=== PATIENT | female | born 1995 | race Caucasian/White ===

== ENCOUNTER 2022-12-20 09:00 | Outpatient (OUT) | payer MEDICAID, SELFPAY ==
--- NOTE | 2022-12-20 09:02 | US_ITS ---
[place] [id number] Patient Name: JADEN VELÁSQUEZ MRN: [id number] date: 1995 Sex: F Assigned Patient Location: Current Patient Location: LAB Accession/Order Number: [id number] Exam Date: 12/20/2022 09:03 Report Date: 12/20/2022 20:14 At the request of: ODILON ARNETT Procedure: US OB transvaginal EXAMINATION: US OB transvaginal HISTORY: MISSED MENSES COMPARISON: No relevant comparison available. FINDINGS: GESTATIONAL SAC: Present and normal appearing x2. YOLK SAC: Present and normal appearing x2. POLE: Present and normal appearing x2. CARDIAC: Present x2. UTERUS: Normal size and appearance. OVARIES: Right: Normal. Left: Normal. CERVIX: 4.1 cm in length and closed. CUL-DE-SAC: Normal. OTHER: None. AGE BY LMP: 9 weeks 1 day ANNAMARIA BY LMP: 07/24/2023 AGE BY US CRL: Baby 1: 9 weeks 0 days Baby 2: 9 weeks 0 days ANNAMARIA BY US CRL: Baby 1: 07/25/2023 Baby 2: 07/25/2023 US/US OB transvaginal IMPRESSION: 1. Live twin intrauterine . Electronically authenticated by: COURTNEY LUGO Date: 12/20/2022 20:14
== END 2022-12-20 09:01 | disposition home or self-care (01) ==
LOC: US 09:00
PROVIDERS: Visit Provider Obstetrics & Gynecology
DX: O30.001 Twin pregnancy, unspecified number of placenta and unspecified number of amniotic sacs, first trimester (principal); Z3A.09 9 weeks gestation of pregnancy
CPT/HCPCS: 76817

== ENCOUNTER 2022-12-20 10:34 | Outpatient (OUT) | payer MEDICAID, SELFPAY ==
[2022-12-20 11:33] LABS: Estimated Average Glucose 88 mg/dL; Glycohemoglobin A1C 4.7 % (4.5-6.2)
[2022-12-20 11:47] LABS: Thyroid Stimulating Hormone 1.226 uIU/mL (0.358-3.740)
[2022-12-20 12:17] LABS: Basophils Percent Auto 0.4 % (0.2-2.0); Eosinophils Absolute Auto 0.1 10^3/uL (0.0-0.7); Eosinophils Percent Auto 0.8 % (0.9-7.0); Hematocrit 39.3 % (36.0-48.0); Hemoglobin 12.6 g/dL (12.0-16.0); Immature Granulocytes Abs Auto 0.03 10^3/uL (0.00-0.03); Immature Granulocytes Pct Auto 0.3 % (0.0-0.5); Lymphocytes Absolute Auto 1.8 10^3/uL (1.2-3.8); Lymphocytes Percent Auto 19.7 % (20.5-60.0); Mean Corpuscular HGB Conc 32.1 g/dL (29.9-35.2); Mean Corpuscular Hemoglobin 28.4 pg (26.7-34.0); Mean Corpuscular Volume 88.5 fL (81.0-99.0); Mean Platelet Volume 10.2 fL (9.5-13.5); Monocytes Absolute Auto 0.6 10^3/uL (0.3-0.8); Monocytes Percent Auto 6.4 % (1.7-12.0); Neutrophils Absolute Auto 6.5 10^3/uL (1.4-6.5); Neutrophils Percent Auto 72.4 % (43.0-75.0); Platelet Count 280 10^3/uL (150-450); Red Blood Count 4.44 10^6/uL (4.20-5.40); Red Cell Distribution Width 13.2 % (11.0-15.0); White Blood Count 8.9 10^3/uL (4.0-11.0)
[2022-12-21 06:10] LABS: Rubella Antibodies, IgG 1.96 index (Immune >0.99)
[2022-12-21 07:08] LABS: HBsAg Screen Negative (Negative); HCV Ab Non Reactive (Non Reactive); HIV Ab/p24 Ag Screen Non Reactive (Non Reactive)
[2022-12-21 10:11] LABS: Rapid Plasma Reagin, Quant Non Reactive titer (NonRea<1:1)
== END 2022-12-20 10:35 | disposition home or self-care (01) ==
LOC: LAB 10:36
PROVIDERS: Visit Provider Obstetrics & Gynecology
DX: O30.001 Twin pregnancy, unspecified number of placenta and unspecified number of amniotic sacs, first trimester (principal); Z3A.09 9 weeks gestation of pregnancy; N92.6 Irregular menstruation, unspecified
CPT/HCPCS: 36415; 76817; 83036; 84443; 85025; 86592; 86762; 86803; 86850; 86900; 86901; 87086; 87340; 87389

== ENCOUNTER 2022-12-26 09:44 | Outpatient (OUT) | payer MEDICAID, SELFPAY | END 2022-12-26 09:45 | disposition home or self-care (01) | LOC: LAB 09:46 | PROVIDERS: Visit Provider Obstetrics & Gynecology | DX: Z36.0 Encounter for antenatal screening for chromosomal anomalies (principal) | CPT/HCPCS: 36415 ==

== ENCOUNTER 2022-12-31 16:17 | Emergency (ER) | payer MEDICAID, SELFPAY ==
[2022-12-31 16:26] VITALS: BP 139/81; PULSE 81; RESP 20; TEMP 36.8; O2SAT 99; BMI 33.2
--- NOTE | 2022-12-31 17:12 | US_ITS ---
The [address] [address] Patient Name: JADEN VELÁSQUEZ MRN: [id number] date: 1995 Sex: F Assigned Patient Location: ER Current Patient Location: ER Accession/Order Number: [id number] Exam Date: 12/31/2022 17:40 Report Date: 12/31/2022 18:51 At the request of: HO BELTRAN Procedure: US OB transvaginal EXAM: US OB transvaginal HISTORY: . , lower abdominal pain . COMPARISON: 12/20/2022 FINDINGS: Transvaginal scanning was performed. There is evidence of a 20 . There are 2 gestational sacs noted. Within one gestational sac there is a yolk sac and pole noted with a heart rate of 167. There appears to be a normal amount of amniotic fluid. Estimated gestational age by today's ultrasound is 10 weeks 5 days. Within the second gestational sac there is a pole and yolk sac noted with a heart rate of 165. As a normal amount of fluid present. Estimated gestational age is 10 weeks 3 days. Right ovary measures 2.3 x 1.7 x 1.4 cm. No masses are noted. Left ovary was not identified. The cervix is closed and measures 4 cm. US/US OB transvaginal IMPRESSION: 1. Twin with twin 8 demonstrating a heart rate of 167 and a estimated gestational age of 10 weeks 5 days. Twin B demonstrates a heart rate of 165 with an estimated gestational age of 10 weeks 3 days. 2. Normal-appearing right ovary. 3. Left ovary was not identified. Electronically authenticated by: JAMEEL ANGELES Date: 12/31/2022 18:51
--- NOTE | 2022-12-31 17:15 | ED.PREGNANC1 ---
HPI - General Chief complaint: Abdominal Pain Stated complaint: issues under 20-weeks Time Seen by Provider: 12/31/22 17:08 Source: patient Mode of arrival: walk-in Limitations: no limitations History of Present Illness HPI Narrative: Patient is A2 female who is about 10 weeks . LMP 10/20/2022. She saw Dr Adames in the office and had an US that showed twin IUP. She now presents with lower abdominal pain - cramping near the pelvis anteriorly - that began about 2 hours ago. No fall or injury. No urinary symptoms. No fever or chills. She took Zofran 8mg orally for nausea and some Tums - she had gastric sleeve surgery previously and gets acid reflux. Of note, she had Cholecystectomy about 3 months ago. Related Data Previous Rx's Medication Instructions Recorded promethazine 25 mg tablet 25 mg PO Q6H PRN nausea and 12/31/22 vomiting #30 tabs Allergies Allergy/AdvReac Type Severity Reaction Status Date / Time No Known Drug Allergies Allergy Verified 12/31/22 16:32 PFSH PFSH Social History Smoking status: Former smoker Exam Narrative Exam Narrative: Nurses notes and vital signs reviewed and patient is not hypoxic. afebrile General: Well-appearing and in no apparent distress. Skin: Warm, dry, no pallor noted. Eye: Pupils are equal, round and EOMI. No scleral icterus. Cardiovascular: Regular Rate and Rhythm without murmur, gallop or rub. Respiratory: No accessory muscle use or respiratory distress. Lungs are clear to auscultation, no wheezing, rales or rhonchi Back: No CVA tenderness Musculoskeletal: normal ROM, no calf or popliteal tenderness, no lower extremity edema/swelling GI: Abdomen is soft, non-distended. Normal bowel sounds. No abdominal masses appreciated. Diffuse suprapubic and lower abdominal tenderness. No adnexal tenderness or masses noted. No tenderness to palpation. No rebound, guarding, or rigidity noted. Neurological: A&O x4. No cranial nerve dysfunction observed. No truncal ataxia. Moves all extremities. Sensation intact. Psychiatric: Cooperative and interactive. Normal mood and affect. Constitutional Vital Signs, click to edit/add: Last Vital Signs Temp 98.2 F 12/31/22 16:26 Pulse 81 12/31/22 16:26 Resp 20 12/31/22 16:26 BP 139/81 12/31/22 16:26 Pulse Ox 99 12/31/22 16:26 O2 Del Method Room Air 12/31/22 16:26 Course Vital Signs Vital signs: Vital Signs Temperature 98.2 F 12/31/22 16:26 Pulse Rate 81 12/31/22 16:26 Respiratory Rate 20 12/31/22 16:26 Blood Pressure 139/81 12/31/22 16:26 Pulse Oximetry 99 12/31/22 16:26 Oxygen Delivery Method Room Air 12/31/22 16:26 Temperature 98.2 F 12/31/22 16:26 Pulse Rate 81 12/31/22 16:26 Respiratory Rate 20 12/31/22 16:26 Blood Pressure 139/81 12/31/22 16:26 Pulse Oximetry 99 12/31/22 16:26 Oxygen Delivery Method Room Air 12/31/22 16:26 MDM - OB/Uterine Contractions MDM Narrative Medical decision making narrative: Approx 10 week female with twin gestation prestns for lower abdominal pain/pelvic pain that began about 2 hours [employer]. Urine obtained and sent for testing. US pelvis obtained. Patient given Tylenol for pain. The US tech and I discussed and she saw twin IUP, normal HR, no bleeding or any other abnormalities. UA negative. Patient informed of results and given reassurance. She was instructed to take Tylenol for pain and call Dr Adames for follow up. She still had some nausea and was given Phenergan in the ED and prescribed the same to take at home. She already has Zofran and was told she could take that at home as well. Tylenol only recommended for the pain. Lab Data Attestation: I reviewed the patient's lab results. Labs: Lab Results 12/31/22 Range/Units 17:14 Urine Color Yellow (YELLOW) Urine Clarity Clear (CLEAR) Urine pH 6.0 (5.0-9.0) Ur Specific [place] >=1.030 A (1.005-1.025) Urine Protein Negative (NEG/TRACE) mg/dL Urine Glucose (UA) Negative (NEGATIVE) mg/dL Urine Ketones Negative (NEGATIVE) mg/dL Urine Occult Blood Negative (NEGATIVE) Urine Nitrite Negative (NEGATIVE) Urine Bilirubin Negative (NEGATIVE) Urine Urobilinogen 0.2 (0.2-1.0) EU/dL Ur Leukocyte Esterase Negative (NEGATIVE) Imaging Data US OB transvag: My impression: discussed with US tech - twin gestation with expected cardiac activity and no abnormalities. Radiologist's impression: Patient Name: JADEN VELÁSQUEZ MRN: [id number] date: 1995 Sex: F Assigned Patient Location: ER Current Patient Location: ER Accession/Order Number: [id number] Exam Date: 12/31/2022 17:40 Report Date: 12/31/2022 18:51 At the request of: HO BELTRAN Procedure: US OB transvaginal EXAM: US OB transvaginal HISTORY: . , lower abdominal pain . COMPARISON: 12/20/2022 FINDINGS: Transvaginal scanning was performed. There is evidence of a 20 . There are 2 gestational sacs noted. Within one gestational sac there is a yolk sac and pole noted with a heart rate of 167. There appears to be a normal amount of amniotic fluid. Estimated gestational age by today's ultrasound is 10 weeks 5 days. Within the second gestational sac there is a pole and yolk sac noted with a heart rate of 165. As a normal amount of fluid present. Estimated gestational age is 10 weeks 3 days. Right ovary measures 2.3 x 1.7 x 1.4 cm. No masses are noted. Left ovary was not identified. The cervix is closed and measures 4 cm. IMPRESSION: 1. Twin with twin 8 demonstrating a heart rate of 167 and a estimated gestational age of 10 weeks 5 days. Twin B demonstrates a heart rate of 165 with an estimated gestational age of 10 weeks 3 days. 2. Normal-appearing right ovary. 3. Left ovary was not identified. Electronically authenticated by: JAMEEL ANGELES Date: 12/31/2022 18:51 Discharge Plan Discharge Chief Complaint: Abdominal Pain Clinical Impression: Twin gestation in first trimester, Abdominal pain affecting Patient Disposition: Home, Self-Care Time of Disposition Decision: 18:52 Prescriptions / Home Meds: New promethazine 25 mg tablet 25 mg PO Q6H PRN (Reason: nausea and vomiting) Qty: 30 0RF Instructions: Abdominal Pain in (ED) Stand Alone Forms: Portal Instructions Referrals: Physician,Non-Staff, MD [Primary Care Provider] - 1 week
[2022-12-31] MEDS: ACETAMINOPHEN 500 MG TABLET 1000 MG PO (17:18)
[2022-12-31 17:53] LABS: Bilirubin Urine NEGATIVE (NEGATIVE); Blood Urine NEGATIVE (NEGATIVE); Clarity Urine CLEAR (CLEAR); Color Urine YELLOW (YELLOW); Glucose Urine UA NEGATIVE (NEGATIVE); Ketones Urine NEGATIVE (NEGATIVE); Leukocyte Esterase Urine NEGATIVE (NEGATIVE); Nitrite Urine NEGATIVE (NEGATIVE); Protein Urine NEGATIVE (NEG/TRACE); Specific Gravity Urine >=1.030 (1.005-1.025); Urobilinogen Urine 0.2 EU/dL (0.2-1.0)
[2022-12-31 17:54] LABS: Urine Microscopic Indicated NO
[2022-12-31] MEDS: PROMETHAZINE HCL 25 MG TABLET PO (19:09)
== END 2022-12-31 19:23 | disposition home or self-care (01) ==
PROVIDERS: Emergency Provider Emergency Medicine
DX: O26.891 Other specified pregnancy related conditions, first trimester (principal); R10.9 Unspecified abdominal pain; O30.001 Twin pregnancy, unspecified number of placenta and unspecified number of amniotic sacs, first trimester; Z3A.10 10 weeks gestation of pregnancy; Z87.891 Personal history of nicotine dependence; Z90.49 Acquired absence of other specified parts of digestive tract
CPT/HCPCS: 76817; 81003; 99284

== ENCOUNTER 2023-02-05 20:21 | Outpatient (REF) | payer MEDICAID, SELFPAY ==
--- OUTSIDE RECORDS SUMMARY | 2023-02-05 20:34 | XMS_ITS | CCD ---
Author Name Unknown Address [address] [place] [address] Organization [facility] Care Team Providers Care Ammunition Specialist Name Role Phone Neo Anderson Unavailable Unavailable Neo Anderson Unavailable Unavailable Jose Maria Santoyo MD, [facility] Primary Care Provider DENA OKEEFEIS E Referring Unavailable JOSE MARIA SANTOYO, STEPHANE Primary Care Unavailabl e SARY CYN Referring Unavailable JOSE MARIA SANTOYO, [facility] Primary Care Unavailabl e IKE ORTIZ Referring Unavailable [facility] Primary Care Unavailabl e Gintalfredo, Ale Unavailable Provider, None Primary Care Unavailable Nuno Werner Attending Unavailable Nuno Werner Admitting Unavailable REQUEST, NONE LISTED Primary Care Unavaila ble WEST, DR JAMEEL Stern Consulting Unavailable WEST, DR JAMEEL Stern Admitting Unavailable WEST, DR JAMEEL Stern Attending Unavailable WEST, DR JAMEEL Stern Consulting Unavailable REQUEST, NONE LISTED Primary Care Unavaila ble WEST, DR JAMEEL Stern Admitting Unavailable WEST, DR JAMEEL Stern Attending Unavailable WEST, DR JAMEEL Stern Attending Unavailable REQUEST, NONE LISTED Primary Care Unavaila ble WEST, DR JAMEEL Stern Consulting Unavailable WEST, DR JAMEEL Stern Admitting Unavailable ZIEBROGERIO, DR COURTNEY Rucker Consulting Unavailable REQUEST, NONE LISTED Primary Care Unavaila ble AUBREY, DR JAMEEL Stern Consulting Unavailable WEST, DR JAMEEL Stern Admitting Unavailable WEST, DR JAMEEL Stern Attending Unavailable WEST, DR JAMEEL Stern Attending Unavailable REQUEST, NONE LISTED Primary Care Unavaila ble WEST, DR JAMEEL Stern Consulting Unavailable WEST, DR JAMEEL Stern Admitting Unavailable ZIEBER, DR COURTNEY Rucker Consulting Unavailable WEST, DR JAMEEL Stern Attending Unavailable REQUEST, NONE LISTED Primary Care Unavaila ble WEST, DR JAMEEL Stern Consulting Unavailable WEST, DR JAMEEL Stern Admitting Unavailable Shields, Ale L Admitting Unavailable Ale Shields Attending Unavailable NO FAMILY, PHYSICIAN Primary Care Unavailable LAURA Shields Attending Provider [phone] Ale Shields Unavailable PATRICIA CURRY Attending Unavailable PATRICIA CURRY Admitting Unavailable MARGOT TOURE Primary Care Unavailable WillowLilia Unavailable MARGOT TOURE Attending Unavailable NIGEL ADAMES Attending Unavailable Margot Toure DO Primary Care Provider [phone] Allergies Allergy Classification Reported Allergen(s) Allergy Type Date of Onset Reaction(s) Facility (1 source) Ibuprofen Drug Allergy 09-19-2021 [facility] Medications Current Medications Medication Drug Class(es) Dates Sig (Normalized) Sig (Original) acetaminophen 325 mg / oxyCODONE hydrochloride 5 mg oral tablet (2 sources) Opioid Agonist Start: 05-16-2021 End: 05-23-2021 take 1 tablet by mouth every six hours as needed for pain oxyCODONE-acetami nophen (PERCOCET) 5-325 MG per tablet Indications: Post-op pain Take 1 tablet by mouth every 6 hours as needed for Pain for up to 7 days. 28 tablet 0 05/16/2021 05/23/2021 Active Start: 05-16-2021 oxyCODONE-acet aminophen (PERCOCET) 5-325 MG per tablet 1 tablet albuterol 0.833 mg/ml / ipratropium bromide 0.167 mg/ml inhalation solution (1 source) Anticholinergic, beta2-Adrenergic Agonist Start: 05-16-2021 ipratropium-albuterol (DUONEB) nebulizer solution 1 ampule amoxicillin 875 mg / clavulanate 125 mg oral tablet (1 source) Penicillin-class Antibacterial Start: 10-12-2022 take 1 tablet by mouth every twelve hours Amoxicillin-Pot Clavulanate 875-125 MG 1 tablet Orally every 12 hrs for 10 day(s) Oct, Active B-12 1000 MCG (1 source) take 1 tablet under the tongue once daily B-12 1000 MCG 1 tablet under the tongue and allow to dissolve Sublingual Once a day Active busPIRone hydrochloride 10 mg oral tablet (8 sources) Start: 06-06-2020 take 1 tablet by mouth three times daily busPIRone (BUSPAR) 10 MG tablet Take 10 mg by mouth 3 times daily 0 06/06/2020 Active take 1 tablet by mouth once sandeep y busPIRone (BUSPAR) 30 mg tablet 1 tablet Orally daily 0 Active BuSpar Active Calcium Carbonate / vitamin D3 (1 source) calcium carbonate/vitamin D3 (CALCIUM WITH VITAMIN D ORAL) Take by mouth. 0 Active calcium chloride 0.0014 meq/ml / potassium chloride 0.004 meq/ml / sodium chloride 0.103 meq/ml / sodium lactate 0.028 meq/ml injectable solution (3 sources) Start: 2021 lactated ringers infusion copper 313 mg drug implant (2 sources) Copper-containing Intrauterine Device Paragard Intrauterin e Copper IUD 1 each by IntraUTERine route once 0 Active cyclobenzaprine hydrochloride 10 mg oral tablet (2 sources) Muscle Relaxant Start: 2021 End: 2021 take 1 tablet by mouth three times daily as needed for muscle spasms cyclobenzaprine (FLEXERIL) 10 MG tablet Take 1 tablet by mouth 3 times daily as needed for Muscle spasms 21 tablet 0 05/16/2021 05/26/2021 Active 12 hr dextromethorphan hydrobromide 30 mg / guaiFENesin 600 mg extended release oral tablet (1 source) Uncompetitive B-nitrrr-Z-aspartate Receptor Antagonist, Sigma-1 Agonist Start: 2021 take 1 tablet by mouth every twelve hours as needed dextromethorphan-guaiFE Nesin (MUCINEX DM) 30-600 mg tablet extended release 12 hr Take 1 tablet by mouth every 12 (twelve) hours as needed (cough and congestion). 28 each 0 01/14/2022 Active dextromethorphan hydrobromide 30 mg / pyrilamine maleate 30 mg oral tablet (1 source) Uncompetitive S-yvdjwl-S-aspartate Receptor Antagonist, Sigma-1 Agonist Start: 2020 take 1 tablet by mouth every eight hours [place] DMT 30-30 MG 1 tablet Orally every 8 hours for 7 days Nov, Active diphenhydrAMINE hydrochloride 25 mg oral capsule (1 source) Histamine-1 Receptor Antagonist take 1 capsule by mouth once daily as needed for sleep diphenhydrAMINE (BENADRYL) 25 mg capsule Take 1 capsule (25 mg total) by mouth nightly as needed for sleep. 0 Active doxylamine succinate 25 mg oral tablet (1 source) Start: 2022 take 1 tablet by mouth once daily as needed for sleep doxylamine (UNISOM) 25 mg tablet Take 1 tablet (25 mg total) by mouth nightly as needed for sleep. 30 tablet 0 01/03/2023 Active 0.4 ml enoxaparin sodium 100 mg/ml prefilled syringe (1 source) Low Molecular Weight Heparin Start: 2021 End: 2021 enoxaparin (LOVENOX) 40 MG/0.4ML injection Inject 0.4 mLs into the skin 2 times daily for 14 days 11.2 mL 0 05/16/2021 05/30/2021 Active famotidine 20 mg oral tablet (3 sources) Histamine-2 Receptor Antagonist Start: 2021 take 1 tablet by mouth in the morning, then take 1 tablet by mouth at bedtime famotidine (PEPCID) 20 mg tablet Take 1 tablet (20 mg total) by mouth in the morning and 1 tablet (20 mg total) before bedtime. 20 tablet 0 01/26/2022 Active Start: 05-16-2021 take 1 tablet by tatiana th twice daily famotidine (PEPCID) 20 MG tablet Take 1 tablet by mouth 2 times daily 60 tablet 0 05/16/2021 Active Start: 05-16-2021 famotidine (PE PCID) tablet 20 mg ferrous sulfate 325 mg oral tablet (3 sources) Start: 07-28-2020 take 1 tablet by mouth once daily at breakfast ferrous sulfate (IRON 325) 325 (65 Fe) MG tablet Indications: Low iron Take 1 tablet by mouth daily (with breakfast) 90 tablet 1 07/28/2020 Active fluticasone propionate 0.05 mg/actuat metered dose nasal spray (3 sources) Corticosteroid Start: 01-14-2022 take 1 spray(s) nasal route in the morning fluticasone propionate (FLONASE) 50 mcg/actuation nasal spray Administer 1 spray into each nostril in the morning. 16 g 0 01/14/2022 Active Start: 09-13-2019 take 1 spray(s) nasa l route once daily Flonase Allergy Relief 50 MCG/ACT 1 spray in each nostril Nasally Once a day for 14 day(s) Nov, Active gabapentin 100 mg oral capsule (1 source) Anti-epileptic Agent Start: 05-16-2021 gabapenti n (NEURONTIN) capsule 100 mg 1 ml heparin sodium, porcine 5000 unt/ml prefilled syringe (2 sources) Unfractionated Heparin, Anti-coagulant Start: 05-16-2021 End: 05-16-2021 heparin (porcine) injection 5,000 Units 1 ml HYDROmorphone hydrochloride 1 mg/ml cartridge (3 sources) Opioid Agonist Start: 05-16-2021 HYDROmorphone (DILAUDID) injection 1 mg Start: 05-16-2021 End: 05-16-2021 HYDROmorphone (DILAUDID) 1 M G/ML injection Start: 05-16-2021 End: 05-16-2021 HYDROmorphone (DILAUDID) inj ection 0.5 mg hydrOXYzine hydrochloride 25 mg oral tablet (7 sources) Antihistamine Start: 04-24-2021 take 1 tablet by mouth three times daily as needed hydrOXYzine (ATARAX) 25 mg tablet Take 1 tablet (25 mg total) by mouth 3 (three) times a day as needed. 0 04/24/2021 Active Start: 03-27-2020 take 1 tablet by tatiana th every eight hours as needed hydrOXYzine (ATARAX) 25 MG tablet Take 25 mg by mouth every 8 hours as needed 0 03/27/2020 Active hydrOXYzine HCl Active Iron (2 sources) Iron Active lactobacillus acidophilus [id number] unt / pectin 100 mg oral tablet (1 source) acidophilus-pect in, citrus 25 million cell -100 mg tablet Take by mouth 3 (three) times a day with meals. 0 Active metFORMIN hydrochloride 500 mg oral tablet (1 source) Biguanide Start: 022 take 1 tablet by mouth twice daily metFORMIN (GLUCOPHAGE) 500 MG tablet Take 500 mg by mouth 2 times daily 0 03/12/2021 Active MULTIVITAMIN ORAL (1 source) MULTIVITAMIN ORA L Take 1 tablet by mouth. 0 Active Multivitamin preparation (3 sources) Multi Vitamin Ac tive nitrofurantoin, macrocrystals 25 mg / nitrofurantoin, monohydrate 75 mg oral capsule (1 source) Nitrofuran Antibacterial Start: take 1 capsule by mouth every twelve hours Macrobid 100 MG 1 capsule with food Orally every 12 hrs for 7 day(s) Jan, Active ondansetron 4 mg disintegrating oral tablet (2 sources) Serotonin-3 Receptor Antagonist Start: 022 take 1 tablet by mouth every eight hours as needed for nausea ondansetron ODT (ZOFRAN ODT) 4 mg disintegrating tablet Dissolve 1 tablet (4 mg total) on tongue every 8 (eight) hours as needed for nausea for up to 10 doses. 10 tablet 0 01/26/2022 Active Start: 05-16-2021 ondansetron (Z OFRAN) injection 4 mg pantoprazole 40 mg delayed release oral tablet (1 source) Proton Pump Inhibitor take 1 tablet by mouth in the morning pantoprazole (PROTONIX) 40 mg EC tablet Take 1 tablet (40 mg total) by mouth in the morning. 0 Active predniSONE 20 mg oral tablet (1 source) Start: 10-13-19 23 take 1 tablet by mouth every twelve hours predniSONE 20 MG 1 tablet Orally bid for 5 day(s) Oct, Active promethazine hydrochloride 25 mg oral tablet (3 sources) Phenothiazine Start: 05-17-19 22 End: 05-25-19 22 take 1 tablet by mouth four times daily as needed for nausea promethazine (PHENERGAN) 25 MG tablet Take 1 tablet by mouth 4 times daily as needed for Nausea 30 tablet 0 05/16/2021 05/24/2021 Active Start: 05-16-2021 promethazine ( PHENERGAN) tablet 25 mg take 1 tablet by tatiana th every six hours as needed for nausea and vomiting promethazine (PHENERGAN) 25 mg tablet Take 1 tablet (25 mg total) by mouth every 6 (six) hours as needed for nausea or vomiting. 0 Active pyridoxine hydrochloride 25 mg oral tablet (1 source) Start: 01-03-2023 take 1 tablet by mouth three times daily as needed pyridoxine, vitamin B6, (B-6) 25 mg tablet Take 1 tablet (25 mg total) by mouth 3 (three) times a day as needed (T.i.d. p.r.n. for nausea and vomiting). 60 tablet 0 01/03/2023 Active 72 hr scopolamine 0.0139 mg/hr transdermal system (1 source) Anticholinergic Start: 05-19-2021 scopolamine (TRANSDERM-SCOP) transdermal patch 1 patch Start: 05-19-2021 scopolamine (T RANSDERM-SCOP) transdermal patch 1 patch 5 ml sodium chloride 9 mg/ml injection (3 sources) Start: 05-16-2021 sodium chlorid e flush 0.9 % injection 5-40 mL Start: 05-16-2021 0.9 % sodium c hloride infusion vitamin b12 0.5 mg oral tablet (1 source) Vitamin B12 take 1 tablet by mouth in the morning cyanocobalamin 500 MCG tablet Take 1 tablet (500 mcg total) by mouth in the morning. 0 Active Zinc (1 source) take 1 tablet by mouth in the morning zinc 50 mg tablet tablet Take 1 tablet (50 mg total) by mouth in the morning. 0 Active zinc gluconate 50 mg oral tablet (1 source) take 1 tablet by mouth every twenty-four hours Zinc 50 MG 1 tablet Orally Once a day Active Completed/Discontinued Medications Medication Drug Class(es) Dates Sig (Normalized) Sig (Original) amoxicillin 875 mg oral tablet (1 source) Penicillin-class Antibacterial Start: 09-13-2019 take 1 tablet by mouth every twelve hours Amoxicillin 875 MG 1 tablet Orally every 12 hrs for 7 days Sep, Not-Taking ceFAZolin (ANCEF) 3000 mg in sterile water 30 mL IV syringe (1 source) Start: 05-16-2021 End: 05-17-2021 ceFAZolin (ANCEF) 3000 mg in sterile water 30 mL IV syringe 1 ml ketorolac tromethamine 30 mg/ml cartridge (1 source) Nonsteroidal Anti-inflammatory Drug, Cyclooxygenase Inhibitor Start: 05-17-2021 End: 05-17-2021 ketorolac (TORADOL) injection 30 mg 2 ml metoclopramide 5 mg/ml prefilled syringe (1 source) Dopamine-2 Receptor Antagonist Start: 05-16-2021 End: 05-16-2021 metoclopramide (REGLAN) injection 10 mg Vit-Fe Fumarate-FA (M-VIT PO) (1 source) End: 05-02-2021 Vit-Fe Fumarate-FA (M-VIT PO) Take 1 tablet by mouth 0 05/02/2021 Discontinued (LIST CLEANUP) valACYclovir 1000 mg oral tablet (1 source) Herpesvirus Nucleoside Analog DNA Polymerase Inhibitor, Herpes Simplex Virus Nucleoside Analog DNA Polymerase Inhibitor, Herpes Zoster Virus Nucleoside Analog DNA Polymerase Inhibitor Start: 02-15-2021 End: 05-02-2021 valACYclovir (VALTREX) 1 g tablet Problems Active Problems Problem Classification Problem Date Documented Da te Episodic/Chronic Anxiety disorders (5 sources) Anxiety; Translations: [Anxiety disorder, unspecified] Onset: 1 06-28-2020 Chronic Biliary tract disease (1 source) Calculus of gallbladder without cholecystitis without obstruction; Translations: [Calculus of gallbladder without cholecystitis without obstruction] Onset: 3 Episodic Chronic obstructive pulmonary disease and bronchiectasis (1 source) Bronchitis, not specified as acute or chronic Episodic Esophageal disorders (4 sources) Gastroesophageal reflux disease without esophagitis; Translations: [Gastro-esophageal reflux disease without esophagitis] Onset: 1 06-28-2020 Chronic Genitourinary symptoms and ill-defined conditions (4 sources) Dysuria; Translations: [Dysuria] Onset: 2 Episodic Immunizations and screening for infectious disease (4 sources) Contact with and (suspected) exposure to other viral communicable diseases; Translations: [Contact with and (suspected) exposure to unspecified communicable disease] Onset: 1 Resolved: 1 Episodic Other endocrine disorders (3 sources) Polycystic ovaries; Translations: [Polycystic ovarian syndrome] Chronic Other endocrine disorders (3 sources) Increased androgen level; 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] Chronic Other nervous system disorders (1 source) Postoperative pain ; Translations: [Other acute postprocedural pain] Episodic Other nutritional; endocrine; and metabolic disorders (1 source) Morbid obesity; Translations: [Morbid (severe) obesity due to excess calories] Onset: 1 09-28-2020 Chronic Other nutritional; endocrine; and metabolic disorders (2 sources) Body mass index 40+ - severely obese; Translations: [Morbid (severe) obesity due to excess calories] Onset: 1 09-28-2020 Chronic Other nutritional; endocrine; and metabolic disorders (3 sources) Obese class II; Translations: [Body mass index (BMI) 39.0-39.9, adult] Chronic Other nutritional; endocrine; and metabolic disorders (3 sources) Obesity; Translations: [Obesity, unspecified] Chronic Other screening for suspected conditions (not mental disorders or infectious disease) (3 sources) Serum testosterone level abnormal; Translations: [Other specified abnormal findings of blood chemistry] Episodic Other upper respiratory infections (2 sources) Acute upper respiratory infection, unspecified; Translations: [Acute sinusitis, unspecified] Onset: 1 Resolved: 1 Episodic Phlebitis; thrombophlebitis and thromboembolism (8 sources) Phlebitis and thrombophlebitis of superficial vessels of right lower extremity; Translations: [Phlebitis and thrombophlebitis of superficial vessels of left lower extremity] Onset: 2 Episodic Residual codes; unclassified (5 sources) Obstructive sleep apnea syndrome; Translations: [Obstructive sleep apnea (adult) (pediatric)] Onset: 1 Chronic Residual codes; unclassified (1 source) Acquired absence of other specified parts of digestive tract; Translations: [Acquired absence of other specified parts of digestive tract] Onset: 3 Episodic Substance-related disorders (4 sources) Smoker; Translations: [Nicotine dependence, unspecified, uncomplicated] Onset: 1 06-28-2020 Chronic Varicose veins of lower extremity (4 sources) Varicose veins of bilateral lower extremities with pain; Translations: [VARICOSE VNS JOVANA LOW EXTREM W/PAIN] Onset: 2 Episodic Past or Other Problems Problem Classification Problem Date Documented Da te Episodic/Chronic Blindness and vision defects (1 source) Astigmatism; Translations: [Unspecified astigmatism, unspecified eye] Onset: 04-26-2020 04-26-2020 Episodic Diabetes mellitus without complication (4 sources) Prediabetes; Translations: [Prediabetes] Onset: 06-28-2020 06-28-2020 Episodic Mood disorders (1 source) Mood disorders Onset: 08-17-2018 08-17-2018 Nutritional deficiencies (5 sources) Serum iron low; Translations: [Iron deficiency] Onset: 09-01-2020 09-01-2020 Episodic Other gastrointestinal disorders (3 sources) History of sleeve gastrectomy; Translations: [Bariatric surgery status] Onset: 05-16-2021 Episodic Other infections; including parasitic (2 sources) Personal history of other infectious and parasitic diseases; Translations: [History of COVID-19] Onset: 11-03-2020 11-03-2020 Episodic Residual codes; unclassified (5 sources) H/O: hypertension; Translations: [Personal history of other complications of , childbirth and the puerperium] Onset: 06-28-2020 06-28-2020 Episodic Screening and history of mental health and substance abuse codes (2 sources) History of clinical finding in subject; Translations: [Personal history of nicotine dependence] Onset: 01-02-2021 01-02-2021 Episodic Unclassified (1 source) Cough R05.9 Unclassified (1 source) Onset: 09-19-2021 09-19-2021 Results Test Name Value Interpretation Reference Range Facility Ultrasound - Officeon 2022 Radiology Study observation (narrative) [facility] HIV 1&2 AB/AG Screen (P24 AG )on 12-20-2022 HIV 1&2 AB/AG Non-Reactive [facility] Hepatitis B surface antigeno n 12-20-2022 Hepatitis B Surface Antigen Negative [facility] No Panel Informationon 12-20 [facility] Rubella IGG immune statuson 12-20-2022 Rubella immune IgG 1.96 [facility] Syphilis Total(Unknown Syphi lis Status)on 12-20-2022 Syphilis Non-Reactive [facility] Ultrasound - Officeon 2022 SEE SCANNED REPORt MANUAL LY TRANSCRIBED RESULTS [facility] COVID + FLU Quick Testingon 10-12-2022 SARS-CoV-2 (COVID-19) RNA BECCA+probe Ql (Unsp spec) negtaive [facility] Other COVID + FLU Quick Testing Negative [facility] Other Basic Metabolic Profon 09-11 Anion gap [Moles/Vol] 9 mmol/L Normal 9-17 [facility] Comment on above: Performed By: #### B MP, CBC, PT #### [facility] [address] [place] [address] Spring Maker: Anthony Aguilar MD Calcium [Mass/Vol] 8.8 mg/dL Normal 8.6-10.4 [facility] Comment on above: Performed By: #### B MP, CBC, PT #### [facility] [address] [place] [phone] Spring Maker: Anthony Aguilar MD Chloride [Moles/Vol] 106 mmol/L Normal 98-107 [facility] Comment on above: Performed By: #### B MP, CBC, PT #### [facility] [address] [place] [phone] Spring Maker: Anthony Aguilar MD CO2 [Moles/Vol] 23 mmol/L Normal 20-31 [facility] Comment on above: Performed By: #### B FIFI, CBC, PT #### [facility] [address] [place] [phone] Spring Maker: Anthony Aguilar MD Creatinine [Mass/Vol] 0.7 mg/dL Normal 0.5-0.9 [facility] Comment on above: Performed By: #### B FIFI, CBC, PT #### [facility] [address] [place] [phone] Spring Maker: Anthony Aguilar MD GFR/1.73 sq M.predicted among non-blacks MDRD (S/P/Bld) [Vol rate/Area] mL/min/{1.73_m2} Normal >60 [facility] Comment on above: Result Comment: These results are not intended for use in patients <18 years of age. eGFR results are calculated without a race factor using the 2020 CKD-EPI equation. Careful clinical correlation is recommended, particularly when comparing to results calculated using previous equations. The CKD-EPI equation is less accurate in patients with extremes of muscle mass, extra-renal metabolism of creatine, excessive creatine ingestion, or following therapy that affects renal tubular secretion. Performed By: #### B MP, CBC, PT #### [facility] [address] [place] [address] [place] [address] Spring Maker: Anthony Aguilar MD Glucose [Mass/Vol] 79 mg/dL Normal 70-99 [facility] Comment on above: Performed By: #### B MP, CBC, PT #### [facility] [address] [place] [phone] Spring Maker: Anthony Aguilar MD Potassium [Moles/Vol] 4.1 mmol/L Normal 3.7-5.3 [facility] Comment on above: Performed By: #### B MP, CBC, PT #### [facility] [address] [place] [phone] Spring Maker: Anthony Aguilar MD Sodium [Moles/Vol] 138 mmol/L Normal 135-144 [facility] Comment on above: Performed By: #### B FIFI, CBC, PT #### [facility] [address] [place] [phone] Spring Maker: Anthony Aguilar MD Urea nitrogen [Mass/Vol] 11 mg/dL Normal 6-20 [facility] Comment on above: Performed By: #### B MP, CBC, PT #### [facility] [address] [place] [phone] Spring Maker: Anthony Aguilar MD CBCon 09-11-2022 Erythrocyte distribution width (RBC) [Ratio] 13.2 % Normal 11.8-14.4 [facility] Comment on above: Performed By: #### B MP, CBC, PT #### [facility] [address] [place] [phone] Spring Maker: Anthony Aguilar MD Hematocrit (Bld) [Volume fraction] 41.6 % Normal 36.3-47.1 [facility] Comment on above: Performed By: #### B MP, CBC, PT #### [facility] [address] [place] [phone] Spring Maker: Anthony Aguilar MD Hemoglobin (Bld) [Mass/Vol] 13.3 g/dL Normal 11.9-15.1 [facility] Comment on above: Performed By: #### B MP, CBC, PT #### [address] [address] Spring Maker: Anthony Aguilar MD MCH (RBC) [Entitic mass] 28.3 pg Normal 25.2-33.5 [facility] Comment on above: Performed By: #### B MP, CBC, PT #### [address] [address] Spring Maker: Anthony Aguilar MD MCHC (RBC) [Mass/Vol] 32.0 g/dL Normal 28.4-34.8 [facility] Comment on above: Performed By: #### B FIFI, CBC, PT #### [address] [address] Spring Maker: Anthony Aguilar MD MCV (RBC) [Entitic vol] 88.5 fL Normal 82.6-102.9 [facility] Comment on above: Performed By: #### B FIFI, CBC, PT #### [address] [address] Spring Maker: Anthony Aguilar MD NRBC Automated 0.0 per 100 WBC Normal 0.0 [facility] Comment on above: Performed By: #### B MP, CBC, PT #### [address] [address] Spring Maker: Anthony Aguilar MD Platelet mean volume (Bld) [Entitic vol] 9.7 fL Normal 8.1-13.5 [facility] Comment on above: Performed By: #### B MP, CBC, PT #### [facility] [address] [place] [phone] Spring Maker: Anthony Aguilar MD Platelets (Bld) [#/Vol] 276 10*3/uL Normal 138-453 [facility] Comment on above: Performed By: #### B MP, CBC, PT #### [address] [address] Spring Maker: Anthony Aguilar MD RBC (Bld) [#/Vol] 4.70 10*6/uL Normal 3.95-5.11 [facility] Comment on above: Performed By: #### B MP, CBC, PT #### [address] [address] Spring Maker: Anthony Aguilar MD WBC (Bld) [#/Vol] 7.4 10*3/uL Normal 3.5-11.3 [facility] Comment on above: Performed By: #### B MP, CBC, PT #### [address] [address] Spring Maker: Anthony Aguilar MD PTon 09-11-2022 INR Coag (PPP) [Relative time] 1.0 {INR} Normal [facility] Comment on above: Result Comment: Therapeutic Range: Moderate Anticoagulant Intensity: INR = 2.0-3.0 High Anticoagulant Intensity: INR = 2.5-3.5 Performed By: #### B MP, CBC, PT #### [address] [address] Spring Maker: Anthony Aguilar MD PT Coag (PPP) [Time] 12.9 s Normal 11.7-14.9 [facility] Comment on above: Performed By: #### B MP, CBC, PT #### [address] [address] Spring Maker: Anthony Aguilar MD Surgical Pathologyon 023 Surgical Pathology (NOTE) Path Number: [id number] -- Diagnosis -- GALLBLADDER, CHOLECYSTECTOMY: -CHRONIC CHOLECYSTITIS WITH CHOLESTEROLOSIS AND CHOLELITHIASIS. Jameel Lawler M.D. Electronically Signed Out luis09/12/2022 Clinical Information Pre-op Diagnosis: GALLSTONES Operative Findings: GALLBLADDER Operation Performed: LAPAROSCOPIC CHOLECYSTECTOMY tm Source of Specimen A: GALLBLADDER Gross Description CESILIA WEEMS Received in formalin is a 7.5 x 4.0 x 3.9 cm intact and distended gallbladder. The serosa is green-tinged and smooth, while the adventitia is finely roughened. There is a brown, speckled yellow and finely trabeculated mucosa with an average wall thickness of 0.2 cm. Within the lumen is brown-green, tenacious bile and multiple yellow, slightly bosselated to rough-surfaced choleliths (0.3 to 0.7 cm). No lesions or periductal lymph nodes are identified. Tool Salvage Worker sections 1c. tm Microscopic Description Microscopic examination performed. Processing Lab: [place] [address] Interpretation Performed at [place] [id number] SURGICAL PATHOLOGY CONSULTATION Patient Name: FINA VELÁSQUEZ [facility] Rec: [id number] [facility] ANATOMIC PATHOLOGY [address] [place], [place] [phone] [facility] Urine Cultureon 02-08-2022 Bacteria identified Cx Nom (U) Reason for Exam Dysuria Urine ORGANISM: Escherichia coli (O:ESCCOL) [place] Count >100,000 Aerobic LISA Charge (NMIC56) ---- SUSCEPTIBILITY --- ORGANISM: O:ESCCOL ANTIBIOTIC INTERPRETATION LISA Amikacin S <16 Amoxacillin/K Clavulanate S <8 Ampicillin S <8 Ampicillin/Sulbactam S <4 Aztreonam S <4 Cefazolin S <2 Cefepime S <2 Ceftazidime S <1 Ceftazidime/Avibactam S <4 Ceftolozane/Tazobacta m S <2 Ceftriaxone S <1 Cefuroxime S <4 Ciprofloxacin S <0.25 Ertapenem S <0.5 Gentamicin S <2 Levofloxacin S <0.5 Meropenem S <1 Meropenem/Vaborbactam S <2 Nitrofurantoin S <32 Piperacillin/Tazobact am S <8 Tetracycline S <4 Tobramycin S <2 Trimethoprim/Sulfamet hoxazole S <0.5 S = SUSCEPTIBLE I = INTERMEDIATE R = RESISTANT BLANK = DATA NOT AVAILABLE, OR DRUG NOT ADVISABLE OR TESTED R* = RESISTANCE DUE TO EXTENDED SPECTRUM BETA-LACTAMASES ESBL = EXTENDED SPECTRUM BETA-LACTAMASE TFG = THYMIDINE-DEPENDENT STRAIN ALIN = BETA-LACTAMASE POSITIVE IB = INDUCIBLE BETA-LACTAMASE. APPEARS IN PLACE OF 'S' WITH SPECIES KNOWN TO POSSESS INDUCIBLE BETA-LACTAMASES. POTENTIALLY THEY MAY BECOME RESISTANT TO ALL B-LACTAM DRUGS. PERFORMED BY: [place] [address] PATHOLOGIST SUPERVISOR [employer] SAMIRA WEN M.D. [facility] Comment on above: Performed By: #### C UU #### [address] VC CONSULT FOLLOWUPon 2021 VC CONSULT FOLLOWUP Patient: FINA VELÁSQUEZ Exam Date: 01/08/2022 : 1995 Gender:F Ordering : DR JAMEEL BURGOS M.D. Admission #: [id number] Family : Order #: [id number] CLICK HERE TO VIEW EXAM RADIOLOGY REPORT PROCEDURE: VEIN CENTER CONSULTATION FOLLOWUP VEIN CENTER - OFFICE VISIT FOLLOW UP COMPARISON: VC CONSULT FOLLOWUP, 11/28/2021. PROGRESS NOTES: The patient reports that mild tenderness within left popliteal fossa. Overall improvement in bilateral leg symptoms. There has been interval reduction in varicosities. The patient has followed our recommendations to walk 20-30 minutes once or twice per day since the procedure. Physical exam demonstrates decrease in varicosities of the bilateral legs. Persistent varicosities are identified along the legs bilaterally. Review of the ultrasound performed the same day demonstrates occlusive thrombus extending throughout the treated vein, see separate report, consistent with a successful ablation. No thrombus extending into or beyond the saphenofemoral junction. Patient's insurance did not approve any additional treatments with endovenous laser ablation or microfoam chemical ablation therefore patient will hold off on treatment of remaining dilated, incompetent small saphenous veins bilaterally and branch saphenous varicosities. No additional treatments will be performed at this time. The patient was advised to follow-up with us if left popliteal fossa tenderness persists. IMPRESSION: 1. Successful ablation of the right great saphenous vein 2. Persistent incompetent veins and lower extremity symptoms PLAN: Patient will continue to wear compression stockings, and will return for additional treatment as symptoms progress and with approval of treatment by insurance company. Nurse notes, history and physical were reviewed and confirmed, see attached forms. The nurse was present throughout the physical exam and consultation Dictated by: Courtney Hinton M.D. on 01/08/2022 at 10:05 Approved by: Courtney Hinton M.D. on 01/08/2022 at 10:10 Normal [facility] VC EXT VENOUS RT LIMITEDon 1 03-10-2021 VC EXT VENOUS RT LIMITED Patient: FINA VELÁSQUEZ Exam Date: 01/08/2022 : 1995 Gender:F Ordering : DR JAMEEL BURGOS M.D. Admission #: [id number] Family : Order #: [id number] CLICK HERE TO VIEW EXAM RADIOLOGY REPORT PROCEDURE: VEIN CENTER EXTREMITY VENOUS RIGHT LIMITED COMPARISON: None. INDICATIONS: Phlebitis of superficial veins of lower extremity I80.01 TECHNIQUE: Lower extremity kenyon scale and Duplex Doppler evaluation of the deep venous system from the inguinal ligament through the calf veins. FINDINGS: REGION: Right lower extremity. THROMBI: Negative for DVT. Heat induced thrombus visualized 2.5cm from the SFJ. The heat induced thrombus extends from groin to proximal calf and is patent at mid calf, below the area of insert. COMPRESSIBILITY: Non-compressible segments. FLOW: Areas of no flow. OTHER: CONCLUSION: 1. Successful post ablation occlusion of right great saphenous vein. Dictated by: Courtney Hinton M.D. on 01/08/2022 at 10:04 Approved by: Courtney Hinton M.D. on 01/08/2022 at 10:05 Normal [facility] VC ENDOVENOUS ABL 1ST V RTon 12-31-2021 VC ENDOVENOUS ABL 1ST V RT Patient: FINA VELÁSQUEZ Exam Date: 12/31/2021 : 1995 Gender:F Ordering : DR JAMEEL BURGOS M.D. Admission #: [id number] Family : Order #: [id number] CLICK HERE TO VIEW EXAM RADIOLOGY REPORT PROCEDURE: VEIN CENTER ENDOVENOUS ABLATION FIRST VEIN RIGHT GREAT SAPHENOUS VEIN COMPARISON: None. INDICATIONS: Pain co-occurrent and due to varicose veins of bilateral legs I83.813 OPERATIVE REPORT: The risks and benefits of the procedure had been previously discussed, and were rediscussed at length. Informed written consent was obtained by me and Christopher Zavala assisted. Time out procedure was performed. The right lower extremity was prepared and draped in the usual sterile fashion to allow knee flexion in the sterile field. Duplex ultrasound probe was draped in a sterile cover, sterile transmission gel was used. Venous mapping was performed with the areas of dilation and large tributaries marked. The total length was 46 cm from the entry mid calf to 3 cm below the saphenofemoral junction. The diameter of the greater saphenous vein ranged from 5-9 mm. A 30 gauge needle and 1% buffered lidocaine was used to anesthetize the entry site. A 4 mm incision was made with a scalpel and the saphenous vein was entered percutaneously under direct ultrasound guidance with a micropuncture set, a single stick was successful in gaining access. A micro-guide wire was inserted and the needle removed. A micro-set including a dilator was inserted over the microwire and the needle and dilator were removed. A 0.018 guide wire was inserted through the micro-set and threaded through the saphenous vein to the saphenofemoral junction. The dilator was removed and an introducer sheath was inserted over the wire until the end of the sheath entered the saphenofemoral junction. The dilator and wire were removed and the 600 micron fiber was introduced and placed and positioned so that it extended beyond the sheath and was 3 cm peripheral to the saphenofemoral femoral junction. Final position of the fiber was determined by ultrasound guidance and duplex imaging. Tumescent anesthetic was delivered by ultrasound guidance. 225 cc of fluid was delivered along the entire course of the saphenous vein. The solution consisted of 500 cc of normal saline with 20mL of 1% lidocaine and 10 mL of sodium bicarbonate. A final positioning check was made. The energy source was turned on by means of the foot pedal and the fiber and sheath were withdrawn. The total number of Joules delivered was 2091. The laser was active for 261 seconds under continuous pulse, average laser use of 8 J. Laser start time 10:56 a.m. December 31, 2021. Laser stop time 11:02 a.m. December 31, 2021 A duplex ultrasound revealed compressibility and flow at the saphenofemoral junction immediately after the procedure. Hemostasis at the access site was achieved. The skin incision of the saphenous vein was closed with a 4 x 4. A compression stocking was applied. Postop instructions were given. A follow up appointment was recommended and scheduled. The patient tolerated the procedure well and was discharged in good condition. CONCLUSION: 1. Technically successful endovenous laser ablation of the right great saphenous vein. Dictated by: Jameel Burgos MD on 12/31/2021 at 11:05 Approved by: Jameel Burgos MD on 12/31/2021 at 11:06 Normal [facility] ED Clinical Summaryon 2021 ED Clinical Summary [facility] ? Urgent Care [address] [place] [address] [id number] Clinical Summary PERSON INFORMATION Name: VERNON VELÁSQUEZ Age: 26 Years Sex: FEMALE : 1995 MRN: Acct#: Visit Reason: OTTERBEIN PHYSICAL Arrival: 11/28/2021 10:39:56 Discharge: 11/28/2021 10:59:00 LOS: 000 00:20 Check In: 11/28/2021 10:39:56 Checkout: 11/28/2021 10:59:00 Address: [address] [place] [address] PCP: Provider, None PROVIDER INFORMATION VITALS INFORMATION Vital Sign Triage Latest Temperature Tympanic Temperature Temporal Artery Pulse Rate O2 Sat Respiratory Rate Blood Pressure / / MEDICAL INFORMATION Medications Given: Allergy Information: No known allergies PHYSICIAN DOCUMENTATION DISCHARGE INFORMATION: Discharge Disposition: Eloped Discharge Location: PATIENT EDUCATION INFORMATION Instructions: Follow-Up: DIAGNOSIS: Patient Understands: Comment: Normal [facility] ED Patient Summaryon 022 ED Patient Summary [facility] ? Urgent Care [address] [place] [address] [phone] PATIENT DISCHARGE INSTRUCTIONS Patient Information Name: VERNON VELÁSQUEZ Age: 26 Years Date of : 1995 Reason For Visit: OTTERBEIN PHYSICAL Arrival Time: 11/28/2021 10:39:56 Primary Care Physician: Provider, None Attending Physician: Nuno Bradshaw Comment: Patient Education Medication Information: The exam and treatment you received today in the [facility] Emergency Department were for an urgent problem and are not intended as complete care. It is important for you to follow up with a doctor, nurse practitioner, or physician?s inside sales assistant for ongoing care. If your symptoms become worse or you do not improve as expected and you are unable to reach your usual health care provider, you should return to the Emergency Department, we are available 24 hours a day. For those patients who have received Radiology results, the interpretation of your X-ray as given to you by our Emergency Department physician is only a preliminary report. The Radiologist will review your films and if there is a change in the diagnosis you will be notified by phone. Please make sure you have provided a working phone number so we can reach you if necessary. In the event that you had a lab culture while you were a patient in the Emergency Department, you will be notified by phone if there is a need to change your antibiotic. Please make sure you have provided a working phone number so we can reach you if necessary. [facility] Emergency Department has provided you with a complete list of medications post discharge. Please inform your manufacturing process technician/provider of your visit and for further instruction on these medications. Any specific questions regarding your chronic medications and dosages should be discussed with your primary care physician(s) and/or pharmacist. Visit Information Visit Diagnosis: Diagnoses This Visit No Visit Diagnoses Documented If you received any narcotics, sedation, or any other medication that causes drowsiness for the next 24 hours, unless otherwise directed: ? Do not drive a car. ? Do not operate machinery such as power tools, lawn mowers, drills, sewing machines, or stoves ? Avoid alcoholic beverages and drugs for allergies, nerves, or sleep ? Do not make important personal or business decisions or sign any legal documents Reason for Visit: Allergies: Substance Reaction Symptoms Type Comments No known allergies Drug Vital Signs: Vitals and Measurements this Visit (last charted value for your 11/28/2021 visit) No vitals and measurements documented Problems List: Problem Onset Comments Anxiety Major Tests and Procedures: The following procedures and tests were performed during your ED visit. Laboratory Radiology Cardiology Viruses or Bacteria What?s got you sick? Antibiotics only treat bacterial infections. Viral illnesses cannot be treated with antibiotics. When an antibiotic is not prescribed, ask your healthcare professional for tips on how to relieve symptoms and feel better. Usual Cause Illness Viruses Bacteria Antibiotic Needed Cold/Runny Nose NO Bronchitis/Chest Cold (in otherwise healthy children and adults) NO Whooping Cough Yes Flu NO Strep Throat Yes Sore Throat (except strep) NO Fluid in the middle ear (otitis media with effusion) NO Urinary Tract Infection Yes Antibiotics Aren?t Always the Answer www.cdc.gov/getsmart GET SMART Know When Antibiotics Work [place] Department of Health and Human Services Centers for Disease Control and Prevention October 2013 [facility] VC CONSULT FOLLOWUPon 2021 VC CONSULT FOLLOWUP Patient: FINA VELÁSQUEZ Exam Date: 11/28/2021 : 1995 Gender:F Ordering : DR JAMEEL BURGOS M.D. Admission #: [id number] Family : Order #: [id number] CLICK HERE TO VIEW EXAM RADIOLOGY REPORT PROCEDURE: VEIN CENTER CONSULTATION FOLLOWUP VEIN CENTER - OFFICE VISIT FOLLOW UP COMPARISON: None. PROGRESS NOTES: The patient reports mild tenderness within the left leg and mild bruising which has been improving. There has been interval reduction in varicosities. The patient has followed our recommendations to walk 20-30 minutes once or twice per day since the procedure. Physical exam demonstrates scattered areas of mild bruising. No erythema or infection. Persistent varicosities are identified along the legs bilaterally. Review of the ultrasound performed the same day demonstrates occlusive thrombus extending throughout the treated vein, see separate report, consistent with a successful ablation. No thrombus extending into or beyond the saphenofemoral junction. The patient expressed a desire to proceed with treatment of remaining incompetent saphenous veins and branch saphenous varicosities. The patient was informed that treatment was a process and would require several procedures/sessions. IMPRESSION: 1. Successful ablation of the left great saphenous vein 2. Persistent incompetent veins and bilateral lower extremity symptoms PLAN: Endovenous laser ablation of right great saphenous vein will be performed next. Nurse notes, history and physical were reviewed and confirmed, see attached forms. The nurse was present throughout the physical exam and consultation Dictated by: Courtney Hinton M.D. on 11/28/2021 at 09:45 Approved by: Courtney Hinton M.D. on 11/28/2021 at 10:04 Normal [facility] VC EXT VENOUS LT LIMITEDon 1 VC EXT VENOUS LT LIMITED Patient: FINA VELÁSQUEZ Exam Date: 11/28/2021 : 1995 Gender:F Ordering : DR JAMEEL BURGOS M.D. Admission #: [id number] Family : Order #: [id number] CLICK HERE TO VIEW EXAM RADIOLOGY REPORT PROCEDURE: VEIN CENTER EXTREMITY VENOUS LEFT LIMITED COMPARISON: None. INDICATIONS: Phlebitis and thrombophlebitis of superficial veins of left lower extremity I80.02 TECHNIQUE: Lower extremity kenyon scale and Duplex Doppler evaluation of the deep venous system from the inguinal ligament through the calf veins. FINDINGS: REGION: Left lower extremity. THROMBI: Negative for DVT. Heat-induced thrombus in left GSV 7.0 mm from SFJ and extends to the mid lower leg. COMPRESSIBILITY: Non-compressible segments. FLOW: Areas of no flow. OTHER: Multiple large varicosities remain patent. CONCLUSION: 1. Successful post ablation occlusion of the left great saphenous vein. Dictated by: Courtney Hinton M.D. on 11/28/2021 at 09:36 Approved by: Courtney Hinton M.D. on 11/28/2021 at 09:45 Normal [facility] VC ENDOVENOUS ABL 1ST V LTon 11-22-2021 VC ENDOVENOUS ABL 1ST V LT Patient: FINA VELÁSQUEZ Exam Date: 11/22/2021 : 1995 Gender:F Ordering : DR JAMEEL BURGOS M.D. Admission #: [id number] Family : Order #: [id number] CLICK HERE TO VIEW EXAM RADIOLOGY REPORT PROCEDURE: VEIN CENTER ENDOVENOUS ABLATION FIRST VEIN LEFT GREAT SAPHENOUS VEIN COMPARISON: VC VENOUS REFLUX JOVANA LMT, 10/17/2021. INDICATIONS: Pain co-occurrent and due to varicose veins of bilateral legs I83.813 OPERATIVE REPORT: The risks and benefits of the procedure had been previously discussed, and were rediscussed at length. Informed written consent was obtained by and Christopher villar. Time out procedure was performed. The left lower extremity was prepared and draped in the usual sterile fashion to allow knee flexion in the sterile field. Duplex ultrasound probe was draped in a sterile cover, sterile transmission gel was used. Venous mapping was performed with the areas of dilation and large tributaries marked. The total length was 56 cm from the entry 12 cm above the medial malleolus to 3 cm below the saphenofemoral junction. The diameter of the greater saphenous vein ranged from 4-11 mm. A 30 gauge needle and 1% buffered lidocaine was used to anesthetize the entry site. A 4 mm incision was made with a scalpel and the saphenous vein was entered percutaneously under direct ultrasound guidance with a micropuncture set, a single stick was successful in gaining access. A micro-guide wire was inserted and the needle removed. A micro-set including a dilator was inserted over the microwire and the needle and dilator were removed. A 0.018 guide wire was inserted through the micro-set and threaded through the saphenous vein to the saphenofemoral junction. The dilator was removed and an introducer sheath was inserted over the wire until the end of the sheath entered the saphenofemoral junction. The dilator and wire were removed and the 600 micron fiber was introduced and placed and positioned so that it extended beyond the sheath and was 3 cm peripheral to the saphenofemoral femoral junction. Final position of the fiber was determined by ultrasound guidance and duplex imaging. Tumescent anesthetic was delivered by ultrasound guidance. 350 cc of fluid was delivered along the entire course of the saphenous vein. The solution consisted of 500 cc of normal saline with 20mL of 1% lidocaine and 10 mL of sodium bicarbonate. A final positioning check was made. The energy source was turned on by means of the foot pedal and the fiber and sheath were withdrawn. The total number of Joules delivered was 2646 The laser was active for 350 seconds under continuous pulse, average laser use of 8 J. Laser start time November 22, 2021. Laser stop time November 22, 2021 A duplex ultrasound revealed compressibility and flow at the saphenofemoral junction immediately after the procedure. Hemostasis at the access site was achieved. The skin incision of the saphenous vein was closed with a 4 x 4. A compression stocking was applied. Postop instructions were given. A follow up appointment was recommended and scheduled. The patient tolerated the procedure well and was discharged in good condition. CONCLUSION: 1. Technically successful endovenous laser ablation of the left great saphenous vein. Dictated by: Jameel Burgos MD on 11/22/2021 at 09:00 Approved by: Jameel Burgos MD on 11/22/2021 at 09:04 Normal [facility] VC COMP CONSULTATIONon 10-17 VC COMP CONSULTATION Patient: FINA VELÁSQUEZ Exam Date: 10/17/2021 : 1995 Gender:F Ordering : DR JAMEEL BURGOS M.D. Admission #: [id number] Family : Order #: [id number] CLICK HERE TO VIEW EXAM RADIOLOGY REPORT PROCEDURE: VEIN CENTER CONSULTATION VEIN CENTER - OFFICE VISIT INITIAL COMPARISON: None. PROGRESS NOTES: [age] year old female who presents with a 10 year history of bulging, dilated veins, leg pain and muscle cramping, stinging. The patient's left leg symptoms are worse than the right. There has been a progression of symptoms. This increases with prolonged standing which the patient does for her job. The patient describes an improvement with rest and elevation. The patient denies any signs and symptoms to suggest arterial ischemia. The patient describes a family history varicose veins in mother and grandmother. The patient has drinking and smoking history of occasional alcohol consumption. Patient has a past medical history significant for gastroesophageal reflux disease, obesity, gastric sleeve procedure. The patient denies a history of deep venous thrombus or pulmonary embolus. See separate history and physical for medication list. No prior treatment for varicose or spider veins. Current use of compression stockings. After review of nurse notes, history and physical exam I discussed at length the pathophysiology of venous hypertension and possible treatments, therapies and strategies available. We discussed at length the importance of elevating the lower extremities above the level of the heart, increased physical activity and compression stocking use. Ultrasound venous reflux study performed today was discussed at length with the patient. The report demonstrates abnormally dilated and incompetent bilateral great saphenous vein, bilateral small saphenous vein, and numerous branch saphenous varicosities bilaterally.. PHYSICAL EXAM: The right leg demonstrates superficial varicosities, no significant spider veins, no ulceration, no edema, no skin discoloration. The left leg demonstrates superficial varicosities, no significant spider veins, no ulceration, no edema, no skin discoloration. Both thighs, legs and feet were symmetrically warm to the touch. Good posterior tibial and dorsalis pedis pulses were present bilaterally. IMPRESSION: 1. Bilateral lower extremity venous insufficiency 2. Bilateral lower extremity varicose veins 3. No significant lower extremity subcutaneous edema 4. No flow significant arterial disease 5. CEAP: C2, EC, AP, MA PLAN: 1. Continued use of compression stockings 2. Elevated legs and increased physical activity symptomatic relief 3. Endovenous laser therapy left GSV, right GSV, left SSV, right SSV, bilateral microfoam chemical ablation of branch saphenous varicosities. Nurse notes, history and physical were reviewed and confirmed, see attached forms. The nurse was present throughout the physical exam and consultation Dictated by: Courtney Hinton M.D. on 10/17/2021 at 12:34 Approved by: Courtney Hinton M.D. on 10/17/2021 at 12:46 Normal [facility] Basic Metabolic Panelon 04-0 Anion gap [Moles/Vol] 8 mmol/L Low 9 - 17 mmol/L [facility] Calcium [Mass/Vol] 8.6 mg/dL 8.6 - 10. 4 mg/dL [facility] Chloride [Moles/Vol] 106 mmol/L 98 - 107 mmol/L [facility] CO2 [Moles/Vol] 23 mmol/L 20 - 31 mmol/L [facility] Creatinine [Mass/Vol] 0.67 mg/dL 0.50 - 0.90 mg/dL [facility] GFR >60 >60 mL/min [facility] GFR Non- >60 >60 mL/min [facility] GFR/1.73 sq M.predicted MDRD (S/P/Bld) [Vol rate/Area] [facility] Comment on above: Average GFR for 20-2 9 years old: 116 mL/min/1.73sq m Chronic Kidney Disease: <60 mL/min/1.73sq m Kidney failure: <15 mL/min/1.73sq m eGFR calculated using average adult body mass. Additional eGFR calculator available at: http://www.Helpa.Imagistx/multiple_crcl_2012.htm Glucose [Mass/Vol] 83 mg/dL 70 - 99 mg/dL [facility] Interpretation and review of laboratory results Abnormal [facility] Potassium [Moles/Vol] 3.9 mmol/L 3.7 - 5.3 mmol/L [facility] Sodium [Moles/Vol] 137 mmol/L 135 - 144 mmol/L [facility] Urea nitrogen (BldV) [Mass/Vol] 7 mg/dL 6 - 20 mg/dL [facility] CBCon 05-17-2021 Hematocrit (Bld) [Volume fraction] 34.4 % Low 36.3 - 47.1 % [facility] Hemoglobin.gastroin testinal spec 1 Ql (Stl) 11.0 g/dL Low 11.9 - 15.1 g/dL [facility] Interpretation and review of laboratory results Abnormal [facility] MCH (RBC) [Entitic mass] 27.2 pg 25.2 - 33.5 pg [facility] MCHC (RBC) [Mass/Vol] 32.0 g/dL 28.4 - 34.8 g/dL [facility] MCV (RBC) [Entitic vol] 85.1 fL 82.6 - 102.9 fL [facility] NRBC Automated 0.0 0.0 per 100 WBC [facility] Platelet distribution width (Bld) [Ratio] 14.1 % 11.8 - 14.4 % [facility] Platelet mean volume (Bld) [Entitic vol] 10.1 fL 8.1 - 13.5 fL [facility] Platelets (Bld) [#/Vol] 302 10*3/uL [facility] RBC (Bld) [#/Vol] 4.04 10*6/uL 3.95 - 5.1 1 m/uL [facility] WBC (Bld) [#/Vol] 13.7 10*3/uL High [facility] SURGICAL PATHOLOGY REPORTon 05-17-2021 Surgical Pathology Report -- Diagnosis -- Stomach, gastric remnant , robotic laparoscopic sleeve gastrectomy: Viable segment of stomach with lamina propria acute hemorrhage and minimal chronic inflammation. Lloyd Tyson. Electronically Signed Out sf/05/17/2021 Clinical Information Pre-op Diagnosis: MORBID OBESITY, OBSTRUCTIVE SLEEP APNEA Operative Findings: GASTRIC REMNANT Operation Performed: XI ROBOTIC LAPAROSCOPIC SLEEVE, EGD Source of Specimen A: GASTRIC REMNANT Gross Description FINA VELÁSQUEZ, GASTRIC REMNANT 17.0 x 4.5 x 2.5 cm partial stomach. The serosa has a localized area of dusky purple discoloration and is smooth. There is little attached adipose tissue. The mucosa is arranged in the usual pink-rios rugal folds with no lesions identified. No lymph nodes are identified in either the attached adipose tissue or the separate 4.0 x 2.0 x 0.5 cm piece of adipose tissue. [employer] Worker sections 1cs. tm Microscopic Description 1 H&E reviewed. Microscopic examination performed. SURGICAL PATHOLOGY CONSULTATION Patient Name: FINA VELÁSQUEZ [facility] Rec: [id number] Path Number: [id number] [facility] ANATOMIC PATHOLOGY [address] [place] [id number] [employer] Basic Metabolic Panelon 04-0 Anion gap [Moles/Vol] 10 mmol/L 9 - 17 mmol/L [facility] Calcium [Mass/Vol] 8.7 mg/dL 8.6 - 10. 4 mg/dL [facility] Chloride [Moles/Vol] 105 mmol/L 98 - 107 mmol/L [facility] CO2 [Moles/Vol] 23 mmol/L 20 - 31 mmol/L [facility] Creatinine [Mass/Vol] 0.75 mg/dL 0.50 - 0.90 mg/dL [facility] GFR >60 >60 mL/min [facility] GFR Non- >60 >60 mL/min [facility] GFR/1.73 sq M.predicted MDRD (S/P/Bld) [Vol rate/Area] [facility] Comment on above: Average GFR for 20-2 9 years old: 116 mL/min/1.73sq m Chronic Kidney Disease: <60 mL/min/1.73sq m Kidney failure: <15 mL/min/1.73sq m eGFR calculated using average adult body mass. Additional eGFR calculator available at: http://www.Helpa.Imagistx/multiple_crcl_2011.htm Glucose [Mass/Vol] 132 mg/dL High 70 - 99 mg/dL [facility] Interpretation and review of laboratory results Abnormal [facility] Potassium [Moles/Vol] 3.5 mmol/L Low 3.7 - 5.3 mmol/L [facility] Sodium [Moles/Vol] 138 mmol/L 135 - 144 mmol/L [facility] Urea nitrogen (BldV) [Mass/Vol] 10 mg/dL 6 - 20 mg/dL [facility] CBC without Diffon Hematocrit (Bld) [Volume fraction] 38.8 % 36.3 - 47.1 % [facility] Hemoglobin.gastroin testinal spec 1 Ql (Stl) 12.6 g/dL 11.9 - 15.1 g/dL [facility] Interpretation and review of laboratory results Abnormal [facility] MCH (RBC) [Entitic mass] 27.2 pg 25.2 - 33.5 pg [facility] MCHC (RBC) [Mass/Vol] 32.5 g/dL 28.4 - 34.8 g/dL [facility] MCV (RBC) [Entitic vol] 83.8 fL 82.6 - 102.9 fL [facility] NRBC Automated 0.0 0.0 per 100 WBC [facility] Platelet distribution width (Bld) [Ratio] 13.9 % 11.8 - 14.4 % [facility] Platelet mean volume (Bld) [Entitic vol] 9.8 fL 8.1 - 13.5 fL [facility] Platelets (Bld) [#/Vol] 340 10*3/uL [facility] RBC (Bld) [#/Vol] 4.63 10*6/uL 3.95 - 5.1 1 m/uL [facility] WBC (Bld) [#/Vol] 15.0 10*3/uL High [facility] POC Glucose Fingerstickon Glucose [Mass/Vol] 77 mg/dL 65 - 105 mg/dL [facility] POCT urine pregnancyon 05-16 Beta HCG ( test) Ql (U) Negative NEGATIVE [facility] Comment on above: Specimens with hCG l evels near the threshold of the test (25 mIU/mL) may give a negative or indeterminate result. In such cases, another test should be performed with a new specimen in 48-72 hours. If early is suspected clinically in this setting, correlation with quantitative serum b-hCG level is suggested. [facility] [id number] 05-15-2021 SARS-CoV-2 (COVID-19) RNA BECCA+probe Ql (Unsp spec) Normal [facility] Comment on above: Performed By: #### C OVID #### [facility] [address] [place], [place] [id number] Spring Maker: Anthony Aguilar MD [facility] [address] [place] [address] [place] [address] Spring Maker: Jameel Lawler MD SARS-CoV-2 (COVID-19) RNA BECCA+probe Ql (Unsp spec) Not detected Normal NOTDET [facility] Comment on above: Result Comment: The specimen is NEGATIVE for SARS-CoV-2, the novel coronavirus associated with COVID-19. A negative result does not rule out COVID-19. Lucrecia SARS-CoV-2 for use on the Lucrecia Disconnect0/8800 Systems is a real-time RT-PCR test intended for the qualitative detection of nucleic acids from SARS-CoV-2 in clinician-collected nasal, nasopharyngeal, and oropharyngeal swab specimens from individuals who meet COVID-19 clinical and/or epidemiological criteria. Lucrecia SARS-CoV-2 is for use only under Emergency Use Authorization (EUA) in laboratories certified under Clinical Laboratory Improvement Amendments of 1988 (CLIA), 42 U.S.C. ?263a, that meet requirements to perform high or moderate complexity tests. An individual without symptoms of COVID-19 and who is not shedding SARS-CoV-2 virus would expect to have a negative (not detected) result in this assay. Fact sheet for Healthcare Providers: https://www.fda.gov/media/960265/download Fact sheet for Patients: https://www.fda.gov/media/227138/download METHODOLOGY: RT-PCR Performed By: #### C OVID #### [facility] [address] [place], [place] [id number] Spring Maker: Anthony Aguilar MD [facility] [address] [place] [address] Spring Maker: Jameel Lawler MD [id number] 05-14-2021 SARS-CoV-2 (COVID-19) RNA BECCA+probe Ql (Unsp spec) .NASOPHARYNGEAL SWAB Normal [facility] Comment on above: Performed By: #### C OVID #### [facility] [address] [place], [place] [id number] Spring Maker: Anthony Aguilar MD [facility] [address] [place] [address] Spring Maker: Jameel Lawler MD Nicotine, Bloodon 05-05-2021 [id number] <2 ng/mL [facility] Cotinine <2 ng/mL [facility] Nicotine <2 ng/mL [facility] Comment on above: (NOTE) Consistent with abstinence from nicotine-containing products for at least 1 week. INTERPRETIVE INFORMATION: Nicotine and Metabolites, Serum or Plasma, Quantitative Methodology: Quantitative Liquid Chromatography-Tandem Mass Spectrometry Positive cutoff: 2 ng/mL For medical purposes only; not valid for forensic use. This test is designed to evaluate recent use of nicotine-containing products. Passive and active exposure cannot be discriminated definitively, although a cutoff of 10 ng/mL cotinine is frequently used for surgery qualification purposes. For smoking cessation programs or compliance testing, the absence of expected drug(s) and/or drug metabolite(s) may indicate non-compliance, inappropriate timing of specimen collection relative to drug administration, poor drug absorption, or limitations of testing. This test cannot distinguish between use of tobacco and purified nicotine products. The concentration value must be greater than or equal to the cutoff to be reported as positive. This test was developed and its performance characteristics determined by [facility]. It has not been cleared or approved by the US Food and Drug Administration. This test was performed in a CLIA certified laboratory and is intended for clinical purposes. Performed By: [facility] [address] [place] [id number] [employer]cher Enameling: Yara Rodriguez MD [facility] EKG 12 LeadOrdered By: Diaz Conway on 05-03-2021 Atrial Rate 72 BPM [facility] Work Phone: P [place] 45 degrees [facility] Work Phone: P-R Interval 142 ms [facility] Work Phone: Q-T Interval 376 ms [facility] Work Phone: QRS Duration 100 ms [facility] Work Phone: QTc Calculation (Bazett) 411 ms [facility] Work Phone: R [place] 22 degrees [facility] Work Phone: T [place] 32 degrees [facility] Work Phone: Ventricular Rate 72 BPM [employer] Work Phone: [facility] Work Phone: EKG 12 Leadon 05-03-2021 Normal sinus rhythm Normal ECG No previous ECGs available [facility] Diaz Elias MD - 05/03/2021 Normal sinus rhythm Normal ECG No previous ECGs available [facility] Work Phone: APTTon 05-02-2021 aPTT Coag (Bld) [Time] 25.0 s [facility] Comment on above: IV Heparin Therapy Range: 48.6-77.8 Basic Metabolic Panelon 04-11 Anion gap [Moles/Vol] 15 mmol/L 9 - 17 mmol/L [facility] Calcium [Mass/Vol] 9.8 mg/dL 8.6 - 10. 4 mg/dL [facility] Chloride [Moles/Vol] 102 mmol/L 98 - 107 mmol/L [facility] CO2 [Moles/Vol] 21 mmol/L 20 - 31 mmol/L [facility] Creatinine [Mass/Vol] 0.55 mg/dL 0.50 - 0.90 mg/dL [facility] GFR >60 >60 mL/min [facility] GFR Non- >60 >60 mL/min [facility] GFR/1.73 sq M.predicted MDRD (S/P/Bld) [Vol rate/Area] [facility] Comment on above: Average GFR for 20-2 9 years old: 116 mL/min/1.73sq m Chronic Kidney Disease: <60 mL/min/1.73sq m Kidney failure: <15 mL/min/1.73sq m eGFR calculated using average adult body mass. Additional eGFR calculator available at: http://www.Scintella Solutions/multiple_crcl_2012.htm Glucose [Mass/Vol] 85 mg/dL 70 - 99 mg/dL [facility] Potassium [Moles/Vol] 4.5 mmol/L 3.7 - 5.3 mmol/L [facility] Sodium [Moles/Vol] 138 mmol/L 135 - 144 mmol/L [facility] Urea nitrogen (BldV) [Mass/Vol] 11 mg/dL 6 - 20 mg/dL [facility] CBCon 05-02-2021 Hematocrit (Bld) [Volume fraction] 41.0 % 36.3 - 47.1 % [facility] Hemoglobin.gastroin testinal spec 1 Ql (Stl) 12.9 g/dL 11.9 - 15.1 g/dL [facility] MCH (RBC) [Entitic mass] 26.9 pg 25.2 - 33.5 pg [facility] MCHC (RBC) [Mass/Vol] 31.5 g/dL 28.4 - 34.8 g/dL [facility] MCV (RBC) [Entitic vol] 85.6 fL 82.6 - 102.9 fL [facility] NRBC Automated 0.0 0.0 per 100 WBC [facility] Platelet distribution width (Bld) [Ratio] 13.7 % 11.8 - 14.4 % [facility] Platelet mean volume (Bld) [Entitic vol] 9.8 fL 8.1 - 13.5 fL [facility] Platelets (Bld) [#/Vol] 380 10*3/uL [facility] RBC (Bld) [#/Vol] 4.79 10*6/uL 3.95 - 5.1 1 m/uL [facility] WBC (Bld) [#/Vol] 11.2 10*3/uL [facility] No Panel Informationon 05-02 [facility] Protime-INRon 05-02-2021 INR Coag (Bld) [Relative time] 1.0 {INR} [facility] Comment on above: Therapeutic Range: Moderate Anticoagulant Intensity: INR = 2.0-3.0 High Anticoagulant Intensity: INR = 2.5-3.5 PT Coag (PPP) [Time] 10.6 s [facility] XR CHEST (2 VW)on 05-02-2021 No acute process. [facility] EXAMINATION: TWO XRAY VIEWS OF THE CHEST 05/02/2021 11:20 am COMPARISON: None. HISTORY: ORDERING SYSTEM PROVIDED HISTORY: preop, obesity TECHNOLOGIST PROVIDED HISTORY: preop, obesity FINDINGS: Heart is normal in size. Lungs are clear. No free air. [facility] Jose Juan Florez Jr. , DO - 05/02/2021 EXAMINATION: TWO XRAY VIEWS OF THE CHEST 05/02/2021 11:20 am COMPARISON: None. HISTORY: ORDERING SYSTEM PROVIDED HISTORY: preop, obesity TECHNOLOGIST PROVIDED HISTORY: preop, obesity FINDINGS: Heart is normal in size. Lungs are clear. No free air. IMPRESSION: No acute process. [employer] Phone: Radiology Study observation (narrative) [employer] Phone: XR CHEST (2 VW)Ordered By: Santos Florez on 05-02-2021 [employer] Phone: [id number] 12-05-2020 SARS-CoV-2 (COVID-19) RNA BECCA+probe Ql (Unsp spec) Normal [facility] Comment on above: Performed By: #### C OVID #### [facility] [address] [place] [address] Spring Maker: Anhtony Aguilar MD [facility] [address] [place] [address] Spring Maker: Jameel Lawler MD SARS-CoV-2 (COVID-19) RNA BECCA+probe Ql (Unsp spec) Not detected Normal [facility] Comment on above: Result Comment: The specimen is NEGATIVE for SARS-CoV-2, the novel coronavirus associated with COVID-19. A negative result does not rule out COVID-19. Lucrecia SARS-CoV-2 for use on the LucreciaLukkin0/8800 Systems is a real-time RT-PCR test intended for the qualitative detection of nucleic acids from SARS-CoV-2 in clinician-collected nasal, nasopharyngeal, and oropharyngeal swab specimens from individuals who meet COVID-19 clinical and/or epidemiological criteria. Lucrecia SARS-CoV-2 is for use only under Emergency Use Authorization (EUA) in laboratories certified under Clinical Laboratory Improvement Amendments of 1988 (CLIA), 42 U.S.C. ?263a, that meet requirements to perform high or moderate complexity tests. An individual without symptoms of COVID-19 and who is not shedding SARS-CoV-2 virus would expect to have a negative (not detected) result in this assay. Fact sheet for Healthcare Providers: https://www.fda.gov/media/458676/download Fact sheet for Patients: https://www.fda.gov/media/740704/download METHODOLOGY: RT-PCR Performed By: #### C OVID #### [address] [id number] Spring Maker: Anthony Aguilar MD [address] [place] [address] Spring Maker: Jameel Lawler MD [id number] 12-04-2020 SARS-CoV-2 (COVID-19) RNA BECCA+probe Ql (Unsp spec) .NASOPHARYNGEAL SWAB Normal [facility] Comment on above: Performed By: #### C OVID #### [address] [id number] Spring Maker: Anthony Aguilar MD [address] [place] [address] Spring Maker: Jameel Lawler MD Vital Signs Date Time Vital Sign Value Performing Clinician Facility 10-12-2022 10:10-0400 Body height 170.18 cm Lilia Daugherty Other [facility] Other 10-12-2022 10:10-0400 Body mass index (BMI) [Ratio] 32.86 kg/m2 Lilia Daugherty Other [facility] Other 10-12-2022 10:10-0400 Body temperature 99 [degF] Lilia Daugherty Other [facility] Other 10-12-2022 10:10-0400 Body weight 95.17 kg Lilia Daugherty Other [facility] Other 10-12-2022 10:10-0400 Diastolic blood pressure 74 mm[Hg] Lilia Daugherty Other [facility] Other 10-12-2022 10:10-0400 SaO2% (BldA) [Mass fraction] 98 % Lilia Daugherty Other [facility] Other 10-12-2022 10:10-0400 Systolic blood pressure 118 mm[Hg] Lilia Daugherty Other [facility] Other 05-17-2021 15:52-0400 Body temperature 98.49 [degF] Patricia Huertaton DO Work Phone: [facility] 05-17-2021 15:52-0400 Diastolic blood pressure 97 mm[Hg] Patricia Curry DO Work Phone: [facility] 05-17-2021 15:52-0400 Heart rate 70 /min Patricia Huertaton DO Work Phone: [facility] 05-17-2021 15:52-0400 Respiratory rate 18 /min Patricia Curry DO Work Phone: [facility] 05-17-2021 15:52-0400 SaO2% (BldA) [Mass fraction] 99 % Patricia Curry DO Work Phone: [facility] 05-17-2021 15:52-0400 Systolic blood pressure 138 mm[Hg] aPtricia Huertaton DO Work Phone: [facility] 05-16-2021 06:06-0400 Body mass index (BMI) [Ratio] 43.16 kg/m2 Patricia Curry ForeSee Work Phone: [facility] 05-16-2021 06:06-0400 Body weight 125 kg Patricia Curry [employer]See Work Phone: [facility] 05-16-2021 05:57-0400 Body height 170.2 cm Patricia Curry ForeSee Work Phone: [facility] 05-02-2021 10:35-0400 Body height 170.2 cm Stvz 1 [facility] 05-02-2021 10:35-0400 Body mass index (BMI) [Ratio] 44.95 kg/m2 Stvz 1 [facility] 05-02-2021 10:35-0400 Body temperature 97.2 [degF] Stvz 1 [facility] 05-02-2021 10:35-0400 Body weight 130.18 kg Stvz 1 [facility] 05-02-2021 10:35-0400 Diastolic blood pressure 85 mm[Hg] Stvz 1 [facility] 05-02-2021 10:35-0400 Heart rate 66 /min Stvz 1 [facility] 05-02-2021 10:35-0400 Respiratory rate 18 /min Stvz 1 [facility] 05-02-2021 10:35-0400 SaO2% (BldA) [Mass fraction] 99 % Stvz 1 [facility] 05-02-2021 10:35-0400 Systolic blood pressure 122 mm[Hg] Stvz 1 [facility] 12-04-2020 17:00-0400 Body height 170.18 cm Ale Kimberly Other [facility] Other 12-04-2020 17:00-0400 Body mass index (BMI) [Ratio] 43.85 kg/m2 Ale Ginty Other [facility] Other 12-04-2020 17:00-0400 Body temperature 97.4 [degF] Ale Ginty Other [facility] Other 12-04-2020 17:00-0400 Body weight 127.01 kg Ale Guidogabalfredo Other [facility] Other 12-04-2020 17:00-0400 SaO2% (BldA) [Mass fraction] 99 % Ale Guidogabalfredo Other [facility] Other Encounters Encounter Date Encounter Type Care Provider Facility Start: 02-05-2023 Chart abstracting Darlene Yap MD Work Phone: [facility] Start: 01-15-2023 End: 01-15-2023 ambulatory NIGEL ZACARIAS Not Available Start: 01-07-2023 End: 01-07-2023 ambulatory MARGOT G YAW Not Available Start: 12-20-2022 End: 12-21-2022 ambulatory MARGOT YAW Not Available Start: 10-12-2022 End: 10-12-2022 ambulatory Lilia Daugherty Other [facility] Other Start: 10-12-2022 Office outpatient vi sit 15 minutes Lilia Daugherty [facility] Start: 09-11-2022 End: 09-11-2022 ambulatory PATRICIA [facility] Start: 02-10-2022 End: 02-10-2022 ambulatory Ale Shields Other [facility] Other Start: 02-10-2022 Telephone encounter Ale Shields [facility] Start: 02-08-2022 End: 02-08-2022 ambulatory Ale Shields Facility:[facility] Start: 02-08-2022 End: 02-08-2022 ambulatory LAURA Shields Work Phone: [facility] Work Phone: Start: 02-08-2022 End: 02-08-2022 Departed Referred VASCULAR NEUROLOGISTLiliana Shields Work Phone: [facility] [place] Work Phone: Start: 01-08-2022 End: 01-09-[address] JAMEEL BURGOS Facility:[facility] Start: 12-31-2021 End: 01-01-[address] JAMEEL BURGOS Facility:[facility] Start: 11-28-2021 End: 11-28-2021 ambulatory None Provider Facility:[facility] Start: 11-28-2021 End: 11-29-[address] JAMEEL BURGOS Facility:[facility] Start: 11-22-2021 End: 11-23-2021 ambulatory NONE LISTED REQUEST Facility:[facility] Start: 10-17-2021 End: 10-18-[address] XIAO LISTED REQUEST Facility:[facility] Start: 08-03-2021 End: 08-04-[address] JAMEEL BURGOS Facility:[facility] Start: 05-16-2021 End: 05-17-2021 Evaluation and management of inpatient Patricia Curry DO Work Phone: [facility] Comment on above: Post-op pain (Primar y Dx) Start: 05-14-2021 End: 05-19-2021 ambulatory [facility]N [facility]FE [facility] Start: 05-02-2021 End: 05-06-2021 Subsequent hospital visit by physician Dwight Pat Rm 1 [facility] Pre-Admit Testing Start: 12-04-2020 End: 12-09-2020 ambulatory CYN OKEEFE [facility] Start: 12-04-2020 Office outpatient vi sit 15 minutes Ale Kimberly [facility] Start: 10-20-2020 End: 10-20-2020 Subsequent hospital visit by physician Patricia Curry DO Work Phone: [facility] [place] Start: 09-06-2020 End: 09-07-2020 ambulatory IKE ANGEL [facility] Start: 09-06-2020 End: 09-06-2020 Subsequent hospital visit by physician Henrietta Sleep Rm [address] [facility] Comment on above: LYNN (obstructive sle ep apnea) Start: 05-28-2017 End: 05-29-2017 Ambulatory Neo Anderson Facility:[id number] Procedures Date Procedure Procedure Detail Performing Clinician Start: 12-20-2022 Antibody screen Darlene allison MD Work Phone: Start: 12-20-2022 HIV 1&2 AB/AG SCREEN (P24 AG) Nigel Higginso DO Work Phone: Start: 12-20-2022 Iaad ia hepatitis b surface antigen Nigel Higginso DO Work Phone: Start: 12-20-2022 Syphilis test non-treponemal antibody qual Nigel Higginso DO Work Phone: Start: 12-20-2022 TYPE AND SCREEN Nigel Adames DO Work Phone: Start: 12-20-2022 ULTRASOUND OFFICE Nigel Adames DO Work Phone: Start: 05-17-2021 Basic metabolic pane l calcium total Patricia Rucker Antoinette DO Work Phone: Start: 05-16-2021 SURGICAL PATHOLOGY REPORT Patricia Rucker Antoinette DO Work Phone: Start: 05-16-2021 Basic metabolic pane l calcium total Patricia Rucker Antoinette DO Work Phone: Start: 05-16-2021 End: 05-16-2021 Laps gstrc rstrictiv px longitudinal gastrectomy Patricia Rucker Antoinette DO Work Phone: Start: 05-16-2021 Glucose blood reagen t strip Patricia Rucker Antoinette DO Work Phone: Start: 05-16-2021 Urine test visual color cmprsn meths Patricia Rucker Antoinette DO Work Phone: Start: 05-02-2021 Assay of nicotine Sim Rucker Antoinette DO Work Phone: Start: 05-02-2021 Basic metabolic pane l calcium total Patricia Rucker Antoinette DO Work Phone: Start: 05-02-2021 Radiologic exam ches t 2 views Patriciaviviana Curry DO Work Phone: Start: 05-02-2021 Ecg routine ecg w/le ast 12 lds i&r only Patricia Curry DO Work Phone: Start: 06-14-2020 Microscopic observat ion [Identifier] in Cervix by Cyto stain Darlene Yap MD Work Phone: Plan of Treatment Date Care Activity Detail Author Start: 01-04-2024 Adult BMI Screening Adult BMI Screen ing [facility] Start: 01-04-2024 Tobacco Screening Tobacco Screening [facility] Start: 08-11-2023 DTaP,Tdap and Td Vaccines (7 - Td or Tdap) DTaP,Tdap and Td Vaccines (7 - Td or Tdap) [facility] Start: 08-11-2023 DTaP/Tdap/Td vaccine (7 - Td or Tdap) DTaP/Tdap/Td vaccine (7 - Td or Tdap) [facility] Start: 06-15-2023 Screening for malign ant neoplasm of cervix Pap Smear [facility] Start: 02-07-2023 End: 02-07-2023 Patient encounter procedure [facility] Start: 10-11-2022 Influenza vaccination Influenza Vacc ine [facility] Start: 09-19-2022 Adult BMI Follow Up Plan Adult BMI Follow Up Plan [facility] Start: 02-08-2022 Bacteria identified in Urine by Culture Urine Culture [facility] Start: 01-08-2022 Hemoglobin A1c measurement A1C test (Diabetic or Prediabetic) [facility] Start: 10-11-2021 Influenza vaccination Flu vacc ine (Season Ended) [facility] Start: 07-14-2021 Hemoglobin A1c measurement A1C test (Diabetic or Prediabetic) [facility] Work Phone: Start: 06-18-2021 End: 06-18-2021 Patient encounter procedure 06/18/2021 Office Visit Bariatrics Deann Navarro, VASCULAR NEUROLOGIST - DETAIL MAKER AND FITTER [address] [place] [address] [facility] Start: 05-24-2021 End: 05-24-2021 Patient encounter procedure 05/24/2021 Office Visit Bariatrics Patricia Curry DO [address] [place] [address] [facility] Surg Start: 05-16-2021 End: 05-16-2021 Admission to same day surgery center 05/16/2021 Surgery IP Unit Patricia Curry DO [address] [place] [address] XI ROBOTIC LAPAROSCOPIC GASTRECTOMY SLEEVE , LIVER BIOPSY, EGD- GI SCHEDULED [facility] Comment on above: XI ROBOTIC LAPAROSCO PIC GASTRECTOMY SLEEVE , LIVER BIOPSY, EGD- GI SCHEDULED Start: 05-16-2021 End: 05-16-2021 Laps gstrc rstrictiv px longitudinal gastrectomy GASTRECTOMY SLEEVE LAPAROSCOPIC ROBOTIC MORBID OBESITY, OBSTRUCTIVE SLEEP APNEA, GERD 05/16/2021 7:10 AM EDT [facility] Start: 05-16-2021 Subsequent hospital visit by physician 05/16/2021 Hospital Encounter IP Unit Patricia Curry DO [address] [place] [address] [facility] Start: 05-13-2021 End: 05-13-2021 Patient encounter procedure 05/13/2021 Appointment Pre-Admission Testing [facility] PRE ADMIT Start: 05-10-2021 End: 05-10-2021 Patient encounter procedure 05/10/2021 Office Visit Bariatrics Patricia Curry DO [address] [place] [address] [facility] Invasive Bariatric Surg Start: 11-22-2020 End: 11-22-2020 Nursing evaluation of patient and report 11/22/2020 Nurse Only Bariatrics [facility] Invasive Bariatric Surg Start: 11-06-2020 End: 11-06-2020 Patient encounter procedure [facility] Start: 11-03-2020 End: 11-03-2020 Patient encounter procedure 11/03/2020 Office Visit Bariatrics Deann Navarro, VASCULAR NEUROLOGIST - DETAIL MAKER AND FITTER [address] [place] [address] [facility] [place] Start: 10-11-2020 Influenza vaccination Flu vaccine (# 1) [facility] Start: 09-28-2020 End: 09-28-2020 Patient encounter procedure 09/28/2020 Office Visit Bariatrics Deann Navarro, VASCULAR NEUROLOGIST - DETAIL MAKER AND FITTER [address] [place] [address] [facility] [place] Start: 09-01-2015 Screening for malign ant neoplasm of cervix [facility] Start: 2009 HIV screening HIV screen [facility] Start: 2006 COVID-19 Vaccine (1) COVID-19 Vaccin e (1) [facility] Work Phone: Start: 2006 Depression Screen Depression Screen [facility] Start: 2006 Depression Screening Depression Scre [facility] Start: 2005 HPV vaccine (1 - 2-d ose series) HPV vaccine (1 - 2-dose series) [facility] Start: 2000 Pneumococcal 0-64 ye ars Vaccine (1 of 2 - PPSV23) Pneumococcal 0-64 years Vaccine (1 of 2 - PPSV23) [facility] Work Phone: Start: 09-01-1999 COVID-19 Vaccine (1) COVID-19 Vaccin e (1) [facility] Start: 09-01-1995 Varicella vaccine (1 of 2 - 2-dose childhood series) Varicella vaccine (1 of 2 - 2-dose childhood series) [facility] Start: 1994 Hepatitis C screening Hepatitis C sc [facility] End: 09-06-2020 Baseline Diagnostic Sleep Study Baseline Diagnostic Sleep Study Sleep Center Routine LYNN (obstructive sleep apnea) 1 Occurrences starting 09/06/2020 until 09/06/2020 [facility] Work Phone: Comment on above: 1 Occurrences starti ng 09/06/2020 until 09/06/2020 Continuous pulse oximetry Pulse oximetry, continuous Respiratory Care Routine Every 4hr until discontinued starting 05/16/2021 [employer] Phone: Comment on above: Every 4hr until disc ontinued starting 05/16/2021 Oxygen therapy [[facility] Data Set] Initiate Oxygen Therapy Protocol Respiratory Care Routine As Needed until discontinued starting 05/16/2021 [employer] Phone: Comment on above: As Needed until disc ontinued starting 05/16/2021 Spirometry panel Incentive isiah metry Respiratory Care Routine Every 2hr while awake until discontinued starting 05/16/2021 [employer] Phone: Comment on above: Every 2hr while awak e until discontinued starting 05/16/2021 Surgical Pathology Surgical Path ology Lab Routine Release Upon Ordering for 1 Occurrences starting 05/16/2021 [employer] Phone: Comment on above: Release Upon Orderin g for 1 Occurrences starting 05/16/2021 Immunizations Immunization Date Immunization Notes [facility] Provider [facility]-2016 tuberculin skin test ; purified protein derivative solution, intradermal Darlene Yap MD Work Phone: [employer] 08-10-2013 tetanus toxoid, redu yemi diphtheria toxoid, and acellular pertussis vaccine, adsorbed [facility]1999 diphtheria, tetanus toxoids and acellular pertussis vaccine [facility] Yap MD [facility] 10-03-1999 hepatitis B vaccine, pediatric or pediatric/adolescent dosage Darlene Yap MD [facility] 10-03-1999 measles, mumps and rubella virus vaccine Darlene Yap MD [facility] 10-03-1999 poliovirus vaccine, inactivated [facility]arlene Yap MD [facility] 01-14-1996 diphtheria, tetanus toxoids and acellular pertussis vaccine Darlene Yap MD Work Phone: [facility] 01-14-1996 haemophilus influenz ae type b vaccine, conjugate unspecified formulation Darlene Yap MD Work Phone: [facility] 01-14-1996 measles, mumps and rubella virus vaccine Darlene Yap MD Work Phone: [facility] 05-21-1995 diphtheria, tetanus toxoids and acellular pertussis vaccine Darlene Yap MD Work Phone: [facility] 05-21-1995 haemophilus influenz ae type b vaccine, conjugate unspecified formulation Darlene Yap MD Work Phone: [facility] 05-21-1995 poliovirus vaccine, inactivated Darlene Yap MD Work Phone: [facility] 02-21-1995 diphtheria, tetanus toxoids and acellular pertussis vaccine Darlene Yap MD Work Phone: [facility] 02-21-1995 haemophilus influenz ae type b vaccine, conjugate unspecified formulation Darlnee Yap MD Work Phone: [facility] 02-21-1995 hepatitis B vaccine, pediatric or pediatric/adolescent dosage Darlene Yap MD Work Phone: [facility] 02-21-1995 poliovirus vaccine, inactivated Darlene Yap MD Work Phone: [facility] 1994 diphtheria, tetanus toxoids and acellular pertussis vaccine Darlene Yap MD Work Phone: [facility] 1994 haemophilus influenz ae type b vaccine, conjugate unspecified formulation Darlene Yap MD Work Phone: [facility] 1994 hepatitis B vaccine, pediatric or pediatric/adolescent dosage Darlene Yap MD Work Phone: [facility] 1994 poliovirus vaccine, inactivated Darlene Yap MD Work Phone: [facility] 1994 hepatitis B vaccine, pediatric or pediatric/adolescent dosage Darlene Yap MD Work Phone: [facility] Payers Date Payer Category Payer Medicaid [id number] 2022 Medicaid ANTH MEDICAID FORMERLY [facility] MEDICAID [id number] 2022-Present [address] [place] [address] [id number] 2022 Self-pay 2019 Unknown [id number] 1994 Unknown [id number] [id number]. 173 1994 Unknown [id number] [id number]. 173 1994 Unknown [id number] 2.16.840.1.848799.3.579.2. 173 1994 Unknown [id number] 2.16.840.1.309289.3.579.2. 593 1994 Unknown [id number] 2.16.840.1.903415.3.579.2. 593 1994 Unknown [id number] 2.16.840.1.249715.3.579.2. 593 1994 Unknown [id number] 2.16.840.1.751525.3.579.2. 593 1994 Unknown [id number] 2.16.840.1.783982.3.579.2. 593 1994 Unknown [id number] 2.16.840.1.571296.3.579.2. 593 1994 Unknown [id number] 2.16.840.1.160849.3.579.2. 175 1994 Unknown [id number] 2.16.840.1.835183.3.579.2. 1259 1994 Unknown [id number] 2.16.840.1.319916.3.579.2. 1259 1994 Unknown [id number] 2.16.840.1.588943.3.579.2. 1259 1959 Private Health Insurance [id number]. [id number] Private Health Insurance [facility] [id number] Unknown [id number]. 531 Social History Date Type Detail Facility Start: 09-01-2020 End: 09-28-2020 Tobacco smoking status [facility] Current every day smoker [employer] Phone: Start: 03-20-2020 End: 09-01-2020 Cigarettes smoked current (pack per day) - Reported [facility] Start: 09-01-2020 End: 01-19-2021 Tobacco use and exposure Never used [employer] Phone: Start: 09-01-2020 End: 09-28-2020 Alcohol intake Current drinker of alcohol (finding) [employer] Phone: Start: 12-23-2019 Alcohol Comment weekly [facility] Phone: Start: 1994 Sex Assigned At Not on file M [employer] Phone: Start: 04-22-2021 End: 05-16-2021 Exposure to SARS-CoV-2 (event) Not sure [facility] Exposure to SARS-CoV -2 (event) Yes [facility] Start: 01-19-2021 End: 02-05-2023 Tobacco smoking status SCIS Ex-smoker [facility] End: 11-19-2020 History of tobacco use Current smoker [employer] Phone: Start: 05-02-2021 End: 02-05-2023 Alcohol intake Ex-drinker (finding) [employer] Phone: Start: 08-17-2018 End: 03-20-2020 Sex Assigned At [facility] Start: 1995 Sex Assigned At Female F [facility] End: 02-11-2020 History of tobacco use Cigarette Smoker [facility] History of tobacco use Tobacco U se Types Packs/Day Years Used Date Smoking Tobacco: Former Cigarettes Quit: 2020 Vaping/E-cigarettes Smokeless Tobacco: Former Quit: 11/06/2020 [facility] Start: 02-05-2023 Tobacco use and exposure Forme r smokeless tobacco user [facility] End: 11-06-2020 History of tobacco use User of smokeless tobacco [facility] Frequency of Communication with Friends and Family More than three times a week [facility] Start: 08-17-2018 Education 12 [facility] Start: 05-18-2022 Alcohol Comment social, every other weekend [facility] Start: 10-31-2022 [facility] Clinical Notes 12-04-2020 to 10-12-2022 Note Date & Type Note Facility 10-12-2022 Evaluation note Encounter Date Diagnosis Assessment Notes Oct, Communicable disease contact (ICD-10 - Z20.9) Oct, Acute sinusitis, recurrence not specified, unspecified location (ICD-10 - J01.90) Sinusitis home care material was printed Drink plenty fluids, get plenty of rest. Take the amoxicillin with clavulanate and prednisone as prescribed until gone. Continue to use your Flonase nasal spray until your symptoms improved. You may take Sudafed and/or Mucinex for congestion. Take fklr-wla-wlrfi er Robitussin or Delsym for cough. Follow-up with your family physician if no improvement in 2 to 3 days. Off work tomorrow. Oct, Cough (ICD-10 - R05.9) Oct, Bronchitis (ICD-10 - J40) Acute bronchitis material was printed [employer] Other 10-19-2022 NotePatient Education Materials [id number] History of Present illness Narrative* Payal Richardson - 05/17/2021 4:25 PM EDT CLINICAL PHARMACY NOTE: MEDS TO BEDS Total # of Prescriptions Filled: 5 The following medications were delivered to the patient: Percocet 5-325mg Promethazine 25mg Cyclobenzaprine 10mg Famotidine 20mg Enoxaparin 40mg/0.4ml Additional Documentation: delivered to patient in room 234 05/17 at 4:03pm. No co-pay. * Avelino Gross RN - 05/17/2021 9:39 AM EDT Discussed bariatric discharge instructions with patient, allowed time for questions, had patient demonstrate IS, lovenox teaching done and patient voices understanding documented [facility] this [facility] Phone: [phone] Hospital Discharge instructions* Instructions* Hannah Zavaleta RN - 05/17/2021 Discharge Instructions for Bariatric Surgery You had a Laparoscopic Sleeve Gastrectomy (32822) surgery to treat obesity. Recovery from this surgery can take several weeks and requires permanent lifestyle changes. What You Will Need Protein Supplements Bariatric Vitamins Abdominal Binder Incentive spirometer (a breathing device) Home Care It is important to keep the incisions clean and dry to promote healing. Shower with soap and rinse and dry thoroughly. If incisions are oozing, you may cover with clean gauze. Use the incentive spirometer every couple of hours. This is to make sure you are breathing deeply and keeping the air sacs within your lungs as open as possible to prevent respiratory problems. Diet It is important to follow the diet progression very closely in order to prevent complications. When arriving home, follow the Phase 1A Liquid Diet for two weeks. Dehydration and changes in bowelhabits can occur after surgery. Refer to your educational binder provided pre-op for additional information. Once you move to solids, food must be chewed well. When making food choices, you'll need to ensure adequate protein intake, while avoiding sweets and fatty foods. Eating too much or too quickly can cause vomiting or intense pain under your breastbone. Most people quickly learn how much food they can tolerate. Physical Activity When home, we recommend that you take frequent walks, as tolerated, to prevent complications and increase your endurance. Ask your doctor when you will be able to return to work. You may need to wait 2- [address] you are no longer using pain medications Do not lift anything over ten pounds for 4 weeks. Medications Remember to avoid aspirin, aspirin-containing products, and nonsteroidal anti- inflammatory drugs (NSAIDs, such as ibuprofen, naproxen, etc.). If you were taking these medications before the procedure, and had to stop, ask your doctor when you can resume taking them. Be sure to review your medications with your primary care provider at yourfollow up office visit. Lifestyle Changes Changing your diet and level of activity are the biggest lifestyle changes associated with your success. Be aware that you may have emotional ups and downs after this surgery. Follow-up Follow up with your primary care physician in one week. Follow up with Dr. Curry in 1 week. If you don't already have a scheduled appointment, please call the office at [phone]. Call Your Doctor If Any of the Following Occurs Monitor your recovery once you leave the hospital. If any of the following occur, call your doctor: Signs of infection, including fever above 100F Redness, swelling, increasing pain, excessive bleeding, or any discharge from the incision site Persistent nausea and/or vomiting Pain that you can't control with the medications you've been given Shortness of breath and/or chest pain Tachycardia (racing heart sensation) unrelieved by rest Pain, redness and/or swelling in your feet or legs Sudden onset of severe left shoulder pain or severe abdominal pain Any symptoms that are causing you concern In case of an emergency, call 911 immediately. * Attachments The following attachments cannot be sent through Care Everywhere. * Enoxaparin (Lovenox) (Yakut) * Video: How to Give Yourself an Anticoagulant (Blood Thinner) Shot (Yakut) documented in this [facility] Phone: [phone] 292-646103-23-2022 Hospital Discharge instructions* Instructions* Kendal Wilhelm APRN - ELOISE - 05/02/2021 Pre-operative Instructions NOTHING to eat or drink after midnight the night prior to surgery EXCEPT GATORADE PER SURGEON, no later than 5:10AM (This includes gum, candy, mints, chewing tobacco, etc). Please arrive at the surgery center by 5:30 AM on 05/16/2021 (or as directed by your surgeon's office). See Directons to Surgery Center below. Please take only the following medication(s) the day of surgery with a small sip of water: Please stop any blood thinning medications DIRECTED BY PRESCRIBING PROVIDER! : Failure to stop these medications as instructed (too soon or too late) may result in injury to you,or your surgery may need to be rescheduled. Below is a list of some examples for your reference. Antiplatelets : (stop blood cells (called platelets) from sticking together and forming a blood clot): Aspirin (Bufferin, Ecotrin), Clopidogrel (Plavix), Ticagrelor (Brilinta), Prasugrel (Effient), Dipyridamole/aspirin (Aggrenox), Ticlopidine (Ticlid), Eptifibatide (Integrilin) Anticoagulants: (slow down your body's process of making clots): Warfarin (Coumadin), Rivaroxaban (Xarelto), Dabigatran (Pradaxa), Apixaban (Eliquis), Edoxaban (Savaysa), Heparin/Enoxaparin (Lovenox), Fondaparinux (Arixtra) NSAIDS: Aspirin (Bufferin, Ecotrin), Ibuprofen (Motrin, Nuprin,Advil), Naproxen (Aleve),Meloxicam (Mobic), Celecoxib (Celebrex), Diclofenac (Voltaren), Etodolac (Lodine), Indomethacin, Ketorolac, Nabumetone, Oxaprozin (Daypro), Piroxicam (Feldene), Excedrin (has aspirin in it) Herbal supplements: Bromelain, Cinnamon, Cayenne Pepper, Dong quai (female ginseng), Fish oil, Garlic, Cynthia,Ginkgo biloba, Grape seed extract, Turmeric, Vitamin E, etc....) You may continue the rest of your medications through the night before surgery unless instructed otherwise. If applicable: Do not take diabetic medications on the day of surgery. Please use/bring daily inhalers with you 05/02/21 10:55 AM Signature (Provider) Signature (Patient) Day of Surgery/Procedure As a patient at [facility] you can expect quality medical and nursing care that is centered on your individual needs. Our goal is to make your surgical experience as comfortableas possible Directions to the Surgery Center The surgery Center at [facility] is located in the Emergency Room parking lot on [facility] [address] [facility] or there is additional parking across the street. The address is [address] [place] [address]. Please check in at the Surgery Center upon arrival. Patient Instructions In case of any illness please contact your surgeons office for instructions prior to coming to the hospital. Due to current restrictions you are only allowed 2 adults to be with you. Masks are to be worn and screening will take place on arrival. Bring your current list of medications, vitamins, herbals and anything you might take on an as needed basis. It is important we have a correct list with dosages and frequencies. Please verify yourlist with your medications at home or bring all of your bottles with you. If you have been given a blood band be sure to bring it with you on the day of surgery. Do not put it on or close the clasp. Use and bring any inhalers if you are currently using one. It is ok to brush your teeth but do not swallow any water. You may be required to provide a urine sample upon your arrival to the pre-op area, so please take this into consideration prior to using the restroom. No jewelry or piercing's to be worn into surgery because you might be injured because of them. No contact lenses to be worn. It is ok to wear your glasses in pre op but they will be removed prior to going into the operating room. Dentures/partials will likely need to be removed in pre op depending on your type of anesthesia, please do not use adhesives on the day of surgery. Bathe as instructed with the special soap given to you. No lotions, powders or creams after bathing. Wear loose comfortable clothing / shoes that are easy to get on and off over wounds or casts. If you are going to be admitted after surgery please bring your Cpap or BiPap if you have it at home. Keep patient belongings to a minimum and leave valuables at home. If you are staying overnight withus, please bring a SMALL bag of personal items. We cannot accommodate large items, like suitcases. If you are going home after anesthesia or sedation then you must have a responsible adult with you to take you home and to be with you for the first 24 hours after surgery. If you do not have someoneto stay with you your surgery might get cancelled. Please contact your surgeon's office to see if other arrangements can be made if you can not find someone to stay with you. If you have any other questions on the day of surgery please contact [phone] or [phone] If you have any other questions regarding your procedure/surgery please call your surgeon's office. documented in this [facility] Phone: [phone]) [phone] History of Present illness Narrative* Eloise Chi RN - 05/02/2021 11:00 AM EDT Obtained medical clearance for OR on 05/16/2021. * LAURA Garcia CNP - 05/02/2021 11:00 AM EDT Anesthesia Focused Assessment Hx of anesthesia complications: no Family hx of anesthesia complications: no Prior + Covid-19 test? yes Date: 01/2021 Symptoms: congestion x 1 week Complications: no Hospitalization required? no STOP-BANG Sleep Apnea Questionnaire SNORE loudly (heard through closed doors)? No TIRED, fatigued, sleepy during daytime? No OBSERVED stopping breathing during sleep? No High blood PRESSURE or being treated? No BMI over 35? Yes AGE over 50? No NECK circumference over 16 ? No GENDER (male)? No Total 1 High risk 5-8 Intermediate risk 3-4 Low risk 0-2 LYNN No If yes, machine? DM1 No DM2 Yes, on metformin Coronary Artery Disease No HTN Yes Defib/AICD/Pacemaker No Renal Failure No If yes, on dialysis Active smoker? No, former Drinks alcohol? Yes, occasionally Illicit drugs? No Dentition? benign Past Medical History: Diagnosis Date Anemia Anxiety Bronchitis COVID-19 01/2021 congestion x 1 week, no complications DM (diabetes mellitus) (HCC) Environmental allergies GERD (gastroesophageal reflux disease) History of blood transfusion no reactions Metabolic syndrome Obesity PCOS (polycystic ovarian syndrome) Under care of team 05/02/2021 pcp-Dr MelgozaBvmwmg-xievein-kffq visit april 2021 Patient was evaluated in PAT & anesthesia guidelines were applied. NPO guidelines, medication instructions and scheduled arrival time were reviewed with patient. Anesthesia contacted: no Medical or cardiac clearance ordered: no, medical clearance obtained. LAURA Garcia CNP 05/02/21 11:53 AM documented in [facility] Phone: [phone] Evaluation note* Encounter Date Diagnosis Assessment Notes Treatment Notes Treatment Clinical Notes Nov, Contact with and (suspected) exposure to other viral communicable diseases (ICD-10 - Z20.828) Nov, Viral URI with cough (ICD-10 - J06.9) No COVID test completed at this time. Advised patient that will tx as viral URI. Supportive care as directed, increase fluids and rest, Tylenol/Motrin as directed, rx of [place] and Flonase as directed, cool mist humidifier, throat lozenges. Discussed infection control practices such as good hand washing and mask wearing. Patient to follow-up with UC or PCP for persistent or worsening sx despite tx. Immediate eval by ER for warning s/sx as discussed, including but not limited to, SOB, difficulty breathing, chest pain, palpitations, fever >103 or fevers that are not reduced with antipyretic, significant dehydration, abdominal pain, lethargy, severe headache. Patient was provided with education hand sheet. Patient verbalizes understanding and is agreeable to treatment plan Nov, Other Additional time spent conducting pre-visit phone call, screening for symptoms, instructions on social distancing, application and removal of PPE, and cleaning of examination room, equipment and supplies was preformed. Patient education given for testing methodology and results. Patient care instructions given in writting by [facility] Care At Home document Verisim Other Evaluation note* Diagnosis LYNN (obstructive sleep apnea) Obstructive sleep apnea (adult) (pediatric) documented in this encounter [employer] Phone: [email or web address] note* Diagnosis S/P laparoscopic sleeve gastrectomy- Primary Post-op pain Other acute postoperative pain documented in this encounter [employer] Phone: [email or web address] noteNo assessment information available [facility] Work Phone: Evaluation noteNo InformationNort [employer] Other Hisctan general Narrative - Reported* Type Description Date Medical History METABOLIC SYNDROME Medical History SYNCOPE Medical History anxiety Surgical History WISDOM TEETH Surgical History TONSILECTOMY Surgical History ENDOSCOPY AND COLONSCOPY Surgical History C section Hospitalization History see above Veris[employer] Other Hisqmql general Narrative - Reported* Type Description Date Medical History METABOLIC SYNDROME Medical History SYNCOPE Medical History anxiety Surgical History WISDOM TEETH Surgical History TONSILECTOMY Surgical History ENDOSCOPY AND COLONSCOPY Surgical History C section Surgical History gastric sleeve Hospitalization History see above Verisim Other Hisqqpm general Narrative - Reported* Type Description Date Medical History METABOLIC SYNDROME Medical History SYNCOPE Medical History anxiety Surgical History WISDOM TEETH Surgical History TONSILECTOMY Surgical History ENDOSCOPY AND COLONSCOPY Surgical History C section Surgical History gastric sleeve Surgical History cholcystectomy 09/10/2022 Hospitalization History see above Verisim Other InstructionsNot on filedocumented in this encounter [facility] Narrative* Auth/Cert Specialty Diagnoses / Procedures Referred By Contac t Referred To Contact Diagnoses Morbid obesity (HCC) Obstructive sleep apnea GERD (gastroesophageal reflux disease) MORBID OBESITY, OBSTRUCTIVE SLEEP APNEA, GERD Procedures MA LAP, JAY RESTRICT PROC, LONGITUDINAL GASTRECTOMY XI ROBOTIC LAPAROSCOPIC GASTRECTOMY SLEEVE , LIVER BIOPSY, EGD- GI SCHEDULED Patricia Curry, [address] [facility] [address] [place] [address] Namshi [address] [place] [address] Referral ID Status Reason Start Date Expiration Date Visits Re quested Visits Authorized [id number] 1 1 [employer] Phone: Summary Purpose Family History No Family History Records FoundNo Family History Records FoundNo Family History Records FoundNo Family History Records FoundNo Family History Records FoundNo Family History Records FoundNo Family History Records Found Advance Directives Latest Code Status on File Code Status Date Activated Date Inactivated Comments Full Code 05/16/2021 10:14 AM Advance Directive Response Recorded Date/ Time Advance Directives No April 27, 2 019 7:20am Latest Code Status on File Code Status Date Activated Date Inactivated Comments Full Code 09/19/2020 11:44 PM 09/24/2020 5:00 PM Reason for Referral Status Reason Specialty Diagnoses / Procedures Referred By Contact Referred To Contact [facility] Diagnoses LYNN (obstructive sleep apnea) Procedures Baseline Diagnostic Sleep Study Ike Ortiz MD [address] [facility] [address] [place] [address] Chief Complaint and Reason for Visit Chief Complaint Dysuria Additional Source Comments INFORMATION SOURCE (unrecogn ized section and content) DATE CREATED AUTHOR 07/31/2017 [facility] DATE CREATED AUTHOR AUTHOR'S ORGANIZ ATION [facility] DATE CREATED AUTHOR AUTHOR'S ORGANIZ ATION 12/03/2021 [facility] DATE CREATED AUTHOR AUTHOR'S ORGANIZ ATION 01/12/2022 [facility] DATE CREATED AUTHOR AUTHOR'S ORGANIZ ATION 02/11/2022 [facility] DATE CREATED AUTHOR AUTHOR'S ORGANIZ ATION 09/13/2022 [facility] DATE CREATED AUTHOR AUTHOR'S ORGANIZ ATION 01/17/2023 [facility] dical Specialists EPIC Reason for Visit (unrecogniz ed section and content) Status Reason Specialty Diagnoses / Procedures Referred By Contact Referred To Contact [facility] Diagnoses LYNN (obstructive sleep apnea) Procedures Baseline Diagnostic Sleep Study Ike Ortiz MD [address] [facility] [address] [place] [address] Status Reason Specialty Diagnoses / Procedures Referre d By Contact Referred To Contact Diagnoses K21.9 GERD E66.9 OBESITY Procedures MA EGD TRANSORAL BIOPSY SINGLE/MULTIPLE EGD BIOPSY Patricia Curry DO [address] [facility] [address] [place] [address] [facility] Care Teams (unrecognized sec tion and content) Ammunition Specialist Relationship Specialty Start Date End Date Stephane Martin MD [address] [place], [place] [id number] PCP - General 05/17/20 Ammunition Specialist Relationship Specialty Start Date End Date Stephane Martin MD [address] [place], [place] [id number] PCP - General 05/17/20 Team Status: Inactive Member Role Status Dates Ale Shields APRN Attending Provider Active Ammunition Specialist Relationship Specialty Start Date End Date Margot Toure DO [address] [place] [address] PCP - General Family Medicine 01/03/23 Ordered Prescriptions (unrec ognized section and content) Prescription Sig Dispensed Refills Start Date End Da te famotidine (PEPCID) 20 MG tablet Take 1 tablet by mouth 2 times daily 60 tablet 0 05/16/2021 enoxaparin (LOVENOX) 40 MG/0.4ML injection Inject 0.4 mLs into the skin 2 times daily for 14 days 11.2 mL 0 05/16/2021 05/30/2021 cyclobenzaprine (FLEXERIL) 10 MG tablet Take 1 tablet by mouth 3 times daily as needed for Muscle spasms 21 tablet 0 05/16/2021 05/26/2021 promethazine (PHENERGAN) 25 MG tablet Take 1 tablet by mouth 4 times daily as needed for Nausea 30 tablet 0 05/16/2021 05/24/2021 oxyCODONE-acetaminophen (PERCOCET) 5-325 MG per tabletIndications:Post-op pain Take 1 tablet by mouth every 6 hours as needed for Pain for up to 7 days. 28 tablet 0 05/16/2021 05/23/2021 Scheduled Active and Recently Administ ered Medications (unrecognized section and content) Medication Order 05/15/2021 05/16/2021 05/17/2021 ceFAZolin (ANCEF) 3000 mg in dextrose 5 % 100 mL IVPB (COMPLETED) 3,000 mg, IntraVENous, ONCE, 1 dose, On Fri05/16/21 at 0630, Antimicrobial Indications: Surgical Prophylaxis, Pre-op (day of surgery) 0731 (Given - Provider: Sharmin Sam APRN - [employer] CARRIAGE OPERATOR) ceFAZolin (ANCEF) 3000 mg in sterile water 30 mL IV syringe (COMPLETED) 3,000 mg, IntraVENous, EVERY 8 HOURS, 2 doses, First dose (after last reorder) on Fri05/16/21 at 1600, Last dose on Fri05/17/21 at 0000, Antimicrobial Indications: Surgical Prophylaxis, Administer over 5 mins. 1537 (Given - Provider: Hannha Zavaleta RN) 0017 (Given - Provider: Nohemy Underwood, RN) famotidine (PEPCID) 20 mg in sodium chloride (PF) 10 mL injection(Linked Group 1) 20 mg, IntraVENous, 2 TIMES DAILY, First dose on Fri05/16/21 at 1030, Until Discontinued, Administer if oral route cannot be used, Post-op 1231 (Given - Provider: Hannah Zavaleta RN)2007 (See Alternative - Provider: Nohemy Underwood RN) 09 (See Alternative - Provider: Hannah Zavaleta RN)2100 (Due) famotidine (PEPCID) tablet 20 mg(Linked Group 1) 20 mg, Oral, 2 TIMES DAILY, First dose on Fri05/16/21 at 1030, Until Discontinued, Post-op 1231 (See Alternative - Provider: Hannah Zavaleta RN)2007 (Given - Provider: Nohemy Underwood RN) 09 (Given - Provider: Hannah Zavaleta RN)2100 (Due) gabapentin (NEURONTIN) capsule 100 mg 100 mg, Oral, 3 TIMES DAILY, First dose on Fri05/16/21 at 0915, Until Discontinued 914 (Due)1530 (Given - Provider: Hannah Zavaleta RN)2007 (Given - Provider: Nohemy Underwood RN) 0758 (Given - Provider: Hannah Zavaleta RN)133 (Given - Provider: Hannah Zavaleta RN)2100 (Due) heparin (porcine) injection 5,000 Units (COMPLETED) 5,000 Units, SubCUTAneous, ONCE, 1 dose, On Fri05/16/21 at 0630, Pre-op (day of surgery) 0629 (Given - Provider: Whitney Ray RN) heparin (porcine) injection 5,000 Units 5,000 Units, SubCUTAneous, EVERY 8 HOURS SCHEDULED (3 times per day), First dose on Fri05/16/21 at 1430, Until Discontinued 1530 (Given - Provider: Hannah Zavaleta RN)2204 (Given - Provider: Nohemy Underwood RN) 06 (Given - Provider: Nohemy Underwood RN)133 (Given - Provider: Hannah Zavaleta RN)2200 (Due) ipratropium-albuterol (DUONEB) nebulizer solution 1 ampule 1 ampule, Inhalation, EVERY 6 HOURS WHILE AWAKE, First dose on Fri05/16/21 at 0915, Until Discontinued, Initiate RT Bronchodilator Protocol: Yes, q6 hours and PRN 1016 (Not Given - Provider: Sanjay Boyer RCP - Reason: Patient/family refused)1320 (Given - Provider: Sanjay Boyer RCP)2059 (Given - Provider: Giana Carter RCP) 0732 (Given - Provider: [place] Lopes RCP)1317 (Given - Provider: [place] Lopes RCP)2000 (Due) ketorolac (TORADOL) injection 30 mg (COMPLETED) 30 mg, IntraVENous, ONCE, 1 dose, On Liz 05/17/21 at 1045, Do not administer for more than 5 days 1046 (Given - Provid er: Hannah Zavaleta RN) scopolamine (TRANSDERM-SCOP) transdermal patch 1 patch 1 patch, TransDERmal, Administer over 72 Hours, EVERY 72 HOURS, First dose on Fri05/19/21 at 0900, 1.5 mg patch delivers 1 mg over 3 days. Apply patch to hairless area behind the ear., Post-op sodium chloride flush 0.9 % injection 5-40 mL 5-40 mL, IntraVENous, EVERY 12 HOURS SCHEDULED (2 times per day), First dose on Fri05/16/21 at 1030, Until Discontinued, For Line Patency: Peripheral IV = 5 mL; Midline or Central Line = 10 mL/lumen. If following IV push medication, administer flush at same rate as the IV push. Flush volume is determined by type of infusion therapy being given. For non-viscous solutions use: Peripheral IV = 5 mL Midline or Central Line = 10 mL/lumen For viscous solutions (i.e. blood components, parenteral nutrition, contrast media, or after obtaining blood sample) use: Peripheral IV = 10 mL Midline or Central Line = 20 mL/lumen, Post-op 1024 (Not Given - Provider: Hannah Zavaleta RN - Reason: IV Fluid Infusing)2009 (Not Given - Provider: Nohemy Underwood RN - Reason: IV Fluid Infusing) 0759 (Not Given - Provider: Hannah Zavaleta RN - Reason: IV Fluid Infusing)2100 (Due) Continuous Medication Order 05/15/2021 05/16/2021 05/17/2021 lactated ringers infusion 1,000 mL 1,000 mL, IntraVENous, at 50 mL/hr, CONTINUOUS, Starting on Fri05/16/21 at 0630, Pre-op (day of surgery) 0630 (Due) 1631 (Stopped - Provider: Hannah Zavaleta RN) lactated ringers infusion IntraVENous, at 100 mL/hr, CONTINUOUS, Starting on Fri05/16/21 at 0630, Pre-op (day of surgery) 0650 (New Bag - Provider: Whitney Ray RN)0709 (NoRateChange - Provider: LAURA Mantilla CRNA)0856 (Anesthesia Volume Adjustment - Provider: LAURA Mantilla CRNA) 1631 (Stopped - Provider: Hannah Zavaleta RN) lactated ringers infusion IntraVENous, at 125 mL/hr, CONTINUOUS, Starting on Fri05/16/21 at 1030, Post-op 1026 (New Bag - Provider: Hannah Zavaleta RN)1643 (New Bag - Provider: Hannah Zavaleta RN) 0018 (New Bag - Provider: Nohemy Underwood RN)0951 (New Bag - Provider: Hannah Zavaleta RN)1631 (Stopped - Provider: Hannah Zavaleta RN) PRN Medication Order 05/15/2021 05/16/2021 05/17/2021 0.9 % sodium chloride infusion 25 mL, IntraVENous, at 100 mL/hr, PRN, If patient receiving piggyback infusions without ordered maintenance IV fluids or with frequent/long duration piggyback infusions, Starting on Fri05/16/21 at 1014, Administer at the same rate as the piggyback being infused., Post-op bupivacaine (MARCAINE) 0.5 % injection (CANCELED) PRN, Starting on Fri05/16/21 at 0748, Until Fri05/16/21 at 0958, Intra-op 0748 (Given - Provider: Patricia Curry, DO - Comment: Given at incision sites)0843 (Given - Provider: Patricia Curry, DO - Comment: injected at operative site) cyclobenzaprine (FLEXERIL) tablet 10 mg 10 mg, Oral, 3 TIMES DAILY PRN, Starting on Fri05/16/21 at 0851, Until Discontinued, Muscle spasms 0758 (Given - Provid er: Hannah Zavaleta RN)1644 (Given - Provider: Hannah Zavaleta RN) HYDROmorphone (DILAUDID) injection 0.5 mg (COMPLETED) HYDROmorphone (DILAUDID) 1.5mg IV is equivalent to morphine 10mg IV, 0.5 mg, IntraVENous, EVERY 10 MIN PRN, 4 doses, Starting on Fri05/16/21 at 0907, Until Discontinued, Pain Severe (7-10), For Phase I. If Phase II oral narcotics have been administered in the last 60 minutes, do not administer IV narcotics unless specifically approved by provider., PACU only 0912 (Given - Provider: Sivan Lara RN)09 (Given - Provider: Sivan Lara RN)0932 (Given - Provider: Sivan Lara RN)0942 (Given - Provider: Sivan Lara RN) HYDROmorphone (DILAUDID) injection 1 mg HYDROmorphone (DILAUDID) 1.5mg IV is equivalent to morphine 10mg IV, 1 mg, IntraVENous, EVERY 3 HOURS PRN, Starting on Fri05/16/21 at 1014, Until Discontinued, Pain Moderate (4-6), Pain Severe (7-10), If oral and IV narcotics ordered, use oral first and only use IV if oral is ineffective or cannot take oral. Do Not give oral and IV within 1 hour of each other unless specifically ordered., Post-op 1018 (Given - Provider: Hannah Zavaleta RN) 0108 (Given - Provider: Nohemy Underwood RN) metoclopramide (REGLAN) injection 10 mg (COMPLETED) 10 mg, IntraVENous, ONCE PRN, 1 dose, Starting on Fri05/16/21 at 0907, Until Fri05/16/21 at 0916, Nausea, Initial antiemetic therapy., PACU only 0916 (Given - Provider: Sivan Lara RN) ondansetron (ZOFRAN) injection 4 mg 4 mg, IntraVENous, EVERY 6 HOURS PRN, Starting on Fri05/16/21 at 1014, Until Discontinued, Nausea, Post-op 1331 (Given - Provider: Hannah Zavaleta RN)2007 (Given - Provider: Nohemy Underwood RN) 044 (Given - Provider: Nohemy Underwood RN) oxyCODONE-acetaminophen (PERCOCET) 5-325 MG per tablet 1 tablet(Linked Group 2) Mg/kg dosing is based on the oxycodone component., 1 tablet, Oral, EVERY 6 HOURS PRN, Starting on Fri05/16/21 at 0851, Until Discontinued, Pain Moderate (4-6), Maximum dose of acetaminophen is 4000 mg from all sources in 24 hours. 1357 (See Alternative - Provider: Hannah Zavaleta RN)2007 (See Alternative - Provider: Nohemy Underwood RN) 0440 (See Alternative - Provider: Nohemy Underwood RN)1046 (See Alternative - Provider: Hannah Zavaleta RN)1644 (See Alternative - Provider: Hannah Zavaleta RN) oxyCODONE-acetaminophen (PERCOCET) 5-325 MG per tablet 2 tablet(Linked Group 2) Mg/kg dosing is based on the oxycodone component., 2 tablet, Oral, EVERY 6 HOURS PRN, Starting on Fri05/16/21 at 0851, Until Discontinued, Pain Severe (7-10), Maximum dose of acetaminophen is 4000 mg from all sources in 24 hours. 1357 (Given - Provider: Hannah Zavaleta RN)2008 (Given - Provider: Nohemy Underwood RN) 0440 (Given - Provider: Nohemy Underwood RN)1046 (Given - Provider: Hannah Zavaleta RN)1644 (Given - Provider: Hannah Zavaleta, ANCELMO) promethazine (PHENERGAN) tablet 25 mg 25 mg, Oral, EVERY 6 HOURS PRN, Starting on Fri05/16/21 at 0850, Until Discontinued, Nausea 0023 (Given - Provid er: Nohemy Underwood RN)0950 (Given - Provider: Hannah Zavaleta RN) sodium chloride 0.9 % irrigation (COMPLETED) CONTINUOUS PRN, Starting on Fri05/16/21 at 0800, Intra-op 0800 (New Bag - Provider: Patricia Curry, DO - Comment: 1000 ml. poured to back table, 1000 ml. for suction director behavioral health) sodium chloride flush 0.9 % injection 5-40 mL 5-40 mL, IntraVENous, PRN, Starting on Fri05/16/21 at 1014, Until Discontinued, Line Care, After every IV line use, Post-op Linked Groups Order Group 1: famotidine (PEPCID) tablet 20 mgJump to med 20 mg, Oral, 2 TIMES DAILY, First dose on Fri05/16/21 at 1030, Until Discontinued, Post-op Or famotidine (PEPCID) 20 mg in sodium chloride (PF) 10 mL injectionJump to med 20 mg, IntraVENous, 2 TIMES DAILY, First dose on Fri05/16/21 at 1030, Until Discontinued
Administer if oral route cannot be used
Post-op Group 2: oxyCODONE-acetaminophen (PERCOCET) 5-325 MG per tablet 1 tabletJump to med Mg/kg dosing is based on the oxycodone component.
1 tablet, Oral, EVERY 6 HOURS PRN, Starting on Fri05/16/21 at 0851, Until Discontinued, Pain Moderate (4-6)
Maximum dose of acetaminophen is 4000 mg from all sources in 24 hours.
Or oxyCODONE-acetaminophen (PERCOCET) 5-325 MG per tablet 2 tabletJump to med Mg/kg dosing is based on the oxycodone component.
2 tablet, Oral, EVERY 6 HOURS PRN, Starting on Fri05/16/21 at 0851, Until Discontinued, Pain Severe (7-10)
Maximum dose of acetaminophen is 4000 mg from all sources in 24 hours.
Goals (unrecognized section and content) Goals may be documented in a n alternate section FOR RECORDS PERTAINING TO PATIENTS WHO ARE OR HAVE BEEN ENROLLED IN A CHEMICAL DEPENDENCY/SUBSTANCEABUSE PROGRAM, SOME INFORMATION MAY BE OMITTED. This clinical summary was aggregated from multiple sources. Caution should be exercised in using it in the provision of clinical care. This summary normalizes information from multiple sources, and as a consequence, information in this document may materially change the coding, format and clinical context of patient data. In addition, data may be omitted in some cases. CLINICAL DECISIONS SHOULD BE BASED ON THE PRIMARY CLINICAL RECORDS. [facility]. provides no warranty or guarantee of the accuracy or completeness of information in this document.
[2023-02-11 11:07] LABS: Age Gdln ACOG Testing Note (.); IGP, rfx Aptima HPV ASCU Note (.)
== END 2023-02-05 20:22 | disposition home or self-care (01) ==
LOC: LAB 20:21
PROVIDERS: Visit Provider Obstetrics & Gynecology
DX: Z01.419 Encounter for gynecological examination (general) (routine) without abnormal findings (principal)
CPT/HCPCS: G0145

== ENCOUNTER 2023-02-12 11:27 | Outpatient (OUT) | payer MEDICAID, SELFPAY ==
--- OUTSIDE RECORDS SUMMARY | 2023-02-12 11:31 | XMS_ITS | CCD ---
Author Name Unknown Address [address] [place] [address] Organization [facility] Care Team Providers Care Pacu Rn Name Role Phone Neo Anderson Unavailable Unavailable Neo Anderson Unavailable Unavailable Jose Maria Santoyo MD, [facility] Primary Care Provider DOC OKEEFE Referring Unavailable JOSE MARIA SANTOYO STEPHANE Primary Care Unavailabl e DOC OKEEFE E Referring Unavailable [facility] Primary Care Unavailabl e IKE ORTIZ Referring Unavailable [facility], [facility] Primary Care Unavailabl e Kimberly, Ale Unavailable Provider, None Primary Care Unavailable [...] Unavailable WEST, DR JAMEEL Stern Admitting Unavailable ZIBONILLA, DR COURTNEY [employer]ucker [employer] Unavailable REQUEST, NONE [...] Unavailable WEST, DR JAMEEL Stern Admitting Unavailable Ale Shields Admitting Unavailable Ale Shields Attending Unavailable NO FAMILY, PHYSICIAN Primary Care Unavailable LAURA Shields Attending Provider [phone] Ale Shields Unavailable PATRICIA CURRY Attending Unavailable PATRICIA CURRY Admitting Unavailable YAW, MARGOT Primary Care Unavailable WillowLilia Unavailable Margot Toure DO Primary Care Provider NIGEL ADAMES Attending Unavailable YAW MARGOT G Attending Unavailable NIGEL ADAMES Attending Unavailable YAW MARGOT Sudheer Attending Unavailable YAW MARGOT G Referring Unavailable YAW MARGOT G Primary Care Unavailable TATIANA YAP Attending Unavailable MARGOT TOURE Referring Unavailable YAW MARGOT G Primary Care Unavailable Allergies Allergy Classification Reported Allergen(s) Allergy Type Date of Onset Reaction(s) Facility (3 sources) Ibuprofen; Translations: [IBUPROFEN] Drug Allergy 09-19-2021 [facility] Medications Current Medications Medication Drug Class(es) Dates [...] 12 hrs for 10 day(s) Oct, Active aspirin 81 mg chewable tablet (1 source) Platelet Aggregation Inhibitor, Nonsteroidal Anti-inflammatory Drug aspirin 81 mg chewab le tablet Chew 1 tablet (81 mg total) and swallow in the morning. 0 Active B-12 1000 MCG (1 source) take 1 tablet under the tongue once daily B-12 1000 MCG 1 tablet under the tongue and allow to dissolve Sublingual Once a day Active busPIRone hydrochloride 10 mg oral tablet (9 sources) Start: 06-06-2020 take 1 tablet by mouth three times daily busPIRone (BUSPAR) 10 MG tablet Take 10 mg by mouth 3 times daily 0 06/06/2020 Active End: 02-07-2023 take 1 tablet by mouth once daily busPIRone (BUSPAR) 30 mg tablet 1 tablet Orally daily 0 02/07/2023 Discontinued (Patient Stopped On Own) BuSpar Active Calcium Carbonate / vitamin D3 (2 sources) calcium carbonate/vitamin D3 (CALCIUM WITH VITAMIN D [...] spasms 21 tablet 0 05/16/2021 05/26/2021 Active dextromethorphan hydrobromide 30 mg / pyrilamine maleate 30 mg oral tablet (1 source) Uncompetitive R-nvsanz-R-aspartate Receptor Antagonist, Sigma-1 Agonist Start: 2020 take 1 tablet by mouth every eight hours [place] DMT 30-30 MG 1 tablet Orally every 8 hours for 7 days Nov, Active 0.4 ml enoxaparin sodium 100 mg/ml prefilled syringe (1 source) Low Molecular Weight Heparin Start: 2021 End: 2021 enoxaparin (LOVENOX) 40 MG/0.4ML injection Inject 0.4 mLs into the skin 2 times daily for 14 days 11.2 mL 0 05/16/2021 05/30/2021 Active ferrous sulfate 325 mg oral tablet (4 sources) Start: 2020 End: 2022 take 1 tablet by mouth once daily at breakfast ferrous sulfate (IRON 325) 325 (65 Fe) MG tablet Indications: Low iron Take 1 tablet by mouth daily (with breakfast) 90 tablet 1 07/28/2020 Active gabapentin 100 mg oral capsule (1 source) Anti-epileptic Agent Start: 2021 gabapentin (NEURONTIN) capsule 100 mg 1 ml heparin sodium, porcine 5000 unt/ml prefilled syringe (2 sources) Unfractionated Heparin, Anti-coagulant Start: 2021 End: 2021 heparin (porcine) injection 5,000 Units 1 ml HYDROmorphone hydrochloride 1 mg/ml cartridge (3 sources) Opioid Agonist Start: 2021 HYDROmorphone (DILAUDID) injection 1 mg Start: 05-16-2021 End: 05-16-2021 HYDROmorphone (DILAUDID) 1 M G/ML injection Start: 05-16-2021 End: 05-16-2021 HYDROmorphone (DILAUDID) inj ection 0.5 mg hydrOXYzine hydrochloride 25 mg oral tablet (8 sources) Antihistamine Start: 04-24-2021 take 1 tablet [...] Iron (2 sources) Iron Active lactobacillus acidophilus [id number] unt / pectin 100 mg oral tablet (2 sources) acidophilus-pect in, citrus 25 million cell -100 mg tablet Take by mouth 3 (three) times a day with meals. 0 Active metFORMIN hydrochloride 500 mg oral tablet (1 source) Biguanide Start: take 1 tablet by mouth twice daily metFORMIN (GLUCOPHAGE) 500 MG tablet Take 500 mg by mouth 2 times daily 0 03/12/2021 Active MULTIVITAMIN ORAL (2 sources) MULTIVITAMIN ORA L Take 1 tablet by [...] Active ondansetron 4 mg disintegrating oral tablet (3 sources) Serotonin-3 Receptor Antagonist Start: take 1 tablet by mouth every eight hours as needed for nausea ondansetron ODT (ZOFRAN ODT) 4 mg disintegrating tablet Dissolve 1 tablet (4 mg total) on tongue every 8 (eight) hours as needed for nausea for up to 10 doses. 10 tablet 0 01/26/2022 Active Start: 05-16-2021 ondansetron (Z OFRAN) injection 4 mg pantoprazole 40 mg delayed release oral tablet (2 sources) Proton Pump Inhibitor take 1 tablet by [...] Active promethazine hydrochloride 25 mg oral tablet (4 sources) Phenothiazine Start: 05-17-19 End: 05-25-19 take 1 tablet by mouth four times daily as needed for nausea promethazine (PHENERGAN) 25 MG tablet Take 1 tablet by mouth 4 times daily as needed for Nausea 30 tablet 0 05/16/2021 05/24/2021 Active Start: 05-16-2021 promethazine ( PHENERGAN) tablet 25 mg End: 02-07-2023 take 1 tablet by mouth every six hours as needed for nausea and vomiting promethazine (PHENERGAN) 25 mg tablet Take 1 tablet (25 mg total) by mouth every 6 (six) hours as needed for nausea or vomiting. 0 02/07/2023 Discontinued (Therapy completed) pyridoxine hydrochloride 25 mg oral tablet (2 sources) Start: 01-03-2023 take 1 tablet by mouth [...] infusion vitamin b12 0.5 mg oral tablet (2 sources) Vitamin B12 take 1 tablet by mouth in the morning cyanocobalamin 500 MCG tablet Take 1 tablet (500 mcg total) by mouth in the morning. 0 Active Zinc (2 sources) take 1 tablet by mouth in the [...] in sterile water 30 mL IV syringe 12 hr dextromethorphan hydrobromide 30 mg / guaiFENesin 600 mg extended release oral tablet (2 sources) Uncompetitive Y-agqknj-I-asparta te Receptor Antagonist, Sigma-1 Agonist Start: 01-14-2022 End: 02-07-2023 take 1 tablet by mouth every twelve hours as needed dextromethorphan-gu aiFENesin (MUCINEX DM) 30-600 mg tablet extended release 12 hr Take 1 tablet by mouth every 12 (twelve) hours as needed (cough and congestion). 28 each 0 01/14/2022 02/07/2023 Discontinued (Patient Stopped On Own) diphenhydrAMINE hydrochloride 25 mg oral capsule (2 sources) Histamine-1 Receptor Antagonist End: 02-07-2023 take 1 capsule by mouth once daily as needed for sleep diphenhydrAMINE (BENADRYL) 25 mg capsule Take 1 capsule (25 mg total) by mouth nightly as needed for sleep. 0 02/07/2023 Discontinued (Therapy completed) doxylamine succinate 25 mg oral tablet (2 sources) Start: 01-03-2023 End: 02-07-2023 take 1 tablet by mouth once daily as needed for sleep doxylamine (UNISOM) 25 mg tablet Take 1 tablet (25 mg total) by mouth nightly as needed for sleep. 30 tablet 0 01/03/2023 02/07/2023 Discontinued (Therapy completed) famotidine 20 mg oral tablet (4 sources) Histamine-2 Receptor Antagonist Start: 01-26-2022 End: 02-07-2023 take 1 tablet by mouth in the morning, then take 1 tablet by mouth at bedtime famotidine (PEPCID) 20 mg tablet Take 1 tablet (20 mg total) by mouth in the morning and 1 tablet (20 mg total) before bedtime. 20 tablet 0 01/26/2022 02/07/2023 Discontinued (Therapy completed) Start: 05-16-2021 take 1 tablet by tatiana th twice daily famotidine (PEPCID) 20 MG tablet Take 1 tablet by mouth 2 times daily 60 tablet 0 05/16/2021 Active Start: 05-16-2021 famotidine (PE PCID) tablet 20 mg fluticasone propionate 0.05 mg/actuat metered dose nasal spray (4 sources) Corticosteroid Start: 01-14-2022 End: 02-07-2023 take 1 spray(s) nasal route in the morning fluticasone propionate (FLONASE) 50 mcg/actuation nasal spray Administer 1 spray into each nostril in the morning. 16 g 0 01/14/2022 02/07/2023 Discontinued (Therapy completed) Start: 09-13-2019 take 1 spray(s) nasa l route once daily Flonase Allergy Relief 50 MCG/ACT 1 spray in each nostril Nasally Once a day for 14 day(s) Nov, Active 1 ml ketorolac tromethamine 30 mg/ml cartridge [...] Date Documented Da te Episodic/Chronic Anxiety disorders (6 sources) Anxiety; Translations: [Anxiety disorder, unspecified] Onset: [...] sources) Dysuria; Translations: [Dysuria] Onset: 2 Episodic Hypertension complicating ; childbirth and the puerperium (2 sources) Hypertension complicating ; Translations: [Unspecified maternal hypertension, second trimester] Onset: 3 02-07-2023 Chronic Immunizations and screening for infectious disease (4 sources) Contact with and (suspected) exposure to other viral communicable diseases; Translations: [Contact with and (suspected) exposure to unspecified communicable disease] Onset: 1 Resolved: 1 Episodic Other endocrine disorders (3 sources) Polycystic ovaries; Translations: [Polycystic ovarian syndrome] Chronic Other endocrine disorders (3 sources) Increased androgen level; 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] Chronic Other gastrointestinal disorders (5 sources) History of sleeve gastrectomy; Translations: [Bariatric surgery status] Onset: 2 Episodic Other nervous system disorders (1 source) Postoperative [...] sources) Obesity; Translations: [Obesity, unspecified] Chronic Other and delivery including normal (3 sources) Dichorionic diamniotic twin ; Translations: [Twin , dichorionic/diamniotic , second trimester] Onset: 3 02-07-2023 Episodic Other screening for suspected conditions (not mental disorders or infectious disease) (4 sources) Serum testosterone level abnormal; Translations: [Other specified abnormal findings of blood chemistry] Onset: 3 Episodic Other upper respiratory infections (2 sources) [...] parts of digestive tract] Onset: 3 Episodic Residual codes; unclassified (1 source) Gestation period, 16 weeks; Translations: [16 weeks gestation of ] 02-07-2023 Episodic Residual codes; unclassified (1 source) 16 weeks gestation of ; Translations: [16 weeks gestation of ] Onset: 3 Episodic Residual codes; unclassified (1 source) Acquired absence of stomach [part of]; Translations: [Acquired absence of stomach (part of)] Onset: 3 Episodic Substance-related disorders (4 sources) Smoker; Translations: [Nicotine dependence, unspecified, uncomplicated] Onset: 1 06-28-2020 Chronic Varicose veins of lower extremity (4 sources) Varicose veins of bilateral lower extremities with pain; Translations: [VARICOSE VNS JOVANA LOW EXTREM W/PAIN] Onset: 2 Episodic Past or Other Problems Problem Classification Problem Date Documented Date Episodic/Chronic Blindness and vision defects (2 sources) Astigmatism; Translations: [Unspecified astigmatism, unspecified eye] Onset: 04-26-2020 04-26-2020 Episodic Diabetes mellitus without complication (4 sources) Prediabetes; Translations: [Prediabetes] Onset: 06-28-2020 06-28-2020 Episodic Mood disorders (2 sources) Mood disorders Onset: 08-17-2018 08-17-2018 Nutritional deficiencies (6 sources) Serum iron low; Translations: [Iron deficiency] Onset: 09-01-2020 09-01-2020 Episodic Other infections; including parasitic (2 sources) Personal history of other infectious and parasitic diseases; Translations: [History of COVID-19] Onset: 11-03-2020 11-03-2020 Episodic Residual codes; unclassified (6 sources) H/O: hypertension; Translations: [Personal history of other complications of , childbirth and the puerperium] Onset: 06-28-2020 06-28-2020 Episodic Screening and history of mental health and substance abuse codes (2 sources) History of clinical finding in subject; Translations: [Personal history of nicotine dependence] Onset: 01-02-2021 01-02-2021 Episodic Unclassified (1 source) Cough R05.9 Unclassified (2 sources) Onset: 09-19-2021 09-19-2021 Results Test Name Value Interpretation Reference Range Facility Ultrasound - Officeon 2022 Radiology Study observation (narrative) [facility] HIV 1&2 AB/AG Screen (P24 AG )on 12-20-2022 HIV 1&2 AB/AG Non-Reactive [facility] Hepatitis B surface antigeno n 12-20-2022 Hepatitis B Surface Antigen Negative [facility] No Panel Informationon 12-20 [facility] Rubella IGG immune statuson 12-20-2022 Rubella immune IgG 1.96 [facility] Syphilis Total(Unknown Syphi lis Status)on 12-20-2022 Syphilis Non-Reactive [facility] Ultrasound - Officeon 2022 SEE SCANNED REPORt MANUAL LY TRANSCRIBED RESULTS [facility] COVID + FLU Quick Testingon 10-12-2022 SARS-CoV-2 (COVID-19) RNA BECCA+probe Ql (Unsp spec) negtaive [employer] [facility] [employer] Other COVID + FLU Quick Testing Negative [employer] Other Basic Metabolic Profon 09-11 Anion gap [Moles/Vol] 9 mmol/L Normal 9-17 [facility] Comment on above: Performed By: #### B MP, CBC, PT #### [employer] [address] [place] [address] Video Producer: Anthony Aguilar MD Calcium [Mass/Vol] 8.8 mg/dL Normal 8.6-10.4 [facility] Comment on above: Performed By: #### B MP, CBC, PT #### [facility] [address] [place] [address] Video Producer: Anthony Aguilar MD Chloride [Moles/Vol] 106 mmol/L Normal 98-107 [facility] Comment on above: Performed By: #### B MP, CBC, PT #### [facility] [address] [place] [address] Video Producer: Anthony Aguilar MD CO2 [Moles/Vol] 23 mmol/L Normal 20-31 [facility] Comment on above: Performed By: #### B MP, CBC, PT #### [facility] [address] [place] [address] Video Producer: Anthony Aguilar MD Creatinine [Mass/Vol] 0.7 mg/dL Normal 0.5-0.9 [facility] Comment on above: Performed By: #### B MP, CBC, PT #### [address] [address] Video Producer: Anthony Aguilar MD GFR/1.73 sq M.predicted among non-blacks MDRD (S/P/Bld) [Vol rate/Area] mL/min/{1.73_m2} Normal >60 [facility] Comment on above: Result Comment: These results [...] By: #### B MP, CBC, PT #### [facility] [employer] [address] [place] [address] Video Producer: Anthony Aguilar MD Glucose [Mass/Vol] 79 mg/dL Normal 70-99 [facility] Comment on above: Performed By: #### B MP, CBC, PT #### [facility] [employer] [address] [place] [address] Video Producer: Anthony Aguilar MD Potassium [Moles/Vol] 4.1 mmol/L Normal 3.7-5.3 [facility] Comment on above: Performed By: #### B MP, CBC, PT #### [facility] [employer] [address] [place] [address] Video Producer: Anthony Aguilar MD Sodium [Moles/Vol] 138 mmol/L Normal 135-144 [facility] Comment on above: Performed By: #### B MP, CBC, PT #### [facility] [employer] [address] [place] [address] Video Producer: Anthony Aguilar MD Urea nitrogen [Mass/Vol] 11 mg/dL Normal 6-20 [facility] Comment on above: Performed By: #### B FIFI, CBC, PT #### [facility] [employer] [address] [place] [address] Video Producer: Anthony Aguilar MD CBCon 09-11-2022 Erythrocyte distribution width (RBC) [Ratio] 13.2 % Normal 11.8-14.4 [facility] Comment on above: Performed By: #### B FIFI, CBC, PT #### [facility] [employer] [address] [place] [address] Video Producer: Anthony Aguilar MD Hematocrit (Bld) [Volume fraction] 41.6 % Normal 36.3-47.1 [facility] Comment on above: Performed By: #### B MP, CBC, PT #### [facility] [employer] [address] [place] [address] Video Producer: Anthony Aguilar MD Hemoglobin (Bld) [Mass/Vol] 13.3 g/dL Normal 11.9-15.1 [facility] Comment on above: Performed By: #### B MP, CBC, PT #### [address] [address] Video Producer: Anthony Aguilar MD MCH (RBC) [Entitic mass] 28.3 pg Normal 25.2-33.5 [facility] Comment on above: Performed By: #### B MP, CBC, PT #### [address] [address] Video Producer: Anthony Aguilar MD MCHC (RBC) [Mass/Vol] 32.0 g/dL Normal 28.4-34.8 [facility] Comment on above: Performed By: #### B MP, CBC, PT #### [address] [address] Video Producer: Anthony Aguilar MD MCV (RBC) [Entitic vol] 88.5 fL Normal 82.6-102.9 [facility] Comment on above: Performed By: #### B MP, CBC, PT #### [address] [address] Video Producer: Anthony Aguilar MD NRBC Automated 0.0 per 100 WBC Normal 0.0 [facility] Comment on above: Performed By: #### B MP, CBC, PT #### [address] [address] Video Producer: Anthony Aguilar MD Platelet mean volume (Bld) [Entitic vol] 9.7 fL Normal 8.1-13.5 [facility] Comment on above: Performed By: #### B MP, CBC, PT #### [facility] [employer] [address] [place] [address] Video Producer: Anthony Aguilar MD Platelets (Bld) [#/Vol] 276 10*3/uL Normal 138-453 [facility] Comment on above: Performed By: #### B MP, CBC, PT #### [address] [address] Video Producer: Anthony Aguilar MD RBC (Bld) [#/Vol] 4.70 10*6/uL Normal 3.95-5.11 [facility] Comment on above: Performed By: #### B MP, CBC, PT #### [address] [address] Video Producer: Anthony Aguilar MD WBC (Bld) [#/Vol] 7.4 10*3/uL Normal 3.5-11.3 [facility] Comment on above: Performed By: #### B MP, CBC, PT #### [facility] [employer] [address] [place] [address] Video Producer: Anthony Aguilar MD PTon 09-11-2022 INR Coag (PPP) [Relative time] 1.0 {INR} Normal [facility] Comment on above: Result Comment: Therapeutic Range: Moderate Anticoagulant Intensity: INR = 2.0-3.0 High Anticoagulant Intensity: INR = 2.5-3.5 Performed By: #### B MP, CBC, PT #### [facility] [employer] [address] [place] [address] Video Producer: Anthony Aguilar MD PT Coag (PPP) [Time] 12.9 s Normal 11.7-14.9 [facility] Comment on above: Performed By: #### B MP, CBC, PT #### [address] [address] Video Producer: Anthony Aguilar MD Surgical Pathologyon 023 Surgical Pathology (NOTE) Path Number: [id number] -- Diagnosis -- GALLBLADDER, CHOLECYSTECTOMY: -CHRONIC CHOLECYSTITIS WITH CHOLESTEROLOSIS AND CHOLELITHIASIS. Jameel Lawler M.D. Electronically Signed Out 09/12/2022 Clinical Information Pre-op Diagnosis: GALLSTONES Operative Findings: [...] lesions or periductal lymph nodes are identified. Cell Coverer sections 1c. tm Microscopic Description Microscopic examination performed. Processing Lab: [address] [address] Interpretation Performed at [address] [phone] SURGICAL PATHOLOGY CONSULTATION Patient Name: FINA VELÁSQUEZ [facility] Rec: [id number] [facility] [employer] [facility] ANATOMIC PATHOLOGY [address] [place] [phone] [facility] Urine Cultureon 02-08-2022 Bacteria identified Cx Nom (U) Reason for Exam Dysuria Urine ORGANISM: Escherichia coli (O:ESCCOL) [place] Count >100,000 Aerobic LISA Charge (NMIC56) ---- [...] RESISTANT TO ALL B-LACTAM DRUGS. PERFORMED BY: [place] [address] PATHOLOGIST COMMUNITY ADVOCATE SAMIRA WEN M.D. [facility] Comment on above: Performed By: #### C UU #### [address] VC CONSULT FOLLOWUPon 2021 VC CONSULT FOLLOWUP Patient: FINA VELÁSQUEZ Exam Date: 01/08/2022 : 1995 Gender:F Ordering : DR JAMEEL BURGOS M.D. Admission #: [id number] Family : Order #: [id number] CLICK HERE TO VIEW EXAM RADIOLOGY REPORT [...] Hinton M.D. on 01/08/2022 at 10:10 Normal [facility] VC EXT VENOUS RT LIMITEDon 1 03-10-2021 VC EXT VENOUS RT LIMITED Patient: FINA VELÁSQUEZ Exam Date: 01/08/2022 : 1995 Gender:F Ordering : DR JAMEEL BURGOS M.D. Admission #: [id number] Family : Order #: [id number] CLICK HERE TO VIEW EXAM RADIOLOGY REPORT [...] Hinton M.D. on 01/08/2022 at 10:05 Normal [facility] VC ENDOVENOUS ABL 1ST V RTon 12-31-2021 VC ENDOVENOUS ABL 1ST V RT Patient: FINA VELÁSQUEZ Exam Date: 12/31/2021 : 1995 Gender:F Ordering : DR JAMEEL BURGOS M.D. Admission #: [id number] Family : Order #: [id number] CLICK HERE TO VIEW EXAM RADIOLOGY REPORT [...] villar. Time out procedure was performed. The right [...] Jameel Burgos MD on 12/31/2021 at 11:06 [facility] ED Clinical Summaryon 2021 ED Clinical Summary [facility] ? Urgent Care [address] [place] [address] Clinical Summary PERSON INFORMATION Name: VERNON VELÁSQUEZ Age: 26 Years Sex: FEMALE : 1995 MRN: Acct#: Visit Reason: OTTERBEIN PHYSICAL Arrival: 11/28/2021 10:39:56 Discharge: 11/28/2021 10:59:00 LOS: 000 00:20 Check In: 11/28/2021 10:39:56 Checkout: 11/28/2021 10:59:00 Address: [address] [place] [address] PCP: Provider, None PROVIDER INFORMATION VITALS INFORMATION Vital Sign Triage Latest Temperature Tympanic Temperature Temporal Artery Pulse Rate O2 Sat Respiratory Rate Blood Pressure / / MEDICAL INFORMATION Medications Given: Allergy Information: No known allergies PHYSICIAN DOCUMENTATION DISCHARGE INFORMATION: Discharge Disposition: Eloped Discharge Location: PATIENT EDUCATION INFORMATION Instructions: Follow-Up: DIAGNOSIS: Patient Understands: Comment: [facility] ED Patient Summaryon ED Patient Summary [facility] ? Urgent Care [address] [place] [address] [id number] PATIENT DISCHARGE INSTRUCTIONS Patient Information Name: VERNON VELÁSQUEZ Age: 26 Years Date of : 1995 Reason For Visit: MICHELLE PHYSICAL Arrival Time: 11/28/2021 10:39:56 Primary Care Physician: Provider, None Attending Physician: Nuno Bradshaw Comment: Patient Education Medication Information: The exam and treatment you received today in the [facility] Emergency Department were for an urgent problem and are not intended as complete care. It is important for you to follow up with a doctor, nurse practitioner, or physician?s fast food assistant restaurant manager for ongoing care. If your symptoms become [...] so we can reach you if necessary. [facility] Emergency Department has provided you with a complete list of medications post discharge. Please inform your backup engineer/provider of your visit and for further instruction [...] for Disease Control and Prevention October 2013 [facility] VC CONSULT FOLLOWUPon 2021 VC CONSULT FOLLOWUP Patient: FINA VELÁSQUEZ Exam Date: 11/28/2021 : 1995 Gender:F Ordering : DR JAMEEL BURGOS M.D. Admission #: [id number] Family : Order #: [id number] CLICK HERE TO VIEW EXAM RADIOLOGY REPORT [...] Hinton M.D. on 11/28/2021 at 10:04 Normal [facility] VC EXT VENOUS LT LIMITEDon 1 VC EXT VENOUS LT LIMITED Patient: FINA VELÁSQUEZ Exam Date: 11/28/2021 : 1995 Gender:F Ordering : DR JAMEEL BURGOS M.D. Admission #: [id number] Family : Order #: [id number] CLICK HERE TO VIEW EXAM RADIOLOGY REPORT [...] Hinton M.D. on 11/28/2021 at 09:45 Normal [facility] VC ENDOVENOUS ABL 1ST V LTon 11-22-2021 VC ENDOVENOUS ABL 1ST V LT Patient: FINA VELÁSQUEZ Exam Date: 11/22/2021 : 1995 Gender:F Ordering : DR JAMEEL BURGOS M.D. Admission #: [id number] Family : Order #: [id number] CLICK HERE TO VIEW EXAM RADIOLOGY REPORT PROCEDURE: VEIN CENTER ENDOVENOUS ABLATION FIRST VEIN LEFT GREAT SAPHENOUS VEIN COMPARISON: VC VENOUS REFLUX JOVANA LMT, 10/17/2021. INDICATIONS: Pain co-occurrent and due to varicose veins of bilateral legs I83.813 OPERATIVE REPORT: The risks and benefits of the procedure had been previously discussed, and were rediscussed at length. Informed written consent was obtained by and Christopher Lucas assisted. Time out procedure was performed. The left [...] Burgos MD on 11/22/2021 at 09:04 Normal [facility] VC COMP CONSULTATIONon 10-17 VC COMP CONSULTATION Patient: FINA VELÁSQUEZ Exam Date: 10/17/2021 : 1995 Gender:F Ordering : DR JAMEEL BURGOS M.D. Admission #: [id number] Family : Order #: [id number] CLICK HERE TO VIEW EXAM RADIOLOGY REPORT PROCEDURE: VC VEIN CENTER CONSULTATION VEIN CENTER - OFFICE [...] arterial disease 5. CEAP: C2, EC, AP, NH PLAN: 1. Continued use of compression stockings [...] M.D. on 10/17/2021 at 12:46 Normal [facility] Basic Metabolic Panelon 04-0 Anion gap [Moles/Vol] 8 mmol/L Low 9 - 17 mmol/L [facility] Calcium [Mass/Vol] 8.6 mg/dL 8.6 - 10. 4 mg/dL [facility] Chloride [Moles/Vol] 106 mmol/L 98 - 107 mmol/L [facility] CO2 [Moles/Vol] 23 mmol/L 20 - 31 mmol/L [facility] Creatinine [Mass/Vol] 0.67 mg/dL 0.50 - 0.90 mg/dL [facility] GFR >60 >60 mL/min [facility] GFR Non- >60 >60 mL/min [facility] GFR/1.73 sq M.predicted MDRD (S/P/Bld) [Vol rate/Area] [facility] Comment on above: Average GFR for 20-2 9 years old: 116 mL/min/1.73sq m Chronic Kidney Disease: <60 mL/min/1.73sq m Kidney failure: <15 mL/min/1.73sq m eGFR calculated using average adult body mass. Additional eGFR calculator available at: http://www.[employer].Soweso/multiple_crcl_2011.htm Glucose [Mass/Vol] 83 mg/dL 70 - 99 mg/dL [facility] Interpretation and review of laboratory results Abnormal [facility] Potassium [Moles/Vol] 3.9 mmol/L 3.7 - 5.3 mmol/L [facility] Sodium [Moles/Vol] 137 mmol/L 135 - 144 mmol/L [facility] Urea nitrogen (BldV) [Mass/Vol] 7 mg/dL 6 - 20 mg/dL [facility] CBCon 05-17-2021 Hematocrit (Bld) [Volume fraction] 34.4 % Low 36.3 - 47.1 % [facility] Hemoglobin.gastroin testinal spec 1 Ql (Stl) 11.0 g/dL Low 11.9 - 15.1 g/dL [facility] Interpretation and review of laboratory results Abnormal [facility] MCH (RBC) [Entitic mass] 27.2 pg 25.2 - 33.5 pg [facility] MCHC (RBC) [Mass/Vol] 32.0 g/dL 28.4 - 34.8 g/dL [facility] MCV (RBC) [Entitic vol] 85.1 fL 82.6 - 102.9 fL [facility] NRBC Automated 0.0 0.0 per 100 WBC [facility] Platelet distribution width (Bld) [Ratio] 14.1 % 11.8 - 14.4 % [facility] Platelet mean volume (Bld) [Entitic vol] 10.1 fL 8.1 - 13.5 fL [facility] Platelets (Bld) [#/Vol] 302 10*3/uL [facility] RBC (Bld) [#/Vol] 4.04 10*6/uL 3.95 - 5.1 1 m/uL [facility] WBC (Bld) [#/Vol] 13.7 10*3/uL [facility] SURGICAL PATHOLOGY REPORTon 05-17-2021 Surgical Pathology Report -- Diagnosis -- Stomach, gastric remnant , robotic laparoscopic sleeve gastrectomy: Viable segment of stomach with lamina propria acute hemorrhage and minimal chronic inflammation. Lloyd Tyson. Electronically Signed Out 05/17/2021 Clinical Information Pre-op Diagnosis: MORBID OBESITY, OBSTRUCTIVE SLEEP APNEA Operative Findings: GASTRIC REMNANT Operation Performed: XI ROBOTIC LAPAROSCOPIC SLEEVE, EGD Source of Specimen A: GASTRIC REMNANT Gross Description FINA DRENNING, GASTRIC REMNANT 17.0 x 4.5 x 2.5 [...] x 0.5 cm piece of adipose tissue. Cell Coverer sections 1cs. tm Microscopic Description 1 H&E reviewed. Microscopic examination performed. SURGICAL PATHOLOGY CONSULTATION Patient Name: FINA VELÁSQUEZ [facility] Rec: [id number] Path Number: [id number] [facility] ANATOMIC PATHOLOGY [address] [place] [address]. [place], [place] [address] [facility] Basic Metabolic Panelon 04-0 Anion gap [Moles/Vol] 10 mmol/L 9 - 17 mmol/L [facility] Calcium [Mass/Vol] 8.7 mg/dL 8.6 - 10. 4 mg/dL [facility] Chloride [Moles/Vol] 105 mmol/L 98 - 107 mmol/L [facility] CO2 [Moles/Vol] 23 mmol/L 20 - 31 mmol/L [facility] Creatinine [Mass/Vol] 0.75 mg/dL 0.50 - 0.90 mg/dL [facility] GFR >60 >60 mL/min [facility] [employer] GFR Non- >60 >60 mL/min [facility] GFR/1.73 sq M.predicted MDRD (S/P/Bld) [Vol rate/Area] [facility] [employer] Comment on above: Average GFR for 20-2 9 years old: 116 mL/min/1.73sq m Chronic Kidney Disease: <60 mL/min/1.73sq m Kidney failure: <15 mL/min/1.73sq m eGFR calculated using average adult body mass. Additional eGFR calculator available at: http://www.[employer].Soweso/multiple_crcl_2012.htm Glucose [Mass/Vol] 132 mg/dL High 70 - 99 mg/dL [facility] Interpretation and review of laboratory results Abnormal [facility] [employer] Potassium [Moles/Vol] 3.5 mmol/L Low 3.7 - 5.3 mmol/L [facility] Sodium [Moles/Vol] 138 mmol/L 135 - 144 mmol/L [facility] Urea nitrogen (BldV) [Mass/Vol] 10 mg/dL 6 - 20 mg/dL [facility] CBC without Diffon Hematocrit (Bld) [Volume fraction] 38.8 % 36.3 - 47.1 % [facility] Hemoglobin.gastroin testinal spec 1 Ql (Stl) 12.6 g/dL 11.9 - 15.1 g/dL [facility] Interpretation and review of laboratory results Abnormal [facility] MCH (RBC) [Entitic mass] 27.2 pg 25.2 - 33.5 pg [facility] MCHC (RBC) [Mass/Vol] 32.5 g/dL 28.4 - 34.8 g/dL [facility] MCV (RBC) [Entitic vol] 83.8 fL 82.6 - 102.9 fL [facility] NRBC Automated 0.0 0.0 per 100 WBC [facility] Platelet distribution width (Bld) [Ratio] 13.9 % 11.8 - 14.4 % [facility] Platelet mean volume (Bld) [Entitic vol] 9.8 fL 8.1 - 13.5 fL [facility] Platelets (Bld) [#/Vol] 340 10*3/uL [facility] RBC (Bld) [#/Vol] 4.63 10*6/uL 3.95 - 5.1 1 m/uL [facility] WBC (Bld) [#/Vol] 15.0 10*3/uL [facility] POC Glucose Fingerstickon Glucose [Mass/Vol] 77 mg/dL 65 - 105 mg/dL [facility] POCT urine pregnancyon 05-16 Beta HCG ( test) Ql (U) Negative NEGATIVE [facility] Comment on above: Specimens with hCG l evels near the threshold of the test (25 mIU/mL) may give a negative or indeterminate result. In such cases, another test should be performed with a new specimen in 48-72 hours. If early is suspected clinically in this setting, correlation with quantitative serum b-hCG level is suggested. [facility] [id number] 05-15-2021 SARS-CoV-2 (COVID-19) RNA BECCA+probe Ql (Unsp spec) Normal [facility] Comment on above: Performed By: #### C OVID #### [facility] [address] [place], [place] [id number] Video Producer: Anthony Aguilar MD [facility] [address] [place] [address] [place] [address] Video Producer: Jameel Lawler MD SARS-CoV-2 (COVID-19) RNA BECCA+probe Ql (Unsp spec) Not detected Normal NOTDET [facility] Comment on above: Result Comment: The specimen is NEGATIVE for SARS-CoV-2, the novel coronavirus associated with COVID-19. A negative result does not rule out COVID-19. [employer] SARS-CoV-2 for use on the [employer]8800 Systems is a real-time RT-PCR test intended [...] this assay. Fact sheet for Healthcare Providers: https://www.fda.gov/media/910723/download Fact sheet for Patients: https://www.fda.gov/media/530663/download METHODOLOGY: RT-PCR Performed By: #### C OVID #### [facility] [employer] [address] [place], [place] [id number] Video Producer: Anthony Aguilar MD [facility] [address] [place] [address] Video Producer: Jameel Lawler MD [id number] 05-14-2021 SARS-CoV-2 (COVID-19) RNA BECCA+probe Ql (Unsp spec) .NASOPHARYNGEAL SWAB Normal [facility] Comment on above: Performed By: #### C OVID #### [facility] [address], [place] [id number] Video Producer: Anthony Aguilar MD [facility] [address] [place] [address] Video Producer: Jameel Lawler MD Nicotine, Bloodon 05-05-2021 [id number] <2 ng/mL [facility] h Cotinine <2 ng/mL [facility] Nicotine <2 ng/mL [facility] Comment on above: (NOTE) Consistent with abstinence [...] developed and its performance characteristics determined by [facility]. It has not been cleared or approved by the US Food and Drug Administration. This test was performed in a CLIA certified laboratory and is intended for clinical purposes. Performed By: [facility] [address] [place] [address] Non Destructive Testing Scientist: Yara Rodriguez MD [facility] [employer] EKG 12 LeadOrdered By: Diaz Conway on 05-03-2021 Atrial Rate 72 BPM [facility] Work Phone: P Maupin 45 degrees [facility] Work Phone: P-R Interval 142 ms [facility] Work Phone: Q-T Interval 376 ms [facility] Work Phone: QRS Duration 100 ms [facility] Work Phone: QTc Calculation (Bazett) 411 ms [facility] Work Phone: R Maupin 22 degrees [facility] Work Phone: T Maupin 32 degrees [facility] Work Phone: Ventricular Rate 72 BPM [employer] [facility] Work Phone: [facility] Work Phone: EKG 12 Leadon 05-03-2021 Normal sinus rhythm Normal ECG No previous ECGs available [facility] Diaz Elias MD - 05/03/2021 Normal sinus rhythm Normal ECG No previous ECGs available [facility] Work Phone: APTTon 05-02-2021 aPTT Coag (Bld) [Time] 25.0 s [facility] Comment on above: IV Heparin Therapy Range: 48.6-77.8 Basic Metabolic Panelon 04-11 Anion gap [Moles/Vol] 15 mmol/L 9 - 17 mmol/L [facility] Calcium [Mass/Vol] 9.8 mg/dL 8.6 - 10. 4 mg/dL [facility] Chloride [Moles/Vol] 102 mmol/L 98 - 107 mmol/L [facility] CO2 [Moles/Vol] 21 mmol/L 20 - 31 mmol/L [facility] Creatinine [Mass/Vol] 0.55 mg/dL 0.50 - 0.90 mg/dL [facility] GFR >60 >60 mL/min [facility] GFR Non- >60 >60 mL/min [facility] GFR/1.73 sq M.predicted MDRD (S/P/Bld) [Vol rate/Area] [facility] Comment on above: Average GFR for 20-2 9 years old: 116 mL/min/1.73sq m Chronic Kidney Disease: <60 mL/min/1.73sq m Kidney failure: <15 mL/min/1.73sq m eGFR calculated using average adult body mass. Additional eGFR calculator available at: http://www.[employer].Soweso/multiple_crcl_2012.htm Glucose [Mass/Vol] 85 mg/dL 70 - 99 mg/dL [facility] Potassium [Moles/Vol] 4.5 mmol/L 3.7 - 5.3 mmol/L [facility] Sodium [Moles/Vol] 138 mmol/L 135 - 144 mmol/L [facility] Urea nitrogen (BldV) [Mass/Vol] 11 mg/dL 6 - 20 mg/dL [facility] CBCon 05-02-2021 Hematocrit (Bld) [Volume fraction] 41.0 % 36.3 - 47.1 % [facility] Hemoglobin.gastroin testinal spec 1 Ql (Stl) 12.9 g/dL 11.9 - 15.1 g/dL [facility] MCH (RBC) [Entitic mass] 26.9 pg 25.2 - 33.5 pg [facility] MCHC (RBC) [Mass/Vol] 31.5 g/dL 28.4 - 34.8 g/dL [facility] MCV (RBC) [Entitic vol] 85.6 fL 82.6 - 102.9 fL [facility] NRBC Automated 0.0 0.0 per 100 WBC [facility] Platelet distribution width (Bld) [Ratio] 13.7 % 11.8 - 14.4 % [facility] Platelet mean volume (Bld) [Entitic vol] 9.8 fL 8.1 - 13.5 fL [facility] Platelets (Bld) [#/Vol] 380 10*3/uL [facility] RBC (Bld) [#/Vol] 4.79 10*6/uL 3.95 - 5.1 1 m/uL [facility] WBC (Bld) [#/Vol] 11.2 10*3/uL [facility] No Panel Informationon 05-02 [facility] Protime-INRon 05-02-2021 INR Coag (Bld) [Relative time] 1.0 {INR} [facility] Comment on above: Therapeutic Range: Moderate Anticoagulant Intensity: INR = 2.0-3.0 High Anticoagulant Intensity: INR = 2.5-3.5 PT Coag (PPP) [Time] 10.6 s [facility] XR CHEST (2 VW)on 05-02-2021 No acute process. [facility] RIS CONSOLIDATED EXAMINATION: TWO XRAY VIEWS OF THE CHEST 05/02/2021 11:20 am COMPARISON: None. HISTORY: ORDERING SYSTEM PROVIDED HISTORY: preop, obesity TECHNOLOGIST PROVIDED HISTORY: preop, obesity FINDINGS: Heart is normal in size. Lungs are clear. No free air. [facility] RIS CONSOLIDATED Vikki Jose Juan , DO - 05/02/2021 EXAMINATION: TWO XRAY VIEWS OF THE CHEST 05/02/2021 11:20 am COMPARISON: None. HISTORY: ORDERING SYSTEM PROVIDED HISTORY: preop, obesity TECHNOLOGIST PROVIDED HISTORY: preop, obesity FINDINGS: Heart is normal in size. Lungs are clear. No free air. IMPRESSION: No acute process. [facility] Phone: Radiology Study observation (narrative) [facility] Phone: XR CHEST (2 VW)Ordered By: Santos Florez on 05-02-2021 [facility] Phone: [id number] 12-05-2020 SARS-CoV-2 (COVID-19) RNA BECCA+probe Ql (Unsp spec) Normal [facility] Comment on above: Performed By: #### C OVID #### [employer] [address] [place] [address] Video Producer: Anthony Aguilar MD [facility] [address] [place] [address] Video Producer: Jameel Lawler MD SARS-CoV-2 (COVID-19) RNA BECCA+probe Ql (Unsp spec) Not detected Normal [facility] Comment on above: Result Comment: The specimen is NEGATIVE for SARS-CoV-2, the novel coronavirus associated with COVID-19. A negative result does not rule out COVID-19. Lucrecia SARS-CoV-2 for use on the [employer] is a real-time RT-PCR test intended [...] this assay. Fact sheet for Healthcare Providers: https://www.fda.gov/media/503376/download Fact sheet for Patients: https://www.fda.gov/media/276719/download METHODOLOGY: RT-PCR Performed By: #### C OVID #### [facility] [address] [place], [place] [id number] Video Producer: Anthony Aguilar MD [facility] [address] [place] [address] [place] [address] Video Producer: Jameel Lawler MD [id number] 12-04-2020 SARS-CoV-2 (COVID-19) RNA BECCA+probe Ql (Unsp spec) .NASOPHARYNGEAL SWAB Normal [facility] Comment on above: Performed By: #### C OVID #### [facility] [address] [place] [address] Video Producer: Anthony Aguilar MD [facility] [address] [place] [address] [place] [address] Video Producer: Jameel Lawler MD Vital Signs Date Time Vital Sign Value Performing Clinician Facility 02-07-2023 13:34-0500 Body height 170.2 cm Tatiana Yap MD Work Phone: [facility] 02-07-2023 13:34-0500 Body mass index (BMI) [Ratio] 34.14 kg/m2 Tatiana Yap MD Work Phone: [facility] 02-07-2023 13:34-0500 Body weight 98.88 kg Tatiana Yap MD Work Phone: [facility] 02-07-2023 13:34-0500 Diastolic blood pressure 83 mm[Hg] Tatiana Yap MD Work Phone: [facility] 02-07-2023 13:34-0500 Heart rate 76 /min Tatiana Yap MD Work Phone: [facility] 02-07-2023 13:34-0500 Systolic blood pressure 126 mm[Hg] Tatiana Yap MD Work Phone: [facility] 10-12-2022 10:10-0400 Body height 170.18 cm Lilia Willow Other [facility] Other 10-12-2022 10:10-0400 Body mass index (BMI) [Ratio] 32.86 kg/m2 Lilia Willow Other [facility] Other 10-12-2022 10:10-0400 Body temperature 99 [degF] Lilia Willow Other [facility] Other 10-12-2022 10:10-0400 Body weight 95.17 kg Lilia Willow Other [facility] Other 10-12-2022 10:10-0400 Diastolic blood pressure 74 mm[Hg] Lilia Willow Other [facility] Other 10-12-2022 10:10-0400 SaO2% (BldA) [Mass fraction] 98 % Lilia Willow Other [facility] Other 10-12-2022 10:10-0400 Systolic blood pressure 118 mm[Hg] Lilia Willow Other [facility] Other 05-17-2021 15:52-0400 Body temperature 98.49 [degF] Patricia Antoinette SOLITARIO Work Phone: [facility] 04-07-2022 15:52-0400 Diastolic blood pressure 97 mm[Hg] Patricia Curry DO Work Phone: [facility] 05-17-2021 15:52-0400 Heart rate 70 /min Patricia Curry DO Work Phone: [facility] 05-17-2021 15:52-0400 Respiratory rate 18 /min Patricia Curry [employer] Work Phone: [facility] 05-17-2021 15:52-0400 SaO2% (BldA) [Mass fraction] 99 % Patricia Curry [employer] Work Phone: [facility] 05-17-2021 15:52-0400 Systolic blood pressure 138 mm[Hg] Patricia Curry DO Work Phone: [facility] 05-16-2021 06:06-0400 Body mass index (BMI) [Ratio] 43.16 kg/m2 Patricia Curry [employer] Work Phone: [facility] 05-16-2021 06:06-0400 Body weight 125 kg Patricia Curry [employer] Work Phone: [facility] 05-16-2021 05:57-0400 Body height 170.2 cm Patricia Curry [employer] Work Phone: [facility] 05-02-2021 10:35-0400 Body height 170.2 cm Stvz 1 [facility] 05-02-2021 10:35-0400 Body mass index (BMI) [Ratio] 44.95 kg/m2 Stvz 1 [facility] 05-02-2021 10:35-0400 Body temperature 97.2 [degF] Stvz 1 [facility] 05-02-2021 10:35-0400 Body weight 130.18 kg Stvz 1 [facility] 05-02-2021 10:35-0400 Diastolic blood pressure 85 mm[Hg] Stvz 1 [facility] 05-02-2021 10:35-0400 Heart rate 66 /min Stvz 1 [facility] 05-02-2021 10:35-0400 Respiratory rate 18 /min Stvz 1 [facility] 05-02-2021 10:35-0400 SaO2% (BldA) [Mass fraction] 99 % Stvz 1 [facility] 05-02-2021 10:35-0400 Systolic blood pressure 122 mm[Hg] Stvz 1 [facility] 12-04-2020 17:00-0400 Body height 170.18 cm Ale Ginty Other [facility] Other 12-04-2020 17:00-0400 Body mass index (BMI) [Ratio] 43.85 kg/m2 Ale Ginty Other [facility] Other 12-04-2020 17:00-0400 Body temperature 97.4 [degF] Ale Ginty Other [facility] Other 12-04-2020 17:00-0400 Body weight 127.01 kg Ale Ginty Other [facility] Other 12-04-2020 17:00-0400 SaO2% (BldA) [Mass fraction] 99 % Ale Ginty Other [facility] Other Encounters Encounter Date Encounter Type Care Provider Facility Start: 02-07-2023 End: 02-07-2023 ambulatory [facility] Start: 02-07-2023 End: 02-07-2023 Office consultation new/estab patient 60 min Tatiana Yap MD Work Phone: [facility] Comment on above: Hypertension affecti ng in second trimester (Primary Dx); 16 weeks gestation of ; Dichorionic diamniotic twin in second trimester; H/O gastric sleeve Start: 02-05-2023 End: 02-05-2023 ambulatory NIGEL HOPE Not Available Start: 02-05-2023 Chart abstracting Tatiana Yap MD Work Phone: [facility] Start: 02-04-2023 End: 02-04-2023 ambulatory MARGOT Sudheer YAW Not Available Start: 01-15-2023 End: 01-15-2023 ambulatory NIGEL HOPE Not Available Start: 01-07-2023 End: 01-07-2023 ambulatory MARGOT Sudheer GUPTAE Not Available Start: 12-20-2022 End: 12-21-2022 ambulatory NIGEL HOPE Not Available Start: 10-12-2022 End: 10-12-2022 ambulatory Lilia Daugherty Other [facility] Other Start: 10-12-2022 Office outpatient vi sit 15 minutes Lilia Daugherty [facility] Start: 09-11-2022 End: 09-11-2022 ambulatory PATRICIA Alka [facility] Start: 02-10-2022 End: 02-10-2022 ambulatory Ale Shields Other [facility] Other Start: 02-10-2022 Telephone encounter Ale Shields [facility] [address] Start: 02-08-2022 End: 02-08-2022 ambulatory Ale Shields Facility:[facility] Start: 02-08-2022 End: 02-08-2022 ambulatory LAURA Shields Work Phone: [facility] Work Phone: Start: 02-08-2022 End: 02-08-2022 Departed Referred LAURA Shields Work Phone: [facility] [address] [place] Work Phone: Start: 01-08-2022 End: 01-09-[address] JAMEEL BURGOS Facility:[facility] Start: 12-31-2021 End: 01-01-[address] JAMEEL BURGOS Facility:[facility] Start: 11-28-2021 End: 11-28-2021 ambulatory Giuliana Provider Facility:[facility] Start: 11-28-2021 End: 11-29-[address] JAMEEL BURGOS Facility:[facility] Start: 11-22-2021 End: 11-23-[address] NONE LISTED REQUEST Facility:[facility] Start: 10-17-2021 End: 10-18-2021 ambulatory NONE LISTED REQUEST Facility:[facility] Start: 08-03-2021 End: 08-04-[address] JAMEEL BURGOS Facility:[facility] Start: 05-16-2021 End: 05-17-2021 Evaluation and management of inpatient Patricia Curry DO Work Phone: [facility] Comment on above: Post-op pain (Primar y Dx) Start: 05-14-2021 End: 05-19-2021 ambulatory CYN OKEEFE [facility] Start: 05-02-2021 End: 05-06-2021 Subsequent hospital visit by physician Dwight Pat Rm 1 [facility] Pre-Admit Testing Start: 12-04-2020 End: 12-09-2020 ambulatory CYN OKEEFE [facility] Start: 12-04-2020 Office outpatient vi sit 15 minutes Ale Kimberyl [facility] Start: 10-20-2020 End: 10-20-2020 Subsequent hospital visit by physician Patricia Curry DO Work Phone: [facility] [place] Start: 09-06-2020 End: 09-07-2020 ambulatory IKE ANGEL [facility] Start: 09-06-2020 End: 09-06-2020 Subsequent hospital visit by physician Henrietta Sleep Rm 1 [facility] Comment on above: LYNN (obstructive sle ep apnea) Start: 05-28-2017 End: 05-29-2017 Ambulatory Neo Anderson Facility:[id number] Procedures Date Procedure Procedure Detail Performing Clinician Start: 12-20-2022 Antibody screen Tatiana allison MD Work Phone: Start: 12-20-2022 HIV 1&2 AB/AG SCREEN (P24 AG) Nigel Adames DO Work Phone: Start: 12-20-2022 Iaad ia hepatitis b surface antigen Nigel Adames DO Work Phone: Start: 12-20-2022 Syphilis test non-treponemal antibody qual Nigel Adames DO Work Phone: Start: 12-20-2022 TYPE AND SCREEN Nigel Adames DO Work Phone: Start: 12-20-2022 ULTRASOUND OFFICE Nigel Adames DO Work Phone: Start: 05-17-2021 Basic metabolic pane l calcium total Patricia Curry DO Work Phone: Start: 05-16-2021 SURGICAL PATHOLOGY REPORT Patricia Curry DO Work Phone: Start: 05-16-2021 Basic metabolic pane l calcium total Patricia Curry [employer] Work Phone: Start: 05-16-2021 End: 05-16-2021 Laps gstrc rstrictiv px longitudinal gastrectomy Patricia Curry DO Work Phone: Start: 05-16-2021 Glucose blood reagen t strip Patricia Curry DO Work Phone: Start: 05-16-2021 Urine test visual color cmprsn meths Patricia Curry [employer] Work Phone: Start: 05-02-2021 Assay of nicotine Sim Curry [employer] Work Phone: Start: 05-02-2021 Basic metabolic pane l calcium total Patricia Curry DO Work Phone: Start: 05-02-2021 Radiologic exam ches t 2 views Patricia Curry DO Work Phone: Start: 05-02-2021 Ecg routine ecg w/le ast 12 lds i&r only Patricia Curry [employer] Work Phone: Start: 06-14-2020 Microscopic observat ion [Identifier] in Cervix by Cyto stain Tatiana Yap MD Work Phone: Plan of Treatment Date Care Activity Detail Author Start: 02-08-2024 Adult BMI Screening Adult BMI Screen ing [facility] [employer] [place] [facility] Start: 02-08-2024 Tobacco Screening Tobacco Screening [facility] [employer] [facility] Start: 01-04-2024 Adult BMI Screening Adult BMI Screen ing [facility] Start: 01-04-2024 Tobacco Screening Tobacco Screening [facility] Start: 08-11-2023 DTaP,Tdap and Td Vaccines (7 - Td or Tdap) DTaP,Tdap and Td Vaccines (7 - Td or Tdap) [facility] Start: 08-11-2023 DTaP/Tdap/Td vaccine (7 - Td or Tdap) DTaP/Tdap/Td vaccine (7 - Td or Tdap) [facility] Start: 06-15-2023 Screening for malign ant neoplasm of cervix Pap Smear [facility] Start: 03-05-2023 End: 03-05-2023 Patient encounter procedure 03/05/2023 11:30 AM EST Office Visit Maternal- Medicine at [facility] [address] [place] [phone] Bentley Sanchez MD [address], [address] [place] [address] Maternal- Medicine at [facility] Start: 03-05-2023 End: 03-05-2023 Patient encounter procedure 03/05/2023 9:30 AM EST Appointment [facility] - [facility] [address] [place] [phone] [facility] Start: 02-07-2023 End: 02-07-2023 Patient encounter procedure [facility] [place] Start: 10-11-2022 Influenza vaccination Influenza Vacc ine [facility] Start: 09-19-2022 Adult BMI Follow Up Plan Adult BMI Follow Up Plan [facility] Start: 02-08-2022 Bacteria identified in Urine by Culture Urine Culture [facility] Start: 01-08-2022 Hemoglobin A1c measurement A1C test (Diabetic or Prediabetic) [facility] Start: 10-11-2021 Influenza vaccination Flu vacc ine (Season Ended) [facility] Start: 07-14-2021 Hemoglobin A1c measurement A1C test (Diabetic or Prediabetic) [facility] Work Phone: Start: 06-18-2021 End: 06-18-2021 Patient encounter procedure 06/18/2021 Office Visit BariatricDeann Roca, ANALYSIS DIRECTOR - PIPELINE OPERATOR [address] [place] [address] [facility] [place] Start: 05-24-2021 End: 05-24-2021 Patient encounter procedure 05/24/2021 Office Visit Patricia Islas DO [address] [place] [address] [facility] Invasive [facility]ariatric [facility] Start: 05-16-2021 End: 05-16-2021 Admission to same day surgery center 05/16/2021 Surgery IP Unit Patricia Curry DO [address] [place] [address] XI ROBOTIC LAPAROSCOPIC GASTRECTOMY SLEEVE , LIVER BIOPSY, EGD- GI SCHEDULED [facility] Comment on above: XI ROBOTIC LAPAROSCO PIC GASTRECTOMY SLEEVE , LIVER BIOPSY, EGD- GI SCHEDULED Start: 05-16-2021 End: 05-16-2021 Laps gstrc rstrictiv px longitudinal gastrectomy GASTRECTOMY SLEEVE LAPAROSCOPIC ROBOTIC MORBID OBESITY, OBSTRUCTIVE SLEEP APNEA, GERD 05/16/2021 7:10 AM EDT [facility] Start: 05-16-2021 Subsequent hospital visit by physician 05/16/2021 Hospital Encounter IP Unit Patricia Curry DO [address] [place] [address] [facility] Start: 05-13-2021 End: 05-13-2021 Patient encounter procedure 05/13/2021 Appointment Pre-Admission Testing [facility] PRE ADMIT Start: 05-10-2021 End: 05-10-2021 Patient encounter procedure 05/10/2021 Office Visit Patricia Islas DO [address] [place] [id number] [facility] Start: 11-22-2020 End: 11-22-2020 Nursing evaluation of patient and report 11/22/2020 Nurse Only Bariatrics [facility] Start: 11-06-2020 End: 11-06-2020 Patient encounter procedure [facility] Start: 11-03-2020 End: 11-03-2020 Patient encounter procedure 11/03/2020 Office Visit Bariatrics Deann Navarro, ANALYSIS DIRECTOR - PIPELINE OPERATOR [address] [facility] [address] [place] [phone] [facility] [place] Start: 10-11-2020 Influenza vaccination Flu vaccine (# 1) [facility] Start: 09-28-2020 End: 09-28-2020 Patient encounter procedure 09/28/2020 Office Visit Bariatrics Deann Navarro, ANALYSIS DIRECTOR - PIPELINE OPERATOR [address] [facility] [address] [place] [phone] [facility] Start: 09-01-2015 Screening for malign ant neoplasm of cervix [facility] Start: 2009 HIV screening HIV screen [facility] Start: 2006 COVID-19 Vaccine (1) COVID-19 Vaccin e (1) [facility] Work Phone: Start: 2006 Depression Screen Depression Screen [facility] Start: 2006 Depression Screening Depression Scre [facility] Start: 2005 HPV vaccine (1 - 2-d ose series) HPV vaccine (1 - 2-dose series) [facility] Start: 2000 Pneumococcal 0-64 ye ars Vaccine (1 of 2 - PPSV23) Pneumococcal 0-64 years Vaccine (1 of 2 - PPSV23) [facility] Work Phone: Start: 09-01-1999 COVID-19 Vaccine (1) COVID-19 Vaccin e (1) [facility] Start: 09-01-1995 Varicella vaccine (1 of 2 - 2-dose childhood series) Varicella vaccine (1 of 2 - 2-dose childhood series) [employer] Start: 1994 Hepatitis C screening Hepatitis C [facility] [employer] End: 09-06-2020 Baseline Diagnostic Sleep Study Baseline Diagnostic Sleep Study Sleep Center Routine LYNN (obstructive sleep apnea) 1 Occurrences starting 09/06/2020 until 09/06/2020 [employer] Phone: Comment on above: 1 Occurrences starti ng 09/06/2020 until 09/06/2020 End: 02-08-2024 Calcium [Mass/volume] in Serum or Plasma Calcium Lab Routine 16 weeks gestation of H/O gastric sleeve 1 Occurrences starting 02/07/2023 until 02/08/2024 [facility] Comment on above: 1 Occurrences starti ng 02/07/2023 until 02/08/2024 End: 02-08-2024 CBC panel - Blood by Automated count CBC without diff Lab Routine Hypertension affecting in second trimester 16 weeks gestation of Dichorionic diamniotic twin in second trimester 1 Occurrences starting 02/07/2023 until 02/08/2024 [employer] Work Phone: Comment on above: 1 Occurrences starti ng 02/07/2023 until 02/08/2024 End: 02-08-2024 Comprehensive metabolic 2000 panel - Serum or Plasma Comprehensive metabolic panel Lab Routine Hypertension affecting in second trimester 16 weeks gestation of Dichorionic diamniotic twin in second trimester 1 Occurrences starting 02/07/2023 until 02/08/2024 [facility] Comment on above: 1 Occurrences starti ng 02/07/2023 until 02/08/2024 Continuous pulse oximetry Pulse oximetry, continuous Respiratory Care Routine Every 4hr until discontinued starting 05/16/2021 [employer] Phone: Comment on above: Every 4hr until disc ontinued starting 05/16/2021 End: 02-08-2024 Cyanocobalamin vitamin b-12 Vitamin B12 Lab Routine 16 weeks gestation of H/O gastric sleeve 1 Occurrences starting 02/07/2023 until 02/08/2024 [facility] Comment on above: 1 Occurrences starti ng 02/07/2023 until 02/08/2024 End: 02-08-2024 ECG 12 lead ECG 12 lead ECG Routine Hypertension affecting in second trimester 16 weeks gestation of Dichorionic diamniotic twin in second trimester 1 Occurrences starting 02/07/2023 until 02/08/2024 [facility] Comment on above: 1 Occurrences starti ng 02/07/2023 until 02/08/2024 End: 02-08-2024 Folate Folate Lab Routine 16 weeks gestation of H/O gastric sleeve 1 Occurrences starting 02/07/2023 until 02/08/2024 [facility] Comment on above: 1 Occurrences starti ng 02/07/2023 until 02/08/2024 End: 02-08-2024 Iron and TIBC Iron and TIBC Lab Routine 16 weeks gestation of H/O gastric sleeve 1 Occurrences starting 02/07/2023 until 02/08/2024 [facility] Comment on above: 1 Occurrences starti ng 02/07/2023 until 02/08/2024 End: 02-08-2024 LDH LDH Lab Routine Hypertension affecting in second trimester 16 weeks gestation of Dichorionic diamniotic twin in second trimester 1 Occurrences starting 02/07/2023 until 02/08/2024 [facility] Comment on above: 1 Occurrences starti ng 02/07/2023 until 02/08/2024 End: 02-08-2024 Natriuretic peptide B [Mass/volume] in Blood B-type natriuretic peptide Lab Routine Hypertension affecting in second trimester 16 weeks gestation of Dichorionic diamniotic twin in second trimester 1 Occurrences starting 02/07/2023 until 02/08/2024 [facility] Comment on above: 1 Occurrences starti ng 02/07/2023 until 02/08/2024 Oxygen therapy [[facility] Data Set] Initiate Oxygen Therapy Protocol Respiratory Care Routine As Needed until discontinued starting 05/16/2021 [employer] Phone: Comment on above: As Needed until disc ontinued starting 05/16/2021 End: 02-08-2024 Protein creat ratio Protein creat ratio Lab Routine Hypertension affecting in second trimester 16 weeks gestation of Dichorionic diamniotic twin in second trimester 1 Occurrences starting 02/07/2023 until 02/08/2024 [facility] Comment on above: 1 Occurrences starti ng 02/07/2023 until 02/08/2024 End: 02-08-2024 Protein, urine, 24 hour Protein, urine, 24 hour Lab Routine Hypertension affecting in second trimester 16 weeks gestation of Dichorionic diamniotic twin in second trimester 1 Occurrences starting 02/07/2023 until 02/08/2024 [facility] Comment on above: 1 Occurrences starti ng 02/07/2023 until 02/08/2024 Spirometry panel Incentive isiah metry Respiratory Care Routine Every 2hr while awake until discontinued starting 05/16/2021 [employer] Phone: Comment on above: Every 2hr while awak e until discontinued starting 05/16/2021 Surgical Pathology Surgical Path ology Lab Routine Release Upon Ordering for 1 Occurrences starting 05/16/2021 [employer] Phone: Comment on above: Release Upon Orderin g for 1 Occurrences starting 05/16/2021 End: 02-08-2024 Thiamin Vitamin B1, whole blood Thiamin Vitamin B1, whole blood Lab Routine 16 weeks gestation of H/O gastric sleeve 1 Occurrences starting 02/07/2023 until 02/08/2024 [facility] Comment on above: 1 Occurrences starti ng 02/07/2023 until 02/08/2024 End: 02-08-2024 Urate [Mass/volume] in Serum or Plasma Uric acid Lab Routine Hypertension affecting in second trimester 16 weeks gestation of Dichorionic diamniotic twin in second trimester 1 Occurrences starting 02/07/2023 until 02/08/2024 [facility] Comment on above: 1 Occurrences starti ng 02/07/2023 until 02/08/2024 End: 02-08-2024 Vitamin D 25 hydroxy Vitamin D 25 hydroxy Lab Routine 16 weeks gestation of H/O gastric sleeve 1 Occurrences starting 02/07/2023 until 02/08/2024 [facility] Comment on above: 1 Occurrences starti ng 02/07/2023 until 02/08/2024 Immunizations Immunization Date Immunization Notes Care Provider Jerry luther 11-12-2016 tuberculin skin test ; purified protein derivative solution, intradermal Tatiana Yap MD Work Phone: [facility] 08-10-2013 tetanus toxoid, redu yemi diphtheria toxoid, and acellular pertussis vaccine, adsorbed Tatiana Yap MD Work Phone: [facility] 10-03-1999 diphtheria, tetanus toxoids and acellular pertussis vaccine Tatiana Yap MD Work Phone: [facility] 10-03-1999 hepatitis B vaccine, pediatric or pediatric/adolescent dosage Tatiana Yap MD Work Phone: [facility] 10-03-1999 measles, mumps and rubella virus vaccine Tatiana Yap MD Work Phone: [facility] 10-03-1999 poliovirus vaccine, inactivated Tatiana Yap MD Work Phone: [facility] 01-14-1996 diphtheria, tetanus toxoids and acellular pertussis vaccine Tatiana Yap MD Work Phone: [facility] 01-14-1996 haemophilus influenz ae type b vaccine, conjugate unspecified formulation Tatiana Yap MD Work Phone: [facility] 01-14-1996 measles, mumps and rubella virus vaccine Tatiana Yap MD Work Phone: [facility] 05-21-1995 diphtheria, tetanus toxoids and acellular pertussis vaccine Tatiana Yap MD Work Phone: [facility] 05-21-1995 haemophilus influenz ae type b vaccine, conjugate unspecified formulation Tatiana Yap MD Work Phone: [facility] 05-21-1995 poliovirus vaccine, inactivated Tatiana Yap MD Work Phone: [facility] 02-21-1995 diphtheria, tetanus toxoids and acellular pertussis vaccine Tatiana Yap MD Work Phone: [facility] 02-21-1995 haemophilus influenz ae type b vaccine, conjugate unspecified formulation Tatiana Yap MD Work Phone: [facility] 02-21-1995 hepatitis B vaccine, pediatric or pediatric/adolescent dosage Tatiana Yap MD Work Phone: [facility] 02-21-1995 poliovirus vaccine, inactivated Tatiana Yap MD Work Phone: [facility] 1994 diphtheria, tetanus toxoids and acellular pertussis vaccine Tatiana Yap MD Work Phone: [facility] 1994 haemophilus influenz ae type b vaccine, conjugate unspecified formulation Tatiana Yap MD Work Phone: [facility] 1994 hepatitis B vaccine, pediatric or pediatric/adolescent dosage Tatiana Yap MD Work Phone: [facility] 1994 poliovirus vaccine, inactivated Tatiana Yap MD Work Phone: [facility] 1994 hepatitis B vaccine, pediatric or pediatric/adolescent dosage Tatiana Yap MD Work Phone: [facility] Payers Date Payer Category Payer Medicaid [id number] 2022 Medicaid [employer] [id number] 2022-Present [address] [place] [address] [id number] 2022 Self-pay 2019 Unknown [id number]. [id number] 1994 Unknown [id number] 2.16.840.1.641131.3.579.2. 173 1994 Unknown [id number] 2.16.840.1.103879.3.579.2. 173 1994 Unknown [id number] 2.16.840.1.030382.3.579.2. 173 1994 Unknown [id number] 2.16.840.1.372006.3.579.2. 593 1994 Unknown [id number] 2.16.840.1.201976.3.579.2. 593 1994 Unknown [id number] 2.16.840.1.409016.3.579.2. 593 1994 Unknown [id number] 2.16.840.1.197487.3.579.2. 593 1994 Unknown [id number] 2.16.840.1.643439.3.579.2. 593 1994 Unknown [id number] 2.16.840.1.551910.3.579.2. 593 1994 Unknown [id number] 2.16.840.1.881277.3.579.2. 175 1994 Unknown [id number] 2.16.840.1.218002.3.579.2. 1259 1994 Unknown [id number] 2.16.840.1.391798.3.579.2. 1259 1994 Unknown [id number] 2.16.840.1.721792.3.579.2. 1259 1994 Unknown [id number] 2.16.840.1.754172.3.579.2. 1259 1994 Unknown [id number] 2.16.840.1.415339.3.579.2. 1259 1994 Unknown [id number] 2.16.840.1.366808.3.579.2. 1286 1994 Unknown [id number] 2.16.840.1.854142.3.579.2. 1286 1959 Private Health Insurance [id number] [id number]. [id number] Private Health Insurance [facility] [id number] Unknown [id number] [id number]. 531 Social History Date Type Detail Facility Start: 09-01-2020 End: 09-28-2020 Tobacco smoking status [facility] Current every day smoker [employer] Phone: Start: 03-20-2020 End: 09-01-2020 Cigarettes smoked current (pack per day) - Reported [facility] Start: 09-01-2020 End: 01-19-2021 Tobacco use and exposure Never used [employer] Phone: Start: 09-01-2020 End: 09-28-2020 Alcohol intake Current drinker of alcohol (finding) [employer] Phone: Start: 12-23-2019 Alcohol Comment weekly [employer] Phone: Start: 1994 Sex Assigned At Not on file M [employer] Phone: Start: 04-22-2021 End: 05-16-2021 Exposure to SARS-CoV-2 (event) Not sure [employer] Exposure to SARS-CoV -2 (event) Yes [employer] Start: 01-19-2021 End: 02-05-2023 Tobacco smoking status [facility] Ex-smoker [employer] End: 11-19-2020 History of tobacco use Current smoker [employer] Phone: Start: 05-02-2021 End: 02-07-2023 Alcohol intake Ex-drinker (finding) [employer] Phone: Start: 08-17-2018 End: 03-20-2020 [facility] Start: 1995 Sex Assigned At Female F [facility] End: 02-11-2020 [facility] of tobacco use [facility] History of tobacco use Tobacco U se Types Packs/Day Years Used Date Smoking Tobacco: Former Cigarettes Quit: 2020 Vaping/E-cigarettes Smokeless Tobacco: Former Quit: 11/06/2020 [facility] Start: 02-05-2023 Tobacco use and exposure Forme r smokeless tobacco user [facility] End: 11-06-2020 History of tobacco use User of smokeless tobacco [facility] Frequency of Communication with Friends and Family More than three times a week [facility] Start: 08-17-2018 Education 12 [facility] Start: 05-18-2022 Alcohol Comment social, every other weekend [facility] Start: 10-31-2022 [facility] Clinical Notes 12-04-2020 to 02-07-2023 Sangita Thomas RN - 02/07/2023 2:15 PM Madie Yap MD - 02/07/2023 2:15 PM EST Note Date & Type Note Facility 02-07-2023 History of Present illness Narrative Headache/epigastric pain/blurry vision/swelling? Occasional headaches Cramping/contractions? No Abnormal vaginal discharge? No Spotting/vaginal bleeding? No Loss of fluid like your water may have broken? No Cats in the home? No Do you change the litter box? No Flu vaccine? No Genetic testing done this here or other office? Yes Have you been seen here at [facility] in a previous ? No Recent ER visits or hospitalizations? No Bring blood sugar log or meter with you today? (Please bring them with you for every visit at [facility]) N/A Traveled outside the country in the past 6 month No Any concerns that you would like me to mention to the provider today? No REASON FOR CONSULTATION: Twins HISTORY OF PRESENT ILLNESS: Fina Velásquez is a pleasant 27 y.o. at 16w1d due on Estimated Date of Delivery: 07/24/23 . complicated by: Dichorionic Diamniotic twin CHTN History of RPL History of gastric sleeve 07/2021 With regards to chronic hypertension, patient was delivered at 36 weeks in her prior due to concern for chronic hypertension exacerbation versus preeclampsia. She was managed on labetalol during that . Review of chart shows multiple elevated blood pressures outside of as far back as 2017. Today, the patient is doing well. She denies headaches, vision changes, nausea, vomiting, right upper quadrant or epigastric pain, SOB or chest pain. She denies contractions, vaginal bleeding, leaking of fluid. She reports good movement. Aneuploidy screening: Low risk cell free DNA, XY x2 PAST OBSTETRICAL HISTORY: OB History Para Term AB Living 5 1 0 1 3 1 SAB IAB Ectopic Multiple Live Births 3 0 0 0 1 # Outcome Date GA Lbr Andrew/2nd Weight Sex Delivery Anes PTL Lv 5 Current 4 SAB 04/2020 3 SAB 12/2019 2 11/28/17 [id number] F [id number] Y GLORIA 1 SAB MEDICAL HISTORY: Past Medical History: Diagnosis Date Anemia Anxiety Astigmatism Cholelithiasis COVID-19 Depression GERD (gastroesophageal reflux disease) Gestational hypertension H/O gastric sleeve HSV (herpes simplex virus) infection Obesity LYNN (obstructive sleep apnea) SURGICAL HISTORY: Past Surgical History: Procedure Laterality Date CARDIAC CATHETERIZATION SECTION DILATION AND CURETTAGE OF UTERUS LAPAROSCOPIC GASTRIC BANDING 05/2021 laparoscopic gastric sleeve TONSILLECTOMY WISDOM TOOTH EXTRACTION ALLERGIES: Allergies Allergen Reactions Ibuprofen Has gastric sleeve procedure CURRENT MEDICATIONS: Current Outpatient Medications: hydrOXYzine (ATARAX) 25 mg tablet, Take 1 tablet (25 mg total) by mouth 3 (three) times a day as needed., Disp: , Rfl: pantoprazole (PROTONIX) 40 mg EC tablet, Take 1 tablet (40 mg total) by mouth in the morning., Disp: , Rfl: pyridoxine, vitamin B6, (B-6) 25 mg tablet, Take 1 tablet (25 mg total) by mouth 3 (three) times a day as needed (T.i.d. p.r.n. for nausea and vomiting)., Disp: 60 tablet, Rfl: 0 acidophilus-pectin, citrus 25 million cell -100 mg tablet, Take by mouth 3 (three) times a day with meals., Disp: , Rfl: aspirin 81 mg chewable tablet, Chew 1 tablet (81 mg total) and swallow in the morning., Disp: , Rfl: busPIRone (BUSPAR) 30 mg tablet, 1 tablet Orally daily (Patient not taking: Reported on 02/07/2023), Disp: , Rfl: calcium carbonate/vitamin D3 (CALCIUM WITH VITAMIN D ORAL), Take by mouth. (Patient not taking: Reported on 02/07/2023), Disp: , Rfl: cyanocobalamin 500 MCG tablet, Take 1 tablet (500 mcg total) by mouth in the morning. (Patient not taking: Reported on 02/07/2023), Disp: , Rfl: dextromethorphan-guaiFENesin (MUCINEX DM) 30-600 mg tablet extended release 12 hr, Take 1 tablet by mouth every 12 (twelve) hours as needed (cough and congestion). (Patient not taking: Reported on 02/07/2023), Disp: 28 each, Rfl: 0 diphenhydrAMINE (BENADRYL) 25 mg capsule, Take 1 capsule (25 mg total) by mouth nightly as needed for sleep. (Patient not taking: Reported on 02/07/2023), Disp: , Rfl: doxylamine (UNISOM) 25 mg tablet, Take 1 tablet (25 mg total) by mouth nightly as needed for sleep. (Patient not taking: Reported on 02/07/2023), Disp: 30 tablet, Rfl: 0 famotidine (PEPCID) 20 mg tablet, Take 1 tablet (20 mg total) by mouth in the morning and 1 tablet (20 mg total) before bedtime. (Patient not taking: Reported on 02/07/2023), Disp: 20 tablet, Rfl: 0 ferrous sulfate 325 (65 FE) mg tablet, Take 1 tablet (325 mg total) by mouth daily with breakfast., Disp: , Rfl: fluticasone propionate (FLONASE) 50 mcg/actuation nasal spray, Administer 1 spray into each nostril in the morning. (Patient not taking: Reported on 02/07/2023), Disp: 16 g, Rfl: 0 MULTIVITAMIN ORAL, Take 1 tablet by mouth. (Patient not taking: Reported on 02/07/2023), Disp: , Rfl: ondansetron ODT (ZOFRAN ODT) 4 mg disintegrating tablet, Dissolve 1 tablet (4 mg total) on tongue every 8 (eight) hours as needed for nausea for up to 10 doses. (Patient not taking: Reported on 02/07/2023), Disp: 10 tablet, Rfl: 0 promethazine (PHENERGAN) 25 mg tablet, Take 1 tablet (25 mg total) by mouth every 6 (six) hours as needed for nausea or vomiting. (Patient not taking: Reported on 02/07/2023), Disp: , Rfl: zinc 50 mg tablet tablet, Take 1 tablet (50 mg total) by mouth in the morning. (Patient not taking: Reported on 02/07/2023), Disp: , Rfl: REVIEW OF SYSTEMS: Head and Neck: Negative for any dizziness and headaches. Cardiovascular and Respiratory System: Denies any chest pain, shortness of breath, and coughing. Abdominal and System: Denies any abdominal pain, nausea, vomiting, vaginal bleeding, and vaginal discharge FAMILY/GENETIC HISTORY: No family history of VTE, cardiac defects and mental retardation . SOCIAL HISTORY:Patient denies tobacco use, alcohol use, or drug use. RECENT HOSPITALIZATION: REVIEW OF TESTS AND ULTRASOUND REPORTS: Referral records and [facility] chart were reviewed Pertinent Ultrasound findings are see formal ultrasound report. Abstract on 02/05/2023 Component Date Value Ref Range Status Syphilis 12/20/2022 NON-REACTIVE Final Rubella immune IgG 12/20/2022 1.96 Final Antibody Screen 12/20/2022 NEGATIVE Final HIV 1&2 AB/AG 12/20/2022 NON-REACTIVE Final Hepatitis B Surface Antigen 12/20/2022 NEGATIVE Final Admission on 01/03/2023, Discharged on 01/03/2023 Component Date Value Ref Range Status White Blood Cells 01/03/2023 7.2 4.0 - 11.0 X10E9/L Final RBC count 01/03/2023 4.01 3.80 - 5.20 X10E12/L Final Hemoglobin 01/03/2023 11.8 11.7 - 15.5 g/dL Final Hematocrit 01/03/2023 33.7 (L) 35 - 47 % Final MCV 01/03/2023 84 80 - 100 fL Final MCH 01/03/2023 29.5 27 - 34 pg Final MCHC 01/03/2023 35.1 32 - 36 g/dL Final RDW 01/03/2023 14.2 11.5 - 15.0 % Final Platelets 01/03/2023 233 150 - 450 X10E9/L Final MPV 01/03/2023 7.9 7 - 12 fL Final % neutrophils 01/03/2023 60.6 % Final % lymphocytes 01/03/2023 27.7 % Final % monocytes 01/03/2023 9.8 % Final % eosinophils 01/03/2023 1.1 % Final % Basophils 01/03/2023 0.8 % Final Neutrophils Absolute (A) 01/03/2023 4.3 1.5 - 6.6 X10E9/L Final Lymphocytes Absolute 01/03/2023 2.0 1.0 - 3.5 X10E9/L Final Monocytes Absolute 01/03/2023 0.7 0 - 0.9 X10E9/L Final Eosinophils Absolute 01/03/2023 0.1 0.0 - 0.4 X10E9/L Final Basophils Absolute 01/03/2023 0.1 0.0 - 0.2 X10E9/L Final Hcg-beta, serum 01/03/2023 137,316 mIU/mL Final Comment: NEW REFERENCE RANGE WEEKS (SINCE LMP) MIU/mL 3 WEEKS 5 - 50 4 WEEKS 5 - 426 5 WEEKS 18 - 7,340 6 WEEKS 1,080 - 56,500 7-8 WEEKS 7,650 - 229,000 9-12 WEEKS 25,700 - 288,000 13-16 WEEKS 13,300 - 254,000 17-24 WEEKS 4,060 - 165,400 25-40 WEEKS 3,640 - 117,000 MALES AND NON- FEMALES - <5 MIU/mL This test has been FDA approved for use in only. Elevated levels are not necessarily diagnostic for trophoblastic or nontrophoblastic neoplasms. Sodium 01/03/2023 135 134 - 146 mmol/L Final Potassium, Bld 01/03/2023 3.0 (L) 3.5 - 5.0 mmol/L Final Chloride 01/03/2023 106 98 - 109 mmol/L Final CO2 01/03/2023 25 22 - 32 mmol/L Final Anion gap 01/03/2023 4 (L) 5 - 15 mmol/L Final BUN 01/03/2023 7 5 - 23 mg/dL Final Creatinine 01/03/2023 0.48 0.40 - 1.00 mg/dL Final METHOD TRACEABLE TO IDMS STANDARD Glucose 01/03/2023 71 65 - 99 mg/dL Final Calcium 01/03/2023 8.3 (L) 8.5 - 10.5 mg/dL Final Total Protein 01/03/2023 6.2 6.0 - 8.0 g/dL Final Albumin 01/03/2023 3.1 (L) 3.2 - 5.3 g/dL Final Alkaline Phosphatase 01/03/2023 53 39 - 130 U/L Final AST 01/03/2023 28 0 - 41 U/L Final ALT 01/03/2023 42 (H) 0 - 31 U/L Final Total bilirubin 01/03/2023 0.3 0.3 - 1.2 mg/dL Final eGFR (CKD-EPI)non-race dependent 01/03/2023 >90 >59 ml/min/1.73sq.m Final Comment: Reported eGFR is based on the CKD-EPI 2020 equation that does not use a race coefficient. Lactate w/ Reflex 01/03/2023 1.0 0.4 - 2.0 mmol/L Final Comment: Result did not trigger repeat Lactate, re-order if needed. Lipase 01/03/2023 33 17 - 40 U/L Final Troponin I 01/03/2023 0.01 0.00 - 0.04 ng/mL Final Magnesium 01/03/2023 1.8 1.8 - 2.6 mg/dL Final Specific gravity JESSICA 01/03/2023 1.020 1.003 - 1.035 Final Leukocyte esterase JESSICA 01/03/2023 Negative Negative^Negative Final Nitrite JESSICA 01/03/2023 Negative Negative^Negative Final Ph 01/03/2023 7.0 5.0 - 8.5 Final Protein JESSICA 01/03/2023 Negative Negative^Negative mg/dL Final Urine glucose JESSICA 01/03/2023 Negative Negative^Negative mg/dL Final Ketones JESSICA 01/03/2023 Negative Negative^Negative mg/dL Final Urobilinogen JESSICA 01/03/2023 0.2 <1.1 eu/dL Final Bilirubin JESSICA 01/03/2023 Negative Negative^Negative Final Hemoglobin JESSICA 01/03/2023 Negative Negative^Negative Final Nursing urine 01/03/2023 Positive (A) Negative^Negative Final FLU A PCR 01/03/2023 Negative Negative^Negative Final FLU B PCR 01/03/2023 Negative Negative^Negative Final RSV by PCR 01/03/2023 Negative Negative^Negative Final SARS CoV 2 BY PCR 01/03/2023 Not Detected Not Detected^Not Detected Final Comment: NOTE The Xpert Xpress SARS-CoV-2/Flu/RSV Plus test is a rapid, multiplexed real-time RT-PCR test intended for the simultaneous qualitative detection and differentiation of SARS-CoV-2, influenza A, influenza B and respiratory syncytial virus (RSV) viral RNA from individuals suspected of respiratory viral infection consistent with COVID-19 by their healthcare provider. This test has not been validated in asymptomatic patients. The Xpert Xpress SARS-CoV-2 test is intended for use by qualified and trained operators who are performing tests using either Pumant or Intelligent Fingerprinting systems and is limited to laboratories that meet the CLIA requirements to perform high and moderate complexity tests. The Xpert Xpress SARS-CoV-2/Flu/RSV Plus is only for use under the Food and Drug Administration's Emergency Use Authorization. Results are for the simultaneous detection and differentiation of SARS-CoV-2, influenza A, influenza B and RSV nucleic acids in clinical specimens. SARS-CoV-2, influenza A, influenza B and RSV RNA identified by this test are generally detectable in upper respiratory samples during the acute phase of infection. Positive results are indicative of the presence of the identified virus, but do not rule out bacterial infection or co-infection with other pathogens not detected by this test. Clinical correlation with patient history and other diagnostic information is necessary to determine patient infection status. The agent detected may not be the definite cause of disease. Negative results do not preclude SARS-CoV-2, influenza A, influenza B and RSV infection and should not be used as the sole basis for treatment or other patient management decisions. Negative results must be combined with clinical observations, patient history and epidemiological information. An Invalid result may occur with specimen-associated inhibition unable to be resolved with specimen repeat. Fact Sheet for Healthcare Providers: https://www.f da.gov/media/689542/download Fact Sheet for Patients: https://www.fda.gov/media/718698/d ownload HABITS: Patient activity no restrictions, diet no restrictions PHYSICAL EXAMINATION: BP 126/83 Pulse 76 Ht 170.2 cm (5' 7 ) Wt 98.9 kg (218 lb) LMP 10/17/2022 BMI 34.14 kg/m Well-appearing in no distress. Respirations not labored, speaking comfortably in full sentences Gravid abdomen OVERALL ASSESSMENT -Fina Cosmo Velásquez is a pleasant 27 y.o. at 16w1d - Dichorionic Diamniotic twin -CHTN -History of gastric sleeve 07/2021 COUNSELING Twin Gestation We first discussed twin gestations in general. Multiple gestations are associated with an increased risk of either due to a spontaneous process ( labor or PPROM) or an indicated maternal or complication (ie pre-eclampsia or growth disturbances). On average, women with twins will deliver at 35-36 weeks, a gestational age that is c/w a but with an anticipation of excellent penitentiary outcomes. In regards to the spontaneous processes, no intervention has proven successful at preventing labor or PPROM, including bedrest, tocolytics, pessary, progesterone or cerclage placement. Patient will have cervical length at the time of her scheduled anatomy ultrasound at 20 weeks' gestation. Serial CL measurements are not indicated, but the patient was counseled about the importance of notifying her physician if she experiences symptoms of labor. In regards to the indicated births, routine care will identify preeclampsia, hence the reason for more frequent visits in the third trimester, and I reviewed the symptoms of this disease that should prompt more urgent evaluation. Twin gestations were also complicated by increased risk of growth abnormalities, thus serial growth ultrasounds are recommended every 4-6 weeks starting at 24weeks' gestation. In addition to these risks of delivery, the patient is at an increased risk for GDM, and I informed her that she will likely be screened for this in the near future. The patient was also informed that delivery is recommended at 38 weeks of gestation, and she was counseled that she is at an increased risk for requiring section. Chronic Hypertension We discussed the risks of chronic hypertension including growth restriction, increased risk of preeclampsia, delivery, and/ or placental abruption. With mild hypertension, no underlying cardiac disease, and normal renal function, most women do well in . We recommend baseline preeclampsia labs, 24 hour urine protein, EKG and BNP (EKG not yet scheduled). I explained that acceptable blood pressures in pregnancies with chronic hypertension < 140 systolic and <90 diastolic. Antihypertensive medication treatment with aim to maintain BPs <140/90 have demonstrated improvements in outcomes including development of severe preeclampsia, indicated delivery < 35 weeks, abruption, or , without increased risk of growth restriction or other serious maternal or adverse outcomes. Based on this data, ACOG recommends utilizing 140/90 as the threshold for initiation or titration of medical therapy for chronic hypertension in , rather than the previously recommended threshold of 160/110. Reference: PMID: [id number], 2021. Blood pressures do increase as progresses and it is possible that she may require an increase in her medication dosing. However, any significant exacerbation in baseline BPs in after 20 weeks in a patient with CHTN should be worked up closely for possible superimposed preeclampsia. I recommended serial growth ultrasounds every 4 weeks after 20 weeks to ensure appropriate growth. In addition, testing recommended should be initiated at 32 weeks with once weekly NST and weekly AZAEL assesent, increase to twice weekly NSTs with weekly AZAEL at 36 weeks gestational age. With uncomplicated hypertension, reassuring testing, and no evidence of preeclampsia it is reasonable to deliver at 39 weeks. If complications arise, it may be necessary to deliver earlier. I also recommend baby aspirin once daily to reduce the risk of preeclampsia. There have been several dosing strategies for low dose aspirin for preeclampsia prevention, 81 mg (endorsed by ACOG) and 150 mg daily. Our practice continues to endorse the 81 mg dosing regimen for preeclampsia prevention as is recommended by the [place] [employer] Committee Opinion No. 743. Higher doses (150mg) have been studied, but utilized a screening strategy that is not widely performed in the [place] (serum analytes and uterine artery Doppler), limiting the generalizability of the findings. We discussed the safety profile of nifedipine when used to treat chronic hypertension in , and patient information handout provided to her today: https://mothertobaby.org/fact-shee ts/nifedipine/pdf/ We discussed the safety profile of beta blockers when used to treat chronic hypertension in : https://mothertobaby.org/fact-shee ts/labetalol/pdf/ Bariatric Surgery S/p Bariatric surgery It is advisable to delay for 12 to 24 month after bariatric surgery to accommodate the rapid weight loss and allow attainment of goal weight. Sleeve gastrectomy resect the greater curvature of the stomach including the fundus. It promote rapid gastric emptying, accelerated transient of nutrients into duodenum and proximal tested and fairly changes the microbiome. Complications associated with following bariatric surgery include but not limited to bowel obstruction, Band slippage, gastric ulcers and staple line strictures. Micronutrient supplementation may include Vitamins B1, B6, B12, D, and K, zinc, biotin, iron and calcium citrate. We discussed that given the theoretical risk of dumping syndrome with a 50 g glucose challenge test alternative testing for gestational diabetes should be considered in those pregnancies who cannot tolerate sugared soft drinks. Dumping syndrome typically does not occur in women who have undergone restrictive-type bariatric procedures such as gastric banding. These women can undergo standard testing for GDM. Additional recommendations for woman status post bariatric surgery include a nutrition consult (if not already placed), surveillance for adequate maternal weight gain during , serial growth ultrasounds. Due to micronutrient deficiencies, initial evaluation for micronutrient deficiencies includes laboratory workup of CBC, thiamine, vitamin B12, ferritin, iron, folate, vitamin-D and calcium. In each trimester follow-up with routine routine laboratory workup CBC, ferritin, B12, calcium and vitamin-D is recommended. Vitamin B1 deficiency is associated with neurological deficits, that are prominent if left untreated. The most common manifestation vitamin B1 deficiency in post bariatric bypass surgical patients is Wernicke encephalopathy (encephalopathy, ocular motor dysfunction, and gait ataxia). Patients are recommended 50 mg of thiamine once to twice daily following bariatric surgery. Vitamin B12 deficiency results in pernicious anemia. Chronic vitamin B12 deficiency can also result in peripheral neuropathy, which may not be reversible. Typically the body has 12-18 months storage of vitamin B12, thus vitamin B12 deficiencies commonly identified 2 years following bariatric surgery. Baby aspirin for the attempted prevention of preeclampsia is recommended. NSAIDs are known to increase the risk of developing marginal as ulcer following laparoscopic Joe-en-Y gastric bypass surgery. However a retrospective cohort study evaluating the risk of low-dose daily aspirin at 81 mg did not show an increased risk of marginal ulceration (8.3% aspirin vs 10.3% no aspirin, p=0.45) (PMBID: [id number]). Given well-established benefits baby aspirin for the prevention of preeclampsia, I recommend initiating baby aspirin even in the setting of history of Joe-en-Y surgery. Micronutrient Dosing Recommendations: Calcium: recommend 1000-1200mg daily; if deficient, recommend 1800-06257 mg PO daily in divided doses Vitamin D: recommend 800IU during and ; if deficient, recommend 3000-6000IU of D3 daily Vitamin B1: recommend 50mg daily; if deficient, recommend 100-250mg monthly IM injects or 100mg TID PO until symptoms resolve Vitamin B12: recommend 35-100mcg daily PO; if deficient, recommend 1000mcg daily PO until level normalize Folate: recommend 800mcg-1000mcg daily PO (do not exceed 1mg daily); if deficient, recommend 1000mcg daily PO until levels normalize Iron: recommend 45-60mg of elemental iron daily from all sources; if deficient, recommend 150-300mg PO BID to TID OR IV iron SUMMARY/RECOMMENDATION: recommend obtaining baseline EKG and BNP in the setting of chronic hypertension recommend baseline 24 hour urine protein in addition to CBC CMP uric acid and lactate dehydrogenase continue daily aspirin for attempted prevention of preeclampsia Evaluation for micronutrient deficiencies at first visit: CBC, thiamine (vitamin B1), vitamin B12, folate, ferritin ironvitamin D and calcium Ordered today Continue evaluation for micronutrient deficiencies every trimester: CBC, ferritin, B12, calcium and Vitamin D See above for specific recommendations regarding maintenance and repletion dosing of micronutrients Alternative testing for gestational diabetes is not required as patient can tolerate regular soda drink without complications serial growth ultrasounds every 4 weeks starting at 24 weeks testing recommendation; weekly NSTs with AZAEL starting at 32 weeks, increasing to twice weekly NSTs with AZAEL starting at 36 weeks reviewed monitoring for movements reviewed preeclampsia precautions continue healthy diet and exercise uptitrated antihypertensives, either with labetalol or nifedipine, to maintain blood pressure goal of less than 140/90 If she develops severe range BPs in this , I recommend she be admitted to the hospital for evaluation of suspected superimposed preeclampsia. delivery planning at 38 weeks or sooner if clinically indicated Follow up in [facility] in 4 weeks for anatomy and clinic follow-up DISPOSITION: At this point the patient is in complete care of her directory assistance operator. Patient does have ultrasound and office visit scheduled with us. Thank you for allowing me to participate in the care of Fian Bosch Junaidwhitney. If there any questions please do not hesitate to contact us. Total time spent was 43 minutes: Preparing to see the patient (e.g., review of tests) Obtaining and/or reviewing separately obtained history Performing a medically appropriate examination and/or evaluation Counseling and educating the patient/family/caregiver Ordering medications, tests, or procedures Referring and communicating with other health neonatal critical care nurse (not separately reported) Documenting clinical information in the electronic or other health record Tatiana Yap MD Maternal- Medicine [facility] [address] [facility] [address] [place] [address] [facility], the CDC, and other organizations representing maternal and public health professionals recommend that , , and lactating people and those considering receive the COVID-19 vaccination. Vaccination is the best method to reduce maternal and complications of SARS-CoV-2 infection. This document was created with [employer]bay technology. Though I make every effort to review the dictation as it is transcribed, on occasion the spoken word can be misinterpreted by the technology leading to inappropriate words, phrases, or sentences. This note is addressed to the requesting provider as a consultation for clinical guidance. Specific medical abbreviations are occasionally used and those are generally approved by the [place]?Board of?Obstetrics and?Gynecology?as well as?Maddison hodgson abbreviations. The above plan of care was based solely on the diagnoses for which a consultation was requested. ?More frequent testing may be indicated based on her other medical/obstetrical conditions. The management of other or medical conditions is beyond the scope of requested consultation and will continue to be followed by the primary directory assistance operator or primary care provider. Note to patient: The 21st Century Cures Act makes medical notes like these available to patients in the interest of transparency. However, be advised this is a medical document. It is intended as peer to peer communication. It is written in medical language and may contain abbreviations or verbiage that are unfamiliar. It may appear blunt or direct. Medical documents are intended to carry relevant information, facts as evident, and the clinical opinion of the practitioner. documented in this encounter [facility] 10-12-2022 Evaluation note Encounter Date Diagnosis Assessment [...] take Sudafed and/or Mucinex for congestion. Take pcyl-iky-qymas er Robitussin or Delsym for cough. Follow-up with your family physician if no improvement in 2 to 3 days. Off work tomorrow. Oct, Cough (ICD-10 - R05.9) Oct, Bronchitis (ICD-10 - J40) Acute bronchitis material was printed [employer] Other 10-19-2022 NotePatient Education Materials [facility]s: [id number] History of Present illness Narrative* Payal Richardson [...] and patient voices understanding documented in this [facility] Phone: [phone]) 870-316904-07-2022 Hospital Discharge instructions* Instructions* Hannah Zavaleta RN - 05/17/2021 Discharge Instructions for Bariatric Surgery You had a Laparoscopic Sleeve Gastrectomy (05228) surgery to treat obesity. Recovery from this [...] scheduled appointment, please call the office at [phone]. Call Your Doctor If Any of the [...] sent through Care Everywhere. * Enoxaparin (Lovenox) (Cameroonian) * Video: How to Give Yourself an Anticoagulant (Blood Thinner) Shot (Cameroonian) documented in this [facility] Phone: [phone] 695-196603-23-2022 Hospital Discharge instructions* Instructions* Kendal Wilhelm APRN - CNP - 05/02/2021 Pre-operative Instructions NOTHING to eat [...] Day of Surgery/Procedure As a patient at [facility] you can expect quality medical and nursing care that is centered on your individual needs. Our goal is to make your surgical experience as comfortableas possible Directions to the Surgery Center The surgery Center at [facility] is located in the Emergency Room parking lot on [facility] or there is additional parking across the street. The address is [address] [place] [address]. Please check in at the Surgery Center [...] on the day of surgery please contact [phone] or [phone] If you have any other questions regarding your procedure/surgery please call your surgeon's office. documented in this [facility] Phone: [phone] 136-276303-23-2022 History of Present illness Narrative* Eloise Chi [...] syndrome) Under care of team 05/02/2021 pcp-Dr MelgozaQnzomx-voduaww-usij visit april 2021 Patient was evaluated in PAT & anesthesia guidelines were applied. NPO guidelines, medication instructions and scheduled arrival time were reviewed with patient. Anesthesia contacted: no Medical or cardiac clearance ordered: no, medical clearance obtained. LAURA Garcia CNP 05/02/21 11:53 AM documented in this [facility]: [phone]) 413-774110-25-2021 Evaluation note* Encounter Date Diagnosis Assessment Notes Treatment Notes Treatment Clinical Notes Nov, Contact with and (suspected) exposure to other viral communicable diseases (ICD-10 - Z20.828) Nov, Viral URI with cough (ICD-10 - J06.9) No COVID test completed at this time. Advised patient that will tx as viral URI. Supportive care as directed, increase fluids and rest, Tylenol/Motrin as directed, rx of [place] and Flonase as directed, cool mist humidifier, [...] Patient care instructions given in writting by [facility] Care At Home document [employer] Other Evaluation note* Diagnosis LYNN (obstructive sleep apnea) Obstructive sleep apnea (adult) (pediatric) documented in this encounter [employer] Phone: evaluation note* Diagnosis S/P laparoscopic sleeve gastrectomy- Primary Post-op pain Other acute postoperative pain documented in this encounter [employer] Phone: evaluation noteNo assessment information available [facility] Work Phone: Evaluation noteNo InformationNort [email or web address] Other Evaluation note* Diagnosis Hypertension affecting in second trimester- Primary 16 weeks gestation of Dichorionic diamniotic twin in second trimester H/O gastric sleeve documented in this encounter [facility] N[facility]ative - Reported* Type Description Date Medical History METABOLIC SYNDROME Medical History SYNCOPE Medical History anxiety Surgical History WISDOM TEETH Surgical History TONSILECTOMY Surgical History ENDOSCOPY AND COLONSCOPY Surgical History C section Hospitalization History see above [employer] Other [facility] general Narrative - Reported* Type Description Date Medical History METABOLIC SYNDROME Medical History SYNCOPE Medical History anxiety Surgical History WISDOM TEETH Surgical History TONSILECTOMY Surgical History ENDOSCOPY AND COLONSCOPY Surgical History C section Surgical History gastric sleeve Hospitalization History see above [facility] Other [facility] general Narrative - Reported* Type Description Date Medical History METABOLIC SYNDROME Medical History SYNCOPE Medical History anxiety Surgical History WISDOM TEETH Surgical History TONSILECTOMY Surgical History ENDOSCOPY AND COLONSCOPY Surgical History C section Surgical History gastric sleeve Surgical History cholcystectomy 09/10/2022 Hospitalization History see above [employer] Other InstructionsNot on filedocumented in this encounter [facility] SystemInstructionsNot on filedocumented in this encounter [facility] SystemReason for visit Narrative* Auth/Cert Specialty Diagnoses / Procedures Referred By Contac t Referred To Contact Diagnoses Morbid obesity (HCC) Obstructive sleep apnea GERD (gastroesophageal reflux disease) MORBID OBESITY, OBSTRUCTIVE SLEEP APNEA, GERD Procedures NH LAP, JAY RESTRICT PROC, LONGITUDINAL GASTRECTOMY XI ROBOTIC LAPAROSCOPIC GASTRECTOMY SLEEVE , LIVER BIOPSY, EGD- GI SCHEDULED Patricia Curry, DO [address] [address] [phone] [place] [address] Referral ID Status Reason Start Date Expiration Date Visits Re quested Visits Authorized [id number] 1 1 [employer] Phone: Summary Purpose Family History No Family History Records FoundNo Family History Records FoundNo Family History Records FoundNo Family History Records FoundNo Family History Records FoundNo Family History Records FoundNo Family History Records FoundNo Family History Records Found Advance Directives No Advanced Directives Records FoundLatest Code Status on File Code Status Date Activated Date Inactivated Comments Full Code 05/16/2021 10:14 AM Advance Directive Response Recorded Date/ Time Advance Directives No April 27, 2 019 7:20am Latest Code Status on File Code Status Date Activated Date Inactivated Comments Full Code 09/19/2020 11:44 PM 09/24/2020 5:00 PM Latest Code Status on File Code Status Date Activated Date Inactivated Comments Full Code 09/19/2020 11:44 PM 09/24/2020 5:00 PM Reason for Referral Status Reason Specialty Diagnoses / Procedures Referred By Contact Referred To Contact [facility] Diagnoses LYNN (obstructive sleep apnea) Procedures Baseline Diagnostic Sleep Study Ike Ortiz MD [address] [address] Specialty Diagnoses / Procedures Referred By Contac t Referred To Contact Diagnoses Hypertension affecting in second trimester 16 weeks gestation of Dichorionic diamniotic twin in second trimester Procedures ECG 12 lead Tatiana Yap MD [address] [place] [address] Referral ID Status Reason Start Date Expiration Date V isits Requested Visits Authorized [id number] Pending Review 02/07/2023 02/07/2024 1 1 Chief Complaint and Reason for Visit Chief Complaint Dysuria Additional Source Comments INFORMATION SOURCE (unrecogn ized section and content) DATE CREATED AUTHOR 07/31/2017 [facility] DATE CREATED AUTHOR AUTHOR'S ORGANIZ ATION 05/21/[address] [facility] DATE CREATED AUTHOR AUTHOR'S ORGANIZ ATION 12/03/2021 [facility] DATE CREATED AUTHOR AUTHOR'S ORGANIZ ATION 01/12/2022 [facility] DATE CREATED AUTHOR AUTHOR'S ORGANIZ ATION 02/11/2022 [facility] DATE CREATED AUTHOR AUTHOR'S ORGANIZ ATION 09/13/2022 [facility] DATE CREATED AUTHOR AUTHOR'S ORGANIZ ATION 02/06/2023 [facility] DATE CREATED AUTHOR AUTHOR'S ORGANIZ ATION 02/09/2023 [facility] Reason for Visit (unrecogniz ed section and content) Status Reason Specialty Diagnoses / Procedures Referred By Contact Referred To Contact Closed [facility] Diagnoses LYNN (obstructive sleep apnea) Procedures Baseline Diagnostic Sleep Study Ike Ortiz MD [address] [address] Status Reason Specialty Diagnoses / Procedures Referre d By Contact Referred To Contact Diagnoses K21.9 GERD E66.9 OBESITY Procedures [place] EGD TRANSORAL BIOPSY SINGLE/MULTIPLE EGD BIOPSY Patricia Curry, DO [address] [facility] [address] [place] [address] [facility] Reason Comments twin HX C/S HX gastric sleeve HX PTD Care Teams (unrecognized sec tion and content) Pacu Rn Relationship Specialty Start Date End Date Stephane Martin MD [address] [place] [address] PCP - General 05/17/20 Pacu Rn Relationship Specialty Start Date End Date Stephane Martin MD [address] [place] [address] PCP - General 05/17/20 Team Status: Inactive Member Role Status Dates Ale Shields APRN Attending Provider Active Pacu Rn Relationship Specialty Start Date End Date Margot Toure DO [address] [place] [address] PCP - General [facility] 01/03/23 Pacu Rn Relationship Specialty Start Date End Date Margot Toure DO [address] [place] [address] PCP - General Family Medicine 01/03/23 Ordered [...] (Given - Provider: Sharmin Sam APRN - TECHNOLOGY ADMINISTRATOR) ceFAZolin (ANCEF) 3000 mg in sterile water 30 mL IV syringe (COMPLETED) 3,000 mg, IntraVENous, EVERY 8 HOURS, 2 doses, First dose (after last reorder) on Fri05/16/21 at 1600, Last dose on Liz 05/17/21 at 0000, Antimicrobial Indications: Surgical Prophylaxis, Administer over 5 mins. 1537 (Given - Provider: Hannah Zavaleta RN) 0017 (Given - Provider: Nohemy Underwood, RN) famotidine (PEPCID) 20 mg in sodium chloride (PF) 10 mL injection(Linked Group 1) 20 mg, IntraVENous, 2 TIMES DAILY, First dose on Fri05/16/21 at 1030, Until Discontinued, Administer if oral route cannot be used, Post-op 1231 (Given - Provider: Hannah Zavaleta RN)2007 (See Alternative - Provider: Nohemy Underwood, RN) 921 (See Alternative - Provider: Hannah Zavaleta RN)2100 (Due) famotidine (PEPCID) tablet 20 mg(Linked Group 1) 20 mg, Oral, 2 TIMES DAILY, First dose on Fri05/16/21 at 1030, Until Discontinued, Post-op 1231 (See Alternative - Provider: Hannah Zavaleta RN)2007 (Given - Provider: Nohemy Underwood RN) 921 (Given - Provider: Hannah Zavaleta RN)2099 (Due) gabapentin (NEURONTIN) capsule 100 mg 100 mg, Oral, 3 TIMES DAILY, First dose on Fri05/16/21 at 0915, Until Discontinued 914 (Due)1530 (Given - Provider: Hannah Zavaleta RN)2007 (Given - Provider: Nohemy Underwood RN) 0758 (Given - Provider: Hannah Zavaleta RN)133 (Given - Provider: Hannah Zavaleta RN)2099 (Due) heparin (porcine) injection 5,000 Units (COMPLETED) 5,000 Units, SubCUTAneous, ONCE, 1 dose, On Fri05/16/21 at 0630, Pre-op (day of surgery) 0629 (Given - Provider: Whitney Ray RN) heparin (porcine) injection 5,000 Units 5,000 Units, SubCUTAneous, EVERY 8 HOURS SCHEDULED (3 times per day), First dose on Fri05/16/21 at 1430, Until Discontinued 1529 (Given - Provider: Hannah Zavaleta RN)2203 (Given - Provider: Nohemy Underwood RN) 06 (Given - Provider: Nohemy Underwood RN)133 (Given - Provider: Hannah Zavaleta RN)2199 (Due) ipratropium-albuterol (DUONEB) nebulizer solution 1 ampule 1 ampule, Inhalation, EVERY 6 HOURS WHILE AWAKE, First dose on Fri05/16/21 at 0915, Until Discontinued, Initiate RT Bronchodilator Protocol: Yes, q6 hours and PRN 1016 (Not Given - Provider: Sanjay Boyer RCP - Reason: Patient/family refused)1320 (Given - Provider: Sanjay Boyer RCP)2059 (Given - Provider: Giana Crater RCP) 0732 (Given - Provider: Brady Lopes RCP)1317 (Given - Provider: Brady Lopes RCP)2000 (Due) ketorolac (TORADOL) injection 30 mg (COMPLETED) 30 mg, IntraVENous, ONCE, 1 dose, On Fri05/17/21 at 1045, Do not administer for more than 5 days 1046 (Given - Provid er: Hannah Zavaleta RN) scopolamine (TRANSDERM-SCOP) transdermal patch 1 patch 1 patch, TransDERmal, Administer over 72 Hours, EVERY 72 HOURS, First dose on 05/19/21 at 0900, 1.5 mg patch delivers 1 [...] Hannah Zavaleta RN - Reason: IV Fluid Infusing)2008 (Not Given - Provider: Nohemy Underwood RN [...] only 0912 (Given - Provider: Sivan Lara RN)0922 (Given - Provider: Sivan Lara RN)0932 (Given [...] Zavaleta RN) 0108 (Given - Provider: Nohemy Underwood, RN) metoclopramide (REGLAN) injection 10 mg (COMPLETED) [...] RN)2007 (Given - Provider: Nohemy Underwood RN) 0440 (Given - Provider: Nohemy Underwood, RN) oxyCODONE-acetaminophen (PERCOCET) 5-325 MG per tablet 1 tablet(Linked Group 2) Mg/kg dosing is based on the oxycodone component., 1 tablet, Oral, EVERY 6 HOURS PRN, Starting on Fri05/16/21 at 0851, Until Discontinued, Pain Moderate (4-6), Maximum dose of acetaminophen is 4000 mg from all sources in 24 hours. 1357 (See Alternative - Provider: Hannah Zavaleta RN)2007 (See Alternative - Provider: Nohemy Underwood, RN) 0440 (See Alternative - Provider: Nohemy Underwood, RN)1046 (See Alternative - Provider: Hannah Zavaleta, ANCELMO)1644 (See Alternative - Provider: Hannah Zavaleta, RN) oxyCODONE-acetaminophen (PERCOCET) 5-325 MG per tablet [...] Nohemy Underwood RN)1046 (Given - Provider: Hannah Zavaleta, ANCELMO)1644 (Given - Provider: Hannah Zavaleta RN) promethazine (PHENERGAN) tablet 25 mg 25 mg, [...] to back table, 1000 ml. 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 [employer] provides no warranty or guarantee of the accuracy or completeness of information in this document.
[2023-02-14 06:09] LABS: AFP Value 61.6 ng/mL (.); Gest. Age on Collection Date 16.9 weeks (.); Gestat. Age Based On As provided (.); Insulin Dep Diabetes No (.); Maternal Age At EDD 28.8 yr (.); OSBR Risk 1 IN 1615 (.); Results Report (.)
== END 2023-02-12 11:28 | disposition home or self-care (01) ==
LOC: LAB 11:28
PROVIDERS: Visit Provider Obstetrics & Gynecology
DX: Z34.92 Encounter for supervision of normal pregnancy, unspecified, second trimester (principal); Z36.1 Encounter for antenatal screening for raised alphafetoprotein level
CPT/HCPCS: 36415; 82105

== ENCOUNTER 2023-02-12 11:31 | Outpatient (OUT) | payer MEDICAID, SELFPAY ==
--- NOTE | 2023-02-12 | ECG_ITS ---
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
--- OUTSIDE RECORDS SUMMARY | 2023-02-12 11:41 | XMS_ITS | CCD ---
Author Name Unknown Address [address] [place] [address] Organization [facility] Care Team Providers Care Hand Tapper Name Role Phone Neo Anderson Unavailable Unavailable Neo Anderson Unavailable Unavailable Jose Maria Santoyo MD, [facility] Primary Care Provider DOC OKEEFE Referring Unavailable JOSE MARIA SANTOYO STEPH[facility] Primary Care Unavailabl e DOC OKEEFE E Referring Unavailable [facility] Primary Care Unavailabl e IKE ORTIZ Referring Unavailable [facility], [facility] Primary Care [...] Primary Care Unavailable LAURA Shields Attending Provider [phone] Ale Shields Unavailable PATRICIA CURRY Attending Unavailable [...] sources) Ibuprofen; Translations: [IBUPROFEN] Drug Allergy 09-19-2021 [facility] Medications Current Medications Medication Drug Class(es) Dates [...] 30 mg oral tablet (1 source) Uncompetitive H-wrudce-U-aspartate Receptor Antagonist, Sigma-1 Agonist Start: 2020 take 1 tablet by mouth every eight hours [place] DMT 30-30 MG 1 tablet Orally every [...] Iron (2 sources) Iron Active lactobacillus acidophilus [id number] unt / pectin 100 mg oral tablet [...] extended release oral tablet (2 sources) Uncompetitive S-bwxdwb-G-asparta te Receptor Antagonist, Sigma-1 Agonist Start: 01-14-2022 [...] - Officeon 2022 Radiology Study observation (narrative) [facility] HIV 1&2 AB/AG Screen (P24 AG )on 12-20-2022 HIV 1&2 AB/AG Non-Reactive [facility] Hepatitis B surface antigeno n 12-20-2022 Hepatitis B Surface Antigen Negative [facility] No Panel Informationon 12-20 [facility] Rubella IGG immune statuson 12-20-2022 Rubella immune IgG 1.96 [facility] Syphilis Total(Unknown Syphi lis Status)on 12-20-2022 Syphilis Non-Reactive [facility] Ultrasound - Officeon 2022 SEE SCANNED REPORt MANUAL LY TRANSCRIBED RESULTS [facility] COVID + FLU Quick Testingon 10-12-2022 SARS-CoV-2 (COVID-19) RNA BECCA+probe Ql (Unsp spec) negtaive [facility] [employer] Other COVID + FLU Quick Testing Negative [facility] [employer] Other Basic Metabolic Profon 09-11 Anion gap [Moles/Vol] 9 mmol/L Normal 9-17 [facility] Comment on above: Performed By: #### B MP, CBC, PT #### [employer] [address] [place] [address] [employer] Machine Operator: Anthony Aguilar MD Calcium [Mass/Vol] 8.8 mg/dL Normal 8.6-10.4 [facility] Comment on above: Performed By: #### B MP, CBC, PT #### [facility] [address] [place] [address] [employer] Operator: Anthony Aguilar MD Chloride [Moles/Vol] 106 mmol/L Normal 98-107 [facility] Comment on above: Performed By: #### B MP, CBC, PT #### [facility] [address] [place] [address] [employer] Operator: Anthony Aguilar MD CO2 [Moles/Vol] 23 mmol/L Normal 20-31 [facility] Comment on above: Performed By: #### B MP, CBC, PT #### [facility] [address] [place] [address] [employer] Operator: Anthony Aguilar MD Creatinine [Mass/Vol] 0.7 mg/dL Normal 0.5-0.9 [facility] Comment on above: Performed By: #### B MP, CBC, PT #### [address] [address] [employer] Operator: Anthony Aguilar MD GFR/1.73 sq M.predicted among non-blacks MDRD (S/P/Bld) [Vol rate/Area] mL/min/{1.73_m2} Normal >60 [facility] Comment on above: Result Comment: [...] By: #### B MP, CBC, PT #### [facility] [address] [place] [address] [employer] Machine Operator: Anthony Aguilar MD Glucose [Mass/Vol] 79 mg/dL Normal 70-99 [facility] Comment on above: Performed By: #### B MP, CBC, PT #### [facility] [address] [place] [address] [employer] Operator: Anthony Aguilar MD Potassium [Moles/Vol] 4.1 mmol/L Normal 3.7-5.3 [facility] Comment on above: Performed By: #### B MP, CBC, PT #### [facility] [address] [place] [address] [employer] Operator: Anthony Aguilar MD Sodium [Moles/Vol] 138 mmol/L Normal 135-144 [facility] Comment on above: Performed By: #### B MP, CBC, PT #### [facility] [address] [place] [address] [employer] Operator: Anthony Aguilar MD Urea nitrogen [Mass/Vol] 11 mg/dL Normal 6-20 [facility] Comment on above: Performed By: #### B FIFI, CBC, PT #### [facility] [address] [place] [address] [employer] Operator: Anthony Aguilar MD CBCon 09-11-2022 Erythrocyte distribution width (RBC) [Ratio] 13.2 % Normal 11.8-14.4 [facility] Comment on above: Performed By: #### B FIFI, CBC, PT #### [facility] [address] [place] [address] [employer] Operator: Anthony Aguilar MD Hematocrit (Bld) [Volume fraction] 41.6 % Normal 36.3-47.1 [facility] Comment on above: Performed By: #### B MP, CBC, PT #### [facility] [address] [place] [address] [employer] Operator: Anthony Aguilar MD Hemoglobin (Bld) [Mass/Vol] 13.3 g/dL Normal 11.9-15.1 [facility] Comment on above: Performed By: #### B MP, CBC, PT #### [address] [address] [employer] Operator: Anthony Aguilar MD MCH (RBC) [Entitic mass] 28.3 pg Normal 25.2-33.5 [facility] Comment on above: Performed By: #### B MP, CBC, PT #### [address] [address] [employer] Operator: Anthony Aguilar MD MCHC (RBC) [Mass/Vol] 32.0 g/dL Normal 28.4-34.8 [facility] Comment on above: Performed By: #### B MP, CBC, PT #### [address] [address] [employer] Operator: Anthony Aguilar MD MCV (RBC) [Entitic vol] 88.5 fL Normal 82.6-102.9 [facility] Comment on above: Performed By: #### B MP, CBC, PT #### [address] [address] [employer] Operator: Anthony Aguilar MD NRBC Automated 0.0 per 100 WBC Normal 0.0 [facility] Comment on above: Performed By: #### B MP, CBC, PT #### [address] [address] [employer] Operator: Anthony Aguilar MD Platelet mean volume (Bld) [Entitic vol] 9.7 fL Normal 8.1-13.5 [facility] Comment on above: Performed By: #### B MP, CBC, PT #### [facility] [address] [place] [address] [employer] Operator: Anthony Aguilar MD Platelets (Bld) [#/Vol] 276 10*3/uL Normal 138-453 [facility] Comment on above: Performed By: #### B MP, CBC, PT #### [address] [address] [employer] Operator: Anthony Aguilar MD RBC (Bld) [#/Vol] 4.70 10*6/uL Normal 3.95-5.11 [facility] Comment on above: Performed By: #### B MP, CBC, PT #### [address] [address] [employer] Operator: Anthony Aguilar MD WBC (Bld) [#/Vol] 7.4 10*3/uL Normal 3.5-11.3 [facility] Comment on above: Performed By: #### B MP, CBC, PT #### [facility] [address] [place] [address] [employer] Operator: Anthony Aguilar MD PTon 09-11-2022 INR Coag (PPP) [Relative time] 1.0 {INR} Normal [facility] Comment on above: Result Comment: Therapeutic Range: Moderate Anticoagulant Intensity: INR = 2.0-3.0 High Anticoagulant Intensity: INR = 2.5-3.5 Performed By: #### B MP, CBC, PT #### [facility] [address] [place] [address] [employer] Operator: Anthony Aguilar MD PT Coag (PPP) [Time] 12.9 s Normal 11.7-14.9 [facility] Comment on above: Performed By: #### B MP, CBC, PT #### [address] [address] [employer] Operator: Anthony Aguilar MD Surgical Pathologyon 023 Surgical Pathology (NOTE) Path Number: [id number] -- Diagnosis -- GALLBLADDER, CHOLECYSTECTOMY: -CHRONIC CHOLECYSTITIS [...] lesions or periductal lymph nodes are identified. Packing Machine Tender sections 1c. tm Microscopic Description Microscopic examination performed. Processing Lab: [address] [address] Interpretation Performed at [address] [address] SURGICAL PATHOLOGY CONSULTATION Patient Name: FINA VELÁSQUEZ [facility] Rec: [id number] [facility] [employer] [facility] ANATOMIC PATHOLOGY [address] [place] [phone] [facility] Urine Cultureon 02-08-2022 Bacteria identified Cx Nom (U) Reason for Exam Dysuria Urine ORGANISM: Escherichia coli (O:ESCCOL) [place] Count >100,000 Aerobic LISA Charge (NMIC56) ---- [...] RESISTANT TO ALL B-LACTAM DRUGS. PERFORMED BY: [place] [address] PATHOLOGIST RETAIL SALES LEAD SAMIRA WEN M.D. [facility] Comment on above: Performed By: #### C UU #### [address] VC CONSULT FOLLOWUPon 2021 VC CONSULT FOLLOWUP Patient: FINA VELÁSQUEZ Exam Date: 01/08/2022 : 1995 Gender:F Ordering : DR JAMEEL BURGOS M.D. Admission #: [id number] Family : Order #: [id number] CLICK HERE TO VIEW EXAM RADIOLOGY REPORT [...] Hinton M.D. on 01/08/2022 at 10:10 Normal [facility] VC EXT VENOUS RT LIMITEDon 1 03-10-2021 VC EXT VENOUS RT LIMITED Patient: FINA VELÁSQUEZ Exam Date: 01/08/2022 : 1995 Gender:F Ordering : DR JAMEEL BURGOS M.D. Admission #: [id number] Family : Order #: [id number] CLICK HERE TO VIEW EXAM RADIOLOGY REPORT [...] Hinton M.D. on 01/08/2022 at 10:05 Normal [facility] VC ENDOVENOUS ABL 1ST V RTon 12-31-2021 VC ENDOVENOUS ABL 1ST V RT Patient: FINA VELÁSQUEZ Exam Date: 12/31/2021 : 1995 Gender:F Ordering : DR JAMEEL BURGOS M.D. Admission #: [id number] Family : Order #: [id number] CLICK HERE TO VIEW EXAM RADIOLOGY REPORT [...] Jameel Burgos MD on 12/31/2021 at 11:06 [facility] ED Clinical Summaryon 2021 ED Clinical Summary [facility] Urgent Care [address] [place] [address] Clinical Summary PERSON INFORMATION Name: VERNON VELÁSQUEZ Age: 26 Years Sex: FEMALE : 1995 MRN: Acct#: Visit Reason: OTTERBEIN PHYSICAL Arrival: 11/28/2021 10:39:56 Discharge: 11/28/2021 10:59:00 LOS: 000 00:20 Check In: 11/28/2021 10:39:56 Checkout: 11/28/2021 10:59:00 Address: [address] [place] [address] PCP: Provider, None PROVIDER INFORMATION VITALS INFORMATION Vital Sign Triage Latest Temperature Tympanic Temperature Temporal Artery Pulse Rate O2 Sat Respiratory Rate Blood Pressure / / MEDICAL INFORMATION Medications Given: Allergy Information: No known allergies PHYSICIAN DOCUMENTATION DISCHARGE INFORMATION: Discharge Disposition: Eloped Discharge Location: PATIENT EDUCATION INFORMATION Instructions: Follow-Up: DIAGNOSIS: Patient Understands: Comment: [facility] ED Patient Summaryon ED Patient Summary [facility] ? Urgent Care [address] [place] [address] [id number] PATIENT DISCHARGE INSTRUCTIONS Patient Information Name: VERNON VELÁSQUEZ Age: 26 Years Date of : 1995 Reason For Visit: MICHELLE PHYSICAL Arrival Time: 11/28/2021 10:39:56 Primary Care Physician: Provider, None Attending Physician: Nuno Bradshaw Comment: Patient Education Medication Information: The exam and treatment you received today in the [facility] Department were for an urgent problem and are not intended as complete care. It is important for you to follow up with a doctor, nurse practitioner, or physician?s trust operations assistant for ongoing care. If your symptoms [...] so we can reach you if necessary. [facility] Emergency Department has provided you with a complete list of medications post discharge. Please inform your software specialist/provider of your visit and for further instruction [...] for Disease Control and Prevention October 2013 [facility] VC CONSULT FOLLOWUPon 2021 VC CONSULT FOLLOWUP Patient: FINA VELÁSQUEZ Exam Date: 11/28/2021 : 1995 Gender:F Ordering : DR JAMEEL BURGOS M.D. Admission #: [id number] Family : Order #: [id number] CLICK HERE TO VIEW EXAM RADIOLOGY REPORT [...] Hinton M.D. on 11/28/2021 at 10:04 Normal [facility] VC EXT VENOUS LT LIMITEDon 1 VC EXT VENOUS LT LIMITED Patient: FINA VELÁSQUEZ Exam Date: 11/28/2021 : 1995 Gender:F Ordering : DR JAMEEL BURGOS M.D. Admission #: [id number] Family : Order #: [id number] CLICK HERE TO VIEW EXAM RADIOLOGY REPORT [...] Hinton M.D. on 11/28/2021 at 09:45 Normal [facility] VC ENDOVENOUS ABL 1ST V LTon 11-22-2021 VC ENDOVENOUS ABL 1ST V LT Patient: FINA VELÁSQUEZ Exam Date: 11/22/2021 : 1995 Gender:F Ordering : DR JAMEEL BURGOS M.D. Admission #: [id number] Family : Order #: [id number] CLICK HERE TO VIEW EXAM RADIOLOGY REPORT [...] Burgos MD on 11/22/2021 at 09:04 Normal [facility] VC COMP CONSULTATIONon 10-17 VC COMP CONSULTATION Patient: FINA VELÁSQUEZ Exam Date: 10/17/2021 : 1995 Gender:F Ordering : DR JAMEEL BURGOS M.D. Admission #: [id number] Family : Order #: [id number] CLICK HERE TO VIEW EXAM RADIOLOGY REPORT [...] arterial disease 5. CEAP: C2, EC, AP, NM PLAN: 1. Continued use of compression stockings [...] M.D. on 10/17/2021 at 12:46 Normal [facility] Basic Metabolic Panelon 04-0 Anion gap [Moles/Vol] 8 mmol/L Low 9 - 17 mmol/L [facility] Calcium [Mass/Vol] 8.6 mg/dL 8.6 - 10. 4 mg/dL [facility] Chloride [Moles/Vol] 106 mmol/L 98 - 107 mmol/L [facility] CO2 [Moles/Vol] 23 mmol/L 20 - 31 mmol/L [facility] Creatinine [Mass/Vol] 0.67 mg/dL 0.50 - 0.90 mg/dL [facility] GFR >60 >60 mL/min [facility] GFR Non- >60 >60 mL/min [facility] GFR/1.73 sq M.predicted MDRD (S/P/Bld) [Vol rate/Area] [facility] Comment on above: Average GFR for 20-2 9 years old: 116 mL/min/1.73sq m Chronic Kidney Disease: <60 mL/min/1.73sq m Kidney failure: <15 mL/min/1.73sq m eGFR calculated using average adult body mass. Additional eGFR calculator available at: http://www.[employer]bird [employer]/multiple_crcl_2011.htm Glucose [Mass/Vol] 83 mg/dL 70 - 99 mg/dL [facility] Interpretation and review of laboratory results Abnormal [facility] Potassium [Moles/Vol] 3.9 mmol/L 3.7 - 5.3 mmol/L [facility] Sodium [Moles/Vol] 137 mmol/L 135 - 144 mmol/L [facility] Urea nitrogen (BldV) [Mass/Vol] 7 mg/dL 6 - 20 mg/dL [facility] CBCon 05-17-2021 Hematocrit (Bld) [Volume fraction] 34.4 % Low 36.3 - 47.1 % [facility] Hemoglobin.gastroin testinal spec 1 Ql (Stl) 11.0 g/dL Low 11.9 - 15.1 g/dL [facility] Interpretation and review of laboratory results Abnormal [facility] MCH (RBC) [Entitic mass] 27.2 pg 25.2 - 33.5 pg [facility] MCHC (RBC) [Mass/Vol] 32.0 g/dL 28.4 - 34.8 g/dL [facility] MCV (RBC) [Entitic vol] 85.1 fL 82.6 - 102.9 fL [facility] NRBC Automated 0.0 0.0 per 100 WBC [facility] Platelet distribution width (Bld) [Ratio] 14.1 % 11.8 - 14.4 % [facility] Platelet mean volume (Bld) [Entitic vol] 10.1 fL 8.1 - 13.5 fL [facility] Platelets (Bld) [#/Vol] 302 10*3/uL [facility] RBC (Bld) [#/Vol] 4.04 10*6/uL 3.95 - 5.1 1 m/uL [facility] WBC (Bld) [#/Vol] 13.7 10*3/uL High [facility] SURGICAL PATHOLOGY REPORTon 05-17-2021 Surgical Pathology Report [...] x 0.5 cm piece of adipose tissue. Packing Machine Tender sections 1cs. tm Microscopic Description 1 H&E reviewed. Microscopic examination performed. SURGICAL PATHOLOGY CONSULTATION Patient Name: FINA VELÁSQUEZ [facility] Rec: [id number] Path Number: [id number] [facility] [employer] [facility] ANATOMIC PATHOLOGY [address] [place] [address]. [place], [place] [address] [facility] Basic Metabolic Panelon 04-0 Anion gap [Moles/Vol] 10 mmol/L 9 - 17 mmol/L [facility] Calcium [Mass/Vol] 8.7 mg/dL 8.6 - 10. 4 mg/dL [facility] Chloride [Moles/Vol] 105 mmol/L 98 - 107 mmol/L [facility] CO2 [Moles/Vol] 23 mmol/L 20 - 31 mmol/L [facility] Creatinine [Mass/Vol] 0.75 mg/dL 0.50 - 0.90 mg/dL [facility] GFR >60 >60 mL/min [facility] GFR Non- >60 >60 mL/min [facility] GFR/1.73 sq M.predicted MDRD (S/P/Bld) [Vol rate/Area] [facility] Comment on above: Average GFR for 20-2 9 years old: 116 mL/min/1.73sq m Chronic Kidney Disease: <60 mL/min/1.73sq m Kidney failure: <15 mL/min/1.73sq m eGFR calculated using average adult body mass. Additional eGFR calculator available at: http://www.[employer]as[employer]/multiple_crcl_2012.htm Glucose [Mass/Vol] 132 mg/dL High 70 - 99 mg/dL [facility] Interpretation and review of laboratory results Abnormal [facility] Potassium [Moles/Vol] 3.5 mmol/L Low 3.7 - 5.3 mmol/L [facility] Sodium [Moles/Vol] 138 mmol/L 135 - 144 mmol/L [facility] Urea nitrogen (BldV) [Mass/Vol] 10 mg/dL 6 - 20 mg/dL [facility] CBC without Diffon Hematocrit (Bld) [Volume fraction] 38.8 % 36.3 - 47.1 % [facility] Hemoglobin.gastroin testinal spec 1 Ql (Stl) 12.6 g/dL 11.9 - 15.1 g/dL [facility] Interpretation and review of laboratory results Abnormal [facility] MCH (RBC) [Entitic mass] 27.2 pg 25.2 - 33.5 pg [facility] MCHC (RBC) [Mass/Vol] 32.5 g/dL 28.4 - 34.8 g/dL [facility] MCV (RBC) [Entitic vol] 83.8 fL 82.6 - 102.9 fL [facility] NRBC Automated 0.0 0.0 per 100 WBC [facility] Platelet distribution width (Bld) [Ratio] 13.9 % 11.8 - 14.4 % [facility] Platelet mean volume (Bld) [Entitic vol] 9.8 fL 8.1 - 13.5 fL [facility] Platelets (Bld) [#/Vol] 340 10*3/uL [facility] RBC (Bld) [#/Vol] 4.63 10*6/uL 3.95 - 5.1 1 m/uL [facility] WBC (Bld) [#/Vol] 15.0 10*3/uL High [facility] POC Glucose Fingerstickon Glucose [Mass/Vol] 77 mg/dL 65 - 105 mg/dL [facility] POCT urine pregnancyon 05-16 Beta HCG ( test) Ql (U) Negative NEGATIVE [facility] Comment on above: Specimens with hCG l evels near the threshold of the test (25 mIU/mL) may give a negative or indeterminate result. In such cases, another test should be performed with a new specimen in 48-72 hours. If early is suspected clinically in this setting, correlation with quantitative serum b-hCG level is suggested. [facility] [id number] 05-15-2021 SARS-CoV-2 (COVID-19) RNA BECCA+probe Ql (Unsp spec) Normal [facility] Comment on above: Performed By: #### C OVID #### [facility] [address] [place], [place] [id number] [employer] Machine Operator: Anthony Aguilar MD [facility] [address] [place] [address] [place] [address] [employer]el Machine Operator: Jameel Lawler MD SARS-CoV-2 (COVID-19) RNA BECCA+probe Ql (Unsp spec) Not detected Normal NOTDET [facility] Comment on above: Result Comment: The specimen is NEGATIVE for SARS-CoV-2, the novel coronavirus associated with COVID-19. A negative result does not rule out COVID-19. [employer] SARS-CoV-2 for use on the [employer] XOJET0/8800 [employer] is a real-time RT-PCR test intended [...] this assay. Fact sheet for Healthcare Providers: https://www.fda.gov/media/519345/download Fact sheet for Patients: https://www.fda.gov/media/837289/download METHODOLOGY: RT-PCR Performed By: #### C OVID #### [facility] [address] [place], [place] [id number] [employer]el Machine Operator: Anthony Aguilar MD [facility] [address] [place] [address] [employer] Machine Operator: Jameel Lawler MD [id number] 05-14-2021 SARS-CoV-2 (COVID-19) RNA BECCA+probe Ql (Unsp spec) .NASOPHARYNGEAL SWAB Normal [facility] Comment on above: Performed By: #### C OVID #### [facility] [address], [place] [id number] [employer]el Machine Operator: Anthony Aguilar MD [facility] [address] [place] [address] [employer]el Machine Operator: Jameel Lawler MD Nicotine, Bloodon 05-05-2021 1-WC-Alcyileo <2 ng/mL [facility] h Cotinine <2 ng/mL [facility] Nicotine <2 ng/mL [facility] Comment on above: (NOTE) Consistent with abstinence [...] developed and its performance characteristics determined by [facility]. It has not been cleared or approved by the [place] Food and Drug Administration. This test was performed in a CLIA certified laboratory and is intended for clinical purposes. Performed By: [facility] [address] [place] [address] [employer]: Yara Rodriguez MD [facility] EKG 12 LeadOrdered By: Diaz Conway on 05-03-2021 Atrial Rate 72 BPM [facility] Work Phone: P [place] 45 degrees [facility] Work Phone: P-R Interval 142 ms [facility] Work Phone: Q-T Interval 376 ms [facility] Work Phone: QRS Duration 100 ms [facility] Work Phone: QTc Calculation (Bazett) 411 ms [facility] Work Phone: R [place] 22 degrees [facility] Work Phone: T [place] 32 degrees [facility] Work Phone: Ventricular Rate 72 BPM [facility] Work Phone: [facility] Work Phone: EKG 12 Leadon 05-03-2021 Normal sinus rhythm Normal ECG No previous ECGs available [facility] Diaz Elias MD - 05/03/2021 Normal sinus rhythm Normal ECG No previous ECGs available [facility] Work Phone: APTTon 05-02-2021 aPTT Coag (Bld) [Time] 25.0 s [facility] Comment on above: IV Heparin Therapy Range: 48.6-77.8 Basic Metabolic Panelon 04-11 Anion gap [Moles/Vol] 15 mmol/L 9 - 17 mmol/L [facility] Calcium [Mass/Vol] 9.8 mg/dL 8.6 - 10. 4 mg/dL [facility] Chloride [Moles/Vol] 102 mmol/L 98 - 107 mmol/L [facility] CO2 [Moles/Vol] 21 mmol/L 20 - 31 mmol/L [facility] Creatinine [Mass/Vol] 0.55 mg/dL 0.50 - 0.90 mg/dL [facility] GFR >60 >60 mL/min [facility] GFR Non- >60 >60 mL/min [facility] GFR/1.73 sq M.predicted MDRD (S/P/Bld) [Vol rate/Area] [facility] Comment on above: Average GFR for 20-2 9 years old: 116 mL/min/1.73sq m Chronic Kidney Disease: <60 mL/min/1.73sq m Kidney failure: <15 mL/min/1.73sq m eGFR calculated using average adult body mass. Additional eGFR calculator available at: http://www.[employer]as[employer]/multiple_crcl_2012.htm Glucose [Mass/Vol] 85 mg/dL 70 - 99 mg/dL [facility] Potassium [Moles/Vol] 4.5 mmol/L 3.7 - 5.3 mmol/L [facility] Sodium [Moles/Vol] 138 mmol/L 135 - 144 mmol/L [facility] Urea nitrogen (BldV) [Mass/Vol] 11 mg/dL 6 - 20 mg/dL [facility] CBCon 05-02-2021 Hematocrit (Bld) [Volume fraction] 41.0 % 36.3 - 47.1 % [facility] Hemoglobin.gastroin testinal spec 1 Ql (Stl) 12.9 g/dL 11.9 - 15.1 g/dL [facility] MCH (RBC) [Entitic mass] 26.9 pg 25.2 - 33.5 pg [facility] MCHC (RBC) [Mass/Vol] 31.5 g/dL 28.4 - 34.8 g/dL [facility] MCV (RBC) [Entitic vol] 85.6 fL 82.6 - 102.9 fL [facility] NRBC Automated 0.0 0.0 per 100 WBC [facility] Platelet distribution width (Bld) [Ratio] 13.7 % 11.8 - 14.4 % [facility] Platelet mean volume (Bld) [Entitic vol] 9.8 fL 8.1 - 13.5 fL [facility] Platelets (Bld) [#/Vol] 380 10*3/uL [facility] RBC (Bld) [#/Vol] 4.79 10*6/uL 3.95 - 5.1 1 m/uL [facility] WBC (Bld) [#/Vol] 11.2 10*3/uL [facility] No Panel Informationon 05-02 [facility] Protime-INRon 05-02-2021 INR Coag (Bld) [Relative time] 1.0 {INR} [facility] Comment on above: Therapeutic Range: Moderate Anticoagulant Intensity: INR = 2.0-3.0 High Anticoagulant Intensity: INR = 2.5-3.5 PT Coag (PPP) [Time] 10.6 s [facility] XR CHEST (2 VW)on 05-02-2021 No acute [...] No free air. IMPRESSION: No acute process. [facility] Phone: Radiology Study observation (narrative) [facility] Phone: XR CHEST (2 VW)Ordered By: Santos Florez on 05-02-2021 [facility] Phone: [id number] 12-05-2020 SARS-CoV-2 (COVID-19) RNA BECCA+probe Ql (Unsp spec) [facility] Comment on above: Performed By: #### C OVID #### [employer] [address] [place] [address] [employer] Machine Operator: Anthony Aguilar MD [facility] [address] [place] [address] [employer] Operator: Jameel Lawler MD SARS-CoV-2 (COVID-19) RNA BECCA+probe Ql (Unsp spec) Not detected Normal [facility] Comment on above: Result Comment: The specimen is NEGATIVE for SARS-CoV-2, the novel coronavirus associated with COVID-19. A negative result does not rule out COVID-19. Lucrecia SARS-CoV-2 for use on the [employer]0/8800 [employer] is a real-time RT-PCR test intended [...] this assay. Fact sheet for Healthcare Providers: https://www.fda.gov/media/345542/download Fact sheet for Patients: https://www.fda.gov/media/283908/download METHODOLOGY: RT-PCR Performed By: #### C OVID #### [facility] [address] [place], [place] [id number] [employer] Operator: Anthony Aguilar MD [facility] [address] [place] [address] [place] [address] [employer] Operator: Jameel Lawler MD [id number] 12-04-2020 SARS-CoV-2 (COVID-19) RNA BECCA+probe Ql (Unsp spec) .NASOPHARYNGEAL SWAB Normal [facility] Comment on above: Performed By: #### C OVID #### [facility] [address] [place] [address] [employer] Operator: Anthony Aguilar MD [facility] [address] [place] [address] [place] [address] [employer] Operator: Jameel Lawler MD Vital Signs Date Time Vital Sign Value Performing Clinician Facility 02-07-2023 13:34-0500 Body height 170.2 cm Tatiana Yap MD Work Phone: [facility] 02-07-2023 13:34-0500 Body mass index (BMI) [Ratio] 34.14 kg/m2 Tatiana Yap MD Work Phone: [facility] 02-07-2023 13:34-0500 Body weight 98.88 kg Tatiana Ypa MD Work Phone: [facility] 02-07-2023 13:34-0500 Diastolic blood pressure 83 mm[Hg] Tatiana Yap MD Work Phone: [facility] 02-07-2023 13:34-0500 Heart rate 76 /min Tatiana Yap MD Work Phone: [facility] 02-07-2023 13:34-0500 Systolic blood pressure 126 mm[Hg] Tatiana Yap MD Work Phone: [facility] 10-12-2022 10:10-0400 Body height 170.18 cm Lilia Willow Other [facility] 10-12-2022 10:10-0400 Body mass index (BMI) [Ratio] 32.86 kg/m2 Lilia Willow Other [facility] 10-12-2022 10:10-0400 Body temperature 99 [degF] Lilia Willow Other [facility] Other 10-12-2022 10:10-0400 Body weight 95.17 kg Lilia Willow Other [facility] Other 10-12-2022 10:10-0400 Diastolic blood pressure 74 mm[Hg] Lilia Willow Other [facility] Other 10-12-2022 10:10-0400 SaO2% (BldA) [Mass fraction] 98 % Lilia Willow Other [facility] Other 10-12-2022 10:10-0400 Systolic blood pressure 118 mm[Hg] Lilia Willow Other [facility] Other 05-17-2021 15:52-0400 Body temperature 98.49 [degF] Patricia Antoinette SOLITARIO Work Phone: [facility] 04-07-2022 15:52-0400 Diastolic blood pressure 97 mm[Hg] Patricia Curry DO Work Phone: [facility] 05-17-2021 15:52-0400 Heart rate 70 /min Patricia Curry DO Work Phone: [facility] 05-17-2021 15:52-0400 Respiratory rate 18 /min Patricia Curry [email or web address] Work Phone: [facility] 05-17-2021 15:52-0400 SaO2% (BldA) [Mass fraction] 99 % Patricia Curry [email or web address] Work Phone: [facility] 05-17-2021 15:52-0400 Systolic blood pressure 138 mm[Hg] Patricia Curry DO Work Phone: [facility] 05-16-2021 06:06-0400 Body mass index (BMI) [Ratio] 43.16 kg/m2 Patricia Curry [email or web address] Work Phone: [facility] 05-16-2021 06:06-0400 Body weight 125 kg Patricia Curry [email or web address] Work Phone: [facility] 05-16-2021 05:57-0400 Body height 170.2 cm Patricia Curry [email or web address] Work Phone: [facility] 05-02-2021 10:35-0400 Body height 170.2 cm Stvz 1 [facility] 05-02-2021 10:35-0400 Body mass index (BMI) [Ratio] 44.95 kg/m2 [facility] 1 [facility] 05-02-2021 10:35-0400 Body temperature 97.2 [degF] [facility] 1 [facility] 05-02-2021 10:35-0400 Body weight 130.18 kg Stv[facility] 1 [facility] 05-02-2021 10:35-0400 Diastolic blood pressure 85 mm[Hg] [facility] 1 [facility] 05-02-2021 10:35-0400 Heart rate 66 /min [facility] 1 [facility] 05-02-2021 10:35-0400 Respiratory rate 18 /min St[facility] 1 [facility] 05-02-2021 10:35-0400 SaO2% (BldA) [Mass fraction] 99 % [facility] 1 [facility] 05-02-2021 10:35-0400 Systolic blood pressure 122 mm[Hg] [facility] 1 [facility] 12-04-2020 17:00-0400 Body height 170.18 cm Ale Ginty Other [facility] Other 12-04-2020 17:00-0400 Body mass index (BMI) [Ratio] 43.85 kg/m2 Ale Ginty Other [facility] Other 12-04-2020 17:00-0400 Body temperature 97.4 [degF] Ale Ginty Other [facility] Other 12-04-2020 17:00-0400 Body weight 127.01 kg Ale Ginty Other [facility] Other 12-04-2020 17:00-0400 SaO2% (BldA) [Mass fraction] 99 % Ale Ginty Other [facility] Other Encounters Encounter Date Encounter Type Care Provider Facility Start: 02-07-2023 End: 02-07-2023 ambulatory [facility] Start: 02-07-2023 End: 02-07-2023 Office consultation new/estab patient 60 min Tatiana Yap MD Work Phone: [facility] [place] Comment on above: Hypertension affecti ng in second trimester (Primary Dx); 16 weeks gestation of ; Dichorionic diamniotic twin in second trimester; H/O gastric sleeve Start: 02-05-2023 End: 02-05-2023 ambulatory NIGEL HOPE Not Available Start: 02-05-2023 Chart abstracting Tatiana Yap MD Work Phone: [facility] Start: 02-04-2023 End: 02-04-2023 ambulatory MARGOT Sudheer YAW Not Available Start: 01-15-2023 End: 01-15-2023 ambulatory NIGEL HOPE Not Available Start: 01-07-2023 End: 01-07-2023 ambulatory MARGOT Sudheer GUPTAE Not Available Start: 12-20-2022 End: 12-21-2022 ambulatory NIGEL HOPE Not Available Start: 10-12-2022 End: 10-12-2022 ambulatory Lilia Daugherty Other [facility] Other Start: 10-12-2022 Office outpatient vi sit 15 minutes Lilia Daugherty [facility] Start: 09-11-2022 End: 09-11-2022 ambulatory PATRICIA Alka [facility] Start: 02-10-2022 End: 02-10-2022 ambulatory Ale Shields Other [facility] Other Start: 02-10-2022 Telephone encounter Ale Shields [facility] [address] Start: 02-08-2022 End: 02-08-2022 ambulatory Ale Shields Facility:[facility] Start: 02-08-2022 End: 02-08-2022 ambulatory LAURA Shields Work Phone: [facility] Work Phone: Start: 02-08-2022 End: 02-08-2022 Departed Referred LAURA Shields Work Phone: [facility] [place] Work Phone: Start: 01-08-2022 End: 01-09-[address] JAMEEL BURGOS Facility:[facility] Start: 12-31-2021 End: 01-01-[address] JAMEEL BURGOS Facility:[facility] Start: 11-28-2021 End: 11-28-2021 ambulatory Giuliana Provider Facility:[facility] Start: 11-28-2021 End: 11-29-[address] JAMEEL [...] 05-14-2021 End: 05-19-2021 ambulatory CYN OKEEFE [facility] Start: 05-02-2021 End: 05-06-2021 Subsequent hospital visit by physician Dwight Pat Rm 1 [facility] Pre-Admit Testing Start: 12-04-2020 End: 12-09-2020 ambulatory CYN OKEEFE [facility] Start: 12-04-2020 Office outpatient vi sit 15 minutes Ale Kimberly [facility] Start: 10-20-2020 End: 10-20-2020 Subsequent hospital visit by physician Patricia Curry DO Work Phone: [facility] [place] Start: 09-06-2020 End: 09-07-2020 ambulatory IKE ANGEL [facility] Start: 09-06-2020 End: 09-06-2020 Subsequent hospital visit by physician Henrietta Sleep Rm 1 [facility] Comment on above: LYNN (obstructive sle ep apnea) Start: 05-28-2017 End: 05-29-2017 Ambulatory Neo Anderson Facility:[id number] Procedures Date Procedure Procedure Detail Performing [...] metabolic pane l calcium total Patricia Curry [email or web address] Work Phone: Start: 05-16-2021 End: 05-16-2021 Laps gstrc rstrictiv px longitudinal gastrectomy Patricia Curry DO Work Phone: Start: 05-16-2021 Glucose blood reagen t strip Patricia Curry DO Work Phone: Start: 05-16-2021 Urine test visual color cmprsn meths Patricia Curry [employer] Work Phone: Start: 05-02-2021 Assay of nicotine Sim Curry [employer] Work Phone: Start: 05-02-2021 Basic metabolic pane l calcium total Patricia Curry DO Work Phone: Start: 05-02-2021 Radiologic exam ches t 2 views Patricia Curry DO Work Phone: Start: 05-02-2021 Ecg routine ecg w/le ast 12 lds i&r only Patricia Curry [email or web address] Work Phone: Start: 06-14-2020 Microscopic observat ion [Identifier] in Cervix by Cyto stain Tatiana Yap MD Work Phone: Plan of Treatment Date Care Activity Detail Author Start: 02-08-2024 Adult BMI Screening Adult BMI Screen ing [facility] Start: 02-08-2024 Tobacco Screening Tobacco Screening [facility] Start: 01-04-2024 Adult BMI Screening Adult BMI Screen ing [facility] Start: 01-04-2024 Tobacco Screening Tobacco Screening [facility] Start: 08-11-2023 DTaP,Tdap and Td Vaccines (7 - Td or Tdap) DTaP,Tdap and Td Vaccines (7 - Td or Tdap) [facility] Start: 08-11-2023 DTaP/Tdap/Td vaccine (7 - Td or Tdap) DTaP/Tdap/Td vaccine (7 - Td or Tdap) [facility] Start: 06-15-2023 Screening for malign ant neoplasm of cervix Pap Smear [facility] Start: 03-05-2023 End: 03-05-2023 Patient encounter procedure 03/05/2023 11:30 AM EST Office Visit Maternal- Medicine at [facility] [address] [place] [phone] Bentley Sanchez MD [address], [address] [place] [address] [facility] at [facility] Start: 03-05-2023 End: 03-05-2023 Patient encounter procedure 03/05/2023 9:30 AM EST Appointment [facility] [address] [place] [phone] [facility] Start: 02-07-2023 End: 02-07-2023 Patient encounter procedure [facility] Start: 10-11-2022 Influenza vaccination Influenza Vacc ine [facility] Start: 09-19-2022 Adult BMI Follow Up Plan Adult BMI Follow Up Plan [facility] Start: 02-08-2022 Bacteria identified in Urine by Culture Urine Culture [facility] Start: 01-08-2022 Hemoglobin A1c measurement A1C test (Diabetic or Prediabetic) [facility] Start: 10-11-2021 Influenza vaccination Flu vacc ine (Season Ended) [facility] Start: 07-14-2021 Hemoglobin A1c measurement A1C test (Diabetic or Prediabetic) [facility] Work Phone: Start: 06-18-2021 End: 06-18-2021 Patient encounter procedure 06/18/2021 Office Visit BariatricDeann Roca, ENROBING MACHINE OPERATOR - [employer] [address] [place] [address] [facility] [place] Start: 05-24-2021 End: 05-24-2021 Patient encounter procedure 05/24/2021 Office Visit Patricia Islas DO [address] [place] [address] [facility] Invasive Bariatric Surg Start: 05-16-2021 End: 05-16-2021 Admission to same day surgery center 05/16/2021 Surgery IP Unit Patricia Curry DO [address] [place] [address] XI ROBOTIC LAPAROSCOPIC GASTRECTOMY SLEEVE , LIVER BIOPSY, EGD- GI SCHEDULED [facility] Comment on above: XI ROBOTIC LAPAROSCO PIC GASTRECTOMY SLEEVE , LIVER BIOPSY, EGD- GI SCHEDULED Start: 05-16-2021 End: 05-16-2021 Laps gstrc rstrictiv px longitudinal gastrectomy GASTRECTOMY SLEEVE LAPAROSCOPIC ROBOTIC MORBID OBESITY, OBSTRUCTIVE SLEEP APNEA, GERD 05/16/2021 7:10 AM EDT [facility] [place] Start: 05-16-2021 Subsequent hospital visit by physician 05/16/2021 Hospital Encounter IP Unit Patricia Curry DO [address] [place] [address] [facility] Start: 05-13-2021 End: 05-13-2021 Patient encounter procedure 05/13/2021 Appointment Pre-Admission Testing [facility] PRE ADMIT Start: 05-10-2021 End: 05-10-2021 Patient encounter procedure 05/10/2021 Office Visit Patricia Islas DO [address] [place] [id number] [facility] Start: 11-22-2020 End: 11-22-2020 Nursing evaluation of patient and report 11/22/2020 Nurse Only Bariatrics [facility] Start: 11-06-2020 End: 11-06-[address] [facility] Start: 11-03-2020 End: 11-03-2020 Patient encounter procedure 11/03/2020 Office Visit Bariatrics Deann Navarro, ENROBING MACHINE OPERATOR - [employer] [address] [facility] [address] [place] [phone] [facility] [place] Start: 10-11-2020 Influenza vaccination Flu vaccine (# 1) [facility] Start: 09-28-2020 End: 09-28-2020 Patient encounter procedure 09/28/2020 Office Visit Bariatrics Deann Navarro, ENROBING MACHINE OPERATOR - [employer] [address] [facility] [address] [place] [phone] [facility] Start: 09-01-2015 Screening for malign ant neoplasm of cervix [facility] Start: 2009 HIV screening HIV screen [facility] Start: 2006 COVID-19 Vaccine (1) COVID-19 Vaccin e (1) [facility] Work Phone: Start: 2006 Depression Screen Depression Screen [facility] Start: 2006 Depression Screening Depression Scre [facility] Start: 2005 HPV vaccine (1 - 2-d ose series) HPV vaccine (1 - 2-dose series) [facility] Start: 2000 Pneumococcal 0-64 ye ars Vaccine (1 of 2 - PPSV23) Pneumococcal 0-64 years Vaccine (1 of 2 - PPSV23) [facility] Work Phone: Start: 09-01-1999 COVID-19 Vaccine (1) COVID-19 Vaccin e (1) [facility] Start: 09-01-1995 Varicella vaccine (1 of 2 - 2-dose childhood series) Varicella vaccine (1 of 2 - 2-dose childhood series) [facility] Start: 1994 Hepatitis C screening Hepatitis C [facility] End: 09-06-2020 Baseline Diagnostic Sleep Study Baseline Diagnostic Sleep Study Sleep Center Routine LYNN (obstructive sleep apnea) 1 Occurrences starting 09/06/2020 until 09/06/2020 [employer] Phone: Comment on above: 1 Occurrences starti ng 09/06/2020 until 09/06/2020 End: 02-08-2024 Calcium [Mass/volume] in Serum or Plasma Calcium Lab Routine 16 weeks gestation of H/O gastric sleeve 1 Occurrences starting 02/07/2023 until 02/08/2024 [facility] Comment on above: 1 Occurrences starti ng 02/07/2023 until 02/08/2024 End: 02-08-2024 CBC panel - Blood by Automated count CBC without diff Lab Routine Hypertension affecting in second trimester 16 weeks gestation of Dichorionic diamniotic twin in second trimester 1 Occurrences starting 02/07/2023 until 02/08/2024 [employer] Work Phone: Comment on above: 1 Occurrences starti ng 02/07/2023 until 02/08/2024 End: 02-08-2024 Comprehensive metabolic 2000 panel - Serum or Plasma Comprehensive metabolic panel Lab Routine Hypertension affecting in second trimester 16 weeks gestation of Dichorionic diamniotic twin in second trimester 1 Occurrences starting 02/07/2023 until 02/08/2024 [facility] Comment on above: 1 Occurrences starti ng 02/07/2023 until 02/08/2024 Continuous pulse oximetry Pulse oximetry, continuous Respiratory Care Routine Every 4hr until discontinued starting 05/16/2021 [facility] Phone: Comment on above: Every 4hr until disc ontinued starting 05/16/2021 End: 02-08-2024 Cyanocobalamin vitamin b-12 Vitamin B12 Lab Routine 16 weeks gestation of H/O gastric sleeve 1 Occurrences starting 02/07/2023 until 02/08/2024 [facility] Comment on above: 1 Occurrences starti ng 02/07/2023 until 02/08/2024 End: 02-08-2024 ECG 12 lead ECG 12 lead ECG Routine Hypertension affecting in second trimester 16 weeks gestation of Dichorionic diamniotic twin in second trimester 1 Occurrences starting 02/07/2023 until 02/08/2024 [facility] Comment on above: 1 Occurrences starti ng 02/07/2023 until 02/08/2024 End: 02-08-2024 Folate Folate Lab Routine 16 weeks gestation of H/O gastric sleeve 1 Occurrences starting 02/07/2023 until 02/08/2024 [facility] Comment on above: 1 Occurrences starti ng 02/07/2023 until 02/08/2024 End: 02-08-2024 Iron and TIBC Iron and TIBC Lab Routine 16 weeks gestation of H/O gastric sleeve 1 Occurrences starting 02/07/2023 until 02/08/2024 [facility] Comment on above: 1 Occurrences starti ng 02/07/2023 until 02/08/2024 End: 02-08-2024 LDH LDH Lab Routine Hypertension affecting in second trimester 16 weeks gestation of Dichorionic diamniotic twin in second trimester 1 Occurrences starting 02/07/2023 until 02/08/2024 [facility] Comment on above: 1 Occurrences starti ng 02/07/2023 until 02/08/2024 End: 02-08-2024 Natriuretic peptide B [Mass/volume] in Blood B-type natriuretic peptide Lab Routine Hypertension affecting in second trimester 16 weeks gestation of Dichorionic diamniotic twin in second trimester 1 Occurrences starting 02/07/2023 until 02/08/2024 [facility] Comment on above: 1 Occurrences starti ng 02/07/2023 until 02/08/2024 Oxygen therapy [[facility] Data Set] Initiate Oxygen Therapy Protocol Respiratory Care Routine As Needed until discontinued starting 05/16/2021 [facility] Phone: Comment on above: As Needed until disc ontinued starting 05/16/2021 End: 02-08-2024 Protein creat ratio Protein creat ratio Lab Routine Hypertension affecting in second trimester 16 weeks gestation of Dichorionic diamniotic twin in second trimester 1 Occurrences starting 02/07/2023 until 02/08/2024 [facility] Comment on above: 1 Occurrences starti ng 02/07/2023 until 02/08/2024 End: 02-08-2024 Protein, urine, 24 hour Protein, urine, 24 hour Lab Routine Hypertension affecting in second trimester 16 weeks gestation of Dichorionic diamniotic twin in second trimester 1 Occurrences starting 02/07/2023 until 02/08/2024 [facility] Comment on above: 1 Occurrences starti ng 02/07/2023 until 02/08/2024 Spirometry panel Incentive isiah metry Respiratory Care Routine Every 2hr while awake until discontinued starting 05/16/2021 [facility] Phone: Comment on above: Every 2hr while awak e until discontinued starting 05/16/2021 Surgical Pathology Surgical Path ology Lab Routine Release Upon Ordering for 1 Occurrences starting 05/16/2021 [facility] Phone: Comment on above: Release Upon Orderin g for 1 Occurrences starting 05/16/2021 End: 02-08-2024 Thiamin Vitamin B1, whole blood Thiamin Vitamin B1, whole blood Lab Routine 16 weeks gestation of H/O gastric sleeve 1 Occurrences starting 02/07/2023 until 02/08/2024 [facility] Comment on above: 1 Occurrences starti ng 02/07/2023 until 02/08/2024 End: 02-08-2024 Urate [Mass/volume] in Serum or Plasma Uric acid Lab Routine Hypertension affecting in second trimester 16 weeks gestation of Dichorionic diamniotic twin in second trimester 1 Occurrences starting 02/07/2023 until 02/08/2024 [facility] Comment on above: 1 Occurrences starti ng 02/07/2023 until 02/08/2024 End: 02-08-2024 Vitamin D 25 hydroxy Vitamin D 25 hydroxy Lab Routine 16 weeks gestation of H/O gastric sleeve 1 Occurrences starting 02/07/2023 until 02/08/2024 [facility] Comment on above: 1 Occurrences starti ng 02/07/2023 until 02/08/2024 Immunizations Immunization Date Immunization Notes Care Provider Jerry luther 11-12-2016 tuberculin skin test ; purified protein derivative solution, intradermal Tatiana Yap MD Work Phone: [facility] 08-10-2013 tetanus toxoid, redu yemi diphtheria toxoid, and acellular pertussis vaccine, adsorbed Tatiana Yap MD Work Phone: [facility] 10-03-1999 diphtheria, tetanus toxoids and acellular pertussis vaccine Tatiana Yap MD Work Phone: [facility] 10-03-1999 hepatitis B vaccine, pediatric or pediatric/adolescent dosage Tatiana Yap MD Work Phone: [facility] 10-03-1999 measles, mumps and rubella virus vaccine Tatiana Yap MD Work Phone: [facility] 10-03-1999 poliovirus vaccine, inactivated Tatiana Yap MD Work Phone: [facility] 01-14-1996 diphtheria, tetanus toxoids and acellular pertussis vaccine Tatiana Yap MD Work Phone: [facility] 01-14-1996 haemophilus influenz ae type b vaccine, conjugate unspecified formulation Tatiana Yap MD Work Phone: [facility] 01-14-1996 measles, mumps and rubella virus vaccine Tatiana Yap MD Work Phone: [facility] 05-21-1995 diphtheria, tetanus toxoids and acellular pertussis vaccine Tatiana Yap MD Work Phone: [facility] 05-21-1995 haemophilus influenz ae type b vaccine, conjugate unspecified formulation Tatiana Yap MD Work Phone: [facility] 05-21-1995 poliovirus vaccine, inactivated Tatiana Yap MD Work Phone: [facility] 02-21-1995 diphtheria, tetanus toxoids and acellular pertussis vaccine Tatiana Yap MD Work Phone: [facility] 02-21-1995 haemophilus influenz ae type b vaccine, conjugate unspecified formulation Tatiana Yap MD Work Phone: [facility] 02-21-1995 hepatitis B vaccine, pediatric or pediatric/adolescent dosage Tatiana Yap MD Work Phone: [facility] 02-21-1995 poliovirus vaccine, inactivated Tatiana Yap MD Work Phone: [facility] 1994 diphtheria, tetanus toxoids and acellular pertussis vaccine Tatiana Yap MD Work Phone: [facility] 1994 haemophilus influenz ae type b vaccine, conjugate unspecified formulation Tatiana Yap MD Work Phone: [facility] 1994 hepatitis B vaccine, pediatric or pediatric/adolescent dosage Tatiana Yap MD Work Phone: [facility] 1994 poliovirus vaccine, inactivated Tatiana Yap MD Work Phone: [facility] 1994 hepatitis B vaccine, pediatric or pediatric/adolescent dosage Tatiana Yap MD Work Phone: [facility] Payers Date Payer Category Payer Medicaid [id number] 2022 Medicaid [place] [id number] 2022-Present [address] [place] [address] [id number] 2022 Self-pay 2019 Unknown [id number] 1.2.840.211627.1.13.239.2. 7.3.521093.315 1994 Unknown [id number] 2.16.840.1.545001.3.579.2. 173 1994 Unknown [id number] 2.16.840.1.642883.3.579.2. 173 1994 Unknown [id number] 2.16.840.1.245687.3.579.2. 173 1994 Unknown [id number] 2.16.840.1.748958.3.579.2. 593 1994 Unknown [id number] 2.16.840.1.336269.3.579.2. 593 1994 Unknown [id number] 2.16.840.1.599469.3.579.2. 593 1994 Unknown [id number] 2.16.840.1.510631.3.579.2. 593 1994 Unknown [id number] 2.16.840.1.602751.3.579.2. 593 1994 Unknown [id number] 2.16.840.1.842313.3.579.2. 593 1994 Unknown [id number] 2.16.840.1.275243.3.579.2. 175 1994 Unknown [id number] 2.16.840.1.080477.3.579.2. 1259 1994 Unknown [id number] 2.16.840.1.159564.3.579.2. 1259 1994 Unknown [id number] 2.16.840.1.021701.3.579.2. 1259 1994 Unknown [id number] 2.16.840.1.781160.3.579.2. 1259 1994 Unknown [id number] 2.16.840.1.190339.3.579.2. 1259 1994 Unknown [id number] 2.16.840.1.675608.3.579.2. 1286 1994 Unknown [id number] 2.16.840.1.675148.3.579.2. 1286 1959 Private Health Insurance [id number] 1.2.840.984381.1.13.239.2. 7.3.878920.315 Private Health Insurance [facility] [place] [id number] Unknown [id number] 2.16.840.1.587314.3.579.2. 531 Social History Date Type Detail Facility Start: 09-01-2020 End: 09-28-2020 Tobacco smoking status [facility] Current every day smoker [facility] Phone: Start: 03-20-2020 End: 09-01-2020 Cigarettes smoked current (pack per day) - Reported [facility] Start: 09-01-2020 End: 01-19-2021 Tobacco use and exposure Never used [facility] Phone: Start: 09-01-2020 End: 09-28-2020 Alcohol intake Current drinker of alcohol (finding) [facility] Phone: Start: 12-23-2019 Alcohol Comment weekly [facility] Phone: Start: 1995 Sex Assigned At Not on file M [facility] Phone: Start: 04-22-2021 End: 05-16-2021 Exposure to SARS-CoV-2 (event) Not sure [facility] Exposure to SARS-CoV -2 (event) Yes [facility] Start: 01-19-2021 End: 02-05-2023 Tobacco smoking status [facility] Ex-smoker [facility] End: 11-19-2020 History of tobacco use Current smoker [facility] Phone: Start: 05-02-2021 End: 02-07-2023 Alcohol intake Ex-drinker (finding) [facility] Phone: Start: 08-17-2018 End: 03-20-2020 [facility] Start: 1995 Sex Assigned At Female F [facility] End: 02-11-2020 [facility] of tobacco [facility] History of tobacco use Tobacco U se Types Packs/Day Years Used Date Smoking Tobacco: Former Cigarettes Quit: 2020 Vaping/E-cigarettes Smokeless Tobacco: Former Quit: 11/06/2020 [facility] Start: 02-05-2023 Tobacco use and exposure Forme r smokeless tobacco [facility] End: 11-06-2020 History of tobacco use User of smokeless tobacco [facility] Frequency of Communication with Friends and Family More than three times a week [facility] Start: 08-17-2018 Education 12 [facility] Start: 05-18-2022 Alcohol Comment social, every other weekend [facility] Start: 10-31-2022 [facility] Clinical Notes 12-04-2020 to 02-07-2023 Sangita Thomas [...] Yes Have you been seen here at [facility] in a previous ? No Recent ER visits or hospitalizations? No Bring blood sugar log or meter with you today? (Please bring them with you for every visit at [facility]) N/A Traveled outside the country in the [...] TESTS AND ULTRASOUND REPORTS: Referral records and [facility] chart were reviewed Pertinent Ultrasound findings [...] operators who are performing tests using either [employer] or [employer]d2[employer] systems and is limited to laboratories that [...] repeat. Fact Sheet for Healthcare Providers: https://www.f da.gov/media/116839/download Fact Sheet for Patients: https://www.fda.gov/media/434739/d ownload HABITS: Patient activity no restrictions, diet [...] a but with an anticipation of excellent chcf outcomes. In regards to the spontaneous processes, [...] previously recommended threshold of 160/110. Reference: PMID: 59482338, 2021. Blood pressures do increase as progresses [...] preeclampsia prevention as is recommended by the [place] College of Gynecology Committee Opinion No. 743. [...] aspirin vs 10.3% no aspirin, p=0.45) (PMBID: [id number]). Given well-established benefits baby aspirin for the prevention of preeclampsia, I recommend initiating baby aspirin even in the setting of history of Joe-en-Y surgery. Micronutrient Dosing Recommendations: Calcium: recommend 1000-1200mg daily; if deficient, recommend 1800-99788 mg PO daily in divided doses Vitamin [...] sooner if clinically indicated Follow up in [facility] in 4 weeks for anatomy and clinic follow-up DISPOSITION: At this point the patient is in complete care of her veneer patcher. Patient does have ultrasound and office visit scheduled with us. Thank you for allowing me to participate in the care of Fina Bosch Junaidwhitney. If there any questions please do not hesitate to contact us. Total time spent was 43 minutes: Preparing to see the patient (e.g., review of tests) Obtaining and/or reviewing separately obtained history Performing a medically appropriate examination and/or evaluation Counseling and educating the patient/family/caregiver Ordering medications, tests, or procedures Referring and communicating with other health manager managed care (not separately reported) Documenting clinical information in the electronic or other health record Tatiana Yap MD Maternal- Medicine [facility] [address] [facility] [address] [place] [address] [facility], the CDC, and other organizations representing maternal and public health professionals recommend that , , and lactating people and those considering receive the COVID-19 vaccination. Vaccination is the best method to reduce maternal and complications of SARS-CoV-2 infection. This document was created with [employer] technology. Though I make every effort to review the dictation as it is transcribed, on occasion the spoken word can be misinterpreted by the technology leading to inappropriate words, phrases, or sentences. This note is addressed to the requesting provider as a consultation for clinical guidance. Specific medical abbreviations are occasionally used and those are generally approved by the [place]?Board of?Obstetrics and?Gynecology?as well as?Maddison hodgson abbreviations. The above plan of care was based solely on the diagnoses for which a consultation was requested. ?More frequent testing may be indicated based on her other medical/obstetrical conditions. The management of other or medical conditions is beyond the scope of requested consultation and will continue to be followed by the primary veneer patcher or primary care provider. Note to patient: [...] of the practitioner. documented in this encounter [facility] 10-12-2022 Evaluation note Encounter Date Diagnosis Assessment [...] take Sudafed and/or Mucinex for congestion. Take tbns-pzi-upjcm er Robitussin or Delsym for cough. Follow-up with your family physician if no improvement in 2 to 3 days. Off work tomorrow. Oct, Cough (ICD-10 - R05.9) Oct, Bronchitis (ICD-10 - J40) Acute bronchitis material was printed [facility] Other 10-19-2022 NotePatient Education Materials [id number] History of Present illness Narrative* Payal Richardson [...] and patient voices understanding [facility] Phone: [phone]) 438-646904-07-2022 Hospital Discharge instructions* Instructions* Hannah Zavaleta RN - 05/17/2021 Discharge Instructions for Bariatric Surgery You had a Laparoscopic Sleeve Gastrectomy (79377) surgery to treat obesity. Recovery from this [...] scheduled appointment, please call the office at [phone]. Call Your Doctor If Any of the [...] sent through Care Everywhere. * Enoxaparin (Lovenox) (Kittitian) * Video: How to Give Yourself an Anticoagulant (Blood Thinner) Shot (Kittitian) documented in this [facility] Phone: [phone] 297-791503-23-2022 Hospital Discharge instructions* Instructions* Kendal Wilhelm APRN [...] Day of Surgery/Procedure As a patient at [facility] you can expect quality medical and nursing care that is centered on your individual needs. Our goal is to make your surgical experience as comfortableas possible Directions to the Surgery Center The surgery Center at [facility] is located in the Emergency Room parking lot on [facility] or there is additional parking across the street. The address is [address] [place] [address]. Please check in at the Surgery Center [...] on the day of surgery please contact [phone] or [phone] If you have any other questions regarding your procedure/surgery please call your surgeon's office. documented in this [facility] Phone: [phone]) 219-491103-23-2022 History of Present illness Narrative* Eloise Chi [...] syndrome) Under care of team 05/02/2021 pcp-Dr MelgozaPdqaqz-ilhlagf-ckns visit april 2021 Patient was evaluated in PAT & anesthesia guidelines were applied. NPO guidelines, medication instructions and scheduled arrival time were reviewed with patient. Anesthesia contacted: no Medical or cardiac clearance ordered: no, medical clearance obtained. LAURA Garcia CNP 05/02/21 11:53 AM documented [facility] this [facility]: [phone]) 628-997110-25-2021 Evaluation note* Encounter Date Diagnosis Assessment Notes Treatment Notes Treatment Clinical Notes Nov, Contact with and (suspected) exposure to other viral communicable diseases (ICD-10 - Z20.828) Nov, Viral URI with cough (ICD-10 - J06.9) No COVID test completed at this time. Advised patient that will tx as viral URI. Supportive care as directed, increase fluids and rest, Tylenol/Motrin as directed, rx of [place] and Flonase as directed, cool mist humidifier, [...] Patient care instructions given in writting by [facility] Care At Home document [facility] Other Evaluation note* Diagnosis LYNN (obstructive sleep apnea) Obstructive sleep apnea (adult) (pediatric) documented in this encounter [facility] Phone: evaluation note* Diagnosis S/P laparoscopic sleeve gastrectomy- Primary Post-op pain Other acute postoperative pain documented in this encounter [facility] Phone: evaluation noteNo assessment information available [facility] Work Phone: Evaluation noteNo InformationNort Horizon [employer] Other Evaluation note* Diagnosis Hypertension affecting in second trimester- Primary 16 weeks gestation of Dichorionic diamniotic twin in second trimester H/O gastric sleeve documented in this encounter [facility] general Narrative - Reported* Type Description Date Medical History METABOLIC SYNDROME Medical History SYNCOPE Medical History anxiety Surgical History WISDOM TEETH Surgical History TONSILECTOMY Surgical History ENDOSCOPY AND COLONSCOPY Surgical History C section Hospitalization History see above [facility] Other Hisozhv general Narrative - Reported* Type Description Date Medical History METABOLIC SYNDROME Medical History SYNCOPE Medical History anxiety Surgical History WISDOM TEETH Surgical History TONSILECTOMY Surgical History ENDOSCOPY AND COLONSCOPY Surgical History C section Surgical History gastric sleeve Hospitalization History see above [facility] Other Hishbia general Narrative - Reported* Type Description Date Medical History METABOLIC SYNDROME Medical History SYNCOPE Medical History anxiety Surgical History WISDOM TEETH Surgical History TONSILECTOMY Surgical History ENDOSCOPY AND COLONSCOPY Surgical History C section Surgical History gastric sleeve Surgical History cholcystectomy 09/10/2022 Hospitalization History see above [facility] Other InstructionsNot on filedocumented in this encounter [facility] SystemInstructionsNot on filedocumented in this encounter [facility] SystemReason for visit Narrative* Auth/Cert Specialty Diagnoses / Procedures Referred By Contac t Referred To Contact Diagnoses Morbid obesity (HCC) Obstructive sleep apnea GERD (gastroesophageal reflux disease) MORBID OBESITY, OBSTRUCTIVE SLEEP APNEA, GERD Procedures NM LAP, JAY RESTRICT PROC, LONGITUDINAL GASTRECTOMY XI ROBOTIC LAPAROSCOPIC GASTRECTOMY SLEEVE , LIVER BIOPSY, EGD- GI SCHEDULED Patricia Curry, DO [address] [address] [facility] [address] [place] [address] Referral ID Status Reason Start Date Expiration Date Visits Re quested Visits Authorized [id number] 1 1 [facility] Phone: Summary Purpose Family History No Family [...] Diagnostic Sleep Study Ike Ortiz MD [address] [address] Specialty Diagnoses / Procedures Referred By Contac t Referred To Contact Diagnoses Hypertension affecting in second trimester 16 weeks gestation of Dichorionic diamniotic twin in second trimester Procedures ECG 12 lead Tatiana Yap MD [address] [place] [address] Referral ID Status Reason Start Date Expiration Date V isits Requested Visits Authorized [id number] Pending Review 02/07/2023 02/07/2024 1 1 Chief Complaint and Reason for Visit Chief Complaint Dysuria Additional Source Comments INFORMATION SOURCE (unrecogn ized section and content) DATE CREATED AUTHOR 07/31/2017 [facility] DATE CREATED AUTHOR AUTHOR'S ORGANIZ ATION 05/21/2021 [facility] DATE CREATED AUTHOR AUTHOR'S ORGANIZ ATION 12/03/2021 [facility] DATE CREATED AUTHOR AUTHOR'S ORGANIZ ATION 01/12/2022 [facility] DATE CREATED AUTHOR AUTHOR'S ORGANIZ ATION 02/11/2022 [facility] DATE CREATED AUTHOR AUTHOR'S ORGANIZ ATION 09/13/2022 [facility] DATE CREATED AUTHOR AUTHOR'S ORGANIZ ATION 02/06/2023 [facility] EP[facility] DATE CREATED AUTHOR AUTHOR'S ORGANIZ ATION 02/09/2023 [facility] Reason for Visit (unrecogniz ed section and content) Status Reason Specialty Diagnoses / Procedures Referred By Contact Referred To Contact Closed Sleep Center Diagnoses LYNN (obstructive sleep apnea) Procedures Baseline Diagnostic Sleep Study Ike Ortiz MD [address] [address] Status Reason Specialty Diagnoses / Procedures Referre d By Contact Referred To Contact Diagnoses K21.9 GERD E66.9 OBESITY Procedures NM EGD TRANSORAL BIOPSY SINGLE/MULTIPLE EGD BIOPSY Patricia Curry, DO [address] [facility] [address] [place] [address] [facility] Reason Comments twin HX C/S HX gastric sleeve HX PTD Care Teams (unrecognized sec tion and content) Hand Tapper Relationship Specialty Start Date End Date Stephane Martin MD [address] [place] [address] PCP - General 05/17/20 Hand Tapper Relationship Specialty Start Date End Date Stephane Martin MD [address] [place] [address] PCP - General 05/17/20 Team Status: Inactive Member Role Status Dates Ale Shields APRN Attending Provider Active Hand Tapper Relationship Specialty Start Date End Date Margot Toure DO [address] [place] [address] PCP - General [facility] Medicine 01/03/23 Hand Tapper Relationship Specialty Start Date End Date Margot Toure DO [address] [place] [address] PCP - General Family Medicine 01/03/23 Ordered [...] (Given - Provider: Sharmin Sam APRN - SOCIAL DIRECTOR) ceFAZolin (ANCEF) 3000 mg in sterile water [...] to back table, 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 [employer] provides no warranty or guarantee of the accuracy or completeness of information in this document.
[2023-02-12 12:13] LABS: Basophils Percent Auto 0.3 % (0.2-2.0); Eosinophils Absolute Auto 0.1 10^3/uL (0.0-0.7); Eosinophils Percent Auto 0.7 % (0.9-7.0); Hematocrit 33.7 % (36.0-48.0); Hemoglobin 10.9 g/dL (12.0-16.0); Immature Granulocytes Abs Auto 0.06 10^3/uL (0.00-0.03); Immature Granulocytes Pct Auto 0.6 % (0.0-0.5); Lymphocytes Absolute Auto 1.8 10^3/uL (1.2-3.8); Lymphocytes Percent Auto 19.1 % (20.5-60.0); Mean Corpuscular HGB Conc 32.3 g/dL (29.9-35.2); Mean Corpuscular Volume 89.6 fL (81.0-99.0); Mean Platelet Volume 9.7 fL (9.5-13.5); Monocytes Absolute Auto 0.7 10^3/uL (0.3-0.8); Monocytes Percent Auto 7.7 % (1.7-12.0); Neutrophils Absolute Auto 6.8 10^3/uL (1.4-6.5); Neutrophils Percent Auto 71.6 % (43.0-75.0); Platelet Count 268 10^3/uL (150-450); Red Blood Count 3.76 10^6/uL (4.20-5.40); Red Cell Distribution Width 13.4 % (11.0-15.0); White Blood Count 9.5 10^3/uL (4.0-11.0)
[2023-02-12 12:53] LABS: Creatinine Urine Random 101.59 mg/dL (20.00-300.00); Percent Iron Saturation 20.9 %; Total Protein Urine Random 9.7 mg/dL (<=11.9)
[2023-02-12 13:03] LABS: Alanine Aminotransferase 24 U/L (14-59); Albumin Globulin Ratio 0.6; Albumin Level 2.5 g/dL (3.4-5.0); Alkaline Phosphatase 51 U/L (46-116); Anion Gap 9.4; Aspartate Amino Transferase 16 U/L (15-37); BUN Creatinine Ratio 14.5; Bilirubin Total 0.2 mg/dL (0.2-1.0); Calcium 8.8 mg/dL (8.5-10.1); Carbon Dioxide 27.2 mmol/L (21.0-32.0); Chloride 104 mmol/L (98-107); Estimated GFR (African America >60 (>=60); Estimated GFR (Non-African Ame >60 (>=60); Globulin 3.9 g/dL; Glucose 68 mg/dL (74-106); Lactate Dehydrogenase 158 U/L (81-234); Potassium 3.6 mmol/L (3.5-5.1); Sodium 137 mmol/L (136-145); Total Protein 6.4 g/dL (6.4-8.2); Uric Acid 3.1 mg/dL (2.6-6.0)
[2023-02-16 18:09] LABS: Vitamin B1 (Thiamine), Blood 112.1 nmol/L (66.5-200.0)
== END 2023-02-12 11:32 | disposition home or self-care (01) ==
LOC: CARD 11:33
DX: Z36.1 Encounter for antenatal screening for raised alphafetoprotein level (principal); O16.2 Unspecified maternal hypertension, second trimester; Z3A.16 16 weeks gestation of pregnancy; O30.042 Twin pregnancy, dichorionic/diamniotic, second trimester; Z90.3 Acquired absence of stomach [part of]
CPT/HCPCS: 36415; 80053; 82105; 82306; 82570; 82607; 82746; 83540; 83550; 83615; 83880; 84156; 84425; 84550; 85025; 93005

== ENCOUNTER 2023-02-18 | Outpatient (REF) | payer MEDICAID, SELFPAY ==
--- OUTSIDE RECORDS SUMMARY | 2023-02-19 09:16 | XMS_ITS | CCD ---
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 Name Role Phone Neo Anderson Unavailable Unavailable Neo Anderson Unavailable Unavailable Jose Maria Santoyo MD, [facility] Primary Care Provider DOC OKEEFE Referring Unavailable JOSE MARIA SANTOYO STEPHANE Primary Care Unavailabl e DOC OKEEFE E Referring Unavailable [facility] Primary Care Unavailabl e IKE ORTIZ Referring Unavailable [facility], [facility] Primary Care Unavailabl e Kimberly, Ale [...] Primary Care Unavailable LAURA Shields Attending Provider Ale Shields Unavailable PATRICIA CURRY Attending Unavailable PATRICIA CURRY Admitting Unavailable YAW, MARGOT Primary Care Unavailable WillowLilia Unavailable Margot Toure DO Primary Care Provider [phone] NIGEL ADAMES Attending Unavailable YAW MARGOT G [...] Translations: [IBUPROFEN] Drug Allergy 09-19-2021 [facility] Medications Current Medications Medication Drug [...] 30 mg oral tablet (1 source) Uncompetitive A-drautp-S-aspartate Receptor Antagonist, Sigma-1 Agonist Start: 2020 take 1 tablet by mouth every eight hours Bunn DMT 30-30 MG 1 tablet Orally every [...] Iron (2 sources) Iron Active lactobacillus acidophilus [id number] unt / pectin 100 mg oral tablet [...] extended release oral tablet (2 sources) Uncompetitive W-mnyldz-B-asparta te Receptor Antagonist, Sigma-1 Agonist Start: 01-14-2022 [...] 2022 Radiology Study observation (narrative) [facility] HIV 1&2 AB/AG Screen (P24 AG )on 12-20-2022 HIV 1&2 AB/AG Non-Reactive [facility] Hepatitis B surface antigeno n 12-20-2022 Hepatitis B Surface Antigen Negative [facility] No Panel Informationon 12-20 [facility] Rubella IGG immune statuson 12-20-2022 Rubella immune IgG 1.96 [facility] Syphilis Total(Unknown Syphi lis Status)on 12-20-2022 Syphilis Non-Reactive [facility] Ultrasound - Officeon 2022 SEE SCANNED REPORt MANUAL LY TRANSCRIBED RESULTS [facility] COVID + FLU Quick Testingon 10-12-2022 SARS-CoV-2 (COVID-19) RNA BECCA+probe Ql (Unsp spec) negtaive OKKAM [facility] [email or web address] Other COVID + FLU Quick Testing Negative [employer] Other Basic Metabolic Profon 09-11 Anion gap [Moles/Vol] 9 mmol/L Normal 9-17 [facility] Comment on above: Performed By: #### B MP, CBC, PT #### [facility] [address] [place] [address] Acid Conditioning Worker: Anthony Aguilar MD Calcium [Mass/Vol] 8.8 mg/dL Normal 8.6-10.4 [facility] Comment on above: Performed By: #### B MP, CBC, PT #### [facility] [address] [place] [address] Acid Conditioning Worker: Anthony Aguilar MD Chloride [Moles/Vol] 106 mmol/L Normal 98-107 [facility] Comment on above: Performed By: #### B MP, CBC, PT #### [facility] [address] [place] [address] Acid Conditioning Worker: Anthony Aguilar MD CO2 [Moles/Vol] 23 mmol/L Normal 20-31 [facility] Comment on above: Performed By: #### B MP, CBC, PT #### [facility] [address] [place] [address] Acid Conditioning Worker: Anthony Aguilar MD Creatinine [Mass/Vol] 0.7 mg/dL Normal 0.5-0.9 [facility] Comment on above: Performed By: #### B MP, CBC, PT #### [address] [address] Acid Conditioning Worker: Anthony Aguilar MD GFR/1.73 sq M.predicted among non-blacks MDRD (S/P/Bld) [Vol rate/Area] mL/min/{1.73_m2} Normal >60 [facility] Comment on above: Result Comment: These [...] #### B MP, CBC, PT #### [facility] [address] [place] [address] Acid Conditioning Worker: Anthony Aguilar MD Glucose [Mass/Vol] 79 mg/dL Normal 70-99 [facility] Comment on above: Performed By: #### B MP, CBC, PT #### [facility] [address] [place] [address] Acid Conditioning Worker: Anthony Aguilar MD Potassium [Moles/Vol] 4.1 mmol/L Normal 3.7-5.3 [facility] Comment on above: Performed By: #### B MP, CBC, PT #### [facility] [address] [place] [address] Acid Conditioning Worker: Anthony Aguilar MD Sodium [Moles/Vol] 138 mmol/L Normal 135-144 [facility] Comment on above: Performed By: #### B MP, CBC, PT #### [facility] [address] [place] [address] Acid Conditioning Worker: Anthony Aguilar MD Urea nitrogen [Mass/Vol] 11 mg/dL Normal 6-20 [facility] Comment on above: Performed By: #### B FIFI, CBC, PT #### [facility] [address] [place] [address] Acid Conditioning Worker: Anthony Aguilar MD CBCon 09-11-2022 Erythrocyte distribution width (RBC) [Ratio] 13.2 % Normal 11.8-14.4 [facility] Comment on above: Performed By: #### B FIFI, CBC, PT #### [facility] [address] [place] [address] Acid Conditioning Worker: Anthony Aguilar MD Hematocrit (Bld) [Volume fraction] 41.6 % Normal 36.3-47.1 [facility] Comment on above: Performed By: #### B MP, CBC, PT #### [facility] [address] [place] [address] Acid Conditioning Worker: Anthony Aguilar MD Hemoglobin (Bld) [Mass/Vol] 13.3 g/dL Normal 11.9-15.1 [facility] Comment on above: Performed By: #### B MP, CBC, PT #### [address] [address] Acid Conditioning Worker: Anthony Aguilar MD MCH (RBC) [Entitic mass] 28.3 pg Normal 25.2-33.5 [facility] Comment on above: Performed By: #### B MP, CBC, PT #### [address] [address] Acid Conditioning Worker: Anthony Aguilar MD MCHC (RBC) [Mass/Vol] 32.0 g/dL Normal 28.4-34.8 [facility] Comment on above: Performed By: #### B MP, CBC, PT #### [address] [address] Acid Conditioning Worker: Anthony Aguilar MD MCV (RBC) [Entitic vol] 88.5 fL Normal 82.6-102.9 [facility] Comment on above: Performed By: #### B MP, CBC, PT #### [address] [address] Acid Conditioning Worker: Anthony Aguilar MD NRBC Automated 0.0 per 100 WBC Normal 0.0 [facility] Comment on above: Performed By: #### B MP, CBC, PT #### [address] [address] Acid Conditioning Worker: Anthony Aguilar MD Platelet mean volume (Bld) [Entitic vol] 9.7 fL Normal 8.1-13.5 [facility] Comment on above: Performed By: #### B MP, CBC, PT #### [facility] [address] [place] [address] Acid Conditioning Worker: Anthony Aguilar MD Platelets (Bld) [#/Vol] 276 10*3/uL Normal 138-453 [facility] Comment on above: Performed By: #### B MP, CBC, PT #### [address] [address] Acid Conditioning Worker: Anthony Aguilar MD RBC (Bld) [#/Vol] 4.70 10*6/uL Normal 3.95-5.11 [facility] Comment on above: Performed By: #### B MP, CBC, PT #### [address] [address] Acid Conditioning Worker: Anthony Aguilar MD WBC (Bld) [#/Vol] 7.4 10*3/uL Normal 3.5-11.3 [facility] Comment on above: Performed By: #### B MP, CBC, PT #### [facility] [address] [place] [address] Acid Conditioning Worker: Anthony Aguilar MD PTon 09-11-2022 INR Coag (PPP) [Relative time] 1.0 {INR} Normal [facility] Comment on above: Result Comment: Therapeutic Range: Moderate Anticoagulant Intensity: INR = 2.0-3.0 High Anticoagulant Intensity: INR = 2.5-3.5 Performed By: #### B MP, CBC, PT #### [facility] [address] [place] [address] Acid Conditioning Worker: Anthnoy Aguilar MD PT Coag (PPP) [Time] 12.9 s Normal 11.7-14.9 [facility] Comment on above: Performed By: #### B MP, CBC, PT #### [address] [address] Acid Conditioning Worker: Anthony Aguilar MD Surgical Pathologyon 023 Surgical Pathology (NOTE) Path Number: [id number] -- Diagnosis -- GALLBLADDER, CHOLECYSTECTOMY: -CHRONIC CHOLECYSTITIS [...] lesions or periductal lymph nodes are identified. Matrix Bath Operator sections 1c. tm Microscopic Description Microscopic examination performed. Processing Lab: [address] [address] Interpretation Performed at [address] [address] SURGICAL PATHOLOGY CONSULTATION Patient Name: FINA VELÁSQUEZ [facility] Rec: [id number] [facility] [employer] [facility] ANATOMIC PATHOLOGY [address] [place] [phone] [facility] Urine Cultureon 02-08-2022 Bacteria identified Cx Nom (U) Reason for Exam Dysuria Urine ORGANISM: Escherichia coli (O:ESCCOL) [facility] Count >100,000 Aerobic LISA Charge (NMIC56) ---- [...] RESISTANT TO ALL B-LACTAM DRUGS. PERFORMED BY: [place] [address] PATHOLOGIST OVEN LABORER SAMIRA WEN M.D. [facility] Comment on above: Performed By: #### C UU #### [address] VC CONSULT FOLLOWUPon 2021 VC CONSULT FOLLOWUP Patient: FINA VELÁSQUEZ Exam Date: 01/08/2022 : 1995 Gender:F Ordering : DR JAMEEL BURGOS M.D. Admission #: [id number] Family : Order #: [id number] CLICK HERE TO VIEW EXAM RADIOLOGY REPORT [...] Hinton M.D. on 01/08/2022 at 10:10 Normal [facility] VC EXT VENOUS RT LIMITEDon 1 03-10-2021 VC EXT VENOUS RT LIMITED Patient: FINA VELÁSQUEZ Exam Date: 01/08/2022 : 1995 Gender:F Ordering : DR JAMEEL BURGOS M.D. Admission #: [id number] Family : Order #: [id number] CLICK HERE TO VIEW EXAM RADIOLOGY REPORT [...] Hinton M.D. on 01/08/2022 at 10:05 Normal [facility] VC ENDOVENOUS ABL 1ST V RTon 12-31-2021 VC ENDOVENOUS ABL 1ST V RT Patient: FINA VELÁSQUEZ Exam Date: 12/31/2021 : 1995 Gender:F Ordering : DR JAMEEL BURGOS M.D. Admission #: [id number] Family : Order #: [id number] CLICK HERE TO VIEW EXAM RADIOLOGY REPORT [...] Jameel Burgos MD on 12/31/2021 at 11:06 [facility] ED Clinical Summaryon [address] [facility] ? Urgent Care [address] [place] [address] Clinical Summary PERSON INFORMATION Name: VERNON VELÁSQUEZ Age: 26 Years Sex: FEMALE : 1995 MRN: Acct#: Visit Reason: OTTERBEIN PHYSICAL Arrival: 11/28/2021 10:39:56 Discharge: 11/28/2021 10:59:00 LOS: 000 00:20 Check In: 11/28/2021 10:39:56 Checkout: 11/28/2021 10:59:00 Address: [address] [place] [address] PCP: Provider, None PROVIDER INFORMATION VITALS INFORMATION Vital Sign Triage Latest Temperature Tympanic Temperature Temporal Artery Pulse Rate O2 Sat Respiratory Rate Blood Pressure / / MEDICAL INFORMATION Medications Given: Allergy Information: No known allergies PHYSICIAN DOCUMENTATION DISCHARGE INFORMATION: Discharge Disposition: Eloped Discharge Location: PATIENT EDUCATION INFORMATION Instructions: Follow-Up: DIAGNOSIS: Patient Understands: Comment: [facility] ED Patient Summaryon ED Patient Summary [facility] ? Urgent Care [address] [place] [address] [id number] PATIENT DISCHARGE INSTRUCTIONS Patient Information Name: VERNON VELÁSQUEZ Age: 26 Years Date of : 1995 Reason For Visit: MICHELLE PHYSICAL Arrival Time: 11/28/2021 10:39:56 Primary Care Physician: Provider, None Attending Physician: Nuno Bradshaw Comment: Patient Education Medication Information: The exam and treatment you received today in the [facility] Emergency Department were for an urgent problem and are not intended as complete care. It is important for you to follow up with a doctor, nurse practitioner, or physician?s underwriting assistant for ongoing care. If your symptoms [...] so we can reach you if necessary. [facility] Emergency Department has provided you with a complete list of medications post discharge. Please inform your commissary superintendent/provider of your visit and for further instruction [...] for Disease Control and Prevention October 2013 [facility] VC CONSULT FOLLOWUPon 2021 VC CONSULT FOLLOWUP Patient: FINA VELÁSQUEZ Exam Date: 11/28/2021 : 1995 Gender:F Ordering : DR JAMEEL BURGOS M.D. Admission #: [id number] Family : Order #: [id number] CLICK HERE TO VIEW EXAM RADIOLOGY REPORT [...] Hinton M.D. on 11/28/2021 at 10:04 Normal [facility] VC EXT VENOUS LT LIMITEDon 1 VC EXT VENOUS LT LIMITED Patient: FINA VELÁSQUEZ Exam Date: 11/28/2021 : 1995 Gender:F Ordering : DR JAMEEL BURGOS M.D. Admission #: [id number] Family : Order #: [id number] CLICK HERE TO VIEW EXAM RADIOLOGY REPORT [...] Hinton M.D. on 11/28/2021 at 09:45 Normal [facility] VC ENDOVENOUS ABL 1ST V LTon 11-22-2021 VC ENDOVENOUS ABL 1ST V LT Patient: FINA VELÁSQUEZ Exam Date: 11/22/2021 : 1995 Gender:F Ordering : DR JAMEEL BURGOS M.D. Admission #: [id number] Family : Order #: [id number] CLICK HERE TO VIEW EXAM RADIOLOGY REPORT [...] Burgos MD on 11/22/2021 at 09:04 Normal [facility] VC COMP CONSULTATIONon 10-17 VC COMP CONSULTATION Patient: FINA VELÁSQUEZ Exam Date: 10/17/2021 : 1995 Gender:F Ordering : DR JAMEEL BURGOS M.D. Admission #: [id number] Family : Order #: [id number] CLICK HERE TO VIEW EXAM RADIOLOGY REPORT [...] arterial disease 5. CEAP: C2, EC, AP, FL PLAN: 1. Continued use of compression stockings [...] M.D. on 10/17/2021 at 12:46 Normal [facility] Basic Metabolic Panelon 04-0 Anion gap [Moles/Vol] 8 mmol/L Low 9 - 17 mmol/L Mama Calcium [Mass/Vol] 8.6 mg/dL 8.6 - 10. 4 mg/dL Mama Chloride [Moles/Vol] 106 mmol/L 98 - 107 mmol/L Mama CO2 [Moles/Vol] 23 mmol/L 20 - 31 mmol/L Mama Creatinine [Mass/Vol] 0.67 mg/dL 0.50 - 0.90 mg/dL Mama GFR >60 >60 mL/min Mama GFR Non- >60 >60 mL/min Mama GFR/1.73 sq M.predicted MDRD (S/P/Bld) [Vol rate/Area] Mama Comment on above: Average GFR for 20-2 9 years old: 116 mL/min/1.73sq m Chronic Kidney Disease: <60 mL/min/1.73sq m Kidney failure: <15 mL/min/1.73sq m eGFR calculated using average adult body mass. Additional eGFR calculator available at: http://www.[employer]gar Online/multiple_crcl_2011.htm Glucose [Mass/Vol] 83 mg/dL 70 - 99 mg/dL [facility] Interpretation and review of laboratory results Abnormal [facility] Potassium [Moles/Vol] 3.9 mmol/L 3.7 - 5.3 mmol/L [facility] Sodium [Moles/Vol] 137 mmol/L 135 - 144 mmol/L [facility] Urea nitrogen (BldV) [Mass/Vol] 7 mg/dL 6 - 20 mg/dL [facility] CBCon 05-17-2021 Hematocrit (Bld) [Volume fraction] 34.4 % Low 36.3 - 47.1 % [facility] Hemoglobin.gastroin testinal spec 1 Ql (Stl) 11.0 g/dL Low 11.9 - 15.1 g/dL [facility] Interpretation and review of laboratory results Abnormal [facility] MCH (RBC) [Entitic mass] 27.2 pg 25.2 - 33.5 pg [facility] MCHC (RBC) [Mass/Vol] 32.0 g/dL 28.4 - 34.8 g/dL [facility] MCV (RBC) [Entitic vol] 85.1 fL 82.6 - 102.9 fL [facility] NRBC Automated 0.0 0.0 per 100 WBC [facility] Platelet distribution width (Bld) [Ratio] 14.1 % 11.8 - 14.4 % [facility] Platelet mean volume (Bld) [Entitic vol] 10.1 fL 8.1 - 13.5 fL [facility] Platelets (Bld) [#/Vol] 302 10*3/uL [facility] RBC (Bld) [#/Vol] 4.04 10*6/uL 3.95 - 5.1 1 m/uL [facility] WBC (Bld) [#/Vol] 13.7 10*3/uL High [facility] SURGICAL PATHOLOGY REPORTon 05-17-2021 Surgical Pathology Report [...] x 0.5 cm piece of adipose tissue. Matrix Bath Operator sections 1cs. tm Microscopic Description 1 H&E reviewed. Microscopic examination performed. SURGICAL PATHOLOGY CONSULTATION Patient Name: FINA VELÁSQUEZ [facility] Rec: [id number] Path Number: [id number] [facility] [employer] [facility] ANATOMIC PATHOLOGY [address] [place] [address]. [place], [place] [address] [facility] Basic Metabolic Panelon 04-0 Anion gap [Moles/Vol] 10 mmol/L 9 - 17 mmol/L Mama Calcium [Mass/Vol] 8.7 mg/dL 8.6 - 10. 4 mg/dL [facility] Chloride [Moles/Vol] 105 mmol/L 98 - 107 mmol/L Mama CO2 [Moles/Vol] 23 mmol/L 20 - 31 mmol/L Mama Creatinine [Mass/Vol] 0.75 mg/dL 0.50 - 0.90 mg/dL [facility] GFR >60 >60 mL/min [facility] [employer] GFR Non- >60 >60 mL/min Mama GFR/1.73 sq M.predicted MDRD (S/P/Bld) [Vol rate/Area] [facility] [employer] Comment on above: Average GFR for 20-2 9 years old: 116 mL/min/1.73sq m Chronic Kidney Disease: <60 mL/min/1.73sq m Kidney failure: <15 mL/min/1.73sq m eGFR calculated using average adult body mass. Additional eGFR calculator available at: http://www.[employer]/multiple_crcl_2012.htm Glucose [Mass/Vol] 132 mg/dL High 70 - 99 mg/dL [facility] Interpretation and review of laboratory results Abnormal [facility] [employer] Potassium [Moles/Vol] 3.5 mmol/L Low 3.7 - 5.3 mmol/L [facility] Sodium [Moles/Vol] 138 mmol/L 135 - 144 mmol/L [facility] Urea nitrogen (BldV) [Mass/Vol] 10 mg/dL 6 - 20 mg/dL [facility] CBC without Diffon Hematocrit (Bld) [Volume fraction] 38.8 % 36.3 - 47.1 % [facility] Hemoglobin.gastroin testinal spec 1 Ql (Stl) 12.6 g/dL 11.9 - 15.1 g/dL [facility] Interpretation and review of laboratory results Abnormal [facility] MCH (RBC) [Entitic mass] 27.2 pg 25.2 - 33.5 pg [facility] MCHC (RBC) [Mass/Vol] 32.5 g/dL 28.4 - 34.8 g/dL [facility] MCV (RBC) [Entitic vol] 83.8 fL 82.6 - 102.9 fL [facility] NRBC Automated 0.0 0.0 per 100 WBC [facility] Platelet distribution width (Bld) [Ratio] 13.9 % 11.8 - 14.4 % [facility] Platelet mean volume (Bld) [Entitic vol] 9.8 fL 8.1 - 13.5 fL [facility] Platelets (Bld) [#/Vol] 340 10*3/uL [facility] RBC (Bld) [#/Vol] 4.63 10*6/uL 3.95 - 5.1 1 m/uL [facility] WBC (Bld) [#/Vol] 15.0 10*3/uL High [facility] POC Glucose Fingerstickon Glucose [Mass/Vol] 77 mg/dL 65 - 105 mg/dL [facility] POCT urine pregnancyon 05-16 Beta HCG ( test) Ql (U) Negative NEGATIVE [facility] Comment on above: Specimens with hCG l evels near the threshold of the test (25 mIU/mL) may give a negative or indeterminate result. In such cases, another test should be performed with a new specimen in 48-72 hours. If early is suspected clinically in this setting, correlation with quantitative serum b-hCG level is suggested. [facility] [id number] 05-15-2021 SARS-CoV-2 (COVID-19) RNA BECCA+probe Ql (Unsp spec) Normal [facility] Comment on above: Performed By: #### C OVID #### [facility] [address] [place], [place] [id number] Acid Conditioning Worker: Anthony Aguilar MD [facility] [address] [place] [address] [place] [address] Acid Conditioning Worker: Jameel Lawler MD SARS-CoV-2 (COVID-19) RNA BECCA+probe Ql (Unsp spec) Not detected Normal NOTDET [facility] Comment on above: Result Comment: The specimen is NEGATIVE for SARS-CoV-2, the novel coronavirus associated with COVID-19. A negative result does not rule out COVID-19. [employer] SARS-CoV-2 for use on the [employer] is a real-time RT-PCR test intended [...] this assay. Fact sheet for Healthcare Providers: https://www.fda.gov/media/373262/download Fact sheet for Patients: https://www.fda.gov/media/908480/download METHODOLOGY: RT-PCR Performed By: #### C OVID #### [facility] [address] [place], [place] [id number] Acid Conditioning Worker: Anthony Aguilar MD [facility] [address] [place] [address] Acid Conditioning Worker: Jameel Lawler MD [id number] 05-14-2021 SARS-CoV-2 (COVID-19) RNA BECCA+probe Ql (Unsp spec) .NASOPHARYNGEAL SWAB Normal [facility] Comment on above: Performed By: #### C OVID #### [facility] [address], [place] [id number] Acid Conditioning Worker: Anthony Aguilar MD [facility] [address] [place] [address] Acid Conditioning Worker: Jameel Lawler MD Nicotine, Bloodon 05-05-2021 5-JD-Sselfodi <2 ng/mL [facility] h Cotinine <2 ng/mL [facility] Nicotine <2 ng/mL [facility] Comment on above: (NOTE) Consistent with abstinence [...] developed and its performance characteristics determined by [employer]. It has not been cleared or approved by the [place] Food and Drug Administration. This test was performed in a CLIA certified laboratory and is intended for clinical purposes. Performed By: [facility] [address] [place] [address] Box Spring Maker: Yara Rodriguez MD [facility] [employer] EKG 12 LeadOrdered By: Diaz Conway on 05-03-2021 Atrial Rate 72 BPM Mama Work Phone: P Dalbo 45 degrees Mama Work Phone: P-R Interval 142 ms Mama Work Phone: Q-T Interval 376 ms Mama Work Phone: QRS Duration 100 ms Mama Work Phone: QTc Calculation (Bazett) 411 ms Mama Work Phone: R Dalbo 22 degrees Mama Work Phone: T Dalbo 32 degrees Mama Work Phone: Ventricular Rate 72 BPM [employer] [facility] Work Phone: Mama Work Phone: EKG 12 Leadon 05-03-2021 Normal sinus rhythm Normal ECG No previous ECGs available [facility] Diaz Elias MD - 05/03/2021 Normal sinus rhythm Normal ECG No previous ECGs available Mama Work Phone: APTTon 05-02-2021 aPTT Coag (Bld) [Time] 25.0 s Mama Comment on above: IV Heparin Therapy Range: 48.6-77.8 Basic Metabolic Panelon 04-11 Anion gap [Moles/Vol] 15 mmol/L 9 - 17 mmol/L Mama Calcium [Mass/Vol] 9.8 mg/dL 8.6 - 10. 4 mg/dL Mama Chloride [Moles/Vol] 102 mmol/L 98 - 107 mmol/L Mama CO2 [Moles/Vol] 21 mmol/L 20 - 31 mmol/L Mama Creatinine [Mass/Vol] 0.55 mg/dL 0.50 - 0.90 mg/dL Mama GFR >60 >60 mL/min Mama GFR Non- >60 >60 mL/min Mama GFR/1.73 sq M.predicted MDRD (S/P/Bld) [Vol rate/Area] Mama Comment on above: Average GFR for 20-2 9 years old: 116 mL/min/1.73sq m Chronic Kidney Disease: <60 mL/min/1.73sq m Kidney failure: <15 mL/min/1.73sq m eGFR calculated using average adult body mass. Additional eGFR calculator available at: http://www.[employer]/multiple_crcl_2012.htm Glucose [Mass/Vol] 85 mg/dL 70 - 99 mg/dL [facility] Potassium [Moles/Vol] 4.5 mmol/L 3.7 - 5.3 mmol/L [facility] Sodium [Moles/Vol] 138 mmol/L 135 - 144 mmol/L [facility] Urea nitrogen (BldV) [Mass/Vol] 11 mg/dL 6 - 20 mg/dL [facility] CBCon 05-02-2021 Hematocrit (Bld) [Volume fraction] 41.0 % 36.3 - 47.1 % [facility] Hemoglobin.gastroin testinal spec 1 Ql (Stl) 12.9 g/dL 11.9 - 15.1 g/dL [facility] MCH (RBC) [Entitic mass] 26.9 pg 25.2 - 33.5 pg [facility] MCHC (RBC) [Mass/Vol] 31.5 g/dL 28.4 - 34.8 g/dL [facility] MCV (RBC) [Entitic vol] 85.6 fL 82.6 - 102.9 fL [facility] NRBC Automated 0.0 0.0 per 100 WBC [facility] Platelet distribution width (Bld) [Ratio] 13.7 % 11.8 - 14.4 % [facility] Platelet mean volume (Bld) [Entitic vol] 9.8 fL 8.1 - 13.5 fL [facility] [facility] (Bld[facility] [#/Vol] 380 10*3/uL [facility] RBC (Bld) [#/Vol] 4.79 10*6/uL 3.95 - 5.1 1 m/uL [facility] WBC (Bld) [#/Vol] 11.2 10*3/uL [facility] No Panel Informationon 05-02 [facility] Protime-INRon 05-02-2021 INR Coag (Bld) [Relative time] 1.0 {INR} [facility] Comment on above: Therapeutic Range: Moderate Anticoagulant Intensity: INR = 2.0-3.0 High Anticoagulant Intensity: INR = 2.5-3.5 PT Coag (PPP) [Time] 10.6 s [facility] XR CHEST (2 VW)on 05-02-2021 No acute [...] No free air. IMPRESSION: No acute process. [facility] Phone: Radiology Study observation (narrative) [facility] Phone: XR CHEST (2 VW)Ordered By: Santos Florez on 05-02-2021 [facility] [employer] Phone: [id number] 12-05-2020 SARS-CoV-2 (COVID-19) RNA BECCA+probe Ql (Unsp spec) Normal [facility] Comment on above: Performed By: #### C OVID #### [facility] [address] [place] [address] Acid Conditioning Worker: Anthony Aguilar MD [facility] [address] [place] [address] Acid Conditioning Worker: Jameel Lawler MD SARS-CoV-2 (COVID-19) RNA BECCA+probe Ql (Unsp spec) Not detected Normal [facility] Comment on above: Result Comment: The specimen is NEGATIVE for SARS-CoV-2, the novel coronavirus associated with COVID-19. A negative result does not rule out COVID-19. Lucrecia SARS-CoV-2 for use on the [employer]88[employer] is a real-time RT-PCR test intended [...] this assay. Fact sheet for Healthcare Providers: https://www.fda.gov/media/682826/download Fact sheet for Patients: https://www.fda.gov/media/822428/download METHODOLOGY: RT-PCR Performed By: #### C OVID #### [facility] [address], [place] [id number] Acid Conditioning Worker: Anthony Aguilar MD [facility] [address] [place] [address] [place] [address] Acid Conditioning Worker: Jameel Lawler MD [id number] 12-04-2020 SARS-CoV-2 (COVID-19) RNA BECCA+probe Ql (Unsp spec) .NASOPHARYNGEAL SWAB Normal [facility] Comment on above: Performed By: #### C OVID #### [facility] [address] [place] [address] Acid Conditioning Worker: Anthony Aguilar MD [facility] [address] [place] [address] [place] [address] Acid Conditioning Worker: Jameel Lawler MD Vital Signs Date Time Vital Sign Value Performing Clinician Facility 02-07-2023 13:34-0500 Body height 170.2 cm Tatiana Yap MD Work Phone: [facility] 02-07-2023 13:34-0500 Body mass index (BMI) [Ratio] 34.14 kg/m2 Tatiana Yap MD Work Phone: [facility] 02-07-2023 13:34-0500 Body weight 98.88 kg Tatiana Yap MD Work Phone: [facility] 02-07-2023 13:34-0500 Diastolic blood pressure 83 mm[Hg] Tatiana Yap MD Work Phone: [facility] 02-07-2023 13:34-0500 Heart rate 76 /min Tatiana Yap MD Work Phone: [facility] 02-07-2023 13:34-0500 Systolic blood pressure 126 mm[Hg] Tatiana Yap MD Work Phone: [facility] 10-12-2022 10:10-0400 Body height 170.18 cm Lilia Willow Other [facility] Other 10-12-2022 10:10-0400 Body mass index (BMI) [Ratio] 32.86 kg/m2 Lilia Willow Other [facility] Other 10-12-2022 10:10-0400 Body temperature 99 [degF] Lilia Willow Other [facility] Other 10-12-2022 10:10-0400 Body weight 95.17 kg Lilia Willow Other [facility] Other 10-12-2022 10:10-0400 Diastolic blood pressure 74 mm[Hg] Lilia Willow Other [facility] Other 10-12-2022 10:10-0400 SaO2% (BldA) [Mass fraction] 98 % Lilia Willow Other [facility] Other 10-12-2022 10:10-0400 Systolic blood pressure 118 mm[Hg] Lilia Willow Other [facility] Other 05-17-2021 15:52-0400 Body temperature 98.49 [degF] Patricia Antoinette SOLITARIO Work Phone: [facility] 04-07-2022 15:52-0400 Diastolic blood pressure 97 mm[Hg] Patricia Curry DO Work Phone: [facility] 05-17-2021 15:52-0400 Heart rate 70 /min Patricia Curry DO Work Phone: [facility] 05-17-2021 15:52-0400 Respiratory rate 18 /min Patricia Curry [employer] Work Phone: [facility] 05-17-2021 15:52-0400 SaO2% (BldA) [Mass fraction] 99 % Patricia Curry [employer] Work Phone: [facility] 05-17-2021 15:52-0400 Systolic blood pressure 138 mm[Hg] Patricia Curry DO Work Phone: [facility] 05-16-2021 06:06-0400 Body mass index (BMI) [Ratio] 43.16 kg/m2 Patricia Curry [employer] Work Phone: [facility] 05-16-2021 06:06-0400 Body weight 125 kg Patricia Curry [employer] Work Phone: [facility] 05-16-2021 05:57-0400 Body height 170.2 cm Patricia Curry [employer] Work Phone: [facility] 05-02-2021 10:35-0400 Body height 170.2 cm Stvz 1 [facility] 05-02-2021 10:35-0400 Body mass index (BMI) [Ratio] 44.95 kg/m2 St[facility] 1 [facility] 05-02-2021 10:35-0400 Body temperature 97.2 [degF] Stvz 1 [facility] 05-02-2021 10:35-0400 Body weight 130.18 kg Stvz 1 [facility] 05-02-2021 10:35-0400 Diastolic blood pressure 85 mm[Hg] Stvz 1 [facility] 05-02-2021 10:35-0400 Heart rate 66 /min Stvz 1 [facility] 05-02-2021 10:35-0400 Respiratory rate 18 /min Stvz 1 [facility] 05-02-2021 10:35-0400 SaO2% (BldA) [Mass fraction] 99 % Stvz 1 [facility] 05-02-2021 10:35-0400 Systolic blood pressure 122 mm[Hg] Stvz 1 [facility] 12-04-2020 17:00-0400 Body height 170.18 cm Ale Ginty Other [employer] [facility] Other 12-04-2020 17:00-0400 Body mass index (BMI) [Ratio] 43.85 kg/m2 Ale Ginty Other [employer] [facility] Other 12-04-2020 17:00-0400 Body temperature 97.4 [degF] Ale Ginty Other [employer] [facility] Other 12-04-2020 17:00-0400 Body weight 127.01 kg Ale Ginty Other [employer] [facility] Other 12-04-2020 17:00-0400 SaO2% (BldA) [Mass fraction] 99 % Ale Ginty Other [employer] Other Encounters Encounter Date Encounter Type Care Provider Facility Start: 02-07-2023 End: 02-07-2023 ambulatory [facility] Start: 02-07-2023 End: 02-07-2023 Office consultation new/estab patient 60 min Tatiana Yap MD Work Phone: [facility] [place] Comment on above: Hypertension affecti ng in second trimester (Primary Dx); 16 weeks gestation of ; Dichorionic diamniotic twin in second trimester; H/O gastric sleeve Start: 02-05-2023 End: 02-05-2023 ambulatory NIGEL HOPE Not Available Start: 02-05-2023 Chart abstracting Tatiana Yap MD Work Phone: [facility] [place] Start: 02-04-2023 End: 02-04-2023 ambulatory MARGOT Sudheer YAW Not Available Start: 01-15-2023 End: 01-15-2023 ambulatory NIGEL HOPE Not Available Start: 01-07-2023 End: 01-07-2023 ambulatory MARGOT Sudheer GUPTAE Not Available Start: 12-20-2022 End: 12-21-2022 ambulatory NIGEL HOPE Not Available Start: 10-12-2022 End: 10-12-2022 ambulatory Lilia Daugherty Other [employer] Other Start: 10-12-2022 Office outpatient vi sit 15 minutes Lilia Daugherty [facility] Start: 09-11-2022 End: 09-11-2022 ambulatory PATRICIA Alka [facility] Start: 02-10-2022 End: 02-10-2022 ambulatory Ale Shields Other [employer] Other Start: 02-10-2022 Telephone encounter Ale Shields [facility] [address] Start: 02-08-2022 End: 02-08-2022 ambulatory Ale Shields Facility:[facility] Start: 02-08-2022 End: 02-08-2022 ambulatory LAURA Shields Work Phone: [facility] Work Phone: Start: 02-08-2022 End: 02-08-2022 Departed Referred LAURA Shields Work Phone: [facility] [place] Work Phone: Start: 01-08-2022 End: 01-09-[address] JAMEEL BURGOS Facility:[facility] Start: 12-31-2021 End: 01-01-[address] JAMEEL BURGOS Facility:[facility] Start: 11-28-2021 End: 11-28-2021 ambulatory Giuliana Provider Facility:[facility] Start: 11-28-2021 End: 11-29-[address] [...] 05-14-2021 End: 05-19-2021 ambulatory CYN OKEEFE [facility] Start: 05-02-2021 End: 05-06-2021 Subsequent hospital visit by physician Dwight Pat Rm 1 [facility] Pre-Admit Testing Start: 12-04-2020 End: 12-09-2020 ambulatory CYN OKEEFE [facility] Start: 12-04-2020 Office outpatient vi sit 15 minutes Ale Kimberly [facility] Start: 10-20-2020 End: 10-20-2020 Subsequent hospital visit by physician Patricia Curry DO Work Phone: [facility] [place] Start: 09-06-2020 End: 09-07-2020 ambulatory IKE ANGEL [facility] Start: 09-06-2020 End: 09-06-2020 Subsequent hospital visit by physician Henrietta Sleep Rm 1 [facility] Comment on above: LYNN (obstructive sle ep apnea) Start: 05-28-2017 End: 05-29-2017 Ambulatory Neo Anderson Facility:[id number] Procedures Date Procedure Procedure Detail Performing [...] metabolic pane l calcium total Patricia Curry [employer] Work Phone: Start: 05-16-2021 End: 05-16-2021 Laps gstrc rstrictiv px longitudinal gastrectomy Patricia Curry DO Work Phone: Start: 05-16-2021 Glucose blood reagen t strip Patricia Curry DO Work Phone: Start: 05-16-2021 Urine test visual color cmprsn meths Patricia Curry [employer] Work Phone: Start: 05-02-2021 Assay of nicotine Sim Curry [employer] Work Phone: Start: 05-02-2021 Basic metabolic pane l calcium total Patricia Curry DO Work Phone: Start: 05-02-2021 Radiologic exam ches t 2 views Patricia Curry DO Work Phone: Start: 05-02-2021 Ecg routine ecg w/le ast 12 lds i&r only Patricia Curry [employer] Work Phone: Start: 06-14-2020 Microscopic observat ion [Identifier] in Cervix by Cyto stain Tatiana Yap MD Work Phone: Plan of Treatment Date Care Activity Detail Author Start: 02-08-2024 Adult BMI Screening Adult BMI Screen ing [facility] Start: 02-08-2024 Tobacco Screening Tobacco Screening [facility] Start: 01-04-2024 Adult BMI Screening Adult BMI Screen ing [facility] Start: 01-04-2024 Tobacco Screening Tobacco Screening [facility] Start: 08-11-2023 DTaP,Tdap and Td Vaccines (7 - Td or Tdap) DTaP,Tdap and Td Vaccines (7 - Td or Tdap) [facility] Start: 08-11-2023 DTaP/Tdap/Td vaccine (7 - Td or Tdap) DTaP/Tdap/Td vaccine (7 - Td or Tdap) [facility] Start: 06-15-2023 Screening for malign ant neoplasm of cervix Pap Smear [facility] Start: 03-05-2023 End: 03-05-2023 Patient encounter procedure 03/05/2023 11:30 AM EST Office Visit [facility]- Medicine at [facility] [address] [place] [phone] Bentley Sanchez MD [address] [place] [address] [facility] Start: 03-05-2023 End: 03-05-2023 Patient encounter procedure 03/05/2023 9:30 AM EST Appointment [facility] [address] [place] [phone] [facility] Start: 02-07-2023 End: 02-07-2023 Patient encounter procedure [facility] [place] Start: 10-11-2022 Influenza vaccination Influenza Vacc ine [facility] Start: 09-19-2022 Adult BMI Follow Up Plan Adult BMI Follow Up Plan [facility] Start: 02-08-2022 Bacteria identified in Urine by Culture Urine Culture [facility] Start: 01-08-2022 Hemoglobin A1c measurement A1C test (Diabetic or Prediabetic) [facility] Start: 10-11-2021 Influenza vaccination Flu vacc ine (Season Ended) [facility] Start: 07-14-2021 Hemoglobin A1c measurement A1C test (Diabetic or Prediabetic) [facility] Work Phone: Start: 06-18-2021 End: 06-18-2021 Patient encounter procedure 06/18/2021 Office Visit BariatricDeann Roca, ELECTRONIC VIDEO GAMES SERVICER - PROPAGATION MANAGER [address] [place] [address] [facility] [employer] Start: 05-24-2021 End: 05-24-2021 Patient encounter procedure 05/24/2021 Office Visit Patricia Islas DO [address] [place] [address] [facility] Invasive Bariatric Surg Start: 05-16-2021 End: 05-16-2021 Admission to same day surgery center 05/16/2021 Surgery IP Unit Patricia Curry DO [address] [place] [address] XI ROBOTIC LAPAROSCOPIC GASTRECTOMY SLEEVE , LIVER BIOPSY, EGD- GI SCHEDULED [facility] Comment on above: XI ROBOTIC LAPAROSCO PIC GASTRECTOMY SLEEVE , LIVER BIOPSY, EGD- GI SCHEDULED Start: 05-16-2021 End: 05-16-2021 Laps gstrc rstrictiv px longitudinal gastrectomy GASTRECTOMY SLEEVE LAPAROSCOPIC ROBOTIC MORBID OBESITY, OBSTRUCTIVE SLEEP APNEA, GERD 05/16/2021 7:10 AM EDT [facility] Start: 05-16-2021 Subsequent hospital visit by physician 05/16/2021 Hospital Encounter IP Unit Patricia Curry DO [address] [place] [address] [facility] Start: 05-13-2021 End: 05-13-2021 Patient encounter procedure 05/13/2021 Appointment Pre-Admission Testing [facility] PRE ADMIT Start: 05-10-2021 End: 05-10-2021 Patient encounter procedure 05/10/2021 Office Visit Patricia Islas DO [address] [place] [phone] Khushbu Morse Invasive Bariatric Surg Start: 11-22-2020 End: 11-22-2020 Nursing evaluation of patient and report 11/22/2020 Nurse Only Bariatrics Khushbu Morse Invasive Bariatric Surg Start: 11-06-2020 End: 11-06-2020 Patient encounter procedure [facility] Start: 11-03-2020 End: 11-03-2020 Patient encounter procedure 11/03/2020 Office Visit Bariatrics Deann Navarro, ELECTRONIC VIDEO GAMES SERVICER - PROPAGATION MANAGER [address] [facility] [address] [place] [phone] [facility] [employer] Start: 10-11-2020 Influenza vaccination Flu vaccine (# 1) [facility] Start: 09-28-2020 End: 09-28-2020 Patient encounter procedure 09/28/2020 Office Visit Bariatrics Deann Navarro, ELECTRONIC VIDEO GAMES SERVICER - PROPAGATION MANAGER [address] [facility] [address] [place] [phone] [facility] Start: 09-01-2015 Screening for malign ant neoplasm of cervix [facility] Start: 2009 HIV screening HIV screen [facility] Start: 2006 COVID-19 Vaccine (1) COVID-19 Vaccin e (1) [facility] Work Phone: Start: 2006 Depression Screen Depression Screen [facility] Start: 2006 Depression Screening Depression Scre [facility] Start: 2005 HPV vaccine (1 - 2-d ose series) HPV vaccine (1 - 2-dose series) [facility] Start: 2000 Pneumococcal 0-64 ye ars Vaccine (1 of 2 - PPSV23) Pneumococcal 0-64 years Vaccine (1 of 2 - PPSV23) [facility] Work Phone: Start: 09-01-1999 COVID-19 Vaccine (1) COVID-19 Vaccin e (1) [facility] Start: 09-01-1995 Varicella vaccine (1 of 2 - 2-dose childhood series) Varicella vaccine (1 of 2 - 2-dose childhood series) [facility] Start: 1994 Hepatitis C screening Hepatitis C [facility] End: 09-06-2020 Baseline Diagnostic Sleep Study Baseline Diagnostic Sleep Study Sleep Center Routine LYNN (obstructive sleep apnea) 1 Occurrences starting 09/06/2020 until 09/06/2020 [employer] Phone: Comment on above: 1 Occurrences starti ng 09/06/2020 until 09/06/2020 End: 02-08-2024 Calcium [Mass/volume] in Serum or Plasma Calcium Lab Routine 16 weeks gestation of H/O gastric sleeve 1 Occurrences starting 02/07/2023 until 02/08/2024 [facility] Comment on above: 1 Occurrences starti ng 02/07/2023 until 02/08/2024 End: 02-08-2024 CBC panel - Blood by Automated count CBC without diff Lab Routine Hypertension affecting in second trimester 16 weeks gestation of Dichorionic diamniotic twin in second trimester 1 Occurrences starting 02/07/2023 until 02/08/2024 [employer] Work Phone: Comment on above: 1 Occurrences starti ng 02/07/2023 until 02/08/2024 End: 02-08-2024 Comprehensive metabolic 2000 panel - Serum or Plasma Comprehensive metabolic panel Lab Routine Hypertension affecting in second trimester 16 weeks gestation of Dichorionic diamniotic twin in second trimester 1 Occurrences starting 02/07/2023 until 02/08/2024 [facility] Comment on above: 1 Occurrences starti ng 02/07/2023 until 02/08/2024 Continuous pulse oximetry Pulse oximetry, continuous Respiratory Care Routine Every 4hr until discontinued starting 05/16/2021 [employer] Phone: Comment on above: Every 4hr until disc ontinued starting 05/16/2021 End: 02-08-2024 Cyanocobalamin vitamin b-12 Vitamin B12 Lab Routine 16 weeks gestation of H/O gastric sleeve 1 Occurrences starting 02/07/2023 until 02/08/2024 [facility] Comment on above: 1 Occurrences starti ng 02/07/2023 until 02/08/2024 End: 02-08-2024 ECG 12 lead ECG 12 lead ECG Routine Hypertension affecting in second trimester 16 weeks gestation of Dichorionic diamniotic twin in second trimester 1 Occurrences starting 02/07/2023 until 02/08/2024 [facility] Comment on above: 1 Occurrences starti ng 02/07/2023 until 02/08/2024 End: 02-08-2024 Folate Folate Lab Routine 16 weeks gestation of H/O gastric sleeve 1 Occurrences starting 02/07/2023 until 02/08/2024 [facility] Comment on above: 1 Occurrences starti ng 02/07/2023 until 02/08/2024 End: 02-08-2024 Iron and TIBC Iron and TIBC Lab Routine 16 weeks gestation of H/O gastric sleeve 1 Occurrences starting 02/07/2023 until 02/08/2024 [facility] Comment on above: 1 Occurrences starti ng 02/07/2023 until 02/08/2024 End: 02-08-2024 LDH LDH Lab Routine Hypertension affecting in second trimester 16 weeks gestation of Dichorionic diamniotic twin in second trimester 1 Occurrences starting 02/07/2023 until 02/08/2024 [facility] Comment on above: 1 Occurrences starti ng 02/07/2023 until 02/08/2024 End: 02-08-2024 Natriuretic peptide B [Mass/volume] in Blood B-type natriuretic peptide Lab Routine Hypertension affecting in second trimester 16 weeks gestation of Dichorionic diamniotic twin in second trimester 1 Occurrences starting 02/07/2023 until 02/08/2024 [facility] Comment on above: 1 Occurrences starti ng 02/07/2023 until 02/08/2024 Oxygen therapy [[facility] Data Set] Initiate Oxygen Therapy Protocol Respiratory Care Routine As Needed until discontinued starting 05/16/2021 [employer] Phone: Comment on above: As Needed until disc ontinued starting 05/16/2021 End: 02-08-2024 Protein creat ratio Protein creat ratio Lab Routine Hypertension affecting in second trimester 16 weeks gestation of Dichorionic diamniotic twin in second trimester 1 Occurrences starting 02/07/2023 until 02/08/2024 [facility] Comment on above: 1 Occurrences starti ng 02/07/2023 until 02/08/2024 End: 02-08-2024 Protein, urine, 24 hour Protein, urine, 24 hour Lab Routine Hypertension affecting in second trimester 16 weeks gestation of Dichorionic diamniotic twin in second trimester 1 Occurrences starting 02/07/2023 until 02/08/2024 [facility] Comment on above: 1 Occurrences starti ng 02/07/2023 until 02/08/2024 Spirometry panel Incentive isiah metry Respiratory Care Routine Every 2hr while awake until discontinued starting 05/16/2021 [employer] Phone: Comment on above: Every 2hr while awak e until discontinued starting 05/16/2021 Surgical Pathology Surgical Path ology Lab Routine Release Upon Ordering for 1 Occurrences starting 05/16/2021 [employer] Phone: Comment on above: Release Upon Orderin g for 1 Occurrences starting 05/16/2021 End: 02-08-2024 Thiamin Vitamin B1, whole blood Thiamin Vitamin B1, whole blood Lab Routine 16 weeks gestation of H/O gastric sleeve 1 Occurrences starting 02/07/2023 until 02/08/2024 [facility] Comment on above: 1 Occurrences starti ng 02/07/2023 until 02/08/2024 End: 02-08-2024 Urate [Mass/volume] in Serum or Plasma Uric acid Lab Routine Hypertension affecting in second trimester 16 weeks gestation of Dichorionic diamniotic twin in second trimester 1 Occurrences starting 02/07/2023 until 02/08/2024 [facility] Comment on above: 1 Occurrences starti ng 02/07/2023 until 02/08/2024 End: 02-08-2024 Vitamin D 25 hydroxy Vitamin D 25 hydroxy Lab Routine 16 weeks gestation of H/O gastric sleeve 1 Occurrences starting 02/07/2023 until 02/08/2024 [facility] Comment on above: 1 Occurrences starti ng 02/07/2023 until 02/08/2024 Immunizations Immunization Date Immunization Notes Care Provider Jerry luther 11-12-2016 tuberculin skin test ; purified protein derivative solution, intradermal Tatiana Yap MD Work Phone: [facility] 08-10-2013 tetanus toxoid, redu yemi diphtheria toxoid, and acellular pertussis vaccine, adsorbed Tatiana Yap MD Work Phone: [facility] 10-03-1999 diphtheria, tetanus toxoids and acellular pertussis vaccine Tatiana Yap MD Work Phone: [facility] 10-03-1999 hepatitis B vaccine, pediatric or pediatric/adolescent dosage Tatiana Yap MD Work Phone: [facility] 10-03-1999 measles, mumps and rubella virus vaccine Tatiana Yap MD Work Phone: [facility] 10-03-1999 poliovirus vaccine, inactivated Tatiana Yap MD Work Phone: [facility] 01-14-1996 diphtheria, tetanus toxoids and acellular pertussis vaccine Tatiana Yap MD Work Phone: [facility] 01-14-1996 haemophilus influenz ae type b vaccine, conjugate unspecified formulation Tatiana Yap MD Work Phone: [facility] 01-14-1996 measles, mumps and rubella virus vaccine Tatiana Yap MD Work Phone: [facility] 05-21-1995 diphtheria, tetanus toxoids and acellular pertussis vaccine Tatiana Yap MD Work Phone: [facility] 05-21-1995 haemophilus influenz ae type b vaccine, conjugate unspecified formulation Tatiana Yap MD Work Phone: [facility] 05-21-1995 poliovirus vaccine, inactivated Tatiana Yap MD Work Phone: [facility] 02-21-1995 diphtheria, tetanus toxoids and acellular pertussis vaccine Tatiana Yap MD Work Phone: [facility] 02-21-1995 haemophilus influenz ae type b vaccine, conjugate unspecified formulation Tatiana Yap MD Work Phone: [facility] 02-21-1995 hepatitis B vaccine, pediatric or pediatric/adolescent dosage Tatiana Yap MD Work Phone: [facility] 02-21-1995 poliovirus vaccine, inactivated Tatiana Yap MD Work Phone: [facility] 1994 diphtheria, tetanus toxoids and acellular pertussis vaccine Tatiana Yap MD Work Phone: [facility] 1994 haemophilus influenz ae type b vaccine, conjugate unspecified formulation Tatiana Yap MD Work Phone: [facility] 1994 hepatitis B vaccine, pediatric or pediatric/adolescent dosage Tatiana Yap MD Work Phone: [facility] 1994 poliovirus vaccine, inactivated Tatiana Yap MD Work Phone: [facility] 1994 hepatitis B vaccine, pediatric or pediatric/adolescent dosage Tatiana Yap MD Work Phone: [facility] Payers Date Payer Category Payer Medicaid [id number] 2022 Medicaid [employer] [id number] 2022-Present [address] [place] [address] [id number] 2022 Self-pay 2019 Unknown [id number] 1994 Unknown [id number] 1994 Unknown [id number] 2.16.840.1.097699.3.579.2. 173 1994 Unknown [id number] 2.16.840.1.752393.3.579.2. 173 1994 Unknown [id number] 2.16.840.1.104017.3.579.2. 593 1994 Unknown [id number] 2.16.840.1.501073.3.579.2. 593 1994 Unknown [id number] 2.16.840.1.261800.3.579.2. 593 1994 Unknown [id number] 2.16.840.1.534413.3.579.2. 593 1994 Unknown [id number] 2.16.840.1.855870.3.579.2. 593 1994 Unknown [id number] 2.16.840.1.020607.3.579.2. 593 1994 Unknown [id number] 2.16.840.1.239336.3.579.2. 175 1994 Unknown [id number] 2.16.840.1.794690.3.579.2. 1259 1994 Unknown [id number] 2.16.840.1.066208.3.579.2. 1259 1994 Unknown [id number] 2.16.840.1.693871.3.579.2. 1259 1994 Unknown [id number] 2.16.840.1.332902.3.579.2. 1259 1994 Unknown [id number] 2.16.840.1.346282.3.579.2. 1259 1994 Unknown [id number] 2.16.840.1.758137.3.579.2. 1286 1994 Unknown [id number] 2.16.840.1.994711.3.579.2. 1286 1959 Private Health Insurance [id number] 1.2.840.947676.1.13.239.2. 7.3.326625.315 Private Health Insurance [facility] [id number] Unknown [id number] 2.16.840.1.628088.3.579.2. 531 Social History Date Type Detail Facility Start: 09-01-2020 End: 09-28-2020 Tobacco smoking status [facility] Current every day smoker [employer] Phone: Start: 03-20-2020 End: 09-01-2020 Cigarettes smoked current (pack per day) - Reported [employer] Start: 09-01-2020 End: 01-19-2021 Tobacco use and exposure Never used [facility] Phone: Start: 09-01-2020 End: 09-28-2020 Alcohol intake Current drinker of alcohol (finding) [facility] Phone: Start: 12-23-2019 Alcohol Comment weekly [employer] Phone: Start: 1995 Sex Assigned At Not on file M [employer] Phone: Start: 04-22-2021 End: 05-16-2021 Exposure to SARS-CoV-2 (event) Not sure Mama Exposure to SARS-CoV -2 (event) Yes Mama Start: 01-19-2021 End: 02-05-2023 Tobacco smoking status [facility] Ex-smoker Mama End: 11-19-2020 History of tobacco use Current smoker [facility] Phone: Start: 05-02-2021 End: 02-07-2023 Alcohol intake Ex-drinker (finding) [facility] Phone: Start: 08-17-2018 End: 03-20-2020 [facility] 1995 Sex Assigned At Female F [facility] End: 02-11-2020 [facility] of tobacco use [facility] tobacco use Tobacco U se Types Packs/Day Years Used Date Smoking Tobacco: Former Cigarettes Quit: 2020 Vaping/E-cigarettes Smokeless Tobacco: Former Quit: 11/06/[facility] Start: 02-05-2023 Tobacco use and exposure Forme r smokeless tobacco [facility] End: 11-06-2020 History of tobacco use User of smokeless tobacco [facility] Frequency of Communication with Friends and Family More than three times a week [facility] Start: 08-17-2018 Education 12 [facility] Start: 05-18-2022 Alcohol Comment social, every other weekend [facility] Start: 10-31-2022 [facility] Clinical Notes 12-04-2020 to 02-07-2023 [...] Yes Have you been seen here at [facility] in a previous ? No Recent ER visits or hospitalizations? No Bring blood sugar log or meter with you today? (Please bring them with you for every visit at [facility]) N/A Traveled outside the country in [...] TESTS AND ULTRASOUND REPORTS: Referral records and [facility] chart were reviewed Pertinent Ultrasound findings [...] operators who are performing tests using either [employer] or Gear[employer] systems and is limited to laboratories that [...] repeat. Fact Sheet for Healthcare Providers: https://www.f da.gov/media/708688/download Fact Sheet for Patients: https://www.fda.gov/media/965430/d ownload HABITS: Patient activity no restrictions, diet [...] a but with an anticipation of excellent nursing home outcomes. In regards to the spontaneous processes, [...] previously recommended threshold of 160/110. Reference: PMID: 27883315, 2021. Blood pressures do increase as progresses [...] preeclampsia prevention as is recommended by the [employer] Committee Opinion No. 743. [...] aspirin vs 10.3% no aspirin, p=0.45) (PMBID: 70764074). Given well-established benefits baby aspirin for the prevention of preeclampsia, I recommend initiating baby aspirin even in the setting of history of Joe-en-Y surgery. Micronutrient Dosing Recommendations: Calcium: recommend 1000-1200mg daily; if deficient, recommend 1800-35613 mg PO daily in divided doses Vitamin [...] sooner if clinically indicated Follow up in [facility] in 4 weeks for anatomy and clinic follow-up DISPOSITION: At this point the patient is in complete care of her thermite welder. Patient does have ultrasound and office visit [...] procedures Referring and communicating with other health transitional care liaison (not separately reported) Documenting clinical information in the electronic or other health record Tatiana Yap MD Maternal- Medicine [facility] [address] [facility] 1[address] [place] [address] [facility], the CDC, and other organizations representing maternal and public health professionals recommend that , , and lactating people and those considering receive the COVID-19 vaccination. Vaccination is the best method to reduce maternal and complications of SARS-CoV-2 infection. This document was created with [employer] technology. Though I make every effort to review the dictation as it is transcribed, on occasion the spoken word can be misinterpreted by the technology leading to inappropriate words, phrases, or sentences. This note is addressed to the requesting provider as a consultation for clinical guidance. Specific medical abbreviations are occasionally used and those are generally approved by the [place]?Board of?Obstetrics and?Gynecology?as well as?Maddison hodgson abbreviations. The above plan of care was based solely on the diagnoses for which a consultation was requested. ?More frequent testing may be indicated based on her other medical/obstetrical conditions. The management of other or medical conditions is beyond the scope of requested consultation and will continue to be followed by the primary thermite welder or primary care provider. Note to patient: [...] practitioner. documented in this encounter [facility] 10-12-2022 Evaluation note Encounter Date [...] take Sudafed and/or Mucinex for congestion. Take xlce-ocr-lzclg er Robitussin or Delsym for cough. Follow-up with your family physician if no improvement in 2 to 3 days. Off work tomorrow. Oct, Cough (ICD-10 - R05.9) Oct, Bronchitis (ICD-10 - J40) Acute bronchitis material was printed [employer] Other 10-19-2022 NotePatient Education Materials [id number] History of Present illness Narrative* Payal Richardson [...] and patient voices understanding [facility]: 1(155) 772-632804-07-2022 Hospital Discharge instructions* Instructions* Hannah Zavaleta RN - 05/17/2021 Discharge Instructions for Bariatric Surgery You had a Laparoscopic Sleeve Gastrectomy (59014) surgery to treat obesity. Recovery from this [...] scheduled appointment, please call the office at [phone]. Call Your Doctor If Any of the [...] sent through Care Everywhere. * Enoxaparin (Lovenox) (Greek) * Video: How to Give Yourself an Anticoagulant (Blood Thinner) Shot (Greek) documented [facility] this [facility] Phone: [phone]) 482-284003-23-2022 Hospital Discharge instructions* Instructions* Kendal Wilhelm APRN [...] Day of Surgery/Procedure As a patient at [facility] you can expect quality medical and nursing care that is centered on your individual needs. Our goal is to make your surgical experience as comfortableas possible Directions to the Surgery Center The surgery Center at [facility] is located in the Emergency Room parking lot on [address] [address] or there is additional parking across the street. The address is [address] [place] [address]. Please check in at the Surgery Center [...] on the day of surgery please contact [phone] or [phone] If you have any other questions regarding your procedure/surgery please call your surgeon's office. documented in this [facility] Phone: [phone]) 253-720403-23-2022 History of Present illness Narrative* Eloise Chi [...] syndrome) Under care of team 05/02/2021 pcp-Dr MelgozaIgvelv-gacpdug-yfmx visit april 2021 Patient was evaluated in PAT & anesthesia guidelines were applied. NPO guidelines, medication instructions and scheduled arrival time were reviewed with patient. Anesthesia contacted: no Medical or cardiac clearance ordered: no, medical clearance obtained. LAURA Garcia CNP 05/02/21 11:53 AM documented [facility]: [phone] 742-486610-25-2021 Evaluation note* Encounter Date Diagnosis Assessment Notes Treatment Notes Treatment Clinical Notes Nov, Contact with and (suspected) exposure to other viral communicable diseases (ICD-10 - Z20.828) Nov, Viral URI with cough (ICD-10 - J06.9) No COVID test completed at this time. Advised patient that will tx as viral URI. Supportive care as directed, increase fluids and rest, Tylenol/Motrin as directed, rx of Bunn and Flonase as directed, cool mist humidifier, [...] Patient care instructions given in writting by [facility] Care At Home document [employer] Other Evaluation note* Diagnosis LYNN (obstructive sleep apnea) Obstructive sleep apnea (adult) (pediatric) documented in this encounter [facility] [employer] Phone: evaluation note* Diagnosis S/P laparoscopic sleeve gastrectomy- Primary Post-op pain Other acute postoperative pain documented in this encounter [facility] [employer] Phone: evaluation noteNo assessment information available [facility] Work Phone: Evaluation noteNo InformationNort Bevy Other Evaluation note* Diagnosis Hypertension affecting in second trimester- Primary 16 weeks gestation of Dichorionic diamniotic twin in second trimester H/O gastric sleeve documented [facility] this [facility] N[facility]ative - Reported* Type Description Date Medical History METABOLIC SYNDROME Medical History SYNCOPE Medical History anxiety Surgical History WISDOM TEETH Surgical History TONSILECTOMY Surgical History ENDOSCOPY AND COLONSCOPY Surgical History C section Hospitalization History see above [employer] Other Hisjaol general Narrative - Reported* Type Description Date Medical History METABOLIC SYNDROME Medical History SYNCOPE Medical History anxiety Surgical History WISDOM TEETH Surgical History TONSILECTOMY Surgical History ENDOSCOPY AND COLONSCOPY Surgical History C section Surgical History gastric sleeve Hospitalization History see above [employer] Other Hiskcxy general Narrative - Reported* Type Description Date Medical History METABOLIC SYNDROME Medical History SYNCOPE Medical History anxiety Surgical History WISDOM TEETH Surgical History TONSILECTOMY Surgical History ENDOSCOPY AND COLONSCOPY Surgical History C section Surgical History gastric sleeve Surgical History cholcystectomy 09/10/2022 Hospitalization History see above [employer] Other InstructionsNot on filedocumented in this encounter [facility] SystemInstructionsNot on filedocumented in this encounter [facility] SystemReason for visit Narrative* Auth/Cert Specialty Diagnoses / Procedures Referred By Contac t Referred To Contact Diagnoses Morbid obesity (HCC) Obstructive sleep apnea GERD (gastroesophageal reflux disease) MORBID OBESITY, OBSTRUCTIVE SLEEP APNEA, GERD Procedures FL LAP, JAY RESTRICT PROC, LONGITUDINAL GASTRECTOMY XI ROBOTIC LAPAROSCOPIC GASTRECTOMY SLEEVE , LIVER BIOPSY, EGD- GI SCHEDULED Patricia Curry, DO [address] [address] [address] [place] [address] Referral ID Status Reason Start Date Expiration Date Visits Re quested Visits Authorized [id number] 1 1 [employer] Phone: Summary Purpose Family History No Family [...] Diagnostic Sleep Study Ike Ortiz MD [address] [address] Specialty Diagnoses / Procedures Referred By Contac t Referred To Contact Diagnoses Hypertension affecting in second trimester 16 weeks gestation of Dichorionic diamniotic twin in second trimester Procedures ECG 12 lead Tatiana Yap MD [address] [place] [address] Referral ID Status Reason Start Date Expiration Date V isits Requested Visits Authorized [id number] Pending Review 02/07/2023 02/07/2024 1 1 Chief Complaint and Reason for Visit Chief Complaint Dysuria Additional Source Comments INFORMATION SOURCE (unrecogn ized section and content) DATE CREATED AUTHOR 07/31/2017 [facility] DATE CREATED AUTHOR AUTHOR'S ORGANIZ ATION 05/21/[address] [facility] DATE CREATED AUTHOR AUTHOR'S ORGANIZ ATION 12/03/2021 [facility] DATE CREATED AUTHOR AUTHOR'S ORGANIZ ATION 01/12/2022 [facility] DATE CREATED AUTHOR AUTHOR'S ORGANIZ ATION 02/11/2022 [facility] DATE CREATED AUTHOR AUTHOR'S ORGANIZ ATION 09/13/2022 [facility] DATE CREATED AUTHOR AUTHOR'S ORGANIZ ATION 02/06/2023 [facility] EPIC DATE CREATED AUTHOR AUTHOR'S ORGANIZ ATION 02/09/2023 [facility] Reason for Visit (unrecogniz ed section and content) Status Reason Specialty Diagnoses / Procedures Referred By Contact Referred To Contact Closed [facility] Center Diagnoses LYNN (obstructive sleep apnea) Procedures Baseline Diagnostic Sleep Study Ike Ortiz MD [address] [address] Status Reason Specialty Diagnoses / Procedures Referre d By Contact Referred To Contact Diagnoses K21.9 GERD E66.9 OBESITY Procedures FL EGD TRANSORAL BIOPSY SINGLE/MULTIPLE EGD BIOPSY Patricia Curry, DO [address] [facility] [address] [place] [address] [facility] Reason Comments twin HX C/S HX gastric sleeve HX PTD Care Teams (unrecognized sec tion and content) [employer] Operator Relationship Specialty Start Date End Date Stephane Martin MD [address] [place] [address] PCP - General 05/17/20 [employer] Operator Relationship Specialty Start Date End Date Stephane Martin MD [address] [place] [address] PCP - General 05/17/20 Team Status: Inactive Member Role Status Dates Ale Shields APRN Attending Provider Active [employer] Relationship Specialty Start Date End Date Margot Toure DO [address] [place] [address] PCP - General [facility] Medicine 01/03/23 [employer] Operator Relationship Specialty Start Date End Date Margot Toure DO [address] [place] [address] PCP - General Family Medicine 01/03/23 Ordered [...] (Given - Provider: Sharmin Sam APRN - DIETARY ASSISTANT) ceFAZolin (ANCEF) 3000 mg in sterile water [...] to back table, 1000 ml. 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 [employer] provides no warranty or guarantee of the accuracy or completeness of information in this document.
--- OUTSIDE RECORDS SUMMARY | 2023-02-19 10:18 | XMS_ITS | CCD ---
Author Name Unknown Address [address] [place] [address] Organization [facility] Care Team Providers Care Crop Specialist Name Role Phone Neo Anderson Unavailable Unavailable Neo Anderson Unavailable Unavailable Jose Maria Santoyo MD, [facility] Primary Care Provider DOC OKEEFE Referring Unavailable JOSE MARIA SANTOYO STEPHANE Primary Care Unavailabl e DOC OKEEFE E Referring Unavailable [facility] Primary Care Unavailabl e IKE ORTIZ Referring Unavailable [facility], [facility] Primary Care Unavailabl e Kimberly, Ale Unavailable [...] Attending Unavailable YAW MARGOT G Referring Unavailable YWA MARGOT G Primary Care Unavailable TATIANA YAP Attending Unavailable MARGOT TOURE Referring Unavailable YAW MARGOT G Primary Care Unavailable Allergies Allergy Classification Reported Allergen(s) Allergy Type Date of Onset Reaction(s) Facility (3 sources) Ibuprofen; Translations: [IBUPROFEN] Drug Allergy 09-19-2021 [facility] Medications Current Medications Medication Drug Class(es) [...] 30 mg oral tablet (1 source) Uncompetitive T-jikssr-D-aspartate Receptor Antagonist, Sigma-1 Agonist Start: 2020 take 1 tablet by mouth every eight hours Dauphin DMT 30-30 MG 1 tablet Orally every [...] Iron (2 sources) Iron Active lactobacillus acidophilus [id number] unt / pectin 100 mg oral tablet [...] extended release oral tablet (2 sources) Uncompetitive V-kwlmob-W-asparta te Receptor Antagonist, Sigma-1 Agonist Start: 01-14-2022 [...] - Officeon 2022 Radiology Study observation (narrative) [facility] HIV 1&2 AB/AG Screen (P24 AG )on 12-20-2022 HIV 1&2 AB/AG Non-Reactive [facility] Hepatitis B surface antigeno n 12-20-2022 Hepatitis B Surface Antigen Negative [facility] No Panel Informationon 12-20 [facility] Rubella IGG immune statuson 12-20-2022 Rubella immune IgG 1.96 [facility] Syphilis Total(Unknown Syphi lis Status)on 12-20-2022 Syphilis Non-Reactive [facility] Ultrasound - Officeon 2022 SEE SCANNED REPORt MANUAL LY TRANSCRIBED RESULTS [facility] COVID + FLU Quick Testingon 10-12-2022 SARS-CoV-2 (COVID-19) RNA BECCA+probe Ql (Unsp spec) negtaive [employer] [facility] [employer] Other COVID + FLU Quick Testing Negative tado Other Basic Metabolic Profon 09-11 Anion gap [Moles/Vol] 9 mmol/L Normal 9-17 [facility] Comment on above: Performed By: #### B MP, CBC, PT #### [employer] [address] [place] [address] Dowel Inspector: Anthony Aguilar MD Calcium [Mass/Vol] 8.8 mg/dL Normal 8.6-10.4 [facility] Comment on above: Performed By: #### B MP, CBC, PT #### [facility] [address] [place] [address] Dowel Inspector: Anthony Aguilar MD Chloride [Moles/Vol] 106 mmol/L Normal 98-107 [facility] Comment on above: Performed By: #### B MP, CBC, PT #### [facility] [address] [place] [address] Dowel Inspector: Anthony Aguilar MD CO2 [Moles/Vol] 23 mmol/L Normal 20-31 [facility] Comment on above: Performed By: #### B MP, CBC, PT #### [facility] [address] [place] [address] Dowel Inspector: Anthony Aguilar MD Creatinine [Mass/Vol] 0.7 mg/dL Normal 0.5-0.9 [facility] Comment on above: Performed By: #### B MP, CBC, PT #### [address] [address] Dowel Inspector: Anthony Aguilar MD GFR/1.73 sq M.predicted among non-blacks MDRD (S/P/Bld) [Vol rate/Area] mL/min/{1.73_m2} Normal >60 [facility] Comment on above: Result Comment: These results [...] By: #### B MP, CBC, PT #### [facility] [address] [place] [address] Dowel Inspector: Anthony Aguilar MD Glucose [Mass/Vol] 79 mg/dL Normal 70-99 [facility] Comment on above: Performed By: #### B MP, CBC, PT #### [facility] [address] [place] [address] Dowel Inspector: Anthony Aguilar MD Potassium [Moles/Vol] 4.1 mmol/L Normal 3.7-5.3 [facility] Comment on above: Performed By: #### B MP, CBC, PT #### [facility] [address] [place] [address] Dowel Inspector: Anthony Aguilar MD Sodium [Moles/Vol] 138 mmol/L Normal 135-144 [facility] Comment on above: Performed By: #### B MP, CBC, PT #### [facility] [address] [place] [address] Dowel Inspector: Anthony Aguilar MD Urea nitrogen [Mass/Vol] 11 mg/dL Normal 6-20 [facility] Comment on above: Performed By: #### B FIFI, CBC, PT #### [facility] [address] [place] [address] Dowel Inspector: Anthony Aguilar MD CBCon 09-11-2022 Erythrocyte distribution width (RBC) [Ratio] 13.2 % Normal 11.8-14.4 [facility] Comment on above: Performed By: #### B FIFI, CBC, PT #### [facility] [address] [place] [address] Dowel Inspector: Anthony Aguilar MD Hematocrit (Bld) [Volume fraction] 41.6 % Normal 36.3-47.1 [facility] Comment on above: Performed By: #### B MP, CBC, PT #### [facility] [address] [place] [address] Dowel Inspector: Anthony Aguilar MD Hemoglobin (Bld) [Mass/Vol] 13.3 g/dL Normal 11.9-15.1 [facility] Comment on above: Performed By: #### B MP, CBC, PT #### [address] [address] Dowel Inspector: Anthony Aguilar MD MCH (RBC) [Entitic mass] 28.3 pg Normal 25.2-33.5 [facility] Comment on above: Performed By: #### B MP, CBC, PT #### [address] [address] Dowel Inspector: Anthony Aguilar MD MCHC (RBC) [Mass/Vol] 32.0 g/dL Normal 28.4-34.8 [facility] Comment on above: Performed By: #### B MP, CBC, PT #### [address] [address] Dowel Inspector: Anthony Aguilar MD MCV (RBC) [Entitic vol] 88.5 fL Normal 82.6-102.9 [facility] Comment on above: Performed By: #### B MP, CBC, PT #### [address] [address] Dowel Inspector: Anthony Aguilar MD NRBC Automated 0.0 per 100 WBC Normal 0.0 [facility] Comment on above: Performed By: #### B MP, CBC, PT #### [address] [address] Dowel Inspector: Anthony Aguilar MD Platelet mean volume (Bld) [Entitic vol] 9.7 fL Normal 8.1-13.5 [facility] Comment on above: Performed By: #### B MP, CBC, PT #### [facility] [address] [place] [address] Dowel Inspector: Anthony Aguilar MD Platelets (Bld) [#/Vol] 276 10*3/uL Normal 138-453 [facility] Comment on above: Performed By: #### B MP, CBC, PT #### [address] [address] Dowel Inspector: Anthony Aguilar MD RBC (Bld) [#/Vol] 4.70 10*6/uL Normal 3.95-5.11 [facility] Comment on above: Performed By: #### B MP, CBC, PT #### [address] [address] Dowel Inspector: Anthony Aguilar MD WBC (Bld) [#/Vol] 7.4 10*3/uL Normal 3.5-11.3 [facility] Comment on above: Performed By: #### B MP, CBC, PT #### [facility] [address] [place] [address] Dowel Inspector: Anthony Aguilar MD PTon 09-11-2022 INR Coag (PPP) [Relative time] 1.0 {INR} Normal [facility] Comment on above: Result Comment: Therapeutic Range: Moderate Anticoagulant Intensity: INR = 2.0-3.0 High Anticoagulant Intensity: INR = 2.5-3.5 Performed By: #### B MP, CBC, PT #### [facility] [address] [place] [address] Dowel Inspector: Anthony Aguilar MD PT Coag (PPP) [Time] 12.9 s Normal 11.7-14.9 [facility] Comment on above: Performed By: #### B MP, CBC, PT #### [address] [address] Dowel Inspector: Anthony Aguilar MD Surgical Pathologyon 023 Surgical Pathology (NOTE) Path Number: [id number] -- Diagnosis -- GALLBLADDER, CHOLECYSTECTOMY: -CHRONIC CHOLECYSTITIS [...] lesions or periductal lymph nodes are identified. [employer] Machine Feeder sections 1c. tm Microscopic Description Microscopic examination performed. Processing Lab: [address] [phone] Interpretation Performed at [address] [phone] SURGICAL PATHOLOGY CONSULTATION Patient Name: FINA VELÁSQUEZ [facility] Rec: [id number] [facility] [employer] [facility] ANATOMIC PATHOLOGY [address] [place] [phone] [facility] Urine Cultureon 02-08-2022 Bacteria identified Cx Nom (U) Reason for Exam Dysuria Urine ORGANISM: Escherichia coli (O:ESCCOL) Colman Count >100,000 Aerobic LISA Charge (NMIC56) ---- [...] RESISTANT TO ALL B-LACTAM DRUGS. PERFORMED BY: [place] [address] PATHOLOGIST LICENSED FUNERAL DIRECTOR AND EMBALMER SAMIRA WEN M.D. [facility] Comment on above: Performed By: #### C UU #### [address] VC CONSULT FOLLOWUPon 2021 VC CONSULT FOLLOWUP Patient: FINA VELÁSQUEZ Exam Date: 01/08/2022 : 1995 Gender:F Ordering : DR JAMEEL BURGOS M.D. Admission #: [id number] Family : Order #: [id number] CLICK HERE TO VIEW EXAM RADIOLOGY REPORT [...] Hinton M.D. on 01/08/2022 at 10:10 Normal [facility] VC EXT VENOUS RT LIMITEDon 1 03-10-2021 VC EXT VENOUS RT LIMITED Patient: FINA VELÁSQUEZ Exam Date: 01/08/2022 : 1995 Gender:F Ordering : DR JAMEEL BURGOS M.D. Admission #: [id number] Family : Order #: [id number] CLICK HERE TO VIEW EXAM RADIOLOGY REPORT [...] Hinton M.D. on 01/08/2022 at 10:05 Normal [facility] VC ENDOVENOUS ABL 1ST V RTon 12-31-2021 VC ENDOVENOUS ABL 1ST V RT Patient: FINA VELÁSQUEZ Exam Date: 12/31/2021 : 1995 Gender:F Ordering : DR JAMEEL BURGOS M.D. Admission #: [id number] Family : Order #: [id number] CLICK HERE TO VIEW EXAM RADIOLOGY REPORT [...] MD on 12/31/2021 at 11:06 [facility] ED Clinical Summaryon 2021 ED Clinical Summary [facility] ? Urgent Care [address] [place] [address] Clinical Summary PERSON INFORMATION Name: VERNON VELÁSQUEZ Age: 26 Years Sex: FEMALE : 1995 MRN: Acct#: Visit Reason: OTTERBEIN PHYSICAL Arrival: 11/28/2021 10:39:56 Discharge: 11/28/2021 10:59:00 LOS: 000 00:20 Check In: 11/28/2021 10:39:56 Checkout: 11/28/2021 10:59:00 Address: [address] [place] [address] PCP: Provider, None PROVIDER INFORMATION VITALS INFORMATION Vital Sign Triage Latest Temperature Tympanic Temperature Temporal Artery Pulse Rate O2 Sat Respiratory Rate Blood Pressure / / MEDICAL INFORMATION Medications Given: Allergy Information: No known allergies PHYSICIAN DOCUMENTATION DISCHARGE INFORMATION: Discharge Disposition: Eloped Discharge Location: PATIENT EDUCATION INFORMATION Instructions: Follow-Up: DIAGNOSIS: Patient Understands: Comment: [facility] ED Patient Summaryon ED Patient Summary [facility] ? Urgent Care [address] [place] [address] [id number] PATIENT DISCHARGE INSTRUCTIONS Patient Information Name: VERNON [...] with a doctor, nurse practitioner, or physician?s occupational therapist's assistant for ongoing care. If your symptoms [...] so we can reach you if necessary. [facility] Emergency Department has provided you with a complete list of medications post discharge. Please inform your conduit reamer operator/provider of your visit and for further instruction [...] for Disease Control and Prevention October 2013 [facility] VC CONSULT FOLLOWUPon 2021 VC CONSULT FOLLOWUP Patient: FINA VELÁSQUEZ Exam Date: 11/28/2021 : 1995 Gender:F Ordering : DR JAMEEL BURGOS M.D. Admission #: [id number] Family : Order #: [id number] CLICK HERE TO VIEW EXAM RADIOLOGY REPORT [...] Hinton M.D. on 11/28/2021 at 10:04 Normal [facility] VC EXT VENOUS LT LIMITEDon 1 VC EXT VENOUS LT LIMITED Patient: FINA VELÁSQUEZ Exam Date: 11/28/2021 : 1995 Gender:F Ordering : DR JAMEEL BURGOS M.D. Admission #: [id number] Family : Order #: [id number] CLICK HERE TO VIEW EXAM RADIOLOGY REPORT [...] Hinton M.D. on 11/28/2021 at 09:45 Normal [facility] VC ENDOVENOUS ABL 1ST V LTon 11-22-2021 VC ENDOVENOUS ABL 1ST V LT Patient: FINA VELÁSQUEZ Exam Date: 11/22/2021 : 1995 Gender:F Ordering : DR JAMEEL BURGOS M.D. Admission #: [id number] Family : Order #: [id number] CLICK HERE TO VIEW EXAM RADIOLOGY REPORT [...] Burgos MD on 11/22/2021 at 09:04 Normal [facility] VC COMP CONSULTATIONon 10-17 VC COMP CONSULTATION Patient: FINA VELÁSQUEZ Exam Date: 10/17/2021 : 1995 Gender:F Ordering : DR JAMEEL BURGOS M.D. Admission #: [id number] Family : Order #: [id number] CLICK HERE TO VIEW EXAM RADIOLOGY REPORT [...] arterial disease 5. CEAP: C2, EC, AP, [place] PLAN: 1. Continued use of compression stockings [...] M.D. on 10/17/2021 at 12:46 Normal [facility] Basic Metabolic Panelon 04-0 Anion gap [Moles/Vol] 8 mmol/L Low 9 - 17 mmol/L [employer] Calcium [Mass/Vol] 8.6 mg/dL 8.6 - 10. 4 mg/dL [employer] Chloride [Moles/Vol] 106 mmol/L 98 - 107 mmol/L [employer] CO2 [Moles/Vol] 23 mmol/L 20 - 31 mmol/L [employer] Creatinine [Mass/Vol] 0.67 mg/dL 0.50 - 0.90 mg/dL [employer] GFR >60 >60 mL/min [employer] GFR Non- >60 >60 mL/min [employer] GFR/1.73 sq M.predicted MDRD (S/P/Bld) [Vol rate/Area] [employer] Comment on above: Average GFR for 20-2 9 years old: 116 mL/min/1.73sq m Chronic Kidney Disease: <60 mL/min/1.73sq m Kidney failure: <15 mL/min/1.73sq m eGFR calculated using average adult body mass. Additional eGFR calculator available at: http://www.Mobilewalla.BioMCN/multiple_crcl_2011.htm Glucose [Mass/Vol] 83 mg/dL 70 - 99 mg/dL [facility] Interpretation and review of laboratory results Abnormal [facility] Potassium [Moles/Vol] 3.9 mmol/L 3.7 - 5.3 mmol/L [facility] Sodium [Moles/Vol] 137 mmol/L 135 - 144 mmol/L [facility] Urea nitrogen (BldV) [Mass/Vol] 7 mg/dL 6 - 20 mg/dL [facility] CBCon 05-17-2021 Hematocrit (Bld) [Volume fraction] 34.4 % Low 36.3 - 47.1 % [facility] Hemoglobin.gastroin testinal spec 1 Ql (Stl) 11.0 g/dL Low 11.9 - 15.1 g/dL [facility] Interpretation and review of laboratory results Abnormal [facility] MCH (RBC) [Entitic mass] 27.2 pg 25.2 - 33.5 pg [facility] MCHC (RBC) [Mass/Vol] 32.0 g/dL 28.4 - 34.8 g/dL [facility] MCV (RBC) [Entitic vol] 85.1 fL 82.6 - 102.9 fL [facility] NRBC Automated 0.0 0.0 per 100 WBC [facility] Platelet distribution width (Bld) [Ratio] 14.1 % 11.8 - 14.4 % [facility] Platelet mean volume (Bld) [Entitic vol] 10.1 fL 8.1 - 13.5 fL [facility] Platelets (Bld) [#/Vol] 302 10*3/uL [facility] RBC (Bld) [#/Vol] 4.04 10*6/uL 3.95 - 5.1 1 m/uL [facility] WBC (Bld) [#/Vol] 13.7 10*3/uL High [facility] SURGICAL PATHOLOGY REPORTon 05-17-2021 Surgical Pathology Report [...] x 0.5 cm piece of adipose tissue. [employer] Machine Feeder sections 1cs. tm Microscopic Description 1 H&E reviewed. Microscopic examination performed. SURGICAL PATHOLOGY CONSULTATION Patient Name: FINA VELÁSQUEZ [facility] Rec: [id number] Path Number: [id number] [facility] [employer] [facility] ANATOMIC PATHOLOGY [address] [place] [address]. [place], [place] [address] [facility] Basic Metabolic Panelon 04-0 Anion gap [Moles/Vol] 10 mmol/L 9 - 17 mmol/L [employer] Calcium [Mass/Vol] 8.7 mg/dL 8.6 - 10. 4 mg/dL [facility] Chloride [Moles/Vol] 105 mmol/L 98 - 107 mmol/L [employer] CO2 [Moles/Vol] 23 mmol/L 20 - 31 mmol/L [employer] Creatinine [Mass/Vol] 0.75 mg/dL 0.50 - 0.90 mg/dL [facility] GFR >60 >60 mL/min [facility] [employer] GFR Non- >60 >60 mL/min [employer] GFR/1.73 sq M.predicted MDRD (S/P/Bld) [Vol rate/Area] [facility] [employer] Comment on above: Average GFR for 20-2 9 years old: 116 mL/min/1.73sq m Chronic Kidney Disease: <60 mL/min/1.73sq m Kidney failure: <15 mL/min/1.73sq m eGFR calculated using average adult body mass. Additional eGFR calculator available at: http://www.Mobilewalla.BioMCN/multiple_crcl_2012.htm Glucose [Mass/Vol] 132 mg/dL High 70 - 99 mg/dL [facility] Interpretation and review of laboratory results Abnormal [facility] [employer] Potassium [Moles/Vol] 3.5 mmol/L Low 3.7 - 5.3 mmol/L [facility] Sodium [Moles/Vol] 138 mmol/L 135 - 144 mmol/L [facility] Urea nitrogen (BldV) [Mass/Vol] 10 mg/dL 6 - 20 mg/dL [facility] CBC without Diffon Hematocrit (Bld) [Volume fraction] 38.8 % 36.3 - 47.1 % [facility] Hemoglobin.gastroin testinal spec 1 Ql (Stl) 12.6 g/dL 11.9 - 15.1 g/dL [facility] Interpretation and review of laboratory results Abnormal [facility] MCH (RBC) [Entitic mass] 27.2 pg 25.2 - 33.5 pg [facility] MCHC (RBC) [Mass/Vol] 32.5 g/dL 28.4 - 34.8 g/dL [facility] MCV (RBC) [Entitic vol] 83.8 fL 82.6 - 102.9 fL [facility] NRBC Automated 0.0 0.0 per 100 WBC [facility] Platelet distribution width (Bld) [Ratio] 13.9 % 11.8 - 14.4 % [facility] Platelet mean volume (Bld) [Entitic vol] 9.8 fL 8.1 - 13.5 fL [facility] Platelets (Bld) [#/Vol] 340 10*3/uL [facility] RBC (Bld) [#/Vol] 4.63 10*6/uL 3.95 - 5.1 1 m/uL [facility] WBC (Bld) [#/Vol] 15.0 10*3/uL High [facility] POC Glucose Fingerstickon Glucose [Mass/Vol] 77 mg/dL 65 - 105 mg/dL [facility][note 3] POCT urine pregnancyon 05-16 Beta HCG ( test) Ql (U) Negative NEGATIVE [facility] Comment on above: Specimens with hCG l evels near the threshold of the test (25 mIU/mL) may give a negative or indeterminate result. In such cases, another test should be performed with a new specimen in 48-72 hours. If early is suspected clinically in this setting, correlation with quantitative serum b-hCG level is suggested. [facility] [id number] 05-15-2021 SARS-CoV-2 (COVID-19) RNA BECCA+probe Ql (Unsp spec) Normal [facility] Comment on above: Performed By: #### C OVID #### [facility] [address] [place], [place] [id number] Dowel Inspector: Anthony Aguilar MD [facility] [address] [place] [address] [place] [address] Dowel Inspector: Jameel Lawler MD SARS-CoV-2 (COVID-19) RNA BECCA+probe Ql (Unsp spec) Not detected Normal NOTDET [facility] Comment on above: Result Comment: The specimen is NEGATIVE for SARS-CoV-2, the novel coronavirus associated with COVID-19. A negative result does not rule out COVID-19. Lucrecia SARS-CoV-2 for use on the [employer] is a real-time RT-PCR test intended [...] this assay. Fact sheet for Healthcare Providers: https://www.fda.gov/media/273992/download Fact sheet for Patients: https://www.fda.gov/media/572408/download METHODOLOGY: RT-PCR Performed By: #### C OVID #### [facility] [address] [place], [place] [id number] Dowel Inspector: Anthony Aguilar MD [facility] [address] [place] [address] Dowel Inspector: Jameel Lawler MD [id number] 05-14-2021 SARS-CoV-2 (COVID-19) RNA BECCA+probe Ql (Unsp spec) .NASOPHARYNGEAL SWAB Normal [facility] Comment on above: Performed By: #### C OVID #### [facility] [address] [place], [place] [id number] Dowel Inspector: Anthony Aguilar MD [facility] [address] [place] [address] Dowel Inspector: Jameel Lawler MD Nicotine, Bloodon 05-05-2021 6-AS-Slxpftwi <2 ng/mL [facility] h Cotinine <2 ng/mL [facility] Nicotine <2 ng/mL [facility] Comment on above: (NOTE) Consistent with [...] developed and its performance characteristics determined by [employer]. It has not been cleared or approved by the [place] Food and Drug Administration. This test was performed in a CLIA certified laboratory and is intended for clinical purposes. Performed By: [facility] [address] [place] [address] Picker/Puller: Yara Rodriguez MD [facility] [employer] EKG 12 LeadOrdered By: Diaz Conway on 05-03-2021 Atrial Rate 72 BPM [employer] Work Phone: P Chadwicks 45 degrees [employer] Work Phone: P-R Interval 142 ms [employer] Work Phone: Q-T Interval 376 ms [employer] Work Phone: QRS Duration 100 ms [employer] Work Phone: QTc Calculation (Bazett) 411 ms [employer] Work Phone: R [place]wicks 22 degrees [employer] Work Phone: T [place] 32 degrees [employer] Work Phone: Ventricular Rate 72 BPM [facility] Work Phone: [employer] Work Phone: EKG 12 Leadon 05-03-2021 Normal sinus rhythm Normal ECG No previous ECGs available [facility] Diaz Elias MD - 05/03/2021 Normal sinus rhythm Normal ECG No previous ECGs available [employer] Work Phone: APTTon 05-02-2021 aPTT Coag (Bld) [Time] 25.0 s [employer] Comment on above: IV Heparin Therapy Range: 48.6-77.8 Basic Metabolic Panelon 04-11 Anion gap [Moles/Vol] 15 mmol/L 9 - 17 mmol/L [employer] Calcium [Mass/Vol] 9.8 mg/dL 8.6 - 10. 4 mg/dL [employer] Chloride [Moles/Vol] 102 mmol/L 98 - 107 mmol/L [employer] CO2 [Moles/Vol] 21 mmol/L 20 - 31 mmol/L [employer] Creatinine [Mass/Vol] 0.55 mg/dL 0.50 - 0.90 mg/dL [employer] GFR >60 >60 mL/min [employer] GFR Non- >60 >60 mL/min [employer] GFR/1.73 sq M.predicted MDRD (S/P/Bld) [Vol rate/Area] [employer] Comment on above: Average GFR for 20-2 9 years old: 116 mL/min/1.73sq m Chronic Kidney Disease: <60 mL/min/1.73sq m Kidney failure: <15 mL/min/1.73sq m eGFR calculated using average adult body mass. Additional eGFR calculator available at: http://www.Mobilewalla.BioMCN/multiple_crcl_2012.htm Glucose [Mass/Vol] 85 mg/dL 70 - 99 mg/dL [facility] Potassium [Moles/Vol] 4.5 mmol/L 3.7 - 5.3 mmol/L [facility] Sodium [Moles/Vol] 138 mmol/L 135 - 144 mmol/L [facility] Urea nitrogen (BldV) [Mass/Vol] 11 mg/dL 6 - 20 mg/dL [facility] CBCon 05-02-2021 Hematocrit (Bld) [Volume fraction] 41.0 % 36.3 - 47.1 % [facility] Hemoglobin.gastroin testinal spec 1 Ql (Stl) 12.9 g/dL 11.9 - 15.1 g/dL [facility] MCH (RBC) [Entitic mass] 26.9 pg 25.2 - 33.5 pg [facility] MCHC (RBC) [Mass/Vol] 31.5 g/dL 28.4 - 34.8 g/dL [facility] MCV (RBC) [Entitic vol] 85.6 fL 82.6 - 102.9 fL [facility] NRBC Automated 0.0 0.0 per 100 WBC [facility] Platelet distribution width (Bld) [Ratio] 13.7 % 11.8 - 14.4 % [facility] Platelet mean volume (Bld) [Entitic vol] 9.8 fL 8.1 - 13.5 fL [facility] Platelets (Bld) [#/Vol] 380 10*3/uL [facility] RBC (Bld) [#/Vol] 4.79 10*6/uL 3.95 - 5.1 1 m/uL [facility] WBC (Bld) [#/Vol] 11.2 10*3/uL [facility] No Panel Informationon 05-02 [facility] Protime-INRon 05-02-2021 INR Coag (Bld) [Relative time] 1.0 {INR} [facility] Comment on above: Therapeutic Range: Moderate Anticoagulant Intensity: INR = 2.0-3.0 High Anticoagulant Intensity: INR = 2.5-3.5 PT Coag (PPP) [Time] 10.6 s [facility] XR CHEST (2 VW)on 05-02-2021 No [...] No free air. IMPRESSION: No acute process. [employer] Phone: Radiology Study observation (narrative) [employer] Phone: XR CHEST (2 VW)Ordered By: Santos Florez on 05-02-2021 [employer] Phone: [id number] 12-05-2020 SARS-CoV-2 (COVID-19) RNA BECCA+probe Ql (Unsp spec) Normal [facility] Comment on above: Performed By: #### C OVID #### [employer] [address] [place] [address] Dowel Inspector: Anthony Aguilar MD [facility] [address] [place] [address] Dowel Inspector: Jameel Lawler MD SARS-CoV-2 (COVID-19) RNA BECCA+probe Ql (Unsp spec) Not detected Normal [facility] Comment on above: Result Comment: The specimen is NEGATIVE for SARS-CoV-2, the novel coronavirus associated with COVID-19. A negative result does not rule out COVID-19. Lucrecia SARS-CoV-2 for use on the [employer]/8800 [employer] is a real-time RT-PCR test intended [...] this assay. Fact sheet for Healthcare Providers: https://www.fda.gov/media/197171/download Fact sheet for Patients: https://www.fda.gov/media/940414/download METHODOLOGY: RT-PCR Performed By: #### C OVID #### [facility] [address] [place], [place] [id number] Dowel Inspector: Anthony Aguilar MD [facility] [address] [place] [address] [place] [address] Dowel Inspector: Jameel Lawler MD [id number] 12-04-2020 SARS-CoV-2 (COVID-19) RNA BECCA+probe Ql (Unsp spec) .NASOPHARYNGEAL SWAB Normal [facility] Comment on above: Performed By: #### C OVID #### [facility] [address] [place] [address] Dowel Inspector: Anthony Aguilar MD [facility] [address] [place] [address] [place] [address] Dowel Inspector: Jameel Lawler MD Vital Signs Date Time Vital Sign Value Performing Clinician Facility 02-07-2023 13:34-0500 Body height 170.2 cm Tatiana Yap MD Work Phone: [facility] 02-07-2023 13:34-0500 Body mass index (BMI) [Ratio] 34.14 kg/m2 Tatiana Yap MD Work Phone: [facility] 02-07-2023 13:34-0500 Body weight 98.88 kg Tatiana Yap MD Work Phone: [facility] 02-07-2023 13:34-0500 Diastolic blood pressure 83 mm[Hg] Tatiana Yap MD Work Phone: [employer] 02-07-2023 13:34-0500 Heart rate 76 /min Tatiana Yap MD Work Phone: [employer] 02-07-2023 13:34-0500 Systolic blood pressure 126 mm[Hg] Tatiana Yap MD Work Phone: [employer] 10-12-2022 10:10-0400 Body height 170.18 cm Lilia Willow Other [facility] Other 10-12-2022 10:10-0400 Body mass index (BMI) [Ratio] 32.86 kg/m2 Lilia Willow Other [facility] Other 10-12-2022 10:10-0400 Body temperature 99 [degF] Lilia Willow Other [facility] Other 10-12-2022 10:10-0400 Body weight 95.17 kg Lilia Willow Other [facility] Other 10-12-2022 10:10-0400 Diastolic blood pressure 74 mm[Hg] Lilia Willow Other [facility] Other 10-12-2022 10:10-0400 SaO2% (BldA) [Mass fraction] 98 % Lilia Willow Other [facility] Other 10-12-2022 10:10-0400 Systolic blood pressure 118 mm[Hg] Lilia Willow Other [facility] Other 05-17-2021 15:52-0400 Body temperature 98.49 [degF] Patricia Antoinette SOLITARIO Work Phone: [employer] 04-07-2022 15:52-0400 Diastolic blood pressure 97 mm[Hg] Patricia Curry DO Work Phone: [employer] 05-17-2021 15:52-0400 Heart rate 70 /min Patricia Curry DO Work Phone: [employer] 05-17-2021 15:52-0400 Respiratory rate 18 /min Patricia Curry [employer] Work Phone: [employer] 05-17-2021 15:52-0400 SaO2% (BldA) [Mass fraction] 99 % Patricia Curry [employer] Work Phone: [employer] 05-17-2021 15:52-0400 Systolic blood pressure 138 mm[Hg] Patricia Curry DO Work Phone: [employer] 05-16-2021 06:06-0400 Body mass index (BMI) [Ratio] 43.16 kg/m2 Patricia Curry [employer] Work Phone: [employer] 05-16-2021 06:06-0400 Body weight 125 kg Patricia Curry [employer] Work Phone: [employer] 05-16-2021 05:57-0400 Body height 170.2 cm Patricia Curry [employer] Work Phone: [employer] 05-02-2021 10:35-0400 Body height 170.2 cm Stvz 1 [employer] 05-02-2021 10:35-0400 Body mass index (BMI) [Ratio] 44.95 kg/m2 Stvz 1 [employer] 05-02-2021 10:35-0400 Body temperature 97.2 [degF] Stvz 1 [employer] 05-02-2021 10:35-0400 Body weight 130.18 kg Stvz 1 [employer] 05-02-2021 10:35-0400 Diastolic blood pressure 85 mm[Hg] Stvz 1 [employer] 05-02-2021 10:35-0400 Heart rate 66 /min Stvz 1 [employer] 05-02-2021 10:35-0400 Respiratory rate 18 /min Stvz 1 [employer] 05-02-2021 10:35-0400 SaO2% (BldA) [Mass fraction] 99 % Stvz 1 [employer] 05-02-2021 10:35-0400 Systolic blood pressure 122 mm[Hg] Stvz 1 [employer] 12-04-2020 17:00-0400 Body height 170.18 cm Ale Ginty Other [facility] Other 12-04-2020 17:00-0400 Body mass index (BMI) [Ratio] 43.85 kg/m2 Ale Ginty Other [facility] Other 12-04-2020 17:00-0400 Body temperature 97.4 [degF] Ale Ginty Other [facility] Other 12-04-2020 17:00-0400 Body weight 127.01 kg Ale Ginty Other [facility] Other 12-04-2020 17:00-0400 SaO2% (BldA) [Mass fraction] 99 % Ale Ginty Other [facility] Other Encounters Encounter Date Encounter Type Care Provider Facility Start: 02-07-2023 End: 02-07-2023 ambulatory [facility] Start: 02-07-2023 End: 02-07-2023 Office consultation new/estab patient 60 min Tatiana Yap MD Work Phone: [facility] Comment on above: Hypertension affecti ng in second trimester (Primary Dx); 16 weeks gestation of ; Dichorionic diamniotic twin in second trimester; H/O gastric sleeve Start: 02-05-2023 End: 02-05-2023 ambulatory NIGEL HOPE Not Available Start: 02-05-2023 Chart abstracting Tatiana Yap MD Work Phone: [facility] Start: 02-04-2023 End: 02-04-2023 ambulatory MARGOT Sudheer YAW Not Available Start: 01-15-2023 End: 01-15-2023 ambulatory NIGEL HOPE Not Available Start: 01-07-2023 End: 01-07-2023 ambulatory MARGOT Sudheer GUPTAE Not Available Start: 12-20-2022 End: 12-21-2022 ambulatory NIGEL HOPE Not Available Start: 10-12-2022 End: 10-12-2022 ambulatory Lilia Daugherty Other [facility] Other Start: 10-12-2022 Office outpatient vi sit 15 minutes Lliia Daugherty [facility] Start: 09-11-2022 End: 09-11-2022 ambulatory PATRICIA Alka [facility] Start: 02-10-2022 End: 02-10-2022 ambulatory lAe Shields Other [facility] Other Start: 02-10-2022 Telephone encounter Ale Shields [facility] [address] Start: 02-08-2022 End: 02-08-2022 ambulatory Ale Shields Facility:[facility] Start: 02-08-2022 End: 02-08-2022 ambulatory LAURA Shields Work Phone: [facility] Work Phone: Start: 02-08-2022 End: 02-08-2022 Departed Referred LAURA Shields Work Phone: [facility] [place] Work Phone: Start: 01-08-2022 End: 01-09-[address] JAMEEL BURGOS Facility:[facility] Start: 12-31-2021 End: 01-01-[address] JAMEEL BURGOS Facility:[facility] Start: 11-28-2021 End: 11-28-2021 ambulatory Giuliana Provider Facility:[facility] Start: 11-28-2021 End: 11-29-[address] [...] 05-14-2021 End: 05-19-2021 ambulatory CYN OKEEFE [facility] Start: 05-02-2021 End: 05-06-2021 Subsequent hospital visit by physician Dwight Pat Rm 1 [facility] Pre-Admit Testing Start: 12-04-2020 End: 12-09-2020 ambulatory CYN OKEEFE [facility] Start: 12-04-2020 Office outpatient vi sit 15 minutes Ale Kimbelry [facility] Start: 10-20-2020 End: 10-20-2020 Subsequent hospital visit by physician Patricia Curry DO Work Phone: [facility] [place] Start: 09-06-2020 End: 09-07-2020 ambulatory IKE ANGEL [facility] Start: 09-06-2020 End: 09-06-2020 Subsequent hospital visit by physician Henrietta Sleep Rm 1 [facility] Comment on above: LYNN (obstructive sle ep apnea) Start: 05-28-2017 End: 05-29-2017 Ambulatory Neo Anderson Facility:[id number] Procedures Date Procedure Procedure Detail Performing [...] metabolic pane l calcium total Patricia Curry [employer] Work Phone: Start: 05-16-2021 End: 05-16-2021 Laps gstrc rstrictiv px longitudinal gastrectomy Patricia Curry DO Work Phone: Start: 05-16-2021 Glucose blood reagen t strip Patricia Curry DO Work Phone: Start: 05-16-2021 Urine test visual color cmprsn meths Patricia Curry [employer] Work Phone: Start: 05-02-2021 Assay of nicotine Sim Curry [employer] Work Phone: Start: 05-02-2021 Basic metabolic pane l calcium total Patricia Curry DO Work Phone: Start: 05-02-2021 Radiologic exam ches t 2 views Patricia Curry DO Work Phone: Start: 05-02-2021 Ecg routine ecg w/le ast 12 lds i&r only Patricia Curry [employer] Work Phone: Start: 06-14-2020 Microscopic observat ion [Identifier] in Cervix by Cyto stain Tatiana Yap MD Work Phone: Plan of Treatment Date Care Activity Detail Author Start: 02-08-2024 Adult BMI Screening Adult BMI Screen ing [facility] Start: 02-08-2024 Tobacco Screening Tobacco Screening [facility] [employer] [facility] Start: 01-04-2024 Adult BMI Screening Adult BMI Screen ing [facility] Start: 01-04-2024 Tobacco Screening Tobacco Screening [facility] Start: 08-11-2023 DTaP,Tdap and Td Vaccines (7 - Td or Tdap) DTaP,Tdap and Td Vaccines (7 - Td or Tdap) [facility] Start: 08-11-2023 DTaP/Tdap/Td vaccine (7 - Td or Tdap) DTaP/Tdap/Td vaccine (7 - Td or Tdap) [facility] Start: 06-15-2023 Screening for malign ant neoplasm of cervix Pap Smear [facility] Start: 03-05-2023 End: 03-05-2023 Patient encounter procedure 03/05/2023 11:30 AM EST Office Visit [facility]- Medicine at [facility] [address] [place] [phone] Bentley Sanchez MD [address] [place] [address] [facility] at [facility] Start: 03-05-2023 End: 03-05-2023 Patient encounter procedure 03/05/2023 9:30 AM EST Appointment [facility] [address] [place] [phone] [facility] Start: 02-07-2023 End: 02-07-2023 Patient encounter procedure [facility] Start: 10-11-2022 Influenza vaccination Influenza Vacc ine [facility] Start: 09-19-2022 Adult BMI Follow Up Plan Adult BMI Follow Up Plan [facility] Start: 02-08-2022 Bacteria identified in Urine by Culture Urine Culture [facility] Start: 01-08-2022 Hemoglobin A1c measurement A1C test (Diabetic or Prediabetic) [facility] Start: 10-11-2021 Influenza vaccination Flu vacc ine (Season Ended) [facility] Start: 07-14-2021 Hemoglobin A1c measurement A1C test (Diabetic or Prediabetic) [facility] Work Phone: Start: 06-18-2021 End: 06-18-2021 Patient encounter procedure 06/18/2021 Office Visit BariatricDeann Roca, [employer] - [employer] [address] [place] [address] [facility] [place] Start: 05-24-2021 End: 05-24-2021 Patient encounter procedure 05/24/2021 Office Visit Patricia Islas DO [address] [place] [address] [facility] Invasive Bariatric Surg Start: 05-16-2021 End: 05-16-2021 Admission to same day surgery center 05/16/2021 Surgery IP Unit Patricia Curry DO [address] [place] [address] XI ROBOTIC LAPAROSCOPIC GASTRECTOMY SLEEVE , LIVER BIOPSY, EGD- GI SCHEDULED [facility] Comment on above: XI ROBOTIC LAPAROSCO PIC GASTRECTOMY SLEEVE , LIVER BIOPSY, EGD- GI SCHEDULED Start: 05-16-2021 End: 05-16-2021 Laps gstrc rstrictiv px longitudinal gastrectomy GASTRECTOMY SLEEVE LAPAROSCOPIC ROBOTIC MORBID OBESITY, OBSTRUCTIVE SLEEP APNEA, GERD 05/16/2021 7:10 AM EDT [facility] Start: 05-16-2021 Subsequent hospital visit by physician 05/16/2021 Hospital Encounter IP Unit Patricia Curry DO [address] [place] [address] [facility] Start: 05-13-2021 End: 05-13-2021 Patient encounter procedure 05/13/2021 Appointment Pre-Admission Testing [facility] PRE ADMIT Start: 05-10-2021 End: 05-10-2021 Patient encounter procedure 05/10/2021 Office Visit Patricia Islas DO [address] [place] [phone] [facility] Start: 11-22-2020 End: 11-22-2020 Nursing evaluation of patient and report 11/22/2020 Nurse Only Bariatrics [facility] Start: 11-06-2020 End: 11-06-[address] [facility] Start: 11-03-2020 End: 11-03-2020 Patient encounter procedure 11/03/2020 Office Visit Bariatrics Deann Navarro, [employer] SUPERVISOR - [employer] [address] [facility] [address] [place] [phone] [facility] [place] Start: 10-11-2020 Influenza vaccination Flu vaccine (# 1) [facility] Start: 09-28-2020 End: 09-28-2020 Patient encounter procedure 09/28/2020 Office Visit Bariatrics Deann Navarro, [employer] SUPER[employer] - [employer] [address] [facility] [address] [place] [phone] [facility] Start: 09-01-2015 Screening for malign ant neoplasm of cervix [facility] Start: 2009 HIV screening HIV screen [facility] Start: 2006 COVID-19 Vaccine (1) COVID-19 Vaccin e (1) [facility] Work Phone: Start: 2006 Depression Screen Depression Screen [facility] Start: 2006 Depression Screening Depression Scre [facility] Start: 2005 HPV vaccine (1 - 2-d ose series) HPV vaccine (1 - 2-dose series) [facility] Start: 2000 Pneumococcal 0-64 ye ars Vaccine (1 of 2 - PPSV23) Pneumococcal 0-64 years Vaccine (1 of 2 - PPSV23) [facility] Work Phone: Start: 09-01-1999 COVID-19 Vaccine (1) COVID-19 Vaccin e (1) [facility] Start: 09-01-1995 Varicella vaccine (1 of 2 - 2-dose childhood series) Varicella vaccine (1 of 2 - 2-dose childhood series) [employer] Start: 1994 Hepatitis C screening Hepatitis C [facility] [employer] End: 09-06-2020 Baseline Diagnostic Sleep Study Baseline Diagnostic Sleep Study Sleep Center Routine LYNN (obstructive sleep apnea) 1 Occurrences starting 09/06/2020 until 09/06/2020 [employer] Phone: Comment on above: 1 Occurrences starti ng 09/06/2020 until 09/06/2020 End: 02-08-2024 Calcium [Mass/volume] in Serum or Plasma Calcium Lab Routine 16 weeks gestation of H/O gastric sleeve 1 Occurrences starting 02/07/2023 until 02/08/2024 [employer] Comment on above: 1 Occurrences starti ng 02/07/2023 until 02/08/2024 End: 02-08-2024 CBC panel - Blood by Automated count CBC without diff Lab Routine Hypertension affecting in second trimester 16 weeks gestation of Dichorionic diamniotic twin in second trimester 1 Occurrences starting 02/07/2023 until 02/08/2024 [employer] Work Phone: Comment on above: 1 Occurrences starti ng 02/07/2023 until 02/08/2024 End: 02-08-2024 Comprehensive metabolic 2000 panel - Serum or Plasma Comprehensive metabolic panel Lab Routine Hypertension affecting in second trimester 16 weeks gestation of Dichorionic diamniotic twin in second trimester 1 Occurrences starting 02/07/2023 until 02/08/2024 [employer] Comment on above: 1 Occurrences starti ng 02/07/2023 until 02/08/2024 Continuous pulse oximetry Pulse oximetry, continuous Respiratory Care Routine Every 4hr until discontinued starting 05/16/2021 [employer] Phone: Comment on above: Every 4hr until disc ontinued starting 05/16/2021 End: 02-08-2024 Cyanocobalamin vitamin b-12 Vitamin B12 Lab Routine 16 weeks gestation of H/O gastric sleeve 1 Occurrences starting 02/07/2023 until 02/08/2024 [employer] Comment on above: 1 Occurrences starti ng 02/07/2023 until 02/08/2024 End: 02-08-2024 ECG 12 lead ECG 12 lead ECG Routine Hypertension affecting in second trimester 16 weeks gestation of Dichorionic diamniotic twin in second trimester 1 Occurrences starting 02/07/2023 until 02/08/2024 [facility] Comment on above: 1 Occurrences starti ng 02/07/2023 until 02/08/2024 End: 02-08-2024 Folate Folate Lab Routine 16 weeks gestation of H/O gastric sleeve 1 Occurrences starting 02/07/2023 until 02/08/2024 [facility] Comment on above: 1 Occurrences starti ng 02/07/2023 until 02/08/2024 End: 02-08-2024 Iron and TIBC Iron and TIBC Lab Routine 16 weeks gestation of H/O gastric sleeve 1 Occurrences starting 02/07/2023 until 02/08/2024 [facility] Comment on above: 1 Occurrences starti ng 02/07/2023 until 02/08/2024 End: 02-08-2024 LDH LDH Lab Routine Hypertension affecting in second trimester 16 weeks gestation of Dichorionic diamniotic twin in second trimester 1 Occurrences starting 02/07/2023 until 02/08/2024 [facility] Comment on above: 1 Occurrences starti ng 02/07/2023 until 02/08/2024 End: 02-08-2024 Natriuretic peptide B [Mass/volume] in Blood B-type natriuretic peptide Lab Routine Hypertension affecting in second trimester 16 weeks gestation of Dichorionic diamniotic twin in second trimester 1 Occurrences starting 02/07/2023 until 02/08/2024 [facility] Comment on above: 1 Occurrences starti ng 02/07/2023 until 02/08/2024 Oxygen therapy [[facility] Data Set] Initiate Oxygen Therapy Protocol Respiratory Care Routine As Needed until discontinued starting 05/16/2021 [employer] Phone: Comment on above: As Needed until disc ontinued starting 05/16/2021 End: 02-08-2024 Protein creat ratio Protein creat ratio Lab Routine Hypertension affecting in second trimester 16 weeks gestation of Dichorionic diamniotic twin in second trimester 1 Occurrences starting 02/07/2023 until 02/08/2024 [facility] Comment on above: 1 Occurrences starti ng 02/07/2023 until 02/08/2024 End: 02-08-2024 Protein, urine, 24 hour Protein, urine, 24 hour Lab Routine Hypertension affecting in second trimester 16 weeks gestation of Dichorionic diamniotic twin in second trimester 1 Occurrences starting 02/07/2023 until 02/08/2024 [facility] Comment on above: 1 Occurrences starti ng 02/07/2023 until 02/08/2024 Spirometry panel Incentive isiah metry Respiratory Care Routine Every 2hr while awake until discontinued starting 05/16/2021 [employer] Phone: Comment on above: Every 2hr while awak e until discontinued starting 05/16/2021 Surgical Pathology Surgical Path ology Lab Routine Release Upon Ordering for 1 Occurrences starting 05/16/2021 [employer] Phone: Comment on above: Release Upon Orderin g for 1 Occurrences starting 05/16/2021 End: 02-08-2024 Thiamin Vitamin B1, whole blood Thiamin Vitamin B1, whole blood Lab Routine 16 weeks gestation of H/O gastric sleeve 1 Occurrences starting 02/07/2023 until 02/08/2024 [employer] Comment on above: 1 Occurrences starti ng 02/07/2023 until 02/08/2024 End: 02-08-2024 Urate [Mass/volume] in Serum or Plasma Uric acid Lab Routine Hypertension affecting in second trimester 16 weeks gestation of Dichorionic diamniotic twin in second trimester 1 Occurrences starting 02/07/2023 until 02/08/2024 [facility] Comment on above: 1 Occurrences starti ng 02/07/2023 until 02/08/2024 End: 02-08-2024 Vitamin D 25 hydroxy Vitamin D 25 hydroxy Lab Routine 16 weeks gestation of H/O gastric sleeve 1 Occurrences starting 02/07/2023 until 02/08/2024 [facility] Comment on above: 1 Occurrences starti ng 02/07/2023 until 02/08/2024 Immunizations Immunization Date Immunization Notes Care Provider Jerry luther 11-12-2016 tuberculin skin test ; purified protein derivative solution, intradermal Tatiana Yap MD Work Phone: [facility] 08-10-2013 tetanus toxoid, redu yemi diphtheria toxoid, and acellular pertussis vaccine, adsorbed Tatiana Yap MD Work Phone: [facility] 10-03-1999 diphtheria, tetanus toxoids and acellular pertussis vaccine Tatiana Yap MD Work Phone: [facility] 10-03-1999 hepatitis B vaccine, pediatric or pediatric/adolescent dosage Tatiana Yap MD Work Phone: [facility] 10-03-1999 measles, mumps and rubella virus vaccine Tatiana Yap MD Work Phone: [facility] 10-03-1999 poliovirus vaccine, inactivated Tatiana Yap MD Work Phone: [facility] 01-14-1996 diphtheria, tetanus toxoids and acellular pertussis vaccine Tatiana Yap MD Work Phone: [facility] 01-14-1996 haemophilus influenz ae type b vaccine, conjugate unspecified formulation Tatiana Yap MD Work Phone: [facility] 01-14-1996 measles, mumps and rubella virus vaccine Tatiana Yap MD Work Phone: [facility] 05-21-1995 diphtheria, tetanus toxoids and acellular pertussis vaccine Tatiana Yap MD Work Phone: [facility] 05-21-1995 haemophilus influenz ae type b vaccine, conjugate unspecified formulation Tatiana Yap MD Work Phone: [facility] 05-21-1995 poliovirus vaccine, inactivated Tatiana Yap MD Work Phone: [facility] 02-21-1995 diphtheria, tetanus toxoids and acellular pertussis vaccine Tatiana Yap MD Work Phone: [facility] 02-21-1995 haemophilus influenz ae type b vaccine, conjugate unspecified formulation Tatiana Yap MD Work Phone: [facility] 02-21-1995 hepatitis B vaccine, pediatric or pediatric/adolescent dosage Tatiana Yap MD Work Phone: [facility] 02-21-1995 poliovirus vaccine, inactivated Tatiana Yap MD Work Phone: [facility] 1994 diphtheria, tetanus toxoids and acellular pertussis vaccine Tatiana Yap MD Work Phone: [facility] 1994 haemophilus influenz ae type b vaccine, conjugate unspecified formulation Tatiana aYp MD Work Phone: [facility] 1994 hepatitis B vaccine, pediatric or pediatric/adolescent dosage Tatiana Yap MD Work Phone: [facility] 1994 poliovirus vaccine, inactivated Tatiana Yap MD Work Phone: [facility] 1994 hepatitis B vaccine, pediatric or pediatric/adolescent dosage Tatiana Ypa MD Work Phone: [facility] Payers Date Payer Category Payer Medicaid [id number] 2022 Medicaid [place] [id number] 2022-Present [address] [place] [address] [id number] 2022 Self-pay 2019 Unknown [id number]. [id number] 1994 Unknown [id number] 2.16.840.1.479114.3.579.2. 173 1994 Unknown [id number] 2.16.840.1.125405.3.579.2. 173 1994 Unknown [id number] 2.16.840.1.542117.3.579.2. 173 1994 Unknown [id number] 2.16.840.1.376796.3.579.2. 593 1994 Unknown [id number] 2.16.840.1.202052.3.579.2. 593 1994 Unknown [id number] 2.16.840.1.141866.3.579.2. 593 1994 Unknown [id number] 2.16.840.1.212183.3.579.2. 593 1994 Unknown [id number] 2.16.840.1.765117.3.579.2. 593 1994 Unknown [id number] 2.16.840.1.757047.3.579.2. 593 1994 Unknown [id number] 2.16.840.1.541824.3.579.2. 175 1994 Unknown [id number] 2.16.840.1.131306.3.579.2. 1259 1994 Unknown [id number] 2.16.840.1.200077.3.579.2. 1259 1994 Unknown [id number] 2.16.840.1.089565.3.579.2. 1259 1994 Unknown [id number] 2.16.840.1.752332.3.579.2. 1259 1994 Unknown [id number] 2.16.840.1.220085.3.579.2. 1259 1994 Unknown [id number] 2.16.840.1.567252.3.579.2. 1286 1994 Unknown [id number] 2.16.840.1.295256.3.579.2. 1286 1959 Private Health Insurance [id number] 1.2.840.645909.1.13.239.2. [id number] Private Health Insurance [facility] [place] [id number] Unknown [id number] 2.16.840.1.344552.3.579.2. 531 Social History Date Type Detail Facility Start: 09-01-2020 End: 09-28-2020 Tobacco smoking status [facility] Current every day smoker [employer] Phone: Start: 03-20-2020 End: 09-01-2020 Cigarettes smoked current (pack per day) - Reported [employer] Start: 09-01-2020 End: 01-19-2021 Tobacco use and exposure Never used [employer] Phone: Start: 09-01-2020 End: 09-28-2020 Alcohol intake Current drinker of alcohol (finding) [employer] Phone: Start: 12-23-2019 Alcohol Comment weekly [employer] Phone: Start: 1995 Sex Assigned At Not on file [employer] Phone: Start: 04-22-2021 End: 05-16-2021 Exposure to SARS-CoV-2 (event) Not sure [employer] Exposure to SARS-CoV -2 (event) Yes [employer] Start: 01-19-2021 End: 02-05-2023 Tobacco smoking status [facility] Ex-smoker [employer] End: 11-19-2020 History of tobacco use Current smoker [employer] Phone: Start: 05-02-2021 End: 02-07-2023 Alcohol intake Ex-drinker (finding) [employer] Phone: Start: 08-17-2018 End: 03-20-2020 [facility] Start: 1995 Sex Assigned At Female F [facility] End: 02-11-2020 [facility] of tobacco use [facility] History of tobacco use Tobacco U se Types Packs/Day Years Used Date Smoking Tobacco: Former Cigarettes Quit: 2020 Vaping/E-cigarettes Smokeless Tobacco: Former Quit: 11/06/2020 [facility] Start: 02-05-2023 Tobacco use and exposure Forme r smokeless tobacco user [facility] End: 11-06-2020 History of tobacco use User of smokeless tobacco [facility] Frequency of Communication with Friends and Family More than three times a week [facility] Start: 08-17-2018 Education 12 [facility] Start: 05-18-2022 Alcohol Comment social, every other weekend [facility] Start: 10-31-2022 [facility] Clinical Notes 12-04-2020 to 02-07-2023 Sangita [...] Yes Have you been seen here at [facility] in a previous ? No Recent ER visits or hospitalizations? No Bring blood sugar log or meter with you today? (Please bring them with you for every visit at [facility]) N/A Traveled outside the country in [...] TESTS AND ULTRASOUND REPORTS: Referral records and [facility] chart were reviewed Pertinent Ultrasound findings are [...] operators who are performing tests using either [employer] or [employer] systems and is limited to laboratories that [...] repeat. Fact Sheet for Healthcare Providers: https://www.f da.gov/media/978942/download Fact Sheet for Patients: https://www.fda.gov/media/701756/d ownload HABITS: Patient activity no restrictions, diet [...] a but with an anticipation of excellent correction outcomes. In regards to the spontaneous processes, [...] previously recommended threshold of 160/110. Reference: PMID: 46217036, 2021. Blood pressures do increase as progresses [...] preeclampsia prevention as is recommended by the [employer]ne[employer] Committee Opinion No. 743. [...] aspirin vs 10.3% no aspirin, p=0.45) (PMBID: 10474312). Given well-established benefits baby aspirin for the prevention of preeclampsia, I recommend initiating baby aspirin even in the setting of history of Joe-en-Y surgery. Micronutrient Dosing Recommendations: Calcium: recommend 1000-1200mg daily; if deficient, recommend 1800-76156 mg PO daily in divided doses Vitamin [...] sooner if clinically indicated Follow up in [facility] in 4 weeks for anatomy and clinic follow-up DISPOSITION: At this point the patient is in complete care of her spring upholsterer. Patient does have ultrasound and office visit [...] procedures Referring and communicating with other health youth career specialist (not separately reported) Documenting clinical information in the electronic or other health record Tatiana Yap MD Maternal- Medicine [facility] [address] [facility] 1st [place] [address] [facility], the CDC, and other organizations representing maternal and public health professionals recommend that , , and lactating people and those considering receive the COVID-19 vaccination. Vaccination is the best method to reduce maternal and complications of SARS-CoV-2 infection. This document was created with [employer] technology. Though I make every effort to review the dictation as it is transcribed, on occasion the spoken word can be misinterpreted by the technology leading to inappropriate words, phrases, or sentences. This note is addressed to the requesting provider as a consultation for clinical guidance. Specific medical abbreviations are occasionally used and those are generally approved by the [place]?Board of?Obstetrics and?Gynecology?as well as?Maddison hodgson abbreviations. The above plan of care was based solely on the diagnoses for which a consultation was requested. ?More frequent testing may be indicated based on her other medical/obstetrical conditions. The management of other or medical conditions is beyond the scope of requested consultation and will continue to be followed by the primary spring upholsterer or primary care provider. Note to patient: [...] of the practitioner. documented in this encounter [facility] 10-12-2022 Evaluation note Encounter Date Diagnosis [...] take Sudafed and/or Mucinex for congestion. Take hyyn-xxb-ggsxj er Robitussin or Delsym for cough. Follow-up with your family physician if no improvement in 2 to 3 days. Off work tomorrow. Oct, Cough (ICD-10 - R05.9) Oct, Bronchitis (ICD-10 - J40) Acute bronchitis material was printed [employer] Other 10-19-2022 NotePatient Education Materials [id number] History of Present illness Narrative* Payal Richardson [...] and patient voices understanding [facility]: [phone]) 496-358604-07-2022 Hospital Discharge instructions* Instructions* Hannah Zavaleta RN - 05/17/2021 Discharge Instructions for Bariatric Surgery You had a Laparoscopic Sleeve Gastrectomy (27845) surgery to treat obesity. Recovery from this [...] scheduled appointment, please call the office at [phone]. Call Your Doctor If Any of the [...] sent through Care Everywhere. * Enoxaparin (Lovenox) (Tristanian) * Video: How to Give Yourself an Anticoagulant (Blood Thinner) Shot (Tristanian) documented in this [facility] Phone: [phone]) 721-422903-23-2022 Hospital Discharge instructions* Instructions* Kendal Wilhelm APRN [...] Day of Surgery/Procedure As a patient at [facility] you can expect quality medical and nursing care that is centered on your individual needs. Our goal is to make your surgical experience as comfortableas possible Directions to the Surgery Center The surgery Center at [facility] is located in the Emergency Room parking lot on [facility] or there is additional parking across the street. The address is [address] [place] [address]. Please check in at the Surgery Center [...] on the day of surgery please contact [phone] or [phone] If you have any other questions regarding your procedure/surgery please call your surgeon's office. documented in this [facility] Phone: [phone]) 510-563603-23-2022 History of Present illness Narrative* Eloise Chi [...] syndrome) Under care of team 05/02/2021 pcp-Dr MelgozaHdstfs-nkopczs-etzd visit april 2021 Patient was evaluated in PAT & anesthesia guidelines were applied. NPO guidelines, medication instructions and scheduled arrival time were reviewed with patient. Anesthesia contacted: no Medical or cardiac clearance ordered: no, medical clearance obtained. LAURA Garcia CNP 05/02/21 11:53 AM [facility]: 1(600) 592-588310-25-2021 Evaluation note* Encounter Date Diagnosis Assessment Notes Treatment Notes Treatment Clinical Notes Nov, Contact with and (suspected) exposure to other viral communicable diseases (ICD-10 - Z20.828) Nov, Viral URI with cough (ICD-10 - J06.9) No COVID test completed at this time. Advised patient that will tx as viral URI. Supportive care as directed, increase fluids and rest, Tylenol/Motrin as directed, rx of Da[place]hin and Flonase as directed, cool mist humidifier, [...] Patient care instructions given in writting by [facility] Care At Home document tado Other Evaluation note* Diagnosis LYNN (obstructive sleep apnea) Obstructive sleep apnea (adult) (pediatric) documented in this encounter [employer] Phone: evaluation note* Diagnosis S/P laparoscopic sleeve gastrectomy- Primary Post-op pain Other acute postoperative pain documented in this encounter [employer] Phone: evaluation noteNo assessment information available [facility] Work Phone: Evaluation noteNo [employer] Other Evaluation note* Diagnosis Hypertension affecting in second trimester- Primary 16 weeks gestation of Dichorionic diamniotic twin in second trimester H/O gastric sleeve documented in this encounter [facility] N[facility]ative - Reported* Type Description Date Medical History METABOLIC SYNDROME Medical History SYNCOPE Medical History anxiety Surgical History WISDOM TEETH Surgical History TONSILECTOMY Surgical History ENDOSCOPY AND COLONSCOPY Surgical History C section Hospitalization History see above tado Other Hishskl general Narrative - Reported* Type Description Date Medical History METABOLIC SYNDROME Medical History SYNCOPE Medical History anxiety Surgical History WISDOM TEETH Surgical History TONSILECTOMY Surgical History ENDOSCOPY AND COLONSCOPY Surgical History C section Surgical History gastric sleeve Hospitalization History see above tado Other Hisgyrc general Narrative - Reported* Type Description Date Medical History METABOLIC SYNDROME Medical History SYNCOPE Medical History anxiety Surgical History WISDOM TEETH Surgical History TONSILECTOMY Surgical History ENDOSCOPY AND COLONSCOPY Surgical History C section Surgical History gastric sleeve Surgical History cholcystectomy 09/10/2022 Hospitalization History see above tado Other InstructionsNot on filedocumented in this encounter [email or web address] SystemInstructionsNot on filedocumented in this encounter [email or web address] SystemReason for visit Narrative* Auth/Cert Specialty Diagnoses / Procedures Referred By Contac t Referred To Contact Diagnoses Morbid obesity (HCC) Obstructive sleep apnea GERD (gastroesophageal reflux disease) MORBID OBESITY, OBSTRUCTIVE SLEEP APNEA, GERD Procedures WI LAP, JAY RESTRICT PROC, LONGITUDINAL GASTRECTOMY XI ROBOTIC LAPAROSCOPIC GASTRECTOMY SLEEVE , LIVER BIOPSY, EGD- GI SCHEDULED Patricia Curry, DO [address] [address] [employer] [address] [place] [address] Referral ID Status Reason Start Date Expiration Date Visits Re quested Visits Authorized [id number] 1 1 [employer] Phone: Summary Purpose Family History No Family [...] Diagnostic Sleep Study Ike Ortiz MD [address] [address] Specialty Diagnoses / Procedures Referred By Contac t Referred To Contact Diagnoses Hypertension affecting in second trimester 16 weeks gestation of Dichorionic diamniotic twin in second trimester Procedures ECG 12 lead Tatiana Yap MD [address] [place] [address] Referral ID Status Reason Start Date Expiration Date V isits Requested Visits Authorized [id number] Pending Review 02/07/2023 02/07/2024 1 1 Chief Complaint and Reason for Visit Chief Complaint Dysuria Additional Source Comments INFORMATION SOURCE (unrecogn ized section and content) DATE CREATED AUTHOR 07/31/2017 [facility] DATE CREATED AUTHOR AUTHOR'S ORGANIZ ATION 05/21/2021 [facility] DATE CREATED AUTHOR AUTHOR'S ORGANIZ ATION 12/03/2021 [facility] DATE CREATED AUTHOR AUTHOR'S ORGANIZ ATION 01/12/2022 [facility] DATE CREATED AUTHOR AUTHOR'S ORGANIZ ATION 02/11/2022 [facility] DATE CREATED AUTHOR AUTHOR'S ORGANIZ ATION 09/13/2022 [facility] DATE CREATED AUTHOR AUTHOR'S ORGANIZ ATION 02/06/2023 [facility] EPIC DATE CREATED AUTHOR AUTHOR'S ORGANIZ ATION 02/09/2023 [facility] Reason for Visit (unrecogniz ed section and content) Status Reason Specialty Diagnoses / Procedures Referred By Contact Referred To Contact Closed Sleep Center Diagnoses LYNN (obstructive sleep apnea) Procedures Baseline Diagnostic Sleep Study Ike Ortiz MD [address] [address] Status Reason Specialty Diagnoses / Procedures Referre d By Contact Referred To Contact Diagnoses K21.9 GERD E66.9 OBESITY Procedures WI EGD TRANSORAL BIOPSY SINGLE/MULTIPLE EGD BIOPSY Patricia Curry, DO [address] [facility] [address] [place] [address] [facility] Reason Comments twin HX C/S HX gastric sleeve HX PTD Care Teams (unrecognized sec tion and content) Crop Specialist Relationship Specialty Start Date End Date Stephane Martin MD [address] [place] [address] PCP - General 05/17/20 Crop Specialist Relationship Specialty Start Date End Date Stephane Martin MD [address] [place] [address] PCP - General 05/17/20 Team Status: Inactive Member Role Status Dates Ale Shields APRN Attending Provider Active Crop Specialist Relationship Specialty Start Date End Date Margot Toure DO [address] [place] [address] PCP - General [facility] Medicine 01/03/23 Crop Specialist Relationship Specialty Start Date End Date Margot Toure DO [address] [place] [address] PCP - General Family Medicine 01/03/23 Ordered [...] (Given - Provider: Sharmin Sam APRN - INNERSOLE MAKER) ceFAZolin (ANCEF) 3000 mg in sterile water [...] to back table, 1000 ml. 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 [employer] provides no warranty or guarantee of the accuracy or completeness of information in this document.
[2023-02-19 10:29] LABS: Total Protein Urine Random 12.8 mg/dL (<=11.9)
[2023-02-19 11:10] LABS: Total Protein 24 Hour Urine 217.6 mg/24hr (<=149.1); Total Volume 24 Hour Urine 1700 mL/24hr
== END 2023-02-18 00:01 | disposition home or self-care (01) ==
LOC: LAB
DX: O16.2 Unspecified maternal hypertension, second trimester (principal); Z3A.16 16 weeks gestation of pregnancy; O30.042 Twin pregnancy, dichorionic/diamniotic, second trimester
CPT/HCPCS: 84156

== ENCOUNTER 2023-02-24 13:35 | Emergency (ER) | payer MEDICAID, SELFPAY ==
[2023-02-24 13:51] VITALS: BP 110/82; PULSE 83; RESP 14; TEMP 36.9; O2SAT 98; BMI 34.5
--- OUTSIDE RECORDS SUMMARY | 2023-02-24 14:12 | XMS_ITS | CCD ---
Author Name Unknown Address [address] [place] [address] Organization [facility] Care Team Providers Care Connie Cleaner Name Role Phone Neo Anderson Unavailable Unavailable Neo Anderson Unavailable Unavailable Jose Maria Santoyo MD, [facility] Primary Care Provider DOC OKEEFE Referring Unavailable JOSE MARIA SANTOYO STEPHANE Primary Care Unavailabl e DOC OKEEFE E Referring Unavailable [facility] Primary Care Unavailabl e IKE ORTIZ Referring Unavailable [facility] Primary Care Unavailabl e Kimberly, Ale [...] Unavailable Margot Toure DO Primary Care Provider [phone] NIGEL ADAMES Attending Unavailable YAW MARGOT G Attending Unavailable NIGEL ADAMES Attending Unavailable YAW MARGOT Sudheer Attending Unavailable YAW MARGOT G Referring Unavailable YAW MARGOT G Primary Care Unavailable TATIANA YAP Attending Unavailable MARGOT TOURE Referring Unavailable YAW MARGOT G Primary Care Unavailable Allergies Allergy Classification Reported Allergen(s) Allergy Type Date of Onset Reaction(s) Facility (3 sources) Ibuprofen; Translations: [IBUPROFEN] Drug Allergy 09-19-2021 [facility] Medications Current Medications Medication Drug Class(es) [...] 30 mg oral tablet (1 source) Uncompetitive E-ycxxqr-C-aspartate Receptor Antagonist, Sigma-1 Agonist Start: 2020 take 1 tablet by mouth every eight hours [place] DMT 30-30 MG 1 tablet Orally every [...] Iron (2 sources) Iron Active lactobacillus acidophilus [id number] unt / pectin 100 mg oral tablet [...] extended release oral tablet (2 sources) Uncompetitive B-sjlqlw-X-asparta te Receptor Antagonist, Sigma-1 Agonist Start: 01-14-2022 [...] - Officeon 2022 Radiology Study observation (narrative) [facility] HIV 1&2 AB/AG Screen (P24 AG )on 12-20-2022 HIV 1&2 AB/AG Non-Reactive [facility] Hepatitis B surface antigeno n 12-20-2022 Hepatitis B Surface Antigen Negative [facility] No Panel Informationon 12-20 [facility] Rubella IGG immune statuson 12-20-2022 Rubella immune IgG 1.96 [facility] Syphilis Total(Unknown Syphi lis Status)on 12-20-2022 Syphilis Non-Reactive [facility] Ultrasound - Officeon 2022 SEE SCANNED REPORt MANUAL LY TRANSCRIBED RESULTS [facility] COVID + FLU Quick Testingon 10-12-2022 SARS-CoV-2 (COVID-19) RNA BECCA+probe Ql (Unsp spec) negtaive [email or web address] [facility] [employer] Other COVID + FLU Quick Testing Negative [employer] Other Basic Metabolic Profon 09-11 Anion gap [Moles/Vol] 9 mmol/L Normal 9-17 [facility] Comment on above: Performed By: #### B MP, CBC, PT #### [facility] [address] [place] [address] Surgery Aide: Anthony Aguilar MD Calcium [Mass/Vol] 8.8 mg/dL Normal 8.6-10.4 [facility] Comment on above: Performed By: #### B MP, CBC, PT #### [facility] [address] [place] [address] Surgery Aide: Anthony Aguilar MD Chloride [Moles/Vol] 106 mmol/L Normal 98-107 [facility] Comment on above: Performed By: #### B MP, CBC, PT #### [facility] [address] [place] [address] Surgery Aide: Anthony Aguilar MD CO2 [Moles/Vol] 23 mmol/L Normal 20-31 [facility] Comment on above: Performed By: #### B MP, CBC, PT #### [facility] [address] [place] [address] Surgery Aide: Anthony Aguilar MD Creatinine [Mass/Vol] 0.7 mg/dL Normal 0.5-0.9 [facility] Comment on above: Performed By: #### B MP, CBC, PT #### [address] [address] Surgery Aide: Anthony Aguilar MD GFR/1.73 sq M.predicted among non-blacks MDRD (S/P/Bld) [Vol rate/Area] mL/min/{1.73_m2} Normal >60 [facility] Comment on above: Result Comment: These results [...] PT #### [facility] [employer] [address] [place] [address] Surgery Aide: Anthony Aguilar MD Glucose [Mass/Vol] 79 mg/dL Normal 70-99 [facility] Comment on above: Performed By: #### B MP, CBC, PT #### [facility] [employer] [address] [place] [address] Surgery Aide: Anthnoy Aguilar MD Potassium [Moles/Vol] 4.1 mmol/L Normal 3.7-5.3 [facility] Comment on above: Performed By: #### B MP, CBC, PT #### [facility] [employer] [address] [place] [address] Surgery Aide: Anthony Aguilar MD Sodium [Moles/Vol] 138 mmol/L Normal 135-144 [facility] Comment on above: Performed By: #### B MP, CBC, PT #### [facility] [employer] [address] [place] [address] Surgery Aide: Anthony Aguilar MD Urea nitrogen [Mass/Vol] 11 mg/dL Normal 6-20 [facility] Comment on above: Performed By: #### B FIFI, CBC, PT #### [facility] [employer] [address] [place] [address] Surgery Aide: Anthony Aguilar MD CBCon 09-11-2022 Erythrocyte distribution width (RBC) [Ratio] 13.2 % Normal 11.8-14.4 [facility] Comment on above: Performed By: #### B FIFI, CBC, PT #### [facility] [employer] [address] [place] [address] Surgery Aide: Anthony Aguilar MD Hematocrit (Bld) [Volume fraction] 41.6 % Normal 36.3-47.1 [facility] Comment on above: Performed By: #### B MP, CBC, PT #### [facility] [employer] [address] [place] [address] Surgery Aide: Anthony Aguilar MD Hemoglobin (Bld) [Mass/Vol] 13.3 g/dL Normal 11.9-15.1 [facility] Comment on above: Performed By: #### B MP, CBC, PT #### [address] [address] Surgery Aide: Anthony Aguilar MD MCH (RBC) [Entitic mass] 28.3 pg Normal 25.2-33.5 [facility] Comment on above: Performed By: #### B MP, CBC, PT #### [address] [address] Surgery Aide: Anthony Aguilar MD MCHC (RBC) [Mass/Vol] 32.0 g/dL Normal 28.4-34.8 [facility] Comment on above: Performed By: #### B MP, CBC, PT #### [address] [address] Surgery Aide: Anthony Aguilar MD MCV (RBC) [Entitic vol] 88.5 fL Normal 82.6-102.9 [facility] Comment on above: Performed By: #### B MP, CBC, PT #### [address] [address] Surgery Aide: Anthony Aguilar MD NRBC Automated 0.0 per 100 WBC Normal 0.0 [facility] Comment on above: Performed By: #### B MP, CBC, PT #### [address] [address] Surgery Aide: Anthony Aguilar MD Platelet mean volume (Bld) [Entitic vol] 9.7 fL Normal 8.1-13.5 [facility] Comment on above: Performed By: #### B MP, CBC, PT #### [facility] [employer] [address] [place] [address] Surgery Aide: Anthony Aguilar MD Platelets (Bld) [#/Vol] 276 10*3/uL Normal 138-453 [facility] Comment on above: Performed By: #### B MP, CBC, PT #### [address] [address] Surgery Aide: Anthony Aguilar MD RBC (Bld) [#/Vol] 4.70 10*6/uL Normal 3.95-5.11 [facility] Comment on above: Performed By: #### B MP, CBC, PT #### [address] [address] Surgery Aide: Anthony Aguilar MD WBC (Bld) [#/Vol] 7.4 10*3/uL Normal 3.5-11.3 [facility] Comment on above: Performed By: #### B MP, CBC, PT #### [facility] [employer] [address] [place] [address] Surgery Aide: Anthony Aguilar MD PTon 09-11-2022 INR Coag (PPP) [Relative time] 1.0 {INR} Normal [facility] Comment on above: Result Comment: Therapeutic Range: Moderate Anticoagulant Intensity: INR = 2.0-3.0 High Anticoagulant Intensity: INR = 2.5-3.5 Performed By: #### B MP, CBC, PT #### [facility] [employer] [address] [place] [address] Surgery Aide: Anthony Aguilar MD PT Coag (PPP) [Time] 12.9 s Normal 11.7-14.9 [facility] Comment on above: Performed By: #### B MP, CBC, PT #### [address] [address] Surgery Aide: Anthony Aguilar MD Surgical Pathologyon 023 Surgical Pathology (NOTE) Path Number: [id number] -- Diagnosis -- GALLBLADDER, CHOLECYSTECTOMY: -CHRONIC CHOLECYSTITIS [...] lesions or periductal lymph nodes are identified. Psychotherapist sections 1c. tm Microscopic Description Microscopic examination performed. Processing Lab: [address] [id number] Interpretation Performed at [address] [phone] SURGICAL PATHOLOGY CONSULTATION Patient Name: FINA VELÁSQUEZ [facility] Rec: [id number] [facility] [employer] [facility] ANATOMIC PATHOLOGY [address] [place] [id number] [facility] Urine Cultureon 02-08-2022 Bacteria identified Cx Nom (U) Reason for Exam Dysuria Urine ORGANISM: Escherichia coli (O:ESCCOL) [place] Count >100,000 Aerobic LISA Charge (NMIC56) ---- [...] RESISTANT TO ALL B-LACTAM DRUGS. PERFORMED BY: [place] [address] PATHOLOGIST SALES ACTIVITY MANAGER SAMIRA WEN M.D. [facility] Comment on above: Performed By: #### C UU #### [address] VC CONSULT FOLLOWUPon 2021 VC CONSULT FOLLOWUP Patient: FINA VELÁSQUEZ Exam Date: 01/08/2022 : 1995 Gender:F Ordering : DR JAMEEL BURGOS M.D. Admission #: [id number] Family : Order #: [id number] CLICK HERE TO VIEW EXAM RADIOLOGY REPORT [...] Hinton M.D. on 01/08/2022 at 10:10 Normal [facility] VC EXT VENOUS RT LIMITEDon 1 03-10-2021 VC EXT VENOUS RT LIMITED Patient: FINA VELÁSQUEZ Exam Date: 01/08/2022 : 1995 Gender:F Ordering : DR JAMEEL BURGOS M.D. Admission #: [id number] Family : Order #: [id number] CLICK HERE TO VIEW EXAM RADIOLOGY REPORT [...] Hinton M.D. on 01/08/2022 at 10:05 Normal [facility] VC ENDOVENOUS ABL 1ST V RTon 12-31-2021 VC ENDOVENOUS ABL 1ST V RT Patient: FINA VELÁSQUEZ Exam Date: 12/31/2021 : 1995 Gender:F Ordering : DR JAMEEL BURGOS M.D. Admission #: [id number] Family : Order #: [id number] CLICK HERE TO VIEW EXAM RADIOLOGY REPORT [...] the right great saphenous vein. Dictated by: Jamele Burgos MD on 12/31/2021 at 11:05 Approved by: Jameel Burgos MD on 12/31/2021 at 11:06 [facility] ED Clinical Summaryon 2021 ED Clinical Summary [facility] ? Urgent Care [address] [place] [address] Clinical Summary PERSON INFORMATION Name: VERNON VELÁSQUEZ Age: 26 Years Sex: FEMALE : 1995 MRN: Acct#: Visit Reason: OTTERBEIN PHYSICAL Arrival: 11/28/2021 10:39:56 Discharge: 11/28/2021 10:59:00 LOS: 000 00:20 Check In: 11/28/2021 10:39:56 Checkout: 11/28/2021 10:59:00 Address: [address] [place] [address] PCP: Provider, None PROVIDER INFORMATION VITALS INFORMATION Vital Sign Triage Latest Temperature Tympanic Temperature Temporal Artery Pulse Rate O2 Sat Respiratory Rate Blood Pressure / / MEDICAL INFORMATION Medications Given: Allergy Information: No known allergies PHYSICIAN DOCUMENTATION DISCHARGE INFORMATION: Discharge Disposition: Eloped Discharge Location: PATIENT EDUCATION INFORMATION Instructions: Follow-Up: DIAGNOSIS: Patient Understands: Comment: [facility] ED Patient Summaryon ED Patient Summary [facility] ? Urgent Care [address] [place] [address] [id number] PATIENT DISCHARGE INSTRUCTIONS Patient Information Name: VERNON VELÁSQUEZ Age: 26 Years Date of : 1995 Reason For Visit: MICHELLE PHYSICAL Arrival Time: 11/28/2021 10:39:56 Primary Care Physician: Provider, None Attending Physician: Nuno Bradshaw Comment: Patient Education Medication Information: The exam and treatment you received today in the [facility] Emergency Department were for an urgent problem and are not intended as complete care. It is important for you to follow up with a doctor, nurse practitioner, or physician?s assistant education director for ongoing care. If your symptoms become [...] so we can reach you if necessary. [facility] Emergency Department has provided you with a complete list of medications post discharge. Please inform your tso/provider of your visit and for further instruction [...] Control and Prevention October 2013 [facility] VC CONSULT FOLLOWUPon 2021 VC CONSULT FOLLOWUP Patient: FINA VELÁSQUEZ Exam Date: 11/28/2021 : 1995 Gender:F Ordering : DR JAMEEL BURGOS M.D. Admission #: [id number] Family : Order #: [id number] CLICK HERE TO VIEW EXAM RADIOLOGY REPORT [...] Hinton M.D. on 11/28/2021 at 10:04 Normal [facility] VC EXT VENOUS LT LIMITEDon 1 VC EXT VENOUS LT LIMITED Patient: FINA VELÁSQUEZ Exam Date: 11/28/2021 : 1995 Gender:F Ordering : DR JAMEEL BURGOS M.D. Admission #: [id number] Family : Order #: [id number] CLICK HERE TO VIEW EXAM RADIOLOGY REPORT [...] Hinton M.D. on 11/28/2021 at 09:45 Normal [facility] VC ENDOVENOUS ABL 1ST V LTon 11-22-2021 VC ENDOVENOUS ABL 1ST V LT Patient: FINA VELÁSQUEZ Exam Date: 11/22/2021 : 1995 Gender:F Ordering : DR JAMEEL BURGOS M.D. Admission #: [id number] Family : Order #: [id number] CLICK HERE TO VIEW EXAM RADIOLOGY REPORT [...] Burgos MD on 11/22/2021 at 09:04 Normal [facility] VC COMP CONSULTATIONon 10-17 VC COMP CONSULTATION Patient: FINA VELÁSQUEZ Exam Date: 10/17/2021 : 1995 Gender:F Ordering : DR JAMEEL BURGOS M.D. Admission #: [id number] Family : Order #: [id number] CLICK HERE TO VIEW EXAM RADIOLOGY REPORT [...] arterial disease 5. CEAP: C2, EC, AP, W[place] PLAN: 1. Continued use of compression stockings [...] M.D. on 10/17/2021 at 12:46 Normal [facility] Basic Metabolic Panelon 04-0 Anion gap [Moles/Vol] 8 mmol/L Low 9 - 17 mmol/L [employer] Calcium [Mass/Vol] 8.6 mg/dL 8.6 - 10. 4 mg/dL [employer] Chloride [Moles/Vol] 106 mmol/L 98 - 107 mmol/L [employer] CO2 [Moles/Vol] 23 mmol/L 20 - 31 mmol/L [employer] Creatinine [Mass/Vol] 0.67 mg/dL 0.50 - 0.90 mg/dL [employer] GFR >60 >60 mL/min [employer] GFR Non- >60 >60 mL/min [employer] GFR/1.73 sq M.predicted MDRD (S/P/Bld) [Vol rate/Area] [employer] Comment on above: Average GFR for 20-2 9 years old: 116 mL/min/1.73sq m Chronic Kidney Disease: <60 mL/min/1.73sq m Kidney failure: <15 mL/min/1.73sq m eGFR calculated using average adult body mass. Additional eGFR calculator available at: http://www.monEchelle.[employer]/multiple_crcl_2011.htm Glucose [Mass/Vol] 83 mg/dL 70 - 99 mg/dL [facility] Interpretation and review of laboratory results Abnormal [facility] Potassium [Moles/Vol] 3.9 mmol/L 3.7 - 5.3 mmol/L [facility] Sodium [Moles/Vol] 137 mmol/L 135 - 144 mmol/L [facility] Urea nitrogen (BldV) [Mass/Vol] 7 mg/dL 6 - 20 mg/dL [facility] CBCon 05-17-2021 Hematocrit (Bld) [Volume fraction] 34.4 % Low 36.3 - 47.1 % [facility] Hemoglobin.gastroin testinal spec 1 Ql (Stl) 11.0 g/dL Low 11.9 - 15.1 g/dL [facility] Interpretation and review of laboratory results Abnormal [facility] MCH (RBC) [Entitic mass] 27.2 pg 25.2 - 33.5 pg [facility] MCHC (RBC) [Mass/Vol] 32.0 g/dL 28.4 - 34.8 g/dL [facility] MCV (RBC) [Entitic vol] 85.1 fL 82.6 - 102.9 fL [facility] NRBC Automated 0.0 0.0 per 100 WBC [facility] Platelet distribution width (Bld) [Ratio] 14.1 % 11.8 - 14.4 % [facility] Platelet mean volume (Bld) [Entitic vol] 10.1 fL 8.1 - 13.5 fL [facility] Platelets (Bld) [#/Vol] 302 10*3/uL [facility] RBC (Bld) [#/Vol] 4.04 10*6/uL 3.95 - 5.1 1 m/uL [facility] WBC (Bld) [#/Vol] 13.7 10*3/uL High [facility] SURGICAL PATHOLOGY REPORTon 05-17-2021 Surgical Pathology Report [...] x 0.5 cm piece of adipose tissue. Psychotherapist sections 1cs. tm Microscopic Description 1 H&E reviewed. Microscopic examination performed. SURGICAL PATHOLOGY CONSULTATION Patient Name: FINA VELÁSQUEZ [facility] Rec: [id number] Path Number: [id number] [facility] [employer] ANATOMIC PATHOLOGY [address] [place] [address]. [place], [place] [address] [facility] Basic Metabolic Panelon 04-0 Anion gap [Moles/Vol] 10 mmol/L 9 - 17 mmol/L [employer] Calcium [Mass/Vol] 8.7 mg/dL 8.6 - 10. 4 mg/dL [facility] Chloride [Moles/Vol] 105 mmol/L 98 - 107 mmol/L [employer] CO2 [Moles/Vol] 23 mmol/L 20 - 31 mmol/L [employer] Creatinine [Mass/Vol] 0.75 mg/dL 0.50 - 0.90 mg/dL [facility] GFR >60 >60 mL/min [facility] [employer] GFR Non- >60 >60 mL/min [employer] GFR/1.73 sq M.predicted MDRD (S/P/Bld) [Vol rate/Area] [facility] [employer] Comment on above: Average GFR for 20-2 9 years old: 116 mL/min/1.73sq m Chronic Kidney Disease: <60 mL/min/1.73sq m Kidney failure: <15 mL/min/1.73sq m eGFR calculated using average adult body mass. Additional eGFR calculator available at: http://www.[employer]chelle.[employer]/multiple_crcl_2012.htm Glucose [Mass/Vol] 132 mg/dL High 70 - 99 mg/dL [facility] Interpretation and review of laboratory results Abnormal [facility] [employer] Potassium [Moles/Vol] 3.5 mmol/L Low 3.7 - 5.3 mmol/L [facility] Sodium [Moles/Vol] 138 mmol/L 135 - 144 mmol/L [facility] Urea nitrogen (BldV) [Mass/Vol] 10 mg/dL 6 - 20 mg/dL [facility] CBC without Diffon Hematocrit (Bld) [Volume fraction] 38.8 % 36.3 - 47.1 % [facility] Hemoglobin.gastroin testinal spec 1 Ql (Stl) 12.6 g/dL 11.9 - 15.1 g/dL [facility] Interpretation and review of laboratory results Abnormal [facility] MCH (RBC) [Entitic mass] 27.2 pg 25.2 - 33.5 pg [facility] MCHC (RBC) [Mass/Vol] 32.5 g/dL 28.4 - 34.8 g/dL [facility] MCV (RBC) [Entitic vol] 83.8 fL 82.6 - 102.9 fL [facility] NRBC Automated 0.0 0.0 per 100 WBC [facility] Platelet distribution width (Bld) [Ratio] 13.9 % 11.8 - 14.4 % [facility] Platelet mean volume (Bld) [Entitic vol] 9.8 fL 8.1 - 13.5 fL [facility] Platelets (Bld) [#/Vol] 340 10*3/uL [facility] RBC (Bld) [#/Vol] 4.63 10*6/uL 3.95 - 5.1 1 m/uL [facility] WBC (Bld) [#/Vol] 15.0 10*3/uL High [facility] POC Glucose Fingerstickon Glucose [Mass/Vol] 77 mg/dL 65 - 105 mg/dL [facility] POCT urine pregnancyon 05-16 Beta HCG ( test) Ql (U) Negative NEGATIVE [facility] Comment on above: Specimens with hCG l evels near the threshold of the test (25 mIU/mL) may give a negative or indeterminate result. In such cases, another test should be performed with a new specimen in 48-72 hours. If early is suspected clinically in this setting, correlation with quantitative serum b-hCG level is suggested. [facility] [id number] 05-15-2021 SARS-CoV-2 (COVID-19) RNA BECCA+probe Ql (Unsp spec) Normal [facility] Comment on above: Performed By: #### C OVID #### [facility] [address] [place], [place] [id number] Surgery Aide: Anthony Aguilar MD [facility] [address] [place] [address] [place] [address] Surgery Aide: Jameel Lawler MD SARS-CoV-2 (COVID-19) RNA BECCA+probe Ql (Unsp spec) Not detected Normal NOTDET [facility] Comment on above: Result Comment: The specimen is NEGATIVE for SARS-CoV-2, the novel coronavirus associated with COVID-19. A negative result does not rule out COVID-19. Lucre[employer] SARS-CoV-2 for use on the [employer]88[employer] is a real-time RT-PCR test intended [...] this assay. Fact sheet for Healthcare Providers: https://www.fda.gov/media/211637/download Fact sheet for Patients: https://www.fda.gov/media/766990/download METHODOLOGY: RT-PCR Performed By: #### C OVID #### [facility] [employer] [address] [place], [place] [id number] Surgery Aide: Anthony Aguilar MD [facility] [address] [place] [address] Surgery Aide: Jameel Lawler MD [id number] 05-14-2021 SARS-CoV-2 (COVID-19) RNA BECCA+probe Ql (Unsp spec) .NASOPHARYNGEAL SWAB Normal [facility] Comment on above: Performed By: #### C OVID #### [facility] [address], [place] [id number] Surgery Aide: Anthony Aguilar MD [facility] [address] [place] [address] Surgery Aide: Jameel Lawler MD Nicotine, Bloodon 05-05-2021 6-QV-Fdhbmdmd <2 ng/mL [facility] h Cotinine <2 ng/mL [facility] Nicotine <2 ng/mL [facility] Comment on above: (NOTE) Consistent with [...] developed and its performance characteristics determined by [employer]. It has not been cleared or approved by the US Food and Drug Administration. This test was performed in a CLIA certified laboratory and is intended for clinical purposes. Performed By: [facility] [address] [place] [address] Swedger: Yara Rodriguez MD [facility] [employer] EKG 12 LeadOrdered By: Diaz Conway on 05-03-2021 Atrial Rate 72 BPM [employer] Work Phone: P [place] 45 degrees [employer] Work Phone: P-R Interval 142 ms [employer] Work Phone: Q-T Interval 376 ms [employer] Work Phone: QRS Duration 100 ms [employer] Work Phone: QTc Calculation (Bazett) 411 ms [employer] Work Phone: R [place] 22 degrees [employer] Work Phone: T [place] 32 degrees [employer] Work Phone: Ventricular Rate [address] [facility] Work Phone: [employer] Work Phone: EKG 12 Leadon 05-03-2021 Normal sinus rhythm Normal ECG No previous ECGs available [facility] Diaz Elias MD - 05/03/2021 Normal sinus rhythm Normal ECG No previous ECGs available [employer] Work Phone: APTTon 05-02-2021 aPTT Coag (Bld) [Time] 25.0 s [employer] Comment on above: IV Heparin Therapy Range: 48.6-77.8 Basic Metabolic Panelon 04-11 Anion gap [Moles/Vol] 15 mmol/L 9 - 17 mmol/L [employer] Calcium [Mass/Vol] 9.8 mg/dL 8.6 - 10. 4 mg/dL [employer] Chloride [Moles/Vol] 102 mmol/L 98 - 107 mmol/L [employer] CO2 [Moles/Vol] 21 mmol/L 20 - 31 mmol/L [employer] Creatinine [Mass/Vol] 0.55 mg/dL 0.50 - 0.90 mg/dL [employer] GFR >60 >60 mL/min [employer] GFR Non- >60 >60 mL/min [employer] GFR/1.73 sq M.predicted MDRD (S/P/Bld) [Vol rate/Area] [employer] Comment on above: Average GFR for 20-2 9 years old: 116 mL/min/1.73sq m Chronic Kidney Disease: <60 mL/min/1.73sq m Kidney failure: <15 mL/min/1.73sq m eGFR calculated using average adult body mass. Additional eGFR calculator available at: http://www.[employer]chelle.[employer]/multiple_crcl_2012.htm Glucose [Mass/Vol] 85 mg/dL 70 - 99 mg/dL [facility] Potassium [Moles/Vol] 4.5 mmol/L 3.7 - 5.3 mmol/L [facility] Sodium [Moles/Vol] 138 mmol/L 135 - 144 mmol/L [facility] Urea nitrogen (BldV) [Mass/Vol] 11 mg/dL 6 - 20 mg/dL [facility] CBCon 05-02-2021 Hematocrit (Bld) [Volume fraction] 41.0 % 36.3 - 47.1 % [facility] Hemoglobin.gastroin testinal spec 1 Ql (Stl) 12.9 g/dL 11.9 - 15.1 g/dL [facility] MCH (RBC) [Entitic mass] 26.9 pg 25.2 - 33.5 pg [facility] MCHC (RBC) [Mass/Vol] 31.5 g/dL 28.4 - 34.8 g/dL [facility] MCV (RBC) [Entitic vol] 85.6 fL 82.6 - 102.9 fL [facility] NRBC Automated 0.0 0.0 per 100 WBC [facility] Platelet distribution width (Bld) [Ratio] 13.7 % 11.8 - 14.4 % [facility] Platelet mean volume (Bld) [Entitic vol] 9.8 fL 8.1 - 13.5 fL [facility] Platelets (Bld) [#/Vol] 380 10*3/uL [facility] RBC (Bld) [#/Vol] 4.79 10*6/uL 3.95 - 5.1 1 m/uL [facility] WBC (Bld) [#/Vol] 11.2 10*3/uL [facility] [place] No Panel Informationon 05-02 [facility] Protime-INRon 05-02-2021 INR Coag (Bld) [Relative time] 1.0 {INR} [facility] Comment on above: Therapeutic Range: Moderate Anticoagulant Intensity: INR = 2.0-3.0 High Anticoagulant Intensity: INR = 2.5-3.5 PT Coag (PPP) [Time] 10.6 s [facility] XR CHEST (2 VW)on 05-02-2021 No [...] No free air. IMPRESSION: No acute process. [facility] Phone: Radiology Study observation (narrative) [facility] Phone: XR CHEST (2 VW)Ordered By: Santos Florez on 05-02-2021 [facility] Phone: [id number] 12-05-2020 SARS-CoV-2 (COVID-19) RNA BECCA+probe Ql (Unsp spec) Normal [facility] Comment on above: Performed By: #### C OVID #### [facility] [address] [place] [address] Surgery Aide: Anthony Aguilar MD [facility] [address] [place] [address] Surgery Aide: Jameel Lawler MD SARS-CoV-2 (COVID-19) RNA BECCA+probe Ql (Unsp spec) Not detected Normal [facility] Comment on above: Result Comment: The specimen is NEGATIVE for SARS-CoV-2, the novel coronavirus associated with COVID-19. A negative result does not rule out COVID-19. Lucrecia SARS-CoV-2 for use on the [employer]ysuper0/8800 [employer] is a real-time RT-PCR test intended [...] this assay. Fact sheet for Healthcare Providers: https://www.fda.gov/media/844944/download Fact sheet for Patients: https://www.fda.gov/media/448126/download METHODOLOGY: RT-PCR Performed By: #### C OVID #### [facility] [address] [place], [place] [id number] Surgery Aide: Anthony Aguilar MD [facility] [address] [place] [address] [place] [address] Surgery Aide: Jameel Lawler MD [id number] 12-04-2020 SARS-CoV-2 (COVID-19) RNA BECCA+probe Ql (Unsp spec) .NASOPHARYNGEAL SWAB Normal [facility] Comment on above: Performed By: #### C OVID #### [facility] [address] [place] [address] Surgery Aide: Anthony Aguilar MD [facility] [address] [place] [address] [place] [address] Surgery Aide: Jameel Lawler MD Vital Signs Date Time Vital Sign Value Performing Clinician Facility 02-07-2023 13:34-0500 Body height 170.2 cm Tatiana Yap MD Work Phone: [facility] 02-07-2023 13:34-0500 Body mass index (BMI) [Ratio] 34.14 kg/m2 Tatiana Yap MD Work Phone: [facility] 02-07-2023 13:34-0500 Body weight 98.88 kg Tatiana Yap MD Work Phone: [facility] 02-07-2023 13:34-0500 Diastolic blood pressure 83 mm[Hg] Tatiana Yap MD Work Phone: [facility] 02-07-2023 13:34-0500 Heart rate 76 /min Tatiana Ypa MD Work Phone: [facility] 02-07-2023 13:34-0500 Systolic blood pressure 126 mm[Hg] Tatiana Yap MD Work Phone: [facility] 10-12-2022 10:10-0400 Body height 170.18 cm Lilia Willow Other [facility] Other 10-12-2022 10:10-0400 Body mass index (BMI) [Ratio] 32.86 kg/m2 Lilia Willow Other [facility] Other 10-12-2022 10:10-0400 Body temperature 99 [degF] Lilia Willow Other [facility] Other 10-12-2022 10:10-0400 Body weight 95.17 kg Lilia Willow Other [facility] Other 10-12-2022 10:10-0400 Diastolic blood pressure 74 mm[Hg] Lilia Willow Other [facility] Other 10-12-2022 10:10-0400 SaO2% (BldA) [Mass fraction] 98 % Lilia Willow Other [facility] Other 10-12-2022 10:10-0400 Systolic blood pressure 118 mm[Hg] Lilia Willow Other [facility] Other 05-17-2021 15:52-0400 Body temperature 98.49 [degF] Patricia Antoinette SOLITARIO Work Phone: [facility] 04-07-2022 15:52-0400 Diastolic blood pressure 97 mm[Hg] Patricia Curry DO Work Phone: [facility] 05-17-2021 15:52-0400 Heart rate 70 /min Patricia Curry DO Work Phone: [facility] 05-17-2021 15:52-0400 Respiratory rate 18 /min Patricia Curry Hello Agent Work Phone: [facility] 05-17-2021 15:52-0400 SaO2% (BldA) [Mass fraction] 99 % Patricia Curry Hello Agent Work Phone: [facility] 05-17-2021 15:52-0400 Systolic blood pressure 138 mm[Hg] Patricia Curry DO Work Phone: [facility] 05-16-2021 06:06-0400 Body mass index (BMI) [Ratio] 43.16 kg/m2 Patricia Curry Hello Agent Work Phone: [facility] 05-16-2021 06:06-0400 Body weight 125 kg Patricia Curry Hello Agent Work Phone: [facility] 05-16-2021 05:57-0400 Body height 170.2 cm Patricia Curry Hello Agent Work Phone: [facility] 05-02-2021 10:35-0400 Body height 170.2 cm Stvz 1 [facility] 05-02-2021 10:35-0400 Body mass index (BMI) [Ratio] 44.95 kg/m2 St[facility] 1 [facility] 05-02-2021 10:35-0400 Body temperature 97.2 [degF] Stvz 1 [facility] 05-02-2021 10:35-0400 Body weight 130.18 kg Stvz 1 [facility] 05-02-2021 10:35-0400 Diastolic blood pressure 85 mm[Hg] Stvz 1 [facility] 05-02-2021 10:35-0400 Heart rate 66 /min Stvz 1 [facility] 05-02-2021 10:35-0400 Respiratory rate 18 /min Stvz 1 [facility] 05-02-2021 10:35-0400 SaO2% (BldA) [Mass fraction] 99 % Stvz 1 [facility] 05-02-2021 10:35-0400 Systolic blood pressure 122 mm[Hg] Stvz 1 [facility] 12-04-2020 17:00-0400 Body height 170.18 cm Ale Ginty Other [facility] Other 12-04-2020 17:00-0400 Body mass index (BMI) [Ratio] 43.85 kg/m2 Ale Ginty Other [facility] Other 12-04-2020 17:00-0400 Body temperature 97.4 [degF] Ale Ginty Other [facility] Other 12-04-2020 17:00-0400 Body weight 127.01 kg Ale Ginty Other [facility] Other 12-04-2020 17:00-0400 SaO2% (BldA) [Mass fraction] 99 % Ale Ginty Other [facility] Other Encounters Encounter Date Encounter Type Care Provider Facility Start: 02-07-2023 End: 02-07-2023 ambulatory [facility] Start: 02-07-2023 End: 02-07-2023 Office consultation new/estab patient 60 min Tatiana Yap MD Work Phone: [facility] Comment on above: Hypertension affecti ng in second trimester (Primary Dx); 16 weeks gestation of ; Dichorionic diamniotic twin in second trimester; H/O gastric sleeve Start: 02-05-2023 End: 02-05-2023 ambulatory NIGEL HOPE Not Available Start: 02-05-2023 Chart abstracting Tatiana Yap MD Work Phone: [facility] Start: 02-04-2023 End: 02-04-2023 ambulatory MARGOT Sudheer YAW Not Available Start: 01-15-2023 End: 01-15-2023 ambulatory NIGEL HOPE Not Available Start: 01-07-2023 End: 01-07-2023 ambulatory MARGOT Sudheer GUPTAE Not Available Start: 12-20-2022 End: 12-21-2022 ambulatory NIGEL HOPE Not Available Start: 10-12-2022 End: 10-12-2022 ambulatory Lilia Daugherty Other [facility] Other Start: 10-12-2022 Office outpatient vi sit 15 minutes Lilia Daugherty [facility] Start: 09-11-2022 End: 09-11-2022 ambulatory PATRICIA Alka [facility] Start: 02-10-2022 End: 02-10-2022 ambulatory Ale Shields Other [facility] Other Start: 02-10-2022 Telephone encounter Ale Shields [facility] [address] Start: 02-08-2022 End: 02-08-2022 ambulatory Ale Shields Facility:[facility] Start: 02-08-2022 End: 02-08-2022 ambulatory LAURA Shields Work Phone: [facility] Work Phone: Start: 02-08-2022 End: 02-08-2022 Departed Referred LAURA Shields Work Phone: [facility] [place] Work Phone: Start: 01-08-2022 End: 01-09-[address] JAMEEL BURGOS Facility:[facility] Start: 12-31-2021 End: 01-01-[address] JAMEEL BURGOS Facility:[facility] Start: 11-28-2021 End: 11-28-2021 ambulatory Giuliana Provider Facility:[facility] Start: 11-28-2021 End: 11-29-2021 ambulatory [...] 05-14-2021 End: 05-19-2021 ambulatory CYN OKEEFE [facility] Start: 05-02-2021 End: 05-06-2021 Subsequent hospital visit by physician Dwight Pat Rm 1 [facility] Pre-Admit Testing Start: 12-04-2020 End: 12-09-2020 ambulatory CYN OKEEFE [facility] Start: 12-04-2020 Office outpatient vi sit 15 minutes Ale Kimberly [facility] Start: 10-20-2020 End: 10-20-2020 Subsequent hospital visit by physician Patricia Curry DO Work Phone: [facility] [place] Start: 09-06-2020 End: 09-07-2020 ambulatory IKE ANGEL [facility] Start: 09-06-2020 End: 09-06-2020 Subsequent hospital visit by physician [facility] Comment on above: LYNN (obstructive sle ep apnea) Start: 05-28-2017 End: 05-29-2017 Ambulatory Neo Anderson Facility:[id number] Procedures Date Procedure Procedure Detail Performing [...] metabolic pane l calcium total Patricia Curry [employer] Work Phone: Start: 05-16-2021 End: 05-16-2021 Laps gstrc rstrictiv px longitudinal gastrectomy Patricia Curry DO Work Phone: Start: 05-16-2021 Glucose blood reagen t strip Patricia Curry DO Work Phone: Start: 05-16-2021 Urine test visual color cmprsn meths Patricia Curry [employer] Work Phone: Start: 05-02-2021 Assay of nicotine Sim Curry [employer] Work Phone: Start: 05-02-2021 Basic metabolic pane l calcium total Patricia Curry DO Work Phone: Start: 05-02-2021 Radiologic exam ches t 2 views Patricia Curry DO Work Phone: Start: 05-02-2021 Ecg routine ecg w/le ast 12 lds i&r only Patricia Curry [employer] Work Phone: Start: 06-14-2020 Microscopic observat ion [Identifier] in Cervix by Cyto stain Tatiana Yap MD Work Phone: Plan of Treatment Date Care Activity Detail Author Start: 02-08-2024 Adult BMI Screening Adult BMI Screen ing [facility] Start: 02-08-2024 Tobacco Screening Tobacco Screening [facility] Start: 01-04-2024 Adult BMI Screening Adult BMI Screen ing [facility] Start: 01-04-2024 Tobacco Screening Tobacco Screening [facility] Start: 08-11-2023 DTaP,Tdap and Td Vaccines (7 - Td or Tdap) DTaP,Tdap and Td Vaccines (7 - Td or Tdap) [facility] Start: 08-11-2023 DTaP/Tdap/Td vaccine (7 - Td or Tdap) DTaP/Tdap/Td vaccine (7 - Td or Tdap) [facility] Start: 06-15-2023 Screening for malign ant neoplasm of cervix Pap Smear [facility] Start: 03-05-2023 End: 03-05-2023 Patient encounter procedure 03/05/2023 11:30 AM EST Office Visit Maternal- Medicine at [facility] [address] [place] [phone] Bentley Sanchez MD [address] [place] [address] [facility] at [facility] Start: 03-05-2023 End: 03-05-2023 Patient encounter procedure 03/05/2023 9:30 AM EST Appointment [facility] [address] [place] [phone] [facility] Start: 02-07-2023 End: 02-07-2023 Patient encounter procedure [facility] Start: 10-11-2022 Influenza vaccination Influenza Vacc ine [facility] Start: 09-19-2022 Adult BMI Follow Up Plan Adult BMI Follow Up Plan [facility] Start: 02-08-2022 Bacteria identified in Urine by Culture Urine Culture [facility] Start: 01-08-2022 Hemoglobin A1c measurement A1C test (Diabetic or Prediabetic) [facility] Start: 10-11-2021 Influenza vaccination Flu vacc ine (Season Ended) [facility] Start: 07-14-2021 Hemoglobin A1c measurement A1C test (Diabetic or Prediabetic) [facility] Work Phone: Start: 06-18-2021 End: 06-18-2021 Patient encounter procedure 06/18/2021 Office Visit BariatricDeann Roca, BANKRUPTCY PROCESSOR - REVIEWER SALES [address] [place] [address] [facility] Start: 05-24-2021 End: 05-24-2021 Patient encounter procedure 05/24/2021 Office Visit Patricia Islas DO [address] [place] [address] [facility] Invasive [facility]ariatric [facility] Start: 05-16-2021 End: 05-16-2021 Admission to same day surgery center 05/16/2021 Surgery IP Unit Patricia Curry DO [address] [place] [address] XI ROBOTIC LAPAROSCOPIC GASTRECTOMY SLEEVE , LIVER BIOPSY, EGD- GI SCHEDULED [facility] Comment on above: XI ROBOTIC LAPAROSCO PIC GASTRECTOMY SLEEVE , LIVER BIOPSY, EGD- GI SCHEDULED Start: 05-16-2021 End: 05-16-2021 Laps gstrc rstrictiv px longitudinal gastrectomy GASTRECTOMY SLEEVE LAPAROSCOPIC ROBOTIC MORBID OBESITY, OBSTRUCTIVE SLEEP APNEA, GERD 05/16/2021 7:10 AM EDT [facility] Start: 05-16-2021 Subsequent hospital visit by physician 05/16/2021 Hospital Encounter IP Unit Patricia Curry DO [address] [place] [address] [facility] Start: 05-13-2021 End: 05-13-2021 Patient encounter procedure 05/13/2021 Appointment Pre-Admission Testing [facility] PRE ADMIT Start: 05-10-2021 End: 05-10-2021 Patient encounter procedure 05/10/2021 Office Visit Patricia Islas DO [address] [place] [phone] [facility] Start: 11-22-2020 End: 11-22-2020 Nursing evaluation of patient and report 11/22/2020 Nurse Only Bariatrics [facility] Start: 11-06-2020 End: 11-06-[address] [facility] Start: 11-03-2020 End: 11-03-2020 Patient encounter procedure 11/03/2020 Office Visit Bariatrics Deann Navarro, BANKRUPTCY PROCESSOR - REVIEWER SALES [address] [facility] [address] [place] [phone] [facility] Start: 10-11-2020 Influenza vaccination Flu vaccine (# 1) [facility] Start: 09-28-2020 End: 09-28-2020 Patient encounter procedure 09/28/2020 Office Visit Bariatrics Deann Navarro, BANKRUPTCY PROCESSOR - REVIEWER SALES [address] [facility] [address] [place] [phone] [facility] Start: 09-01-2015 Screening for malign ant neoplasm of cervix [facility] Start: 2009 HIV screening HIV screen [facility] Start: 2006 COVID-19 Vaccine (1) COVID-19 Vaccin e (1) [facility] Work Phone: Start: 2006 Depression Screen Depression Screen [facility] Start: 2006 Depression Screening Depression Scre [facility] Start: 2005 HPV vaccine (1 - 2-d ose series) HPV vaccine (1 - 2-dose series) [facility] Start: 2000 Pneumococcal 0-64 ye ars Vaccine (1 of 2 - PPSV23) Pneumococcal 0-64 years Vaccine (1 of 2 - PPSV23) [facility] Work Phone: Start: 09-01-1999 COVID-19 Vaccine (1) COVID-19 Vaccin e (1) [facility] Start: 09-01-1995 Varicella vaccine (1 of 2 - 2-dose childhood series) Varicella vaccine (1 of 2 - 2-dose childhood series) [facility] Start: 1994 Hepatitis C screening Hepatitis C [facility] End: 09-06-2020 Baseline Diagnostic Sleep Study Baseline Diagnostic Sleep Study Sleep Center Routine LYNN (obstructive sleep apnea) 1 Occurrences starting 09/06/2020 until 09/06/2020 [facility] Phone: Comment on above: 1 Occurrences starti ng 09/06/2020 until 09/06/2020 End: 02-08-2024 Calcium [Mass/volume] in Serum or Plasma Calcium Lab Routine 16 weeks gestation of H/O gastric sleeve 1 Occurrences starting 02/07/2023 until 02/08/2024 [facility] Comment on above: 1 Occurrences starti ng 02/07/2023 until 02/08/2024 End: 02-08-2024 CBC panel - Blood by Automated count CBC without diff Lab Routine Hypertension affecting in second trimester 16 weeks gestation of Dichorionic diamniotic twin in second trimester 1 Occurrences starting 02/07/2023 until 02/08/2024 [facility] Work Phone: Comment on above: 1 Occurrences starti ng 02/07/2023 until 02/08/2024 End: 02-08-2024 Comprehensive metabolic 2000 panel - Serum or Plasma Comprehensive metabolic panel Lab Routine Hypertension affecting in second trimester 16 weeks gestation of Dichorionic diamniotic twin in second trimester 1 Occurrences starting 02/07/2023 until 02/08/2024 [facility] Comment on above: 1 Occurrences starti ng 02/07/2023 until 02/08/2024 Continuous pulse oximetry Pulse oximetry, continuous Respiratory Care Routine Every 4hr until discontinued starting 05/16/2021 [facility] Phone: Comment on above: Every 4hr until disc ontinued starting 05/16/2021 End: 02-08-2024 Cyanocobalamin vitamin b-12 Vitamin B12 Lab Routine 16 weeks gestation of H/O gastric sleeve 1 Occurrences starting 02/07/2023 until 02/08/2024 [facility] Comment on above: 1 Occurrences starti ng 02/07/2023 until 02/08/2024 End: 02-08-2024 ECG 12 lead ECG 12 lead ECG Routine Hypertension affecting in second trimester 16 weeks gestation of Dichorionic diamniotic twin in second trimester 1 Occurrences starting 02/07/2023 until 02/08/2024 [facility] Comment on above: 1 Occurrences starti ng 02/07/2023 until 02/08/2024 End: 02-08-2024 Folate Folate Lab Routine 16 weeks gestation of H/O gastric sleeve 1 Occurrences starting 02/07/2023 until 02/08/2024 [facility] Comment on above: 1 Occurrences starti ng 02/07/2023 until 02/08/2024 End: 02-08-2024 Iron and TIBC Iron and TIBC Lab Routine 16 weeks gestation of H/O gastric sleeve 1 Occurrences starting 02/07/2023 until 02/08/2024 [facility] Comment on above: 1 Occurrences starti ng 02/07/2023 until 02/08/2024 End: 02-08-2024 LDH LDH Lab Routine Hypertension affecting in second trimester 16 weeks gestation of Dichorionic diamniotic twin in second trimester 1 Occurrences starting 02/07/2023 until 02/08/2024 [facility] Comment on above: 1 Occurrences starti ng 02/07/2023 until 02/08/2024 End: 02-08-2024 Natriuretic peptide B [Mass/volume] in Blood B-type natriuretic peptide Lab Routine Hypertension affecting in second trimester 16 weeks gestation of Dichorionic diamniotic twin in second trimester 1 Occurrences starting 02/07/2023 until 02/08/2024 [facility] Comment on above: 1 Occurrences starti ng 02/07/2023 until 02/08/2024 Oxygen therapy [[facility] Data Set] Initiate Oxygen Therapy Protocol Respiratory Care Routine As Needed until discontinued starting 05/16/2021 [facility] Phone: Comment on above: As Needed until disc ontinued starting 05/16/2021 End: 02-08-2024 Protein creat ratio Protein creat ratio Lab Routine Hypertension affecting in second trimester 16 weeks gestation of Dichorionic diamniotic twin in second trimester 1 Occurrences starting 02/07/2023 until 02/08/2024 [facility]: 1 Occurrences starti ng 02/07/2023 until 02/08/2024 End: 02-08-2024 Protein, urine, 24 hour Protein, urine, 24 hour Lab Routine Hypertension affecting in second trimester 16 weeks gestation of Dichorionic diamniotic twin in second trimester 1 Occurrences starting 02/07/2023 until 02/08/2024 [facility] Comment on above: 1 Occurrences starti ng 02/07/2023 until 02/08/2024 Spirometry panel Incentive isiah metry Respiratory Care Routine Every 2hr while awake until discontinued starting 05/16/2021 [facility] Phone: Comment on above: Every 2hr while awak e until discontinued starting 05/16/2021 Surgical Pathology Surgical Path ology Lab Routine Release Upon Ordering for 1 Occurrences starting 05/16/2021 [facility] Phone: Comment on above: Release Upon Orderin g for 1 Occurrences starting 05/16/2021 End: 02-08-2024 Thiamin Vitamin B1, whole blood Thiamin Vitamin B1, whole blood Lab Routine 16 weeks gestation of H/O gastric sleeve 1 Occurrences starting 02/07/2023 until 02/08/2024 [facility] Comment on above: 1 Occurrences starti ng 02/07/2023 until 02/08/2024 End: 02-08-2024 Urate [Mass/volume] in Serum or Plasma Uric acid Lab Routine Hypertension affecting in second trimester 16 weeks gestation of Dichorionic diamniotic twin in second trimester 1 Occurrences starting 02/07/2023 until 02/08/2024 [facility] Comment on above: 1 Occurrences starti ng 02/07/2023 until 02/08/2024 End: 02-08-2024 Vitamin D 25 hydroxy Vitamin D 25 hydroxy Lab Routine 16 weeks gestation of H/O gastric sleeve 1 Occurrences starting 02/07/2023 until 02/08/2024 [facility] Comment on above: 1 Occurrences starti ng 02/07/2023 until 02/08/2024 Immunizations Immunization Date Immunization Notes Care Provider Jerry luther 11-12-2016 tuberculin skin test ; purified protein derivative solution, intradermal Tatiana Yap MD Work Phone: [facility] 08-10-2013 tetanus toxoid, redu yemi diphtheria toxoid, and acellular pertussis vaccine, adsorbed Tatiana Yap MD Work Phone: [facility] 10-03-1999 diphtheria, tetanus toxoids and acellular pertussis vaccine Tatiana Yap MD Work Phone: [facility] 10-03-1999 hepatitis B vaccine, pediatric or pediatric/adolescent dosage Tatiana Yap MD Work Phone: [facility] 10-03-1999 measles, mumps and rubella virus vaccine Tatiana Yap MD Work Phone: [facility] 10-03-1999 poliovirus vaccine, inactivated Tatiana Yap MD Work Phone: [facility] 01-14-1996 diphtheria, tetanus toxoids and acellular pertussis vaccine Tatiana Yap MD Work Phone: [facility] 01-14-1996 haemophilus influenz ae type b vaccine, conjugate unspecified formulation Tatiana Yap MD Work Phone: [facility] 01-14-1996 measles, mumps and rubella virus vaccine Tatiana Yap MD Work Phone: [facility] 05-21-1995 diphtheria, tetanus toxoids and acellular pertussis vaccine Tatiana Yap MD Work Phone: [facility] 05-21-1995 haemophilus influenz ae type b vaccine, conjugate unspecified formulation Tatiana Yap MD Work Phone: [facility] 05-21-1995 poliovirus vaccine, inactivated Tatiana Yap MD Work Phone: [facility] 02-21-1995 diphtheria, tetanus toxoids and acellular pertussis vaccine Tatiana Yap MD Work Phone: [facility] 02-21-1995 haemophilus influenz ae type b vaccine, conjugate unspecified formulation Tatiana Yap MD Work Phone: [facility] 02-21-1995 hepatitis B vaccine, pediatric or pediatric/adolescent dosage Tatiana Yap MD Work Phone: [facility] 02-21-1995 poliovirus vaccine, inactivated Tatiana Yap MD Work Phone: [facility] 1994 diphtheria, tetanus toxoids and acellular pertussis vaccine Tatiana Yap MD Work Phone: [facility] 1994 haemophilus influenz ae type b vaccine, conjugate unspecified formulation Tatiana Yap MD Work Phone: [facility] 1994 hepatitis B vaccine, pediatric or pediatric/adolescent dosage Tatiana Yap MD Work Phone: [facility] 1994 poliovirus vaccine, inactivated Tatiana Yap MD Work Phone: [facility] 1994 hepatitis B vaccine, pediatric or pediatric/adolescent dosage Tatiana Yap MD Work Phone: [facility] Payers Date Payer Category Payer Medicaid [id number] 2022 Medicaid [place] [id number] 2022-Present [address] [place] [address] [id number] 2022 Self-pay 2019 Unknown [id number] 1994 Unknown [id number]. 173 1994 Unknown [id number] [id number]. 173 1994 Unknown [id number] [id number]. 173 1994 Unknown [id number] [id number]. 593 1994 Unknown [id number] [id number]. 593 1994 Unknown [id number] [id number]. 593 1994 Unknown [id number] [id number]. 593 1994 Unknown [id number] [id number]. 593 1994 Unknown [id number] [id number]. 593 1994 Unknown [id number] [id number]. 175 1994 Unknown [id number] 1259 1994 Unknown [id number] [id number]. 1259 1994 Unknown [id number] 2.16.840.1.797491.3.579.2. 1259 1994 Unknown [id number] 2.16.840.1.920671.3.579.2. 1259 1994 Unknown [id number] 2.16.840.1.467970.3.579.2. 1259 1994 Unknown [id number] 2.16.840.1.177113.3.579.2. 1286 1994 Unknown [id number] 2.16.840.1.345289.3.579.2. 1286 1959 Private Health Insurance [id number] Private Health Insurance [facility] [id number] Unknown [id number] 531 Social History Date Type Detail Facility Start: 09-01-2020 End: 09-28-2020 Tobacco smoking status [facility] Current every day smoker [facility] Phone: Start: 03-20-2020 End: 09-01-2020 Cigarettes smoked current (pack per day) - Reported [facility] Start: 09-01-2020 End: 01-19-2021 Tobacco use and exposure Never used [employer] Phone: Start: 09-01-2020 End: 09-28-2020 Alcohol intake Current drinker of alcohol (finding) [facility] Phone: Start: 12-23-2019 Alcohol Comment weekly [place] Phone: Start: 1995 Sex Assigned At Not on file [facility] Phone: Start: 04-22-2021 End: 05-16-2021 Exposure to SARS-CoV-2 (event) Not sure [facility] Exposure to SARS-CoV -2 (event) Yes [facility] Start: 01-19-2021 End: 02-05-2023 Tobacco smoking status [facility] Ex-smoker [facility] End: 11-19-2020 History of tobacco use Current smoker [facility] Phone: Start: 05-02-2021 End: 02-07-2023 Alcohol intake Ex-drinker (finding) [facility] Phone: Start: 08-17-2018 End: 03-20-2020 [facility] 1995 Sex Assigned At Female F [facility] End: 02-11-2020 [facility] of tobacco use Tobacco U se Types Packs/Day Years Used Date Smoking Tobacco: Former Cigarettes Quit: 2020 Vaping/E-cigarettes Smokeless Tobacco: Former Quit: 11/06/2020 [facility] Start: 02-05-2023 Tobacco use and exposure Forme r smokeless tobacco user [facility] End: 11-06-2020 History of tobacco use User of smokeless tobacco [facility] Frequency of Communication with Friends and Family More than three times a week [facility] Start: 08-17-2018 Education 12 [facility] Start: 05-18-2022 Alcohol Comment social, every other weekend [facility] Start: 10-31-2022 [facility] Clinical Notes 12-04-2020 to 02-07-2023 Sangita [...] Yes Have you been seen here at [facility] in a previous ? No Recent ER visits or hospitalizations? No Bring blood sugar log or meter with you today? (Please bring them with you for every visit at [facility]) N/A Traveled outside the country in the [...] TESTS AND ULTRASOUND REPORTS: Referral records and [facility] chart were reviewed Pertinent Ultrasound findings [...] operators who are performing tests using either [employer] or [employer] systems and is limited to laboratories that [...] repeat. Fact Sheet for Healthcare Providers: https://www.f da.gov/media/313571/download Fact Sheet for Patients: https://www.fda.gov/media/095379/d ownload HABITS: Patient activity no restrictions, diet [...] a but with an anticipation of excellent long-term outcomes. In regards to the spontaneous processes, [...] previously recommended threshold of 160/110. Reference: PMID: 76721612, 2021. Blood pressures do increase as progresses [...] preeclampsia prevention as is recommended by the [employer] Committee Opinion No. 743. [...] aspirin vs 10.3% no aspirin, p=0.45) (PMBID: 48335917). Given well-established benefits baby aspirin for the prevention of preeclampsia, I recommend initiating baby aspirin even in the setting of history of Joe-en-Y surgery. 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 Patient does have ultrasound and office [...] procedures Referring and communicating with other health caregiver assisted living (not separately reported) Documenting clinical information in the electronic or other health record Tatiana Yap MD Maternal- Medicine [facility] [address] [facility] 1st [place] [address] [facility], the CDC, and other organizations representing maternal and public health professionals recommend that , , and lactating people and those considering receive the COVID-19 vaccination. Vaccination is the best method to reduce maternal and complications of SARS-CoV-2 infection. This document was created with [employer] technology. Though I make every effort to review the dictation as it is transcribed, on occasion the spoken word can be misinterpreted by the technology leading to inappropriate words, phrases, or sentences. This note is addressed to the requesting provider as a consultation for clinical guidance. Specific medical abbreviations are occasionally used and those are generally approved by the [employer]?Board of?Obstetrics and?Gynecology?as well as?Maddison hodgson abbreviations. The above plan of care was based solely on the diagnoses for which a consultation was requested. ?More frequent testing may be indicated based on her other medical/obstetrical conditions. The management of other or medical conditions is beyond the scope of requested consultation and will continue to be followed by the primary chemical operator or primary care provider. Note to [...] of the practitioner. documented in this encounter [facility] 10-12-2022 Evaluation note Encounter Date Diagnosis [...] take Sudafed and/or Mucinex for congestion. Take pzrs-ihk-vknbf er Robitussin or Delsym for cough. Follow-up with your family physician if no improvement in 2 to 3 days. Off work tomorrow. Oct, Cough (ICD-10 - R05.9) Oct, Bronchitis (ICD-10 - J40) Acute bronchitis material was printed [facility] Other 10-19-2022 NotePatient Education Materials [id number] History of Present illness Narrative* Payal Richardson [...] this [facility] Phone: 1(859) 801-901104-07-2022 Hospital Discharge instructions* Instructions* Hannah Zavaleta RN - 05/17/2021 Discharge Instructions for Bariatric Surgery You had a Laparoscopic Sleeve Gastrectomy (36745) surgery to treat obesity. Recovery from this [...] scheduled appointment, please call the office at [phone]. Call Your Doctor If Any of the [...] sent through Care Everywhere. * Enoxaparin (Lovenox) (Peruvian) * Video: How to Give Yourself an Anticoagulant (Blood Thinner) Shot (Peruvian) documented in this [facility] Phone: [phone]) 311-317103-23-2022 Hospital Discharge instructions* Instructions* Kendal Wilhelm APRN [...] Day of Surgery/Procedure As a patient at [facility] you can expect quality medical and nursing care that is centered on your individual needs. Our goal is to make your surgical experience as comfortableas possible Directions to the Surgery Center The surgery Center at [facility] is located in the Emergency Room parking lot on [facility] or there is additional parking across the street. The address is [address] [place] [address]. Please check in at the Surgery Center [...] on the day of surgery please contact [phone] or [phone] If you have any other questions regarding your procedure/surgery please call your surgeon's office. documented in this [facility] Phone: [phone]) 700-163003-23-2022 History of Present illness Narrative* Eloise Chi RN - 05/02/2021 11:00 AM EDT Obtained medical clearance for OR on 05/16/2021. * LAURA Garcai CNP - 05/02/2021 11:00 AM EDT Anesthesia [...] syndrome) Under care of team 05/02/2021 pcp-Dr MelgozaPsmbfn-hutsilq-atpm visit april 2021 Patient was evaluated in PAT & anesthesia guidelines were applied. NPO guidelines, medication instructions and scheduled arrival time were reviewed with patient. Anesthesia contacted: no Medical or cardiac clearance ordered: no, medical clearance obtained. LAURA Garcia CNP 05/02/21 11:53 AM [facility]: 1(730) 491-800110-25-2021 Evaluation note* Encounter Date Diagnosis Assessment Notes Treatment Notes Treatment Clinical Notes Nov, Contact with and (suspected) exposure to other viral communicable diseases (ICD-10 - Z20.828) Nov, Viral URI with cough (ICD-10 - J06.9) No COVID test completed at this time. Advised patient that will tx as viral URI. Supportive care as directed, increase fluids and rest, Tylenol/Motrin as directed, rx of [place] and Flonase as directed, cool mist humidifier, [...] care instructions given in writting by [facility] Care At Home document [employer] Other Evaluation note* Diagnosis LYNN (obstructive sleep apnea) Obstructive sleep apnea (adult) (pediatric) documented in this encounter [facility] Phone: evaluation note* Diagnosis S/P laparoscopic sleeve gastrectomy- Primary Post-op pain Other acute postoperative pain documented in this encounter [employer] Phone: evaluation noteNo assessment information available [facility] Work Phone: Evaluation noteNo InformationNort [employer] Other Evaluation note* Diagnosis Hypertension affecting in second trimester- Primary 16 weeks gestation of Dichorionic diamniotic twin in second trimester H/O gastric sleeve documented in this encounter [facility] System[facility] general Narrative - Reported* Type Description Date Medical History METABOLIC SYNDROME Medical History SYNCOPE Medical History anxiety Surgical History WISDOM TEETH Surgical History TONSILECTOMY Surgical History ENDOSCOPY AND COLONSCOPY Surgical History C section Hospitalization History see above [facility] Other Hisolno general Narrative - Reported* Type Description Date Medical History METABOLIC SYNDROME Medical History SYNCOPE Medical History anxiety Surgical History WISDOM TEETH Surgical History TONSILECTOMY Surgical History ENDOSCOPY AND COLONSCOPY Surgical History C section Surgical History gastric sleeve Hospitalization History see above [facility] Other Hisqxbs general Narrative - Reported* Type Description Date Medical History METABOLIC SYNDROME Medical History SYNCOPE Medical History anxiety Surgical History WISDOM TEETH Surgical History TONSILECTOMY Surgical History ENDOSCOPY AND COLONSCOPY Surgical History C section Surgical History gastric sleeve Surgical History cholcystectomy 09/10/2022 Hospitalization History see above [facility] Other InstructionsNot on filedocumented in this encounter [facility] SystemInstructionsNot on filedocumented in this encounter [facility] SystemReason for visit Narrative* Auth/Cert Specialty Diagnoses / Procedures Referred By Contac t Referred To Contact Diagnoses Morbid obesity (HCC) Obstructive sleep apnea GERD (gastroesophageal reflux disease) MORBID OBESITY, OBSTRUCTIVE SLEEP APNEA, GERD Procedures WV LAP, JAY RESTRICT PROC, LONGITUDINAL GASTRECTOMY XI ROBOTIC LAPAROSCOPIC GASTRECTOMY SLEEVE , LIVER BIOPSY, EGD- GI SCHEDULED Patricia Curry, DO [address] [address] [employer] [address] [place] [address] Referral ID Status Reason Start Date Expiration Date Visits Re quested Visits Authorized [id number] 1 1 [employer] Phone: Summary Purpose Family History No Family [...] Diagnostic Sleep Study Ike Ortiz MD [address] [address] Specialty Diagnoses / Procedures Referred By Contac t Referred To Contact Diagnoses Hypertension affecting in second trimester 16 weeks gestation of Dichorionic diamniotic twin in second trimester Procedures ECG 12 lead Tatiana Yap MD [address] [place] [address] Referral ID Status Reason Start Date Expiration Date V isits Requested Visits Authorized [id number] Pending Review 02/07/2023 02/07/2024 1 1 Chief Complaint and Reason for Visit Chief Complaint Dysuria Additional Source Comments INFORMATION SOURCE (unrecogn ized section and content) DATE CREATED AUTHOR 07/31/2017 [facility] DATE CREATED AUTHOR AUTHOR'S ORGANIZ ATION 05/21/2021 [facility] DATE CREATED AUTHOR AUTHOR'S ORGANIZ ATION 12/03/2021 [facility] DATE CREATED AUTHOR AUTHOR'S ORGANIZ ATION 01/12/2022 [facility] DATE CREATED AUTHOR AUTHOR'S ORGANIZ ATION 02/11/2022 [facility] DATE CREATED AUTHOR AUTHOR'S ORGANIZ ATION 09/13/2022 [facility] DATE CREATED AUTHOR AUTHOR'S ORGANIZ ATION 02/06/2023 [facility] EPIC DATE CREATED AUTHOR AUTHOR'S ORGANIZ ATION 02/09/2023 [facility] Reason for Visit (unrecogniz ed section and content) Status Reason Specialty Diagnoses / Procedures Referred By Contact Referred To Contact Closed Sleep Center Diagnoses LYNN (obstructive sleep apnea) Procedures Baseline Diagnostic Sleep Study Ike Ortiz MD [address] [address] Status Reason Specialty Diagnoses / Procedures Referre d By Contact Referred To Contact Diagnoses K21.9 GERD E66.9 OBESITY Procedures W[place] EGD TRANSORAL BIOPSY SINGLE/MULTIPLE EGD BIOPSY Patricia Curry, DO [address] [facility] [address] [place] [address] [facility] Reason Comments twin HX C/S HX gastric sleeve HX PTD Care Teams (unrecognized sec tion and content) Connie Cleaner Relationship Specialty Start Date End Date Stephane Martin MD [address] [place] [address] PCP - General 05/17/20 Connie Cleaner Relationship Specialty Start Date End Date Stephane Martin MD [address] [place] [address] PCP - General 05/17/20 Team Status: Inactive Member Role Status Dates Ale Shields APRN Attending Provider Active Connie Cleaner Relationship Specialty Start Date End Date Margot Toure DO [address] [place] [address] PCP - General [facility] Medicine 01/03/23 Connie Cleaner Relationship Specialty Start Date End Date Margot Toure DO [address] [place] [address] PCP - General Family Medicine 01/03/23 Ordered [...] (Given - Provider: Sharmin Sam APRN - AGRICULTURAL COMMODITIES INSPECTOR) ceFAZolin (ANCEF) 3000 mg in sterile water [...] to back table, 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 [employer] provides no warranty or guarantee of the accuracy or completeness of information in this document.
== END 2023-02-24 14:05 | disposition left against medical advice (07) ==
LOC: ER 14:09
PROVIDERS: Emergency Provider Emergency Medicine
DX: Z53.21 Procedure and treatment not carried out due to patient leaving prior to being seen by health care provider (principal)

== ENCOUNTER 2023-02-24 14:15 | Observation (INO) | payer MEDICAID, SELFPAY ==
--- OUTSIDE RECORDS SUMMARY | 2023-02-24 14:22 | XMS_ITS | CCD ---
Author Name Unknown Address [address] [place] [address] Organization [facility] Care Team Providers Care Ged Instructor Name Role Phone Neo Anderson Unavailable Unavailable Neo Anderson Unavailable Unavailable Jose Maria Santoyo MD, [facility] Primary Care Provider DOC OKEEFE Referring Unavailable JOSE MARIA SANTOYO STEPHANE Primary Care Unavailabl e DOC OKEEFE E Referring Unavailable [facility] Primary Care Unavailabl e IKE ORTIZ Referring Unavailable [facility], [facility] Primary Care Unavailabl e Kimberly, Ale [...] Unavailable Margot Toure DO Primary Care Provider [phone] NIGEL ADAMES Attending Unavailable YAW MARGOT G Attending Unavailable NIGEL ADAMES Attending Unavailable YAW MARGOT Sudheer Attending Unavailable YAW MARGOT G Referring Unavailable YAW MARGOT G Primary Care Unavailable TATIANA YAP Attending Unavailable MARGOT TOURE Referring Unavailable YAW MARGOT G Primary Care Unavailable Allergies Allergy Classification Reported Allergen(s) Allergy Type Date of Onset Reaction(s) Facility (3 sources) Ibuprofen; Translations: [IBUPROFEN] Drug Allergy 09-19-2021 [facility] Medications Current Medications Medication Drug Class(es) [...] 30 mg oral tablet (1 source) Uncompetitive Z-hphqzi-V-aspartate Receptor Antagonist, Sigma-1 Agonist Start: 2020 take 1 tablet by mouth every eight hours [place] DMT 30-30 MG 1 tablet Orally every [...] Iron (2 sources) Iron Active lactobacillus acidophilus [id number] unt / pectin 100 mg oral tablet [...] extended release oral tablet (2 sources) Uncompetitive I-lujvoc-H-asparta te Receptor Antagonist, Sigma-1 Agonist Start: 01-14-2022 [...] - Officeon 2022 Radiology Study observation (narrative) [facility] HIV 1&2 AB/AG Screen (P24 AG )on 12-20-2022 HIV 1&2 AB/AG Non-Reactive [facility] Hepatitis B surface antigeno n 12-20-2022 Hepatitis B Surface Antigen Negative [facility] No Panel Informationon 12-20 [facility] Rubella IGG immune statuson 12-20-2022 Rubella immune IgG 1.96 [facility] Syphilis Total(Unknown Syphi lis Status)on 12-20-2022 Syphilis Non-Reactive [facility] System Ultrasound - Officeon 2022 SEE SCANNED REPORt MANUAL LY TRANSCRIBED RESULTS [facility] COVID + FLU Quick Testingon 10-12-2022 SARS-CoV-2 (COVID-19) RNA BECCA+probe Ql (Unsp spec) negtaive [facility] [employer] Other COVID + FLU Quick Testing Negative [employer] Other Basic Metabolic Profon 09-11 Anion gap [Moles/Vol] 9 mmol/L Normal 9-17 [facility] Comment on above: Performed By: #### B MP, CBC, PT #### [employer] [address] [place] [address] Assistant Librarian: Anhtony Aguilar MD Calcium [Mass/Vol] 8.8 mg/dL Normal 8.6-10.4 [facility] Comment on above: Performed By: #### B MP, CBC, PT #### [facility] [address] [place] [address] Assistant Librarian: Anthony Aguilar MD Chloride [Moles/Vol] 106 mmol/L Normal 98-107 [facility] Comment on above: Performed By: #### B MP, CBC, PT #### [facility] [address] [place] [address] Assistant Librarian: Anthony Aguilar MD CO2 [Moles/Vol] 23 mmol/L Normal 20-31 [facility] Comment on above: Performed By: #### B MP, CBC, PT #### [facility] [address] [place] [address] Assistant Librarian: Anthony Aguilar MD Creatinine [Mass/Vol] 0.7 mg/dL Normal 0.5-0.9 [facility] Comment on above: Performed By: #### B MP, CBC, PT #### [address] [address] Assistant Librarian: Anthony Aguilar MD GFR/1.73 sq M.predicted among non-blacks MDRD (S/P/Bld) [Vol rate/Area] mL/min/{1.73_m2} Normal >60 [facility] Comment on above: Result Comment: These results [...] By: #### B MP, CBC, PT #### [facility] [address] [place] [address] Assistant Librarian: Anthony Aguilar MD Glucose [Mass/Vol] 79 mg/dL Normal 70-99 [facility] Comment on above: Performed By: #### B MP, CBC, PT #### [facility] [address] [place] [address] Assistant Librarian: Anthony Aguilar MD Potassium [Moles/Vol] 4.1 mmol/L Normal 3.7-5.3 [facility] Comment on above: Performed By: #### B MP, CBC, PT #### [facility] [address] [place] [address] Assistant Librarian: Anthony Aguilar MD Sodium [Moles/Vol] 138 mmol/L Normal 135-144 [facility] Comment on above: Performed By: #### B MP, CBC, PT #### [facility] [address] [place] [address] Assistant Librarian: Anthony Aguilar MD Urea nitrogen [Mass/Vol] 11 mg/dL Normal 6-20 [facility] Comment on above: Performed By: #### B FIFI, CBC, PT #### [facility] [address] [place] [address] Assistant Librarian: Anthony Aguilar MD CBCon 09-11-2022 Erythrocyte distribution width (RBC) [Ratio] 13.2 % Normal 11.8-14.4 [facility] Comment on above: Performed By: #### B FIFI, CBC, PT #### [facility] [address] [place] [address] Assistant Librarian: Anthony Aguilar MD Hematocrit (Bld) [Volume fraction] 41.6 % Normal 36.3-47.1 [facility] Comment on above: Performed By: #### B MP, CBC, PT #### [facility] [address] [place] [address] Assistant Librarian: Anthony Aguilar MD Hemoglobin (Bld) [Mass/Vol] 13.3 g/dL Normal 11.9-15.1 [facility] Comment on above: Performed By: #### B MP, CBC, PT #### [address] [address] Assistant Librarian: Anthony Aguilar MD MCH (RBC) [Entitic mass] 28.3 pg Normal 25.2-33.5 [facility] Comment on above: Performed By: #### B MP, CBC, PT #### [address] [address] Assistant Librarian: Anthony Aguilar MD MCHC (RBC) [Mass/Vol] 32.0 g/dL Normal 28.4-34.8 [facility] Comment on above: Performed By: #### B MP, CBC, PT #### [address] [address] Assistant Librarian: Anthony Aguilar MD MCV (RBC) [Entitic vol] 88.5 fL Normal 82.6-102.9 [facility] Comment on above: Performed By: #### B MP, CBC, PT #### [address] [address] Assistant Librarian: Anthony Aguilar MD NRBC Automated 0.0 per 100 WBC Normal 0.0 [facility] Comment on above: Performed By: #### B MP, CBC, PT #### [address] [address] Assistant Librarian: Anthony Aguilar MD Platelet mean volume (Bld) [Entitic vol] 9.7 fL Normal 8.1-13.5 [facility] Comment on above: Performed By: #### B MP, CBC, PT #### [facility] [address] [place] [address] Assistant Librarian: Anthony Aguilar MD Platelets (Bld) [#/Vol] 276 10*3/uL Normal 138-453 [facility] Comment on above: Performed By: #### B MP, CBC, PT #### [address] [address] Assistant Librarian: Anthony Aguilar MD RBC (Bld) [#/Vol] 4.70 10*6/uL Normal 3.95-5.11 [facility] Comment on above: Performed By: #### B MP, CBC, PT #### [address] [address] Assistant Librarian: Anthony Aguilar MD WBC (Bld) [#/Vol] 7.4 10*3/uL Normal 3.5-11.3 [facility] Comment on above: Performed By: #### B MP, CBC, PT #### [facility] [address] [place] [address] Assistant Librarian: Anthony Aguilar MD PTon 09-11-2022 INR Coag (PPP) [Relative time] 1.0 {INR} Normal [facility] Comment on above: Result Comment: Therapeutic Range: Moderate Anticoagulant Intensity: INR = 2.0-3.0 High Anticoagulant Intensity: INR = 2.5-3.5 Performed By: #### B MP, CBC, PT #### [facility] [address] [place] [address] Assistant Librarian: Anthony Aguilar MD PT Coag (PPP) [Time] 12.9 s Normal 11.7-14.9 [facility] Comment on above: Performed By: #### B MP, CBC, PT #### [address] [address] Assistant Librarian: Anthony Aguilar MD Surgical Pathologyon 023 Surgical Pathology (NOTE) Path Number: [id number] -- Diagnosis -- GALLBLADDER, CHOLECYSTECTOMY: -CHRONIC CHOLECYSTITIS [...] lesions or periductal lymph nodes are identified. Impregnator sections 1c. tm Microscopic Description Microscopic examination performed. Processing Lab: [address] [address] Interpretation Performed at [address] [phone] SURGICAL PATHOLOGY CONSULTATION Patient Name: FINA VELÁSQUEZ [facility] Rec: [id number] [facility] ANATOMIC PATHOLOGY [address] [place] [phone] [facility] Urine Cultureon 02-08-2022 Bacteria identified Cx Nom (U) Reason for Exam Dysuria Urine ORGANISM: Escherichia coli (O:ESCCOL) Armstrong Count >100,000 Aerobic LISA Charge (NMIC56) ---- [...] RESISTANT TO ALL B-LACTAM DRUGS. PERFORMED BY: [place] [address] PATHOLOGIST IS MANAGER SAMIRA WEN M.D. [facility] Comment on above: Performed By: #### C UU #### [address] VC CONSULT FOLLOWUPon 2021 VC CONSULT FOLLOWUP Patient: FINA VELÁSQUEZ Exam Date: 01/08/2022 : 1995 Gender:F Ordering : DR JAMEEL BURGOS M.D. Admission #: [id number] Family : Order #: [id number] CLICK HERE TO VIEW EXAM RADIOLOGY REPORT [...] Hinton M.D. on 01/08/2022 at 10:10 Normal [facility] VC EXT VENOUS RT LIMITEDon 1 03-10-2021 VC EXT VENOUS RT LIMITED Patient: FINA VELÁSQUEZ Exam Date: 01/08/2022 : 1995 Gender:F Ordering : DR JAMEEL BURGOS M.D. Admission #: [id number] Family : Order #: [id number] CLICK HERE TO VIEW EXAM RADIOLOGY REPORT [...] Hinton M.D. on 01/08/2022 at 10:05 Normal [facility] VC ENDOVENOUS ABL 1ST V RTon 12-31-2021 VC ENDOVENOUS ABL 1ST V RT Patient: FINA VELÁSQUEZ Exam Date: 12/31/2021 : 1995 Gender:F Ordering : DR JAMEEL BURGOS M.D. Admission #: [id number] Family : Order #: [id number] CLICK HERE TO VIEW EXAM RADIOLOGY REPORT [...] Jameel Burgos MD on 12/31/2021 at 11:06 [facility] ED Clinical Summaryon 2021 ED Clinical Summary [facility] ? Urgent Care [address] [place] [address] Clinical Summary PERSON INFORMATION Name: VERNON VELÁSQUEZ Age: 26 Years Sex: FEMALE : 1995 MRN: Acct#: Visit Reason: OTTERBEIN PHYSICAL Arrival: 11/28/2021 10:39:56 Discharge: 11/28/2021 10:59:00 LOS: 000 00:20 Check In: 11/28/2021 10:39:56 Checkout: 11/28/2021 10:59:00 Address: [address] [place] [address] PCP: Provider, None PROVIDER INFORMATION VITALS INFORMATION Vital Sign Triage Latest Temperature Tympanic Temperature Temporal Artery Pulse Rate O2 Sat Respiratory Rate Blood Pressure / / MEDICAL INFORMATION Medications Given: Allergy Information: No known allergies PHYSICIAN DOCUMENTATION DISCHARGE INFORMATION: Discharge Disposition: Eloped Discharge Location: PATIENT EDUCATION INFORMATION Instructions: Follow-Up: DIAGNOSIS: Patient Understands: Comment: [facility] ED Patient Summaryon ED Patient Summary [facility] ? Urgent Care [address] [place] [address] [id number] PATIENT DISCHARGE INSTRUCTIONS Patient Information Name: VERNON VELÁSQUEZ Age: 26 Years Date of : 1995 Reason For Visit: MICHELLE PHYSICAL Arrival Time: 11/28/2021 10:39:56 Primary Care Physician: Provider, None Attending Physician: Nuno Bradshaw Comment: Patient Education Medication Information: The exam and treatment you received today in the [facility] Emergency Department were for an urgent problem and are not intended as complete care. It is important for you to follow up with a doctor, nurse practitioner, or physician?s early childhood assistant for ongoing care. If your symptoms [...] so we can reach you if necessary. [facility] Emergency Department has provided you with a complete list of medications post discharge. Please inform your mill crane operator/provider of your visit and for further [...] for Disease Control and Prevention October 2013 [facility] VC CONSULT FOLLOWUPon 2021 VC CONSULT FOLLOWUP Patient: FINA VELÁSQUEZ Exam Date: 11/28/2021 : 1995 Gender:F Ordering : DR JAMEEL BURGOS M.D. Admission #: [id number] Family : Order #: [id number] CLICK HERE TO VIEW EXAM RADIOLOGY REPORT [...] Hinton M.D. on 11/28/2021 at 10:04 Normal [facility] VC EXT VENOUS LT LIMITEDon 1 VC EXT VENOUS LT LIMITED Patient: FINA VELÁSQUEZ Exam Date: 11/28/2021 : 1995 Gender:F Ordering : DR JAMEEL BURGOS M.D. Admission #: [id number] Family : Order #: [id number] CLICK HERE TO VIEW EXAM RADIOLOGY REPORT [...] Hinton M.D. on 11/28/2021 at 09:45 Normal [facility] VC ENDOVENOUS ABL 1ST V LTon 11-22-2021 VC ENDOVENOUS ABL 1ST V LT Patient: FINA VELÁSQUEZ Exam Date: 11/22/2021 : 1995 Gender:F Ordering : DR JAMEEL BURGOS M.D. Admission #: [id number] Family : Order #: [id number] CLICK HERE TO VIEW EXAM RADIOLOGY REPORT [...] Burgos MD on 11/22/2021 at 09:04 Normal [facility] VC COMP CONSULTATIONon 10-17 VC COMP CONSULTATION Patient: FINA VELÁSQUEZ Exam Date: 10/17/2021 : 1995 Gender:F Ordering : DR JAMEEL BURGOS M.D. Admission #: [id number] Family : Order #: [id number] CLICK HERE TO VIEW EXAM RADIOLOGY REPORT [...] M.D. on 10/17/2021 at 12:46 Normal [facility] Basic Metabolic Panelon 04-0 Anion gap [Moles/Vol] 8 mmol/L Low 9 - 17 mmol/L [email or web address] Calcium [Mass/Vol] 8.6 mg/dL 8.6 - 10. 4 mg/dL [email or web address] Chloride [Moles/Vol] 106 mmol/L 98 - 107 mmol/L [email or web address] CO2 [Moles/Vol] 23 mmol/L 20 - 31 mmol/L [email or web address] Creatinine [Mass/Vol] 0.67 mg/dL 0.50 - 0.90 mg/dL [email or web address] GFR >60 >60 mL/min [email or web address] GFR Non- >60 >60 mL/min [email or web address] GFR/1.73 sq M.predicted MDRD (S/P/Bld) [Vol rate/Area] [email or web address] Comment on above: Average GFR for 20-2 9 years old: 116 mL/min/1.73sq m Chronic Kidney Disease: <60 mL/min/1.73sq m Kidney failure: <15 mL/min/1.73sq m eGFR calculated using average adult body mass. Additional eGFR calculator available at: http://www.[employer].TopPatch/multiple_crcl_2011.htm Glucose [Mass/Vol] 83 mg/dL 70 - 99 mg/dL [facility] Interpretation and review of laboratory results Abnormal [facility] Potassium [Moles/Vol] 3.9 mmol/L 3.7 - 5.3 mmol/L [facility] Sodium [Moles/Vol] 137 mmol/L 135 - 144 mmol/L [facility] Urea nitrogen (BldV) [Mass/Vol] 7 mg/dL 6 - 20 mg/dL [facility] CBCon 05-17-2021 Hematocrit (Bld) [Volume fraction] 34.4 % Low 36.3 - 47.1 % [facility] Hemoglobin.gastroin testinal spec 1 Ql (Stl) 11.0 g/dL Low 11.9 - 15.1 g/dL [facility] Interpretation and review of laboratory results Abnormal [facility] MCH (RBC) [Entitic mass] 27.2 pg 25.2 - 33.5 pg [facility] MCHC (RBC) [Mass/Vol] 32.0 g/dL 28.4 - 34.8 g/dL [facility] MCV (RBC) [Entitic vol] 85.1 fL 82.6 - 102.9 fL [facility] NRBC Automated 0.0 0.0 per 100 WBC [facility] Platelet distribution width (Bld) [Ratio] 14.1 % 11.8 - 14.4 % [facility] Platelet mean volume (Bld) [Entitic vol] 10.1 fL 8.1 - 13.5 fL [facility] Platelets (Bld) [#/Vol] 302 10*3/uL [facility] RBC (Bld) [#/Vol] 4.04 10*6/uL 3.95 - 5.1 1 m/uL [facility] WBC (Bld) [#/Vol] 13.7 10*3/uL High [facility] SURGICAL PATHOLOGY REPORTon 05-17-2021 Surgical [...] x 0.5 cm piece of adipose tissue. Impregnator sections 1cs. tm Microscopic Description 1 H&E reviewed. Microscopic examination performed. SURGICAL PATHOLOGY CONSULTATION Patient Name: FINA VELÁSQUEZ [facility] Rec: [id number] Path Number: [id number] [facility] ANATOMIC PATHOLOGY [address] [place] [address]. [place], [place] [address] [facility] Basic Metabolic Panelon 04-0 Anion gap [Moles/Vol] 10 mmol/L 9 - 17 mmol/L [email or web address] Calcium [Mass/Vol] 8.7 mg/dL 8.6 - 10. 4 mg/dL [facility] Chloride [Moles/Vol] 105 mmol/L 98 - 107 mmol/L [email or web address] CO2 [Moles/Vol] 23 mmol/L 20 - 31 mmol/L [email or web address] Creatinine [Mass/Vol] 0.75 mg/dL 0.50 - 0.90 mg/dL [facility] GFR >60 >60 mL/min [facility] GFR Non- >60 >60 mL/min [email or web address] GFR/1.73 sq M.predicted MDRD (S/P/Bld) [Vol rate/Area] [facility] Comment on above: Average GFR for 20-2 9 years old: 116 mL/min/1.73sq m Chronic Kidney Disease: <60 mL/min/1.73sq m Kidney failure: <15 mL/min/1.73sq m eGFR calculated using average adult body mass. Additional eGFR calculator available at: http://www.[employer].TopPatch/multiple_crcl_2012.htm Glucose [Mass/Vol] 132 mg/dL High 70 - 99 mg/dL [facility] Interpretation and review of laboratory results Abnormal [facility] Potassium [Moles/Vol] 3.5 mmol/L Low 3.7 - 5.3 mmol/L [facility] Sodium [Moles/Vol] 138 mmol/L 135 - 144 mmol/L [facility] Urea nitrogen (BldV) [Mass/Vol] 10 mg/dL 6 - 20 mg/dL [facility] CBC without Diffon Hematocrit (Bld) [Volume fraction] 38.8 % 36.3 - 47.1 % [facility] Hemoglobin.gastroin testinal spec 1 Ql (Stl) 12.6 g/dL 11.9 - 15.1 g/dL [facility] Interpretation and review of laboratory results Abnormal [facility] MCH (RBC) [Entitic mass] 27.2 pg 25.2 - 33.5 pg [facility] MCHC (RBC) [Mass/Vol] 32.5 g/dL 28.4 - 34.8 g/dL [facility] MCV (RBC) [Entitic vol] 83.8 fL 82.6 - 102.9 fL [facility] NRBC Automated 0.0 0.0 per 100 WBC [facility] Platelet distribution width (Bld) [Ratio] 13.9 % 11.8 - 14.4 % [facility] Platelet mean volume (Bld) [Entitic vol] 9.8 fL 8.1 - 13.5 fL [facility] Platelets (Bld) [#/Vol] 340 10*3/uL [facility] RBC (Bld) [#/Vol] 4.63 10*6/uL 3.95 - 5.1 1 m/uL [facility] WBC (Bld) [#/Vol] 15.0 10*3/uL High [facility] POC Glucose Fingerstickon Glucose [Mass/Vol] 77 mg/dL 65 - 105 mg/dL [facility] POCT urine pregnancyon 05-16 Beta HCG ( test) Ql (U) Negative NEGATIVE [facility] Comment on above: Specimens with hCG l evels near the threshold of the test (25 mIU/mL) may give a negative or indeterminate result. In such cases, another test should be performed with a new specimen in 48-72 hours. If early is suspected clinically in this setting, correlation with quantitative serum b-hCG level is suggested. [facility] [id number] 05-15-2021 SARS-CoV-2 (COVID-19) RNA BECCA+probe Ql (Unsp spec) Normal [facility] Comment on above: Performed By: #### C OVID #### [facility] [address] [place], [place] [id number] Assistant Librarian: Anthony Aguilar MD [facility] [address] [place] [address] [place] [address] Assistant Librarian: Jameel Lawler MD SARS-CoV-2 (COVID-19) RNA BECCA+probe Ql (Unsp spec) Not detected Normal NOTDET [facility] Comment on above: Result Comment: The specimen is NEGATIVE for SARS-CoV-2, the novel coronavirus associated with COVID-19. A negative result does not rule out COVID-19. Lucrecia SARS-CoV-2 for use on the [employer]rettapproved0/8800 [employer] is a real-time RT-PCR test intended [...] this assay. Fact sheet for Healthcare Providers: https://www.fda.gov/media/851417/download Fact sheet for Patients: https://www.fda.gov/media/420333/download METHODOLOGY: RT-PCR Performed By: #### C OVID #### [facility] [address], [place] [id number] Assistant Librarian: Anthony Aguilar MD [facility] [address] [place] [address] Assistant Librarian: Jameel Lawler MD [id number] 05-14-2021 SARS-CoV-2 (COVID-19) RNA BECCA+probe Ql (Unsp spec) .NASOPHARYNGEAL SWAB Normal [facility] Comment on above: Performed By: #### C OVID #### [facility] [address], [place] [address] Assistant Librarian: Anthony Aguilar MD [facility] [address] [place] [address] Assistant Librarian: Jameel Lawler MD Nicotine, Bloodon 05-05-2021 0-KC-Baxsnvmm <2 ng/mL [facility] h Cotinine <2 ng/mL [facility] Nicotine <2 ng/mL [facility] Comment on above: (NOTE) Consistent with [...] developed and its performance characteristics determined by [employer]. It has not been cleared or approved by the [place] Food and Drug Administration. This test was performed in a CLIA certified laboratory and is intended for clinical purposes. Performed By: [employer] [address] [place] [address] Lockstitch Cup Setter: Yara Rodriguez MD [facility] EKG 12 LeadOrdered By: Diaz Conway on 05-03-2021 Atrial Rate 72 BPM [email or web address] Work Phone: P [place] 45 degrees [email or web address] Work Phone: P-R Interval 142 ms [email or web address] Work Phone: Q-T Interval 376 ms [email or web address] Work Phone: QRS Duration 100 ms [email or web address] Work Phone: QTc Calculation (Bazett) 411 ms [email or web address] Work Phone: R [place] 22 degrees [email or web address] Work Phone: T [place] 32 degrees [email or web address] Work Phone: Ventricular Rate 72 BPM [facility] Work Phone: [email or web address] Work Phone: EKG 12 Leadon 05-03-2021 Normal sinus rhythm Normal ECG No previous ECGs available [facility] Diaz Elias MD - 05/03/2021 Normal sinus rhythm Normal ECG No previous ECGs available [email or web address] Work Phone: APTTon 05-02-2021 aPTT Coag (Bld) [Time] 25.0 s [email or web address] Comment on above: IV Heparin Therapy Range: 48.6-77.8 Basic Metabolic Panelon 04-11 Anion gap [Moles/Vol] 15 mmol/L 9 - 17 mmol/L [email or web address] Calcium [Mass/Vol] 9.8 mg/dL 8.6 - 10. 4 mg/dL [email or web address] Chloride [Moles/Vol] 102 mmol/L 98 - 107 mmol/L [email or web address] CO2 [Moles/Vol] 21 mmol/L 20 - 31 mmol/L [email or web address] Creatinine [Mass/Vol] 0.55 mg/dL 0.50 - 0.90 mg/dL [email or web address] GFR >60 >60 mL/min [email or web address] GFR Non- >60 >60 mL/min [email or web address] GFR/1.73 sq M.predicted MDRD (S/P/Bld) [Vol rate/Area] [email or web address] Comment on above: Average GFR for 20-2 9 years old: 116 mL/min/1.73sq m Chronic Kidney Disease: <60 mL/min/1.73sq m Kidney failure: <15 mL/min/1.73sq m eGFR calculated using average adult body mass. Additional eGFR calculator available at: http://www.[employer].TopPatch/multiple_crcl_2012.htm Glucose [Mass/Vol] 85 mg/dL 70 - 99 mg/dL [facility] Potassium [Moles/Vol] 4.5 mmol/L 3.7 - 5.3 mmol/L [facility] Sodium [Moles/Vol] 138 mmol/L 135 - 144 mmol/L [facility] Urea nitrogen (BldV) [Mass/Vol] 11 mg/dL 6 - 20 mg/dL [facility] CBCon 05-02-2021 Hematocrit (Bld) [Volume fraction] 41.0 % 36.3 - 47.1 % [facility] Hemoglobin.gastroin testinal spec 1 Ql (Stl) 12.9 g/dL 11.9 - 15.1 g/dL [facility] MCH (RBC) [Entitic mass] 26.9 pg 25.2 - 33.5 pg [facility] MCHC (RBC) [Mass/Vol] 31.5 g/dL 28.4 - 34.8 g/dL [facility] MCV (RBC) [Entitic vol] 85.6 fL 82.6 - 102.9 fL [facility] NRBC Automated 0.0 0.0 per 100 WBC [facility] Platelet distribution width (Bld) [Ratio] 13.7 % 11.8 - 14.4 % [facility] Platelet mean volume (Bld) [Entitic vol] 9.8 fL 8.1 - 13.5 fL [facility] Platelets (Bld) [#/Vol] 380 10*3/uL [facility] RBC (Bld) [#/Vol] 4.79 10*6/uL 3.95 - 5.1 1 m/uL [facility] WBC (Bld) [#/Vol] 11.2 10*3/uL [facility] No Panel Informationon 05-02 [facility] Protime-INRon 05-02-2021 INR Coag (Bld) [Relative time] 1.0 {INR} [facility] Comment on above: Therapeutic Range: Moderate Anticoagulant Intensity: INR = 2.0-3.0 High Anticoagulant Intensity: INR = 2.5-3.5 PT Coag (PPP) [Time] 10.6 s [facility] XR CHEST (2 VW)on 05-02-2021 No [...] No free air. IMPRESSION: No acute process. [employer] Phone: Radiology Study observation (narrative) [employer] Phone: XR CHEST (2 VW)Ordered By: Santos Florez on 05-02-2021 [employer] Phone: [id number] 12-05-2020 SARS-CoV-2 (COVID-19) RNA BECCA+probe Ql (Unsp spec) Normal [facility] Comment on above: Performed By: #### C OVID #### [employer] [address] [place] [address] Assistant Librarian: Anthony Aguilar MD [facility] [address] [place] [address] Assistant Librarian: Jameel Lawler MD SARS-CoV-2 (COVID-19) RNA BECCA+probe Ql (Unsp spec) Not detected Normal [facility] Comment on above: Result Comment: The specimen is NEGATIVE for SARS-CoV-2, the novel coronavirus associated with COVID-19. A negative result does not rule out COVID-19. Lucrecia SARS-CoV-2 for use on the [employer] is a real-time RT-PCR test intended [...] this assay. Fact sheet for Healthcare Providers: https://www.fda.gov/media/798531/download Fact sheet for Patients: https://www.fda.gov/media/727290/download METHODOLOGY: RT-PCR Performed By: #### C OVID #### [facility] [address], [place] [id number] Assistant Librarian: Anthony Aguilar MD [facility] [address] [place] [address] [place] [address] Assistant Librarian: Jameel Lawler MD [id number] 12-04-2020 SARS-CoV-2 (COVID-19) RNA BECCA+probe Ql (Unsp spec) .NASOPHARYNGEAL SWAB Normal [facility] Comment on above: Performed By: #### C OVID #### [facility] [address] [place] [address] Assistant Librarian: Anthony Aguilar MD [facility] [address] [place] [address] [place] [address] Assistant Librarian: Jameel Lawler MD Vital Signs Date Time Vital Sign Value Performing Clinician Facility 02-07-2023 13:34-0500 Body height 170.2 cm Tatiana Yap MD Work Phone: [facility] 02-07-2023 13:34-0500 Body mass index (BMI) [Ratio] 34.14 kg/m2 Tatiana Yap MD Work Phone: [facility] 02-07-2023 13:34-0500 Body weight 98.88 kg Tatiana Yap MD Work Phone: [facility] 02-07-2023 13:34-0500 Diastolic blood pressure 83 mm[Hg] Tatiana Yap MD Work Phone: [facility] 02-07-2023 13:34-0500 Heart rate 76 /min Tatiana Yap MD Work Phone: [facility] 02-07-2023 13:34-0500 Systolic blood pressure 126 mm[Hg] Tatiana Yap MD Work Phone: [facility] 10-12-2022 10:10-0400 Body height 170.18 cm Lilia Willow Other [facility] Other 10-12-2022 10:10-0400 Body mass index (BMI) [Ratio] 32.86 kg/m2 Lilia Willow Other [facility] Other 10-12-2022 10:10-0400 Body temperature 99 [degF] Lilia Willow Other [facility] Other 10-12-2022 10:10-0400 Body weight 95.17 kg Lilia Willow Other [facility] Other 10-12-2022 10:10-0400 Diastolic blood pressure 74 mm[Hg] Lilia Willow Other [facility] Other 10-12-2022 10:10-0400 SaO2% (BldA) [Mass fraction] 98 % Lilia Willow Other [employer] Other 10-12-2022 10:10-0400 Systolic blood pressure 118 mm[Hg] Lilia Willow Other [facility] Other 05-17-2021 15:52-0400 Body temperature 98.49 [degF] Patricia Antoinette SOLITARIO Work Phone: [email or web address] 04-07-2022 15:52-0400 Diastolic blood pressure 97 mm[Hg] Patricia Curry DO Work Phone: [email or web address] 05-17-2021 15:52-0400 Heart rate 70 /min Patricia Curry DO Work Phone: [email or web address] 05-17-2021 15:52-0400 Respiratory rate 18 /min Patricia Curry [employer] Work Phone: [email or web address] 05-17-2021 15:52-0400 SaO2% (BldA) [Mass fraction] 99 % Patricia Curry [employer] Work Phone: [email or web address] 05-17-2021 15:52-0400 Systolic blood pressure 138 mm[Hg] Patricia Curry DO Work Phone: [email or web address] 05-16-2021 06:06-0400 Body mass index (BMI) [Ratio] 43.16 kg/m2 Patricia Curry [employer] Work Phone: [email or web address] 05-16-2021 06:06-0400 Body weight 125 kg Patricia Curry [employer] Work Phone: [email or web address] 05-16-2021 05:57-0400 Body height 170.2 cm Patricia Curry [employer] Work Phone: [email or web address] 05-02-2021 10:35-0400 Body height 170.2 cm Stvz 1 [email or web address] 05-02-2021 10:35-0400 Body mass index (BMI) [Ratio] 44.95 kg/m2 St[facility] 1 [email or web address] 05-02-2021 10:35-0400 Body temperature 97.2 [degF] Stvz 1 [email or web address] 05-02-2021 10:35-0400 Body weight 130.18 kg Stvz 1 [email or web address] 05-02-2021 10:35-0400 Diastolic blood pressure 85 mm[Hg] Stvz 1 [email or web address] 05-02-2021 10:35-0400 Heart rate 66 /min Stvz 1 [email or web address] 05-02-2021 10:35-0400 Respiratory rate 18 /min Stvz 1 [email or web address] 05-02-2021 10:35-0400 SaO2% (BldA) [Mass fraction] 99 % Stvz 1 [email or web address] 05-02-2021 10:35-0400 Systolic blood pressure 122 mm[Hg] Stvz 1 [email or web address] 12-04-2020 17:00-0400 Body height 170.18 cm Ale Ginty Other [employer] Other 12-04-2020 17:00-0400 Body mass index (BMI) [Ratio] 43.85 kg/m2 Ale Ginty Other [facility] [employer] Other 12-04-2020 17:00-0400 Body temperature 97.4 [degF] Ale Ginty Other [facility] Other 12-04-2020 17:00-0400 Body weight 127.01 kg Ale Ginty Other [employer] Other 12-04-2020 17:00-0400 SaO2% (BldA) [Mass fraction] 99 % Ale Ginty Other [employer] Other Encounters Encounter Date Encounter Type Care Provider Facility Start: 02-07-2023 End: 02-07-2023 ambulatory [facility] Start: 02-07-2023 End: 02-07-2023 Office consultation new/estab patient 60 min Tatiana Yap MD Work Phone: [facility] Comment on above: Hypertension affecti ng in second trimester (Primary Dx); 16 weeks gestation of ; Dichorionic diamniotic twin in second trimester; H/O gastric sleeve Start: 02-05-2023 End: 02-05-2023 ambulatory NIGEL HOPE Not Available Start: 02-05-2023 Chart abstracting Tatiana Yap MD Work Phone: [facility] Start: 02-04-2023 End: 02-04-2023 ambulatory MARGOT Sudheer YAW Not Available Start: 01-15-2023 End: 01-15-2023 ambulatory NIGEL HOPE Not Available Start: 01-07-2023 End: 01-07-2023 ambulatory MARGOT Sudheer GUPTAE Not Available Start: 12-20-2022 End: 12-21-2022 ambulatory NIGEL HOPE Not Available Start: 10-12-2022 End: 10-12-2022 ambulatory Lilia Daugherty Other [facility] Other Start: 10-12-2022 Office outpatient vi sit 15 minutes Lilia Daugherty [facility] Start: 09-11-2022 End: 09-11-2022 ambulatory PATRICIA Alka [facility] Start: 02-10-2022 End: 02-10-2022 ambulatory Ale Shields Other [facility] [employer] Other Start: 02-10-2022 Telephone encounter Ale Shields [facility] [address] Start: 02-08-2022 End: 02-08-2022 ambulatory Ale Shields Facility:[facility] Start: 02-08-2022 End: 02-08-2022 ambulatory LAURA Shields Work Phone: [facility] Work Phone: Start: 02-08-2022 End: 02-08-2022 Departed Referred LAURA Shields Work Phone: [facility] [place] Work Phone: Start: 01-08-2022 End: 01-09-[address] JAMEEL BURGOS Facility:[facility] Start: 12-31-2021 End: 01-01-[address] JAMEEL BURGOS Facility:[facility] Start: 11-28-2021 End: 11-28-2021 ambulatory Giuliana Provider Facility:[facility] Start: 11-28-2021 End: 11-29-[address] [...] 05-14-2021 End: 05-19-2021 ambulatory CYN OKEEFE [facility] Start: 05-02-2021 End: 05-06-2021 Subsequent hospital visit by physician Dwight Pat Rm 1 [facility] Pre-Admit Testing Start: 12-04-2020 End: 12-09-2020 ambulatory CYN OKEEFE [facility] Start: 12-04-2020 Office outpatient vi sit 15 minutes Ale Kimberly [facility] Start: 10-20-2020 End: 10-20-2020 Subsequent hospital visit by physician Patricia Curry DO Work Phone: [facility] [place] Start: 09-06-2020 End: 09-07-2020 ambulatory IKE ANGLE [facility] Start: 09-06-2020 End: 09-06-2020 Subsequent hospital visit by physician Henrietta Sleep Rm 1 [facility] Comment on above: LYNN (obstructive sle ep apnea) Start: 05-28-2017 End: 05-29-2017 Ambulatory Neo [facility] Facility:[id number] Procedures Date Procedure Procedure Detail Performing [...] metabolic pane l calcium total Patricia Curry [employer] Work Phone: Start: 05-16-2021 End: 05-16-2021 Laps gstrc rstrictiv px longitudinal gastrectomy Patricia Curry DO Work Phone: Start: 05-16-2021 Glucose blood reagen t strip Patricia Curry DO Work Phone: Start: 05-16-2021 Urine test visual color cmprsn meths Patricia Curry [employer] Work Phone: Start: 05-02-2021 Assay of nicotine Sim Curry [employer] Work Phone: Start: 05-02-2021 Basic metabolic pane l calcium total Patricia Curry DO Work Phone: Start: 05-02-2021 Radiologic exam ches t 2 views Patricia Curry DO Work Phone: Start: 05-02-2021 Ecg routine ecg w/le ast 12 lds i&r only Patricia Curry [employer] Work Phone: Start: 06-14-2020 Microscopic observat ion [Identifier] in Cervix by Cyto stain Tatiana Yap MD Work Phone: Plan of Treatment Date Care Activity Detail Author Start: 02-08-2024 Adult BMI Screening Adult BMI Screen ing [facility] Start: 02-08-2024 Tobacco Screening Tobacco Screening [facility] Start: 01-04-2024 Adult BMI Screening Adult BMI Screen ing [facility] Start: 01-04-2024 Tobacco Screening Tobacco Screening [facility] Start: 08-11-2023 DTaP,Tdap and Td Vaccines (7 - Td or Tdap) DTaP,Tdap and Td Vaccines (7 - Td or Tdap) [facility] Start: 08-11-2023 DTaP/Tdap/Td vaccine (7 - Td or Tdap) DTaP/Tdap/Td vaccine (7 - Td or Tdap) [facility] Start: 06-15-2023 Screening for malign ant neoplasm of cervix Pap Smear [facility] Start: 03-05-2023 End: 03-05-2023 Patient encounter procedure 03/05/2023 11:30 AM EST Office Visit [facility] at [facility] [address] [place] [phone] Bentley Sanchez MD [address] [place] [address] [facility] Start: 03-05-2023 End: 03-05-2023 Patient encounter procedure 03/05/2023 9:30 AM EST Appointment [facility] [address] [place] [phone] [facility] Start: 02-07-2023 End: 02-07-2023 Patient encounter procedure [facility] Start: 10-11-2022 Influenza vaccination Influenza Vacc ine [facility] Start: 09-19-2022 Adult BMI Follow Up Plan Adult BMI Follow Up Plan [facility] Start: 02-08-2022 Bacteria identified in Urine by Culture Urine Culture [facility] Start: 01-08-2022 Hemoglobin A1c measurement A1C test (Diabetic or Prediabetic) [facility] Start: 10-11-2021 Influenza vaccination Flu vacc ine (Season Ended) [facility] Start: 07-14-2021 Hemoglobin A1c measurement A1C test (Diabetic or Prediabetic) [facility] Work Phone: Start: 06-18-2021 End: 06-18-2021 Patient encounter procedure 06/18/2021 Office Visit BariatricDeann Roca, FLATWORK FEEDER - MEDICAL SOCIAL CONSULTANT [address] [place] [address] [facility] Start: 05-24-2021 End: 05-24-2021 Patient encounter procedure 05/24/2021 Office Visit Patricia Islas DO [address] [place] [address] [facility] Invasive Bariatric Surg Start: 05-16-2021 End: 05-16-2021 Admission to same day surgery center 05/16/2021 Surgery IP Unit Patricia Curry DO [address] [place] [address] XI ROBOTIC LAPAROSCOPIC GASTRECTOMY SLEEVE , LIVER BIOPSY, EGD- GI SCHEDULED [facility] Comment on above: XI ROBOTIC LAPAROSCO PIC GASTRECTOMY SLEEVE , LIVER BIOPSY, EGD- GI SCHEDULED Start: 05-16-2021 End: 05-16-2021 Laps gstrc rstrictiv px longitudinal gastrectomy GASTRECTOMY SLEEVE LAPAROSCOPIC ROBOTIC MORBID OBESITY, OBSTRUCTIVE SLEEP APNEA, GERD 05/16/2021 7:10 AM EDT [facility] Start: 05-16-2021 Subsequent hospital visit by physician 05/16/2021 Hospital Encounter IP Unit Patricia Curry DO [address] [place] [address] [facility] Start: 05-13-2021 End: 05-13-2021 Patient encounter procedure 05/13/2021 Appointment Pre-Admission Testing [facility] PRE ADMIT Start: 05-10-2021 End: 05-10-2021 Patient encounter procedure 05/10/2021 Office Visit Patricia Islas DO [address] [place] [id number] [facility] Start: 11-22-2020 End: 11-22-2020 Nursing evaluation of patient and report 11/22/2020 Nurse Only Bariatrics [facility] Start: 11-06-2020 End: 11-06-2020 Patient encounter procedure [facility] Start: 11-03-2020 End: 11-03-2020 Patient encounter procedure 11/03/2020 Office Visit Bariatrics Deann Navarro, FLATWORK FEEDER - MEDICAL SOCIAL CONSULTANT [address] [facility] [address] [place] [phone] [facility] Start: 10-11-2020 Influenza vaccination Flu vaccine (# 1) [facility] Start: 09-28-2020 End: 09-28-2020 Patient encounter procedure 09/28/2020 Office Visit Bariatrics Deann Navarro, FLATWORK FEEDER - MEDICAL SOCIAL CONSULTANT [address] [facility] [address] [place] [phone] [facility] Start: 09-01-2015 Screening for malign ant neoplasm of cervix [facility] Start: 2009 HIV screening HIV screen [facility] Start: 2006 COVID-19 Vaccine (1) COVID-19 Vaccin e (1) [facility] Work Phone: Start: 2006 Depression Screen Depression Screen [facility] Start: 2006 Depression Screening Depression Scre [facility] Start: 2005 HPV vaccine (1 - 2-d ose series) HPV vaccine (1 - 2-dose series) [facility] Start: 2000 Pneumococcal 0-64 ye ars Vaccine (1 of 2 - PPSV23) Pneumococcal 0-64 years Vaccine (1 of 2 - PPSV23) [facility] Work Phone: Start: 09-01-1999 COVID-19 Vaccine (1) COVID-19 Vaccin e (1) [facility] Start: 09-01-1995 Varicella vaccine (1 of 2 - 2-dose childhood series) Varicella vaccine (1 of 2 - 2-dose childhood series) [email or web address] Start: 1994 Hepatitis C screening Hepatitis C [facility] End: 09-06-2020 Baseline Diagnostic Sleep Study Baseline Diagnostic Sleep Study Sleep Center Routine LYNN (obstructive sleep apnea) 1 Occurrences starting 09/06/2020 until 09/06/2020 [employer] Phone: Comment on above: 1 Occurrences starti ng 09/06/2020 until 09/06/2020 End: 02-08-2024 Calcium [Mass/volume] in Serum or Plasma Calcium Lab Routine 16 weeks gestation of H/O gastric sleeve 1 Occurrences starting 02/07/2023 until 02/08/2024 [facility] Comment on above: 1 Occurrences starti ng 02/07/2023 until 02/08/2024 End: 02-08-2024 CBC panel - Blood by Automated count CBC without diff Lab Routine Hypertension affecting in second trimester 16 weeks gestation of Dichorionic diamniotic twin in second trimester 1 Occurrences starting 02/07/2023 until 02/08/2024 [employer] Work Phone: Comment on above: 1 Occurrences starti ng 02/07/2023 until 02/08/2024 End: 02-08-2024 Comprehensive metabolic 2000 panel - Serum or Plasma Comprehensive metabolic panel Lab Routine Hypertension affecting in second trimester 16 weeks gestation of Dichorionic diamniotic twin in second trimester 1 Occurrences starting 02/07/2023 until 02/08/2024 [facility] Comment on above: 1 Occurrences starti ng 02/07/2023 until 02/08/2024 Continuous pulse oximetry Pulse oximetry, continuous Respiratory Care Routine Every 4hr until discontinued starting 05/16/2021 [employer] Phone: Comment on above: Every 4hr until disc ontinued starting 05/16/2021 End: 02-08-2024 Cyanocobalamin vitamin b-12 Vitamin B12 Lab Routine 16 weeks gestation of H/O gastric sleeve 1 Occurrences starting 02/07/2023 until 02/08/2024 [facility] Comment on above: 1 Occurrences starti ng 02/07/2023 until 02/08/2024 End: 02-08-2024 ECG 12 lead ECG 12 lead ECG Routine Hypertension affecting in second trimester 16 weeks gestation of Dichorionic diamniotic twin in second trimester 1 Occurrences starting 02/07/2023 until 02/08/2024 [facility] Comment on above: 1 Occurrences starti ng 02/07/2023 until 02/08/2024 End: 02-08-2024 Folate Folate Lab Routine 16 weeks gestation of H/O gastric sleeve 1 Occurrences starting 02/07/2023 until 02/08/2024 [facility] Comment on above: 1 Occurrences starti ng 02/07/2023 until 02/08/2024 End: 02-08-2024 Iron and TIBC Iron and TIBC Lab Routine 16 weeks gestation of H/O gastric sleeve 1 Occurrences starting 02/07/2023 until 02/08/2024 [facility] Comment on above: 1 Occurrences starti ng 02/07/2023 until 02/08/2024 End: 02-08-2024 LDH LDH Lab Routine Hypertension affecting in second trimester 16 weeks gestation of Dichorionic diamniotic twin in second trimester 1 Occurrences starting 02/07/2023 until 02/08/2024 [facility] Comment on above: 1 Occurrences starti ng 02/07/2023 until 02/08/2024 End: 02-08-2024 Natriuretic peptide B [Mass/volume] in Blood B-type natriuretic peptide Lab Routine Hypertension affecting in second trimester 16 weeks gestation of Dichorionic diamniotic twin in second trimester 1 Occurrences starting 02/07/2023 until 02/08/2024 [facility] Comment on above: 1 Occurrences starti ng 02/07/2023 until 02/08/2024 Oxygen therapy [[facility] Data Set] Initiate Oxygen Therapy Protocol Respiratory Care Routine As Needed until discontinued starting 05/16/2021 [employer] Phone: Comment on above: As Needed until disc ontinued starting 05/16/2021 End: 02-08-2024 Protein creat ratio Protein creat ratio Lab Routine Hypertension affecting in second trimester 16 weeks gestation of Dichorionic diamniotic twin in second trimester 1 Occurrences starting 02/07/2023 until 02/08/2024 [facility]: 1 Occurrences starti ng 02/07/2023 until 02/08/2024 End: 02-08-2024 Protein, urine, 24 hour Protein, urine, 24 hour Lab Routine Hypertension affecting in second trimester 16 weeks gestation of Dichorionic diamniotic twin in second trimester 1 Occurrences starting 02/07/2023 until 02/08/2024 [facility] Comment on above: 1 Occurrences starti ng 02/07/2023 until 02/08/2024 Spirometry panel Incentive isiah metry Respiratory Care Routine Every 2hr while awake until discontinued starting 05/16/2021 [employer] Phone: Comment on above: Every 2hr while awak e until discontinued starting 05/16/2021 Surgical Pathology Surgical Path ology Lab Routine Release Upon Ordering for 1 Occurrences starting 05/16/2021 [employer] Phone: Comment on above: Release Upon Orderin g for 1 Occurrences starting 05/16/2021 End: 02-08-2024 Thiamin Vitamin B1, whole blood Thiamin Vitamin B1, whole blood Lab Routine 16 weeks gestation of H/O gastric sleeve 1 Occurrences starting 02/07/2023 until 02/08/2024 [facility] Comment on above: 1 Occurrences starti ng 02/07/2023 until 02/08/2024 End: 02-08-2024 Urate [Mass/volume] in Serum or Plasma Uric acid Lab Routine Hypertension affecting in second trimester 16 weeks gestation of Dichorionic diamniotic twin in second trimester 1 Occurrences starting 02/07/2023 until 02/08/2024 [facility] Comment on above: 1 Occurrences starti ng 02/07/2023 until 02/08/2024 End: 02-08-2024 Vitamin D 25 hydroxy Vitamin D 25 hydroxy Lab Routine 16 weeks gestation of H/O gastric sleeve 1 Occurrences starting 02/07/2023 until 02/08/2024 [facility] Comment on above: 1 Occurrences starti ng 02/07/2023 until 02/08/2024 Immunizations Immunization Date Immunization Notes Care Provider Jerry luther 11-12-2016 tuberculin skin test ; purified protein derivative solution, intradermal Tatiana Yap MD Work Phone: [facility] 08-10-2013 tetanus toxoid, redu yemi diphtheria toxoid, and acellular pertussis vaccine, adsorbed Tatiana Yap MD Work Phone: [facility] 10-03-1999 diphtheria, tetanus toxoids and acellular pertussis vaccine Tatiana Yap MD Work Phone: [facility] 10-03-1999 hepatitis B vaccine, pediatric or pediatric/adolescent dosage Tatiana Yap MD Work Phone: [facility] 10-03-1999 measles, mumps and rubella virus vaccine Tatiana Yap MD Work Phone: [facility] 10-03-1999 poliovirus vaccine, inactivated Tatiana Yap MD Work Phone: [facility] 01-14-1996 diphtheria, tetanus toxoids and acellular pertussis vaccine Tatiana Yap MD Work Phone: [facility] 01-14-1996 haemophilus influenz ae type b vaccine, conjugate unspecified formulation Tatiana Yap MD Work Phone: [facility] 01-14-1996 measles, mumps and rubella virus vaccine Tatiana Yap MD Work Phone: [facility] 05-21-1995 diphtheria, tetanus toxoids and acellular pertussis vaccine Tatiana Yap MD Work Phone: [facility] 05-21-1995 haemophilus influenz ae type b vaccine, conjugate unspecified formulation Tatiana Yap MD Work Phone: [facility] 05-21-1995 poliovirus vaccine, inactivated Tatiana Yap MD Work Phone: [facility] 02-21-1995 diphtheria, tetanus toxoids and acellular pertussis vaccine Tatiana Yap MD Work Phone: [facility] 02-21-1995 haemophilus influenz ae type b vaccine, conjugate unspecified formulation Tatiana Yap MD Work Phone: [facility] 02-21-1995 hepatitis B vaccine, pediatric or pediatric/adolescent dosage Tatiana Yap MD Work Phone: [facility] 02-21-1995 poliovirus vaccine, inactivated Tatiana Yap MD Work Phone: [facility] 1994 diphtheria, tetanus toxoids and acellular pertussis vaccine Tatiana Yap MD Work Phone: [facility] 1994 haemophilus influenz ae type b vaccine, conjugate unspecified formulation Tatiana Yap MD Work Phone: [facility] 1994 hepatitis B vaccine, pediatric or pediatric/adolescent dosage Tatiana Yap MD Work Phone: [facility] 1994 poliovirus vaccine, inactivated Tatiana Yap MD Work Phone: [facility] 1994 hepatitis B vaccine, pediatric or pediatric/adolescent dosage Tatiana Yap MD Work Phone: [facility] Payers Date Payer Category Payer Medicaid [id number] 2022 Medicaid [place] [id number] 2022-Present [address] [place] [address] [id number] 2022 Self-pay 2019 Unknown [id number] [id number]. [id number] 1994 Unknown [id number] 2.16.840.1.370173.3.579.2. 173 1994 Unknown [id number] 2.16.840.1.462557.3.579.2. 173 1994 Unknown [id number] 2.16.840.1.523964.3.579.2. 173 1994 Unknown [id number] 2.16.840.1.414316.3.579.2. 593 1994 Unknown [id number] 2.16.840.1.749779.3.579.2. 593 1994 Unknown [id number] 2.16.840.1.346992.3.579.2. 593 1994 Unknown [id number] 2.16.840.1.114629.3.579.2. 593 1994 Unknown [id number] 2.16.840.1.960378.3.579.2. 593 1994 Unknown [id number] 2.16.840.1.239678.3.579.2. 593 1994 Unknown [id number] 2.16.840.1.911806.3.579.2. 175 1994 Unknown [id number] 2.16.840.1.419631.3.579.2. 1259 1994 Unknown [id number] 2.16.840.1.394841.3.579.2. 1259 1994 Unknown [id number] 2.16.840.1.561372.3.579.2. 1259 1994 Unknown [id number] 2.16.840.1.196364.3.579.2. 1259 1994 Unknown [id number] 2.16.840.1.293064.3.579.2. 1259 1994 Unknown [id number] 2.16.840.1.684968.3.579.2. 1286 1994 Unknown [id number] 2.16.840.1.472993.3.579.2. 1286 1959 Private Health Insurance [id number] 1.2.840.681518.1.13.239.2. [id number] Private Health Insurance [facility] [id number] Unknown [id number] 2.16.840.1.982239.3.579.2. 531 Social History Date Type Detail Facility Start: 09-01-2020 End: 09-28-2020 Tobacco smoking status [facility] Current every day smoker [employer] Phone: Start: 03-20-2020 End: 09-01-2020 Cigarettes smoked current (pack per day) - Reported [employer] Start: 09-01-2020 End: 01-19-2021 Tobacco use and exposure Never used [employer] Phone: Start: 09-01-2020 End: 09-28-2020 Alcohol intake Current drinker of alcohol (finding) [employer] Phone: Start: 12-23-2019 Alcohol Comment weekly [employer] Phone: Start: 1995 Sex Assigned At Not on file [facility] [employer] Phone: Start: 04-22-2021 End: 05-16-2021 Exposure to SARS-CoV-2 (event) Not sure [email or web address] Exposure to SARS-CoV -2 (event) Yes [email or web address] Start: 01-19-2021 End: 02-05-2023 Tobacco smoking status [facility] Ex-smoker [email or web address] End: 11-19-2020 History of tobacco use Current smoker [employer] Phone: Start: 05-02-2021 End: 02-07-2023 Alcohol intake Ex-drinker (finding) [employer] Phone: Start: 08-17-2018 End: 03-20-2020 [facility] 1995 Sex Assigned At Female F [facility] End: 02-11-2020 History of tobacco use [facility] History of tobacco use Tobacco U se Types Packs/Day Years Used Date Smoking Tobacco: Former Cigarettes Quit: 2020 Vaping/E-cigarettes Smokeless Tobacco: Former Quit: 11[facility]06[facility]2020 [facility] Start: 02-05-2023 Tobacco use and exposure Forme r smokeless tobacco user [facility] End: 11-06-2020 History of tobacco use User of smokeless tobacco [facility] Frequency of Communication with Friends and Family More than three times a week [facility] Start: 08-17-2018 Education 12 [facility] Start: 05-18-2022 Alcohol Comment social, every other weekend [facility] Start: 10-31-2022 [facility] Clinical Notes 12-04-2020 to 02-07-2023 Sangita [...] Yes Have you been seen here at [facility] in a previous ? No Recent ER visits or hospitalizations? No Bring blood sugar log or meter with you today? (Please bring them with you for every visit at [facility]) N/A Traveled outside the country in the [...] TESTS AND ULTRASOUND REPORTS: Referral records and [facility] chart were reviewed Pertinent Ultrasound [...] operators who are performing tests using either [employer] or [employer] systems and is limited to laboratories that [...] repeat. Fact Sheet for Healthcare Providers: https://www.f da.gov/media/857411/download Fact Sheet for Patients: https://www.fda.gov/media/528987/d ownload HABITS: Patient activity no restrictions, diet [...] a but with an anticipation of excellent fdc outcomes. In regards to the spontaneous processes, [...] previously recommended threshold of 160/110. Reference: PMID: 76294798, 2021. Blood pressures do increase as progresses [...] preeclampsia prevention as is recommended by the [place] [employer]ne[employer] Committee Opinion No. 743. [...] aspirin vs 10.3% no aspirin, p=0.45) (PMBID: 07066324). Given well-established benefits baby aspirin for the prevention of preeclampsia, I recommend initiating baby aspirin even in the setting of history of Joe-en-Y surgery. Micronutrient Dosing Recommendations: Calcium: recommend 1000-1200mg daily; if deficient, recommend 1800-64775 mg PO daily in divided doses Vitamin [...] sooner if clinically indicated Follow up in [facility] in 4 weeks for anatomy and clinic follow-up DISPOSITION: At this point the patient is in complete care of her place change roof bolter. Patient does have ultrasound and office visit [...] procedures Referring and communicating with other health respiratory care specialist (not separately reported) Documenting clinical information in the electronic or other health record Tatiana Yap MD Maternal- Medicine [facility] [address] [place] [address] [facility], the CDC, and other organizations representing maternal and public health professionals recommend that , , and lactating people and those considering receive the COVID-19 vaccination. Vaccination is the best method to reduce maternal and complications of SARS-CoV-2 infection. This document was created with [employer] technology. Though I make every effort to review the dictation as it is transcribed, on occasion the spoken word can be misinterpreted by the technology leading to inappropriate words, phrases, or sentences. This note is addressed to the requesting provider as a consultation for clinical guidance. Specific medical abbreviations are occasionally used and those are generally approved by the [place]?Board of?Obstetrics and?Gynecology?as well as?Maddison hodgson abbreviations. The above plan of care was based solely on the diagnoses for which a consultation was requested. ?More frequent testing may be indicated based on her other medical/obstetrical conditions. The management of other or medical conditions is beyond the scope of requested consultation and will continue to be followed by the primary place change roof bolter or primary care provider. Note to patient: [...] of the practitioner. documented in this encounter [facility] 10-12-2022 Evaluation note Encounter Date Diagnosis [...] take Sudafed and/or Mucinex for congestion. Take ybzz-tdn-ktkhl er Robitussin or Delsym for cough. Follow-up with your family physician if no improvement in 2 to 3 days. Off work tomorrow. Oct, Cough (ICD-10 - R05.9) Oct, Bronchitis (ICD-10 - J40) Acute bronchitis material was printed [employer] Other 10-19-2022 NotePatient Education Materials [id number] History of Present illness Narrative* Payal Richardson [...] and patient voices understanding documented in this [facility] Phone: [phone] 275-966704-07-2022 Hospital Discharge instructions* Instructions* Hannah Zavaleta RN - 05/17/2021 Discharge Instructions for Bariatric Surgery You had a Laparoscopic Sleeve Gastrectomy (93402) surgery to treat obesity. Recovery from this [...] scheduled appointment, please call the office at [phone]. Call Your Doctor If Any of the [...] sent through Care Everywhere. * Enoxaparin (Lovenox) ([place]) * Video: How to Give Yourself an Anticoagulant (Blood Thinner) Shot ([place]) documented in this [facility] Phone: [phone]) 407-978803-23-2022 Hospital Discharge instructions* Instructions* Kendal Wilhelm APRN [...] Day of Surgery/Procedure As a patient at [facility] you can expect quality medical and nursing care that is centered on your individual needs. Our goal is to make your surgical experience as comfortableas possible Directions to the Surgery Center The surgery Center at [facility] is located in the Emergency Room parking lot on [facility] or there is additional parking across the street. The address is [address] [place] [address]. Please check in at the Surgery Center [...] on the day of surgery please contact [phone] or [phone] If you have any other questions regarding your procedure/surgery please call your surgeon's office. documented in this [facility] Phone: 1(298) 672-327503-23-2022 History of Present illness Narrative* Eloise Chi [...] syndrome) Under care of team 05/02/2021 pcp-Dr MelgozaEttxkg-ravrqta-chxz visit april 2021 Patient was evaluated in PAT & anesthesia guidelines were applied. NPO guidelines, medication instructions and scheduled arrival time were reviewed with patient. Anesthesia contacted: no Medical or cardiac clearance ordered: no, medical clearance obtained. LAURA Garcia CNP 05/02/21 11:53 AM documented [facility]: [phone]) 757-466910-25-2021 Evaluation note* Encounter Date Diagnosis Assessment Notes Treatment Notes Treatment Clinical Notes Nov, Contact with and (suspected) exposure to other viral communicable diseases (ICD-10 - Z20.828) Nov, Viral URI with cough (ICD-10 - J06.9) No COVID test completed at this time. Advised patient that will tx as viral URI. Supportive care as directed, increase fluids and rest, Tylenol/Motrin as directed, rx of [place] and Flonase as directed, cool mist humidifier, [...] Patient care instructions given in writting by [facility] At Home document [employer] Other Evaluation note* Diagnosis LYNN (obstructive sleep apnea) Obstructive sleep apnea (adult) (pediatric) documented in this encounter [employer] Phone: evaluation note* Diagnosis S/P laparoscopic sleeve gastrectomy- Primary Post-op pain Other acute postoperative pain documented in this encounter [employer] Phone: evaluation noteNo assessment information available [facility] Work Phone: Evaluation noteNo InformationNort careersmore Other Evaluation note* Diagnosis Hypertension affecting in second trimester- Primary 16 weeks gestation of Dichorionic diamniotic twin in second trimester H/O gastric sleeve documented in this encounter [facility] System[facility] general Narrative - Reported* Type Description Date Medical History METABOLIC SYNDROME Medical History SYNCOPE Medical History anxiety Surgical History WISDOM TEETH Surgical History TONSILECTOMY Surgical History ENDOSCOPY AND COLONSCOPY Surgical History C section Hospitalization History see above [employer] Other [employer]qu[employer] general Narrative - Reported* Type Description Date Medical History METABOLIC SYNDROME Medical History SYNCOPE Medical History anxiety Surgical History WISDOM TEETH Surgical History TONSILECTOMY Surgical History ENDOSCOPY AND COLONSCOPY Surgical History C section Surgical History gastric sleeve Hospitalization History see above [employer] Other Hisdtji general Narrative - Reported* Type Description Date Medical History METABOLIC SYNDROME Medical History SYNCOPE Medical History anxiety Surgical History WISDOM TEETH Surgical History TONSILECTOMY Surgical History ENDOSCOPY AND COLONSCOPY Surgical History C section Surgical History gastric sleeve Surgical History cholcystectomy 09/10/2022 Hospitalization History see above [employer] Other InstructionsNot on filedocumented in this encounter [facility] SystemInstructionsNot on filedocumented in this encounter [facility] SystemReason for visit Narrative* Auth/Cert Specialty Diagnoses / Procedures Referred By Contac t Referred To Contact Diagnoses Morbid obesity (HCC) Obstructive sleep apnea GERD (gastroesophageal reflux disease) MORBID OBESITY, OBSTRUCTIVE SLEEP APNEA, GERD Procedures FL LAP, JAY RESTRICT PROC, LONGITUDINAL GASTRECTOMY XI ROBOTIC LAPAROSCOPIC GASTRECTOMY SLEEVE , LIVER BIOPSY, EGD- GI SCHEDULED Patricia Curry, DO [address] [address] [email or web address] [address] [place] [address] Referral ID Status Reason Start Date Expiration Date Visits Re quested Visits Authorized [id number] 1 1 [employer] Phone: Summary Purpose Family History No Family [...] Diagnostic Sleep Study Ike Ortiz MD [address] [address] Specialty Diagnoses / Procedures Referred By Contac t Referred To Contact Diagnoses Hypertension affecting in second trimester 16 weeks gestation of Dichorionic diamniotic twin in second trimester Procedures ECG 12 lead Tatiana Yap MD [address] [place] [address] Referral ID Status Reason Start Date Expiration Date V isits Requested Visits Authorized [id number] Pending Review 02/07/2023 02/07/2024 1 1 Chief Complaint and Reason for Visit Chief Complaint Dysuria Additional Source Comments INFORMATION SOURCE (unrecogn ized section and content) DATE CREATED AUTHOR 07/31/2017 [facility] DATE CREATED AUTHOR AUTHOR'S ORGANIZ ATION 05/21/2021 [facility] DATE CREATED AUTHOR AUTHOR'S ORGANIZ ATION 12/03/2021 [facility] DATE CREATED AUTHOR AUTHOR'S ORGANIZ ATION 01/12/2022 [facility] DATE CREATED AUTHOR AUTHOR'S ORGANIZ ATION 02/11/2022 [facility] DATE CREATED AUTHOR AUTHOR'S ORGANIZ ATION 09/13/2022 [facility] DATE CREATED AUTHOR AUTHOR'S ORGANIZ ATION 02/06/2023 [facility] DATE CREATED AUTHOR AUTHOR'S ORGANIZ ATION 02/09/2023 [facility] Reason for Visit (unrecogniz ed section and content) Status Reason Specialty Diagnoses / Procedures Referred By Contact Referred To Contact Closed Sleep Center Diagnoses LYNN (obstructive sleep apnea) Procedures Baseline Diagnostic Sleep Study Ike Ortiz MD [address] [address] Status Reason Specialty Diagnoses / Procedures Referre d By Contact Referred To Contact Diagnoses K21.9 GERD E66.9 OBESITY Procedures FL EGD TRANSORAL BIOPSY SINGLE/MULTIPLE EGD BIOPSY Patricia Curry, DO [address] [facility] [address] [place] [address] [facility] Reason Comments twin HX C/S HX gastric sleeve HX PTD Care Teams (unrecognized sec tion and content) Ged Instructor Relationship Specialty Start Date End Date Stephane Martin MD [address] [place] [address] PCP - General 05/17/20 Ged Instructor Relationship Specialty Start Date End Date Stephane Martin MD [address] [place] [address] PCP - General 05/17/20 Team Status: Inactive Member Role Status Dates Ale Shields APRN Attending Provider Active Ged Instructor Relationship Specialty Start Date End Date Margot Toure DO [address] [place] [address] PCP - General [facility] Medicine 01/03/23 Ged Instructor Relationship Specialty Start Date End Date Margot Toure DO [address] [place] [address] PCP - General Family Medicine 01/03/23 Ordered [...] (Given - Provider: Sharmin Sam APRN - DRIVER EXAMINER) ceFAZolin (ANCEF) 3000 mg in sterile water [...] to back table, 1000 ml. 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 [employer] provides no warranty or guarantee of the accuracy or completeness of information in this document.
[2023-02-24 14:48] VITALS: BP 120/82; PULSE 79
[2023-02-24 15:02] LABS: Amnisure NEGATIVE (NEGATIVE)
== END 2023-02-24 15:45 | disposition home or self-care (01) ==
LOC: FBC 14:17
PROVIDERS: Admitting Provider Obstetrics & Gynecology; Visit Provider Obstetrics & Gynecology
DX: O26.899 Other specified pregnancy related conditions, unspecified trimester (principal); N89.8 Other specified noninflammatory disorders of vagina; Z3A.00 Weeks of gestation of pregnancy not specified
CPT/HCPCS: 59025; 84112; G0378; G0379

== ENCOUNTER 2023-03-24 06:47 | Observation (INO) | payer MEDICAID, SELFPAY ==
--- OUTSIDE RECORDS SUMMARY | 2023-03-24 06:51 | XMS_ITS | CCD ---
Author Name Unknown Address [address] [place] [address] Organization [facility] Care Team Providers Care Small Products Ii Assembler Name Role Phone Neo Anderson Unavailable Unavailable Neo Anderson Unavailable Unavailable Jose Maria Ortega MD, [facility] Primary Care Provider DOC OKEEFE Referring Unavailable JOSE MARIA ORTEGA STEPHANE Primary Care Unavailabl e SARY CYN Referring Unavailable JOSE MARIA ORTEGA, [facility] Primary Care Unavailabl e IKE MORENO Referring Unavailable [facility] Primary Care Unavailabl e Ale Harris Unavailable Provider, None Primary Care Unavailable Nuno [...] WEST, DR JAMEEL Stern Attending Unavailable REQUEST, DR NONE LISTED Primary Care Unavaila ble WEST, DR JAMEEL Stern Consulting Unavailable DR JAMEEL ABEBE V Admitting Unavailable Ale Shields Admitting Unavailable Ale Shields Attending Unavailable NO FAMILY, PHYSICIAN Primary Care Unavailable LAURA Shields Attending Provider [phone] Ale Shields Unavailable PATRICIA MARS Attending Unavailable PATRICIA MARS Admitting Unavailable YAW, MARGOT Primary Care Unavailable Lilia Daugherty Unavailable Yaw DO, Margot G Primary Care Provider YAW, MARGOT G Referring Unavailable YAW, MARGOT G Primary Care Unavailable TATIANA YAP Attending Unavailable YAW, MARGOT G Referring Unavailable YAW, MARGOT G Primary Care Unavailable ZACARIASNIGEL MORRIS Referring Unavailable YAW, MARGOT G Primary Care Unavailable KAROLINE HOPSON Attending Unavailable ZACARIAS, NIGEL Alka Referring Unavailable YAW, MARGOT G Primary Care Unavailable CHRISTIAN ARNETTY Attending Unavailable ZACARIAS, NIGEL Attending Unavailable ELOISE DOMINGUEZ Attending Unavailable YAW, MARGOT G Attending Unavailable ZACARIAS, NIGEL Attending Unavailable YAW, MARGOT G Attending Unavailable Yaw DO, Margot G Primary Care Provider Allergies Allergy Classification Reported Allergen(s) Allergy Type Date of Onset Reaction(s) Facility (10 sources) Ibuprofen; Translations: [IBUPROFEN] Drug Allergy 09-19-2021 [facility] Medications Current Medications Medication Drug [...] Oct, Active aspirin 81 mg chewable tablet (7 sources) Platelet Aggregation Inhibitor, Nonsteroidal Anti-inflammatory Drug aspirin 81 MG chewab le tablet Chew 81 mg in the morning. 0 Active B-12 1000 MCG (1 source) take 1 tablet under the tongue once daily B-12 1000 MCG 1 tablet under the tongue and allow to dissolve Sublingual Once a day Active busPIRone hydrochloride 30 mg oral tablet (11 sources) Start: 01-23-2023 End: 02-07-2023 take 1 tablet by mouth once daily busPIRone (Buspar) 30 MG tablet Indications: Generalized anxiety disorder (CMS/HCC) TAKE ONE TABLET BY MOUTH DAILY 90 tablet 3 01/23/2023 Active Start: 06-06-2020 take 1 tablet by tatiana th three times daily busPIRone (BUSPAR) 10 MG tablet Take 10 mg by mouth 3 times daily 0 06/06/2020 Active BuSpar Active Calcium Carbonate / vitamin D3 (6 sources) calcium carbonate/vitamin D3 (CALCIUM WITH VITAMIN [...] 30 mg oral tablet (1 source) Uncompetitive T-buwdvd-L-aspartate Receptor Antagonist, Sigma-1 Agonist Start: 2020 take 1 tablet by mouth every eight hours [place] DMT 30-30 MG 1 tablet Orally every [...] propionate 0.05 mg/actuat metered dose nasal spray (6 sources) Corticosteroid Start: 2022 End: 2023 take 2 spray(s) nasal route in the morning fluticasone (Flonase) 50 MCG/ACT nasal spray Indications: Acute sinusitis, recurrence not specified, unspecified location Administer 2 sprays into each nostril in the morning. Shake gently. Before first use, prime pump. After use, clean tip and replace cap.. 16 g 2 02/04/2023 02/04/2024 Active Start: 01-14-2022 End: 02-07-2023 take 1 spray(s) [...] mg hydrOXYzine hydrochloride 25 mg oral tablet (14 sources) Antihistamine Start: 07-03-2022 take 1 tablet by mouth every six hours hydrOXYzine HCl (Atarax) 25 MG tablet Indications: Generalized anxiety disorder (CMS/HCC) Take 1 tablet (25 mg) by mouth every 6 (six) hours if needed for itching. 30 tablet 3 07/03/2022 Active Start: 04-24-2021 take 1 tablet by tatiana th three times daily as needed hydrOXYzine (ATARAX) [...] Iron (2 sources) Iron Active lactobacillus acidophilus [id number] unt / pectin 100 mg oral tablet (6 sources) acidophilus-pect in, citrus 25 million cell -100 mg tablet Take by mouth 3 (three) times a day with meals. 0 Active metFORMIN hydrochloride 500 mg oral tablet (1 source) Biguanide Start: 03-12-19 take 1 tablet by mouth twice daily metFORMIN (GLUCOPHAGE) 500 MG tablet Take 500 mg by mouth 2 times daily 0 03/12/2021 Active MULTIVITAMIN ORAL (6 sources) MULTIVITAMIN ORA L Take 1 tablet by mouth. 0 Active Multivitamin preparation (3 sources) Multi Vitamin Ac tive nitrofurantoin, macrocrystals 25 mg / nitrofurantoin, monohydrate 75 mg oral capsule (1 source) Nitrofuran Antibacterial Start: 02-09-20 take 1 capsule by mouth every twelve hours Macrobid 100 MG 1 capsule with food Orally every 12 hrs for 7 day(s) Jan, Active ondansetron 4 mg oral tablet (9 sources) Serotonin-3 Receptor Antagonist Start: 10-01-19 take 1 tablet by mouth every eight hours as needed ondansetron (Zofran) 4 MG tablet Take 1 tablet by mouth every 8 (eight) hours if needed. 0 09/30/2022 Active Start: 01-26-2022 take 1 tablet by tatiana th every eight hours as needed for nausea ondansetron ODT (ZOFRAN ODT) 4 mg disintegrating tablet Dissolve 1 tablet (4 mg total) on tongue every 8 (eight) hours as needed for nausea for up to 10 doses. 10 tablet 0 01/26/2022 Active Start: 05-16-2021 ondansetron (Z OFRAN) injection 4 mg pantoprazole 40 mg delayed release oral tablet (8 sources) Proton Pump Inhibitor Start: 07-03-2022 End: 07-03-2023 take 1 tablet by mouth before mealtime pantoprazole (ProtoNix) 40 MG EC tablet Indications: Gastroesophageal reflux disease, unspecified whether esophagitis present Take 1 tablet (40 mg) by mouth in the morning. Take before meals. 90 tablet 3 07/03/2022 07/03/2023 Active predniSONE 20 mg oral tablet (1 source) Start: 10-12-2022 take 1 tablet by mouth every twelve hours predniSONE 20 MG 1 tablet Orally bid for 5 day(s) Oct, Active promethazine hydrochloride 25 mg oral tablet (4 sources) Phenothiazine Start: 05-16-2021 End: 05-24-2021 take 1 tablet by mouth four times [...] completed) pyridoxine hydrochloride 25 mg oral tablet (8 sources) Start: 01-03-2023 take 1 tablet by mouth three times daily as needed pyridoxine (Vitamin B-6) 25 MG tablet Take 25 mg by mouth 3 (three) times a day as needed. 0 01/03/2023 Active 72 hr scopolamine 0.0139 [...] infusion vitamin b12 0.5 mg oral tablet (6 sources) Vitamin B12 take 1 tablet by mouth in the morning cyanocobalamin 500 MCG tablet Take 1 tablet (500 mcg total) by mouth in the morning. 0 Active Zinc (6 sources) take 1 tablet by mouth in [...] extended release oral tablet (2 sources) Uncompetitive Y-gtirip-B-asparta te Receptor Antagonist, Sigma-1 Agonist Start: 01-14-2022 [...] 05-16-2021 famotidine (PE PCID) tablet 20 mg 1 ml ketorolac tromethamine 30 mg/ml cartridge [...] Date Documented Da te Episodic/Chronic Anxiety disorders (14 sources) Anxiety; Translations: [Anxiety disorder, unspecified] Onset: 1 06-28-2020 Chronic Chronic obstructive pulmonary disease and bronchiectasis (1 source) Bronchitis, not specified as acute or chronic Episodic Esophageal disorders (6 sources) Gastroesophageal reflux disease without esophagitis; Translations: [Gastro-esophageal reflux disease without esophagitis] Onset: 1 06-28-2020 Chronic Essential hypertension (1 source) Hypertensive disorder Onset: 4 Chronic Genitourinary symptoms and ill-defined conditions (4 sources) Dysuria; Translations: [Dysuria] Onset: 2 Episodic Hypertension complicating ; childbirth and the puerperium (4 sources) Hypertension complicating ; Translations: [Unspecified maternal hypertension, second trimester] Onset: 3 02-07-2023 Chronic Immunizations and screening for infectious disease (4 sources) Contact with and (suspected) exposure to other viral communicable diseases; Translations: [Contact with and (suspected) exposure to unspecified communicable disease] Onset: 1 Resolved: 1 Episodic Other complications of (1 source) Obesity complicating , unspecified trimester; Translations: [Obesity complicating , unspecified trimester] Onset: 4 Chronic Other complications of (1 source) Bariatric surgery status complicating , unspecified trimester; Translations: [Bariatric surgery status complicating , unspecified trimester] Onset: 4 Episodic Other complications of (1 source) Supervision of other high risk pregnancies, unspecified trimester; Translations: [Supervision of other high risk pregnancies, unspecified trimester] Onset: 4 Episodic Other endocrine disorders (3 sources) Polycystic [...] Chronic Other nutritional; endocrine; and metabolic disorders (5 sources) Obesity; Translations: [Obesity, unspecified] Onset: 2 07-03-2022 Chronic Other and delivery including normal (8 sources) Dichorionic diamniotic twin ; Translations: [Twin , dichorionic/diamniotic , second trimester] Onset: 3 02-07-2023 Episodic Other screening for suspected conditions (not mental disorders or infectious disease) (8 sources) Serum testosterone level abnormal; Translations: [Other specified abnormal findings of blood chemistry] Onset: 3 03-19-2023 Episodic Other upper respiratory infections (2 sources) Acute upper respiratory infection, unspecified; Translations: [Acute sinusitis, unspecified] Onset: 1 Resolved: 1 Episodic Phlebitis; thrombophlebitis and thromboembolism (8 sources) Phlebitis and thrombophlebitis of superficial vessels of right lower extremity; Translations: [Phlebitis and thrombophlebitis of superficial vessels of left lower extremity] Onset: 2 Episodic Residual codes; unclassified (7 sources) Obstructive sleep apnea syndrome; Translations: [Obstructive sleep apnea (adult) (pediatric)] Onset: 1 Chronic Residual codes; unclassified (1 source) Acquired absence of other specified parts of digestive tract; Translations: [Acquired absence of other specified parts of digestive tract] Onset: 3 Episodic Residual codes; unclassified (2 sources) Gestation period, 16 weeks; Translations: [16 weeks gestation of ] 02-07-2023 Episodic Residual codes; unclassified (1 source) 16 weeks gestation of ; Translations: [16 weeks gestation of ] Onset: 3 Episodic Substance-related disorders (6 sources) Smoker; Translations: [Nicotine dependence, unspecified, uncomplicated] Onset: 1 06-28-2020 Chronic Unclassified (1 source) Dichorionic Diamniotic Twin Onset: 4 Varicose veins of lower extremity (4 sources) Varicose veins of bilateral lower extremities with pain; Translations: [VARICOSE VNS JOVANA LOW EXTREM W/PAIN] Onset: 2 Episodic Past or Other Problems Problem Classification Problem Date Documented Da te Episodic/Chronic Biliary tract disease (3 sources) Calculus of gallbladder without cholecystitis without obstruction; Translations: [Biliary calculus] Onset: 07-03-2022 07-03-2022 Episodic Blindness and vision defects (8 sources) Astigmatism; Translations: [Unspecified astigmatism, unspecified eye] Onset: 04-26-2020 04-26-2020 Episodic Diabetes mellitus without complication (6 sources) Prediabetes; Translations: [Prediabetes] Onset: 06-28-2020 06-28-2020 Episodic Mood disorders (6 sources) Mood disorders Onset: 08-17-2018 08-17-2018 Nutritional deficiencies (12 sources) Serum iron low; Translations: [Iron deficiency] Onset: 09-01-2020 09-01-2020 Episodic Other gastrointestinal disorders (12 sources) History of sleeve gastrectomy; Translations: [Bariatric surgery status] Onset: 05-16-2021 Episodic Other infections; including parasitic (4 sources) Personal history of other infectious and parasitic diseases; Translations: [History of COVID-19] Onset: 11-03-2020 11-03-2020 Episodic Other skin disorders (2 sources) Excess skin of abdominal wall; Translations: [Excessive and redundant skin and subcutaneous tissue] Onset: 06-05-2022 07-03-2022 Episodic Residual codes; unclassified (13 sources) H/O: hypertension; Translations: [Personal history of other complications of , childbirth and the puerperium] Onset: 06-28-2020 06-28-2020 Episodic Residual codes; unclassified (2 sources) Acquired absence of stomach [part of]; Translations: [Acquired absence of stomach (part of)] Onset: 07-25-2021 Episodic Residual codes; unclassified (1 source) Personal history of other complications of , childbirth and the puerperium; Translations: [Personal history of other complications of , childbirth and the puerperium] Onset: 07-25-2021 Episodic Screening and history of mental health and substance abuse codes (4 sources) History of clinical finding in subject; Translations: [Personal history of nicotine dependence] Onset: 01-02-2021 01-02-2021 Episodic Unclassified (1 source) Cough R05.9 Unclassified (6 sources) Onset: 09-19-2021 09-19-2021 Results Test Name Value Interpretation Reference Range Facility Urinalysis macro (dipstick) panel (U)on 03-19-2023 Bilirubin, UA Negative Negative - 4(70) +++ mg/dL [facility] Blood, UA Negative Negative - 50 Krzysztof/mcL [facility] Clarity, UA Clear [facility] re Color, UA Yellow [facility] Healthcar e Glucose, UA Negative Negative - 1999(110) ++++ mg/dL [facility] Interpretation and review of laboratory results Abnormal [facility] re Ketones, UA Negative Negative - 160(16) ++++ mg/dL [facility] Leukocytes, UA Negative Negative - 500+++ Mckayla/mcL [facility] Nitrite, UA Negative Negative - Positive [facility] pH, UA 6.0 5 - 9 [facility] e Protein, UA Positive Negative - 1999(20) ++++ mg/dL [facility] Spec Grav, UA 1.030 1 - 1.03 [facility] Urobilinogen, UA 0.2 0.2 - 12 mg/dL [facility] Health[facility] e CBC without diffon External Hematocrit Hct 33.7 [facility] Comment on above: See attached External Hemoglobin 10.9 [facility] Comment on above: See attached External MCH 29.0 [facility] Comment on above: See attached External Mchc 32.3 [facility] Comment on above: See attached External Mcv 89.6 [facility] Comment on above: See attached External Mpv 9.7 [facility] Comment on above: See attached External Platelet Count 268 [facility] Comment on above: See attached External Rbc Count 3.76 [facility] Comment on above: See attached External Rdw 13.4 [facility] Comment on above: See attached External Wbc Count 9.5 [facility] Comment on above: See attached [facility] Urine protein creatinine rat ioon 02-27-2023 Protein/Creatinine (U) [Mass ratio] 0.10 mg/g [facility] Comment on above: see attached [facility] Ultrasound - Officeon 2022 Radiology Study observation (narrative) [facility] HIV 1&2 AB/AG Screen (P24 AG )on 12-20-2022 HIV 1&2 AB/AG Non-Reactive [facility] Hepatitis B surface antigeno n 12-20-2022 Hepatitis B Surface Antigen Negative [facility] No Panel Informationon 12-20 [facility] Rubella IGG immune statuson 12-20-2022 Rubella immune IgG 1.96 [facility] Syphilis Total(Unknown Syphi lis Status)on 12-20-2022 Syphilis Non-Reactive [facility] Ultrasound - Officeon 2022 SEE SCANNED REPORt MANUAL LY TRANSCRIBED RESULTS [facility] COVID + FLU Quick Testingon 10-12-2022 SARS-CoV-2 (COVID-19) RNA BECCA+probe Ql (Unsp spec) negtaive [email or web address] Other COVID + FLU Quick Testing Negative [email or web address] Other Basic Metabolic Profon 09-11 Anion gap [Moles/Vol] 9 mmol/L Normal 9-17 [facility] Comment on above: Performed By: #### B MP, CBC, PT #### [facility] [address] [place] [address] Extension Associate: Anthony Aguilar MD Calcium [Mass/Vol] 8.8 mg/dL Normal 8.6-10.4 [facility] Comment on above: Performed By: #### B MP, CBC, PT #### [facility] [address] [place] [address] Extension Associate: Anthony Aguilar MD Chloride [Moles/Vol] 106 mmol/L Normal 98-107 [facility] Comment on above: Performed By: #### B FIFI, CBC, PT #### [facility] [employer] [address] [place] [address] Extension Associate: Anthony Aguilar MD CO2 [Moles/Vol] 23 mmol/L Normal 20-31 [facility] Comment on above: Performed By: #### B FIFI, CBC, PT #### [facility] [employer] [address] [place] [address] Extension Associate: Anthony Aguilar MD Creatinine [Mass/Vol] 0.7 mg/dL Normal 0.5-0.9 [facility] Comment on above: Performed By: #### B FIFI, CBC, PT #### [address] [address] Extension Associate: Anthony Aguilar MD GFR/1.73 sq M.predicted among non-blacks MDRD (S/P/Bld) [Vol rate/Area] mL/min/{1.73_m2} Normal >60 [facility] Comment on above: Result Comment: These results [...] By: #### B MP, CBC, PT #### [facility] [employer] [address] [place] [address] Extension Associate: Anthony Aguilar MD Glucose [Mass/Vol] 79 mg/dL Normal 70-99 [facility] Comment on above: Performed By: #### B MP, CBC, PT #### [facility] [address] [place] [address] Extension Associate: Anthony Aguilar MD Potassium [Moles/Vol] 4.1 mmol/L Normal 3.7-5.3 [facility] Comment on above: Performed By: #### B MP, CBC, PT #### [facility] [employer] [address] [place] [address] Extension Associate: Anthony Aguilar MD Sodium [Moles/Vol] 138 mmol/L Normal 135-144 [facility] Comment on above: Performed By: #### B MP, CBC, PT #### [facility] [address] [place] [address] Extension Associate: Anthony Aguilar MD Urea nitrogen [Mass/Vol] 11 mg/dL Normal 6-20 [facility] Comment on above: Performed By: #### B MP, CBC, PT #### [facility] [address] [place] [address] Extension Associate: Anthony Aguilar MD CBCon 09-11-2022 Erythrocyte distribution width (RBC) [Ratio] 13.2 % Normal 11.8-14.4 [facility] Comment on above: Performed By: #### B MP, CBC, PT #### [facility] [address] [place] [phone] Extension Associate: Anthony Aguilar MD Hematocrit (Bld) [Volume fraction] 41.6 % Normal 36.3-47.1 [facility] Comment on above: Performed By: #### B MP, CBC, PT #### [address] [address] Extension Associate: Anthony Aguilar MD Hemoglobin (Bld) [Mass/Vol] 13.3 g/dL Normal 11.9-15.1 [facility] Comment on above: Performed By: #### B MP, CBC, PT #### [address] [address] Extension Associate: Anthony Aguilar MD MCH (RBC) [Entitic mass] 28.3 pg Normal 25.2-33.5 [facility] Comment on above: Performed By: #### B MP, CBC, PT #### [address] [address] Extension Associate: Anthony Aguilar MD MCHC (RBC) [Mass/Vol] 32.0 g/dL Normal 28.4-34.8 [facility] Comment on above: Performed By: #### B MP, CBC, PT #### [address] [address] Extension Associate: Anthony Aguilar MD MCV (RBC) [Entitic vol] 88.5 fL Normal 82.6-102.9 [facility] Comment on above: Performed By: #### B MP, CBC, PT #### [address] [address] Extension Associate: Anthony Aguilar MD NRBC Automated 0.0 per 100 WBC Normal 0.0 [facility] Comment on above: Performed By: #### B MP, CBC, PT #### [facility] [employer] [address] [place] [address] Extension Associate: Anthony Aguilar MD Platelet mean volume (Bld) [Entitic vol] 9.7 fL Normal 8.1-13.5 [facility] Comment on above: Performed By: #### B MP, CBC, PT #### [facility] [address] [place] [address] Extension Associate: Anthony Aguilar MD Platelets (Bld) [#/Vol] 276 10*3/uL Normal 138-453 [facility] Comment on above: Performed By: #### B MP, CBC, PT #### [facility] [address] [place] [address] Extension Associate: Anthony Aguilar MD RBC (Bld) [#/Vol] 4.70 10*6/uL Normal 3.95-5.11 [facility] Comment on above: Performed By: #### B MP, CBC, PT #### [facility] [employer] [address] [place] [address] Extension Associate: Anthony Aguilar MD WBC (Bld) [#/Vol] 7.4 10*3/uL Normal 3.5-11.3 [facility] Comment on above: Performed By: #### B MP, CBC, PT #### [address] [address] Extension Associate: Anthony Aguilar MD PTon 09-11-2022 INR Coag (PPP) [Relative time] 1.0 {INR} Normal [facility] Comment on above: Result Comment: Therapeutic Range: Moderate Anticoagulant Intensity: INR = 2.0-3.0 High Anticoagulant Intensity: INR = 2.5-3.5 Performed By: #### B MP, CBC, PT #### [facility] [employer] [address] [place] [address] Extension Associate: Anthony Aguilar MD PT Coag (PPP) [Time] 12.9 s Normal 11.7-14.9 [facility] Comment on above: Performed By: #### B MP, CBC, PT #### [facility] [employer] [address] [place] [address] Extension Associate: Anthony Aguilar MD Surgical Pathologyon 023 Surgical Pathology (NOTE) Path Number: [id number] -- Diagnosis -- GALLBLADDER, CHOLECYSTECTOMY: -CHRONIC CHOLECYSTITIS [...] lesions or periductal lymph nodes are identified. Poultry Barn Manager sections 1c. tm Microscopic Description Microscopic examination performed. Processing Lab: [address] [address] Interpretation Performed at [address] [address] SURGICAL PATHOLOGY CONSULTATION Patient Name: [facility] Rec: [id number] [facility] [employer] [facility] ANATOMIC PATHOLOGY [address] [place] [address]. [place] [address] Normal [facility] Urine Cultureon 02-08-2022 Bacteria identified Cx Nom (U) Reason for Exam Dysuria Urine ORGANISM: Escherichia coli (O:ESCCOL) [place] Count >100,000 Aerobic LISA Charge (NMIC56) ---- [...] RESISTANT TO ALL B-LACTAM DRUGS. PERFORMED BY: [place] [address] [facility] DRUG ABUSE RESISTANCE EDUCATION OFFICER SAMIRA WEN M.D. [facility] Comment on above: Performed By: #### C UU #### [address] VC CONSULT FOLLOWUPon 2021 VC CONSULT FOLLOWUP Patient: FINA WALKER Exam Date: 01/08/2022 : 1995 Gender:F Ordering : DR JAMEEL ABEBE M.D. Admission #: [id number] Family : Order #: [id number] CLICK HERE TO VIEW EXAM RADIOLOGY REPORT [...] Courtney Hinton M.D. on 01/08/2022 at 10:10 [facility] VC EXT VENOUS RT LIMITEDon 1 03-10-2021 VC EXT VENOUS RT LIMITED Patient: FINA WALKER Exam Date: 01/08/2022 : 1995 Gender:F Ordering : DR JAMEEL ABEBE M.D. Admission #: [id number] Family : Order #: [id number] CLICK HERE TO VIEW EXAM RADIOLOGY REPORT [...] Hinton M.D. on 01/08/2022 at 10:05 Normal [facility] VC ENDOVENOUS ABL 1ST V RTon 12-31-2021 VC ENDOVENOUS ABL 1ST V RT Patient: FINA WALKER Exam Date: 12/31/2021 : 1995 Gender:F Ordering : DR JAMEEL ABEBE M.D. Admission #: [id number] Family : Order #: [id number] CLICK HERE TO VIEW EXAM RADIOLOGY REPORT PROCEDURE: VEIN CENTER ENDOVENOUS ABLATION FIRST VEIN RIGHT GREAT SAPHENOUS VEIN COMPARISON: None. INDICATIONS: Pain co-occurrent and due to varicose veins of bilateral legs I83.813 OPERATIVE REPORT: The risks and benefits of the procedure had been previously discussed, and were rediscussed at length. Informed written consent was obtained by me and Christopher villar. Time out procedure was [...] right great saphenous vein. Dictated by: Jameel Abebe MD on 12/31/2021 at 11:05 Approved by: Jameel Abebe MD on 12/31/2021 at 11:06 Normal [facility] ED Clinical Summaryon 2021 ED Clinical Summary [facility] ? Urgent Care [address] [place], [place] [id number] Clinical Summary PERSON INFORMATION Name: VERNON WALKER Age: 26 Years Sex: FEMALE : 1995 MRN: Acct#: Visit Reason: OTTERBEIN PHYSICAL Arrival: 11/28/2021 10:39:56 Discharge: 11/28/2021 10:59:00 LOS: 000 00:20 Check In: 11/28/2021 10:39:56 Checkout: 11/28/2021 10:59:00 Address: [address] [place] [id number] PCP: Provider, None PROVIDER INFORMATION VITALS INFORMATION Vital Sign Triage Latest Temperature Tympanic Temperature Temporal Artery Pulse Rate O2 Sat Respiratory Rate Blood Pressure / / MEDICAL INFORMATION Medications Given: Allergy Information: No known allergies PHYSICIAN DOCUMENTATION DISCHARGE INFORMATION: Discharge Disposition: Eloped Discharge Location: PATIENT EDUCATION INFORMATION Instructions: Follow-Up: DIAGNOSIS: Patient Understands: Comment: Normal [facility] ED Patient Summaryon 022 ED Patient Summary [facility] ? Urgent Care [address] [id number] PATIENT DISCHARGE INSTRUCTIONS Patient Information Name: VERNON WALKER Age: 26 Years Date of : 1995 Reason For Visit: OTTERBEIN PHYSICAL Arrival Time: 11/28/2021 10:39:56 Primary Care Physician: Provider, None Attending Physician: Nuno Bradshaw Comment: Patient Education Medication Information: The exam and treatment you received today in the [facility] Emergency Department were for an urgent problem and are not intended as complete care. It is important for you to follow up with a doctor, nurse practitioner, or physician?s ex assistant/program director for ongoing care. If your symptoms [...] can reach you if necessary. [facility] Emergency Department has provided you with a complete list of medications post discharge. Please inform your channel lip stiffener insoles/provider of your visit and for further instruction [...] Disease Control and Prevention October 2013 [facility] VC CONSULT FOLLOWUPon 2021 VC CONSULT FOLLOWUP Patient: FINA WALKER Exam Date: 11/28/2021 : 1995 Gender:F Ordering : DR JAMEEL ABEBE M.D. Admission #: [id number] Family : Order #: [id number] CLICK HERE TO VIEW EXAM RADIOLOGY REPORT [...] Hinton M.D. on 11/28/2021 at 10:04 Normal [facility] VC EXT VENOUS LT LIMITEDon 1 VC EXT VENOUS LT LIMITED Patient: FINA WALKER Exam Date: 11/28/2021 : 1995 Gender:F Ordering : DR JAMEEL ABEBE M.D. Admission #: [id number] Family : Order #: [id number] CLICK HERE TO VIEW EXAM RADIOLOGY REPORT [...] Hinton M.D. on 11/28/2021 at 09:45 Normal [facility] VC ENDOVENOUS ABL 1ST V LTon 11-22-2021 VC ENDOVENOUS ABL 1ST V LT Patient: FINA WALKER Exam Date: 11/22/2021 : 1995 Gender:F Ordering : DR JAMEEL ABEBE M.D. Admission #: [id number] Family : Order #: [id number] CLICK HERE TO VIEW EXAM RADIOLOGY REPORT [...] left great saphenous vein. Dictated by: Jameel Abebe MD on 11/22/2021 at 09:00 Approved by: Jameel Abebe MD on 11/22/2021 at 09:04 Normal [facility] VC COMP CONSULTATIONon 10-17 VC COMP CONSULTATION Patient: FINA WALKER Exam Date: 10/17/2021 : 1995 Gender:F Ordering : DR JAMEEL ABEBE M.D. Admission #: [id number] Family : Order #: [id number] CLICK HERE TO VIEW EXAM RADIOLOGY REPORT [...] arterial disease 5. CEAP: C2, EC, AP, DE PLAN: 1. Continued use of compression stockings [...] M.D. on 10/17/2021 at 12:46 Normal [facility] Basic Metabolic Panelon 04-0 Anion gap [Moles/Vol] 8 mmol/L Low 9 - 17 mmol/L [employer] Calcium [Mass/Vol] 8.6 mg/dL 8.6 - 10. 4 mg/dL [employer] Chloride [Moles/Vol] 106 mmol/L 98 - 107 mmol/L [employer] CO2 [Moles/Vol] 23 mmol/L 20 - 31 mmol/L [employer] Creatinine [Mass/Vol] 0.67 mg/dL 0.50 - 0.90 mg/dL [employer] GFR >60 >60 mL/min [employer] GFR Non- >60 >60 mL/min [employer] GFR/1.73 sq M.predicted MDRD (S/P/Bld) [Vol rate/Area] [facility] Comment on above: Average GFR for 20-2 9 years old: 116 mL/min/1.73sq m Chronic Kidney Disease: <60 mL/min/1.73sq m Kidney failure: <15 mL/min/1.73sq m eGFR calculated using average adult body mass. Additional eGFR calculator available at: http://www.Unowhy/multiple_crcl_2012.htm Glucose [Mass/Vol] 83 mg/dL 70 - 99 mg/dL [facility] Interpretation and review of laboratory results Abnormal [facility] Potassium [Moles/Vol] 3.9 mmol/L 3.7 - 5.3 mmol/L [facility] Sodium [Moles/Vol] 137 mmol/L 135 - 144 mmol/L [facility] Urea nitrogen (BldV) [Mass/Vol] 7 mg/dL 6 - 20 mg/dL [facility] CBCon 05-17-2021 Hematocrit (Bld) [Volume fraction] 34.4 % Low 36.3 - 47.1 % [facility] Hemoglobin.gastroin testinal spec 1 Ql (Stl) 11.0 g/dL Low 11.9 - 15.1 g/dL [facility] Interpretation and review of laboratory results Abnormal [facility] MCH (RBC) [Entitic mass] 27.2 pg 25.2 - 33.5 pg [facility] MCHC (RBC) [Mass/Vol] 32.0 g/dL 28.4 - 34.8 g/dL [facility] MCV (RBC) [Entitic vol] 85.1 fL 82.6 - 102.9 fL [facility] NRBC Automated 0.0 0.0 per 100 WBC [facility] Platelet distribution width (Bld) [Ratio] 14.1 % 11.8 - 14.4 % [facility] Platelet mean volume (Bld) [Entitic vol] 10.1 fL 8.1 - 13.5 fL [facility] Platelets (Bld) [#/Vol] 302 10*3/uL [facility] RBC (Bld) [#/Vol] 4.04 10*6/uL 3.95 - 5.1 1 m/uL [facility] WBC (Bld) [#/Vol] 13.7 10*3/uL High [facility] SURGICAL PATHOLOGY REPORTon 05-17-2021 Surgical Pathology Report [...] Specimen A: GASTRIC REMNANT Gross Description FINA WALKER GASTRIC REMNANT 17.0 x 4.5 x 2.5 [...] x 0.5 cm piece of adipose tissue. 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 tm Microscopic Description 1 H&E reviewed. Microscopic examination performed. SURGICAL PATHOLOGY CONSULTATION Patient Name: FINA WALKER [facility] Rec: [id number] Path Number: [id number] [facility] ANATOMIC PATHOLOGY [address] [place] [address]. [place], [place] [address] [employer] Basic Metabolic Panelon Anion gap [Moles/Vol] 10 mmol/L 9 - 17 mmol/L [employer] Calcium [Mass/Vol] 8.7 mg/dL 8.6 - 10. 4 mg/dL [employer] Chloride [Moles/Vol] 105 mmol/L 98 - 107 mmol/L [employer] CO2 [Moles/Vol] 23 mmol/L 20 - 31 mmol/L [employer] Creatinine [Mass/Vol] 0.75 mg/dL 0.50 - 0.90 mg/dL [employer] GFR >60 >60 mL/min [employer] GFR Non- >60 >60 mL/min [employer] GFR/1.73 sq M.predicted MDRD (S/P/Bld) [Vol rate/Area] [employer] Comment on above: Average GFR for 20-2 9 years old: 116 mL/min/1.73sq m Chronic Kidney Disease: <60 mL/min/1.73sq m Kidney failure: <15 mL/min/1.73sq m eGFR calculated using average adult body mass. Additional eGFR calculator available at: http://www.Unowhy/multiple_crcl_2011.htm Glucose [Mass/Vol] 132 mg/dL High 70 - 99 mg/dL [facility] Interpretation and review of laboratory results Abnormal [facility] Potassium [Moles/Vol] 3.5 mmol/L Low 3.7 - 5.3 mmol/L [facility] Sodium [Moles/Vol] 138 mmol/L 135 - 144 mmol/L [facility] Urea nitrogen (BldV) [Mass/Vol] 10 mg/dL 6 - 20 mg/dL [facility] CBC without Diffon Hematocrit (Bld) [Volume fraction] 38.8 % 36.3 - 47.1 % [facility] Hemoglobin.gastroin testinal spec 1 Ql (Stl) 12.6 g/dL 11.9 - 15.1 g/dL [facility] Interpretation and review of laboratory results Abnormal [facility] MCH (RBC) [Entitic mass] 27.2 pg 25.2 - 33.5 pg [facility] MCHC (RBC) [Mass/Vol] 32.5 g/dL 28.4 - 34.8 g/dL [facility] MCV (RBC) [Entitic vol] 83.8 fL 82.6 - 102.9 fL [facility] NRBC Automated 0.0 0.0 per 100 WBC [facility] Platelet distribution width (Bld) [Ratio] 13.9 % 11.8 - 14.4 % [facility] Platelet mean volume (Bld) [Entitic vol] 9.8 fL 8.1 - 13.5 fL [facility] Platelets (Bld) [#/Vol] 340 10*3/uL [facility] RBC (Bld) [#/Vol] 4.63 10*6/uL 3.95 - 5.1 1 m/uL [facility] WBC (Bld) [#/Vol] 15.0 10*3/uL High [facility] POC Glucose Fingerstickon Glucose [Mass/Vol] 77 mg/dL 65 - 105 mg/dL [facility] [place][note 2] POCT urine pregnancyon 05-16 Beta HCG ( test) Ql (U) Negative NEGATIVE [facility] Comment on above: Specimens with hCG l evels near the threshold of the test (25 mIU/mL) may give a negative or indeterminate result. In such cases, another test should be performed with a new specimen in 48-72 hours. If early is suspected clinically in this setting, correlation with quantitative serum b-hCG level is suggested. [facility] [id number] 05-15-2021 SARS-CoV-2 (COVID-19) RNA BECCA+probe Ql (Unsp spec) Normal [facility] Comment on above: Performed By: #### C OVID #### [facility] [employer] [address] [place] [address] Extension Associate: Anthony Aguilar MD [facility] [address] [place] [address] Extension Associate: Jameel Lawler MD SARS-CoV-2 (COVID-19) RNA BECCA+probe Ql (Unsp spec) Not detected Normal NOTDET [facility] Comment on above: Result Comment: The specimen is NEGATIVE for SARS-CoV-2, the novel coronavirus associated with COVID-19. A negative result does not rule out COVID-19. [employer] SARS-CoV-2 for use on the [employer] is a real-time RT-PCR test intended [...] this assay. Fact sheet for Healthcare Providers: https://www.fda.gov/media/831709/download Fact sheet for Patients: https://www.fda.gov/media/048728/download METHODOLOGY: RT-PCR Performed By: #### C OVID #### [facility] [address] [place] [address] Extension Associate: Anthony Aguilar MD [facility] [address] [place] [address] Extension Associate: Jameel Lawler MD [id number] 05-14-2021 SARS-CoV-2 (COVID-19) RNA BECCA+probe Ql (Unsp spec) .NASOPHARYNGEAL SWAB Normal [facility] Comment on above: Performed By: #### C OVID #### [facility] [address] [place], [place] [id number] Extension Associate: Anthony Aguilar MD [facility] [address] [place] [address] Extension Associate: Jameel Lawler MD Nicotine, Bloodon 05-05-2021 [id number] <2 ng/mL [facility] h Cotinine <2 ng/mL [facility] Nicotine <2 ng/mL [facility] Comment on above: (NOTE) Consistent with abstinence [...] developed and its performance characteristics determined by [employer]. It has not been cleared or approved by the US Food and Drug Administration. This test was performed in a CLIA certified laboratory and is intended for clinical purposes. Performed By: [employer] [address] [place] [id number] Experimental Psychologist: Yara Rodriguez MD [employer] EKG 12 LeadOrdered By: Diaz Conway on 05-03-2021 Atrial Rate 72 BPM [employer] Work Phone: P [place] 45 degrees [employer] Work Phone: P-R Interval 142 ms [employer] Work Phone: Q-T Interval 376 ms [employer] Work Phone: QRS Duration 100 ms [employer] Work Phone: QTc Calculation (Bazett) 411 ms [employer] Work Phone: R [place] 22 degrees [employer] Work Phone: T [place] 32 degrees [employer] Work Phone: Ventricular Rate 72 BPM [employer] Work Phone: [employer] Work Phone: EKG 12 Leadon 05-03-2021 Normal sinus rhythm Normal ECG No previous ECGs available [facility] Diaz Romero MD - 05/03/2021 Normal sinus rhythm Normal ECG No previous ECGs available [employer] Work Phone: APTTon 05-02-2021 aPTT Coag (Bld) [Time] 25.0 s [employer] Comment on above: IV Heparin Therapy Range: 48.6-77.8 Basic Metabolic Panelon - Anion gap [Moles/Vol] 15 mmol/L 9 - 17 mmol/L [employer] Calcium [Mass/Vol] 9.8 mg/dL 8.6 - 10. 4 mg/dL [employer] Chloride [Moles/Vol] 102 mmol/L 98 - 107 mmol/L [employer] CO2 [Moles/Vol] 21 mmol/L 20 - 31 mmol/L [employer] Creatinine [Mass/Vol] 0.55 mg/dL 0.50 - 0.90 mg/dL [employer] GFR >60 >60 mL/min [employer] GFR Non- >60 >60 mL/min [employer] GFR/1.73 sq M.predicted MDRD (S/P/Bld) [Vol rate/Area] [facility] Comment on above: Average GFR for 20-2 9 years old: 116 mL/min/1.73sq m Chronic Kidney Disease: <60 mL/min/1.73sq m Kidney failure: <15 mL/min/1.73sq m eGFR calculated using average adult body mass. Additional eGFR calculator available at: http://www.Unowhy/multiple_crcl_2012.htm Glucose [Mass/Vol] 85 mg/dL 70 - 99 mg/dL [facility] Potassium [Moles/Vol] 4.5 mmol/L 3.7 - 5.3 mmol/L [facility] Sodium [Moles/Vol] 138 mmol/L 135 - 144 mmol/L [facility] Urea nitrogen (BldV) [Mass/Vol] 11 mg/dL 6 - 20 mg/dL [facility] CBCon 05-02-2021 Hematocrit (Bld) [Volume fraction] 41.0 % 36.3 - 47.1 % [facility] Hemoglobin.gastroin testinal spec 1 Ql (Stl) 12.9 g/dL 11.9 - 15.1 g/dL [facility] MCH (RBC) [Entitic mass] 26.9 pg 25.2 - 33.5 pg [facility] MCHC (RBC) [Mass/Vol] 31.5 g/dL 28.4 - 34.8 g/dL [facility] MCV (RBC) [Entitic vol] 85.6 fL 82.6 - 102.9 fL [facility] NRBC Automated 0.0 0.0 per 100 WBC [facility] Platelet distribution width (Bld) [Ratio] 13.7 % 11.8 - 14.4 % [facility] Platelet mean volume (Bld) [Entitic vol] 9.8 fL 8.1 - 13.5 fL [facility] Platelets (Bld) [#/Vol] 380 10*3/uL [facility] RBC (Bld) [#/Vol] 4.79 10*6/uL 3.95 - 5.1 1 m/uL [facility] WBC (Bld) [#/Vol] 11.2 10*3/uL [facility] No Panel Informationon 05-02 [facility] Protime-INRon 05-02-2021 INR Coag (Bld) [Relative time] 1.0 {INR} [facility] [employer] Comment on above: Therapeutic Range: Moderate Anticoagulant Intensity: INR = 2.0-3.0 High Anticoagulant Intensity: INR = 2.5-3.5 PT Coag (PPP) [Time] 10.6 s [employer] XR CHEST (2 VW)on 05-02-2021 No acute process. [facility] EXAMINATION: TWO XRAY VIEWS OF THE CHEST 05/02/2021 11:20 am COMPARISON: None. HISTORY: ORDERING SYSTEM PROVIDED HISTORY: preop, obesity TECHNOLOGIST PROVIDED HISTORY: preop, obesity FINDINGS: Heart is normal in size. Lungs are clear. No free air. [facility] Jose Juan Florez Jr. , DO - 05/02/2021 EXAMINATION: TWO XRAY VIEWS OF THE CHEST 05/02/2021 11:20 am COMPARISON: None. HISTORY: ORDERING SYSTEM PROVIDED HISTORY: preop, obesity TECHNOLOGIST PROVIDED HISTORY: preop, obesity FINDINGS: Heart is normal in size. Lungs are clear. No free air. IMPRESSION: No acute process. [employer] Phone: Radiology Study observation (narrative) [employer] Phone: XR CHEST (2 VW)Ordered By: Santos Florez on 05-02-2021 [employer] Phone: [id number] 12-05-2020 SARS-CoV-2 (COVID-19) RNA BECCA+probe Ql (Unsp spec) Normal [facility] Comment on above: Performed By: #### C OVID #### [facility] [address] [place] [address] Extension Associate: Anthony Aguilar MD [facility] [address] [place] [address] Extension Associate: Jameel Lawler MD SARS-CoV-2 (COVID-19) RNA BECCA+probe Ql (Unsp spec) Not detected Normal NOTDET [facility] Comment on above: Result Comment: The specimen is NEGATIVE for SARS-CoV-2, the novel coronavirus associated with COVID-19. A negative result does not rule out COVID-19. [employer] SARS-CoV-2 for use on the [employer] is a real-time RT-PCR test intended [...] this assay. Fact sheet for Healthcare Providers: https://www.fda.gov/media/718371/download Fact sheet for Patients: https://www.fda.gov/media/014500/download METHODOLOGY: RT-PCR Performed By: #### C OVID #### [facility] [address] [place], [place] [id number] Extension Associate: Anthony Aguilar MD [facility] [address] [place] [address] [place] [address] Extension Associate: Jameel Lawler MD [id number] 12-04-2020 SARS-CoV-2 (COVID-19) RNA BECCA+probe Ql (Unsp spec) .NASOPHARYNGEAL SWAB Normal [facility] Comment on above: Performed By: #### C OVID #### [facility] [address] [place], [place] [id number] Extension Associate: Anthony Aguilar MD [facility] [address] [place] [address] Extension Associate: Jameel Lawler MD Vital Signs Date Time Vital Sign Value Performing Clinician Facility 03-19-2023 11:06-0500 Body mass index (BMI) [Ratio] 36.34 kg/m2 Eloise BURROUGHS Work Phone: [facility] 03-19-2023 11:06-0500 Body weight 105.23 kg Eloise BURROUGHS Work Phone: [facility] 03-19-2023 11:06-0500 Diastolic blood pressure 78 mm[Hg] Eloise BURROUGHS Work Phone: [facility] 03-19-2023 11:06-0500 Systolic blood pressure 124 mm[Hg] Eloise BURROUGHS Work Phone: [facility] 03-05-2023 10:48-0500 Body mass index (BMI) [Ratio] 35.08 kg/m2 Karoline Hopson MD Work Phone: [facility] 03-05-2023 10:48-0500 Body weight 101.61 kg Karoline Hopson MD Work Phone: [facility] 03-05-2023 10:48-0500 Diastolic blood pressure 75 mm[Hg] Karoline Hopson MD Work Phone: [facility] 03-05-2023 10:48-0500 Heart rate 89 /min Karoline Hopson MD Work Phone: [facility] 03-05-2023 10:48-0500 Systolic blood pressure 126 mm[Hg] Karoline Hopson MD Work Phone: [facility] 02-07-2023 13:34-0500 Body height 170.2 cm Tatiana Yap MD Work Phone: [facility] 02-07-2023 13:34-0500 Body mass index (BMI) [Ratio] 34.14 kg/m2 Tatiana Yap MD Work Phone: [facility] 02-07-2023 13:34-0500 Body weight 98.88 kg Tatiana Yap MD Work Phone: [facility] 02-07-2023 13:34-0500 Diastolic blood pressure 83 mm[Hg] Tatiana Yap MD Work Phone: [facility] 02-07-2023 13:34-0500 Heart rate 76 /min Tatiana Yap MD Work Phone: [employer] 02-07-2023 13:34-0500 Systolic blood pressure 126 mm[Hg] Tatiana Yap MD Work Phone: [employer] 10-12-2022 10:10-0400 Body height 170.18 cm Lilia Daugherty Other [email or web address] Other 10-12-2022 10:10-0400 Body mass index (BMI) [Ratio] 32.86 kg/m2 Lilia Daugherty Other [email or web address] Other 10-12-2022 10:10-0400 Body temperature 99 [degF] Lilia Daugherty Other [email or web address] Other 10-12-2022 10:10-0400 Body weight 95.17 kg Lilia Vacamond Other [email or web address] Other 10-12-2022 10:10-0400 Diastolic blood pressure 74 mm[Hg] Lilia Vacamond Other [email or web address] Other 10-12-2022 10:10-0400 SaO2% (BldA) [Mass fraction] 98 % iLlia Vacamond Other [email or web address] Other 10-12-2022 10:10-0400 Systolic blood pressure 118 mm[Hg] Lilia Vacamond Other [email or web address] Other 05-17-2021 15:52-0400 Body temperature 98.49 [degF] Patriciaviviana Mars DO Work Phone: [employer] 05-17-2021 15:52-0400 Diastolic blood pressure 97 mm[Hg] Patricia Mars DO Work Phone: [employer] 05-17-2021 15:52-0400 Heart rate 70 /min Patricia Mars DO Work Phone: [employer] 05-17-2021 15:52-0400 Respiratory rate 18 /min Patricia Mars DO Work Phone: [employer] 05-17-2021 15:52-0400 SaO2% (BldA) [Mass fraction] 99 % Patricia Mars DO Work Phone: [employer] 05-17-2021 15:52-0400 Systolic blood pressure 138 mm[Hg] Patricia Mars DO Work Phone: [employer] 05-16-2021 06:06-0400 Body mass index (BMI) [Ratio] 43.16 kg/m2 Patricia Mars DO Work Phone: [employer] 05-16-2021 06:06-0400 Body weight 125 kg Patricia Mars DO Work Phone: [employer] 05-16-2021 05:57-0400 Body height 170.2 cm Patricia Mars [employer] Work Phone: [employer] 05-02-2021 10:35-0400 Body height 170.2 cm Stvz 1 [employer] 05-02-2021 10:35-0400 Body mass index (BMI) [Ratio] 44.95 kg/m2 Stvz 1 [employer] 05-02-2021 10:35-0400 Body temperature 97.2 [degF] Stvz 1 [employer] 05-02-2021 10:35-0400 Body weight 130.18 kg Stvz 1 [employer] 05-02-2021 10:35-0400 Diastolic blood pressure 85 mm[Hg] Stvz 1 [employer] 05-02-2021 10:35-0400 Heart rate 66 /min Stvz 1 [employer] 05-02-2021 10:35-0400 Respiratory rate 18 /min Stvz 1 [employer] 05-02-2021 10:35-0400 SaO2% (BldA) [Mass fraction] 99 % Stvz 1 [employer] 05-02-2021 10:35-0400 Systolic blood pressure 122 mm[Hg] Stvz 1 [employer] 12-04-2020 17:00-0400 Body height 170.18 cm Ale Ginty Other [email or web address] Other 12-04-2020 17:00-0400 Body mass index (BMI) [Ratio] 43.85 kg/m2 Ale Ginty Other [email or web address] Other 12-04-2020 17:00-0400 Body temperature 97.4 [degF] Ale Ginty Other [email or web address] Other 12-04-2020 17:00-0400 Body weight 127.01 kg Ale Ginty Other [email or web address] Other 12-04-2020 17:00-0400 SaO2% (BldA) [Mass fraction] 99 % Ale Ginty Other [email or web address] Other Encounters Encounter Date Encounter Type Care Provider Facility Start: 03-19-2023 End: 03-19-2023 ambulatory ELOISE DOMINGUEZ Not Available Start: 03-19-2023 End: 03-19-2023 Office outpatient visit 15 minutes Eloise BURROUGHS Work Phone: [facility] Comment on above: Second trimester pre gnancy; Diabetes mellitus screening Start: 03-05-2023 End: 03-06-2023 Orders Only Laila Castillo RN Maternal- Medic [facility]e at [facility] Comment on above: Hypertension affecti ng in second trimester (Primary Dx); Dichorionic diamniotic twin in second trimester Start: 03-05-2023 End: 03-05-2023 Office outpatient visit 15 minutes Karoline Hopson MD Work Phone: Maternal- Medicine at [facility] Comment on above: History of sleeve ga strectomy (Primary Dx); History of induced hypertension Start: 02-27-2023 Orders Only Sivan Martinez RN Ma ternal- Medicine at [facility] Comment on above: Hypertension affecti ng in second trimester; 16 weeks gestation of ; Dichorionic diamniotic twin in second trimester Start: 02-26-2023 End: 02-26-2023 ambulatory NIGEL ZACARIAS Not Available Start: 02-24-2023 Telephone encounter Sangita Thomas RN Maternal Medicine [place] Start: 02-07-2023 End: 02-07-2023 ambulatory [facility] Start: 02-07-2023 End: 02-07-2023 Office consultation new/estab patient 60 min Tatiana Yap MD Work Phone: Maternal [facility] Comment on above: Hypertension affecti ng in second trimester (Primary Dx); 16 weeks gestation of ; Dichorionic diamniotic twin in second trimester; H/O gastric sleeve Start: 02-05-2023 End: 02-05-2023 ambulatory NIGEL ZACARIAS Not Available Start: 02-05-2023 Chart abstracting Tatiana Yap MD Work Phone: Maternal [facility] Start: 02-04-2023 End: 02-04-2023 ambulatory MARGOT G YAW Not Available Start: 01-15-2023 End: 01-15-2023 ambulatory NIGEL ZACARIAS Not Available Start: 01-07-2023 End: 01-07-2023 ambulatory MARGOT G YAW Not Available Start: 12-20-2022 End: 12-21-2022 ambulatory NIGEL ZACARIAS Not Available Start: 10-12-2022 End: 10-12-2022 ambulatory Lilia Daugherty Other [email or web address] Other Start: 10-12-2022 Office outpatient vi sit 15 minutes Lilia Daugherty [facility] [place] Start: 09-11-2022 End: 09-11-2022 ambulatory PATRICIA Rucker [facility] Start: 02-10-2022 End: 02-10-2022 ambulatory Ale Shields Other [facility] [employer] Other Start: 02-10-2022 Telephone encounter Ale Shields [facility] [address] Start: 02-08-2022 End: 02-08-2022 ambulatory Ale Kishor Shields Facility:[facility] Start: 02-08-2022 End: 02-08-2022 ambulatory LAURA Shields Work Phone: [facility] Work Phone: Start: 02-08-2022 End: 02-08-2022 Departed Referred LARUA Ale Shields Work Phone: [facility] [place] Work Phone: Start: 01-08-2022 End: 01-09-[address] JAMEEL ABEBE Facility: Start: 12-31-2021 End: 01-01-[address] JAMEEL ABEBE Facility: Start: 11-28-2021 End: 11-28-2021 ambulatory None Provider Facility:[facility] Start: 11-28-2021 End: 11-29-[address] JAMEEL ABEBE Facility: Start: 11-22-2021 End: 11-23-2021 ambulatory NONE LISTED REQUEST Facility: Start: 10-17-2021 End: 10-18-2021 ambulatory NONE LISTED REQUEST Facility: Start: 08-03-2021 End: 08-04-[address] JAMEEL ABEBE Facility: Start: 05-16-2021 End: 05-17-2021 Evaluation and management of inpatient Patricia R Mars Work Phone: [facility] Comment on above: Post-op pain (Primar y Dx) Start: 05-14-2021 End: 05-19-2021 ambulatory CYN OKEEFE [facility] Start: 05-02-2021 End: 05-06-2021 Subsequent hospital visit by physician [facility] Pat Rm 1 [facility] Pre-Admit Testing Start: 12-04-2020 End: 12-09-2020 ambulatory CYN OKEEFE [facility] Start: 12-04-2020 Office outpatient vi sit 15 minutes Ale Kimberly [facility] [place] Start: 10-20-2020 End: 10-20-2020 Subsequent hospital visit by physician Patricia Mars DO Work Phone: [facility] [place] Start: 09-06-2020 End: 09-07-2020 ambulatory IKE [facility] Start: 09-06-2020 End: 09-06-2020 Subsequent hospital visit by physician [facility] Comment on above: LYNN (obstructive sle ep apnea) Start: 05-28-2017 End: 05-29-2017 Ambulatory Neo Anderson Facility:[id number] Procedures Date Procedure Procedure Detail Performing Clinician Start: 03-19-2023 Urnls dip stick/tabl et rgnt non-auto w/o micrscp Eloise BURROUGHS Work Phone: Start: 02-12-2023 Blood count complete automated Tatiana Yap MD Work Phone: Start: 12-20-2022 Antibody screen Tatiana allison MD Work Phone: Start: 12-20-2022 HIV 1&2 AB/AG SCREEN (P24 AG) Nigel R Zacarias DO Work Phone: Start: 12-20-2022 Iaad ia hepatitis b surface antigen Nigel R Zacarias DO Work Phone: Start: 12-20-2022 Syphilis test non-treponemal antibody qual Nigel R Zacarias DO Work Phone: Start: 12-20-2022 TYPE AND SCREEN Nigel R Zacarias DO Work Phone: Start: 12-20-2022 ULTRASOUND OFFICE Nigel R Zacarias DO Work Phone: Start: 05-17-2021 Basic metabolic pane l calcium total Patricia Mars DO Work Phone: Start: 05-16-2021 SURGICAL PATHOLOGY REPORT Patricia Mars DO Work Phone: Start: 05-16-2021 Basic metabolic pane l calcium total Patricia Mars [employer] Work Phone: Start: 05-16-2021 End: 05-16-2021 Laps gstrc rstrictiv px longitudinal gastrectomy Patricia Mars [employer] Work Phone: Start: 05-16-2021 Glucose blood reagen t strip Patricia Mars [employer] Work Phone: Start: 05-16-2021 Urine test visual color cmprsn meths Patricia Mars [employer] Work Phone: Start: 05-02-2021 Assay of nicotine Sim [employer] Work Phone: Start: 05-02-2021 Basic metabolic pane l calcium total Patricia [employer] Work Phone: Start: 05-02-2021 Radiologic exam ches t 2 views Patricia Mars [employer] Work Phone: Start: 05-02-2021 Ecg routine ecg w/le ast 12 lds i&r only Patricia Mars [employer] Work Phone: Start: 06-14-2020 Microscopic observat ion [Identifier] in Cervix by Cyto stain Tatiana Yap MD Work Phone: Plan of Treatment Date Care Activity Detail Author Start: 03-05-2024 Adult BMI Screening Adult BMI Screen ing [facility] Start: 03-05-2024 Tobacco Screening Tobacco Screening [employer] Start: 03-05-2024 End: 03-05-2024 US MFM with or without consult US MFM with or without consult Imaging Routine Hypertension affecting in second trimester Dichorionic diamniotic twin in second trimester Expected: 03/05/2024 (Approximate), Expires: 03/05/2024 Marvin [facility] Work Phone: Comment on above: Expected: 03/05/2024 (Approximate), Expires: 03/05/2024 Start: 02-08-2024 Adult BMI Screening Adult BMI Screen ing [facility] [facility] Start: 02-08-2024 [facility] Start: 01-04-2024 Adult BMI Screening Adult BMI Screen ing [facility] Start: 01-04-2024 Tobacco Screening Tobacco Screening [facility] Start: 08-11-2023 DTaP,Tdap and Td Vaccines (7 - Td or Tdap) DTaP,Tdap and Td Vaccines (7 - Td or Tdap) [facility] Start: 08-11-2023 DTaP/Tdap/Td vaccine (7 - Td or Tdap) DTaP/Tdap/Td vaccine (7 - Td or Tdap) [facility] Start: 08-10-2023 Influenza vaccination Influenza Vacc ine (#1) [facility] Comment on above: Postponed from 10/11 (Patient Refused) Start: 06-15-2023 Screening for malign ant neoplasm of cervix Pap Smear [facility] Start: 04-10-2023 End: 04-10-2023 Patient encounter procedure [facility] [place] Start: 03-19-2023 End: 03-19-2024 CBC panel - Blood by Automated count CBC Lab Routine Diabetes mellitus screening Expected: 03/19/2023 (Approximate), Expires: 03/19/2024 [facility] Work Phone: Comment on above: Expected: 03/19/2023 (Approximate), Expires: 03/19/2024 Start: 03-19-2023 End: 03-19-2024 Measurement of glucose 1 hour after glucose challenge for glucose tolerance test Glucose tolerance, 1 hour Lab Routine Diabetes mellitus screening Expected: 03/19/2023 (Approximate), Expires: 03/19/2024 [facility] Comment on above: Expected: 03/19/2023 (Approximate), Expires: 03/19/2024 Start: 03-05-2023 End: 03-05-2023 Patient encounter procedure 03/05/2023 11:30 AM EST Office Visit [facility] at [facility] [address] [place] [phone] Karoline Hopson MD [address] [place], [place] [id number] [facility] Start: 03-05-2023 End: 03-05-2023 Patient encounter procedure 03/05/2023 9:30 AM EST Appointment [facility] [address] [place] [address] [facility] Start: 02-07-2023 End: 02-07-2023 Patient encounter procedure [facility] [place] Start: 10-11-2022 Influenza vaccination Influenza Vacc ine [facility] Start: 09-19-2022 Adult BMI Follow Up Plan Adult BMI Follow Up Plan [facility] Start: 02-08-2022 Bacteria identified in Urine by Culture Urine Culture [facility] Start: 01-08-2022 Hemoglobin A1c measurement A1C test (Diabetic or Prediabetic) [facility] Start: 10-11-2021 Influenza vaccination Flu vacc ine (Season Ended) [facility] Start: 07-14-2021 Hemoglobin A1c measurement A1C test (Diabetic or Prediabetic) [facility] Work Phone: Start: 06-18-2021 End: 06-18-2021 Patient encounter procedure 06/18/2021 Office Visit Bariatrics Deann Navarro, DIRECT SUPPORT STAFF - [employer]FLOAT CRYPTOLOGIC MANAGER [address] [place] [address] [facility] Start: 05-24-2021 End: 05-24-2021 Patient encounter procedure 05/24/2021 Office Visit BariatricPatricia Leary DO [address] [place] [phone] [facility] Invasive Bariatric Surg Start: 05-16-2021 End: 05-16-2021 Admission to same day surgery center 05/16/2021 Surgery IP Unit Patricia Mars DO [address] [place] [phone] XI ROBOTIC LAPAROSCOPIC GASTRECTOMY SLEEVE , LIVER BIOPSY, EGD- GI SCHEDULED [facility] Comment on above: XI ROBOTIC LAPAROSCO PIC GASTRECTOMY SLEEVE , LIVER BIOPSY, EGD- GI SCHEDULED Start: 05-16-2021 End: 05-16-2021 Laps gstrc rstrictiv px longitudinal gastrectomy GASTRECTOMY SLEEVE LAPAROSCOPIC ROBOTIC MORBID OBESITY, OBSTRUCTIVE SLEEP APNEA, GERD 05/16/2021 7:10 AM EDT [facility] Start: 05-16-2021 Subsequent hospital visit by physician 05/16/2021 Hospital Encounter IP Unit Patricia Mars DO [address] [place] [phone] [facility] Start: 05-13-2021 End: 05-13-2021 Patient encounter procedure 05/13/2021 Appointment Pre-Admission Testing [facility] PRE ADMIT Start: 05-10-2021 End: 05-10-2021 Patient encounter procedure 05/10/2021 Office Visit Patricia Islas DO [address] [place] [phone] [facility] Invasive Bariatric Surg Start: 11-22-2020 End: 11-22-2020 Nursing evaluation of patient and report 11/22/2020 Nurse Only [facility] Start: 11-06-2020 End: 11-06-2020 Patient encounter procedure [facility] Start: 11-03-2020 End: 11-03-2020 Patient encounter procedure 11/03/2020 Office Visit Deann Brothers, DIRECT SUPPORT STAFF - AFLOAT CRYPTOLOGIC MANAGER [address] [place] [address] [facility] [place] Start: 10-11-2020 Influenza vaccination Flu vaccine (# 1) [facility] Start: 09-28-2020 End: 09-28-2020 Patient encounter procedure 09/28/2020 Office Visit Deann Brothers, DIRECT SUPPORT STAFF - [employer]FLOAT CRYPTOLOGIC MANAGER [address] [place] [phone] [facility] Start: 09-01-2015 Screening for malign ant neoplasm of cervix [facility] [employer] Start: 2009 HIV screening HIV screen [facility] Start: 2006 COVID-19 Vaccine (1) COVID-19 Vaccin e (1) [facility] Start: 2006 Depression Screen Depression Screen [facility] Start: 2006 Depression [facility]ening [facility] [place] Start: 2005 HPV vaccine (1 - 2-d ose series) HPV vaccine (1 - 2-dose series) [facility] [employer] Start: 2000 Pneumococcal 0-64 ye ars Vaccine (1 of 2 - PPSV23) Pneumococcal 0-64 years Vaccine (1 of 2 - PPSV23) [facility] [employer] Phone: Start: 09-01-1999 COVID-19 Vaccine (1) COVID-19 Vaccin e (1) [facility] [employer] Start: 09-01-1995 Varicella vaccine (1 of 2 - 2-dose childhood series) Varicella vaccine (1 of 2 - 2-dose childhood series) [facility] [employer] Start: 1994 Hepatitis C screening Hepatitis C sc [facility] End: 09-06-2020 Baseline Diagnostic Sleep Study Baseline Diagnostic Sleep Study Sleep Center Routine LYNN (obstructive sleep apnea) 1 Occurrences starting 09/06/2020 until 09/06/2020 [facility] Phone: Comment on above: 1 Occurrences starti ng 09/06/2020 until 09/06/2020 End: 02-08-2024 Calcium [Mass/volume] in Serum or Plasma Calcium Lab Routine 16 weeks gestation of H/O gastric sleeve 1 Occurrences starting 02/07/2023 until 02/08/2024 [employer] Comment on above: 1 Occurrences starti ng 02/07/2023 until 02/08/2024 End: 02-08-2024 CBC panel - Blood by Automated count CBC without diff Lab Routine Hypertension affecting in second trimester 16 weeks gestation of Dichorionic diamniotic twin in second trimester 1 Occurrences starting 02/07/2023 until 02/08/2024 [employer] Work Phone: Comment on above: 1 Occurrences starti ng 02/07/2023 until 02/08/2024 End: 02-08-2024 Comprehensive metabolic 2000 panel - Serum or Plasma Comprehensive metabolic panel Lab Routine Hypertension affecting in second trimester 16 weeks gestation of Dichorionic diamniotic twin in second trimester 1 Occurrences starting 02/07/2023 until 02/08/2024 [facility] Comment on above: 1 Occurrences starti ng 02/07/2023 until 02/08/2024 Continuous pulse oximetry Pulse oximetry, continuous Respiratory Care Routine Every 4hr until discontinued starting 05/16/2021 [employer] Work Phone: Comment on above: Every 4hr until disc ontinued starting 05/16/2021 End: 02-08-2024 Cyanocobalamin vitamin b-12 Vitamin B12 Lab Routine 16 weeks gestation of H/O gastric sleeve 1 Occurrences starting 02/07/2023 until 02/08/2024 [facility] Comment on above: 1 Occurrences starti ng 02/07/2023 until 02/08/2024 End: 02-08-2024 ECG 12 lead ECG 12 lead ECG Routine Hypertension affecting in second trimester 16 weeks gestation of Dichorionic diamniotic twin in second trimester 1 Occurrences starting 02/07/2023 until 02/08/2024 [facility] Comment on above: 1 Occurrences starti ng 02/07/2023 until 02/08/2024 End: 02-08-2024 Folate Folate Lab Routine 16 weeks gestation of H/O gastric sleeve 1 Occurrences starting 02/07/2023 until 02/08/2024 [facility] Comment on above: 1 Occurrences starti ng 02/07/2023 until 02/08/2024 End: 02-08-2024 Iron and TIBC Iron and TIBC Lab Routine 16 weeks gestation of H/O gastric sleeve 1 Occurrences starting 02/07/2023 until 02/08/2024 [facility] Comment on above: 1 Occurrences starti ng 02/07/2023 until 02/08/2024 End: 02-08-2024 LDH LDH Lab Routine Hypertension affecting in second trimester 16 weeks gestation of Dichorionic diamniotic twin in second trimester 1 Occurrences starting 02/07/2023 until 02/08/2024 [facility] Comment on above: 1 Occurrences starti ng 02/07/2023 until 02/08/2024 End: 02-08-2024 Natriuretic peptide B [Mass/volume] in Blood B-type natriuretic peptide Lab Routine Hypertension affecting in second trimester 16 weeks gestation of Dichorionic diamniotic twin in second trimester 1 Occurrences starting 02/07/2023 until 02/08/2024 [facility] Comment on above: 1 Occurrences starti ng 02/07/2023 until 02/08/2024 Oxygen therapy [[facility] Data Set] Initiate Oxygen Therapy Protocol Respiratory Care Routine As Needed until discontinued starting 05/16/2021 [employer] Phone: Comment on above: As Needed until disc ontinued starting 05/16/2021 End: 02-08-2024 Protein creat ratio Protein creat ratio Lab Routine Hypertension affecting in second trimester 16 weeks gestation of Dichorionic diamniotic twin in second trimester 1 Occurrences starting 02/07/2023 until 02/08/2024 [facility] Comment on above: 1 Occurrences starti ng 02/07/2023 until 02/08/2024 End: 02-08-2024 Protein, urine, 24 hour Protein, urine, 24 hour Lab Routine Hypertension affecting in second trimester 16 weeks gestation of Dichorionic diamniotic twin in second trimester 1 Occurrences starting 02/07/2023 until 02/08/2024 [facility] Comment on above: 1 Occurrences starti ng 02/07/2023 until 02/08/2024 Spirometry panel Incentive isiah metry Respiratory Care Routine Every 2hr while awake until discontinued starting 05/16/2021 [employer] Phone: Comment on above: Every 2hr while awak e until discontinued starting 05/16/2021 Surgical Pathology Surgical Path ology Lab Routine Release Upon Ordering for 1 Occurrences starting 05/16/2021 [employer] Phone: Comment on above: Release Upon Orderin g for 1 Occurrences starting 05/16/2021 End: 02-08-2024 Thiamin Vitamin B1, whole blood Thiamin Vitamin B1, whole blood Lab Routine 16 weeks gestation of H/O gastric sleeve 1 Occurrences starting 02/07/2023 until 02/08/2024 [facility] Comment on above: 1 Occurrences starti ng 02/07/2023 until 02/08/2024 End: 02-08-2024 Urate [Mass/volume] in Serum or Plasma Uric acid Lab Routine Hypertension affecting in second trimester 16 weeks gestation of Dichorionic diamniotic twin in second trimester 1 Occurrences starting 02/07/2023 until 02/08/2024 [facility] Comment on above: 1 Occurrences starti ng 02/07/2023 until 02/08/2024 End: 02-08-2024 Vitamin D 25 hydroxy Vitamin D 25 hydroxy Lab Routine 16 weeks gestation of H/O gastric sleeve 1 Occurrences starting 02/07/2023 until 02/08/2024 [facility] Comment on above: 1 Occurrences starti ng 02/07/2023 until 02/08/2024 Immunizations Immunization Date Immunization Notes Care Provider [facility] 11-12-2016 tuberculin skin test ; purified protein derivative solution, intradermal Tatiana Yap MD Work Phone: [facility] 08-10-2013 tetanus toxoid, redu yemi diphtheria toxoid, and acellular pertussis vaccine, adsorbed Tatiana Yap MD Work Phone: [facility] 10-03-1999 diphtheria, tetanus toxoids and acellular pertussis vaccine Tatiana Yap MD Work Phone: [facility] 10-03-1999 diphtheria, tetanus toxoids and acellular pertussis vaccine, unspecified formulation Eloise BURROUGHS Work Phone: [facility] 10-03-1999 hepatitis B vaccine, pediatric or pediatric/adolescent dosage Tatiana Yap MD Work Phone: [facility] 10-03-1999 measles, mumps and rubella virus vaccine Tatiana Yap MD Work Phone: [facility] 10-03-1999 poliovirus vaccine, inactivated Tatiana Yap MD Work Phone: [facility] 01-14-1996 diphtheria, tetanus toxoids and acellular pertussis vaccine Tatiana Yap MD Work Phone: [facility] 01-14-1996 diphtheria, tetanus toxoids and pertussis vaccine Eloise BURROUGHS Work Phone: [facility] 01-14-1996 haemophilus influenz ae type b vaccine, conjugate unspecified formulation Tatiana Yap MD Work Phone: [facility] 01-14-1996 measles, mumps and rubella virus vaccine Tatiana Yap MD Work Phone: [facility] 05-21-1995 diphtheria, tetanus toxoids and acellular pertussis vaccine Tatiana Yap MD Work Phone: [facility] 05-21-1995 DTP-Haemophilus influenzae type b conjugate vaccine Eloise BURROUGHS Work Phone: [facility] 05-21-1995 haemophilus influenz ae type b vaccine, conjugate unspecified formulation Tatiana Yap MD Work Phone: [facility] 05-21-1995 poliovirus vaccine, inactivated Tatiana Yap MD Work Phone: [facility] 05-21-1995 trivalent poliovirus vaccine, live, oral Eloise BURROUGHS Work Phone: [facility] 02-21-1995 diphtheria, tetanus toxoids and acellular pertussis vaccine Tatiana Yap MD Work Phone: [facility] 02-21-1995 DTP-Haemophilus influenzae type b conjugate vaccine Eloise BURROUGHS Work Phone: [facility] 02-21-1995 haemophilus influenz ae type b vaccine, conjugate unspecified formulation Tatiana Yap MD Work Phone: [facility] 02-21-1995 hepatitis B vaccine, pediatric or pediatric/adolescent dosage Tatiana Yap MD Work Phone: [facility] 02-21-1995 poliovirus vaccine, inactivated Tatiana Yap MD Work Phone: [facility] 02-21-1995 trivalent poliovirus vaccine, live, oral Eloise BURROUGHS Work Phone: [facility] 1994 diphtheria, tetanus toxoids and acellular pertussis vaccine Tatiana Yap MD Work Phone: [facility] 1994 DTP-Haemophilus influenzae type b conjugate vaccine Eloise BURROUGHS Work Phone: [facility] 1994 haemophilus influenz ae type b vaccine, conjugate unspecified formulation Tatiana Yap MD Work Phone: [facility] 1994 hepatitis B vaccine, pediatric or pediatric/adolescent dosage Tatiana Yap MD Work Phone: [facility] 1994 poliovirus vaccine, inactivated Tatiana Yap MD Work Phone: [facility] 1994 trivalent poliovirus vaccine, live, oral Eloise BURROUGHS Work Phone: [facility] 1994 hepatitis B vaccine, pediatric or pediatric/adolescent dosage Tatiana Yap MD Work Phone: [facility] Payers Date Payer Category Payer Medicaid [id number] 2022 Medicaid [id number] 2022 Self-pay 2019 Unknown [id number]. [id number] 1994 Unknown [id number] 2.16.840.1.033415.3.579.2. 173 1994 Unknown [id number] 2.16.840.1.938962.3.579.2. 173 1994 Unknown [id number] 2.16.840.1.731703.3.579.2. 173 1994 Unknown [id number] 2.16.840.1.084675.3.579.2. 593 1994 Unknown [id number] 2.16.840.1.699862.3.579.2. 593 1994 Unknown [id number] 2.16.840.1.981212.3.579.2. 593 1994 Unknown [id number] 2.16.840.1.629122.3.579.2. 593 1994 Unknown [id number] 2.16.840.1.993861.3.579.2. 593 1994 Unknown [id number] 2.16.840.1.390817.3.579.2. 593 1994 Unknown [id number] 2.16.840.1.322710.3.579.2. 175 1994 Unknown [id number] 2.16.840.1.872026.3.579.2. 1286 1994 Unknown [id number] 2.16.840.1.776173.3.579.2. 1286 1994 Unknown [id number] 2.16.840.1.440553.3.579.2. 1286 1994 Unknown [id number] 2.16.840.1.140572.3.579.2. 1286 1994 Unknown [id number] 2.16.840.1.544077.3.579.2. 1259 1994 Unknown [id number] 2.16.840.1.529036.3.579.2. 1259 1994 Unknown [id number] 2.16.840.1.959476.3.579.2. 1259 1994 Unknown [id number] 2.16.840.1.925528.3.579.2. 1259 1994 Unknown [id number] 2.16.840.1.809372.3.579.2. 1259 1994 Unknown [id number] 2.16.840.1.012953.3.579.2. 1259 1994 Unknown [id number] 2.16.840.1.622036.3.579.2. 1259 1959 Private Health Insurance [id number] [id number]. [id number] Private Health Insurance [facility] [id number] Unknown [id number] 2.16.840.1.006300.3.579.2. 531 Social History Date Type Detail Facility Start: 09-01-2020 End: 09-28-2020 Tobacco smoking status [facility] Current every day smoker [employer] Phone: Start: 09-01-2020 End: 07-03-2022 Cigarettes smoked current (pack per day) - Reported [employer] [facility] Start: 09-01-2020 End: 07-03-2022 Tobacco use and exposure Never used [employer] Phone: Start: 09-01-2020 End: 09-28-2020 Alcohol intake Current drinker of alcohol (finding) [employer] Phone: Start: 12-23-2019 Alcohol Comment weekly [employer] Phone: Start: 1994 Sex Assigned At Not on file [employer] Phone: Start: 04-22-2021 End: 05-16-2021 Exposure to SARS-CoV-2 (event) Not sure [employer] Exposure to SARS-CoV -2 (event) Yes [employer] Start: 01-19-2021 End: 07-03-2022 Tobacco smoking status [facility] Ex-smoker [employer] Start: 02-11-2008 End: 11-19-2020 History of tobacco use Current smoker [employer] Phone: Start: 05-02-2021 End: 02-26-2023 Alcohol intake Ex-drinker (finding) [employer] Phone: Start: 08-17-2018 End: 07-03-2022 Sex Assigned At [employer] Start: 1995 Sex Assigned At Female [facility] Start: 02-11-2008 End: 02-11-2020 History of tobacco use Cigarette Smoker [facility] History of tobacco use Tobacco U se Types Packs/Day Years Used Date Smoking Tobacco: Former Cigarettes Quit: 2020 Vaping/E-cigarettes Smokeless Tobacco: Former Quit: 11/06/2020 [facility] Start: 02-05-2023 Tobacco use and exposure Former smokeless tobacco user [facility] End: 11-06-2020 History of tobacco use User of smokeless tobacco [facility] Frequency of Communication with Friends and Family More than three times a week [facility] Start: 08-17-2018 Education 12 [facility] Start: 05-18-2022 Alcohol Comment social, every other weekend [facility] Start: 10-31-2022 [facility] Within the last year , have you been afraid of your partner or ex-partner? No [facility] Are you now , , , , never or living with a partner? Never [facility] How often to you hav e a drink containing alcohol? Monthly or less [facility] How many standard dr inks containing alcohol do you have on a typical day? 1 or 2 [facility] How often do you hav e 6 or more drinks on 1 occasion? Never [facility] Do you feel stress - tense, restless, nervous, or anxious, or unable to sleep at night because your mind is troubled all the time - these days [OSQ] Not at all [facility] (I/We) worried wheth er (my/our) food would run out before (I/we) got money to buy more. Never true [facility] Start: 09-04-2022 Alcohol Comment caffeine: 1-2 cups per day coffee [facility] Clinical Notes 12-04-2020 to 03-19-2023 HEIKE Meeks - 03/19/2023 11:00 AM Alva Castillo RN - 03/05/2023 11:30 AM Augustin Hopson MD - 03/05/2023 11:30 AM ESTTelephone Encounter - Sangita Thomas RN - 02/24/2023 12:34 PM EST Note Date & Type Note Facility 03-19-2023 History of Presen t illness Narrative Reason for Appointment: Patient ID: Fina Walker is a 27 y.o. female who presents for Routine Visit Patient presents today for Return OB appointment. Patient presents today for a routine obstetrics appointment. Patient is currently 21w6d with a Estimated Date of Delivery: 07/24/23. Current Medications: has a current medication list which includes the following prescription(s): aspirin, buspirone, fluticasone, hydroxyzine hcl, ondansetron, pantoprazole, and pyridoxine. Medical History: Active Ambulatory Problems Diagnosis Date Noted Generalized anxiety disorder (CMS/HCC) 07/03/2022 S/P gastric sleeve procedure 07/03/2022 Symptomatic cholelithiasis 07/03/2022 Anxiety 06/28/2020 Astigmatism 04/26/2020 Current smoker 06/28/2020 GERD without esophagitis 06/28/2020 Excess skin of abdomen 06/05/2022 History of nicotine use 01/02/2021 History of induced hypertension 06/28/2020 History of COVID-19 11/03/2020 Low iron 09/01/2020 Obesity, unspecified 06/22/2021 LYNN (obstructive sleep apnea) 06/28/2020 Prediabetes 06/28/2020 Resolved Ambulatory Problems Diagnosis Date Noted No Resolved Ambulatory Problems Past Medical History: Diagnosis Date COV2021 Herpes simplex No family history on file. Social History Tobacco Use Smoking status: Former Packs/day: 0.50 Years: 15.00 Additional pack years: 0.00 Total pack years: 7.50 Types: Cigarettes Start date: 2008 Quit date: 2020 Years since quittin.1 Smokeless tobacco: Never Vaping Use Vaping Use: Every day Substance Use Topics Alcohol use: Not Currently Comment: caffeine: 1-2 cups per day coffee Drug use: Never Past Surgical History: Procedure Laterality Date SECTION, LOW TRANSVERSE 2018 CT ANGIOGRAM HEART CORONARY 09/19/2020 CT ANGIOGRAM TAVR 09/19/2020 SLEEVE GASTROPLASTY 2021 TONSILLECTOMY 2000 Allergies Allergen Reactions Ibuprofen Has gastric sleeve procedure Review of Systems: Review of Systems Constitutional: Negative. HENT: Negative. Eyes: Negative. Respiratory: Negative. Cardiovascular: Negative. Gastrointestinal: Negative. Genitourinary: Negative. Musculoskeletal: Negative. Skin: Negative. Neurological: Negative. All other systems reviewed and are negative. Hematological: Negative. Endocrine: Negative. Allergic/Immunologic: Negative. Objective Physical Exam Constitutional: Appearance: Normal appearance. She is normal weight. HENT: Head: Normocephalic. Cardiovascular: Rate and Rhythm: Normal rate. Pulses: Normal pulses. Pulmonary: Effort: Pulmonary effort is normal. Breath sounds: Normal breath sounds. Abdominal: Palpations: Abdomen is soft. Musculoskeletal: General: Normal range of motion. Neurological: General: No focal deficit present. Mental Status: She is alert and oriented to person, place, and time. Psychiatric: Mood and Affect: Mood normal. Behavior: Behavior normal. Thought Content: Thought content normal. Judgment: Judgment normal. Vitals and nursing note reviewed. Vitals: Estimated body mass index is 36.34 kg/m as calculated from the following: Height as of 02/04/23: 5' 7 . Weight as of this encounter: 232 lb. BP: 124/78 Patient's last menstrual period was 10/17/2022. Assessment/Plan Encounter Diagnoses Name Primary? Second trimester Diabetes mellitus screening Pt given one hour glucose and CBC order today to have obtained for next visit Patient presents today for a routine obstetrics appointment. Patient is currently 21w6d . Patient states she is doing well but has complaints of being tired due to current . Patient has verbalizes frequent movement. labor precautions was discussed/given Follow Up: Patient is to return to office in 2 week for routine OB appointment. Documented by HEIKE Meeks on behalf of: HEIKE Meeks documented in this encounter [facility] 03-05-2023 History of Presen t illness Narrative Headache/epigastric pain/blurry vision/swelling? No Cramping/contractions? No Abnormal vaginal discharge? No Spotting or vaginal bleeding? No Loss of fluid like your water may have broken? No Recent ER visits or hospitalizations? Patient reports visit to [place] approximately two weeks ago to r/o ROM Any concerns that you would like me to mention to the provider today? No REASON FOR OFFICE VISIT: Dichorionic diamniotic twin gestation. HISTORY OF PRESENT ILLNESS: Fina Walker is a pleasant 27 y.o. G 5p 3-0 131 at 19w6d due on Estimated Date of Delivery: 07/24/23 . has been complicated with Spontaneously conceiving dichorionic diamniotic twin gestation. 2. Maternal essential hypertension with good blood pressure control. Patient currently not on medication. 3. History of gastric sleeve procedure. Patient currently on low-dose aspirin therapy for preeclampsia prevention. 4. History of medically indicated delivery due to elevated blood pressure possible preeclampsia at 36 weeks gestation. 5. History of prior . Patient interested in repeat at her local hospital. Currently the patient has no complaints. The patient denies nausea, vomiting, abdominal pain, vaginal bleeding, SOB or chest pain. Patient Active Problem List Diagnosis Astigmatism Anxiety Low iron History of induced hypertension History of sleeve gastrectomy ALLERGIES: Allergies Allergen Reactions Ibuprofen Has gastric sleeve procedure CURRENT MEDICATIONS: Current Outpatient Medications: aspirin 81 mg chewable tablet, Chew 1 tablet (81 mg total) and swallow in the morning., Disp: , Rfl: hydrOXYzine (ATARAX) 25 mg tablet, Take 1 tablet (25 mg total) by mouth 3 (three) times a day as needed., Disp: , Rfl: pantoprazole (PROTONIX) 40 mg EC tablet, Take 1 tablet (40 mg total) by mouth in the morning., Disp: , Rfl: acidophilus-pectin, citrus 25 million cell -100 mg tablet, Take by mouth 3 (three) times a day with meals. (Patient not taking: Reported on 03/05/2023), Disp: , Rfl: calcium carbonate/vitamin D3 (CALCIUM WITH VITAMIN D ORAL), Take by mouth. (Patient not taking: Reported on 02/07/2023), Disp: , Rfl: cyanocobalamin 500 MCG tablet, Take 1 tablet (500 mcg total) by mouth in the morning. (Patient not taking: Reported on 02/07/2023), Disp: , Rfl: MULTIVITAMIN ORAL, Take 1 tablet by mouth. (Patient not taking: Reported on 02/07/2023), Disp: , Rfl: ondansetron ODT (ZOFRAN ODT) 4 mg disintegrating tablet, Dissolve 1 tablet (4 mg total) on tongue every 8 (eight) hours as needed for nausea for up to 10 doses. (Patient not taking: Reported on 02/07/2023), Disp: 10 tablet, Rfl: 0 pyridoxine, vitamin B6, (B-6) 25 mg tablet, Take 1 tablet (25 mg total) by mouth 3 (three) times a day as needed (T.i.d. p.r.n. for nausea and vomiting). (Patient not taking: Reported on 03/05/2023), Disp: 60 tablet, Rfl: 0 zinc 50 mg tablet tablet, Take 1 tablet (50 mg total) by mouth in the morning. (Patient not taking: Reported on 02/07/2023), Disp: , Rfl: Past Medical History: Diagnosis Date Anxiety Astigmatism Cholelithiasis COVID-19 GERD (gastroesophageal reflux disease) H/O gastric sleeve HSV (herpes simplex virus) infection Obesity LYNN (obstructive sleep apnea) REVIEW OF SYSTEMS: Head and Neck: Negative for any dizziness and headaches. Cardiovascular and Respiratory System: Denies any chest pain, shortness of breath, and coughing. Abdominal and System: Denies any abdominal pain, nausea, vomiting, vaginal bleeding, and vaginal discharge REVIEW OF ULTRASOUND. Pertinent Ultrasound findings are see report. PHYSICAL EXAMINATION: BP 126/75 Pulse 89 Wt 101.6 kg (224 lb) LMP 10/17/2022 BMI 35.08 kg/m . Gravid abdomen, Respirations not labored. Normal gait well oriented in time place and person. RECOMMENDATION: 1. Follow-up in 4 weeks for completion of targeted anatomy. 2. Continue serial growth ultrasounds every 4 weeks after 24 weeks gestation at her OB office. 3. Patient is a candidate for testing based on dichorionic diamniotic twin gestation. 4. Delivery at 38 weeks gestation at her local hospital via . 5. Patient does not have any future appointment scheduled with Maternal- Medicine physicians 6. Please see original consultation letter for complete recommendations. Thank you for allowing me [facility]. If there are any questions, please do not hesitate to call me. Sincerely, KAROLINE HOPSON MD documented in this encounter [facility] 02-24-2023 Miscellaneous Notes Incoming telephone call from patient with concerns of leakage of fluid. Patient called in and stated that she is Leaking clear fluid and has been. Cradle Slide Maker asked if she had spoken to her OB provider and she said that she had, but they told her that she is basically too early to be leaking any fluid. Cradle Slide Maker recommended patient present to the nearest emergency room to be evaluated. Patient verbalized understanding and had no further questions. documented in this encounter [facility] 02-24-2023 Telephone encounter Note Incoming telephone call from patient with concerns of leakage of fluid. Patient called in and stated that she is Leaking clear fluid and has been. Cradle Slide Maker asked if she had spoken to her OB provider and she said that she had, but they told her that she is basically too early to be leaking any fluid. Cradle Slide Maker recommended patient present to the nearest emergency room to be evaluated. Patient verbalized understanding and had no further questions. [facility] 02-07-2023 History of Presen t illness Narrative Headache/epigastric pain/blurry vision/swelling? Occasional headaches Cramping/contractions? No Abnormal vaginal discharge? No Spotting/vaginal bleeding? No Loss of fluid like your water may have broken? No Cats in the home? No Do you change the litter box? No Flu vaccine? No Genetic testing done this here or other office? Yes Have you been seen here at [facility] in a previous ? No Recent ER visits or hospitalizations? No Bring blood sugar log or meter with you today? (Please bring them with you for every visit at [facility]) N/A Traveled outside the country in the past 6 month No Any concerns that you would like me to mention to the provider today? No REASON FOR CONSULTATION: Twins HISTORY OF PRESENT ILLNESS: Fina Danitza Drenning is a pleasant 27 y.o. at 16w1d [...] TESTS AND ULTRASOUND REPORTS: Referral records and [facility] chart were reviewed Pertinent Ultrasound findings are [...] - 1.00 mg/dL Final METHOD TRACEABLE TO IDPR STANDARD Glucose 01/03/2023 71 65 - 99 [...] operators who are performing tests using either Delivery [employer] DX or readeo systems and is limited to laboratories that [...] repeat. Fact Sheet for Healthcare Providers: https://www.f da.gov/media/564847/download Fact Sheet for Patients: https://www.fda.gov/media/699960 /download HABITS: Patient activity no restrictions, diet no restrictions PHYSICAL EXAMINATION: BP 126/83 Pulse 76 Ht 170.2 cm (5' 7 ) Wt 98.9 kg (218 lb) LMP 10/17/2022 BMI 34.14 kg/m Well-appearing in no distress. Respirations not labored, speaking comfortably in full sentences Gravid abdomen OVERALL ASSESSMENT -Fina Walker is a pleasant 27 y.o. at 16w1d [...] previously recommended threshold of 160/110. Reference: PMID: [id number], 2021. Blood pressures do increase as progresses [...] preeclampsia prevention as is recommended by the [place] [employer]ne[employer] Committee Opinion No. 743. Higher doses (150mg) have been studied, but utilized a screening strategy that is not widely performed in the [place] (serum analytes and uterine artery Doppler), limiting the generalizability of the findings. We discussed the safety profile of nifedipine when used to treat chronic hypertension in , and patient information handout provided to her today: https://mothertobaby.org/fact-sh eets/nifedipine/pdf/ We discussed the safety profile of beta blockers when used to treat chronic hypertension in : https://motherResolutionTube.org/fact-sh eets/labetalol/pdf/ Bariatric Surgery S/p Bariatric surgery It is [...] aspirin vs 10.3% no aspirin, p=0.45) (PMBID: [id number]). Given well-established benefits baby aspirin for the prevention of preeclampsia, I recommend initiating baby aspirin even in the setting of history of Joe-en-Y surgery. Micronutrient Dosing Recommendations: Calcium: recommend 1000-1200mg daily; if deficient, recommend 1800-93239 mg PO daily in divided doses Vitamin [...] sooner if clinically indicated Follow up in [facility] in 4 weeks for anatomy and clinic follow-up DISPOSITION: At this point the patient is in complete care of her hard tile setter apprentice. Patient does have ultrasound and office visit scheduled with us. Thank you for allowing me to participate in the care of Fina Walker. If there any questions please do not hesitate to contact us. Total time spent was 43 minutes: Preparing to see the patient (e.g., review of tests) Obtaining and/or reviewing separately obtained history Performing a medically appropriate examination and/or evaluation Counseling and educating the patient/family/caregiver Ordering medications, tests, or procedures Referring and communicating with other health healthcare facility administrator (not separately reported) Documenting clinical information in the electronic or other health record Tatiana Yap MD Maternal- Medicine [facility] [address] [place] [address] [facility], the CDC, and other organizations representing maternal and public health professionals recommend that , , and lactating people and those considering receive the COVID-19 vaccination. Vaccination is the best method to reduce maternal and complications of SARS-CoV-2 infection. This document was created with Triprental[employer] technology. Though I make every effort to review the dictation as it is transcribed, on occasion the spoken word can be misinterpreted by the technology leading to inappropriate words, phrases, or sentences. This note is addressed to the requesting provider as a consultation for clinical guidance. Specific medical abbreviations are occasionally used and those are generally approved by the [place]?Board of?Obstetrics and?Gynecology?as well as?Maddison hodgson abbreviations. The above plan of care was based solely on the diagnoses for which a consultation was requested. ?More frequent testing may be indicated based on her other medical/obstetrical conditions. The management of other or medical conditions is beyond the scope of requested consultation and will continue to be followed by the primary hard tile setter apprentice or primary care provider. Note to patient: The Century Cures Act makes medical notes like [...] of the practitioner. documented in this encounter [facility] 10-12-2022 Evaluation note Encounter Date [...] take Sudafed and/or Mucinex for congestion. Take eptu-ptr-krsci er Robitussin or Delsym for cough. Follow-up with your family physician if no improvement in 2 to 3 days. Off work tomorrow. Oct, Cough (ICD-10 - R05.9) Oct, Bronchitis (ICD-10 - J40) Acute bronchitis material was printed [email or web address] Other 10-19-2022 NotePatient Education Materials [id number] History of Present illness Narrative* Payal Richardson [...] and patient voices understanding [facility] Phone: 1(325) 890-211304-07-2022 Hospital Discharge instructions* Instructions* Hannah Zavaleta, RN - 05/17/2021 Discharge Instructions for Bariatric Surgery You had a Laparoscopic Sleeve Gastrectomy (87309) surgery to treat obesity. Recovery from this [...] in one week. Follow up with Dr. Mars in 1 week. If you don't already have a scheduled appointment, please call the office at [phone]. Call Your Doctor If Any of the [...] sent through Care Everywhere. * Enoxaparin (Lovenox) ([place] Korean) * Video: How to Give Yourself an Anticoagulant (Blood Thinner) Shot ([place]) documented in this [place] [facility] Phone: [phone]) 816-550603-23-2022 Hospital Discharge instructions* Instructions* Kendal Wilhelm APRN - AFLOAT CRYPTOLOGIC MANAGER - 05/02/2021 Pre-operative Instructions NOTHING to eat [...] Day of Surgery/Procedure As a patient at [facility] you can expect quality medical and nursing care that is centered on your individual needs. Our goal is to make your surgical experience as comfortableas possible Directions to the Surgery Center The surgery Center at [facility] is located in the Emergency Room parking lot on [address] or there is additional parking across the street. The address is [address] [place] [address]. Please check in at the Surgery Center [...] on the day of surgery please contact [phone] or [phone] If you have any other questions regarding your procedure/surgery please call your surgeon's office. documented in this [place] [facility] Phone: [phone]) 593-979103-23-2022 History of Present illness Narrative* Eloise Chi RN - 05/02/2021 11:00 AM EDT Obtained medical clearance for OR on 05/16/2021. * Kendal Wilhelm APRN - ELOISE - 05/02/2021 11:00 AM EDT Anesthesia Focused [...] syndrome) Under care of team 05/02/2021 pcp-Dr MelgozaFljtol-htzmibf-oxth visit april 2021 Patient was evaluated in PAT & anesthesia guidelines were applied. NPO guidelines, medication instructions and scheduled arrival time were reviewed with patient. Anesthesia contacted: no Medical or cardiac clearance ordered: no, medical clearance obtained. LAURA Garcia CNP 05/02/21 11:53 AM documented in this encounter[facility]obe Consulting Group Phone: [phone] 249-675610-25-2021 Evaluation note* Encounter Date Diagnosis Assessment Notes Treatment Notes Treatment Clinical Notes Nov, Contact with and (suspected) exposure to other viral communicable diseases (ICD-10 - Z20.828) Nov, Viral URI with cough (ICD-10 - J06.9) No COVID test completed at this time. Advised patient that will tx as viral URI. Supportive care as directed, increase fluids and rest, Tylenol/Motrin as directed, rx of [place] and Flonase as directed, cool mist humidifier, [...] Patient care instructions given in writting by [facility] Care At Home document [email or web address] Other Evaluation note* Diagnosis LYNN (obstructive sleep apnea) Obstructive sleep apnea (adult) (pediatric) documented in this encounter [employer] Phone: evaluation note* Diagnosis S/P laparoscopic sleeve gastrectomy- Primary Post-op pain Other acute postoperative pain documented in this encounter [employer] Phone: evaluation noteNo assessment information available [facility] Work Phone: Evaluation noteNo InformationNort [employer] Other Evaluation note* Diagnosis Hypertension affecting in second trimester- Primary 16 weeks gestation of Dichorionic diamniotic twin in second trimester H/O gastric sleeve documented in this encounter [facility] note* Diagnosis Hypertension affecting in second trimester 16 weeks gestation of Dichorionic diamniotic twin in second trimester documented in this encounter [facility] [employer]Evaluation note* Diagnosis Hypertension affecting in second trimester- Primary Dichorionic diamniotic twin in second trimester [facility]* Diagnosis History of sleeve gastrectomy- Primary History of induced hypertension [facility] [place]* Diagnosis Second trimester state, incidental Diabetes mellitus screening Screening for diabetes mellitus [facility] - Reported* Type Description Date Medical History METABOLIC SYNDROME Medical History SYNCOPE Medical History anxiety Surgical History WISDOM TEETH Surgical History TONSILECTOMY Surgical History ENDOSCOPY AND COLONSCOPY Surgical History C section Hospitalization History see above [email or web address] Other Hisdjve general Narrative - Reported* Type Description Date Medical History METABOLIC SYNDROME Medical History SYNCOPE Medical History anxiety Surgical History WISDOM TEETH Surgical History TONSILECTOMY Surgical History ENDOSCOPY AND COLONSCOPY Surgical History C section Surgical History gastric sleeve Hospitalization History see above [email or web address] Other Hishhij general Narrative - Reported* Type Description Date Medical History METABOLIC SYNDROME Medical History SYNCOPE Medical History anxiety Surgical History WISDOM TEETH Surgical History TONSILECTOMY Surgical History ENDOSCOPY AND COLONSCOPY Surgical History C section Surgical History gastric sleeve Surgical History cholcystectomy 09/10/2022 Hospitalization History see above [email or web address] Other InstructionsNot on filedocumented in this encounter [facility] filedocumented in this encounter [facility] on filedocumented in this encounter [facility]Not on filedocumented in this encounter [facility] SystemInstructionsNot on filedocumented in this encounter [facility] Narrative* Auth/Cert Specialty Diagnoses / Procedures Referred By Cristal rosen Referred To Contact Diagnoses Morbid obesity (HCC) Obstructive sleep apnea GERD (gastroesophageal reflux disease) MORBID OBESITY, OBSTRUCTIVE SLEEP APNEA, GERD Procedures DE LAP, JAY RESTRICT PROC, LONGITUDINAL GASTRECTOMY XI ROBOTIC LAPAROSCOPIC GASTRECTOMY SLEEVE , LIVER BIOPSY, EGD- GI SCHEDULED Patricia Mars, [address] [facility] [address] [place] [address] [employer] [address] [place] [address] Referral ID Status Reason Start Date Expiration Date Visits Re quested Visits Authorized [id number] 1 1 [employer] Phone: Summary Purpose Family History No Family [...] Date/ Time Advance Directives No April 27, 019 7:20am Latest Code Status on File Code Status Date Activated Date Inactivated Comments Full Code 09/19/2020 11:44 PM 09/24/2020 5:00 PM Latest Code Status on File Code Status Date Activated Date Inactivated Comments Full Code 09/19/2020 11:44 PM 09/24/2020 5:00 PM Reason for Referral Status Reason Specialty Diagnoses / Procedures Referred By Contact Referred To Contact [facility] Diagnoses LYNN (obstructive sleep apnea) Procedures Baseline Diagnostic Sleep Study Ike Moreno MD [address] [facility] [address] [place] [address] Specialty Diagnoses / Procedures Referred By Cristal rosen Referred To Contact Diagnoses Hypertension affecting in second trimester 16 weeks gestation of Dichorionic diamniotic twin in second trimester Procedures ECG 12 lead Tatiana Yap MD [address] [place] [address] Referral ID Status Reason Start Date Expiration Date V isits Requested Visits Authorized [id number] Pending Review 02/07/2023 02/07/2024 1 1 Specialty Diagnoses / Procedures Referred By Contac t Referred To Contact Maternal and Medicine Diagnoses Hypertension affecting in second trimester Dichorionic diamniotic twin in second trimester Procedures US MFM with or without consult Karoline Hopson MD [address] [place] [address] [facility] [address] [place] [address] Referral ID Status Reason Start Date Expiration Date V isits Requested Visits Authorized [id number] Pending Review 03/05/2023 03/04/2024 1 1 Chief Complaint and Reason for Visit Chief Complaint Dysuria Additional Source Comments INFORMATION SOURCE (unrecogn ized section and content) DATE CREATED AUTHOR 07/31/2017 [facility] DATE CREATED AUTHOR AUTHOR'S ORGANIZ ATION 05/21/2021 [facility] DATE CREATED AUTHOR AUTHOR'S ORGANIZ ATION 12/03/2021 [facility] DATE CREATED AUTHOR AUTHOR'S ORGANIZ ATION 01/12/2022 [facility] DATE CREATED AUTHOR AUTHOR'S ORGANIZ ATION 02/11/2022 [facility] DATE CREATED AUTHOR AUTHOR'S ORGANIZ ATION 09/13/2022 [facility] DATE CREATED AUTHOR AUTHOR'S ORGANIZ ATION 02/09/2023 [facility] DATE CREATED AUTHOR AUTHOR'S ORGANIZ ATION 03/08/2023 [facility] DATE CREATED AUTHOR AUTHOR'S ORGANIZ ATION 03/20/2023 [facility] EPIC Reason for Visit (unrecogniz ed section and content) Status Reason Specialty Diagnoses / Procedures Referred By Contact Referred To Contact [facility] Diagnoses LYNN (obstructive sleep apnea) Procedures Baseline Diagnostic Sleep Study Ike Moreno MD [address] [address] Status Reason Specialty Diagnoses / Procedures Referre d By Contact Referred To Contact Diagnoses K21.9 GERD E66.9 OBESITY Procedures DE EGD TRANSORAL BIOPSY SINGLE/MULTIPLE EGD BIOPSY Patricia Mars, [address] [facility] [address] [place] [address] [facility] Reason Comments twin HX C/S HX gastric sleeve HX PTD Reason Comments Dichorionic Diamniotic Twin Hypertension Reason Comments Routine Visit Care Teams (unrecognized sec tion and content) [employer] Relationship Specialty Start Date End Date Stephane Martin MD [address] [place] [address] PCP - General 05/17/20 [employer] Relationship Specialty Start Date End Date Stephane Martin MD [address] [place] [address] PCP - General 05/17/20 Team Status: Inactive Member Role Status Dates Ale Shields APRN Attending Provider Active [employer] Relationship Specialty Start Date End Date Margot Toure DO [address] [place] [address] PCP - [facility] 01/03/23 [employer] Relationship Specialty Start Date End Date Margot Toure DO [address] [place] [address] PCP - [facility] 01/03/23 [employer] Relationship Specialty Start Date End Date Margot Toure DO [address] [place] [address] PCP - [facility] 01/03/23 [employer] Relationship Specialty Start Date End Date Margot Toure DO [address] [place] [address] PCP - General Family Medicine 01/03/23 [employer] Relationship Specialty Start Date End Date Margot Toure DO [address] [facility] [place] [address] PCP - General Family Medicine 01/03/23 [employer] Relationship Specialty Start Date End Date Margot Toure DO [address] [place] [address] PCP - General Family Medicine 01/03/23 [employer] Relationship Specialty Start Date End Date Margot Toure DO [address] [place] [address] PCP - General Family Medicine 07/01/22 Ordered Prescriptions (unrec ognized section and content) [...] (Given - Provider: Sharmin Sam APRN - MASTER PRINTER) ceFAZolin (ANCEF) 3000 mg in sterile water 30 mL IV syringe (COMPLETED) 3,000 mg, IntraVENous, EVERY 8 HOURS, 2 doses, First dose (after last reorder) on Fri05/16/21 at 1600, Last dose on Fri05/17/21 at 0000, Antimicrobial Indications: Surgical Prophylaxis, Administer over 5 mins. 1537 (Given - Provider: Hannah Zavaleta RN) 0017 (Given - Provider: Nohemy Underwood RN) famotidine (PEPCID) 20 mg in sodium [...] RN)2007 (Given - Provider: Nohemy Underwood RN) 0922 (Given - Provider: Hannah Zavaleta RN)2100 (Due) gabapentin (NEURONTIN) capsule 100 mg 100 mg, Oral, 3 TIMES DAILY, First dose on Fri05/16/21 at 0915, Until Discontinued 0915 (Due)1530 (Given - Provider: Hannah Zavaleta RN)2007 (Given - Provider: Nohemy Underwood RN) 0758 (Given - Provider: Hannah Zavaleta RN)1331 (Given - Provider: Hannah Zavaleta RN)2100 (Due) [...] RN)2204 (Given - Provider: Nohemy Underwood RN) 0609 (Given - Provider: Nohemy Underwood RN)1331 (Given - Provider: Hannah Zavaleta RN)2200 (Due) [...] Provider: Whitney Ray RN)0709 (NoRateChange - Provider: Sharmin Sam APRN - MASTER PRINTER)0856 (Anesthesia Volume Adjustment - Provider: LAURA Mantilla MASTER PRINTER) 1631 (Stopped - Provider: Hannah Zavaleta RN) lactated ringers infusion IntraVENous, at 125 mL/hr, CONTINUOUS, Starting on Fri05/16/21 at 1030, Post-op 1026 (New Bag - Provider: Hannah Zavaleta RN)1643 (New Bag - Provider: Hannah Zavaleta RN) 0018 (New Bag - Provider: Nohemy Underwood RN)0951 (New Bag - Provider: Hannah Zavaleta, ANCELMO)1631 (Stopped - Provider: Hannah Zavaleta RN) PRN [...] 0958, Intra-op 0748 (Given - Provider: Patricia Mars, DO - Comment: Given at incision sites)0843 (Given - Provider: Patricia Mars, DO - Comment: injected at operative site) [...] RN)2007 (Given - Provider: Nohemy Underwood RN) 439 (Given - Provider: Nohemy Underwood RN) oxyCODONE-acetaminophen [...] (See Alternative - Provider: Nohemy Underwood RN) 439 (See Alternative - Provider: Nohemy Underwood RN)104 (See Alternative - Provider: Hannah Zavaleta RN)1644 [...] hours. 1357 (Given - Provider: Hannah Zavaleta RN)2007 (Given - Provider: Nohemy Underwood RN) 044 (Given - Provider: Nohemy Underwood RN)104 (Given - Provider: Hannah Zavaleta RN)1644 (Given - Provider: Hannah Zavaleta RN) promethazine (PHENERGAN) tablet 25 mg 25 mg, Oral, EVERY 6 HOURS PRN, Starting on Fri05/16/21 at 0850, Until Discontinued, Nausea 0023 (Given - Provid er: Nohemy Underwood, RN)0950 (Given - Provider: Hannah Zavaleta RN) sodium chloride 0.9 % irrigation (COMPLETED) CONTINUOUS PRN, Starting on Fri05/16/21 at 0800, Intra-op 0800 (New Bag - Provider: Patricia Mars, DO - Comment: 1000 ml. 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 [facility] [employer] [facility]. provides no warranty or guarantee of the accuracy or completeness of information in this document.
[2023-03-24 06:59] VITALS: BP 115/71; PULSE 83
[2023-03-24 07:23] LABS: Bilirubin Urine NEGATIVE (NEGATIVE); Blood Urine NEGATIVE (NEGATIVE); Clarity Urine CLEAR (CLEAR); Color Urine YELLOW (YELLOW); Glucose Urine UA NEGATIVE (NEGATIVE); Ketones Urine TRACE mg/dL (NEGATIVE); Leukocyte Esterase Urine NEGATIVE (NEGATIVE); Nitrite Urine NEGATIVE (NEGATIVE); Protein Urine TRACE mg/dL (NEG/TRACE); Specific Gravity Urine >=1.030 (1.005-1.025); Urobilinogen Urine 0.2 EU/dL (0.2-1.0)
[2023-03-24 07:27] LABS: Urine Microscopic Indicated NO
--- NOTE | 2023-03-24 07:42 | W.PC.ACHO ---
Registration Status: ADM NAHEED Primary Language: Preferred Language: Report received from Ang Flannery RN at 0730.
[2023-03-24 07:46] VITALS: BP 102/59; PULSE 82
[2023-03-24] MEDS: 0.9 % SODIUM CHLORIDE 500 ML 1000 ML IV (08:30)
[2023-03-24] MEDS: ACETAMINOPHEN 500 MG TABLET 1000 MG PO (08:35)
[2023-03-24 09:38] VITALS: BP 104/58; PULSE 76
== END 2023-03-24 10:16 | disposition home or self-care (01) ==
LOC: FBC 06:48
PROVIDERS: Admitting Provider Obstetrics & Gynecology; Visit Provider Obstetrics & Gynecology
DX: O26.899 Other specified pregnancy related conditions, unspecified trimester (principal); R42 Dizziness and giddiness; I95.9 Hypotension, unspecified; R51.9 Headache, unspecified; R11.0 Nausea; O30.009 Twin pregnancy, unspecified number of placenta and unspecified number of amniotic sacs, unspecified trimester; Z3A.00 Weeks of gestation of pregnancy not specified
CPT/HCPCS: 81003; G0378; G0379

== ENCOUNTER 2023-04-10 06:42 | Outpatient (OUT) | payer MEDICAID, SELFPAY ==
--- OUTSIDE RECORDS SUMMARY | 2023-04-10 06:48 | XMS_ITS | CCD ---
Author Name Unknown Address [address] [facility] [address] [place] [address] Organization [facility] Care Team Providers Care Piece Goods Clerk Name Role Phone Neo Anderson Unavailable Unavailable Neo Anderson Unavailable Unavailable Jose Maria Ortega MD, [facility] Primary Care Provider DOC OKEEFE Referring Unavailable JOSE MARIA ORTEGA, STEPHANE Primary Care Unavailabl e SARY CYN Referring Unavailable [facility] Primary Care Unavailabl e IKE MORENO Referring Unavailable [facility] Primary Care Unavailabl e Gintalfredo, Ale [...] Primary Care Unavailable LAURA Shields Attending Provider [phone] Ale Shields Unavailable PATRICIA MARS Attending Unavailable PATRICIA MARS Admitting Unavailable YAW, MARGOT Primary Care Unavailable WillowPeggyLilia Unavailable Yaw DO, Margot G Primary Care Provider YAW, MARGOT G Referring Unavailable YAW, MARGOT G Primary Care Unavailable TATIANA YAP Attending Unavailable YAW, MARGOT G Referring Unavailable YAW, MARGOT G Primary Care Unavailable NIGEL ADAMES Referring Unavailable YAW, MARGOT G Primary Care Unavailable KAROLINE HOPSON Attending Unavailable ZACARIAS, NIGEL Alka Referring Unavailable YAW, MARGOT G Primary Care Unavailable NIGEL ADAMES Attending Unavailable ZACARIASNIGEL MORRIS Attending Unavailable ELOISE BURNS Attending Unavailable YAW, MARGOT G Attending Unavailable ZACARIASCHRISTIANY Attending Unavailable YAW, MARGOT G Attending Unavailable Yaw DO, Margot G Primary Care Provider Allergies Allergy Classification Reported Allergen(s) Allergy Type Date of Onset Reaction(s) Facility (11 sources) Ibuprofen; Translations: [IBUPROFEN] Drug Allergy 09-19-2021 [facility] Medications Current Medications Medication Drug Class(es) [...] Oct, Active aspirin 81 mg chewable tablet (8 sources) Platelet Aggregation Inhibitor, Nonsteroidal Anti-inflammatory Drug aspirin 81 MG chewab le tablet Chew 81 mg in the morning. 0 Active B-12 1000 MCG (1 source) take 1 tablet under the tongue once daily B-12 1000 MCG 1 tablet under the tongue and allow to dissolve Sublingual Once a day Active busPIRone hydrochloride 30 mg oral tablet (12 sources) Start: 01-23-2023 End: 02-07-2023 take 1 [...] 30 mg oral tablet (1 source) Uncompetitive U-bwawlx-N-aspartate Receptor Antagonist, Sigma-1 Agonist Start: 2020 take 1 tablet by mouth every eight hours [place] DMT 30-30 MG 1 tablet Orally every [...] propionate 0.05 mg/actuat metered dose nasal spray (7 sources) Corticosteroid Start: 2022 End: 2023 take [...] mg hydrOXYzine hydrochloride 25 mg oral tablet (15 sources) Antihistamine Start: 07-03-2022 take 1 tablet [...] Iron (2 sources) Iron Active lactobacillus acidophilus [id number] unt / pectin 100 mg oral tablet [...] Jan, Active ondansetron 4 mg oral tablet (10 sources) Serotonin-3 Receptor Antagonist Start: 10-01-19 take [...] pantoprazole 40 mg delayed release oral tablet (9 sources) Proton Pump Inhibitor Start: 07-03-2022 End: [...] completed) pyridoxine hydrochloride 25 mg oral tablet (9 sources) Start: 01-03-2023 take 1 tablet by [...] extended release oral tablet (2 sources) Uncompetitive N-qogtky-E-asparta te Receptor Antagonist, Sigma-1 Agonist Start: 01-14-2022 [...] Date Documented Da te Episodic/Chronic Anxiety disorders (16 sources) Anxiety; Translations: [Anxiety disorder, unspecified] Onset: 1 06-28-2020 Chronic Chronic obstructive pulmonary disease and bronchiectasis (1 source) Bronchitis, not specified as acute or chronic Episodic Esophageal disorders (7 sources) Gastroesophageal reflux disease without esophagitis; Translations: [...] Chronic Other nutritional; endocrine; and metabolic disorders (6 sources) Obesity; Translations: [Obesity, unspecified] Onset: 2 [...] extremity] Onset: 2 Episodic Residual codes; unclassified (8 sources) Obstructive sleep apnea syndrome; Translations: [Obstructive [...] of ] Onset: 3 Episodic Substance-related disorders (7 sources) Smoker; Translations: [Nicotine dependence, unspecified, uncomplicated] Onset: 1 06-28-2020 Chronic Unclassified (1 source) Dichorionic Diamniotic Twin Onset: 4 Varicose veins of lower extremity (4 sources) Varicose veins of bilateral lower extremities with pain; Translations: [VARICOSE VNS JOVANA LOW EXTREM W/PAIN] Onset: 2 Episodic Past or Other Problems Problem Classification Problem Date Documented Da te Episodic/Chronic Biliary tract disease (4 sources) Calculus of gallbladder without cholecystitis without obstruction; Translations: [Biliary calculus] Onset: 07-03-2022 07-03-2022 Episodic Blindness and vision defects (9 sources) Astigmatism; Translations: [Unspecified astigmatism, unspecified eye] Onset: 04-26-2020 04-26-2020 Episodic Diabetes mellitus without complication (7 sources) Prediabetes; Translations: [Prediabetes] Onset: 06-28-2020 06-28-2020 Episodic Mood disorders (6 sources) Mood disorders Onset: 08-17-2018 08-17-2018 Nutritional deficiencies (13 sources) Serum iron low; Translations: [Iron deficiency] Onset: 09-01-2020 09-01-2020 Episodic Other gastrointestinal disorders (13 sources) History of sleeve gastrectomy; Translations: [Bariatric surgery status] Onset: 05-16-2021 Episodic Other infections; including parasitic (5 sources) Personal history of other infectious and parasitic diseases; Translations: [History of COVID-19] Onset: 11-03-2020 11-03-2020 Episodic Other skin disorders (3 sources) Excess skin of abdominal wall; Translations: [Excessive and redundant skin and subcutaneous tissue] Onset: 06-05-2022 07-03-2022 Episodic Residual codes; unclassified (14 sources) H/O: hypertension; Translations: [Personal history of [...] of mental health and substance abuse codes (5 sources) History of clinical finding in subject; Translations: [Personal history of nicotine dependence] Onset: 01-02-2021 01-02-2021 Episodic Unclassified (1 source) Cough R05.9 Unclassified (6 sources) Onset: 09-19-2021 09-19-2021 Results Test Name Value Interpretation Reference Range Facility [facility] UA (CLEAN/CATCH) DIRECTOR OF OUTREACH/LISA RO IF IND.on 03-24-2023 BILIRUBIN URINE Negative NEGATIVE [facility] thcare BLOOD URINE Negative NEGATIVE [facility] Clarity (U) CLEAR CLEAR [facility] Color (U) YELLOW YELLOW [facility] GLUCOSE URINE UA Negative NEGATIVE mg/dL [facility] Interpretation and review of laboratory results Abnormal [facility] Ketones Ql (U) TRACE Abnormal NEGATIVE mg/dL [facility] ealthcare Leukocyte esterase Test strip Ql (U) Negative NEGATIVE [facility] NITRITE URINE Negative NEGATIVE [facility] care pH (U) 6.0 [pH] 5.0 - 9.0 [facility] PROTEIN URINE TRACE NEG/TRACE mg/dL [facility] SPECIFIC GRAVITY URINE >=1.030 Abnormal 1.005 - 1.025 [facility] URINE MICROSCOPIC INDICATED NO [facility] UROBILINOGEN URINE 0.2 EU/dL 0.2 - 1.0 EU/dL [facility] Urinalysis macro (dipstick) panel (U)on 03-19-2023 Bilirubin, UA Negative Negative - 4(70) +++ mg/dL [facility] Blood, UA Negative Negative - 50 Krzysztof/mcL [facility] Clarity, UA Clear [facility] Color, UA Yellow [facility] Glucose, UA Negative Negative - 1999(110) ++++ mg/dL [facility] Interpretation and review of laboratory results Abnormal [facility] Ketones, UA Negative Negative - 160(16) ++++ mg/dL [facility] Leukocytes, UA Negative Negative - 500+++ Mckayla/mcL [facility] Nitrite, UA Negative Negative - Positive [facility] pH, UA 6.0 5 - 9 [facility] e Protein, UA Positive Negative - 1999(20) ++++ mg/dL [facility] Spec Grav, UA 1.030 1 - 1.03 [facility] Urobilinogen, UA 0.2 0.2 - 12 mg/dL [facility] CBC without diffon External Hematocrit Hct 33.7 [facility] Comment on above: See attached External Hemoglobin 10.9 [facility] Comment on above: See attached External MCH 29.0 [facility] System Comment on above: See attached External Mchc 32.3 [facility] System Comment on above: See attached External Mcv 89.6 [facility] Comment on above: See attached External Mpv 9.7 [facility] Comment on above: See attached External Platelet Count 268 [facility] Comment on above: See attached External Rbc Count 3.76 [facility] Comment on above: See attached External Rdw 13.4 [facility] Comment on above: See attached External Wbc Count 9.5 [facility] Comment on above: See attached [facility] [employer] [facility] Urine protein creatinine rat ioon 02-27-2023 Protein/Creatinine (U) [Mass ratio] 0.10 mg/g [facility] Comment on above: see attached [facility] [employer] [facility] Ultrasound - Officeon 2022 Radiology Study observation (narrative) [facility] HIV 1&2 AB/AG Screen (P24 AG )on 12-20-2022 HIV 1&2 AB/AG Non-Reactive [facility] Hepatitis B surface antigeno n 12-20-2022 Hepatitis B Surface Antigen Negative [facility] No Panel Informationon 12-20 [facility] Rubella IGG immune statuson 12-20-2022 Rubella immune IgG 1.96 [facility] Syphilis Total(Unknown Syphi lis Status)on 12-20-2022 [facility]philis Non-Reactive [facility] - [facility] 2022 SEE SCANNED REPORt MANUAL LY TRANSCRIBED RESULTS [facility] COVID + FLU Quick Testingon 10-12-2022 SARS-CoV-2 (COVID-19) RNA BECCA+probe Ql (Unsp spec) negtaive [facility] Other COVID + FLU Quick Testing Negative [facility] Other Basic Metabolic Profon 09-11 Anion gap [Moles/Vol] 9 mmol/L Normal 9-17 [facility] Comment on above: Performed By: #### B FIFI, CBC, PT #### [employer] [address] [place] [phone] Performance Specialist: Anthony Aguilar MD Calcium [Mass/Vol] 8.8 mg/dL Normal 8.6-10.4 [facility] Comment on above: Performed By: #### B FIFI, CBC, PT #### [employer] [address] [place] [address] Performance Specialist: Anthony Aguilar MD Chloride [Moles/Vol] 106 mmol/L Normal 98-107 [facility] Comment on above: Performed By: #### B FIFI, CBC, PT #### [employer] [address] [place] [phone] Performance Specialist: Anthony Aguilar MD CO2 [Moles/Vol] 23 mmol/L Normal 20-31 [facility] Comment on above: Performed By: #### B MP, CBC, PT #### [employer] [address] [place] [phone] Performance Specialist: Anthony Aguilar MD Creatinine [Mass/Vol] 0.7 mg/dL Normal 0.5-0.9 [facility] Comment on above: Performed By: #### B FIFI CBC, PT #### [facility] [address] [place] [phone] Performance Specialist: Anthony Aguilar MD GFR/1.73 sq M.predicted among non-blacks MDRD (S/P/Bld) [Vol rate/Area] mL/min/{1.73_m2} Normal >60 [facility] Comment on above: Result Comment: [...] renal tubular secretion. Performed By: #### B FIFI CBC, PT #### [facility] [address] [place] [address] 216[address] Performance Specialist: Anthony Aguilar MD Glucose [Mass/Vol] 79 mg/dL Normal 70-99 [facility] Comment on above: Performed By: #### B FIFI CBC, PT #### [facility] [address] [place] [address]23 Performance Specialist: Anthony Aguilar MD Potassium [Moles/Vol] 4.1 mmol/L Normal 3.7-5.3 [facility] Comment on above: Performed By: #### B FIFI CBC, PT #### [facility] [address] [place] [address] 28855 Performance Specialist: Anthony Aguilar MD Sodium [Moles/Vol] 138 mmol/L Normal 135-144 [facility] Comment on above: Performed By: #### B FIFI, CBC, PT #### [facility] [address] [place] [address] 13425 Performance Specialist: Anthony Aguilar MD Urea nitrogen [Mass/Vol] 11 mg/dL Normal 6-20 [facility] Comment on above: Performed By: #### B MP, CBC, PT #### [facility] [address] [place] [address]953 Performance Specialist: Anthony Aguilar MD CBCon 09-11-2022 Erythrocyte distribution width (RBC) [Ratio] 13.2 % Normal 11.8-14.4 [facility] Comment on above: Performed By: #### B MP, CBC, PT #### [facility] [address] [place] [address] 11475 Performance Specialist: Anthony Aguilar MD Hematocrit (Bld) [Volume fraction] 41.6 % Normal 36.3-47.1 [facility] Comment on above: Performed By: #### B MP, CBC, PT #### [facility] [address] [place] [address]40[address] Performance Specialist: Anthony Aguilar MD Hemoglobin (Bld) [Mass/Vol] 13.3 g/dL Normal 11.9-15.1 [facility] Comment on above: Performed By: #### B MP, CBC, PT #### [facility] [address] [place] [address]156 Performance Specialist: Anthony Aguilar MD MCH (RBC) [Entitic mass] 28.3 pg Normal 25.2-33.5 [facility] Comment on above: Performed By: #### B MP, CBC, PT #### [facility] [address] [place] [address] Performance Specialist: Anthony Aguilar MD MCHC (RBC) [Mass/Vol] 32.0 g/dL Normal 28.4-34.8 [facility] Comment on above: Performed By: #### B MP, CBC, PT #### [facility] [address] [place] [address] 19834 Performance Specialist: Anthony Aguilar MD MCV (RBC) [Entitic vol] 88.5 fL Normal 82.6-102.9 [facility] Comment on above: Performed By: #### B MP, CBC, PT #### [address] [address] Performance Specialist: Anthony Aguilar MD NRBC Automated 0.0 per 100 WBC Normal 0.0 [facility] Comment on above: Performed By: #### B MP, CBC, PT #### [address] [address] Performance Specialist: Anthony Aguilar MD Platelet mean volume (Bld) [Entitic vol] 9.7 fL Normal 8.1-13.5 [facility] Comment on above: Performed By: #### B MP, CBC, PT #### [address] [address] Performance Specialist: Anthony Aguilar MD Platelets (Bld) [#/Vol] 276 10*3/uL Normal 138-453 [facility] Comment on above: Performed By: #### B MP, CBC, PT #### [address] [address] Performance Specialist: Anthony Aguilar MD RBC (Bld) [#/Vol] 4.70 10*6/uL Normal 3.95-5.11 [facility] Comment on above: Performed By: #### B MP, CBC, PT #### [address] [address] Performance Specialist: Anthony Aguilar MD WBC (Bld) [#/Vol] 7.4 10*3/uL Normal 3.5-11.3 [facility] Comment on above: Performed By: #### B MP, CBC, PT #### [address] [address] Performance Specialist: Anthony Aguilar MD PTon 4 INR Coag (PPP) [Relative time] 1.0 {INR} Normal [facility] Comment on above: Result Comment: Therapeutic Range: Moderate Anticoagulant Intensity: INR = 2.0-3.0 High Anticoagulant Intensity: INR = 2.5-3.5 Performed By: #### B MP, CBC, PT #### [facility] [place], [place] [phone] Performance Specialist: Anthony Aguilar MD PT Coag (PPP) [Time] 12.9 s Normal 11.7-14.9 [facility] Comment on above: Performed By: #### B MP, CBC, PT #### [employer] [address] [place], [place] [phone] Performance Specialist: Anthony Aguilar MD Surgical Pathologyon 023 Surgical Pathology (NOTE) Path Number: [id number] -- Diagnosis -- GALLBLADDER, CHOLECYSTECTOMY: -CHRONIC CHOLECYSTITIS WITH CHOLESTEROLOSIS AND CHOLELITHIASIS. Jameel Lawler M.D. Electronically Signed Out 09/12/2022 Clinical Information Pre-op Diagnosis: GALLSTONES Operative Findings: GALLBLADDER Operation Performed: LAPAROSCOPIC CHOLECYSTECTOMY tm Source of Specimen A: GALLBLADDER Gross Description [facility], GALLBLADDER Received in formalin is a 7.5 x [...] lesions or periductal lymph nodes are identified. Regular Senior Care Provider sections 1c. tm Microscopic Description Microscopic examination performed. Processing Lab: [address] [id number] Interpretation Performed at [address] [phone] SURGICAL PATHOLOGY CONSULTATION Patient Name: FINA WALKER [facility] Rec: [id number] [facility] con[facility]t [facility] ANATOMIC PATHOLOGY [address] [facility] [place], [place] [address] [facility] Urine Cultureon 02-08-2022 Bacteria identified Cx Nom (U) Reason for Exam Dysuria Urine ORGANISM: Escherichia coli (O:ESCCOL) [place] Count >100,000 Aerobic LISA Charge (NMIC56) ---- [...] RESISTANT TO ALL B-LACTAM DRUGS. PERFORMED BY: [facility] [place] [address] PATHOLOGIST AMMONIA PRINT OPERATOR SAMIRA WEN M.D. [facility] Comment on above: Performed By: #### C UU #### [facility] [address] [id number] [facility] VC CONSULT FOLLOWUPon 2021 VC CONSULT FOLLOWUP Patient: FINA WALKER Exam Date: 01/08/2022 : 1995 Gender:F Ordering : DR JAMEEL ABEBE M.D. Admission #: [id number] Family : Order #: [id number] CLICK HERE TO VIEW EXAM RADIOLOGY REPORT [...] Hinton M.D. on 01/08/2022 at 10:10 Normal [facility] VC EXT VENOUS RT LIMITEDon 1 03-10-2021 VC EXT VENOUS RT LIMITED Patient: FINA WALKER Exam Date: 01/08/2022 : 1995 Gender:F Ordering : DR JAMEEL ABEBE M.D. Admission #: [id number] Family : Order #: [id number] CLICK HERE TO VIEW EXAM RADIOLOGY REPORT [...] Hinton M.D. on 01/08/2022 at 10:05 Normal [facility] VC ENDOVENOUS ABL 1ST V RTon 12-31-2021 VC ENDOVENOUS ABL 1ST V RT Patient: FINA WALKER Exam Date: 12/31/2021 : 1995 Gender:F Ordering : DR JAMEEL ABEBE M.D. Admission #: [id number] Family : Order #: [id number] CLICK HERE TO VIEW EXAM RADIOLOGY REPORT [...] Abebe MD on 12/31/2021 at 11:06 Normal [facility] ED Clinical Summaryon 2021 ED Clinical Summary [facility] ? Urgent Care [address] [place] [address] Clinical Summary PERSON INFORMATION Name: VERNON WALKER Age: 26 Years Sex: FEMALE : 1995 MRN: Acct#: Visit Reason: OTTERBEIN PHYSICAL Arrival: 11/28/2021 10:39:56 Discharge: 11/28/2021 10:59:00 LOS: 000 00:20 Check In: 11/28/2021 10:39:56 Checkout: 11/28/2021 10:59:00 Address: [address] [place] [address] PCP: Provider, None PROVIDER INFORMATION VITALS INFORMATION Vital Sign Triage Latest Temperature Tympanic Temperature Temporal Artery Pulse Rate O2 Sat Respiratory Rate Blood Pressure / / MEDICAL INFORMATION Medications Given: Allergy Information: No known allergies PHYSICIAN DOCUMENTATION DISCHARGE INFORMATION: Discharge Disposition: Eloped Discharge Location: PATIENT EDUCATION INFORMATION Instructions: Follow-Up: DIAGNOSIS: Patient Understands: Comment: Normal [facility] ED Patient Summaryon 022 ED Patient Summary [facility] ? Urgent Care [address] [place] [address] PATIENT DISCHARGE INSTRUCTIONS Patient Information Name: VERNON WALKER Age: 26 Years Date of : 1995 Reason For Visit: OTTERBEIN PHYSICAL Arrival Time: 11/28/2021 10:39:56 Primary Care Physician: Provider, None Attending Physician: Nuno Bradshaw Comment: Patient Education Medication Information: The exam and treatment you received today in the [facility] Emergency Department were for an urgent problem and are not intended as complete care. It is important for you to follow up with a doctor, nurse practitioner, or physician?s assistant refinery operator for ongoing care. If your symptoms become [...] necessary. [facility] Emergency Department has provided you with a complete list of medications post discharge. Please inform your direct sales professional/provider of your visit and for further instruction [...] for Disease Control and Prevention October 2013 Normal [facility] VC CONSULT FOLLOWUPon 2021 VC CONSULT FOLLOWUP Patient: CHUCKMACKENZIEFINA Exam Date: 11/28/2021 : 1995 Gender:F Ordering : DR JAMEEL ABEBE M.D. Admission #: [id number] Family : Order #: [id number] CLICK HERE TO VIEW EXAM RADIOLOGY REPORT [...] Hinton M.D. on 11/28/2021 at 10:04 Normal [facility] VC EXT VENOUS LT LIMITEDon 1 VC EXT VENOUS LT LIMITED Patient: FINA WALKER Exam Date: 11/28/2021 : 1995 Gender:F Ordering : DR JAMEEL ABEBE M.D. Admission #: [id number] Family : Order #: [id number] CLICK HERE TO VIEW EXAM RADIOLOGY REPORT [...] Hinton M.D. on 11/28/2021 at 09:45 Normal [facility] VC ENDOVENOUS ABL 1ST V LTon 11-22-2021 VC ENDOVENOUS ABL 1ST V LT Patient: FINA WALKER Exam Date: 11/22/2021 : 1995 Gender:F Ordering : DR JAMEEL ABEBE M.D. Admission #: [id number] Family : Order #: [id number] CLICK HERE TO VIEW EXAM RADIOLOGY REPORT [...] Jameel Abebe MD on 11/22/2021 at 09:04 [facility] VC COMP CONSULTATIONon 10-17 VC COMP CONSULTATION Patient: FINA WALKER Exam Date: 10/17/2021 : 1995 Gender:F Ordering : DR JAMEEL ABEBE M.D. Admission #: [id number] Family : Order #: [id number] CLICK HERE TO VIEW EXAM RADIOLOGY REPORT [...] arterial disease 5. CEAP: C2, EC, AP, GA PLAN: 1. Continued use of compression stockings [...] M.D. on 10/17/2021 at 12:46 Normal [facility] Basic Metabolic Panelon Anion gap [Moles/Vol] 8 mmol/L Low 9 - 17 mmol/L [facility] Calcium [Mass/Vol] 8.6 mg/dL 8.6 - 10. 4 mg/dL [facility] Chloride [Moles/Vol] 106 mmol/L 98 - 107 mmol/L [facility] CO2 [Moles/Vol] 23 mmol/L 20 - 31 mmol/L [facility] Creatinine [Mass/Vol] 0.67 mg/dL 0.50 - 0.90 mg/dL [facility] GFR >60 >60 mL/min [facility] GFR Non- >60 >60 mL/min [facility] GFR/1.73 sq M.predicted MDRD (S/P/Bld) [Vol rate/Area] [facility] Comment on above: Average GFR for 20-2 9 years old: 116 mL/min/1.73sq m Chronic Kidney Disease: <60 mL/min/1.73sq m Kidney failure: <15 mL/min/1.73sq m eGFR calculated using average adult body mass. Additional eGFR calculator available at: http://www.[employer]/multiple_crcl_2011.htm Glucose [Mass/Vol] 83 mg/dL 70 - 99 mg/dL [facility] Interpretation and review of laboratory results Abnormal [facility] Potassium [Moles/Vol] 3.9 mmol/L 3.7 - 5.3 mmol/L [facility] Sodium [Moles/Vol] 137 mmol/L 135 - 144 mmol/L [facility] Urea nitrogen (BldV) [Mass/Vol] 7 mg/dL 6 - 20 mg/dL [facility] CBCon 05-17-2021 Hematocrit (Bld) [Volume fraction] 34.4 % Low 36.3 - 47.1 % [facility] Hemoglobin.gastroin testinal spec 1 Ql (Stl) 11.0 g/dL Low 11.9 - 15.1 g/dL [facility] Interpretation and review of laboratory results Abnormal [facility] MCH (RBC) [Entitic mass] 27.2 pg 25.2 - 33.5 pg [facility] MCHC (RBC) [Mass/Vol] 32.0 g/dL 28.4 - 34.8 g/dL [facility] MCV (RBC) [Entitic vol] 85.1 fL 82.6 - 102.9 fL [facility] NRBC Automated 0.0 0.0 per 100 WBC [facility] Platelet distribution width (Bld) [Ratio] 14.1 % 11.8 - 14.4 % [facility] Platelet mean volume (Bld) [Entitic vol] 10.1 fL 8.1 - 13.5 fL [facility] Platelets (Bld) [#/Vol] 302 10*3/uL [facility] RBC (Bld) [#/Vol] 4.04 10*6/uL 3.95 - 5.1 1 m/uL [facility] WBC (Bld) [#/Vol] 13.7 10*3/uL High [facility] SURGICAL PATHOLOGY REPORTon 05-17-2021 Surgical Pathology [...] Specimen A: GASTRIC REMNANT Gross Description FINA WALKER, GASTRIC REMNANT 17.0 x 4.5 x 2.5 [...] x 0.5 cm piece of adipose tissue. Regular Senior Care Provider sections 1cs. tm Microscopic Description 1 H&E reviewed. Microscopic examination performed. SURGICAL PATHOLOGY CONSULTATION Patient Name: FINA WALKER [facility] Rec: [id number] Path Number: [id number] [facility] ANATOMIC PATHOLOGY [address] [place] [address]. [place], [place] [address] [facility] Basic Metabolic Panelon 04-0 Anion gap [Moles/Vol] 10 mmol/L 9 - 17 mmol/L [facility] Calcium [Mass/Vol] 8.7 mg/dL 8.6 - 10. 4 mg/dL [facility] Chloride [Moles/Vol] 105 mmol/L 98 - 107 mmol/L [facility] CO2 [Moles/Vol] 23 mmol/L 20 - 31 mmol/L [facility] Creatinine [Mass/Vol] 0.75 mg/dL 0.50 - 0.90 mg/dL [facility] GFR >60 >60 mL/min [facility] GFR Non- >60 >60 mL/min [facility] GFR/1.73 sq M.predicted MDRD (S/P/Bld) [Vol rate/Area] [facility] Comment on above: Average GFR for 20-2 9 years old: 116 mL/min/1.73sq m Chronic Kidney Disease: <60 mL/min/1.73sq m Kidney failure: <15 mL/min/1.73sq m eGFR calculated using average adult body mass. Additional eGFR calculator available at: http://www.[employer]/multiple_crcl_2011.htm Glucose [Mass/Vol] 132 mg/dL High 70 - 99 mg/dL [facility] Interpretation and review of laboratory results Abnormal [facility] Potassium [Moles/Vol] 3.5 mmol/L Low 3.7 - 5.3 mmol/L [facility] Sodium [Moles/Vol] 138 mmol/L 135 - 144 mmol/L [facility] Urea nitrogen (BldV) [Mass/Vol] 10 mg/dL 6 - 20 mg/dL [facility] CBC without Diffon 2 Hematocrit (Bld) [Volume fraction] 38.8 % 36.3 - 47.1 % [facility] Hemoglobin.gastroin testinal spec 1 Ql (Stl) 12.6 g/dL 11.9 - 15.1 g/dL [facility] Interpretation and review of laboratory results Abnormal [facility] MCH (RBC) [Entitic mass] 27.2 pg 25.2 - 33.5 pg [facility] MCHC (RBC) [Mass/Vol] 32.5 g/dL 28.4 - 34.8 g/dL [facility] MCV (RBC) [Entitic vol] 83.8 fL 82.6 - 102.9 fL [facility] NRBC Automated 0.0 0.0 per 100 WBC [facility] Platelet distribution width (Bld) [Ratio] 13.9 % 11.8 - 14.4 % [facility] Platelet mean volume (Bld) [Entitic vol] 9.8 fL 8.1 - 13.5 fL [facility] Platelets (Bld) [#/Vol] 340 10*3/uL [facility] RBC (Bld) [#/Vol] 4.63 10*6/uL 3.95 - 5.1 1 m/uL [facility] WBC (Bld) [#/Vol] 15.0 10*3/uL High [facility] POC Glucose Fingerstickon Glucose [Mass/Vol] 77 mg/dL 65 - 105 mg/dL [facility] POCT urine pregnancyon 05-16 Beta HCG ( test) Ql (U) Negative NEGATIVE [facility] Comment on above: Specimens with hCG l evels near the threshold of the test (25 mIU/mL) may give a negative or indeterminate result. In such cases, another test should be performed with a new specimen in 48-72 hours. If early is suspected clinically in this setting, correlation with quantitative serum b-hCG level is suggested. [facility] [id number] 05-15-2021 SARS-CoV-2 (COVID-19) RNA BECCA+probe Ql (Unsp spec) Normal [facility] Comment on above: Performed By: #### C OVID #### [facility] [address] [place] [address] Performance Specialist: Anthony Aguilar MD [facility] [address] [place] [address] Performance Specialist: Jameel Lawler MD SARS-CoV-2 (COVID-19) RNA BECCA+probe Ql (Unsp spec) Not detected Normal [facility] [place] [facility] Comment on above: Result Comment: The specimen is NEGATIVE for SARS-CoV-2, the novel coronavirus associated with COVID-19. A negative result does not rule out COVID-19. Lucrecia SARS-CoV-2 for use on the [employer] is a real-time RT-PCR test intended [...] this assay. Fact sheet for Healthcare Providers: https://www.fda.gov/media/303088/download Fact sheet for Patients: https://www.fda.gov/media/750801/download METHODOLOGY: RT-PCR Performed By: #### C OVID #### [address] [id number] Performance Specialist: Anthony Aguilar MD [facility] [address] [place] [address] Performance Specialist: Jameel Lawler MD [id number] 05-14-2021 SARS-CoV-2 (COVID-19) RNA BECCA+probe Ql (Unsp spec) .NASOPHARYNGEAL SWAB Normal [facility] Comment on above: Performed By: #### C OVID #### [address] [id number] Performance Specialist: Anthony Aguilar MD [facility] [address] [place] [address] Performance Specialist: Jameel Lawler MD Nicotine, Blood 05-05-2021 7-QS-Scacngtu <2 ng/mL [facility] Cotinine <2 ng/mL [facility] Nicotine <2 ng/mL [facility] Comment on above: (NOTE) Consistent with [...] developed and its performance characteristics determined by [employer]. It has not been cleared or approved by the US Food and Drug Administration. This test was performed in a CLIA certified laboratory and is intended for clinical purposes. Performed By: [facility] [address] [place] [id number] Insurance Claim Representative: Yara Rodriguez MD [employer] EKG 12 LeadOrdered By: Diaz Conway on 05-03-2021 Atrial Rate 72 BPM [employer] Work Phone: P [place] 45 degrees [employer] Phone: P-R Interval 142 ms [employer] Phone: Q-T Interval 376 ms [employer] Phone: QRS Duration 100 ms [employer] Phone: QTc Calculation (Bazett) 411 ms [employer] Phone: R [place] 22 degrees [employer] Phone: T [place] 32 degrees [employer] Phone: Ventricular Rate 72 BPM [employer] Work Phone: [employer] Phone: EKG 12 Leadon 05-03-2021 Normal sinus rhythm Normal ECG No previous ECGs available [facility] Diaz Elias MD - 05/03/2021 Normal sinus rhythm Normal ECG No previous ECGs available [employer] Phone: APTTon 05-02-2021 aPTT Coag (Bld) [Time] 25.0 s [facility] Comment on above: IV Heparin Therapy Range: 48.6-77.8 Basic Metabolic Panelon 04-11 Anion gap [Moles/Vol] 15 mmol/L 9 - 17 mmol/L [facility] Calcium [Mass/Vol] 9.8 mg/dL 8.6 - 10. 4 mg/dL [facility] Chloride [Moles/Vol] 102 mmol/L 98 - 107 mmol/L [facility] CO2 [Moles/Vol] 21 mmol/L 20 - 31 mmol/L [facility] Creatinine [Mass/Vol] 0.55 mg/dL 0.50 - 0.90 mg/dL [facility] GFR >60 >60 mL/min [facility] GFR Non- >60 >60 mL/min [facility] GFR/1.73 sq M.predicted MDRD (S/P/Bld) [Vol rate/Area] [facility] Comment on above: Average GFR for 20-2 9 years old: 116 mL/min/1.73sq m Chronic Kidney Disease: <60 mL/min/1.73sq m Kidney failure: <15 mL/min/1.73sq m eGFR calculated using average adult body mass. Additional eGFR calculator available at: http://www.[employer]/multiple_crcl_2011.htm Glucose [Mass/Vol] 85 mg/dL 70 - 99 mg/dL [facility] Potassium [Moles/Vol] 4.5 mmol/L 3.7 - 5.3 mmol/L [facility] Sodium [Moles/Vol] 138 mmol/L 135 - 144 mmol/L [facility] Urea nitrogen (BldV) [Mass/Vol] 11 mg/dL 6 - 20 mg/dL [facility] CBCon 05-02-2021 Hematocrit (Bld) [Volume fraction] 41.0 % 36.3 - 47.1 % [facility] Hemoglobin.gastroin testinal spec 1 Ql (Stl) 12.9 g/dL 11.9 - 15.1 g/dL [facility] MCH (RBC) [Entitic mass] 26.9 pg 25.2 - 33.5 pg [facility] MCHC (RBC) [Mass/Vol] 31.5 g/dL 28.4 - 34.8 g/dL [facility] MCV (RBC) [Entitic vol] 85.6 fL 82.6 - 102.9 fL [facility] NRBC Automated 0.0 0.0 per 100 WBC [facility] Platelet distribution width (Bld) [Ratio] 13.7 % 11.8 - 14.4 % [facility] Platelet mean volume (Bld) [Entitic vol] 9.8 fL 8.1 - 13.5 fL [facility] Platelets (Bld) [#/Vol] 380 10*3/uL [facility] RBC (Bld) [#/Vol] 4.79 10*6/uL 3.95 - 5.1 1 m/uL [facility] WBC (Bld) [#/Vol] 11.2 10*3/uL [facility] No Panel Informationon 05-02 D[facility]de [facility] Protime-INRon 05-02-2021 INR Coag (Bld) [Relative time] 1.0 {INR} [facility] Comment on above: Therapeutic Range: Moderate Anticoagulant Intensity: INR = 2.0-3.0 High Anticoagulant Intensity: INR = 2.5-3.5 PT Coag (PPP) [Time] 10.6 s [employer] XR CHEST (2 VW)on 05-02-2021 No acute process. [facility] EXAMINATION: TWO XRAY VIEWS OF THE CHEST 05/02/2021 11:20 am COMPARISON: None. HISTORY: ORDERING SYSTEM PROVIDED HISTORY: preop, obesity TECHNOLOGIST PROVIDED HISTORY: preop, obesity FINDINGS: Heart is normal in size. Lungs are clear. No free air. [facility] Jose Juan Florez Jr. , DO - 05/02/2021 EXAMINATION: TWO XRAY VIEWS OF THE CHEST 05/02/2021 11:20 am COMPARISON: None. HISTORY: ORDERING SYSTEM PROVIDED HISTORY: preop, obesity TECHNOLOGIST PROVIDED HISTORY: preop, obesity FINDINGS: Heart is normal in size. Lungs are clear. No free air. IMPRESSION: No acute process. [employer] Work Phone: Radiology Study observation (narrative) [employer] Work Phone: XR CHEST (2 VW)Ordered By: Santos arndt Migchayito on 05-02-2021 [facility] Work Phone: [id number] 12-05-2020 SARS-CoV-2 (COVID-19) RNA BECCA+probe Ql (Unsp spec) Normal [facility] Comment on above: Performed By: #### C OVID #### [facility] [address] [place], [place] [id number] Performance Specialist: Anthony Aguilar MD [address] [place] [address] Performance Specialist: Jameel Lawler MD SARS-CoV-2 (COVID-19) RNA BECCA+probe Ql (Unsp spec) Not detected Normal NOTDET [facility] Comment on above: Result Comment: The specimen is NEGATIVE for SARS-CoV-2, the novel coronavirus associated with COVID-19. A negative result does not rule out COVID-19. Lucrecia SARS-CoV-2 for use on the [employer]/8800 [employer] is a real-time RT-PCR test intended [...] this assay. Fact sheet for Healthcare Providers: https://www.fda.gov/media/117871/download Fact sheet for Patients: https://www.fda.gov/media/586663/download METHODOLOGY: RT-PCR Performed By: #### C OVID #### [facility] [address] [place], [place] [id number] Performance Specialist: Anthony Aguilar MD [facility] [address] [place] [address] [place] [address] Performance Specialist: Jameel Lawler MD [id number] 12-04-2020 SARS-CoV-2 (COVID-19) RNA BECCA+probe Ql (Unsp spec) .NASOPHARYNGEAL SWAB Normal [facility] Comment on above: Performed By: #### C OVID #### [facility] [address] [place], [place] [id number] Performance Specialist: Anthony Aguilar MD [facility] [address] [place] [address] Performance Specialist: Jameel Lawler MD Vital Signs Date Time Vital Sign Value Performing Clinician Facility 03-19-2023 11:06-0500 Body mass index (BMI) [Ratio] 36.34 kg/m2 Eloise BURROUGHS Work Phone: [facility] 03-19-2023 11:06-0500 Body weight 105.23 kg Eloise BURROUGHS Work Phone: [facility] 03-19-2023 11:06-0500 Diastolic blood pressure 78 mm[Hg] Eloise BURROUGHS Work Phone: [facility] 03-19-2023 11:06-0500 Systolic blood pressure 124 mm[Hg] Eloise BURROUGHS Work Phone: [facility] 03-05-2023 10:48-0500 Body mass index (BMI) [Ratio] 35.08 kg/m2 Karoline Hopson MD Work Phone: [facility] 03-05-2023 10:48-0500 Body weight 101.61 kg Karoline Hopson MD Work Phone: [facility] 03-05-2023 10:48-0500 Diastolic blood pressure 75 mm[Hg] Karoline Hopson MD Work Phone: [facility] 03-05-2023 10:48-0500 Heart rate 89 /min Karoline Hopson MD Work Phone: [facility] 03-05-2023 10:48-0500 Systolic blood pressure 126 mm[Hg] Karoline Hopson MD Work Phone: [employer] 02-07-2023 13:34-0500 Body height 170.2 cm Tatiana Yap MD Work Phone: [employer] 02-07-2023 13:34-0500 Body mass index (BMI) [Ratio] 34.14 kg/m2 Tatiana Yap MD Work Phone: [employer] 02-07-2023 13:34-0500 Body weight 98.88 kg Tatiana Yap MD Work Phone: [employer] 02-07-2023 13:34-0500 Diastolic blood pressure 83 mm[Hg] Tatiana Yap MD Work Phone: [employer] 02-07-2023 13:34-0500 Heart rate 76 /min Tatiana Yap MD Work Phone: [employer] 02-07-2023 13:34-0500 Systolic blood pressure 126 mm[Hg] Tatiana Yap MD Work Phone: [employer] 10-12-2022 10:10-0400 Body height 170.18 cm Lilia Daugherty Other [employer] Other 10-12-2022 10:10-0400 Body mass index (BMI) [Ratio] 32.86 kg/m2 Lilia Daugherty Other [employer] Other 10-12-2022 10:10-0400 Body temperature 99 [degF] Lilia Daugherty Other [employer] Other 10-12-2022 10:10-0400 Body weight 95.17 kg Lilia Daugherty Other [employer] Other 10-12-2022 10:10-0400 Diastolic blood pressure 74 mm[Hg] Lilia Daugherty Other [employer] Other 10-12-2022 10:10-0400 SaO2% (BldA) [Mass fraction] 98 % Lilia Daugherty Other [employer] Other 10-12-2022 10:10-0400 Systolic blood pressure 118 mm[Hg] Lilia Daugherty Other [employer] Other 05-17-2021 15:52-0400 Body temperature 98.49 [degF] Patricia [employer] Work Phone: [employer] 05-17-2021 15:52-0400 Diastolic blood pressure 97 mm[Hg] [employer] Work Phone: [employer] 05-17-2021 15:52-0400 Heart rate 70 /min Patricia [employer] Work Phone: [employer] 05-17-2021 15:52-0400 Respiratory rate 18 /min Patricia [employer] Work Phone: [employer] 05-17-2021 15:52-0400 SaO2% (BldA) [Mass fraction] 99 % Patricia [employer] Work Phone: [employer] 05-17-2021 15:52-0400 Systolic blood pressure 138 mm[Hg] Patricia [employer] Work Phone: [employer] 05-16-2021 06:06-0400 Body mass index (BMI) [Ratio] 43.16 kg/m2 Patricia [employer] Work Phone: [employer] 05-16-2021 06:06-0400 Body weight 125 kg Patricia [employer] Work Phone: [employer] 05-16-2021 05:57-0400 Body height 170.2 cm Ptaricia [employer] Work Phone: [employer] 05-02-2021 10:35-0400 Body height 170.2 cm Stvz 1 [employer] 05-02-2021 10:35-0400 Body mass index (BMI) [Ratio] 44.95 kg/m2 Stvz 1 [employer] 05-02-2021 10:35-0400 Body temperature 97.2 [degF] [facility] 05-02-2021 10:35-0400 Body weight 130.18 kg Stvz 1 [employer] 05-02-2021 10:35-0400 Diastolic blood pressure 85 mm[Hg] [facility] 05-02-2021 10:35-0400 Heart rate 66 /min [facility] 05-02-2021 10:35-0400 Respiratory rate 18 /min [facility] 05-02-2021 10:35-0400 SaO2% (BldA) [Mass fraction] 99 % [facility] 05-02-2021 10:35-0400 Systolic blood pressure 122 mm[Hg] Stvz 1 [employer] 12-04-2020 17:00-0400 Body height 170.18 cm Ale Ginty Other [employer] Other 12-04-2020 17:00-0400 Body mass index (BMI) [Ratio] 43.85 kg/m2 Ale Ginty Other [employer] Other 12-04-2020 17:00-0400 Body temperature 97.4 [degF] Ale Ginty Other [employer] Other 12-04-2020 17:00-0400 Body weight 127.01 kg Ale Ginty Other [employer] Other 12-04-2020 17:00-0400 SaO2% (BldA) [Mass fraction] 99 % Ale Ginty Other [employer] Other Encounters Encounter Date Encounter Type Care Provider Facility Start: 03-24-2023 Clinisync Result Encounter Nigel Zacarias DO Work Phone: [facility] External Department Unsolicited Start: 03-24-2023 Clinisync Result Encounter Nigel Higginso DO Work Phone: [facility] External Department Unsolicited Start: 03-19-2023 End: 03-19-2023 ambulatory ELOISE BURNS Not Available Start: 03-19-2023 End: 03-19-2023 Office outpatient visit 15 minutes Eloise Burns PA Work Phone: [facility] Comment on above: Second trimester pre gnancy; Diabetes mellitus screening Start: 03-05-2023 End: 03-06-2023 Orders Only Laila Castillo RN Maternal- Medic ine at [facility] Comment on above: Hypertension affecti ng in second trimester (Primary Dx); Dichorionic diamniotic twin in second trimester Start: 03-05-2023 End: 03-05-2023 Office outpatient visit 15 minutes Karoline Hopson MD Work Phone: Maternal- Medicine at [facility] Comment on above: History of sleeve ga strectomy (Primary Dx); History of induced hypertension Start: 02-27-2023 Orders Only Sivan Martinez RN Ma ternal- Medicine at [facility] Comment on above: Hypertension affecti ng in second trimester; 16 weeks gestation of ; Dichorionic diamniotic twin in second trimester Start: 02-26-2023 End: 02-26-2023 ambulatory NIGEL HIGGINSO Not Available Start: 02-24-2023 Telephone encounter Sangita Thomas RN [facility] [place] Start: 02-07-2023 End: 02-07-2023 ambulatory [facility] Start: 02-07-2023 End: 02-07-2023 Office consultation new/estab patient 60 min Tatiana Yap MD Work Phone: [facility] [place] Comment on above: Hypertension affecti ng in second trimester (Primary Dx); 16 weeks gestation of ; Dichorionic diamniotic twin in second trimester; H/O gastric sleeve Start: 02-05-2023 End: 02-05-2023 ambulatory NIGEL ZACARIAS Not Available Start: 02-05-2023 Chart abstracting Tatiana Yap MD Work Phone: [facility] [place] Start: 02-04-2023 End: 02-04-2023 ambulatory MARGOT G YAW Not Available Start: 01-15-2023 End: 01-15-2023 ambulatory NIGEL ZACARIAS Not Available Start: 01-07-2023 End: 01-07-2023 ambulatory MARGOT G YAW Not Available Start: 12-20-2022 End: 12-21-2022 ambulatory NIGEL ZACARIAS Not Available Start: 10-12-2022 End: 10-12-2022 ambulatory Lilia Daugherty Other [employer] Other Start: 10-12-2022 Office outpatient vi sit 15 minutes Lilia Daugherty [facility] Start: 09-11-2022 End: 09-11-2022 ambulatory PATRICIA Rucker [facility] Start: 02-10-2022 End: 02-10-2022 ambulatory Ale Shields Other [employer] Other Start: 02-10-2022 Telephone encounter Ale Shields [facility] [address] Start: 02-08-2022 End: 02-08-2022 ambulatory Ale Shields Facility:[facility] Start: 02-08-2022 End: 02-08-2022 ambulatory LAURA Shields Work Phone: [facility] Work Phone: Start: 02-08-2022 End: 02-08-2022 Departed Referred LAURA Shields Work Phone: [facility] [place] Work Phone: Start: 01-08-2022 End: 01-09-[address] JAMEEL ABEBE Facility:[facility] Start: 12-31-2021 End: 01-01-[address] JAMEEL ABEBE Facility:[facility] Start: 11-28-2021 End: 11-28-2021 ambulatory None Provider Facility:[facility] Start: 11-28-2021 End: 11-29-[address] JAMEEL ABEBE Facility:[facility] Start: 11-22-2021 End: 11-23-2021 ambulatory NONE LISTED REQUEST Facility:[facility] Start: 10-17-2021 End: 10-18-2021 ambulatory NONE LISTED REQUEST Facility:[facility] Start: 08-03-2021 End: 08-04-[address] JAMEEL ABEBE Facility:[facility] Start: 05-16-2021 End: 05-17-2021 Evaluation and management of inpatient Patricia Mars DO Work Phone: [facility] Comment on above: Post-op pain (Primar y Dx) Start: 05-14-2021 End: 05-19-2021 ambulatory CYN OKEEFE [facility] Start: 05-02-2021 End: 05-06-2021 Subsequent hospital visit by physician Dwight Pat Rm 1 [facility] Pre-Admit Testing Start: 12-04-2020 End: 12-09-2020 ambulatory CYN OKEEFE [facility] Start: 12-04-2020 Office outpatient vi sit 15 minutes Ale Kimberly [facility] Start: 10-20-2020 End: 10-20-2020 Subsequent hospital visit by physician Patricia Mars DO Work Phone: [facility] [place] Start: 09-06-2020 End: 09-07-2020 ambulatory IKE ANGEL [facility] Start: 09-06-2020 End: 09-06-2020 Subsequent hospital visit by physician Henrietta [facility] 1 [facility] Comment on above: LYNN (obstructive sle ep apnea) Start: 05-28-2017 End: 05-29-2017 Ambulatory Neo Celestechu Facility:[id number] Procedures Date Procedure Procedure Detail Performing Clinician Start: 03-24-2023 [facility] UA (CLEAN/CATCH) DIRECTOR OF OUTREACH/MICRO IF IND. Nigel Zacarias DO Work Phone: Start: 03-19-2023 Urnls dip stick/tabl et rgnt non-auto w/o micrscp Eloise Burns PA Work Phone: Start: 02-12-2023 Blood count complete [...] metabolic pane l calcium total [employer] Work Phone: Start: 05-16-2021 SURGICAL PATHOLOGY REPORT Patricia Alka [employer] Work Phone: Start: 05-16-2021 Basic metabolic pane l calcium total Patricia [employer] Work Phone: Start: 05-16-2021 End: 05-16-2021 Laps gstrc rstrictiv px longitudinal gastrectomy Patricia Alka Antoinette DO Work Phone: Start: 05-16-2021 Glucose blood reagen t strip Patricia Rucker [employer] Work Phone: Start: 05-16-2021 Urine test visual color cmprsn meths Patricia Alka [employer] Work Phone: Start: 05-02-2021 Assay of nicotine Sim Rucker BeckonCall DO Work Phone: Start: 05-02-2021 Basic metabolic pane l calcium total Patricia Mars DO Work Phone: Start: 05-02-2021 Radiologic exam ches t 2 views Patricia Mars DO Work Phone: Start: 05-02-2021 Ecg routine ecg w/le ast 12 lds i&r only Patricia Mars DO Work Phone: Start: 06-14-2020 Microscopic observat ion [Identifier] in Cervix by Cyto stain Tatiana Yap MD Work Phone: Plan of Treatment Date Care Activity Detail Author Start: 03-05-2024 Adult BMI Screening Adult BMI Screen ing [facility] Start: 03-05-2024 Tobacco Screening Tobacco Screening [facility] Start: 03-05-2024 End: 03-05-2024 US MFM with or without consult US MFM with or without consult Imaging Routine Hypertension affecting in second trimester Dichorionic diamniotic twin in second trimester Expected: 03/05/2024 (Approximate), Expires: 03/05/2024 [facility] Work Phone: Comment on above: Expected: 03/05/2024 (Approximate), Expires: 03/05/2024 Start: 02-08-2024 Adult BMI Screening Adult BMI Screen ing [facility] Start: 02-08-2024 Tobacco Screening Tobacco Screening [facility] Start: 01-04-2024 Adult BMI Screening Adult BMI Screen ing [facility] Start: 01-04-2024 Tobacco Screening Tobacco Screening [facility] Start: 08-11-2023 DTaP,Tdap and Td Vaccines (7 - Td or Tdap) DTaP,Tdap and Td Vaccines (7 - Td or Tdap) [facility] Start: 08-11-2023 DTaP/Tdap/Td vaccine (7 - Td or Tdap) DTaP/Tdap/Td vaccine (7 - Td or Tdap) [facility] Start: 08-10-2023 Influenza vaccination Influenza Vacc ine (#1) [facility] Comment on above: Postponed from 10/11 (Patient Refused) Start: 06-15-2023 Screening for malign ant neoplasm of cervix Pap Smear [facility] Start: 04-10-2023 End: 04-10-2023 Patient encounter procedure Maternal Medicine Elizabeth Garcia Start: 03-19-2023 End: 03-19-2024 CBC panel - Blood by Automated count CBC Lab Routine Diabetes mellitus screening Expected: 03/19/2023 (Approximate), Expires: 03/19/2024 [facility] Work Phone: Comment on above: Expected: 03/19/2023 (Approximate), Expires: 03/19/2024 Start: 03-19-2023 End: 03-19-2024 Measurement of glucose 1 hour after glucose challenge for glucose tolerance test Glucose tolerance, 1 hour Lab Routine Diabetes mellitus screening Expected: 03/19/2023 (Approximate), Expires: 03/19/2024 [facility] Comment on above: Expected: 03/19/2023 (Approximate), Expires: 03/19/2024 Start: 03-05-2023 End: 03-05-2023 Patient encounter procedure 03/05/2023 11:30 AM EST Office Visit Maternal- Medicine at [facility] [address] [place] [phone] Karoline Hopson MD [address], [address] [place] [address] Maternal- Medicine at [facility] Start: 03-05-2023 End: 03-05-2023 Patient encounter procedure 03/05/2023 9:30 AM EST Appointment [facility] [address] [place] [phone] [facility] Start: 02-07-2023 End: 02-07-2023 Patient encounter procedure [facility] [place] Start: 10-11-2022 Influenza vaccination Influenza Vacc ine [facility] Start: 09-19-2022 Adult BMI Follow Up Plan Adult BMI Follow Up Plan [facility] Start: 02-08-2022 Bacteria identified in Urine by Culture Urine Culture [facility] Start: 01-08-2022 Hemoglobin A1c measurement A1C test (Diabetic or Prediabetic) [facility] Start: 10-11-2021 Influenza vaccination Flu vacc ine (Season Ended) [facility] Start: 07-14-2021 Hemoglobin A1c measurement A1C test (Diabetic or Prediabetic) [facility] Work Phone: Start: 06-18-2021 End: 06-18-2021 Patient encounter procedure 06/18/2021 Office Visit Bariatrics Deann Navarro, CAT OPERATOR - ADMINISTRATIVE PROFESSIONAL [address] [place] [phone] [facility] Start: 05-24-2021 End: 05-24-2021 Patient encounter procedure 05/24/2021 Office Visit Patricia Islas DO [address] [place] [phone] [facility] Invasive Bariatric Surg Start: 05-16-2021 End: 05-16-2021 Admission to same day surgery center 05/16/2021 Surgery IP Unit Patricia Mars DO [address] [place] [phone] XI ROBOTIC LAPAROSCOPIC GASTRECTOMY SLEEVE , LIVER BIOPSY, EGD- GI SCHEDULED [facility] Comment on above: XI ROBOTIC LAPAROSCO PIC GASTRECTOMY SLEEVE , LIVER BIOPSY, EGD- GI SCHEDULED Start: 05-16-2021 End: 05-16-2021 Laps gstrc rstrictiv px longitudinal gastrectomy GASTRECTOMY SLEEVE LAPAROSCOPIC ROBOTIC MORBID OBESITY, OBSTRUCTIVE SLEEP APNEA, GERD 05/16/2021 7:10 AM EDT [facility] Start: 05-16-2021 Subsequent hospital visit by physician 05/16/2021 Hospital Encounter IP Unit Patricia Mars DO [address] [place] [address] [facility] Start: 05-13-2021 End: 05-13-2021 Patient encounter procedure 05/13/2021 Appointment Pre-Admission Testing [facility] PRE ADMIT Start: 05-10-2021 End: 05-10-2021 Patient encounter procedure 05/10/2021 Office Visit BariatricPatricia Leary DO [address] [facility] [address] [place] [phone] [facility] Invasive Bariatric Surg Start: 11-22-2020 End: 11-22-2020 Nursing evaluation of patient and report 11/22/2020 [facility] Start: 11-06-2020 End: 11-06-2020 Patient encounter procedure [facility] Start: 11-03-2020 End: 11-03-2020 Patient encounter procedure 11/03/2020 Office Visit BariatricDeann Roca, CAT OPERATOR - ADMINISTRATIVE PROFESSIONAL [address] [facility] [facility] [place] [phone] [facility] [place] Start: 10-11-2020 Influenza vaccination Flu vaccine (# 1) [facility] Start: 09-28-2020 End: 09-28-2020 Patient encounter procedure 09/28/2020 Office Visit Deann Brothers, CAT OPERATOR - ADMINISTRATIVE PROFESSIONAL [address] [facility] [address] [place] [phone] [facility] Start: 09-01-2015 Screening for malign ant neoplasm of cervix [facility] Start: 2009 HIV screening HIV screen [facility] Start: 2006 COVID-19 Vaccine (1) COVID-19 Vaccin e (1) [facility] Work Phone: Start: 2006 Depression Screen Depression Screen [facility] Start: 2006 Depression Screening Depression Scre [facility] Start: 2005 HPV vaccine (1 - 2-d ose series) HPV vaccine (1 - 2-dose series) [facility] Start: 2000 Pneumococcal 0-64 ye ars Vaccine (1 of 2 - PPSV23) Pneumococcal 0-64 years Vaccine (1 of 2 - PPSV23) [employer] Phone: Start: 09-01-1999 COVID-19 Vaccine (1) COVID-19 Vaccin e (1) [facility] Start: 09-01-1995 Varicella vaccine (1 of 2 - 2-dose childhood series) Varicella vaccine (1 of 2 - 2-dose childhood series) [facility] Start: 1994 Hepatitis C screening Hepatitis C sc reen [facility] End: 09-06-2020 Baseline Diagnostic Sleep Study Baseline Diagnostic Sleep Study Sleep Center Routine LYNN (obstructive sleep apnea) 1 Occurrences starting 09/06/2020 until 09/06/2020 [employer] Phone: Comment on above: 1 Occurrences starti ng 09/06/2020 until 09/06/2020 End: 02-08-2024 Calcium [Mass/volume] in Serum or Plasma Calcium Lab Routine 16 weeks gestation of H/O gastric sleeve 1 Occurrences starting 02/07/2023 until 02/08/2024 [facility] Comment on above: 1 Occurrences starti ng 02/07/2023 until 02/08/2024 End: 02-08-2024 CBC panel - Blood by Automated count CBC without diff Lab Routine Hypertension affecting in second trimester 16 weeks gestation of Dichorionic diamniotic twin in second trimester 1 Occurrences starting 02/07/2023 until 02/08/2024 [employer] Work Phone: Comment on above: 1 Occurrences starti ng 02/07/2023 until 02/08/2024 End: 02-08-2024 Comprehensive metabolic 2000 panel - Serum or Plasma Comprehensive metabolic panel Lab Routine Hypertension affecting in second trimester 16 weeks gestation of Dichorionic diamniotic twin in second trimester 1 Occurrences starting 02/07/2023 until 02/08/2024 [facility] Comment on above: 1 Occurrences starti ng 02/07/2023 until 02/08/2024 Continuous pulse oximetry Pulse oximetry, continuous Respiratory Care Routine Every 4hr until discontinued starting 05/16/2021 [employer] Phone: Comment on above: Every 4hr until disc ontinued starting 05/16/2021 End: 02-08-2024 Cyanocobalamin vitamin b-12 Vitamin B12 Lab Routine 16 weeks gestation of H/O gastric sleeve 1 Occurrences starting 02/07/2023 until 02/08/2024 [facility] Comment on above: 1 Occurrences starti ng 02/07/2023 until 02/08/2024 End: 02-08-2024 ECG 12 lead ECG 12 lead ECG Routine Hypertension affecting in second trimester 16 weeks gestation of Dichorionic diamniotic twin in second trimester 1 Occurrences starting 02/07/2023 until 02/08/2024 [facility] Comment on above: 1 Occurrences starti ng 02/07/2023 until 02/08/2024 End: 02-08-2024 Folate Folate Lab Routine 16 weeks gestation of H/O gastric sleeve 1 Occurrences starting 02/07/2023 until 02/08/2024 [facility] Comment on above: 1 Occurrences starti ng 02/07/2023 until 02/08/2024 End: 02-08-2024 Iron and TIBC Iron and TIBC Lab Routine 16 weeks gestation of H/O gastric sleeve 1 Occurrences starting 02/07/2023 until 02/08/2024 [facility] Comment on above: 1 Occurrences starti ng 02/07/2023 until 02/08/2024 End: 02-08-2024 LDH LDH Lab Routine Hypertension affecting in second trimester 16 weeks gestation of Dichorionic diamniotic twin in second trimester 1 Occurrences starting 02/07/2023 until 02/08/2024 [facility] Comment on above: 1 Occurrences starti ng 02/07/2023 until 02/08/2024 End: 02-08-2024 Natriuretic peptide B [Mass/volume] in Blood B-type natriuretic peptide Lab Routine Hypertension affecting in second trimester 16 weeks gestation of Dichorionic diamniotic twin in second trimester 1 Occurrences starting 02/07/2023 until 02/08/2024 [facility] Comment on above: 1 Occurrences starti ng 02/07/2023 until 02/08/2024 Oxygen therapy [[facility] Data Set] Initiate Oxygen Therapy Protocol Respiratory Care Routine As Needed until discontinued starting 05/16/2021 [employer] Phone: Comment on above: As Needed until disc ontinued starting 05/16/2021 End: 02-08-2024 Protein creat ratio Protein creat ratio Lab Routine Hypertension affecting in second trimester 16 weeks gestation of Dichorionic diamniotic twin in second trimester 1 Occurrences starting 02/07/2023 until 02/08/2024 [facility] Comment on above: 1 Occurrences starti ng 02/07/2023 until 02/08/2024 End: 02-08-2024 Protein, urine, 24 hour Protein, urine, 24 hour Lab Routine Hypertension affecting in second trimester 16 weeks gestation of Dichorionic diamniotic twin in second trimester 1 Occurrences starting 02/07/2023 until 02/08/2024 [employer] Comment on above: 1 Occurrences starti ng 02/07/2023 until 02/08/2024 Spirometry panel Incentive isiah metry Respiratory Care Routine Every 2hr while awake until discontinued starting 05/16/2021 [employer] Phone: Comment on above: Every 2hr while awak e until discontinued starting 05/16/2021 Surgical Pathology Surgical Path ology Lab Routine Release Upon Ordering for 1 Occurrences starting 05/16/2021 [employer] Phone: Comment on above: Release Upon Orderin g for 1 Occurrences starting 05/16/2021 End: 02-08-2024 Thiamin Vitamin B1, whole blood Thiamin Vitamin B1, whole blood Lab Routine 16 weeks gestation of H/O gastric sleeve 1 Occurrences starting 02/07/2023 until 02/08/2024 [facility] Comment on above: 1 Occurrences starti ng 02/07/2023 until 02/08/2024 End: 02-08-2024 Urate [Mass/volume] in Serum or Plasma Uric acid Lab Routine Hypertension affecting in second trimester 16 weeks gestation of Dichorionic diamniotic twin in second trimester 1 Occurrences starting 02/07/2023 until 02/08/2024 [facility] Comment on above: 1 Occurrences starti ng 02/07/2023 until 02/08/2024 End: 02-08-2024 Vitamin D 25 hydroxy Vitamin D 25 hydroxy Lab Routine 16 weeks gestation of H/O gastric sleeve 1 Occurrences starting 02/07/2023 until 02/08/2024 [facility] Comment on above: 1 Occurrences starti ng 02/07/2023 until 02/08/2024 Immunizations Immunization Date Immunization Notes Care Provider Jerry luther 11-12-2016 tuberculin skin test ; purified protein derivative solution, intradermal Tatiana Yap MD Work Phone: [facility] 08-10-2013 tetanus toxoid, redu yemi diphtheria toxoid, and acellular pertussis vaccine, adsorbed Tatiana Yap MD Work Phone: [facility] 10-03-1999 diphtheria, tetanus toxoids and acellular pertussis vaccine Tatiana Yap MD Work Phone: [facility] 10-03-1999 diphtheria, tetanus toxoids and acellular pertussis vaccine, unspecified formulation Eloise BURROUGHS Work Phone: [facility] 10-03-1999 hepatitis B vaccine, pediatric or pediatric/adolescent dosage Tatiana Yap MD Work Phone: [facility] 10-03-1999 measles, mumps and rubella virus vaccine Tatiana Yap MD Work Phone: [facility] 10-03-1999 poliovirus vaccine, inactivated Tatiana Yap MD Work Phone: [facility] 01-14-1996 diphtheria, tetanus toxoids and acellular pertussis vaccine Tatiana Yap MD Work Phone: [facility] 01-14-1996 diphtheria, tetanus toxoids and pertussis vaccine Eloise BURROUGHS Work Phone: [facility] 01-14-1996 haemophilus influenz ae type b vaccine, conjugate unspecified formulation Tatiana Yap MD Work Phone: [facility] 01-14-1996 measles, mumps and rubella virus vaccine Tatiana Yap MD Work Phone: [facility] 05-21-1995 diphtheria, tetanus toxoids and acellular pertussis vaccine Tatiana Yap MD Work Phone: [facility] 05-21-1995 DTP-Haemophilus influenzae type b conjugate vaccine Eloise BURROUGHS Work Phone: [facility] 05-21-1995 haemophilus influenz ae type b vaccine, conjugate unspecified formulation Tatiana Yap MD Work Phone: [facility] 05-21-1995 poliovirus vaccine, inactivated Tatiana Yap MD Work Phone: [facility] 05-21-1995 trivalent poliovirus vaccine, live, oral Eloise BURROUGHS Work Phone: [facility] 02-21-1995 diphtheria, tetanus toxoids and acellular pertussis vaccine Tatiana Yap MD Work Phone: [facility] 02-21-1995 DTP-Haemophilus influenzae type b conjugate vaccine Eloise BURROUGHS Work Phone: [facility] 02-21-1995 haemophilus influenz ae type b vaccine, conjugate unspecified formulation Tatiana Yap MD Work Phone: [facility] 02-21-1995 hepatitis B vaccine, pediatric or pediatric/adolescent dosage Tatiana Yap MD Work Phone: [facility] 02-21-1995 poliovirus vaccine, inactivated Tatiana Yap MD Work Phone: [facility] 02-21-1995 trivalent poliovirus vaccine, live, oral Eloise BURROUGHS Work Phone: [facility] 1994 diphtheria, tetanus toxoids and acellular pertussis vaccine Tatiana Yap MD Work Phone: [facility] 1994 DTP-Haemophilus influenzae type b conjugate vaccine Eloise BURROUGHS Work Phone: [facility] 1994 haemophilus influenz ae type b vaccine, conjugate unspecified formulation Tatiana Yap MD Work Phone: [facility] 1994 hepatitis B vaccine, pediatric or pediatric/adolescent dosage Tatiana Yap MD Work Phone: [facility] 1994 poliovirus vaccine, inactivated Tatiana Yap MD Work Phone: [facility] 1994 trivalent poliovirus vaccine, live, oral Eloise BURROUGHS Work Phone: [facility] 1994 hepatitis B vaccine, pediatric or pediatric/adolescent dosage Tatiana Yap MD Work Phone: [facility] Payers Date Payer Category Payer Medicaid [id number] 2022 Medicaid [id number] 2022 Self-pay 2019 Unknown [id number]. [id number] 1994 Unknown [id number] 2.16.840.1.727534.3.579.2. 173 1994 Unknown [id number] 2.16.840.1.849226.3.579.2. 173 1994 Unknown [id number] 2.16.840.1.136027.3.579.2. 173 1994 Unknown [id number] 2.16.840.1.653619.3.579.2. 593 1994 Unknown [id number] 2.16.840.1.779197.3.579.2. 593 1994 Unknown [id number] 2.16.840.1.161766.3.579.2. 593 1994 Unknown [id number] 2.16.840.1.108223.3.579.2. 593 1994 Unknown [id number] 2.16.840.1.716695.3.579.2. 593 1994 Unknown [id number] 2.16.840.1.167012.3.579.2. 593 1994 Unknown [id number] 2.16.840.1.416305.3.579.2. 175 1994 Unknown [id number] 2.16.840.1.382043.3.579.2. 1286 1994 Unknown [id number] 2.16.840.1.562137.3.579.2. 6 1994 Unknown [id number] 2.16.840.1.490604.3.579.2. 1286 1994 Unknown [id number] 2.16.840.1.664042.3.579.2. 1286 1994 Unknown [id number] 2.16.840.1.994033.3.579.2. 9 1994 Unknown [id number] 2.16.840.1.514254.3.579.2. 9 1994 Unknown [id number] 2.16.840.1.068581.3.579.2. 9 1994 Unknown [id number] 2.16.840.1.180929.3.579.2. 1258 1994 Unknown [id number] 2.16.840.1.537439.3.579.2. 9 1994 Unknown [id number] 2.16.840.1.516027.3.579.2. 1258 1994 Unknown [id number] 2.16.840.1.292191.3.579.2. 1259 1959 Private Health Insurance [id number] 1.2.840.069222.1.13.239.2. [id number] Private Health Insurance [facility] [id number] Unknown [id number] 2.16.840.1.280003.3.579.2. 531 Social History Date Type Detail Facility Start: 09-01-2020 End: 09-28-2020 Tobacco smoking status LAIS Current every day smoker [employer] Phone: Start: 09-01-2020 End: 07-03-2022 Cigarettes smoked current (pack per day) - Reported [facility] Start: 09-01-2020 End: 07-03-2022 Tobacco use and exposure Never used [employer] Phone: Start: 09-01-2020 End: 09-28-2020 Alcohol intake Current drinker of alcohol (finding) [employer] [facility] [employer] Phone: Start: 12-23-2019 Alcohol Comment weekly [employer] Phone: Start: 1995 Sex Assigned At Not on file [employer] Phone: Start: 04-22-2021 End: 05-16-2021 Exposure to SARS-CoV-2 (event) Not sure [facility] Exposure to SARS-CoV -2 (event) Yes [facility] Start: 01-19-2021 End: 07-03-2022 Tobacco smoking status NHIS Ex-smoker [facility] Start: 02-11-2008 End: 11-19-2020 History of tobacco use Current smoker [employer] Phone: Start: 05-02-2021 End: 02-26-2023 Alcohol intake Ex-drinker (finding) [employer] Phone: Start: 08-17-2018 End: 07-03-2022 Sex Assigned At [facility] Start: 1995 Sex Assigned At Female [facility] Start: 02-11-2008 End: 02-11-2020 History of tobacco use Cigarette Smoker [facility] History of tobacco use Tobacco U se Types Packs/Day Years Used Date Smoking Tobacco: Former Cigarettes Quit: 2020 Vaping/E-cigarettes Smokeless Tobacco: Former Quit: 11/06/2020 [facility] Start: 02-05-2023 Tobacco use and exposure Former smokeless tobacco user [facility] End: 11-06-2020 History of tobacco use User of smokeless tobacco [facility] Frequency of Communication with Friends and Family More than three times a week [facility] Start: 08-17-2018 Education 12 [facility] Start: 05-18-2022 Alcohol Comment social, every other weekend [facility] Start: 10-31-2022 [facility] Within the last year , have you [...] Comment caffeine: 1-2 cups per day coffee [facility] Healthcare Clinical Notes 12-04-2020 to 03-19-2023 HEIKE [...] Ambulatory Problems Past Medical History: Diagnosis Date COVID 2021 Herpes simplex No family history on file. [...] of: HEIKE Meeks documented in this encounter [facility] 03-05-2023 History of Presen t illness Narrative Headache/epigastric pain/blurry vision/swelling? No Cramping/contractions? No Abnormal vaginal discharge? No Spotting or vaginal bleeding? No Loss of fluid like your water may have broken? No Recent ER visits or hospitalizations? Patient reports visit to [facility] approximately two weeks ago to r/o ROM [...] you for allowing me to participate in [facility]. If there are any questions, please do not hesitate to call me. Sincerely, KAROLINE HOPSON MD documented in this encounter [facility] [employer] 02-24-2023 Miscellaneous Notes Incoming telephone call from patient with concerns of leakage of fluid. Patient called in and stated that she is Leaking clear fluid and has been. Filter Cleaner asked if she had spoken to her OB provider and she said that she had, but they told her that she is basically too early to be leaking any fluid. Filter Cleaner recommended patient present to the nearest emergency room to be evaluated. Patient verbalized understanding and had no further questions. documented in this encounter [facility] 02-24-2023 Telephone encounter Note Incoming telephone call from patient with concerns of leakage of fluid. Patient called in and stated that she is Leaking clear fluid and has been. Filter Cleaner asked if she had spoken to her OB provider and she said that she had, but they told her that she is basically too early to be leaking any fluid. Filter Cleaner recommended patient present to the nearest emergency room to be evaluated. Patient verbalized understanding and had no further questions. [facility] 02-07-2023 History of Presen t illness Narrative Headache/epigastric pain/blurry vision/swelling? Occasional headaches Cramping/contractions? No Abnormal vaginal discharge? No Spotting/vaginal bleeding? No Loss of fluid like your water may have broken? No Cats in the home? No Do you change the litter box? No Flu vaccine? No Genetic testing done this here or other office? Yes Have you been seen here at [facility] in a previous ? No Recent ER visits or hospitalizations? No Bring blood sugar log or meter with you today? (Please bring them with you for every visit at [facility]) N/A Traveled outside the country in the past 6 month No Any concerns that you would like me to mention to the provider today? No REASON FOR CONSULTATION: Twins HISTORY OF PRESENT ILLNESS: Fina Walker is a pleasant 27 y.o. at [...] TESTS AND ULTRASOUND REPORTS: Referral records and [facility] chart were reviewed Pertinent Ultrasound [...] Not Detected^Not Detected Final Comment: NOTE The emidsert Xpress SARS-CoV-2/Flu/RSV Plus test is a rapid, [...] operators who are performing tests using either [employer] or [employer] systems and is limited to laboratories that [...] repeat. Fact Sheet for Healthcare Providers: https://www.f da.gov/media/445892/download Fact Sheet for Patients: https://www.fda.gov/media/599480 /download HABITS: Patient activity no restrictions, diet [...] a but with an anticipation of excellent care home outcomes. In regards to the spontaneous [...] previously recommended threshold of 160/110. Reference: PMID: 44991219, 2021. Blood pressures do increase as progresses [...] preeclampsia prevention as is recommended by the [place] [employer] Committee Opinion No. 743. [...] used to treat chronic hypertension in : https://mothertobaby.org/fact-sh eets/labetalol/pdf/ Bariatric Surgery S/p Bariatric surgery It [...] aspirin vs 10.3% no aspirin, p=0.45) (PMBID: [id number]). Given well-established benefits baby aspirin for the prevention of preeclampsia, I recommend initiating baby aspirin even in the setting of history of Joe-en-Y surgery. Micronutrient Dosing Recommendations: Calcium: recommend 1000-1200mg daily; if deficient, recommend 1800-26361 mg PO daily in divided doses Vitamin [...] sooner if clinically indicated Follow up in [facility] in 4 weeks for anatomy and clinic follow-up DISPOSITION: At this point the patient is in complete care of her pyrometer mechanic. Patient does have ultrasound and office visit [...] procedures Referring and communicating with other health home care administrator (not separately reported) Documenting clinical information in the electronic or other health record Tatiana Yap MD Maternal- Medicine [facility] [address] [place] [address] [facility], the CDC, and other organizations representing maternal and public health professionals recommend that , , and lactating people and those considering receive the COVID-19 vaccination. Vaccination is the best method to reduce maternal and complications of SARS-CoV-2 infection. This document was created with [employer] technology. Though I make every effort to review the dictation as it is transcribed, on occasion the spoken word can be misinterpreted by the technology leading to inappropriate words, phrases, or sentences. This note is addressed to the requesting provider as a consultation for clinical guidance. Specific medical abbreviations are occasionally used and those are generally approved by the [place]?Board of?Obstetrics and?Gynecology?as well as?Maddison hodgson abbreviations. The above plan of care was based solely on the diagnoses for which a consultation was requested. ?More frequent testing may be indicated based on her other medical/obstetrical conditions. The management of other or medical conditions is beyond the scope of requested consultation and will continue to be followed by the primary pyrometer mechanic or primary care provider. Note to patient: [...] of the practitioner. documented in this encounter [facility] Evaluation note Encounter Date Diagnosis [...] take Sudafed and/or Mucinex for congestion. Take rigo-ytx-sjrpf er Robitussin or Delsym for cough. Follow-up with your family physician if no improvement in 2 to 3 days. Off work tomorrow. Oct, Cough (ICD-10 - R05.9) Oct, Bronchitis (ICD-10 - J40) Acute bronchitis material was printed [employer] Other 10-19-2022 NotePatient Education Materials [facility]s: [id number] History of Present illness Narrative* Payal Richardson [...] this [facility] Phone: [phone] 650-968404-07-2022 Hospital Discharge instructions* Instructions* Hannah Zavaleta RN - 05/17/2021 Discharge Instructions for Bariatric Surgery You had a Laparoscopic Sleeve Gastrectomy (32027) surgery to treat obesity. Recovery from this [...] scheduled appointment, please call the office at [phone]. Call Your Doctor If Any of the [...] sent through Care Everywhere. * Enoxaparin (Lovenox) (Cymro) * Video: How to Give Yourself an Anticoagulant (Blood Thinner) Shot (Cymro) documented in this [facility] Phone: [phone]) 860-594603-23-2022 Hospital Discharge instructions* Instructions* Choco KendalLAURA CNP - 05/02/2021 Pre-operative Instructions NOTHING to [...] Day of Surgery/Procedure As a patient at [facility] you can expect quality medical and nursing care that is centered on your individual needs. Our goal is to make your surgical experience as comfortableas possible Directions to the Surgery Center The surgery Center at [facility] is located in the Emergency Room parking lot on [facility] or there is additional parking across the street. The address is [address] [place] [address]. Please check in at the Surgery Center [...] on the day of surgery please contact [phone] or [phone] If you have any other questions regarding your procedure/surgery please call your surgeon's office. documented in this [facility] Phone: [phone]) 548-674103-23-2022 History of Present illness Narrative* Eloise Chi [...] syndrome) Under care of team 05/02/2021 pcp-Dr MelgozaUqfwtn-jiumhqe-iwee visit april 2021 Patient was evaluated in PAT & anesthesia guidelines were applied. NPO guidelines, medication instructions and scheduled arrival time were reviewed with patient. Anesthesia contacted: no Medical or cardiac clearance ordered: no, medical clearance obtained. LAURA Garcia CNP 05/02/21 11:53 AM documented in this encounter[facility] Phone: [phone] Evaluation note* Encounter Date Diagnosis Assessment Notes Treatment Notes Treatment Clinical Notes Nov, Contact with and (suspected) exposure to other viral communicable diseases (ICD-10 - Z20.828) Nov, Viral URI with cough (ICD-10 - J06.9) No COVID test completed at this time. Advised patient that will tx as viral URI. Supportive care as directed, increase fluids and rest, Tylenol/Motrin as directed, rx of [place] and Flonase as directed, cool mist humidifier, [...] Patient care instructions given in writting by [facility] Care At Home document [place] [employer] Other Evaluation note* Diagnosis LYNN (obstructive sleep apnea) Obstructive sleep apnea (adult) (pediatric) documented in this encounter [employer] Phone: evaluation note* Diagnosis S/P laparoscopic sleeve gastrectomy- Primary Post-op pain Other acute postoperative pain documented in this encounter [employer] Phone: evaluation noteNo assessment information available [facility] Work Phone: Evaluation noteNo InformationNort [place] Other Evaluation note* Diagnosis Hypertension affecting in second trimester- Primary 16 weeks gestation of Dichorionic diamniotic twin in second trimester H/O gastric sleeve documented in this encounter [facility]* Diagnosis Hypertension affecting in second trimester 16 weeks gestation of Dichorionic diamniotic twin in second trimester [facility]* Diagnosis Hypertension affecting in second trimester- Primary Dichorionic diamniotic twin in second trimester documented in this encounter [facility] Diagnosis History of sleeve gastrectomy- Primary History of induced hypertension documented [facility]* Diagnosis Second trimester state, incidental Diabetes mellitus screening Screening for diabetes mellitus documented in this encounter [facility] Narrative - Reported* Type Description Date Medical History METABOLIC SYNDROME Medical History SYNCOPE Medical History anxiety Surgical History WISDOM TEETH Surgical History TONSILECTOMY Surgical History ENDOSCOPY AND COLONSCOPY Surgical History C section Hospitalization History see above [employer] Other Hisrndf general Narrative - Reported* Type Description Date Medical History METABOLIC SYNDROME Medical History SYNCOPE Medical History anxiety Surgical History WISDOM TEETH Surgical History TONSILECTOMY Surgical History ENDOSCOPY AND COLONSCOPY Surgical History C section Surgical History gastric sleeve Hospitalization History see above [employer] Other Hisaivt general Narrative - Reported* Type Description Date Medical History METABOLIC SYNDROME Medical History SYNCOPE Medical History anxiety Surgical History WISDOM TEETH Surgical History TONSILECTOMY Surgical History ENDOSCOPY AND COLONSCOPY Surgical History C section Surgical History gastric sleeve Surgical History cholcystectomy 09/10/2022 Hospitalization History see above [employer] Other InstructionsNot on filedocumented in this encounter [facility] filedocumented in this [facility] on filedocumented in this encounter [facility]Not on filedocumented in this encounter [facility]Not on filedocumented in this [facility] SystemReason for visit Narrative* Auth/Cert Specialty Diagnoses / Procedures Referred By Cristal rosen Referred To Contact Diagnoses Morbid obesity (HCC) Obstructive sleep apnea GERD (gastroesophageal reflux disease) MORBID OBESITY, OBSTRUCTIVE SLEEP APNEA, GERD Procedures GA LAP, JAY RESTRICT PROC, LONGITUDINAL GASTRECTOMY XI ROBOTIC LAPAROSCOPIC GASTRECTOMY SLEEVE , LIVER BIOPSY, EGD- GI SCHEDULED Patricia Mars, [address] [facility] [address] [place] [address] [employer] [address] [place] [address] Referral ID Status Reason Start Date Expiration Date Visits Re quested Visits Authorized [id number] 1 1 [employer] Phone: Summary Purpose Family History No Family [...] Procedures Referred By Contact Referred To Contact [facility] Diagnoses LYNN (obstructive sleep apnea) Procedures Baseline Diagnostic Sleep Study Ike Moreno MD [address] [address] Specialty Diagnoses / Procedures Referred By Contac t Referred To Contact Diagnoses Hypertension affecting in second trimester 16 weeks gestation of Dichorionic diamniotic twin in second trimester Procedures ECG 12 lead Tatiana Yap MD [address] [place] [address] Referral ID Status Reason Start Date Expiration Date V isits Requested Visits Authorized [id number] Pending Review 02/07/2023 02/07/2024 1 1 Specialty Diagnoses / Procedures Referred By Contac t Referred To Contact Maternal and Medicine Diagnoses Hypertension affecting in second trimester Dichorionic diamniotic twin in second trimester Procedures US MFM with or without consult Karoline Hopson MD [address] [place] [address] [facility] [address] [place] [address] Referral ID Status Reason Start Date Expiration Date V isits Requested Visits Authorized [id number] Pending Review 03/05/2023 03/04/2024 1 1 Chief Complaint and Reason for Visit Chief Complaint Dysuria Additional Source Comments INFORMATION SOURCE (unrecogn ized section and content) DATE CREATED AUTHOR 07/31/2017 Greg Madrigal [facility] DATE CREATED AUTHOR AUTHOR'S ORGANIZ ATION 05/21/2021 [facility] DATE CREATED AUTHOR AUTHOR'S ORGANIZ ATION 12/03/2021 [facility] DATE CREATED AUTHOR AUTHOR'S ORGANIZ ATION 01/12/2022 [facility] DATE CREATED AUTHOR AUTHOR'S ORGANIZ ATION 02/11/2022 [facility] DATE CREATED AUTHOR AUTHOR'S ORGANIZ ATION 09/13/2022 [facility] DATE CREATED AUTHOR AUTHOR'S ORGANIZ ATION 02/09/2023 [facility] DATE CREATED AUTHOR AUTHOR'S ORGANIZ ATION 03/08/2023 [facility] DATE CREATED AUTHOR AUTHOR'S ORGANIZ ATION 03/20/2023 [facility] EPIC Reason for Visit (unrecogniz ed section and content) Status Reason Specialty Diagnoses / Procedures Referred By Contact Referred To Contact [facility] Diagnoses LYNN (obstructive sleep apnea) Procedures Baseline Diagnostic Sleep Study Ike Moreno MD [address] [facility] [address] [place] [address] Status Reason Specialty Diagnoses / Procedures Referre d By Contact Referred To Contact Diagnoses K21.9 GERD E66.9 OBESITY Procedures GA EGD TRANSORAL BIOPSY SINGLE/MULTIPLE EGD BIOPSY Patricia Mars DO [address] [address] [facility] Reason Comments twin HX C/S HX gastric sleeve HX PTD Reason Comments Dichorionic Diamniotic Twin Hypertension Reason Comments Routine Visit Care Teams (unrecognized sec tion and content) Piece Goods Clerk Relationship Specialty Start Date End Date Stephane Martin MD [address] [place] [address] PCP - General 05/17/20 Piece Goods Clerk Relationship Specialty Start Date End Date Stephane Martin MD [address] [facility] [place] [address] PCP - General 05/17/20 Team Status: Inactive Member Role Status Sven Shields APRN Attending Provider Active Piece Goods Clerk Relationship Specialty Start Date End Date Margot Toure DO [address] [place] [address] PCP - General Family Medicine 01/03/23 Piece Goods Clerk Relationship Specialty Start Date End Date Margot Toure DO [address] [place] [address] PCP - General Family Medicine 01/03/23 Piece Goods Clerk Relationship Specialty Start Date End Date Margot Toure DO [address] [place] [address] PCP - General Family Medicine 01/03/23 Piece Goods Clerk Relationship Specialty Start Date End Date Margot Toure DO [address] [place] [address] PCP - General Family Medicine 01/03/23 Piece Goods Clerk Relationship Specialty Start Date End Date Margot Toure DO [address] [place] [address] PCP - General Family Medicine 01/03/23 Piece Goods Clerk Relationship Specialty Start Date End Date Margot Toure DO [address] [facility] [place] [address] PCP - General Family Medicine 01/03/23 Piece Goods Clerk Relationship Specialty Start Date End Date YawMargot quintero DO [address] [place] [address] PCP - General Family Medicine 07/01/22 Piece Goods Clerk Relationship Specialty Start Date End Date Margot Toure DO [address] [facility] [place] [address] PCP - General Family Medicine 07/01/22 Ordered [...] (Given - Provider: Sharmin Sam APRN - PIECE GOODS CLERK) ceFAZolin (ANCEF) 3000 mg in sterile water [...] RN) 0609 (Given - Provider: Nohemy Underwood RN)133 (Given - Provider: Hannah Zavaleta RN)0 (Due) ipratropium-albuterol (DUONEB) nebulizer solution 1 ampule [...] Lopes RCP)1317 (Given - Provider: Brady Lopes RCP)1999 (Due) ketorolac (TORADOL) injection 30 mg (COMPLETED) [...] Provider: Whitney Ray RN)0709 (NoRateChange - Provider: Shramin Sam APRN - PIECE GOODS CLERK)0856 (Anesthesia Volume Adjustment - Provider: LAURA Mantilla PIECE GOODS CLERK) 1631 (Stopped - Provider: Hannah Zavaleta RN) [...] RN) 0440 (Given - Provider: Nohemy Underwood RN) oxyCODONE-acetaminophen [...] to back table, 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 [employer] [facility]. provides no warranty or guarantee of the accuracy or completeness of information in this document.
[2023-04-10 08:12] LABS: Basophils Percent Auto 0.3 % (0.2-2.0); Eosinophils Absolute Auto 0.1 10^3/uL (0.0-0.7); Eosinophils Percent Auto 0.7 % (0.9-7.0); Hematocrit 29.3 % (36.0-48.0); Immature Granulocytes Abs Auto 0.08 10^3/uL (0.00-0.03); Immature Granulocytes Pct Auto 0.9 % (0.0-0.5); Lymphocytes Absolute Auto 1.7 10^3/uL (1.2-3.8); Lymphocytes Percent Auto 17.7 % (20.5-60.0); Mean Corpuscular HGB Conc 30.7 g/dL (29.9-35.2); Mean Corpuscular Hemoglobin 27.1 pg (26.7-34.0); Mean Corpuscular Volume 88.3 fL (81.0-99.0); Mean Platelet Volume 9.2 fL (9.5-13.5); Monocytes Absolute Auto 0.7 10^3/uL (0.3-0.8); Monocytes Percent Auto 7.1 % (1.7-12.0); Neutrophils Absolute Auto 6.9 10^3/uL (1.4-6.5); Neutrophils Percent Auto 73.3 % (43.0-75.0); Platelet Count 288 10^3/uL (150-450); Red Blood Count 3.32 10^6/uL (4.20-5.40); Red Cell Distribution Width 13.2 % (11.0-15.0); White Blood Count 9.4 10^3/uL (4.0-11.0)
[2023-04-10 08:42] LABS: Glucose 1 Hour 118 mg/dL (<130)
== END 2023-04-10 06:43 | disposition home or self-care (01) ==
LOC: LAB 06:43
PROVIDERS: Visit Provider Physician Assistant
DX: Z13.1 Encounter for screening for diabetes mellitus (principal)
CPT/HCPCS: 36415; 82950; 85025

== ENCOUNTER 2023-04-16 10:04 | Outpatient (OUT) | payer MEDICAID, SELFPAY ==
--- NOTE | 2023-04-16 | ECG_ITS ---
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
--- OUTSIDE RECORDS SUMMARY | 2023-04-16 10:11 | XMS_ITS | CCD ---
Author Name Unknown Address [address] [place] [address] Organization [facility] Care Team Providers Care Web Services Architect Name Role Phone Neo Anderson Unavailable Unavailable Neo Anderson Unavailable Unavailable Jose Maria Santoyo MD, [facility] Primary Care Provider DOC OKEEFE Referring Unavailable JOSE MARIA SANTOYO STEPHANE Primary Care Unavailabl e SARY CYN Referring Unavailable JOSE MARIA SANTOYO, [facility] Primary Care Unavailabl e IKE ORTIZ Referring Unavailable [facility], [facility] Primary Care Unavailabl e Ale Harris Unavailable [...] DR JAMEEL Stern Consulting Unavailable DR JAMEEL BURGOS V Admitting Unavailable Ale Shields Admitting Unavailable Ale Shields Attending Unavailable NO FAMILY, PHYSICIAN Primary Care Unavailable LAURA Shields Attending Provider [phone] Ale Shields Unavailable PATRICIA CURRY Attending Unavailable PATRICIA CURRY Admitting Unavailable YAW, MARGOT Primary Care Unavailable Lilia Daugherty Unavailable Yaw DO, Margot G Primary Care Provider YAW, MARGOT G Referring Unavailable YAW, MARGOT G Primary Care Unavailable TATIANA YAP Attending Unavailable YAW, MARGOT G Referring Unavailable YAW, MARGOT G Primary Care Unavailable Yaw DO, Margot G Primary Care Provider ZACARIASCHRISTIAN MORRISY R Referring Unavailable YAW, MARGOT G Primary Care Unavailable ZACARIASCHRISTIAN MORRISY R Referring Unavailable YAW, MARGOT G Primary Care Unavailable KAROLINE HOPSON Attending Unavailable ZACARIAS, NIGEL R Referring Unavailable YAW, MARGOT G Primary Care Unavailable ZACARIAS, NIGEL Attending Unavailable ZACARIAS, NIGEL Attending Unavailable ELOISE DOMINGUEZ Attending Unavailable ZACARIAS, NIGEL Attending Unavailable YAW, MARGOT G Attending Unavailable ZACARIAS, NIGEL Attending Unavailable YAW, MARGOT G Attending Unavailable Allergies Allergy Classification Reported Allergen(s) Allergy Type Date of Onset Reaction(s) Facility (11 sources) Ibuprofen; Translations: [IBUPROFEN] Drug Allergy 09-19-2021 [facility] Medications Current Medications Medication Drug Class(es) [...] 30 mg oral tablet (1 source) Uncompetitive M-ouvtnq-M-aspartate Receptor Antagonist, Sigma-1 Agonist Start: 2020 take 1 tablet by mouth every eight hours Avoca DMT 30-30 MG 1 tablet Orally every [...] Iron (2 sources) Iron Active lactobacillus acidophilus [id number] unt / pectin 100 mg oral tablet [...] capsule (1 source) Nitrofuran Antibacterial Start: 02-09-20 22 take 1 capsule by mouth every twelve hours Macrobid 100 MG 1 capsule with food Orally every 12 hrs for 7 day(s) Jan, Active ondansetron 4 mg oral tablet (10 sources) Serotonin-3 Receptor Antagonist Start: 10-01-19 23 take 1 tablet by mouth every eight [...] extended release oral tablet (2 sources) Uncompetitive F-nbzhnm-Z-asparta te Receptor Antagonist, Sigma-1 Agonist Start: 01-14-2022 [...] Hypertension complicating ; childbirth and the puerperium (6 sources) Hypertension complicating ; Translations: [Unspecified maternal [...] 07-03-2022 Chronic Other and delivery including normal (9 sources) Dichorionic diamniotic twin ; Translations: [Twin , dichorionic/diamniotic , second trimester] Onset: 3 02-07-2023 Episodic Other screening for suspected conditions (not mental disorders or infectious disease) (9 sources) Serum testosterone level abnormal; Translations: [Other [...] sleeve gastrectomy; Translations: [Bariatric surgery status] Onset: 04-06-2022 Episodic Other infections; including parasitic (5 sources) [...] Interpretation Reference Range Facility [facility] UA (CLEAN/CATCH) CLINICAL DATA PROGRAMMER/LISA RO IF IND.on 03-24-2023 BILIRUBIN URINE Negative NEGATIVE [facility] thcare BLOOD URINE Negative NEGATIVE [facility] re Clarity (U) CLEAR CLEAR [facility] Color (U) YELLOW YELLOW [facility] e GLUCOSE URINE UA Negative NEGATIVE mg/dL [facility] Interpretation and review of laboratory results Abnormal [facility] Ketones Ql (U) TRACE Abnormal NEGATIVE mg/dL [facility] H ealthcare Leukocyte esterase Test strip Ql (U) Negative NEGATIVE [facility] NITRITE URINE Negative NEGATIVE [facility] Health care pH (U) 6.0 [pH] 5.0 - 9.0 [facility] PROTEIN URINE TRACE NEG/TRACE mg/dL [facility] SPECIFIC GRAVITY URINE >=1.030 Abnormal 1.005 - 1.025 [facility] Healthcare URINE MICROSCOPIC INDICATED NO [facility] UROBILINOGEN URINE 0.2 EU/dL 0.2 - 1.0 EU/dL [facility] Urinalysis macro (dipstick) panel (U)on 03-19-2023 Bilirubin, UA Negative Negative - 4(70) +++ mg/dL [facility] Blood, UA Negative Negative - 50 Krzysztof/mcL [facility] Clarity, UA Clear [facility] re Color, UA Yellow [facility] e Glucose, UA Negative Negative - 1999(110) ++++ mg/dL [facility] Interpretation and review of laboratory results Abnormal [facility] re Ketones, UA Negative Negative - 160(16) ++++ mg/dL [facility] Leukocytes, UA Negative Negative - 500+++ Mckayla/mcL [facility] Nitrite, UA Negative Negative - Positive [facility] pH, UA 6.0 5 - 9 [facility] e Protein, UA Positive Negative - 1999(20) ++++ mg/dL [facility] Spec Grav, UA 1.030 1 - 1.03 [facility] Urobilinogen, UA 0.2 0.2 - 12 mg/dL [facility] CBC without diffon External Hematocrit Hct 33.7 [facility] Comment on above: See attached External Hemoglobin 10.9 [facility] Comment on above: See attached External MCH 29.0 [facility] [employer] [facility] Comment on above: See attached External Mchc 32.3 [facility] Comment on above: See attached External Mcv 89.6 [facility] [email or web address] System Comment on above: See attached External Mpv 9.7 [facility] [email or web address] System Comment on above: See attached External Platelet Count 268 [facility] Comment on above: See attached External Rbc Count 3.76 [facility] Comment on above: See attached External Rdw 13.4 [facility] [email or web address] System Comment on above: See attached External Wbc Count 9.5 [facility] Comment on above: See attached [facility] [employer] [facility] Urine protein creatinine rat ioon 02-27-2023 Protein/Creatinine (U) [Mass ratio] 0.10 mg/g [facility] Comment on above: see attached [facility] - Officeon 2022 Radiology Study observation (narrative) [facility] HIV 1&2 AB/AG Screen (P24 AG )on 12-20-2022 HIV 1&2 AB/AG Non-Reactive [facility] Hepatitis B surface antigeno n 12-20-2022 Hepatitis B Surface Antigen Negative [facility] No Panel Informationon 12-20 [facility] Rubella IGG immune statuson 12-20-2022 Rubella immune IgG 1.96 [facility] Syphilis Total(Unknown Syphi lis Status)on 12-20-2022 Syphilis Non-Reactive [facility] System Ultrasound - Officeon 2022 SEE SCANNED REPORt MANUAL LY TRANSCRIBED RESULTS [facility] COVID + FLU Quick Testingon 10-12-2022 SARS-CoV-2 (COVID-19) RNA BECCA+probe Ql (Unsp spec) negtaive [employer] Other COVID + FLU Quick Testing Negative [employer] Other Basic Metabolic Profon 09-11 Anion gap [Moles/Vol] 9 mmol/L Normal 9-17 [facility] Comment on above: Performed By: #### B FIFI, CBC, PT #### [facility] [address] [place] [address] [phone] [employer] Sales Host/Hostess: Anthony Aguilar MD Calcium [Mass/Vol] 8.8 mg/dL Normal 8.6-10.4 [facility] Comment on above: Performed By: #### B MP, CBC, PT #### [employer] [address] [place] [address] [phone] [employer] Sales Host/Hostess: Anthony Aguilar MD Chloride [Moles/Vol] 106 mmol/L Normal 98-107 [facility] Comment on above: Performed By: #### B MP, CBC, PT #### [facility] [address] [place] [address] [phone] [employer] Sales Host/Hostess: Anthony Aguilar MD CO2 [Moles/Vol] 23 mmol/L Normal 20-31 [facility] Comment on above: Performed By: #### B MP, CBC, PT #### [facility] [employer] [address] [place] [address] [phone] [employer] Sales Host/Hostess: Anthony Aguilar MD Creatinine [Mass/Vol] 0.7 mg/dL Normal 0.5-0.9 [facility] Comment on above: Performed By: #### B FIFI, CBC, PT #### [facility] [employer] [address] [place] [address] [phone] [employer] Sales Host/Hostess: Anthony Aguilar MD GFR/1.73 sq M.predicted among non-blacks MDRD (S/P/Bld) [Vol rate/Area] mL/min/{1.73_m2} Normal >60 [facility] Comment on above: Result Comment: [...] renal tubular secretion. Performed By: #### B FIFI, CBC, PT #### [facility] [employer] [address] [place] [address] [phone] [employer] Sales Host/Hostess: Anthony Aguilar MD Glucose [Mass/Vol] 79 mg/dL Normal 70-99 [facility] Comment on above: Performed By: #### B FIFI, CBC, PT #### [facility] [employer] [address] [place] [address] [phone] [employer] Sales Host/Hostess: Anthony Aguilar MD Potassium [Moles/Vol] 4.1 mmol/L Normal 3.7-5.3 [facility] Comment on above: Performed By: #### B FIFI, CBC, PT #### [facility] [employer] [address] [place] [address] [phone] [employer] Sales Host/Hostess: Anthony Aguilar MD Sodium [Moles/Vol] 138 mmol/L Normal 135-144 [facility] Comment on above: Performed By: #### B MP, CBC, PT #### [facility] [employer] [address] [place] [address] [phone] [employer] Sales Host/Hostess: Anthony Aguilar MD Urea nitrogen [Mass/Vol] 11 mg/dL Normal 6-20 [facility] Comment on above: Performed By: #### B MP, CBC, PT #### [facility] [employer] [address] [place] [address] [phone] [employer] Sales Host/Hostess: Anthony Aguilar MD CBCon 09-11-2022 Erythrocyte distribution width (RBC) [Ratio] 13.2 % Normal 11.8-14.4 [facility] Comment on above: Performed By: #### B MP, CBC, PT #### [facility] [employer] [address] [place] [address] [phone] [employer] Sales Host/Hostess: Anthony Aguilar MD Hematocrit (Bld) [Volume fraction] 41.6 % Normal 36.3-47.1 [facility] Comment on above: Performed By: #### B MP, CBC, PT #### [facility] [employer] [address] [place] [address] [phone] [employer] Sales Host/Hostess: Anthony Aguilar MD Hemoglobin (Bld) [Mass/Vol] 13.3 g/dL Normal 11.9-15.1 [facility] Comment on above: Performed By: #### B MP, CBC, PT #### [facility] [employer] [address] [place] [address] [phone] [employer] Sales Host/Hostess: Anthony Aguilar MD MCH (RBC) [Entitic mass] 28.3 pg Normal 25.2-33.5 [facility] Comment on above: Performed By: #### B MP, CBC, PT #### [facility] [employer] [address] [place] [address] 23693 [employer] Plan Sales Host/Hostess: Anthony Aguilar MD MCHC (RBC) [Mass/Vol] 32.0 g/dL Normal 28.4-34.8 [facility] Comment on above: Performed By: #### B MP, CBC, PT #### [address] [phone] [employer] Plan Sales Host/Hostess: Anthony Aguilar MD MCV (RBC) [Entitic vol] 88.5 fL Normal 82.6-102.9 [facility] Comment on above: Performed By: #### B MP, CBC, PT #### [address] [phone] [employer] Sales Host/Hostess: Anthony Aguilar MD NRBC Automated 0.0 per 100 WBC Normal 0.0 [facility] Comment on above: Performed By: #### B MP, CBC, PT #### [address] [phone] [employer] Sales Host/Hostess: Anthony Aguilar MD Platelet mean volume (Bld) [Entitic vol] 9.7 fL Normal 8.1-13.5 [facility] Comment on above: Performed By: #### B MP, CBC, PT #### [address] [phone] [employer] Sales Host/Hostess: Anthony Aguilar MD Platelets (Bld) [#/Vol] 276 10*3/uL Normal 138-453 [facility] Comment on above: Performed By: #### B MP, CBC, PT #### [address] [phone] [employer] Sales Host/Hostess: Anthony Aguilar MD RBC (Bld) [#/Vol] 4.70 10*6/uL Normal 3.95-5.11 [facility] Comment on above: Performed By: #### B MP, CBC, PT #### [address] [phone] [employer] Sales Host/Hostess: Anthony Aguilar MD WBC (Bld) [#/Vol] 7.4 10*3/uL Normal 3.5-11.3 [facility] Comment on above: Performed By: #### B MP, CBC, PT #### [address] [phone] [employer] Sales Host/Hostess: Anthony Aguilar MD PTon 09-11-2022 INR Coag (PPP) [Relative time] 1.0 {INR} Normal [facility] Comment on above: Result Comment: Therapeutic Range: Moderate Anticoagulant Intensity: INR = 2.0-3.0 High Anticoagulant Intensity: INR = 2.5-3.5 Performed By: #### B MP, CBC, PT #### [facility] [employer] [address] [place] [address] [phone] Party Plan Sales Host/Hostess: Anthony Aguilar MD PT Coag (PPP) [Time] 12.9 s Normal 11.7-14.9 [facility] Comment on above: Performed By: #### B MP, CBC, PT #### [address] [phone] [employer] Sales Host/Hostess: Anthony Aguilar MD Surgical Pathologyon 023 Surgical Pathology (NOTE) Path Number: [id number] -- Diagnosis -- GALLBLADDER, CHOLECYSTECTOMY: -CHRONIC CHOLECYSTITIS WITH CHOLESTEROLOSIS AND CHOLELITHIASIS. Jameel Lawler M.D. Electronically Signed Out 09/12/2022 Clinical Information Pre-op Diagnosis: GALLSTONES Operative Findings: GALLBLADDER Operation Performed: LAPAROSCOPIC CHOLECYSTECTOMY tm Source of Specimen A: GALLBLADDER Gross Description FINA VELÁSQUEZ, GALLBLADDER Received in formalin is a 7.5 [...] lesions or periductal lymph nodes are identified. [employer] Investigator sections 1c. tm Microscopic Description Microscopic examination performed. Processing Lab: [address] [place] [address] Interpretation Performed at [address] [phone] SURGICAL PATHOLOGY CONSULTATION Patient Name: FINA VELÁSQUEZ [facility] Rec: [id number] [facility] [employer] [facility] ANATOMIC PATHOLOGY [address] [place], [place] [address] Normal [facility] Urine Cultureon 02-08-2022 Bacteria identified Cx Nom (U) Reason for Exam Dysuria Urine ORGANISM: Escherichia coli (O:ESCCOL) [place] Count >100,000 Aerobic LISA Charge (NMIC56) ---- [...] RESISTANT TO ALL B-LACTAM DRUGS. PERFORMED BY: [address] [address] [place] [address] PATHOLOGIST DIRECTOR PRIVATE MUSIC THERAPY AGENCY SAMIRA WEN M.D. [facility] Comment on above: Performed By: #### C UU #### [facility] [address] [phone] [facility] VC CONSULT FOLLOWUPon 2021 VC CONSULT FOLLOWUP Patient: FINA VELÁSQUEZ Exam Date: 01/08/2022 : 1995 Gender:F Ordering : DR JAMEEL BURGOS M.D. Admission #: [id number] Family : Order #: [id number] CLICK HERE TO VIEW EXAM RADIOLOGY REPORT [...] Courtney Hinton M.D. on 01/08/2022 at 10:10 [facility] VC EXT VENOUS RT LIMITEDon 1 03-10-2021 VC EXT VENOUS RT LIMITED Patient: FINA VELÁSQUEZ Exam Date: 01/08/2022 : 1995 Gender:F Ordering : DR JAMEEL BURGOS M.D. Admission #: [id number] Family : Order #: [id number] CLICK HERE TO VIEW EXAM RADIOLOGY REPORT [...] Hinton M.D. on 01/08/2022 at 10:05 Normal [facility] VC ENDOVENOUS ABL 1ST V RTon 12-31-2021 VC ENDOVENOUS ABL 1ST V RT Patient: FINA VELÁSQUEZ Exam Date: 12/31/2021 : 1995 Gender:F Ordering : DR JAMEEL BURGOS M.D. Admission #: [id number] Family : Order #: [id number] CLICK HERE TO VIEW EXAM RADIOLOGY REPORT [...] Burgos MD on 12/31/2021 at 11:06 Normal [facility] ED Clinical Summaryon 2021 ED Clinical Summary [facility] ? Urgent Care [address] [place] [id number] Clinical Summary PERSON INFORMATION Name: VERNON VELÁSQUEZ Age: 26 Years Sex: FEMALE : 1995 MRN: Acct#: Visit Reason: OTTERBEIN PHYSICAL Arrival: 11/28/2021 10:39:56 Discharge: 11/28/2021 10:59:00 LOS: 000 00:20 Check In: 11/28/2021 10:39:56 Checkout: 11/28/2021 10:59:00 Address: [address] [place], [place] [id number] PCP: Provider, None PROVIDER INFORMATION VITALS INFORMATION Vital Sign Triage Latest Temperature Tympanic Temperature Temporal Artery Pulse Rate O2 Sat Respiratory Rate Blood Pressure / / MEDICAL INFORMATION Medications Given: Allergy Information: No known allergies PHYSICIAN DOCUMENTATION DISCHARGE INFORMATION: Discharge Disposition: Eloped Discharge Location: PATIENT EDUCATION INFORMATION Instructions: Follow-Up: DIAGNOSIS: Patient Understands: Comment: Normal [facility] ED Patient Summaryon 022 ED Patient Summary [facility] ? Urgent Care [address] [place] [address] [id number] PATIENT DISCHARGE INSTRUCTIONS Patient Information Name: VERNON VELÁSQUEZ Age: 26 Years Date of : 1995 Reason For Visit: OTTERBEIN PHYSICAL Arrival Time: 11/28/2021 10:39:56 Primary Care Physician: Provider, None Attending Physician: Nuno Bradshaw Comment: Patient Education Medication Information: The exam and treatment you received today in the [facility] Emergency Department were for an urgent problem and are not intended as complete care. It is important for you to follow up with a doctor, nurse practitioner, or physician?s school bus driver/teacher assistant for ongoing care. If your symptoms [...] so we can reach you if necessary. [facility] Emergency Department has provided you with a complete list of medications post discharge. Please inform your senior interactive developer/provider of your visit and for further instruction [...] for Disease Control and Prevention October 2013 [facility] VC CONSULT FOLLOWUPon 2021 VC CONSULT FOLLOWUP Patient: FINA VELÁSQUEZ Exam Date: 11/28/2021 : 1995 Gender:F Ordering : DR JAMEEL BURGOS M.D. Admission #: [id number] Family : Order #: [id number] CLICK HERE TO VIEW EXAM RADIOLOGY REPORT [...] Courtney Hinton M.D. on 11/28/2021 at 10:04 [facility] VC EXT VENOUS LT LIMITEDon 1 VC EXT VENOUS LT LIMITED Patient: FINA VELÁSQUEZ Exam Date: 11/28/2021 : 1995 Gender:F Ordering : DR JAMEEL BURGOS M.D. Admission #: [id number] Family : Order #: [id number] CLICK HERE TO VIEW EXAM RADIOLOGY REPORT [...] Hinton M.D. on 11/28/2021 at 09:45 Normal [facility] VC ENDOVENOUS ABL 1ST V LTon 11-22-2021 VC ENDOVENOUS ABL 1ST V LT Patient: FINA VELÁSQUEZ Exam Date: 11/22/2021 : 1995 Gender:F Ordering : DR JAMEEL BURGOS M.D. Admission #: [id number] Family : Order #: [id number] CLICK HERE TO VIEW EXAM RADIOLOGY REPORT PROCEDURE: VEIN CENTER ENDOVENOUS ABLATION FIRST VEIN LEFT GREAT SAPHENOUS VEIN COMPARISON: VC VENOUS REFLUX JOVANA LMT, 10/17/2021. INDICATIONS: Pain co-occurrent and due to varicose veins of bilateral legs I83.813 OPERATIVE REPORT: The risks and benefits of the procedure had been previously discussed, and were rediscussed at length. Informed written consent was obtained by sd and Christopher Zavala assisted. Time out procedure [...] Jameel Burgos MD on 11/22/2021 at 09:04 [facility] VC COMP CONSULTATIONon 10-17 VC COMP CONSULTATION Patient: FINA VELÁSQUEZ Exam Date: 10/17/2021 : 1995 Gender:F Ordering : DR JAMEEL BURGOS M.D. Admission #: [id number] Family : Order #: [id number] CLICK HERE TO VIEW EXAM RADIOLOGY REPORT [...] arterial disease 5. CEAP: C2, EC, AP, AL PLAN: 1. Continued use of compression stockings [...] M.D. on 10/17/2021 at 12:46 Normal [facility] Basic Metabolic Panelon 04-0 Anion gap [Moles/Vol] 8 mmol/L Low 9 - 17 mmol/L [facility] Calcium [Mass/Vol] 8.6 mg/dL 8.6 - 10. 4 mg/dL [facility] Chloride [Moles/Vol] 106 mmol/L 98 - 107 mmol/L [facility] CO2 [Moles/Vol] 23 mmol/L 20 - 31 mmol/L [facility] Creatinine [Mass/Vol] 0.67 mg/dL 0.50 - 0.90 mg/dL [facility] GFR >60 >60 mL/min [facility] GFR Non- >60 >60 mL/min [facility] GFR/1.73 sq M.predicted MDRD (S/P/Bld) [Vol rate/Area] [facility] Comment on above: Average GFR for 20-2 9 years old: 116 mL/min/1.73sq m Chronic Kidney Disease: <60 mL/min/1.73sq m Kidney failure: <15 mL/min/1.73sq m eGFR calculated using average adult body mass. Additional eGFR calculator available at: http://www.e-Tag/multiple_crcl_2012.htm Glucose [Mass/Vol] 83 mg/dL 70 - 99 mg/dL [facility] Interpretation and review of laboratory results Abnormal [facility] Potassium [Moles/Vol] 3.9 mmol/L 3.7 - 5.3 mmol/L [facility] Sodium [Moles/Vol] 137 mmol/L 135 - 144 mmol/L [facility] Urea nitrogen (BldV) [Mass/Vol] 7 mg/dL 6 - 20 mg/dL [facility] CBCon 05-17-2021 Hematocrit (Bld) [Volume fraction] 34.4 % Low 36.3 - 47.1 % [facility] Hemoglobin.gastroin testinal spec 1 Ql (Stl) 11.0 g/dL Low 11.9 - 15.1 g/dL [facility] Interpretation and review of laboratory results Abnormal [facility] MCH (RBC) [Entitic mass] 27.2 pg 25.2 - 33.5 pg [facility] MCHC (RBC) [Mass/Vol] 32.0 g/dL 28.4 - 34.8 g/dL [facility] MCV (RBC) [Entitic vol] 85.1 fL 82.6 - 102.9 fL [facility] NRBC Automated 0.0 0.0 per 100 WBC [facility] Platelet distribution width (Bld) [Ratio] 14.1 % 11.8 - 14.4 % [facility] Platelet mean volume (Bld) [Entitic vol] 10.1 fL 8.1 - 13.5 fL [facility] Platelets (Bld) [#/Vol] 302 10*3/uL [facility] RBC (Bld) [#/Vol] 4.04 10*6/uL 3.95 - 5.1 1 m/uL [facility] WBC (Bld) [#/Vol] 13.7 10*3/uL [facility] SURGICAL PATHOLOGY REPORTon 05-17-2021 Surgical Pathology [...] Specimen A: GASTRIC REMNANT Gross Description FINA VELÁSQUEZ GASTRIC REMNANT 17.0 x 4.5 x 2.5 [...] x 0.5 cm piece of adipose tissue. [employer] Investigator sections 1cs. tm Microscopic Description 1 H&E reviewed. Microscopic examination performed. SURGICAL PATHOLOGY CONSULTATION Patient Name: FINA VELÁSQUEZ [facility] Rec: [id number] Path Number: [id number] [facility] [employer] [facility] ANATOMIC PATHOLOGY [address] [place], [place] [phone] [facility] Basic Metabolic Panelon Anion gap [Moles/Vol] 10 mmol/L 9 - 17 mmol/L [facility] Calcium [Mass/Vol] 8.7 mg/dL 8.6 - 10. 4 mg/dL [facility] Chloride [Moles/Vol] 105 mmol/L 98 - 107 mmol/L [facility] CO2 [Moles/Vol] 23 mmol/L 20 - 31 mmol/L [facility] Creatinine [Mass/Vol] 0.75 mg/dL 0.50 - 0.90 mg/dL [facility] Thirsty GFR >60 >60 mL/min [facility] Thirsty GFR Non- >60 >60 mL/min [facility] GFR/1.73 sq M.predicted MDRD (S/P/Bld) [Vol rate/Area] [facility] Comment on above: Average GFR for 20-2 9 years old: 116 mL/min/1.73sq m Chronic Kidney Disease: <60 mL/min/1.73sq m Kidney failure: <15 mL/min/1.73sq m eGFR calculated using average adult body mass. Additional eGFR calculator available at: http://www.e-Tag/multiple_crcl_2011.htm Glucose [Mass/Vol] 132 mg/dL High 70 - 99 mg/dL [facility] Interpretation and review of laboratory results Abnormal [facility] Potassium [Moles/Vol] 3.5 mmol/L Low 3.7 - 5.3 mmol/L [facility] Sodium [Moles/Vol] 138 mmol/L 135 - 144 mmol/L [facility] Urea nitrogen (BldV) [Mass/Vol] 10 mg/dL 6 - 20 mg/dL [facility] CBC without Diffon 2 Hematocrit (Bld) [Volume fraction] 38.8 % 36.3 - 47.1 % [facility] Hemoglobin.gastroin testinal spec 1 Ql (Stl) 12.6 g/dL 11.9 - 15.1 g/dL [facility] Interpretation and review of laboratory results Abnormal [facility] MCH (RBC) [Entitic mass] 27.2 pg 25.2 - 33.5 pg [facility] MCHC (RBC) [Mass/Vol] 32.5 g/dL 28.4 - 34.8 g/dL [facility] MCV (RBC) [Entitic vol] 83.8 fL 82.6 - 102.9 fL [facility] NRBC Automated 0.0 0.0 per 100 WBC [facility] Platelet distribution width (Bld) [Ratio] 13.9 % 11.8 - 14.4 % [facility] Platelet mean volume (Bld) [Entitic vol] 9.8 fL 8.1 - 13.5 fL [facility] Platelets (Bld) [#/Vol] 340 10*3/uL [facility] RBC (Bld) [#/Vol] 4.63 10*6/uL 3.95 - 5.1 1 m/uL [facility] WBC (Bld) [#/Vol] 15.0 10*3/uL High [facility] POC Glucose Fingerstickon Glucose [Mass/Vol] 77 mg/dL 65 - 105 mg/dL Formerly named [facility] POCT urine pregnancyon 05-16 Beta HCG ( test) Ql (U) Negative NEGATIVE [facility] Comment on above: Specimens with hCG l evels near the threshold of the test (25 mIU/mL) may give a negative or indeterminate result. In such cases, another test should be performed with a new specimen in 48-72 hours. If early is suspected clinically in this setting, correlation with quantitative serum b-hCG level is suggested. [facility] [id number] 05-15-2021 SARS-CoV-2 (COVID-19) RNA BECCA+probe Ql (Unsp spec) Normal [facility] Comment on above: Performed By: #### C OVID #### [facility] [address] [place] [address] Party Plan Sales Host/Hostess: Anthony Aguilar MD [facility] [address] [place] [address] Party Plan Sales Host/Hostess: Jameel Lawler MD SARS-CoV-2 (COVID-19) RNA BECCA+probe Ql (Unsp spec) Not detected Normal NOTDET [facility] Comment on above: Result Comment: The specimen is NEGATIVE for SARS-CoV-2, the novel coronavirus associated with COVID-19. A negative result does not rule out COVID-19. [employer] SARS-CoV-2 for use on the [employer]on[employer]/8800 [employer] is a real-time RT-PCR test intended [...] this assay. Fact sheet for Healthcare Providers: https://www.fda.gov/media/909352/download Fact sheet for Patients: https://www.fda.gov/media/250316/download METHODOLOGY: RT-PCR Performed By: #### C OVID #### [facility] [address], [place] [id number] [employer] Plan Sales Host/Hostess: Anthony Aguilar MD [facility] [address] [place] [address] [place] [address] Party Plan Sales Host/Hostess: Jameel Lawler MD [id number] 05-14-2021 SARS-CoV-2 (COVID-19) RNA BECCA+probe Ql (Unsp spec) .NASOPHARYNGEAL SWAB Normal [facility] Comment on above: Performed By: #### C OVID #### [employer] [facility] [address], [place] [id number] Party Plan Sales Host/Hostess: Anthony Aguilar MD [facility] [address] [place] [address] [place] [address] Party Plan Sales Host/Hostess: Jameel Lawler MD Nicotine, Bloodon 05-05-2021 2-WH-[id number] <2 ng/mL [facility] Cotinine <2 ng/mL [facility] Nicotine <2 ng/mL [facility] Comment on above: (NOTE) Consistent with abstinence [...] developed and its performance characteristics determined by [facility]. It has not been cleared or approved by the US Food and Drug Administration. This test was performed in a CLIA certified laboratory and is intended for clinical purposes. Performed By: [facility] [address] [place] [id number] Engineering Clerk: Yara Rodriguez MD [facility] EKG 12 LeadOrdered By: Diaz Conway on 05-03-2021 Atrial Rate 72 BPM [facility] Work Phone: P [place] 45 degrees appening Phone: P-R Interval 142 ms appening Phone: Q-T Interval 376 ms appening Phone: QRS Duration 100 ms appening Phone: QTc Calculation (Bazett) 411 ms [facility] Work Phone: R [place] 22 degrees appening Phone: T [place] 32 degrees appening Phone: Ventricular Rate 72 BPM [email or web address] Work Phone: appening Phone: EKG 12 Leadon 05-03-2021 Normal sinus rhythm Normal ECG No previous ECGs available [facility] Diaz Romero MD - 05/03/2021 Normal sinus rhythm Normal ECG No previous ECGs available [facility] Work Phone: APTTon 05-02-2021 aPTT Coag (Bld) [Time] 25.0 s [facility] Comment on above: IV Heparin Therapy Range: 48.6-77.8 Basic Metabolic Panelon 04-11 Anion gap [Moles/Vol] 15 mmol/L 9 - 17 mmol/L [facility] Calcium [Mass/Vol] 9.8 mg/dL 8.6 - 10. 4 mg/dL [facility] Chloride [Moles/Vol] 102 mmol/L 98 - 107 mmol/L [facility] CO2 [Moles/Vol] 21 mmol/L 20 - 31 mmol/L [facility] Creatinine [Mass/Vol] 0.55 mg/dL 0.50 - 0.90 mg/dL [facility] GFR >60 >60 mL/min [facility] GFR Non- >60 >60 mL/min [facility] GFR/1.73 sq M.predicted MDRD (S/P/Bld) [Vol rate/Area] [facility] Comment on above: Average GFR for 20-2 9 years old: 116 mL/min/1.73sq m Chronic Kidney Disease: <60 mL/min/1.73sq m Kidney failure: <15 mL/min/1.73sq m eGFR calculated using average adult body mass. Additional eGFR calculator available at: http://www.Virtual 3-D Display for Smartphones.BoostUp/multiple_crcl_2011.htm Glucose [Mass/Vol] 85 mg/dL 70 - 99 mg/dL [facility] Potassium [Moles/Vol] 4.5 mmol/L 3.7 - 5.3 mmol/L [facility] Sodium [Moles/Vol] 138 mmol/L 135 - 144 mmol/L [facility] Urea nitrogen (BldV) [Mass/Vol] 11 mg/dL 6 - 20 mg/dL [facility] CBCon 05-02-2021 Hematocrit (Bld) [Volume fraction] 41.0 % 36.3 - 47.1 % [facility] Hemoglobin.gastroin testinal spec 1 Ql (Stl) 12.9 g/dL 11.9 - 15.1 g/dL [facility] MCH (RBC) [Entitic mass] 26.9 pg 25.2 - 33.5 pg [facility] MCHC (RBC) [Mass/Vol] 31.5 g/dL 28.4 - 34.8 g/dL [facility] MCV (RBC) [Entitic vol] 85.6 fL 82.6 - 102.9 fL [facility] NRBC Automated 0.0 0.0 per 100 WBC [facility] Platelet distribution width (Bld) [Ratio] 13.7 % 11.8 - 14.4 % [facility] Platelet mean volume (Bld) [Entitic vol] 9.8 fL 8.1 - 13.5 fL [facility] Platelets (Bld) [#/Vol] 380 10*3/uL [facility] RBC (Bld) [#/Vol] 4.79 10*6/uL 3.95 - 5.1 1 m/uL [facility] WBC (Bld) [#/Vol] 11.2 10*3/uL [facility] No Panel Informationon 05-02 [facility] Protime-INRon 05-02-2021 INR Coag (Bld) [Relative time] 1.0 {INR} [facility] Comment on above: Therapeutic Range: Moderate Anticoagulant Intensity: INR = 2.0-3.0 High Anticoagulant Intensity: INR = 2.5-3.5 PT Coag (PPP) [Time] 10.6 s [facility] XR CHEST (2 VW)on 05-02-2021 No acute process. [facility] EXAMINATION: TWO XRAY VIEWS OF THE CHEST 05/02/2021 11:20 am COMPARISON: None. HISTORY: ORDERING SYSTEM PROVIDED HISTORY: preop, obesity TECHNOLOGIST PROVIDED HISTORY: preop, obesity FINDINGS: Heart is normal in size. Lungs are clear. No free air. [facility] Jose Juan Florez Jr. , DO - 05/02/2021 EXAMINATION: TWO XRAY VIEWS OF THE CHEST 05/02/2021 11:20 am COMPARISON: None. HISTORY: ORDERING SYSTEM PROVIDED HISTORY: preop, obesity TECHNOLOGIST PROVIDED HISTORY: preop, obesity FINDINGS: Heart is normal in size. Lungs are clear. No free air. IMPRESSION: No acute process. [facility] Work Phone: Radiology Study observation (narrative) [facility] Phone: XR CHEST (2 VW)Ordered By: Santos Florez on 05-02-2021 [facility] Phone: [id number] 12-05-2020 SARS-CoV-2 (COVID-19) RNA BECCA+probe Ql (Unsp spec) Normal [facility] Comment on above: Performed By: #### C OVID #### [facility] [address], [place] [id number] Party Plan Sales Host/Hostess: Anthony Aguilar MD [facility] [address] [place] [address] Party Plan Sales Host/Hostess: Jameel Lawler MD SARS-CoV-2 (COVID-19) RNA BECCA+probe Ql (Unsp spec) Not detected Normal NOTDET [facility] Comment on above: Result Comment: The specimen is NEGATIVE for SARS-CoV-2, the novel coronavirus associated with COVID-19. A negative result does not rule out COVID-19. Lucrecia SARS-CoV-2 for use on the [employer] Coridon0/8800 Systems is a real-time RT-PCR test intended [...] this assay. Fact sheet for Healthcare Providers: https://www.fda.gov/media/119642/download Fact sheet for Patients: https://www.fda.gov/media/583338/download METHODOLOGY: RT-PCR Performed By: #### C OVID #### [facility] [address], [place] [id number] [employer] Sales Host/Hostess: Anthony Aguilar MD [facility] [address] [place] [address] Party Plan Sales Host/Hostess: Jameel Lawler MD [id number] 12-04-2020 SARS-CoV-2 (COVID-19) RNA BECCA+probe Ql (Unsp spec) .NASOPHARYNGEAL SWAB Normal [facility] Comment on above: Performed By: #### C OVID #### [facility] [address], [place] [id number] Party Plan Sales Host/Hostess: Anthony Aguilar MD [facility] [address] [place] [address] Party Plan Sales Host/Hostess: Jameel Lawler MD Vital Signs Date Time Vital Sign Value Performing Clinician Facility 03-19-2023 11:06-0500 Body mass index (BMI) [Ratio] 36.34 kg/m2 Eloise BURROUGHS Work Phone: [facility] 03-19-2023 11:06-0500 Body weight 105.23 kg Eloise BURROUGHS Work Phone: [facility] 03-19-2023 11:06-0500 Diastolic blood pressure 78 mm[Hg] Eloise BURROUGHS Work Phone: [facility] 03-19-2023 11:06-0500 Systolic blood pressure 124 mm[Hg] Eloise BURROUGHS Work Phone: [facility] 03-05-2023 10:48-0500 Body mass index (BMI) [Ratio] 35.08 kg/m2 Karoline Hopson MD Work Phone: [facility] 03-05-2023 10:48-0500 Body weight 101.61 kg Karoline Hopson MD Work Phone: [facility] 03-05-2023 10:48-0500 Diastolic blood pressure 75 mm[Hg] Karoline Hopson MD Work Phone: [facility] 03-05-2023 10:48-0500 Heart rate 89 /min Karoline Hopson MD Work Phone: [employer] 03-05-2023 10:48-0500 Systolic blood pressure 126 mm[Hg] [facility] 02-07-2023 13:34-0500 Body height 170.2 cm Tatiana Yap MD [facility] 02-07-2023 13:34-0500 Body mass index (BMI) [Ratio] 34.14 kg/m2 Tatiana Yap MD Work Phone: [employer] 02-07-2023 13:34-0500 Body weight 98.88 kg Tatiana Yap MD Work Phone: [employer] 02-07-2023 13:34-0500 Diastolic blood pressure 83 mm[Hg] Tatiana Yap MD Work Phone: [employer] 02-07-2023 13:34-0500 Heart rate 76 /min Tatiana Yap MD Work Phone: [employer] 02-07-2023 13:34-0500 Systolic blood pressure 126 mm[Hg] Tatiana Yap MD Work Phone: [employer] 10-12-2022 10:10-0400 Body height 170.18 cm Lilia Daugherty Other [employer] Other 10-12-2022 10:10-0400 Body mass index (BMI) [Ratio] 32.86 kg/m2 Lilia Daugherty Other [employer] Other 10-12-2022 10:10-0400 Body temperature 99 [degF] Lilia Daugherty Other [employer] Other 10-12-2022 10:10-0400 Body weight 95.17 kg Lilia Daugherty Other [employer] Other 10-12-2022 10:10-0400 Diastolic blood pressure 74 mm[Hg] Lilia Daugherty Other [employer] Other 10-12-2022 10:10-0400 SaO2% (BldA) [Mass fraction] 98 % Lilia Daugherty Other [employer] Other 10-12-2022 10:10-0400 Systolic blood pressure 118 mm[Hg] Lilia Daugherty Other [employer] Other 05-17-2021 15:52-0400 Body temperature 98.49 [degF] Patricia Curry [employer] Work Phone: [facility] 05-17-2021 15:52-0400 Diastolic blood pressure 97 mm[Hg] Patricia [employer] Work Phone: [facility] 05-17-2021 15:52-0400 Heart rate 70 /min Patricia [employer] Work Phone: [facility] 05-17-2021 15:52-0400 Respiratory rate 18 /min Patricia [employer] Work Phone: [facility] 05-17-2021 15:52-0400 SaO2% (BldA) [Mass fraction] 99 % Patricia [employer] Work Phone: [facility] 05-17-2021 15:52-0400 Systolic blood pressure 138 mm[Hg] Patricia [employer] Work Phone: [facility] 05-16-2021 06:06-0400 Body mass index (BMI) [Ratio] 43.16 kg/m2 Patricia [employer] Work Phone: [facility] 05-16-2021 06:06-0400 Body weight 125 kg Patricia [employer] Work Phone: [facility] 05-16-2021 05:57-0400 Body height 170.2 cm Patricia Curry DO Work Phone: [facility] 05-02-2021 10:35-0400 Body height 170.2 cm Stvz 1 [facility] 05-02-2021 10:35-0400 Body mass index (BMI) [Ratio] 44.95 kg/m2 Stvz 1 [facility] 05-02-2021 10:35-0400 Body temperature 97.2 [degF] Stvz 1 [facility] 05-02-2021 10:35-0400 Body weight 130.18 kg Stvz 1 [facility] 05-02-2021 10:35-0400 Diastolic blood pressure 85 mm[Hg] Stvz 1 [facility] 05-02-2021 10:35-0400 Heart rate 66 /min Stvz 1 [facility] 05-02-2021 10:35-0400 Respiratory rate 18 /min Stvz 1 [facility] 05-02-2021 10:35-0400 SaO2% (BldA) [Mass fraction] 99 % Stvz 1 [facility] 05-02-2021 10:35-0400 Systolic blood pressure 122 mm[Hg] Stvz 1 [facility] 12-04-2020 17:00-0400 Body height 170.18 cm Ale Ginty Other [employer] Other 12-04-2020 17:00-0400 Body mass index (BMI) [Ratio] 43.85 kg/m2 Ale Ginty Other [employer] Other 12-04-2020 17:00-0400 Body temperature 97.4 [degF] Ale Ginty Other [employer] Other 12-04-2020 17:00-0400 Body weight 127.01 kg Ale Ginty Other [employer] Other 12-04-2020 17:00-0400 SaO2% (BldA) [Mass fraction] 99 % Ale Ginty Other [facility] [employer] Other Encounters Encounter Date Encounter Type Care Provider Facility Start: 04-10-2023 End: 04-10-2023 ambulatory NIGEL ZACARIAS Not Available Start: 04-09-2023 End: 04-10-2023 ambulatory NIGEL Rucker [facility] Start: 03-24-2023 Clinisync Result Encounter Nigel Zacarias DO Work Phone: [facility] External Department Unsolicited Start: 03-24-2023 Clinisync Result Encounter Nigel Zacarias DO Work Phone: [facility] External Department Unsolicited Start: 03-19-2023 End: 03-19-2023 ambulatory ELOISE DOMINGUEZ Not Available Start: 03-19-2023 End: 03-19-2023 Office outpatient visit 15 minutes Eloise Dominguez PA Work Phone: [facility] Comment on above: Second trimester pre gnancy; Diabetes mellitus screening Start: 03-05-2023 End: 03-06-2023 Orders Only Laila Castillo RN Maternal- Medic ine at [facility] Comment on above: Hypertension affecti ng in second trimester (Primary Dx); Dichorionic diamniotic twin in second trimester Start: 03-05-2023 End: 03-05-2023 Office outpatient visit 15 minutes Karoline Hopson MD Work Phone: Maternal- Medicine at [facility] Comment on above: History of sleeve ga strectomy (Primary Dx); History of induced hypertension Start: 02-27-2023 Orders Only Sivan Martinez RN Ma ternal- Medicine at [facility] Comment on above: Hypertension affecti ng in second trimester; 16 weeks gestation of ; Dichorionic diamniotic twin in second trimester Start: 02-26-2023 End: 02-26-2023 ambulatory NIGEL ZACARIAS Not Available Start: 02-24-2023 Telephone encounter Sangita Thomas RN [facility] [place] Start: 02-07-2023 End: 02-07-2023 ambulatory [facility] Start: 02-07-2023 End: 02-07-2023 Office consultation new/estab patient 60 min Tatiana Yap MD Work Phone: [facility] [place] Comment on above: Hypertension affecti ng in second trimester (Primary Dx); 16 weeks gestation of ; Dichorionic diamniotic twin in second trimester; H/O gastric sleeve Start: 02-05-2023 End: 02-05-2023 ambulatory NIGEL ZACARIAS Not Available Start: 02-05-2023 Chart abstracting Tatiana Yap MD Work Phone: [facility] [place] Start: 02-04-2023 End: 02-04-2023 ambulatory MARGOT G YAW Not Available Start: 01-15-2023 End: 01-15-2023 ambulatory NIGEL ZACARIAS Not Available Start: 01-07-2023 End: 01-07-2023 ambulatory MARGOT G YAW Not Available Start: 12-20-2022 End: 12-21-2022 ambulatory NIGEL ZACARIAS Not Available Start: 10-12-2022 End: 10-12-2022 ambulatory Lilia Daugherty Other [employer] Other Start: 10-12-2022 Office outpatient vi sit 15 minutes Lilia Daugherty [facility] Start: 09-11-2022 End: 09-11-2022 ambulatory [facility] Start: 02-10-2022 End: 02-10-2022 ambulatory Ale Shields Other [employer] Other Start: 02-10-2022 Telephone encounter Ale Shields [facility] [address] Start: 02-08-2022 End: 02-08-2022 ambulatory Ale Shields Facility:[facility] Start: 02-08-2022 End: 02-08-2022 ambulatory LAURA Shields Work Phone: [facility] Work Phone: Start: 02-08-2022 End: 02-08-2022 Departed [employer] RESOURCE DEVELOPMENT MANAGER Ale Shields Work Phone: [facility] [place] Work Phone: Start: 01-08-2022 End: 01-09-[address] JAMEEL BURGOS Facility:[facility] Start: 12-31-2021 End: 01-01-[address] JAMEEL BURGOS Facility:[facility] Start: 11-28-2021 End: 11-28-2021 ambulatory None Provider Facility:[facility] Start: 11-28-2021 End: 11-29-[address] JAMEEL BURGOS Facility:[facility] Start: 11-22-2021 End: 11-23-2021 ambulatory NONE LISTED REQUEST Facility:[facility] Start: 10-17-2021 End: 10-18-[address] XIAO LISTED REQUEST Facility: Start: 08-03-2021 End: 08-04-[address] JAMEEL BURGOS Facility:[facility] Start: 05-16-2021 End: 05-17-2021 Evaluation and management of inpatient Patricia Curry DO Work Phone: [facility] Comment on above: Post-op pain (Primar y Dx) Start: 05-14-2021 End: 05-19-2021 ambulatory [facility] Start: 05-02-2021 End: 05-06-2021 Subsequent hospital visit by physician Dw[facility] Pat Rm 1 [facility] Pre-Admit Testing Start: 12-04-2020 End: 12-09-2020 ambulatory CYN OKEEFE [facility] Start: 12-04-2020 Office outpatient vi sit 15 minutes Ale Ginty [facility] Start: 10-20-2020 End: 10-20-2020 Subsequent hospital visit by physician Patricia Curry DO Work Phone: [facility] [place] Start: 09-06-2020 End: 09-07-2020 ambulatory IKE ANGEL [facility] Start: 09-06-2020 End: 09-06-2020 Subsequent hospital visit by physician Henrietta [facility] Rm 1 [facility] Comment on above: LYNN (obstructive sle ep apnea) Start: 05-28-2017 End: 05-29-2017 Ambulatory Neo Anderson Facility:[id number] Procedures Date Procedure Procedure Detail Performing Clinician Start: 03-24-2023 [facility] UA (CLEAN/CATCH) CLINICAL DATA PROGRAMMER/MICRO IF IND. Nigel Higginso DO Work Phone: Start: 03-19-2023 Urnls dip [...] Phone: Start: 12-20-2022 TYPE AND SCREEN Nigel Higginso DO Work Phone: Start: 12-20-2022 ULTRASOUND OFFICE Nigel Adames DO Work Phone: Start: 05-17-2021 Basic metabolic pane l calcium total Patricia Huertaton DO Work Phone: Start: 05-16-2021 SURGICAL PATHOLOGY REPORT Patricia Curry DO Work Phone: Start: 05-16-2021 Basic metabolic pane l calcium total Patricia Curry DO Work Phone: Start: 05-16-2021 End: 05-16-2021 Laps gstrc rstrictiv px longitudinal gastrectomy Patricia Curry DO Work Phone: Start: 05-16-2021 Glucose blood reagen t strip Patricia Curry DO Work Phone: Start: 05-16-2021 Urine test visual color cmprsn meths Patricia Rucker [employer] Work Phone: Start: 05-02-2021 Assay of nicotine Sim Rucker [employer] Work Phone: Start: 05-02-2021 Basic metabolic pane l calcium total Patricia Rucker [employer] Work Phone: Start: 05-02-2021 Radiologic exam ches t 2 views Patricia Rucker [employer] Work Phone: Start: 05-02-2021 Ecg routine ecg w/le ast 12 lds i&r only Patricia Rucker [employer] Work Phone: Start: 06-14-2020 Microscopic observat ion [Identifier] in Cervix by Cyto stain Tatiana Yap MD Work Phone: Plan of Treatment Date Care Activity Detail Author Start: 03-05-2024 Adult BMI Screening Adult BMI Screen ing [employer] Start: 03-05-2024 [facility] Start: 03-05-2024 End: 03-05-2024 US MFM with or without consult US MFM with or without consult Imaging Routine Hypertension affecting in second trimester Dichorionic diamniotic twin in second trimester Expected: 03/05/2024 (Approximate), Expires: 03/05/2024 [employer] Work Phone: Comment on above: Expected: 03/05/2024 (Approximate), Expires: 03/05/2024 Start: 02-08-2024 Adult [facility] Screening [facility] Start: 02-08-2024 Tobacco Screening [facility] Start: 01-04-2024 Adult BMI Screening Adult BMI Screen ing [employer] Start: 01-04-2024 Tobacco Screening [facility] Screening [facility] Start: 08-11-2023 DTaP,Tdap and Td Vaccines (7 - Td or Tdap) DTaP,Tdap and Td Vaccines (7 - Td or Tdap) [facility] Start: 08-11-2023 DTaP/Tdap/Td vaccine (7 - Td or Tdap) DTaP/Tdap/Td vaccine (7 - Td or Tdap) [facility] Start: 08-10-2023 Influenza vaccination Influenza Vacc ine (#1) [facility] Comment on above: Postponed from 10/11 (Patient Refused) Start: 06-15-2023 Screening for malign ant neoplasm of cervix Pap Smear [facility] Start: 04-10-2023 End: 04-10-2023 Patient encounter procedure [facility] [place] Start: 03-19-2023 End: 03-19-2024 CBC panel - Blood by Automated count CBC Lab Routine Diabetes mellitus screening Expected: 03/19/2023 (Approximate), Expires: 03/19/2024 [facility] Work Phone: Comment on above: Expected: 03/19/2023 (Approximate), Expires: 03/19/2024 Start: 03-19-2023 End: 03-19-2024 Measurement of glucose 1 hour after glucose challenge for glucose tolerance test Glucose tolerance, 1 hour Lab Routine Diabetes mellitus screening Expected: 03/19/2023 (Approximate), Expires: 03/19/2024 [facility] Comment on above: Expected: 03/19/2023 (Approximate), Expires: 03/19/2024 Start: 03-05-2023 End: 03-05-2023 Patient encounter procedure 03/05/2023 11:30 AM EST Office Visit Maternal- Medicine at [facility] [address] [place] [address] Karoline Hopson MD [address] [place] [address] Maternal- Medicine at [facility] Start: 03-05-2023 End: 03-05-2023 Patient encounter procedure 03/05/2023 9:30 AM EST Appointment [facility] - [facility] [address] [place] [address] [facility] - [facility] Start: 02-07-2023 End: 02-07-2023 Patient encounter procedure [facility] [place] Start: 10-11-2022 Influenza vaccination Influenza Vacc ine [facility] Start: 09-19-2022 Adult BMI Follow Up Plan Adult BMI Follow Up Plan [facility] Start: 02-08-2022 Bacteria identified in Urine by Culture Urine Culture [facility] Start: 01-08-2022 Hemoglobin A1c measurement A1C test (Diabetic or Prediabetic) [facility] Start: 10-11-2021 Influenza vaccination Flu vacc ine (Season Ended) [facility] Start: 07-14-2021 Hemoglobin A1c measurement A1C test (Diabetic or Prediabetic) [facility] Work Phone: Start: 06-18-2021 End: 06-18-2021 Patient encounter procedure 06/18/2021 Office Visit Bariatrics Deann Navarro, RESOURCE DEVELOPMENT MANAGER - MULTIMEDIA PRODUCTION ASSISTANT [address] [place] [address] [facility] Start: 05-24-2021 End: 05-24-2021 Patient encounter procedure 05/24/2021 Office Visit Bariatrics Patricia Curry DO [address] [place] [address] [facility] Invasive Bariatric Surg Start: 05-16-2021 End: 05-16-2021 Admission to same day surgery center 05/16/2021 Surgery IP Unit Patricia Curry DO [address] [place] [address] XI ROBOTIC LAPAROSCOPIC GASTRECTOMY SLEEVE , LIVER BIOPSY, EGD- GI SCHEDULED [facility] Comment on above: XI ROBOTIC LAPAROSCO PIC GASTRECTOMY SLEEVE , LIVER BIOPSY, EGD- GI SCHEDULED Start: 05-16-2021 End: 05-16-2021 Laps gstrc rstrictiv px longitudinal gastrectomy GASTRECTOMY SLEEVE LAPAROSCOPIC ROBOTIC MORBID OBESITY, OBSTRUCTIVE SLEEP APNEA, GERD 05/16/2021 7:10 AM EDT [facility] Start: 05-16-2021 Subsequent hospital visit by physician 05/16/2021 Hospital Encounter IP Unit Patricia Curry DO [address] [place] [address] [facility] Start: 05-13-2021 End: 05-13-2021 Patient encounter procedure 05/13/2021 Appointment Pre-Admission Testing [facility] PRE ADMIT Start: 05-10-2021 End: 05-10-2021 Patient encounter procedure 05/10/2021 Office Visit Bariatrics Patricia Curry DO [address] [facility] [address] [place] [address] [facility] Invasive Bariatric Surg Start: 11-22-2020 End: 11-22-2020 Nursing evaluation of patient and report 11/22/2020 Nurse Only Bariatrics [facility] Invasive Bariatric Surg Start: 11-06-2020 End: 11-06-2020 Patient encounter procedure [facility] Start: 11-03-2020 End: 11-03-2020 Patient encounter procedure 11/03/2020 Office Visit BariatricDeann Roca, RESOURCE DEVELOPMENT MANAGER - MULTIMEDIA PRODUCTION ASSISTANT [address] [facility] [facility] [address] [address] [place] [id number] [facility] Start: 10-11-2020 Influenza vaccination Flu vaccine (# 1) [facility] Start: 09-28-2020 End: 09-28-2020 Patient encounter procedure 09/28/2020 Office Visit BariatricDeann Roca, RESOURCE DEVELOPMENT MANAGER - MULTIMEDIA PRODUCTION ASSISTANT [address] [facility] [facility] [address] [address] [place] [phone] [facility] Start: 09-01-2015 Screening for malign ant neoplasm of cervix [facility] Start: 2009 HIV screening HIV screen [facility] Start: 2006 COVID-19 Vaccine (1) COVID-19 Vaccin e (1) [facility] Work Phone: Start: 2006 Depression Screen Depression Screen [facility] Start: 2006 Depression Screening Depression Scre ening [facility] Start: 2005 HPV vaccine (1 - 2-d ose series) HPV vaccine (1 - 2-dose series) [facility] Start: 2000 Pneumococcal 0-64 ye ars Vaccine (1 of 2 - PPSV23) Pneumococcal 0-64 years Vaccine (1 of 2 - PPSV23) [facility] Work Phone: Start: 09-01-1999 COVID-19 Vaccine (1) COVID-19 Vaccin e (1) [facility] Start: 09-01-1995 Varicella vaccine (1 of 2 - 2-dose childhood series) Varicella vaccine (1 of 2 - 2-dose childhood series) [facility] Start: 1994 Hepatitis C screening Hepatitis C sc reen [facility] End: 09-06-2020 Baseline Diagnostic Sleep Study Baseline Diagnostic Sleep Study Sleep Center Routine LYNN (obstructive sleep apnea) 1 Occurrences starting 09/06/2020 until 09/06/2020 [facility] Work Phone: Comment on above: 1 Occurrences starti ng 09/06/2020 until 09/06/2020 End: 02-08-2024 Calcium [Mass/volume] in Serum or Plasma Calcium Lab Routine 16 weeks gestation of H/O gastric sleeve 1 Occurrences starting 02/07/2023 until 02/08/2024 [facility] Comment on above: 1 Occurrences starti ng 02/07/2023 until 02/08/2024 End: 02-08-2024 CBC panel - Blood by Automated count CBC without diff Lab Routine Hypertension affecting in second trimester 16 weeks gestation of Dichorionic diamniotic twin in second trimester 1 Occurrences starting 02/07/2023 until 02/08/2024 [facility] Work Phone: Comment on above: 1 Occurrences starti ng 02/07/2023 until 02/08/2024 End: 02-08-2024 Comprehensive metabolic 2000 panel - Serum or Plasma Comprehensive metabolic panel Lab Routine Hypertension affecting in second trimester 16 weeks gestation of Dichorionic diamniotic twin in second trimester 1 Occurrences starting 02/07/2023 until 02/08/2024 [facility] 1 Occurrences starti ng 02/07/2023 until 02/08/2024 Continuous pulse oximetry Pulse oximetry, continuous Respiratory Care Routine Every 4hr until discontinued starting 05/16/2021 appening Phone: Comment on above: Every 4hr until disc ontinued starting 05/16/2021 End: 02-08-2024 Cyanocobalamin vitamin b-12 Vitamin B12 Lab Routine 16 weeks gestation of H/O gastric sleeve 1 Occurrences starting 02/07/2023 until 02/08/2024 [facility] Occurrences starti ng 02/07/2023 until 02/08/2024 End: 02-08-2024 ECG 12 lead ECG 12 lead ECG Routine Hypertension affecting in second trimester 16 weeks gestation of Dichorionic diamniotic twin in second trimester 1 Occurrences starting 02/07/2023 until 02/08/2024 [facility] Comment on above: 1 Occurrences starti ng 02/07/2023 until 02/08/2024 End: 02-08-2024 Folate Folate Lab Routine 16 weeks gestation of H/O gastric sleeve 1 Occurrences starting 02/07/2023 until 02/08/2024 [facility] Comment on above: 1 Occurrences starti ng 02/07/2023 until 02/08/2024 End: 02-08-2024 Iron and TIBC Iron and TIBC Lab Routine 16 weeks gestation of H/O gastric sleeve 1 Occurrences starting 02/07/2023 until 02/08/2024 [facility] Comment on above: 1 Occurrences starti ng 02/07/2023 until 02/08/2024 End: 02-08-2024 LDH LDH Lab Routine Hypertension affecting in second trimester 16 weeks gestation of Dichorionic diamniotic twin in second trimester 1 Occurrences starting 02/07/2023 until 02/08/2024 [facility] Comment on above: 1 Occurrences starti ng 02/07/2023 until 02/08/2024 End: 02-08-2024 Natriuretic peptide B [Mass/volume] in Blood B-type natriuretic peptide Lab Routine Hypertension affecting in second trimester 16 weeks gestation of Dichorionic diamniotic twin in second trimester 1 Occurrences starting 02/07/2023 until 02/08/2024 [facility] Comment on above: 1 Occurrences starti ng 02/07/2023 until 02/08/2024 Oxygen therapy [[facility] Data Set] Initiate Oxygen Therapy Protocol Respiratory Care Routine As Needed until discontinued starting 05/16/2021 appening Phone: Comment on above: As Needed until disc ontinued starting 05/16/2021 End: 02-08-2024 Protein creat ratio Protein creat ratio Lab Routine Hypertension affecting in second trimester 16 weeks gestation of Dichorionic diamniotic twin in second trimester 1 Occurrences starting 02/07/2023 until 02/08/2024 [facility] Comment on above: 1 Occurrences starti ng 02/07/2023 until 02/08/2024 End: 02-08-2024 Protein, urine, 24 hour Protein, urine, 24 hour Lab Routine Hypertension affecting in second trimester 16 weeks gestation of Dichorionic diamniotic twin in second trimester 1 Occurrences starting 02/07/2023 until 02/08/2024 [facility] Comment on above: 1 Occurrences starti ng 02/07/2023 until 02/08/2024 Spirometry panel Incentive isiah metry Respiratory Care Routine Every 2hr while awake until discontinued starting 05/16/2021 appening Phone: Comment on above: Every 2hr while awak e until discontinued starting 05/16/2021 Surgical Pathology Surgical Path ology Lab Routine Release Upon Ordering for 1 Occurrences starting 05/16/2021 appening Phone: Comment on above: Release Upon Orderin g for 1 Occurrences starting 05/16/2021 End: 02-08-2024 Thiamin Vitamin B1, whole blood Thiamin Vitamin B1, whole blood Lab Routine 16 weeks gestation of H/O gastric sleeve 1 Occurrences starting 02/07/2023 until 02/08/2024 [facility] Comment on above: 1 Occurrences starti ng 02/07/2023 until 02/08/2024 End: 02-08-2024 Urate [Mass/volume] in Serum or Plasma Uric acid Lab Routine Hypertension affecting in second trimester 16 weeks gestation of Dichorionic diamniotic twin in second trimester 1 Occurrences starting 02/07/2023 until 02/08/2024 [facility] Comment on above: 1 Occurrences starti ng 02/07/2023 until 02/08/2024 End: 02-08-2024 Vitamin D 25 hydroxy Vitamin D 25 hydroxy Lab Routine 16 weeks gestation of H/O gastric sleeve 1 Occurrences starting 02/07/2023 until 02/08/2024 [facility] Comment on above: 1 Occurrences starti ng 02/07/2023 until 02/08/2024 Immunizations Immunization Date Immunization Notes Care Provider Fa [facility] 11-12-2016 tuberculin skin test ; purified protein derivative solution, intradermal Tatiana Yap MD Work Phone: [facility] 08-10-2013 tetanus toxoid, redu yemi diphtheria toxoid, and acellular pertussis vaccine, adsorbed Tatiana Yap MD Work Phone: [facility] 10-03-1999 diphtheria, tetanus toxoids and acellular pertussis vaccine Tatiana Yap MD Work Phone: [facility] 10-03-1999 diphtheria, tetanus toxoids and acellular pertussis vaccine, unspecified formulation Eloise BURROUGHS Work Phone: [facility] 10-03-1999 hepatitis B vaccine, pediatric or pediatric/adolescent dosage Tatiana Yap MD Work Phone: [facility] 10-03-1999 measles, mumps and rubella virus vaccine Tatiana Yap MD Work Phone: [facility] 10-03-1999 poliovirus vaccine, inactivated Tatiana Yap MD Work Phone: [facility] 01-14-1996 diphtheria, tetanus toxoids and acellular pertussis vaccine Tatiana Yap MD Work Phone: [facility] 01-14-1996 diphtheria, tetanus toxoids and pertussis vaccine Eloise BURROUGHS Work Phone: [facility] 01-14-1996 haemophilus influenz ae type b vaccine, conjugate unspecified formulation Tatiana aYp MD Work Phone: [facility] 01-14-1996 measles, mumps and rubella virus vaccine Tatiana Yap MD Work Phone: [facility] 05-21-1995 diphtheria, tetanus toxoids and acellular pertussis vaccine Tatiana Yap MD Work Phone: [facility] 05-21-1995 DTP-Haemophilus influenzae type b conjugate vaccine Eloise BURROUGHS Work Phone: [facility] 05-21-1995 haemophilus influenz ae type b vaccine, conjugate unspecified formulation Tatiana Yap MD Work Phone: [facility] 05-21-1995 poliovirus vaccine, inactivated Tatiana aYp MD Work Phone: [facility] 05-21-1995 trivalent poliovirus vaccine, live, oral Eloise BURROUGHS Work Phone: [facility] 02-21-1995 diphtheria, tetanus toxoids and acellular pertussis vaccine Tatiana Yap MD Work Phone: [facility] 02-21-1995 DTP-Haemophilus influenzae type b conjugate vaccine Eloise BURROUGHS Work Phone: [facility] 02-21-1995 haemophilus influenz ae type b vaccine, conjugate unspecified formulation Tatiana Yap MD Work Phone: [facility] 02-21-1995 hepatitis B vaccine, pediatric or pediatric/adolescent dosage Tatiana Yap MD Work Phone: [facility] 02-21-1995 poliovirus vaccine, inactivated Tatiana Yap MD Work Phone: [facility] 02-21-1995 trivalent poliovirus vaccine, live, oral Eloise BURROUGHS Work Phone: [facility] 1994 diphtheria, tetanus toxoids and acellular pertussis vaccine Tatiana Yap MD Work Phone: [facility] 1994 DTP-Haemophilus influenzae type b conjugate vaccine Eloise BURROUGHS Work Phone: [facility] 1994 haemophilus influenz ae type b vaccine, conjugate unspecified formulation Tatiana Yap MD Work Phone: [facility] 1994 hepatitis B vaccine, pediatric or pediatric/adolescent dosage Tatiana Yap MD Work Phone: [facility] 1994 poliovirus vaccine, inactivated Tatiana Yap MD Work Phone: [facility] 1994 trivalent poliovirus vaccine, live, oral Eloise BURROUGHS Work Phone: [facility] 1994 hepatitis B vaccine, pediatric or pediatric/adolescent dosage Tatiana Yap MD Work Phone: [facility] Payers Date Payer Category Payer Medicaid [id number] 2022 Medicaid [id number] 2022 Self-pay 2019 Unknown [id number] [id number]. [id number] 1994 Unknown [id number] 2.16.840.1.901014.3.579.2. 173 1994 Unknown [id number] 2.16.840.1.145627.3.579.2. 173 1994 Unknown [id number] 2.16.840.1.155991.3.579.2. 173 1994 Unknown [id number] 2.16.840.1.519179.3.579.2. 593 1994 Unknown [id number] 2.16.840.1.489739.3.579.2. 593 1994 Unknown [id number] 2.16.840.1.903160.3.579.2. 593 1994 Unknown [id number] 2.16.840.1.486022.3.579.2. 593 1994 Unknown [id number] 2.16.840.1.622445.3.579.2. 593 1994 Unknown [id number] 2.16.840.1.138010.3.579.2. 593 1994 Unknown [id number] 2.16.840.1.726433.3.579.2. 175 1994 Unknown [id number] 2.16.840.1.506439.3.579.2. 128 1994 Unknown [id number] 2.16.840.1.668290.3.579.2. 128 1994 Unknown [id number] 2.16.840.1.200346.3.579.2. 128 1994 Unknown [id number] 2.16.840.1.809171.3.579.2. 1285 1994 Unknown [id number] 2.16.840.1.068909.3.579.2. 128 1994 Unknown [id number] 2.16.840.1.258504.3.579.2. 1258 1994 Unknown [id number] 2.16.840.1.779080.3.579.2. 1258 1994 Unknown [id number] 2.16.840.1.515208.3.579.2. 9 1994 Unknown [id number] 2.16.840.1.992394.3.579.2. 1258 1994 Unknown [id number] 2.16.840.1.059468.3.579.2. 1259 1994 Unknown [id number] 2.16.840.1.612910.3.579.2. 1258 1994 Unknown [id number] 2.16.840.1.235730.3.579.2. 1258 1994 Unknown [id number] 2.16.840.1.755851.3.579.2. 1259 1959 Private Health Insurance [id number] 1.2.840.914427.1.13.239.2. 7.3.103645.315 Private Health Insurance [facility] [id number] Unknown [id number] 2.16.840.1.966287.3.579.2. 531 Social History Date Type Detail Facility Start: 09-01-2020 End: 09-28-2020 Tobacco smoking status [facility] Current every day smoker appening Phone: Start: 09-01-2020 End: 07-03-2022 Cigarettes smoked current (pack per day) - Reported [facility] Start: 09-01-2020 End: 07-03-2022 Tobacco use and exposure Never used appening Phone: Start: 09-01-2020 End: 09-28-2020 Alcohol intake Current drinker of alcohol (finding) appening Phone: Start: 12-23-2019 Alcohol Comment weekly appening Phone: Start: 1995 Sex Assigned At Not on file appening Phone: Start: 04-22-2021 End: 05-16-2021 Exposure to SARS-CoV-2 (event) Not sure [facility] Exposure to SARS-CoV -2 (event) Yes [facility] Start: 01-19-2021 End: 07-03-2022 Tobacco smoking status [facility] Ex-smoker [facility] Start: 02-11-2008 End: 11-19-2020 History of tobacco use Current smoker appening Phone: Start: 05-02-2021 End: 02-26-2023 Alcohol intake Ex-drinker (finding) appening Phone: Start: 08-17-2018 End: 07-03-2022 [facility] 1995 [facility] Assigned At Female [facility] Start: 02-11-2008 End: 02-11-2020 History of tobacco use Cigarette Smoker [facility] History of tobacco use Tobacco U se Types Packs/Day Years Used Date Smoking Tobacco: Former Cigarettes Quit: 2020 Vaping/E-cigarettes Smokeless Tobacco: Former Quit: 11/06/2020 [facility] Start: 02-05-2023 Tobacco use and exposure Former smokeless tobacco user [facility] End: 11-06-2020 History of tobacco use User of smokeless tobacco [facility] Frequency of Communication with Friends and Family More than three times a week [facility] Start: 08-17-2018 Education 12 [facility] Start: 05-18-2022 Alcohol Comment social, every other weekend [facility] Start: 10-31-2022 [facility] Within the last year , have [...] Narrative Reason for Appointment: Patient ID: Fina Velásquez is a 27 y.o. female who presents [...] of: HEIKE Meeks documented in this encounter [facility] 03-05-2023 History of Presen t illness Narrative Headache/epigastric pain/blurry vision/swelling? No Cramping/contractions? No Abnormal vaginal discharge? No Spotting or vaginal bleeding? No Loss of fluid like your water may have broken? No Recent ER visits or hospitalizations? Patient reports visit to [place] approximately two weeks ago to r/o ROM Any concerns that you would like me to mention to the provider today? No REASON FOR OFFICE VISIT: Dichorionic diamniotic twin gestation. HISTORY OF PRESENT ILLNESS: Fina Velásquez is a pleasant 27 y.o. G 5p [...] you for allowing me to participate in [facility]. If there are any questions, please do not hesitate to call me. Sincerely, KAROLINE HOPSON MD documented in this encounter [facility] 02-24-2023 Miscellaneous Notes Incoming telephone call from patient with concerns of leakage of fluid. Patient called in and stated that she is Leaking clear fluid and has been. Credit Assessment Analyst asked if she had spoken to her OB provider and she said that she had, but they told her that she is basically too early to be leaking any fluid. Credit Assessment Analyst recommended patient present to the nearest emergency room to be evaluated. Patient verbalized understanding and had no further questions. documented in this encounter [facility] 02-24-2023 Telephone encounter Note Incoming telephone call from patient with concerns of leakage of fluid. Patient called in and stated that she is Leaking clear fluid and has been. Credit Assessment Analyst asked if she had spoken to her OB provider and she said that she had, but they told her that she is basically too early to be leaking any fluid. Credit Assessment Analyst recommended patient present to the nearest emergency room to be evaluated. Patient verbalized understanding and had no further questions. [facility] 02-07-2023 History of Presen t illness Narrative Headache/epigastric pain/blurry vision/swelling? Occasional headaches Cramping/contractions? No Abnormal vaginal discharge? No Spotting/vaginal bleeding? No Loss of fluid like your water may have broken? No Cats in the home? No Do you change the litter box? No Flu vaccine? No Genetic testing done this here or other office? Yes Have you been seen here at [facility] in a previous ? No Recent ER visits or hospitalizations? No Bring blood sugar log or meter with you today? (Please bring them with you for every visit at [facility]) N/A Traveled outside the country in [...] TESTS AND ULTRASOUND REPORTS: Referral records and [facility] chart were reviewed Pertinent Ultrasound findings [...] - 1.00 mg/dL Final METHOD TRACEABLE TO IDKY STANDARD Glucose 01/03/2023 71 65 - 99 [...] operators who are performing tests using either [employer] or [employer] systems and is limited to laboratories that [...] repeat. Fact Sheet for Healthcare Providers: https://www.f da.gov/media/860362/download Fact Sheet for Patients: https://www.fda.gov/media/689167 /download HABITS: Patient activity no restrictions, diet no restrictions PHYSICAL EXAMINATION: BP 126/83 Pulse 76 Ht 170.2 cm (5' 7 ) Wt 98.9 kg (218 lb) LMP 10/17/2022 BMI 34.14 kg/m Well-appearing in no distress. Respirations not labored, speaking comfortably in full sentences Gravid abdomen OVERALL ASSESSMENT -Fina Velásquez is a pleasant 27 y.o. at [...] a but with an anticipation of excellent alf outcomes. In regards to the spontaneous processes, [...] previously recommended threshold of 160/110. Reference: PMID: [id number], 2021. Blood pressures do increase as progresses [...] preeclampsia prevention as is recommended by the [place] [employer]ne[employer] Committee Opinion No. 743. [...] aspirin vs 10.3% no aspirin, p=0.45) (PMBID: [id number]). Given well-established benefits baby aspirin for the prevention of preeclampsia, I recommend initiating baby aspirin even in the setting of history of Joe-en-Y surgery. Micronutrient Dosing Recommendations: Calcium: recommend 1000-1200mg daily; if deficient, recommend 1800-50548 mg PO daily in divided doses Vitamin [...] sooner if clinically indicated Follow up in [facility] in 4 weeks for anatomy and clinic follow-up DISPOSITION: At this point the patient is in complete care of her loan associate. Patient does have ultrasound and office visit scheduled with us. Thank you for allowing me to participate in the care of Fina Velásquez. If there any questions please do not hesitate to contact us. Total time spent was 43 minutes: Preparing to see the patient (e.g., review of tests) Obtaining and/or reviewing separately obtained history Performing a medically appropriate examination and/or evaluation Counseling and educating the patient/family/caregiver Ordering medications, tests, or procedures Referring and communicating with other health respite care provider (not separately reported) Documenting clinical information in the electronic or other health record Tatiana Yap MD Maternal- Medicine [facility] [address] [place] [id number] [facility], the CDC, and other organizations representing maternal and public health professionals recommend that , , and lactating people and those considering receive the COVID-19 vaccination. Vaccination is the best method to reduce maternal and complications of SARS-CoV-2 infection. This document was created with [employer] technology. Though I make every effort to review the dictation as it is transcribed, on occasion the spoken word can be misinterpreted by the technology leading to inappropriate words, phrases, or sentences. This note is addressed to the requesting provider as a consultation for clinical guidance. Specific medical abbreviations are occasionally used and those are generally approved by the [place]?Board of?Obstetrics and?Gynecology?as well as?[place] s abbreviations. The above plan of care was based solely on the diagnoses for which a consultation was requested. ?More frequent testing may be indicated based on her other medical/obstetrical conditions. The management of other or medical conditions is beyond the scope of requested consultation and will continue to be followed by the primary loan associate or primary care provider. Note to patient: [...] of the practitioner. documented in this encounter [facility] 10-12-2022 Evaluation note Encounter Date Diagnosis [...] take Sudafed and/or Mucinex for congestion. Take [id number] er Robitussin or Delsym for cough. Follow-up with your family physician if no improvement in 2 to 3 days. Off work tomorrow. Oct, Cough (ICD-10 - R05.9) Oct, Bronchitis (ICD-10 - J40) Acute bronchitis material was printed [employer] Other 10-19-2022 NotePatient Education Materials [id number] History of Present illness Narrative* Payal Richardson [...] and patient voices understanding documented in this [facility] HospitalTogethera Phone: [phone]) 656-649804-07-2022 Hospital Discharge instructions* Instructions* Hannah Zavaleta, RN - 05/17/2021 Discharge Instructions for Bariatric Surgery You had a Laparoscopic Sleeve Gastrectomy (03421) surgery to treat obesity. Recovery from this [...] scheduled appointment, please call the office at [phone]. Call Your Doctor If Any of the [...] sent through Care Everywhere. * Enoxaparin (Lovenox) (Nicaraguan) * Video: How to Give Yourself an Anticoagulant (Blood Thinner) Shot (Nicaraguan) [facility] Phone: [phone]) 347-299703-23-2022 Hospital Discharge instructions* Instructions* Kendal Wilhelm APRN [...] Surgery/Procedure As a patient at [facility] you can expect quality medical and nursing care that is centered on your individual needs. Our goal is to make your surgical experience as comfortableas possible Directions to the Surgery Center The surgery Center at [facility] is located in the Emergency Room parking lot on [address] or there is additional parking across the street. The address is [address] [place] [address]. Please check in at the Surgery Center [...] on the day of surgery please contact [phone] or [phone] If you have any other questions regarding your procedure/surgery please call your surgeon's office. [facility] Phone: [phone] History of Present illness Narrative* Eloise Chi RN - 05/02/2021 11:00 AM EDT Obtained medical clearance for OR on 05/16/2021. * Kendalblake Wilhelm APRN - MULTIMEDIA PRODUCTION ASSISTANT - 05/02/2021 11:00 AM EDT Anesthesia Focused [...] syndrome) Under care of team 05/02/2021 pcp-Dr MelgozaSkfkys-vkyfajt-ieey visit april 2021 Patient was evaluated in PAT & anesthesia guidelines were applied. NPO guidelines, medication instructions and scheduled arrival time were reviewed with patient. Anesthesia contacted: no Medical or cardiac clearance ordered: no, medical clearance obtained. LAURA Garcia CNP 05/02/21 11:53 AM documented in this encounterappening Phone: [phone] Evaluation note* Encounter Date Diagnosis Assessment Notes Treatment Notes Treatment Clinical Notes Nov, Contact with and (suspected) exposure to other viral communicable diseases (ICD-10 - Z20.828) Nov, Viral URI with cough (ICD-10 - J06.9) No COVID test completed at this time. Advised patient that will tx as viral URI. Supportive care as directed, increase fluids and rest, Tylenol/Motrin as directed, rx of [place] and Flonase as directed, cool mist humidifier, [...] Patient care instructions given in writting by [facility] Care At Home document [employer] Other Evaluation note* Diagnosis LYNN (obstructive sleep apnea) Obstructive sleep apnea (adult) (pediatric) documented in this encounter appening Phone: evaluation note* Diagnosis S/P laparoscopic sleeve gastrectomy- Primary Post-op pain Other acute postoperative pain documented in this encounter appening Phone: evaluation noteNo assessment information available [facility] Work Phone: Evaluation noteNo InformationNort Data Maid Other Evaluation note* Diagnosis Hypertension affecting in second trimester- Primary 16 weeks gestation of Dichorionic diamniotic twin in second trimester H/O gastric sleeve [facility] Thirsty System[facility]* Diagnosis Hypertension affecting in second trimester 16 weeks gestation of Dichorionic diamniotic twin in second trimester documented in this [facility] Misfit WearablesEvaluation note* Diagnosis Hypertension affecting in second trimester- Primary Dichorionic diamniotic twin in second trimester [facility] encounter [facility]* Diagnosis History of sleeve gastrectomy- Primary History of induced hypertension documented in this [facility]* Diagnosis Second trimester state, incidental Diabetes mellitus screening Screening for diabetes mellitus documented in this encounter [facility] Narrative - Reported* Type Description Date Medical History METABOLIC SYNDROME Medical History SYNCOPE Medical History anxiety Surgical History WISDOM TEETH Surgical History TONSILECTOMY Surgical History ENDOSCOPY AND COLONSCOPY Surgical History C section Hospitalization History see above [employer] Other Hisqdka general Narrative - Reported* Type Description Date Medical History METABOLIC SYNDROME Medical History SYNCOPE Medical History anxiety Surgical History WISDOM TEETH Surgical History TONSILECTOMY Surgical History ENDOSCOPY AND COLONSCOPY Surgical History C section Surgical History gastric sleeve Hospitalization History see above [employer] Other Hisfgwm general Narrative - Reported* Type Description Date Medical History METABOLIC SYNDROME Medical History SYNCOPE Medical History anxiety Surgical History WISDOM TEETH Surgical History TONSILECTOMY Surgical History ENDOSCOPY AND COLONSCOPY Surgical History C section Surgical History gastric sleeve Surgical History cholcystectomy 09/10/2022 Hospitalization History see above [employer] Other InstructionsNot on filedocumented in this encounter [facility] filedocumented in this encounter [facility]Not on filedocumented in this encounter [facility]Not on filedocumented in this encounter [facility] System[facility]ructionsNot on filedocumented in this encounter [facility] SystemReason for [facility] Narrative* Auth/Cert Specialty Diagnoses / Procedures Referred By Cristal t Referred To Contact Diagnoses Morbid obesity (HCC) Obstructive sleep apnea GERD (gastroesophageal reflux disease) MORBID OBESITY, OBSTRUCTIVE SLEEP APNEA, GERD Procedures AL LAP, JAY RESTRICT PROC, LONGITUDINAL GASTRECTOMY XI ROBOTIC LAPAROSCOPIC GASTRECTOMY SLEEVE , LIVER BIOPSY, EGD- GI SCHEDULED Patricia Curry DO [address] [place] [address] [employer] [address] [place] [address] Referral ID Status Reason Start Date Expiration Date Visits Re quested Visits Authorized [id number] 1 1 appening Phone: Summary Purpose Family History No Family [...] Diagnostic Sleep Study Ike Ortiz MD [address] [facility] [address] [place] [address] Specialty Diagnoses / Procedures Referred By Cristal t Referred To Contact Diagnoses Hypertension affecting in second trimester 16 weeks gestation of Dichorionic diamniotic twin in second trimester Procedures ECG 12 lead Tatiana Yap MD [address] [place] [address] Referral ID Status Reason Start Date Expiration Date V isits Requested Visits Authorized [id number] Pending Review 02/07/2023 02/07/2024 1 1 Specialty Diagnoses / Procedures Referred By Contac t Referred To Contact Maternal and Medicine Diagnoses Hypertension affecting in second trimester Dichorionic diamniotic twin in second trimester Procedures US MFM with or without consult Karoline Hopson MD [address] [place] [address] [facility] [address] [place] [address] Referral ID Status Reason Start Date Expiration Date V isits Requested Visits Authorized [id number] Pending Review 03/05/2023 03/04/2024 1 1 Chief Complaint and Reason for Visit Chief Complaint Dysuria Additional Source Comments INFORMATION SOURCE (unrecogn ized section and content) DATE CREATED AUTHOR 07/31/2017 [facility] DATE CREATED AUTHOR AUTHOR'S ORGANIZ ATION 05/21/2021 [facility] DATE CREATED AUTHOR AUTHOR'S ORGANIZ ATION 12/03/2021 [facility] DATE CREATED AUTHOR AUTHOR'S ORGANIZ ATION 01/12/2022 [facility] DATE CREATED AUTHOR AUTHOR'S ORGANIZ ATION 02/11/2022 [facility] DATE CREATED AUTHOR AUTHOR'S ORGANIZ ATION 09/13/2022 [facility] DATE CREATED AUTHOR AUTHOR'S ORGANIZ ATION 02/09/2023 [facility] DATE CREATED AUTHOR AUTHOR'S ORGANIZ ATION 04/12/2023 [facility] DATE CREATED AUTHOR AUTHOR'S ORGANIZ ATION 04/12/2023 [facility] EPIC Reason for Visit (unrecogniz ed section and content) Status Reason Specialty Diagnoses / Procedures Referred By Contact Referred To Contact [facility] Diagnoses LYNN (obstructive sleep apnea) Procedures Baseline Diagnostic Sleep Study Ike Ortiz MD [address] [address] Status Reason Specialty Diagnoses / Procedures Referre d By Contact Referred To Contact Diagnoses K21.9 GERD E66.9 OBESITY Procedures AL EGD TRANSORAL BIOPSY SINGLE/MULTIPLE EGD BIOPSY Patricia Curry, DO [address] [facility] [place] [address] [facility] Reason Comments twin HX C/S HX gastric sleeve HX PTD Reason Comments Dichorionic Diamniotic Twin Hypertension Reason Comments Routine Visit Care Teams (unrecognized sec tion and content) Web Services Architect Relationship Specialty Start Date End Date Stephane Martin MD [address] [place] [address] PCP - General 05/17/20 Web Services Architect Relationship Specialty Start Date End Date Stephane Martin MD [address] [place] [address] PCP - General 05/17/20 Team Status: Inactive Member Role Status Dates Ale Shields APRN Attending Provider Active Web Services Architect Relationship Specialty Start Date End Date Margot Toure DO [address] [place] [address] PCP - [facility] 01/03/23 Web Services Architect Relationship Specialty Start Date End Date Margot Toure DO [address] [place] [address] PCP - [facility] 01/03/23 Web Services Architect Relationship Specialty Start Date End Date Margot Toure DO [address] [place] [address] PCP - [facility] 01/03/23 Web Services Architect Relationship Specialty Start Date End Date Margot Toure DO [address] [place] [address] PCP - General Family Medicine 01/03/23 Web Services Architect Relationship Specialty Start Date End Date Yaw Margot GDO [address] [place] [address] PCP - General Family Medicine 01/03/23 Web Services Architect Relationship Specialty Start Date End Date YawCastilloalonso Willard [address] [place] [address] PCP - General Family Medicine 01/03/23 Web Services Architect Relationship Specialty Start Date End Date Yaw, Margot G [address] [place] [address] PCP - General Family Medicine 07/01/22 Web Services Architect Relationship Specialty Start Date End Date YawMargot SudheerDO [address] [place] [address] PCP - General Family Medicine 07/01/22 Ordered [...] (Given - Provider: Sharmin Sam APRN - TYPEWRITER RIBBON WINDER) ceFAZolin (ANCEF) 3000 mg in sterile water [...] (See Alternative - Provider: Nohemy Underwood RN) 921 (See Alternative - Provider: Hannah [...] IV Fluid Infusing)2009 (Not Given - Provider: Nhoemy Underwood RN - Reason: IV Fluid Infusing) [...] (NoRateChange - Provider: Sharmin Sam APRN - TYPEWRITER RIBBON WINDER)0856 (Anesthesia Volume Adjustment - Provider: Sharmin Sam APRN - TYPEWRITER RIBBON WINDER) 1631 (Stopped - Provider: Hannah Zavaleta RN) [...] to back table, 1000 ml. 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 [facility] [employer] [facility]. provides no warranty or guarantee of the accuracy or completeness of information in this document.
== END 2023-04-16 10:05 | disposition home or self-care (01) ==
LOC: CARD 10:05
PROVIDERS: Visit Provider Obstetrics & Gynecology
DX: R55 Syncope and collapse (principal); O30.003 Twin pregnancy, unspecified number of placenta and unspecified number of amniotic sacs, third trimester
CPT/HCPCS: 93005

== ENCOUNTER 2023-05-01 08:59 | Outpatient (OUT) | payer MEDICAID, SELFPAY ==
--- NOTE | 2023-05-01 09:01 | US_ITS ---
[address] [address] Patient Name: JADEN VELÁSQUEZ MRN: [facility]:[id number] date: 1995 Sex: F Assigned Patient Location: [facility] Current Patient Location: [facility] Accession/Order Number: [id number] Exam Date: 05/01/2023 09:01 Report Date: 05/01/2023 10:10 At the request of: ODILON ARNETT Procedure: US OB growth twins EXAMINATION: US OB growth twins HISTORY: TWIN GESTATION COMPARISON: No relevant comparison available. FINDINGS: Number: 2.0 BABY 1: Heart Rate: 138 bpm Position: Transverse Amniotic Fluid Volume: Largest pocket 4.7 x 3.8 cm BIOMETRY: BPD: 7.2 cm; 20 weeks 5 days; 62% HC: 25.7 cm; 20 weeks 0 days; 19% AC: 24.9 cm; 29 weeks 1 day; 76% FL: 5.4 cm; 28 weeks 3 days; 47% EFW: 1278 g; 67% FL/AC: 21.5 FL/BPD: 74.9 HC/AC: 1.0 BABY 2: Heart Rate: 150.0 bpm Position: TRANSVERSE Amniotic Fluid Volume: 7.6 x 3.5 cm BIOMETRY: BPD: 7.3 cm cm; 29 weeks 2 days; 80% HC: 26.7 cmcm; 29 weeks 0 days ; 52% AC: 24.2 cm cm; 28 weeks 3 days; 57% FL: 5.3 cm cm; 28 weeks 1 days; 38% EFW: 1231.6 grams; 56% FL/AC: 21.9 FL/BPD: 72.4 HC/AC: 1.1 GESTATIONAL AGE: Age by EDC: 28 weeks 0 days ANNAMARIA by EDC: 07/24/2023 Age by US: Baby 1: 28 weeks 4 days Baby 2: 28 weeks 5 days ANNAMARIA by US: Baby 1: 07/20/2023 Baby 2: 07/19/2023 US/US OB growth twins IMPRESSION: 1. Live twin intrauterine with growth detailed above. Electronically authenticated by: COURTNEY LUGO Date: 05/01/2023 10:10
--- OUTSIDE RECORDS SUMMARY | 2023-05-01 09:18 | XMS_ITS | CCD ---
Author Organization [facility] Care Team Providers Care Napper Grinder Name Role Phone Neo Anderson Unavailable Unavailable Neo Anderson Unavailable Unavailable Jose Maria Santoyo MD, [facility] Primary Care Provider DOC OKEEFE Referring Unavailable JOSE MARIA SANTOYO, STEPHANE Primary Care Unavailtina e DOC OKEEFE Referring Unavailable JOSE MARIA SANTOYO, [facility] Primary Care Unavailabl e IKE ORTIZ Referring Unavailable JOSE MARIA SANTOYO, [facility] Primary Care Unavailabl e Ale Harris Unavailable [...] Unavailable ZIEBER, DR COURTNEY [employer] Unavailable REQUEST, NONE [...] Yaw DO, Margot G Primary Care Provider [phone] NIGEL ADAMES R Referring Unavailable YAW, MARGOT G Primary Care Unavailable HOPE, NIGEL R Referring Unavailable YAW, MARGOT G Primary Care Unavailable KAROLINE HOPSON Attending Unavailable NIGEL ADAMES Referring Unavailable YAW, MARGOT G Primary Care Unavailable HOPE, NIGEL Attending Unavailable HOPE, NIGEL Attending Unavailable ELOISE DOMINGUEZ Attending Unavailable HOPE, NIGEL Attending Unavailable YAW, MARGOT G Attending Unavailable HOPE, NIGEL Attending Unavailable YAW, MARGOT G Attending Unavailable Allergies Allergy Classification Reported Allergen(s) Allergy Type Date of Onset Reaction(s) Facility (11 sources) Ibuprofen; Translations: [IBUPROFEN] Drug Allergy 09-19-2021 [facility] Medications Current Medications Medication Drug Class(es) [...] 30 mg oral tablet (1 source) Uncompetitive V-ajuogb-R-aspartate Receptor Antagonist, Sigma-1 Agonist Start: 2020 take 1 tablet by mouth every eight hours Hines DMT 30-30 MG 1 tablet Orally every [...] Iron (2 sources) Iron Active lactobacillus acidophilus [id number] unt / pectin 100 mg oral tablet [...] extended release oral tablet (2 sources) Uncompetitive G-caqycv-D-asparta te Receptor Antagonist, Sigma-1 Agonist Start: 01-14-2022 [...] Test Name Value Interpretation Reference Range Facility TB UA (CLEAN/CATCH) LODGING MANAGER/LISA RO IF IND.on 03-24-2023 BILIR[facility]IN URINE Negative NE[facility] BLOOD UR[facility] Negative NEGATIVE [facility] Clarity (U) CLEAR CLEAR [facility] Color (U) YELLOW YELLOW [facility] e GLUCOSE URINE UA Negative NEGATIVE mg/dL [facility] Interpretation and review of laboratory results Abnormal [facility] Ketones Ql (U) TRACE Abnormal NEGATIVE mg/dL [facility] H ealthcare Leukocyte esterase Test strip Ql (U) Negative NEGATIVE [facility] NITRITE URINE Negative NEGATIVE [facility] Health care pH (U) 6.0 [pH] 5.0 - 9.0 [facility] PROTEIN URINE TRACE NEG/TRACE mg/dL [facility] SPECIFIC GRAVITY URINE >=1.030 Abnormal 1.005 - 1.025 [facility] Healthcare URINE MICROSCOPIC INDICATED NO [facility] Healthcare UROBILINOGEN URINE 0.2 EU/dL 0.2 - 1.0 EU/dL [facility] Urinalysis macro (dipstick) panel (U)on 03-19-2023 Bilirubin, UA Negative Negative - 4(70) +++ mg/dL [facility] Blood, UA Negative Negative - 50 Krzysztof/mcL [facility] Clarity, UA Clear [facility] Color, UA Yellow [facility] Glucose, UA Negative Negative - 1999(110) ++++ mg/dL [facility] Interpretation and review of laboratory results Abnormal [facility] re Ketones, UA Negative Negative - 160(16) ++++ mg/dL [facility] Leukocytes, UA Negative Negative - 500+++ Mckayla/mcL [facility] Nitrite, UA Negative Negative - Positive [facility] pH, UA 6.0 5 - 9 [facility] e Protein, UA Positive Negative - 1999(20) ++++ mg/dL [facility] Spec Grav, UA 1.030 1 - 1.03 [facility] Urobilinogen, UA 0.2 0.2 - 12 mg/dL [facility] CBC without diffon External Hematocrit Hct 33.7 [facility] Comment on above: See attached External Hemoglobin 10.9 [facility] Comment on above: See attached External MCH 29.0 [facility] alth System Comment on above: See attached External Mchc 32.3 [facility] ealth System Comment on above: See attached External Mcv 89.6 [facility] alth System Comment on above: See attached External Mpv 9.7 [facility] alth System Comment on above: See attached External Platelet Count 268 [facility] Comment on above: See attached External Rbc Count 3.76 [facility] Comment on above: See attached External Rdw 13.4 [facility] [employer] alth System Comment on above: See attached External Wbc Count 9.5 [facility] Comment on above: See attached [facility] [employer] [facility] Urine protein creatinine rat ioon 02-27-2023 Protein/Creatinine (U) [Mass ratio] 0.10 mg/g [facility] Comment on above: see attached [facility] [employer] [facility] Ultrasound - Officeon 2022 Radiology Study observation (narrative) [facility] HIV 1&2 AB/AG Screen (P24 AG )on 12-20-2022 HIV 1&2 AB/AG Non-Reactive [facility] Hepatitis B surface antigeno n 12-20-2022 Hepatitis B Surface Antigen Negative [facility] No Panel Informationon 12-20 [facility] Rubella IGG immune statuson 12-20-2022 Rubella immune IgG 1.96 [facility] Syphilis Total(Unknown Syphi lis Status)on 12-20-2022 Syphilis Non-Reactive [facility] Ultrasound - Officeon 2022 SEE SCANNED REPORt MANUAL LY TRANSCRIBED RESULTS [facility] COVID + FLU Quick Testingon 10-12-2022 SARS-CoV-2 (COVID-19) RNA BECCA+probe Ql (Unsp spec) negtaive [employer] Other COVID + FLU Quick Testing Negative [employer] [facility] [employer] Other Basic Metabolic Profon 09-11 Anion gap [Moles/Vol] 9 mmol/L Normal 9-17 [facility] Comment on above: Performed By: #### B MP, CBC, PT #### [facility] [employer] [address] [place] [address] [phone] Field Service Representative: Anthony Aguilar MD Calcium [Mass/Vol] 8.8 mg/dL Normal 8.6-10.4 [facility] Comment on above: Performed By: #### B MP, CBC, PT #### [facility] [address] [place] [phone] Field Service Representative: Anthony Aguilar MD Chloride [Moles/Vol] 106 mmol/L Normal 98-107 [facility] Comment on above: Performed By: #### B MP, CBC, PT #### [facility] [address] [place] [phone] Field Service Representative: Anthony Aguilar MD CO2 [Moles/Vol] 23 mmol/L Normal 20-31 [facility] Comment on above: Performed By: #### B MP, CBC, PT #### [facility] [address] [address] Field Service Representative: Anthony Aguilar MD Creatinine [Mass/Vol] 0.7 mg/dL Normal 0.5-0.9 [facility] Comment on above: Performed By: #### B FIFI, CBC, PT #### [facility] [address] [place] [phone] Field Service Representative: Anthony Aguilar MD GFR/1.73 sq M.predicted among non-blacks MDRD (S/P/Bld) [Vol rate/Area] mL/min/{1.73_m2} Normal >60 [facility] Comment on above: Result Comment: These [...] By: #### B FIFI, CBC, PT #### [facility] [employer] [address] [place] [phone] Field Service Representative: Anthony Aguilar MD Glucose [Mass/Vol] 79 mg/dL Normal 70-99 [facility] Comment on above: Performed By: #### B FIFI, CBC, PT #### [facility] [address] [place] [phone] Field Service Representative: Anthony Aguilar MD Potassium [Moles/Vol] 4.1 mmol/L Normal 3.7-5.3 [facility] Comment on above: Performed By: #### B FIFI, CBC, PT #### [facility] [address] [place] [address] Field Service Representative: Anthony Aguilar MD Sodium [Moles/Vol] 138 mmol/L Normal 135-144 [facility] Comment on above: Performed By: #### B FIFI, CBC, PT #### [facility] [address] [place] [phone] Field Service Representative: Anthony Aguilar MD Urea nitrogen [Mass/Vol] 11 mg/dL Normal 6-20 [facility] Comment on above: Performed By: #### B MP, CBC, PT #### [facility] [address] [place] [phone] Field Service Representative: Anthony Aguilar MD CBCon 09-11-2022 Erythrocyte distribution width (RBC) [Ratio] 13.2 % Normal 11.8-14.4 [facility] Comment on above: Performed By: #### B MP, CBC, PT #### [facility] [address] [place] [phone] Field Service Representative: Anthony Aguilar MD Hematocrit (Bld) [Volume fraction] 41.6 % Normal 36.3-47.1 [facility] Comment on above: Performed By: #### B MP, CBC, PT #### [facility] [address] [place] [phone] Field Service Representative: Anthony Aguilar MD Hemoglobin (Bld) [Mass/Vol] 13.3 g/dL Normal 11.9-15.1 [facility] Comment on above: Performed By: #### B MP, CBC, PT #### [facility] [address] [place] [address] Field Service Representative: Anthony Aguilar MD MCH (RBC) [Entitic mass] 28.3 pg Normal 25.2-33.5 [facility] Comment on above: Performed By: #### B MP, CBC, PT #### [facility] [address] [place] [address] Field Service Representative: Anthony Aguilar MD MCHC (RBC) [Mass/Vol] 32.0 g/dL Normal 28.4-34.8 [facility] Comment on above: Performed By: #### B MP, CBC, PT #### [address] [address] Field Service Representative: Anthony Aguilar MD MCV (RBC) [Entitic vol] 88.5 fL Normal 82.6-102.9 [facility] Comment on above: Performed By: #### B MP, CBC, PT #### [address] [address] Field Service Representative: Anthony Aguilar MD NRBC Automated 0.0 per 100 WBC Normal 0.0 [facility] Comment on above: Performed By: #### B MP, CBC, PT #### [address] [address] Field Service Representative: Anthony Aguilar MD Platelet mean volume (Bld) [Entitic vol] 9.7 fL Normal 8.1-13.5 [facility] Comment on above: Performed By: #### B MP, CBC, PT #### [address] [address] Field Service Representative: Anthony Aguilar MD Platelets (Bld) [#/Vol] 276 10*3/uL Normal 138-453 [facility] Comment on above: Performed By: #### B MP, CBC, PT #### [address] [address] Field Service Representative: Anthony Aguilar MD RBC (Bld) [#/Vol] 4.70 10*6/uL Normal 3.95-5.11 [facility] Comment on above: Performed By: #### B MP, CBC, PT #### [address] [address] Field Service Representative: Anthony Aguilar MD WBC (Bld) [#/Vol] 7.4 10*3/uL Normal 3.5-11.3 [facility] Comment on above: Performed By: #### B MP, CBC, PT #### [address] [phone] Field Service Representative: Anthony Aguilar MD PTon 09-11-2022 INR Coag (PPP) [Relative time] 1.0 {INR} Normal [facility] Comment on above: Result Comment: Therapeutic Range: Moderate Anticoagulant Intensity: INR = 2.0-3.0 High Anticoagulant Intensity: INR = 2.5-3.5 Performed By: #### B MP, CBC, PT #### [address] [phone] Field Service Representative: Anthony Aguilar MD PT Coag (PPP) [Time] 12.9 s Normal 11.7-14.9 [facility] Comment on above: Performed By: #### B MP, CBC, PT #### [address] [phone] Field Service Representative: Anthony Aguilar MD Surgical Pathologyon 023 Surgical Pathology (NOTE) Path Number: [id number] -- Diagnosis -- GALLBLADDER, CHOLECYSTECTOMY: -CHRONIC CHOLECYSTITIS WITH CHOLESTEROLOSIS AND CHOLELITHIASIS. Jameel Lawler M.D. Electronically Signed Out 09/12/2022 Clinical Information Pre-op Diagnosis: GALLSTONES Operative Findings: GALLBLADDER Operation Performed: LAPAROSCOPIC CHOLECYSTECTOMY tm Source of Specimen A: GALLBLADDER [facility] Received in formalin is a 7.5 [...] lesions or periductal lymph nodes are identified. Student Success Counselor sections 1c. tm Microscopic Description Microscopic examination performed. Processing Lab: [address] [address] Interpretation Performed at [place] [phone] SURGICAL PATHOLOGY CONSULTATION Patient Name: FINA VELÁSQUEZ [facility] Rec: [id number] [facility] [employer] [facility] ANATOMIC PATHOLOGY [address] [place] [phone] [facility] Urine Cultureon 02-08-2022 Bacteria identified Cx Nom (U) Reason for Exam Dysuria Urine ORGANISM: Escherichia coli (O:ESCCOL) Cochran Count >100,000 Aerobic LISA Charge (NMIC56) ---- [...] RESISTANT TO ALL B-LACTAM DRUGS. PERFORMED BY: [address] [place] [address] PATHOLOGIST POWER SCREWDRIVER OPERATOR SAMIRA WEN M.D. [facility] Comment on above: Performed By: #### C UU #### [facility] [address] [id number] [facility] VC CONSULT FOLLOWUPon 2021 VC CONSULT FOLLOWUP Patient: FINA VELÁSQUEZ Exam Date: 01/08/2022 : 1995 Gender:F Ordering : DR JAMEEL BURGOS M.D. Admission #: [id number] Family : Order #: [id number] CLICK HERE TO VIEW EXAM RADIOLOGY REPORT [...] Hinton M.D. on 01/08/2022 at 10:10 Normal [facility] VC EXT VENOUS RT LIMITEDon 1 03-10-2021 VC EXT VENOUS RT LIMITED Patient: FINA VELÁSQUEZ Exam Date: 01/08/2022 : 1995 Gender:F Ordering : DR JAMEEL BURGOS M.D. Admission #: [id number] Family : Order #: [id number] CLICK HERE TO VIEW EXAM RADIOLOGY REPORT [...] Hinton M.D. on 01/08/2022 at 10:05 Normal [facility] VC ENDOVENOUS ABL 1ST V RTon 12-31-2021 VC ENDOVENOUS ABL 1ST V RT Patient: FINA VELÁSQUEZ Exam Date: 12/31/2021 : 1995 Gender:F Ordering : DR JAMEEL BURGOS M.D. Admission #: [id number] Family : Order #: [id number] CLICK HERE TO VIEW EXAM RADIOLOGY REPORT [...] Burgos MD on 12/31/2021 at 11:06 Normal [facility] ED Clinical Summaryon 2021 ED Clinical Summary [facility] ? Urgent Care [address] [place] [id number] Clinical Summary PERSON INFORMATION Name: VERNON VELÁSQUEZ Age: 26 Years Sex: FEMALE : 1995 MRN: Acct#: Visit Reason: OTTERBEIN PHYSICAL Arrival: 11/28/2021 10:39:56 Discharge: 11/28/2021 10:59:00 LOS: 000 00:20 Check In: 11/28/2021 10:39:56 Checkout: 11/28/2021 10:59:00 Address: [address] [place] [address] PCP: Provider, None PROVIDER INFORMATION VITALS INFORMATION Vital Sign Triage Latest Temperature Tympanic Temperature Temporal Artery Pulse Rate O2 Sat Respiratory Rate Blood Pressure / / MEDICAL INFORMATION Medications Given: Allergy Information: No known allergies PHYSICIAN DOCUMENTATION DISCHARGE INFORMATION: Discharge Disposition: Eloped Discharge Location: PATIENT EDUCATION INFORMATION Instructions: Follow-Up: DIAGNOSIS: Patient Understands: Comment: Normal [facility] ED Patient Summaryon 022 ED Patient Summary [facility] ? Urgent Care [address] [place] [address] PATIENT DISCHARGE INSTRUCTIONS Patient Information Name: VERNON VELÁSQUEZ Age: 26 Years Date of : 1995 Reason For Visit: OTTERBEIN PHYSICAL Arrival Time: 11/28/2021 10:39:56 Primary Care Physician: Provider, None Attending Physician: Nuno Bradshaw Comment: Patient Education Medication Information: The exam and treatment you received today in the [facility] Emergency Department were for an urgent problem and are not intended as complete care. It is important for you to follow up with a doctor, nurse practitioner, or physician?s product safety technical assistant for ongoing care. If your symptoms [...] so we can reach you if necessary. [facility] Emergency Department has provided you with a complete list of medications post discharge. Please inform your food service substitute/provider of your visit and for further instruction [...] Disease Control and Prevention October 2013 Normal [facility] VC CONSULT FOLLOWUPon 2021 VC CONSULT FOLLOWUP Patient: FNIA VELÁSQUEZ Date: 11/28/2021 : 1995 Gender:F Ordering : DR JAMEEL BURGOS M.D. Admission #: [id number] Family : Order #: [id number] CLICK HERE TO VIEW EXAM RADIOLOGY REPORT [...] Hinton M.D. on 11/28/2021 at 10:04 Normal [facility] VC EXT VENOUS LT LIMITEDon 1 VC EXT VENOUS LT LIMITED Patient: FINA VELÁSQUEZ Exam Date: 11/28/2021 : 1995 Gender:F Ordering : DR JAMEEL BURGOS M.D. Admission #: [id number] Family : Order #: [id number] CLICK HERE TO VIEW EXAM RADIOLOGY REPORT [...] Hinton M.D. on 11/28/2021 at 09:45 Normal [facility] VC ENDOVENOUS ABL 1ST V LTon 11-22-2021 VC ENDOVENOUS ABL 1ST V LT Patient: FINA VELÁSQUEZ Exam Date: 11/22/2021 : 1995 Gender:F Ordering : DR JAMEEL BURGOS M.D. Admission #: [id number] Family : Order #: [id number] CLICK HERE TO VIEW EXAM RADIOLOGY REPORT PROCEDURE: VEIN CENTER ENDOVENOUS ABLATION FIRST VEIN LEFT GREAT SAPHENOUS VEIN COMPARISON: VC VENOUS REFLUX JOVANA LMT, 10/17/2021. INDICATIONS: Pain co-occurrent and due to varicose veins of bilateral legs I83.813 OPERATIVE REPORT: The risks and benefits of the procedure had been previously discussed, and were rediscussed at length. Informed written consent was obtained by ia and Christopher Zavala assisted. Time out procedure [...] Jameel Burgos MD on 11/22/2021 at 09:04 [facility] VC COMP CONSULTATIONon 10-17 VC COMP CONSULTATION Patient: FINA VELÁSQUEZ Exam Date: 10/17/2021 : 1995 Gender:F Ordering : DR JAMEEL BURGOS M.D. Admission #: [id number] Family : Order #: [id number] CLICK HERE TO VIEW EXAM RADIOLOGY REPORT [...] M.D. on 10/17/2021 at 12:46 Normal [facility] Basic Metabolic Panelon Anion gap [Moles/Vol] 8 mmol/L Low 9 - 17 mmol/L [employer] Calcium [Mass/Vol] 8.6 mg/dL 8.6 - 10. 4 mg/dL [employer] Chloride [Moles/Vol] 106 mmol/L 98 - 107 mmol/L [employer] CO2 [Moles/Vol] 23 mmol/L 20 - 31 mmol/L [employer] Creatinine [Mass/Vol] 0.67 mg/dL 0.50 - 0.90 mg/dL [employer] GFR >60 >60 mL/min [employer] GFR Non- >60 >60 mL/min [employer] GFR/1.73 sq M.predicted MDRD (S/P/Bld) [Vol rate/Area] [employer] Comment on above: Average GFR for 20-2 9 years old: 116 mL/min/1.73sq m Chronic Kidney Disease: <60 mL/min/1.73sq m Kidney failure: <15 mL/min/1.73sq m eGFR calculated using average adult body mass. Additional eGFR calculator available at: http://www.[employer]/multiple_crcl_2011.htm Glucose [Mass/Vol] 83 mg/dL 70 - 99 mg/dL [facility] [employer] Interpretation and review of laboratory results Abnormal [employer] Potassium [Moles/Vol] 3.9 mmol/L 3.7 - 5.3 mmol/L [employer] Sodium [Moles/Vol] 137 mmol/L 135 - 144 mmol/L [employer] Urea nitrogen (BldV) [Mass/Vol] 7 mg/dL 6 - 20 mg/dL [employer] [facility] CBCon 05-17-2021 Hematocrit (Bld) [Volume fraction] 34.4 % Low 36.3 - 47.1 % [employer] Hemoglobin.gastroin testinal spec 1 Ql (Stl) 11.0 g/dL Low 11.9 - 15.1 g/dL [employer] Interpretation and review of laboratory results Abnormal [employer] MCH (RBC) [Entitic mass] 27.2 pg 25.2 - 33.5 pg [facility] MCHC (RBC) [Mass/Vol] 32.0 g/dL 28.4 - 34.8 g/dL [facility] MCV (RBC) [Entitic vol] 85.1 fL 82.6 - 102.9 fL [facility] NRBC Automated 0.0 0.0 per 100 WBC [facility] Platelet distribution width (Bld) [Ratio] 14.1 % 11.8 - 14.4 % [facility] Platelet mean volume (Bld) [Entitic vol] 10.1 fL 8.1 - 13.5 fL [facility] Platelets (Bld) [#/Vol] 302 10*3/uL [facility] RBC (Bld) [#/Vol] 4.04 10*6/uL 3.95 - 5.1 1 m/uL [facility] WBC (Bld) [#/Vol] 13.7 10*3/uL [facility] SURGICAL PATHOLOGY REPORTon 05-17-2021 Surgical [...] x 0.5 cm piece of adipose tissue. Student Success Counselor sections 1cs. tm Microscopic Description 1 H&E reviewed. Microscopic examination performed. SURGICAL PATHOLOGY CONSULTATION Patient Name: FINA VELÁSQUEZ [facility] Rec: [id number] Path Number: [id number] [facility] [employer] [facility] ANATOMIC PATHOLOGY [address] [place] [address]. [place], [place] [phone] [facility] Basic Metabolic Panelon 04-0 Anion gap [Moles/Vol] 10 mmol/L 9 - 17 mmol/L [facility] Calcium [Mass/Vol] 8.7 mg/dL 8.6 - 10. 4 mg/dL [facility] Chloride [Moles/Vol] 105 mmol/L 98 - 107 mmol/L [facility] CO2 [Moles/Vol] 23 mmol/L 20 - 31 mmol/L [facility] Creatinine [Mass/Vol] 0.75 mg/dL 0.50 - 0.90 mg/dL [facility] GFR >60 >60 mL/min [facility] GFR Non- >60 >60 mL/min [facility] GFR/1.73 sq M.predicted MDRD (S/P/Bld) [Vol rate/Area] [facility] Comment on above: Average GFR for 20-2 9 years old: 116 mL/min/1.73sq m Chronic Kidney Disease: <60 mL/min/1.73sq m Kidney failure: <15 mL/min/1.73sq m eGFR calculated using average adult body mass. Additional eGFR calculator available at: http://www.[employer]/multiple_crcl_2011.htm Glucose [Mass/Vol] 132 mg/dL High 70 - 99 mg/dL [facility] Interpretation and review of laboratory results Abnormal [facility] Potassium [Moles/Vol] 3.5 mmol/L Low 3.7 - 5.3 mmol/L [facility] Sodium [Moles/Vol] 138 mmol/L 135 - 144 mmol/L [facility] Urea nitrogen (BldV) [Mass/Vol] 10 mg/dL 6 - 20 mg/dL [facility] CBC without Diffon 2 Hematocrit (Bld) [Volume fraction] 38.8 % 36.3 - 47.1 % [facility] Hemoglobin.gastroin testinal spec 1 Ql (Stl) 12.6 g/dL 11.9 - 15.1 g/dL [facility] Interpretation and review of laboratory results Abnormal [facility] MCH (RBC) [Entitic mass] 27.2 pg 25.2 - 33.5 pg [facility] MCHC (RBC) [Mass/Vol] 32.5 g/dL 28.4 - 34.8 g/dL [facility] MCV (RBC) [Entitic vol] 83.8 fL 82.6 - 102.9 fL [facility] NRBC Automated 0.0 0.0 per 100 WBC [facility] Platelet distribution width (Bld) [Ratio] 13.9 % 11.8 - 14.4 % [facility] Platelet mean volume (Bld) [Entitic vol] 9.8 fL 8.1 - 13.5 fL [facility] Platelets (Bld) [#/Vol] 340 10*3/uL [facility] RBC (Bld) [#/Vol] 4.63 10*6/uL 3.95 - 5.1 1 m/uL [facility] WBC (Bld) [#/Vol] 15.0 10*3/uL [facility] POC Glucose Fingerstickon Glucose [Mass/Vol] 77 mg/dL 65 - 105 mg/dL [facility] POCT urine pregnancyon 05-16 Beta HCG ( test) Ql (U) Negative NEGATIVE [facility] Comment on above: Specimens with hCG l evels near the threshold of the test (25 mIU/mL) may give a negative or indeterminate result. In such cases, another test should be performed with a new specimen in 48-72 hours. If early is suspected clinically in this setting, correlation with quantitative serum b-hCG level is suggested. [facility] [id number] 05-15-2021 SARS-CoV-2 (COVID-19) RNA BECCA+probe Ql (Unsp spec) Normal [facility] Comment on above: Performed By: #### C OVID #### [facility] [employer] [address] [place] [address] Field Service Representative: Anthony Aguilar MD [facility] [address] [place] [address] Field Service Representative: Jameel Lawler MD SARS-CoV-2 (COVID-19) RNA BECCA+probe Ql (Unsp spec) Not detected Normal NOTDET [facility] Comment on above: Result Comment: The specimen is NEGATIVE for SARS-CoV-2, the novel coronavirus associated with COVID-19. A negative result does not rule out COVID-19. [employer] SARS-CoV-2 for use on the [employer] 6800/8800 Systems is a real-time RT-PCR test intended [...] this assay. Fact sheet for Healthcare Providers: https://www.fda.gov/media/786556/download Fact sheet for Patients: https://www.fda.gov/media/401188/download METHODOLOGY: RT-PCR Performed By: #### C OVID #### [id number] [place], [place] [id number] Field Service Representative: Anthony Aguilar MD [facility] [address] [place] [address] Field Service Representative: Jameel Lawler MD [id number] 05-14-2021 SARS-CoV-2 (COVID-19) RNA BECCA+probe Ql (Unsp spec) .NASOPHARYNGEAL SWAB Normal [facility] Comment on above: Performed By: #### C OVID #### [id number] [place], [place] [id number] Field Service Representative: Anthony Aguilar MD [facility] [address] [place] [address] Field Service Representative: Jameel Lawler MD Nicotine, Bloodon 05-05-2021 9-CN-Lfumjopt <2 ng/mL [facility] Cotinine <2 ng/mL [facility] Nicotine <2 ng/mL [facility] Comment on above: (NOTE) Consistent with [...] developed and its performance characteristics determined by [employer]. It has not been cleared or approved by the US Food and Drug Administration. This test was performed in a CLIA certified laboratory and is intended for clinical purposes. Performed By: [employer] [address] [place] [id number] Hair Machine Operator: Yara Rodriguez MD [employer] EKG 12 LeadOrdered By: Diaz Conway on 05-03-2021 Atrial Rate 72 BPM [employer] Phone: P Palmer 45 degrees [employer] Phone: P-R Interval 142 ms [employer] Phone: Q-T Interval 376 ms [employer] Phone: QRS Duration 100 ms [employer] Phone: QTc Calculation (Bazett) 411 ms [employer] Phone: R Palmer 22 degrees [employer] Phone: T Palmer 32 degrees [employer] Phone: Ventricular Rate 72 BPM [employer] Work Phone: [employer] Phone: EKG 12 Leadon 05-03-2021 Normal sinus rhythm Normal ECG No previous ECGs available [facility] Diaz Elias MD - 05/03/2021 Normal sinus rhythm Normal ECG No previous ECGs available [employer] Phone: APTTon 05-02-2021 aPTT Coag (Bld) [Time] 25.0 s [facility] Comment on above: IV Heparin Therapy Range: 48.6-77.8 Basic Metabolic Panelon 04-11 Anion gap [Moles/Vol] 15 mmol/L 9 - 17 mmol/L [facility] [employer] Calcium [Mass/Vol] 9.8 mg/dL 8.6 - 10. 4 mg/dL [facility] [employer] Chloride [Moles/Vol] 102 mmol/L 98 - 107 mmol/L [facility] [employer] CO2 [Moles/Vol] 21 mmol/L 20 - 31 mmol/L [facility] [employer] Creatinine [Mass/Vol] 0.55 mg/dL 0.50 - 0.90 mg/dL [facility] [employer] GFR >60 >60 mL/min [facility] GFR Non- >60 >60 mL/min [facility] GFR/1.73 sq M.predicted MDRD (S/P/Bld) [Vol rate/Area] [facility] Comment on above: Average GFR for 20-2 9 years old: 116 mL/min/1.73sq m Chronic Kidney Disease: <60 mL/min/1.73sq m Kidney failure: <15 mL/min/1.73sq m eGFR calculated using average adult body mass. Additional eGFR calculator available at: http://www.[employer]/multiple_crcl_2011.htm Glucose [Mass/Vol] 85 mg/dL 70 - 99 mg/dL [facility] Potassium [Moles/Vol] 4.5 mmol/L 3.7 - 5.3 mmol/L [facility] Sodium [Moles/Vol] 138 mmol/L 135 - 144 mmol/L [facility] Urea nitrogen (BldV) [Mass/Vol] 11 mg/dL 6 - 20 mg/dL [facility] 05-02-2021 Hematocrit (Bld) [Volume fraction] 41.0 % 36.3 - 47.1 % [facility] Hemoglobin.gastroin testinal spec 1 Ql (Stl) 12.9 g/dL 11.9 - 15.1 g/dL [facility] MCH (RBC) [Entitic mass] 26.9 pg 25.2 - 33.5 pg [facility] MCHC (RBC) [Mass/Vol] 31.5 g/dL 28.4 - 34.8 g/dL [facility] [employer] MCV (RBC) [Entitic vol] 85.6 fL 82.6 - 102.9 fL [facility] [employer] NRBC Automated 0.0 0.0 per 100 WBC [facility] [employer] Platelet distribution width (Bld) [Ratio] 13.7 % 11.8 - 14.4 % [facility] [employer] Platelet mean volume (Bld) [Entitic vol] 9.8 fL 8.1 - 13.5 fL [facility] [employer] Platelets (Bld) [#/Vol] 380 10*3/uL [facility] [employer] RBC (Bld) [#/Vol] 4.79 10*6/uL 3.95 - 5.1 1 m/uL [facility] [employer] WBC (Bld) [#/Vol] 11.2 10*3/uL [facility] [employer] No Panel Informationon 05-02 [employer] Protime-INRon 05-02-2021 INR Coag (Bld) [Relative time] 1.0 {INR} [facility] [employer] Comment on above: Therapeutic Range: Moderate Anticoagulant Intensity: INR = 2.0-3.0 High Anticoagulant Intensity: INR = 2.5-3.5 PT Coag (PPP) [Time] 10.6 s [employer] XR CHEST (2 VW)on 05-02-2021 No acute process. [facility] RIS CONSOLIDATED EXAMINATION: TWO XRAY VIEWS OF THE CHEST 05/02/2021 11:20 am COMPARISON: None. HISTORY: ORDERING SYSTEM PROVIDED HISTORY: preop, obesity TECHNOLOGIST PROVIDED HISTORY: preop, obesity FINDINGS: Heart is normal in size. Lungs are clear. No free air. [facility] RIS CONSOLIDATED Jose Juan Florez Jr. , DO - 05/02/2021 EXAMINATION: TWO XRAY VIEWS OF THE CHEST 05/02/2021 11:20 am COMPARISON: None. HISTORY: ORDERING SYSTEM PROVIDED HISTORY: preop, obesity TECHNOLOGIST PROVIDED HISTORY: preop, obesity FINDINGS: Heart is normal in size. Lungs are clear. No free air. IMPRESSION: No acute process. [employer] Work Phone: Radiology Study observation (narrative) [employer] Work Phone: XR CHEST (2 VW)Ordered By: Santos Florez on 05-02-2021 [facility] Work Phone: [id number] 12-05-2020 SARS-CoV-2 (COVID-19) RNA BECCA+probe Ql (Unsp spec) Normal [facility] Comment on above: Performed By: #### C OVID #### [facility] [address] [place], [place] [id number] Field Service Representative: Anthony Aguilar MD [facility] [address] [place] [address] Field Service Representative: Jameel Lawler MD SARS-CoV-2 (COVID-19) RNA BECCA+probe Ql (Unsp spec) Not detected Normal NOTDET [facility] Comment on above: Result Comment: The specimen is NEGATIVE for SARS-CoV-2, the novel coronavirus associated with COVID-19. A negative result does not rule out COVID-19. [employer] SARS-CoV-2 for use on the [employer] 6800/8800 [employer] is a real-time RT-PCR test intended [...] this assay. Fact sheet for Healthcare Providers: https://www.fda.gov/media/541477/download Fact sheet for Patients: https://www.fda.gov/media/755073/download METHODOLOGY: RT-PCR Performed By: #### C OVID #### [facility] [address] [place] [address] Field Service Representative: Anthony Aguilar MD [facility] [address] [place] [address] Field Service Representative: Jameel Lawler MD [id number] 12-04-2020 SARS-CoV-2 (COVID-19) RNA BECCA+probe Ql (Unsp spec) .NASOPHARYNGEAL SWAB Normal [facility] Comment on above: Performed By: #### C OVID #### [facility] [address] [place], [place] [id number] Field Service Representative: Anthony Aguilar MD [facility] [address] [place] [address] Field Service Representative: Jameel Lawler MD Vital Signs Date Time Vital Sign Value Performing Clinician Facility 03-19-2023 11:06-0500 Body mass index (BMI) [Ratio] 36.34 kg/m2 Eloise BURROUGHS Work Phone: [facility] 03-19-2023 11:06-0500 Body weight 105.23 kg Eloise BURROUGHS Work Phone: [facility] 03-19-2023 11:06-0500 Diastolic blood pressure 78 mm[Hg] Eloise BURROUGHS Work Phone: [facility] 03-19-2023 11:06-0500 Systolic blood pressure 124 mm[Hg] Eloise BURROUGHS Work Phone: [facility] 03-05-2023 10:48-0500 Body mass index (BMI) [Ratio] 35.08 kg/m2 Karoline Hopson MD Work Phone: [facility] 03-05-2023 10:48-0500 Body weight 101.61 kg Karoline Hopson MD Work Phone: [facility] 03-05-2023 10:48-0500 Diastolic blood pressure 75 mm[Hg] Karoline Hopson MD Work Phone: [facility] 03-05-2023 10:48-0500 Heart rate 89 /min Karoline Hopson MD Work Phone: [facility] 03-05-2023 10:48-0500 Systolic blood pressure 126 mm[Hg] [facility] 02-07-2023 13:34-0500 Body height 170.2 cm Tatiana Yap MD [facility] 02-07-2023 13:34-0500 Body mass index (BMI) [Ratio] 34.14 kg/m2 Tatiana Yap MD [facility] 02-07-2023 13:34-0500 Body weight 98.88 kg Tatiana Yap MD Work Phone: [employer] 02-07-2023 13:34-0500 Diastolic blood pressure 83 mm[Hg] Tatiana Yap MD [facility] 02-07-2023 13:34-0500 Heart rate 76 /min Tatiana Yap MD [facility] 02-07-2023 13:34-0500 Systolic blood pressure 126 mm[Hg] Tatiana Yap MD Work Phone: [employer] 10-12-2022 10:10-0400 Body height 170.18 cm Lilia Daugherty Other [employer] Other 10-12-2022 10:10-0400 Body mass index (BMI) [Ratio] 32.86 kg/m2 Lilia Daugherty Other [employer] Other 10-12-2022 10:10-0400 Body temperature 99 [degF] Lilia Daugherty Other [employer] Other 10-12-2022 10:10-0400 Body weight 95.17 kg Lilia Daugherty Other [employer] Other 10-12-2022 10:10-0400 Diastolic blood pressure 74 mm[Hg] Lilia Daugherty Other [employer] Other 10-12-2022 10:10-0400 SaO2% (BldA) [Mass fraction] 98 % Lilia Daugherty Other [employer] Other 10-12-2022 10:10-0400 Systolic blood pressure 118 mm[Hg] Lilia Daugherty Other [employer] Other 05-17-2021 15:52-0400 Body temperature 98.49 [degF] Patricia Curry [employer] Work Phone: [employer] 05-17-2021 15:52-0400 Diastolic blood pressure 97 mm[Hg] Patricia Curry [employer] Work Phone: [employer] 05-17-2021 15:52-0400 Heart rate 70 /min Patricia Curry [employer] Work Phone: [employer] 05-17-2021 15:52-0400 Respiratory rate 18 /min Patricia Curry [employer] Work Phone: [employer] 05-17-2021 15:52-0400 SaO2% (BldA) [Mass fraction] 99 % Patricia Curry [employer] Work Phone: [employer] 05-17-2021 15:52-0400 Systolic blood pressure 138 mm[Hg] Patricia Curry DO Work Phone: [employer] 05-16-2021 06:06-0400 Body mass index (BMI) [Ratio] 43.16 kg/m2 Patricia Curry [employer] Work Phone: [employer] 05-16-2021 06:06-0400 Body weight 125 kg Patricia Curry [employer] Work Phone: [employer] 05-16-2021 05:57-0400 Body height 170.2 cm Patricia Curry [employer] Work Phone: [employer] 05-02-2021 10:35-0400 Body height 170.2 cm Stvz 1 [employer] 05-02-2021 10:35-0400 Body mass index (BMI) [Ratio] 44.95 kg/m2 Stvz 1 [employer] 05-02-2021 10:35-0400 Body temperature 97.2 [degF] Stvz 1 [employer] 05-02-2021 10:35-0400 Body weight 130.18 kg Stvz 1 [employer] 05-02-2021 10:35-0400 Diastolic blood pressure 85 mm[Hg] Stvz 1 [employer] 05-02-2021 10:35-0400 Heart rate 66 /min Stvz 1 [employer] 05-02-2021 10:35-0400 Respiratory rate 18 /min Stvz 1 [employer] 05-02-2021 10:35-0400 SaO2% (BldA) [Mass fraction] 99 % Stvz 1 [employer] 05-02-2021 10:35-0400 Systolic blood pressure 122 mm[Hg] Stvz 1 [employer] 12-04-2020 17:00-0400 Body height 170.18 cm Ale Ginty Other [employer] Other 12-04-2020 17:00-0400 Body mass index (BMI) [Ratio] 43.85 kg/m2 Ale Ginty Other [employer] Other 12-04-2020 17:00-0400 Body temperature 97.4 [degF] Ale Ginty Other [employer] Other 12-04-2020 17:00-0400 Body weight 127.01 kg Ale Ginty Other [employer] Other 12-04-2020 17:00-0400 SaO2% (BldA) [Mass fraction] 99 % Ale Ginty Other [employer] Other Encounters Encounter Date Encounter Type Care Provider Facility Start: 04-10-2023 End: 04-10-2023 ambulatory NIGEL ADAMES Not Available Start: 04-09-2023 End: 04-10-2023 ambulatory NIGEL Rucker [facility] Start: 03-24-2023 Clinisync Result Encounter Nigel Adames DO Work Phone: [facility] External Department Unsolicited Start: 03-24-2023 Clinisync Result Encounter Nigel Adames DO Work Phone: [facility] External Department Unsolicited Start: 03-19-2023 End: 03-19-2023 ambulatory ELOISE DOMINGUEZ Not Available Start: 03-19-2023 End: 03-19-2023 Office outpatient visit 15 minutes Eloise Dominguez PA Work Phone: [facility] Comment on above: Second trimester pre gnancy; Diabetes mellitus screening Start: 03-05-2023 End: 03-06-2023 Orders Only Laila Castillo RN Maternal- Medic ine at [facility] Comment on above: Hypertension affecti ng in second trimester (Primary Dx); Dichorionic diamniotic twin in second trimester Start: 03-05-2023 End: 03-05-2023 Office outpatient visit 15 minutes Karoilne Hopson MD Work Phone: Maternal- Medicine at [facility] Comment on above: History of sleeve ga strectomy (Primary Dx); History of induced hypertension Start: 02-27-2023 Orders Only Sivan Martinez RN Ma ternal- Medicine at [facility] Comment on above: Hypertension affecti ng in second trimester; 16 weeks gestation of ; Dichorionic diamniotic twin in second trimester Start: 02-26-2023 End: 02-26-2023 ambulatory NIGEL REGALADOO Not Available Start: 02-24-2023 Telephone encounter Sangita Thomas RN [facility] [place] Start: 02-07-2023 End: 02-07-2023 ambulatory [facility] Start: 02-07-2023 End: 02-07-2023 Office consultation new/estab patient 60 min Tatiana Yap MD Work Phone: [facility] [place] Comment on above: Hypertension affecti ng in second trimester (Primary Dx); 16 weeks gestation of ; Dichorionic diamniotic twin in second trimester; H/O gastric sleeve Start: 02-05-2023 End: 02-05-2023 ambulatory NIGEL HOPE Not Available Start: 02-05-2023 Chart abstracting Tatiana Yap MD Work Phone: [facility] [place] Start: 02-04-2023 End: 02-04-2023 ambulatory MARGOT G YAW Not Available Start: 01-15-2023 End: 01-15-2023 ambulatory NIGEL HOPE Not Available Start: 01-07-2023 End: 01-07-2023 ambulatory MARGOT G YAW Not Available Start: 12-20-2022 End: 12-21-2022 ambulatory NIGEL HOPE Not Available Start: 10-12-2022 End: 10-12-2022 ambulatory Lilia Daugherty Other [employer] Other Start: 10-12-2022 Office outpatient vi sit 15 minutes Lilia Daugherty [facility] Start: 09-11-2022 End: 09-11-2022 ambulatory PATRICIA Rucker [facility] Start: 02-10-2022 End: 02-10-2022 ambulatory Ale Shields Other [employer] Other Start: 02-10-2022 Telephone encounter Ale Shields [facility] [address] Start: 02-08-2022 End: 02-08-2022 ambulatory Ale Shields Facility:[facility] Start: 02-08-2022 End: 02-08-2022 ambulatory LAURA Shields Work Phone: [facility] Work Phone: Start: 02-08-2022 End: 02-08-2022 Departed Referred LAURA Shields Work Phone: [facility] [place] Work Phone: Start: 01-08-2022 End: 01-09-[address] JAMEEL BURGOS Facility:[facility] Start: 12-31-2021 End: 01-01-[address] JAMEEL BURGOS Facility:[facility] Start: 11-28-2021 End: 11-28-2021 ambulatory None Provider Facility:[facility] Start: 11-28-2021 End: 11-29-[address] [...] 05-14-2021 End: 05-19-2021 ambulatory [facility]N [facility]EEFE [facility] Start: 05-02-2021 End: 05-06-2021 Subsequent hospital visit by physician Dwight Pat Rm 1 [facility] Pre-Admit Testing Start: 12-04-2020 End: 12-09-2020 ambulatory CYN OKEEFE [facility] Start: 12-04-2020 Office outpatient vi sit 15 minutes Ale Kimberly [facility] Start: 10-20-2020 End: 10-20-2020 Subsequent hospital visit by physician Patricia Curry DO Work Phone: [facility] [place] Start: 09-06-2020 End: 09-07-2020 ambulatory IKE ORTIZ [facility] Start: 09-06-2020 End: 09-06-2020 Subsequent hospital visit by physician Henrietta Sleep Rm 1 [facility] Comment on above: LYNN (obstructive sle ep apnea) Start: 05-28-2017 End: 05-29-2017 Ambulatory Neo Anderson Facility:[id number] Procedures Date Procedure Procedure Detail Performing Clinician Start: 03-24-2023 [facility]H UA (CLEAN/CATCH) LODGING MANAGER/MICRO IF IND. Nigel Adames DO Work Phone: Start: 03-19-2023 Urnls dip stick/tabl et rgnt non-auto w/o micrscp Eloise BURROUGHS Work Phone: Start: 02-12-2023 Blood count complete automated Tatiana Yap MD Work Phone: Start: 12-20-2022 Antibody screen Tatiana allison MD Work Phone: Start: 12-20-2022 HIV 1&2 AB/AG SCREEN (P24 AG) Nigel Adames [employer] Work Phone: Start: 12-20-2022 Iaad ia hepatitis b surface antigen Nigel Adames [employer] Work Phone: Start: 12-20-2022 Syphilis test non-treponemal antibody qual Nigel Adames DO Work Phone: Start: 12-20-2022 TYPE AND SCREEN Nigel Adames DO Work Phone: Start: 12-20-2022 ULTRASOUND OFFICE Nigel Adames DO Work Phone: Start: 05-17-2021 Basic metabolic pane l calcium total Patricia Curry [employer] Work Phone: Start: 05-16-2021 SURGICAL PATHOLOGY REPORT Patricia Alka Antoinette [employer] Work Phone: Start: 05-16-2021 Basic metabolic pane l calcium total Patriciaviviana Curry [employer] Work Phone: Start: 05-16-2021 End: 05-16-2021 Laps gstrc rstrictiv px longitudinal gastrectomy Patricia Alka Antoinette [employer] Work Phone: Start: 05-16-2021 Glucose blood reagen t strip Patricia Alka Antoinette [employer] Work Phone: Start: 05-16-2021 Urine test visual color cmprsn meths Patricia Rucker [employer] Work Phone: Start: 05-02-2021 Assay of nicotine Sim Rucker [employer] Work Phone: Start: 05-02-2021 Basic metabolic pane l calcium total Patricia Rucker [employer] Work Phone: Start: 05-02-2021 Radiologic exam ches t 2 views Patricia Rucker [employer] Work Phone: Start: 05-02-2021 Ecg routine ecg w/le ast 12 lds i&r only Patricia Rucker [employer] Work Phone: Start: 06-14-2020 Microscopic observat ion [Identifier] in Cervix by Cyto stain Tatiana Yap MD Work Phone: Plan of Treatment Date Care Activity Detail Author Start: 03-05-2024 Adult BMI Screening [facility] Start: 03-05-2024 [facility] Start: 03-05-2024 End: 03-05-2024 US MFM with or without consult US MFM with or without consult Imaging Routine Hypertension affecting in second trimester Dichorionic diamniotic twin in second trimester Expected: 03/05/2024 (Approximate), Expires: 03/05/2024 [employer] Work Phone: Comment on above: Expected: 03/05/2024 (Approximate), Expires: 03/05/2024 Start: 02-08-2024 Adult BMI Screening [facility] Start: 02-08-2024 Tobacco [facility] Start: 01-04-2024 Adult BMI Screening [facility] Start: 01-04-2024 Tobacco Scre[facility] Start: 08-11-2023 DTaP,Tdap and Td Vaccines (7 - Td or Tdap) DTaP,Tdap and Td Vaccines (7 - Td or Tdap) [facility] [employer] Start: 08-11-2023 DTaP/Tdap/Td vaccine (7 - Td or Tdap) DTaP/Tdap/Td vaccine (7 - Td or Tdap) [facility] Start: 08-10-2023 Influenza vaccination Influenza Vacc ine (#1) [facility] Comment on above: Postponed from 10/11 (Patient Refused) Start: 06-15-2023 Screening for malign ant neoplasm of cervix Pap Smear [facility] Start: 04-10-2023 End: 04-10-2023 Patient encounter procedure [facility] [place] Start: 03-19-2023 End: 03-19-2024 CBC panel - Blood by Automated count CBC Lab Routine Diabetes mellitus screening Expected: 03/19/2023 (Approximate), Expires: 03/19/2024 [facility] Work Phone: Comment on above: Expected: 03/19/2023 (Approximate), Expires: 03/19/2024 Start: 03-19-2023 End: 03-19-2024 Measurement of glucose 1 hour after glucose challenge for glucose tolerance test Glucose tolerance, 1 hour Lab Routine Diabetes mellitus screening Expected: 03/19/2023 (Approximate), Expires: 03/19/2024 [facility] Comment on above: Expected: 03/19/2023 (Approximate), Expires: 03/19/2024 Start: 03-05-2023 End: 03-05-2023 Patient encounter procedure 03/05/2023 11:30 AM EST Office Visit Maternal- Medicine at [facility] [address] [place] [phone] Karoline Hopson MD [address] [place] [address] Maternal- Medicine at [facility] Start: 03-05-2023 End: 03-05-2023 Patient encounter procedure 03/05/2023 9:30 AM EST Appointment [facility] [address] [place] [phone] [facility] Start: 02-07-2023 End: 02-07-2023 Patient encounter procedure [facility] [place] Start: 10-11-2022 Influenza vaccination Influenza Vacc ine [facility] Start: 09-19-2022 Adult BMI Follow Up Plan Adult BMI Follow Up Plan [facility] Start: 02-08-2022 Bacteria identified in Urine by Culture Urine Culture [facility] Start: 01-08-2022 Hemoglobin A1c measurement A1C test (Diabetic or Prediabetic) [facility] Start: 10-11-2021 Influenza vaccination Flu vacc ine (Season Ended) [facility] Start: 07-14-2021 Hemoglobin A1c measurement A1C test (Diabetic or Prediabetic) [facility] Work Phone: Start: 06-18-2021 End: 06-18-2021 Patient encounter procedure 06/18/2021 Office Visit Bariatrics Deann Navarro, STUMP SHOOTER - MASH PREPARATORY OPERATOR [address] [place] [address] [facility] Start: 05-24-2021 End: 05-24-2021 Patient encounter procedure 05/24/2021 Office Visit Bariatrics Patricia Curry DO [address] [place] [address] [facility] Invasive Bariatric Surg Start: 05-16-2021 End: 05-16-2021 Admission to same day surgery center 05/16/2021 Surgery IP Unit Patricia Curry DO [address] [place] [address] XI ROBOTIC LAPAROSCOPIC GASTRECTOMY SLEEVE , LIVER BIOPSY, EGD- GI SCHEDULED [facility] Comment on above: XI ROBOTIC LAPAROSCO PIC GASTRECTOMY SLEEVE , LIVER BIOPSY, EGD- GI SCHEDULED Start: 05-16-2021 End: 05-16-2021 Laps gstrc rstrictiv px longitudinal gastrectomy GASTRECTOMY SLEEVE LAPAROSCOPIC ROBOTIC MORBID OBESITY, OBSTRUCTIVE SLEEP APNEA, GERD 05/16/2021 7:10 AM EDT [facility] Start: 05-16-2021 Subsequent hospital visit by physician 05/16/2021 Hospital Encounter IP Unit Patricia Curry DO [address] [place] [address] [facility] Start: 05-13-2021 End: 05-13-2021 Patient encounter procedure 05/13/2021 Appointment Pre-Admission Testing [facility] PRE ADMIT Start: 05-10-2021 End: 05-10-2021 Patient encounter procedure 05/10/2021 Office Visit Bariatrics Patricia Curry DO [address] [place] [phone] [facility] Invasive Bariatric Surg Start: 11-22-2020 End: 11-22-2020 Nursing evaluation of patient and report 11/22/2020 Nurse Only Bariatrics [facility] Invasive Bariatric Surg Start: 11-06-2020 End: 11-06-2020 Patient encounter procedure [facility] Part [facility] Start: 11-03-2020 End: 11-03-2020 Patient encounter procedure 11/03/2020 Office Visit Bariatrics Deann Navarro, STUMP SHOOTER - MASH PREPARATORY OPERATOR [address] [facility] [address] [place] [phone] [facility] [place] Start: 10-11-2020 Influenza vaccination Flu vaccine (# 1) [facility] Start: 09-28-2020 End: 09-28-2020 Patient encounter procedure 09/28/2020 Office Visit BariatricDeann Roca, STUMP SHOOTER - MASH PREPARATORY OPERATOR [address] [facility] [address] [place] [phone] [facility] [place] Start: 09-01-2015 Screening for malign ant neoplasm of cervix [facility] Start: 2009 HIV screening HIV screen [facility] Start: 2006 COVID-19 Vaccine (1) COVID-19 Vaccin e (1) [facility] Work Phone: Start: 2006 Depression Screen Depression Screen [facility] Start: 2006 [facility] Start: 2005 HPV vaccine (1 - 2-d ose series) HPV vaccine (1 - 2-dose series) [employer] Start: 2000 Pneumococcal 0-64 ye ars Vaccine (1 of 2 - PPSV23) Pneumococcal 0-64 years Vaccine (1 of 2 - PPSV23) [employer] Work Phone: Start: 09-01-1999 COVID-19 Vaccine (1) COVID-19 Vaccin e (1) [employer] Start: 09-01-1995 Varicella vaccine (1 of 2 - 2-dose childhood series) Varicella vaccine (1 of 2 - 2-dose childhood series) [employer] Start: 1994 Hepatitis C screening Hepatitis C sc reen [employer] End: 09-06-2020 Baseline Diagnostic Sleep Study Baseline Diagnostic Sleep Study Sleep Center Routine LYNN (obstructive sleep apnea) 1 Occurrences starting 09/06/2020 until 09/06/2020 [employer] Work Phone: Comment on above: 1 Occurrences starti ng 09/06/2020 until 09/06/2020 End: 02-08-2024 Calcium [Mass/volume] in Serum or Plasma Calcium Lab Routine 16 weeks gestation of H/O gastric sleeve 1 Occurrences starting 02/07/2023 until 02/08/2024 [employer] Comment on above: 1 Occurrences starti ng 02/07/2023 until 02/08/2024 End: 02-08-2024 CBC panel - Blood by Automated count CBC without diff Lab Routine Hypertension affecting in second trimester 16 weeks gestation of Dichorionic diamniotic twin in second trimester 1 Occurrences starting 02/07/2023 until 02/08/2024 [employer] [facility] Work Phone: Comment on above: 1 Occurrences starti ng 02/07/2023 until 02/08/2024 End: 02-08-2024 Comprehensive metabolic 2000 panel - Serum or Plasma Comprehensive metabolic panel Lab Routine Hypertension affecting in second trimester 16 weeks gestation of Dichorionic diamniotic twin in second trimester 1 Occurrences starting 02/07/2023 until 02/08/2024 [employer] Comment on above: 1 Occurrences starti ng 02/07/2023 until 02/08/2024 Continuous pulse oximetry Pulse oximetry, continuous Respiratory Care Routine Every 4hr until discontinued starting 05/16/2021 [employer] Phone: Comment on above: Every 4hr until disc ontinued starting 05/16/2021 End: 02-08-2024 Cyanocobalamin vitamin b-12 Vitamin B12 Lab Routine 16 weeks gestation of H/O gastric sleeve 1 Occurrences starting 02/07/2023 until 02/08/2024 [facility] [employer] [facility] Comment on above: 1 Occurrences starti ng 02/07/2023 until 02/08/2024 End: 02-08-2024 ECG 12 lead ECG 12 lead ECG Routine Hypertension affecting in second trimester 16 weeks gestation of Dichorionic diamniotic twin in second trimester 1 Occurrences starting 02/07/2023 until 02/08/2024 [facility] [employer] Comment on above: 1 Occurrences starti ng 02/07/2023 until 02/08/2024 End: 02-08-2024 Folate Folate Lab Routine 16 weeks gestation of H/O gastric sleeve 1 Occurrences starting 02/07/2023 until 02/08/2024 [facility] [employer] Comment on above: 1 Occurrences starti ng 02/07/2023 until 02/08/2024 End: 02-08-2024 Iron and TIBC Iron and TIBC Lab Routine 16 weeks gestation of H/O gastric sleeve 1 Occurrences starting 02/07/2023 until 02/08/2024 [facility] [employer] Comment on above: 1 Occurrences starti ng 02/07/2023 until 02/08/2024 End: 02-08-2024 LDH LDH Lab Routine Hypertension affecting in second trimester 16 weeks gestation of Dichorionic diamniotic twin in second trimester 1 Occurrences starting 02/07/2023 until 02/08/2024 [facility] [employer] Comment on above: 1 Occurrences starti ng 02/07/2023 until 02/08/2024 End: 02-08-2024 Natriuretic peptide B [Mass/volume] in Blood B-type natriuretic peptide Lab Routine Hypertension affecting in second trimester 16 weeks gestation of Dichorionic diamniotic twin in second trimester 1 Occurrences starting 02/07/2023 until 02/08/2024 [employer] Comment on above: 1 Occurrences starti ng 02/07/2023 until 02/08/2024 Oxygen therapy [[facility] Data Set] Initiate Oxygen Therapy Protocol Respiratory Care Routine As Needed until discontinued starting 05/16/2021 [employer] Phone: Comment on above: As Needed until disc ontinued starting 05/16/2021 End: 02-08-2024 Protein creat ratio Protein creat ratio Lab Routine Hypertension affecting in second trimester 16 weeks gestation of Dichorionic diamniotic twin in second trimester 1 Occurrences starting 02/07/2023 until 02/08/2024 [employer] Comment on above: 1 Occurrences starti ng 02/07/2023 until 02/08/2024 End: 02-08-2024 Protein, urine, 24 hour Protein, urine, 24 hour Lab Routine Hypertension affecting in second trimester 16 weeks gestation of Dichorionic diamniotic twin in second trimester 1 Occurrences starting 02/07/2023 until 02/08/2024 [employer] Comment on above: 1 Occurrences starti ng 02/07/2023 until 02/08/2024 Spirometry panel Incentive isiah metry Respiratory Care Routine Every 2hr while awake until discontinued starting 05/16/2021 [employer] Phone: Comment on above: Every 2hr while awak e until discontinued starting 05/16/2021 Surgical Pathology Surgical Path ology Lab Routine Release Upon Ordering for 1 Occurrences starting 05/16/2021 [employer] Phone: Comment on above: Release Upon Orderin g for 1 Occurrences starting 05/16/2021 End: 02-08-2024 Thiamin Vitamin B1, whole blood Thiamin Vitamin B1, whole blood Lab Routine 16 weeks gestation of H/O gastric sleeve 1 Occurrences starting 02/07/2023 until 02/08/2024 [employer] Comment on above: 1 Occurrences starti ng 02/07/2023 until 02/08/2024 End: 02-08-2024 Urate [Mass/volume] in Serum or Plasma Uric acid Lab Routine Hypertension affecting in second trimester 16 weeks gestation of Dichorionic diamniotic twin in second trimester 1 Occurrences starting 02/07/2023 until 02/08/2024 [facility] Comment on above: 1 Occurrences starti ng 02/07/2023 until 02/08/2024 End: 02-08-2024 Vitamin D 25 hydroxy Vitamin D 25 hydroxy Lab Routine 16 weeks gestation of H/O gastric sleeve 1 Occurrences starting 02/07/2023 until 02/08/2024 [facility] Comment on above: 1 Occurrences starti ng 02/07/2023 until 02/08/2024 Immunizations Immunization Date Immunization Notes Care Provider Fa cili 11-12-2016 tuberculin skin test ; purified protein derivative solution, intradermal Tatiana Yap MD Work Phone: [facility] 08-10-2013 tetanus toxoid, redu yemi diphtheria toxoid, and acellular pertussis vaccine, adsorbed Tatiana Yap MD Work Phone: [facility] 10-03-1999 diphtheria, tetanus toxoids and acellular pertussis vaccine Tatiana Yap MD Work Phone: [facility] 10-03-1999 diphtheria, tetanus toxoids and acellular pertussis vaccine, unspecified formulation Eloise BURROUGHS Work Phone: [facility] 10-03-1999 hepatitis B vaccine, pediatric or pediatric/adolescent dosage Tatiana Yap MD Work Phone: [facility] 10-03-1999 measles, mumps and rubella virus vaccine Tatiana Yap MD Work Phone: [facility] 10-03-1999 poliovirus vaccine, inactivated Tatiana Yap MD Work Phone: [facility] 01-14-1996 diphtheria, tetanus toxoids and acellular pertussis vaccine Tatiana Yap MD Work Phone: [facility] 01-14-1996 diphtheria, tetanus toxoids and pertussis vaccine Eloise BURROUGHS Work Phone: [facility] 01-14-1996 haemophilus influenz ae type b vaccine, conjugate unspecified formulation Tatiana Yap MD Work Phone: [facility] 01-14-1996 measles, mumps and rubella virus vaccine Tatiana Yap MD Work Phone: [facility] 05-21-1995 diphtheria, tetanus toxoids and acellular pertussis vaccine Tatiana Yap MD Work Phone: [facility] 05-21-1995 DTP-Haemophilus influenzae type b conjugate vaccine Eloise BURROUGHS Work Phone: [facility] 05-21-1995 haemophilus influenz ae type b vaccine, conjugate unspecified formulation Tatiana Yap MD Work Phone: [facility] 05-21-1995 poliovirus vaccine, inactivated Tatiana Yap MD Work Phone: [facility] 05-21-1995 trivalent poliovirus vaccine, live, oral Eloise BURROUGHS Work Phone: [facility] 02-21-1995 diphtheria, tetanus toxoids and acellular pertussis vaccine Tatiana Yap MD Work Phone: [facility] 02-21-1995 DTP-Haemophilus influenzae type b conjugate vaccine Eloise BURROUGHS Work Phone: [facility] 02-21-1995 haemophilus influenz ae type b vaccine, conjugate unspecified formulation Tatiana Yap MD Work Phone: [facility] 02-21-1995 hepatitis B vaccine, pediatric or pediatric/adolescent dosage Tatiana Yap MD Work Phone: [facility] 02-21-1995 poliovirus vaccine, inactivated Tatiana Ypa MD Work Phone: [facility] 02-21-1995 trivalent poliovirus vaccine, live, oral Eloise BURROUGHS Work Phone: [facility] 1994 diphtheria, tetanus toxoids and acellular pertussis vaccine Tatiana Yap MD Work Phone: [facility] 1994 DTP-Haemophilus influenzae type b conjugate vaccine Eloise BURROUGHS Work Phone: [facility] 1994 haemophilus influenz ae type b vaccine, conjugate unspecified formulation Tatiana Yap MD Work Phone: [facility] 1994 hepatitis B vaccine, pediatric or pediatric/adolescent dosage Tatiana Yap MD Work Phone: [facility] 1994 poliovirus vaccine, inactivated Tatiana Yap MD Work Phone: [facility] 1994 trivalent poliovirus vaccine, live, oral Eloise BURROUGHS Work Phone: [facility] 1994 hepatitis B vaccine, pediatric or pediatric/adolescent dosage Tatiana Yap MD Work Phone: [facility] Payers Date Payer Category Payer Medicaid [id number] 2022 Medicaid [id number] 2022 Self-pay 2019 Unknown [id number] [id number]. [id number] 1994 Unknown [id number] 2.16.840.1.343706.3.579.2. 173 1994 Unknown [id number] 2.16.840.1.673570.3.579.2. 173 1994 Unknown [id number] 2.16.840.1.836663.3.579.2. 173 1994 Unknown [id number] 2.16.840.1.786431.3.579.2. 593 1994 Unknown [id number] 2.16.840.1.237985.3.579.2. 593 1994 Unknown [id number] 2.16.840.1.902590.3.579.2. 593 1994 Unknown [id number] 2.16.840.1.749732.3.579.2. 593 1994 Unknown [id number] 2.16.840.1.571976.3.579.2. 593 1994 Unknown [id number] 2.16.840.1.247351.3.579.2. 593 1994 Unknown [id number] 2.16.840.1.620907.3.579.2. 175 1994 Unknown [id number] 2.16.840.1.864047.3.579.2. 1286 1994 Unknown [id number] 2.16.840.1.928691.3.579.2. 128 1994 Unknown [id number] 2.16.840.1.574634.3.579.2. 128 1994 Unknown [id number] 2.16.840.1.492055.3.579.2. 1285 1994 Unknown [id number] 2.16.840.1.133187.3.579.2. 1285 1994 Unknown [id number] 2.16.840.1.063338.3.579.2. 1258 1994 Unknown [id number] 2.16.840.1.548497.3.579.2. 9 1994 Unknown [id number] 2.16.840.1.178909.3.579.2. 1258 1994 Unknown [id number] 2.16.840.1.514285.3.579.2. 9 1994 Unknown [id number] 2.16.840.1.097095.3.579.2. 1258 1994 Unknown [id number] 2.16.840.1.182038.3.579.2. 9 1994 Unknown [id number] 2.16.840.1.199370.3.579.2. 1258 1994 Unknown [id number] 2.16.840.1.779252.3.579.2. 1259 1959 Private Health Insurance [id number] 1.2.840.039228.1.13.239.2. 7.3.293661.315 Private Health Insurance [facility] [id number] Unknown [id number] 2.16.840.1.495431.3.579.2. 531 Social History Date Type Detail Facility Start: 09-01-2020 End: 09-28-2020 Tobacco smoking status [facility] Current every day smoker [employer] Phone: Start: 09-01-2020 End: 07-03-2022 Cigarettes smoked current (pack per day) - Reported [employer] Start: 09-01-2020 End: 07-03-2022 Tobacco use and exposure Never used [employer] Phone: Start: 09-01-2020 End: 09-28-2020 Alcohol intake Current drinker of alcohol (finding) [employer] Phone: Start: 12-23-2019 Alcohol Comment weekly [employer] Phone: Start: 1995 Sex Assigned At Not on file [employer] Phone: Start: 04-22-2021 End: 05-16-2021 Exposure to SARS-CoV-2 (event) Not sure [employer] Exposure to SARS-CoV -2 (event) Yes [employer] Start: 01-19-2021 End: 07-03-2022 Tobacco smoking status [facility] Ex-smoker [employer] Start: 02-11-2008 End: 11-19-2020 History of tobacco use Current smoker [employer] Phone: Start: 05-02-2021 End: 02-26-2023 Alcohol intake Ex-drinker (finding) [employer] Phone: Start: 08-17-2018 End: 07-03-2022 [facility] Start: 1995 Sex Assigned At Female [facility] Start: 02-11-2008 End: 02-11-2020 History of tobacco use [facility] History of tobacco use Tobacco U se Types Packs/Day Years Used Date Smoking Tobacco: Former Cigarettes Quit: 2020 Vaping/E-cigarettes Smokeless Tobacco: Former Quit: 11/06/2020 [facility] Start: 02-05-2023 Tobacco use and exposure Former smokeless tobacco user [facility] End: 11-06-2020 History of tobacco use User of smokeless tobacco [facility] Frequency of Communication with Friends and Family More than three times a week [facility] Start: 08-17-2018 Education 12 [facility] Start: 05-18-2022 Alcohol Comment social, every other weekend [facility] Start: 10-31-2022 [facility] Within the last year , have [...] Comment caffeine: 1-2 cups per day coffee [facility] Clinical Notes 12-04-2020 to 03-19-2023 HEIKE [...] ANGIOGRAM TAVR 09/19/2020 SLEEVE GASTROPLASTY 2021 TONSILLECTOMY 1999 Allergies Allergen Reactions Ibuprofen Has gastric sleeve [...] of: HEIKE Meeks documented in this encounter [facility] 03-05-2023 History of Presen t illness Narrative Headache/epigastric pain/blurry vision/swelling? No Cramping/contractions? No Abnormal vaginal discharge? No Spotting or vaginal bleeding? No Loss of fluid like your water may have broken? No Recent ER visits or hospitalizations? Patient reports visit to [facility] approximately two weeks ago to r/o ROM [...] you for allowing me to participate in [facility]. If there are any questions, please do not hesitate to call me. Sincerely, KAROLINE HOPSON MD documented in this encounter [employer] 02-24-2023 Miscellaneous Notes Incoming telephone call from patient with concerns of leakage of fluid. Patient called in and stated that she is Leaking clear fluid and has been. Education Analyst asked if she had spoken to her OB provider and she said that she had, but they told her that she is basically too early to be leaking any fluid. Education Analyst recommended patient present to the nearest emergency room to be evaluated. Patient verbalized understanding and had no further questions. documented in this encounter [facility] 02-24-2023 Telephone encounter Note Incoming telephone call from patient with concerns of leakage of fluid. Patient called in and stated that she is Leaking clear fluid and has been. Education Analyst asked if she had spoken to her OB provider and she said that she had, but they told her that she is basically too early to be leaking any fluid. Education Analyst recommended patient present to the nearest emergency room to be evaluated. Patient verbalized understanding and had no further questions. [facility] 02-07-2023 History of Presen t illness Narrative Headache/epigastric pain/blurry vision/swelling? Occasional headaches Cramping/contractions? No Abnormal vaginal discharge? No Spotting/vaginal bleeding? No Loss of fluid like your water may have broken? No Cats in the home? No Do you change the litter box? No Flu vaccine? No Genetic testing done this here or other office? Yes Have you been seen here at [facility] in a previous ? No Recent ER visits or hospitalizations? No Bring blood sugar log or meter with you today? (Please bring them with you for every visit at [facility]) N/A Traveled outside the country in [...] TESTS AND ULTRASOUND REPORTS: Referral records and [facility] chart were reviewed Pertinent Ultrasound [...] - 1.00 mg/dL Final METHOD TRACEABLE TO [facility] STANDARD Glucose 01/03/2023 71 65 - 99 [...] operators who are performing tests using either [employer] or [employer] systems and is limited to laboratories that [...] repeat. Fact Sheet for Healthcare Providers: https://www.f da.gov/media/102527/download Fact Sheet for Patients: https://www.fda.gov/media/853094 /download HABITS: Patient activity no restrictions, diet [...] a but with an anticipation of excellent half-way outcomes. In regards to the spontaneous processes, [...] previously recommended threshold of 160/110. Reference: PMID: 11213189, 2021. Blood pressures do increase as progresses [...] preeclampsia prevention as is recommended by the [place] [employer] Committee Opinion No. 743. [...] aspirin vs 10.3% no aspirin, p=0.45) (PMBID: 12609250). Given well-established benefits baby aspirin for the prevention of preeclampsia, I recommend initiating baby aspirin even in the setting of history of Joe-en-Y surgery. Micronutrient Dosing Recommendations: Calcium: recommend 1000-1200mg daily; if deficient, recommend 1800-36090 mg PO daily in divided doses Vitamin [...] sooner if clinically indicated Follow up in [facility] in 4 weeks for anatomy and clinic follow-up DISPOSITION: At this point the patient is in complete care of her grain weigher. Patient does have ultrasound and office visit [...] procedures Referring and communicating with other health patient centered care specialist (not separately reported) Documenting clinical information in the electronic or other health record Tatiana Yap MD Maternal- Medicine [facility] [address] [place] [address] [facility], the CDC, and other organizations representing maternal and public health professionals recommend that , , and lactating people and those considering receive the COVID-19 vaccination. Vaccination is the best method to reduce maternal and complications of SARS-CoV-2 infection. This document was created with [employer] technology. Though I make every effort to review the dictation as it is transcribed, on occasion the spoken word can be misinterpreted by the technology leading to inappropriate words, phrases, or sentences. This note is addressed to the requesting provider as a consultation for clinical guidance. Specific medical abbreviations are occasionally used and those are generally approved by the [place]?Board of?Obstetrics and?Gynecology?as well as?Maddison hodgson abbreviations. The above plan of care was based solely on the diagnoses for which a consultation was requested. ?More frequent testing may be indicated based on her other medical/obstetrical conditions. The management of other or medical conditions is beyond the scope of requested consultation and will continue to be followed by the primary grain weigher or primary care provider. Note to patient: [...] of the practitioner. documented in this encounter [facility] 10-12-2022 Evaluation note Encounter Date Diagnosis [...] take Sudafed and/or Mucinex for congestion. Take jwxg-svj-ikict er Robitussin or Delsym for cough. Follow-up with your family physician if no improvement in 2 to 3 days. Off work tomorrow. Oct, Cough (ICD-10 - R05.9) Oct, Bronchitis (ICD-10 - J40) Acute bronchitis material was printed [employer] Other 10-19-2022 NotePatient Education Materials [id number] History of Present illness Narrative* Payal Richardson [...] and patient voices understanding [facility] Phone: 1(859) 818-674104-07-2022 Hospital Discharge instructions* Instructions* Hannah Zavaleta RN - 05/17/2021 Discharge Instructions for Bariatric Surgery You had a Laparoscopic Sleeve Gastrectomy (95951) surgery to treat obesity. Recovery from this [...] scheduled appointment, please call the office at [phone]. Call Your Doctor If Any of the [...] sent through Care Everywhere. * Enoxaparin (Lovenox) (Thai) * Video: How to Give Yourself an Anticoagulant (Blood Thinner) Shot (Thai) [facility]: [phone]) 474-981503-23-2022 Hospital Discharge instructions* Instructions* Kendal Wilhelm APRN [...] of Surgery/Procedure As a patient at [facility] you can expect quality medical and nursing care that is centered on your individual needs. Our goal is to make your surgical experience as comfortableas possible Directions to the Surgery Center The surgery Center at [facility] is located in the Emergency Room parking lot on [address] or there is additional parking across the street. The address is [address] [place] [address]. Please check in at the Surgery Center [...] on the day of surgery please contact [phone] or [phone] If you have any other questions regarding your procedure/surgery please call your surgeon's office. documented in this [facility] Phone: [phone]) 810-814703-23-2022 History of Present illness Narrative* Eloise Chi [...] 1 week, no complications DM (diabetes mellitus) ([facility]) Environmental allergies GERD (gastroesophageal reflux disease) History of blood transfusion no reactions Metabolic syndrome Obesity PCOS (polycystic ovarian syndrome) Under care of team 05/02/2021 pcp-Dr MelgozaCkisgb-zhuevno-zcfj visit april 2021 Patient was evaluated in PAT & anesthesia guidelines were applied. NPO guidelines, medication instructions and scheduled arrival time were reviewed with patient. Anesthesia contacted: no Medical or cardiac clearance ordered: no, medical clearance obtained. LAURA Garcia CNP 05/02/21 11:53 AM documented in this [employer] Phone: [phone]) 170-720010-25-2021 Evaluation note* Encounter Date Diagnosis Assessment Notes Treatment Notes Treatment Clinical Notes Nov, Contact with and (suspected) exposure to other viral communicable diseases (ICD-10 - Z20.828) Nov, Viral URI with cough (ICD-10 - J06.9) No COVID test completed at this time. Advised patient that will tx as viral URI. Supportive care as directed, increase fluids and rest, Tylenol/Motrin as directed, rx of Hines and Flonase as directed, cool mist humidifier, [...] Patient care instructions given in writting by [facility] Care At Home document [employer] Other Evaluation note* Diagnosis LYNN (obstructive sleep apnea) Obstructive sleep apnea (adult) (pediatric) documented in this encounter [employer] Phone: evaluation note* Diagnosis S/P laparoscopic sleeve gastrectomy- Primary Post-op pain Other acute postoperative pain documented in this encounter [employer] Phone: evaluation noteNo assessment information available [facility] Work Phone: Evaluation noteNo InformationNort VideoNot.[email or web address] Other Evaluation note* Diagnosis Hypertension affecting in second trimester- Primary 16 weeks gestation of Dichorionic diamniotic twin in second trimester H/O gastric sleeve [facility] Diagnosis Hypertension affecting in second trimester 16 weeks gestation of Dichorionic diamniotic twin in second trimester [facility] Diagnosis Hypertension affecting in second trimester- Primary Dichorionic diamniotic twin in second trimester documented in this encounter [facility] gis.toEvaluation note* Diagnosis History of sleeve gastrectomy- Primary History of induced hypertension documented in this encounter [facility] Diagnosis Second trimester state, incidental Diabetes mellitus screening Screening for diabetes mellitus [facility] - [facility]* Type Description Date Medical History METABOLIC SYNDROME Medical History SYNCOPE Medical History anxiety Surgical History WISDOM TEETH Surgical History TONSILECTOMY Surgical History ENDOSCOPY AND COLONSCOPY Surgical History C section Hospitalization History see above [employer] Other Hisaopc general Narrative - Reported* Type Description Date Medical History METABOLIC SYNDROME Medical History SYNCOPE Medical History anxiety Surgical History WISDOM TEETH Surgical History TONSILECTOMY Surgical History ENDOSCOPY AND COLONSCOPY Surgical History C section Surgical History gastric sleeve Hospitalization History see above [employer] Other Hiscyia general Narrative - Reported* Type Description Date Medical History METABOLIC SYNDROME Medical History SYNCOPE Medical History anxiety Surgical History WISDOM TEETH Surgical History TONSILECTOMY Surgical History ENDOSCOPY AND COLONSCOPY Surgical History C section Surgical History gastric sleeve Surgical History cholcystectomy 09/10/2022 Hospitalization History see above [employer] Other InstructionsNot on filedocumented in this encounter [...] BIOPSY, EGD- GI SCHEDULED Patricia Curry DO [address] [facility] [address] [place] [address] [employer] [address] [place] [address] Referral ID Status Reason Start Date Expiration Date Visits Re quested Visits Authorized [id number] 1 1 [employer] Phone: Summary Purpose Family History No Family [...] Diagnostic Sleep Study Ike Ortiz MD [address] [facility] [address] [place] [address] Specialty Diagnoses / Procedures Referred By Contac t Referred To Contact Diagnoses Hypertension affecting in second trimester 16 weeks gestation of Dichorionic diamniotic twin in second trimester Procedures ECG 12 lead Tatiana Yap MD [address] [place] [address] Referral ID Status Reason Start Date Expiration Date V isits Requested Visits Authorized [id number] Pending Review 02/07/2023 02/07/2024 1 1 Specialty Diagnoses / Procedures Referred By Contac t Referred To Contact Maternal and Medicine Diagnoses Hypertension affecting in second trimester Dichorionic diamniotic twin in second trimester Procedures US MFM with or without consult Karoline Hoposn MD [address] [place] [address] [facility] Maternal Med [address] [place] [address] Referral ID Status Reason Start Date Expiration Date V isits Requested Visits Authorized [id number] Pending Review 03/05/2023 03/04/2024 1 1 Chief Complaint and Reason for Visit Chief Complaint Dysuria Additional Source Comments INFORMATION SOURCE (unrecogn ized section and content) DATE CREATED AUTHOR 07/31/2017 [facility] DATE CREATED AUTHOR AUTHOR'S ORGANIZ ATION 05/21/2021 [facility] DATE CREATED AUTHOR AUTHOR'S ORGANIZ ATION 12/03/2021 [facility] DATE CREATED AUTHOR AUTHOR'S ORGANIZ ATION 01/12/2022 [facility] DATE CREATED AUTHOR AUTHOR'S ORGANIZ ATION 02/11/2022 [facility] DATE CREATED AUTHOR AUTHOR'S ORGANIZ ATION 09/13/2022 [facility] DATE CREATED AUTHOR AUTHOR'S ORGANIZ ATION 02/09/2023 [facility] DATE CREATED AUTHOR AUTHOR'S ORGANIZ ATION 04/12/2023 [facility] DATE CREATED AUTHOR AUTHOR'S ORGANIZ ATION 04/12/2023 [facility] EPIC Reason for Visit (unrecogniz ed section and content) Status Reason Specialty Diagnoses / Procedures Referred By Contact Referred To Contact [facility] Diagnoses LYNN (obstructive sleep apnea) Procedures Baseline Diagnostic Sleep Study Ike Ortiz MD [address] [address] Status Reason Specialty Diagnoses / Procedures Referre d By Contact Referred To Contact Diagnoses K21.9 GERD E66.9 OBESITY Procedures DE EGD TRANSORAL BIOPSY SINGLE/MULTIPLE EGD BIOPSY Patricia Curry, DO [address] [facility] [address] [place] [address] [facility] Reason Comments twin HX C/S HX gastric sleeve HX PTD Reason Comments Dichorionic Diamniotic Twin Hypertension Reason Comments Routine Visit Care Teams (unrecognized sec tion and content) Napper Grinder Relationship Specialty Start Date End Date Stephane Martin MD [address] [place] [address] PCP - General 05/17/20 Napper Grinder Relationship Specialty Start Date End Date Stephane Martin MD [address] [place] [address] PCP - General 05/17/20 Team Status: Inactive Member Role Status Dates Ale Shields APRN Attending Provider Active Napper Grinder Relationship Specialty Start Date End Date Margot Toure DO [address] [place] [address] PCP - General Family Medicine 01/03/23 Napper Grinder Relationship Specialty Start Date End Date Margot Toure DO [address] [place] [address] PCP - General Family Medicine 01/03/23 Napper Grinder Relationship Specialty Start Date End Date Margot Toure DO [address] [place] [address] PCP - General Family Medicine 01/03/23 Napper Grinder Relationship Specialty Start Date End Date Margot Toure DO [address] [place] [address] PCP - General Family Medicine 01/03/23 Napper Grinder Relationship Specialty Start Date End Date Margot Toure DO [address] [facility] [place] [address] PCP - General Family Medicine 01/03/23 Napper Grinder Relationship Specialty Start Date End Date Margot Toure DO [address] [place] [address] PCP - General Family Medicine 01/03/23 Napper Grinder Relationship Specialty Start Date End Date Margot Toure DO [address] [place] [address] PCP - General Family Medicine 07/01/22 Napper Grinder Relationship Specialty Start Date End Date Margot Toure DO [address] [place] [address] PCP - General Family Medicine 07/01/22 Ordered [...] (Given - Provider: Sharmin Sam APRN - CHIEF VENDOR QUALITY) ceFAZolin (ANCEF) 3000 mg in sterile water [...] (NoRateChange - Provider: Sharmin Sam APRN - CHIEF VENDOR QUALITY)0856 (Anesthesia Volume Adjustment - Provider: Sharmin Sam APRN - CHIEF VENDOR QUALITY) 1631 (Stopped - Provider: Hannah Zavaleta RN) [...] PACU only 0916 (Given - Provider: Sivan Lara, ANCELMO) ondansetron (ZOFRAN) injection 4 mg 4 mg, [...] 0023 (Given - Provid er: Nohemy Underwood, ANCELMO)0950 (Given - Provider: Hannah Zavaleta RN) sodium chloride 0.9 % irrigation (COMPLETED) CONTINUOUS PRN, Starting on Fri05/16/21 at 0800, Intra-op 0800 (New Bag - Provider: Patricia Curry, DO - Comment: 1000 ml. 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 [facility]. provides no warranty or guarantee of the accuracy or completeness of information in this document.
== END 2023-05-01 09:00 | disposition home or self-care (01) ==
LOC: NOMS 09:00
PROVIDERS: Visit Provider Obstetrics & Gynecology
DX: O30.003 Twin pregnancy, unspecified number of placenta and unspecified number of amniotic sacs, third trimester (principal); Z3A.28 28 weeks gestation of pregnancy
CPT/HCPCS: 76816

== ENCOUNTER 2023-05-05 15:46 | Emergency (ER) | payer MEDICAID, SELFPAY ==
[2023-05-05] VITALS (7 sets, daily range): BP systolic 104–120; BP diastolic 67–78; PULSE 97; RESP 16; TEMP 36.9; O2SAT 96–99; BMI 37.6
--- NOTE | 2023-05-05 16:46 | ED.GENADUL1 ---
HPI - General Adult General Chief complaint: Recheck/Abnormal Lab/Rx Stated complaint: Chest Pain, Hypotension, 28-wks . ER 1st Time Seen by Provider: 05/05/23 16:13 Source: patient Mode of arrival: walk-in Limitations: no limitations History of Present Illness HPI narrative: 27-year-old female presents to the emergency department for low blood pressure. She was at work and she had it checked and she reports that it was low. She works at an [employer]. She felt a bit dizzy. She is currently 28 weeks . No vaginal bleeding or abdominal pain or cramping. No vomiting or diarrhea. She has been eating and drinking. In a previous she had preeclampsia. She has had no blood pressure issues during this and is not on any blood pressure medications. Related Data Home Medications ?Medication ?Instructions ?Recorded ?Confirmed aspirin 81 mg tablet,delayed 81 mg PO DAILY 05/05/23 05/05/23 release (Adult Aspirin Regimen) hydroxyzine HCl 25 mg tablet 25 mg PO DAILY 05/05/23 05/05/23 iron 05/05/23 Previous Rx's ?Medication ?Instructions ?Recorded promethazine 25 mg tablet 25 mg PO Q6H PRN nausea and 12/31/22 vomiting #30 tabs Allergies Allergy/AdvReac Type Severity Reaction Status Date / Time No Known Drug Allergies Allergy Verified 05/05/23 15:59 Review of Systems ROS Narrative A ten point review of systems is negative except as noted above. PFSH PFSH Social History Smoking status: Former smoker Exam Narrative Exam Narrative: Nurses note and vital signs reviewed and patient is not hypoxic. General: The patient appears well and in no apparent distress. Patient is resting comfortably on cart. Skin: Warm, dry, no pallor noted. There is no rash noted. Head: Normocephalic, atraumatic Eye: Normal conjunctiva, no drainage Ears, Nose, Mouth, and Throat: oral mucosa is moist. Nares patent. Cardiovascular: Regular Rate and Rhythm Respiratory: Patient is in no distress, no accessory muscle use, lungs are clear to auscultation, no wheezing, rales or rhonchi Back: non-tender GI: Gravid and nontender Musculoskeletal: The patient has no evidence of calf tenderness, no pitting edema, symmetrical pulses noted bilaterally Neurological: A&O, normal speech Psychiatric: Cooperative Constitutional Vital Signs, click to edit/add: Last Vital Signs Temp 98.4 F 05/05/23 16:02 Pulse 97 H 05/05/23 16:02 Resp 16 05/05/23 16:02 BP 104/67 05/05/23 16:30 Pulse Ox 99 05/05/23 16:40 O2 Del Method Room Air 05/05/23 16:02 Course Vital Signs Vital signs: Vital Signs Temperature 98.4 F 05/05/23 16:02 Pulse Rate 97 H 05/05/23 16:02 Respiratory Rate 16 05/05/23 16:02 Blood Pressure 120/78 05/05/23 16:02 Pulse Oximetry 98 05/05/23 16:02 Oxygen Delivery Method Room Air 05/05/23 16:02 Temperature 98.4 F 05/05/23 16:02 Pulse Rate 97 H 05/05/23 16:02 Respiratory Rate 16 05/05/23 16:02 Blood Pressure 104/67 05/05/23 16:30 Pulse Oximetry 99 05/05/23 16:40 Oxygen Delivery Method Room Air 05/05/23 16:02 Medical Decision Making MDM Narrative Medical decision making narrative: Multiple blood pressure readings here have been normal. She is reassured and the case was discussed with Dr. Adames. Discharge Plan Discharge Stand Alone Forms: Portal Instructions Chief Complaint: Recheck/Abnormal Lab/Rx Clinical Impression: No problem, feared complaint unfounded Patient Disposition: Home, Self-Care Time of Disposition Decision: 16:54 Condition: Good Mode of Transportation: Private Vehicle Prescriptions / Home Meds: No Action promethazine 25 mg tablet 25 mg PO Q6H PRN (Reason: nausea and vomiting) Qty: 30 0RF aspirin [Adult Aspirin Regimen] 81 mg tablet,delayed release (DR/EC) 81 mg PO DAILY hydroxyzine HCl 25 mg tablet 25 mg PO DAILY iron Print Language: Ethiopian Instructions: (ED), at 27 to 30 Weeks (ED) Referrals: Physician,Non-Staff, MD [Primary Care Provider] - 1 week
== END 2023-05-05 17:14 | disposition home or self-care (01) ==
PROVIDERS: Emergency Provider Emergency Medicine
DX: Z71.1 Person with feared health complaint in whom no diagnosis is made (principal)
CPT/HCPCS: 99282

== ENCOUNTER 2023-05-15 08:55 | Outpatient (OUT) | payer MEDICAID, SELFPAY ==
--- NOTE | 2023-05-15 09:00 | CA_ITS ---
Patient Name: JADEN VELÁSQUEZ MR#: [id number] : 1995 Exam Date: 05/15/2023 Ordering Doctor: DR Nigel Adames . ECHOCARDIOGRAM REPORT PROCEDURE: CA ECHO DOPPLER COMPLETE INDICATIONS: Syncope, 30 weeks COMPARISON: None. DESCRIPTION: COMPLETE ECHOCARDIOGRAM Real-time transthoracic echocardiography with 2D, M-mode, spectral and color flow Doppler performed. QUALITY: Technical quality was good. 67 , 240#, BSA 2.18 m2, BP 104/68 LEFT VENTRICLE: Normal chamber size. Thickened septal wall. Normal systolic function. LV EF: Normal left ventricular ejection fraction, (55%). DIASTOLIC: Normal diastolic function. ATRIAL SEPTUM: Visually appears intact. LEFT ATRIUM: Normal chamber size. RIGHT ATRIUM: Normal chamber size. RIGHT VENTRICLE: Normal chamber size. Normal right ventricular systolic function. TRICUSPID VALVE: Normal mobility and thickness. No stenosis with trivial regurgitation. RVSP 47 mmHg MITRAL VALVE: Normal mobility and thickness. No evidence of mitral valve stenosis. There is no mitral annular calcification. No mitral regurgitation. AORTIC VALVE: Normal trileaflet appearance. No visible sclerosis. Normal leaflet mobility. No evidence of aortic valve stenosis. No aortic regurgitation. AORTIC ROOT: Normal diameter and appearance. PULMONIC VALVE: Normal thickness and mobility. No stenosis. Mild regurgitation. PERICARDIUM: No evidence of pericardial effusion. IVC: Collapses with inspirations. PLEURA: CONCLUSION: 1. Normal chamber size. 2. Normal ventricular function. LVEF is 55%. 3. No significant valvular dysfunction. 4. Moderately elevated right-sided pressures. 5. No pericardial effusion. Adult Echocardiography Procedure Report Left Ventricle LVEDD (3.7 - 5.6 cm): 5.28 cm LVESD (2.2 - 4.0 cm): 3.99 cm LVIVS thickness (0.6 - 1.2 cm): 1.12 cm LVPW thickness (0.5 - 1.0 cm): 0.92 cm E - e': 6.67 LVOT Max Gradient: 4.05 mm[Hg], 3.79 mm[Hg] Peak Velocity (LVOT): 1.01 m/s, 0.97 m/s LVOT Diameter 2.23 cm Left Atrium LA Volume Index (2D A2C): 21.18 ml/m2 Left Atrium Systolic Dimension: 3.52 cm Mitral Valve MV E to A Ratio: 1.28 Mitral Valve A-Wave Peak Velocity: 0.54 m/s Mitral Valve E-Wave Peak Velocity: 0.69 m/s Right Ventricle Aorta AO Root Diam: 3.49 cm Aortic Valve AoV Area (Peak Tigre): 2.61 cm2, 2.74 cm2, 2.53 cm2 AoV Area (VTI): 2.16 cm2, 2.43 cm2, 2.16 cm2 Peak Velocity(Antegrade Flow): 1.43 m/s, 1.50 m/s, 1.38 m/s Peak Gradient(Antegrade Flow): 8.16 mm[Hg], 8.98 mm[Hg], 7.62 mm[Hg] Mean Velocity(Antegrade Flow): 0.99 m/s, 0.96 m/s, 0.93 m/s Mean Gradient(Antegrade Flow): 4.45 mm[Hg], 4.28 mm[Hg], 4.00 mm[Hg] Velocity Time Integral: 23.71 cm, 27.14 cm, 21.97 cm Tricuspid Valve Peak Velocity (Regurgitant Flow): 3.31 m/s Pulmonic Valve Peak Gradient: 3.33 mm[Hg], 3.22 mm[Hg] Right Atrium Right Atrium Systolic Pressure: 39.72 ml, 39.72 ml Dictated by: Michael Pal M.D. on 05/15/2023 at 16:47 Approved by: Michael Pal M.D. on 05/15/2023 at 16:51
== END 2023-05-15 08:56 | disposition home or self-care (01) ==
LOC: CARD 08:55
PROVIDERS: Visit Provider Obstetrics & Gynecology
DX: R55 Syncope and collapse (principal)
CPT/HCPCS: 93306

== ENCOUNTER 2023-05-23 07:24 | Outpatient (RCR) | payer MEDICAID, SELFPAY ==
[2023-05-16 13:12] VITALS: BP 117/81; PULSE 101; TEMP 36.6; O2SAT 100
--- NOTE | 2023-05-23 09:35 | PC.NURSE ---
0855 arrival ambulatory to chair 3, alert oriented, offers no complaints, stated she did well after last iron infusion. 0900 #22 iv initiated RACF on 1 attempt, tolerated well.
--- NOTE | 2023-05-23 09:36 | PC.NURSE ---
0937 iv iron initiated
== END 2023-06-10 23:59 | disposition home or self-care (01) ==
LOC: INF 07:24
PROVIDERS: Visit Provider Obstetrics & Gynecology
DX: D50.9 Iron deficiency anemia, unspecified (principal)
CPT/HCPCS: 96365; J1439

== ENCOUNTER 2023-06-02 07:05 | Outpatient (OUT) | payer MEDICAID, SELFPAY ==
--- NOTE | 2023-06-02 | US_ITS ---
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 FINDINGS: FINDINGS: BABY A BREATHING MOVEMENTS: 2.0 GROSS BODY MOVEMENTS: 2.0 TONE: 2.0 AMNIOTIC FLUID VOLUME: 2.0 PRESENTATION: breech HEART RATE: 134.3 bpm GESTATIONAL AGE: 32 weeks 4 days BABY B BREATHING MOVEMENTS: 2.0 GROSS BODY MOVEMENTS: 2.0 TONE: 2.0 AMNIOTIC FLUID VOLUME: 2.0 PRESENTATION: TRANSVERSE HEART RATE: 134.3 bpm GESTATIONAL AGE: 32 weeks 4 days CONCLUSION: Total biophysical profile score for baby A 8 and baby B 88. Electronically authenticated by: JAMEEL BURGOS Date: 06/03/2023 08:27
--- NOTE | 2023-06-02 | US_ITS ---
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 TECHNIQUE: Ultrasound biophysical profile was performed in the radiology department. FINDINGS: BABY A BREATHING MOVEMENTS: 2.0 GROSS BODY MOVEMENTS: 2.0 TONE: 2.0 AMNIOTIC FLUID VOLUME: 2.0 PRESENTATION: breech HEART RATE: 134.3 bpm GESTATIONAL AGE: 32 weeks 4 days BABY B BREATHING MOVEMENTS: 2.0 GROSS BODY MOVEMENTS: 2.0 TONE: 2.0 AMNIOTIC FLUID VOLUME: 2.0 PRESENTATION: TRANSVERSE HEART RATE: 134.3 bpm GESTATIONAL AGE: 32 weeks 4 days CONCLUSION: Total biophysical profile score for baby A 09/17 and baby B 09/17. Electronically authenticated by: JAMEEL BURGOS Date: 06/03/2023 07:15
--- OUTSIDE RECORDS SUMMARY | 2023-06-02 07:09 | XMS_ITS | CCD ---
Author Organization [facility] Care Team Providers Care Business Project Manager Name Role Phone Neo Anderson Unavailable Unavailable Neo Anderson Unavailable Unavailable Jose Maria Ortega MD, [facility] Primary Care Provider DOC OKEEFE Referring Unavailable JOSE MARIA ORTEGA, STEPHANE Primary Care Unavailtina e DOC OKEEFE Referring Unavailable JOSE MARIA ORTEGA, [facility] Primary Care Unavailabl e IKE MORENO Referring Unavailable JOSE MARIA ORTEGA, [facility] Primary Care Unavailabl e Ale Harris Unavailable [...] Unavailable NO FAMILY, PHYSICIAN Primary Care Unavailable Cornelius LAURA Ale Kishor Attending Provider [phone] Cornelius Ale Unavailable PATRICIA MARS Attending Unavailable PATRICIA MARS [...] Unavailable YAW, MARGOT G Primary Care Unavailable AZCARIAS, NIGEL R Referring Unavailable YAW, MARGOT G Primary Care Unavailable KAROLINE HOPSON Attending Unavailable ZACARIAS, NIGEL R Referring Unavailable YAW, MARGOT G Primary Care Unavailable ZACARIAS, NIGEL Attending Unavailable ZACARIAS, NIGEL Attending Unavailable ELOISE DOMINGUEZ Attending Unavailable ZACARIAS, NIGEL Attending Unavailable ZACARIAS, NIGEL Attending Unavailable KIMMY MACHUCA Attending Unavailab ELOISE Ivey Attending Unavailable ZACARIAS, NIGEL Attending Unavailable YAW, MARGOT G Attending Unavailable ZACARIAS, NIGEL Attending Unavailable YAW, MARGOT G Attending Unavailable Allergies Allergy Classification Reported Allergen(s) Allergy Type Date of Onset Reaction(s) Facility (11 sources) Ibuprofen; Translations: [IBUPROFEN] Drug Allergy 09-19-2021 [facility] Medications Current Medications Medication Drug Class(es) [...] 30 mg oral tablet (1 source) Uncompetitive K-ypwqen-J-aspartate Receptor Antagonist, Sigma-1 Agonist Start: 2020 take 1 tablet by mouth every eight hours Corona DMT 30-30 MG 1 tablet Orally every [...] Iron (2 sources) Iron Active lactobacillus acidophilus [id number] unt / pectin 100 mg oral tablet (6 sources) acidophilus-pect in, citrus 25 million cell -100 mg tablet Take by mouth 3 (three) times a day with meals. 0 Active metFORMIN hydrochloride 500 mg oral tablet (1 source) Biguanide Start: 03-12-19 22 take 1 tablet by mouth twice daily [...] extended release oral tablet (2 sources) Uncompetitive Q-gkfkvq-H-asparta te Receptor Antagonist, Sigma-1 Agonist Start: 01-14-2022 [...] Interpretation Reference Range Facility [facility] UA (CLEAN/CATCH) ENVIRONMENTAL ENGINEER SCIENTIST/LISA RO IF IND.on 03-24-2023 BILIRUBIN URINE Negative NEGATIVE [facility]care BLOOD URINE Negative NEGATIVE [facility] Clarity (U) CLEAR CLEAR [facility] Color (U) YELLOW YELLOW [facility] GLUCOSE URINE UA Negative NEGATIVE mg/dL [facility] Interpretation and review of laboratory results Abnormal [facility] Ketones Ql (U) TRACE Abnormal NEGATIVE mg/dL [facility]althcare Leukocyte esterase Test strip Ql (U) Negative NEGATIVE [facility] NITRITE URINE Negative NEGATIVE [facility] pH (U) 6.0 [pH] 5.0 - 9.0 [facility] PROTEIN URINE TRACE NEG/TRACE mg/dL [facility] SPECIFIC GRAVITY URINE >=1.030 Abnormal 1.005 - 1.025 [facility] URINE MICROSCOPIC INDICATED NO [facility] UROBILINOGEN URINE 0.2 EU/dL 0.2 - 1.0 EU/dL [facility] Urinalysis macro (dipstick) panel (U)on 03-19-2023 Bilirubin, UA Negative Negative - 4(70) +++ mg/dL [facility] Blood, UA Negative Negative - 50 Krzysztof/mcL [facility] Clarity, UA Clear [facility] Color, [facility] Glucose, UA Negative Negative - 1999(110) ++++ mg/dL [facility] Interpretation and review of laboratory results Abnormal [facility] re Ketones, UA Negative Negative - 160(16) ++++ mg/dL [facility] Leukocytes, UA Negative Negative - 500+++ Mckayla/mcL [facility] Nitrite, UA Negative Negative - Positive [facility] pH, UA 6.0 5 - 9 [facility] e Protein, UA Positive Negative - 1999(20) ++++ mg/dL [facility] Spec Grav, UA 1.030 1 - 1.03 [facility] Urobilinogen, UA 0.2 0.2 - 12 mg/dL [facility] e CBC without diffon External Hematocrit Hct 33.7 [facility] Comment on above: See attached External Hemoglobin 10.9 [facility] Comment on above: See attached External MCH 29.0 [facility] alth System Comment on above: See attached External Mchc 32.3 [facility]alth System Comment on above: See attached External Mcv 89.6 [facility] He alth System Comment on above: See attached External Mpv 9.7 [facility] System Comment on above: See attached External Platelet Count 268 [facility] Comment on above: See attached External Rbc Count 3.76 [facility] Comment on above: See attached External Rdw 13.4 [facility] System Comment on above: See attached External Wbc Count 9.5 [facility] Comment on above: See attached [facility] [place] [facility] Urine protein creatinine rat ioon 02-27-2023 Protein/Creatinine (U) [Mass ratio] 0.10 mg/g [facility] Comment on above: see attached [facility] Ultrasound - Officeon 2022 Radiology Study observation (narrative) [facility] HIV 1&2 AB/AG Screen (P24 AG )on 12-20-2022 HIV 1&2 AB/AG Non-Reactive [facility] Hepatitis B surface antigeno n 12-20-2022 Hepatitis B Surface Antigen Negative [facility] No Panel Informationon 12-20 [facility] Rubella IGG immune statuson 12-20-2022 Rubella immune IgG 1.96 [facility] Syphilis Total(Unknown Syphi lis Status)on 12-20-2022 Syphilis Non-Reactive [facility] Ultrasound - Officeon 2022 SEE SCANNED REPORt MANUAL LY TRANSCRIBED RESULTS [facility] [place] [facility] COVID + FLU Quick Testingon 10-12-2022 SARS-CoV-2 (COVID-19) RNA BECCA+probe Ql (Unsp spec) negtaive [employer] [facility] [employer] Other COVID + FLU Quick Testing Negative [employer] [facility] [employer] Other Basic Metabolic Profon 09-11 Anion gap [Moles/Vol] 9 mmol/L Normal 9-17 [facility] Comment on above: Performed By: #### B FIFI, CBC, PT #### [employer] [address] [place] [address]285 Manager Heavy Equipment: Anthony Aguilar MD Calcium [Mass/Vol] 8.8 mg/dL Normal 8.6-10.4 [facility] Comment on above: Performed By: #### B MP, CBC, PT #### [employer] [address] [place] [address] 94632 Manager Heavy Equipment: Anthony Aguilar MD Chloride [Moles/Vol] 106 mmol/L Normal 98-107 [facility] Comment on above: Performed By: #### B MP, CBC, PT #### [employer] [address] [place] [address] 61613 Manager Heavy Equipment: Anthony Aguilar MD CO2 [Moles/Vol] 23 mmol/L Normal 20-31 [facility] Comment on above: Performed By: #### B MP, CBC, PT #### [facility] [employer] [address] [place] [address] 35157 Manager Heavy Equipment: Anthony Aguilar MD Creatinine [Mass/Vol] 0.7 mg/dL Normal 0.5-0.9 [facility] Comment on above: Performed By: #### B MP, CBC, PT #### [facility] [employer] [address] [place] [address] 45252 Manager Heavy Equipment: Anthony Aguilar MD GFR/1.73 sq M.predicted among non-blacks MDRD (S/P/Bld) [Vol rate/Area] mL/min/{1.73_m2} Normal >60 [facility] Comment on above: Result Comment: [...] By: #### B FIFI, CBC, PT #### [facility] [employer] [address] [place] [address] 30102 Manager Heavy Equipment: Anthony Aguilar MD Glucose [Mass/Vol] 79 mg/dL Normal 70-99 [facility] Comment on above: Performed By: #### B FIFI, CBC, PT #### [facility] [employer] [address] [place] [address] 62518 Manager Heavy Equipment: Anthony Aguilar MD Potassium [Moles/Vol] 4.1 mmol/L Normal 3.7-5.3 [facility] Comment on above: Performed By: #### B MP, CBC, PT #### [facility] [employer] [address] [place] [address] 64844 Manager Heavy Equipment: Anthony Aguilar MD Sodium [Moles/Vol] 138 mmol/L Normal 135-144 [facility] Comment on above: Performed By: #### B MP, CBC, PT #### [facility] [employer] [address] [place] [address] 27680 Manager Heavy Equipment: Anthony Aguilar MD Urea nitrogen [Mass/Vol] 11 mg/dL Normal 6-20 [facility] Comment on above: Performed By: #### B MP, CBC, PT #### [facility] [employer] [address] [place] [address] 15301 Manager Heavy Equipment: Anthony Aguilar MD CBCon 09-11-2022 Erythrocyte distribution width (RBC) [Ratio] 13.2 % Normal 11.8-14.4 [facility] Comment on above: Performed By: #### B MP, CBC, PT #### [facility] [employer] [address] [place] [address] 73961 Manager Heavy Equipment: Anthony Aguilar MD Hematocrit (Bld) [Volume fraction] 41.6 % Normal 36.3-47.1 [facility] Comment on above: Performed By: #### B MP, CBC, PT #### [facility] [employer] [address] [place] [address] 04896 Manager Heavy Equipment: Anthony Aguilar MD Hemoglobin (Bld) [Mass/Vol] 13.3 g/dL Normal 11.9-15.1 [facility] Comment on above: Performed By: #### B MP, CBC, PT #### [facility] [employer] [address] [place] [address] 49353 Manager Heavy Equipment: Anthony Aguilar MD MCH (RBC) [Entitic mass] 28.3 pg Normal 25.2-33.5 [facility] Comment on above: Performed By: #### B MP, CBC, PT #### [facility] [employer] [address] [place] [address] 77790 Manager Heavy Equipment: Anthony Aguilar MD MCHC (RBC) [Mass/Vol] 32.0 g/dL Normal 28.4-34.8 [facility] Comment on above: Performed By: #### B MP, CBC, PT #### [address] [address] Manager Heavy Equipment: Anthony Aguilar MD MCV (RBC) [Entitic vol] 88.5 fL Normal 82.6-102.9 [facility] Comment on above: Performed By: #### B MP, CBC, PT #### [address] [address] Manager Heavy Equipment: Anthony Aguilar MD NRBC Automated 0.0 per 100 WBC Normal 0.0 [facility] Comment on above: Performed By: #### B MP, CBC, PT #### [address] [address] Manager Heavy Equipment: Anthony Aguilar MD Platelet mean volume (Bld) [Entitic vol] 9.7 fL Normal 8.1-13.5 [facility] Comment on above: Performed By: #### B MP, CBC, PT #### [address] [address] Manager Heavy Equipment: Anthony Aguilar MD Platelets (Bld) [#/Vol] 276 10*3/uL Normal 138-453 [facility] Comment on above: Performed By: #### B MP, CBC, PT #### [address] [address] Manager Heavy Equipment: Anthony Aguilar MD RBC (Bld) [#/Vol] 4.70 10*6/uL Normal 3.95-5.11 [facility] Comment on above: Performed By: #### B MP, CBC, PT #### [address] [address] Manager Heavy Equipment: Anthony Aguilar MD WBC (Bld) [#/Vol] 7.4 10*3/uL Normal 3.5-11.3 [facility] Comment on above: Performed By: #### B MP, CBC, PT #### [facility] [place], [place] [phone] Manager Heavy Equipment: Anthony Aguilar MD PTon 09-11-2022 INR Coag (PPP) [Relative time] 1.0 {INR} Normal [facility] Comment on above: Result Comment: Therapeutic Range: Moderate Anticoagulant Intensity: INR = 2.0-3.0 High Anticoagulant Intensity: INR = 2.5-3.5 Performed By: #### B MP, CBC, PT #### [facility] [employer] [facility] [place], [place] [phone] Manager Heavy Equipment: Anthony Aguilar MD PT Coag (PPP) [Time] 12.9 s Normal 11.7-14.9 [facility] Comment on above: Performed By: #### B MP, CBC, PT #### [facility] [address] [place] [address] [phone] Manager Heavy Equipment: Anthony Aguilar MD Surgical Pathologyon 023 Surgical Pathology (NOTE) Path Number: [id number] -- Diagnosis -- GALLBLADDER, CHOLECYSTECTOMY: -CHRONIC CHOLECYSTITIS WITH CHOLESTEROLOSIS AND CHOLELITHIASIS. Jameel Lawler M.D. Electronically Signed Out 09/12/2022 Clinical Information Pre-op Diagnosis: GALLSTONES Operative Findings: GALLBLADDER Operation Performed: LAPAROSCOPIC CHOLECYSTECTOMY tm Source of Specimen A: GALLBLADDER Gross Description FINA WALKER, GALLBLADDER Received in formalin is a 7.5 [...] lesions or periductal lymph nodes are identified. Steel [employer] Header Operator sections 1c. tm Microscopic Description Microscopic examination performed. Processing Lab: [address] [address] Interpretation Performed at [address] [phone] SURGICAL PATHOLOGY CONSULTATION Patient Name: FINA WALKER [facility] Rec: [id number] [facility] ANATOMIC PATHOLOGY [address] [place], [place] [address] Normal [facility] Urine Cultureon 02-08-2022 Bacteria identified Cx Nom (U) Reason for Exam Dysuria Urine ORGANISM: Escherichia coli (O:ESCCOL) [place] Count >100,000 Aerobic LISA Charge (NMIC56) ---- [...] RESISTANT TO ALL B-LACTAM DRUGS. PERFORMED BY: [place] [id number] PATHOLOGIST CADD MANAGER SAMIRA WEN M.D. Normal [facility] Comment on above: Performed By: #### C UU #### [place] [id number] [facility] VC CONSULT FOLLOWUPon 2021 VC CONSULT FOLLOWUP Patient: FINA WALKER Exam Date: 01/08/2022 : 1995 Gender:F Ordering : DR JAMEEL ABEBE M.D. Admission #: [id number] Family : Order #: [id number] CLICK HERE TO VIEW EXAM RADIOLOGY REPORT [...] Hinton M.D. on 01/08/2022 at 10:10 Normal [facility] VC EXT VENOUS RT LIMITEDon 1 03-10-2021 VC EXT VENOUS RT LIMITED Patient: FINA WALKER Exam Date: 01/08/2022 : 1995 Gender:F Ordering : DR JAMEEL ABEBE M.D. Admission #: [id number] Family : Order #: [id number] CLICK HERE TO VIEW EXAM RADIOLOGY REPORT [...] M.D. on 01/08/2022 at 10:05 Normal [facility] VC ENDOVENOUS ABL 1ST V RTon 12-31-2021 VC ENDOVENOUS ABL 1ST V RT Patient: FINA WALKER Exam Date: 12/31/2021 : 1995 Gender:F Ordering : DR JAMEEL ABEBE M.D. Admission #: [id number] Family : Order #: [id number] CLICK HERE TO VIEW EXAM RADIOLOGY REPORT [...] Abebe MD on 12/31/2021 at 11:06 Normal [facility] ED Clinical Summaryon 2021 ED Clinical Summary [facility] Urgent Care [address] [place] [address] Clinical Summary PERSON INFORMATION Name: VERNON WALKER Age: 26 Years Sex: FEMALE : 1995 MRN: Acct#: Visit Reason: OTTERBEIN PHYSICAL Arrival: 11/28/2021 10:39:56 Discharge: 11/28/2021 10:59:00 LOS: 000 00:20 Check In: 11/28/2021 10:39:56 Checkout: 11/28/2021 10:59:00 Address: [address] [place] [address] PCP: Provider, None PROVIDER INFORMATION VITALS INFORMATION Vital Sign Triage Latest Temperature Tympanic Temperature Temporal Artery Pulse Rate O2 Sat Respiratory Rate Blood Pressure / / MEDICAL INFORMATION Medications Given: Allergy Information: No known allergies PHYSICIAN DOCUMENTATION DISCHARGE INFORMATION: Discharge Disposition: Eloped Discharge Location: PATIENT EDUCATION INFORMATION Instructions: Follow-Up: DIAGNOSIS: Patient Understands: Comment: Normal [facility] ED Patient Summaryon 022 ED Patient Summary [facility] [address] [place] [address] PATIENT DISCHARGE INSTRUCTIONS Patient Information Name: VERNON WALKER Age: 26 Years Date of : 1995 Reason For Visit: OTTERBEIN PHYSICAL Arrival Time: 11/28/2021 10:39:56 Primary Care Physician: Provider, None Attending Physician: Nuno Bradshaw Comment: Patient Education Medication Information: The exam and treatment you received today in the [facility] Emergency Department were for an urgent problem and are not intended as complete care. It is important for you to follow up with a doctor, nurse practitioner, or physician?s information assistant for ongoing care. If your symptoms [...] so we can reach you if necessary. [facility] Emergency Department has provided you with a complete list of medications post discharge. Please inform your cyber forensic specialist/provider of your visit and for further [...] for Disease Control and Prevention October 2013 [facility] VC CONSULT FOLLOWUPon 2021 VC CONSULT FOLLOWUP Patient: FINA WALKER Exam Date: 11/28/2021 : 1995 Gender:F Ordering : DR JAMEEL ABEBE M.D. Admission #: [id number] Family : Order #: [id number] CLICK HERE TO VIEW EXAM RADIOLOGY REPORT [...] Courtney Hinton M.D. on 11/28/2021 at 10:04 [facility] VC EXT VENOUS LT LIMITEDon 1 VC EXT VENOUS LT LIMITED Patient: FINA WALKER Exam Date: 11/28/2021 : 1995 Gender:F Ordering : DR JAMEEL ABEBE M.D. Admission #: [id number] Family : Order #: [id number] CLICK HERE TO VIEW EXAM RADIOLOGY REPORT [...] Hinton M.D. on 11/28/2021 at 09:45 Normal [facility] VC ENDOVENOUS ABL 1ST V LTon 11-22-2021 VC ENDOVENOUS ABL 1ST V LT Patient: FINA WALKER Exam Date: 11/22/2021 : 1995 Gender:F Ordering : DR JAMEEL ABEBE M.D. Admission #: [id number] Family : Order #: [id number] CLICK HERE TO VIEW EXAM RADIOLOGY REPORT PROCEDURE: VEIN CENTER ENDOVENOUS ABLATION FIRST VEIN LEFT GREAT SAPHENOUS VEIN COMPARISON: VC VENOUS REFLUX JOVANA LMT, 10/17/2021. INDICATIONS: Pain co-occurrent and due to varicose veins of bilateral legs I83.813 OPERATIVE REPORT: The risks and benefits of the procedure had been previously discussed, and were rediscussed at length. Informed written consent was obtained by mi and Christopher Zavala assisted. Time out procedure [...] Jameel Abebe MD on 11/22/2021 at 09:04 [facility] VC COMP CONSULTATIONon 10-17 VC COMP CONSULTATION Patient: FINA WALKER Exam Date: 10/17/2021 : 1995 Gender:F Ordering : DR JAMEEL ABEBE M.D. Admission #: [id number] Family : Order #: [id number] CLICK HERE TO VIEW EXAM RADIOLOGY REPORT [...] arterial disease 5. CEAP: C2, EC, AP, [place] PLAN: 1. Continued use of compression stockings [...] M.D. on 10/17/2021 at 12:46 Normal [facility] Basic Metabolic Panelon 04-0 Anion gap [Moles/Vol] 8 mmol/L Low 9 - 17 mmol/L [facility] Calcium [Mass/Vol] 8.6 mg/dL 8.6 - 10. 4 mg/dL [facility] Chloride [Moles/Vol] 106 mmol/L 98 - 107 mmol/L [facility] CO2 [Moles/Vol] 23 mmol/L 20 - 31 mmol/L [facility] Creatinine [Mass/Vol] 0.67 mg/dL 0.50 - 0.90 mg/dL [facility] GFR >60 >60 mL/min [facility] GFR Non- >60 >60 mL/min [facility] GFR/1.73 sq M.predicted MDRD (S/P/Bld) [Vol rate/Area] [facility] Comment on above: Average GFR for 20-2 9 years old: 116 mL/min/1.73sq m Chronic Kidney Disease: <60 mL/min/1.73sq m Kidney failure: <15 mL/min/1.73sq m eGFR calculated using average adult body mass. Additional eGFR calculator available at: http://www.Solazyme.LibertadCard/multiple_crcl_2012.htm Glucose [Mass/Vol] 83 mg/dL 70 - 99 mg/dL [facility] [employer] Interpretation and review of laboratory results Abnormal [facility] Potassium [Moles/Vol] 3.9 mmol/L 3.7 - 5.3 mmol/L [facility] Sodium [Moles/Vol] 137 mmol/L 135 - 144 mmol/L [facility] Urea nitrogen (BldV) [Mass/Vol] 7 mg/dL 6 - 20 mg/dL [employer] [facility] CBCon 05-17-2021 Hematocrit (Bld) [Volume fraction] 34.4 % Low 36.3 - 47.1 % [facility] Hemoglobin.gastroin testinal spec 1 Ql (Stl) 11.0 g/dL Low 11.9 - 15.1 g/dL [facility] Interpretation and review of laboratory results Abnormal [facility] MCH (RBC) [Entitic mass] 27.2 pg 25.2 - 33.5 pg [facility] MCHC (RBC) [Mass/Vol] 32.0 g/dL 28.4 - 34.8 g/dL [facility] MCV (RBC) [Entitic vol] 85.1 fL 82.6 - 102.9 fL [facility] NRBC Automated 0.0 0.0 per 100 WBC [facility] Platelet distribution width (Bld) [Ratio] 14.1 % 11.8 - 14.4 % [facility] Platelet mean volume (Bld) [Entitic vol] 10.1 fL 8.1 - 13.5 fL [facility] Platelets (Bld) [#/Vol] 302 10*3/uL [facility] RBC (Bld) [#/Vol] 4.04 10*6/uL 3.95 - 5.1 1 m/uL [facility] WBC (Bld) [#/Vol] 13.7 10*3/uL High [facility] SURGICAL PATHOLOGY REPORTon 05-17-2021 Surgical Pathology Report [...] x 0.5 cm piece of adipose tissue. [employer] Operator sections 1cs. tm Microscopic Description 1 H&E reviewed. Microscopic examination performed. SURGICAL PATHOLOGY CONSULTATION Patient Name: FINA WALKER [facility] Rec: [id number] Path Number: [id number] [facility] ANATOMIC PATHOLOGY [address] [place], [place] [address] [facility] [employer] Basic Metabolic Panelon Anion gap [Moles/Vol] 10 mmol/L 9 - 17 mmol/L [facility] [employer] Calcium [Mass/Vol] 8.7 mg/dL 8.6 - 10. 4 mg/dL [facility] [employer] Chloride [Moles/Vol] 105 mmol/L 98 - 107 mmol/L [facility] [employer] CO2 [Moles/Vol] 23 mmol/L 20 - 31 mmol/L [employer] Creatinine [Mass/Vol] 0.75 mg/dL 0.50 - 0.90 mg/dL [employer] GFR >60 >60 mL/min [facility] [employer] GFR Non- >60 >60 mL/min [facility] [employer] GFR/1.73 sq M.predicted MDRD (S/P/Bld) [Vol rate/Area] [facility] Comment on above: Average GFR for 20-2 9 years old: 116 mL/min/1.73sq m Chronic Kidney Disease: <60 mL/min/1.73sq m Kidney failure: <15 mL/min/1.73sq m eGFR calculated using average adult body mass. Additional eGFR calculator available at: http://www.Blazent/multiple_crcl_2011.htm Glucose [Mass/Vol] 132 mg/dL High 70 - 99 mg/dL [facility] [employer] Interpretation and review of laboratory results Abnormal [employer] Potassium [Moles/Vol] 3.5 mmol/L Low 3.7 - 5.3 mmol/L [facility] [employer] Sodium [Moles/Vol] 138 mmol/L 135 - 144 mmol/L [facility] [employer] Urea nitrogen (BldV) [Mass/Vol] 10 mg/dL 6 - 20 mg/dL [facility] CBC without Diffon 2 Hematocrit (Bld) [Volume fraction] 38.8 % 36.3 - 47.1 % [facility] Hemoglobin.gastroin testinal spec 1 Ql (Stl) 12.6 g/dL 11.9 - 15.1 g/dL [facility] Interpretation and review of laboratory results Abnormal [employer] MCH (RBC) [Entitic mass] 27.2 pg 25.2 - 33.5 pg [facility] MCHC (RBC) [Mass/Vol] 32.5 g/dL 28.4 - 34.8 g/dL [facility] MCV (RBC) [Entitic vol] 83.8 fL 82.6 - 102.9 fL [facility] NRBC Automated 0.0 0.0 per 100 WBC [facility] Platelet distribution width (Bld) [Ratio] 13.9 % 11.8 - 14.4 % [facility] Platelet mean volume (Bld) [Entitic vol] 9.8 fL 8.1 - 13.5 fL [facility] Platelets (Bld) [#/Vol] 340 10*3/uL [facility] RBC (Bld) [#/Vol] 4.63 10*6/uL 3.95 - 5.1 1 m/uL [facility] [facility] WBC (Bld) [#/Vol] 15.0 10*3/uL High [facility] POC Glucose Fingerstickon Glucose [Mass/Vol] 77 mg/dL 65 - 105 mg/dL [facility] [place] POCT urine pregnancyon 05-16 Beta HCG ( test) Ql (U) Negative NEGATIVE [facility] Comment on above: Specimens with hCG l evels near the threshold of the test (25 mIU/mL) may give a negative or indeterminate result. In such cases, another test should be performed with a new specimen in 48-72 hours. If early is suspected clinically in this setting, correlation with quantitative serum b-hCG level is suggested. [facility] [id number] 05-15-2021 SARS-CoV-2 (COVID-19) RNA BECCA+probe Ql (Unsp spec) Normal [facility] Comment on above: Performed By: #### C OVID #### [facility] [employer] [address] [place] [address] Manager Heavy Equipment: Anthony Aguilar MD [facility] [address] [place] [address] Manager Heavy Equipment: Jameel Lawler MD SARS-CoV-2 (COVID-19) RNA BECCA+probe Ql (Unsp spec) Not detected Normal [facility] Comment on above: Result Comment: The specimen is NEGATIVE for SARS-CoV-2, the novel coronavirus associated with COVID-19. A negative result does not rule out COVID-19. Lucrecia SARS-CoV-2 for use on the Lucrecia [employer]8800 [employer] is a real-time RT-PCR test intended [...] this assay. Fact sheet for Healthcare Providers: https://www.fda.gov/media/331292/download Fact sheet for Patients: https://www.fda.gov/media/594717/download METHODOLOGY: RT-PCR Performed By: #### C OVID #### [employer] [facility] [address], [place] [id number] Manager Heavy Equipment: Anthony Aguilar MD [facility] [address] [place] [address] [place] [address] Manager Heavy Equipment: Jameel Lawler MD [id number] 05-14-2021 SARS-CoV-2 (COVID-19) RNA BECCA+probe Ql (Unsp spec) .NASOPHARYNGEAL SWAB Normal [facility] Comment on above: Performed By: #### C OVID #### [facility] [address], [place] [id number] Manager Heavy Equipment: Anthony Aguilar MD [facility] [address] [place] [address] [place] [address] Manager Heavy Equipment: Jameel Lawler MD Nicotine, Bloodon 05-05-2021 9-UQ-Olsbytgv <2 ng/mL [facility] Cotinine <2 ng/mL [facility] Nicotine <2 ng/mL [facility] Comment on above: (NOTE) Consistent [...] developed and its performance characteristics determined by [employer]. It has not been cleared or approved by the US Food and Drug Administration. This test was performed in a CLIA certified laboratory and is intended for clinical purposes. Performed By: [employer] [address] [place] [id number] Director Part: Yara Rodriguez MD [facility] EKG 12 LeadOrdered By: Diaz Conway on 05-03-2021 Atrial Rate 72 BPM [facility] Work Phone: P [place] 45 degrees [employer] Phone: P-R Interval 142 ms [employer] Phone: Q-T Interval 376 ms [facility] Work Phone: QRS Duration 100 ms [employer] Phone: QTc Calculation (Bazett) 411 ms [employer] Phone: R [place] 22 degrees [employer] Phone: T [place] 32 degrees [employer] Phone: Ventricular Rate 72 BPM [employer] Work Phone: [employer] Phone: EKG 12 Leadon 05-03-2021 Normal sinus rhythm Normal ECG No previous ECGs available [facility] ST Diaz Romero MD - 05/03/2021 Normal sinus rhythm Normal ECG No previous ECGs available [facility] Work Phone: APTTon 05-02-2021 aPTT Coag (Bld) [Time] 25.0 s [facility] Comment on above: IV Heparin Therapy Range: 48.6-77.8 Basic Metabolic Panelon 04-11 Anion gap [Moles/Vol] 15 mmol/L 9 - 17 mmol/L [facility] Calcium [Mass/Vol] 9.8 mg/dL 8.6 - 10. 4 mg/dL [facility] Chloride [Moles/Vol] 102 mmol/L 98 - 107 mmol/L [facility] CO2 [Moles/Vol] 21 mmol/L 20 - 31 mmol/L [facility] Creatinine [Mass/Vol] 0.55 mg/dL 0.50 - 0.90 mg/dL [facility] GFR >60 >60 mL/min [facility] GFR Non- >60 >60 mL/min [facility] GFR/1.73 sq M.predicted MDRD (S/P/Bld) [Vol rate/Area] [facility] Comment on above: Average GFR for 20-2 9 years old: 116 mL/min/1.73sq m Chronic Kidney Disease: <60 mL/min/1.73sq m Kidney failure: <15 mL/min/1.73sq m eGFR calculated using average adult body mass. Additional eGFR calculator available at: http://www.Solazyme.LibertadCard/multiple_crcl_2011.htm Glucose [Mass/Vol] 85 mg/dL 70 - 99 mg/dL [facility] [employer] Potassium [Moles/Vol] 4.5 mmol/L 3.7 - 5.3 mmol/L [facility] Sodium [Moles/Vol] 138 mmol/L 135 - 144 mmol/L [facility] Urea nitrogen (BldV) [Mass/Vol] 11 mg/dL 6 - 20 mg/dL [facility] CBCon 05-02-2021 Hematocrit (Bld) [Volume fraction] 41.0 % 36.3 - 47.1 % [facility] Hemoglobin.gastroin testinal spec 1 Ql (Stl) 12.9 g/dL 11.9 - 15.1 g/dL [facility] MCH (RBC) [Entitic mass] 26.9 pg 25.2 - 33.5 pg [facility] MCHC (RBC) [Mass/Vol] 31.5 g/dL 28.4 - 34.8 g/dL [facility] MCV (RBC) [Entitic vol] 85.6 fL 82.6 - 102.9 fL [facility] [employer] NRBC Automated 0.0 0.0 per 100 WBC [facility] [employer] Platelet distribution width (Bld) [Ratio] 13.7 % 11.8 - 14.4 % [facility] [employer] Platelet mean volume (Bld) [Entitic vol] 9.8 fL 8.1 - 13.5 fL [facility] [employer] Platelets (Bld) [#/Vol] 380 10*3/uL [facility] [employer] RBC (Bld) [#/Vol] 4.79 10*6/uL 3.95 - 5.1 1 m/uL [facility] [employer] WBC (Bld) [#/Vol] 11.2 10*3/uL [facility] No Panel Informationon 05-02 [employer] Protime-INRon 05-02-2021 INR Coag (Bld) [Relative time] 1.0 {INR} [facility] [employer] Comment on above: Therapeutic Range: Moderate Anticoagulant Intensity: INR = 2.0-3.0 High Anticoagulant Intensity: INR = 2.5-3.5 PT Coag (PPP) [Time] 10.6 s [facility] XR CHEST (2 VW)on 05-02-2021 No acute process. [facility] RIS CONSOLIDATED EXAMINATION: TWO XRAY VIEWS OF THE CHEST 05/02/2021 11:20 am COMPARISON: None. HISTORY: ORDERING SYSTEM PROVIDED HISTORY: preop, obesity TECHNOLOGIST PROVIDED HISTORY: preop, obesity FINDINGS: Heart is normal in size. Lungs are clear. No free air. [facility] RIS CONSOLIDATED Jose Juan Florez Jr. , DO - 05/02/2021 EXAMINATION: TWO XRAY VIEWS OF THE CHEST 05/02/2021 11:20 am COMPARISON: None. HISTORY: ORDERING SYSTEM PROVIDED HISTORY: preop, obesity TECHNOLOGIST PROVIDED HISTORY: preop, obesity FINDINGS: Heart is normal in size. Lungs are clear. No free air. IMPRESSION: No acute process. [facility] Phone: Radiology Study observation (narrative) [facility] Phone: XR CHEST (2 VW)Ordered By: Santos Florez on 05-02-2021 [facility]: [id number] 12-05-2020 SARS-CoV-2 (COVID-19) RNA BECCA+probe Ql (Unsp spec) Normal [facility] Comment on above: Performed By: #### C OVID #### [employer] [address], [place] [id number] Manager Heavy Equipment: Anthony Aguilar MD [facility] [address] [place] [address] Manager Heavy Equipment: Jameel Lawler MD SARS-CoV-2 (COVID-19) RNA BECCA+probe Ql (Unsp spec) Not detected Normal NOTDET [facility] Comment on above: Result Comment: The specimen is NEGATIVE for SARS-CoV-2, the novel coronavirus associated with COVID-19. A negative result does not rule out COVID-19. Lucrecia SARS-CoV-2 for use on the [employer]cre[employer]8800 [employer] is a real-time RT-PCR test intended [...] this assay. Fact sheet for Healthcare Providers: https://www.fda.gov/media/104956/download Fact sheet for Patients: https://www.fda.gov/media/555186/download METHODOLOGY: RT-PCR Performed By: #### C OVID #### [employer] [address], [place] [id number] Manager Heavy Equipment: Anthony Aguilar MD [facility] [address] [place] [address] Manager Heavy Equipment: Jameel Lawler MD [id number] 12-04-2020 SARS-CoV-2 (COVID-19) RNA BECCA+probe Ql (Unsp spec) .NASOPHARYNGEAL SWAB Normal [facility] Comment on above: Performed By: #### C OVID #### [employer] [address], [place] [id number] Manager Heavy Equipment: Anthony Aguilar MD [facility] [address] [place] [address] Manager Heavy Equipment: Jameel Lawler MD Vital Signs Date Time Vital Sign Value Performing Clinician Facility 03-19-2023 11:06-0500 Body mass index (BMI) [Ratio] 36.34 kg/m2 Eloise BURROUGHS Work Phone: [facility] 03-19-2023 11:06-0500 Body weight 105.23 kg Eloise BURROUGHS Work Phone: [facility] 03-19-2023 11:06-0500 Diastolic blood pressure 78 mm[Hg] Eloise BURROUGHS Work Phone: [facility] 03-19-2023 11:06-0500 Systolic blood pressure 124 mm[Hg] Eloise BURROUGHS Work Phone: [facility] 03-05-2023 10:48-0500 Body mass index (BMI) [Ratio] 35.08 kg/m2 Karoline Hopson MD Work Phone: [facility] 03-05-2023 10:48-0500 Body weight 101.61 kg Karoline Hopson MD Work Phone: [facility] 03-05-2023 10:48-0500 Diastolic blood pressure 75 mm[Hg] Karoline Hopson MD Work Phone: [facility] 03-05-2023 10:48-0500 Heart rate 89 /min Karoline Hopson MD Work Phone: [facility] [employer] 03-05-2023 10:48-0500 Systolic blood pressure 126 mm[Hg] Karoline Hopson MD Work Phone: [facility] [employer] 02-07-2023 13:34-0500 Body height 170.2 cm Tatiana Yap MD [facility] Phone[facility] 02-07-2023 13:34-0500 Body mass index (BMI) [Ratio] 34.14 kg/m2 Tatiana Yap MD Work Phone[facility] 02-07-2023 13:34-0500 Body weight 98.88 kg Tatiana Yap MD Work Phone[facility] 02-07-2023 13:34-0500 Diastolic blood pressure 83 mm[Hg] Tatiana Yap MD Work Phone[facility] 02-07-2023 13:34-0500 Heart rate 76 /min [facility]ap [facility] 02-07-2023 13:34-0500 Systolic blood pressure 126 mm[Hg] Tatiana Yap MD Work Phone[facility] 10-12-2022 10:10-0400 Body height 170.18 cm Lilia Daugherty Other [employer] Other 10-12-2022 10:10-0400 Body mass index (BMI) [Ratio] 32.86 kg/m2 Lilia Daugherty Other [employer] Other 10-12-2022 10:10-0400 Body temperature 99 [degF] Lilia Daugherty Other [employer] Other 10-12-2022 10:10-0400 Body weight 95.17 kg Lilia Daugherty Other [employer] Other 10-12-2022 10:10-0400 Diastolic blood pressure 74 mm[Hg] Lilia Daugherty Other [employer] Other 10-12-2022 10:10-0400 SaO2% (BldA) [Mass fraction] 98 % Lilia Daugherty Other [employer] Other 10-12-2022 10:10-0400 Systolic blood pressure 118 mm[Hg] Lilia Daugherty Other [employer] Other 05-17-2021 15:52-0400 Body temperature 98.49 [degF] Patricia Mars Lexara Work Phone: [facility] 05-17-2021 15:52-0400 Diastolic blood pressure 97 mm[Hg] Patricia Mars Lexara Work Phone: [facility] 05-17-2021 15:52-0400 Heart rate 70 /min Patricia HuertaPlayfish Work Phone: [facility] 05-17-2021 15:52-0400 Respiratory rate 18 /min Patricia Mars Lexara Work Phone: [facility] 05-17-2021 15:52-0400 SaO2% (BldA) [Mass fraction] 99 % Patricia Mars Lexara Work Phone: [facility] 05-17-2021 15:52-0400 Systolic blood pressure 138 mm[Hg] Patricia Mars Lexara Work Phone: [facility] 05-16-2021 06:06-0400 Body mass index (BMI) [Ratio] 43.16 kg/m2 Patricia Mars Lexara Work Phone: [facility] 05-16-2021 06:06-0400 Body weight 125 kg Patricia Mars Lexara Work Phone: [facility] 05-16-2021 05:57-0400 Body height 170.2 cm Patricia Mars DO Work Phone: [facility] 05-02-2021 10:35-0400 Body height 170.2 cm Stvz 1 [facility] 05-02-2021 10:35-0400 Body mass index (BMI) [Ratio] 44.95 kg/m2 Stvz 1 [facility] 05-02-2021 10:35-0400 Body temperature 97.2 [degF] Stvz 1 [facility] 05-02-2021 10:35-0400 Body weight 130.18 kg Stvz 1 [facility] 05-02-2021 10:35-0400 Diastolic blood pressure 85 mm[Hg] Stvz 1 [facility] 05-02-2021 10:35-0400 Heart rate 66 /min Stvz 1 [facility] 05-02-2021 10:35-0400 Respiratory rate 18 /min Stvz 1 [facility] 05-02-2021 10:35-0400 SaO2% (BldA) [Mass fraction] 99 % Stvz 1 [facility] 05-02-2021 10:35-0400 Systolic blood pressure 122 mm[Hg] Stvz 1 [facility] 12-04-2020 17:00-0400 Body height 170.18 cm Ale Ginty Other [employer] Other 12-04-2020 17:00-0400 Body mass index (BMI) [Ratio] 43.85 kg/m2 Ale Ginty Other [employer] Other 12-04-2020 17:00-0400 Body temperature 97.4 [degF] Ale Ginty Other [employer] Other 12-04-2020 17:00-0400 Body weight 127.01 kg Ale Ginty Other [employer] Other 12-04-2020 17:00-0400 SaO2% (BldA) [Mass fraction] 99 % Ale Ginty Other [facility] [employer] Other Encounters Encounter Date Encounter Type Care Provider Facility Start: 05-28-2023 End: 05-28-2023 ambulatory NIGEL REGALADOO Not Available Start: 05-15-2023 End: 05-15-2023 ambulatory ELOISE DOMINGUEZ Not Available Start: 05-13-2023 End: 05-14-2023 ambulatory KIMMY Snow MACHUCA Not Available Start: 05-01-2023 End: 05-01-2023 ambulatory NIGEL ZACARIAS Not Available Start: 04-10-2023 End: 04-10-2023 ambulatory NIGEL ZACARIAS Not Available Start: 04-09-2023 End: 04-10-2023 ambulatory NIGEL REGALADOO [facility] Start: 03-24-2023 Clinisync Result Encounter Nigel Zacarias [...] 03-06-2023 Orders Only Laila Castillo RN [facility] Comment on above: Hypertension affecti ng in second trimester (Primary Dx); Dichorionic diamniotic twin in second trimester Start: 03-05-2023 End: 03-05-2023 Office outpatient visit 15 minutes Karoline Hopson MD Work Phone: [facility] Comment on above: History of sleeve ga strectomy (Primary Dx); History of induced hypertension Start: 02-27-2023 Orders Only Sivan Martinez RN [facility] at [facility] Comment on above: Hypertension affecti ng in second trimester; 16 weeks gestation of ; Dichorionic diamniotic twin in second trimester Start: 02-26-2023 End: 02-26-2023 ambulatory NIGEL ZACARIAS Not Available Start: 02-24-2023 Telephone encounter Sangita Thomas RN [facility] [place] Start: 02-07-2023 End: 02-07-2023 ambulatory TATIANA JANEL [facility] Start: 02-07-2023 End: 02-07-2023 Office consultation new/estab patient 60 min Tatiana Yap MD Work Phone: [facility] [place] Comment on above: Hypertension affecti ng in second trimester (Primary Dx); 16 weeks gestation of ; Dichorionic diamniotic twin in second trimester; H/O gastric sleeve Start: 02-05-2023 End: 02-05-2023 ambulatory NIGEL ZACARIAS Not Available Start: 02-05-2023 Chart abstracting Tatiana Yap MD Work Phone: [facility] [place] Start: 02-04-2023 End: 02-04-2023 ambulatory MARGOT G YAW Not Available Start: 01-15-2023 End: 01-15-2023 ambulatory NIGEL ZACARIAS Not Available Start: 01-07-2023 End: 01-07-2023 ambulatory MARGOT G YAW Not Available Start: 12-20-2022 End: 12-21-2022 ambulatory NIGEL ZACARIAS Not Available Start: 10-12-2022 End: 10-12-2022 ambulatory Lilia Daugherty Other [employer] Other Start: 10-12-2022 Office outpatient vi sit 15 minutes Lilia Daugherty [facility] [place] Start: 09-11-2022 End: 09-11-2022 ambulatory PATRICIA Rucker [facility] Start: 02-10-2022 End: 02-10-2022 ambulatory Ale Shields Other [employer] Other Start: 02-10-2022 Telephone encounter Ale Shields [facility] [address] Start: 02-08-2022 End: 02-08-2022 ambulatory Ale Kishor Shields Facility:[facility] Start: 02-08-2022 End: 02-08-2022 ambulatory FREELANCE PHOTOGRAPHER Ale Shields Work Phone: [facility] Work Phone: Start: 02-08-2022 End: 02-08-2022 Departed Referred FREELANCE PHOTOGRAPHER Ale Shields Work Phone: [facility] [place] Work Phone: Start: 01-08-2022 End: 01-09-[address] JAMEEL ABEBE Facility:[facility] Start: 12-31-2021 End: 01-01-[address] JAMEEL ABEBE Facility:[facility] Start: 11-28-2021 End: 11-28-2021 ambulatory None Provider Facility:[facility] Start: 11-28-2021 End: 11-29-[address] JAMEEL ABEBE Facility:[facility] Start: 11-22-2021 End: 11-23-2021 ambulatory NONE LISTED REQUEST Facility:[facility] Start: 10-17-2021 End: 10-18-2021 ambulatory NONE LISTED REQUEST Facility: Start: 08-03-2021 End: 08-04-[address] JAMEEL ABEBE Facility:[facility] Start: 05-16-2021 End: 05-17-2021 Evaluation and management of inpatient Patricia Mars DO Work Phone: [facility] Comment on above: Post-op pain (Primar y Dx) Start: 05-14-2021 End: 05-19-2021 ambulatory [facility]N OKEEFE [facility] Start: 05-02-2021 End: 05-06-2021 Subsequent hospital visit by physician Dwight Pat Rm 1 [facility] Pre-Admit Testing Start: 12-04-2020 End: 12-09-2020 ambulatory CYN OKEEFE [facility] Start: 12-04-2020 Office outpatient vi sit 15 minutes Ale Harris [facility] [place] Start: 10-20-2020 End: 10-20-2020 Subsequent hospital visit by physician Patricia Mars DO Work Phone: [facility] [place] Start: 09-06-2020 End: 09-07-2020 [facility]ulatory [facility] Start: 09-06-2020 End: 09-06-2020 Subsequent hospital visit by physician [facility] Rm 1 [facility] Comment on above: LYNN (obstructive sle ep apnea) Start: 05-28-2017 End: 05-29-2017 Ambulatory Neo Anderson Facility:[id number] Procedures Date Procedure Procedure Detail Performing Clinician Start: 03-24-2023 [facility] UA (CLEAN/CATCH) ENVIRONMENTAL ENGINEER SCIENTIST/MICRO IF IND. Nigel Zacarias DO Work Phone: [...] Patricia Mars DO Work Phone: Start: 05-16-2021 End: 05-16-2021 Laps gstrc rstrictiv px longitudinal gastrectomy Patricia Mars DO Work Phone: Start: 05-16-2021 Glucose blood reagen t strip Patricia Mars DO Work Phone: Start: 05-16-2021 Urine test visual color cmprsn meths Patricia Mars DO Work Phone: Start: 05-02-2021 Assay of nicotine Sim [employer] Work Phone: Start: 05-02-2021 Basic metabolic pane l calcium total Patricia Mars DO Work Phone: Start: 05-02-2021 Radiologic exam ches t 2 views Patricia Mars DO Work Phone: Start: 05-02-2021 Ecg routine ecg w/le ast 12 lds i&r only Patricia Mars [employer] Work Phone: Start: 06-14-2020 Microscopic observat ion [Identifier] in Cervix by Cyto stain Tatiana Yap MD Work Phone: Plan of Treatment Date Care Activity Detail Author Start: 03-05-2024 Adult BMI Screening Adult BMI Screen ing [employer] Start: 03-05-2024 Tobacco Screening Tobacco Screening [employer] Start: 03-05-2024 End: 03-05-2024 US MFM with or without consult US MFM with or without consult Imaging Routine Hypertension affecting in second trimester Dichorionic diamniotic twin in second trimester Expected: 03/05/2024 (Approximate), Expires: 03/05/2024 [employer] Work Phone: Comment on above: Expected: 03/05/2024 (Approximate), Expires: 03/05/2024 Start: 02-08-2024 Adult BMI Screening Adult BMI Screen ing [employer] Start: 02-08-2024 Tobacco Screening Tobacco Screening [facility] Start: 01-04-2024 Adult BMI Screening Adult BMI Screen ing [facility] Start: 01-04-2024 Tobacco Screening Tobacco Screening [facility] Start: 08-11-2023 DTaP,Tdap and Td Vaccines (7 - Td or Tdap) DTaP,Tdap and Td Vaccines (7 - Td or Tdap) [facility] Start: 08-11-2023 DTaP/Tdap/Td vaccine (7 - Td or Tdap) DTaP/Tdap/Td vaccine (7 - Td or Tdap) [facility] Start: 08-10-2023 Influenza vaccination Influenza Vacc ine (#1) [facility] Comment on above: Postponed from 10/11 (Patient Refused) Start: 06-15-2023 Screening for malign ant neoplasm of cervix Pap Smear [facility] Start: 04-10-2023 End: 04-10-2023 Patient encounter procedure [facility] [place] Start: 03-19-2023 End: 03-19-2024 CBC panel - Blood by Automated count CBC Lab Routine Diabetes mellitus screening Expected: 03/19/2023 (Approximate), Expires: 03/19/2024 [facility] Work Phone: Comment on above: Expected: 03/19/2023 (Approximate), Expires: 03/19/2024 Start: 03-19-2023 End: 03-19-2024 Measurement of glucose 1 hour after glucose challenge for glucose tolerance test Glucose tolerance, 1 hour Lab Routine Diabetes mellitus screening Expected: 03/19/2023 (Approximate), Expires: 03/19/2024 [facility] Comment on above: Expected: 03/19/2023 (Approximate), Expires: 03/19/2024 Start: 03-05-2023 End: 03-05-2023 Patient encounter procedure 03/05/2023 11:30 AM EST Office Visit [facility] at [facility] [address] [place] [address] Karoline Hopson MD [address], [address] [place] [address] [facility] Start: 03-05-2023 End: 03-05-2023 Patient encounter procedure 03/05/2023 9:30 AM EST Appointment [facility] [address] [place] [address] [facility] Start: 02-07-2023 End: 02-07-2023 Patient encounter procedure [facility] [place] Start: 10-11-2022 Influenza vaccination Influenza Vacc ine [facility] Start: 09-19-2022 Adult BMI Follow Up Plan Adult BMI Follow Up Plan [facility] Start: 02-08-2022 Bacteria identified in Urine by Culture Urine Culture [facility] Start: 01-08-2022 Hemoglobin A1c measurement A1C test (Diabetic or Prediabetic) [facility] Start: 10-11-2021 Influenza vaccination Flu vacc ine (Season Ended) [facility] Start: 07-14-2021 Hemoglobin A1c measurement A1C test (Diabetic or Prediabetic) [facility] Work Phone: Start: 06-18-2021 End: 06-18-2021 Patient encounter procedure 06/18/2021 Office Visit Bariatrics Deann Navarro, FREELANCE PHOTOGRAPHER - HELPDESK TECHNICIAN [address] [place] [id number] [facility] Start: 05-24-2021 End: 05-24-2021 Patient encounter procedure 05/24/2021 Office Visit Bariatrics Patricia Mars DO [address] [place] [address] [facility] Invasive Bariatric Surg Start: 05-16-2021 End: 05-16-2021 Admission to same day surgery center 05/16/2021 Surgery IP Unit Patricia Mars DO [address] [place] [address] XI ROBOTIC LAPAROSCOPIC GASTRECTOMY SLEEVE , LIVER BIOPSY, EGD- GI SCHEDULED [facility] Comment on above: XI ROBOTIC LAPAROSCO PIC GASTRECTOMY SLEEVE , LIVER BIOPSY, EGD- GI SCHEDULED Start: 05-16-2021 End: 05-16-2021 Laps gstrc rstrictiv px longitudinal gastrectomy GASTRECTOMY SLEEVE LAPAROSCOPIC ROBOTIC MORBID OBESITY, OBSTRUCTIVE SLEEP APNEA, GERD 05/16/2021 7:10 AM EDT [facility] Start: 05-16-2021 Subsequent hospital visit by physician 05/16/2021 Hospital Encounter IP Unit Patricia Mars DO [address] [place] [address] [facility] Start: 05-13-2021 End: 05-13-2021 Patient encounter procedure 05/13/2021 Appointment Pre-Admission Testing [facility] PRE ADMIT Start: 05-10-2021 End: 05-10-2021 Patient encounter procedure 05/10/2021 Office Visit Patricia Islas DO [address] [place] [address] [facility] Invasive Bariatric Surg Start: 11-22-2020 End: 11-22-2020 Nursing evaluation of patient and report 11/22/2020 Nurse Only [facility]rics [facility] [facility] Start: 11-06-2020 End: 11-06-2020 Patient encounter procedure [facility] Start: 11-03-2020 End: 11-03-2020 Patient encounter procedure 11/03/2020 Office Visit Deann Brothers, FREELANCE PHOTOGRAPHER - HELPDESK TECHNICIAN [address] [place] [id number] [facility] Start: 10-11-2020 Influenza vaccination Flu vaccine (# 1) [facility] Start: 09-28-2020 End: 09-28-2020 Patient encounter procedure 09/28/2020 Office Visit Deann Brothers, FREELANCE PHOTOGRAPHER - HELPDESK TECHNICIAN [address] [place] [address] [facility] Start: 09-01-2015 Screening for malign ant neoplasm of cervix [facility] Start: 2009 HIV screening HIV screen [facility] Start: 2006 COVID-19 Vaccine (1) COVID-19 Vaccin e (1) [facility] [employer] Work Phone: Start: 2006 Depression Screen Depression Screen [facility] Start: 2006 Depression Screening [facility] Start: 2005 HPV vaccine (1 - 2-d ose series) HPV vaccine (1 - 2-dose series) [facility] Start: 2000 Pneumococcal 0-64 ye ars Vaccine (1 of 2 - PPSV23) Pneumococcal 0-64 years Vaccine (1 of 2 - PPSV23) [facility] Work Phone: Start: 09-01-1999 COVID-19 Vaccine (1) COVID-19 Vaccin e (1) [facility] Start: 09-01-1995 Varicella vaccine (1 of 2 - 2-dose childhood series) Varicella vaccine (1 of 2 - 2-dose childhood series) [facility] Start: 1994 Hepatitis C screening Hepatitis C sc [facility] End: 09-06-2020 Baseline Diagnostic Sleep Study Baseline Diagnostic Sleep Study Sleep Center Routine LYNN (obstructive sleep apnea) 1 Occurrences starting 09/06/2020 until 09/06/2020 [facility] [employer] Phone: Comment on above: 1 Occurrences starti ng 09/06/2020 until 09/06/2020 End: 02-08-2024 Calcium [Mass/volume] in Serum or Plasma Calcium Lab Routine 16 weeks gestation of H/O gastric sleeve 1 Occurrences starting 02/07/2023 until 02/08/2024 [employer] Comment on above: 1 Occurrences starti ng 02/07/2023 until 02/08/2024 End: 02-08-2024 CBC panel - Blood by Automated count CBC without diff Lab Routine Hypertension affecting in second trimester 16 weeks gestation of Dichorionic diamniotic twin in second trimester 1 Occurrences starting 02/07/2023 until 02/08/2024 [employer] Work Phone: Comment on above: 1 Occurrences starti ng 02/07/2023 until 02/08/2024 End: 02-08-2024 Comprehensive metabolic 2000 panel - Serum or Plasma Comprehensive metabolic panel Lab Routine Hypertension affecting in second trimester 16 weeks gestation of Dichorionic diamniotic twin in second trimester 1 Occurrences starting 02/07/2023 until 02/08/2024 [employer] Comment on above: 1 Occurrences starti ng 02/07/2023 until 02/08/2024 Continuous pulse oximetry Pulse oximetry, continuous Respiratory Care Routine Every 4hr until discontinued starting 05/16/2021 [employer] Work Phone: Comment on above: Every 4hr until disc ontinued starting 05/16/2021 End: 02-08-2024 Cyanocobalamin vitamin b-12 Vitamin B12 Lab Routine 16 weeks gestation of H/O gastric sleeve 1 Occurrences starting 02/07/2023 until 02/08/2024 [employer] Comment on above: 1 Occurrences starti ng 02/07/2023 until 02/08/2024 End: 02-08-2024 ECG 12 lead ECG 12 lead ECG Routine Hypertension affecting in second trimester 16 weeks gestation of Dichorionic diamniotic twin in second trimester 1 Occurrences starting 02/07/2023 until 02/08/2024 [employer] Comment on above: 1 Occurrences starti ng 02/07/2023 until 02/08/2024 End: 02-08-2024 Folate Folate Lab Routine 16 weeks gestation of H/O gastric sleeve 1 Occurrences starting 02/07/2023 until 02/08/2024 [employer] Comment on above: 1 Occurrences starti ng 02/07/2023 until 02/08/2024 End: 02-08-2024 Iron and TIBC Iron and TIBC Lab Routine 16 weeks gestation of H/O gastric sleeve 1 Occurrences starting 02/07/2023 until 02/08/2024 [employer] Comment on above: 1 Occurrences starti ng 02/07/2023 until 02/08/2024 End: 02-08-2024 LDH LDH Lab Routine Hypertension affecting in second trimester 16 weeks gestation of Dichorionic diamniotic twin in second trimester 1 Occurrences starting 02/07/2023 until 02/08/2024 [facility] Comment on above: 1 Occurrences starti ng 02/07/2023 until 02/08/2024 End: 02-08-2024 Natriuretic peptide B [Mass/volume] in Blood B-type natriuretic peptide Lab Routine Hypertension affecting in second trimester 16 weeks gestation of Dichorionic diamniotic twin in second trimester 1 Occurrences starting 02/07/2023 until 02/08/2024 [facility] Comment on above: 1 Occurrences starti ng 02/07/2023 until 02/08/2024 Oxygen therapy [[facility] Data Set] Initiate Oxygen Therapy Protocol Respiratory Care Routine As Needed until discontinued starting 05/16/2021 [employer] Phone: Comment on above: As Needed until disc ontinued starting 05/16/2021 End: 02-08-2024 Protein creat ratio Protein creat ratio Lab Routine Hypertension affecting in second trimester 16 weeks gestation of Dichorionic diamniotic twin in second trimester 1 Occurrences starting 02/07/2023 until 02/08/2024 [facility] Comment on above: 1 Occurrences starti ng 02/07/2023 until 02/08/2024 End: 02-08-2024 Protein, urine, 24 hour Protein, urine, 24 hour Lab Routine Hypertension affecting in second trimester 16 weeks gestation of Dichorionic diamniotic twin in second trimester 1 Occurrences starting 02/07/2023 until 02/08/2024 [facility] Comment on above: 1 Occurrences starti ng 02/07/2023 until 02/08/2024 Spirometry panel Incentive isiah metry Respiratory Care Routine Every 2hr while awake until discontinued starting 05/16/2021 [employer] Phone: Comment on above: Every 2hr while awak e until discontinued starting 05/16/2021 Surgical Pathology Surgical Path ology Lab Routine Release Upon Ordering for 1 Occurrences starting 05/16/2021 [employer] Phone: Comment on above: Release Upon Orderin g for 1 Occurrences starting 05/16/2021 End: 02-08-2024 Thiamin Vitamin B1, whole blood Thiamin Vitamin B1, whole blood Lab Routine 16 weeks gestation of H/O gastric sleeve 1 Occurrences starting 02/07/2023 until 02/08/2024 [facility] Comment on above: 1 Occurrences starti ng 02/07/2023 until 02/08/2024 End: 02-08-2024 Urate [Mass/volume] in Serum or Plasma Uric acid Lab Routine Hypertension affecting in second trimester 16 weeks gestation of Dichorionic diamniotic twin in second trimester 1 Occurrences starting 02/07/2023 until 02/08/2024 [facility] Comment on above: 1 Occurrences starti ng 02/07/2023 until 02/08/2024 End: 02-08-2024 Vitamin D 25 hydroxy Vitamin D 25 hydroxy Lab Routine 16 weeks gestation of H/O gastric sleeve 1 Occurrences starting 02/07/2023 until 02/08/2024 [facility] Comment on above: 1 Occurrences starti ng 02/07/2023 until 02/08/2024 Immunizations Immunization Date Immunization Notes Care Provider [facility] 11-12-2016 tuberculin skin test ; purified protein derivative solution, intradermal Tatiana Yap MD Work Phone: [facility] 08-10-2013 tetanus toxoid, redu yemi diphtheria toxoid, and acellular pertussis vaccine, adsorbed Tatiana Yap MD Work Phone: [facility] 10-03-1999 diphtheria, tetanus toxoids and acellular pertussis vaccine Tatiana Yap MD Work Phone: [facility] 10-03-1999 diphtheria, tetanus toxoids and acellular pertussis vaccine, unspecified formulation Eloise BURROUGHS Work Phone: [facility] 10-03-1999 hepatitis B vaccine, pediatric or pediatric/adolescent dosage Tatiana Yap MD Work Phone: [facility] 10-03-1999 measles, mumps and rubella virus vaccine Tatiana Yap MD Work Phone: [facility] 10-03-1999 poliovirus vaccine, inactivated Tatiana Yap MD Work Phone: [facility] 01-14-1996 diphtheria, tetanus toxoids and acellular pertussis vaccine Tatiana Yap MD Work Phone: [facility] 01-14-1996 diphtheria, tetanus toxoids and pertussis vaccine Eloise BURROUGHS Work Phone: [facility] 01-14-1996 haemophilus influenz ae type b vaccine, conjugate unspecified formulation Tatiana Yap MD Work Phone: [facility] 01-14-1996 measles, mumps and rubella virus vaccine Tatiana Yap MD Work Phone: [facility] 05-21-1995 diphtheria, tetanus toxoids and acellular pertussis vaccine Tatiana Yap MD Work Phone: [facility] 05-21-1995 DTP-Haemophilus influenzae type b conjugate vaccine Eloise BURROUGHS Work Phone: [facility] 05-21-1995 haemophilus influenz ae type b vaccine, conjugate unspecified formulation Tatiana Yap MD Work Phone: [facility] 05-21-1995 poliovirus vaccine, inactivated Tatiana Yap MD Work Phone: [facility] 05-21-1995 trivalent poliovirus vaccine, live, oral Eloise BURROUGHS Work Phone: [facility] 02-21-1995 diphtheria, tetanus toxoids and acellular pertussis vaccine Tatiana Yap MD Work Phone: [facility] 02-21-1995 DTP-Haemophilus influenzae type b conjugate vaccine Eloise BURROUGHS Work Phone: [facility] 02-21-1995 haemophilus influenz ae type b vaccine, conjugate unspecified formulation Tatiana Yap MD Work Phone: [facility] 02-21-1995 hepatitis B vaccine, pediatric or pediatric/adolescent dosage Tatiana Yap MD Work Phone: [facility] 02-21-1995 poliovirus vaccine, inactivated Tatiana Yap MD Work Phone: [facility] 02-21-1995 trivalent poliovirus vaccine, live, oral Eloise BURROUGHS Work Phone: [facility] 1994 diphtheria, tetanus toxoids and acellular pertussis vaccine Tatiana Yap MD Work Phone: [facility] 1994 DTP-Haemophilus influenzae type b conjugate vaccine Eloise BURROUGHS Work Phone: [facility] 1994 haemophilus influenz ae type b vaccine, conjugate unspecified formulation Tatiana Yap MD Work Phone: [facility] 1994 hepatitis B vaccine, pediatric or pediatric/adolescent dosage Tatiana Yap MD Work Phone: [facility] 1994 poliovirus vaccine, inactivated Tatiana Yap MD Work Phone: [facility] 1994 trivalent poliovirus vaccine, live, oral Eloise BURROUGHS Work Phone: [facility] 1994 hepatitis B vaccine, pediatric or pediatric/adolescent dosage Tatiana Yap MD Work Phone: [facility] Payers Date Payer Category Payer Medicaid [id number] 2022 Medicaid [id number] 2022 Self-pay 2019 Unknown [id number]. [id number] 1994 Unknown [id number] 2.16.840.1.610190.3.579.2. 173 1994 Unknown [id number] 2.16.840.1.636461.3.579.2. 173 1994 Unknown [id number] 2.16.840.1.359280.3.579.2. 173 1994 Unknown [id number] 2.16.840.1.242650.3.579.2. 593 1994 Unknown [id number] 2.16.840.1.423657.3.579.2. 593 1994 Unknown [id number] 2.16.840.1.299454.3.579.2. 593 1994 Unknown [id number] 2.16.840.1.753199.3.579.2. 593 1994 Unknown [id number] 2.16.840.1.550500.3.579.2. 593 1994 Unknown [id number] 2.16.840.1.385777.3.579.2. 593 1994 Unknown [id number] 2.16.840.1.352151.3.579.2. 175 1994 Unknown [id number] 2.16840.1.357331.3.579.2. 1286 1994 Unknown [id number] 2.16840.1.603386.3.579.2. 128 1994 Unknown [id number] 2.16840.1.981570.3.579.2. 128 1994 Unknown [id number] 2.16840.1.217873.3.579.2. 1285 1994 Unknown [id number] 2.16840.1.169958.3.579.2. 128 1994 Unknown [id number] 2.16840.1.981180.3.579.2. 1259 1994 Unknown [id number] 2.16.840.1.888440.3.579.2. 1259 1994 Unknown [id number] 2.16840.1.042658.3.579.2. 1259 1994 Unknown [id number] 2.16.840.1.406080.3.579.2. 1259 1994 Unknown [id number] 2.16840.1.996877.3.579.2. 1259 1994 Unknown [id number] 2.16.840.1.133797.3.579.2. 1258 1994 Unknown [id number] 2.16.840.1.488040.3.579.2. 1258 1994 Unknown [id number] 2.16.840.1.005536.3.579.2. 1258 1994 Unknown [id number] 2.16.840.1.123905.3.579.2. 1258 1994 Unknown [id number] 2.16.840.1.462409.3.579.2. 1258 1994 Unknown [id number] 2.16.840.1.046200.3.579.2. 1258 1994 Unknown [id number] 2.16.840.1.009407.3.579.2. 1259 1959 Private Health Insurance [id number] 1.2.840.652132.1.13.239.2. 7.3.113384.315 Private Health Insurance [facility] [id number] Unknown [id number] 2.16.840.1.359204.3.579.2. 531 Social History Date Type Detail Facility Start: 09-01-2020 End: 09-28-2020 Tobacco smoking status [facility] Current every day smoker [employer] Phone: Start: 09-01-2020 End: 07-03-2022 Cigarettes smoked current (pack per day) - Reported [facility] Start: 09-01-2020 End: 07-03-2022 Tobacco use and exposure Never used [employer] Phone: Start: 09-01-2020 End: 09-28-2020 Alcohol intake Current drinker of alcohol (finding) [employer] Phone: Start: 12-23-2019 Alcohol Comment weekly [employer] Phone: Start: 1995 Sex Assigned At Not on file [employer] Phone: Start: 04-22-2021 End: 05-16-2021 Exposure to SARS-CoV-2 (event) Not sure [employer] Exposure to SARS-CoV -2 (event) Yes [employer] Start: 01-19-2021 End: 07-03-2022 Tobacco smoking status [facility] Ex-smoker [employer] Start: 02-11-2008 End: 11-19-2020 History of tobacco use Current smoker [employer] Phone: Start: 05-02-2021 End: 02-26-2023 Alcohol intake Ex-drinker (finding) [employer] Phone: Start: 08-17-2018 End: 07-03-2022 Sex Assigned At [employer] Start: 1995 Sex Assigned At Female [facility] Start: 02-11-2008 End: 02-11-2020 History of tobacco use Cigarette Smoker [facility] [employer] [facility] History of tobacco use Tobacco U se Types Packs/Day Years Used Date Smoking Tobacco: Former Cigarettes Quit: 2020 Vaping/E-cigarettes Smokeless Tobacco: Former Quit: 11/06/2020 [facility] Start: 02-05-2023 Tobacco use and exposure Former smokeless tobacco user [facility] End: 11-06-2020 History of tobacco use User of smokeless tobacco [facility] [employer] [facility] Frequency of Communication with Friends and Family More than three times a week [facility] [employer] [facility] Start: 08-17-2018 Education 12 [facility] Start: 05-18-2022 Alcohol Comment social, every other weekend [facility] Start: 10-31-2022 [facility] Within the last year , have [...] Comment caffeine: 1-2 cups per day coffee [facility] Clinical Notes 12-04-2020 to 03-19-2023 HEIKE Meeks - 03/19/2023 11:00 AM Alva Catsillo RN - 03/05/2023 11:30 AM Augustin Hopson [...] of: HEIKE Meeks documented in this encounter [facility] 03-05-2023 History of Presen t illness Narrative Headache/epigastric pain/blurry vision/swelling? No Cramping/contractions? No Abnormal vaginal discharge? No Spotting or vaginal bleeding? No Loss of fluid like your water may have broken? No Recent ER visits or hospitalizations? Patient reports visit to [facility] approximately two weeks ago to r/o ROM [...] you for allowing [facility] to [facility]. If there are any questions, please do not hesitate to call me. Sincerely, KAROLINE HOPSON MD documented in this encounter [facility] 02-24-2023 Miscellaneous Notes Incoming telephone call from patient with concerns of leakage of fluid. Patient called in and stated that she is Leaking clear fluid and has been. Account Collector asked if she had spoken to her OB provider and she said that she had, but they told her that she is basically too early to be leaking any fluid. Account Collector recommended patient present to the nearest emergency room to be evaluated. Patient verbalized understanding and had no further questions. documented in this encounter [facility] 02-24-2023 Telephone encounter Note Incoming telephone call from patient with concerns of leakage of fluid. Patient called in and stated that she is Leaking clear fluid and has been. Account Collector asked if she had spoken to her OB provider and she said that she had, but they told her that she is basically too early to be leaking any fluid. Account Collector recommended patient present to the nearest emergency room to be evaluated. Patient verbalized understanding and had no further questions. [facility] 02-07-2023 History of Presen t illness Narrative Headache/epigastric pain/blurry vision/swelling? Occasional headaches Cramping/contractions? No Abnormal vaginal discharge? No Spotting/vaginal bleeding? No Loss of fluid like your water may have broken? No Cats in the home? No Do you change the litter box? No Flu vaccine? No Genetic testing done this here or other office? Yes Have you been seen here at [facility] in a previous ? No Recent ER visits or hospitalizations? No Bring blood sugar log or meter with you today? (Please bring them with you for every visit at [facility]) N/A Traveled outside the country in [...] AND ULTRASOUND REPORTS: Referral records and [facility] chart were reviewed Pertinent Ultrasound findings [...] operators who are performing tests using either [employer] or [facility] systems and is limited to laboratories that [...] repeat. Fact Sheet for Healthcare Providers: https://www.f da.gov/media/944980/download Fact Sheet for Patients: https://www.fda.gov/media/905213 /download HABITS: Patient activity no restrictions, diet [...] a but with an anticipation of excellent snf outcomes. In regards to the spontaneous processes, [...] previously recommended threshold of 160/110. Reference: PMID: [id number]. Blood pressures do increase as progresses and [...] preeclampsia prevention as is recommended by the [place] [employer]ne[employer] Committee Opinion No. 743. Higher doses (150mg) have been studied, but utilized a screening strategy that is not widely performed in the [place] (serum analytes and uterine artery Doppler), limiting the generalizability of the findings. We discussed the safety profile of nifedipine when used to treat chronic hypertension in , and patient information handout provided to her today: https://[employer] Inbox.org/fact-sh eets/nifedipine/pdf/ We discussed the safety profile of beta blockers when used to treat chronic hypertension in : https://[employer] Inbox.org/fact-sh eets/labetalol/pdf/ Bariatric Surgery S/p Bariatric surgery It [...] aspirin vs 10.3% no aspirin, p=0.45) (PMBID: [id number]). Given well-established benefits baby aspirin for the prevention of preeclampsia, I recommend initiating baby aspirin even in the setting of history of Joe-en-Y surgery. Micronutrient Dosing Recommendations: Calcium: recommend 1000-1200mg daily; if deficient, recommend 1800-98962 mg PO daily in divided doses Vitamin [...] sooner if clinically indicated Follow up in [facility] in 4 weeks for anatomy and clinic follow-up DISPOSITION: At this point the patient is in complete care of her capsule filling machine operator. Patient does have ultrasound and office [...] procedures Referring and communicating with other health vocational childcare teacher (not separately reported) Documenting clinical information in the electronic or other health record Tatiana Yap MD Maternal- Medicine [facility] [address] [place] [address] [facility], the CDC, and other organizations representing maternal and public health professionals recommend that , , and lactating people and those considering receive the COVID-19 vaccination. Vaccination is the best method to reduce maternal and complications of SARS-CoV-2 infection. This document was created with [employer] technology. Though I make every effort to review the dictation as it is transcribed, on occasion the spoken word can be misinterpreted by the technology leading to inappropriate words, phrases, or sentences. This note is addressed to the requesting provider as a consultation for clinical guidance. Specific medical abbreviations are occasionally used and those are generally approved by the [place]?Board of?Obstetrics and?Gynecology?as well as?Maddison hodgson abbreviations. The above plan of care was based solely on the diagnoses for which a consultation was requested. ?More frequent testing may be indicated based on her other medical/obstetrical conditions. The management of other or medical conditions is beyond the scope of requested consultation and will continue to be followed by the primary capsule filling machine operator or primary care provider. Note to [...] of the practitioner. documented in this encounter [facility] [employer] 10-12-2022 Evaluation note Encounter Date Diagnosis Assessment [...] take Sudafed and/or Mucinex for congestion. Take qdch-oqc-actil er Robitussin or Delsym for cough. Follow-up with your family physician if no improvement in 2 to 3 days. Off work tomorrow. Oct, Cough (ICD-10 - R05.9) Oct, Bronchitis (ICD-10 - J40) Acute bronchitis material was printed [employer] Other 10-19-2022 NotePatient Education Materials [id number] History of Present illness Narrative* Payal Richardson - 05/17/2021 4:25 PM EDT CLINICAL PHARMACY NOTE: MEDS TO BEDS Total # of Prescriptions Filled: 5 The following medications were delivered to the patient: Percocet 5-325mg Promethazine 25mg Cyclobenzaprine 10mg Famotidine 20mg Enoxaparin 40mg/0.4ml Additional Documentation: delivered to patient in room 234 05/17 at 4:03pm. No co-pay. * Avelino rGoss RN - 05/17/2021 9:39 AM EDT Discussed bariatric discharge instructions with patient, allowed time for questions, had patient demonstrate IS, lovenox teaching done and patient voices understanding documented in this [facility] Phone: [phone]) 113-259604-07-2022 Hospital Discharge instructions* Instructions* Hannah Zavaleta RN - 05/17/2021 Discharge Instructions for Bariatric Surgery You had a Laparoscopic Sleeve Gastrectomy (74496) surgery to treat obesity. Recovery from this [...] scheduled appointment, please call the office at [phone]. Call Your Doctor If Any of the [...] sent through Care Everywhere. * Enoxaparin (Lovenox) (Malawian) * Video: How to Give Yourself an Anticoagulant (Blood Thinner) Shot (Malawian) documented in this [facility] Phone: [phone]) 627-995803-23-2022 Hospital Discharge instructions* Instructions* Kendal Wilhelm APRN [...] Day of Surgery/Procedure As a patient at [facility] you can expect quality medical and nursing care that is centered on your individual needs. Our goal is to make your surgical experience as comfortableas possible Directions to the Surgery Center The surgery Center at [facility] is located in the Emergency Room parking lot on [address] or there is additional parking across the street. The address is [address] [place] [address]. Please check in at the Surgery Center [...] on the day of surgery please contact [phone] or [phone] If you have any other questions regarding your procedure/surgery please call your surgeon's office. documented [facility] this [facility] Phone: [phone] 350-521503-23-2022 History of Present illness Narrative* Eloise Chi [...] syndrome) Under care of team 05/02/2021 pcp-Dr MelgozaZysvei-qpzhfub-rpuv visit april 2021 Patient was evaluated in PAT & anesthesia guidelines were applied. NPO guidelines, medication instructions and scheduled arrival time were reviewed with patient. Anesthesia contacted: no Medical or cardiac clearance ordered: no, medical clearance obtained. LAURA Garcia CNP 05/02/21 11:53 AM documented in this encounterKudan Phone: [phone] 335-702510-25-2021 Evaluation note* Encounter Date Diagnosis Assessment Notes Treatment Notes Treatment Clinical Notes Nov, Contact with and (suspected) exposure to other viral communicable diseases (ICD-10 - Z20.828) Nov, Viral URI with cough (ICD-10 - J06.9) No COVID test completed at this time. Advised patient that will tx as viral URI. Supportive care as directed, increase fluids and rest, Tylenol/Motrin as directed, rx of Corona and Flonase as directed, cool mist humidifier, [...] Patient care instructions given in writting by [facility] Care At Home document [employer] Other Evaluation note* Diagnosis LYNN (obstructive sleep apnea) Obstructive sleep apnea (adult) (pediatric) documented in this encounter [facility] Phone: [email or web address] note* Diagnosis S/P laparoscopic sleeve gastrectomy- Primary Post-op pain Other acute postoperative pain documented in this encounter [facility] Phone: [email or web address] noteNo assessment information available [facility] Work Phone: Evalutblxr noteNo InformationNort [employer] Other Evalufuvsj note* Diagnosis Hypertension affecting in second trimester- Primary 16 weeks gestation of Dichorionic diamniotic twin in second trimester H/O gastric sleeve [facility]* Diagnosis Hypertension affecting in second trimester 16 weeks gestation of Dichorionic diamniotic twin in second trimester documented [facility]* Diagnosis Hypertension affecting in second trimester- Primary Dichorionic diamniotic twin in second trimester [facility]* Diagnosis History of sleeve gastrectomy- Primary History of induced hypertension [facility]* Diagnosis Second trimester state, incidental Diabetes mellitus screening Screening for diabetes mellitus [facility] - [facility]* Type Description Date Medical History METABOLIC SYNDROME Medical History SYNCOPE Medical History anxiety Surgical History WISDOM TEETH Surgical History TONSILECTOMY Surgical History ENDOSCOPY AND COLONSCOPY Surgical History C section Hospitalization History see above [employer] Other History general Narrative - Reported* Type Description Date Medical History METABOLIC SYNDROME Medical History SYNCOPE Medical History anxiety Surgical History WISDOM TEETH Surgical History TONSILECTOMY Surgical History ENDOSCOPY AND COLONSCOPY Surgical History C section Surgical History gastric sleeve Hospitalization History see above [employer] Other Hisagbl general Narrative - Reported* Type Description Date Medical History METABOLIC SYNDROME Medical History SYNCOPE Medical History anxiety Surgical History WISDOM TEETH Surgical History TONSILECTOMY Surgical History ENDOSCOPY AND COLONSCOPY Surgical History C section Surgical History gastric sleeve Surgical History cholcystectomy 09/10/2022 Hospitalization History see above [employer] Other InstructionsNot on filedocumented in this encounter [facility] filed[facility] in this [facility] filedocumented in this encounter [facility] filedocumented in this encounter [facility] filedocumented in this encounter [facility] Narrative* Auth/Cert Specialty Diagnoses / Procedures Referred By Contlee t Referred To Contact Diagnoses Morbid obesity (HCC) Obstructive sleep apnea GERD (gastroesophageal reflux disease) MORBID OBESITY, OBSTRUCTIVE SLEEP APNEA, GERD Procedures IL LAP, JAY RESTRICT PROC, LONGITUDINAL GASTRECTOMY XI ROBOTIC LAPAROSCOPIC GASTRECTOMY SLEEVE , LIVER BIOPSY, EGD- GI SCHEDULED Patricia Mars, DO [address] [facility] [address] [place] [address] [address] [place] [address] Referral ID Status Reason Start Date Expiration Date Visits Re quested Visits Authorized [id number] 1 1 [facility] Phone: Summary Purpose Family History No Family [...] Procedures Referred By Contact Referred To Contact [facility] Diagnoses LYNN (obstructive sleep apnea) Procedures Baseline Diagnostic Sleep Study Ike Moreno MD [address] [address] Specialty Diagnoses / Procedures Referred By Contac t Referred To Contact Diagnoses Hypertension affecting in second trimester 16 weeks gestation of Dichorionic diamniotic twin in second trimester Procedures ECG 12 lead Tatiana Yap MD [address] [place] [address] Referral ID Status Reason Start Date Expiration Date V isits Requested Visits Authorized [id number] Pending Review 02/07/2023 02/07/2024 1 1 Specialty Diagnoses / Procedures Referred By Contac t Referred To Contact Maternal and Medicine Diagnoses Hypertension affecting in second trimester Dichorionic diamniotic twin in second trimester Procedures MFM with or without consult Karoline Hopson MD [address] [place] [address] [facility] [address] [place] [address] Referral ID Status Reason Start Date Expiration Date V isits Requested Visits Authorized [id number] Pending Review 03/05/2023 03/04/2024 1 1 Chief Complaint and Reason for Visit Chief Complaint Dysuria Additional Source Comments INFORMATION SOURCE (unrecogn ized section and content) DATE CREATED AUTHOR 07/31/2017 Garza Hodgeman [facility] DATE CREATED AUTHOR AUTHOR'S ORGANIZ ATION 05/21/2021 Khushbu Landa [facility] DATE CREATED AUTHOR AUTHOR'S ORGANIZ ATION 12/03/2021 [facility] DATE CREATED AUTHOR AUTHOR'S ORGANIZ ATION 01/12/2022 [facility] DATE CREATED AUTHOR AUTHOR'S ORGANIZ ATION 02/11/2022 [facility] DATE CREATED AUTHOR AUTHOR'S ORGANIZ ATION 09/13/2022 [facility] DATE CREATED AUTHOR AUTHOR'S ORGANIZ ATION 02/09/2023 [facility] DATE CREATED AUTHOR AUTHOR'S ORGANIZ ATION 04/12/2023 [facility] DATE CREATED AUTHOR AUTHOR'S ORGANIZ ATION 05/29/2023 [facility] Reason for Visit (unrecogniz ed section and content) Status Reason Specialty Diagnoses / Procedures Referred By Contact Referred To Contact [facility] Diagnoses LYNN (obstructive sleep apnea) Procedures Baseline Diagnostic Sleep Study Ike Moreno MD [address] [facility] [address] [place] [address] Status Reason Specialty Diagnoses / Procedures Referre d By Contact Referred To Contact Diagnoses K21.9 GERD E66.9 OBESITY Procedures IL EGD TRANSORAL BIOPSY SINGLE/MULTIPLE EGD BIOPSY Patricia Mars, DO [address] [facility] [address] [place] [address] [facility] Reason Comments twin HX C/S HX gastric sleeve HX PTD Reason Comments Dichorionic Diamniotic Twin Hypertension Reason Comments Routine Visit Care Teams (unrecognized sec tion and content) Business Project Manager Relationship Specialty Start Date End Date Stephane Martin MD [address] [place], [place] [id number] PCP - General 05/17/20 Business Project Manager Relationship Specialty Start Date End Date Stephane Martin MD [address] [place], [place] [id number] PCP - General 05/17/20 Team Status: Inactive Member Role Status Dates Ale Shields APRN Attending Provider Active Business Project Manager Relationship Specialty Start Date End Date Margot Toure DO [address] [place] [address] PCP - General Family Medicine 01/03/23 Business Project Manager Relationship Specialty Start Date End Date Margot Toure DO [address] [place] [address] PCP - General Family Medicine 01/03/23 Business Project Manager Relationship Specialty Start Date End Date Margot Toure DO [address] [place] [address] PCP - General Family Medicine 01/03/23 Business Project Manager Relationship Specialty Start Date End Date Margot Toure DO [address] [place] [address] PCP - General Family Medicine 01/03/23 Business Project Manager Relationship Specialty Start Date End Date Margot Toure DO [address] [place] [address] PCP - General Family Medicine 01/03/23 Business Project Manager Relationship Specialty Start Date End Date Margot Toure DO [address] [place] [address] PCP - General Family Medicine 01/03/23 Business Project Manager Relationship Specialty Start Date End Date Margot Toure DO [address] [place] [address] PCP - General Family Medicine 07/01/22 Business Project Manager Relationship Specialty Start Date End Date Margot Toure DO [address] [place] [address] PCP - General Family Medicine 07/01/22 Ordered [...] (Given - Provider: Sharmin Sam APRN - [facility]) ceFAZolin (ANCEF) 3000 mg in sterile water [...] 921 (See Alternative - Provider: Hannah Zavaleta RN)2099 (Due) famotidine (PEPCID) tablet 20 mg(Linked Group [...] RN) 0758 (Given - Provider: Hannah Zavaleta RN)1330 (Given - Provider: Hannah Zavaleta RN)2099 (Due) heparin (porcine) injection 5,000 Units (COMPLETED) 5,000 Units, SubCUTAneous, ONCE, 1 dose, On Fri05/16/21 at 0630, Pre-op (day of surgery) 0629 (Given - Provider: Whitney Ray RN) heparin (porcine) injection 5,000 Units 5,000 Units, SubCUTAneous, EVERY 8 HOURS SCHEDULED (3 times per day), First dose on Fri05/16/21 at 1430, Until Discontinued 153 (Given - Provider: Hannah Zavaleta RN)220 (Given - Provider: Nohemy Underwood RN) 06 [...] Patient/family refused)1320 (Given - Provider: Sanjay Boyer RCP)2058 (Given - Provider: Giana Carter RCP) 0732 [...] (2 times per day), First dose on 05/16/21 at 1030, Until Discontinued, For Line Patency: [...] IntraVENous, at 50 mL/hr, CONTINUOUS, Starting on 05/16/21 at 0630, Pre-op (day of surgery) 0630 (Due) 1631 (Stopped - Provider: Hannah Zavaleta RN) lactated ringers infusion IntraVENous, at 100 mL/hr, CONTINUOUS, Starting on Fri05/16/21 at 0630, Pre-op (day of surgery) 0650 (New Bag - Provider: Whitney Ray RN)0709 (NoRateChange - Provider: Sharmin Sam APRN - ACCOUNTING MANAGER ASSISTANT CONTROLLER)0856 (Anesthesia Volume Adjustment - Provider: Sharmin Sam APRN - ACCOUNTING MANAGER ASSISTANT CONTROLLER) 1631 (Stopped - Provider: Hannah Zavaleta RN) [...] Hannah Zavaleta RN)2007 (Given - Provider: Nohemy Underwood, RN) 044 (Given - Provider: Nohemy Underwood, RN) oxyCODONE-acetaminophen [...] to back table, 1000 ml. 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 [employer] provides no warranty or guarantee of the accuracy or completeness of information in this document.
[2023-06-02 19:53] VITALS: BP 123/75; PULSE 83
== END 2023-06-02 20:35 | disposition home or self-care (01) ==
LOC: US 18:54 → FBC 18:56
PROVIDERS: Visit Provider Obstetrics & Gynecology
DX: O30.043 Twin pregnancy, dichorionic/diamniotic, third trimester (principal); O99.013 Anemia complicating pregnancy, third trimester; Z3A.32 32 weeks gestation of pregnancy
CPT/HCPCS: 59025; 76810; 76818

== ENCOUNTER 2023-06-05 07:38 | Outpatient (OUT) | payer MEDICAID, SELFPAY ==
--- OUTSIDE RECORDS SUMMARY | 2023-06-05 07:41 | XMS_ITS | CCD ---
Author Organization [facility] Care Team Providers Care News Editor Name Role Phone Neo Anderson Unavailable Unavailable Neo Anderson Unavailable Unavailable Jose Maria Ortega MD, [facility] Primary Care Provider DOC [place]EE[place] Referring Unavailable JOSE MARIA ORTEGA, STEPHANE Primary Care Unavailtina e DOC [place]EE[place] Referring Unavailable JOSE MARIA ORTEGA, [facility] Primary Care Unavailabl e IKE MORENO Referring Unavailable JOSE MARIA ORTEGA, [facility] Primary Care Unavailabl e Ale Harris [...] Unavailable Cornelius LAURA Ale Kishor Attending Provider [phone] Cornelius Ale Unavailable PATRICIA MARS Attending Unavailable PATRICIA MARS Admitting Unavailable YAW, MARGOT Primary Care Unavailable Lilia Daugherty Unavailable Yaw DO, Margot G Primary Care Provider YAW, MARGOT G Referring Unavailable YAW, MARGOT G Primary Care Unavailable TATIANA YAP Attending Unavailable YAW, MARGOT G Referring Unavailable YAW, MARGOT G Primary Care Unavailable Yaw DO, Margot G Primary Care Provider [phone] ZACARIASCHRISTIAN MORRISY R Referring Unavailable YAW, MARGOT G Primary Care Unavailable ZACARIAS, NIGEL R Referring Unavailable YAW, MARGOT G Primary Care Unavailable KAROLINE HOPSON Attending Unavailable ZACARIAS, NIGEL R Referring Unavailable YAW, MARGOT G Primary Care Unavailable ZACARIAS, NIGEL Attending Unavailable ZACARIAS, NIGEL Attending Unavailable ELOISE DOMINGUEZ Attending Unavailable ZACARIAS, NIGEL Attending Unavailable ZACARIAS, NIGEL Attending Unavailable KIMMY MACHUCA Attending Unavailab ELOISE Ivey Attending Unavailable AZCARIAS, NIGEL Attending Unavailable YAW, MARGOT G Attending Unavailable ZACARIAS, NIGEL Attending Unavailable YAW, MARGOT G Attending Unavailable Allergies Allergy Classification Reported Allergen(s) Allergy Type Date of Onset Reaction(s) Facility (11 sources) Ibuprofen; Translations: [IBUPROFEN] Drug Allergy 09-19-2021 [facility] Medications Current Medications Medication Drug Class(es) [...] 30 mg oral tablet (1 source) Uncompetitive D-qhbvma-Y-aspartate Receptor Antagonist, Sigma-1 Agonist Start: 2020 take 1 tablet by mouth every eight hours Warren DMT 30-30 MG 1 tablet Orally every [...] Iron (2 sources) Iron Active lactobacillus acidophilus [id number] unt / pectin 100 mg oral tablet [...] extended release oral tablet (2 sources) Uncompetitive Z-ijqwoc-V-asparta te Receptor Antagonist, Sigma-1 Agonist Start: 01-14-2022 [...] Interpretation Reference Range Facility [facility] UA (CLEAN/CATCH) CORK TILE FLOOR LAYER/LISA RO IF IND.on 03-24-2023 BILIRUBIN URINE Negative NEGATIVE [facility] thcare BLOOD URINE Negative NEGATIVE [facility] re Clarity (U) CLEAR CLEAR [facility] re Color (U) YELLOW YELLOW [facility] e GLUCOSE URINE UA Negative NEGATIVE mg/dL [facility] Interpretation and review of laboratory results Abnormal [facility] re Ketones Ql (U) TRACE Abnormal NEGATIVE mg/dL [facility] ealthcare Leukocyte esterase Test strip Ql (U) Negative NEGATIVE [facility] NITRITE URINE Negative NEGATIVE [facility] Health care pH (U) 6.0 [pH] 5.0 - 9.0 [facility] e PROTEIN URINE TRACE NEG/TRACE mg/dL [facility] SPECIFIC GRAVITY URINE >=1.030 Abnormal 1.005 - 1.025 [facility] URINE MICROSCOPIC INDICATED NO [facility] UROBILINOGEN URINE 0.2 EU/dL 0.2 - 1.0 EU/dL [facility] Urinalysis macro (dipstick) panel (U)on 03-19-2023 Bilirubin, UA Negative Negative - 4(70) +++ mg/dL [facility] Blood, UA Negative Negative - 50 Krzysztof/mcL [facility] Clarity, UA Clear [facility] re Color, UA Yellow [facility] Glucose, UA Negative Negative - 1999(110) ++++ mg/dL [facility] Interpretation and review of laboratory results Abnormal [facility] re Ketones, UA Negative Negative - 160(16) ++++ mg/dL [facility] Leukocytes, UA Negative Negative - 500+++ Mckayla/mcL [facility] Nitrite, UA Negative Negative - Positive [facility] pH, UA 6.0 5 - 9 [facility] e Protein, UA Positive Negative - 1999(20) ++++ mg/dL [facility] Spec Grav, UA 1.030 1 - 1.03 [facility] Urobilinogen, UA 0.2 0.2 - 12 mg/dL [facility] e CBC without diffon External Hematocrit Hct 33.7 [facility] Comment on above: See attached External Hemoglobin 10.9 [facility] Comment on above: See attached External MCH 29.0 [facility] alth System Comment on above: See attached External Mchc 32.3 [facility]alth System Comment on above: See attached External Mcv 89.6 [facility] Comment on above: See attached External Mpv 9.7 [facility]th System Comment on above: See attached External Platelet Count 268 [facility] Comment on above: See attached External Rbc Count 3.76 [facility] Comment on above: See attached External Rdw 13.4 [facility]th System Comment on above: See attached External Wbc Count 9.5 [facility] Comment on above: See attached [facility] System Urine protein creatinine rat ioon 02-27-2023 Protein/Creatinine (U) [Mass ratio] 0.10 mg/g [facility] Comment on above: see attached [facility] Ultrasound - Officeon 2022 Radiology Study observation (narrative) [facility] HIV 1&2 AB/AG Screen (P24 AG )on 12-20-2022 HIV 1&2 AB/AG Non-Reactive [facility] Hepatitis B surface antigeno n 12-20-2022 Hepatitis B Surface Antigen Negative [facility] No Panel Informationon 12-20 [facility] [place] [facility] Rubella IGG immune statuson 12-20-2022 Rubella immune IgG 1.96 [facility] Syphilis Total(Unknown Syphi lis Status)on 12-20-2022 Syphilis Non-Reactive [facility] System Ultrasound - Officeon 2022 SEE SCANNED REPORt MANUAL LY TRANSCRIBED RESULTS [facility] COVID + FLU Quick Testingon 10-12-2022 SARS-CoV-2 (COVID-19) RNA BECCA+probe Ql (Unsp spec) negtaive [facility] [employer] Other COVID + FLU Quick Testing Negative [facility] [employer] Other Basic Metabolic Profon 09-11 Anion gap [Moles/Vol] 9 mmol/L Normal 9-17 [facility] Comment on above: Performed By: #### B FIFI, CBC, PT #### [employer] [address] [place] [address] Inventory Associate: Anthony Aguilar MD Calcium [Mass/Vol] 8.8 mg/dL Normal 8.6-10.4 [facility] Comment on above: Performed By: #### B MP, CBC, PT #### [employer] [address] [place] [address] Inventory Associate: Anthony Aguilar MD Chloride [Moles/Vol] 106 mmol/L Normal 98-107 [facility] Comment on above: Performed By: #### B MP, CBC, PT #### [employer] [address] [place] [address] Inventory Associate: Anthony Aguilar MD CO2 [Moles/Vol] 23 mmol/L Normal 20-31 [facility] Comment on above: Performed By: #### B MP, CBC, PT #### [facility] [employer] [address] [place] [address] Inventory Associate: Anthony Aguilar MD Creatinine [Mass/Vol] 0.7 mg/dL Normal 0.5-0.9 [facility] Comment on above: Performed By: #### B MP, CBC, PT #### [facility] [employer] [address] [place] [address]796 Inventory Associate: Anthony Aguilar MD GFR/1.73 sq M.predicted among non-blacks MDRD (S/P/Bld) [Vol rate/Area] mL/min/{1.73_m2} Normal >60 [facility] Comment on above: Result Comment: These results [...] By: #### B FIFI, CBC, PT #### [facility] [employer] [address] [place] [address] Inventory Associate: Anthony Aguilar MD Glucose [Mass/Vol] 79 mg/dL Normal 70-99 [facility] Comment on above: Performed By: #### B FIFI, CBC, PT #### [facility] [employer] [address] [place] [address] 067[address] Inventory Associate: Anthony Aguilar MD Potassium [Moles/Vol] 4.1 mmol/L Normal 3.7-5.3 [facility] Comment on above: Performed By: #### B MP, CBC, PT #### [facility] [employer] [address] [place] [address] Inventory Associate: Anthony Aguilar MD Sodium [Moles/Vol] 138 mmol/L Normal 135-144 [facility] Comment on above: Performed By: #### B MP, CBC, PT #### [facility] [employer] [address] [place] [address] Inventory Associate: Anthony Aguilar MD Urea nitrogen [Mass/Vol] 11 mg/dL Normal 6-20 [facility] Comment on above: Performed By: #### B MP, CBC, PT #### [facility] [employer] [address] [place] [address] 15793 Inventory Associate: Anthony Aguilar MD CBCon 09-11-2022 Erythrocyte distribution width (RBC) [Ratio] 13.2 % Normal 11.8-14.4 [facility] Comment on above: Performed By: #### B MP, CBC, PT #### [facility] [employer] [address] [place] [address] Inventory Associate: Anthony Aguilar MD Hematocrit (Bld) [Volume fraction] 41.6 % Normal 36.3-47.1 [facility] Comment on above: Performed By: #### B MP, CBC, PT #### [facility] [employer] [address] [place] [address] Inventory Associate: Anthony Aguilar MD Hemoglobin (Bld) [Mass/Vol] 13.3 g/dL Normal 11.9-15.1 [facility] Comment on above: Performed By: #### B MP, CBC, PT #### [facility] [employer] [address] [place] [address] 31951 Inventory Associate: Anthony Aguilar MD MCH (RBC) [Entitic mass] 28.3 pg Normal 25.2-33.5 [facility] Comment on above: Performed By: #### B MP, CBC, PT #### [facility] [employer] [address] [place] [address] Inventory Associate: Anthony Aguilar MD MCHC (RBC) [Mass/Vol] 32.0 g/dL Normal 28.4-34.8 [facility] Comment on above: Performed By: #### B MP, CBC, PT #### [address] [address] Inventory Associate: Anthony Aguilar MD MCV (RBC) [Entitic vol] 88.5 fL Normal 82.6-102.9 [facility] Comment on above: Performed By: #### B MP, CBC, PT #### [address] [address] Inventory Associate: Anthony Aguilar MD NRBC Automated 0.0 per 100 WBC Normal 0.0 [facility] Comment on above: Performed By: #### B MP, CBC, PT #### [address] [address] Inventory Associate: Anthony Aguilar MD Platelet mean volume (Bld) [Entitic vol] 9.7 fL Normal 8.1-13.5 [facility] Comment on above: Performed By: #### B MP, CBC, PT #### [address] [address] Inventory Associate: Anthony Aguilar MD Platelets (Bld) [#/Vol] 276 10*3/uL Normal 138-453 [facility] Comment on above: Performed By: #### B MP, CBC, PT #### [address] [address] Inventory Associate: Anthony Aguilar MD RBC (Bld) [#/Vol] 4.70 10*6/uL Normal 3.95-5.11 [facility] Comment on above: Performed By: #### B MP, CBC, PT #### [address] [address] Inventory Associate: Anthony Aguilar MD WBC (Bld) [#/Vol] 7.4 10*3/uL Normal 3.5-11.3 [facility] Comment on above: Performed By: #### B MP, CBC, PT #### [facility] [place], [place] [id number] Inventory Associate: Anthony Aguilar MD PTon 09-11-2022 INR Coag (PPP) [Relative time] 1.0 {INR} Normal [facility] Comment on above: Result Comment: Therapeutic Range: Moderate Anticoagulant Intensity: INR = 2.0-3.0 High Anticoagulant Intensity: INR = 2.5-3.5 Performed By: #### B MP, CBC, PT #### [facility] [employer] [facility] [place], [place] [phone] Inventory Associate: Anthony Aguilar MD PT Coag (PPP) [Time] 12.9 s Normal 11.7-14.9 [facility] Comment on above: Performed By: #### B MP, CBC, PT #### [facility] [address] [place] [address] [phone] Inventory Associate: Anthony Aguilar MD Surgical Pathologyon 023 Surgical Pathology (NOTE) Path Number: [id number] -- Diagnosis -- GALLBLADDER, CHOLECYSTECTOMY: -CHRONIC CHOLECYSTITIS [...] lesions or periductal lymph nodes are identified. Bankruptcy Judge sections 1c. tm Microscopic Description Microscopic examination performed. Processing Lab: [address] [id number] Interpretation Performed at [address] [phone] SURGICAL PATHOLOGY CONSULTATION Patient Name: FINA WALKER [facility] Rec: [id number] [facility] [email or web address] [facility] ANATOMIC PATHOLOGY [address] [place], [place] [address] Normal [facility] Urine Cultureon 02-08-2022 Bacteria identified Cx Nom (U) Reason for Exam Dysuria Urine ORGANISM: Escherichia coli (O:ESCCOL) [place] Count >100,000 Aerobic LISA Charge (NMIC56) ---- [...] RESISTANT TO ALL B-LACTAM DRUGS. PERFORMED BY: [place] [id number] PATHOLOGIST LOSS PREVENTION GUARD SAMIRA WEN M.D. Normal [facility] Comment on above: Performed By: #### C UU #### [place] [id number] [facility] VC CONSULT FOLLOWUPon 2021 VC CONSULT FOLLOWUP Patient: FINA WALKER Exam Date: 01/08/2022 : 1995 Gender:F Ordering : DR JAMEEL ABEBE M.D. Admission #: [id number] Family : Order #: [id number] CLICK HERE TO VIEW EXAM RADIOLOGY REPORT [...] Hinton M.D. on 01/08/2022 at 10:10 Normal [facility] VC EXT VENOUS RT LIMITEDon 1 03-10-2021 VC EXT VENOUS RT LIMITED Patient: FINA WALKER Exam Date: 01/08/2022 : 1995 Gender:F Ordering : DR JAMEEL ABEBE M.D. Admission #: [id number] Family : Order #: [id number] CLICK HERE TO VIEW EXAM RADIOLOGY REPORT [...] on 01/08/2022 at 10:05 Normal [facility] VC ENDOVENOUS ABL 1ST V RTon 12-31-2021 VC ENDOVENOUS ABL 1ST V RT Patient: FINA WALKER Exam Date: 12/31/2021 : 1995 Gender:F Ordering : DR JAMEEL ABEBE M.D. Admission #: [id number] Family : Order #: [id number] CLICK HERE TO VIEW EXAM RADIOLOGY REPORT [...] Abebe MD on 12/31/2021 at 11:06 Normal [facility] ED Clinical Summaryon 2021 ED Clinical Summary [facility] ? Urgent Care [address] [place] [id number] Clinical Summary PERSON INFORMATION Name: VERNON WALKER Age: 26 Years Sex: FEMALE : 1995 MRN: Acct#: Visit Reason: OTTERBEIN PHYSICAL Arrival: 11/28/2021 10:39:56 Discharge: 11/28/2021 10:59:00 LOS: 000 00:20 Check In: 11/28/2021 10:39:56 Checkout: 11/28/2021 10:59:00 Address: [address] [place] [address] PCP: Provider, None PROVIDER INFORMATION VITALS INFORMATION Vital Sign Triage Latest Temperature Tympanic Temperature Temporal Artery Pulse Rate O2 Sat Respiratory Rate Blood Pressure / / MEDICAL INFORMATION Medications Given: Allergy Information: No known allergies PHYSICIAN DOCUMENTATION DISCHARGE INFORMATION: Discharge Disposition: Eloped Discharge Location: PATIENT EDUCATION INFORMATION Instructions: Follow-Up: DIAGNOSIS: Patient Understands: Comment: Normal [facility] ED Patient Summaryon 022 ED Patient Summary [facility] ? Urgent Care [address] [place] [address] PATIENT DISCHARGE INSTRUCTIONS Patient Information Name: VERNON WALKER Age: 26 Years Date of : 1995 Reason For Visit: OTTERBEIN PHYSICAL Arrival Time: 11/28/2021 10:39:56 Primary Care Physician: Provider, None Attending Physician: Nuno Bradshaw Comment: Patient Education Medication Information: The exam and treatment [facility] received [facility] were for an urgent problem and are not intended as complete care. It is important for you to follow up with a doctor, nurse practitioner, or physician?s assistant site manager for ongoing care. If your symptoms [...] can reach you if necessary. [facility] Emergency Department has provided you with a complete list of medications post discharge. Please inform your computed tomography technologist/provider of your visit and for further instruction [...] and Prevention October 2013 [facility] VC CONSULT FOLLOWUPon 2021 VC CONSULT FOLLOWUP Patient: FINA WALKER Exam Date: 11/28/2021 : 1995 Gender:F Ordering : DR JAMEEL ABEBE M.D. Admission #: [id number] Family : Order #: [id number] CLICK HERE TO VIEW EXAM RADIOLOGY REPORT [...] Courtney Hinton M.D. on 11/28/2021 at 10:04 [facility] VC EXT VENOUS LT LIMITEDon 1 VC EXT VENOUS LT LIMITED Patient: FINA WALKER Exam Date: 11/28/2021 : 1995 Gender:F Ordering : DR JAMEEL ABEBE M.D. Admission #: [id number] Family : Order #: [id number] CLICK HERE TO VIEW EXAM RADIOLOGY REPORT [...] Hinton M.D. on 11/28/2021 at 09:45 Normal [facility] VC ENDOVENOUS ABL 1ST V LTon 11-22-2021 VC ENDOVENOUS ABL 1ST V LT Patient: FINA WALKER Exam Date: 11/22/2021 : 1995 Gender:F Ordering : DR JAMEEL ABEBE M.D. Admission #: [id number] Family : Order #: [id number] CLICK HERE TO VIEW EXAM RADIOLOGY REPORT PROCEDURE: VEIN CENTER ENDOVENOUS ABLATION FIRST VEIN LEFT GREAT SAPHENOUS VEIN COMPARISON: VC VENOUS REFLUX JOVANA LMT, 10/17/2021. INDICATIONS: Pain co-occurrent and due to varicose veins of bilateral legs I83.813 OPERATIVE REPORT: The risks and benefits of the procedure had been previously discussed, and were rediscussed at length. Informed written consent was obtained by pr and Christopher Zavala assisted. Time out procedure [...] Jameel Abebe MD on 11/22/2021 at 09:04 [facility] VC COMP CONSULTATIONon 10-17 VC COMP CONSULTATION Patient: FINA WALKER Exam Date: 10/17/2021 : 1995 Gender:F Ordering : DR JAMEEL ABEBE M.D. Admission #: [id number] Family : Order #: [id number] CLICK HERE TO VIEW EXAM RADIOLOGY REPORT [...] arterial disease 5. CEAP: C2, EC, AP, RI PLAN: 1. Continued use of compression stockings [...] on 10/17/2021 at 12:46 Normal [facility] Basic Metabolic Panelon 04-0 Anion gap [Moles/Vol] 8 mmol/L Low 9 - 17 mmol/L [employer] Calcium [Mass/Vol] 8.6 mg/dL 8.6 - 10. 4 mg/dL [employer] Chloride [Moles/Vol] 106 mmol/L 98 - 107 mmol/L [employer] CO2 [Moles/Vol] 23 mmol/L 20 - 31 mmol/L [employer] Creatinine [Mass/Vol] 0.67 mg/dL 0.50 - 0.90 mg/dL [employer] GFR >60 >60 mL/min [employer] GFR Non- >60 >60 mL/min [employer] GFR/1.73 sq M.predicted MDRD (S/P/Bld) [Vol rate/Area] [employer] Comment on above: Average GFR for 20-2 9 years old: 116 mL/min/1.73sq m Chronic Kidney Disease: <60 mL/min/1.73sq m Kidney failure: <15 mL/min/1.73sq m eGFR calculated using average adult body mass. Additional eGFR calculator available at: http://www.[employer].Nagi/multiple_crcl_2012.htm Glucose [Mass/Vol] 83 mg/dL 70 - 99 mg/dL [facility] [employer] Interpretation and review of laboratory results Abnormal [employer] Potassium [Moles/Vol] 3.9 mmol/L 3.7 - 5.3 mmol/L [employer] Sodium [Moles/Vol] 137 mmol/L 135 - 144 mmol/L [employer] Urea nitrogen (BldV) [Mass/Vol] 7 mg/dL 6 - 20 mg/dL [employer] [facility] CBCon 05-17-2021 Hematocrit (Bld) [Volume fraction] 34.4 % Low 36.3 - 47.1 % [employer] Hemoglobin.gastroin testinal spec 1 Ql (Stl) 11.0 [...] Hospital WBC (Bld) [#/Vol] 13.7 10*3/uL High [facility] SURGICAL PATHOLOGY REPORTon 05-17-2021 Surgical Pathology [...] x 0.5 cm piece of adipose tissue. Bankruptcy Judge sections 1cs. tm Microscopic Description 1 H&E reviewed. Microscopic examination performed. SURGICAL PATHOLOGY CONSULTATION Patient Name: FINA WALKER [facility] Rec: [id number] Path Number: [id number] [facility] [email or web address] [facility] ANATOMIC PATHOLOGY [address] [place], [place] [address] [facility] [employer] Basic Metabolic Panelon Anion gap [Moles/Vol] 10 mmol/L 9 - 17 mmol/L [facility] [employer] Calcium [Mass/Vol] 8.7 mg/dL 8.6 - 10. 4 mg/dL [facility] [employer] Chloride [Moles/Vol] 105 mmol/L 98 - 107 mmol/L [facility] [employer] CO2 [Moles/Vol] 23 mmol/L 20 - 31 mmol/L [facility] Creatinine [Mass/Vol] 0.75 mg/dL 0.50 - 0.90 mg/dL [facility] GFR >60 >60 mL/min [facility] [employer] GFR Non- >60 >60 mL/min [facility] [employer] GFR/1.73 sq M.predicted MDRD (S/P/Bld) [Vol rate/Area] [facility] Comment on above: Average GFR for 20-2 9 years old: 116 mL/min/1.73sq m Chronic Kidney Disease: <60 mL/min/1.73sq m Kidney failure: <15 mL/min/1.73sq m eGFR calculated using average adult body mass. Additional eGFR calculator available at: http://www.c-[employer]cta/multiple_crcl_2011.htm Glucose [Mass/Vol] 132 mg/dL High 70 - 99 mg/dL [facility] [employer] Interpretation and review of laboratory results Abnormal [employer] [facility] Potassium [Moles/Vol] 3.5 mmol/L Low 3.7 - 5.3 mmol/L [facility] [employer] Sodium [Moles/Vol] 138 mmol/L 135 - 144 mmol/L [facility] [employer] Urea nitrogen (BldV) [Mass/Vol] 10 mg/dL 6 - 20 mg/dL [facility] CBC without Diffon 2 Hematocrit (Bld) [Volume fraction] 38.8 % 36.3 - 47.1 % [facility] Hemoglobin.gastroin testinal spec 1 Ql (Stl) 12.6 g/dL 11.9 - 15.1 g/dL [facility] Interpretation and review of laboratory results Abnormal [employer] [employer] MCH (RBC) [Entitic mass] 27.2 pg 25.2 [...] Hospital WBC (Bld) [#/Vol] 15.0 10*3/uL High [facility] POC Glucose Fingerstickon Glucose [Mass/Vol] 77 mg/dL 65 - 105 mg/dL [facility] POCT urine pregnancyon 05-16 Beta HCG [...] suggested. [facility] [id number] 05-15-2021 SARS-CoV-2 (COVID-19) RNA BECCA+probe Ql (Unsp spec) Normal [facility] Comment on above: Performed By: #### C OVID #### [facility] [employer] [address] [place] [address] Inventory Associate: Anthony Aguilar MD [facility] [address] [place] [address] Inventory Associate: Jameel Lawler MD SARS-CoV-2 (COVID-19) RNA BECCA+probe Ql (Unsp spec) Not detected Normal [facility] Comment on above: Result Comment: The specimen is NEGATIVE for SARS-CoV-2, the novel coronavirus associated with COVID-19. A negative result does not rule out COVID-19. [employer] SARS-CoV-2 for use on the [employer]0/8800 [employer] is a real-time RT-PCR test intended [...] this assay. Fact sheet for Healthcare Providers: https://www.fda.gov/media/724384/download Fact sheet for Patients: https://www.fda.gov/media/721459/download METHODOLOGY: RT-PCR Performed By: #### C OVID #### [employer] [facility] [address] [place], [place] [phone] Inventory Associate: Anthony Aguilar MD [facility] [address] [place] [address] [place] [address] Inventory Associate: Jameel Lawler MD [id number] 05-14-2021 SARS-CoV-2 (COVID-19) RNA BECCA+probe Ql (Unsp spec) .NASOPHARYNGEAL SWAB Normal [facility] Comment on above: Performed By: #### C OVID #### [facility] [address] [place], [place] [id number] Inventory Associate: Anthony Aguilar MD [facility] [address] [place] [address] [place] [address] Inventory Associate: Jameel Lawler MD Nicotine, Bloodon 05-05-2021 3-HT-Gtiusswd <2 ng/mL [facility] Cotinine <2 ng/mL [facility] [...] developed and its performance characteristics determined by [facility]. It has not been cleared or approved by the US Food and Drug Administration. This test was performed in a CLIA certified laboratory and is intended for clinical purposes. Performed By: [facility] [address] [place] [id number] Fluid Dynamicist: Yara Rodriguez MD [employer] EKG 12 LeadOrdered By: Diaz Conway on 05-03-2021 Atrial Rate 72 BPM [employer] Work Phone: P [place] 45 degrees [employer] Phone: P-R Interval 142 ms [employer] Phone: Q-T Interval 376 ms [employer] Work Phone: QRS Duration 100 ms [employer] Phone: QTc Calculation (Bazett) 411 ms [employer] Phone: R [place] 22 degrees [employer] Phone: T [place] 32 degrees [employer] Phone: Ventricular Rate 72 BPM [facility] Work Phone: [employer] Phone: EKG 12 Leadon 05-03-2021 Normal sinus rhythm Normal ECG No previous ECGs available [facility] Diaz Romero MD - 05/03/2021 Normal sinus rhythm Normal ECG No previous ECGs available [employer] Work Phone: APTTon 05-02-2021 aPTT Coag (Bld) [Time] 25.0 s [employer] Comment on above: IV Heparin Therapy Range: 48.6-77.8 Basic Metabolic Panelon 04-11 Anion gap [Moles/Vol] 15 mmol/L 9 - 17 mmol/L [employer] Calcium [Mass/Vol] 9.8 mg/dL 8.6 - 10. 4 mg/dL [employer] Chloride [Moles/Vol] 102 mmol/L 98 - 107 mmol/L [employer] CO2 [Moles/Vol] 21 mmol/L 20 - 31 mmol/L [employer] Creatinine [Mass/Vol] 0.55 mg/dL 0.50 - 0.90 mg/dL [employer] GFR >60 >60 mL/min [employer] GFR Non- >60 >60 mL/min [employer] GFR/1.73 sq M.predicted MDRD (S/P/Bld) [Vol rate/Area] [employer] Comment on above: Average GFR for 20-2 9 years old: 116 mL/min/1.73sq m Chronic Kidney Disease: <60 mL/min/1.73sq m Kidney failure: <15 mL/min/1.73sq m eGFR calculated using average adult body mass. Additional eGFR calculator available at: http://www.[employer].Nagi/multiple_crcl_2011.htm Glucose [Mass/Vol] 85 mg/dL 70 - 99 mg/dL [facility] Potassium [Moles/Vol] 4.5 mmol/L 3.7 - 5.3 mmol/L [employer] Sodium [Moles/Vol] 138 mmol/L 135 - 144 mmol/L [employer] Urea nitrogen (BldV) [Mass/Vol] 11 mg/dL 6 - 20 mg/dL [facility] CBCon 05-02-2021 Hematocrit (Bld) [Volume fraction] 41.0 % 36.3 - 47.1 % [employer] Hemoglobin.gastroin testinal spec 1 Ql (Stl) 12.9 g/dL 11.9 - 15.1 g/dL [facility] MCH (RBC) [Entitic mass] 26.9 pg 25.2 - 33.5 pg [facility] MCHC (RBC) [Mass/Vol] 31.5 g/dL 28.4 - 34.8 g/dL [facility] MCV (RBC) [Entitic vol] 85.6 fL 82.6 - 102.9 fL [facility] NRBC Automated 0.0 0.0 per 100 WBC [facility] Platelet distribution width (Bld) [Ratio] 13.7 % 11.8 - 14.4 % [facility] Platelet mean volume (Bld) [Entitic vol] 9.8 fL 8.1 - 13.5 fL [facility] Platelets (Bld) [#/Vol] 380 10*3/uL [facility] RBC (Bld) [#/Vol] 4.79 10*6/uL 3.95 - 5.1 1 m/uL [facility] WBC (Bld) [#/Vol] 11.2 10*3/uL [facility] No Panel Informationon 05-02 [employer] [facility] Protime-INRon 05-02-2021 INR Coag (Bld) [Relative time] 1.0 {INR} [facility] Comment on above: Therapeutic Range: Moderate Anticoagulant Intensity: INR = 2.0-3.0 High Anticoagulant Intensity: INR = 2.5-3.5 PT Coag (PPP) [Time] 10.6 s [employer] XR CHEST (2 VW)on 05-02-2021 No acute process. RUST RIS CONSOLIDATED EXAMINATION: TWO XRAY VIEWS OF THE CHEST 05/02/2021 11:20 am COMPARISON: None. HISTORY: ORDERING SYSTEM PROVIDED HISTORY: preop, obesity TECHNOLOGIST PROVIDED HISTORY: preop, obesity FINDINGS: Heart is normal in size. Lungs are clear. No free air. RUST RIS CONSOLIDATED Jose Juan Florez Jr. , DO - 05/02/2021 EXAMINATION: TWO XRAY VIEWS OF THE CHEST 05/02/2021 11:20 am COMPARISON: None. HISTORY: ORDERING SYSTEM PROVIDED HISTORY: preop, obesity TECHNOLOGIST PROVIDED HISTORY: preop, obesity FINDINGS: Heart is normal in size. Lungs are clear. No free air. IMPRESSION: No acute process. [employer] Phone: Radiology Study observation (narrative) [employer] Phone: XR CHEST (2 VW)Ordered By: Santos Florez on 05-02-2021 [facility] Phone: [id number] 12-05-2020 SARS-CoV-2 (COVID-19) RNA BECCA+probe Ql (Unsp spec) Normal [facility] Comment on above: Performed By: #### C OVID #### [employer] [address] [place], [place] [id number] Inventory Associate: Anthony Aguilar MD [facility] [address] [place] [address] Inventory Associate: Jameel Lawler MD SARS-CoV-2 (COVID-19) RNA BECCA+probe Ql (Unsp spec) Not detected Normal NOTDET [facility] Comment on above: Result Comment: The specimen is NEGATIVE for SARS-CoV-2, the novel coronavirus associated with COVID-19. A negative result does not rule out COVID-19. Lucrecia SARS-CoV-2 for use on the Lucre[employer]0/8800 Systems is a real-time RT-PCR test intended [...] this assay. Fact sheet for Healthcare Providers: https://www.fda.gov/media/238835/download Fact sheet for Patients: https://www.fda.gov/media/921039/download METHODOLOGY: RT-PCR Performed By: #### C OVID #### [employer] [address] [place], [place] [id number] Inventory Associate: Anthony Aguilar MD [facility] [address] [place] [place] [address] Inventory Associate: Jameel Lawler MD [id number] 12-04-2020 SARS-CoV-2 (COVID-19) RNA BECCA+probe Ql (Unsp spec) .NASOPHARYNGEAL SWAB Normal [facility] Comment on above: Performed By: #### C OVID #### [employer] [address] [place], [place] [id number] Inventory Associate: Anthony Aguilar MD [facility] [address] [place] [place] [address] Inventory Associate: Jameel Lawler MD Vital Signs Date Time Vital Sign Value Performing Clinician Facility 03-19-2023 11:06-0500 Body mass index (BMI) [Ratio] 36.34 kg/m2 Eloise BURROUGHS Work Phone: [facility] 03-19-2023 11:06-0500 Body weight 105.23 kg Eloise BURROUGHS Work Phone: [facility] 03-19-2023 11:06-0500 Diastolic blood pressure 78 mm[Hg] Eloise BURROUGHS Work Phone: [facility] 03-19-2023 11:06-0500 Systolic blood pressure 124 mm[Hg] Eloise BURROUGHS Work Phone: [facility] 03-05-2023 10:48-0500 Body mass index (BMI) [Ratio] 35.08 kg/m2 Karoline Hopson MD Work Phone: [facility] 03-05-2023 10:48-0500 Body weight 101.61 kg Karoline Hopson MD Work Phone: [facility] 03-05-2023 10:48-0500 Diastolic blood pressure 75 mm[Hg] Karoline Hopson MD Work Phone: [facility] 03-05-2023 10:48-0500 Heart rate 89 /min Karoline Hopson MD Work Phone: [facility] 03-05-2023 10:48-0500 Systolic blood pressure 126 mm[Hg] Karoline Hopson MD Work Phone: [facility] 02-07-2023 13:34-0500 Body height 170.2 cm Tatiana Yap MD Work Phone: [facility] 02-07-2023 13:34-0500 Body mass index (BMI) [Ratio] 34.14 kg/m2 Tatiana Yap MD Work Phone: [facility] 02-07-2023 13:34-0500 Body weight 98.88 kg Tatiana Yap MD Work Phone: [facility] 02-07-2023 13:34-0500 Diastolic blood pressure 83 mm[Hg] Tatiana Yap MD Work Phone: [facility] 02-07-2023 13:34-0500 Heart rate 76 /min Tatiana [facility]ap MD [facility] 02-07-2023 13:34-0500 Systolic blood pressure 126 mm[Hg] Tatiana Yap MD Work Phone: [facility] 10-12-2022 10:10-0400 Body height 170.18 cm Lilia Daugherty Other [facility] Other 10-12-2022 10:10-0400 Body mass index (BMI) [Ratio] 32.86 kg/m2 Lilia Daugherty Other [facility] Other 10-12-2022 10:10-0400 Body temperature 99 [degF] Lilia Daugherty Other [facility] Other 10-12-2022 10:10-0400 Body weight 95.17 kg Lilia Daugherty Other [facility] Other 10-12-2022 10:10-0400 Diastolic blood pressure 74 mm[Hg] Lilia Daugherty Other [facility] Other 10-12-2022 10:10-0400 SaO2% (BldA) [Mass fraction] 98 % Lilia Daugherty Other [facility] Other 10-12-2022 10:10-0400 Systolic blood pressure 118 mm[Hg] Lilia Daugherty Other [facility] Other 05-17-2021 15:52-0400 Body temperature 98.49 [degF] Patricia Mars Narus Work Phone: [employer] 05-17-2021 15:52-0400 Diastolic blood pressure 97 mm[Hg] Patricia Mars Narus Work Phone: [employer] 05-17-2021 15:52-0400 Heart rate 70 /min Patricia HuertaCarnival Work Phone: [employer] 05-17-2021 15:52-0400 Respiratory rate 18 /min Patricia Mars Narus Work Phone: [employer] 05-17-2021 15:52-0400 SaO2% (BldA) [Mass fraction] 99 % Patricia Mars Narus Work Phone: [employer] 05-17-2021 15:52-0400 Systolic blood pressure 138 mm[Hg] Patricia aMrs Narus Work Phone: [employer] 05-16-2021 06:06-0400 Body mass index (BMI) [Ratio] 43.16 kg/m2 Patricia Mars Narus Work Phone: [employer] 05-16-2021 06:06-0400 Body weight 125 kg Patricia Mars Narus Work Phone: [employer] 05-16-2021 05:57-0400 Body height 170.2 cm Patricia Mars DO Work Phone: [employer] 05-02-2021 10:35-0400 Body height 170.2 cm Stvz 1 [employer] 05-02-2021 10:35-0400 Body mass index (BMI) [Ratio] 44.95 kg/m2 [facility] 1 [employer] 05-02-2021 10:35-0400 Body temperature 97.2 [degF] Stvz 1 [facility] 05-02-2021 10:35-0400 Body weight 130.18 kg Stvz 1 [employer] 05-02-2021 10:35-0400 Diastolic blood pressure 85 mm[Hg] Stvz 1 [employer] 05-02-2021 10:35-0400 Heart rate 66 /min [facility] 1 [facility] 05-02-2021 10:35-0400 Respiratory rate 18 /min Stv[facility] 1 [employer] 05-02-2021 10:35-0400 SaO2% (BldA) [Mass fraction] 99 % Stvz 1 [employer] 05-02-2021 10:35-0400 Systolic blood pressure 122 mm[Hg] [facility]vz 1 [employer] 12-04-2020 17:00-0400 Body height 170.18 cm Ale Ginty Other [facility] Other 12-04-2020 17:00-0400 Body mass index (BMI) [Ratio] 43.85 kg/m2 Ale Ginty Other [facility] Other 12-04-2020 17:00-0400 Body temperature 97.4 [degF] Ale Ginty Other [facility] Other 12-04-2020 17:00-0400 Body weight 127.01 kg Ale Ginty Other [facility] Other 12-04-2020 17:00-0400 SaO2% (BldA) [Mass fraction] 99 % Ale Ginty Other [facility] [employer] Other Encounters Encounter Date Encounter Type Care Provider Facility Start: 05-28-2023 End: 05-28-2023 ambulatory NIGEL REGALADOO Not Available Start: 05-15-2023 End: 05-15-2023 ambulatory ELOISE DOMINGUEZ Not Available Start: 05-13-2023 End: 05-14-2023 ambulatory KIMMY Snow MACHUCA Not Available Start: 05-01-2023 End: 05-01-2023 ambulatory NIGEL ZACARIAS Not Available Start: 04-10-2023 End: 04-10-2023 ambulatory NIGEL ZACARIAS Not Available Start: 04-09-2023 End: 04-10-2023 ambulatory NIGEL REGALADOO [facility] Start: 03-24-2023 Clinisync Result Encounter [...] Only Laila Castillo RN [facility] at [facility] Comment on above: Hypertension affecti ng in second trimester (Primary Dx); Dichorionic diamniotic twin in second trimester Start: 03-05-2023 End: 03-05-2023 Office outpatient visit 15 minutes Karoline Hopson MD Work Phone: [facility] Comment on above: History of sleeve ga strectomy (Primary Dx); History of induced hypertension Start: 02-27-2023 Orders Only Sivan Martinez RN Ma tern[facility]- Medicine at [facility] Comment on above: Hypertension affecti ng in second trimester; 16 weeks gestation of ; Dichorionic diamniotic twin in second trimester Start: 02-26-2023 End: 02-26-2023 ambulatory NIGEL ZACARIAS Not Available Start: 02-24-2023 Telephone encounter Sangita Thomas RN [facility] [place] Start: 02-07-2023 End: 02-07-2023 ambulatory TATIANA JANEL [facility] Start: 02-07-2023 End: 02-07-2023 Office consultation new/estab patient 60 min Tatiana Yap MD Work Phone: [facility] [place] Comment on above: Hypertension affecti ng in second trimester (Primary Dx); 16 weeks gestation of ; Dichorionic diamniotic twin in second trimester; H/O gastric sleeve Start: 02-05-2023 End: 02-05-2023 ambulatory NIGEL ZACARIAS Not Available Start: 02-05-2023 Chart abstracting Tatiana Yap MD Work Phone: [facility] [place] Start: 02-04-2023 End: 02-04-2023 ambulatory MARGOT G YAW Not Available Start: 01-15-2023 End: 01-15-2023 ambulatory NIGEL ZACARIAS Not Available Start: 01-07-2023 End: 01-07-2023 ambulatory MARGOT G YAW Not Available Start: 12-20-2022 End: 12-21-2022 ambulatory NIGEL ZACARIAS Not Available Start: 10-12-2022 End: 10-12-2022 ambulatory Lilia Daugherty Other [facility] Other Start: 10-12-2022 Office outpatient vi sit 15 minutes Lilia Daugherty [facility] [place] Start: 09-11-2022 End: 09-11-2022 ambulatory PATRICIA Rucker [facility] Start: 02-10-2022 End: 02-10-2022 ambulatory Ale Shields Other [facility] Other Start: 02-10-2022 Telephone encounter Ale Shields [facility] [address] Start: 02-08-2022 End: 02-08-2022 ambulatory Ale Kishor Shields Facility:[facility] Start: 02-08-2022 End: 02-08-2022 ambulatory CIRCUIT BOARD REPAIR TECHNICIAN Ale Shields Work Phone: [facility] Work Phone: Start: 02-08-2022 End: 02-08-2022 Departed Referred CIRCUIT BOARD REPAIR TECHNICIAN Ale Shields Work Phone: [facility] [place] Work Phone: Start: 01-08-2022 End: 01-09-[address] JAMEEL ABEBE Facility:[facility] Start: 12-31-2021 End: 01-01-[address] JAMEEL ABEBE Facility:[facility] Start: 11-28-2021 End: 11-28-2021 ambulatory None Provider Facility:[facility] Start: 11-28-2021 End: 11-29-[address] [...] 05-14-2021 End: 05-19-2021 ambulatory CYN OKEEFE [facility] Start: 05-02-2021 End: 05-06-2021 Subsequent hospital visit by physician Dwight Pat Rm 1 [facility] Pre-Admit Testing Start: 12-04-2020 End: 12-09-2020 ambulatory CYN OKEEFE [facility] Start: 12-04-2020 Office outpatient vi sit 15 minutes Ale Harris [facility] [place] Start: 10-20-2020 End: 10-20-2020 Subsequent hospital visit by physician Patricia Mars DO Work Phone: [facility] [place] Start: 09-06-2020 End: 09-07-2020 [facility]ulatory [facility] Start: 09-06-2020 End: 09-06-2020 Subsequent hospital visit by physician [facility] [address] [facility] Comment on above: LYNN (obstructive sle ep apnea) Start: 05-28-2017 End: 05-29-2017 Ambulatory Neo Anderson Facility:[id number] Procedures Date Procedure Procedure Detail Performing Clinician Start: 03-24-2023 [facility] UA (CLEAN/CATCH) CORK TILE FLOOR LAYER/MICRO IF IND. Nigel Zacarias DO Work Phone: [...] Start: 05-02-2021 Assay of nicotine Sim Rucker [employer] Work Phone: Start: 05-02-2021 Basic metabolic pane l calcium total Patricia Mars DO Work Phone: Start: 05-02-2021 Radiologic exam ches t 2 views Patricia Mars DO Work Phone: Start: 05-02-2021 Ecg routine ecg w/le ast 12 lds i&r only Patricia Mars [facility] Work Phone: Start: 06-14-2020 Microscopic observat ion [Identifier] in Cervix by Cyto stain Tatiana Yap MD Work Phone: Plan of Treatment Date Care Activity Detail Author Start: 03-05-2024 Adult BMI Screening Adult BMI Screen ing [place] Start: 03-05-2024 Tobacco Screening Tobacco Screening [place] Start: 03-05-2024 End: 03-05-2024 US MFM with or without consult US MFM with or without consult Imaging Routine Hypertension affecting in second trimester Dichorionic diamniotic twin in second trimester Expected: 03/05/2024 (Approximate), Expires: 03/05/2024 [employer] Work Phone: Comment on above: Expected: 03/05/2024 (Approximate), Expires: 03/05/2024 Start: 02-08-2024 Adult BMI Screening Adult BMI Screen ing [place] Start: 02-08-2024 Tobacco Screening Tobacco Screening [facility] Start: 01-04-2024 Adult BMI Screening Adult BMI Screen ing [facility] Start: 01-04-2024 Tobacco Screening Tobacco Screening [facility] Start: 08-11-2023 DTaP,Tdap and Td Vaccines (7 - Td or Tdap) DTaP,Tdap and Td Vaccines (7 - Td or Tdap) [facility] Start: 08-11-2023 DTaP/Tdap/Td vaccine (7 - Td or Tdap) DTaP/Tdap/Td vaccine (7 - Td or Tdap) [facility] Start: 08-10-2023 Influenza vaccination Influenza Vacc ine (#1) [facility] Comment on above: Postponed from 10/11 (Patient Refused) Start: 06-15-2023 Screening for malign ant neoplasm of cervix Pap Smear [facility] Start: 04-10-2023 End: 04-10-2023 Patient encounter procedure [facility] [place] Start: 03-19-2023 End: 03-19-2024 CBC panel - Blood by Automated count CBC Lab Routine Diabetes mellitus screening Expected: 03/19/2023 (Approximate), Expires: 03/19/2024 [facility] Work Phone: Comment on above: Expected: 03/19/2023 (Approximate), Expires: 03/19/2024 Start: 03-19-2023 End: 03-19-2024 Measurement of glucose 1 hour after glucose challenge for glucose tolerance test Glucose tolerance, 1 hour Lab Routine Diabetes mellitus screening Expected: 03/19/2023 (Approximate), Expires: 03/19/2024 [facility] Comment on above: Expected: 03/19/2023 (Approximate), Expires: 03/19/2024 Start: 03-05-2023 End: 03-05-2023 Patient encounter procedure 03/05/2023 11:30 AM EST Office Visit Maternal- Medicine at [facility] [address] [place] [address] Karoline Hopson MD [address] [place] [address] [facility] at [facility] Start: 03-05-2023 End: 03-05-2023 Patient encounter procedure 03/05/2023 9:30 AM EST Appointment [facility] [address] [place] [address] [facility] Start: 02-07-2023 End: 02-07-2023 Patient encounter procedure [facility] [place] Start: 10-11-2022 Influenza vaccination Influenza Vacc ine [facility] Start: 09-19-2022 Adult BMI Follow Up Plan Adult BMI Follow Up Plan [facility] Start: 02-08-2022 Bacteria identified in Urine by Culture Urine Culture [facility] Start: 01-08-2022 Hemoglobin A1c measurement A1C test (Diabetic or Prediabetic) [facility] Start: 10-11-2021 Influenza vaccination Flu vacc ine (Season Ended) [facility] Start: 07-14-2021 Hemoglobin A1c measurement A1C test (Diabetic or Prediabetic) [facility] Work Phone: Start: 06-18-2021 End: 06-18-2021 Patient encounter procedure 06/18/2021 Office Visit Bariatrics Deann Navarro, CIRCUIT BOARD REPAIR TECHNICIAN - SALES BROKER [address] [place] [phone] [facility] Start: 05-24-2021 End: 05-24-2021 Patient encounter procedure 05/24/2021 Office Visit Bariatrics Patricia Mars DO [address] [place] [address] [facility] Start: 05-16-2021 End: 05-16-2021 Admission to same day surgery center 05/16/2021 Surgery IP Unit Patricia Mars DO [address] [place] [address] XI ROBOTIC LAPAROSCOPIC GASTRECTOMY SLEEVE , LIVER BIOPSY, EGD- GI SCHEDULED [facility] Comment on above: XI ROBOTIC LAPAROSCO PIC GASTRECTOMY SLEEVE , LIVER BIOPSY, EGD- GI SCHEDULED Start: 05-16-2021 End: 05-16-2021 Laps gstrc rstrictiv px longitudinal gastrectomy GASTRECTOMY SLEEVE LAPAROSCOPIC ROBOTIC MORBID OBESITY, OBSTRUCTIVE SLEEP APNEA, GERD 05/16/2021 7:[address] [facility] Start: 05-16-2021 Subsequent hospital visit by physician 05/16/2021 Hospital Encounter IP Unit Patricia Mars DO [address] [place] [address] [facility] Start: 05-13-2021 End: 05-13-2021 Patient encounter procedure 05/13/2021 Appointment Pre-Admission Testing [facility] PRE ADMIT Start: 05-10-2021 End: 05-10-2021 Patient encounter procedure 05/10/2021 Office Visit Patricia Islas DO [address] [place] [address] [facility] Start: 11-22-2020 End: 11-22-2020 Nursing evaluation of patient and report 11/22/2020 Nurse Only Bariatrics [facility] Start: 11-06-2020 End: 11-06-2020 Patient encounter procedure [facility] Start: 11-03-2020 End: 11-03-2020 Patient encounter procedure 11/03/2020 Office Visit Deann Brothers, CIRCUIT BOARD REPAIR TECHNICIAN - SALES BROKER [address] [facility] [address] [place] [phone] [facility] Start: 10-11-2020 Influenza vaccination Flu vaccine (# 1) [facility] Start: 09-28-2020 End: 09-28-2020 Patient encounter procedure 09/28/2020 Office Visit Deann Brothers, CIRCUIT BOARD REPAIR TECHNICIAN - SALES BROKER [address] [facility] [facility] [address] [place] [address] [facility] Start: 09-01-2015 Screening for malign ant neoplasm of cervix [facility] Start: 2009 HIV screening HIV screen [facility] Start: 2006 COVID-19 Vaccine (1) COVID-19 Vaccin e (1) [facility] [employer] Work Phone: Start: 2006 Depression Screen Depression Screen [facility] Start: 2006 Depression Screening Depression Scre [facility] Start: 2005 HPV vaccine (1 - 2-d [...] (1 of 2 - 2-dose childhood series) [facility] Start: 1994 Hepatitis C screening Hepatitis C sc [facility] End: 09-06-2020 Baseline Diagnostic Sleep Study Baseline Diagnostic Sleep Study Sleep Center Routine LYNN (obstructive sleep apnea) 1 Occurrences starting 09/06/2020 until 09/06/2020 [facility] [employer] Phone: Comment on above: 1 Occurrences starti ng 09/06/2020 until 09/06/2020 End: 02-08-2024 Calcium [Mass/volume] in Serum or Plasma Calcium Lab Routine 16 weeks gestation of H/O gastric sleeve 1 Occurrences starting 02/07/2023 until 02/08/2024 [facility] Comment on above: 1 Occurrences starti ng 02/07/2023 until 02/08/2024 End: 02-08-2024 CBC panel - Blood by Automated count CBC without diff Lab Routine Hypertension affecting in second trimester 16 weeks gestation of Dichorionic diamniotic twin in second trimester 1 Occurrences starting 02/07/2023 until 02/08/2024 [employer] Work Phone: Comment on above: 1 Occurrences starti ng 02/07/2023 until 02/08/2024 End: 02-08-2024 Comprehensive metabolic 2000 panel - Serum or Plasma Comprehensive metabolic panel Lab Routine Hypertension affecting in second trimester 16 weeks gestation of Dichorionic diamniotic twin in second trimester 1 Occurrences starting 02/07/2023 until 02/08/2024 [facility] Comment on above: 1 Occurrences starti ng 02/07/2023 until 02/08/2024 Continuous pulse oximetry Pulse oximetry, continuous Respiratory Care Routine Every 4hr until discontinued starting 05/16/2021 [employer] Work Phone: Comment on above: Every 4hr until disc ontinued starting 05/16/2021 End: 02-08-2024 Cyanocobalamin vitamin b-12 Vitamin B12 Lab Routine 16 weeks gestation of H/O gastric sleeve 1 Occurrences starting 02/07/2023 until 02/08/2024 [place] Comment on above: 1 Occurrences starti ng 02/07/2023 until 02/08/2024 End: 02-08-2024 ECG 12 lead ECG 12 lead ECG Routine Hypertension affecting in second trimester 16 weeks gestation of Dichorionic diamniotic twin in second trimester 1 Occurrences starting 02/07/2023 until 02/08/2024 [place] Comment on above: 1 Occurrences starti ng 02/07/2023 until 02/08/2024 End: 02-08-2024 Folate Folate Lab Routine 16 weeks gestation of H/O gastric sleeve 1 Occurrences starting 02/07/2023 until 02/08/2024 [place] Comment on above: 1 Occurrences starti ng 02/07/2023 until 02/08/2024 End: 02-08-2024 Iron and TIBC Iron and TIBC Lab Routine 16 weeks gestation of H/O gastric sleeve 1 Occurrences starting 02/07/2023 until 02/08/2024 [place] Comment on above: 1 Occurrences starti ng 02/07/2023 until 02/08/2024 End: 02-08-2024 LDH LDH Lab Routine Hypertension affecting in second trimester 16 weeks gestation of Dichorionic diamniotic twin in second trimester 1 Occurrences starting 02/07/2023 until 02/08/2024 [facility] Comment on above: 1 Occurrences starti ng 02/07/2023 until 02/08/2024 End: 02-08-2024 Natriuretic peptide B [Mass/volume] in Blood B-type natriuretic peptide Lab Routine Hypertension affecting in second trimester 16 weeks gestation of Dichorionic diamniotic twin in second trimester 1 Occurrences starting 02/07/2023 until 02/08/2024 [employer] [facility] Comment on above: 1 Occurrences starti ng 02/07/2023 until 02/08/2024 Oxygen therapy [[facility] Data Set] Initiate Oxygen Therapy Protocol Respiratory Care Routine As Needed until discontinued starting 05/16/2021 [employer] Phone: Comment on above: As Needed until disc ontinued starting 05/16/2021 End: 02-08-2024 Protein creat ratio Protein creat ratio Lab Routine Hypertension affecting in second trimester 16 weeks gestation of Dichorionic diamniotic twin in second trimester 1 Occurrences starting 02/07/2023 until 02/08/2024 [employer] Comment on above: 1 Occurrences starti ng 02/07/2023 until 02/08/2024 End: 02-08-2024 Protein, urine, 24 hour Protein, urine, 24 hour Lab Routine Hypertension affecting in second trimester 16 weeks gestation of Dichorionic diamniotic twin in second trimester 1 Occurrences starting 02/07/2023 until 02/08/2024 [employer] Comment on above: 1 Occurrences starti ng 02/07/2023 until 02/08/2024 Spirometry panel Incentive isiah metry Respiratory Care Routine Every 2hr while awake until discontinued starting 05/16/2021 [employer] Phone: Comment on above: Every 2hr while awak e until discontinued starting 05/16/2021 Surgical Pathology Surgical Path ology Lab Routine Release Upon Ordering for 1 Occurrences starting 05/16/2021 [employer] Phone: Comment on above: Release Upon Orderin g for 1 Occurrences starting 05/16/2021 End: 02-08-2024 Thiamin Vitamin B1, whole blood Thiamin Vitamin B1, whole blood Lab Routine 16 weeks gestation of H/O gastric sleeve 1 Occurrences starting 02/07/2023 until 02/08/2024 [facility] Comment on above: 1 Occurrences starti ng 02/07/2023 until 02/08/2024 End: 02-08-2024 Urate [Mass/volume] in Serum or Plasma Uric acid Lab Routine Hypertension affecting in second trimester 16 weeks gestation of Dichorionic diamniotic twin in second trimester 1 Occurrences starting 02/07/2023 until 02/08/2024 [facility] Comment on above: 1 Occurrences starti ng 02/07/2023 until 02/08/2024 End: 02-08-2024 Vitamin D 25 hydroxy Vitamin D 25 hydroxy Lab Routine 16 weeks gestation of H/O gastric sleeve 1 Occurrences starting 02/07/2023 until 02/08/2024 [facility] Comment on above: 1 Occurrences starti ng 02/07/2023 until 02/08/2024 Immunizations Immunization Date Immunization Notes Care Provider [facility] 11-12-2016 tuberculin skin test ; purified protein derivative solution, intradermal Tatiana Yap MD Work Phone: [facility] 08-10-2013 tetanus toxoid, redu yemi diphtheria toxoid, and acellular pertussis vaccine, adsorbed Tatiana Yap MD Work Phone: [facility] 10-03-1999 diphtheria, tetanus toxoids and acellular pertussis vaccine Tatiana Yap MD Work Phone: [facility] 10-03-1999 diphtheria, tetanus toxoids and acellular pertussis vaccine, unspecified formulation Eloise BURROUGHS Work Phone: [facility] 10-03-1999 hepatitis B vaccine, pediatric or pediatric/adolescent dosage Tatiana Yap MD Work Phone: [facility] 10-03-1999 measles, mumps and rubella virus vaccine Tatiana Yap MD Work Phone: [facility] 10-03-1999 poliovirus vaccine, inactivated Tatiana Yap MD Work Phone: [facility] 01-14-1996 diphtheria, tetanus toxoids and acellular pertussis vaccine Tatiana Yap MD Work Phone: [facility] 01-14-1996 diphtheria, tetanus toxoids and pertussis vaccine Eloise BURROUGHS Work Phone: [facility] 01-14-1996 haemophilus influenz ae type b vaccine, conjugate unspecified formulation Tatiana Yap MD Work Phone: [facility] 01-14-1996 measles, mumps and rubella virus vaccine Tatiana Yap MD Work Phone: [facility] 05-21-1995 diphtheria, tetanus toxoids and acellular pertussis vaccine Tatiana Yap MD Work Phone: [facility] 05-21-1995 DTP-Haemophilus influenzae type b conjugate vaccine Eloise BURROUGHS Work Phone: [facility] 05-21-1995 haemophilus influenz ae type b vaccine, conjugate unspecified formulation Tatiana Yap MD Work Phone: [facility] 05-21-1995 poliovirus vaccine, inactivated Tatiana Yap MD Work Phone: [facility] 05-21-1995 trivalent poliovirus vaccine, live, oral Eloise BURROUGHS Work Phone: [facility] 02-21-1995 diphtheria, tetanus toxoids and acellular pertussis vaccine Tatiana Yap MD Work Phone: [facility] 02-21-1995 DTP-Haemophilus influenzae type b conjugate vaccine Eloise BURROUGHS Work Phone: [facility] 02-21-1995 haemophilus influenz ae type b vaccine, conjugate unspecified formulation Tatiana Yap MD Work Phone: [facility] 02-21-1995 hepatitis B vaccine, pediatric or pediatric/adolescent dosage Tatiana Yap MD Work Phone: [facility] 02-21-1995 poliovirus vaccine, inactivated Tatiana Yap MD Work Phone: [facility] 02-21-1995 trivalent poliovirus vaccine, live, oral Eloise BURROUGHS Work Phone: [facility] 1994 diphtheria, tetanus toxoids and acellular pertussis vaccine Tatiana Yap MD Work Phone: [facility] 1994 DTP-Haemophilus influenzae type b conjugate vaccine Eloise BURROUGHS Work Phone: [facility] 1994 haemophilus influenz ae type b vaccine, conjugate unspecified formulation Tatiana Yap MD Work Phone: [facility] 1994 hepatitis B vaccine, pediatric or pediatric/adolescent dosage Tatiana Yap MD Work Phone: [facility] 1994 poliovirus vaccine, inactivated Tatiana Yap MD Work Phone: [facility] 1994 trivalent poliovirus vaccine, live, oral Eloise BURROUGHS Work Phone: [facility] 1994 hepatitis B vaccine, pediatric or pediatric/adolescent dosage Tatiana Yap MD Work Phone: [facility] Payers Date Payer Category Payer Medicaid [id number] 2022 Medicaid [id number] 2022 Self-pay 2019 Unknown [id number] [id number]. [id number] 1994 Unknown [id number] 2.16.840.1.716562.3.579.2. 173 1994 Unknown [id number] 2.16.840.1.423876.3.579.2. 173 1994 Unknown [id number] 2.16.840.1.616402.3.579.2. 173 1994 Unknown [id number] 2.16.840.1.124105.3.579.2. 593 1994 Unknown [id number] 2.16.840.1.950612.3.579.2. 593 1994 Unknown [id number] 2.16.840.1.064504.3.579.2. 593 1994 Unknown [id number] 2.16.840.1.057624.3.579.2. 593 1994 Unknown [id number] 2.16.840.1.978492.3.579.2. 593 1994 Unknown [id number] 2.16.840.1.401688.3.579.2. 593 1994 Unknown [id number] 2.16.840.1.641504.3.579.2. 175 1994 Unknown [id number] 2.16840.1.963038.3.579.2. 1286 1994 Unknown [id number] 2.16840.1.662479.3.579.2. 128 1994 Unknown [id number] 2.16840.1.016725.3.579.2. 128 1994 Unknown [id number] 2.16840.1.285167.3.579.2. 1285 1994 Unknown [id number] 2.16840.1.732018.3.579.2. 128 1994 Unknown [id number] 2.16840.1.735090.3.579.2. 1259 1994 Unknown [id number] 2.16.840.1.600229.3.579.2. 1259 1994 Unknown [id number] 2.16840.1.890327.3.579.2. 1259 1994 Unknown [id number] 2.16.840.1.555336.3.579.2. 1259 1994 Unknown [id number] 2.16840.1.262759.3.579.2. 1259 1994 Unknown [id number] 2.16.840.1.537654.3.579.2. 1258 1994 Unknown [id number] 2.16.840.1.011178.3.579.2. 1258 1994 Unknown [id number] 2.16.840.1.977328.3.579.2. 1258 1994 Unknown [id number] 2.16.840.1.604633.3.579.2. 1258 1994 Unknown [id number] 2.16.840.1.054609.3.579.2. 1258 1994 Unknown [id number] 2.16.840.1.809600.3.579.2. 1258 1994 Unknown [id number] 2.16.840.1.002478.3.579.2. 1259 1959 Private Health Insurance [id number] 1.2.840.980985.1.13.239.2. 7.3.523395.315 Private Health Insurance [facility] [id number] Unknown [id number] 2.16.840.1.795948.3.579.2. 531 Social History Date Type Detail Facility Start: 09-01-2020 End: 09-28-2020 Tobacco smoking status [facility] Current every day smoker [employer] Phone: Start: 09-01-2020 End: 07-03-2022 Cigarettes smoked current (pack per day) - Reported [facility] Start: 09-01-2020 End: 07-03-2022 Tobacco use and exposure Never used [employer] Phone: Start: 09-01-2020 End: 09-28-2020 Alcohol intake Current drinker of alcohol (finding) [employer] Phone: Start: 12-23-2019 Alcohol Comment weekly [employer] Phone: Start: 1995 Sex Assigned At Not on file [employer] Phone: Start: 04-22-2021 End: 05-16-2021 Exposure to SARS-CoV-2 (event) Not sure [employer] Exposure to SARS-CoV -2 (event) Yes [employer] Start: 01-19-2021 End: 07-03-2022 Tobacco smoking status [facility] Ex-smoker [employer] Start: 02-11-2008 End: 11-19-2020 History of tobacco use Current smoker [employer] Phone: Start: 05-02-2021 End: 02-26-2023 Alcohol intake Ex-drinker (finding) [employer] Phone: Start: 08-17-2018 End: 07-03-2022 Sex Assigned At [place] Start: 1995 Sex Assigned At Female [facility] Start: 02-11-2008 End: 02-11-2020 History of tobacco use Cigarette Smoker [facility] History of tobacco use Tobacco U se Types Packs/Day Years Used Date Smoking Tobacco: Former Cigarettes Quit: 2020 Vaping/E-cigarettes Smokeless Tobacco: Former Quit: 11/06/2020 [employer] [facility] Start: 02-05-2023 Tobacco use and exposure Former smokeless tobacco user [employer] [facility] End: 11-06-2020 History of tobacco use User of smokeless tobacco [facility] Frequency of Communication with Friends and Family More than three times a week [facility] Start: 08-17-2018 Education 12 [employer] [facility] Start: 05-18-2022 Alcohol Comment social, every other weekend [employer] [facility] Start: 10-31-2022 [facility] Within the last year , have [...] Comment caffeine: 1-2 cups per day coffee [facility] Clinical Notes 12-04-2020 to 03-19-2023 HEIKE [...] HEIKE Meeks documented in this encounter [facility] 03-05-2023 History of Presen t illness Narrative Headache/epigastric pain/blurry vision/swelling? No Cramping/contractions? No Abnormal vaginal discharge? No Spotting or vaginal bleeding? No Loss of fluid like your water may have broken? No Recent ER visits or hospitalizations? Patient reports visit to [place] approximately two weeks ago to r/o ROM [...] you for allowing me to participate in [facility]. If there are any questions, please do not hesitate to call me. Sincerely, KAROLINE HOPSON MD documented in this encounter [facility] 02-24-2023 Miscellaneous Notes Incoming telephone call from patient with concerns of leakage of fluid. Patient called in and stated that she is Leaking clear fluid and has been. [employer] asked if she had spoken to her OB provider and she said that she had, but they told her that she is basically too early to be leaking any fluid. [employer] recommended patient present to the nearest emergency room to be evaluated. Patient verbalized understanding and had no further questions. documented in this encounter [facility] 02-24-2023 Telephone encounter Note Incoming telephone call from patient with concerns of leakage of fluid. Patient called in and stated that she is Leaking clear fluid and has been. [employer] asked if she had spoken to her OB provider and she said that she had, but they told her that she is basically too early to be leaking any fluid. [employer] recommended patient present to the nearest emergency room to be evaluated. Patient verbalized understanding and had no further questions. [facility] History of Presen t illness [...] TESTS AND ULTRASOUND REPORTS: Referral records and [facility] chart were reviewed Pertinent Ultrasound findings are [...] operators who are performing tests using either [employer] or [employer] systems and is limited to laboratories that [...] repeat. Fact Sheet for Healthcare Providers: https://www.f da.gov/media/326610/download Fact Sheet for Patients: https://www.fda.gov/media/584762 /download HABITS: Patient activity no restrictions, diet [...] a but with an anticipation of excellent prison outcomes. In regards to the spontaneous processes, [...] previously recommended threshold of 160/110. Reference: PMID: 718247562021. Blood pressures do increase as progresses and [...] preeclampsia prevention as is recommended by the [place] [employer] Gyne[employer] Committee Opinion No. 743. Higher doses (150mg) have been studied, but utilized a screening strategy that is not widely performed in the [place] (serum analytes and uterine artery Doppler), limiting the generalizability of the findings. We discussed the safety profile of nifedipine when used to treat chronic hypertension in , and patient information handout provided to her today: https://[employer] Koketa.org/fact-sh eets/nifedipine/pdf/ We discussed the safety profile of beta blockers when used to treat chronic hypertension in : https://[employer].org/fact-sh eets/labetalol/pdf/ Bariatric Surgery S/p Bariatric surgery It [...] aspirin vs 10.3% no aspirin, p=0.45) (PMBID: 16054231). Given well-established benefits baby aspirin for the prevention of preeclampsia, I recommend initiating baby aspirin even in the setting of history of Joe-en-Y surgery. Micronutrient Dosing Recommendations: Calcium: recommend 1000-1200mg daily; if deficient, recommend 1800-53244 mg PO daily in divided doses Vitamin [...] patient is in complete care of her supervisor telephone information. Patient does have ultrasound and office visit [...] procedures Referring and communicating with other health animal care supervisor (not separately reported) Documenting clinical information in the electronic or other health record Tatiana Yap MD Maternal- Medicine [facility] [address] [place] [address] [facility], the CDC, and other organizations representing maternal and public health professionals recommend that , , and lactating people and those considering receive the COVID-19 vaccination. Vaccination is the best method to reduce maternal and complications of SARS-CoV-2 infection. This document was created with [employer] technology. Though I make every effort to review the dictation as it is transcribed, on occasion the spoken word can be misinterpreted by the technology leading to inappropriate words, phrases, or sentences. This note is addressed to the requesting provider as a consultation for clinical guidance. Specific medical abbreviations are occasionally used and those are generally approved by the [place]?Board of?Obstetrics and?Gynecology?as well as?Maddison hodgson abbreviations. The above plan of care was based solely on the diagnoses for which a consultation was requested. ?More frequent testing may be indicated based on her other medical/obstetrical conditions. The management of other or medical conditions is beyond the scope of requested consultation and will continue to be followed by the primary supervisor telephone information or primary care provider. Note to patient: [...] of the practitioner. documented in this encounter [facility] 10-12-2022 Evaluation note Encounter Date Diagnosis Assessment [...] take Sudafed and/or Mucinex for congestion. Take rioe-ypa-cxyiu er Robitussin or Delsym for cough. Follow-up with your family physician if no improvement in 2 to 3 days. Off work tomorrow. Oct, Cough (ICD-10 - R05.9) Oct, Bronchitis (ICD-10 - J40) Acute bronchitis material was printed [employer] Other 10-19-2022 NotePatient Education Materials [id number] History of Present illness Narrative* Payal Richardson [...] and patient voices understanding [facility]: [phone]) 937-930204-07-2022 Hospital Discharge instructions* Instructions* Hannah Zavaleta RN - 05/17/2021 Discharge Instructions for Bariatric Surgery You had a Laparoscopic Sleeve Gastrectomy (56930) surgery to treat obesity. Recovery from this [...] scheduled appointment, please call the office at [phone]. Call Your Doctor If Any of the [...] (Blood Thinner) Shot (Peruvian) documented in this [facility]: 1(419) 136-540003-23-2022 Hospital Discharge instructions* Instructions* Kendal Wilhelm APRN [...] Day of Surgery/Procedure As a patient at [facility] you can expect quality medical and nursing care that is centered on your individual needs. Our goal is to make your surgical experience as comfortableas possible Directions to the Surgery Center The surgery Center at [facility] is located in the Emergency Room parking lot on [facility] or there is additional parking across the street. The address is [address] [place] [address]. Please check in at the Surgery Center [...] on the day of surgery please contact [phone] or [phone] If you have any other questions regarding your procedure/surgery please call your surgeon's office. documented in this [facility]: [phone]) 964-487203-23-2022 History of Present illness Narrative* Eloise Chi [...] syndrome) Under care of team 05/02/2021 pcp-Dr MelgozaBnedpi-ssuayvp-ptqh visit april 2021 Patient was evaluated in PAT & anesthesia guidelines were applied. NPO guidelines, medication instructions and scheduled arrival time were reviewed with patient. Anesthesia contacted: no Medical or cardiac clearance ordered: no, medical clearance obtained. LAURA Garcia CNP 05/02/21 11:53 AM documented in this [facility] Phone: [phone]) 722-840210-25-2021 Evaluation note* Encounter Date Diagnosis Assessment Notes Treatment Notes Treatment Clinical Notes Nov, Contact with and (suspected) exposure to other viral communicable diseases (ICD-10 - Z20.828) Nov, Viral URI with cough (ICD-10 - J06.9) No COVID test completed at this time. Advised patient that will tx as viral URI. Supportive care as directed, increase fluids and rest, Tylenol/Motrin as directed, rx of [place] and Flonase as directed, cool mist humidifier, [...] Patient care instructions given in writting by [facility] Care At Home document [employer] Other Evaluation note* Diagnosis LYNN (obstructive sleep apnea) Obstructive sleep apnea (adult) (pediatric) documented in this encounter [employer] Phone: evalmtbaye note* Diagnosis S/P laparoscopic sleeve gastrectomy- Primary Post-op pain Other acute postoperative pain documented in this encounter [employer] Phone: evalceeezx noteNo assessment information available [facility] Work Phone: Evaluvdktx noteNo InformationNort Via[employer] Other [employer] note* Diagnosis Hypertension affecting in second trimester- Primary 16 weeks gestation of Dichorionic diamniotic twin in second trimester H/O gastric sleeve documented in this encounter [facility]* Diagnosis Hypertension affecting in second trimester 16 weeks gestation of Dichorionic diamniotic twin in second trimester documented in this encounter [facility]* Diagnosis Hypertension affecting in second trimester- Primary Dichorionic diamniotic twin in second trimester documented [facility] encounter [facility]* Diagnosis History of sleeve gastrectomy- Primary History of induced hypertension documented [facility] this encounter [facility]* Diagnosis Second trimester state, incidental Diabetes mellitus screening Screening for diabetes mellitus [facility] - [facility]* Type Description Date Medical History METABOLIC SYNDROME Medical History SYNCOPE Medical History anxiety Surgical History WISDOM TEETH Surgical History TONSILECTOMY Surgical History ENDOSCOPY AND COLONSCOPY Surgical History C section Hospitalization History see above [employer] Other History general Narrative - Reported* Type Description Date Medical History METABOLIC SYNDROME Medical History SYNCOPE Medical History anxiety Surgical History WISDOM TEETH Surgical History TONSILECTOMY Surgical History ENDOSCOPY AND COLONSCOPY Surgical History C section Surgical History gastric sleeve Hospitalization History see above [employer] Other Hislevj general Narrative - Reported* Type Description Date Medical History METABOLIC SYNDROME Medical History SYNCOPE Medical History anxiety Surgical History WISDOM TEETH Surgical History TONSILECTOMY Surgical History ENDOSCOPY AND COLONSCOPY Surgical History C section Surgical History gastric sleeve Surgical History cholcystectomy 09/10/2022 Hospitalization History see above [employer] Other InstructionsNot on filedocumented in this encounter [...] MORBID OBESITY, OBSTRUCTIVE SLEEP APNEA, GERD Procedures RI LAP, JAY RESTRICT PROC, LONGITUDINAL GASTRECTOMY XI ROBOTIC LAPAROSCOPIC GASTRECTOMY SLEEVE , LIVER BIOPSY, EGD- GI SCHEDULED Patricia Mars, DO [address] [facility] [facility] [address] [place] [address] [employer] [address] [place] [address] Referral ID Status Reason Start Date Expiration Date Visits Re quested Visits Authorized [id number] 1 1 [employer] Phone: Summary Purpose Family History No Family [...] Procedures Referred By Contact Referred To Contact [facility] Diagnoses LYNN (obstructive sleep apnea) Procedures Baseline Diagnostic Sleep Study Ike Moreno MD [address] [address] Specialty Diagnoses / Procedures Referred By Contac t Referred To Contact Diagnoses Hypertension affecting in second trimester 16 weeks gestation of Dichorionic diamniotic twin in second trimester Procedures ECG 12 lead Tatiana Yap MD [address] [place] [address] Referral ID Status Reason Start Date Expiration Date V isits Requested Visits Authorized [id number] Pending Review 02/07/2023 02/07/2024 1 1 Specialty Diagnoses / Procedures Referred By Contac t Referred To Contact Maternal and Medicine Diagnoses Hypertension affecting in second trimester Dichorionic diamniotic twin in second trimester Procedures MFM with or without consult Karoline Hopson MD [address] [place] [address] [facility] Maternal Med [address] [place] [address] Referral ID Status Reason Start Date Expiration Date V isits Requested Visits Authorized [id number] Pending Review 03/05/2023 03/04/2024 1 1 Chief Complaint and Reason for Visit Chief Complaint Dysuria Additional Source Comments INFORMATION SOURCE (unrecogn ized section and content) DATE CREATED AUTHOR 07/31/2017 [facility] DATE CREATED AUTHOR AUTHOR'S ORGANIZ ATION 05/21/2021 Khushbu Landa [facility] DATE CREATED AUTHOR AUTHOR'S ORGANIZ ATION 12/03/2021 [facility] DATE CREATED AUTHOR AUTHOR'S ORGANIZ ATION 01/12/2022 [facility] DATE CREATED AUTHOR AUTHOR'S ORGANIZ ATION 02/11/2022 [facility] DATE CREATED AUTHOR AUTHOR'S ORGANIZ ATION 09/13/2022 [facility] DATE CREATED AUTHOR AUTHOR'S ORGANIZ ATION 02/09/2023 [facility] DATE CREATED AUTHOR AUTHOR'S ORGANIZ ATION 04/12/2023 [facility] DATE CREATED AUTHOR AUTHOR'S ORGANIZ ATION 05/29/2023 [facility] EPIC Reason for Visit (unrecogniz ed section and content) Status Reason Specialty Diagnoses / Procedures Referred By Contact Referred To Contact [facility] Diagnoses LYNN (obstructive sleep apnea) Procedures Baseline Diagnostic Sleep Study Ike Moreno MD [address] [facility] [address] [place] [address] Status Reason Specialty Diagnoses / Procedures Referre d By Contact Referred To Contact Diagnoses K21.9 GERD E66.9 OBESITY Procedures RI EGD TRANSORAL BIOPSY SINGLE/MULTIPLE EGD BIOPSY Patricia Mars, DO [address] [facility] [address] [place] [address] [facility] Reason Comments twin HX C/S HX gastric sleeve HX PTD Reason Comments Dichorionic Diamniotic Twin Hypertension Reason Comments Routine Visit Care Teams (unrecognized sec tion and content) News Editor Relationship Specialty Start Date End Date Stephane Martin MD [address] [place], [place] [id number] PCP - General 05/17/20 News Editor Relationship Specialty Start Date End Date Stephane Martin MD [address] [place], [place] [id number] PCP - General 05/17/20 Team Status: Inactive Member Role Status Dates Ale Shields APRN Attending Provider Active News Editor Relationship Specialty Start Date End Date Margot Toure DO [address] [place] [address] PCP - General Family Medicine 01/03/23 News Editor Relationship Specialty Start Date End Date Margot Toure DO [address] [place] [address] PCP - General Family Medicine 01/03/23 News Editor Relationship Specialty Start Date End Date Margot Toure DO [address] [place] [address] PCP - General Family Medicine 01/03/23 News Editor Relationship Specialty Start Date End Date Margot Toure DO [address] [place] [address] PCP - General Family Medicine 01/03/23 News Editor Relationship Specialty Start Date End Date Margot Toure DO [address] [place] [address] PCP - General Family Medicine 01/03/23 News Editor Relationship Specialty Start Date End Date Margot Toure DO [address] [place] [address] PCP - General Family Medicine 01/03/23 News Editor Relationship Specialty Start Date End Date Margot Toure DO [address] [place] [address] PCP - General Family Medicine 07/01/22 News Editor Relationship Specialty Start Date End Date Margot Toure DO [address] [place] [address] PCP - General Family Medicine 07/01/22 Ordered [...] (Given - Provider: Sharmin Sam APRN - [facility]) ceFAZolin (ANCEF) 3000 mg in sterile water [...] (NoRateChange - Provider: Sharmin Sam APRN - SCIENTIFIC PROGRAMMER)[id number] (Anesthesia Volume Adjustment - Provider: Sharmin Sam APRN - SCIENTIFIC PROGRAMMER) 1631 (Stopped - Provider: Hannah Zavaleta RN) [...] to back table, 1000 ml. 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 [employer] provides no warranty or guarantee of the accuracy or completeness of information in this document.
[2023-06-05 08:20] VITALS: BP 114/68; PULSE 101
== END 2023-06-05 08:57 | disposition home or self-care (01) ==
LOC: FBCO 07:39 → FBC 08:00
PROVIDERS: Visit Provider Obstetrics & Gynecology
DX: O30.093 Twin pregnancy, unable to determine number of placenta and number of amniotic sacs, third trimester (principal)
CPT/HCPCS: 59025

== ENCOUNTER 2023-06-09 07:21 | Outpatient (OUT) | payer MEDICAID, SELFPAY ==
--- OUTSIDE RECORDS SUMMARY | 2023-06-09 07:27 | XMS_ITS | CCD ---
Author Organization [facility] Care Team Providers Care Transportation Assistant Name Role Phone Neo Anderson Unavailable Unavailable Neo Anderson Unavailable Unavailable Jose Maria Ortega MD, [facility] Primary Care Provider DOC OKEEFE Referring Unavailable JOSE MARIA ORTEGA, STEPHANE Primary Care Unavailtina e DOC OKEEFE Referring Unavailable JOSE MARIA ORTEGA, [facility] Primary Care Unavailabl e IKE MORENO Referring Unavailable JOSE MARIA ORTEGA, [facility] Primary Care Unavailabl e Ale Harris Unavailable [...] Admitting Unavailable Ale Shields Admitting Unavailable Ale Shiedls Attending Unavailable NO FAMILY, PHYSICIAN Primary Care Unavailable Cornelius LAURA Ale Kishor Attending Provider [phone] Cornelius Ale Unavailable PATRICIA MARS Attending Unavailable PATRICIA MARS Admitting Unavailable YAW, MARGOT Primary Care Unavailable Lilia Daugherty Unavailable Yaw DO, Margot G Primary Care Provider YAW, MARGOT G Referring Unavailable YAW, MARGOT G Primary Care Unavailable TATIANA YAP Attending Unavailable YAW, MARGOT G Referring Unavailable YAW, MARGOT G Primary Care Unavailable Yaw DO, Margot G Primary Care Provider [phone] ZACARIASCHRISTIAN MORRISY R Referring Unavailable YAW, MARGOT [...] sources) Ibuprofen; Translations: [IBUPROFEN] Drug Allergy 09-19-2021 [facility] Medications Current Medications Medication Drug Class(es) [...] 30 mg oral tablet (1 source) Uncompetitive E-vixzes-O-aspartate Receptor Antagonist, Sigma-1 Agonist Start: 2020 take 1 tablet by mouth every eight hours [place] DMT 30-30 MG 1 tablet Orally every [...] Iron (2 sources) Iron Active lactobacillus acidophilus [id number] unt / pectin 100 mg oral tablet [...] extended release oral tablet (2 sources) Uncompetitive X-nvsemt-L-asparta te Receptor Antagonist, Sigma-1 Agonist Start: 01-14-2022 [...] Interpretation Reference Range Facility [facility] UA (CLEAN/CATCH) SOAKING PITS SUPERVISOR/LISA RO IF IND.on 03-24-2023 BILIRUBIN URINE Negative NEGATIVE [facility] thcare BLOOD URINE Negative NEGATIVE [facility] re Clarity (U) CLEAR CLEAR [facility] re Color (U) YELLOW YELLOW [facility] Healthcar e GLUCOSE URINE UA Negative NEGATIVE mg/dL [facility] Interpretation and review of laboratory results Abnormal [facility] re Ketones Ql (U) TRACE Abnormal NEGATIVE mg/dL [facility] ealthcare Leukocyte esterase Test strip Ql (U) Negative NEGATIVE [facility] Healthcar e NITRITE URINE Negative NEGATIVE [facility] Health care pH (U) 6.0 [pH] 5.0 - 9.0 [facility] Healthcar e PROTEIN URINE TRACE NEG/TRACE mg/dL [facility] SPECIFIC GRAVITY URINE >=1.030 Abnormal 1.005 - 1.025 [facility] URINE MICROSCOPIC INDICATED NO [facility] UROBILINOGEN URINE 0.2 EU/dL 0.2 - 1.0 EU/dL [facility] e Urinalysis macro (dipstick) panel (U)on 03-19-2023 Bilirubin, UA Negative Negative - 4(70) +++ mg/dL [facility] Blood, UA Negative Negative - 50 Krzysztof/mcL [facility] Clarity, UA Clear [facility] re Color, UA Yellow [facility] Glucose, UA Negative Negative - 1999(110) ++++ mg/dL [facility] Interpretation and review of laboratory results Abnormal [facility] re Ketones, UA Negative Negative - 160(16) ++++ mg/dL [facility] Leukocytes, UA Negative Negative - 500+++ Mckayla/mcL [facility] Nitrite, UA Negative Negative - Positive [facility] pH, UA 6.0 5 - 9 [facility] e Protein, UA Positive Negative - 1999(20) ++++ mg/dL [facility] Spec Grav, UA 1.030 1 - 1.03 [facility] Urobilinogen, UA 0.2 0.2 - 12 mg/dL [facility] Health[facility] e CBC without diffon External Hematocrit Hct 33.7 [facility] Comment on above: See attached External Hemoglobin 10.9 [facility] Comment on above: See attached External MCH 29.0 [facility] alth System Comment on above: See attached External Mchc 32.3 [facility] ealth System Comment on above: See attached External Mcv 89.[address] [facility] He alth System Comment on above: See attached External Mpv 9.7 [facility] System Comment on above: See attached External Platelet Count 268 [facility] Comment on above: See attached External Rbc Count 3.76 [facility] Comment on above: See attached External Rdw 13.4 [facility]th System Comment on above: See attached External Wbc Count 9.5 [facility] Comment on above: See attached [facility] Urine protein creatinine rat ioon 02-27-2023 Protein/Creatinine (U) [Mass ratio] 0.10 mg/g [facility] [employer] [facility] Comment on above: see attached [facility] Ultrasound - Officeon 2022 Radiology Study observation (narrative) [facility] HIV 1&2 AB/AG Screen (P24 AG )on 12-20-2022 HIV 1&2 AB/AG Non-Reactive [facility] Hepatitis B surface antigeno n 12-20-2022 Hepatitis B Surface Antigen Negative [facility] No Panel Informationon 12-20 [facility] Rubella IGG immune statuson 12-20-2022 Rubella immune IgG 1.96 [facility] Syphilis Total(Unknown Syphi lis Status)on 12-20-2022 Syphilis Non-Reactive [facility] Ultrasound - Officeon 2022 SEE SCANNED REPORt MANUAL LY TRANSCRIBED RESULTS [facility] COVID + FLU Quick Testingon 10-12-2022 SARS-CoV-2 (COVID-19) RNA BECCA+probe Ql (Unsp spec) negtaive [employer] [facility] Other COVID + FLU Quick Testing Negative [employer] [facility] Other Basic Metabolic Profon 09-11 Anion gap [Moles/Vol] 9 mmol/L Normal 9-17 [facility] Comment on above: Performed By: #### B FIFI, CBC, PT #### [employer] [address] [place] [address] [employer] [facility]: Anthony Aguilar MD Calcium [Mass/Vol] 8.8 mg/dL Normal 8.6-10.4 [facility] Comment on above: Performed By: #### B MP, CBC, PT #### [employer] [address] [place] [address] [employer] [facility]: Anthony Aguilar MD Chloride [Moles/Vol] 106 mmol/L Normal 98-107 [facility] Comment on above: Performed By: #### B MP, CBC, PT #### [employer] [address] [place] [address] [employer] [facility]: Anthony Aguilar MD CO2 [Moles/Vol] 23 mmol/L Normal 20-31 [facility] Comment on above: Performed By: #### B MP, CBC, PT #### [facility] [employer] [address] [place] [address] [employer] [facility]: Anthony Aguilar MD Creatinine [Mass/Vol] 0.7 mg/dL Normal 0.5-0.9 [facility] Comment on above: Performed By: #### B MP, CBC, PT #### [facility] [employer] [address] [place] [address] [employer] [facility]: Anthony Aguilar MD GFR/1.73 sq M.predicted among non-blacks MDRD (S/P/Bld) [Vol rate/Area] mL/min/{1.73_m2} Normal >60 [facility] Comment on above: Result Comment: These [...] By: #### B FIFI, CBC, PT #### [facility] [employer] [address] [place] [address] [employer] [facility]: Anthony Aguilar MD Glucose [Mass/Vol] 79 mg/dL Normal 70-99 [facility] Comment on above: Performed By: #### B FIFI, CBC, PT #### [facility] [employer] [address] [place] [address] [employer] [facility]: Anthony Aguilar MD Potassium [Moles/Vol] 4.1 mmol/L Normal 3.7-5.3 [facility] Comment on above: Performed By: #### B MP, CBC, PT #### [facility] [employer] [address] [place] [address] [employer] [facility]: Anthony Aguilar MD Sodium [Moles/Vol] 138 mmol/L Normal 135-144 [facility] Comment on above: Performed By: #### B MP, CBC, PT #### [facility] [employer] [address] [place] [address] [employer] [facility]: Anthony Aguilar MD Urea nitrogen [Mass/Vol] 11 mg/dL Normal 6-20 [facility] Comment on above: Performed By: #### B MP, CBC, PT #### [facility] [employer] [address] [place] [address] [employer] [facility]: Anthony Aguilar MD CBCon 09-11-2022 Erythrocyte distribution width (RBC) [Ratio] 13.2 % Normal 11.8-14.4 [facility] Comment on above: Performed By: #### B MP, CBC, PT #### [facility] [employer] [address] [place] [address] [employer] [facility]: Anthony Aguilar MD Hematocrit (Bld) [Volume fraction] 41.6 % Normal 36.3-47.1 [facility] Comment on above: Performed By: #### B MP, CBC, PT #### [facility] [employer] [address] [place] [address] [employer] [facility]: Anthony Aguilar MD Hemoglobin (Bld) [Mass/Vol] 13.3 g/dL Normal 11.9-15.1 [facility] Comment on above: Performed By: #### B MP, CBC, PT #### [facility] [employer] [address] [place] [address] [employer] [facility]: Anthony Aguilar MD MCH (RBC) [Entitic mass] 28.3 pg Normal 25.2-33.5 [facility] Comment on above: Performed By: #### B MP, CBC, PT #### [facility] [employer] [address] [place] [address] [employer] [facility]: Anthony Aguilar MD MCHC (RBC) [Mass/Vol] 32.0 g/dL Normal 28.4-34.8 [facility] Comment on above: Performed By: #### B MP, CBC, PT #### [address] [address] [employer] [facility]: Anthony Aguilar MD MCV (RBC) [Entitic vol] 88.5 fL Normal 82.6-102.9 [facility] Comment on above: Performed By: #### B MP, CBC, PT #### [address] [address] [employer] [facility]: Anthony Aguilar MD NRBC Automated 0.0 per 100 WBC Normal 0.0 [facility] Comment on above: Performed By: #### B MP, CBC, PT #### [address] [address] [employer] [facility]: Anthony Aguilar MD Platelet mean volume (Bld) [Entitic vol] 9.7 fL Normal 8.1-13.5 [facility] Comment on above: Performed By: #### B MP, CBC, PT #### [address] [address] [employer] [facility]: Anthony Aguilar MD Platelets (Bld) [#/Vol] 276 10*3/uL Normal 138-453 [facility] Comment on above: Performed By: #### B MP, CBC, PT #### [address] [address] [employer] [facility]: Anthony Aguilar MD RBC (Bld) [#/Vol] 4.70 10*6/uL Normal 3.95-5.11 [facility] Comment on above: Performed By: #### B MP, CBC, PT #### [address] [address] [employer] [facility]: Anthony Aguilar MD WBC (Bld) [#/Vol] 7.4 10*3/uL Normal 3.5-11.3 [facility] Comment on above: Performed By: #### B MP, CBC, PT #### [facility] [place], [place] [id number] [employer] [facility]: Anthony Aguilar MD PTon 09-11-2022 INR Coag (PPP) [Relative time] 1.0 {INR} Normal [facility] Comment on above: Result Comment: Therapeutic Range: Moderate Anticoagulant Intensity: INR = 2.0-3.0 High Anticoagulant Intensity: INR = 2.5-3.5 Performed By: #### B MP, CBC, PT #### [facility] [employer] [facility] [place], [place] [id number] [employer] [facility]: Anthony Aguilar MD PT Coag (PPP) [Time] 12.9 s Normal 11.7-14.9 [facility] Comment on above: Performed By: #### B MP, CBC, PT #### [facility] [address] [place] [address] [phone] [employer] [facility]: Anthony Aguilar MD Surgical Pathologyon 023 Surgical Pathology (NOTE) Path Number: [id number] -- Diagnosis -- GALLBLADDER, CHOLECYSTECTOMY: -CHRONIC CHOLECYSTITIS [...] lesions or periductal lymph nodes are identified. Sde sections 1c. tm Microscopic Description Microscopic examination performed. Processing Lab: [address] [address] Interpretation Performed at [address] [address] SURGICAL PATHOLOGY CONSULTATION Patient Name: FINA WALKER [facility] Rec: [id number] [facility] [employer] [facility] ANATOMIC PATHOLOGY [address] [place], [place] [address] Normal [facility] Urine Cultureon 02-08-2022 Bacteria identified Cx Nom (U) Reason for Exam Dysuria Urine ORGANISM: Escherichia coli (O:ESCCOL) [place] Count >100,000 Aerobic LISA Charge (NMIC56) ---- [...] RESISTANT TO ALL B-LACTAM DRUGS. PERFORMED BY: [place] [id number] PATHOLOGIST NOC TECHNICIAN SAMIRA WEN M.D. Normal [facility] Comment on above: Performed By: #### C UU #### [place] [id number] [facility] VC CONSULT FOLLOWUPon 2021 VC CONSULT FOLLOWUP Patient: FINA WALKER Exam Date: 01/08/2022 : 1995 Gender:F Ordering : DR JAMEEL ABEBE M.D. Admission #: [id number] Family : Order #: [id number] CLICK HERE TO VIEW EXAM RADIOLOGY REPORT [...] Hinton M.D. on 01/08/2022 at 10:10 Normal [facility] VC EXT VENOUS RT LIMITEDon 1 03-10-2021 VC EXT VENOUS RT LIMITED Patient: FINA WALKER Exam Date: 01/08/2022 : 1995 Gender:F Ordering : DR JAMEEL ABEBE M.D. Admission #: [id number] Family : Order #: [id number] CLICK HERE TO VIEW EXAM RADIOLOGY REPORT [...] M.D. on 01/08/2022 at 10:[address] [facility] VC ENDOVENOUS ABL 1ST V RTon 12-31-2021 VC ENDOVENOUS ABL 1ST V RT Patient: FINA WALKER Exam Date: 12/31/2021 : 1995 Gender:F Ordering : DR JAMEEL ABEBE M.D. Admission #: [id number] Family : Order #: [id number] CLICK HERE TO VIEW EXAM RADIOLOGY REPORT [...] Abebe MD on 12/31/2021 at 11:06 Normal [facility] ED Clinical Summaryon 2021 ED Clinical Summary [facility] ? Urgent Care [address] [place] [address] Clinical Summary PERSON INFORMATION Name: VERNON WALKER Age: 26 Years Sex: FEMALE : 1995 MRN: Acct#: Visit Reason: OTTERBEIN PHYSICAL Arrival: 11/28/2021 10:39:56 Discharge: 11/28/2021 10:59:00 LOS: 000 00:20 Check In: 11/28/2021 10:39:56 Checkout: 11/28/2021 10:59:00 Address: [address] [place] [address] PCP: Provider, None PROVIDER INFORMATION VITALS INFORMATION Vital Sign Triage Latest Temperature Tympanic Temperature Temporal Artery Pulse Rate O2 Sat Respiratory Rate Blood Pressure / / MEDICAL INFORMATION Medications Given: Allergy Information: No known allergies PHYSICIAN DOCUMENTATION DISCHARGE INFORMATION: Discharge Disposition: Eloped Discharge Location: PATIENT EDUCATION INFORMATION Instructions: Follow-Up: DIAGNOSIS: Patient Understands: Comment: Normal [facility] ED Patient Summaryon 022 ED Patient Summary [facility] ? Urgent Care [address] [place] [address] PATIENT DISCHARGE INSTRUCTIONS Patient Information Name: VERNON WALKER Age: 26 Years Date of : 1995 Reason For Visit: OTTERBEIN PHYSICAL Arrival Time: 11/28/2021 10:39:56 Primary Care Physician: Provider, None Attending Physician: Nuno Bradshaw Comment: Patient Education Medication Information: The exam and treatment you received today in the [facility] Emergency Department were for an urgent problem and are not intended as complete care. It is important for you to follow up with a doctor, nurse practitioner, or physician?s operating room assistant for ongoing care. If your symptoms [...] so we can reach you if necessary. [facility] Emergency Department has provided you with a complete list of medications post discharge. Please inform your livestock breeder/provider of your visit and for further instruction [...] for Disease Control and Prevention October 2013 [facility] VC CONSULT FOLLOWUPon 2021 VC CONSULT FOLLOWUP Patient: FINA WALKER Exam Date: 11/28/2021 : 1995 Gender:F Ordering : DR JAMEEL ABEBE M.D. Admission #: [id number] Family : Order #: [id number] CLICK HERE TO VIEW EXAM RADIOLOGY REPORT [...] Courtney Hinton M.D. on 11/28/2021 at 10:04 [facility] VC EXT VENOUS LT LIMITEDon 1 VC EXT VENOUS LT LIMITED Patient: FINA WALKER Exam Date: 11/28/2021 : 1995 Gender:F Ordering : DR JAMEEL ABEBE M.D. Admission #: [id number] Family : Order #: [id number] CLICK HERE TO VIEW EXAM RADIOLOGY REPORT [...] Hinton M.D. on 11/28/2021 at 09:45 Normal [facility] VC ENDOVENOUS ABL 1ST V LTon 11-22-2021 VC ENDOVENOUS ABL 1ST V LT Patient: FINA WALKER Exam Date: 11/22/2021 : 1995 Gender:F Ordering : DR JAMEEL ABEBE M.D. Admission #: [id number] Family : Order #: [id number] CLICK HERE TO VIEW EXAM RADIOLOGY REPORT PROCEDURE: VEIN CENTER ENDOVENOUS ABLATION FIRST VEIN LEFT GREAT SAPHENOUS VEIN COMPARISON: VC VENOUS REFLUX JOVANA LMT, 10/17/2021. INDICATIONS: Pain co-occurrent and due to varicose veins of bilateral legs I83.813 OPERATIVE REPORT: The risks and benefits of the procedure had been previously discussed, and were rediscussed at length. Informed written consent was obtained by nd and Christopher Zavala assisted. Time out procedure [...] Jameel Abebe MD on 11/22/2021 at 09:04 [facility] VC COMP CONSULTATIONon 10-17 VC COMP CONSULTATION Patient: FINA WALKER Exam Date: 10/17/2021 : 1995 Gender:F Ordering : DR JAMEEL ABEBE M.D. Admission #: [id number] Family : Order #: [id number] CLICK HERE TO VIEW EXAM RADIOLOGY REPORT [...] arterial disease 5. CEAP: C2, EC, AP, ID PLAN: 1. Continued use of compression stockings [...] M.D. on 10/17/2021 at 12:[address] [facility] Basic Metabolic Panelon 04-0 Anion gap [Moles/Vol] 8 mmol/L Low 9 - 17 mmol/L [employer]([facility]) Calcium [Mass/Vol] 8.6 mg/dL 8.6 - 10. 4 mg/dL [employer]([facility]) Chloride [Moles/Vol] 106 mmol/L 98 - 107 mmol/L [employer]([facility]) CO2 [Moles/Vol] 23 mmol/L 20 - 31 mmol/L [employer]([facility]) Creatinine [Mass/Vol] 0.67 mg/dL 0.50 - 0.90 mg/dL [employer]([facility]) GFR >60 >60 mL/min [employer]([facility]) GFR Non- >60 >60 mL/min [employer]([facility]) GFR/1.73 sq M.predicted MDRD (S/P/Bld) [Vol rate/Area] [employer]([facility]) Comment on above: Average GFR for 20-2 9 years old: 116 mL/min/1.73sq m Chronic Kidney Disease: <60 mL/min/1.73sq m Kidney failure: <15 mL/min/1.73sq m eGFR calculated using average adult body mass. Additional eGFR calculator available at: http://www.[employer]/multiple_crcl_2012.htm Glucose [Mass/Vol] 83 mg/dL 70 - 99 mg/dL [facility] [employer] Interpretation and review of laboratory results Abnormal [employer]([facility]) Potassium [Moles/Vol] 3.9 mmol/L 3.7 - 5.3 mmol/L [employer]([facility]) Sodium [Moles/Vol] 137 mmol/L 135 - 144 mmol/L [employer]([facility]) Urea nitrogen (BldV) [Mass/Vol] 7 mg/dL 6 - 20 mg/dL [employer] [facility] CBCon 05-17-2021 Hematocrit (Bld) [Volume fraction] 34.4 % Low 36.3 - 47.1 % [employer]([facility]) Hemoglobin.gastroin testinal spec 1 Ql (Stl) 11.0 g/dL Low 11.9 - 15.1 g/dL [facility] Interpretation and review of laboratory results Abnormal [facility] MCH (RBC) [Entitic mass] 27.2 pg 25.2 - 33.5 pg [facility] MCHC (RBC) [Mass/Vol] 32.0 g/dL 28.4 - 34.8 g/dL [facility] MCV (RBC) [Entitic vol] 85.1 fL 82.6 - 102.9 fL [facility] NRBC Automated 0.0 0.0 per 100 WBC [facility] Platelet distribution width (Bld) [Ratio] 14.1 % 11.8 - 14.4 % [facility] Platelet mean volume (Bld) [Entitic vol] 10.1 fL 8.1 - 13.5 fL [facility] Platelets (Bld) [#/Vol] 302 10*3/uL [facility] RBC (Bld) [#/Vol] 4.04 10*6/uL 3.95 - 5.1 1 m/uL [facility] WBC (Bld) [#/Vol] 13.7 10*3/uL [facility] SURGICAL PATHOLOGY REPORTon 05-17-2021 Surgical Pathology Report [...] x 0.5 cm piece of adipose tissue. Sde sections 1cs. tm Microscopic Description 1 H&E reviewed. Microscopic examination performed. SURGICAL PATHOLOGY CONSULTATION Patient Name: FINA WALKER [facility] Rec: [id number] Path Number: [id number] [facility] [employer] [facility] ANATOMIC PATHOLOGY [address] [place], [place] [address] [facility] [employer] Basic Metabolic Panelon Anion gap [Moles/Vol] 10 mmol/L 9 - 17 mmol/L [facility] [employer] Calcium [Mass/Vol] 8.7 mg/dL 8.6 - 10. 4 mg/dL [facility] [employer] Chloride [Moles/Vol] 105 mmol/L 98 - 107 mmol/L [facility] [employer] CO2 [Moles/Vol] 23 mmol/L 20 - 31 mmol/L [employer] Creatinine [Mass/Vol] 0.75 mg/dL 0.50 - 0.90 mg/dL [employer] GFR >60 >60 mL/min [facility] [employer] GFR Non- >60 >60 mL/min [facility] [employer] GFR/1.73 sq M.predicted MDRD (S/P/Bld) [Vol rate/Area] [facility] Comment on above: Average GFR for 20-2 9 years old: 116 mL/min/1.73sq m Chronic Kidney Disease: <60 mL/min/1.73sq m Kidney failure: <15 mL/min/1.73sq m eGFR calculated using average adult body mass. Additional eGFR calculator available at: http://www.[employer]/multiple_crcl_2011.htm Glucose [Mass/Vol] 132 mg/dL High 70 - 99 mg/dL [facility] [employer] Interpretation and review of laboratory results Abnormal [employer] Potassium [Moles/Vol] 3.5 mmol/L Low 3.7 - 5.3 mmol/L [facility] [employer] Sodium [Moles/Vol] 138 mmol/L 135 - 144 mmol/L [facility] [employer] Urea nitrogen (BldV) [Mass/Vol] 10 mg/dL 6 - 20 mg/dL [facility] CBC without Diffon 2 Hematocrit (Bld) [Volume fraction] 38.8 % 36.3 - 47.1 % [facility] Hemoglobin.gastroin testinal spec 1 Ql (Stl) 12.6 g/dL 11.9 - 15.1 g/dL [facility] Interpretation and review of laboratory results Abnormal [employer] MCH (RBC) [Entitic mass] 27.2 pg 25.2 - 33.5 pg [facility] MCHC (RBC) [Mass/Vol] 32.5 g/dL 28.4 - 34.8 g/dL [facility] MCV (RBC) [Entitic vol] 83.8 fL 82.6 - 102.9 fL [facility] NRBC Automated 0.0 0.0 per 100 WBC [facility] Platelet distribution width (Bld) [Ratio] 13.9 % 11.8 - 14.4 % [facility] Platelet mean volume (Bld) [Entitic vol] 9.8 fL 8.1 - 13.5 fL [facility] Platelets (Bld) [#/Vol] 340 10*3/uL [facility] RBC (Bld) [#/Vol] 4.63 10*6/uL 3.95 - 5.1 1 m/uL [facility] WBC (Bld) [#/Vol] 15.0 10*3/uL [facility] POC Glucose Fingerstickon Glucose [Mass/Vol] 77 mg/dL 65 - 105 mg/dL [facility] POCT urine pregnancyon 05-16 Beta HCG ( test) Ql (U) Negative NEGATIVE [facility] Comment on above: Specimens with hCG l evels near the threshold of the test (25 mIU/mL) may give a negative or indeterminate result. In such cases, another test should be performed with a new specimen in 48-72 hours. If early is suspected clinically in this setting, correlation with quantitative serum b-hCG level is suggested. [facility] [id number] 05-15-2021 SARS-CoV-2 (COVID-19) RNA BECCA+probe Ql (Unsp spec) Normal [facility] Comment on above: Performed By: #### C OVID #### [facility] [address] [place] [address] [facility]: Anthony Aguilar MD [facility] [address] [place] [address] [facility]: Jameel Lawler MD SARS-CoV-2 (COVID-19) RNA BECCA+probe Ql (Unsp spec) Not detected Normal [facility] Comment on above: Result Comment: The specimen is NEGATIVE for SARS-CoV-2, the novel coronavirus associated with COVID-19. A negative result does not rule out COVID-19. [employer] SARS-CoV-2 for use on the [employer]8800 Systems is a real-time RT-PCR test intended [...] this assay. Fact sheet for Healthcare Providers: https://www.fda.gov/media/953241/download Fact sheet for Patients: https://www.fda.gov/media/316064/download METHODOLOGY: RT-PCR Performed By: #### C OVID #### Team My Mobile [facility] [address] [place], [place] [id number] [facility]: Anthony Aguilar MD [facility] [address] [place] [address] [place] [address] [facility] [employer] [facility]: Jameel Lawler MD [id number] 05-14-2021 SARS-CoV-2 (COVID-19) RNA BECCA+probe Ql (Unsp spec) .NASOPHARYNGEAL SWAB Normal [facility] Comment on above: Performed By: #### C OVID #### [facility] [address] [place], [place] [id number] [facility] [employer] [facility]: Anthony Aguilar MD [facility] [address] [place] [address] [place] [address] [facility]: Jameel Lawler MD Nicotine, Bloodon 05-05-2021 1-QG-Systcpvp <2 ng/mL [facility] Cotinine <2 ng/mL [facility] Nicotine <2 ng/mL [facility] Comment on above: (NOTE) Consistent with abstinence [...] developed and its performance characteristics determined by [employer]. It has not been cleared or approved by the US Food and Drug Administration. This test was performed in a CLIA certified laboratory and is intended for clinical purposes. Performed By: [employer] [address] [place] [id number] Curb Supervisor: Yara Rodriguez MD [employer] [facility] [employer] [facility]) EKG 12 LeadOrdered By: Diaz Conway on 05-03-2021 Atrial Rate 72 BPM [employer]([facility]) Work Phone: P Osse[place] 45 degrees [employer] Phone: P-R Interval 142 ms [employer] Phone: Q-T Interval 376 ms [employer]([facility]) Work Phone: QRS Duration 100 ms [employer] Phone: QTc Calculation (Bazett) 411 ms [employer] Phone: R [place] 22 degrees [employer] Phone: T [place] 32 degrees [employer] Phone: Ventricular Rate 72 BPM [employer] Work Phone: [employer] Phone: EKG 12 Leadon 05-03-2021 Normal sinus rhythm Normal ECG No previous ECGs available [facility] Diaz Romero MD - 05/03/2021 Normal sinus rhythm Normal ECG No previous ECGs available [employer]([facility]) Work Phone: APTTon 05-02-2021 aPTT Coag (Bld) [Time] 25.0 s [employer]([facility]) Comment on above: IV Heparin Therapy Range: 48.6-77.8 Basic Metabolic Panelon 04-11 Anion gap [Moles/Vol] 15 mmol/L 9 - 17 mmol/L [employer]([facility]) Calcium [Mass/Vol] 9.8 mg/dL 8.6 - 10. 4 mg/dL [employer]([facility]) Chloride [Moles/Vol] 102 mmol/L 98 - 107 mmol/L [employer]([facility]) CO2 [Moles/Vol] 21 mmol/L 20 - 31 mmol/L [employer]([facility]) Creatinine [Mass/Vol] 0.55 mg/dL 0.50 - 0.90 mg/dL [employer]([facility]) GFR >60 >60 mL/min [employer]([facility]) GFR Non- >60 >60 mL/min [employer]([facility]) GFR/1.73 sq M.predicted MDRD (S/P/Bld) [Vol rate/Area] [employer]([facility]) Comment on above: Average GFR for 20-2 9 years old: 116 mL/min/1.73sq m Chronic Kidney Disease: <60 mL/min/1.73sq m Kidney failure: <15 mL/min/1.73sq m eGFR calculated using average adult body mass. Additional eGFR calculator available at: http://www.[employer]/multiple_crcl_2011.htm Glucose [Mass/Vol] 85 mg/dL 70 - 99 mg/dL [employer] Potassium [Moles/Vol] 4.5 mmol/L 3.7 - 5.3 mmol/L [employer]([facility]) Sodium [Moles/Vol] 138 mmol/L 135 - 144 mmol/L [employer]([facility]) Urea nitrogen (BldV) [Mass/Vol] 11 mg/dL 6 - 20 mg/dL [facility] CBCon 05-02-2021 Hematocrit (Bld) [Volume fraction] 41.0 % 36.3 - 47.1 % [employer]([facility]) Hemoglobin.gastroin testinal spec 1 Ql (Stl) 12.9 g/dL 11.9 - 15.1 g/dL [facility] MCH (RBC) [Entitic mass] 26.9 pg 25.2 - 33.5 pg [facility] MCHC (RBC) [Mass/Vol] 31.5 g/dL 28.4 - 34.8 g/dL [facility] MCV (RBC) [Entitic vol] 85.6 fL 82.6 - 102.9 fL [facility] [employer] NRBC Automated 0.0 0.0 per 100 WBC [facility] [employer] Platelet distribution width (Bld) [Ratio] 13.7 % 11.8 - 14.4 % [facility] [employer] Platelet mean volume (Bld) [Entitic vol] 9.8 fL 8.1 - 13.5 fL [facility] [employer] Platelets (Bld) [#/Vol] 380 10*3/uL [facility] [employer] RBC (Bld) [#/Vol] 4.79 10*6/uL 3.95 - 5.1 1 m/uL [facility] [employer] WBC (Bld) [#/Vol] 11.2 10*3/uL [facility] No Panel Informationon 05-02 [employer] Protime-INRon 05-02-2021 INR Coag (Bld) [Relative time] 1.0 {INR} [facility] [employer] Comment on above: Therapeutic Range: Moderate Anticoagulant Intensity: INR = 2.0-3.0 High Anticoagulant Intensity: INR = 2.5-3.5 PT Coag (PPP) [Time] 10.6 s [employer]([facility]) XR CHEST (2 VW)on 05-02-2021 No acute [...] No free air. IMPRESSION: No acute process. [employer] Phone: Radiology Study observation (narrative) [employer] Phone: XR CHEST (2 VW)Ordered By: Santos Florez on 05-02-2021 [facility] Phone: [id number] 12-05-2020 SARS-CoV-2 (COVID-19) RNA BECCA+probe Ql (Unsp spec) Normal [facility] Comment on above: Performed By: #### C OVID #### [employer] [address] [place], [place] [id number] [facility] [employer] [facility]: Anthony Aguilar MD [facility] [address] [place] [address] [facility] [employer] [facility]: Jameel Lawler MD SARS-CoV-2 (COVID-19) RNA BECCA+probe Ql (Unsp spec) Not detected Normal NOTDET [facility] Comment on above: Result Comment: The specimen is NEGATIVE for SARS-CoV-2, the novel coronavirus associated with COVID-19. A negative result does not rule out COVID-19. Lucrecia SARS-CoV-2 for use on the [employer]ca0/8800 Systems is a real-time RT-PCR test intended [...] this assay. Fact sheet for Healthcare Providers: https://www.fda.gov/media/243481/download Fact sheet for Patients: https://www.fda.gov/media/454327/download METHODOLOGY: RT-PCR Performed By: #### C OVID #### [facility] [address] [place], [place] [id number] [facility] [employer] [facility]: Anthony Aguilar MD [facility] [address] [place] [address] [employer] [employer] [facility]: Jameel Lawler MD [id number] 12-04-2020 SARS-CoV-2 (COVID-19) RNA BECCA+probe Ql (Unsp spec) .NASOPHARYNGEAL SWAB Normal [facility] Comment on above: Performed By: #### C OVID #### [employer] [address] [place], [place] [id number] [facility] [employer] [facility]: Anthony Aguilar MD [facility] [address] [place] [address] [employer] [employer] [facility]: Jameel Lawler MD Vital Signs Date Time Vital Sign Value Performing Clinician Facility 03-19-2023 11:06-0500 Body mass index (BMI) [Ratio] 36.34 kg/m2 Eloise BURROUGHS Work Phone: [facility] 03-19-2023 11:06-0500 Body weight 105.23 kg Eloise BURROUGHS Work Phone: [facility] 03-19-2023 11:06-0500 Diastolic blood pressure 78 mm[Hg] Eloise BURROUGHS Work Phone: [facility] 03-19-2023 11:06-0500 Systolic blood pressure 124 mm[Hg] Eloise BURROUGHS Work Phone: [facility] 03-05-2023 10:48-0500 Body mass index (BMI) [Ratio] 35.08 kg/m2 Karoline Hopson MD Work Phone: [facility] 03-05-2023 10:48-0500 Body weight 101.61 kg Karoline Hopson MD Work Phone: [facility] 03-05-2023 10:48-0500 Diastolic blood pressure 75 mm[Hg] Karoline Hopson MD Work Phone: [facility] 03-05-2023 10:48-0500 Heart rate 89 /min Karoline Hopson MD Work Phone: [facility] [employer] 03-05-2023 10:48-0500 Systolic blood pressure 126 mm[Hg] Karoline Hopson MD Work Phone: [facility] [employer] 02-07-2023 13:34-0500 Body height 170.2 cm Tatiana Yap [facility] 02-07-2023 13:34-0500 Body mass index (BMI) [Ratio] 34.14 kg/m2 Tatiana Yap MD [facility] 02-07-2023 13:34-0500 Body weight 98.88 kg Tatiana Yap MD [facility] 02-07-2023 13:34-0500 Diastolic blood pressure 83 mm[Hg] Tatiana Yap MD [facility] 02-07-2023 13:34-0500 Heart rate 76 /min Tatiana Yap MD [facility] Phone: [facility] 02-07-2023 13:34-0500 Systolic blood pressure 126 mm[Hg] Tatiana Yap MD Work [facility] 10-12-2022 10:10-0400 Body height 170.18 cm Lilia Daugherty Other [employer] Other 10-12-2022 10:10-0400 Body mass index (BMI) [Ratio] 32.86 kg/m2 Lilia Daugherty Other [employer] Other 10-12-2022 10:10-0400 Body temperature 99 [degF] Lilia Daugherty Other [employer] Other 10-12-2022 10:10-0400 Body weight 95.17 kg Lilia Daugherty Other [employer] Other 10-12-2022 10:10-0400 Diastolic blood pressure 74 mm[Hg] Lilia Daugherty Other [employer] Other 10-12-2022 10:10-0400 SaO2% (BldA) [Mass fraction] 98 % Lilia Daugherty Other [employer] Other 10-12-2022 10:10-0400 Systolic blood pressure 118 mm[Hg] Lilia Daugherty Other [employer] Other 05-17-2021 15:52-0400 Body temperature 98.49 [degF] Patricia Mars [employer] Work Phone: [employer] [facility] [employer] [facility]) 05-17-2021 15:52-0400 Diastolic blood pressure 97 mm[Hg] Patricia Mars [employer] Work Phone: [employer] [facility] [employer] [facility]) 05-17-2021 15:52-0400 Heart rate 70 /min Patricia [employer] Work Phone: [employer] [facility] [employer] [facility]) 05-17-2021 15:52-0400 Respiratory rate 18 /min Patricia Mars [employer] Work Phone: [employer] [facility] [employer] [facility]) 05-17-2021 15:52-0400 SaO2% (BldA) [Mass fraction] 99 % Patricia Mars [employer] Work Phone: [employer] [facility] [employer] [facility]) 05-17-2021 15:52-0400 Systolic blood pressure 138 mm[Hg] Patricia Mars [employer] Work Phone: [employer] [facility] [employer] [facility]) 05-16-2021 06:06-0400 Body mass index (BMI) [Ratio] 43.16 kg/m2 Patricia Mars [employer] Work Phone: [employer] [facility] [employer] [facility]) 05-16-2021 06:06-0400 Body weight 125 kg Patricia Mars [employer] Work Phone: [employer] [facility] [employer] [facility]) 05-16-2021 05:57-0400 Body height 170.2 cm Patricia Mars DO Work Phone: [employer] [facility] [employer] [facility]) 05-02-2021 10:35-0400 Body height 170.2 cm Stvz 1 [employer] [facility]) 05-02-2021 10:35-0400 Body mass index (BMI) [Ratio] 44.95 kg/m2 Stvz 1 [employer] [facility]) 05-02-2021 10:35-0400 Body temperature 97.2 [degF] Stvz 1 [employer] [facility] [employer] [facility]) 05-02-2021 10:35-0400 Body weight 130.18 kg Stvz 1 [employer] [facility] [employer] [facility]) 05-02-2021 10:35-0400 Diastolic blood pressure 85 mm[Hg] Stvz 1 [employer] [facility] [employer] [facility]) 05-02-2021 10:35-0400 Heart rate 66 /min Stvz 1 [employer] [facility]) 05-02-2021 10:35-0400 Respiratory rate 18 /min Stvz 1 [employer] [facility]) 05-02-2021 10:35-0400 SaO2% (BldA) [Mass fraction] 99 % Stvz 1 [employer] [facility] [employer] [facility]) 05-02-2021 10:35-0400 Systolic blood pressure 122 mm[Hg] Stvz 1 [employer] [facility]) 12-04-2020 17:00-0400 Body height 170.18 cm Ale Ginty Other [employer] Other 12-04-2020 17:00-0400 Body mass index (BMI) [Ratio] 43.85 kg/m2 Ale Ginty Other [employer] Other 12-04-2020 17:00-0400 Body temperature 97.4 [degF] Ale Ginty Other [employer] Other 12-04-2020 17:00-0400 Body weight 127.01 kg Ale Ginty Other [employer] Other 12-04-2020 17:00-0400 SaO2% (BldA) [Mass fraction] 99 % Ale Ginty Other [facility] [employer] Other Encounters Encounter Date Encounter Type Care Provider Facility Start: 05-28-2023 End: 05-28-2023 ambulatory NIGEL REGALADOO Not Available Start: 05-15-2023 End: 05-15-2023 ambulatory ELOISE DOMINGUEZ Not Available Start: 05-13-2023 End: 05-14-2023 ambulatory KIMMY Snow MACHUCA Not Available Start: 05-01-2023 End: 05-01-2023 ambulatory NIGEL ZACARIAS Not Available Start: 04-10-2023 End: 04-10-2023 ambulatory NIGEL ZACARIAS Not Available Start: 04-09-2023 End: 04-10-2023 ambulatory NIGEL REGALADOO [facility] Start: 03-24-2023 Clinisync Result Encounter Nigel [...] Only Laila Castillo RN [facility] Comment on above: Hypertension affecti ng in second trimester (Primary Dx); Dichorionic diamniotic twin in second trimester Start: 03-05-2023 End: 03-05-2023 Office outpatient visit 15 minutes Karoline Hopson MD Work Phone: [facility] Comment on above: History of sleeve ga strectomy (Primary Dx); History of induced hypertension Start: 02-27-2023 Orders Only Sivan Martinez RN Ma tern[facility]- [facility] at [facility] Comment on above: Hypertension affecti ng in second trimester; 16 weeks gestation of ; Dichorionic diamniotic twin in second trimester Start: 02-26-2023 End: 02-26-2023 ambulatory NIGEL ZACARIAS Not Available Start: 02-24-2023 Telephone encounter Sangita Thomas RN [facility] [place] Start: 02-07-2023 End: 02-07-2023 ambulatory TATIANA JANEL [facility] Start: 02-07-2023 End: 02-07-2023 Office consultation new/estab patient 60 min Tatiana Yap MD Work Phone: [facility] [place] Comment on above: Hypertension affecti ng in second trimester (Primary Dx); 16 weeks gestation of ; Dichorionic diamniotic twin in second trimester; H/O gastric sleeve Start: 02-05-2023 End: 02-05-2023 ambulatory NIGEL ZACARIAS Not Available Start: 02-05-2023 Chart abstracting Tatiana Yap MD Work Phone: [facility] [place] Start: 02-04-2023 End: 02-04-2023 ambulatory MARGOT G YAW Not Available Start: 01-15-2023 End: 01-15-2023 ambulatory NIGEL ZACARIAS Not Available Start: 01-07-2023 End: 01-07-2023 ambulatory MARGOT G YAW Not Available Start: 12-20-2022 End: 12-21-2022 ambulatory NIGEL ZACARIAS Not Available Start: 10-12-2022 End: 10-12-2022 ambulatory Lilia Daugherty Other [employer] Other Start: 10-12-2022 Office outpatient vi sit 15 minutes Lilia Daugherty [facility] [place] Start: 09-11-2022 End: 09-11-2022 ambulatory PATRICIA Rucker [facility] Start: 02-10-2022 End: 02-10-2022 ambulatory Ale Shields Other [employer] Other Start: 02-10-2022 Telephone encounter Ale Shields [facility] [address] Start: 02-08-2022 End: 02-08-2022 ambulatory Ale Kishor Shields Facility:[facility] Start: 02-08-2022 End: 02-08-2022 ambulatory SENIOR TAX SPECIALIST Ale Shields Work Phone: [facility] Work Phone: Start: 02-08-2022 End: 02-08-2022 Departed Referred SENIOR TAX SPECIALIST Ale Shields Work Phone: [facility] [place] Work Phone: Start: 01-08-2022 End: 01-09-[address] JAMEEL ABEBE Facility:[facility] Start: 12-31-2021 End: 01-01-[address] JAMEEL ABEBE Facility:[facility] Start: 11-28-2021 End: 11-28-2021 ambulatory None Provider Facility:[facility] Start: 11-28-2021 End: 11-29-2021 ambulatory [...] 05-14-2021 End: 05-19-2021 ambulatory CYN OKEEFE [facility] Start: 05-02-2021 End: 05-06-2021 Subsequent hospital visit by physician Dwight Pat Rm 1 [facility] Pre-Admit Testing Start: 12-04-2020 End: 12-09-2020 ambulatory CYN OKEEFE [facility] Start: 12-04-2020 Office outpatient vi sit 15 minutes Ale Harris [facility] [place] Start: 10-20-2020 End: 10-20-2020 Subsequent hospital visit by physician Patricia [place] DO Work Phone: [facility] [place] Start: 09-06-2020 End: 09-07-2020 [facility]ulatory [facility] Start: 09-06-2020 End: 09-06-2020 Subsequent hospital visit by physician [facility] Sleep Rm 1 [facility] Comment on above: LYNN (obstructive sle ep apnea) Start: 05-28-2017 End: 05-29-2017 Ambulatory Neo Anderson Facility:[id number] Procedures Date Procedure Procedure Detail Performing Clinician Start: 03-24-2023 [facility] UA (CLEAN/CATCH) SOAKING PITS SUPERVISOR/MICRO IF IND. Nigel Zacarias DO Work Phone: [...] Start: 05-02-2021 Assay of nicotine Sim Rucker [employer] Work Phone: Start: 05-02-2021 Basic metabolic pane l calcium total Patricia Mars DO Work Phone: Start: 05-02-2021 Radiologic exam ches t 2 views Patricia Mars DO Work Phone: Start: 05-02-2021 Ecg routine ecg w/le ast 12 lds i&r only Patricia Mars [employer] Work Phone: Start: 06-14-2020 Microscopic observat ion [Identifier] in Cervix by Cyto stain Tatiana Yap MD Work Phone: Plan of Treatment Date Care Activity Detail Author Start: 03-05-2024 Adult BMI Screening Adult BMI Screen ing [employer] Start: 03-05-2024 Tobacco Screening Tobacco Screening [facility] Start: 03-05-2024 End: 03-05-2024 US MFM with or without consult US MFM with or without consult Imaging Routine Hypertension affecting in second trimester Dichorionic diamniotic twin in second trimester Expected: 03/05/2024 (Approximate), Expires: 03/05/2024 [employer] Work Phone: Comment on above: Expected: 03/05/2024 (Approximate), Expires: 03/05/2024 Start: 02-08-2024 Adult BMI Screening Adult BMI Screen ing [employer] Start: 02-08-2024 Tobacco Screening Tobacco Screening [facility] Start: 01-04-2024 Adult BMI Screening Adult BMI Screen ing [facility] Start: 01-04-2024 Tobacco Screening Tobacco Screening [facility] Start: 08-11-2023 DTaP,Tdap and Td Vaccines (7 - Td or Tdap) DTaP,Tdap and Td Vaccines (7 - Td or Tdap) [facility] Start: 08-11-2023 DTaP/Tdap/Td vaccine (7 - Td or Tdap) DTaP/Tdap/Td vaccine (7 - Td or Tdap) [facility] Start: 08-10-2023 Influenza vaccination Influenza Vacc ine (#1) [facility] Comment on above: Postponed from 10/11 (Patient Refused) Start: 06-15-2023 Screening for malign ant neoplasm of cervix Pap Smear [facility] Start: 04-10-2023 End: 04-10-2023 Patient encounter procedure [facility] [place] Start: 03-19-2023 End: 03-19-2024 CBC panel - Blood by Automated count CBC Lab Routine Diabetes mellitus screening Expected: 03/19/2023 (Approximate), Expires: 03/19/2024 [facility] Work Phone: Comment on above: Expected: 03/19/2023 (Approximate), Expires: 03/19/2024 Start: 03-19-2023 End: 03-19-2024 Measurement of glucose 1 hour after glucose challenge for glucose tolerance test Glucose tolerance, 1 hour Lab Routine Diabetes mellitus screening Expected: 03/19/2023 (Approximate), Expires: 03/19/2024 [facility] Comment on above: Expected: 03/19/2023 (Approximate), Expires: 03/19/2024 Start: 03-05-2023 End: 03-05-2023 Patient encounter procedure 03/05/2023 11:30 AM EST Office Visit [facility] at [facility] [address] [place] [address] Karoline Hopson MD [address] [place] [address] [facility] at [facility] Start: 03-05-2023 End: 03-05-2023 Patient encounter procedure 03/05/2023 9:30 AM EST Appointment [facility] [address] [place] [address] [facility] Start: 02-07-2023 End: 02-07-2023 Patient encounter procedure [facility] [place] Start: 10-11-2022 Influenza vaccination Influenza Vacc ine [facility] Start: 09-19-2022 Adult BMI Follow Up Plan Adult BMI Follow Up Plan [facility] Start: 02-08-2022 Bacteria identified in Urine by Culture Urine Culture [facility] Start: 01-08-2022 Hemoglobin A1c measurement A1C test (Diabetic or Prediabetic) [facility] Start: 10-11-2021 Influenza vaccination Flu vacc ine (Season Ended) [facility] Start: 07-14-2021 Hemoglobin A1c measurement A1C test (Diabetic or Prediabetic) [facility] Work Phone: Start: 06-18-2021 End: 06-18-2021 Patient encounter procedure 06/18/2021 Office Visit Bariatrics Deann Navarro, SENIOR TAX SPECIALIST - CERTIFIED MEDICAL TECHNICIAN [address] [place] [phone] [facility] Start: 05-24-2021 End: 05-24-2021 Patient encounter procedure 05/24/2021 Office Visit Bariatrics Patricia Mars DO [address] [place] [address] [facility] Invasive Bariatric Surg Start: 05-16-2021 End: 05-16-2021 Admission to same day surgery center 05/16/2021 Surgery IP Unit Patricia Mars DO [address] [place] [address] XI ROBOTIC LAPAROSCOPIC GASTRECTOMY SLEEVE [...] Encounter IP Unit Patricia Mars DO [address] [place] [address] [facility] Start: 05-13-2021 End: 05-13-2021 Patient encounter procedure 05/13/2021 Appointment Pre-Admission Testing [facility] PRE ADMIT Start: 05-10-2021 End: 05-10-2021 Patient encounter procedure 05/10/2021 Office Visit Patricia Islas DO [address] [place] [address] [facility] Invasive Bariatric Surg Start: 11-22-2020 End: 11-22-2020 Nursing evaluation of patient and report 11/22/[address] [facility] Invasive Bariatric Surg Start: 11-06-2020 End: 11-06-2020 Patient encounter procedure [facility] Start: 11-03-2020 End: 11-03-2020 Patient encounter procedure 11/03/2020 Office Visit Deann Brothers, SENIOR TAX SPECIALIST - CERTIFIED MEDICAL TECHNICIAN [address] [facility] [address] [place] [phone] [facility] Start: 10-11-2020 Influenza vaccination Flu vaccine (# 1) [facility] Start: 09-28-2020 End: 09-28-2020 Patient encounter procedure 09/28/2020 Office Visit Deann Brothers, SENIOR TAX SPECIALIST - CERTIFIED MEDICAL TECHNICIAN [address] [facility] [address] [place] [address] [facility] Start: 09-01-2015 Screening for malign ant neoplasm of cervix [facility] Start: 2009 HIV screening HIV screen [facility] Start: 2006 COVID-19 Vaccine (1) COVID-19 Vaccin e (1) [facility] [employer] Work Phone: Start: 2006 Depression Screen Depression Screen [facility] Start: 2006 Depression Screening Depression Scre [facility] Start: 2005 HPV vaccine (1 - 2-d ose series) HPV vaccine (1 - 2-dose series) [facility] Start: 2000 Pneumococcal 0-64 ye ars Vaccine (1 of 2 - PPSV23) Pneumococcal 0-64 years Vaccine (1 of 2 - PPSV23) [facility] Work Phone: Start: 09-01-1999 COVID-19 Vaccine (1) COVID-19 Vaccin e (1) [facility] Start: 09-01-1995 Varicella vaccine (1 of 2 - 2-dose childhood series) Varicella vaccine (1 of 2 - 2-dose childhood series) [facility] Start: 1994 Hepatitis C screening Hepatitis C sc [facility] End: 09-06-2020 Baseline Diagnostic Sleep Study Baseline Diagnostic Sleep Study Sleep Center Routine LYNN (obstructive sleep apnea) 1 Occurrences starting 09/06/2020 until 09/06/2020 [facility] [employer] Phone: Comment on above: 1 Occurrences starti ng 09/06/2020 until 09/06/2020 End: 02-08-2024 Calcium [Mass/volume] in Serum or Plasma Calcium Lab Routine 16 weeks gestation of H/O gastric sleeve 1 Occurrences starting 02/07/2023 until 02/08/2024 [employer] Comment on above: 1 Occurrences starti ng 02/07/2023 until 02/08/2024 End: 02-08-2024 CBC panel - Blood by Automated count CBC without diff Lab Routine Hypertension affecting in second trimester 16 weeks gestation of Dichorionic diamniotic twin in second trimester 1 Occurrences starting 02/07/2023 until 02/08/2024 [employer] Work Phone: Comment on above: 1 Occurrences starti ng 02/07/2023 until 02/08/2024 End: 02-08-2024 Comprehensive metabolic 2000 panel - Serum or Plasma Comprehensive metabolic panel Lab Routine Hypertension affecting in second trimester 16 weeks gestation of Dichorionic diamniotic twin in second trimester 1 Occurrences starting 02/07/2023 until 02/08/2024 [employer] Comment on above: 1 Occurrences starti ng 02/07/2023 until 02/08/2024 Continuous pulse oximetry Pulse oximetry, continuous Respiratory Care Routine Every 4hr until discontinued starting 05/16/2021 [employer]([facility]) Work Phone: Comment on above: Every 4hr until disc ontinued starting 05/16/2021 End: 02-08-2024 Cyanocobalamin vitamin b-12 Vitamin B12 Lab Routine 16 weeks gestation of H/O gastric sleeve 1 Occurrences starting 02/07/2023 until 02/08/2024 [employer] Comment on above: 1 Occurrences starti ng 02/07/2023 until 02/08/2024 End: 02-08-2024 ECG 12 lead ECG 12 lead ECG Routine Hypertension affecting in second trimester 16 weeks gestation of Dichorionic diamniotic twin in second trimester 1 Occurrences starting 02/07/2023 until 02/08/2024 [employer] Comment on above: 1 Occurrences starti ng 02/07/2023 until 02/08/2024 End: 02-08-2024 Folate Folate Lab Routine 16 weeks gestation of H/O gastric sleeve 1 Occurrences starting 02/07/2023 until 02/08/2024 [employer] Comment on above: 1 Occurrences starti ng 02/07/2023 until 02/08/2024 End: 02-08-2024 Iron and TIBC Iron and TIBC Lab Routine 16 weeks gestation of H/O gastric sleeve 1 Occurrences starting 02/07/2023 until 02/08/2024 [employer] Comment on above: 1 Occurrences starti ng 02/07/2023 until 02/08/2024 End: 02-08-2024 LDH LDH Lab Routine Hypertension affecting in second trimester 16 weeks gestation of Dichorionic diamniotic twin in second trimester 1 Occurrences starting 02/07/2023 until 02/08/2024 [facility] Comment on above: 1 Occurrences starti ng 02/07/2023 until 02/08/2024 End: 02-08-2024 Natriuretic peptide B [Mass/volume] in Blood B-type natriuretic peptide Lab Routine Hypertension affecting in second trimester 16 weeks gestation of Dichorionic diamniotic twin in second trimester 1 Occurrences starting 02/07/2023 until 02/08/[address] [facility] Comment on above: 1 Occurrences starti ng 02/07/2023 until 02/08/2024 Oxygen therapy [[facility] Data Set] Initiate Oxygen Therapy Protocol Respiratory Care Routine As Needed until discontinued starting 05/16/2021 [employer] Phone: Comment on above: As Needed until disc ontinued starting 05/16/2021 End: 02-08-2024 Protein creat ratio Protein creat ratio Lab Routine Hypertension affecting in second trimester 16 weeks gestation of Dichorionic diamniotic twin in second trimester 1 Occurrences starting 02/07/2023 until 02/08/[address] [facility] Comment on above: 1 Occurrences starti ng 02/07/2023 until 02/08/2024 End: 02-08-2024 Protein, urine, 24 hour Protein, urine, 24 hour Lab Routine Hypertension affecting in second trimester 16 weeks gestation of Dichorionic diamniotic twin in second trimester 1 Occurrences starting 02/07/2023 until 02/08/[address] [facility] Comment on above: 1 Occurrences starti ng 02/07/2023 until 02/08/2024 Spirometry panel Incentive isiah metry Respiratory Care Routine Every 2hr while awake until discontinued starting 05/16/2021 [employer] Phone: Comment on above: Every 2hr while awak e until discontinued starting 05/16/2021 Surgical Pathology Surgical Path ology Lab Routine Release Upon Ordering for 1 Occurrences starting 05/16/2021 [employer] Phone: Comment on above: Release Upon Orderin g for 1 Occurrences starting 05/16/2021 End: 02-08-2024 Thiamin Vitamin B1, whole blood Thiamin Vitamin B1, whole blood Lab Routine 16 weeks gestation of H/O gastric sleeve 1 Occurrences starting 02/07/2023 until 02/08/2024 [facility] Comment on above: 1 Occurrences starti ng 02/07/2023 until 02/08/2024 End: 02-08-2024 Urate [Mass/volume] in Serum or Plasma Uric acid Lab Routine Hypertension affecting in second trimester 16 weeks gestation of Dichorionic diamniotic twin in second trimester 1 Occurrences starting 02/07/2023 until 02/08/2024 [facility] Comment on above: 1 Occurrences starti ng 02/07/2023 until 02/08/2024 End: 02-08-2024 Vitamin D 25 hydroxy Vitamin D 25 hydroxy Lab Routine 16 weeks gestation of H/O gastric sleeve 1 Occurrences starting 02/07/2023 until 02/08/2024 [facility] Comment on above: 1 Occurrences starti ng 02/07/2023 until 02/08/2024 Immunizations Immunization Date Immunization Notes Care Provider [facility] 11-12-2016 tuberculin skin test ; purified protein derivative solution, intradermal Tatiana Yap MD Work Phone: [facility] 08-10-2013 tetanus toxoid, redu yemi diphtheria toxoid, and acellular pertussis vaccine, adsorbed Tatiana Yap MD Work Phone: [facility] 10-03-1999 diphtheria, tetanus toxoids and acellular pertussis vaccine Tatiana Yap MD Work Phone: [facility] 10-03-1999 diphtheria, tetanus toxoids and acellular pertussis vaccine, unspecified formulation Eloise BURROUGHS Work Phone: [facility] 10-03-1999 hepatitis B vaccine, pediatric or pediatric/adolescent dosage Tatiana Yap MD Work Phone: [facility] 10-03-1999 measles, mumps and rubella virus vaccine Tatiana Yap MD Work Phone: [facility] 10-03-1999 poliovirus vaccine, inactivated Tatiana Yap MD Work Phone: [facility] 01-14-1996 diphtheria, tetanus toxoids and acellular pertussis vaccine Tatiana Yap MD Work Phone: [facility] 01-14-1996 diphtheria, tetanus toxoids and pertussis vaccine Eloise BURROUGHS Work Phone: [facility] 01-14-1996 haemophilus influenz ae type b vaccine, conjugate unspecified formulation Tatiana Yap MD Work Phone: [facility] 01-14-1996 measles, mumps and rubella virus vaccine Tatiana Yap MD Work Phone: [facility] 05-21-1995 diphtheria, tetanus toxoids and acellular pertussis vaccine Tatiana Yap MD Work Phone: [facility] 05-21-1995 DTP-Haemophilus influenzae type b conjugate vaccine Eloise BURROUGHS Work Phone: [facility] 05-21-1995 haemophilus influenz ae type b vaccine, conjugate unspecified formulation Tatiana Yap MD Work Phone: [facility] 05-21-1995 poliovirus vaccine, inactivated Tatiana Yap MD Work Phone: [facility] 05-21-1995 trivalent poliovirus vaccine, live, oral Eloise BURROUGHS Work Phone: [facility] 02-21-1995 diphtheria, tetanus toxoids and acellular pertussis vaccine Tatiana Yap MD Work Phone: [facility] 02-21-1995 DTP-Haemophilus influenzae type b conjugate vaccine Eloise BURROUGHS Work Phone: [facility] 02-21-1995 haemophilus influenz ae type b vaccine, conjugate unspecified formulation Tatiana Yap MD Work Phone: [facility] 02-21-1995 hepatitis B vaccine, pediatric or pediatric/adolescent dosage Tatiana Yap MD Work Phone: [facility] 02-21-1995 poliovirus vaccine, inactivated Tatiana Yap MD Work Phone: [facility] 02-21-1995 trivalent poliovirus vaccine, live, oral Eloise BURROUGHS Work Phone: [facility] 1994 diphtheria, tetanus toxoids and acellular pertussis vaccine Tatiana Yap MD Work Phone: [facility] 1994 DTP-Haemophilus influenzae type b conjugate vaccine Eloise BURROUGHS Work Phone: [facility] 1994 haemophilus influenz ae type b vaccine, conjugate unspecified formulation Tatiana Yap MD Work Phone: [facility] 1994 hepatitis B vaccine, pediatric or pediatric/adolescent dosage Tatiana Yap MD Work Phone: [facility] 1994 poliovirus vaccine, inactivated Tatiana Yap MD Work Phone: [facility] 1994 trivalent poliovirus vaccine, live, oral Eloise BURROUGHS Work Phone: [facility] 1994 hepatitis B vaccine, pediatric or pediatric/adolescent dosage Tatiana Yap MD Work Phone: [facility] Payers Date Payer Category Payer Medicaid [id number] 2022 Medicaid [id number] 2022 Self-pay 2019 Unknown [id number] [id number]. [id number] 1994 Unknown [id number] 2.16.840.1.535388.3.579.2. 173 1994 Unknown [id number] 2.16.840.1.184041.3.579.2. 173 1994 Unknown [id number] 2.16.840.1.384644.3.579.2. 173 1994 Unknown [id number] 2.16.840.1.423508.3.579.2. 593 1994 Unknown [id number] 2.16.840.1.944019.3.579.2. 593 1994 Unknown [id number] 2.16.840.1.307435.3.579.2. 593 1994 Unknown [id number] 2.16.840.1.458328.3.579.2. 593 1994 Unknown [id number] 2.16.840.1.040329.3.579.2. 593 1994 Unknown [id number] 2.16.840.1.479979.3.579.2. 593 1994 Unknown [id number] 2.16.840.1.431122.3.579.2. 175 1994 Unknown [id number] 2.16840.1.487505.3.579.2. 1286 1994 Unknown [id number] 2.16840.1.629204.3.579.2. 128 1994 Unknown [id number] 2.16840.1.308640.3.579.2. 128 1994 Unknown [id number] 2.16840.1.212684.3.579.2. 1285 1994 Unknown [id number] 2.16840.1.696444.3.579.2. 128 1994 Unknown [id number] 2.16840.1.782335.3.579.2. 1259 1994 Unknown [id number] 2.16.840.1.000953.3.579.2. 1259 1994 Unknown [id number] 2.16840.1.924559.3.579.2. 1259 1994 Unknown [id number] 2.16.840.1.326238.3.579.2. 1259 1994 Unknown [id number] 2.16840.1.418630.3.579.2. 1259 1994 Unknown [id number] 2.16.840.1.115752.3.579.2. 1258 1994 Unknown [id number] 2.16.840.1.060418.3.579.2. 1258 1994 Unknown [id number] 2.16.840.1.782732.3.579.2. 1258 1994 Unknown [id number] 2.16.840.1.393687.3.579.2. 1258 1994 Unknown [id number] 2.16.840.1.460885.3.579.2. 1258 1994 Unknown [id number] 2.16.840.1.469823.3.579.2. 1258 1994 Unknown [id number] 2.16.840.1.376577.3.579.2. 1259 1959 Private Health Insurance [id number] 1.2.840.955125.1.13.239.2. 7.3.659758.[address] [facility] [id number] Unknown [id number] 2.16.840.1.332051.3.579.2. 531 Social History Date Type Detail Facility Start: 09-01-2020 End: 09-28-2020 Tobacco smoking status [facility] Current every day smoker [employer] Phone: Start: 09-01-2020 End: 07-03-2022 Cigarettes smoked current (pack per day) - Reported [facility] Start: 09-01-2020 End: 07-03-2022 Tobacco use and exposure Never used [employer] Phone: Start: 09-01-2020 End: 09-28-2020 Alcohol intake Current drinker of alcohol (finding) [employer] Phone: Start: 12-23-2019 Alcohol Comment weekly [employer] Phone: Start: 1995 Sex Assigned At Not on file [employer] Phone: Start: 04-22-2021 End: 05-16-2021 Exposure to SARS-CoV-2 (event) Not sure [employer] [facility] [employer] [facility]) Exposure to SARS-CoV -2 (event) Yes [employer] [facility]) Start: 01-19-2021 End: 07-03-2022 Tobacco smoking status [facility] Ex-smoker [employer] [facility] [employer] [facility]) Start: 02-11-2008 End: 11-19-2020 History of tobacco use Current smoker [employer] Phone: Start: 05-02-2021 End: 02-26-2023 Alcohol intake Ex-drinker (finding) [employer] Phone: Start: 08-17-2018 End: 07-03-2022 Sex Assigned At [employer] Start: 1995 Sex Assigned At Female [facility] Start: 02-11-2008 End: 02-11-2020 History of tobacco use Cigarette Smoker [facility] [employer] [facility] History of tobacco use Tobacco U se Types Packs/Day Years Used Date Smoking Tobacco: Former Cigarettes Quit: 2020 Vaping/E-cigarettes Smokeless Tobacco: Former Quit: 11/06/[address] [facility] Start: 02-05-2023 Tobacco use and exposure Former smokeless tobacco [facility] End: 11-06-2020 History of tobacco use User of smokeless tobacco [facility] [employer] [facility] Frequency of Communication with Friends and Family More than three times a week [facility] [employer] [facility] Start: 08-17-2018 Education [address] [facility] Start: 05-18-2022 Alcohol Comment social, every other weekend [facility] Start: 10-31-2022 [facility] Within the last year , have [...] Comment caffeine: 1-2 cups per day coffee [facility] Healthcare Clinical Notes 12-04-2020 to 03-19-2023 HEIKE [...] of: HEIKE Meeks documented in this encounter [facility] 03-05-2023 History of Presen t illness Narrative Headache/epigastric pain/blurry vision/swelling? No Cramping/contractions? No Abnormal vaginal discharge? No Spotting or vaginal bleeding? No Loss of fluid like your water may have broken? No Recent ER visits or hospitalizations? Patient reports visit to [place] approximately two weeks ago to r/o ROM [...] you for allowing [facility]. If there are any questions, please do not hesitate to call me. Sincerely, KAROLINE HOPSON MD documented in this encounter [facility] 02-24-2023 Miscellaneous Notes Incoming telephone call from patient with concerns of leakage of fluid. Patient called in and stated that she is Leaking clear fluid and has been. [employer]ne[employer] asked if she had spoken to her OB provider and she said that she had, but they told her that she is basically too early to be leaking any fluid. [employer] recommended patient present to the nearest emergency room to be evaluated. Patient verbalized understanding and had no further questions. documented in this encounter [facility] 02-24-2023 Telephone encounter Note Incoming telephone call from patient with concerns of leakage of fluid. Patient called in and stated that she is Leaking clear fluid and has been. [employer] asked if she had spoken to her OB provider and she said that she had, but they told her that she is basically too early to be leaking any fluid. [employer] recommended patient present to the nearest emergency room to be evaluated. Patient verbalized understanding and had no further questions. [facility] History of Presen t illness Narrative Headache/epigastric pain/blurry vision/swelling? Occasional headaches Cramping/contractions? No Abnormal vaginal discharge? No Spotting/vaginal bleeding? No Loss of fluid like your water may have broken? No Cats in the home? No Do you change the litter box? No Flu vaccine? No Genetic testing done this here or other office? Yes Have you been seen here at [facility] in a previous ? No Recent ER visits or hospitalizations? No Bring blood sugar log or meter with you today? (Please bring them with you for every visit at [facility]) N/A Traveled outside the country in [...] operators who are performing tests using either [employer] or [employer] systems and is limited to laboratories that [...] repeat. Fact Sheet for Healthcare Providers: https://www.f da.gov/media/912635/download Fact Sheet for Patients: https://www.fda.gov/media/357026 /download HABITS: Patient activity no restrictions, diet [...] a but with an anticipation of excellent skilled nursing outcomes. In regards to the spontaneous processes, [...] previously recommended threshold of 160/110. Reference: PMID: 520993292021. Blood pressures do increase as progresses and [...] preeclampsia prevention as is recommended by the [place] [employer]ne[employer] Committee Opinion No. 743. Higher doses (150mg) have been studied, but utilized a screening strategy that is not widely performed in the [place] (serum analytes and uterine artery Doppler), limiting the generalizability of the findings. We discussed the safety profile of nifedipine when used to treat chronic hypertension in , and patient information handout provided to her today: https://motherStonehenge Gardens[employer].org/fact-sh eets/nifedipine/pdf/ We discussed the safety profile of beta blockers when used to treat chronic hypertension in : https://motherStonehenge Gardens[employer].org/fact-sh eets/labetalol/pdf/ Bariatric Surgery S/p Bariatric surgery It [...] aspirin vs 10.3% no aspirin, p=0.45) (PMBID: [id number]). Given well-established benefits baby aspirin for the prevention of preeclampsia, I recommend initiating baby aspirin even in the setting of history of Joe-en-Y surgery. Micronutrient Dosing Recommendations: Calcium: recommend 1000-1200mg daily; if deficient, recommend 1800-20458 mg PO daily in divided doses Vitamin [...] sooner if clinically indicated Follow up in [facility] in 4 weeks for anatomy and clinic follow-up DISPOSITION: At this point the patient is in complete care of her vp of technology. Patient does have ultrasound and office visit [...] procedures Referring and communicating with other health care manager (not separately reported) Documenting clinical information in the electronic or other health record Tatiana Yap MD Maternal- Medicine [facility] [address] [place] [address] [facility], the CDC, and other organizations representing maternal and public health professionals recommend that , , and lactating people and those considering receive the COVID-19 vaccination. Vaccination is the best method to reduce maternal and complications of SARS-CoV-2 infection. This document was created with [employer] technology. Though I make every effort to review the dictation as it is transcribed, on occasion the spoken word can be misinterpreted by the technology leading to inappropriate words, phrases, or sentences. This note is addressed to the requesting provider as a consultation for clinical guidance. Specific medical abbreviations are occasionally used and those are generally approved by the [place]?Board of?Obstetrics and?Gynecology?as well as?Maddison hodgson abbreviations. The above plan of care was based solely on the diagnoses for which a consultation was requested. ?More frequent testing may be indicated based on her other medical/obstetrical conditions. The management of other or medical conditions is beyond the scope of requested consultation and will continue to be followed by the primary vp of technology or primary care provider. Note to patient: [...] of the practitioner. documented in this encounter [facility] [employer] 10-12-2022 Evaluation note Encounter Date Diagnosis Assessment [...] take Sudafed and/or Mucinex for congestion. Take tteu-usn-xoohx er Robitussin or Delsym for cough. Follow-up with your family physician if no improvement in 2 to 3 days. Off work tomorrow. Oct, Cough (ICD-10 - R05.9) Oct, Bronchitis (ICD-10 - J40) Acute bronchitis material was printed [employer] Other 10-19-2022 NotePatient Education Materials [facility]s: [id number] History of Present illness Narrative* Payal Richardson [...] and patient voices understanding [facility] Phone: 1(973) 978-714504-07-2022 Hospital Discharge instructions* Instructions* Hannah Zavaleta RN - 05/17/2021 Discharge Instructions for Bariatric Surgery You had a Laparoscopic Sleeve Gastrectomy (76898) surgery to treat obesity. Recovery from this [...] scheduled appointment, please call the office at [phone]. Call Your Doctor If Any of the [...] sent through Care Everywhere. * Enoxaparin (Lovenox) (Swedish) * Video: How to Give Yourself an Anticoagulant (Blood Thinner) Shot (Swedish) documented in this [facility] Phone: [phone]) 123-134503-23-2022 Hospital Discharge instructions* Instructions* Kendal Wilhelm APRN [...] Day of Surgery/Procedure As a patient at [facility] you can expect quality medical and nursing care that is centered on your individual needs. Our goal is to make your surgical experience as comfortableas possible Directions to the Surgery Center The surgery Center at [facility] is located in the Emergency Room parking lot on [facility] or there is additional parking across the street. The address is [address] [place] [address]. Please check in at the Surgery Center [...] on the day of surgery please contact [phone] or [phone] If you have any other questions regarding your procedure/surgery please call your surgeon's office. documented in this [facility] Phone: 1(324) 465-968703-23-2022 History of Present illness Narrative* Eloise Chi [...] syndrome) Under care of team 05/02/2021 pcp-Dr MelgozaXypffi-[id number] visit april 2021 Patient was evaluated in PAT & anesthesia guidelines were applied. NPO guidelines, medication instructions and scheduled arrival time were reviewed with patient. Anesthesia contacted: no Medical or cardiac clearance ordered: no, medical clearance obtained. LAURA Garcia CNP 05/02/21 11:53 AM documented in this [facility] Phone: [phone]) 495-953510-25-2021 Evaluation note* Encounter Date Diagnosis Assessment Notes Treatment Notes Treatment Clinical Notes Nov, Contact with and (suspected) exposure to other viral communicable diseases (ICD-10 - Z20.828) Nov, Viral URI with cough (ICD-10 - J06.9) No COVID test completed at this time. Advised patient that will tx as viral URI. Supportive care as directed, increase fluids and rest, Tylenol/Motrin as directed, rx of [place] and Flonase as directed, cool mist humidifier, [...] Patient care instructions given in writting by [facility] Care At Home document [employer] Other Evaluation note* Diagnosis LYNN (obstructive sleep apnea) Obstructive sleep apnea (adult) (pediatric) documented in this encounter [employer] Phone: evalclildk note* Diagnosis S/P laparoscopic sleeve gastrectomy- Primary Post-op pain Other acute postoperative pain documented in this encounter [employer] Phone: evaletqmqi noteNo assessment information available [place] Work Phone: Evaluffgpe noteNo InformationNort [employer] Other Evaluhtenz note* Diagnosis Hypertension affecting in second trimester- Primary 16 weeks gestation of Dichorionic diamniotic twin in second trimester H/O gastric sleeve [facility] Diagnosis Hypertension affecting in second trimester 16 weeks gestation of Dichorionic diamniotic twin in second trimester [facility] Diagnosis Hypertension affecting in second trimester- Primary Dichorionic diamniotic twin in second trimester [facility]* Diagnosis History of sleeve gastrectomy- Primary History of induced hypertension [facility]* Diagnosis Second trimester state, incidental Diabetes mellitus screening Screening for diabetes mellitus [facility] N[facility] - Reported* Type Description Date Medical History METABOLIC SYNDROME Medical History SYNCOPE Medical History anxiety Surgical History WISDOM TEETH Surgical History TONSILECTOMY Surgical History ENDOSCOPY AND COLONSCOPY Surgical History C section Hospitalization History see above [employer] Other History general Narrative - Reported* Type Description Date Medical History METABOLIC SYNDROME Medical History SYNCOPE Medical History anxiety Surgical History WISDOM TEETH Surgical History TONSILECTOMY Surgical History ENDOSCOPY AND COLONSCOPY Surgical History C section Surgical History gastric sleeve Hospitalization History see above [employer] Other Hisqgcs general Narrative - Reported* Type Description Date Medical History METABOLIC SYNDROME Medical History SYNCOPE Medical History anxiety Surgical History WISDOM TEETH Surgical History TONSILECTOMY Surgical History ENDOSCOPY AND COLONSCOPY Surgical History C section Surgical History gastric sleeve Surgical History cholcystectomy 09/10/2022 Hospitalization History see above [employer] Other InstructionsNot on filedocumented in this encounter [...] MORBID OBESITY, OBSTRUCTIVE SLEEP APNEA, GERD Procedures ID LAP, JAY RESTRICT PROC, LONGITUDINAL GASTRECTOMY XI ROBOTIC LAPAROSCOPIC GASTRECTOMY SLEEVE , LIVER BIOPSY, EGD- GI SCHEDULED Patricia Mars, DO [address] [facility] [address] [place] [address] [employer] [address] [place] [address] Referral ID Status Reason Start Date Expiration Date Visits Re quested Visits Authorized [id number] 1 1 [employer] Phone: Summary Purpose Family History No Family [...] Procedures Referred By Contact Referred To Contact [facility] Diagnoses LYNN (obstructive sleep apnea) Procedures Baseline Diagnostic Sleep Study Ike Moreno MD [address] [address] Specialty Diagnoses / Procedures Referred By Contac t Referred To Contact Diagnoses Hypertension affecting in second trimester 16 weeks gestation of Dichorionic diamniotic twin in second trimester Procedures ECG 12 lead Tatiana Yap MD [address] [place] [address] Referral ID Status Reason Start Date Expiration Date V isits Requested Visits Authorized [id number] Pending Review 02/07/2023 02/07/2024 1 1 Specialty Diagnoses / Procedures Referred By Contac t Referred To Contact Maternal and Medicine Diagnoses Hypertension affecting in second trimester Dichorionic diamniotic twin in second trimester Procedures MFM with or without consult Karoline Hopson MD [address] [place] [address] [facility] Maternal Med [address] [place] [address] Referral ID Status Reason Start Date Expiration Date V isits Requested Visits Authorized [id number] Pending Review 03/05/2023 03/04/2024 1 1 Chief Complaint and Reason for Visit Chief Complaint Dysuria Additional Source Comments INFORMATION SOURCE (unrecogn ized section and content) DATE CREATED AUTHOR 07/31/2017 [facility] DATE CREATED AUTHOR AUTHOR'S ORGANIZ ATION 05/21/[address] [facility] DATE CREATED AUTHOR AUTHOR'S ORGANIZ ATION 12/03/2021 [facility] DATE CREATED AUTHOR AUTHOR'S ORGANIZ ATION 01/12/2022 [facility] DATE CREATED AUTHOR AUTHOR'S ORGANIZ ATION 02/11/2022 [facility] DATE CREATED AUTHOR AUTHOR'S ORGANIZ ATION 09/13/2022 [facility] DATE CREATED AUTHOR AUTHOR'S ORGANIZ ATION 02/09/2023 [facility] DATE CREATED AUTHOR AUTHOR'S ORGANIZ ATION 04/12/2023 [facility] DATE CREATED AUTHOR AUTHOR'S ORGANIZ ATION 05/29/2023 [facility] EPIC Reason for Visit (unrecogniz ed section and content) Status Reason Specialty Diagnoses / Procedures Referred By Contact Referred To Contact [facility] Diagnoses LYNN (obstructive sleep apnea) Procedures Baseline Diagnostic Sleep Study Ike Moreno MD [address] [facility] [address] [place] [address] Status Reason Specialty Diagnoses / Procedures Referre d By Contact Referred To Contact Diagnoses K21.9 GERD E66.9 OBESITY Procedures ID EGD TRANSORAL BIOPSY SINGLE/MULTIPLE EGD BIOPSY Patricia Mars, DO [address] [facility] [address] [place] [address] [facility] Reason Comments twin HX C/S HX gastric sleeve HX PTD Reason Comments Dichorionic Diamniotic Twin Hypertension Reason Comments Routine Visit Care Teams (unrecognized sec tion and content) Transportation Assistant Relationship Specialty Start Date End Date Stephane Martin MD [address] [place], [place] [id number] PCP - General 05/17/20 Transportation Assistant Relationship Specialty Start Date End Date Stephane Martin MD [address] [place], [place] [id number] PCP - General 05/17/20 Team Status: Inactive Member Role Status Dates Ale Shields APRN Attending Provider Active Transportation Assistant Relationship Specialty Start Date End Date Margot Toure DO [address] [place] [address] PCP - General Family Medicine 01/03/23 Transportation Assistant Relationship Specialty Start Date End Date Margot Toure DO [address] [place] [address] PCP - General Family Medicine 01/03/23 Transportation Assistant Relationship Specialty Start Date End Date Margot Toure DO [address] [place] [address] PCP - General Family Medicine 01/03/23 Transportation Assistant Relationship Specialty Start Date End Date Margot Toure DO [address] [place] [address] PCP - General Family Medicine 01/03/23 Transportation Assistant Relationship Specialty Start Date End Date Margot oTure DO [address] [place] [address] PCP - General Family Medicine 01/03/23 Transportation Assistant Relationship Specialty Start Date End Date Margot Toure DO [address] [place] [address] PCP - General Family Medicine 01/03/23 Transportation Assistant Relationship Specialty Start Date End Date Margot Toure DO [address] [place] [address] PCP - General Family Medicine 07/01/22 Transportation Assistant Relationship Specialty Start Date End Date Margot Toure DO [address] [place] [address] PCP - General Family Medicine 07/01/22 Ordered [...] (Given - Provider: Sharmin Sam APRN - [facility]) ceFAZolin (ANCEF) 3000 mg in sterile water 30 mL IV syringe (COMPLETED) 3,000 mg, IntraVENous, EVERY 8 HOURS, 2 doses, First dose (after last reorder) on Fri05/16/21 at 1600, Last dose on Fri05/17/21 at 0000, Antimicrobial Indications: Surgical Prophylaxis, Administer over 5 mins. 1537 (Given - Provider: Hannah Zavaleta RN) 0017 (Given - Provider: Nohemy Undewrood RN) famotidine (PEPCID) 20 mg in sodium [...] (NoRateChange - Provider: Sharmin Sam APRN - [employer])0856 (Anesthesia Volume Adjustment - Provider: Sharmin Sam APRN - [employer]) 1631 (Stopped - Provider: Hannah Zavaleta RN) [...] back table, 1000 ml. for suction director cardiac) sodium chloride flush 0.9 % injection 5-40 [...] BE BASED ON THE PRIMARY CLINICAL RECORDS. [employer] provides no warranty or guarantee of the accuracy or completeness of information in this document.
--- NOTE | 2023-06-09 18:59 | US_ITS ---
[address] [address] Patient Name: JADEN VELÁSQUEZ MRN: [facility]:[id number] date: 1995 Sex: F Assigned Patient Location: [facility] Current Patient Location: Accession/Order Number: [id number] Exam Date: 06/09/2023 19:04 Report Date: 06/10/2023 05:45 At the request of: ODILON ARNETT Procedure: US OB BPP w non-stress EXAMINATION: US OB BPP w non-stress, US OB >= 14 wk fetus add gest HISTORY: DICHORIONIC DIAMNIOTIC TWIN O30.043 COMPARISON: No relevant comparison available. TECHNIQUE: Ultrasound biophysical profile was performed in the radiology department. BREATHING MOVEMENTS: 2.0 / 2.0 GROSS BODY MOVEMENTS: 2.0 / 2.0 TONE: 2.0 / 2.0 QUALITATIVE AMNIOTIC FLUID VOLUME: 2.0 / 2.0 PRESENTATION: BREECH / TRANSVERSE HEART RATE: 132 bpm / 138 bpm. AMNIOTIC FLUID VOLUME: Largest pocket 5.3 x 6.3 cm / 5.8 x 6.0 cm GESTATIONAL AGE: 33 weeks 4 days CONCLUSION: Total biophysical profile score: Baby A 8.0 / Baby B 8.0 Electronically authenticated by: COURTNEY LUGO Date: 06/10/2023 05:45
--- NOTE | 2023-06-09 19:00 | US_ITS ---
[address] [address] Patient Name: JADEN VELÁSQUEZ MRN: [facility]:[id number] date: 1995 Sex: F Assigned Patient Location: [facility] Current Patient Location: Accession/Order Number: [id number] Exam Date: 06/09/2023 19:04 Report Date: 06/10/2023 05:45 At the request of: ODILON ARNETT Procedure: US OB >= 14 wk fetus add gest EXAMINATION: US OB BPP w non-stress, US OB >= 14 wk fetus add gest HISTORY: DICHORIONIC DIAMNIOTIC TWIN O30.043 COMPARISON: No relevant comparison available. TECHNIQUE: Ultrasound biophysical profile was performed in the radiology department. BREATHING MOVEMENTS: 2.0 / 2.0 GROSS BODY MOVEMENTS: 2.0 / 2.0 TONE: 2.0 / 2.0 QUALITATIVE AMNIOTIC FLUID VOLUME: 2.0 / 2.0 PRESENTATION: BREECH / TRANSVERSE HEART RATE: 132 bpm / 138 bpm. AMNIOTIC FLUID VOLUME: Largest pocket 5.3 x 6.3 cm / 5.8 x 6.0 cm GESTATIONAL AGE: 33 weeks 4 days CONCLUSION: Total biophysical profile score: Baby A 8.0 / Baby B 8.0 Electronically authenticated by: COURTNEY LUGO Date: 06/10/2023 05:45
[2023-06-09 19:49] VITALS: TEMP 36.2
[2023-06-09 19:52] VITALS: BP 114/67; PULSE 80
== END 2023-06-09 20:23 | disposition home or self-care (01) ==
LOC: US 18:48 → FBC 18:56
PROVIDERS: Visit Provider Obstetrics & Gynecology
DX: O30.043 Twin pregnancy, dichorionic/diamniotic, third trimester (principal); Z3A.33 33 weeks gestation of pregnancy
CPT/HCPCS: 59025; 76810; 76818

== ENCOUNTER 2023-06-12 06:59 | Outpatient (OUT) | payer MEDICAID, SELFPAY ==
--- OUTSIDE RECORDS SUMMARY | 2023-06-12 07:03 | XMS_ITS | CCD ---
Author Organization [facility] Care Team Providers Care Hand Shaper Name Role Phone Neo Anderson Unavailable Unavailable Neo Anderson Unavailable Unavailable Jose Maria Ortega MD, [facility] Primary Care Provider DOC OKEEFE Referring Unavailable JOSE MARIA ORTEGA, STEPHANE Primary Care Unavailtina e DOC OKEEFE Referring Unavailable JOSE MARIA ORTEGA, [facility] Primary Care Unavailabl e IKE MORENO Referring Unavailable JOSE MARIA ORTEGA, [facility] Primary Care Unavailabl e Ale Harris [...] Unavailable Cornelius LAURA Ale Kishor Attending Provider [phone] Cornelius Ael Unavailable PATRICIA MARS Attending Unavailable PATRICIA MARS Admitting Unavailable YAW, MARGOT Primary Care Unavailable Lilia Daugherty Unavailable Yaw DO, Margot G Primary Care Provider YAW, MARGOT G Referring Unavailable YAW, MARGOT G Primary Care Unavailable TATIANA YAP Attending Unavailable YAW, MARGOT G Referring Unavailable YAW, MARGOT G Primary Care Unavailable Yaw DO, Margot G Primary Care Provider [phone] ZACARIASCHRISTIAN MORRISY R Referring Unavailable YAW, MARGOT G Primary Care Unavailable ZACARIAS, NIGEL R Referring Unavailable YAW, MARGOT G Primary Care Unavailable KAROLNIE HOPSON Attending Unavailable ZACARIAS, NIGEL R Referring [...] 30 mg oral tablet (1 source) Uncompetitive G-idxilv-G-aspartate Receptor Antagonist, Sigma-1 Agonist Start: 2020 take 1 tablet by mouth every eight hours [facility] DMT 30-30 MG 1 tablet Orally every [...] Iron (2 sources) Iron Active lactobacillus acidophilus [id number] unt / pectin 100 mg oral tablet [...] extended release oral tablet (2 sources) Uncompetitive R-moilgw-G-asparta te Receptor Antagonist, Sigma-1 Agonist Start: 01-14-2022 [...] Interpretation Reference Range Facility [facility] UA (CLEAN/CATCH) HOTEL MAINTENANCE ENGINEER/LISA RO IF IND.on 03-24-2023 BILIRUBIN URINE Negative NEGATIVE [facility]care BLOOD URINE Negative NEGATIVE [facility] re Clarity (U) CLEAR CLEAR [facility] Color (U) YELLOW YELLOW [facility] GLUCOSE URINE UA Negative NEGATIVE mg/dL [facility] Interpretation and review of laboratory results Abnormal [facility] Ketones Ql (U) TRACE Abnormal NEGATIVE mg/dL [facility] ealthcare Leukocyte esterase Test strip Ql (U) Negative NEGATIVE [facility] NITRITE URINE Negative NEGATIVE [facility] Health care pH (U) 6.0 [pH] 5.0 - 9.0 [facility] PROTEIN URINE TRACE NEG/TRACE mg/dL [facility] SPECIFIC GRAVITY URINE >=1.030 Abnormal 1.005 - 1.025 [facility] URINE MICROSCOPIC INDICATED NO [facility] UROBILINOGEN URINE 0.2 EU/dL 0.2 - 1.0 EU/dL [facility] Urinalysis macro (dipstick) panel (U)on 03-19-2023 Bilirubin, UA Negative Negative - 4(70) +++ mg/dL [facility] Blood, UA Negative Negative - 50 Krzysztof/mcL [facility] Clarity, UA Clear [facility] re Color, UA Yellow [facility] Glucose, UA Negative Negative - 1999(110) ++++ mg/dL [facility] Interpretation and review of laboratory results Abnormal [facility] re Ketones, UA Negative Negative - 160(16) ++++ mg/dL [facility] Leukocytes, UA Negative Negative - 500+++ Mckayla/mcL [facility] Nitrite, UA Negative Negative - Positive [facility] pH, UA 6.0 5 - 9 [facility] e Protein, UA Positive Negative - 1999(20) ++++ mg/dL [facility] Spec Grav, UA 1.030 1 - 1.03 [facility] Urobilinogen, UA 0.2 0.2 - 12 mg/dL [facility] e CBC without diffon External Hematocrit Hct 33.7 [facility] Comment on above: See attached External Hemoglobin 10.9 [facility] Comment on above: See attached External MCH 29.0 [facility] alth System Comment on above: See attached External Mchc 32.3 [facility] ealth System Comment on above: See attached External Mcv 89.6 [facility] alth System Comment on above: See attached External Mpv 9.7 [facility] System Comment on above: See attached External Platelet Count 268 [facility] Comment on above: See attached External Rbc Count 3.76 [facility] Comment on above: See attached External Rdw 13.4 [facility] System Comment on above: See attached External Wbc Count 9.5 [facility] Comment on above: See attached [facility] Urine protein creatinine rat ioon 02-27-2023 Protein/Creatinine (U) [Mass ratio] 0.10 mg/g [facility] Comment on above: see attached [facility] Ultrasound - Officeon 2022 Radiology Study observation (narrative) [facility] HIV 1&2 AB/AG Screen (P24 AG )on 12-20-2022 HIV 1&2 AB/AG Non-Reactive [facility] Hepatitis B surface antigeno n 12-20-2022 Hepatitis B Surface Antigen Negative [facility] No Panel Informationon 12-20 [facility] Rubella IGG immune statuson 12-20-2022 Rubella immune IgG 1.96 [facility] Syphilis Total(Unknown Syphi lis Status)on 12-20-2022 Syphilis Non-Reactive [facility] Ultrasound - Officeon 2022 SEE SCANNED REPORt MANUAL LY TRANSCRIBED RESULTS [facility] COVID + FLU Quick Testingon 10-12-2022 SARS-CoV-2 (COVID-19) RNA BECCA+probe Ql (Unsp spec) negtaive [facility] [employer] Other COVID + FLU Quick Testing Negative [facility] [employer] Other Basic Metabolic Profon 09-11 Anion gap [Moles/Vol] 9 mmol/L Normal 9-17 [facility] Comment on above: Performed By: #### B FIFI, CBC, PT #### [employer] [address] [place] [address] Cvt Tech: Anthony Aguilar MD Calcium [Mass/Vol] 8.8 mg/dL Normal 8.6-10.4 [facility] Comment on above: Performed By: #### B MP, CBC, PT #### [employer] [address] [place] [address] Cvt Tech: Anthony Aguilar MD Chloride [Moles/Vol] 106 mmol/L Normal 98-107 [facility] Comment on above: Performed By: #### B MP, CBC, PT #### [employer] [address] [place] [address] Cvt Tech: Anthony Aguilar MD CO2 [Moles/Vol] 23 mmol/L Normal 20-31 [facility] Comment on above: Performed By: #### B MP, CBC, PT #### [facility] [employer] [address] [place] [address] Cvt Tech: Anthony Aguilar MD Creatinine [Mass/Vol] 0.7 mg/dL Normal 0.5-0.9 [facility] Comment on above: Performed By: #### B MP, CBC, PT #### [facility] [employer] [address] [place] [address] Cvt Tech: Anthony Aguilar MD GFR/1.73 sq M.predicted among non-blacks MDRD (S/P/Bld) [Vol rate/Area] mL/min/{1.73_m2} Normal >60 [facility] Comment on above: Result Comment: [...] By: #### B FIFI, CBC, PT #### [facility] [employer] [address] [place] [address] Cvt Tech: Anthony Aguilar MD Glucose [Mass/Vol] 79 mg/dL Normal 70-99 [facility] Comment on above: Performed By: #### B FIFI, CBC, PT #### [facility] [employer] [address] [place] [address] Cvt Tech: Anthony Aguilar MD Potassium [Moles/Vol] 4.1 mmol/L Normal 3.7-5.3 [facility] Comment on above: Performed By: #### B MP, CBC, PT #### [facility] [employer] [address] [place] [address] Cvt Tech: Anthony Aguilar MD Sodium [Moles/Vol] 138 mmol/L Normal 135-144 [facility] Comment on above: Performed By: #### B MP, CBC, PT #### [facility] [employer] [address] [place] [address] Cvt Tech: Anthony Aguilar MD Urea nitrogen [Mass/Vol] 11 mg/dL Normal 6-20 [facility] Comment on above: Performed By: #### B MP, CBC, PT #### [facility] [employer] [address] [place] [address] Cvt Tech: Anthony Aguilar MD CBCon 09-11-2022 Erythrocyte distribution width (RBC) [Ratio] 13.2 % Normal 11.8-14.4 [facility] Comment on above: Performed By: #### B MP, CBC, PT #### [facility] [employer] [address] [place] [address] Cvt Tech: Anthony Aguilar MD Hematocrit (Bld) [Volume fraction] 41.6 % Normal 36.3-47.1 [facility] Comment on above: Performed By: #### B MP, CBC, PT #### [facility] [employer] [address] [place] [address] Cvt Tech: Anthony Aguilar MD Hemoglobin (Bld) [Mass/Vol] 13.3 g/dL Normal 11.9-15.1 [facility] Comment on above: Performed By: #### B MP, CBC, PT #### [facility] [employer] [address] [place] [address] Cvt Tech: Anthony Aguilar MD MCH (RBC) [Entitic mass] 28.3 pg Normal 25.2-33.5 [facility] Comment on above: Performed By: #### B MP, CBC, PT #### [facility] [employer] [address] [place] [address] Cvt Tech: Anthony Aguilar MD MCHC (RBC) [Mass/Vol] 32.0 g/dL Normal 28.4-34.8 [facility] Comment on above: Performed By: #### B MP, CBC, PT #### [address] [address] Cvt Tech: Anthony Aguilar MD MCV (RBC) [Entitic vol] 88.5 fL Normal 82.6-102.9 [facility] Comment on above: Performed By: #### B MP, CBC, PT #### [address] [address] Cvt Tech: Anthony Aguilar MD NRBC Automated 0.0 per 100 WBC Normal 0.0 [facility] Comment on above: Performed By: #### B MP, CBC, PT #### [address] [address] Cvt Tech: Anthony Aguilar MD Platelet mean volume (Bld) [Entitic vol] 9.7 fL Normal 8.1-13.5 [facility] Comment on above: Performed By: #### B MP, CBC, PT #### [address] [address] Cvt Tech: Anthony Aguilar MD Platelets (Bld) [#/Vol] 276 10*3/uL Normal 138-453 [facility] Comment on above: Performed By: #### B MP, CBC, PT #### [address] [address] Cvt Tech: Anthony Aguilar MD RBC (Bld) [#/Vol] 4.70 10*6/uL Normal 3.95-5.11 [facility] Comment on above: Performed By: #### B MP, CBC, PT #### [address] [address] Cvt Tech: Anthony Aguilar MD WBC (Bld) [#/Vol] 7.4 10*3/uL Normal 3.5-11.3 [facility] Comment on above: Performed By: #### B MP, CBC, PT #### [facility] [place], [place] [phone] Cvt Tech: Anthony Aguilar MD PTon 09-11-2022 INR Coag (PPP) [Relative time] 1.0 {INR} Normal [facility] Comment on above: Result Comment: Therapeutic Range: Moderate Anticoagulant Intensity: INR = 2.0-3.0 High Anticoagulant Intensity: INR = 2.5-3.5 Performed By: #### B MP, CBC, PT #### [facility] [employer] [facility] [place], [place] [phone] Cvt Tech: Anthony Aguilar MD PT Coag (PPP) [Time] 12.9 s Normal 11.7-14.9 [facility] Comment on above: Performed By: #### B MP, CBC, PT #### [facility] [address] [place] [address] [phone] Cvt Tech: Anthony Aguilar MD Surgical Pathologyon 023 Surgical Pathology (NOTE) Path Number: [id number] -- Diagnosis -- GALLBLADDER, CHOLECYSTECTOMY: -CHRONIC CHOLECYSTITIS [...] lesions or periductal lymph nodes are identified. Surface Plate Inspector sections 1c. tm Microscopic Description Microscopic examination performed. Processing Lab: [address] [phone] Interpretation Performed at [address] [phone] SURGICAL PATHOLOGY CONSULTATION Patient Name: FINA WALKER [facility] Rec: [id number] [facility] [employer] [facility] ANATOMIC PATHOLOGY [address] [place], [place] [address] Normal [facility] Urine Cultureon 02-08-2022 Bacteria identified Cx Nom (U) Reason for Exam Dysuria Urine ORGANISM: Escherichia coli (O:ESCCOL) Sod Count >100,000 Aerobic LISA Charge (NMIC56) ---- [...] ALL B-LACTAM DRUGS. PERFORMED BY: [place] [id number] PATHOLOGIST APARTMENT HOTEL MANAGER SAMIRA WEN M.D. Normal [facility] Comment on above: Performed By: #### C UU #### [place] [id number] [facility] VC CONSULT FOLLOWUPon 2021 VC CONSULT FOLLOWUP Patient: FINA WALKER Exam Date: 01/08/2022 : 1995 Gender:F Ordering : DR JAMEEL ABEBE M.D. Admission #: [id number] Family : Order #: [id number] CLICK HERE TO VIEW EXAM RADIOLOGY REPORT [...] : DR JAMEEL ABEBE M.D. Admission #: [id number] Family : Order #: [id number] CLICK HERE TO VIEW EXAM RADIOLOGY REPORT [...] M.D. on 01/08/2022 at 10:05 Normal [facility] VC ENDOVENOUS ABL 1ST V RTon 12-31-2021 VC ENDOVENOUS ABL 1ST V RT Patient: FINA WALKER Exam Date: 12/31/2021 : 1995 Gender:F Ordering : DR JAMEEL ABEBE M.D. Admission #: [id number] Family : Order #: [id number] CLICK HERE TO VIEW EXAM RADIOLOGY REPORT [...] Abebe MD on 12/31/2021 at 11:06 Normal [facility] ED Clinical Summaryon 2021 ED Clinical Summary [facility] ? Urgent Care [address] [place] [address] Clinical Summary PERSON INFORMATION Name: VERNON WALKER Age: 26 Years Sex: FEMALE : 1995 MRN: Acct#: Visit Reason: OTTERBEIN PHYSICAL Arrival: 11/28/2021 10:39:56 Discharge: 11/28/2021 10:59:00 LOS: 000 00:20 Check In: 11/28/2021 10:39:56 Checkout: 11/28/2021 10:59:00 Address: [address] [place] [address] PCP: Provider, None PROVIDER INFORMATION VITALS INFORMATION Vital Sign Triage Latest Temperature Tympanic Temperature Temporal Artery Pulse Rate O2 Sat Respiratory Rate Blood Pressure / / MEDICAL INFORMATION Medications Given: Allergy Information: No known allergies PHYSICIAN DOCUMENTATION DISCHARGE INFORMATION: Discharge Disposition: Eloped Discharge Location: PATIENT EDUCATION INFORMATION Instructions: Follow-Up: DIAGNOSIS: Patient Understands: Comment: Normal [facility] ED Patient Summaryon 022 ED Patient Summary [facility] ? Urgent Care [address] [place] [id number] PATIENT DISCHARGE INSTRUCTIONS Patient Information Name: VERNON WALKER Age: 26 Years Date of : 1995 Reason For Visit: OTTERBEIN PHYSICAL Arrival Time: 11/28/2021 10:39:56 Primary Care Physician: Provider, None Attending Physician: Nuno Bradshaw Comment: Patient Education Medication Information: The exam and treatment you received today in the [facility] Emergency Department were for an urgent problem and are not intended as complete care. It is important for you to follow up with a doctor, nurse practitioner, or physician?s operations assistant for ongoing care. If your [...] so we can reach you if necessary. [facility] Emergency Department has provided you with a complete list of medications post discharge. Please inform your see supervisor/provider of your visit and for further instruction [...] for Disease Control and Prevention October 2013 [facility] VC CONSULT FOLLOWUPon 2021 VC CONSULT FOLLOWUP Patient: FINA WALKER Exam Date: 11/28/2021 : 1995 Gender:F Ordering : DR JAMEEL ABEBE M.D. Admission #: [id number] Family : Order #: [id number] CLICK HERE TO VIEW EXAM RADIOLOGY REPORT [...] Courtney Hinton M.D. on 11/28/2021 at 10:04 [facility] VC EXT VENOUS LT LIMITEDon 1 VC EXT VENOUS LT LIMITED Patient: FINA WALKER Exam Date: 11/28/2021 : 1995 Gender:F Ordering : DR JAMEEL ABEBE M.D. Admission #: [id number] Family : Order #: [id number] CLICK HERE TO VIEW EXAM RADIOLOGY REPORT [...] : DR JAMEEL ABEBE M.D. Admission #: [id number] Family : Order #: [id number] CLICK HERE TO VIEW EXAM RADIOLOGY REPORT PROCEDURE: VEIN CENTER ENDOVENOUS ABLATION FIRST VEIN LEFT GREAT SAPHENOUS VEIN COMPARISON: VC VENOUS REFLUX JOVANA LMT, 10/17/2021. INDICATIONS: Pain co-occurrent and due to varicose veins of bilateral legs I83.813 OPERATIVE REPORT: The risks and benefits of the procedure had been previously discussed, and were rediscussed at length. Informed written consent was obtained by ne and Christopher Zavala assisted. Time out procedure [...] Jameel Abebe MD on 11/22/2021 at 09:04 [facility] VC COMP CONSULTATIONon 10-17 VC COMP CONSULTATION Patient: FINA WALKER Exam Date: 10/17/2021 : 1995 Gender:F Ordering : DR JAMEEL ABEBE M.D. Admission #: [id number] Family : Order #: [id number] CLICK HERE TO VIEW EXAM RADIOLOGY REPORT [...] 10/17/2021 at 12:46 Normal [facility] Basic Metabolic Panelon 04-0 Anion gap [Moles/Vol] 8 mmol/L Low 9 - 17 mmol/L [employer] Calcium [Mass/Vol] 8.6 mg/dL 8.6 - 10. 4 mg/dL [employer] Chloride [Moles/Vol] 106 mmol/L 98 - 107 mmol/L [employer] CO2 [Moles/Vol] 23 mmol/L 20 - 31 mmol/L [employer] Creatinine [Mass/Vol] 0.67 mg/dL 0.50 - 0.90 mg/dL [employer] GFR >60 >60 mL/min [employer] GFR Non- >60 >60 mL/min [employer] GFR/1.73 sq M.predicted MDRD (S/P/Bld) [Vol rate/Area] [employer] Comment on above: Average GFR for 20-2 9 years old: 116 mL/min/1.73sq m Chronic Kidney Disease: <60 mL/min/1.73sq m Kidney failure: <15 mL/min/1.73sq m eGFR calculated using average adult body mass. Additional eGFR calculator available at: http://www.[employer]al[employer]le.4th aspect/multiple_crcl_2012.htm Glucose [Mass/Vol] 83 mg/dL 70 - 99 mg/dL [facility] [employer] Interpretation and review of laboratory results Abnormal [employer] Potassium [Moles/Vol] 3.9 mmol/L 3.7 - 5.3 mmol/L [employer] Sodium [Moles/Vol] 137 mmol/L 135 - 144 mmol/L [employer] Urea nitrogen (BldV) [Mass/Vol] 7 mg/dL 6 - 20 mg/dL [employer] [facility] CBCon 05-17-2021 Hematocrit (Bld) [Volume fraction] 34.4 % Low 36.3 - 47.1 % [employer] Hemoglobin.gastroin testinal spec 1 Ql (Stl) 11.0 g/dL Low 11.9 - 15.1 g/dL [facility] Interpretation and review of laboratory results Abnormal [facility] MCH (RBC) [Entitic mass] 27.2 pg 25.2 - 33.5 pg [facility] MCHC (RBC) [Mass/Vol] 32.0 g/dL 28.4 - 34.8 g/dL [facility] MCV (RBC) [Entitic vol] 85.1 fL 82.6 - 102.9 fL [facility] NRBC Automated 0.0 0.0 per 100 WBC [facility] Platelet distribution width (Bld) [Ratio] 14.1 % 11.8 - 14.4 % [facility] Platelet mean volume (Bld) [Entitic vol] 10.1 fL 8.1 - 13.5 fL [facility] Platelets (Bld) [#/Vol] 302 10*3/uL [facility] RBC (Bld) [#/Vol] 4.04 10*6/uL 3.95 - 5.1 1 m/uL [facility] WBC (Bld) [#/Vol] 13.7 10*3/uL [facility] SURGICAL PATHOLOGY REPORTon 05-17-2021 Surgical Pathology Report [...] x 0.5 cm piece of adipose tissue. Surface Plate Inspector sections 1cs. tm Microscopic Description 1 H&E reviewed. Microscopic examination performed. SURGICAL PATHOLOGY CONSULTATION Patient Name: FINA WALKER [facility] Rec: [id number] Path Number: [id number] [facility] [employer] [facility] ANATOMIC PATHOLOGY [address] [place], [place] [address] [facility] [employer] Basic Metabolic Panelon Anion gap [Moles/Vol] 10 mmol/L 9 - 17 mmol/L [facility] [employer] Calcium [Mass/Vol] 8.7 mg/dL 8.6 - 10. 4 mg/dL [facility] [employer] Chloride [Moles/Vol] 105 mmol/L 98 - 107 mmol/L [facility] [employer] CO2 [Moles/Vol] 23 mmol/L 20 - 31 mmol/L [employer] Creatinine [Mass/Vol] 0.75 mg/dL 0.50 - 0.90 mg/dL [employer] GFR >60 >60 mL/min [facility] [employer] GFR Non- >60 >60 mL/min [facility] [employer] GFR/1.73 sq M.predicted MDRD (S/P/Bld) [Vol rate/Area] [facility] Comment on above: Average GFR for 20-2 9 years old: 116 mL/min/1.73sq m Chronic Kidney Disease: <60 mL/min/1.73sq m Kidney failure: <15 mL/min/1.73sq m eGFR calculated using average adult body mass. Additional eGFR calculator available at: http://www.[employer]/multiple_crcl_2011.htm Glucose [Mass/Vol] 132 mg/dL High 70 - 99 mg/dL [facility] [employer] Interpretation and review of laboratory results Abnormal [employer] Potassium [Moles/Vol] 3.5 mmol/L Low 3.7 - 5.3 mmol/L [facility] [employer] Sodium [Moles/Vol] 138 mmol/L 135 - 144 mmol/L [facility] [employer] Urea nitrogen (BldV) [Mass/Vol] 10 mg/dL 6 - 20 mg/dL [facility] CBC without Diffon 2 Hematocrit (Bld) [Volume fraction] 38.8 % 36.3 - 47.1 % [facility] Hemoglobin.gastroin testinal spec 1 Ql (Stl) 12.6 g/dL 11.9 - 15.1 g/dL [facility] Interpretation and review of laboratory results Abnormal [employer] MCH (RBC) [Entitic mass] 27.2 pg 25.2 - 33.5 pg [facility] MCHC (RBC) [Mass/Vol] 32.5 g/dL 28.4 - 34.8 g/dL [facility] MCV (RBC) [Entitic vol] 83.8 fL 82.6 - 102.9 fL [facility] NRBC Automated 0.0 0.0 per 100 WBC [facility] Platelet distribution width (Bld) [Ratio] 13.9 % 11.8 - 14.4 % [facility] Platelet mean volume (Bld) [Entitic vol] 9.8 fL 8.1 - 13.5 fL [facility] Platelets (Bld) [#/Vol] 340 10*3/uL [facility] RBC (Bld) [#/Vol] 4.63 10*6/uL 3.95 - 5.1 1 m/uL [facility] WBC (Bld) [#/Vol] 15.0 10*3/uL [facility] POC Glucose Fingerstickon Glucose [Mass/Vol] 77 mg/dL 65 - 105 mg/dL [facility] [place] POCT urine pregnancyon 05-16 Beta HCG ( test) Ql (U) Negative NEGATIVE [facility] Comment on above: Specimens with hCG l evels near the threshold of the test (25 mIU/mL) may give a negative or indeterminate result. In such cases, another test should be performed with a new specimen in 48-72 hours. If early is suspected clinically in this setting, correlation with quantitative serum b-hCG level is suggested. [facility] [id number] 05-15-2021 SARS-CoV-2 (COVID-19) RNA BECCA+probe Ql (Unsp spec) Normal [facility] Comment on above: Performed By: #### C OVID #### [facility] [employer] [address] [place] [address] Cvt Tech: Anthony Aguilar MD [facility] [address] [place] [address] Cvt Tech: Jameel Lawler MD SARS-CoV-2 (COVID-19) RNA BECCA+probe Ql (Unsp spec) Not detected Normal [facility] Comment on above: Result Comment: The specimen is NEGATIVE for SARS-CoV-2, the novel coronavirus associated with COVID-19. A negative result does not rule out COVID-19. [employer] SARS-CoV-2 for use on the [employer] is a real-time RT-PCR test intended [...] this assay. Fact sheet for Healthcare Providers: https://www.fda.gov/media/527133/download Fact sheet for Patients: https://www.fda.gov/media/347043/download METHODOLOGY: RT-PCR Performed By: #### C OVID #### [employer] Formerly [facility] [address], [place] [id number] Cvt Tech: Anthony Aguilar MD [facility] [address] [place] [address] [place] [address] Cvt Tech: Jameel Lawler MD [id number] 05-14-2021 SARS-CoV-2 (COVID-19) RNA BECCA+probe Ql (Unsp spec) .NASOPHARYNGEAL SWAB Normal [facility] Comment on above: Performed By: #### C OVID #### [facility] [address], [place] [id number] Cvt Tech: Anthony Aguilar MD [facility] [address] [place] [address] [place] [address] Cvt Tech: Jameel Lawler MD Nicotine, Bloodon 05-05-2021 9-BN-Eretnron <2 ng/mL [facility] Cotinine <2 ng/mL [facility] Nicotine <2 ng/mL [facility] Comment on above: (NOTE) Consistent with [...] developed and its performance characteristics determined by [facility]. It has not been cleared or approved by the US Food and Drug Administration. This test was performed in a CLIA certified laboratory and is intended for clinical purposes. Performed By: [facility] [address] [place] [id number] English As A Second Language Teacher: Yara Rodriguez MD [employer] EKG 12 LeadOrdered By: Diaz Conway on 05-03-2021 Atrial Rate 72 BPM [employer] Work Phone: P Tarpley 45 degrees [employer] Phone: P-R Interval 142 ms [employer] Phone: Q-T Interval 376 ms [employer] Work Phone: QRS Duration 100 ms [employer] Phone: QTc Calculation (Bazett) 411 ms [employer] Phone: R Tarpley 22 degrees [employer] Phone: T Tarpley 32 degrees [employer] Phone: Ventricular Rate 72 BPM [employer] Work Phone: [employer] Phone: EKG 12 Leadon 05-03-2021 Normal sinus rhythm Normal ECG No previous ECGs available [facility] Diaz Romero MD - 05/03/2021 Normal sinus rhythm Normal ECG No previous ECGs available [employer] Work Phone: APTTon 05-02-2021 aPTT Coag (Bld) [Time] 25.0 s [facility] Comment on above: IV Heparin Therapy Range: 48.6-77.8 Basic Metabolic Panelon 04-11 Anion gap [Moles/Vol] 15 mmol/L 9 - 17 mmol/L [employer] Calcium [Mass/Vol] 9.8 mg/dL 8.6 - 10. 4 mg/dL [employer] Chloride [Moles/Vol] 102 mmol/L 98 - 107 mmol/L [employer] CO2 [Moles/Vol] 21 mmol/L 20 - 31 mmol/L [employer] Creatinine [Mass/Vol] 0.55 mg/dL 0.50 - 0.90 mg/dL [employer] GFR >60 >60 mL/min [facility] GFR Non- >60 >60 mL/min [employer] GFR/1.73 sq M.predicted MDRD (S/P/Bld) [Vol rate/Area] [facility] Comment on above: Average GFR for 20-2 9 years old: 116 mL/min/1.73sq m Chronic Kidney Disease: <60 mL/min/1.73sq m Kidney failure: <15 mL/min/1.73sq m eGFR calculated using average adult body mass. Additional eGFR calculator available at: http://www.DealCircle.4th aspect/multiple_crcl_2011.htm Glucose [Mass/Vol] 85 mg/dL 70 - 99 mg/dL [facility] [employer] Potassium [Moles/Vol] 4.5 mmol/L 3.7 - 5.3 mmol/L [employer] Sodium [Moles/Vol] 138 mmol/L 135 - 144 mmol/L [employer] Urea nitrogen (BldV) [Mass/Vol] 11 mg/dL 6 - 20 mg/dL [facility] CBCon 05-02-2021 Hematocrit (Bld) [Volume fraction] 41.0 % 36.3 - 47.1 % [employer] Hemoglobin.gastroin testinal spec 1 Ql (Stl) 12.9 g/dL 11.9 - 15.1 g/dL [facility] MCH (RBC) [Entitic mass] 26.9 pg 25.2 - 33.5 pg [facility] MCHC (RBC) [Mass/Vol] 31.5 g/dL 28.4 - 34.8 g/dL [facility] MCV (RBC) [Entitic vol] 85.6 fL 82.6 - 102.9 fL [facility] [employer] NRBC Automated 0.0 0.0 per 100 WBC [facility] [employer] Platelet distribution width (Bld) [Ratio] 13.7 % 11.8 - 14.4 % [facility] [employer] Platelet mean volume (Bld) [Entitic vol] 9.8 fL 8.1 - 13.5 fL [facility] [employer] Platelets (Bld) [#/Vol] 380 10*3/uL [facility] [employer] RBC (Bld) [#/Vol] 4.79 10*6/uL 3.95 - 5.1 1 m/uL [facility] [employer] WBC (Bld) [#/Vol] 11.2 10*3/uL [facility] No Panel Informationon 05-02 [employer] Protime-INRon 05-02-2021 INR Coag (Bld) [Relative time] 1.0 {INR} [facility] [employer] Comment on above: Therapeutic Range: Moderate Anticoagulant Intensity: INR = 2.0-3.0 High Anticoagulant Intensity: INR = 2.5-3.5 PT Coag (PPP) [Time] 10.6 s [employer] XR CHEST (2 VW)on 05-02-2021 No acute [...] No free air. IMPRESSION: No acute process. [employer] Phone: Radiology Study observation (narrative) [employer] Phone: XR CHEST (2 VW)Ordered By: Santos Florez on 05-02-2021 [facility] [id number] 12-05-2020 SARS-CoV-2 (COVID-19) RNA BECCA+probe Ql (Unsp spec) Normal [facility] Comment on above: Performed By: #### C OVID #### [employer] [address], [place] [id number] Cvt Tech: Anthony Aguilar MD [facility] [address] [place] [address] Cvt Tech: Jameel Lawler MD SARS-CoV-2 (COVID-19) RNA BECCA+probe Ql (Unsp spec) Not detected Normal NOTDET [facility] Comment on above: Result Comment: The specimen is NEGATIVE for SARS-CoV-2, the novel coronavirus associated with COVID-19. A negative result does not rule out COVID-19. Lucrecia SARS-CoV-2 for use on the Lu[employer]00 [employer] is a real-time RT-PCR test intended [...] this assay. Fact sheet for Healthcare Providers: https://www.fda.gov/media/210180/download Fact sheet for Patients: https://www.fda.gov/media/168828/download METHODOLOGY: RT-PCR Performed By: #### C OVID #### [facility] [address], [place] [id number] Cvt Tech: Anthony Aguilar MD [facility] [address] [place] [address] Cvt Tech: Jameel Lawler MD [id number] 12-04-2020 SARS-CoV-2 (COVID-19) RNA BECCA+probe Ql (Unsp spec) .NASOPHARYNGEAL SWAB Normal [facility] Comment on above: Performed By: #### C OVID #### [facility] [address], [place] [id number] Cvt Tech: Anthony Aguilar MD [facility] [address] [place] [address] Cvt Tech: Jameel Lawler MD Vital Signs Date Time Vital Sign Value Performing Clinician Facility 03-19-2023 11:06-0500 Body mass index (BMI) [Ratio] 36.34 kg/m2 Eloise BURROUGHS Work Phone: [facility] 03-19-2023 11:06-0500 Body weight 105.23 kg Eloise BURROUGHS Work Phone: [facility] 03-19-2023 11:06-0500 Diastolic blood pressure 78 mm[Hg] Eloise BURROUGHS Work Phone: [facility] 03-19-2023 11:06-0500 Systolic blood pressure 124 mm[Hg] Eloise BURROUGHS Work Phone: [facility] 03-05-2023 10:48-0500 Body mass index (BMI) [Ratio] 35.08 kg/m2 Karoline Hopson MD Work Phone: [facility] 03-05-2023 10:48-0500 Body weight 101.61 kg Karoline Hopson MD Work Phone: [facility] 03-05-2023 10:48-0500 Diastolic blood pressure 75 mm[Hg] Karoline Hopson MD Work Phone: [facility] 03-05-2023 10:48-0500 Heart rate 89 /min Karoline Hopson MD Work Phone: [facility] [employer] 03-05-2023 10:48-0500 Systolic blood pressure 126 mm[Hg] Karoline Hopson MD Work Phone: [facility] [employer] 02-07-2023 13:34-0500 Body height 170.2 cm Tatiana [facility]ap [facility] 02-07-2023 13:34-0500 Body mass index (BMI) [Ratio] 34.14 kg/m2 Tatiana Yap MD [facility] 02-07-2023 13:34-0500 Body weight 98.88 kg Tatiana Yap MD [facility] 02-07-2023 13:34-0500 Diastolic blood pressure 83 mm[Hg] Tatiana Yap MD [facility] 02-07-2023 13:34-0500 Heart rate 76 /min Tatiana Yap MD [facility] 02-07-2023 13:34-0500 Systolic blood pressure 126 mm[Hg] Tatiana Yap MD Work Phone: [facility] 10-12-2022 10:10-0400 Body height 170.18 cm Lilia Daugherty Other [employer] Other 10-12-2022 10:10-0400 Body mass index (BMI) [Ratio] 32.86 kg/m2 Lilia Daugherty Other [employer] Other 10-12-2022 10:10-0400 Body temperature 99 [degF] Lilia Daugherty Other [employer] Other 10-12-2022 10:10-0400 Body weight 95.17 kg Lilia Daugherty Other [employer] Other 10-12-2022 10:10-0400 Diastolic blood pressure 74 mm[Hg] Lilia Daugherty Other [employer] Other 10-12-2022 10:10-0400 SaO2% (BldA) [Mass fraction] 98 % Lilia Daugherty Other [employer] Other 10-12-2022 10:10-0400 Systolic blood pressure 118 mm[Hg] Lilia Daugherty Other [employer] Other 05-17-2021 15:52-0400 Body temperature 98.49 [degF] Patricia Mars [address] Work Phone: [facility] 05-17-2021 15:52-0400 Diastolic blood pressure 97 mm[Hg] Patricia Mars [address] Work Phone: [facility] 05-17-2021 15:52-0400 Heart rate 70 /min Patricia HuertaAlkymos Work Phone: [facility] 05-17-2021 15:52-0400 Respiratory rate 18 /min Patricia Mars [address] Work Phone: [facility] 05-17-2021 15:52-0400 SaO2% (BldA) [Mass fraction] 99 % Patricia Mars [address] Work Phone: [employer] 05-17-2021 15:52-0400 Systolic blood pressure 138 mm[Hg] Patricia Mars [address] Work Phone: [facility] 05-16-2021 06:06-0400 Body mass index (BMI) [Ratio] 43.16 kg/m2 Patricia Mars [address] Work Phone: [facility] 05-16-2021 06:06-0400 Body weight 125 kg Patricia Mars [address] Work Phone: [facility] 05-16-2021 05:57-0400 Body height 170.2 cm Patricia Mars DO Work Phone: [facility] 05-02-2021 10:35-0400 Body height 170.2 cm Stvz 1 [facility] 05-02-2021 10:35-0400 Body mass index (BMI) [Ratio] 44.95 kg/m2 Stvz 1 [facility] 05-02-2021 10:35-0400 Body temperature 97.2 [degF] Stvz 1 [facility] 05-02-2021 10:35-0400 Body weight 130.18 kg Stvz 1 [facility] 05-02-2021 10:35-0400 Diastolic blood pressure 85 mm[Hg] Stvz 1 [facility] 05-02-2021 10:35-0400 Heart rate 66 /min Stvz 1 [facility] 05-02-2021 10:35-0400 Respiratory rate 18 /min Stvz 1 [facility] 05-02-2021 10:35-0400 SaO2% (BldA) [Mass fraction] 99 % Stvz 1 [facility] 05-02-2021 10:35-0400 Systolic blood pressure 122 mm[Hg] Stvz 1 [facility] 12-04-2020 17:00-0400 Body height 170.18 cm Ale Ginty Other [employer] Other 12-04-2020 17:00-0400 Body mass index (BMI) [Ratio] 43.85 kg/m2 Ale Ginty Other [employer] Other 12-04-2020 17:00-0400 Body temperature 97.4 [degF] Ale Ginty Other [employer] Other 12-04-2020 17:00-0400 Body weight 127.01 kg Ale Ginty Other [employer] Other 12-04-2020 17:00-0400 SaO2% (BldA) [Mass fraction] 99 % Ale Ginty Other [facility] [employer] Other Encounters Encounter Date Encounter Type Care Provider Facility Start: 05-28-2023 End: 05-28-2023 ambulatory NIGEL REGALADOO Not Available Start: 05-15-2023 End: 05-15-2023 ambulatory ELOISE DOMINGUEZ Not Available Start: 05-13-2023 End: 05-14-2023 ambulatory KIMMY Snow MACHUCA Not Available Start: 05-01-2023 End: 05-01-2023 ambulatory NIGEL ZACARIAS Not Available Start: 04-10-2023 End: 04-10-2023 ambulatory NIGEL ZACARIAS Not Available Start: 04-09-2023 End: 04-10-2023 ambulatory NIGEL REGALADOO [facility] Start: 03-24-2023 Clinisync Result Encounter Nigel Zacarias [...] Only Laila Castillo RN [facility] Comment on above: Hypertension affecti ng in second trimester (Primary Dx); Dichorionic diamniotic twin in second trimester Start: 03-05-2023 End: 03-05-2023 Office outpatient visit 15 minutes Karoline Hopson MD Work Phone: [facility] Comment on above: History of sleeve ga strectomy (Primary Dx); History of induced hypertension Start: 02-27-2023 Orders Only Sivan Martinez RN Ma tern[facility]- [facility] at [facility] Comment on above: Hypertension affecti ng in second trimester; 16 weeks gestation of ; Dichorionic diamniotic twin in second trimester Start: 02-26-2023 End: 02-26-2023 ambulatory NIGEL ZACARIAS Not Available Start: 02-24-2023 Telephone encounter Sangita Thomas RN [facility] [place] Start: 02-07-2023 End: 02-07-2023 ambulatory TATIANA JANEL [facility] Start: 02-07-2023 End: 02-07-2023 Office consultation new/estab patient 60 min Tatiana Yap MD Work Phone: [facility] [place] Comment on above: Hypertension affecti ng in second trimester (Primary Dx); 16 weeks gestation of ; Dichorionic diamniotic twin in second trimester; H/O gastric sleeve Start: 02-05-2023 End: 02-05-2023 ambulatory NIGEL ZACARIAS Not Available Start: 02-05-2023 Chart abstracting Tatiana Yap MD Work Phone: [facility] [place] Start: 02-04-2023 End: 02-04-2023 ambulatory MARGOT G YAW Not Available Start: 01-15-2023 End: 01-15-2023 ambulatory NIGEL ZACARAIS Not Available Start: 01-07-2023 End: 01-07-2023 ambulatory MARGOT G YAW Not Available Start: 12-20-2022 End: 12-21-2022 ambulatory NIGEL ZACARIAS Not Available Start: 10-12-2022 End: 10-12-2022 ambulatory Lilia Daugherty Other [employer] Other Start: 10-12-2022 Office outpatient vi sit 15 minutes Lilia Daugherty [facility] Start: 09-11-2022 End: 09-11-2022 ambulatory PATRICIA Rucker [facility] Start: 02-10-2022 End: 02-10-2022 ambulatory Ale Shields Other [employer] Other Start: 02-10-2022 Telephone encounter Ale Shields [facility] [address] Start: 02-08-2022 End: 02-08-2022 ambulatory Ale Kishor Shields Facility:[facility] Start: 02-08-2022 End: 02-08-2022 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 Ale Shields Work Phone: [facility] Work Phone: Start: 02-08-2022 End: 02-08-2022 Departed Referred 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 Ale Shields Work Phone: [facility] [place] Work Phone: Start: 01-08-2022 End: 01-09-[address] JAMEEL ABEBE Facility:[facility] Start: 12-31-2021 End: 01-01-[address] JAMEEL ABEBE Facility:[facility] Start: 11-28-2021 End: 11-28-2021 ambulatory None Provider Facility:[facility] Start: 11-28-2021 End: 11-29-[address] [...] 05-14-2021 End: 05-19-2021 ambulatory CYN OKEEFE [facility] Start: 05-02-2021 End: 05-06-2021 Subsequent hospital visit by physician Dwight Pat Rm 1 [facility] Pre-Admit Testing Start: 12-04-2020 End: 12-09-2020 ambulatory CYN OKEEFE [facility] Start: 12-04-2020 Office outpatient vi sit 15 minutes Ale Harris [facility] Start: 10-20-2020 End: 10-20-2020 Subsequent hospital visit by physician Patricia Mars DO Work Phone: [facility] [place] Start: 09-06-2020 End: 09-07-2020 [facility]ulatory [facility] Start: 09-06-2020 End: 09-06-2020 Subsequent hospital visit by physician [facility] Sleep Rm 1 [facility] Comment on above: LYNN (obstructive sle ep apnea) Start: 05-28-2017 End: 05-29-2017 Ambulatory Neo [facility] Facility:[id number] Procedures Date Procedure Procedure Detail Performing Clinician Start: 03-24-2023 [facility] UA (CLEAN/CATCH) 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 Nigel Zacarias DO Work Phone: [...] Start: 05-02-2021 Assay of nicotine Sim Rucker [employer] Work Phone: Start: 05-02-2021 Basic metabolic pane l calcium total Patricia Mars DO Work Phone: Start: 05-02-2021 Radiologic exam ches t 2 views Patricia Mars DO Work Phone: Start: 05-02-2021 Ecg routine ecg w/le ast 12 lds i&r only Patricia Mars [address] Work Phone: Start: 06-14-2020 Microscopic observat ion [Identifier] in Cervix by Cyto stain Tatiana Yap MD Work Phone: Plan of Treatment Date Care Activity Detail Author Start: 03-05-2024 Adult BMI Screening Adult BMI Screen ing [email or web address] Start: 03-05-2024 Tobacco Screening Tobacco Screening [email or web address] Start: 03-05-2024 End: 03-05-2024 US MFM with or without consult US MFM with or without consult Imaging Routine Hypertension affecting in second trimester Dichorionic diamniotic twin in second trimester Expected: 03/05/2024 (Approximate), Expires: 03/05/2024 [employer] Work Phone: Comment on above: Expected: 03/05/2024 (Approximate), Expires: 03/05/2024 Start: 02-08-2024 Adult BMI Screening Adult BMI Screen ing [email or web address] Start: 02-08-2024 Tobacco Screening Tobacco Screening [facility] Start: 01-04-2024 Adult BMI Screening Adult BMI Screen ing [facility] Start: 01-04-2024 Tobacco Screening Tobacco Screening [facility] Start: 08-11-2023 DTaP,Tdap and Td Vaccines (7 - Td or Tdap) DTaP,Tdap and Td Vaccines (7 - Td or Tdap) [facility] Start: 08-11-2023 DTaP/Tdap/Td vaccine (7 - Td or Tdap) DTaP/Tdap/Td vaccine (7 - Td or Tdap) [facility] Start: 08-10-2023 Influenza vaccination Influenza Vacc ine (#1) [facility] Comment on above: Postponed from 10/11 (Patient Refused) Start: 06-15-2023 Screening for malign ant neoplasm of cervix Pap Smear [facility] Start: 04-10-2023 End: 04-10-2023 Patient encounter procedure [facility] [place] Start: 03-19-2023 End: 03-19-2024 CBC panel - Blood by Automated count CBC Lab Routine Diabetes mellitus screening Expected: 03/19/2023 (Approximate), Expires: 03/19/2024 [facility] Work Phone: Comment on above: Expected: 03/19/2023 (Approximate), Expires: 03/19/2024 Start: 03-19-2023 End: 03-19-2024 Measurement of glucose 1 hour after glucose challenge for glucose tolerance test Glucose tolerance, 1 hour Lab Routine Diabetes mellitus screening Expected: 03/19/2023 (Approximate), Expires: 03/19/2024 [facility] Comment on above: Expected: 03/19/2023 (Approximate), Expires: 03/19/2024 Start: 03-05-2023 End: 03-05-2023 Patient encounter procedure 03/05/2023 11:30 AM EST Office Visit [facility]- [facility] at [facility] [address] [place] [address] Karoline Hopson MD [address] [place] [address] [facility] at [facility] Start: 03-05-2023 End: 03-05-2023 Patient encounter procedure 03/05/2023 9:[address] [facility] [address] [place] [address] [facility] Start: 02-07-2023 End: 02-07-2023 Patient encounter procedure [facility] [place] Start: 10-11-2022 Influenza vaccination Influenza Vacc ine [facility] Start: 09-19-2022 Adult BMI Follow Up Plan Adult BMI Follow Up Plan [facility] Start: 02-08-2022 Bacteria identified in Urine by Culture Urine Culture [facility] Start: 01-08-2022 Hemoglobin A1c measurement A1C test (Diabetic or Prediabetic) [facility] Start: 10-11-2021 Influenza vaccination Flu vacc ine (Season Ended) [facility] Start: 07-14-2021 Hemoglobin A1c measurement A1C test (Diabetic or Prediabetic) [facility] Work Phone: Start: 06-18-2021 End: 06-18-2021 Patient encounter procedure 06/18/2021 Office Visit Bariatrics Deann Navarro, 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 - ELECTRIC FREIGHT CAR OPERATOR [address] [place] [phone] [facility] Start: 05-24-2021 End: 05-24-2021 Patient encounter procedure 05/24/2021 Office Visit Bariatrics Patricia Mars DO [address] [place] [address] [facility] Invasive Bariatric Surg Start: 05-16-2021 End: 05-16-2021 Admission to same day surgery center 05/16/2021 Surgery IP Unit Patricia Mars DO [address] [place] [address] XI ROBOTIC LAPAROSCOPIC GASTRECTOMY SLEEVE , LIVER BIOPSY, EGD- GI SCHEDULED [facility] Comment on above: XI ROBOTIC LAPAROSCO PIC GASTRECTOMY SLEEVE , LIVER BIOPSY, EGD- GI SCHEDULED Start: 05-16-2021 End: 05-16-2021 Laps gstrc rstrictiv px longitudinal gastrectomy GASTRECTOMY SLEEVE LAPAROSCOPIC ROBOTIC MORBID OBESITY, OBSTRUCTIVE SLEEP APNEA, GERD 05/16/2021 7:10 AM EDT [facility] Start: 05-16-2021 Subsequent hospital visit by physician 05/16/2021 Hospital Encounter IP Unit Patricia Mars DO [address] [place] [address] [facility] Start: 05-13-2021 End: 05-13-2021 Patient encounter procedure 05/13/2021 Appointment Pre-Admission Testing [facility] PRE ADMIT Start: 05-10-2021 End: 05-10-2021 Patient encounter procedure 05/10/2021 Office Visit Patricia Islas DO [address] [place] [address] [facility] Invasive Bariatric Surg Start: 11-22-2020 End: 11-22-2020 Nursing evaluation of patient and report 11/22/2020 Nurse Only Bariatrics [facility]vasive Bariatric Surg Start: 11-06-2020 End: 11-06-2020 Patient encounter procedure [facility] Start: 11-03-2020 End: 11-03-2020 Patient encounter procedure 11/03/2020 Office Visit Deann Brothers, 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 - ELECTRIC FREIGHT CAR OPERATOR [address] [facility] [place] [phone] [facility] Start: 10-11-2020 Influenza vaccination Flu vaccine (# 1) [facility] Start: 09-28-2020 End: 09-28-2020 Patient encounter procedure 09/28/2020 Office Visit Deann Brothers, 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 - ELECTRIC FREIGHT CAR OPERATOR [address] [facility] [place] [address] [facility] Start: 09-01-2015 Screening for malign ant neoplasm of cervix [facility] Start: 2009 HIV screening HIV screen [facility] Start: 2006 COVID-19 Vaccine (1) COVID-19 Vaccin e (1) [facility] [employer] Work Phone: Start: 2006 Depression Screen Depression Screen [facility] Start: 2006 Depression Screening Depression Scre [facility] Start: 2005 HPV vaccine (1 - 2-d ose series) HPV vaccine (1 - 2-dose series) [facility] Start: 2000 Pneumococcal 0-64 ye ars Vaccine (1 of 2 - PPSV23) Pneumococcal 0-64 years Vaccine (1 of 2 - PPSV23) [facility] Work Phone: Start: 09-01-1999 COVID-19 Vaccine (1) COVID-19 Vaccin e (1) [facility] Start: 09-01-1995 Varicella vaccine (1 of 2 - 2-dose childhood series) Varicella vaccine (1 of 2 - 2-dose childhood series) [facility] Start: 1994 Hepatitis C screening Hepatitis C sc [facility] End: 09-06-2020 Baseline Diagnostic Sleep Study Baseline Diagnostic Sleep Study Sleep Center Routine LYNN (obstructive sleep apnea) 1 Occurrences starting 09/06/2020 until 09/06/2020 [facility] [email or web address] Phone: Comment on above: 1 Occurrences starti ng 09/06/2020 until 09/06/2020 End: 02-08-2024 Calcium [Mass/volume] in Serum or Plasma Calcium Lab Routine 16 weeks gestation of H/O gastric sleeve 1 Occurrences starting 02/07/2023 until 02/08/2024 [email or web address] Comment on above: 1 Occurrences starti ng 02/07/2023 until 02/08/2024 End: 02-08-2024 CBC panel - Blood by Automated count CBC without diff Lab Routine Hypertension affecting in second trimester 16 weeks gestation of Dichorionic diamniotic twin in second trimester 1 Occurrences starting 02/07/2023 until 02/08/2024 [employer] Work Phone: Comment on above: 1 Occurrences starti ng 02/07/2023 until 02/08/2024 End: 02-08-2024 Comprehensive metabolic 2000 panel - Serum or Plasma Comprehensive metabolic panel Lab Routine Hypertension affecting in second trimester 16 weeks gestation of Dichorionic diamniotic twin in second trimester 1 Occurrences starting 02/07/2023 until 02/08/2024 [email or web address] Comment on above: 1 Occurrences starti ng 02/07/2023 until 02/08/2024 Continuous pulse oximetry Pulse oximetry, continuous Respiratory Care Routine Every 4hr until discontinued starting 05/16/2021 [employer] Work Phone: Comment on above: Every 4hr until disc ontinued starting 05/16/2021 End: 02-08-2024 Cyanocobalamin vitamin b-12 Vitamin B12 Lab Routine 16 weeks gestation of H/O gastric sleeve 1 Occurrences starting 02/07/2023 until 02/08/2024 [email or web address] Comment on above: 1 Occurrences starti ng 02/07/2023 until 02/08/2024 End: 02-08-2024 ECG 12 lead ECG 12 lead ECG Routine Hypertension affecting in second trimester 16 weeks gestation of Dichorionic diamniotic twin in second trimester 1 Occurrences starting 02/07/2023 until 02/08/2024 [email or web address] Comment on above: 1 Occurrences starti ng 02/07/2023 until 02/08/2024 End: 02-08-2024 Folate Folate Lab Routine 16 weeks gestation of H/O gastric sleeve 1 Occurrences starting 02/07/2023 until 02/08/2024 [email or web address] Comment on above: 1 Occurrences starti ng 02/07/2023 until 02/08/2024 End: 02-08-2024 Iron and TIBC Iron and TIBC Lab Routine 16 weeks gestation of H/O gastric sleeve 1 Occurrences starting 02/07/2023 until 02/08/2024 [email or web address] Comment on above: 1 Occurrences starti ng [...] 1 Occurrences starting 02/07/2023 until 02/08/2024 [facility] Comment on above: 1 Occurrences starti ng 02/07/2023 until 02/08/2024 Oxygen therapy [[facility] Data Set] Initiate Oxygen Therapy Protocol Respiratory Care Routine As Needed until discontinued starting 05/16/2021 [employer] Phone: Comment on above: As Needed until disc ontinued starting 05/16/2021 End: 02-08-2024 Protein creat ratio Protein creat ratio Lab Routine Hypertension affecting in second trimester 16 weeks gestation of Dichorionic diamniotic twin in second trimester 1 Occurrences starting 02/07/2023 until 02/08/2024 [facility] above: 1 Occurrences starti ng 02/07/2023 until 02/08/2024 End: 02-08-2024 Protein, urine, 24 hour Protein, urine, 24 hour Lab Routine Hypertension affecting in second trimester 16 weeks gestation of Dichorionic diamniotic twin in second trimester 1 Occurrences starting 02/07/2023 until 02/08/2024 [facility] Comment on above: 1 Occurrences starti ng 02/07/2023 until 02/08/2024 Spirometry panel Incentive isiah metry Respiratory Care Routine Every 2hr while awake until discontinued starting 05/16/2021 [employer] Phone: Comment on above: Every 2hr while awak e until discontinued starting 05/16/2021 Surgical Pathology Surgical Path ology Lab Routine Release Upon Ordering for 1 Occurrences starting 05/16/2021 [employer] Phone: Comment on above: Release Upon Orderin [...] Immunizations Immunization Date Immunization Notes Care Provider [facility] 11-12-2016 tuberculin skin test ; [...] vaccine, unspecified formulation Eloise BURROUGHS Work Phone: [facility] 10-03-1999 hepatitis B vaccine, pediatric or [...] [facility]1996 diphtheria, tetanus toxoids and pertussis vaccine Eloise BURROUGHS Work Phone: [facility] 01-14-1996 haemophilus influenz ae type b vaccine, conjugate unspecified formulation Tatiana Yap MD Work Phone: [facility] 01-14-1996 measles, mumps and rubella virus vaccine Tatiana Yap MD Work Phone: [facility] 05-21-1995 diphtheria, tetanus toxoids and acellular pertussis vaccine Tatiana Yap MD Work Phone: [facility] 05-21-1995 DTP-Haemophilus influenzae type b conjugate vaccine Eloise BURROUGHS Work Phone: [facility] 05-21-1995 haemophilus influenz ae type b vaccine, conjugate unspecified formulation Tatiana Yap MD Work Phone: [facility] 05-21-1995 poliovirus vaccine, inactivated Tatiana Yap MD Work Phone: [facility] 05-21-1995 trivalent poliovirus vaccine, live, oral Eloise BURROUGHS Work Phone: [facility] 02-21-1995 diphtheria, tetanus toxoids and acellular pertussis vaccine Tatiana Yap MD Work Phone: [facility] 02-21-1995 DTP-Haemophilus influenzae type b conjugate vaccine Eloise BURROUGHS Work Phone: [facility] 02-21-1995 haemophilus influenz ae type b vaccine, conjugate unspecified formulation Tatiana Yap MD Work Phone: [facility] 02-21-1995 hepatitis B vaccine, pediatric or pediatric/adolescent dosage Tatiana Yap MD Work Phone: [facility] 02-21-1995 poliovirus vaccine, inactivated Tatiana Yap MD Work Phone: [facility] 02-21-1995 trivalent poliovirus vaccine, live, oral Eloise BURROUGHS Work Phone: [facility] 1994 diphtheria, tetanus toxoids and acellular pertussis vaccine Tatiana Yap MD Work Phone: [facility] 1994 DTP-Haemophilus influenzae type b conjugate vaccine Eloise BURROUGHS Work Phone: [facility] 1994 haemophilus influenz ae type b vaccine, conjugate unspecified formulation Tatiana Yap MD Work Phone: [facility] 1994 hepatitis B vaccine, pediatric or pediatric/adolescent dosage Tatiana Yap MD Work Phone: [facility] 1994 poliovirus vaccine, inactivated Tatiana Yap MD Work Phone: [facility] 1994 trivalent poliovirus vaccine, live, oral Eloise BURROUGHS Work Phone: [facility] 1994 hepatitis B vaccine, pediatric or pediatric/adolescent dosage Tatiana Yap MD Work Phone: [facility] Payers Date Payer Category Payer Medicaid [id number] 2022 Medicaid [id number] 2022 Self-pay 2019 Unknown [id number] [id number]. 7.3.112633.315 1994 Unknown [id number] 2.16.840.1.501476.3.579.2. 173 1994 Unknown [id number] 2.16.840.1.120284.3.579.2. 173 1994 Unknown [id number] 2.16.840.1.153084.3.579.2. 173 1994 Unknown [id number] 2.16.840.1.181303.3.579.2. 593 1994 Unknown [id number] 2.16.840.1.591697.3.579.2. 593 1994 Unknown [id number] 2.16.840.1.490418.3.579.2. 593 1994 Unknown [id number] 2.16.840.1.759161.3.579.2. 593 1994 Unknown [id number] 2.16.840.1.336400.3.579.2. 593 1994 Unknown [id number] 2.16.840.1.951437.3.579.2. 593 1994 Unknown [id number] 2.16.840.1.360019.3.579.2. 175 1994 Unknown [id number] 2.16840.1.411216.3.579.2. 1286 1994 Unknown [id number] 2.16840.1.760238.3.579.2. 128 1994 Unknown [id number] 2.16840.1.413437.3.579.2. 128 1994 Unknown [id number] 2.16840.1.886421.3.579.2. 1285 1994 Unknown [id number] 2.16840.1.176982.3.579.2. 128 1994 Unknown [id number] 2.16840.1.782190.3.579.2. 1259 1994 Unknown [id number] 2.16.840.1.600299.3.579.2. 1259 1994 Unknown [id number] 2.16840.1.777839.3.579.2. 1259 1994 Unknown [id number] 2.16.840.1.093113.3.579.2. 1259 1994 Unknown [id number] 2.16840.1.335652.3.579.2. 1259 1994 Unknown [id number] 2.16.840.1.461580.3.579.2. 1258 1994 Unknown [id number] 2.16.840.1.709707.3.579.2. 1258 1994 Unknown [id number] 2.16.840.1.189308.3.579.2. 1258 1994 Unknown [id number] 2.16.840.1.714884.3.579.2. 1258 1994 Unknown [id number] 2.16.840.1.064061.3.579.2. 1258 1994 Unknown [id number] 2.16.840.1.910901.3.579.2. 1258 1994 Unknown [id number] 2.16.840.1.485108.3.579.2. 1259 1959 Private Health Insurance [id number] 1.2.840.696620.1.13.239.2. 7.3.679795.315 Private Health Insurance [facility] [id number] Unknown [id number] 2.16.840.1.744316.3.579.2. 531 Social History Date Type Detail Facility Start: 09-01-2020 End: 09-28-2020 Tobacco smoking status [facility] Current every day smoker [employer] Phone: Start: 09-01-2020 End: 07-03-2022 Cigarettes smoked current (pack per day) - Reported [facility] Start: 09-01-2020 End: 07-03-2022 Tobacco use and exposure Never used [employer] Phone: Start: 09-01-2020 End: 09-28-2020 Alcohol intake Current drinker of alcohol (finding) [employer] Phone: Start: 12-23-2019 Alcohol Comment weekly [employer] Phone: Start: 1995 Sex Assigned At Not on file [employer] Phone: Start: 04-22-2021 End: 05-16-2021 Exposure to SARS-CoV-2 (event) Not sure [employer] Exposure to SARS-CoV -2 (event) Yes [employer] Start: 01-19-2021 End: 07-03-2022 Tobacco smoking status [facility] Ex-smoker [employer] Start: 02-11-2008 End: 11-19-2020 History of tobacco use Current smoker [employer] Phone: Start: 05-02-2021 End: 02-26-2023 Alcohol intake Ex-drinker (finding) [employer] Phone: Start: 08-17-2018 End: 07-03-2022 Sex Assigned At [email or web address] Start: 1995 Sex Assigned At Female [facility] Start: 02-11-2008 End: 02-11-2020 History of tobacco use Cigarette Smoker [facility] [employer] [facility] History of tobacco use Tobacco U se Types Packs/Day Years Used Date Smoking Tobacco: Former Cigarettes Quit: 2020 Vaping/E-cigarettes Smokeless Tobacco: Former Quit: 11/06/2020 [facility] Start: 02-05-2023 Tobacco use and exposure Former smokeless tobacco user [facility] End: 11-06-2020 History of tobacco use User of smokeless tobacco [facility] [employer] [facility] Frequency of Communication with Friends and Family More than three times a week [facility] [employer] [facility] Start: 08-17-2018 Education 12 [facility] Start: 05-18-2022 Alcohol Comment social, every other weekend [facility] Start: 10-31-2022 [facility] Within the last year , have [...] Comment caffeine: 1-2 cups per day coffee [facility] Clinical Notes 12-04-2020 to 03-19-2023 HEIKE Meeks - 03/19/2023 11:00 AM Alva Castillo RN - 03/05/2023 11:30 AM Augustin Hopson MD - 03/05/2023 11:30 AM ESTTelephone Encounter - Sangita Thoams RN - 02/24/2023 12:34 PM EST Note [...] of: HEIKE Meeks documented in this encounter [facility] 03-05-2023 History of Presen t illness Narrative Headache/epigastric pain/blurry vision/swelling? No Cramping/contractions? No Abnormal vaginal discharge? No Spotting or vaginal bleeding? No Loss of fluid like your water may have broken? No Recent ER visits or hospitalizations? Patient reports visit to [place] approximately two weeks ago to r/o ROM [...] you for allowing [facility] to [facility]. If there are any questions, please do not hesitate to call me. Sincerely, KAROLINE HOPSON MD documented in this encounter [facility] 02-24-2023 Miscellaneous Notes Incoming telephone call from patient with concerns of leakage of fluid. Patient called in and stated that she is Leaking clear fluid and has been. General Office Associate asked if she had spoken to her OB provider and she said that she had, but they told her that she is basically too early to be leaking any fluid. General Office Associate recommended patient present to the nearest emergency room to be evaluated. Patient verbalized understanding and had no further questions. documented in this encounter [facility] 02-24-2023 Telephone encounter Note Incoming telephone call from patient with concerns of leakage of fluid. Patient called in and stated that she is Leaking clear fluid and has been. General Office Associate asked if she had spoken to her OB provider and she said that she had, but they told her that she is basically too early to be leaking any fluid. General Office Associate recommended patient present to the nearest emergency room to be evaluated. Patient verbalized understanding and had no further questions. [facility] History of Presen t illness Narrative Headache/epigastric pain/blurry vision/swelling? Occasional headaches Cramping/contractions? No Abnormal vaginal discharge? No Spotting/vaginal bleeding? No Loss of fluid like your water may have broken? No Cats in the home? No Do you change the litter box? No Flu vaccine? No Genetic testing done this here or other office? Yes Have you been seen here at [facility] in a previous ? No Recent ER visits or hospitalizations? No Bring blood sugar log or meter with you today? (Please bring them with you for every visit at [facility]) N/A Traveled outside the country in [...] TESTS AND ULTRASOUND REPORTS: Referral records and [facility] chart were reviewed Pertinent Ultrasound [...] operators who are performing tests using either eEye or Mirametrix systems and is limited to laboratories that [...] repeat. Fact Sheet for Healthcare Providers: https://www.f da.gov/media/073961/download Fact Sheet for Patients: https://www.fda.gov/media/445653 /download HABITS: Patient activity no restrictions, diet [...] previously recommended threshold of 160/110. Reference: PMID: [id number]. Blood pressures do increase as progresses and [...] preeclampsia prevention as is recommended by the [place] [employer]ne[employer] Committee Opinion No. 743. Higher doses (150mg) have been studied, but utilized a screening strategy that is not widely performed in the [place] (serum analytes and uterine artery Doppler), limiting the generalizability of the findings. We discussed the safety profile of nifedipine when used to treat chronic hypertension in , and patient information handout provided to her today: https://motherBel VinobaIcera.org/fact-sh eets/nifedipine/pdf/ We discussed the safety profile of beta blockers when used to treat chronic hypertension in : https://motherBel [place]Icera.org/fact-sh eets/labetalol/pdf/ Bariatric Surgery S/p Bariatric surgery It [...] aspirin vs 10.3% no aspirin, p=0.45) (PMBID: 96002655). Given well-established benefits baby aspirin for the prevention of preeclampsia, I recommend initiating baby aspirin even in the setting of history of Joe-en-Y surgery. Micronutrient Dosing Recommendations: Calcium: recommend 1000-1200mg daily; if deficient, recommend 1800-08952 mg PO daily in divided doses Vitamin [...] sooner if clinically indicated Follow up in [facility] in 4 weeks for anatomy and clinic follow-up DISPOSITION: At this point the patient is in complete care of her admitting interviewer. Patient does have ultrasound and office visit [...] procedures Referring and communicating with other health career development director (not separately reported) Documenting clinical information in the electronic or other health record Tatiana Yap MD Maternal- Medicine [facility] [address] [place] [address] [facility], the CDC, and other organizations representing maternal and public health professionals recommend that , , and lactating people and those considering receive the COVID-19 vaccination. Vaccination is the best method to reduce maternal and complications of SARS-CoV-2 infection. This document was created with [employer] technology. Though I make every effort to review the dictation as it is transcribed, on occasion the spoken word can be misinterpreted by the technology leading to inappropriate words, phrases, or sentences. This note is addressed to the requesting provider as a consultation for clinical guidance. Specific medical abbreviations are occasionally used and those are generally approved by the [place]?Board of?Obstetrics and?Gynecology?as well as?Maddison hodgson abbreviations. The above plan of care was based solely on the diagnoses for which a consultation was requested. ?More frequent testing may be indicated based on her other medical/obstetrical conditions. The management of other or medical conditions is beyond the scope of requested consultation and will continue to be followed by the primary admitting interviewer or primary care provider. Note to patient: [...] of the practitioner. documented in this encounter [facility] [employer] 10-12-2022 Evaluation note Encounter Date Diagnosis Assessment [...] take Sudafed and/or Mucinex for congestion. Take yvxx-vtm-adilu er Robitussin or Delsym for cough. Follow-up with your family physician if no improvement in 2 to 3 days. Off work tomorrow. Oct, Cough (ICD-10 - R05.9) Oct, Bronchitis (ICD-10 - J40) Acute bronchitis material was printed [employer] Other 10-19-2022 NotePatient Education Materials [facility]s: [id number] History of Present illness Narrative* Payal Richardson [...] and patient voices understanding documented in this [facility] Phone: [phone]) 637-285804-07-2022 Hospital Discharge instructions* Instructions* Hannah Zavaleta RN - 05/17/2021 Discharge Instructions for Bariatric Surgery You had a Laparoscopic Sleeve Gastrectomy (10559) surgery to treat obesity. Recovery from this [...] scheduled appointment, please call the office at [phone]. Call Your Doctor If Any of the [...] sent through Care Everywhere. * Enoxaparin (Lovenox) (Turkmen) * Video: How to Give Yourself an Anticoagulant (Blood Thinner) Shot (Turkmen) documented in this [facility] Phone: [phone]) 241-994303-23-2022 Hospital Discharge instructions* Instructions* Kendal Wilhelm APRN [...] Day of Surgery/Procedure As a patient at [facility] you can expect quality medical and nursing care that is centered on your individual needs. Our goal is to make your surgical experience as comfortableas possible Directions to the Surgery Center The surgery Center at [facility] is located in the Emergency Room parking lot on [facility] or there is additional parking across the street. The address is [address] [place] [address]. Please check in at the Surgery Center [...] on the day of surgery please contact [phone] or [phone] If you have any other questions regarding your procedure/surgery please call your surgeon's office. documented in this [facility] Phone: 1(501) 514-145703-23-2022 History of Present illness Narrative* Eloise Chi [...] syndrome) Under care of team 05/02/2021 pcp-Dr MelgozaQstdzp-[id number] visit april 2021 Patient was evaluated in PAT & anesthesia guidelines were applied. NPO guidelines, medication instructions and scheduled arrival time were reviewed with patient. Anesthesia contacted: no Medical or cardiac clearance ordered: no, medical clearance obtained. LAURA Garcia CNP 05/02/21 11:53 AM documented in this [facility] Phone: [phone]) 732-319510-25-2021 Evaluation note* Encounter Date Diagnosis Assessment Notes Treatment Notes Treatment Clinical Notes Nov, Contact with and (suspected) exposure to other viral communicable diseases (ICD-10 - Z20.828) Nov, Viral URI with cough (ICD-10 - J06.9) No COVID test completed at this time. Advised patient that will tx as viral URI. Supportive care as directed, increase fluids and rest, Tylenol/Motrin as directed, rx of [place] and Flonase as directed, cool mist humidifier, [...] care instructions given in writting by [facility] Care At Home document [employer] Other Evaluation note* Diagnosis LYNN (obstructive sleep apnea) Obstructive sleep apnea (adult) (pediatric) documented in this encounter [employer] Phone: [email or web address] note* Diagnosis S/P laparoscopic sleeve gastrectomy- Primary Post-op pain Other acute postoperative pain documented in this encounter [employer] Phone: [email or web address] noteNo assessment information available [facility] Work Phone: [email or web address] noteNo InformationNort Mashalot Other Evalucrwxv note* Diagnosis Hypertension affecting in second trimester- Primary 16 weeks gestation of Dichorionic diamniotic twin in second trimester H/O gastric sleeve [facility]* Diagnosis Hypertension affecting in second trimester 16 weeks gestation of Dichorionic diamniotic twin in second trimester [facility]* Diagnosis Hypertension affecting in second trimester- Primary Dichorionic diamniotic twin in second trimester [facility]* Diagnosis History of sleeve gastrectomy- Primary History of induced hypertension documented [facility] this encounter [facility]* Diagnosis Second trimester state, incidental Diabetes mellitus screening Screening for diabetes mellitus [facility] - [facility]* Type Description Date Medical History METABOLIC SYNDROME Medical History SYNCOPE Medical History anxiety Surgical History WISDOM TEETH Surgical History TONSILECTOMY Surgical History ENDOSCOPY AND COLONSCOPY Surgical History C section Hospitalization History see above [employer] Other History general Narrative - Reported* Type Description Date Medical History METABOLIC SYNDROME Medical History SYNCOPE Medical History anxiety Surgical History WISDOM TEETH Surgical History TONSILECTOMY Surgical History ENDOSCOPY AND COLONSCOPY Surgical History C section Surgical History gastric sleeve Hospitalization History see above [employer] Other Hiswibf general Narrative - Reported* Type Description Date Medical History METABOLIC SYNDROME Medical History SYNCOPE Medical History anxiety Surgical History WISDOM TEETH Surgical History TONSILECTOMY Surgical History ENDOSCOPY AND COLONSCOPY Surgical History C section Surgical History gastric sleeve Surgical History cholcystectomy 09/10/2022 Hospitalization History see above [employer] Other InstructionsNot on filedocumented in this encounter [...] EGD- GI SCHEDULED Patricia Mars, DO [address] [place] [address] [employer] [address] [place] [address] Referral ID Status Reason Start Date Expiration Date Visits Re quested Visits Authorized [id number] 1 1 [employer] Phone: Summary Purpose Family History No Family [...] Referred By Contact Referred To Contact [facility] Diagnoses LYNN (obstructive sleep apnea) Procedures Baseline Diagnostic Sleep Study Ike Moreno MD [address] [address] Specialty Diagnoses / Procedures Referred By Contac t Referred To Contact Diagnoses Hypertension affecting in second trimester 16 weeks gestation of Dichorionic diamniotic twin in second trimester Procedures ECG 12 lead Tatiana Yap MD [address] [place] [address] Referral ID Status Reason Start Date Expiration Date V isits Requested Visits Authorized [id number] Pending Review 02/07/2023 02/07/2024 1 1 Specialty Diagnoses / Procedures Referred By Contac t Referred To Contact Maternal and Medicine Diagnoses Hypertension affecting in second trimester Dichorionic diamniotic twin in second trimester Procedures MFM with or without consult Karoline Hopson MD [address] [place] [address] [facility]aternal [facility] [address] [place] [address] Referral ID Status Reason Start Date Expiration Date V isits Requested Visits Authorized [phone] Pending Review 03/05/2023 03/04/2024 1 1 Chief Complaint and Reason for Visit Chief Complaint Dysuria Additional Source Comments INFORMATION SOURCE (unrecogn ized section and content) DATE CREATED AUTHOR 07/31/2017 [facility] DATE CREATED AUTHOR AUTHOR'S ORGANIZ ATION 05/21/2021 Khushbu Landa [facility] DATE CREATED AUTHOR AUTHOR'S ORGANIZ ATION 12/03/2021 [facility] DATE CREATED AUTHOR AUTHOR'S ORGANIZ ATION 01/12/2022 [facility] DATE CREATED AUTHOR AUTHOR'S ORGANIZ ATION 02/11/2022 [facility] DATE CREATED AUTHOR AUTHOR'S ORGANIZ ATION 09/13/2022 [facility] DATE CREATED AUTHOR AUTHOR'S ORGANIZ ATION 02/09/2023 [facility] DATE CREATED AUTHOR AUTHOR'S ORGANIZ ATION 04/12/2023 [facility] DATE CREATED AUTHOR AUTHOR'S ORGANIZ ATION 05/29/2023 [facility] EPIC Reason for Visit (unrecogniz ed section and content) Status Reason Specialty Diagnoses / Procedures Referred By Contact Referred To Contact [facility] Diagnoses LYNN (obstructive sleep apnea) Procedures Baseline Diagnostic Sleep Study Ike Moreno MD [address] [facility] [address] [place] [address] Status Reason Specialty Diagnoses / Procedures Referre d By Contact Referred To Contact Diagnoses K21.9 GERD E66.9 OBESITY Procedures RI EGD TRANSORAL BIOPSY SINGLE/MULTIPLE EGD BIOPSY Patricia Mars, DO [address] [facility] [address] [place] [address] [facility] Reason Comments twin HX C/S HX gastric sleeve HX PTD Reason Comments Dichorionic Diamniotic Twin Hypertension Reason Comments Routine Visit Care Teams (unrecognized sec tion and content) Hand Shaper Relationship Specialty Start Date End Date Stephane Martin MD [address] [place], [place] [id number] PCP - General 05/17/20 Hand Shaper Relationship Specialty Start Date End Date Stephane Martin MD [address] [place], [place] [phone] PCP - General 05/17/20 Team Status: Inactive Member Role Status Dates Ale Shields APRN Attending Provider Active Hand Shaper Relationship Specialty Start Date End Date Margot Toure DO [address] [place] [address] PCP - General Family Medicine 01/03/23 Hand Shaper Relationship Specialty Start Date End Date Margot Toure DO [address] [place] [address] PCP - General Family Medicine 01/03/23 Hand Shaper Relationship Specialty Start Date End Date Margot Toure DO [address] [place] [address] PCP - General Family Medicine 01/03/23 Hand Shaper Relationship Specialty Start Date End Date Margot Toure DO [address] [place] [address] PCP - General Family Medicine 01/03/23 Hand Shaper Relationship Specialty Start Date End Date Margot Toure DO [address] [place] [address] PCP - General Family Medicine 01/03/23 Hand Shaper Relationship Specialty Start Date End Date Margot Toure DO [address] [place] [address] PCP - General Family Medicine 01/03/23 Hand Shaper Relationship Specialty Start Date End Date Margot Toure DO [address] [place] [address] PCP - General Family Medicine 07/01/22 Hand Shaper Relationship Specialty Start Date End Date Margot Toure DO [address] [place] [address] PCP - General Family Medicine 07/01/22 Ordered [...] Provider: Sharmin Sam APRN - [facility]) ceFAZolin (ANCEF) 3000 mg in sterile water [...] (NoRateChange - Provider: Sharmin Sam APRN - PHARMACIST TECHNICIAN)0856 (Anesthesia Volume Adjustment - Provider: Sharmin Sam APRN - PHARMACIST TECHNICIAN) 1631 (Stopped - Provider: Hannah Zavaleta RN) [...] to back table, 1000 ml. 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 [email or web address] provides no warranty or guarantee of the accuracy or completeness of information in this document.
--- NOTE | 2023-06-12 07:34 | US_ITS ---
[address] [address] Patient Name: JADEN VELÁSQUEZ MRN: [facility]:[id number] date: 1995 Sex: F Assigned Patient Location: [place] Current Patient Location: Accession/Order Number: [id number] Exam Date: 06/12/2023 07:35 Report Date: 06/12/2023 08:13 At the request of: ODILON ARNETT Procedure: US OB growth twins EXAMINATION: US OB growth twins HISTORY: Size Inconsistent With Dates O26.849 COMPARISON: No relevant comparison available. FINDINGS: Twin intrauterine gestation Baby A: Heart Rate: 160 bpm Amniotic Fluid Volume: Subjectively normal Position: Breech Maximum Vertical Pocket: 6.9 x 6.1 cm BIOMETRY: BPD: 8.29 cm, 33 weeks 2 days, 29% HC: 31.75 cm, 35 weeks 5 days, 58% AC: 30.62 cm, 34 weeks 4 days, 70% FL: 6.3 cm, 32 weeks 4 days, 10% EFW: 2329 g, 5 lbs. 2 oz., 44% FL/AC: 20.56 FL/BPD: 75.91 HC/AC: 1.04 GESTATIONAL AGE: Age by EDC: 34 weeks 0 days ANNAMARIA by EDC: 07/24/2023 Age by US: 34 weeks 0 days ANNAMARIA by US: 07/23/2023 Baby B: Heart Rate: 136.7 bpm Amniotic Fluid Volume: Subjectively normal Position: Cephalic Maximum Vertical Pocket: 5.7 x 8.7 cm BIOMETRY: BPD: 8.4 cm cm; 34 weeks 0 days; 46% HC: 30.9 cmcm; 34 weeks 4 days , 27% AC: 29.7 cm cm; 33 weeks 5 days, 45% FL: 6.6 cm cm; 34 weeks 1 days; 45.2 % % EFW: 2314.3 grams, 5 lbs. 2 oz., 42% FL/AC: 22.3 FL/BPD: 78.8 HC/AC: 1.0 GESTATIONAL AGE: Age by EDC: 34 weeks 0 days ANNAMARIA by EDC: 07/24/2023 Age by US: 34 weeks 1 day ANNAMARIA by US: 07/23/2023 US/US OB growth twins IMPRESSION: Normal interval growth. Twin intrauterine gestation Electronically authenticated by: JAMEEL BURGOS Date: 06/12/2023 08:13
[2023-06-12 08:56] LABS: Basophils Percent Auto 0.3 % (0.2-2.0); Eosinophils Absolute Auto 0.1 10^3/uL (0.0-0.7); Eosinophils Percent Auto 0.7 % (0.9-7.0); Hemoglobin 10.7 g/dL (12.0-16.0); Immature Granulocytes Abs Auto 0.08 10^3/uL (0.00-0.03); Immature Granulocytes Pct Auto 0.9 % (0.0-0.5); Lymphocytes Absolute Auto 1.8 10^3/uL (1.2-3.8); Lymphocytes Percent Auto 20.5 % (20.5-60.0); Mean Corpuscular HGB Conc 30.6 g/dL (29.9-35.2); Mean Corpuscular Hemoglobin 27.2 pg (26.7-34.0); Mean Corpuscular Volume 88.8 fL (81.0-99.0); Mean Platelet Volume 8.6 fL (9.5-13.5); Monocytes Absolute Auto 0.9 10^3/uL (0.3-0.8); Monocytes Percent Auto 9.8 % (1.7-12.0); Neutrophils Absolute Auto 5.8 10^3/uL (1.4-6.5); Neutrophils Percent Auto 67.8 % (43.0-75.0); Platelet Count 196 10^3/uL (150-450); Red Blood Count 3.94 10^6/uL (4.20-5.40); Red Cell Distribution Width 22.1 % (11.0-15.0); White Blood Count 8.6 10^3/uL (4.0-11.0)
== END 2023-06-12 07:00 | disposition home or self-care (01) ==
LOC: US 07:00
PROVIDERS: Visit Provider Obstetrics & Gynecology
DX: O26.843 Uterine size-date discrepancy, third trimester (principal); O99.013 Anemia complicating pregnancy, third trimester; O30.003 Twin pregnancy, unspecified number of placenta and unspecified number of amniotic sacs, third trimester; Z3A.34 34 weeks gestation of pregnancy
CPT/HCPCS: 36415; 59025; 76816; 85025; 96372; J0702

== ENCOUNTER 2023-06-12 07:25 | Outpatient (OUT) | payer MEDICAID, SELFPAY ==
--- OUTSIDE RECORDS SUMMARY | 2023-06-12 07:27 | XMS_ITS | CCD ---
Author Organization [facility] Care Team Providers [facility] Cashier Name Role Phone Neo Anderson Unavailable Unavailable Neo Anderson Unavailable Unavailable Jose Maria Ortega MD, [facility] Primary Care Provider DOC OKEEFE Referring Unavailable JOSE MARIA ORTEGA, STEPHANE Primary Care Unavailtina e DOC OKEEFE Referring Unavailable JOSE MARIA ORTEGA, [facility] Primary Care Unavailabl e IKE MORENO Referring Unavailable JOSE MARIA ORTEGA, [facility] Primary Care Unavailabl e Ale Harris Unavailable [...] FAMILY, PHYSICIAN Primary Care Unavailable Cornelius LAURA Lae Kishor Attending Provider Cornelius Ale Unavailable PATRICIA MARS Attending Unavailable PATRICIA MARS Admitting Unavailable YAW, MARGOT Primary Care Unavailable Lilia Daugherty Unavailable Yaw DO, Margot G Primary Care Provider [phone] YAW, MARGOT G Referring Unavailable YAW, MARGOT G Primary Care Unavailable TATIANA YAP Attending Unavailable YAW, MARGOT G Referring Unavailable YAW, MARGOT G Primary Care Unavailable Yaw DO, Margot G Primary Care Provider [phone] ZACARIASCHRISTIAN MORRISY R Referring Unavailable YAW, MARGOT [...] sources) Ibuprofen; Translations: [IBUPROFEN] Drug Allergy 09-19-2021 [facility] Medications Current Medications Medication Drug Class(es) [...] 30 mg oral tablet (1 source) Uncompetitive U-drtwvl-X-aspartate Receptor Antagonist, Sigma-1 Agonist Start: 2020 take 1 tablet by mouth every eight hours [place] DMT 30-30 MG 1 tablet Orally every [...] Iron (2 sources) Iron Active lactobacillus acidophilus [id number] unt / pectin 100 mg oral tablet [...] extended release oral tablet (2 sources) Uncompetitive B-dxekhl-U-asparta te Receptor Antagonist, Sigma-1 Agonist Start: 01-14-2022 [...] Interpretation Reference Range Facility [facility] UA (CLEAN/CATCH) HEATING AND COOLING TECHNICIAN/LISA RO IF IND.on 03-24-2023 BILIRUBIN URINE Negative NEGATIVE [facility] thcare BLOOD URINE Negative NEGATIVE [facility] Healthca re Clarity (U) CLEAR CLEAR [facility] Healthca re Color (U) YELLOW YELLOW [facility] Healthcar e GLUCOSE URINE UA Negative NEGATIVE mg/dL [facility] Interpretation and review of laboratory results Abnormal [facility] re Ketones Ql (U) TRACE Abnormal NEGATIVE mg/dL [facility] ealthcare Leukocyte esterase Test strip Ql (U) Negative NEGATIVE [facility] Healthcar e NITRITE URINE Negative NEGATIVE [facility] Health care pH (U) 6.0 [pH] 5.0 - 9.0 [facility] Healthcar e PROTEIN URINE TRACE NEG/TRACE mg/dL [facility] SPECIFIC GRAVITY URINE >=1.030 Abnormal 1.005 - 1.025 [facility] URINE MICROSCOPIC INDICATED NO [facility] UROBILINOGEN URINE 0.2 EU/dL 0.2 - 1.0 EU/dL [facility] Healthcar e Urinalysis macro (dipstick) panel (U)on 03-19-2023 Bilirubin, UA Negative Negative - 4(70) +++ mg/dL [facility] Blood, UA Negative Negative - 50 Krzysztof/mcL [facility] Clarity, UA Clear [facility] re Color, UA [facility] Glucose, UA Negative Negative - 1999(110) ++++ mg/dL [facility] Interpretation and review of laboratory results Abnormal [facility] re Ketones, UA Negative Negative - 160(16) ++++ mg/dL [facility] Leukocytes, UA Negative Negative - 500+++ Mckayla/mcL [facility] Nitrite, UA Negative Negative - Positive [facility] pH, UA 6.0 5 - 9 [facility] e Protein, UA Positive Negative - 1999(20) ++++ mg/dL [facility] Spec Grav, UA 1.030 1 - 1.03 [facility] Urobilinogen, UA 0.2 0.2 - 12 mg/dL [facility] Healthcar e CBC without diffon External Hematocrit Hct 33.7 [facility] Comment on above: See attached External Hemoglobin 10.9 [facility] Comment on above: See attached External MCH 29.0 [facility] alth System Comment on above: See attached External Mchc 32.3 [facility] ealth System Comment on above: See attached External Mcv 89.6 [facility] He alth System Comment on above: See attached External Mpv 9.7 [facility]th System Comment on above: See attached External Platelet Count 268 [facility] Comment on above: See attached External Rbc Count 3.76 [facility] Comment on above: See attached External Rdw 13.4 [facility] alth System Comment on above: See attached External Wbc Count 9.5 [facility] Comment on above: See attached [facility] Urine protein creatinine rat ioon 02-27-2023 Protein/Creatinine (U) [Mass ratio] 0.10 mg/g [facility] Comment on above: see attached [facility] Ultrasound - Officeon 2022 Radiology Study observation (narrative) [facility] HIV 1&2 AB/AG Screen (P24 AG )on 12-20-2022 HIV 1&2 AB/AG Non-Reactive [facility] Hepatitis B surface antigeno n 12-20-2022 Hepatitis B Surface Antigen Negative [facility] No Panel Informationon 12-20 [facility] Rubella IGG immune statuson 12-20-2022 Rubella immune IgG 1.96 [facility] Syphilis Total(Unknown Syphi lis Status)on 12-20-2022 Syphilis Non-Reactive [facility] Ultrasound - Officeon 2022 SEE SCANNED REPORt MANUAL LY TRANSCRIBED RESULTS [facility] COVID + FLU Quick Testingon 10-12-2022 SARS-CoV-2 (COVID-19) RNA BECCA+probe Ql (Unsp spec) negtaive [facility] [employer] Other COVID + FLU Quick Testing Negative [facility] [employer] Other Basic Metabolic Profon 09-11 Anion gap [Moles/Vol] 9 mmol/L Normal 9-17 [facility] Comment on above: Performed By: #### B FIFI, CBC, PT #### [facility] [address] [place] [phone] Nurse'S Aides Teacher: Anthony Aguilar MD Calcium [Mass/Vol] 8.8 mg/dL Normal 8.6-10.4 [facility] Comment on above: Performed By: #### B MP, CBC, PT #### [facility] [address] [place] [phone] [employer] Teacher: Anthony Aguilar MD Chloride [Moles/Vol] 106 mmol/L Normal 98-107 [facility] Comment on above: Performed By: #### B MP, CBC, PT #### [facility] [address] [place] [address] Nurse'S Aides Teacher: Anthony Aguilar MD CO2 [Moles/Vol] 23 mmol/L Normal 20-31 [facility] Comment on above: Performed By: #### B MP, CBC, PT #### [facility] [employer] [address] [place] [phone] Nurse'S Aides Teacher: Anthony Aguilar MD Creatinine [Mass/Vol] 0.7 mg/dL Normal 0.5-0.9 [facility] Comment on above: Performed By: #### B MP, CBC, PT #### [facility] [employer] [address] [place] [address] Nurse[employer] Aides Teacher: Anthony Aguilar MD GFR/1.73 sq M.predicted among non-blacks MDRD (S/P/Bld) [Vol rate/Area] mL/min/{1.73_m2} Normal >60 [facility] Comment on above: Result Comment: These [...] #### B FIFI, CBC, PT #### [facility] [employer] [address] [place] [address] Nurse[employer] Aides Teacher: Anthony Aguilar MD Glucose [Mass/Vol] 79 mg/dL Normal 70-99 [facility] Comment on above: Performed By: #### B FIFI, CBC, PT #### [facility] [employer] [address] [place] [address] Nurse'S Aides Teacher: Anthony Aguilar MD Potassium [Moles/Vol] 4.1 mmol/L Normal 3.7-5.3 [facility] Comment on above: Performed By: #### B MP, CBC, PT #### [facility] [employer] [address] [place] [address] Nurse'S Aides Teacher: Anthony Aguilar MD Sodium [Moles/Vol] 138 mmol/L Normal 135-144 [facility] Comment on above: Performed By: #### B MP, CBC, PT #### [facility] [employer] [address] [place] [address] Nurse[employer] Aides Teacher: Anthony Aguilar MD Urea nitrogen [Mass/Vol] 11 mg/dL Normal 6-20 [facility] Comment on above: Performed By: #### B MP, CBC, PT #### [facility] [employer] [address] [place] [address] Nurse[employer]S Aides Teacher: Anthony Aguilar MD CBCon 09-11-2022 Erythrocyte distribution width (RBC) [Ratio] 13.2 % Normal 11.8-14.4 [facility] Comment on above: Performed By: #### B MP, CBC, PT #### [facility] [employer] [address] [place] [phone] Nurse[employer]S Aides Teacher: Anthony Aguilar MD Hematocrit (Bld) [Volume fraction] 41.6 % Normal 36.3-47.1 [facility] Comment on above: Performed By: #### B MP, CBC, PT #### [facility] [employer] [address] [place] [address] Nurse[employer] Aides Teacher: Anthony Aguilar MD Hemoglobin (Bld) [Mass/Vol] 13.3 g/dL Normal 11.9-15.1 [facility] Comment on above: Performed By: #### B MP, CBC, PT #### [facility] [employer] [address] [place] [address] Nurse[employer]S Aides Teacher: Anthony Aguilar MD MCH (RBC) [Entitic mass] 28.3 pg Normal 25.2-33.5 [facility] Comment on above: Performed By: #### B MP, CBC, PT #### [facility] [employer] [address] [place] [address] Nurse[employer] Aides Teacher: Anthony Aguilar MD MCHC (RBC) [Mass/Vol] 32.0 g/dL Normal 28.4-34.8 [facility] Comment on above: Performed By: #### B MP, CBC, PT #### [address] [address] Nurse'S Aides Teacher: Anthony Aguilar MD MCV (RBC) [Entitic vol] 88.5 fL Normal 82.6-102.9 [facility] Comment on above: Performed By: #### B MP, CBC, PT #### [address] [phone] Nurse'S Aides Teacher: Anthony Aguilar MD NRBC Automated 0.0 per 100 WBC Normal 0.0 [facility] Comment on above: Performed By: #### B MP, CBC, PT #### [address] [address] Nurse'S Aides Teacher: Anthony Aguilar MD Platelet mean volume (Bld) [Entitic vol] 9.7 fL Normal 8.1-13.5 [facility] Comment on above: Performed By: #### B MP, CBC, PT #### [address] [address] Nurse'S Aides Teacher: Anthony Aguilar MD Platelets (Bld) [#/Vol] 276 10*3/uL Normal 138-453 [facility] Comment on above: Performed By: #### B MP, CBC, PT #### [address] [address] Nurse'S Aides Teacher: Anthony Aguilar MD RBC (Bld) [#/Vol] 4.70 10*6/uL Normal 3.95-5.11 [facility] Comment on above: Performed By: #### B MP, CBC, PT #### [address] [address] Nurse'S Aides Teacher: Anthony Aguilar MD WBC (Bld) [#/Vol] 7.4 10*3/uL Normal 3.5-11.3 [facility] Comment on above: Performed By: #### B MP, CBC, PT #### [facility] [place], [place] [id number] Nurse'S Aides Teacher: Anthony Aguilar MD PTon 09-11-2022 INR Coag (PPP) [Relative time] 1.0 {INR} Normal [facility] Comment on above: Result Comment: Therapeutic Range: Moderate Anticoagulant Intensity: INR = 2.0-3.0 High Anticoagulant Intensity: INR = 2.5-3.5 Performed By: #### B MP, CBC, PT #### [facility] [place], [place] [id number] Nurse'S Aides Teacher: Anthony Aguilar MD PT Coag (PPP) [Time] 12.9 s Normal 11.7-14.9 [facility] Comment on above: Performed By: #### B MP, CBC, PT #### [facility] [address] [place] [address] [id number] Nurse'S Aides Teacher: Anthony Aguilar MD Surgical Pathologyon 023 Surgical Pathology (NOTE) Path Number: [id number] -- Diagnosis -- GALLBLADDER, CHOLECYSTECTOMY: -CHRONIC CHOLECYSTITIS [...] lesions or periductal lymph nodes are identified. [employer] 1c. tm Microscopic Description Microscopic examination performed. Processing Lab: [address] [id number] Interpretation Performed at [address] [phone] SURGICAL PATHOLOGY CONSULTATION Patient Name: FINA WALKER [facility] Rec: [id number] [facility] [employer] ANATOMIC PATHOLOGY [address] [place], [place] [address] Normal [facility] Urine Cultureon 02-08-2022 Bacteria identified Cx Nom (U) Reason for Exam Dysuria Urine ORGANISM: Escherichia coli (O:ESCCOL) [place] Count >100,000 Aerobic LISA Charge (NMIC56) ---- [...] RESISTANT TO ALL B-LACTAM DRUGS. PERFORMED BY: [place] [id number] PATHOLOGIST YARD LOADER OPERATOR SAMIRA WEN M.D. Normal [facility] Comment on above: Performed By: #### C UU #### [place] [id number] [facility] VC CONSULT FOLLOWUPon 2021 VC CONSULT FOLLOWUP Patient: FINA WALKER Exam Date: 01/08/2022 : 1995 Gender:F Ordering : DR JAMEEL ABEBE M.D. Admission #: [id number] Family : Order #: [id number] CLICK HERE TO VIEW EXAM RADIOLOGY REPORT [...] Hinton M.D. on 01/08/2022 at 10:10 Normal [facility] VC EXT VENOUS RT LIMITEDon 1 03-10-2021 VC EXT VENOUS RT LIMITED Patient: FINA WALKER Exam Date: 01/08/2022 : 1995 Gender:F Ordering : DR JAMEEL ABEBE M.D. Admission #: [id number] Family : Order #: [id number] CLICK HERE TO VIEW EXAM RADIOLOGY REPORT [...] 10:05 Normal [facility] VC ENDOVENOUS ABL 1ST V RTon 12-31-2021 VC ENDOVENOUS ABL 1ST V RT Patient: FINA WALKER Exam Date: 12/31/2021 : 1995 Gender:F Ordering : DR JAMEEL ABEBE M.D. Admission #: [id number] Family : Order #: [id number] CLICK HERE TO VIEW EXAM RADIOLOGY REPORT [...] Abebe MD on 12/31/2021 at 11:06 Normal [facility] ED Clinical Summaryon 2021 ED Clinical Summary [facility] ? Urgent Care [address] [place] [address] Clinical Summary PERSON INFORMATION Name: VERNON WALKER Age: 26 Years Sex: FEMALE : 1995 MRN: Acct#: Visit Reason: OTTERBEIN PHYSICAL Arrival: 11/28/2021 10:39:56 Discharge: 11/28/2021 10:59:00 LOS: 000 00:20 Check In: 11/28/2021 10:39:56 Checkout: 11/28/2021 10:59:00 Address: [address] [place] [address] PCP: Provider, None PROVIDER INFORMATION VITALS INFORMATION Vital Sign Triage Latest Temperature Tympanic Temperature Temporal Artery Pulse Rate O2 Sat Respiratory Rate Blood Pressure / / MEDICAL INFORMATION Medications Given: Allergy Information: No known allergies PHYSICIAN DOCUMENTATION DISCHARGE INFORMATION: Discharge Disposition: Eloped Discharge Location: PATIENT EDUCATION INFORMATION Instructions: Follow-Up: DIAGNOSIS: Patient Understands: Comment: Normal [facility] ED Patient Summaryon 022 ED Patient Summary [facility] ? Urgent Care [address] [place] [address] PATIENT DISCHARGE INSTRUCTIONS Patient Information Name: VERNON WALKER Age: 26 Years Date of : 1995 Reason For Visit: OTTERBEIN PHYSICAL Arrival Time: 11/28/2021 10:39:56 Primary Care Physician: Provider, None Attending Physician: Nuno Bradshaw Comment: Patient Education Medication Information: The exam and treatment you received today in the [place] [facility] Emergency Department were for an urgent problem and are not intended as complete care. It is important for you to follow up with a doctor, nurse practitioner, or physician?s transport assistant for ongoing care. If your symptoms [...] can reach you if necessary. [facility] Emergency Department has provided you with a complete list of medications post discharge. Please inform your child care sitter/provider of your visit and for further instruction [...] for Disease Control and Prevention October 2013 [facility] VC CONSULT FOLLOWUPon 2021 VC CONSULT FOLLOWUP Patient: FINA WALKER Exam Date: 11/28/2021 : 1995 Gender:F Ordering : DR JAMEEL ABEBE M.D. Admission #: [id number] Family : Order #: [id number] CLICK HERE TO VIEW EXAM RADIOLOGY REPORT [...] Courtney Hinton M.D. on 11/28/2021 at 10:04 [facility] VC EXT VENOUS LT LIMITEDon 1 VC EXT VENOUS LT LIMITED Patient: FINA WALKER Exam Date: 11/28/2021 : 1995 Gender:F Ordering : DR JAMEEL ABEBE M.D. Admission #: [id number] Family : Order #: [id number] CLICK HERE TO VIEW EXAM RADIOLOGY REPORT [...] Hinton M.D. on 11/28/2021 at 09:45 Normal [facility] VC ENDOVENOUS ABL 1ST V LTon 11-22-2021 VC ENDOVENOUS ABL 1ST V LT Patient: FINA WALKER Exam Date: 11/22/2021 : 1995 Gender:F Ordering : DR JAMEEL ABEBE M.D. Admission #: [id number] Family : Order #: [id number] CLICK HERE TO VIEW EXAM RADIOLOGY REPORT PROCEDURE: VEIN CENTER ENDOVENOUS ABLATION FIRST VEIN LEFT GREAT SAPHENOUS VEIN COMPARISON: VC VENOUS REFLUX JOVANA LMT, 10/17/2021. INDICATIONS: Pain co-occurrent and due to varicose veins of bilateral legs I83.813 OPERATIVE REPORT: The risks and benefits of the procedure had been previously discussed, and were rediscussed at length. Informed written consent was obtained by nc and Christopher Zavala assisted. Time out procedure [...] Jameel Abebe MD on 11/22/2021 at 09:04 [facility] VC COMP CONSULTATIONon 10-17 VC COMP CONSULTATION Patient: FINA WALKER Exam Date: 10/17/2021 : 1995 Gender:F Ordering : DR JAMEEL ABEBE M.D. Admission #: [id number] Family : Order #: [id number] CLICK HERE TO VIEW EXAM RADIOLOGY REPORT [...] arterial disease 5. CEAP: C2, EC, AP, [place] PLAN: 1. Continued use of compression stockings [...] 12:46 Normal [facility] Basic Metabolic Panelon 04-0 Anion gap [Moles/Vol] 8 mmol/L Low 9 - 17 mmol/L [facility] Calcium [Mass/Vol] 8.6 mg/dL 8.6 - 10. 4 mg/dL [facility] Chloride [Moles/Vol] 106 mmol/L 98 - 107 mmol/L [facility] CO2 [Moles/Vol] 23 mmol/L 20 - 31 mmol/L [facility] Creatinine [Mass/Vol] 0.67 mg/dL 0.50 - 0.90 mg/dL [facility] GFR >60 >60 mL/min [facility] GFR Non- >60 >60 mL/min [facility] GFR/1.73 sq M.predicted MDRD (S/P/Bld) [Vol rate/Area] [facility] Comment on above: Average GFR for 20-2 9 years old: 116 mL/min/1.73sq m Chronic Kidney Disease: <60 mL/min/1.73sq m Kidney failure: <15 mL/min/1.73sq m eGFR calculated using average adult body mass. Additional eGFR calculator available at: http://www.TriggerMail.Seedrs/multiple_crcl_2012.htm Glucose [Mass/Vol] 83 mg/dL 70 - 99 mg/dL [facility] [employer] Interpretation and review of laboratory results Abnormal [facility] Potassium [Moles/Vol] 3.9 mmol/L 3.7 - 5.3 mmol/L [facility] Sodium [Moles/Vol] 137 mmol/L 135 - 144 mmol/L [facility] Urea nitrogen (BldV) [Mass/Vol] 7 mg/dL 6 - 20 mg/dL [facility] CBCon 05-17-2021 Hematocrit (Bld) [Volume fraction] 34.4 % Low 36.3 - 47.1 % [facility] Hemoglobin.gastroin testinal spec 1 Ql (Stl) 11.0 g/dL Low 11.9 - 15.1 g/dL [facility] Interpretation and review of laboratory results Abnormal [facility] MCH (RBC) [Entitic mass] 27.2 pg 25.2 - 33.5 pg [facility] MCHC (RBC) [Mass/Vol] 32.0 g/dL 28.4 - 34.8 g/dL [facility] MCV (RBC) [Entitic vol] 85.1 fL 82.6 - 102.9 fL [facility] NRBC Automated 0.0 0.0 per 100 WBC [facility] Platelet distribution width (Bld) [Ratio] 14.1 % 11.8 - 14.4 % [facility] Platelet mean volume (Bld) [Entitic vol] 10.1 fL 8.1 - 13.5 fL [facility] Platelets (Bld) [#/Vol] 302 10*3/uL [facility] RBC (Bld) [#/Vol] 4.04 10*6/uL 3.95 - 5.1 1 m/uL [facility] WBC (Bld) [#/Vol] 13.7 10*3/uL High [facility] SURGICAL PATHOLOGY REPORTon 05-17-2021 Surgical Pathology Report [...] x 0.5 cm piece of adipose tissue. [employer] 1cs. tm Microscopic Description 1 H&E reviewed. Microscopic examination performed. SURGICAL PATHOLOGY CONSULTATION Patient Name: FINA WALKER [facility] Rec: [id number] Path Number: [id number] [facility] ANATOMIC PATHOLOGY [address] [place], [place] [address] [facility] [place] [employer] Basic Metabolic Panelon Anion gap [Moles/Vol] 10 mmol/L 9 - 17 mmol/L [facility] [employer] Calcium [Mass/Vol] 8.7 mg/dL 8.6 - 10. 4 mg/dL [facility] [employer] Chloride [Moles/Vol] 105 mmol/L 98 - 107 mmol/L [facility] [employer] CO2 [Moles/Vol] 23 mmol/L 20 - 31 mmol/L [employer] [facility] [facility] Creatinine [Mass/Vol] 0.75 mg/dL 0.50 - 0.90 mg/dL [employer] [facility] GFR >60 >60 mL/min [facility] [employer] GFR Non- >60 >60 mL/min [facility] [employer] GFR/1.73 sq M.predicted MDRD (S/P/Bld) [Vol rate/Area] [facility] Comment on above: Average GFR for 20-2 9 years old: 116 mL/min/1.73sq m Chronic Kidney Disease: <60 mL/min/1.73sq m Kidney failure: <15 mL/min/1.73sq m eGFR calculated using average adult body mass. Additional eGFR calculator available at: http://www.TowerJazz/multiple_crcl_2011.htm Glucose [Mass/Vol] 132 mg/dL High 70 - 99 mg/dL [facility] [employer] Interpretation and review of laboratory results Abnormal [employer] Potassium [Moles/Vol] 3.5 mmol/L Low 3.7 - 5.3 mmol/L [facility] [employer] Sodium [Moles/Vol] 138 mmol/L 135 - 144 mmol/L [facility] [employer] Urea nitrogen (BldV) [Mass/Vol] 10 mg/dL 6 - 20 mg/dL [facility] CBC without Diffon 2 Hematocrit (Bld) [Volume fraction] 38.8 % 36.3 - 47.1 % [facility] Hemoglobin.gastroin testinal spec 1 Ql (Stl) 12.6 g/dL 11.9 - 15.1 g/dL [facility] Interpretation and review of laboratory results Abnormal [employer] [facility] MCH (RBC) [Entitic mass] 27.2 pg 25.2 - 33.5 pg [facility] MCHC (RBC) [Mass/Vol] 32.5 g/dL 28.4 - 34.8 g/dL [facility] MCV (RBC) [Entitic vol] 83.8 fL 82.6 - 102.9 fL [facility] NRBC Automated 0.0 0.0 per 100 WBC [facility] Platelet distribution width (Bld) [Ratio] 13.9 % 11.8 - 14.4 % [facility] Platelet mean volume (Bld) [Entitic vol] 9.8 fL 8.1 - 13.5 fL [facility] Platelets (Bld) [#/Vol] 340 10*3/uL [facility] RBC (Bld) [#/Vol] 4.63 10*6/uL 3.95 - 5.1 1 m/uL [facility] WBC (Bld) [#/Vol] 15.0 10*3/uL High [facility] POC Glucose Fingerstickon Glucose [Mass/Vol] 77 mg/dL 65 - 105 mg/dL [facility] POCT urine pregnancyon 05-16 Beta HCG ( test) Ql (U) Negative NEGATIVE [facility] Comment on above: Specimens with hCG l evels near the threshold of the test (25 mIU/mL) may give a negative or indeterminate result. In such cases, another test should be performed with a new specimen in 48-72 hours. If early is suspected clinically in this setting, correlation with quantitative serum b-hCG level is suggested. [facility] [id number]-1xe 05-15-2021 SARS-CoV-2 (COVID-19) RNA BECCA+probe Ql (Unsp spec) Normal [facility] Comment on above: Performed By: #### C OVID #### [facility] [address] [place] [address] Nurse'S Aides Teacher: Anthony Aguilar MD [facility] [address] [place] [address] Nurse'S Aides Teacher: Jameel Lawler MD SARS-CoV-2 (COVID-19) RNA BECCA+probe Ql (Unsp spec) Not detected Normal [facility] Comment on above: Result Comment: The specimen is NEGATIVE for SARS-CoV-2, the novel coronavirus associated with COVID-19. A negative result does not rule out COVID-19. Lucrecia SARS-CoV-2 for use on the [employer] is a real-time RT-PCR test intended [...] this assay. Fact sheet for Healthcare Providers: https://www.fda.gov/media/818331/download Fact sheet for Patients: https://www.fda.gov/media/791186/download METHODOLOGY: RT-PCR Performed By: #### C OVID #### [facility] [address], [place] [id number] Nurse'S Aides Teacher: Anthony Aguilar MD [facility] [address] [place] [address] [place] [address] Nurse'S Aides Teacher: Jameel Lawler MD [id number] 05-14-2021 SARS-CoV-2 (COVID-19) RNA BECCA+probe Ql (Unsp spec) .NASOPHARYNGEAL SWAB Normal [facility] Comment on above: Performed By: #### C OVID #### [facility] [address] [place], [place] [id number] Nurse'S Aides Teacher: Anthony Aguilar MD [facility] [address] [place] [address] [place] [address] Nurse'S Aides Teacher: Jameel Lawler MD Nicotine, Bloodon 05-05-2021 3-BH-Hrjqpvdw <2 ng/mL [facility] Cotinine <2 ng/mL [facility] Nicotine <2 ng/mL [facility] Comment on above: (NOTE) Consistent [...] developed and its performance characteristics determined by [facility]. It has not been cleared or approved by the US Food and Drug Administration. This test was performed in a CLIA certified laboratory and is intended for clinical purposes. Performed By: [facility] [address] [place] [id number] Subgrade Tester: Yara Rodriguez MD [facility] EKG 12 LeadOrdered By: Diaz Conway on 05-03-2021 Atrial Rate 72 BPM [facility] Work Phone: P [place] 45 degrees el? Phone: P-R Interval 142 ms el? Phone: Q-T Interval 376 ms [facility] Work Phone: QRS Duration 100 ms el? Phone: QTc Calculation (Bazett) 411 ms el? Phone: R [place] 22 degrees el? Phone: T [place] 32 degrees el? Phone: Ventricular Rate 72 BPM [employer] Work Phone: el? Phone: EKG 12 Leadon 05-03-2021 Normal sinus rhythm Normal ECG No previous ECGs available [facility] ST Diaz Romero MD - 05/03/2021 Normal sinus rhythm Normal ECG No previous ECGs available [facility] Work Phone: APTTon 05-02-2021 aPTT Coag (Bld) [Time] 25.0 s [facility] Comment on above: IV Heparin Therapy Range: 48.6-77.8 Basic Metabolic Panelon 04-11 Anion gap [Moles/Vol] 15 mmol/L 9 - 17 mmol/L [facility] Calcium [Mass/Vol] 9.8 mg/dL 8.6 - 10. 4 mg/dL [facility] Chloride [Moles/Vol] 102 mmol/L 98 - 107 mmol/L [facility] CO2 [Moles/Vol] 21 mmol/L 20 - 31 mmol/L [facility] Creatinine [Mass/Vol] 0.55 mg/dL 0.50 - 0.90 mg/dL [facility] GFR >60 >60 mL/min [facility] GFR Non- >60 >60 mL/min [facility] GFR/1.73 sq M.predicted MDRD (S/P/Bld) [Vol rate/Area] [facility] Comment on above: Average GFR for 20-2 9 years old: 116 mL/min/1.73sq m Chronic Kidney Disease: <60 mL/min/1.73sq m Kidney failure: <15 mL/min/1.73sq m eGFR calculated using average adult body mass. Additional eGFR calculator available at: http://www.TriggerMail.Seedrs/multiple_crcl_2011.htm Glucose [Mass/Vol] 85 mg/dL 70 - 99 mg/dL [facility] Potassium [Moles/Vol] 4.5 mmol/L 3.7 - 5.3 mmol/L [facility] Sodium [Moles/Vol] 138 mmol/L 135 - 144 mmol/L [facility] Urea nitrogen (BldV) [Mass/Vol] 11 mg/dL 6 - 20 mg/dL [facility] [facility] 05-02-2021 Hematocrit (Bld) [Volume fraction] 41.0 % 36.3 - 47.1 % [facility] Hemoglobin.gastroin testinal spec 1 Ql (Stl) 12.9 g/dL 11.9 - 15.1 g/dL [facility] MCH (RBC) [Entitic mass] 26.9 pg 25.2 - 33.5 pg [facility] MCHC (RBC) [Mass/Vol] 31.5 g/dL 28.4 - 34.8 g/dL [facility] MCV (RBC) [Entitic vol] 85.6 fL 82.6 - 102.9 fL [facility] [employer] NRBC Automated 0.0 0.0 per 100 WBC [facility] Platelet distribution width (Bld) [Ratio] 13.7 % 11.8 - 14.4 % [facility] Platelet mean volume (Bld) [Entitic vol] 9.8 fL 8.1 - 13.5 fL [facility] Platelets (Bld) [#/Vol] 380 10*3/uL [facility] RBC (Bld) [#/Vol] 4.79 10*6/uL 3.95 - 5.1 1 m/uL [facility] WBC (Bld) [#/Vol] 11.2 10*3/uL [facility] No Panel Informationon 05-02 [employer] [facility] Protime-INRon 05-02-2021 INR Coag (Bld) [Relative time] 1.0 {INR} [facility] Comment on above: Therapeutic Range: Moderate Anticoagulant Intensity: INR = 2.0-3.0 High Anticoagulant Intensity: INR = 2.5-3.5 PT Coag (PPP) [Time] 10.6 s [facility] XR CHEST (2 VW)on 05-02-2021 No acute process. [facility] RIS CONSOLIDATED EXAMINATION: TWO XRAY VIEWS OF THE CHEST 05/02/2021 11:20 am COMPARISON: None. HISTORY: ORDERING SYSTEM PROVIDED HISTORY: preop, obesity TECHNOLOGIST PROVIDED HISTORY: preop, obesity FINDINGS: Heart is normal in size. Lungs are clear. No free air. [facility] RIS CONSOLIDATED Jose Juan Florez Jr. , DO - 05/02/2021 EXAMINATION: TWO XRAY VIEWS OF THE CHEST 05/02/2021 11:20 am COMPARISON: None. HISTORY: ORDERING SYSTEM PROVIDED HISTORY: preop, obesity TECHNOLOGIST PROVIDED HISTORY: preop, obesity FINDINGS: Heart is normal in size. Lungs are clear. No free air. IMPRESSION: No acute process. el? Phone: Radiology Study observation (narrative) el? Phone: XR CHEST (2 VW)Ordered By: Satnos Florez on 05-02-2021 [facility] [id number] 12-05-2020 SARS-CoV-2 (COVID-19) RNA BECCA+probe Ql (Unsp spec) Normal [facility] Comment on above: Performed By: #### C OVID #### [facility] [address], [place] [id number] Nurse'S Aides Teacher: Anthony Aguilar MD [facility] [address] [place] [address] Nurse'S Aides Teacher: Jameel Lawler MD SARS-CoV-2 (COVID-19) RNA BECCA+probe Ql (Unsp spec) Not detected Normal NOTDET [facility] Comment on above: Result Comment: The specimen is NEGATIVE for SARS-CoV-2, the novel coronavirus associated with COVID-19. A negative result does not rule out COVID-19. Lucrecia SARS-CoV-2 for use on the [employer]/8800 Systems is a real-time RT-PCR test intended [...] this assay. Fact sheet for Healthcare Providers: https://www.fda.gov/media/376038/download Fact sheet for Patients: https://www.fda.gov/media/004087/download METHODOLOGY: RT-PCR Performed By: #### C OVID #### [facility] [address], [place] [id number] Nurse'S Aides Teacher: Anthony Aguilar MD [facility] [address] [place] [address] Nurse'S Aides Teacher: Jameel Lawler MD [id number] 12-04-2020 SARS-CoV-2 (COVID-19) RNA BECCA+probe Ql (Unsp spec) .NASOPHARYNGEAL SWAB Normal [facility] Comment on above: Performed By: #### C OVID #### [facility] [address] [place], [place] [id number] Nurse'S Aides Teacher: Anthony Aguilar MD [facility] [address] [place] [address] Nurse'S Aides Teacher: Jameel Lawler MD Vital Signs Date Time Vital Sign Value Performing Clinician Facility 03-19-2023 11:06-0500 Body mass index (BMI) [Ratio] 36.34 kg/m2 Eloise BURROUGHS Work Phone: [facility] 03-19-2023 11:06-0500 Body weight 105.23 kg Eloise BURROUGHS Work Phone: [facility] 03-19-2023 11:06-0500 Diastolic blood pressure 78 mm[Hg] Eloise BURROUGHS Work Phone: [facility] 03-19-2023 11:06-0500 Systolic blood pressure 124 mm[Hg] Eloise BURROUGHS Work Phone: [facility] 03-05-2023 10:48-0500 Body mass index (BMI) [Ratio] 35.08 kg/m2 Karoline Hopson MD Work Phone: [facility] 03-05-2023 10:48-0500 Body weight 101.61 kg Karoline Hopson MD Work Phone: [facility] 03-05-2023 10:48-0500 Diastolic blood pressure 75 mm[Hg] Karoline Hopson MD Work Phone: [facility] 03-05-2023 10:48-0500 Heart rate 89 /min Karoline Hopson MD Work Phone: [facility] [employer] 03-05-2023 10:48-0500 Systolic blood pressure 126 mm[Hg] Karoline Hopson MD Work Phone: [facility] 02-07-2023 13:34-0500 Body height 170.2 cm Tatiana Yap MD [facility] 02-07-2023 13:34-0500 Body mass index (BMI) [Ratio] 34.14 kg/m2 Tatiana Yap MD [facility] 02-07-2023 13:34-0500 Body weight 98.88 kg Tatiana Yap MD [facility] 02-07-2023 13:34-0500 Diastolic blood pressure 83 mm[Hg] Tatiana Yap MD [facility] 02-07-2023 13:34-0500 Heart rate 76 /min [facility]iana [facility]ap [facility] 02-07-2023 13:34-0500 Systolic blood pressure 126 mm[Hg] Tatiana Yap MD [facility] 10-12-2022 10:10-0400 Body height 170.18 cm Lilia Daugherty Other [facility] [employer] Other 10-12-2022 10:10-0400 Body mass index (BMI) [Ratio] 32.86 kg/m2 Lilia Daugherty Other [facility] Other 10-12-2022 10:10-0400 Body temperature 99 [degF] Lilia Daugherty Other [facility] Other 10-12-2022 10:10-0400 Body weight 95.17 kg Lilia Daugherty Other [facility] Other 10-12-2022 10:10-0400 Diastolic blood pressure 74 mm[Hg] Lilia Daugherty Other [facility] Other 10-12-2022 10:10-0400 SaO2% (BldA) [Mass fraction] 98 % Lilia Daugherty Other [facility] Other 10-12-2022 10:10-0400 Systolic blood pressure 118 mm[Hg] Lilia Daugherty Other [facility] Other 05-17-2021 15:52-0400 Body temperature 98.49 [degF] Patricia Mars [employer] Work Phone: [facility] 05-17-2021 15:52-0400 Diastolic blood pressure 97 mm[Hg] Patricia Mars [employer] Work Phone: [facility] 05-17-2021 15:52-0400 Heart rate 70 /min Patricia HuertaXO1 Work Phone: [facility] 05-17-2021 15:52-0400 Respiratory rate 18 /min Patricia Mars [employer] Work Phone: [facility] 05-17-2021 15:52-0400 SaO2% (BldA) [Mass fraction] 99 % Patricia Mars [employer] Work Phone: [facility] 05-17-2021 15:52-0400 Systolic blood pressure 138 mm[Hg] Patricia Mars [employer] Work Phone: [facility] 05-16-2021 06:06-0400 Body mass index (BMI) [Ratio] 43.16 kg/m2 Patricia Mars [employer] Work Phone: [facility] 05-16-2021 06:06-0400 Body weight 125 kg Patricia Mars [employer] Work Phone: [facility] 05-16-2021 05:57-0400 Body height 170.2 cm Patricia Mars DO Work Phone: [facility] 05-02-2021 10:35-0400 Body height 170.2 cm Stvz 1 [facility] 05-02-2021 10:35-0400 Body mass index (BMI) [Ratio] 44.95 kg/m2 Stvz 1 [facility] 05-02-2021 10:35-0400 Body temperature 97.2 [degF] Stvz 1 [facility] 05-02-2021 10:35-0400 Body weight 130.18 kg Stvz 1 [facility] 05-02-2021 10:35-0400 Diastolic blood pressure 85 mm[Hg] Stvz 1 [facility] 05-02-2021 10:35-0400 Heart rate 66 /min Stvz 1 [facility] 05-02-2021 10:35-0400 Respiratory rate 18 /min Stvz 1 [facility] 05-02-2021 10:35-0400 SaO2% (BldA) [Mass fraction] 99 % Stvz 1 [facility] 05-02-2021 10:35-0400 Systolic blood pressure 122 mm[Hg] Stvz 1 [facility] 12-04-2020 17:00-0400 Body height 170.18 cm Ale Ginty Other [facility] [employer] [facility] Other 12-04-2020 17:00-0400 Body mass index (BMI) [Ratio] 43.85 kg/m2 Ale Ginty Other [facility] Other 12-04-2020 17:00-0400 Body temperature 97.4 [degF] Ale Ginty Other [facility] Other 12-04-2020 17:00-0400 Body weight 127.01 kg Ale Ginty Other [facility] [employer] [facility] [employer] Other 12-04-2020 17:00-0400 SaO2% (BldA) [Mass fraction] 99 % Ale Ginty Other [facility] [employer] Other Encounters Encounter Date Encounter Type Care Provider Facility Start: 05-28-2023 End: 05-28-2023 ambulatory NIGEL REGALADOO Not Available Start: 05-15-2023 End: 05-15-2023 ambulatory ELOISE DOMINGUEZ Not Available Start: 05-13-2023 End: 05-14-2023 ambulatory KIMMY Snow MACHUCA Not Available Start: 05-01-2023 End: 05-01-2023 ambulatory NIGEL ZACARIAS Not Available Start: 04-10-2023 End: 04-10-2023 ambulatory NIGEL ZACARIAS Not Available Start: 04-09-2023 End: 04-10-2023 ambulatory NIGEL REGALADOO [facility] Start: 03-24-2023 Clinisync Result Encounter [...] Only Laila Castillo RN [facility] at [facility] Comment on above: Hypertension affecti ng in second trimester (Primary Dx); Dichorionic diamniotic twin in second trimester Start: 03-05-2023 End: 03-05-2023 Office outpatient visit 15 minutes Karoline Hopson MD Work Phone: [facility] Comment on above: History of sleeve ga strectomy (Primary Dx); History of induced hypertension Start: 02-27-2023 Orders Only Sivan Martinez RN Ma tern[facility]- Medicine at [facility] Comment on above: Hypertension affecti ng in second trimester; 16 weeks gestation of ; Dichorionic diamniotic twin in second trimester Start: 02-26-2023 End: 02-26-2023 ambulatory NIGEL ZACARIAS Not Available Start: 02-24-2023 Telephone encounter Sangita Thomas RN [facility] Start: 02-07-2023 End: 02-07-2023 ambulatory TATIANA JANEL [facility] Start: 02-07-2023 End: 02-07-2023 Office consultation new/estab patient 60 min Tatiana Yap MD Work Phone: [facility] Comment on above: Hypertension affecti ng in second trimester (Primary Dx); 16 weeks gestation of ; Dichorionic diamniotic twin in second trimester; H/O gastric sleeve Start: 02-05-2023 End: 02-05-2023 ambulatory NIGEL ZACARIAS Not Available Start: 02-05-2023 Chart abstracting Tatiana Yap MD Work Phone: [facility] Start: 02-04-2023 End: 02-04-2023 ambulatory MARGOT G YAW Not Available Start: 01-15-2023 End: 01-15-2023 ambulatory NIGEL ZACARIAS Not Available Start: 01-07-2023 End: 01-07-2023 ambulatory MARGOT G YAW Not Available Start: 12-20-2022 End: 12-21-2022 ambulatory NIGEL ZACARIAS Not Available Start: 10-12-2022 End: 10-12-2022 ambulatory Lilia Daugherty Other [facility] Other Start: 10-12-2022 Office outpatient vi sit 15 minutes Lilia Daugherty [facility] [place] Start: 09-11-2022 End: 09-11-2022 ambulatory PATRICIA Rucker [facility] Start: 02-10-2022 End: 02-10-2022 ambulatory Ale Shields Other [facility] Other Start: 02-10-2022 Telephone encounter Ale Shields [facility] [address] Start: 02-08-2022 End: 02-08-2022 ambulatory Ale Kishor Shields Facility:[facility] Start: 02-08-2022 End: 02-08-2022 ambulatory INVERFORM MACHINE OPERATOR Ale Shields Work Phone: [facility] Work Phone: Start: 02-08-2022 End: 02-08-2022 Departed Referred INVERFORM MACHINE OPERATOR Ale Shields Work Phone: [facility] [place] Work Phone: Start: 01-08-2022 End: 01-09-[address] JAMEEL ABEBE Facility:[facility] Start: 12-31-2021 End: 01-01-[address] JAMEEL ABEBE Facility:[facility] Start: 11-28-2021 End: 11-28-2021 ambulatory None Provider Facility:[facility] Start: 11-28-2021 End: 11-29-2021 ambulatory [...] 05-14-2021 End: 05-19-2021 ambulatory CYN OKEEFE [facility] Start: 05-02-2021 End: 05-06-2021 Subsequent hospital visit by physician Dwight Pat Rm 1 [facility] Pre-Admit Testing Start: 12-04-2020 End: 12-09-2020 ambulatory CYN OKEEFE [facility] Start: 12-04-2020 Office outpatient vi sit 15 minutes Ale Harris [facility] [place] Start: 10-20-2020 End: 10-20-2020 Subsequent hospital visit by physician Patricia Mars DO Work Phone: [facility] [place] Start: 09-06-2020 End: 09-07-2020 [facility]ulatory [facility] Start: 09-06-2020 End: 09-06-2020 Subsequent hospital visit by physician [facility] Rm 1 [facility] Comment on above: LYNN (obstructive sle ep apnea) Start: 05-28-2017 End: 05-29-2017 Ambulatory Neo Anderson Facility:[id number] Procedures Date Procedure Procedure Detail Performing Clinician Start: 03-24-2023 [facility]H UA (CLEAN/CATCH) HEATING AND COOLING TECHNICIAN/MICRO IF IND. Nigel Zacarias DO Work Phone: [...] Start: 05-02-2021 Assay of nicotine Sim Rucker [employer] Work Phone: Start: 05-02-2021 Basic metabolic pane l calcium total Patricia Mars DO Work Phone: Start: 05-02-2021 Radiologic exam ches t 2 views Patricia Mars DO Work Phone: Start: 05-02-2021 Ecg routine ecg w/le ast 12 lds i&r only Patricia Mars [employer] Work Phone: Start: 06-14-2020 Microscopic observat ion [Identifier] in Cervix by Cyto stain Tatiana Yap MD Work Phone: Plan of Treatment Date Care Activity Detail Author Start: 03-05-2024 Adult BMI Screening Adult BMI Screen ing [facility] Start: 03-05-2024 Tobacco Screening Tobacco Screening [facility] Start: 03-05-2024 End: 03-05-2024 US MFM with or without consult US MFM with or without consult Imaging Routine Hypertension affecting in second trimester Dichorionic diamniotic twin in second trimester Expected: 03/05/2024 (Approximate), Expires: 03/05/2024 [employer] Work Phone: Comment on above: Expected: 03/05/2024 (Approximate), Expires: 03/05/2024 Start: 02-08-2024 Adult BMI Screening Adult BMI Screen ing [facility] Start: 02-08-2024 Tobacco Screening Tobacco Screening [facility] Start: 01-04-2024 Adult BMI Screening Adult BMI Screen ing [facility] Start: 01-04-2024 Tobacco Screening Tobacco Screening [facility] Start: 08-11-2023 DTaP,Tdap and Td Vaccines (7 - Td or Tdap) DTaP,Tdap and Td Vaccines (7 - Td or Tdap) [facility] Start: 08-11-2023 DTaP/Tdap/Td vaccine (7 - Td or Tdap) DTaP/Tdap/Td vaccine (7 - Td or Tdap) [facility] Start: 08-10-2023 Influenza vaccination Influenza Vacc ine (#1) [facility] Comment on above: Postponed from 10/11 (Patient Refused) Start: 06-15-2023 Screening for malign ant neoplasm of cervix Pap Smear [facility] Start: 04-10-2023 End: 04-10-2023 Patient encounter procedure [facility] Start: 03-19-2023 End: 03-19-2024 CBC panel - Blood by Automated count CBC Lab Routine Diabetes mellitus screening Expected: 03/19/2023 (Approximate), Expires: 03/19/2024 [facility] Work Phone: Comment on above: Expected: 03/19/2023 (Approximate), Expires: 03/19/2024 Start: 03-19-2023 End: 03-19-2024 Measurement of glucose 1 hour after glucose challenge for glucose tolerance test Glucose tolerance, 1 hour Lab Routine Diabetes mellitus screening Expected: 03/19/2023 (Approximate), Expires: 03/19/2024 [facility] Comment on above: Expected: 03/19/2023 (Approximate), Expires: 03/19/2024 Start: 03-05-2023 End: 03-05-2023 Patient encounter procedure 03/05/2023 11:30 AM EST Office Visit Maternal- Medicine at [facility] [address] [place] [address] Karoline Hopson MD [address] [place] [address] [facility]- [facility] at [facility] Start: 03-05-2023 End: 03-05-2023 Patient encounter procedure 03/05/2023 9:30 AM EST Appointment [facility] [address] [place] [address] [facility] Start: 02-07-2023 End: 02-07-2023 Patient encounter procedure [facility] Start: 10-11-2022 Influenza vaccination Influenza Vacc ine [facility] Start: 09-19-2022 Adult BMI Follow Up Plan Adult BMI Follow Up Plan [facility] Start: 02-08-2022 Bacteria identified in Urine by Culture Urine Culture [facility] Start: 01-08-2022 Hemoglobin A1c measurement A1C test (Diabetic or Prediabetic) [facility] Start: 10-11-2021 Influenza vaccination Flu vacc ine (Season Ended) [facility] Start: 07-14-2021 Hemoglobin A1c measurement A1C test (Diabetic or Prediabetic) [facility] Work Phone: Start: 06-18-2021 End: 06-18-2021 Patient encounter procedure 06/18/2021 Office Visit Bariatrics Deann Navarro, INVERFORM MACHINE OPERATOR - DRAINAGE DESIGN COORDINATOR [address] [place] [phone] [facility] Start: 05-24-2021 End: 05-24-2021 Patient encounter procedure 05/24/2021 Office Visit Bariatrics Patricia Mars DO [address] [place] [address] [facility] Surg Start: 05-16-2021 End: 05-16-2021 Admission to same day surgery center 05/16/2021 Surgery IP Unit Patricia Mars DO [address] [place] [address] XI ROBOTIC LAPAROSCOPIC GASTRECTOMY SLEEVE , LIVER BIOPSY, EGD- GI SCHEDULED [facility] Comment on above: XI ROBOTIC LAPAROSCO PIC GASTRECTOMY SLEEVE , LIVER BIOPSY, EGD- GI SCHEDULED Start: 05-16-2021 End: 05-16-2021 Laps gstrc rstrictiv px longitudinal gastrectomy GASTRECTOMY SLEEVE LAPAROSCOPIC ROBOTIC MORBID OBESITY, OBSTRUCTIVE SLEEP APNEA, GERD 05/16/2021 7:10 AM EDT [facility] Start: 05-16-2021 Subsequent hospital visit by physician 05/16/2021 Hospital Encounter IP Unit Patricia Mars DO [address] [place] [address] [facility] Start: 05-13-2021 End: 05-13-2021 Patient encounter procedure 05/13/2021 Appointment Pre-Admission Testing [facility] PRE ADMIT Start: 05-10-2021 End: 05-10-2021 Patient encounter procedure 05/10/2021 Office Visit Patricia Islas DO [address] [place] [address] [facility]ariat[facility] Start: 11-22-2020 End: 11-22-2020 Nursing evaluation of patient and report 11/22/2020 Nurse Only Bariatrics [facility] Start: 11-06-2020 End: 11-06-2020 Patient encounter procedure [facility] Start: 11-03-2020 End: 11-03-2020 Patient encounter procedure 11/03/2020 Office Visit Deann Brothers, INVERFORM MACHINE OPERATOR - DRAINAGE DESIGN COORDINATOR [address] [facility] [address] [address] [address] [place] [phone] [facility] Start: 10-11-2020 Influenza vaccination Flu vaccine (# 1) [facility] Start: 09-28-2020 End: 09-28-2020 Patient encounter procedure 09/28/2020 Office Visit Deann Brothers, INVERFORM MACHINE OPERATOR - DRAINAGE DESIGN COORDINATOR [address] [facility] [address] [address] [address] [place] [address] [facility] Start: 09-01-2015 Screening for malign ant neoplasm of cervix [facility] Start: 2009 HIV screening HIV screen [facility] Start: 2006 COVID-19 Vaccine (1) COVID-19 Vaccin e (1) [facility] [employer] Work Phone: Start: 2006 Depression Screen Depression Screen [facility] Start: 2006 [facility] Screening [facility] Start: 2005 HPV vaccine (1 - 2-d ose series) HPV vaccine (1 - 2-dose series) [facility] Start: 2000 Pneumococcal 0-64 ye ars Vaccine (1 of 2 - PPSV23) Pneumococcal 0-64 years Vaccine (1 of 2 - PPSV23) [facility] Work Phone: Start: 09-01-1999 COVID-19 Vaccine (1) COVID-19 Vaccin e (1) [facility] Start: 09-01-1995 Varicella vaccine (1 of 2 - 2-dose childhood series) Varicella vaccine (1 of 2 - 2-dose childhood series) [facility] Start: 1994 Hepatitis C screening Hepatitis C sc [facility] End: 09-06-2020 Baseline Diagnostic Sleep Study Baseline Diagnostic Sleep Study Sleep Center Routine LYNN (obstructive sleep apnea) 1 Occurrences starting 09/06/2020 until 09/06/2020 [facility] [employer] Phone: Comment on above: 1 Occurrences starti ng 09/06/2020 until 09/06/2020 End: 02-08-2024 Calcium [Mass/volume] in Serum or Plasma Calcium Lab Routine 16 weeks gestation of H/O gastric sleeve 1 Occurrences starting 02/07/2023 until 02/08/2024 [employer] Comment on above: 1 Occurrences starti ng 02/07/2023 until 02/08/2024 End: 02-08-2024 CBC panel - Blood by Automated count CBC without diff Lab Routine Hypertension affecting in second trimester 16 weeks gestation of Dichorionic diamniotic twin in second trimester 1 Occurrences starting 02/07/2023 until 02/08/2024 [employer] Work Phone: Comment on above: 1 Occurrences starti ng 02/07/2023 until 02/08/2024 End: 02-08-2024 Comprehensive metabolic 2000 panel - Serum or Plasma Comprehensive metabolic panel Lab Routine Hypertension affecting in second trimester 16 weeks gestation of Dichorionic diamniotic twin in second trimester 1 Occurrences starting 02/07/2023 until 02/08/2024 [employer] Comment on above: 1 Occurrences starti ng 02/07/2023 until 02/08/2024 Continuous pulse oximetry Pulse oximetry, continuous Respiratory Care Routine Every 4hr until discontinued starting 05/16/2021 [employer] Work Phone: Comment on above: Every 4hr until disc ontinued starting 05/16/2021 End: 02-08-2024 Cyanocobalamin vitamin b-12 Vitamin B12 Lab Routine 16 weeks gestation of H/O gastric sleeve 1 Occurrences starting 02/07/2023 until 02/08/2024 [employer] Comment on above: 1 Occurrences starti ng 02/07/2023 until 02/08/2024 End: 02-08-2024 ECG 12 lead ECG 12 lead ECG Routine Hypertension affecting in second trimester 16 weeks gestation of Dichorionic diamniotic twin in second trimester 1 Occurrences starting 02/07/2023 until 02/08/2024 [employer] Comment on above: 1 Occurrences starti ng 02/07/2023 until 02/08/2024 End: 02-08-2024 Folate Folate Lab Routine 16 weeks gestation of H/O gastric sleeve 1 Occurrences starting 02/07/2023 until 02/08/2024 [employer] Comment on above: 1 Occurrences starti ng 02/07/2023 until 02/08/2024 End: 02-08-2024 Iron and TIBC Iron and TIBC Lab Routine 16 weeks gestation of H/O gastric sleeve 1 Occurrences starting 02/07/2023 until 02/08/2024 [employer] Comment on above: 1 Occurrences starti ng 02/07/2023 until 02/08/2024 End: 02-08-2024 LDH LDH Lab Routine Hypertension affecting in second trimester 16 weeks gestation of Dichorionic diamniotic twin in second trimester 1 Occurrences starting 02/07/2023 until 02/08/2024 [facility] Comment on above: 1 Occurrences starti ng 02/07/2023 until 02/08/2024 End: 02-08-2024 Natriuretic peptide B [Mass/volume] in Blood B-type natriuretic peptide Lab Routine Hypertension affecting in second trimester 16 weeks gestation of Dichorionic diamniotic twin in second trimester 1 Occurrences starting 02/07/2023 until 02/08/2024 [facility] Comment on above: 1 Occurrences starti ng 02/07/2023 until 02/08/2024 Oxygen therapy [[facility] Data Set] Initiate Oxygen Therapy Protocol Respiratory Care Routine As Needed until discontinued starting 05/16/2021 el? Phone: Comment on above: As Needed until disc ontinued starting 05/16/2021 End: 02-08-2024 Protein creat ratio Protein creat ratio Lab Routine Hypertension affecting in second trimester 16 weeks gestation of Dichorionic diamniotic twin in second trimester 1 Occurrences starting 02/07/2023 until 02/08/2024 [facility] Comment on above: 1 Occurrences starti ng 02/07/2023 until 02/08/2024 End: 02-08-2024 Protein, urine, 24 hour Protein, urine, 24 hour Lab Routine Hypertension affecting in second trimester 16 weeks gestation of Dichorionic diamniotic twin in second trimester 1 Occurrences starting 02/07/2023 until 02/08/2024 [facility] Comment on above: 1 Occurrences starti ng 02/07/2023 until 02/08/2024 Spirometry panel Incentive isiah metry Respiratory Care Routine Every 2hr while awake until discontinued starting 05/16/2021 el? Phone: Comment on above: Every 2hr while awak e until discontinued starting 05/16/2021 Surgical Pathology Surgical Path ology Lab Routine Release Upon Ordering for 1 Occurrences starting 05/16/2021 el? Phone: Comment on above: Release Upon Orderin g for 1 Occurrences starting 05/16/2021 End: 02-08-2024 Thiamin Vitamin B1, whole blood Thiamin Vitamin B1, whole blood Lab Routine 16 weeks gestation of H/O gastric sleeve 1 Occurrences starting 02/07/2023 until 02/08/2024 [facility] Comment on above: 1 Occurrences starti ng 02/07/2023 until 02/08/2024 End: 02-08-2024 Urate [Mass/volume] in Serum or Plasma Uric acid Lab Routine Hypertension affecting in second trimester 16 weeks gestation of Dichorionic diamniotic twin in second trimester 1 Occurrences starting 02/07/2023 until 02/08/2024 [facility] Comment on above: 1 Occurrences starti ng 02/07/2023 until 02/08/2024 End: 02-08-2024 Vitamin D 25 hydroxy Vitamin D 25 hydroxy Lab Routine 16 weeks gestation of H/O gastric sleeve 1 Occurrences starting 02/07/2023 until 02/08/2024 [facility] Comment on above: 1 Occurrences starti ng 02/07/2023 until 02/08/2024 Immunizations Immunization Date Immunization Notes Care Provider [facility] 11-12-2016 tuberculin skin test ; purified protein derivative solution, intradermal Tatiana Yap MD Work Phone: [facility] 08-10-2013 tetanus toxoid, redu yemi diphtheria toxoid, and acellular pertussis vaccine, adsorbed Tatiana Yap MD Work Phone: [facility] 10-03-1999 diphtheria, tetanus toxoids and acellular pertussis vaccine Tatiana Yap MD Work Phone: [facility] 10-03-1999 diphtheria, tetanus toxoids and acellular pertussis vaccine, unspecified formulation Eloise BURROUGHS Work Phone: [facility] 10-03-1999 hepatitis B vaccine, pediatric or pediatric/adolescent dosage Tatiana Yap MD Work Phone: [facility] 10-03-1999 measles, mumps and rubella virus vaccine Tatiana Yap MD Work Phone: [facility] 10-03-1999 poliovirus vaccine, inactivated Tatiana Yap MD Work Phone: [facility] 01-14-1996 diphtheria, tetanus toxoids and acellular pertussis vaccine Tatiana Yap MD Work Phone: [facility] 01-14-1996 diphtheria, tetanus toxoids and pertussis vaccine Eloise BURROUGHS Work Phone: [facility] 01-14-1996 haemophilus influenz ae type b vaccine, conjugate unspecified formulation Tatiana Yap MD Work Phone: [facility] 01-14-1996 measles, mumps and rubella virus vaccine Tatiana Yap MD Work Phone: [facility] 05-21-1995 diphtheria, tetanus toxoids and acellular pertussis vaccine Tatiana Yap MD Work Phone: [facility] 05-21-1995 DTP-Haemophilus influenzae type b conjugate vaccine Eloise BURROUGHS Work Phone: [facility] 05-21-1995 haemophilus influenz ae type b vaccine, conjugate unspecified formulation Tatiana Yap MD Work Phone: [facility] 05-21-1995 poliovirus vaccine, inactivated Tatiana Yap MD Work Phone: [facility] 05-21-1995 trivalent poliovirus vaccine, live, oral Eloise BURROUGHS Work Phone: [facility] 02-21-1995 diphtheria, tetanus toxoids and acellular pertussis vaccine Tatiana Yap MD Work Phone: [facility] 02-21-1995 DTP-Haemophilus influenzae type b conjugate vaccine Eloise BURROUGHS Work Phone: [facility] 02-21-1995 haemophilus influenz ae type b vaccine, conjugate unspecified formulation Tatiana Yap MD Work Phone: [facility] 02-21-1995 hepatitis B vaccine, pediatric or pediatric/adolescent dosage Tatiana Yap MD Work Phone: [facility] 02-21-1995 poliovirus vaccine, inactivated Tatiana Yap MD Work Phone: [facility] 02-21-1995 trivalent poliovirus vaccine, live, oral Eloise BURROUGHS Work Phone: [facility] 1994 diphtheria, tetanus toxoids and acellular pertussis vaccine Tatiana Yap MD Work Phone: [facility] 1994 DTP-Haemophilus influenzae type b conjugate vaccine Eloise BURROUGHS Work Phone: [facility] 1994 haemophilus influenz ae type b vaccine, conjugate unspecified formulation Tatiana Yap MD Work Phone: [facility] 1994 hepatitis B vaccine, pediatric or pediatric/adolescent dosage Tatiana Yap MD Work Phone: [facility] 1994 poliovirus vaccine, inactivated Tatiana Yap MD Work Phone: [facility] 1994 trivalent poliovirus vaccine, live, oral Eloise BURROUGHS Work Phone: [facility] 1994 hepatitis B vaccine, pediatric or pediatric/adolescent dosage Tatiana Yap MD Work Phone: [facility] Payers Date Payer Category Payer Medicaid [id number] 2022 Medicaid [id number] 2022 Self-pay 2019 Unknown [id number]. [id number] 1994 Unknown [id number] 2.16.840.1.324429.3.579.2. 173 1994 Unknown [id number] 2.16.840.1.089866.3.579.2. 173 1994 Unknown [id number] 2.16.840.1.367461.3.579.2. 173 1994 Unknown [id number] 2.16.840.1.756926.3.579.2. 593 1994 Unknown [id number] 2.16.840.1.537530.3.579.2. 593 1994 Unknown [id number] 2.16.840.1.258319.3.579.2. 593 1994 Unknown [id number] 2.16.840.1.583604.3.579.2. 593 1994 Unknown [id number] 2.16.840.1.285629.3.579.2. 593 1994 Unknown [id number] 2.16.840.1.605747.3.579.2. 593 1994 Unknown [id number] 2.16.840.1.546987.3.579.2. 175 1994 Unknown [id number] 2.16840.1.246286.3.579.2. 1286 1994 Unknown [id number] 2.16840.1.971691.3.579.2. 128 1994 Unknown [id number] 2.16840.1.132686.3.579.2. 128 1994 Unknown [id number] 2.16840.1.878014.3.579.2. 1285 1994 Unknown [id number] 2.16840.1.086891.3.579.2. 128 1994 Unknown [id number] 2.16840.1.604190.3.579.2. 1259 1994 Unknown [id number] 2.16.840.1.304875.3.579.2. 1259 1994 Unknown [id number] 2.16840.1.065901.3.579.2. 1259 1994 Unknown [id number] 2.16.840.1.308496.3.579.2. 1259 1994 Unknown [id number] 2.16840.1.752142.3.579.2. 1259 1994 Unknown [id number] 2.16.840.1.144668.3.579.2. 1258 1994 Unknown [id number] 2.16.840.1.386990.3.579.2. 1258 1994 Unknown [id number] 2.16.840.1.215722.3.579.2. 1258 1994 Unknown [id number] 2.16.840.1.673838.3.579.2. 1258 1994 Unknown [id number] 2.16.840.1.241561.3.579.2. 1258 1994 Unknown [id number] 2.16.840.1.020690.3.579.2. 1258 1994 Unknown [id number] 2.16.840.1.921681.3.579.2. 1259 1959 Private Health Insurance [id number] 1.2.840.795299.1.13.239.2. 7.3.513781.315 Private Health Insurance [facility] [id number] Unknown [id number] 2.16.840.1.461076.3.579.2. 531 Social History Date Type Detail Facility Start: 09-01-2020 End: 09-28-2020 Tobacco smoking status [facility] Current every day smoker el? Phone: Start: 09-01-2020 End: 07-03-2022 Cigarettes smoked current (pack per day) - Reported [facility] Start: 09-01-2020 End: 07-03-2022 Tobacco use and exposure Never used el? Phone: Start: 09-01-2020 End: 09-28-2020 Alcohol intake Current drinker of alcohol (finding) el? Phone: Start: 12-23-2019 Alcohol Comment weekly el? Phone: Start: 1995 Sex Assigned At Not on file el? Phone: Start: 04-22-2021 End: 05-16-2021 Exposure to SARS-CoV-2 (event) Not sure [employer] Exposure to SARS-CoV -2 (event) Yes [employer] Start: 01-19-2021 End: 07-03-2022 Tobacco smoking status [facility] Ex-smoker [employer] Start: 02-11-2008 End: 11-19-2020 History of tobacco use Current smoker el? Phone: Start: 05-02-2021 End: 02-26-2023 Alcohol intake Ex-drinker (finding) el? Phone: Start: 08-17-2018 End: 07-03-2022 Sex Assigned At [employer] Start: 1995 Sex Assigned At Female [facility] Start: 02-11-2008 End: 02-11-2020 History of tobacco use Cigarette Smoker [facility] History of tobacco use Tobacco U se Types Packs/Day Years Used Date Smoking Tobacco: Former Cigarettes Quit: 2020 Vaping/E-cigarettes Smokeless Tobacco: Former Quit: 11/06/2020 [facility] Start: 02-05-2023 Tobacco use and exposure Former smokeless tobacco user [facility] End: 11-06-2020 History of tobacco use User of smokeless tobacco [facility] Frequency of Communication with Friends and Family More than three times a week [facility] Start: 08-17-2018 Education 12 [facility] Start: 05-18-2022 Alcohol Comment social, every other weekend [facility] Start: 10-31-2022 [facility] Within the last year , have [...] Comment caffeine: 1-2 cups per day coffee [facility] Healthcare Clinical Notes 12-04-2020 to [...] of: HEIKE Meeks documented in this encounter [facility] 03-05-2023 History of Presen t illness Narrative Headache/epigastric pain/blurry vision/swelling? No Cramping/contractions? No Abnormal vaginal discharge? No Spotting or vaginal bleeding? No Loss of fluid like your water may have broken? No Recent ER visits or hospitalizations? Patient reports visit to [place] approximately two weeks ago to r/o ROM [...] you for allowing me to participate [facility]. If there are any questions, please do not hesitate to call me. Sincerely, KAROLINE HOPSON MD documented in this encounter [facility] 02-24-2023 Miscellaneous Notes Incoming telephone call from patient with concerns of leakage of fluid. Patient called in and stated that she is Leaking clear fluid and has been. Bottom Crane Operator asked if she had spoken to her OB provider and she said that she had, but they told her that she is basically too early to be leaking any fluid. Bottom Crane Operator recommended patient present to the nearest emergency room to be evaluated. Patient verbalized understanding and had no further questions. documented in this encounter [facility] 02-24-2023 Telephone encounter Note Incoming telephone call from patient with concerns of leakage of fluid. Patient called in and stated that she is Leaking clear fluid and has been. Bottom Crane Operator asked if she had spoken to her OB provider and she said that she had, but they told her that she is basically too early to be leaking any fluid. Bottom Crane Operator recommended patient present to the nearest emergency room to be evaluated. Patient verbalized understanding and had no further questions. [facility] History of Presen t illness Narrative Headache/epigastric pain/blurry vision/swelling? Occasional headaches Cramping/contractions? No Abnormal vaginal discharge? No Spotting/vaginal bleeding? No Loss of fluid like your water may have broken? No Cats in the home? No Do you change the litter box? No Flu vaccine? No Genetic testing done this here or other office? Yes Have you been seen here at [facility] in a previous ? No Recent ER visits or hospitalizations? No Bring blood sugar log or meter with you today? (Please bring them with you for every visit at [facility]) N/A Traveled outside the country in [...] TESTS AND ULTRASOUND REPORTS: Referral records and [facility] chart were reviewed Pertinent Ultrasound findings [...] operators who are performing tests using either [employer] or [facility] systems and is limited to laboratories that [...] repeat. Fact Sheet for Healthcare Providers: https://www.f da.gov/media/597430/download Fact Sheet for Patients: https://www.fda.gov/media/453704 /download HABITS: Patient activity no restrictions, diet [...] a but with an anticipation of excellent detention outcomes. In regards to the spontaneous processes, [...] previously recommended threshold of 160/110. Reference: PMID: [id number]. Blood pressures do increase as progresses and [...] preeclampsia prevention as is recommended by the [place] [employer]ne[employer] Committee Opinion No. 743. Higher doses (150mg) have been studied, but utilized a screening strategy that is not widely performed in the [place] (serum analytes and uterine artery Doppler), limiting the generalizability of the findings. We discussed the safety profile of nifedipine when used to treat chronic hypertension in , and patient information handout provided to her today: https://motherAssurelybaBrandtree.org/fact-sh eets/nifedipine/pdf/ We discussed the safety profile of beta blockers when used to treat chronic hypertension in : https://motherAssurelybaBrandtree.org/fact-sh eets/labetalol/pdf/ Bariatric Surgery S/p Bariatric surgery It [...] aspirin vs 10.3% no aspirin, p=0.45) (PMBID: [id number]). Given well-established benefits baby aspirin for the prevention of preeclampsia, I recommend initiating baby aspirin even in the setting of history of Joe-en-Y surgery. Micronutrient Dosing Recommendations: Calcium: recommend 1000-1200mg daily; if deficient, recommend 1800-76120 mg PO daily in divided doses Vitamin [...] sooner if clinically indicated Follow up in [facility] in 4 weeks for anatomy and clinic follow-up DISPOSITION: At this point the patient is in complete care of her ecology teacher. Patient does have ultrasound and office visit [...] Referring and communicating with other health healthcare consultant (not separately reported) Documenting clinical information in the electronic or other health record Tatiana Yap MD Maternal- Medicine [facility] [address] [place] [address] [facility], the CDC, and other organizations representing maternal and public health professionals recommend that , , and lactating people and those considering receive the COVID-19 vaccination. Vaccination is the best method to reduce maternal and complications of SARS-CoV-2 infection. This document was created with [employer] technology. Though I make every effort to review the dictation as it is transcribed, on occasion the spoken word can be misinterpreted by the technology leading to inappropriate words, phrases, or sentences. This note is addressed to the requesting provider as a consultation for clinical guidance. Specific medical abbreviations are occasionally used and those are generally approved by the [place]?Board of?Obstetrics and?Gynecology?as well as?Maddison hodgson abbreviations. The above plan of care was based solely on the diagnoses for which a consultation was requested. ?More frequent testing may be indicated based on her other medical/obstetrical conditions. The management of other or medical conditions is beyond the scope of requested consultation and will continue to be followed by the primary ecology teacher or primary care provider. Note to patient: [...] practitioner. documented in this encounter [facility] 10-12-2022 Evaluation note Encounter Date Diagnosis Assessment [...] take Sudafed and/or Mucinex for congestion. Take nlnm-ild-wazrg er Robitussin or Delsym for cough. Follow-up with your family physician if no improvement in 2 to 3 days. Off work tomorrow. Oct, Cough (ICD-10 - R05.9) Oct, Bronchitis (ICD-10 - J40) Acute bronchitis material was printed Face to Face [employer] Other 10-19-2022 NotePatient Education Materials [facility]s: [id number] History of Present illness Narrative* Payal Richardosn - 05/17/2021 4:25 PM EDT CLINICAL PHARMACY NOTE: MEDS TO BEDS Total # of Prescriptions Filled: 5 The following medications were delivered to the patient: Percocet 5-325mg Promethazine 25mg Cyclobenzaprine 10mg Famotidine 20mg Enoxaparin 40mg/0.4ml Additional Documentation: delivered to patient in room 234 05/17 at 4:03pm. No co-pay. * Avelino Grsos RN - 05/17/2021 9:39 AM EDT Discussed bariatric discharge instructions with patient, allowed time for questions, had patient demonstrate IS, lovenox teaching done and patient voices understanding [facility] Phone: [phone]) 422-878004-07-2022 Hospital Discharge instructions* Instructions* Hannah Zavaleta RN - 05/17/2021 Discharge Instructions for Bariatric Surgery You had a Laparoscopic Sleeve Gastrectomy (61548) surgery to treat obesity. Recovery from this [...] scheduled appointment, please call the office at [phone]. Call Your Doctor If Any of the [...] sent through Care Everywhere. * Enoxaparin (Lovenox) (Yoruba) * Video: How to Give Yourself an Anticoagulant (Blood Thinner) Shot (Yoruba) documented [facility] Phone: 1(676) 134-565303-23-2022 Hospital Discharge instructions* Instructions* Kendal Wilhelm APRN [...] Surgery/Procedure As a patient at [facility] you can expect quality medical and nursing care that is centered on your individual needs. Our goal is to make your surgical experience as comfortableas possible Directions to the Surgery Center The surgery Center at [facility] is located in the Emergency Room parking lot on [address] or there is additional parking across the street. The address is [address] [place] [address]. Please check in at the Surgery Center [...] on the day of surgery please contact [phone] or [phone] If you have any other questions regarding your procedure/surgery please call your surgeon's office. documented [facility] Phone: 1(624) 572-167503-23-2022 History of Present illness Narrative* Eloise Chi [...] syndrome) Under care of team 05/02/2021 pcp-Dr MelgozaYmllyz-dlnvowu-ffdd visit april 2021 Patient was evaluated in PAT & anesthesia guidelines were applied. NPO guidelines, medication instructions and scheduled arrival time were reviewed with patient. Anesthesia contacted: no Medical or cardiac clearance ordered: no, medical clearance obtained. LAURA Garcia CNP 05/02/21 11:53 AM documented in this encounterel? Phone: [phone]) 977-625010-25-2021 Evaluation note* Encounter Date Diagnosis Assessment Notes Treatment Notes Treatment Clinical Notes Nov, Contact with and (suspected) exposure to other viral communicable diseases (ICD-10 - Z20.828) Nov, Viral URI with cough (ICD-10 - J06.9) No COVID test completed at this time. Advised patient that will tx as viral URI. Supportive care as directed, increase fluids and rest, Tylenol/Motrin as directed, rx of [place] and Flonase as directed, cool mist humidifier, [...] Patient care instructions given in writting by [facility] Care At Home document Face to Face Live Other Evaluation note* Diagnosis LYNN (obstructive sleep apnea) Obstructive sleep apnea (adult) (pediatric) documented in this encounter el? Phone: evaliqzrhz note* Diagnosis S/P laparoscopic sleeve gastrectomy- Primary Post-op pain Other acute postoperative pain documented in this encounter el? Phone: [email or web address] noteNo assessment information available [facility] Work Phone: Evalujjwaw noteNo InformationNort [employer]Way Other Evaluwcbbe note* Diagnosis Hypertension affecting in second trimester- Primary 16 weeks gestation of Dichorionic diamniotic twin in second trimester H/O gastric sleeve [facility]* Diagnosis Hypertension affecting in second trimester 16 weeks gestation of Dichorionic diamniotic twin in second trimester [facility]* Diagnosis Hypertension affecting in second trimester- Primary Dichorionic diamniotic twin in second trimester [facility]* Diagnosis History of sleeve gastrectomy- Primary History of induced hypertension [facility]* Diagnosis Second trimester state, incidental Diabetes mellitus screening Screening for diabetes mellitus [facility] N[facility] - Reported* Type Description Date Medical History METABOLIC SYNDROME Medical History SYNCOPE Medical History anxiety Surgical History WISDOM TEETH Surgical History TONSILECTOMY Surgical History ENDOSCOPY AND COLONSCOPY Surgical History C section Hospitalization History see above [facility] Other History general Narrative - Reported* Type Description Date Medical History METABOLIC SYNDROME Medical History SYNCOPE Medical History anxiety Surgical History WISDOM TEETH Surgical History TONSILECTOMY Surgical History ENDOSCOPY AND COLONSCOPY Surgical History C section Surgical History gastric sleeve Hospitalization History see above [facility] Other Hisqnym general Narrative - Reported* Type Description Date Medical History METABOLIC SYNDROME Medical History SYNCOPE Medical History anxiety Surgical History WISDOM TEETH Surgical History TONSILECTOMY Surgical History ENDOSCOPY AND COLONSCOPY Surgical History C section Surgical History gastric sleeve Surgical History cholcystectomy 09/10/2022 Hospitalization History see above [facility] Other InstructionsNot on filedocumented in this encounter [...] MORBID OBESITY, OBSTRUCTIVE SLEEP APNEA, GERD Procedures NY LAP, JAY RESTRICT PROC, LONGITUDINAL GASTRECTOMY XI ROBOTIC LAPAROSCOPIC GASTRECTOMY SLEEVE , LIVER BIOPSY, EGD- GI SCHEDULED Patricia Mars, DO [address] [facility] [address] [place] [address] [address] [place] [address] Referral ID Status Reason Start Date Expiration Date Visits Re quested Visits Authorized [id number] 1 1 el? Phone: Summary Purpose Family History No Family [...] Procedures Referred By Contact Referred To Contact [facility] Diagnoses LYNN (obstructive sleep apnea) Procedures Baseline Diagnostic Sleep Study Ike Moreno MD [address] [address] Specialty Diagnoses / Procedures Referred By Contac t Referred To Contact Diagnoses Hypertension affecting in second trimester 16 weeks gestation of Dichorionic diamniotic twin in second trimester Procedures ECG 12 lead Tatiana Yap MD [address] [place] [address] Referral ID Status Reason Start Date Expiration Date V isits Requested Visits Authorized [id number] Pending Review 02/07/2023 02/07/2024 1 1 Specialty Diagnoses / Procedures Referred By Contac t Referred To Contact Maternal and Medicine Diagnoses Hypertension affecting in second trimester Dichorionic diamniotic twin in second trimester Procedures MFM with or without consult Karoline Hopson MD [address] [place] [address] [facility]aternal [facility] [address] [place] [address] Referral ID Status Reason Start Date Expiration Date V isits Requested Visits Authorized [id number] Pending Review 03/05/2023 03/04/2024 1 1 Chief Complaint and Reason for Visit Chief Complaint Dysuria Additional Source Comments INFORMATION SOURCE (unrecogn ized section and content) DATE CREATED AUTHOR 07/31/2017 [facility] DATE CREATED AUTHOR AUTHOR'S ORGANIZ ATION 05/21/2021 [facility] DATE CREATED AUTHOR AUTHOR'S ORGANIZ ATION 12/03/2021 [facility] DATE CREATED AUTHOR AUTHOR'S ORGANIZ ATION 01/12/2022 [facility] DATE CREATED AUTHOR AUTHOR'S ORGANIZ ATION 02/11/2022 [facility] DATE CREATED AUTHOR AUTHOR'S ORGANIZ ATION 09/13/2022 [facility] DATE CREATED AUTHOR AUTHOR'S ORGANIZ ATION 02/09/2023 [facility] DATE CREATED AUTHOR AUTHOR'S ORGANIZ ATION 04/12/2023 [facility] DATE CREATED AUTHOR AUTHOR'S ORGANIZ ATION 05/29/2023 [facility] EPIC Reason for Visit (unrecogniz ed section and content) Status Reason Specialty Diagnoses / Procedures Referred By Contact Referred To Contact [facility] Diagnoses LYNN (obstructive sleep apnea) Procedures Baseline Diagnostic Sleep Study Ike Moreno MD [address] [facility] [address] [place] [address] Status Reason Specialty Diagnoses / Procedures Referre d By Contact Referred To Contact Diagnoses K21.9 GERD E66.9 OBESITY Procedures [place] EGD TRANSORAL BIOPSY SINGLE/MULTIPLE EGD BIOPSY Patricia Mars, DO [address] [facility] [address] [place] [address] [facility] Reason Comments twin HX C/S HX gastric sleeve HX PTD Reason Comments Dichorionic Diamniotic Twin Hypertension Reason Comments Routine Visit Care Teams (unrecognized sec tion and content) [facility] Relationship Specialty Start Date End Date Stephane Martin MD [address] [place], [place] [id number] PCP - General 05/17/20 [facility] Relationship Specialty Start Date End Date tSephane Martin MD [address] [place], [place] [id number] PCP - General 05/17/20 Team Status: Inactive Member Role Status Dates Ale Shields APRN Attending Provider Active [facility] Relationship Specialty Start Date End Date Margot Toure DO [address] [place] [address] PCP - General Family Medicine 01/03/23 [facility] Relationship Specialty Start Date End Date Margot Toure DO [address] [place] [address] PCP - General Family Medicine 01/03/23 [facility] Relationship Specialty Start Date End Date Margot Toure DO [address] [place] [address] PCP - General Family Medicine 01/03/23 [facility] Relationship Specialty Start Date End Date Margot Toure DO [address] [place] [address] PCP - General Family Medicine 01/03/23 [facility] Relationship Specialty Start Date End Date Margot Toure DO [address] [place] [address] PCP - General Family Medicine 01/03/23 [facility] Relationship Specialty Start Date End Date Margot Toure DO [address] [place] [address] PCP - General Family Medicine 01/03/23 [facility] Relationship Specialty Start Date End Date Margot Toure DO [address] [place] [address] PCP - General Family Medicine 07/01/22 [facility] Relationship Specialty Start Date End Date Margot Toure DO [address] [place] [address] PCP - General Family Medicine 07/01/22 Ordered [...] (Given - Provider: Sharmin Sam APRN - [facility]) ceFAZolin (ANCEF) 3000 mg in sterile [...] Underwood RN) 0758 (Given - Provider: Hannah Zavaelta RN)1330 (Given - Provider: Hannah Zavaleta RN)2099 [...] (NoRateChange - Provider: Sharmin Sam APRN - [employer]IVE)0856 (Anesthesia Volume Adjustment - Provider: Sharmin Sam APRN - [employer] REPRESENTATIVE) 1631 (Stopped - Provider: Hannah Zavaleta RN) [...] to back table, 1000 ml. for suction follow up specialist) sodium chloride flush 0.9 % injection [...] BE BASED ON THE PRIMARY CLINICAL RECORDS. [email or web address] provides no warranty or guarantee of the accuracy or completeness of information in this document.
[2023-06-12 08:10] VITALS: BP 128/72; PULSE 95
[2023-06-12] MEDS: BETAMETHASONE ACE/BETAMETHASONE SOD PHOS 30 MG/5 ML 12 MG IM (08:40)
== END 2023-06-12 08:45 | disposition home or self-care (01) ==
LOC: FBCO 07:25 → FBC 08:02
PROVIDERS: Visit Provider Obstetrics & Gynecology
DX: O26.849 Uterine size-date discrepancy, unspecified trimester (principal)
CPT/HCPCS: 59025; 96372; J0702

== ENCOUNTER 2023-06-13 07:08 | Outpatient (OUT) | payer MEDICAID, SELFPAY ==
--- OUTSIDE RECORDS SUMMARY | 2023-06-13 07:12 | XMS_ITS | CCD ---
Author Organization [facility] Care Team Providers Care Watch Repairer Apprentice Name Role Phone Neo Anderson Unavailable Unavailable Neo Anderson Unavailable Unavailable Jose Maria Ortega MD, [facility] Primary Care Provider DOC OKEEFE Referring Unavailable JOSE MARIA ORTEGA, STEPHANE Primary Care Unavailitna e DOC OKEEFE Referring Unavailable JOSE MARIA ORTEGA, [facility] Primary Care Unavailabl e IKE MORENO Referring Unavailable JOSE MARIA ORTEGA, [facility] Primary Care Unavailabl e Ale Harris [...] Unavailable Cornelius LAURA Ale Kishor Attending Provider Cornelius Ale Unavailable PATRICIA MARS Attending Unavailable PATRICIA MARS Admitting Unavailable YAW, MARGOT Primary Care Unavailable Lilia Daugherty Unavailable Yaw DO, Margot G Primary Care Provider YAW, MARGOT G Referring Unavailable YAW, MARGOT G Primary Care Unavailable TATIANA YAP Attending Unavailable YAW, MARGOT G Referring Unavailable YAW, MARGOT G Primary Care Unavailable Yaw DO, Margot G Primary Care Provider ZACARIAS, NIGEL R Referring Unavailable YAW, MARGOT G Primary Care Unavailable ZACARIAS, NIGEL R Referring Unavailable YAW, MARGOT G Primary Care Unavailable KAROLINE HOPSON Attending Unavailable ZACARIAS, NIGEL R Referring Unavailable YAW, MARGOT G Primary Care Unavailable ZACARIAS, NIGEL Attending Unavailable ZACARIAS, NIGEL Attending Unavailable ALBERTOELOISE Attending Unavailable ZACARIAS, NIGEL Attending Unavailable ZACARIAS, NIGEL Attending Unavailable KIMMY MACHUCA Attending Unavailab le YAW, MARGOT G Attending Unavailable ZACARIAS, NIGEL Attending Unavailable YAW, MARGOT G Attending Unavailable ALBERTOELOISE CRAIG Attending Unavailable ZACARIAS, NIGEL Attending Unavailable ALBERTO, ELOISE Attending Unavailable Allergies Allergy Classification Reported Allergen(s) Allergy Type Date of Onset Reaction(s) Facility (11 sources) Ibuprofen; Translations: [IBUPROFEN] Drug Allergy 09-19-2021 [facility] Medications Current Medications Medication Drug Class(es) [...] 30 mg oral tablet (1 source) Uncompetitive K-hvtcqf-J-aspartate Receptor Antagonist, Sigma-1 Agonist Start: 2020 take 1 tablet by mouth every eight hours Preston DMT 30-30 MG 1 tablet Orally every [...] Iron (2 sources) Iron Active lactobacillus acidophilus [id number] unt / pectin 100 mg oral tablet [...] extended release oral tablet (2 sources) Uncompetitive B-hrgaxw-F-asparta te Receptor Antagonist, Sigma-1 Agonist Start: 01-14-2022 [...] Interpretation Reference Range Facility TB UA (CLEAN/CATCH) DIRECTOR PROFESSIONAL SERVICES/LISA RO IF IND.on 03-24-2023 BILIRUBIN URINE Negative NEGATIVE [facility] thcare BLOOD URINE Negative NEGATIVE [facility] Clarity (U) CLEAR CLEAR [facility] Color (U) YELLOW YELLOW [facility] Health[facility] e GLUCOSE URINE UA Negative NEGATIVE mg/dL [facility] Interpretation and review of laboratory results Abnormal [facility] Ketones Ql (U) TRACE Abnormal NEGATIVE mg/dL [facility] ealthcare Leukocyte esterase Test strip Ql (U) Negative NEGATIVE [facility] NITRITE URINE Negative NEGATIVE [facility] Health care pH (U) 6.0 [pH] 5.0 - 9.0 [facility] PROTEIN URINE TRACE NEG/TRACE mg/dL [facility] SPECIFIC GRAVITY URINE >=1.030 Abnormal 1.005 - 1.025 [facility] URINE MICROSCOPIC INDICATED NO [facility] UROBILINOGEN URINE 0.2 EU/dL 0.2 - 1.0 EU/dL [facility] e Urinalysis macro (dipstick) panel (U)on 03-19-2023 Bilirubin, UA Negative Negative - 4(70) +++ mg/dL [facility] Blood, UA Negative Negative - 50 Krzysztof/mcL [facility] Clarity, UA Clear [facility] re Color, UA Yellow [facility] Glucose, UA Negative Negative - 1999(110) ++++ mg/dL [facility] Interpretation and review of laboratory results Abnormal [facility] re Ketones, UA Negative Negative - 160(16) ++++ mg/dL [facility] Leukocytes, UA Negative Negative - 500+++ Mckayla/mcL [facility] Nitrite, UA Negative Negative - Positive [facility] pH, UA 6.0 5 - 9 [facility] e Protein, UA Positive Negative - 1999(20) ++++ mg/dL [facility] Spec Grav, UA 1.030 1 - 1.03 [facility] Urobilinogen, UA 0.2 0.2 - 12 mg/dL [facility] CBC without diffon External Hematocrit Hct 33.7 [facility] Comment on above: See attached External Hemoglobin 10.9 [facility] Comment on above: See attached External MCH 29.0 [facility] System Comment on above: See attached External Mchc 32.3 [facility] Comment on above: See attached External Mcv 89.6 [facility] Comment on above: See attached External Mpv 9.7 [facility] Comment on above: See attached External Platelet Count 268 [facility] Comment on above: See attached External Rbc Count 3.76 [facility] Comment on above: See attached External Rdw 13.4 [facility] Comment on above: See attached External Wbc Count 9.5 [facility] Comment on above: See attached [facility] Urine protein creatinine rat ioon 02-27-2023 Protein/Creatinine (U) [Mass ratio] 0.10 mg/g [facility] Comment on above: see attached [facility] Ultrasound - Officeon 2022 Radiology Study observation (narrative) [facility] HIV 1&2 AB/AG Screen (P24 AG )on 12-20-2022 HIV 1&2 AB/AG Non-Reactive [facility] Hepatitis B surface antigeno n 12-20-2022 Hepatitis B Surface Antigen Negative [facility] No Panel Informationon 12-20 [facility] Rubella IGG immune statuson 12-20-2022 Rubella immune IgG 1.96 [facility] Syphilis Total(Unknown Syphi lis Status)on 12-20-2022 Syphilis Non-Reactive [facility] 2022 SEE SCANNED REPORt MANUAL LY TRANSCRIBED RESULTS [facility] COVID + FLU Quick Testingon 10-12-2022 SARS-CoV-2 (COVID-19) RNA BECCA+probe Ql (Unsp spec) negtaive [employer] [facility] [employer] Other COVID + FLU Quick Testing Negative [employer] [facility] [employer] Other Basic Metabolic Profon 09-11 Anion gap [Moles/Vol] 9 mmol/L Normal 9-17 [facility] Comment on above: Performed By: #### B FIFI CBC, PT #### [facility] [address] [place] [address] [phone] Project Eng: Anthony Aguilar MD Calcium [Mass/Vol] 8.8 mg/dL Normal 8.6-10.4 [facility] Comment on above: Performed By: #### B FIFI CBC, PT #### [facility] [address] [place] [address] Project Eng: Anthony Aguilar MD Chloride [Moles/Vol] 106 mmol/L Normal 98-107 [facility] Comment on above: Performed By: #### B FIFI CBC, PT #### [facility] [address] [place] [phone] Project Eng: Anthony Aguilar MD CO2 [Moles/Vol] 23 mmol/L Normal 20-31 [facility] Comment on above: Performed By: #### B MP, CBC, PT #### [facility] [employer] [address] [place] [phone] Project Eng: Anthony Aguilar MD Creatinine [Mass/Vol] 0.7 mg/dL Normal 0.5-0.9 [facility] Comment on above: Performed By: #### B MP, CBC, PT #### [facility] [employer] [address] [place] [phone] Project Eng: Anthony Aguilar MD GFR/1.73 sq M.predicted among non-blacks MDRD (S/P/Bld) [Vol rate/Area] mL/min/{1.73_m2} Normal >60 [facility] Comment on above: Result Comment: These [...] B FIFI, CBC, PT #### [facility] [employer] [address] [place] [phone] Project Eng: Anthony Aguilar MD Glucose [Mass/Vol] 79 mg/dL Normal 70-99 [facility] Comment on above: Performed By: #### B FIFI, CBC, PT #### [facility] [employer] [address] [place] [phone] Project Eng: Anthony Aguilar MD Potassium [Moles/Vol] 4.1 mmol/L Normal 3.7-5.3 [facility] Comment on above: Performed By: #### B FIFI, CBC, PT #### [facility] [employer] [address] [place] [phone] Project Eng: Anthony Aguilar MD Sodium [Moles/Vol] 138 mmol/L Normal 135-144 [facility] Comment on above: Performed By: #### B MP, CBC, PT #### [facility] [employer] [address] [place] [address] [phone] Project Eng: Anthony Aguilar MD Urea nitrogen [Mass/Vol] 11 mg/dL Normal 6-20 [facility] Comment on above: Performed By: #### B MP, CBC, PT #### [facility] [employer] [address] [place] [address] [phone] Project Eng: Anthony Aguilar MD CBCon 09-11-2022 Erythrocyte distribution width (RBC) [Ratio] 13.2 % Normal 11.8-14.4 [facility] Comment on above: Performed By: #### B MP, CBC, PT #### [facility] [employer] [address] [place] [phone] Project Eng: Anthony Aguilar MD Hematocrit (Bld) [Volume fraction] 41.6 % Normal 36.3-47.1 [facility] Comment on above: Performed By: #### B FIFI, CBC, PT #### [facility] [employer] [address] [place] [phone] Project Eng: Anthony Aguilar MD Hemoglobin (Bld) [Mass/Vol] 13.3 g/dL Normal 11.9-15.1 [facility] Comment on above: Performed By: #### B MP, CBC, PT #### [facility] [address] [place] [address]43 Project Eng: Anthony Aguilar MD MCH (RBC) [Entitic mass] 28.3 pg Normal 25.2-33.5 [facility] Comment on above: Performed By: #### B MP, CBC, PT #### [facility] [address] [place] [phone] Project Eng: Anthony Aguilar MD MCHC (RBC) [Mass/Vol] 32.0 g/dL Normal 28.4-34.8 [facility] Comment on above: Performed By: #### B MP, CBC, PT #### [address] [address] Project Eng: Anthony Aguilar MD MCV (RBC) [Entitic vol] 88.5 fL Normal 82.6-102.9 [facility] Comment on above: Performed By: #### B MP, CBC, PT #### [address] [address] Project Eng: Anthony Aguilar MD NRBC Automated 0.0 per 100 WBC Normal 0.0 [facility] Comment on above: Performed By: #### B MP, CBC, PT #### [address] [address] Project Eng: Anthony Aguilar MD Platelet mean volume (Bld) [Entitic vol] 9.7 fL Normal 8.1-13.5 [facility] Comment on above: Performed By: #### B MP, CBC, PT #### [address] [address] Project Eng: Anthony Aguilar MD Platelets (Bld) [#/Vol] 276 10*3/uL Normal 138-453 [facility] Comment on above: Performed By: #### B MP, CBC, PT #### [address] [address] Project Eng: Anthony Aguilar MD RBC (Bld) [#/Vol] 4.70 10*6/uL Normal 3.95-5.11 [facility] Comment on above: Performed By: #### B MP, CBC, PT #### [address] [address] Project Eng: Anthony Aguilar MD WBC (Bld) [#/Vol] 7.4 10*3/uL Normal 3.5-11.3 [facility] Comment on above: Performed By: #### B MP, CBC, PT #### [facility] [address] [place] [address] [phone] Project Eng: Anthony Aguilar MD PTon 09-11-2022 INR Coag (PPP) [Relative time] 1.0 {INR} Normal [facility] Comment on above: Result Comment: Therapeutic Range: Moderate Anticoagulant Intensity: INR = 2.0-3.0 High Anticoagulant Intensity: INR = 2.5-3.5 Performed By: #### B MP, CBC, PT #### [facility] [employer] [address] [place] [address] [phone] Project Eng: Anthony Aguilar MD PT Coag (PPP) [Time] 12.9 s Normal 11.7-14.9 [facility] Comment on above: Performed By: #### B MP, CBC, PT #### [facility] [address] [place] [address] [phone] Project Eng: Anthony Aguilar MD Surgical Pathologyon 023 Surgical Pathology (NOTE) Path Number: [id number] -- Diagnosis -- GALLBLADDER, CHOLECYSTECTOMY: -CHRONIC CHOLECYSTITIS [...] lesions or periductal lymph nodes are identified. [employer] sections 1c. tm Microscopic Description Microscopic examination performed. Processing Lab: [address] [address] Interpretation Performed at [address] [phone] SURGICAL PATHOLOGY CONSULTATION Patient Name: FINA WALKER [facility] Rec: [id number] [facility] [employer] [facility] ANATOMIC PATHOLOGY [address] [place] [phone] Normal [facility] Urine Cultureon 02-08-2022 Bacteria identified Cx Nom (U) Reason for Exam Dysuria Urine ORGANISM: Escherichia coli (O:ESCCOL) [place] Count >100,000 Aerobic LISA Charge (NMIC56) ---- [...] RESISTANT TO ALL B-LACTAM DRUGS. PERFORMED BY: [place] [address] PATHOLOGIST RENAL DIALYSIS TECHNICIAN SAMIRA WEN M.D. [facility] Comment on above: Performed By: #### C UU #### [facility] [address] [phone] [facility] VC CONSULT FOLLOWUPon 2021 VC CONSULT FOLLOWUP Patient: FINA WALKER Exam Date: 01/08/2022 : 1995 Gender:F Ordering : DR JAMEEL ABEBE M.D. Admission #: [id number] Family : Order #: [id number] CLICK HERE TO VIEW EXAM RADIOLOGY REPORT [...] Hinton M.D. on 01/08/2022 at 10:10 Normal [facility] VC EXT VENOUS RT LIMITEDon 1 03-10-2021 VC EXT VENOUS RT LIMITED Patient: FINA WALKER Exam Date: 01/08/2022 : 1995 Gender:F Ordering : DR JAMEEL ABEBE M.D. Admission #: [id number] Family : Order #: [id number] CLICK HERE TO VIEW EXAM RADIOLOGY REPORT [...] Hinton M.D. on 01/08/2022 at 10:05 Normal [facility] VC ENDOVENOUS ABL 1ST V RTon 12-31-2021 VC ENDOVENOUS ABL 1ST V RT Patient: FINA WALKER Exam Date: 12/31/2021 : 1995 Gender:F Ordering : DR JAMEEL BAEBE M.D. Admission #: [id number] Family : Order #: [id number] CLICK HERE TO VIEW EXAM RADIOLOGY REPORT [...] Abebe MD on 12/31/2021 at 11:06 Normal [facility] ED Clinical Summaryon 2021 ED Clinical Summary [facility] ? Urgent Care [address] [place] [id number] Clinical Summary PERSON INFORMATION Name: VERNON WALKER Age: 26 Years Sex: FEMALE : 1995 MRN: Acct#: Visit Reason: OTTERBEIN PHYSICAL Arrival: 11/28/2021 10:39:56 Discharge: 11/28/2021 10:59:00 LOS: 000 00:20 Check In: 11/28/2021 10:39:56 Checkout: 11/28/2021 10:59:00 Address: [address] [place], [place] [address] PCP: Provider, None PROVIDER INFORMATION VITALS INFORMATION Vital Sign Triage Latest Temperature Tympanic Temperature Temporal Artery Pulse Rate O2 Sat Respiratory Rate Blood Pressure / / MEDICAL INFORMATION Medications Given: Allergy Information: No known allergies PHYSICIAN DOCUMENTATION DISCHARGE INFORMATION: Discharge Disposition: Eloped Discharge Location: PATIENT EDUCATION INFORMATION Instructions: Follow-Up: DIAGNOSIS: Patient Understands: Comment: Normal [facility] ED Patient Summaryon 022 ED Patient Summary [facility] ? Urgent Care [address] [place] [address] PATIENT DISCHARGE INSTRUCTIONS Patient Information Name: VERNON WALKER Age: 26 Years Date of : 1995 Reason For Visit: OTTERBEIN PHYSICAL Arrival Time: 11/28/2021 10:39:56 Primary Care Physician: Provider, None Attending Physician: Nuno Bradshaw Comment: Patient Education Medication Information: The exam and treatment you received today in the [facility] Emergency Department were for an urgent problem and are not intended as complete care. It is important for you to follow up with a doctor, nurse practitioner, or physician?s dairy and food laboratory assistant for ongoing care. If your symptoms [...] so we can reach you if necessary. [facility] Emergency Department has provided you with a complete list of medications post discharge. Please inform your mill tender warm up/provider of your visit and for further instruction [...] for Disease Control and Prevention October 2013 [facility] VC CONSULT FOLLOWUPon 2021 VC CONSULT FOLLOWUP Patient: FINA WALKER Exam Date: 11/28/2021 : 1995 Gender:F Ordering : DR JAMEEL ABEBE M.D. Admission #: [id number] Family : Order #: [id number] CLICK HERE TO VIEW EXAM RADIOLOGY REPORT [...] Hinton M.D. on 11/28/2021 at 10:04 Normal [facility] VC EXT VENOUS LT LIMITEDon 1 VC EXT VENOUS LT LIMITED Patient: FINA WALKER Exam Date: 11/28/2021 : 1995 Gender:F Ordering : DR JAMEEL ABEBE M.D. Admission #: [id number] Family : Order #: [id number] CLICK HERE TO VIEW EXAM RADIOLOGY REPORT [...] Hinton M.D. on 11/28/2021 at 09:45 Normal [facility] VC ENDOVENOUS ABL 1ST V LTon 11-22-2021 VC ENDOVENOUS ABL 1ST V LT Patient: FINA WALKER Exam Date: 11/22/2021 : 1995 Gender:F Ordering : DR JAMEEL ABEBE M.D. Admission #: [id number] Family : Order #: [id number] CLICK HERE TO VIEW EXAM RADIOLOGY REPORT PROCEDURE: VEIN CENTER ENDOVENOUS ABLATION FIRST VEIN LEFT GREAT SAPHENOUS VEIN COMPARISON: VC VENOUS REFLUX JOVANA LMT, 10/17/2021. INDICATIONS: Pain co-occurrent and due to varicose veins of bilateral legs I83.813 OPERATIVE REPORT: The risks and benefits of the procedure had been previously discussed, and were rediscussed at length. Informed written consent was obtained by co and Christopher Zavala assisted. Time out procedure [...] Jameel Abebe MD on 11/22/2021 at 09:04 [facility] VC COMP CONSULTATIONon 10-17 VC COMP CONSULTATION Patient: FINA WALKER Exam Date: 10/17/2021 : 1995 Gender:F Ordering : DR JAMEEL ABEBE M.D. Admission #: [id number] Family : Order #: [id number] CLICK HERE TO VIEW EXAM RADIOLOGY REPORT [...] arterial disease 5. CEAP: C2, EC, AP, [place] PLAN: 1. Continued use of compression stockings [...] M.D. on 10/17/2021 at 12:46 Normal [facility] Basic Metabolic Panelon 04-0 Anion gap [Moles/Vol] 8 mmol/L Low 9 - 17 mmol/L [facility] Calcium [Mass/Vol] 8.6 mg/dL 8.6 - 10. 4 mg/dL [facility] Chloride [Moles/Vol] 106 mmol/L 98 - 107 mmol/L [facility] CO2 [Moles/Vol] 23 mmol/L 20 - 31 mmol/L [facility] Creatinine [Mass/Vol] 0.67 mg/dL 0.50 - 0.90 mg/dL [facility] GFR >60 >60 mL/min [facility] GFR Non- >60 >60 mL/min [facility] GFR/1.73 sq M.predicted MDRD (S/P/Bld) [Vol rate/Area] [facility] Comment on above: Average GFR for 20-2 9 years old: 116 mL/min/1.73sq m Chronic Kidney Disease: <60 mL/min/1.73sq m Kidney failure: <15 mL/min/1.73sq m eGFR calculated using average adult body mass. Additional eGFR calculator available at: http://www.eToro.Glowbl/multiple_crcl_2011.htm Glucose [Mass/Vol] 83 mg/dL 70 - 99 mg/dL [facility] [employer] Interpretation and review of laboratory results Abnormal [facility] Potassium [Moles/Vol] 3.9 mmol/L 3.7 - 5.3 mmol/L [facility] Sodium [Moles/Vol] 137 mmol/L 135 - 144 mmol/L [facility] Urea nitrogen (BldV) [Mass/Vol] 7 mg/dL 6 - 20 mg/dL [facility] CBCon 05-17-2021 Hematocrit (Bld) [Volume fraction] 34.4 % Low 36.3 - 47.1 % [facility] Hemoglobin.gastroin testinal spec 1 Ql (Stl) 11.0 g/dL Low 11.9 - 15.1 g/dL [facility] Interpretation and review of laboratory results Abnormal [facility] MCH (RBC) [Entitic mass] 27.2 pg 25.2 - 33.5 pg [facility] MCHC (RBC) [Mass/Vol] 32.0 g/dL 28.4 - 34.8 g/dL [facility] MCV (RBC) [Entitic vol] 85.1 fL 82.6 - 102.9 fL [facility] NRBC Automated 0.0 0.0 per 100 WBC [facility] Platelet distribution width (Bld) [Ratio] 14.1 % 11.8 - 14.4 % [facility] Platelet mean volume (Bld) [Entitic vol] 10.1 fL 8.1 - 13.5 fL [facility] Platelets (Bld) [#/Vol] 302 10*3/uL [facility] RBC (Bld) [#/Vol] 4.04 10*6/uL 3.95 - 5.1 1 m/uL [facility] WBC (Bld) [#/Vol] 13.7 10*3/uL High [facility] SURGICAL PATHOLOGY REPORTon 05-17-2021 Surgical Pathology [...] x 0.5 cm piece of adipose tissue. [employer] sections 1cs. tm Microscopic Description 1 H&E reviewed. Microscopic examination performed. SURGICAL PATHOLOGY CONSULTATION Patient Name: FINA WALKER [facility] Rec: [id number] Path Number: [id number] [facility] [employer] [facility] ANATOMIC PATHOLOGY [facility] [place], [place] [address] [facility] [employer] Basic Metabolic Panelon - Anion gap [Moles/Vol] 10 mmol/L 9 - 17 mmol/L [employer] Calcium [Mass/Vol] 8.7 mg/dL 8.6 - 10. 4 mg/dL [employer] [facility] Chloride [Moles/Vol] 105 mmol/L 98 - 107 mmol/L [facility] CO2 [Moles/Vol] 23 mmol/L 20 - 31 mmol/L [employer] [facility] Creatinine [Mass/Vol] 0.75 mg/dL 0.50 - 0.90 mg/dL [employer] [facility] GFR >60 >60 mL/min [facility] [employer] GFR Non- >60 >60 mL/min [facility] GFR/1.73 sq M.predicted MDRD (S/P/Bld) [Vol rate/Area] [facility] Comment on above: Average GFR for 20-2 9 years old: 116 mL/min/1.73sq m Chronic Kidney Disease: <60 mL/min/1.73sq m Kidney failure: <15 mL/min/1.73sq m eGFR calculated using average adult body mass. Additional eGFR calculator available at: http://www.FRS/multiple_crcl_2011.htm Glucose [Mass/Vol] 132 mg/dL High 70 - 99 mg/dL [facility] [employer] Interpretation and review of laboratory results Abnormal [facility] Potassium [Moles/Vol] 3.5 mmol/L Low 3.7 - 5.3 mmol/L [employer] [facility] Sodium [Moles/Vol] 138 mmol/L 135 - 144 mmol/L [employer] [facility] Urea nitrogen (BldV) [Mass/Vol] 10 mg/dL 6 - 20 mg/dL [facility] CBC without Diffon Hematocrit (Bld) [Volume fraction] 38.8 % 36.3 - 47.1 % [employer] [facility] Hemoglobin.gastroin testinal spec 1 Ql (Stl) 12.6 g/dL 11.9 - 15.1 g/dL [facility] Interpretation and review of laboratory results Abnormal [facility] MCH (RBC) [Entitic mass] 27.2 pg 25.2 - 33.5 pg [facility] MCHC (RBC) [Mass/Vol] 32.5 g/dL 28.4 - 34.8 g/dL [facility] MCV (RBC) [Entitic vol] 83.8 fL 82.6 - 102.9 fL [facility] NRBC Automated 0.0 0.0 per 100 WBC [facility] Platelet distribution width (Bld) [Ratio] 13.9 % 11.8 - 14.4 % [facility] Platelet mean volume (Bld) [Entitic vol] 9.8 fL 8.1 - 13.5 fL [facility] Platelets (Bld) [#/Vol] 340 10*3/uL [facility] RBC (Bld) [#/Vol] 4.63 10*6/uL 3.95 - 5.1 1 m/uL [facility] WBC (Bld) [#/Vol] 15.0 10*3/uL High [facility] POC Glucose Fingerstickon Glucose [Mass/Vol] 77 mg/dL 65 - 105 mg/dL [facility] POCT urine pregnancyon 05-16 Beta HCG ( test) Ql (U) Negative NEGATIVE [facility] Comment on above: Specimens with hCG l evels near the threshold of the test (25 mIU/mL) may give a negative or indeterminate result. In such cases, another test should be performed with a new specimen in 48-72 hours. If early is suspected clinically in this setting, correlation with quantitative serum b-hCG level is suggested. [facility] [id number] 05-15-2021 SARS-CoV-2 (COVID-19) RNA BECCA+probe Ql (Unsp spec) Normal [facility] Comment on above: Performed By: #### C OVID #### [facility] [employer] [address] [place] [address] Project Eng: Anthony Aguilar MD [facility] [address] [place] [address] Project Eng: Jameel Lawler MD SARS-CoV-2 (COVID-19) RNA BECCA+probe Ql (Unsp spec) Not detected Normal NOTDET [facility] Comment on above: Result Comment: The specimen is NEGATIVE for SARS-CoV-2, the novel coronavirus associated with COVID-19. A negative result does not rule out COVID-19. Lucrecia SARS-CoV-2 for use on the [employer]cre[employer]/8800 Systems is a real-time RT-PCR test intended [...] this assay. Fact sheet for Healthcare Providers: https://www.fda.gov/media/157941/download Fact sheet for Patients: https://www.fda.gov/media/920684/download METHODOLOGY: RT-PCR Performed By: #### C OVID #### [address] [address] Project Eng: Anthony Aguilar MD [facility] [address] [place] [address] [place] [address] Project Eng: Jameel Lawler MD [id number] 05-14-2021 SARS-CoV-2 (COVID-19) RNA BECCA+probe Ql (Unsp spec) .NASOPHARYNGEAL SWAB Normal [facility] Comment on above: Performed By: #### C OVID #### [id number] [place], [place] [id number] Project Eng: Anthony Aguilar MD [facility] [address] [place] [address] [place] [address] Project Eng: Jameel Lawler MD Nicotine, Bloodon 05-05-2021 0-LA-Hspgdjbx <2 ng/mL [facility] Cotinine <2 ng/mL [facility] Nicotine <2 ng/mL [facility] Comment on above: (NOTE) Consistent with abstinence [...] developed and its performance characteristics determined by [employer]. It has not been cleared or approved by the US Food and Drug Administration. This test was performed in a CLIA certified laboratory and is intended for clinical purposes. Performed By: [employer] [address] [place] [id number] Senior Counsel Commercial: Yara Rodriguez MD [facility] EKG 12 LeadOrdered By: Diaz Conway on 05-03-2021 Atrial Rate 72 BPM [facility] Work Phone: P [place] 45 degrees [facility] Phone: P-R Interval 142 ms [facility] Work Phone: Q-T Interval 376 ms [facility] Work Phone: QRS Duration 100 ms [facility] Work Phone: QTc Calculation (Bazett) 411 ms [facility] Work Phone: R [place] 22 degrees [facility] Phone: T [place] 32 degrees [facility] Work Phone: Ventricular Rate 72 BPM [place] Work Phone: [facility] Work Phone: EKG 12 Leadon 05-03-2021 Normal sinus rhythm Normal ECG No previous ECGs available [facility] STV Diaz Romero MD - 05/03/2021 Normal sinus rhythm Normal ECG No previous ECGs available [facility] Work Phone: APTTon 05-02-2021 aPTT Coag (Bld) [Time] 25.0 s [facility] Comment on above: IV Heparin Therapy Range: 48.6-77.8 Basic Metabolic Panelon 04-11 Anion gap [Moles/Vol] 15 mmol/L 9 - 17 mmol/L [facility] Calcium [Mass/Vol] 9.8 mg/dL 8.6 - 10. 4 mg/dL [facility] Chloride [Moles/Vol] 102 mmol/L 98 - 107 mmol/L [facility] CO2 [Moles/Vol] 21 mmol/L 20 - 31 mmol/L [facility] Creatinine [Mass/Vol] 0.55 mg/dL 0.50 - 0.90 mg/dL [facility] GFR >60 >60 mL/min [facility] GFR Non- >60 >60 mL/min [facility] GFR/1.73 sq M.predicted MDRD (S/P/Bld) [Vol rate/Area] [facility] Comment on above: Average GFR for 20-2 9 years old: 116 mL/min/1.73sq m Chronic Kidney Disease: <60 mL/min/1.73sq m Kidney failure: <15 mL/min/1.73sq m eGFR calculated using average adult body mass. Additional eGFR calculator available at: http://www.eToro.Glowbl/multiple_crcl_2011.htm Glucose [Mass/Vol] 85 mg/dL 70 - 99 mg/dL [employer] Potassium [Moles/Vol] 4.5 mmol/L 3.7 - 5.3 mmol/L [facility] Sodium [Moles/Vol] 138 mmol/L 135 - 144 mmol/L [facility] Urea nitrogen (BldV) [Mass/Vol] 11 mg/dL 6 - 20 mg/dL XOR.MOTORS [facility] CBCon 05-02-2021 Hematocrit (Bld) [Volume fraction] 41.0 % 36.3 - 47.1 % Channel M Hemoglobin.gastroin testinal spec 1 Ql (Stl) 12.9 g/dL 11.9 - 15.1 g/dL [facility] MCH (RBC) [Entitic mass] 26.9 pg 25.2 - 33.5 pg [facility] MCHC (RBC) [Mass/Vol] 31.5 g/dL 28.4 - 34.8 g/dL [facility] MCV (RBC) [Entitic vol] 85.6 fL 82.6 - 102.9 fL [facility] [employer] NRBC Automated 0.0 0.0 per 100 WBC [facility] [employer] Platelet distribution width (Bld) [Ratio] 13.7 % 11.8 - 14.4 % [facility] [employer] Platelet mean volume (Bld) [Entitic vol] 9.8 fL 8.1 - 13.5 fL [facility] [employer] Platelets (Bld) [#/Vol] 380 10*3/uL [facility] [employer] RBC (Bld) [#/Vol] 4.79 10*6/uL 3.95 - 5.1 1 m/uL [facility] [employer] WBC (Bld) [#/Vol] 11.2 10*3/uL [facility] No Panel Informationon 05-02 Channel [facility] Protime-INRon 05-02-2021 INR Coag (Bld) [Relative time] 1.0 {INR} [facility] Comment on above: Therapeutic Range: Moderate Anticoagulant Intensity: INR = 2.0-3.0 High Anticoagulant Intensity: INR = 2.5-3.5 PT Coag (PPP) [Time] 10.6 s [facility] XR CHEST (2 VW)on 05-02-2021 No acute process. [facility] RIS CONSOLIDATED EXAMINATION: TWO XRAY VIEWS OF THE CHEST 05/02/2021 11:20 am COMPARISON: None. HISTORY: ORDERING SYSTEM PROVIDED HISTORY: preop, obesity TECHNOLOGIST PROVIDED HISTORY: preop, obesity FINDINGS: Heart is normal in size. Lungs are clear. No free air. [facility] RIS CONSOLIDATED Jose Juan Florez Jr. , DO - 05/02/2021 EXAMINATION: TWO XRAY VIEWS OF THE CHEST 05/02/2021 11:20 am COMPARISON: None. HISTORY: ORDERING SYSTEM PROVIDED HISTORY: preop, obesity TECHNOLOGIST PROVIDED HISTORY: preop, obesity FINDINGS: Heart is normal in size. Lungs are clear. No free air. IMPRESSION: No acute process. [facility] Phone: Radiology Study observation (narrative) [facility] Phone: XR CHEST (2 VW)Ordered By: Santos Florez on 05-02-2021 [facility] Phone: [id number] 12-05-2020 SARS-CoV-2 (COVID-19) RNA BECCA+probe Ql (Unsp spec) Normal [facility] Comment on above: Performed By: #### C OVID #### [facility] [employer] [address] [place] [address] Project Eng: Anthony Aguilar MD [facility] [address] [place] [address] Project Eng: Jameel Lawler MD SARS-CoV-2 (COVID-19) RNA BECCA+probe Ql (Unsp spec) Not detected Normal NOTDET [facility] Comment on above: Result Comment: The specimen is NEGATIVE for SARS-CoV-2, the novel coronavirus associated with COVID-19. A negative result does not rule out COVID-19. Lucrecia SARS-CoV-2 for use on the [employer]cre[employer] BeatSwitch0/8800 Systems is a real-time RT-PCR test intended [...] this assay. Fact sheet for Healthcare Providers: https://www.fda.gov/media/730538/download Fact sheet for Patients: https://www.fda.gov/media/370400/download METHODOLOGY: RT-PCR Performed By: #### C OVID #### [address] [place], [place] [id number] Project Eng: Anthony Aguilar MD [facility] [address] [place] [address] Project Eng: Jameel Lawler MD [id number] 12-04-2020 SARS-CoV-2 (COVID-19) RNA BECCA+probe Ql (Unsp spec) .NASOPHARYNGEAL SWAB Normal [facility] Comment on above: Performed By: #### C OVID #### [address] [place], [place] [id number] Project Eng: Anthony Aguilar MD [facility] [address] [place] [address] Project Eng: Jameel Lawler MD Vital Signs Date Time Vital Sign Value Performing Clinician Facility 03-19-2023 11:06-0500 Body mass index (BMI) [Ratio] 36.34 kg/m2 Eloise BURROUGHS Work Phone: [facility] 03-19-2023 11:06-0500 Body weight 105.23 kg Eloise BURROUGHS Work Phone: [facility] 03-19-2023 11:06-0500 Diastolic blood pressure 78 mm[Hg] Eloise BURROUGHS Work Phone: [facility] 03-19-2023 11:06-0500 Systolic blood pressure 124 mm[Hg] Eloise BURROUGHS Work Phone: [facility] 03-05-2023 10:48-0500 Body mass index (BMI) [Ratio] 35.08 kg/m2 Karoline Hopson MD Work Phone: [facility] 03-05-2023 10:48-0500 Body weight 101.61 kg Karoline Hopson MD Work Phone: [facility] 03-05-2023 10:48-0500 Diastolic blood pressure 75 mm[Hg] Karoline Hopson MD Work Phone: [facility] 03-05-2023 10:48-0500 Heart rate 89 /min [facility] 03-05-2023 10:48-0500 Systolic blood pressure 126 mm[Hg] Karoline Hopson MD [facility] Phone[facility] 02-07-2023 13:34-0500 Body height 170.2 cm Tatiana Yap MD Work Phone: [facility] 02-07-2023 13:34-0500 Body mass index (BMI) [Ratio] 34.14 kg/m2 Taitana Yap MD Work Phone: [facility] 02-07-2023 13:34-0500 Body weight 98.88 kg Tatiana Yap MD Work Phone: [facility] 02-07-2023 13:34-0500 Diastolic blood pressure 83 mm[Hg] Tatiana Yap MD Work Phone: [facility] 02-07-2023 13:34-0500 Heart rate 76 /min Tatiana Yap MD Work Phone: [facility] 02-07-2023 13:34-0500 Systolic blood pressure 126 mm[Hg] Tatiana Yap MD Work Phone: [facility] 10-12-2022 10:10-0400 Body height 170.18 cm Lilia Daugherty Other [employer] Other 10-12-2022 10:10-0400 Body mass index (BMI) [Ratio] 32.86 kg/m2 Lilia Daugherty Other [employer] Other 10-12-2022 10:10-0400 Body temperature 99 [degF] Lilia Daugherty Other [employer] Other 10-12-2022 10:10-0400 Body weight 95.17 kg Lilia Daugherty Other [employer] Other 10-12-2022 10:10-0400 Diastolic blood pressure 74 mm[Hg] Lilia Daugherty Other [employer] Other 10-12-2022 10:10-0400 SaO2% (BldA) [Mass fraction] 98 % Lilia Daugherty Other [employer] Other 10-12-2022 10:10-0400 Systolic blood pressure 118 mm[Hg] Lilia Daugherty Other [employer] Other 05-17-2021 15:52-0400 Body temperature 98.49 [degF] Patricia Mars [employer] Work Phone: [facility] 05-17-2021 15:52-0400 Diastolic blood pressure 97 mm[Hg] Patricia Mars [employer] Work Phone: [facility] 05-17-2021 15:52-0400 Heart rate 70 /min Patricia [employer] Work Phone: [facility] 05-17-2021 15:52-0400 Respiratory rate 18 /min Patricia Mars [employer] Work Phone: [facility] 05-17-2021 15:52-0400 SaO2% (BldA) [Mass fraction] 99 % Patricia Mars [employer] Work Phone: [facility] 05-17-2021 15:52-0400 Systolic blood pressure 138 mm[Hg] Patricia Mars [employer] Work Phone: [facility] 05-16-2021 06:06-0400 Body mass index (BMI) [Ratio] 43.16 kg/m2 Patricia Mars [employer] Work Phone: [facility] 05-16-2021 06:06-0400 Body weight 125 kg Patricia Mars [employer] Work Phone: [facility] 05-16-2021 05:57-0400 Body height 170.2 cm Patricia Mars DO Work Phone: [facility] 05-02-2021 10:35-0400 Body height 170.2 cm Stv[facility] 1 [facility] 05-02-2021 10:35-0400 Body mass index (BMI) [Ratio] 44.95 kg/m2 [facility] 1 [facility] 05-02-2021 10:35-0400 Body temperature 97.2 [degF] [facility] 1 [facility] 05-02-2021 10:35-0400 Body weight 130.18 kg [facility] 1 [facility] 05-02-2021 10:35-0400 Diastolic blood pressure 85 mm[Hg] [facility] 1 [facility] 05-02-2021 10:35-0400 Heart rate 66 /min [facility] 1 [facility] 05-02-2021 10:35-0400 Respiratory rate 18 /min [facility] 1 [facility] 05-02-2021 10:35-0400 SaO2% (BldA) [Mass fraction] 99 % [facility] 1 [facility] 05-02-2021 10:35-0400 Systolic blood pressure 122 mm[Hg] [facility] 1 [facility] 12-04-2020 17:00-0400 Body height 170.18 cm Ale Ginty Other [employer] Other 12-04-2020 17:00-0400 Body mass index (BMI) [Ratio] 43.85 kg/m2 Ale Ginty Other [employer] Other 12-04-2020 17:00-0400 Body temperature 97.4 [degF] Ale Ginty Other [employer] Other 12-04-2020 17:00-0400 Body weight 127.01 kg Ale Ginty Other [employer] Other 12-04-2020 17:00-0400 SaO2% (BldA) [Mass fraction] 99 % Ale Harris Other [place] [id number] Other Encounters Encounter Date Encounter Type Care Provider Facility Start: 06-11-2023 End: 06-11-2023 ambulatory ELOISE ALBERTO Not Available Start: 05-28-2023 End: 05-28-2023 ambulatory NIGEL ZACARIAS Not Available Start: 05-15-2023 End: 05-15-2023 ambulatory ELOISE ALBERTO Not Available Start: 05-13-2023 End: 05-14-2023 ambulatory KIMMY BLANCOZPATRICK Not Available Start: 05-01-2023 End: 05-01-2023 ambulatory NIGEL ZACARIAS Not Available Start: 04-10-2023 End: 04-10-2023 ambulatory NIGEL ZACARIAS Not Available Start: 04-09-2023 End: 04-10-2023 ambulatory NIGEL R ZACARIAS [facility] Start: 03-24-2023 Clinisync Result Encounter [...] Castillo RN [facility]- Medicine at [facility] Comment on above: Hypertension affecti ng in second trimester (Primary Dx); Dichorionic diamniotic twin in second trimester Start: 03-05-2023 End: 03-05-2023 Office outpatient visit 15 minutes Karoline Hopson MD Work Phone: [facility]- Medicine at [facility] Comment on above: History of sleeve ga strectomy (Primary Dx); History of induced hypertension Start: 02-27-2023 Orders Only Sivan Martinez RN Ma tern[facility]- Medicine at [facility] Comment on above: Hypertension affecti ng in second trimester; 16 weeks gestation of ; Dichorionic diamniotic twin in second trimester Start: 02-26-2023 End: 02-26-2023 ambulatory NIGEL ZACARIAS Not Available Start: 02-24-2023 Telephone encounter Sangita Thomas RN [facility] [place] Start: 02-07-2023 End: 02-07-2023 ambulatory [facility] Start: 02-07-2023 End: 02-07-2023 Office consultation new/estab patient 60 min Tatiana Yap MD Work Phone: [facility] [place] Comment on above: Hypertension affecti ng in second trimester (Primary Dx); 16 weeks gestation of ; Dichorionic diamniotic twin in second trimester; H/O gastric sleeve Start: 02-05-2023 End: 02-05-2023 ambulatory NIGEL ZACARIAS Not Available Start: 02-05-2023 Chart abstracting Tatiana Yap MD Work Phone: [facility] [place] Start: 02-04-2023 End: 02-04-2023 ambulatory MARGOT G YAW Not Available Start: 01-15-2023 End: 01-15-2023 ambulatory NIGEL ZACARIAS Not Available Start: 01-07-2023 End: 01-07-2023 ambulatory MARGOT G YAW Not Available Start: 12-20-2022 End: 12-21-2022 ambulatory NIGEL ZACARIAS Not Available Start: 10-12-2022 End: 10-12-2022 ambulatory Lilia Daugherty Other [employer] Other Start: 10-12-2022 Office outpatient vi sit 15 minutes Lilia Daugherty [facility] [place] Start: 09-11-2022 End: 09-11-2022 ambulatory PATRICIA [facility] Start: 02-10-2022 End: 02-10-2022 ambulatory Ale Shields Other [facility] [employer] Other Start: 02-10-2022 Telephone encounter Ale Shields [facility] [address] Start: 02-08-2022 End: 02-08-2022 ambulatory Ale Kishor Shields Facility:[facility] Start: 02-08-2022 End: 02-08-2022 ambulatory BEER BREWER Ale Shields Work Phone: [facility] Work Phone: Start: 02-08-2022 End: 02-08-2022 Departed Referred BEER BREWER Ale Shields Work Phone: [facility] [place] Work Phone: Start: 01-08-2022 End: 01-09-[address] JAMEEL ABEBE Facility: Start: 12-31-2021 End: 01-01-[address] JAMEEL ABEBE Facility: Start: 11-28-2021 End: 11-28-2021 ambulatory None Provider Facility:[facility] Start: 11-28-2021 End: 11-29-[address] JAMEEL ABEBE Facility: Start: 11-22-2021 End: 11-23-2021 ambulatory NONE LISTED REQUEST Facility: Start: 10-17-2021 End: 10-18-2021 ambulatory NONE LISTED REQUEST Facility: Start: 08-03-2021 End: 08-04-[address] JAMEEL ABEBE Facility: Start: 05-16-2021 End: 05-17-2021 Evaluation and management of inpatient Patricia Alka Mars DO Work Phone: [facility] Comment on above: Post-op pain (Primar y Dx) Start: 05-14-2021 End: 05-19-2021 ambulatory [facility] [place] [facility] Start: 05-02-2021 End: 05-06-2021 Subsequent hospital visit by physician Dwight Pat Rm 1 [facility] Pre-Admit Testing Start: 12-04-2020 End: 12-09-2020 [facility] Start: 12-04-2020 Office outpatient vi sit 15 minutes Ale Gigaby [facility] [place] Start: 10-20-2020 End: 10-20-2020 Subsequent hospital visit by physician Patricia Mars DO Work Phone: [facility] [place] Start: 09-06-2020 End: 09-07-2020 ambulatory IKE ANGEL R[facility]so [facility] Start: 09-06-2020 End: 09-06-2020 Subsequent hospital visit by physician [facility] Sleep Rm 1 [facility] Comment on above: LYNN (obstructive sle ep apnea) Start: 05-28-2017 End: 05-29-2017 Ambulatory Neo Anderson Facility:[id number] Procedures Date Procedure Procedure Detail Performing Clinician Start: 03-24-2023 [facility] UA (CLEAN/CATCH) DIRECTOR PROFESSIONAL SERVICES/MICRO IF IND. Nigel Zacarias DO Work Phone: Start: 03-19-2023 Urnls dip stick/tabl et rgnt non-auto w/o micrscp Eloise BURROUGHS Work Phone: Start: 02-12-2023 Blood count complete automated Tatiana Yap MD Work Phone: Start: 12-20-2022 Antibody screen Tatinaa allison MD Work Phone: Start: 12-20-2022 HIV [...] Start: 05-02-2021 Assay of nicotine Sim [employer] Work Phone: Start: 05-02-2021 Basic metabolic pane l calcium total Patricia Mars DO Work Phone: Start: 05-02-2021 Radiologic exam ches t 2 views Patricia Mars DO Work Phone: Start: 05-02-2021 Ecg routine ecg w/le ast 12 lds i&r only aPtricia Mars DO Work Phone: Start: 06-14-2020 Microscopic observat ion [Identifier] in Cervix by Cyto stain Tatiana Yap MD Work Phone: Plan of Treatment Date Care Activity Detail Author Start: 03-05-2024 Adult BMI Screening Adult BMI Screen ing [employer] Start: 03-05-2024 Tobacco Screening [facility] Start: 03-05-2024 End: 03-05-2024 US MFM with or without consult US MFM with or without consult Imaging Routine Hypertension affecting in second trimester Dichorionic diamniotic twin in second trimester Expected: 03/05/2024 (Approximate), Expires: 03/05/2024 [facility] Work Phone: Comment on above: Expected: 03/05/2024 (Approximate), Expires: 03/05/2024 Start: 02-08-2024 Adult BMI Screening Adult BMI Screen ing [facility] Start: 02-08-2024 Tobacco Screening Tobacco Screening [facility] Start: 01-04-2024 Adult BMI Screening Adult BMI Screen ing [facility] Start: 01-04-2024 Tobacco Screening Tobacco Screening [facility] Start: 08-11-2023 DTaP,Tdap and Td Vaccines (7 - Td or Tdap) DTaP,Tdap and Td Vaccines (7 - Td or Tdap) [facility] Start: 08-11-2023 DTaP/Tdap/Td vaccine (7 - Td or Tdap) DTaP/Tdap/Td vaccine (7 - Td or Tdap) [facility] Start: 08-10-2023 Influenza vaccination Influenza Vacc ine (#1) [facility] Comment on above: Postponed from 10/11 (Patient Refused) Start: 06-15-2023 Screening for malign ant neoplasm of cervix Pap Smear [facility] Start: 04-10-2023 End: 04-10-2023 Patient encounter procedure [facility] [place] Start: 03-19-2023 End: 03-19-2024 CBC panel - Blood by Automated count CBC Lab Routine Diabetes mellitus screening Expected: 03/19/2023 (Approximate), Expires: 03/19/2024 [facility] Work Phone: Comment on above: Expected: 03/19/2023 (Approximate), Expires: 03/19/2024 Start: 03-19-2023 End: 03-19-2024 Measurement of glucose 1 hour after glucose challenge for glucose tolerance test Glucose tolerance, 1 hour Lab Routine Diabetes mellitus screening Expected: 03/19/2023 (Approximate), Expires: 03/19/2024 [facility] Comment on above: Expected: 03/19/2023 (Approximate), Expires: 03/19/2024 Start: 03-05-2023 End: 03-05-2023 Patient encounter procedure 03/05/2023 11:30 AM EST Office Visit Maternal- Medicine at [facility] [address] [place] [id number] Karoline Hopson MD [address] [place] [address] [facility]- Medicine at [facility] Start: 03-05-2023 End: 03-05-2023 Patient encounter procedure 03/05/2023 9:30 AM EST Appointment [facility] [address] [place] [id number] [facility] Start: 02-07-2023 End: 02-07-2023 Patient encounter procedure [facility] [place] Start: 10-11-2022 Influenza vaccination Influenza Vacc ine [facility] Start: 09-19-2022 Adult BMI Follow Up Plan Adult BMI Follow Up Plan [facility] Start: 02-08-2022 Bacteria identified in Urine by Culture Urine Culture [facility] Start: 01-08-2022 Hemoglobin A1c measurement A1C test (Diabetic or Prediabetic) [facility] Start: 10-11-2021 Influenza vaccination Flu vacc ine (Season Ended) [facility] Start: 07-14-2021 Hemoglobin A1c measurement A1C test (Diabetic or Prediabetic) [facility] Work Phone: Start: 06-18-2021 End: 06-18-2021 Patient encounter procedure 06/18/2021 Office Visit Bariatrics Deann Navarro, BEER BREWER - DRAW BENCH OPERATOR HELPER [address] [place] [phone] [facility] Start: 05-24-2021 End: 05-24-2021 Patient encounter procedure 05/24/2021 Office Visit Patricia Islas DO [address] [place] [address] [facility] Min Invasive Bariatric Surg Start: 05-16-2021 End: 05-16-2021 Admission to same day surgery center 05/16/2021 Surgery IP Unit Patricia Mars DO [address] [place] [address] XI ROBOTIC LAPAROSCOPIC GASTRECTOMY SLEEVE , LIVER BIOPSY, EGD- GI SCHEDULED [facility] Comment on above: XI ROBOTIC LAPAROSCO PIC GASTRECTOMY SLEEVE , LIVER BIOPSY, EGD- GI SCHEDULED Start: 05-16-2021 End: 05-16-2021 Laps gstrc rstrictiv px longitudinal gastrectomy GASTRECTOMY SLEEVE LAPAROSCOPIC ROBOTIC MORBID OBESITY, OBSTRUCTIVE SLEEP APNEA, GERD 05/16/2021 7:10 AM EDT [facility] Start: 05-16-2021 Subsequent hospital visit by physician 05/16/2021 Hospital Encounter IP Unit Patricia Mars DO [address] [facility] [address] [place] [address] [facility] Start: 05-13-2021 End: 05-13-2021 Patient encounter procedure 05/13/2021 Appointment Pre-Admission Testing [facility] PRE ADMIT Start: 05-10-2021 End: 05-10-2021 Patient encounter procedure 05/10/2021 Office Visit Bariatrics Patricia Mars DO [address] [facility] [address] [place] [address] [facility] Invasive Bariatric Surg Start: 11-22-2020 End: 11-22-2020 Nursing evaluation of patient and report 11/22/2020 Nurse Only Bariatrics [facility] Invasive Bariatric Surg Start: 11-06-2020 End: 11-06-2020 Patient encounter procedure [facility] Start: 11-03-2020 End: 11-03-2020 Patient encounter procedure 11/03/2020 Office Visit Bariatrics Deann Navarro, BEER BREWER - DRAW BENCH OPERATOR HELPER [address] [facility] [address] [address] [place] [id number] [facility] Start: 10-11-2020 Influenza vaccination Flu vaccine (# 1) [facility] Start: 09-28-2020 End: 09-28-2020 Patient encounter procedure 09/28/2020 Office Visit Bariatrics RamonDeann Kishor, BEER BREWER - DRAW BENCH OPERATOR HELPER [address] [place] [address] [facility] Start: 09-01-2015 Screening for malign ant neoplasm of cervix [facility] Start: 2009 HIV screening HIV screen [facility] Start: 2006 COVID-19 Vaccine (1) COVID-19 Vaccin e (1) [facility] Work Phone: Start: 2006 Depression Screen Depression Screen [facility] Start: 2006 [email or web address] Start: 2005 HPV vaccine (1 - 2-d ose series) HPV vaccine (1 - 2-dose series) [facility] Start: 2000 Pneumococcal 0-64 ye ars Vaccine (1 of 2 - PPSV23) Pneumococcal 0-64 years Vaccine (1 of 2 - PPSV23) [facility] [address] Phone: Start: 09-01-1999 COVID-19 Vaccine (1) COVID-19 Vaccin e (1) [facility] Start: 09-01-1995 Varicella vaccine (1 of 2 - 2-dose childhood series) Varicella vaccine (1 of 2 - 2-dose childhood series) [facility] Start: 1994 Hepatitis C [facility]: 09-06-2020 Baseline Diagnostic Sleep Study Baseline Diagnostic Sleep Study Sleep Center Routine LYNN (obstructive sleep apnea) 1 Occurrences starting 09/06/2020 until 09/06/2020 [facility] [address] Phone: Comment on above: 1 Occurrences starti ng 09/06/2020 until 09/06/2020 End: 02-08-2024 Calcium [Mass/volume] in Serum or Plasma Calcium Lab Routine 16 weeks gestation of H/O gastric sleeve 1 Occurrences starting 02/07/2023 until 02/08/2024 [facility] Comment on above: 1 Occurrences starti ng 02/07/2023 until 02/08/2024 End: 02-08-2024 CBC panel - Blood by Automated count CBC without diff Lab Routine Hypertension affecting in second trimester 16 weeks gestation of Dichorionic diamniotic twin in second trimester 1 Occurrences starting 02/07/2023 until 02/08/2024 [employer] Phone: Comment on above: 1 Occurrences starti ng 02/07/2023 until 02/08/2024 End: 02-08-2024 Comprehensive metabolic 2000 panel - Serum or Plasma Comprehensive metabolic panel Lab Routine Hypertension affecting in second trimester 16 weeks gestation of Dichorionic diamniotic twin in second trimester 1 Occurrences starting 02/07/2023 until 02/08/2024 [facility] Comment on above: 1 Occurrences starti ng 02/07/2023 until 02/08/2024 Continuous pulse oximetry Pulse oximetry, continuous Respiratory Care Routine Every 4hr until discontinued starting 05/16/2021 [facility] Phone: Comment on above: Every 4hr until disc ontinued starting 05/16/2021 End: 02-08-2024 Cyanocobalamin vitamin b-12 Vitamin B12 Lab Routine 16 weeks gestation of H/O gastric sleeve 1 Occurrences starting 02/07/2023 until 02/08/2024 [facility] Comment on above: 1 Occurrences starti ng 02/07/2023 until 02/08/2024 End: 02-08-2024 ECG 12 lead ECG 12 lead ECG Routine Hypertension affecting in second trimester 16 weeks gestation of Dichorionic diamniotic twin in second trimester 1 Occurrences starting 02/07/2023 until 02/08/2024 [facility]: 1 Occurrences starti ng 02/07/2023 until 02/08/2024 End: 02-08-2024 Folate Folate Lab Routine 16 weeks gestation of H/O gastric sleeve 1 Occurrences starting 02/07/2023 until 02/08/2024 [facility] Comment on above: 1 Occurrences starti ng 02/07/2023 until 02/08/2024 End: 02-08-2024 Iron and TIBC Iron and TIBC Lab Routine 16 weeks gestation of H/O gastric sleeve 1 Occurrences starting 02/07/2023 until 02/08/2024 [facility] Comment on above: 1 Occurrences starti ng 02/07/2023 until 02/08/2024 End: 02-08-2024 LDH LDH Lab Routine Hypertension affecting in second trimester 16 weeks gestation of Dichorionic diamniotic twin in second trimester 1 Occurrences starting 02/07/2023 until 02/08/2024 [facility] Comment on above: 1 Occurrences starti ng 02/07/2023 until 02/08/2024 End: 02-08-2024 Natriuretic peptide B [Mass/volume] in Blood B-type natriuretic peptide Lab Routine Hypertension affecting in second trimester 16 weeks gestation of Dichorionic diamniotic twin in second trimester 1 Occurrences starting 02/07/2023 until 02/08/2024 [facility] Comment on above: 1 Occurrences starti ng 02/07/2023 until 02/08/2024 Oxygen therapy [[facility] Data Set] Initiate Oxygen Therapy Protocol Respiratory Care Routine As Needed until discontinued starting 05/16/2021 [facility] Phone: Comment on above: As Needed until disc ontinued starting 05/16/2021 End: 02-08-2024 Protein creat ratio Protein creat ratio Lab Routine Hypertension affecting in second trimester 16 weeks gestation of Dichorionic diamniotic twin in second trimester 1 Occurrences starting 02/07/2023 until 02/08/2024 [facility] Comment on above: 1 Occurrences starti ng 02/07/2023 until 02/08/2024 End: 02-08-2024 Protein, urine, 24 hour Protein, urine, 24 hour Lab Routine Hypertension affecting in second trimester 16 weeks gestation of Dichorionic diamniotic twin in second trimester 1 Occurrences starting 02/07/2023 until 02/08/2024 [facility] Comment on above: 1 Occurrences starti ng 02/07/2023 until 02/08/2024 Spirometry panel Incentive isiah metry Respiratory Care Routine Every 2hr while awake until discontinued starting 05/16/2021 [facility] Phone: Comment on above: Every 2hr while awak e until discontinued starting 05/16/2021 Surgical Pathology Surgical Path ology Lab Routine Release Upon Ordering for 1 Occurrences starting 05/16/2021 [facility] Work Phone: Comment on above: Release Upon Orderin g for 1 Occurrences starting 05/16/2021 End: 02-08-2024 Thiamin Vitamin B1, whole blood Thiamin Vitamin B1, whole blood Lab Routine 16 weeks gestation of H/O gastric sleeve 1 Occurrences starting 02/07/2023 until 02/08/2024 [facility] Comment on above: 1 Occurrences starti ng 02/07/2023 until 02/08/2024 End: 02-08-2024 Urate [Mass/volume] in Serum or Plasma Uric acid Lab Routine Hypertension affecting in second trimester 16 weeks gestation of Dichorionic diamniotic twin in second trimester 1 Occurrences starting 02/07/2023 until 02/08/2024 [facility] Comment on above: 1 Occurrences starti ng 02/07/2023 until 02/08/2024 End: 02-08-2024 Vitamin D 25 hydroxy Vitamin D 25 hydroxy Lab Routine 16 weeks gestation of H/O gastric sleeve 1 Occurrences starting 02/07/2023 until 02/08/2024 [facility] Comment on above: 1 Occurrences starti ng 02/07/2023 until 02/08/2024 Immunizations Immunization Date Immunization Notes Care Provider Jerry luther 11-12-2016 tuberculin skin test ; purified protein derivative solution, intradermal Tatiana Yap MD Work Phone: [facility] 08-10-2013 tetanus toxoid, redu yemi diphtheria toxoid, and acellular pertussis vaccine, adsorbed Tatiana Yap MD Work Phone: [facility] 10-03-1999 diphtheria, tetanus toxoids and acellular pertussis vaccine Tatiana Yap MD Work Phone: [facility] 10-03-1999 diphtheria, tetanus toxoids and acellular pertussis vaccine, unspecified formulation Eloise BURROUGHS Work Phone: [facility] 10-03-1999 hepatitis B vaccine, pediatric or pediatric/adolescent dosage Tatiana Yap MD Work Phone: [facility] 10-03-1999 measles, mumps and rubella virus vaccine Tatiana Yap MD Work Phone: [facility] 10-03-1999 poliovirus vaccine, inactivated Tatiana Yap MD Work Phone: [facility] 01-14-1996 diphtheria, tetanus toxoids and acellular pertussis vaccine Tatiana Yap MD Work Phone: [facility] 01-14-1996 diphtheria, tetanus toxoids and pertussis vaccine Eloise BURROUGHS Work Phone: [facility] 01-14-1996 haemophilus influenz ae type b vaccine, conjugate unspecified formulation Tatiana Yap MD Work Phone: [facility] 01-14-1996 measles, mumps and rubella virus vaccine Tatiana Yap MD Work Phone: [facility] 05-21-1995 diphtheria, tetanus toxoids and acellular pertussis vaccine Tatiana Yap MD Work Phone: [facility] 05-21-1995 DTP-Haemophilus influenzae type b conjugate vaccine Eloise BURROUGHS Work Phone: [facility] 05-21-1995 haemophilus influenz ae type b vaccine, conjugate unspecified formulation Tatiana Yap MD Work Phone: [facility] 05-21-1995 poliovirus vaccine, inactivated Tatiana Yap MD Work Phone: [facility] 05-21-1995 trivalent poliovirus vaccine, live, oral Eloise BURROUGHS Work Phone: [facility] 02-21-1995 diphtheria, tetanus toxoids and acellular pertussis vaccine Tatiana Yap MD Work Phone: [facility] 02-21-1995 DTP-Haemophilus influenzae type b conjugate vaccine Eloise BURROUGHS Work Phone: [facility] 02-21-1995 haemophilus influenz ae type b vaccine, conjugate unspecified formulation Tatiana Yap MD Work Phone: [facility] 02-21-1995 hepatitis B vaccine, pediatric or pediatric/adolescent dosage Tatiana Yap MD Work Phone: [facility] 02-21-1995 poliovirus vaccine, inactivated Tatiana Yap MD Work Phone: [facility] 02-21-1995 trivalent poliovirus vaccine, live, oral Eloise BURROUGHS Work Phone: [facility] 1994 diphtheria, tetanus toxoids and acellular pertussis vaccine Tatiana Yap MD Work Phone: [facility] 1994 DTP-Haemophilus influenzae type b conjugate vaccine Eloise BURROUGHS Work Phone: [facility] 1994 haemophilus influenz ae type b vaccine, conjugate unspecified formulation Tatiana Yap MD Work Phone: [facility] 1994 hepatitis B vaccine, pediatric or pediatric/adolescent dosage Tatiana Yap MD Work Phone: [facility] 1994 poliovirus vaccine, inactivated Tatiana Yap MD Work Phone: [facility] 1994 trivalent poliovirus vaccine, live, oral Eloise BURROUGHS Work Phone: [facility] 1994 hepatitis B vaccine, pediatric or pediatric/adolescent dosage Tatiana Yap MD Work Phone: [facility] Payers Date Payer Category Payer Medicaid [id number] 2022 Medicaid [id number] 2022 Self-pay 2019 Unknown [id number] [id number]. [id number] 1994 Unknown [id number] 2.16.840.1.652104.3.579.2. 173 1994 Unknown [id number] 2.16.840.1.830405.3.579.2. 173 1994 Unknown [id number] 2.16.840.1.104845.3.579.2. 173 1994 Unknown [id number] 2.16.840.1.852821.3.579.2. 593 1994 Unknown [id number] 2.16.840.1.181202.3.579.2. 593 1994 Unknown [id number] 2.16.840.1.506901.3.579.2. 593 1994 Unknown [id number] 2.16.840.1.028414.3.579.2. 593 1994 Unknown [id number] 2.16.840.1.585462.3.579.2. 593 1994 Unknown [id number] 2.16.840.1.366764.3.579.2. 593 1994 Unknown [id number] 2.16.840.1.381328.3.579.2. 175 1994 Unknown [id number] 2.16.840.1.459163.3.579.2. 1286 1994 Unknown [id number] 2.16.840.1.380212.3.579.2. 128 1994 Unknown [id number] 2.16.840.1.396417.3.579.2. 128 1994 Unknown [id number] 2.16.840.1.931624.3.579.2. 128 1994 Unknown [id number] 2.16.840.1.675066.3.579.2. 128 1994 Unknown [id number] 2.16.840.1.138726.3.579.2. 1259 1994 Unknown [id number] 2.16.840.1.331400.3.579.2. 1259 1994 Unknown [id number] 2.16.840.1.735638.3.579.2. 1259 1994 Unknown [id number] 2.16.840.1.362034.3.579.2. 9 1994 Unknown [id number] 2.16.840.1.650457.3.579.2. 1258 1994 Unknown [id number] 2.16.840.1.009857.3.579.2. 1258 1994 Unknown [id number] 2.16.840.1.072697.3.579.2. 1258 1994 Unknown [id number] 2.16.840.1.094296.3.579.2. 1258 1994 Unknown [id number] 2.16.840.1.223768.3.579.2. 1258 1994 Unknown [id number] 2.16.840.1.067333.3.579.2. 1258 1994 Unknown [id number] 2.16.840.1.130179.3.579.2. 1258 1994 Unknown [id number] 2.16.840.1.576277.3.579.2. 1258 1994 Unknown [id number] 2.16.840.1.923463.3.579.2. 1259 1959 Private Health Insurance [id number] 1.2.840.024267.1.13.239.2. 7.3.428652.315 Private Health Insurance [facility] [id number] Unknown [id number] 2.16.840.1.739086.3.579.2. 531 Social History Date Type Detail Facility Start: 09-01-2020 End: 09-28-2020 Tobacco smoking status [facility] Current every day smoker [facility] Phone: Start: 09-01-2020 End: 07-03-2022 Cigarettes smoked current (pack per day) - Reported [facility] Start: 09-01-2020 End: 07-03-2022 Tobacco use and exposure Never used [facility] Phone: Start: 09-01-2020 End: 09-28-2020 Alcohol intake Current drinker of alcohol (finding) [facility] Phone: Start: 12-23-2019 Alcohol Comment weekly [facility] Phone: Start: 1994 Sex Assigned At Not on file [facility] Phone: Start: 04-22-2021 End: 05-16-2021 Exposure to SARS-CoV-2 (event) Not sure [facility] Exposure to SARS-CoV -2 (event) Yes [facility] Start: 01-19-2021 End: 07-03-2022 Tobacco smoking status [facility] Ex-smoker [facility] Start: 02-11-2008 End: 11-19-2020 History of tobacco use Current smoker [facility] Phone: Start: 05-02-2021 End: 02-26-2023 Alcohol intake Ex-drinker (finding) [facility] Phone: Start: 08-17-2018 End: 07-03-2022 Sex Assigned At [facility] Start: 1994 Sex Assigned At Female [facility] Start: 02-11-2008 End: 02-11-2020 History of tobacco use Cigarette Smoker [facility] History of tobacco use Tobacco U se Types Packs/Day Years Used Date Smoking Tobacco: Former Cigarettes Quit: 2020 Vaping/E-cigarettes Smokeless Tobacco: Former Quit: 11[facility]06/2020 [facility] Start: 02-05-2023 Tobacco use and exposure Former smokeless tobacco user [email or web address] End: 11-06-2020 History of tobacco use User of smokeless tobacco [facility] Frequency of Communication with Friends and Family More than three times a week [email or web address] Start: 08-17-2018 Education 12 [email or web address] Start: 05-18-2022 Alcohol Comment social, every other weekend [email or web address] Start: 10-31-2022 [facility] Within the last year , have [...] of: HEIKE Meeks documented in this encounter [facility] 03-05-2023 History of Presen t illness Narrative Headache/epigastric pain/blurry vision/swelling? No Cramping/contractions? No Abnormal vaginal discharge? No Spotting or vaginal bleeding? No Loss of fluid like your water may have broken? No Recent ER visits or hospitalizations? Patient reports visit to [place] approximately two weeks ago to r/o ROM [...] you for allowing me to participate in [facility]. If there are any questions, please do not hesitate to call me. Sincerely, KAROLINE HOPSON MD documented in this encounter [facility] 02-24-2023 Miscellaneous Notes Incoming telephone call from patient with concerns of leakage of fluid. Patient called in and stated that she is Leaking clear fluid and has been. Juvenile Court Judge asked if she had spoken to her OB provider and she said that she had, but they told her that she is basically too early to be leaking any fluid. Juvenile Court Judge recommended patient present to the nearest emergency room to be evaluated. Patient verbalized understanding and had no further questions. documented in this encounter [facility] 02-24-2023 Telephone encounter Note Incoming telephone call from patient with concerns of leakage of fluid. Patient called in and stated that she is Leaking clear fluid and has been. Juvenile Court Judge asked if she had spoken to her OB provider and she said that she had, but they told her that she is basically too early to be leaking any fluid. Juvenile Court Judge recommended patient present to the nearest emergency room to be evaluated. Patient verbalized understanding and had no further questions. [facility] 02-07-2023 History of Presen t illness Narrative Headache/epigastric pain/blurry vision/swelling? Occasional headaches Cramping/contractions? No Abnormal vaginal discharge? No Spotting/vaginal bleeding? No Loss of fluid like your water may have broken? No Cats in the home? No Do you change the litter box? No Flu vaccine? No Genetic testing done this here or other office? Yes Have you been seen here at [facility] in a previous ? No Recent ER visits or hospitalizations? No Bring blood sugar log or meter with you today? (Please bring them with you for every visit at [facility]) N/A Traveled outside the country in [...] TESTS AND ULTRASOUND REPORTS: Referral records and [facility] chart were reviewed Pertinent Ultrasound findings are [...] operators who are performing tests using either [employer] or [employer] systems and is limited to laboratories that [...] repeat. Fact Sheet for Healthcare Providers: https://www.f da.gov/media/531803/download Fact Sheet for Patients: https://www.fda.gov/media/979205 /download HABITS: Patient activity no restrictions, diet no restrictions PHYSICAL EXAMINATION: BP 126/83 Pulse 76 Ht 170.2 cm (5' 7 ) Wt 98.9 kg (218 lb) LMP 10/17/2022 BMI 34.14 kg/m Well-appearing in no distress. Respirations not labored, speaking comfortably in full sentences Gravid abdomen OVERALL ASSESSMENT -Fina Kaufmanabealana Quirogawhitney is a pleasant 27 y.o. at 16w1d [...] a but with an anticipation of excellent usp outcomes. In regards to the spontaneous processes, [...] previously recommended threshold of 160/110. Reference: PMID: [id number]. Blood pressures do increase as progresses and [...] preeclampsia prevention as is recommended by the [place] [employer] Committee Opinion No. 743. [...] aspirin vs 10.3% no aspirin, p=0.45) (PMBID: [id number]). Given well-established benefits baby aspirin for the prevention of preeclampsia, I recommend initiating baby aspirin even in the setting of history of Joe-en-Y surgery. Micronutrient Dosing Recommendations: Calcium: recommend 1000-1200mg daily; if deficient, recommend 1800-25749 mg PO daily in divided doses Vitamin [...] sooner if clinically indicated Follow up in [facility] in 4 weeks for anatomy and clinic follow-up DISPOSITION: At this point the patient is in complete care of her cook pie. Patient does have ultrasound and office visit [...] procedures Referring and communicating with other health rn critical care (not separately reported) Documenting clinical information in the electronic or other health record Tatiana Yap MD Maternal- Medicine [facility] [address] [place] [address] [facility], the CDC, and other organizations representing maternal and public health professionals recommend that , , and lactating people and those considering receive the COVID-19 vaccination. Vaccination is the best method to reduce maternal and complications of SARS-CoV-2 infection. This document was created with [employer] technology. Though I make every effort to review the dictation as it is transcribed, on occasion the spoken word can be misinterpreted by the technology leading to inappropriate words, phrases, or sentences. This note is addressed to the requesting provider as a consultation for clinical guidance. Specific medical abbreviations are occasionally used and those are generally approved by the [place]?Board of?Obstetrics and?Gynecology?as well as?Maddison hodgson abbreviations. The above plan of care was based solely on the diagnoses for which a consultation was requested. ?More frequent testing may be indicated based on her other medical/obstetrical conditions. The management of other or medical conditions is beyond the scope of requested consultation and will continue to be followed by the primary cook pie or primary care provider. Note to patient: The Cures Act makes medical notes like these [...] of the practitioner. documented in this encounter [facility] Evaluation note Encounter Date Diagnosis Assessment [...] take Sudafed and/or Mucinex for congestion. Take nwnd-tew-hwquk er Robitussin or Delsym for cough. Follow-up with your family physician if no improvement in 2 to 3 days. Off work tomorrow. Oct, Cough (ICD-10 - R05.9) Oct, Bronchitis (ICD-10 - J40) Acute bronchitis material was printed [employer] Other 10-19-2022 NotePatient Education Materials [facility]s: [id number] History of Present illness Narrative* Payal Rcihardson - 05/17/2021 4:25 PM EDT CLINICAL PHARMACY [...] and patient voices understanding documented in this [facility] Phone: 1(527) 890-585404-07-2022 Hospital Discharge instructions* Instructions* Hannah Zavaleta RN - 05/17/2021 Discharge Instructions for Bariatric Surgery You had a Laparoscopic Sleeve Gastrectomy (17457) surgery to treat obesity. Recovery from this [...] scheduled appointment, please call the office at [phone]. Call Your Doctor If Any of the [...] sent through Care Everywhere. * Enoxaparin (Lovenox) ([place] Citizen) * Video: How to Give Yourself an Anticoagulant (Blood Thinner) Shot ([place] Citizen) documented in this [facility] Work Phone: [phone]) 180-223403-23-2022 Hospital Discharge instructions* Instructions* Kendal Wilhelm APRN - DRAW BENCH OPERATOR HELPER - 05/02/2021 Pre-operative Instructions NOTHING to eat [...] Day of Surgery/Procedure As a patient at [facility] you can expect quality medical and nursing care that is centered on your individual needs. Our goal is to make your surgical experience as comfortableas possible Directions to the Surgery Center The surgery Center at [facility] is located in the Emergency Room parking lot on [address] or there is additional parking across the street. The address is [address] [place] [address]. Please check in at the Surgery Center [...] on the day of surgery please contact [phone] or [phone] If you have any other questions regarding your procedure/surgery please call your surgeon's office. documented in this [facility] Phone: 1(968) 725-645003-23-2022 History of Present illness Narrative* Eloise Chi [...] syndrome) Under care of team 05/02/2021 pcp-Dr MelgozaShlvka-qzjmrnc-dvqx visit april 2021 Patient was evaluated in PAT & anesthesia guidelines were applied. NPO guidelines, medication instructions and scheduled arrival time were reviewed with patient. Anesthesia contacted: no Medical or cardiac clearance ordered: no, medical clearance obtained. LAURA Garcia CNP 05/02/21 11:53 AM documented in this [facility] Phone: 1(380) 557-792010-25-2021 Evaluation note* Encounter Date Diagnosis Assessment Notes Treatment Notes Treatment Clinical Notes Nov, Contact with and (suspected) exposure to other viral communicable diseases (ICD-10 - Z20.828) Nov, Viral URI with cough (ICD-10 - J06.9) No COVID test completed at this time. Advised patient that will tx as viral URI. Supportive care as directed, increase fluids and rest, Tylenol/Motrin as directed, rx of [place] and Flonase as directed, cool mist humidifier, [...] Patient care instructions given in writting by [facility] At Home document [place] [id number] Other Evaluation note* Diagnosis LYNN (obstructive sleep apnea) Obstructive sleep apnea (adult) (pediatric) documented in this encounter [facility] Phone: evaluation note* Diagnosis S/P laparoscopic sleeve gastrectomy- Primary Post-op pain Other acute postoperative pain documented in this encounter [facility] Phone: evaluation noteNo assessment information available [facility] Work Phone: Evaluation noteNo InformationNort [id number] Other Evaluation note* Diagnosis Hypertension affecting in second trimester- Primary 16 weeks gestation of Dichorionic diamniotic twin in second trimester H/O gastric sleeve [facility] Diagnosis Hypertension affecting in second trimester 16 weeks gestation of Dichorionic diamniotic twin in second trimester documented in this encounter [facility] SystemEvaluation note* Diagnosis Hypertension affecting in second trimester- Primary Dichorionic diamniotic twin in second trimester documented in this encounter [facility] SystemEvaluation note* Diagnosis History of sleeve gastrectomy- Primary History of induced hypertension documented in this encounter [facility] System[facility] note* Diagnosis Second trimester state, incidental Diabetes mellitus screening Screening for diabetes mellitus documented [facility] - Reported* Type Description Date Medical History METABOLIC SYNDROME Medical History SYNCOPE Medical History anxiety Surgical History WISDOM TEETH Surgical History TONSILECTOMY Surgical History ENDOSCOPY AND COLONSCOPY Surgical History C section Hospitalization History see above [facility] Other Hisetzm general Narrative - Reported* Type Description Date Medical History METABOLIC SYNDROME Medical History SYNCOPE Medical History anxiety Surgical History WISDOM TEETH Surgical History TONSILECTOMY Surgical History ENDOSCOPY AND COLONSCOPY Surgical History C section Surgical History gastric sleeve Hospitalization History see above [facility] Other Histtdb general Narrative - Reported* Type Description Date Medical History METABOLIC SYNDROME Medical History SYNCOPE Medical History anxiety Surgical History WISDOM TEETH Surgical History TONSILECTOMY Surgical History ENDOSCOPY AND COLONSCOPY Surgical History C section Surgical History gastric sleeve Surgical History cholcystectomy 09/10/2022 Hospitalization History see above [facility] Other InstructionsNot on filedocumented in this encounter [facility] filedocumented in this [facility] filedocumented in [facility] SystemInstructionsNot on filedocumented in this encounter [facility] SystemReason for visit Narrative* Auth/Cert Specialty Diagnoses / Procedures Referred By Cristal t Referred To Contact Diagnoses Morbid obesity (HCC) Obstructive sleep apnea GERD (gastroesophageal reflux disease) MORBID OBESITY, OBSTRUCTIVE SLEEP APNEA, GERD Procedures OH LAP, JAY RESTRICT PROC, LONGITUDINAL GASTRECTOMY XI ROBOTIC LAPAROSCOPIC GASTRECTOMY SLEEVE , LIVER BIOPSY, EGD- GI SCHEDULED Patricia Mars, [address] [facility] [address] [place] [address] [address] [place] [address] Referral ID Status Reason Start Date Expiration Date Visits Re quested Visits Authorized [id number] 1 1 [facility] Phone: Summary Purpose Family History No Family [...] Referred By Contact Referred To Contact [facility] Diagnoses LYNN (obstructive sleep apnea) Procedures Baseline Diagnostic Sleep Study Ike Moreno MD [address] [address] Specialty Diagnoses / Procedures Referred By Contac t Referred To Contact Diagnoses Hypertension affecting in second trimester 16 weeks gestation of Dichorionic diamniotic twin in second trimester Procedures ECG 12 lead Tatiana Yap MD [address] [place] [address] Referral ID Status Reason Start Date Expiration Date V isits Requested Visits Authorized [id number] Pending Review 02/07/2023 02/07/2024 1 1 Specialty Diagnoses / Procedures Referred By Contac t Referred To Contact Maternal and Medicine Diagnoses Hypertension affecting in second trimester Dichorionic diamniotic twin in second trimester Procedures MFM with or without consult Karoline Hopson MD [address] [place] [address] [facility] Maternal Med [address] [place] [address] Referral ID Status Reason Start Date Expiration Date V isits Requested Visits Authorized [id number] Pending Review 03/05/2023 03/04/2024 1 1 Chief Complaint and Reason for Visit Chief Complaint Dysuria Additional Source Comments INFORMATION SOURCE (unrecogn ized section and content) DATE CREATED AUTHOR 07/31/2017 [facility] DATE CREATED AUTHOR AUTHOR'S ORGANIZ ATION 05/21/2021 [facility] DATE CREATED AUTHOR AUTHOR'S ORGANIZ ATION 12/03/2021 [facility] DATE CREATED AUTHOR AUTHOR'S ORGANIZ ATION 01/12/2022 [facility] DATE CREATED AUTHOR AUTHOR'S ORGANIZ ATION 02/11/2022 [facility] DATE CREATED AUTHOR AUTHOR'S ORGANIZ ATION 09/13/2022 [facility] DATE CREATED AUTHOR AUTHOR'S ORGANIZ ATION 02/09/2023 [facility] DATE CREATED AUTHOR AUTHOR'S ORGANIZ ATION 04/12/2023 [facility] DATE CREATED AUTHOR AUTHOR'S ORGANIZ ATION 06/12/2023 [facility] EPIC Reason for Visit (unrecogniz ed section and content) Status Reason Specialty Diagnoses / Procedures Referred By Contact Referred To Contact [facility] Diagnoses LYNN (obstructive sleep apnea) Procedures Baseline Diagnostic Sleep Study Ike Moreno MD [address] [facility] [address] [place] [address] Status Reason Specialty Diagnoses / Procedures Referre d By Contact Referred To Contact Diagnoses K21.9 GERD E66.9 OBESITY Procedures [place] EGD TRANSORAL BIOPSY SINGLE/MULTIPLE EGD BIOPSY Patricia Mars DO [address] [facility] [address] [place] [address] [facility] Reason Comments twin HX C/S HX gastric sleeve HX PTD Reason Comments Dichorionic Diamniotic Twin Hypertension Reason Comments Routine Visit Care Teams (unrecognized sec tion and content) Watch Repairer Apprentice Relationship Specialty Start Date End Date Stephane Martin MD [address] [place] [address] PCP - General 05/17/20 Watch Repairer Apprentice Relationship Specialty Start Date End Date Stephane Martin MD [address] [place] [address] PCP - General 05/17/20 Team Status: Inactive Member Role Status Dates Ale Shields APRN Attending Provider Active Watch Repairer Apprentice Relationship Specialty Start Date End Date Margot Toure DO [address] [facility] [place] [address] PCP - General Family Medicine 01/03/23 Watch Repairer Apprentice Relationship Specialty Start Date End Date Margot Toure DO [address] [facility] [place] [address] PCP - General Family Medicine 01/03/23 Watch Repairer Apprentice Relationship Specialty Start Date End Date Margot Toure DO [address] [facility] [place] [address] PCP - General Family Medicine 01/03/23 Watch Repairer Apprentice Relationship Specialty Start Date End Date Margot Toure DO [address] [facility] [place] [address] PCP - General Family Medicine 01/03/23 Watch Repairer Apprentice Relationship Specialty Start Date End Date Margot Toure DO [address] [facility] [place] [address] PCP - General Family Medicine 01/03/23 Watch Repairer Apprentice Relationship Specialty Start Date End Date Margot Toure DO [address] [facility] [place] [address] PCP - General Family Medicine 01/03/23 Watch Repairer Apprentice Relationship Specialty Start Date End Date Margot Toure DO [address] [facility] [place] [address] PCP - General Family Medicine 07/01/22 Watch Repairer Apprentice Relationship Specialty Start Date End Date Margot Toure DO [address] [place] [address] PCP - General Family Medicine 07/01/22 Ordered [...] (Given - Provider: Sharmin Sam APRN - PAPER CONE GRADER) ceFAZolin (ANCEF) 3000 mg in sterile water [...] Zavaleta RN)1330 (Given - Provider: Hannah Zavaleta RN)2100 (Due) [...] Discontinued 1530 (Given - Provider: Hannah Zavaleta RN)4 (Given - Provider: Nohemy Underwood RN) 0609 [...] (NoRateChange - Provider: Sharmin Sam APRN - PAPER CONE GRADER)0856 (Anesthesia Volume Adjustment - Provider: Sharmin Sam APRN - PAPER CONE GRADER) 1631 (Stopped - Provider: Hannah Zavaleta RN) lactated ringers infusion IntraVENous, at 125 mL/hr, CONTINUOUS, Starting on Fri05/16/21 at 1030, Post-op 1026 (New Bag - Provider: Hannah Zavaleta RN)1643 (New Bag - Provider: Hannah Zavaleta RN) 0018 (New Bag - Provider: Nohemy Underwodo RN)0951 (New Bag - Provider: Hannah Zavaleta [...] spasms 0758 (Given - Provid er: Hannah Waqar, RN)1644 (Given - Provider: Hannah Zavaleta RN) [...] to back table, 1000 ml. for suction cardiology physician assistant) sodium chloride flush 0.9 % injection [...] BE BASED ON THE PRIMARY CLINICAL RECORDS. [employer] provides no warranty or guarantee of the accuracy or completeness of information in this document.
[2023-06-13 08:38] VITALS: BP 97/65; PULSE 103
[2023-06-13] MEDS: BETAMETHASONE ACE/BETAMETHASONE SOD PHOS 30 MG/5 ML 12 MG IM (08:40)
== END 2023-06-13 08:42 | disposition home or self-care (01) ==
LOC: FBCO 07:08 → FBC 07:11 → FBCO 08:32 → FBC 08:34
PROVIDERS: Visit Provider Obstetrics & Gynecology
DX: O30.043 Twin pregnancy, dichorionic/diamniotic, third trimester (principal)
CPT/HCPCS: J0702

== ENCOUNTER 2023-06-16 07:03 | Outpatient (OUT) | payer MEDICAID, SELFPAY ==
--- OUTSIDE RECORDS SUMMARY | 2023-06-16 07:07 | XMS_ITS | CCD ---
Author Organization [facility] Care Team Providers Care Railroad Inspector Name Role Phone Neo Anderson Unavailable Unavailable Monica Neo Unavailable Unavailable Jose Maria Ortega MD, [facility] Primary Care Provider DOC OKEEFE Referring Unavailable JOSE MARIA ORTEGA, STEPHANE Primary Care Unavailtina e DOC OKEEFE Referring Unavailable JOSE MARIA ORTEGA, [facility] Primary Care Unavailabl e IKE MORENO Referring Unavailable JOSE MARIA ORTEGA, [facility] Primary Care Unavailabl e Ale [...] Yaw DO, Margot G Primary Care Provider [phone] ZACARIAS, NIGEL R Referring Unavailable YAW, MARGOT [...] sources) Ibuprofen; Translations: [IBUPROFEN] Drug Allergy 09-19-2021 [facility] Medications Current Medications Medication Drug Class(es) Dates [...] 30 mg oral tablet (1 source) Uncompetitive A-eksltg-K-aspartate Receptor Antagonist, Sigma-1 Agonist Start: 2020 take 1 tablet by mouth every eight hours [place] DMT 30-30 MG 1 tablet Orally every [...] Iron (2 sources) Iron Active lactobacillus acidophilus [id number] unt / pectin 100 mg oral tablet [...] extended release oral tablet (2 sources) Uncompetitive U-nozubg-C-asparta te Receptor Antagonist, Sigma-1 Agonist Start: 01-14-2022 [...] Interpretation Reference Range Facility TB UA (CLEAN/CATCH) CHILD AND ADOLESCENT PSYCHOLOGIST/LISA RO IF IND.on 03-24-[address]INE [address] [facility]care BLOOD URINE Negative NEGATIVE [facility] re Clarity (U) CLEAR CLEAR [facility] Color (U) YELLOW YELLOW [facility] GLUCOSE URINE UA Negative NEGATIVE mg/dL [facility] Interpretation and review of laboratory results Abnormal [facility] Ketones Ql (U) TRACE Abnormal NEGATIVE mg/dL [facility]althcare Leukocyte esterase Test strip Ql (U) Negative NEGATIVE [facility] NITRITE URINE Negative NEGATIVE [facility] pH (U) 6.0 [pH] 5.0 - 9.0 [facility] PROTEIN URINE TRACE NEG/TRACE mg/dL [facility] SPECIFIC GRAVITY URINE >=1.030 Abnormal 1.005 - 1.025 [facility] URINE MICROSCOPIC INDICATED NO [facility] UROBILINOGEN URINE 0.2 EU/dL 0.2 - 1.0 EU/dL [facility] Urinalysis macro (dipstick) panel (U)on 03-19-2023 Bilirubin, UA Negative Negative - 4(70) +++ mg/dL [facility] Blood, UA Negative Negative - 50 Krzysztof/mcL [facility] Clarity, UA Clear [facility] re Color, [facility]A [facility] Glucose, UA Negative Negative - 1999(110) ++++ mg/dL [facility] Interpretation and review of laboratory results Abnormal [facility] re Ketones, UA Negative Negative - 160(16) ++++ mg/dL [facility] Leukocytes, UA Negative Negative - 500+++ Mckayla/mcL [facility] Nitrite, UA Negative Negative - Positive [facility] pH, UA 6.0 5 - 9 [facility] e Protein, UA Positive Negative - 1999(20) ++++ mg/dL [facility] Spec Grav, UA 1.030 1 - 1.03 [facility] Urobilinogen, UA 0.2 0.2 - 12 mg/dL [facility] e CBC without diffon External Hematocrit Hct 33.7 [facility] Comment on above: See attached External Hemoglobin 10.9 [facility] Comment on above: See attached External MCH 29.0 [facility]th System Comment on above: See attached External Mchc 32.3 [facility] ealt System Comment on above: See attached External Mcv 89.6 [facility] Comment on above: See attached External Mpv 9.7 [facility] Comment on above: See attached External Platelet Count 268 [facility] Comment on above: See attached External Rbc Count 3.76 [facility] Comment on above: See attached External Rdw 13.4 [facility] Comment on above: See attached External Wbc Count 9.5 [facility] Comment on above: See attached [facility] Urine protein creatinine rat ioon 02-27-2023 Protein/Creatinine (U) [Mass ratio] 0.10 mg/g [facility] Comment on above: see attached [facility] Ultrasound - Officeon 2022 Radiology Study observation (narrative) [facility] HIV 1&2 AB/AG Screen (P24 AG )on 12-20-2022 HIV 1&2 AB/AG Non-Reactive [facility] Hepatitis B surface antigeno n 12-20-2022 Hepatitis B Surface Antigen Negative [facility] No Panel Informationon 12-20 [facility] Rubella IGG immune statuson 12-20-2022 Rubella immune IgG 1.96 [facility] Syphilis Total(Unknown Syphi lis Status)on 12-20-2022 Syphilis Non-Reactive [facility] - Officeon 2022 SEE SCANNED REPORt MANUAL LY TRANSCRIBED RESULTS [facility] COVID + FLU Quick Testingon 10-12-2022 SARS-CoV-2 (COVID-19) RNA BECCA+probe Ql (Unsp spec) negtaive [employer] [facility] [employer] Other COVID + FLU Quick Testing Negative [employer] [facility] [employer] Other Basic Metabolic Profon 09-11 Anion gap [Moles/Vol] 9 mmol/L Normal 9-17 [facility] Comment on above: Performed By: #### B FIFI CBC, PT #### [employer] [address] [place] [address] [phone] Junior Account Manager: Anthony Aguilar MD Calcium [Mass/Vol] 8.8 mg/dL Normal 8.6-10.4 [facility] Comment on above: Performed By: #### B FIFI CBC, PT #### [employer] [address] [place] [address] Junior Account Manager: Anthony Aguilar MD Chloride [Moles/Vol] 106 mmol/L Normal 98-107 [facility] Comment on above: Performed By: #### B FIFI CBC, PT #### [employer] [address] [place] [phone] Junior Account Manager: Anthony Aguilar MD CO2 [Moles/Vol] 23 mmol/L Normal 20-31 [facility] Comment on above: Performed By: #### B MP, CBC, PT #### [facility] [place] [employer] [address] [place] [phone] Junior Account Manager: Anthony Aguilar MD Creatinine [Mass/Vol] 0.7 mg/dL Normal 0.5-0.9 [facility] Comment on above: Performed By: #### B MP, CBC, PT #### [facility] [place] [employer] [address] [place] [phone] Junior Account Manager: Anthony Aguilar MD GFR/1.73 sq M.predicted among non-blacks MDRD (S/P/Bld) [Vol rate/Area] mL/min/{1.73_m2} Normal >60 [facility] Comment on above: Result Comment: These [...] By: #### B FIFI, CBC, PT #### [facility] [place] [employer] [address] [place] [phone] Junior Account Manager: Anthony Aguilar MD Glucose [Mass/Vol] 79 mg/dL Normal 70-99 [facility] Comment on above: Performed By: #### B FIFI, CBC, PT #### [facility] [place] [employer] [address] [place] [phone] Junior Account Manager: Anthony Aguilar MD Potassium [Moles/Vol] 4.1 mmol/L Normal 3.7-5.3 [facility] Comment on above: Performed By: #### B FIFI, CBC, PT #### [facility] [place] [employer] [address] [place] [phone] Junior Account Manager: Anthony Aguilar MD Sodium [Moles/Vol] 138 mmol/L Normal 135-144 [facility] Comment on above: Performed By: #### B MP, CBC, PT #### [facility] [place] [employer] [address] [place] [phone] Junior Account Manager: Anthony Aguilar MD Urea nitrogen [Mass/Vol] 11 mg/dL Normal 6-20 [facility] Comment on above: Performed By: #### B MP, CBC, PT #### [facility] [place] [employer] [address] [place] [phone] Junior Account Manager: Anthony Aguilar MD CBCon 09-11-2022 Erythrocyte distribution width (RBC) [Ratio] 13.2 % Normal 11.8-14.4 [facility] Comment on above: Performed By: #### B MP, CBC, PT #### [facility] [place] [employer] [address] [place] [phone] Junior Account Manager: Anthony Aguilar MD Hematocrit (Bld) [Volume fraction] 41.6 % Normal 36.3-47.1 [facility] Comment on above: Performed By: #### B FIFI, CBC, PT #### [facility] [place] [employer] [address] [place] [phone] Junior Account Manager: Anthony Aguilar MD Hemoglobin (Bld) [Mass/Vol] 13.3 g/dL Normal 11.9-15.1 [facility] Comment on above: Performed By: #### B MP, CBC, PT #### [facility] [address] [place] [phone] Junior Account Manager: Anthony Aguilar MD MCH (RBC) [Entitic mass] 28.3 pg Normal 25.2-33.5 [facility] Comment on above: Performed By: #### B MP, CBC, PT #### [facility] [address] [place] [phone] Junior Account Manager: Anthony Aguilar MD MCHC (RBC) [Mass/Vol] 32.0 g/dL Normal 28.4-34.8 [facility] Comment on above: Performed By: #### B MP, CBC, PT #### [address] [address] Junior Account Manager: Anthony Aguilar MD MCV (RBC) [Entitic vol] 88.5 fL Normal 82.6-102.9 [facility] Comment on above: Performed By: #### B MP, CBC, PT #### [address] [phone] Junior Account Manager: Anthony Aguilar MD NRBC Automated 0.0 per 100 WBC Normal 0.0 [facility] Comment on above: Performed By: #### B MP, CBC, PT #### [address] [address] Junior Account Manager: Anthony Aguilar MD Platelet mean volume (Bld) [Entitic vol] 9.7 fL Normal 8.1-13.5 [facility] Comment on above: Performed By: #### B MP, CBC, PT #### [address] [address] Junior Account Manager: Anthony Aguilar MD Platelets (Bld) [#/Vol] 276 10*3/uL Normal 138-453 [facility] Comment on above: Performed By: #### B MP, CBC, PT #### [address] [address] Junior Account Manager: Anthony Aguilar MD RBC (Bld) [#/Vol] 4.70 10*6/uL Normal 3.95-5.11 [facility] Comment on above: Performed By: #### B MP, CBC, PT #### [address] [id number] Junior Account Manager: Anthony Aguilar MD WBC (Bld) [#/Vol] 7.4 10*3/uL Normal 3.5-11.3 [facility] Comment on above: Performed By: #### B MP, CBC, PT #### [facility] [address] [place] [address] [phone] Junior Account Manager: Anthony Aguilar MD PTon 09-11-2022 INR Coag (PPP) [Relative time] 1.0 {INR} Normal [facility] Comment on above: Result Comment: Therapeutic Range: Moderate Anticoagulant Intensity: INR = 2.0-3.0 High Anticoagulant Intensity: INR = 2.5-3.5 Performed By: #### B MP, CBC, PT #### [facility] [place] [employer] [address] [place] [address] [phone] Junior Account Manager: Anthony Aguilar MD PT Coag (PPP) [Time] 12.9 s Normal 11.7-14.9 [facility] Comment on above: Performed By: #### B MP, CBC, PT #### [employer] [address] [place] [address] [phone] Junior Account Manager: Anthony Aguilar MD Surgical Pathologyon 023 Surgical Pathology (NOTE) Path Number: [id number] -- Diagnosis -- GALLBLADDER, CHOLECYSTECTOMY: -CHRONIC CHOLECYSTITIS [...] lesions or periductal lymph nodes are identified. Wholesale Manager sections 1c. tm Microscopic Description Microscopic examination performed. Processing Lab: [address] [address] Interpretation Performed at [address] [id number] SURGICAL PATHOLOGY CONSULTATION Patient Name: FINA WALKER [facility] Rec: [id number] [facility] [employer] [facility] ANATOMIC PATHOLOGY [address] [place] [phone] Normal [facility] Urine Cultureon 02-08-2022 Bacteria identified Cx Nom (U) Reason for Exam Dysuria Urine ORGANISM: Escherichia coli (O:ESCCOL) [place] Count >100,000 Aerobic LISA Charge (NMIC56) ---- [...] RESISTANT TO ALL B-LACTAM DRUGS. PERFORMED BY: [place] [id number] PATHOLOGIST HIGH ENERGY FORMING EQUIPMENT OPERATOR SAMIRA WEN M.D. [facility] Comment on above: Performed By: #### C UU #### [facility] [address] [id number] [facility] VC CONSULT FOLLOWUPon 2021 VC CONSULT FOLLOWUP Patient: FINA WALKER Exam Date: 01/08/2022 : 1995 Gender:F Ordering : DR JAMEEL ABEBE M.D. Admission #: [id number] Family : Order #: [id number] CLICK HERE TO VIEW EXAM RADIOLOGY REPORT [...] Hinton M.D. on 01/08/2022 at 10:10 Normal [facility] VC EXT VENOUS RT LIMITEDon 1 03-10-2021 VC EXT VENOUS RT LIMITED Patient: FINA WALKER Exam Date: 01/08/2022 : 1995 Gender:F Ordering : DR JAMEEL ABEBE M.D. Admission #: [id number] Family : Order #: [id number] CLICK HERE TO VIEW EXAM RADIOLOGY REPORT [...] Hinton M.D. on 01/08/2022 at 10:05 Normal [facility] VC ENDOVENOUS ABL 1ST V RTon 12-31-2021 VC ENDOVENOUS ABL 1ST V RT Patient: FINA WALKER Exam Date: 12/31/2021 : 1995 Gender:F Ordering : DR JAMEEL ABEBE M.D. Admission #: [id number] Family : Order #: [id number] CLICK HERE TO VIEW EXAM RADIOLOGY REPORT [...] Abebe MD on 12/31/2021 at 11:06 Normal [facility] ED Clinical Summaryon 2021 ED Clinical Summary [facility] ? Urgent Care [address] [place] [id number] Clinical Summary PERSON INFORMATION Name: VERNON WALKER Age: 26 Years Sex: FEMALE : 1995 MRN: Acct#: Visit Reason: OTTERBEIN PHYSICAL Arrival: 11/28/2021 10:39:56 Discharge: 11/28/2021 10:59:00 LOS: 000 00:20 Check In: 11/28/2021 10:39:56 Checkout: 11/28/2021 10:59:00 Address: [address] [place], [place] [id number] PCP: Provider, None PROVIDER INFORMATION VITALS INFORMATION Vital Sign Triage Latest Temperature Tympanic Temperature Temporal Artery Pulse Rate O2 Sat Respiratory Rate Blood Pressure / / MEDICAL INFORMATION Medications Given: Allergy Information: No known allergies PHYSICIAN DOCUMENTATION DISCHARGE INFORMATION: Discharge Disposition: Eloped Discharge Location: PATIENT EDUCATION INFORMATION Instructions: Follow-Up: DIAGNOSIS: Patient Understands: Comment: Normal [facility] ED Patient Summaryon 022 ED Patient Summary [facility] ? Urgent Care [address] [place] [id number] PATIENT DISCHARGE INSTRUCTIONS Patient Information Name: VERNON WALKER Age: 26 Years Date of : 1995 Reason For Visit: OTTERBEIN PHYSICAL Arrival Time: 11/28/2021 10:39:56 Primary Care Physician: Provider, None Attending Physician: Nuno Bradshaw Comment: Patient Education Medication Information: The exam and treatment you received today in the [facility] Emergency Department were for an urgent problem and are not intended as complete care. It is important for you to follow up with a doctor, nurse practitioner, or physician?s assistant front office manager for ongoing care. If your symptoms [...] so we can reach you if necessary. [facility] Emergency Department has provided you with a complete list of medications post discharge. Please inform your receiver dispatcher/provider of your visit and for further instruction [...] Disease Control and Prevention October 2013 [facility] VC CONSULT FOLLOWUPon 2021 VC CONSULT FOLLOWUP Patient: FINA WALKER Exam Date: 11/28/2021 : 1995 Gender:F Ordering : DR JAMEEL ABEBE M.D. Admission #: [id number] Family : Order #: [id number] CLICK HERE TO VIEW EXAM RADIOLOGY REPORT [...] Hinton M.D. on 11/28/2021 at 10:04 Normal [facility] VC EXT VENOUS LT LIMITEDon 1 VC EXT VENOUS LT LIMITED Patient: FINA WALKER Exam Date: 11/28/2021 : 1995 Gender:F Ordering : DR JAMEEL ABEBE M.D. Admission #: [id number] Family : Order #: [id number] CLICK HERE TO VIEW EXAM RADIOLOGY REPORT [...] Hinton M.D. on 11/28/2021 at 09:45 Normal [facility] VC ENDOVENOUS ABL 1ST V LTon 11-22-2021 VC ENDOVENOUS ABL 1ST V LT Patient: FINA WALKER Exam Date: 11/22/2021 : 1995 Gender:F Ordering : DR JAMEEL ABEBE M.D. Admission #: [id number] Family : Order #: [id number] CLICK HERE TO VIEW EXAM RADIOLOGY REPORT PROCEDURE: VEIN CENTER ENDOVENOUS ABLATION FIRST VEIN LEFT GREAT SAPHENOUS VEIN COMPARISON: VC VENOUS REFLUX JVOANA LMT, 10/17/2021. INDICATIONS: Pain co-occurrent and due to varicose veins of bilateral legs I83.813 OPERATIVE REPORT: The risks and benefits of the procedure had been previously discussed, and were rediscussed at length. Informed written consent was obtained by [place] and Christopher Zavala assisted. Time out procedure [...] Jameel Abebe MD on 11/22/2021 at 09:04 [facility] VC COMP CONSULTATIONon 10-17 VC COMP CONSULTATION Patient: FINA WALKER Exam Date: 10/17/2021 : 1995 Gender:F Ordering : DR JAMEEL ABEBE M.D. Admission #: [id number] Family : Order #: [id number] CLICK HERE TO VIEW EXAM RADIOLOGY REPORT [...] arterial disease 5. CEAP: C2, EC, AP, TX PLAN: 1. Continued use of compression stockings [...] M.D. on 10/17/2021 at 12:46 Normal [facility] Basic Metabolic Panelon 04-0 Anion gap [Moles/Vol] 8 mmol/L Low 9 - 17 mmol/L [employer] Calcium [Mass/Vol] 8.6 mg/dL 8.6 - 10. 4 mg/dL [employer] [facility] Chloride [Moles/Vol] 106 mmol/L 98 - 107 mmol/L [employer] [facility] CO2 [Moles/Vol] 23 mmol/L 20 - 31 mmol/L [employer] [facility] Creatinine [Mass/Vol] 0.67 mg/dL 0.50 - 0.90 mg/dL [employer] [facility] GFR >60 >60 mL/min [facility] GFR Non- >60 >60 mL/min [facility] GFR/1.73 sq M.predicted MDRD (S/P/Bld) [Vol rate/Area] [facility] Comment on above: Average GFR for 20-2 9 years old: 116 mL/min/1.73sq m Chronic Kidney Disease: <60 mL/min/1.73sq m Kidney failure: <15 mL/min/1.73sq m eGFR calculated using average adult body mass. Additional eGFR calculator available at: http://www.Stayful.SimpleCrew/multiple_crcl_2011.htm Glucose [Mass/Vol] 83 mg/dL 70 - 99 mg/dL [facility] Interpretation and review of laboratory results Abnormal [employer] Potassium [Moles/Vol] 3.9 mmol/L 3.7 - 5.3 mmol/L [facility] Sodium [Moles/Vol] 137 mmol/L 135 - 144 mmol/L [facility] Urea nitrogen (BldV) [Mass/Vol] 7 mg/dL 6 - 20 mg/dL [employer] CBCon 05-17-2021 Hematocrit (Bld) [Volume fraction] 34.4 % Low 36.3 - 47.1 % [employer] Hemoglobin.gastroin testinal spec 1 Ql (Stl) 11.0 g/dL Low 11.9 - 15.1 g/dL [facility] Interpretation and review of laboratory results Abnormal [facility] MCH (RBC) [Entitic mass] 27.2 pg 25.2 - 33.5 pg [facility] MCHC (RBC) [Mass/Vol] 32.0 g/dL 28.4 - 34.8 g/dL [facility] MCV (RBC) [Entitic vol] 85.1 fL 82.6 - 102.9 fL [facility] NRBC Automated 0.0 0.0 per 100 WBC [facility] Platelet distribution width (Bld) [Ratio] 14.1 % 11.8 - 14.4 % [facility] Platelet mean volume (Bld) [Entitic vol] 10.1 fL 8.1 - 13.5 fL [facility] Platelets (Bld) [#/Vol] 302 10*3/uL [facility] RBC (Bld) [#/Vol] 4.04 10*6/uL 3.95 - 5.1 1 m/uL [facility] WBC (Bld) [#/Vol] 13.7 10*3/uL High [facility] SURGICAL PATHOLOGY REPORTon 05-17-2021 Surgical Pathology [...] x 0.5 cm piece of adipose tissue. Wholesale Manager sections 1cs. tm Microscopic Description 1 H&E reviewed. Microscopic examination performed. SURGICAL PATHOLOGY CONSULTATION Patient Name: FINA WALKER [facility] Rec: [id number] Path Number: [id number] [facility] [employer] [facility] ANATOMIC PATHOLOGY [facility]. [place], [place] [address] [facility] Basic Metabolic Panelon - Anion gap [Moles/Vol] 10 mmol/L 9 - 17 mmol/L [employer] Calcium [Mass/Vol] 8.7 mg/dL 8.6 - 10. 4 mg/dL [employer] Chloride [Moles/Vol] 105 mmol/L 98 - 107 mmol/L [employer] CO2 [Moles/Vol] 23 mmol/L 20 - 31 mmol/L [employer] Creatinine [Mass/Vol] 0.75 mg/dL 0.50 - 0.90 mg/dL [employer] [facility] GFR >60 >60 mL/min [facility] [place] [facility] GFR Non- >60 >60 mL/min [employer] GFR/1.73 sq M.predicted MDRD (S/P/Bld) [Vol rate/Area] [facility] Comment on above: Average GFR for 20-2 9 years old: 116 mL/min/1.73sq m Chronic Kidney Disease: <60 mL/min/1.73sq m Kidney failure: <15 mL/min/1.73sq m eGFR calculated using average adult body mass. Additional eGFR calculator available at: http://www.GenPrime/multiple_crcl_2011.htm Glucose [Mass/Vol] 132 mg/dL High 70 - 99 mg/dL [facility] Interpretation and review of laboratory results Abnormal [employer] Potassium [Moles/Vol] 3.5 mmol/L Low 3.7 - 5.3 mmol/L [employer] Sodium [Moles/Vol] 138 mmol/L 135 - 144 mmol/L [employer] [facility] Urea nitrogen (BldV) [Mass/Vol] 10 mg/dL 6 - 20 mg/dL [facility] CBC without Diffon Hematocrit (Bld) [Volume fraction] 38.8 % 36.3 - 47.1 % [facility] Hemoglobin.gastroin testinal spec 1 Ql (Stl) 12.6 g/dL 11.9 - 15.1 g/dL [facility] Interpretation and review of laboratory results Abnormal [facility] MCH (RBC) [Entitic mass] 27.2 pg 25.2 - 33.5 pg [facility] MCHC (RBC) [Mass/Vol] 32.5 g/dL 28.4 - 34.8 g/dL [facility] MCV (RBC) [Entitic vol] 83.8 fL 82.6 - 102.9 fL [facility] NRBC Automated 0.0 0.0 per 100 WBC [facility] Platelet distribution width (Bld) [Ratio] 13.9 % 11.8 - 14.4 % [facility] Platelet mean volume (Bld) [Entitic vol] 9.8 fL 8.1 - 13.5 fL [facility] Platelets (Bld) [#/Vol] 340 10*3/uL [facility] RBC (Bld) [#/Vol] 4.63 10*6/uL 3.95 - 5.1 1 m/uL [facility] WBC (Bld) [#/Vol] 15.0 10*3/uL High [facility] POC Glucose Fingerstickon Glucose [Mass/Vol] 77 mg/dL 65 - 105 mg/dL [facility] POCT urine pregnancyon 05-16 Beta HCG ( test) Ql (U) Negative NEGATIVE [facility] Comment on above: Specimens with hCG l evels near the threshold of the test (25 mIU/mL) may give a negative or indeterminate result. In such cases, another test should be performed with a new specimen in 48-72 hours. If early is suspected clinically in this setting, correlation with quantitative serum b-hCG level is suggested. [facility] [id number] 05-15-2021 SARS-CoV-2 (COVID-19) RNA BECCA+probe Ql (Unsp spec) Normal [facility] Comment on above: Performed By: #### C OVID #### [facility] [place] [employer] [address] [place] [address] Junior Account Manager: Anthony Aguilar MD [facility] [address] [place] [address] Junior Account Manager: Jameel Lawler MD SARS-CoV-2 (COVID-19) RNA BECCA+probe Ql (Unsp spec) Not detected Normal NOTDET [facility] Comment on above: Result Comment: The specimen is NEGATIVE for SARS-CoV-2, the novel coronavirus associated with COVID-19. A negative result does not rule out COVID-19. [employer] SARS-CoV-2 for use on the [employer] is a real-time RT-PCR test intended [...] this assay. Fact sheet for Healthcare Providers: https://www.fda.gov/media/628820/download Fact sheet for Patients: https://www.fda.gov/media/127821/download METHODOLOGY: RT-PCR Performed By: #### C OVID #### [address] [address] Junior Account Manager: Anthony Aguilar MD [facility] [address] [place] [address] [place] [address] Junior Account Manager: Jameel Lawler MD [id number] 05-14-2021 SARS-CoV-2 (COVID-19) RNA BECCA+probe Ql (Unsp spec) .NASOPHARYNGEAL SWAB Normal [facility] Comment on above: Performed By: #### C OVID #### [id number] [place], [place] [id number] Junior Account Manager: Anthony Aguilar MD [facility] [address] [place] [address] [place] [address] Junior Account Manager: Jameel Lawler MD Nicotine, Bloodon 05-05-2021 1-EW-Naesthbi <2 ng/mL [facility] Cotinine <2 ng/mL [facility] Nicotine <2 ng/mL [employer] Comment on above: (NOTE) Consistent with abstinence [...] developed and its performance characteristics determined by [employer]. It has not been cleared or approved by the US Food and Drug Administration. This test was performed in a CLIA certified laboratory and is intended for clinical purposes. Performed By: [employer] [address] [place] [id number] [address] Baggage: Yara Rodriguez MD [employer] [facility] EKG 12 LeadOrdered By: Diaz Conway on 05-03-2021 Atrial Rate 72 BPM [employer] Work Phone: P [place] 45 degrees [employer] Phone: P-R Interval 142 ms [employer] Work Phone: Q-T Interval 376 ms [employer] Work Phone: QRS Duration 100 ms [employer] Work Phone: QTc Calculation (Bazett) 411 ms [employer] Work Phone: R [place] 22 degrees [employer] Phone: T [place] 32 degrees [employer] Work Phone: Ventricular Rate 72 BPM [place] Work Phone: [employer] Work Phone: EKG 12 Leadon 05-03-2021 Normal sinus rhythm Normal ECG No previous ECGs available [facility] STV Diaz Romero MD - 05/03/2021 Normal sinus rhythm Normal ECG No previous ECGs available [employer] Work Phone: APTTon 05-02-2021 aPTT Coag (Bld) [Time] 25.0 s [employer] Comment on above: IV Heparin Therapy Range: 48.6-77.8 Basic Metabolic Panelon 04-11 Anion gap [Moles/Vol] 15 mmol/L 9 - 17 mmol/L [employer] Calcium [Mass/Vol] 9.8 mg/dL 8.6 - 10. 4 mg/dL [employer] Chloride [Moles/Vol] 102 mmol/L 98 - 107 mmol/L [employer] [facility] CO2 [Moles/Vol] 21 mmol/L 20 - 31 mmol/L [employer] Creatinine [Mass/Vol] 0.55 mg/dL 0.50 - 0.90 mg/dL [employer] GFR >60 >60 mL/min [employer] [facility] GFR Non- >60 >60 mL/min [employer] GFR/1.73 sq M.predicted MDRD (S/P/Bld) [Vol rate/Area] [employer] Comment on above: Average GFR for 20-2 9 years old: 116 mL/min/1.73sq m Chronic Kidney Disease: <60 mL/min/1.73sq m Kidney failure: <15 mL/min/1.73sq m eGFR calculated using average adult body mass. Additional eGFR calculator available at: http://www.Stayful.SimpleCrew/multiple_crcl_2011.htm Glucose [Mass/Vol] 85 mg/dL 70 - 99 mg/dL [employer] [facility] Potassium [Moles/Vol] 4.5 mmol/L 3.7 - 5.3 mmol/L [employer] [facility] Sodium [Moles/Vol] 138 mmol/L 135 - 144 mmol/L [facility] Urea nitrogen (BldV) [Mass/Vol] 11 mg/dL 6 - 20 mg/dL [employer] [facility] CBCon 05-02-2021 Hematocrit (Bld) [Volume fraction] 41.0 % 36.3 - 47.1 % [employer] [facility] Hemoglobin.gastroin testinal spec 1 Ql (Stl) 12.9 g/dL 11.9 - 15.1 g/dL [facility] MCH (RBC) [Entitic mass] 26.9 pg 25.2 - 33.5 pg [facility] MCHC (RBC) [Mass/Vol] 31.5 g/dL 28.4 - 34.8 g/dL [facility] MCV (RBC) [Entitic vol] 85.6 fL 82.6 - 102.9 fL [facility] NRBC Automated 0.0 0.0 per 100 WBC [facility] Platelet distribution width (Bld) [Ratio] 13.7 % 11.8 - 14.4 % [facility] Platelet mean volume (Bld) [Entitic vol] 9.8 fL 8.1 - 13.5 fL [facility] Platelets (Bld) [#/Vol] 380 10*3/uL [facility] RBC (Bld) [#/Vol] 4.79 10*6/uL 3.95 - 5.1 1 m/uL [facility] WBC (Bld) [#/Vol] 11.2 10*3/uL [facility] No Panel Informationon 05-02 [employer] Protime-INRon 05-02-2021 INR Coag (Bld) [Relative time] 1.0 {INR} [facility] Comment on above: Therapeutic Range: Moderate Anticoagulant Intensity: INR = 2.0-3.0 High Anticoagulant Intensity: INR = 2.5-3.5 PT Coag (PPP) [Time] 10.6 s [facility] XR CHEST (2 VW)on 05-02-2021 No acute process. [facility] RIS CONSOLIDATED EXAMINATION: TWO XRAY VIEWS OF THE CHEST 05/02/2021 11:20 am COMPARISON: None. HISTORY: ORDERING SYSTEM PROVIDED HISTORY: preop, obesity TECHNOLOGIST PROVIDED HISTORY: preop, obesity FINDINGS: Heart is normal in size. Lungs are clear. No free air. [facility] RIS CONSOLIDATED Jose Juan Florez Jr. , DO - 05/02/2021 EXAMINATION: TWO XRAY VIEWS OF THE CHEST 05/02/2021 11:20 am COMPARISON: None. HISTORY: ORDERING SYSTEM PROVIDED HISTORY: preop, obesity TECHNOLOGIST PROVIDED HISTORY: preop, obesity FINDINGS: Heart is normal in size. Lungs are clear. No free air. IMPRESSION: No acute process. [employer] Phone: Radiology Study observation (narrative) [employer] Phone: XR CHEST (2 VW)Ordered By: Santos Florez on 05-02-2021 [employer] Phone: [id number] 12-05-2020 SARS-CoV-2 (COVID-19) RNA BECCA+probe Ql (Unsp spec) Normal [facility] Comment on above: Performed By: #### C OVID #### [facility] [employer] [address] [place] [address] Junior Account Manager: Anthony Aguilar MD [facility] [address] [place] [address] Junior Account Manager: Jameel Lawler MD SARS-CoV-2 (COVID-19) RNA BECCA+probe Ql (Unsp spec) Not detected Normal NOTDET [facility] Comment on above: Result Comment: The specimen is NEGATIVE for SARS-CoV-2, the novel coronavirus associated with COVID-19. A negative result does not rule out COVID-19. [employer] SARS-CoV-2 for use on the [employer] is a real-time RT-PCR test intended [...] this assay. Fact sheet for Healthcare Providers: https://www.fda.gov/media/636544/download Fact sheet for Patients: https://www.fda.gov/media/063529/download METHODOLOGY: RT-PCR Performed By: #### C OVID #### [employer] [address] [place], [place] [id number] Junior Account Manager: Anthony Aguilar MD [facility] [address] [place] [address] Junior Account Manager: Jameel Lawler MD [id number] 12-04-2020 SARS-CoV-2 (COVID-19) RNA BECCA+probe Ql (Unsp spec) .NASOPHARYNGEAL SWAB Normal [facility] Comment on above: Performed By: #### C OVID #### [employer] [address] [place], [place] [id number] Junior Account Manager: Anthony Aguilar MD [facility] [address] [place] [address] Junior Account Manager: Jameel Lawler MD Vital Signs Date Time Vital Sign Value Performing Clinician Facility 03-19-2023 11:06-0500 Body mass index (BMI) [Ratio] 36.34 kg/m2 Eloise BURROUGHS Work Phone: [facility] 03-19-2023 11:06-0500 Body weight 105.23 kg Eloise BURROUGHS Work Phone: [facility] 03-19-2023 11:06-0500 Diastolic blood pressure 78 mm[Hg] Eloise BURROUGHS Work Phone: [facility] 03-19-2023 11:06-0500 Systolic blood pressure 124 mm[Hg] Eloise BURROUGHS Work Phone: [facility] 03-05-2023 10:48-0500 Body mass index (BMI) [Ratio] 35.08 kg/m2 Karoline Hopson MD Work Phone: [facility] 03-05-2023 10:48-0500 Body weight 101.61 kg Karoline Hopson MD Work Phone: [facility] 03-05-2023 10:48-0500 Diastolic blood pressure 75 mm[Hg] Karoline Hopson MD Work Phone: [facility] 03-05-2023 10:48-0500 Heart rate 89 /min [facility] 03-05-2023 10:48-0500 Systolic blood pressure 126 mm[Hg] Karoline Hopson [facility] 02-07-2023 13:34-0500 Body height 170.2 cm Tatiana Yap MD Work [facility] 02-07-2023 13:34-0500 Body mass index (BMI) [Ratio] 34.14 kg/m2 Tatiana Yap MD Work [facility] 02-07-2023 13:34-0500 Body weight 98.88 kg Tatiana Yap MD [facility] 02-07-2023 13:34-0500 Diastolic blood pressure 83 mm[Hg] Tatiana Yap MD Work [facility] 02-07-2023 13:34-0500 Heart rate 76 /min Tatiana Yap MD Work [facility] 02-07-2023 13:34-0500 Systolic blood pressure 126 mm[Hg] Tatiana Yap MD Work [facility] 10-12-2022 10:10-0400 Body height 170.18 cm Lilia Daugherty Other [employer] Other 10-12-2022 10:10-0400 Body mass index (BMI) [Ratio] 32.86 kg/m2 Lilia Daugherty Other [employer] Other 10-12-2022 10:10-0400 Body temperature 99 [degF] Lilia Daugherty Other [employer] Other 10-12-2022 10:10-0400 Body weight 95.17 kg Lilia Daugherty Other [employer] Other 10-12-2022 10:10-0400 Diastolic blood pressure 74 mm[Hg] Lilia Daugherty Other [employer] Other 10-12-2022 10:10-0400 SaO2% (BldA) [Mass fraction] 98 % Lilia Daugherty Other [employer] Other 10-12-2022 10:10-0400 Systolic blood pressure 118 mm[Hg] Lilia Daugherty Other [employer] Other 05-17-2021 15:52-0400 Body temperature 98.49 [degF] Patricia Mars [employer] Work Phone: [employer] 05-17-2021 15:52-0400 Diastolic blood pressure 97 mm[Hg] Patricia Mars [employer] Work Phone: [facility] 05-17-2021 15:52-0400 Heart rate 70 /min Patricia [employer] Work Phone: [facility] 05-17-2021 15:52-0400 Respiratory rate 18 /min Patricia Mars [employer] Work Phone: [facility] 05-17-2021 15:52-0400 SaO2% (BldA) [Mass fraction] 99 % Patricia Mars [employer] Work Phone: [facility] 05-17-2021 15:52-0400 Systolic blood pressure 138 mm[Hg] Patricia Mars [employer] Work Phone: [facility] 05-16-2021 06:06-0400 Body mass index (BMI) [Ratio] 43.16 kg/m2 Patricia Mars [employer] Work Phone: [facility] 05-16-2021 06:06-0400 Body weight 125 kg Patricia Mars [employer] Work Phone: [facility] 05-16-2021 05:57-0400 Body height 170.2 cm Patricia Mars DO Work Phone: [facility] 05-02-2021 10:35-0400 Body height 170.2 cm Stvz 1 [employer] [facility] 05-02-2021 10:35-0400 Body mass index (BMI) [Ratio] 44.95 kg/m2 Stvz 1 [employer] 05-02-2021 10:35-0400 Body temperature 97.2 [degF] Stvz 1 [employer] 05-02-2021 10:35-0400 Body weight 130.18 kg Stvz 1 [employer] 05-02-2021 10:35-0400 Diastolic blood pressure 85 mm[Hg] Stvz 1 [employer] 05-02-2021 10:35-0400 Heart rate 66 /min Stvz 1 [employer] 05-02-2021 10:35-0400 Respiratory rate 18 /min Stvz 1 [employer] 05-02-2021 10:35-0400 SaO2% (BldA) [Mass fraction] 99 % Stvz 1 [employer] 05-02-2021 10:35-0400 Systolic blood pressure 122 mm[Hg] Stvz 1 [employer] 12-04-2020 17:00-0400 Body height 170.18 cm Ale Ginty Other [employer] Other 12-04-2020 17:00-0400 Body mass index (BMI) [Ratio] 43.85 kg/m2 Ale Ginty Other [employer] Other 12-04-2020 17:00-0400 Body temperature 97.4 [degF] Ale Ginty Other [employer] Other 12-04-2020 17:00-0400 Body weight 127.01 kg Ale Ginty Other [employer] Other 12-04-2020 17:00-0400 SaO2% (BldA) [Mass fraction] 99 % Ale Harris Other [employer] Other Encounters Encounter Date Encounter Type Care [...] 04-09-2023 End: 04-10-2023 ambulatory NIGEL R ZACARIAS [facility] Start: 03-24-2023 Clinisync Result Encounter Nigel [...] Only Laila Castillo RN [facility] Comment on above: Hypertension affecti ng in second trimester (Primary Dx); Dichorionic diamniotic twin in second trimester Start: 03-05-2023 End: 03-05-2023 Office outpatient visit 15 minutes Karoline Hopson MD Work Phone: [facility] Comment on above: History of sleeve ga strectomy (Primary Dx); History of induced hypertension Start: 02-27-2023 Orders Only Sivan Martinez RN Ma tern[facility]- [facility] at [facility] Comment on above: Hypertension affecti ng in second trimester; 16 weeks gestation of ; Dichorionic diamniotic twin in second trimester Start: 02-26-2023 End: 02-26-2023 ambulatory NIGEL ZACARIAS Not Available Start: 02-24-2023 Telephone encounter Sangita Thomas RN [facility] [place] Start: 02-07-2023 End: 02-07-[address] [facility] Start: 02-07-2023 End: 02-07-2023 Office consultation new/estab patient 60 min Tatiana Yap MD Work Phone: [facility] [place] Comment on above: Hypertension affecti ng in second trimester (Primary Dx); 16 weeks gestation of ; Dichorionic diamniotic twin in second trimester; H/O gastric sleeve Start: 02-05-2023 End: 02-05-2023 ambulatory NIGEL ZACARIAS Not Available Start: 02-05-2023 Chart abstracting Tatiana Yap MD Work Phone: [facility] [place] Start: 02-04-2023 End: 02-04-2023 ambulatory MARGOT G YAW Not Available Start: 01-15-2023 End: 01-15-2023 ambulatory INGEL ZACARIAS Not Available Start: 01-07-2023 End: 01-07-2023 ambulatory MARGOT G YAW Not Available Start: 12-20-2022 End: 12-21-2022 ambulatory NIGEL ZACARIAS Not Available Start: 10-12-2022 End: 10-12-2022 ambulatory Lilia Daugherty Other [employer] Other Start: 10-12-2022 Office outpatient vi sit 15 minutes Lilia Daugherty [facility] Start: 09-11-2022 End: 09-11-2022 ambulatory PATRICIA [facility] Start: 02-10-2022 End: 02-10-2022 ambulatory Ale Shields Other [facility] [employer] Other Start: 02-10-2022 Telephone encounter Ale Shields [facility] [address] Start: 02-08-2022 End: 02-08-2022 ambulatory Ale Kishor Shields Facility:[facility] Start: 02-08-2022 End: 02-08-2022 ambulatory SPRAY BLENDER Ale Shields Work Phone: [facility] Work Phone: Start: 02-08-2022 End: 02-08-2022 Departed Referred SPRAY BLENDER Ale Shields Work Phone: [facility] [place] Work Phone: Start: 01-08-2022 End: 01-09-[address] JAMEEL ABEBE Facility: Start: 12-31-2021 End: 01-01-[address] JAMEEL ABEBE Facility: Start: 11-28-2021 End: 11-28-2021 ambulatory None Provider Facility:[facility] Start: 11-28-2021 End: 11-29-2021 ambulatory [...] Start: 09-06-2020 End: 09-07-2020 ambulatory IKE ANGEL [facility] Start: 09-06-2020 End: 09-06-2020 Subsequent hospital visit by physician [facility] Sleep Rm 1 [facility] Comment on above: LYNN (obstructive sle ep apnea) Start: 05-28-2017 End: 05-29-2017 Ambulatory Neo Anderson Facility:[id number] Procedures Date Procedure Procedure Detail Performing Clinician Start: 03-24-2023 [facility] UA (CLEAN/CATCH) CHILD AND ADOLESCENT PSYCHOLOGIST/MICRO IF IND. Nigel Zacarias DO Work Phone: [...] Start: 05-02-2021 Assay of nicotine Sim Rucker [employer] Work Phone: Start: 05-02-2021 Basic metabolic pane [...] Adult BMI Screening Adult BMI Screen ing [facility] Start: 03-05-2024 Tobacco [facility]ening [facility] Start: 03-05-2024 End: 03-05-2024 US MFM with or without consult US MFM with or without consult Imaging Routine Hypertension affecting in second trimester Dichorionic diamniotic twin in second trimester Expected: 03/05/2024 (Approximate), Expires: 03/05/2024 [facility] Work Phone: Comment on above: Expected: 03/05/2024 (Approximate), Expires: 03/05/2024 Start: 02-08-2024 Adult BMI Screening Adult BMI Screen ing [facility] Start: 02-08-2024 Tobacco Screening Tobacco Screening [facility] Start: 01-04-2024 Adult BMI Screening Adult BMI Screen ing [facility] Start: 01-04-2024 Tobacco Screening Tobacco Screening [facility] Start: 08-11-2023 DTaP,Tdap and Td Vaccines (7 - Td or Tdap) DTaP,Tdap and Td Vaccines (7 - Td or Tdap) [facility] Start: 08-11-2023 DTaP/Tdap/Td vaccine (7 - Td or Tdap) DTaP/Tdap/Td vaccine (7 - Td or Tdap) [facility] Start: 08-10-2023 Influenza vaccination Influenza Vacc ine (#1) [facility] Comment on above: Postponed from 10/11 (Patient Refused) Start: 06-15-2023 Screening for malign ant neoplasm of cervix Pap Smear [facility] Start: 04-10-2023 End: 04-10-2023 Patient encounter procedure [facility] [place] Start: 03-19-2023 End: 03-19-2024 CBC panel - Blood by Automated count CBC Lab Routine Diabetes mellitus screening Expected: 03/19/2023 (Approximate), Expires: 03/19/2024 [facility] Work Phone: Comment on above: Expected: 03/19/2023 (Approximate), Expires: 03/19/2024 Start: 03-19-2023 End: 03-19-2024 Measurement of glucose 1 hour after glucose challenge for glucose tolerance test Glucose tolerance, 1 hour Lab Routine Diabetes mellitus screening Expected: 03/19/2023 (Approximate), Expires: 03/19/2024 [facility] Comment on above: Expected: 03/19/2023 (Approximate), Expires: 03/19/2024 Start: 03-05-2023 End: 03-05-2023 Patient encounter procedure 03/05/2023 11:30 AM EST Office Visit [facility] at [facility] [address] [place] [id number] Karoline Hopson MD [address] [place] [address] [facility] Start: 03-05-2023 End: 03-05-2023 Patient encounter procedure 03/05/2023 9:30 AM EST Appointment [facility] [address] [place] [id number] [facility] Start: 02-07-2023 End: 02-07-2023 Patient encounter procedure [facility] [place] Start: 10-11-2022 Influenza vaccination Influenza Vacc ine [facility] Start: 09-19-2022 Adult BMI Follow Up Plan Adult BMI Follow Up Plan [facility] Start: 02-08-2022 Bacteria identified in Urine by Culture Urine Culture [facility] Start: 01-08-2022 Hemoglobin A1c measurement A1C test (Diabetic or Prediabetic) [facility] Start: 10-11-2021 Influenza vaccination Flu vacc ine (Season Ended) [facility] Start: 07-14-2021 Hemoglobin A1c measurement A1C test (Diabetic or Prediabetic) [facility] Work Phone: Start: 06-18-2021 End: 06-18-2021 Patient encounter procedure 06/18/2021 Office Visit Bariatrics Deann Navarro, SPRAY BLENDER - SUPERVISOR HYDROCHLORIC AREA [address] [place] [phone] [facility] Start: 05-24-2021 End: 05-24-2021 Patient encounter procedure 05/24/2021 Office Visit Patricia Islas DO [address] [place] [address] [facility] Invasive Bariatric Surg Start: 05-16-2021 End: 05-16-2021 Admission to same day surgery center 05/16/2021 Surgery IP Unit Patricia Mars DO [address] [place] [address] XI ROBOTIC LAPAROSCOPIC GASTRECTOMY SLEEVE , LIVER BIOPSY, EGD- GI SCHEDULED [facility] Comment on above: XI ROBOTIC LAPAROSCO PIC GASTRECTOMY SLEEVE , LIVER BIOPSY, EGD- GI SCHEDULED Start: 05-16-2021 End: 05-16-2021 Laps gstrc rstrictiv px longitudinal gastrectomy GASTRECTOMY SLEEVE LAPAROSCOPIC ROBOTIC MORBID OBESITY, OBSTRUCTIVE SLEEP APNEA, GERD 05/16/2021 7:10 AM EDT [facility] Start: 05-16-2021 Subsequent hospital visit by physician 05/16/2021 Hospital Encounter IP Unit Patricia Mars DO [address] [facility] [address] [place] [address] [facility] Start: 05-13-2021 End: 05-13-2021 Patient encounter procedure 05/13/2021 Appointment Pre-Admission Testing [facility] PRE ADMIT Start: 05-10-2021 End: 05-10-2021 Patient encounter procedure 05/10/2021 Office Visit Bariatrics Patricia Mars DO [address] [facility] [address] [place] [address] [facility] Invasive Bariatric Surg Start: 11-22-2020 End: 11-22-2020 Nursing evaluation of patient and report 11/22/2020 Nurse Only Bariatrics [facility] Invasive Bariatric Surg Start: 11-06-2020 End: 11-06-2020 Patient encounter procedure [facility] Start: 11-03-2020 End: 11-03-2020 Patient encounter procedure 11/03/2020 Office Visit Bariatrics Deann Navarro, SPRAY BLENDER - SUPERVISOR HYDROCHLORIC AREA [address] [facility] [address] [address] [place] [phone] [facility] Start: 10-11-2020 Influenza vaccination Flu vaccine (# 1) [facility] Start: 09-28-2020 End: 09-28-2020 Patient encounter procedure 09/28/2020 Office Visit Bariatrics RamonDeann Kishor, SPRAY BLENDER - SUPERVISOR HYDROCHLORIC AREA [address] [facility] [address] [address] [place] [address] [facility] Start: 09-01-2015 Screening for malign ant neoplasm of cervix [facility] Start: 2009 HIV screening HIV screen [facility] Start: 2006 COVID-19 Vaccine (1) COVID-19 Vaccin e (1) [facility] Work Phone: Start: 2006 Depression Screen Depression Screen [facility] Start: 2006 Depression Screening Depression Scre [facility] Start: 2005 HPV vaccine (1 - 2-d ose series) HPV vaccine (1 - 2-dose series) [facility] Start: 2000 Pneumococcal 0-64 ye ars Vaccine (1 of 2 - PPSV23) Pneumococcal 0-64 years Vaccine (1 of 2 - PPSV23) [facility] [employer] Phone: Start: 09-01-1999 COVID-19 Vaccine (1) COVID-19 Vaccin e (1) [facility] Start: 09-01-1995 Varicella vaccine (1 of 2 - 2-dose childhood series) Varicella vaccine (1 of 2 - 2-dose childhood series) [facility] Start: 1994 [facility] End: 09-06-2020 Baseline Diagnostic Sleep Study Baseline Diagnostic Sleep Study Sleep Center Routine LYNN (obstructive sleep apnea) 1 Occurrences starting 09/06/2020 until 09/06/2020 [facility] [employer] Phone: Comment on above: 1 Occurrences starti ng 09/06/2020 until 09/06/2020 End: 02-08-2024 Calcium [Mass/volume] in Serum or Plasma Calcium Lab Routine 16 weeks gestation of H/O gastric sleeve 1 Occurrences starting 02/07/2023 until 02/08/2024 [facility] Comment on above: 1 Occurrences starti ng 02/07/2023 until 02/08/2024 End: 02-08-2024 CBC panel - Blood by Automated count CBC without diff Lab Routine Hypertension affecting in second trimester 16 weeks gestation of Dichorionic diamniotic twin in second trimester 1 Occurrences starting 02/07/2023 until 02/08/2024 [employer] Phone: Comment on above: 1 Occurrences starti ng 02/07/2023 until 02/08/2024 End: 02-08-2024 Comprehensive metabolic 2000 panel - Serum or Plasma Comprehensive metabolic panel Lab Routine Hypertension affecting in second trimester 16 weeks gestation of Dichorionic diamniotic twin in second trimester 1 Occurrences starting 02/07/2023 until 02/08/2024 [facility] Comment on above: 1 Occurrences starti ng 02/07/2023 until 02/08/2024 Continuous pulse oximetry Pulse oximetry, continuous Respiratory Care Routine Every 4hr until discontinued starting 05/16/2021 [employer] Phone: Comment on above: Every 4hr until disc ontinued starting 05/16/2021 End: 02-08-2024 Cyanocobalamin vitamin b-12 Vitamin B12 Lab Routine 16 weeks gestation of H/O gastric sleeve 1 Occurrences starting 02/07/2023 until 02/08/2024 [facility] Comment on above: 1 Occurrences starti ng 02/07/2023 until 02/08/2024 End: 02-08-2024 ECG 12 lead ECG 12 lead ECG Routine Hypertension affecting in second trimester 16 weeks gestation of Dichorionic diamniotic twin in second trimester 1 Occurrences starting 02/07/2023 until 02/08/2024 [facility] Comment on above: 1 Occurrences starti ng 02/07/2023 until 02/08/2024 End: 02-08-2024 Folate Folate Lab Routine 16 weeks gestation of H/O gastric sleeve 1 Occurrences starting 02/07/2023 until 02/08/2024 [facility] Comment on above: 1 Occurrences starti ng 02/07/2023 until 02/08/2024 End: 02-08-2024 Iron and TIBC Iron and TIBC Lab Routine 16 weeks gestation of H/O gastric sleeve 1 Occurrences starting 02/07/2023 until 02/08/2024 [facility]: 1 Occurrences starti ng 02/07/2023 until 02/08/2024 End: 02-08-2024 LDH LDH Lab Routine Hypertension affecting in second trimester 16 weeks gestation of Dichorionic diamniotic twin in second trimester 1 Occurrences starting 02/07/2023 until 02/08/2024 [facility] Comment on above: 1 Occurrences starti ng 02/07/2023 until 02/08/2024 End: 02-08-2024 Natriuretic peptide B [Mass/volume] in Blood B-type natriuretic peptide Lab Routine Hypertension affecting in second trimester 16 weeks gestation of Dichorionic diamniotic twin in second trimester 1 Occurrences starting 02/07/2023 until 02/08/2024 [facility] Comment on above: 1 Occurrences starti ng 02/07/2023 until 02/08/2024 Oxygen therapy [[facility] Data Set] Initiate Oxygen Therapy Protocol Respiratory Care Routine As Needed until discontinued starting 05/16/2021 [employer] Phone: Comment on above: As Needed until disc ontinued starting 05/16/2021 End: 02-08-2024 Protein creat ratio Protein creat ratio Lab Routine Hypertension affecting in second trimester 16 weeks gestation of Dichorionic diamniotic twin in second trimester 1 Occurrences starting 02/07/2023 until 02/08/2024 [facility] on above: 1 Occurrences starti ng 02/07/2023 until 02/08/2024 End: 02-08-2024 Protein, urine, 24 hour Protein, urine, 24 hour Lab Routine Hypertension affecting in second trimester 16 weeks gestation of Dichorionic diamniotic twin in second trimester 1 Occurrences starting 02/07/2023 until 02/08/2024 [facility] Comment on above: 1 Occurrences starti ng 02/07/2023 until 02/08/2024 Spirometry panel Incentive isiah metry Respiratory Care Routine Every 2hr while awake until discontinued starting 05/16/2021 [employer] Phone: Comment on above: Every 2hr while awak e until discontinued starting 05/16/2021 Surgical Pathology Surgical Path ology Lab Routine Release Upon Ordering for 1 Occurrences starting 05/16/2021 [facility] Work Phone: Comment on above: Release Upon Orderin g for 1 Occurrences starting 05/16/2021 End: 02-08-2024 Thiamin Vitamin B1, whole blood Thiamin Vitamin B1, whole blood Lab Routine 16 weeks gestation of H/O gastric sleeve 1 Occurrences starting 02/07/2023 until 02/08/2024 [facility] Comment on above: 1 Occurrences starti ng 02/07/2023 until 02/08/2024 End: 02-08-2024 Urate [Mass/volume] in Serum or Plasma Uric acid Lab Routine Hypertension affecting in second trimester 16 weeks gestation of Dichorionic diamniotic twin in second trimester 1 Occurrences starting 02/07/2023 until 02/08/2024 [facility] Comment on above: 1 Occurrences starti ng 02/07/2023 until 02/08/2024 End: 02-08-2024 Vitamin D 25 hydroxy Vitamin D 25 hydroxy Lab Routine 16 weeks gestation of H/O gastric sleeve 1 Occurrences starting 02/07/2023 until 02/08/2024 [facility] Comment on above: 1 Occurrences starti ng 02/07/2023 until 02/08/2024 Immunizations Immunization Date Immunization Notes Care Provider Jerry luther 11-12-2016 tuberculin skin test ; purified protein derivative solution, intradermal Tatiana Yap MD Work Phone: [facility] 08-10-2013 tetanus toxoid, redu yemi diphtheria toxoid, and acellular pertussis vaccine, adsorbed Tatiana Yap MD Work Phone: [facility] 10-03-1999 diphtheria, tetanus toxoids and acellular pertussis vaccine Tatiana Yap MD Work Phone: [facility] 10-03-1999 diphtheria, tetanus toxoids and acellular pertussis vaccine, unspecified formulation Eloise BURROUGHS Work Phone: [facility] 10-03-1999 hepatitis B vaccine, pediatric or pediatric/adolescent dosage Tatiana Yap MD Work Phone: [facility] 10-03-1999 measles, mumps and rubella virus vaccine Tatiana Yap MD Work Phone: [facility] 10-03-1999 poliovirus vaccine, inactivated Tatiana Yap MD Work Phone: [facility] 01-14-1996 diphtheria, tetanus toxoids and acellular pertussis vaccine Tatiana Yap MD Work Phone: [facility] 01-14-1996 diphtheria, tetanus toxoids and pertussis vaccine Eloise BURROUGHS Work Phone: [facility] 01-14-1996 haemophilus influenz ae type b vaccine, conjugate unspecified formulation Tatiana Yap MD Work Phone: [facility] 01-14-1996 measles, mumps and rubella virus vaccine Tatiana aYp MD Work Phone: [facility] 05-21-1995 diphtheria, tetanus toxoids and acellular pertussis vaccine Tatiana Yap MD Work Phone: [facility] 05-21-1995 DTP-Haemophilus influenzae type b conjugate vaccine Eloise BURROUGHS Work Phone: [facility] 05-21-1995 haemophilus influenz ae type b vaccine, conjugate unspecified formulation Tatiana Yap MD Work Phone: [facility] 05-21-1995 poliovirus vaccine, inactivated Tatiana Yap MD Work Phone: [facility] 05-21-1995 trivalent poliovirus vaccine, live, oral Eloise BURROUGHS Work Phone: [facility] 02-21-1995 diphtheria, tetanus toxoids and acellular pertussis vaccine Tatiana Yap MD Work Phone: [facility] 02-21-1995 DTP-Haemophilus influenzae type b conjugate vaccine Eloise BURROUGHS Work Phone: [facility] 02-21-1995 haemophilus influenz ae type b vaccine, conjugate unspecified formulation Tatiana Yap MD Work Phone: [facility] 02-21-1995 hepatitis B vaccine, pediatric or pediatric/adolescent dosage Tatiana Yap MD Work Phone: [facility] 02-21-1995 poliovirus vaccine, inactivated Tatiana Yap MD Work Phone: [facility] 02-21-1995 trivalent poliovirus vaccine, live, oral Eloise BURROUGHS Work Phone: [facility] 1994 diphtheria, tetanus toxoids and acellular pertussis vaccine Tatiana Yap MD Work Phone: [facility] 1994 DTP-Haemophilus influenzae type b conjugate vaccine Eloise BURROUGHS Work Phone: [facility] 1994 haemophilus influenz ae type b vaccine, conjugate unspecified formulation Tatiana Yap MD Work Phone: [facility] 1994 hepatitis B vaccine, pediatric or pediatric/adolescent dosage Tatiana Yap MD Work Phone: [facility] 1994 poliovirus vaccine, inactivated Tatiana Yap MD Work Phone: [facility] 1994 trivalent poliovirus vaccine, live, oral Eloise BURROUGHS Work Phone: [facility] 1994 hepatitis B vaccine, pediatric or pediatric/adolescent dosage Tatiana Yap MD Work Phone: [facility] Payers Date Payer Category Payer Medicaid [id number] 2022 Medicaid [id number] 2022 Self-pay 2019 Unknown [id number] [id number]. 7.3.013780.315 1994 Unknown [id number] 2.16.840.1.395758.3.579.2. 173 1994 Unknown [id number] 2.16.840.1.845548.3.579.2. 173 1994 Unknown [id number] 2.16.840.1.887315.3.579.2. 173 1994 Unknown [id number] 2.16.840.1.662350.3.579.2. 593 1994 Unknown [id number] 2.16.840.1.680455.3.579.2. 593 1994 Unknown [id number] 2.16.840.1.406051.3.579.2. 593 1994 Unknown [id number] 2.16.840.1.967744.3.579.2. 593 1994 Unknown [id number] 2.16.840.1.947102.3.579.2. 593 1994 Unknown [id number] 2.16.840.1.815779.3.579.2. 593 1994 Unknown [id number] 2.16.840.1.547709.3.579.2. 175 1994 Unknown [id number] 2.16.840.1.147130.3.579.2. 1286 1994 Unknown [id number] 2.16.840.1.382577.3.579.2. 128 1994 Unknown [id number] 2.16.840.1.325776.3.579.2. 128 1994 Unknown [id number] 2.16.840.1.342188.3.579.2. 128 1994 Unknown [id number] 2.16.840.1.822261.3.579.2. 128 1994 Unknown [id number] 2.16.840.1.316061.3.579.2. 1259 1994 Unknown [id number] 2.16.840.1.165218.3.579.2. 1259 1994 Unknown [id number] 2.16.840.1.207649.3.579.2. 1259 1994 Unknown [id number] 2.16.840.1.167167.3.579.2. 9 1994 Unknown [id number] 2.16.840.1.117622.3.579.2. 1258 1994 Unknown [id number] 2.16.840.1.341603.3.579.2. 1258 1994 Unknown [id number] 2.16.840.1.680182.3.579.2. 1258 1994 Unknown [id number] 2.16.840.1.489295.3.579.2. 1258 1994 Unknown [id number] 2.16.840.1.033063.3.579.2. 1258 1994 Unknown [id number] 2.16.840.1.152104.3.579.2. 1258 1994 Unknown [id number] 2.16.840.1.560439.3.579.2. 1258 1994 Unknown [id number] 2.16.840.1.608373.3.579.2. 1258 1994 Unknown [id number] 2.16.840.1.052326.3.579.2. 1259 1959 Private Health Insurance [id number] 1.2.840.094278.1.13.239.2. 7.3.904384.315 Private Health Insurance [facility] [id number] Unknown [id number] 2.16.840.1.009027.3.579.2. 531 Social History Date Type Detail Facility Start: 09-01-2020 End: 09-28-2020 Tobacco smoking status [facility] Current every day smoker [employer] Phone: Start: 09-01-2020 End: 07-03-2022 Cigarettes smoked current (pack per day) - Reported [facility] Start: 09-01-2020 End: 07-03-2022 Tobacco use and exposure Never used [employer] Phone: Start: 09-01-2020 End: 09-28-2020 Alcohol intake Current drinker of alcohol (finding) [employer] Phone: Start: 12-23-2019 Alcohol Comment weekly [employer] Phone: Start: 1995 Sex Assigned At Not on file [employer] Phone: Start: 04-22-2021 End: 05-16-2021 Exposure to SARS-CoV-2 (event) Not sure [employer] Exposure to SARS-CoV -2 (event) Yes [employer] Start: 01-19-2021 End: 07-03-2022 Tobacco smoking status [facility] Ex-smoker [employer] Start: 02-11-2008 End: 11-19-2020 History of tobacco use Current smoker [employer] Phone: Start: 05-02-2021 End: 02-26-2023 Alcohol intake Ex-drinker (finding) [employer] Phone: Start: 08-17-2018 End: 07-03-2022 Sex Assigned At [facility] Start: 1995 Sex Assigned At Female [facility] Start: 02-11-2008 End: 02-11-2020 History of tobacco use Cigarette Smoker [facility] History of tobacco use Tobacco U se Types Packs/Day Years Used Date Smoking Tobacco: Former Cigarettes Quit: 2020 Vaping/E-cigarettes Smokeless Tobacco: Former [facility]: [facility]2020 [facility] Start: 02-05-2023 Tobacco use and exposure [facility] End: 11-06-2020 History of tobacco use User of smokeless tobacco [facility] Frequency of Communication with Friends and Family More than three times a week [facility] Start: 08-17-2018 Education 12 [facility] Start: 05-18-2022 Alcohol Comment social, every other weekend [facility] Start: 10-31-2022 [facility] Within the last year , have you [...] of: HEIKE Meeks documented in this encounter [facility] 03-05-2023 History of Presen t illness Narrative Headache/epigastric pain/blurry vision/swelling? No Cramping/contractions? No Abnormal vaginal discharge? No Spotting or vaginal bleeding? No Loss of fluid like your water may have broken? No Recent ER visits or hospitalizations? Patient reports visit to [place] approximately two weeks ago to r/o ROM [...] you for allowing me to participate in [facility]. If there are any questions, please do not hesitate to call me. Sincerely, KAROLINE HOPSON MD documented in this encounter [facility] 02-24-2023 Miscellaneous Notes Incoming telephone call from patient with concerns of leakage of fluid. Patient called in and stated that she is Leaking clear fluid and has been. Receptionist Clerk asked if she had spoken to her OB provider and she said that she had, but they told her that she is basically too early to be leaking any fluid. Receptionist Clerk recommended patient present to the nearest emergency room to be evaluated. Patient verbalized understanding and had no further questions. documented in this encounter [facility] 02-24-2023 Telephone encounter Note Incoming telephone call from patient with concerns of leakage of fluid. Patient called in and stated that she is Leaking clear fluid and has been. Receptionist Clerk asked if she had spoken to her OB provider and she said that she had, but they told her that she is basically too early to be leaking any fluid. Receptionist Clerk recommended patient present to the nearest emergency room to be evaluated. Patient verbalized understanding and had no further questions. [facility] [employer] 02-07-2023 History of Presen t illness Narrative Headache/epigastric pain/blurry vision/swelling? Occasional headaches Cramping/contractions? No Abnormal vaginal discharge? No Spotting/vaginal bleeding? No Loss of fluid like your water may have broken? No Cats in the home? No Do you change the litter box? No Flu vaccine? No Genetic testing done this here or other office? Yes Have you been seen here at [facility] in a previous ? No Recent ER visits or hospitalizations? No Bring blood sugar log or meter with you today? (Please bring them with you for every visit at [facility]) N/A Traveled outside the country [...] operators who are performing tests using either [employer] or [employer] systems and is limited to laboratories that [...] repeat. Fact Sheet for Healthcare Providers: https://www.f da.gov/media/913442/download Fact Sheet for Patients: https://www.fda.gov/media/165758 /download HABITS: Patient activity no restrictions, diet [...] a but with an anticipation of excellent shelter outcomes. In regards to the spontaneous processes, [...] previously recommended threshold of 160/110. Reference: PMID: 505033642021. Blood pressures do increase as progresses and [...] preeclampsia prevention as is recommended by the [place] [employer]ne[employer] Committee Opinion No. 743. [...] aspirin vs 10.3% no aspirin, p=0.45) (PMBID: [id number]). Given well-established benefits baby aspirin for the prevention of preeclampsia, I recommend initiating baby aspirin even in the setting of history of Joe-en-Y surgery. Micronutrient Dosing Recommendations: Calcium: recommend 1000-1200mg daily; if deficient, recommend 1800-90983 mg PO daily in divided doses Vitamin [...] sooner if clinically indicated Follow up in [facility] in 4 weeks for anatomy and clinic follow-up DISPOSITION: At this point the patient is in complete care of her industrial maintenance repairer. Patient does have ultrasound and office visit [...] Referring and communicating with other health career guidance counselor (not separately reported) Documenting clinical information in the electronic or other health record Tatiana Yap MD Maternal- Medicine [facility] [address] [facility] [address] [place] [address] [facility], the CDC, and other organizations representing maternal and public health professionals recommend that , , and lactating people and those considering receive the COVID-19 vaccination. Vaccination is the best method to reduce maternal and complications of SARS-CoV-2 infection. This document was created with [employer] technology. Though I make every effort to review the dictation as it is transcribed, on occasion the spoken word can be misinterpreted by the technology leading to inappropriate words, phrases, or sentences. This note is addressed to the requesting provider as a consultation for clinical guidance. Specific medical abbreviations are occasionally used and those are generally approved by the [place]?Board of?Obstetrics and?Gynecology?as well as?Maddison hodgson abbreviations. The above plan of care was based solely on the diagnoses for which a consultation was requested. ?More frequent testing may be indicated based on her other medical/obstetrical conditions. The management of other or medical conditions is beyond the scope of requested consultation and will continue to be followed by the primary industrial maintenance repairer or primary care provider. Note to patient: [...] of the practitioner. documented in this encounter [facility]-12-2022 Evaluation note Encounter Date Diagnosis Assessment [...] take Sudafed and/or Mucinex for congestion. Take cxsi-oin-effxc er Robitussin or Delsym for cough. Follow-up with your family physician if no improvement in 2 to 3 days. Off work tomorrow. Oct, Cough (ICD-10 - R05.9) Oct, Bronchitis (ICD-10 - J40) Acute bronchitis material was printed [employer] Other 10-19-2022 NotePatient Education Materials [facility]s: [id number] History of Present illness Narrative* Payal Richardson [...] voices understanding documented [facility] this [facility] Phone: 1(935) 380-378504-07-2022 Hospital Discharge instructions* Instructions* Hannah Zavaleta RN - 05/17/2021 Discharge Instructions for Bariatric Surgery You had a Laparoscopic Sleeve Gastrectomy (77554) surgery to treat obesity. Recovery from this [...] scheduled appointment, please call the office at [phone]. Call Your Doctor If Any of the [...] sent through Care Everywhere. * Enoxaparin (Lovenox) (Cook Islander) * Video: How to Give Yourself an Anticoagulant (Blood Thinner) Shot ([place] Islander) documented in this [facility] Work Phone: 1(974) 700-345003-23-2022 Hospital Discharge instructions* Instructions* Kendal Wilhelm APRN - SUPERVISOR HYDROCHLORIC AREA - 05/02/2021 Pre-operative Instructions NOTHING to eat [...] Day of Surgery/Procedure As a patient at [facility] you can expect quality medical and nursing care that is centered on your individual needs. Our goal is to make your surgical experience as comfortableas possible Directions to the Surgery Center The surgery Center at [facility] is located in the Emergency Room parking lot on [facility] or there is additional parking across the street. The address is [address] [place] [address]. Please check in at the Surgery Center [...] on the day of surgery please contact [phone] or [phone] If you have any other questions regarding your procedure/surgery please call your surgeon's office. documented in this [facility] Phone: 1(509) 604-760003-23-2022 History of Present illness Narrative* Eloise Chi [...] syndrome) Under care of team 05/02/2021 pcp-Dr MelgozaGleqau-angmqma-mfjq visit april 2021 Patient was evaluated in PAT & anesthesia guidelines were applied. NPO guidelines, medication instructions and scheduled arrival time were reviewed with patient. Anesthesia contacted: no Medical or cardiac clearance ordered: no, medical clearance obtained. LAURA Garcia CNP 05/02/21 11:53 AM documented in this [facility] Work Phone: 1(442) 749-842710-25-2021 Evaluation note* Encounter Date Diagnosis Assessment Notes Treatment Notes Treatment Clinical Notes Nov, Contact with and (suspected) exposure to other viral communicable diseases (ICD-10 - Z20.828) Nov, Viral URI with cough (ICD-10 - J06.9) No COVID test completed at this time. Advised patient that will tx as viral URI. Supportive care as directed, increase fluids and rest, Tylenol/Motrin as directed, rx of [place] and Flonase as directed, cool mist humidifier, [...] Patient care instructions given in writting by [facility] Care At Home document [employer] Other Evaluation note* Diagnosis LYNN (obstructive sleep apnea) Obstructive sleep apnea (adult) (pediatric) documented in this encounter [employer] Phone: evaluation note* Diagnosis S/P laparoscopic sleeve gastrectomy- Primary Post-op pain Other acute postoperative pain documented in this encounter [employer] Phone: evaluation noteNo assessment information available [facility] Work Phone: Evaluation noteNo InformationNort [employer] Other Evaluation note* Diagnosis Hypertension affecting in second trimester- Primary 16 weeks gestation of Dichorionic diamniotic twin in second trimester H/O gastric sleeve documented in this [facility]* Diagnosis Hypertension affecting in second trimester 16 weeks gestation of Dichorionic diamniotic twin in second trimester documented in this encounter [facility]* Diagnosis Hypertension affecting in second trimester- Primary Dichorionic diamniotic twin in second trimester documented in this encounter [facility]* Diagnosis History of sleeve gastrectomy- Primary History of induced hypertension documented in this encounter [facility]* Diagnosis Second trimester state, incidental Diabetes mellitus screening Screening for diabetes mellitus documented in this encounter [facility] N[facility]ative - Reported* Type Description Date Medical History METABOLIC SYNDROME Medical History SYNCOPE Medical History anxiety Surgical History WISDOM TEETH Surgical History TONSILECTOMY Surgical History ENDOSCOPY AND COLONSCOPY Surgical History C section Hospitalization History see above [facility] Other Hisxajn general Narrative - Reported* Type Description Date Medical History METABOLIC SYNDROME Medical History SYNCOPE Medical History anxiety Surgical History WISDOM TEETH Surgical History TONSILECTOMY Surgical History ENDOSCOPY AND COLONSCOPY Surgical History C section Surgical History gastric sleeve Hospitalization History see above [facility] Other Hisaluq general Narrative - Reported* Type Description Date Medical History METABOLIC SYNDROME Medical History SYNCOPE Medical History anxiety Surgical History WISDOM TEETH Surgical History TONSILECTOMY Surgical History ENDOSCOPY AND COLONSCOPY Surgical History C section Surgical History gastric sleeve Surgical History cholcystectomy 09/10/2022 Hospitalization History see above [facility] Other InstructionsNot on filedocumented in this encounter [facility] filedocumented in this encounter [facility] on filedocumented in this encounter [facility] on filedocumented in this encounter [facility] SystemInstructionsNot on filedocumented in this encounter [facility] SystemReason for visit Narrative* Auth/Cert Specialty Diagnoses / Procedures Referred By Cristal t Referred To Contact Diagnoses Morbid obesity (HCC) Obstructive sleep apnea GERD (gastroesophageal reflux disease) MORBID OBESITY, OBSTRUCTIVE SLEEP APNEA, GERD Procedures TX LAP, JAY RESTRICT PROC, LONGITUDINAL GASTRECTOMY XI ROBOTIC LAPAROSCOPIC GASTRECTOMY SLEEVE , LIVER BIOPSY, EGD- GI SCHEDULED Patricia Mars, [address] [facility] [address] [facility] [address] [place] [address] [employer] [address] [place] [address] Referral ID Status Reason Start Date Expiration Date Visits Re quested Visits Authorized [id number] 1 1 [employer] Phone: Summary Purpose Family History No [...] Procedures Referred By Contact Referred To Contact [facility] Diagnoses LYNN (obstructive sleep apnea) Procedures Baseline Diagnostic Sleep Study Ike Moreno MD [address] [address] Specialty Diagnoses / Procedures Referred By Contac t Referred To Contact Diagnoses Hypertension affecting in second trimester 16 weeks gestation of Dichorionic diamniotic twin in second trimester Procedures ECG 12 lead Tatiana Yap MD [address] [place] [id number] Referral ID Status Reason Start Date Expiration Date V isits Requested Visits Authorized [id number] Pending Review 02/07/2023 02/07/2024 1 1 Specialty Diagnoses / Procedures Referred By Contac t Referred To Contact Maternal and Medicine Diagnoses Hypertension affecting in second trimester Dichorionic diamniotic twin in second trimester Procedures MFM with or without consult Karoline Hopson MD [address] [place] [address] [facility]aternal [facility] [address] [place] [address] Referral ID Status Reason Start Date Expiration Date V isits Requested Visits Authorized [id number] Pending Review 03/05/2023 03/04/2024 1 1 Chief Complaint and Reason for Visit Chief Complaint Dysuria Additional Source Comments INFORMATION SOURCE (unrecogn ized section and content) DATE CREATED AUTHOR 07/31/2017 Greg Madrigal [facility] DATE CREATED AUTHOR AUTHOR'S ORGANIZ ATION 05/21/2021 [facility] DATE CREATED AUTHOR AUTHOR'S ORGANIZ ATION 12/03/2021 [facility] DATE CREATED AUTHOR AUTHOR'S ORGANIZ ATION 01/12/2022 [facility] DATE CREATED AUTHOR AUTHOR'S ORGANIZ ATION 02/11/2022 [facility] DATE CREATED AUTHOR AUTHOR'S ORGANIZ ATION 09/13/2022 [facility] DATE CREATED AUTHOR AUTHOR'S ORGANIZ ATION 02/09/2023 [facility] DATE CREATED AUTHOR AUTHOR'S ORGANIZ ATION 04/12/2023 [facility] DATE CREATED AUTHOR AUTHOR'S ORGANIZ ATION 06/12/2023 [facility] EPIC Reason for Visit (unrecogniz ed section and content) Status Reason Specialty Diagnoses / Procedures Referred By Contact Referred To Contact [facility] Diagnoses LYNN (obstructive sleep apnea) Procedures Baseline Diagnostic Sleep Study Ike Moreno MD [address] [facility] [address] [place] [address] Status Reason Specialty Diagnoses / Procedures Referre d By Contact Referred To Contact Diagnoses K21.9 GERD E66.9 OBESITY Procedures TX EGD TRANSORAL BIOPSY SINGLE/MULTIPLE EGD BIOPSY Patricia Mars DO [address] [facility] [address] [place] [address] [facility] Reason Comments twin HX C/S HX gastric sleeve HX PTD Reason Comments Dichorionic Diamniotic Twin Hypertension Reason Comments Routine Visit Care Teams (unrecognized sec tion and content) Railroad Inspector Relationship Specialty Start Date End Date Stephane Martin MD [address] [place] [address] PCP - General 05/17/20 Railroad Inspector Relationship Specialty Start Date End Date Stephane Martin MD [address] [place] [address] PCP - General 05/17/20 Team Status: Inactive Member Role Status Dates Ale Shields APRN Attending Provider Active Railroad Inspector Relationship Specialty Start Date End Date Margot Toure DO [address] [place] [address] PCP - General Family Medicine 01/03/23 Railroad Inspector Relationship Specialty Start Date End Date Margot Toure DO [address] [facility] [place] [address] PCP - General Family Medicine 01/03/23 Railroad Inspector Relationship Specialty Start Date End Date Margot Toure DO [address] [facility] [place] [address] PCP - General Family Medicine 01/03/23 Railroad Inspector Relationship Specialty Start Date End Date Margot Toure DO [address] [place] [facility] [place] [address] PCP - General Family Medicine 01/03/23 Railroad Inspector Relationship Specialty Start Date End Date Margot Toure DO [address] [place] [facility] [place] [address] PCP - General Family Medicine 01/03/23 Railroad Inspector Relationship Specialty Start Date End Date Margot Toure DO [address] [place] [facility] [place] [address] PCP - General Family Medicine 01/03/23 Railroad Inspector Relationship Specialty Start Date End Date Margot Toure DO [address] [place] [facility] [place] [address] PCP - General Family Medicine 07/01/22 Railroad Inspector Relationship Specialty Start Date End Date Margot Toure DO [address] [place] [address] PCP - General Family Medicine 07/01/22 Ordered [...] (Given - Provider: Sharmin Sam APRN - SENIOR L[employer]ATION [employer]) ceFAZolin (ANCEF) 3000 mg in sterile water [...] 0630 (Due) 1631 (Stopped - Provider: Hannah Zaavleta RN) lactated ringers infusion IntraVENous, at 100 mL/hr, CONTINUOUS, Starting on Fri05/16/21 at 0630, Pre-op (day of surgery) 0650 (New Bag - Provider: Whitney Ray RN)0709 (NoRateChange - Provider: Sharmin Sam APRN - SENIOR LITIGATION [employer])0856 (Anesthesia Volume Adjustment - Provider: Sharmin Sam APRN - SENIOR L[employer]ATION [employer]) 1631 (Stopped - Provider: Hannah Zavaleta RN) [...] to back table, 1000 ml. 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 [employer] provides no warranty or guarantee of the accuracy or completeness of information in this document.
--- NOTE | 2023-06-16 19:04 | US_ITS ---
[address] [address] Patient Name: JADEN VELÁSQUEZ MRN: [facility]:[id number] date: 1995 Sex: F Assigned Patient Location: [facility] Current Patient Location: Accession/Order Number: [id number] Exam Date: 06/16/2023 19:07 Report Date: 06/17/2023 07:53 At the request of: ODILON ARNETT Procedure: US OB BPP w non-stress Ultrasound biophysical profile Baby A Ultrasound biophysical profile Baby B CLINICAL: Twin . TECHNIQUE: Dedicated ultrasound imaging of each fetus was performed to include the saddle stitch operator's evaluation of biophysical profile. FINDINGS: Comparison: Ultrasound 06/12/2023, 06/09/2023. There is a viable twin gestation. BABY A is in breech presentation with heart rate of 142 bpm. Amniotic fluid largest pocket of 5.8 x 5.7 cm. motion: 2 out of 2. tone: 2 out of 2. breathin out of 2. Amniotic fluid volume: 2 out of 2. Total score: 8 out of 8. BABY B is in vertex presentation with heart rate of 145 bpm. Amniotic fluid largest pocket of 3.6 x 6.0 cm. motion: 2 out of 2. tone: 2 out of 2. breathin out of 2. Amniotic fluid volume: 2 out of 2. Total score: 8 out of 8. US/US OB BPP w non-stress IMPRESSION: 1. Viable twin gestation. 2. BABY A is in breech presentation with heart rate of 142 bpm. Amniotic fluid largest pocket of 5.8 x 5.7 cm. Total biophysical profile score 8 out of 8. 3. BABY B is in vertex presentation with heart rate of 145 bpm. Amniotic fluid largest pocket of 3.6 x 6.0 cm. Total biophysical profile score 8 out of 8. Electronically authenticated by: BAO BARFIELD Date: 06/17/2023 07:53
--- NOTE | 2023-06-16 19:06 | US_ITS ---
[address] [address] Patient Name: JADEN VELÁSQUEZ MRN: [facility]:[id number] date: 1995 Sex: F Assigned Patient Location: Current Patient Location: Accession/Order Number: [id number] Exam Date: 06/16/2023 19:07 Report Date: 06/17/2023 07:53 At the request of: ODILON ARNETT Procedure: US OB >= 14 wk fetus add gest Ultrasound biophysical profile Baby A Ultrasound biophysical profile Baby B CLINICAL: Twin . TECHNIQUE: Dedicated ultrasound imaging of each fetus was performed to include the senior major gifts officer's evaluation of biophysical profile. FINDINGS: Comparison: Ultrasound 06/12/2023, 06/09/2023. There is a viable twin gestation. BABY A is in breech presentation with heart rate of 142 bpm. Amniotic fluid largest pocket of 5.8 x 5.7 cm. motion: 2 out of 2. tone: 2 out of 2. breathin out of 2. Amniotic fluid volume: 2 out of 2. Total score: 8 out of 8. BABY B is in vertex presentation with heart rate of 145 bpm. Amniotic fluid largest pocket of 3.6 x 6.0 cm. motion: 2 out of 2. tone: 2 out of 2. breathin out of 2. Amniotic fluid volume: 2 out of 2. Total score: 8 out of 8. US/US OB >= 14 wk fetus add gest IMPRESSION: 1. Viable twin gestation. 2. BABY A is in breech presentation with heart rate of 142 bpm. Amniotic fluid largest pocket of 5.8 x 5.7 cm. Total biophysical profile score 8 out of 8. 3. BABY B is in vertex presentation with heart rate of 145 bpm. Amniotic fluid largest pocket of 3.6 x 6.0 cm. Total biophysical profile score 8 out of 8. Electronically authenticated by: BAO BARFIELD Date: 06/17/2023 07:53
[2023-06-16 19:50] VITALS: BP 104/73; PULSE 83
== END 2023-06-16 20:38 | disposition home or self-care (01) ==
LOC: US 18:56 → FBC 19:01
PROVIDERS: Visit Provider Obstetrics & Gynecology
DX: O30.043 Twin pregnancy, dichorionic/diamniotic, third trimester (principal)
CPT/HCPCS: 59025; 76810; 76818

== ENCOUNTER 2023-06-19 07:00 | Outpatient (OUT) | payer MEDICAID, SELFPAY ==
--- OUTSIDE RECORDS SUMMARY | 2023-06-19 07:24 | XMS_ITS | CCD ---
Author Organization [facility] Care Team Providers Care Property And Casualty Insurance Agent Name Role Phone Neo Anderson Unavailable Unavailable Neo Anderson Unavailable Unavailable Jose Maria Ortega MD, [facility] Primary Care Provider DOC OKEEFE Referring Unavailable JOSE MARIA ORTEGA, STEPHANE Primary Care Unavailtina e DOC OKEEFE Referring Unavailable JOSE MARIA ORTEGA, [facility] Primary Care Unavailabl e IKE MORENO Referring Unavailable JOSE MARIA ORTEGA, [facility] Primary Care Unavailabl e Ale Harris [...] DR JAMEEL Stern Admitting Unavailable ZIEBER, DR COURTNYE Rucker Consulting Unavailable REQUEST, NONE LISTED Primary [...] Unavailable Cornelius LAURA Ale Kishor Attending Provider [phone] Cornelius Ale Unavailable PATRICIA MARS Attending Unavailable PATRICIA MARS Admitting Unavailable YAW, MARGOT Primary Care Unavailable Lilia Daugherty Unavailable Yaw DO, Margot G Primary Care Provider [phone] YAW, MARGOT G Referring Unavailable YAW, MARGOT [...] sources) Ibuprofen; Translations: [IBUPROFEN] Drug Allergy 09-19-2021 [facility] Medications Current Medications Medication Drug [...] 30 mg oral tablet (1 source) Uncompetitive E-nzmxli-H-aspartate Receptor Antagonist, Sigma-1 Agonist Start: 2020 take 1 tablet by mouth every eight hours Sigel DMT 30-30 MG 1 tablet Orally every [...] Iron (2 sources) Iron Active lactobacillus acidophilus [id number] unt / pectin 100 mg oral tablet [...] extended release oral tablet (2 sources) Uncompetitive R-iuwuix-N-asparta te Receptor Antagonist, Sigma-1 Agonist Start: 01-14-2022 [...] Interpretation Reference Range Facility TB UA (CLEAN/CATCH) INSTRUCTIONAL AIDE/LISA RO IF IND.on 03-24-2023 BILIRUBIN URINE Negative NEGATIVE [facility] thcare BLOOD URINE Negative NEGATIVE [facility] re Clarity (U) CLEAR CLEAR [facility] Color (U) YELLOW YELLOW [facility] GLUCOSE URINE UA Negative NEGATIVE mg/dL [facility] Interpretation and review of laboratory results Abnormal [facility] re Ketones Ql (U) TRACE Abnormal NEGATIVE mg/dL [facility] ealthcare Leukocyte esterase Test strip Ql (U) Negative NEGATIVE [facility] Health[facility] e NITRITE URINE Negative NEGATIVE [place] [facility] Health care pH (U) 6.0 [pH] 5.0 - 9.0 [facility] PROTEIN URINE TRACE NEG/TRACE mg/dL [facility] SPECIFIC GRAVITY URINE >=1.030 Abnormal 1.005 - 1.025 [facility] URINE MICROSCOPIC INDICATED NO [facility] UROBILINOGEN URINE 0.2 EU/dL 0.2 - 1.0 EU/dL [facility] [place] [facility] Urinalysis macro (dipstick) panel (U)on 03-19-2023 Bilirubin, UA Negative Negative - 4(70) +++ mg/dL [facility] Blood, UA Negative Negative - 50 Krzysztof/mcL [facility] Clarity, UA Clear [facility] re Color, UA Yellow [facility] Glucose, UA Negative Negative - 1999(110) ++++ mg/dL [facility] Interpretation and review of laboratory results Abnormal [facility] re Ketones, UA Negative Negative - 160(16) ++++ mg/dL [facility] Leukocytes, UA Negative Negative - 500+++ Mckayla/mcL [facility] Nitrite, UA Negative Negative - Positive [facility] pH, UA 6.0 5 - 9 [facility] e Protein, UA Positive Negative - 1999(20) ++++ mg/dL [facility] Spec Grav, UA 1.030 1 - 1.03 [facility] Urobilinogen, UA 0.2 0.2 - 12 mg/dL [facility] Health[facility] e CBC without diffon External Hematocrit Hct 33.7 [facility] Comment on above: See attached External Hemoglobin 10.9 [facility] [place] [facility] Comment on above: See attached External MCH 29.0 [facility]th System Comment on above: See attached External Mchc 32.3 [facility] ealt System Comment on above: See attached External Mcv 89.6 [facility] Comment on above: See attached External Mpv 9.7 [facility] Comment on above: See attached External Platelet Count 268 [facility] Comment on above: See attached External Rbc Count 3.76 [facility] Comment on above: See attached External Rdw 13.4 [facility] Comment on above: See attached External Wbc Count 9.5 [facility] Comment on above: See attached [facility] Urine protein creatinine rat ioon 02-27-2023 Protein/Creatinine (U) [Mass ratio] 0.10 mg/g [facility] Comment on above: see attached [facility] Ultrasound - Officeon 2022 Radiology Study observation (narrative) [facility] HIV 1&2 AB/AG Screen (P24 AG )on 12-20-2022 HIV 1&2 AB/AG Non-Reactive [facility] Hepatitis B surface antigeno n 12-20-2022 Hepatitis B Surface Antigen Negative [facility] No Panel Informationon 12-20 [facility] Rubella IGG immune statuson 12-20-2022 Rubella immune IgG 1.96 [facility] Syphilis Total(Unknown Syphi lis Status)on 12-20-2022 [facility]philis [facility] 2022 SEE SCANNED REPORt MANUAL LY TRANSCRIBED RESULTS [facility] COVID + FLU Quick Testingon 10-12-2022 SARS-CoV-2 (COVID-19) RNA BECCA+probe Ql (Unsp spec) negtaive [employer] [facility] [employer] Other COVID + FLU Quick Testing Negative [employer] [facility] [employer] Other Basic Metabolic Profon 09-11 Anion gap [Moles/Vol] 9 mmol/L Normal 9-17 [facility] Comment on above: Performed By: #### B FIFI CBC, PT #### [employer] [address] [place] [address] [phone] Supervisor Waterworks: Anthony Aguilar MD Calcium [Mass/Vol] 8.8 mg/dL Normal 8.6-10.4 [facility] Comment on above: Performed By: #### B FIFI CBC, PT #### [employer] [address] [place] [address] Supervisor Waterworks: Anthony Aguilar MD Chloride [Moles/Vol] 106 mmol/L Normal 98-107 [facility] Comment on above: Performed By: #### B FIFI CBC, PT #### [employer] [address] [place] [phone] Supervisor Waterworks: Anthony Aguilar MD CO2 [Moles/Vol] 23 mmol/L Normal 20-31 [facility] Comment on above: Performed By: #### B MP, CBC, PT #### [facility] [employer] [address] [place] [phone] Supervisor Waterworks: Anthony Aguilar MD Creatinine [Mass/Vol] 0.7 mg/dL Normal 0.5-0.9 [facility] Comment on above: Performed By: #### B MP, CBC, PT #### [facility] [employer] [address] [place] [phone] Supervisor Waterworks: Anthony Aguilar MD GFR/1.73 sq M.predicted among non-blacks MDRD (S/P/Bld) [Vol rate/Area] mL/min/{1.73_m2} Normal >60 [facility] Comment on above: Result Comment: These [...] By: #### B FIFI, CBC, PT #### [facility] [employer] [address] [place] [phone] Supervisor Waterworks: Anthony Aguilar MD Glucose [Mass/Vol] 79 mg/dL Normal 70-99 [facility] Comment on above: Performed By: #### B FIFI, CBC, PT #### [facility] [employer] [address] [place] [phone] Supervisor Waterworks: Anthony Aguilar MD Potassium [Moles/Vol] 4.1 mmol/L Normal 3.7-5.3 [facility] Comment on above: Performed By: #### B FIFI, CBC, PT #### [facility] [employer] [address] [place] [phone] Supervisor Waterworks: Anthony Aguilar MD Sodium [Moles/Vol] 138 mmol/L Normal 135-144 [facility] Comment on above: Performed By: #### B MP, CBC, PT #### [facility] [employer] [address] [place] [phone] Supervisor Waterworks: Anthony Aguilar MD Urea nitrogen [Mass/Vol] 11 mg/dL Normal 6-20 [facility] Comment on above: Performed By: #### B MP, CBC, PT #### [facility] [employer] [address] [place] [address] Supervisor Waterworks: Anthony Aguilar MD CBCon 09-11-2022 Erythrocyte distribution width (RBC) [Ratio] 13.2 % Normal 11.8-14.4 [facility] Comment on above: Performed By: #### B MP, CBC, PT #### [facility] [employer] [address] [place] [phone] Supervisor Waterworks: Anthony Aguilar MD Hematocrit (Bld) [Volume fraction] 41.6 % Normal 36.3-47.1 [facility] Comment on above: Performed By: #### B FIFI, CBC, PT #### [facility] [employer] [address] [place] [phone] Supervisor Waterworks: Anthony Aguilar MD Hemoglobin (Bld) [Mass/Vol] 13.3 g/dL Normal 11.9-15.1 [facility] Comment on above: Performed By: #### B MP, CBC, PT #### [facility] [address] [place] [phone] Supervisor Waterworks: Anthony Aguilar MD MCH (RBC) [Entitic mass] 28.3 pg Normal 25.2-33.5 [facility] Comment on above: Performed By: #### B MP, CBC, PT #### [facility] [address] [place] [phone] Supervisor Waterworks: Anthony Aguilar MD MCHC (RBC) [Mass/Vol] 32.0 g/dL Normal 28.4-34.8 [facility] Comment on above: Performed By: #### B MP, CBC, PT #### [address] [address] Supervisor Waterworks: Anthony Aguilar MD MCV (RBC) [Entitic vol] 88.5 fL Normal 82.6-102.9 [facility] Comment on above: Performed By: #### B MP, CBC, PT #### [address] [address] Supervisor Waterworks: Anthony Aguilar MD NRBC Automated 0.0 per 100 WBC Normal 0.0 [facility] Comment on above: Performed By: #### B MP, CBC, PT #### [address] [address] Supervisor Waterworks: Anthony Aguilar MD Platelet mean volume (Bld) [Entitic vol] 9.7 fL Normal 8.1-13.5 [facility] Comment on above: Performed By: #### B MP, CBC, PT #### [address] [address] Supervisor Waterworks: Anthony Aguilar MD Platelets (Bld) [#/Vol] 276 10*3/uL Normal 138-453 [facility] Comment on above: Performed By: #### B MP, CBC, PT #### [address] [address] Supervisor Waterworks: Anthony Aguilar MD RBC (Bld) [#/Vol] 4.70 10*6/uL Normal 3.95-5.11 [facility] Comment on above: Performed By: #### B MP, CBC, PT #### [address] [address] Supervisor Waterworks: Anthony Aguilar MD WBC (Bld) [#/Vol] 7.4 10*3/uL Normal 3.5-11.3 [facility] Comment on above: Performed By: #### B MP, CBC, PT #### [facility] [address] [place] [address] [phone] Supervisor Waterworks: Anthony Aguilar MD PTon 09-11-2022 INR Coag (PPP) [Relative time] 1.0 {INR} Normal [facility] Comment on above: Result Comment: Therapeutic Range: Moderate Anticoagulant Intensity: INR = 2.0-3.0 High Anticoagulant Intensity: INR = 2.5-3.5 Performed By: #### B MP, CBC, PT #### [facility] [employer] [address] [place] [address] [phone] Supervisor Waterworks: Anthony Aguilar MD PT Coag (PPP) [Time] 12.9 s Normal 11.7-14.9 [facility] Comment on above: Performed By: #### B MP, CBC, PT #### [employer] [address] [place] [address] [phone] Supervisor Waterworks: Anthony Aguilar MD Surgical Pathologyon 023 Surgical Pathology (NOTE) Path Number: [id number] -- Diagnosis -- GALLBLADDER, CHOLECYSTECTOMY: -CHRONIC CHOLECYSTITIS [...] lesions or periductal lymph nodes are identified. Process Development Associate sections 1c. tm Microscopic Description Microscopic examination performed. Processing Lab: [address] [phone] Interpretation Performed at [address] [phone] SURGICAL PATHOLOGY CONSULTATION Patient Name: FINA WALKER [facility] Rec: [id number] [facility] [employer] [facility] [facility] ANATOMIC PATHOLOGY [address] [place] [phone] Normal [facility] Urine Cultureon 02-08-2022 Bacteria identified Cx Nom (U) Reason for Exam Dysuria Urine ORGANISM: Escherichia coli (O:ESCCOL) [place] Count >100,000 Aerobic LISA Charge (NMIC56) ---- [...] RESISTANT TO ALL B-LACTAM DRUGS. PERFORMED BY: [place] [address] PATHOLOGIST MOLDING FITTER SAMIRA WEN M.D. [facility] Comment on above: Performed By: #### C UU #### [facility] [address] [id number] [facility] VC CONSULT FOLLOWUPon 2021 VC CONSULT FOLLOWUP Patient: FINA WALKER Exam Date: 01/08/2022 : 1995 Gender:F Ordering : DR JAMEEL ABEBE M.D. Admission #: [id number] Family : Order #: [id number] CLICK HERE TO VIEW EXAM RADIOLOGY REPORT [...] Hinton M.D. on 01/08/2022 at 10:10 Normal [facility] VC EXT VENOUS RT LIMITEDon 1 03-10-2021 VC EXT VENOUS RT LIMITED Patient: FINA WALKER Exam Date: 01/08/2022 : 1995 Gender:F Ordering : DR JAMEEL ABEBE M.D. Admission #: [id number] Family : Order #: [id number] CLICK HERE TO VIEW EXAM RADIOLOGY REPORT [...] Hinton M.D. on 01/08/2022 at 10:05 Normal [facility] VC ENDOVENOUS ABL 1ST V RTon 12-31-2021 VC ENDOVENOUS ABL 1ST V RT Patient: FINA WALKER Exam Date: 12/31/2021 : 1995 Gender:F Ordering : DR JAMEEL ABEBE M.D. Admission #: [id number] Family : Order #: [id number] CLICK HERE TO VIEW EXAM RADIOLOGY REPORT [...] Abebe MD on 12/31/2021 at 11:06 Normal [facility] ED Clinical Summaryon 2021 ED Clinical Summary [facility] ? Urgent Care [address] [place] [id number] Clinical Summary PERSON INFORMATION Name: VERNON WALKER Age: 26 Years Sex: FEMALE : 1995 MRN: Acct#: Visit Reason: OTTERBEIN PHYSICAL Arrival: 11/28/2021 10:39:56 Discharge: 11/28/2021 10:59:00 LOS: 000 00:20 Check In: 11/28/2021 10:39:56 Checkout: 11/28/2021 10:59:00 Address: [address] [place], [place] [id number] PCP: Provider, None PROVIDER INFORMATION VITALS INFORMATION Vital Sign Triage Latest Temperature Tympanic Temperature Temporal Artery Pulse Rate O2 Sat Respiratory Rate Blood Pressure / / MEDICAL INFORMATION Medications Given: Allergy Information: No known allergies PHYSICIAN DOCUMENTATION DISCHARGE INFORMATION: Discharge Disposition: Eloped Discharge Location: PATIENT EDUCATION INFORMATION Instructions: Follow-Up: DIAGNOSIS: Patient Understands: Comment: Normal [facility] ED Patient Summaryon 022 ED Patient Summary [facility] ? Urgent Care [address] [place] [id number] PATIENT DISCHARGE INSTRUCTIONS Patient Information Name: VERNON [...] with a doctor, nurse practitioner, or physician?s trade sales assistant for ongoing care. If your [...] so we can reach you if necessary. [facility] Emergency Department has provided you with a complete list of medications post discharge. Please inform your construction person/provider of your visit and for further instruction [...] Control and Prevention October 2013 [facility] VC CONSULT FOLLOWUPon 2021 VC CONSULT FOLLOWUP Patient: FINA WALKER Exam Date: 11/28/2021 : 1995 Gender:F Ordering : DR JAMEEL ABEBE M.D. Admission #: [id number] Family : Order #: [id number] CLICK HERE TO VIEW EXAM RADIOLOGY REPORT [...] Hinton M.D. on 11/28/2021 at 10:04 Normal [facility] VC EXT VENOUS LT LIMITEDon 1 VC EXT VENOUS LT LIMITED Patient: FINA WALKER Exam Date: 11/28/2021 : 1995 Gender:F Ordering : DR JAMEEL ABEBE M.D. Admission #: [id number] Family : Order #: [id number] CLICK HERE TO VIEW EXAM RADIOLOGY REPORT [...] Hinton M.D. on 11/28/2021 at 09:45 Normal [facility] VC ENDOVENOUS ABL 1ST V LTon 11-22-2021 VC ENDOVENOUS ABL 1ST V LT Patient: FINA WALKER Exam Date: 11/22/2021 : 1995 Gender:F Ordering : DR JAMEEL ABEBE M.D. Admission #: [id number] Family : Order #: [id number] CLICK HERE TO VIEW EXAM RADIOLOGY REPORT PROCEDURE: VEIN CENTER ENDOVENOUS ABLATION FIRST VEIN LEFT GREAT SAPHENOUS VEIN COMPARISON: VC VENOUS REFLUX JOVANA LMT, 10/17/2021. INDICATIONS: Pain co-occurrent and due to varicose veins of bilateral legs I83.813 OPERATIVE REPORT: The risks and benefits of the procedure had been previously discussed, and were rediscussed at length. Informed written consent was obtained by nh and Christopher Zavala assisted. Time out procedure [...] Jameel Abebe MD on 11/22/2021 at 09:04 [facility] VC COMP CONSULTATIONon 10-17 VC COMP CONSULTATION Patient: FINA WALKER Exam Date: 10/17/2021 : 1995 Gender:F Ordering : DR JAMEEL ABEBE M.D. Admission #: [id number] Family : Order #: [id number] CLICK HERE TO VIEW EXAM RADIOLOGY REPORT [...] arterial disease 5. CEAP: C2, EC, AP, SD PLAN: 1. Continued use of compression stockings [...] 8 mmol/L Low 9 - 17 mmol/L [employer] Calcium [Mass/Vol] 8.6 mg/dL 8.6 - 10. 4 mg/dL [employer] Chloride [Moles/Vol] 106 mmol/L 98 - 107 mmol/L [employer] CO2 [Moles/Vol] 23 mmol/L 20 - 31 mmol/L [employer] Creatinine [Mass/Vol] 0.67 mg/dL 0.50 - 0.90 mg/dL [employer] GFR >60 >60 mL/min [employer] GFR Non- >60 >60 mL/min [employer] GFR/1.73 sq M.predicted MDRD (S/P/Bld) [Vol rate/Area] [employer] Comment on above: Average GFR for 20-2 9 years old: 116 mL/min/1.73sq m Chronic Kidney Disease: <60 mL/min/1.73sq m Kidney failure: <15 mL/min/1.73sq m eGFR calculated using average adult body mass. Additional eGFR calculator available at: http://www.[employer].TechTurn/multiple_crcl_2011.htm Glucose [Mass/Vol] 83 mg/dL 70 - 99 mg/dL [facility] [employer] Interpretation and review of laboratory results Abnormal [employer] Potassium [Moles/Vol] 3.9 mmol/L 3.7 - 5.3 mmol/L [employer] Sodium [Moles/Vol] 137 mmol/L 135 - 144 mmol/L [employer] Urea nitrogen (BldV) [Mass/Vol] 7 mg/dL 6 - 20 mg/dL [employer] [facility] CBCon 05-17-2021 Hematocrit (Bld) [Volume fraction] 34.4 % Low 36.3 - 47.1 % [employer] Hemoglobin.gastroin testinal spec 1 Ql (Stl) 11.0 g/dL Low 11.9 - 15.1 g/dL [facility] Interpretation and review of laboratory results Abnormal [facility] MCH (RBC) [Entitic mass] 27.2 pg 25.2 - 33.5 pg [facility] MCHC (RBC) [Mass/Vol] 32.0 g/dL 28.4 - 34.8 g/dL [facility] MCV (RBC) [Entitic vol] 85.1 fL 82.6 - 102.9 fL [facility] NRBC Automated 0.0 0.0 per 100 WBC [facility] Platelet distribution width (Bld) [Ratio] 14.1 % 11.8 - 14.4 % [facility] Platelet mean volume (Bld) [Entitic vol] 10.1 fL 8.1 - 13.5 fL [facility] Platelets (Bld) [#/Vol] 302 10*3/uL [facility] RBC (Bld) [#/Vol] 4.04 10*6/uL 3.95 - 5.1 1 m/uL [facility] WBC (Bld) [#/Vol] 13.7 10*3/uL High [facility] SURGICAL PATHOLOGY REPORTon 05-17-2021 Surgical Pathology [...] x 0.5 cm piece of adipose tissue. Process Development Associate sections 1cs. tm Microscopic Description 1 H&E reviewed. Microscopic examination performed. SURGICAL PATHOLOGY CONSULTATION Patient Name: FINA WALKER [facility] Rec: [id number] Path Number: [id number] [facility] [employer] [facility] ANATOMIC PATHOLOGY [facility]. [place], [place] [address] [facility] [employer] Basic Metabolic Panelon - Anion gap [Moles/Vol] 10 mmol/L 9 - 17 mmol/L [place] [employer] Calcium [Mass/Vol] 8.7 mg/dL 8.6 - 10. 4 mg/dL [place] [employer] Chloride [Moles/Vol] 105 mmol/L 98 - 107 mmol/L [employer] CO2 [Moles/Vol] 23 mmol/L 20 - 31 mmol/L [facility] [employer] Creatinine [Mass/Vol] 0.75 mg/dL 0.50 - 0.90 mg/dL [place] [employer] GFR >60 >60 mL/min [facility] [employer] GFR Non- >60 >60 mL/min [employer] GFR/1.73 sq M.predicted MDRD (S/P/Bld) [Vol rate/Area] [facility] Comment on above: Average GFR for 20-2 9 years old: 116 mL/min/1.73sq m Chronic Kidney Disease: <60 mL/min/1.73sq m Kidney failure: <15 mL/min/1.73sq m eGFR calculated using average adult body mass. Additional eGFR calculator available at: http://www.[employer]/multiple_crcl_2011.htm Glucose [Mass/Vol] 132 mg/dL High 70 - 99 mg/dL [facility] [employer] Interpretation and review of laboratory results Abnormal [employer] Potassium [Moles/Vol] 3.5 mmol/L Low 3.7 - 5.3 mmol/L [place] [employer] Sodium [Moles/Vol] 138 mmol/L 135 - 144 mmol/L [facility] [employer] Urea nitrogen (BldV) [Mass/Vol] 10 mg/dL 6 - 20 mg/dL [facility] CBC without Diffon Hematocrit (Bld) [Volume fraction] 38.8 % 36.3 - 47.1 % [place] [employer] Hemoglobin.gastroin testinal spec 1 Ql (Stl) 12.6 g/dL 11.9 - 15.1 g/dL [facility] Interpretation and review of laboratory results Abnormal [facility] MCH (RBC) [Entitic mass] 27.2 pg 25.2 - 33.5 pg [facility] MCHC (RBC) [Mass/Vol] 32.5 g/dL 28.4 - 34.8 g/dL [facility] MCV (RBC) [Entitic vol] 83.8 fL 82.6 - 102.9 fL [facility] NRBC Automated 0.0 0.0 per 100 WBC [facility] Platelet distribution width (Bld) [Ratio] 13.9 % 11.8 - 14.4 % [facility] Platelet mean volume (Bld) [Entitic vol] 9.8 fL 8.1 - 13.5 fL [facility] Platelets (Bld) [#/Vol] 340 10*3/uL [facility] RBC (Bld) [#/Vol] 4.63 10*6/uL 3.95 - 5.1 1 m/uL [facility] WBC (Bld) [#/Vol] 15.0 10*3/uL High [facility] POC Glucose Fingerstickon Glucose [Mass/Vol] 77 mg/dL 65 - 105 mg/dL [facility] POCT urine pregnancyon 05-16 Beta HCG ( test) Ql (U) Negative NEGATIVE [facility] Comment on above: Specimens with hCG l evels near the threshold of the test (25 mIU/mL) may give a negative or indeterminate result. In such cases, another test should be performed with a new specimen in 48-72 hours. If early is suspected clinically in this setting, correlation with quantitative serum b-hCG level is suggested. [facility] [id number] 05-15-2021 SARS-CoV-2 (COVID-19) RNA BECCA+probe Ql (Unsp spec) Normal [facility] Comment on above: Performed By: #### C OVID #### [facility] [employer] [address] [place] [address] Supervisor Waterworks: Anthony Aguilar MD [facility] [address] [address] Supervisor Waterworks: Jameel Lawler MD SARS-CoV-2 (COVID-19) RNA BECCA+probe Ql (Unsp spec) Not detected Normal NOTDET [facility] Comment on above: Result Comment: The specimen is NEGATIVE for SARS-CoV-2, the novel coronavirus associated with COVID-19. A negative result does not rule out COVID-19. Lucre[employer] SARS-CoV-2 for use on the [employer] [place] is a real-time RT-PCR test intended [...] this assay. Fact sheet for Healthcare Providers: https://www.fda.gov/media/703293/download Fact sheet for Patients: https://www.fda.gov/media/148928/download METHODOLOGY: RT-PCR Performed By: #### C OVID #### [address] [address] Supervisor Waterworks: Anthony Aguilar MD [facility] [address] [place] [address] [place] [address] Supervisor Waterworks: Jameel Lawler MD [id number] 05-14-2021 SARS-CoV-2 (COVID-19) RNA BECCA+probe Ql (Unsp spec) .NASOPHARYNGEAL SWAB Normal [facility] Comment on above: Performed By: #### C OVID #### [id number] [place], [place] [id number] Supervisor Waterworks: Anthony Aguilar MD [facility] [address] [place] [address] [place] [address] Supervisor Waterworks: Jameel Lawler MD Nicotine, Bloodon 05-05-2021 5-PH-Nrgylzzz <2 ng/mL [facility] Cotinine <2 ng/mL [facility] Nicotine <2 ng/mL [employer] Comment on above: (NOTE) Consistent with abstinence [...] developed and its performance characteristics determined by [facility]. It has not been cleared or approved by the US Food and Drug Administration. This test was performed in a CLIA certified laboratory and is intended for clinical purposes. Performed By: [facility] [address] [place] [id number] Cilnical Scientist: Yara Rodriguez MD [facility] EKG 12 LeadOrdered By: Diaz Conway on 05-03-2021 Atrial Rate 72 BPM [employer] Work Phone: P [place] 45 degrees [employer] Phone: P-R Interval 142 ms [employer] Work Phone: Q-T Interval 376 ms [employer] Work Phone: QRS Duration 100 ms [employer] Work Phone: QTc Calculation (Bazett) 411 ms [employer] Work Phone: R [place] 22 degrees [employer] Phone: T [place] 32 degrees [employer] Work Phone: Ventricular Rate 72 BPM [employer] Work Phone: [employer] Work Phone: EKG 12 Leadon 05-03-2021 Normal sinus rhythm Normal ECG No previous ECGs available [facility] STV Diaz Romero MD - 05/03/2021 Normal sinus rhythm Normal ECG No previous ECGs available [employer] Work Phone: APTTon 05-02-2021 aPTT Coag (Bld) [Time] 25.0 s [employer] Comment on above: IV Heparin Therapy Range: 48.6-77.8 Basic Metabolic Panelon 04-11 Anion gap [Moles/Vol] 15 mmol/L 9 - 17 mmol/L [facility] Calcium [Mass/Vol] 9.8 mg/dL 8.6 - 10. 4 mg/dL [facility] Chloride [Moles/Vol] 102 mmol/L 98 - 107 mmol/L [employer] CO2 [Moles/Vol] 21 mmol/L 20 - 31 mmol/L [facility] Creatinine [Mass/Vol] 0.55 mg/dL 0.50 - 0.90 mg/dL [facility] GFR >60 >60 mL/min [facility] GFR Non- >60 >60 mL/min [facility] GFR/1.73 sq M.predicted MDRD (S/P/Bld) [Vol rate/Area] [facility] Comment on above: Average GFR for 20-2 9 years old: 116 mL/min/1.73sq m Chronic Kidney Disease: <60 mL/min/1.73sq m Kidney failure: <15 mL/min/1.73sq m eGFR calculated using average adult body mass. Additional eGFR calculator available at: http://www.[employer].TechTurn/multiple_crcl_2011.htm Glucose [Mass/Vol] 85 mg/dL 70 - 99 mg/dL [employer] [facility] Potassium [Moles/Vol] 4.5 mmol/L 3.7 - 5.3 mmol/L [facility] Sodium [Moles/Vol] 138 mmol/L 135 - 144 mmol/L [facility] Urea nitrogen (BldV) [Mass/Vol] 11 mg/dL 6 - 20 mg/dL [facility] [facility] CBCon 05-02-2021 Hematocrit (Bld) [Volume fraction] 41.0 % 36.3 - 47.1 % [facility] Hemoglobin.gastroin testinal spec 1 Ql (Stl) 12.9 g/dL 11.9 - 15.1 g/dL [facility] MCH (RBC) [Entitic mass] 26.9 pg 25.2 - 33.5 pg [facility] MCHC (RBC) [Mass/Vol] 31.5 g/dL 28.4 - 34.8 g/dL [facility] MCV (RBC) [Entitic vol] 85.6 fL 82.6 - 102.9 fL [facility] NRBC Automated 0.0 0.0 per 100 WBC [facility] [employer] Platelet distribution width (Bld) [Ratio] 13.7 % 11.8 - 14.4 % [facility] [employer] Platelet mean volume (Bld) [Entitic vol] 9.8 fL 8.1 - 13.5 fL [facility] [employer] Platelets (Bld) [#/Vol] 380 10*3/uL [facility] [employer] RBC (Bld) [#/Vol] 4.79 10*6/uL 3.95 - 5.1 1 m/uL [facility] [employer] WBC (Bld) [#/Vol] 11.2 10*3/uL [facility] No Panel Informationon 05-02 [employer] Protime-INRon 05-02-2021 INR Coag (Bld) [Relative time] 1.0 {INR} [facility] [employer] Comment on above: Therapeutic Range: Moderate Anticoagulant Intensity: INR = 2.0-3.0 High Anticoagulant Intensity: INR = 2.5-3.5 PT Coag (PPP) [Time] 10.6 s [facility] XR CHEST (2 VW)on 05-02-2021 No acute process. [facility] RIS CONSOLIDATED EXAMINATION: TWO XRAY VIEWS OF THE CHEST 05/02/2021 11:20 am COMPARISON: None. HISTORY: ORDERING SYSTEM PROVIDED HISTORY: preop, obesity TECHNOLOGIST PROVIDED HISTORY: preop, obesity FINDINGS: Heart is normal in size. Lungs are clear. No free air. [facility] RIS CONSOLIDATED Jose Juan Florez Jr. , DO - 05/02/2021 EXAMINATION: TWO XRAY VIEWS OF THE CHEST 05/02/2021 11:20 am COMPARISON: None. HISTORY: ORDERING SYSTEM PROVIDED HISTORY: preop, obesity TECHNOLOGIST PROVIDED HISTORY: preop, obesity FINDINGS: Heart is normal in size. Lungs are clear. No free air. IMPRESSION: No acute process. [facility] Phone: Radiology Study observation (narrative) [employer] Phone: XR CHEST (2 VW)Ordered By: Santos Florez on 05-02-2021 [employer] Phone: [id number] 12-05-2020 SARS-CoV-2 (COVID-19) RNA BECCA+probe Ql (Unsp spec) Normal [facility] Comment on above: Performed By: #### C OVID #### [facility] [employer] [address] [place] [address] Supervisor Waterworks: Anthony Aguilar MD [facility] [address] [place] [address] Supervisor Waterworks: Jameel Lawler MD SARS-CoV-2 (COVID-19) RNA BECCA+probe Ql (Unsp spec) Not detected Normal NOTDET [facility] Comment on above: Result Comment: The specimen is NEGATIVE for SARS-CoV-2, the novel coronavirus associated with COVID-19. A negative result does not rule out COVID-19. Lucrecia SARS-CoV-2 for use on the Lucre[employer] [place] is a real-time RT-PCR test intended [...] this assay. Fact sheet for Healthcare Providers: https://www.fda.gov/media/904535/download Fact sheet for Patients: https://www.fda.gov/media/006782/download METHODOLOGY: RT-PCR Performed By: #### C OVID #### [employer] [address] [place], [place] [id number] Supervisor Waterworks: Anthony Aguilar MD [facility] [address] [place] [address] Supervisor Waterworks: Jameel Lawler MD [id number] 12-04-2020 SARS-CoV-2 (COVID-19) RNA BECCA+probe Ql (Unsp spec) .NASOPHARYNGEAL SWAB Normal [facility] Comment on above: Performed By: #### C OVID #### [employer] [address] [place], [place] [id number] Supervisor Waterworks: Anthony Aguilar MD [facility] [address] [place] [address] Supervisor Waterworks: Jameel Lawler MD Vital Signs Date Time Vital Sign Value Performing Clinician Facility 03-19-2023 11:06-0500 Body mass index (BMI) [Ratio] 36.34 kg/m2 Eloise BURROUGHS Work Phone: [facility] 03-19-2023 11:06-0500 Body weight 105.23 kg Eloise BURROUGHS Work Phone: [facility] 03-19-2023 11:06-0500 Diastolic blood pressure 78 mm[Hg] Eloise BURROUGHS Work Phone: [facility] 03-19-2023 11:06-0500 Systolic blood pressure 124 mm[Hg] Eloise BURROUGHS Work Phone: [facility] 03-05-2023 10:48-0500 Body mass index (BMI) [Ratio] 35.08 kg/m2 Karoline Hopson MD Work Phone: [facility] 03-05-2023 10:48-0500 Body weight 101.61 kg Karoline Hopson MD Work Phone: [facility] 03-05-2023 10:48-0500 Diastolic blood pressure 75 mm[Hg] Karoline Hopson MD Work Phone: [facility] 03-05-2023 10:48-0500 Heart rate 89 /min [facility] 03-05-2023 10:48-0500 Systolic blood pressure 126 mm[Hg] [facility] 02-07-2023 13:34-0500 Body height 170.2 cm Tatiana Yap MD [facility] 02-07-2023 13:34-0500 Body mass index (BMI) [Ratio] 34.14 kg/m2 Tatiana Yap MD [facility] 02-07-2023 13:34-0500 Body weight 98.88 kg Tatiana Yap MD [facility] 02-07-2023 13:34-0500 Diastolic blood pressure 83 mm[Hg] Tatiana Yap MD [facility] 02-07-2023 13:34-0500 Heart rate 76 /min Tatiana Yap MD [facility] 02-07-2023 13:34-0500 Systolic blood pressure 126 mm[Hg] Tatiana Yap MD [facility] 10-12-2022 10:10-0400 Body height 170.18 cm Lilia Daugherty Other [employer] Other 10-12-2022 10:10-0400 Body mass index (BMI) [Ratio] 32.86 kg/m2 Lilia Daugherty Other [employer] Other 10-12-2022 10:10-0400 Body temperature 99 [degF] Lilia Daugherty Other [employer] Other 10-12-2022 10:10-0400 Body weight 95.17 kg Lilia Daugherty Other [employer] Other 10-12-2022 10:10-0400 Diastolic blood pressure 74 mm[Hg] Lilia Daugherty Other [employer] Other 10-12-2022 10:10-0400 SaO2% (BldA) [Mass fraction] 98 % Lilia Daugherty Other [employer] Other 10-12-2022 10:10-0400 Systolic blood pressure 118 mm[Hg] Lilia Daugherty Other [employer] Other 05-17-2021 15:52-0400 Body temperature 98.49 [degF] Patricia Mars [employer] Work Phone: [employer] 05-17-2021 15:52-0400 Diastolic blood pressure 97 mm[Hg] Patricia Mars [employer] Work Phone: [employer] 05-17-2021 15:52-0400 Heart rate 70 /min Patricia [employer] Work Phone: [employer] 05-17-2021 15:52-0400 Respiratory rate 18 /min Patricia Mars [employer] Work Phone: [facility] 05-17-2021 15:52-0400 SaO2% (BldA) [Mass fraction] 99 % Patricia Mars [employer] Work Phone: [facility] 05-17-2021 15:52-0400 Systolic blood pressure 138 mm[Hg] Patricia Mars [employer] Work Phone: [employer] 05-16-2021 06:06-0400 Body mass index (BMI) [Ratio] 43.16 kg/m2 Patricia Mars [employer] Work Phone: [facility] 05-16-2021 06:06-0400 Body weight 125 kg Patricia Mars [employer] Work Phone: [employer] 05-16-2021 05:57-0400 Body height 170.2 cm Patricia Mars DO Work Phone: [employer] 05-02-2021 10:35-0400 Body height 170.2 cm Stvz 1 [employer] 05-02-2021 10:35-0400 Body mass index (BMI) [Ratio] 44.95 kg/m2 Stvz 1 [facility] 05-02-2021 10:35-0400 Body temperature 97.2 [degF] Stvz 1 [facility] 05-02-2021 10:35-0400 Body weight 130.18 kg Stvz 1 [employer] 05-02-2021 10:35-0400 Diastolic blood pressure 85 mm[Hg] Stvz 1 [employer] 05-02-2021 10:35-0400 Heart rate 66 /min Stvz 1 [employer] 05-02-2021 10:35-0400 Respiratory rate 18 /min Stvz 1 [facility] 05-02-2021 10:35-0400 SaO2% (BldA) [Mass fraction] 99 % Stvz 1 [facility] 05-02-2021 10:35-0400 Systolic blood pressure 122 mm[Hg] Stvz 1 [employer] 12-04-2020 17:00-0400 Body height 170.18 cm Ale Ginty Other [employer] Other 12-04-2020 17:00-0400 Body mass index (BMI) [Ratio] 43.85 kg/m2 Ale Ginty Other [employer] Other 12-04-2020 17:00-0400 Body temperature 97.4 [degF] Ale Ginty Other [employer] Other 12-04-2020 17:00-0400 Body weight 127.01 kg Ale Ginty Other [employer] Other 12-04-2020 17:00-0400 SaO2% (BldA) [Mass fraction] 99 % Ale Harris Other [employer] Other Encounters Encounter Date Encounter Type Care [...] 04-09-2023 End: 04-10-2023 ambulatory NIGEL R ZACARIAS [facility] Start: 03-24-2023 Clinisync Result Encounter Nigel [...] Only Laila Castillo RN [facility] Comment on above: Hypertension affecti ng in second trimester (Primary Dx); Dichorionic diamniotic twin in second trimester Start: 03-05-2023 End: 03-05-2023 Office outpatient visit 15 minutes Karoline Hopson MD Work Phone: [facility] Comment on above: History of sleeve ga strectomy (Primary Dx); History of induced hypertension Start: 02-27-2023 Orders Only Sivan Martinez RN Ma tern[facility]- Medicine at [facility] Comment on above: Hypertension affecti ng in second trimester; 16 weeks gestation of ; Dichorionic diamniotic twin in second trimester Start: 02-26-2023 End: 02-26-2023 ambulatory NIGEL ZACARIAS Not Available Start: 02-24-2023 Telephone encounter Sangita Thomas RN [facility] [place] Start: 02-07-2023 End: 02-07-2023 ambulatory [facility] Start: 02-07-2023 End: 02-07-2023 Office consultation new/estab patient 60 min Tatiana Yap MD Work Phone: [facility] [place] Comment on above: Hypertension affecti ng in second trimester (Primary Dx); 16 weeks gestation of ; Dichorionic diamniotic twin in second trimester; H/O gastric sleeve Start: 02-05-2023 End: 02-05-2023 ambulatory NIGEL ZACARIAS Not Available Start: 02-05-2023 Chart abstracting Tatiana Yap MD Work Phone: [facility] [place] Start: 02-04-2023 End: 02-04-2023 ambulatory MARGOT G YAW Not Available Start: 01-15-2023 End: 01-15-2023 ambulatory NIGEL ZACARIAS Not Available Start: 01-07-2023 End: 01-07-2023 ambulatory MARGOT G YAW Not Available Start: 12-20-2022 End: 12-21-2022 ambulatory NIGEL ZACARIAS Not Available Start: 10-12-2022 End: 10-12-2022 ambulatory Lilia Daugherty Other [employer] Other Start: 10-12-2022 Office outpatient vi sit 15 minutes Lilia Daugherty [facility] [place] Start: 09-11-2022 End: 09-11-2022 ambulatory PATRICIA [facility] Start: 02-10-2022 End: 02-10-2022 ambulatory Ale Shields Other [facility] [employer] Other Start: 02-10-2022 Telephone encounter Ale Shields [facility] [address] Start: 02-08-2022 End: 02-08-2022 ambulatory Ale Kishor Shields Facility:[facility] Start: 02-08-2022 End: 02-08-2022 ambulatory FIELD AUDITOR Ale Shields Work Phone: [facility] Work Phone: Start: 02-08-2022 End: 02-08-2022 Departed Referred FIELD AUDITOR Ale Shields Work Phone: [facility] [place] Work Phone: Start: 01-08-2022 End: 01-09-[address] JAMEEL ABEBE Facility: Start: 12-31-2021 End: 01-01-[address] JAMEEL ABEBE Facility: Start: 11-28-2021 End: 11-28-2021 ambulatory None Provider Facility:[facility] Start: 11-28-2021 End: 11-29-2021 ambulatory [...] 09-06-2020 End: 09-07-2020 ambulatory [facility]EL [facility] Start: 09-06-2020 End: 09-06-2020 Subsequent hospital visit by physician [facility] Sleep Rm [address] [facility] Comment on above: LYNN (obstructive sle ep apnea) Start: 05-28-2017 End: 05-29-2017 Ambulatory Neo [facility] Facility:[id number] Procedures Date Procedure Procedure Detail Performing Clinician Start: 03-24-2023 [facility] UA (CLEAN/CATCH) INSTRUCTIONAL AIDE/MICRO IF IND. Nigel Zacarias DO Work Phone: [...] Start: 12-20-2022 TYPE AND SCREEN Nigel R Zacairas DO Work Phone: Start: 12-20-2022 ULTRASOUND OFFICE [...] Start: 05-02-2021 Assay of nicotine Sim Rucker [employer] Work Phone: Start: 05-02-2021 Basic metabolic pane [...] Adult BMI Screening Adult BMI Screen ing [employer] Start: 03-05-2024 Tobacco [facility]ening [facility] Start: 03-05-2024 End: 03-05-2024 US MFM with or without consult US MFM with or without consult Imaging Routine Hypertension affecting in second trimester Dichorionic diamniotic twin in second trimester Expected: 03/05/2024 (Approximate), Expires: 03/05/2024 [facility] Work Phone: Comment on above: Expected: 03/05/2024 (Approximate), Expires: 03/05/2024 Start: 02-08-2024 Adult BMI Screening [facility] Screen [facility] Start: 02-08-2024 Tobacco Screening Tobacco Screening [facility] Start: 01-04-2024 Adult BMI Screening Adult BMI Screen ing [facility] Start: 01-04-2024 Tobacco Screening Tobacco Screening [facility] Start: 08-11-2023 DTaP,Tdap and Td Vaccines (7 - Td or Tdap) DTaP,Tdap and Td Vaccines (7 - Td or Tdap) [facility] Start: 08-11-2023 DTaP/Tdap/Td vaccine (7 - Td or Tdap) DTaP/Tdap/Td vaccine (7 - Td or Tdap) [facility] Start: 08-10-2023 Influenza vaccination Influenza Vacc ine (#1) [facility] Comment on above: Postponed from 10/11 (Patient Refused) Start: 06-15-2023 Screening for malign ant neoplasm of cervix Pap Smear [facility] Start: 04-10-2023 End: 04-10-2023 Patient encounter procedure [facility] [place] Start: 03-19-2023 End: 03-19-2024 CBC panel - Blood by Automated count CBC Lab Routine Diabetes mellitus screening Expected: 03/19/2023 (Approximate), Expires: 03/19/2024 [facility] Work Phone: Comment on above: Expected: 03/19/2023 (Approximate), Expires: 03/19/2024 Start: 03-19-2023 End: 03-19-2024 Measurement of glucose 1 hour after glucose challenge for glucose tolerance test Glucose tolerance, 1 hour Lab Routine Diabetes mellitus screening Expected: 03/19/2023 (Approximate), Expires: 03/19/2024 [facility] Comment on above: Expected: 03/19/2023 (Approximate), Expires: 03/19/2024 Start: 03-05-2023 End: 03-05-2023 Patient encounter procedure 03/05/2023 11:30 AM EST Office Visit [facility] at [facility] [address] [place] [phone] Karoline Hopson MD [address] [place] [address] [facility] Start: 03-05-2023 End: 03-05-2023 Patient encounter procedure 03/05/2023 9:30 AM EST Appointment [facility] [address] [place] [phone] [facility] Start: 02-07-2023 End: 02-07-2023 Patient encounter procedure [facility] [place] Start: 10-11-2022 Influenza vaccination Influenza Vacc ine [facility] Start: 09-19-2022 Adult BMI Follow Up Plan Adult BMI Follow Up Plan [facility] Start: 02-08-2022 Bacteria identified in Urine by Culture Urine Culture [facility] Start: 01-08-2022 Hemoglobin A1c measurement A1C test (Diabetic or Prediabetic) [facility] Start: 10-11-2021 Influenza vaccination Flu vacc ine (Season Ended) [facility] Start: 07-14-2021 Hemoglobin A1c measurement A1C test (Diabetic or Prediabetic) [facility] Work Phone: Start: 06-18-2021 End: 06-18-2021 Patient encounter procedure 06/18/2021 Office Visit Bariatrics Deann Navarro, FIELD AUDITOR - GRANTS MANAGER [address] [place] [phone] [facility] Start: 05-24-2021 End: 05-24-2021 Patient encounter procedure 05/24/2021 Office Visit Patricia Islas DO [address] [place] [address] [facility] Min Invasive Bariatric Surg Start: 05-16-2021 End: 05-16-2021 Admission to same day surgery center 05/16/2021 Surgery IP Unit Patricia Mars DO [address] [address] [place] [address] XI ROBOTIC LAPAROSCOPIC GASTRECTOMY SLEEVE , LIVER BIOPSY, EGD- GI SCHEDULED [facility] Comment on above: XI ROBOTIC LAPAROSCO PIC GASTRECTOMY SLEEVE , LIVER BIOPSY, EGD- GI SCHEDULED Start: 05-16-2021 End: 05-16-2021 Laps gstrc rstrictiv px longitudinal gastrectomy GASTRECTOMY SLEEVE LAPAROSCOPIC ROBOTIC MORBID OBESITY, OBSTRUCTIVE SLEEP APNEA, GERD 05/16/2021 7:10 AM EDT [facility] Start: 05-16-2021 Subsequent hospital visit by physician 05/16/2021 Hospital Encounter IP Unit Patricia Mars DO [address] [facility] [address] [place] [address] [facility] Start: 05-13-2021 End: 05-13-2021 Patient encounter procedure 05/13/2021 Appointment Pre-Admission Testing [facility] PRE ADMIT Start: 05-10-2021 End: 05-10-2021 Patient encounter procedure 05/10/2021 Office Visit Bariatrics Patricia Mars DO [address] [facility] [address] [place] [address] [facility] Invasive Bariatric Surg Start: 11-22-2020 End: 11-22-2020 Nursing evaluation of patient and report 11/22/2020 Nurse Only Bariatrics [facility] Invasive Bariatric Surg Start: 11-06-2020 End: 11-06-2020 Patient encounter procedure [facility] Start: 11-03-2020 End: 11-03-2020 Patient encounter procedure 11/03/2020 Office Visit Bariatrics Deann Navarro, FIELD AUDITOR - GRANTS MANAGER [address] [facility] [address] [place] [phone] [facility] Start: 10-11-2020 Influenza vaccination Flu vaccine (# 1) [facility] Start: 09-28-2020 End: 09-28-2020 Patient encounter procedure 09/28/2020 Office Visit Bariatrics RamonDeann Kishor, FIELD AUDITOR - GRANTS MANAGER [address] [facility] [address] [place] [address] [facility] Start: 09-01-2015 Screening for malign ant neoplasm of cervix [facility] Start: 2009 HIV screening HIV screen [facility] Start: 2006 COVID-19 Vaccine (1) COVID-19 Vaccin e (1) [facility] [employer] Work Phone: Start: 2006 Depression Screen Depression Screen [facility] Start: 2006 [facility] [employer] Start: 2005 HPV vaccine (1 - 2-d ose series) HPV vaccine (1 - 2-dose series) [facility] Start: 2000 Pneumococcal 0-64 ye ars Vaccine (1 of 2 - PPSV23) Pneumococcal 0-64 years Vaccine (1 of 2 - PPSV23) [facility] [employer] Phone: Start: 09-01-1999 COVID-19 Vaccine (1) COVID-19 Vaccin e (1) [facility] Start: 09-01-1995 Varicella vaccine (1 of 2 - 2-dose childhood series) Varicella vaccine (1 of 2 - 2-dose childhood series) [facility] Start: 1994 [facility]atitis C [facility] End: 09-06-2020 Baseline Diagnostic Sleep Study Baseline Diagnostic Sleep Study Sleep Center Routine LYNN (obstructive sleep apnea) 1 Occurrences starting 09/06/2020 until 09/06/2020 [facility] [employer] Phone: Comment on above: 1 Occurrences starti ng 09/06/2020 until 09/06/2020 End: 02-08-2024 Calcium [Mass/volume] in Serum or Plasma Calcium Lab Routine 16 weeks gestation of H/O gastric sleeve 1 Occurrences starting 02/07/2023 until 02/08/2024 [employer] Comment on above: 1 Occurrences starti ng 02/07/2023 until 02/08/2024 End: 02-08-2024 CBC panel - Blood by Automated count CBC without diff Lab Routine Hypertension affecting in second trimester 16 weeks gestation of Dichorionic diamniotic twin in second trimester 1 Occurrences starting 02/07/2023 until 02/08/2024 [employer] Phone: Comment on above: 1 Occurrences starti ng 02/07/2023 until 02/08/2024 End: 02-08-2024 Comprehensive metabolic 2000 panel - Serum or Plasma Comprehensive metabolic panel Lab Routine Hypertension affecting in second trimester 16 weeks gestation of Dichorionic diamniotic twin in second trimester 1 Occurrences starting 02/07/2023 until 02/08/2024 [employer] Comment on above: 1 Occurrences starti ng 02/07/2023 until 02/08/2024 Continuous pulse oximetry Pulse oximetry, continuous Respiratory Care Routine Every 4hr until discontinued starting 05/16/2021 [employer] Phone: Comment on above: Every 4hr until disc ontinued starting 05/16/2021 End: 02-08-2024 Cyanocobalamin vitamin b-12 Vitamin B12 Lab Routine 16 weeks gestation of H/O gastric sleeve 1 Occurrences starting 02/07/2023 until 02/08/2024 [employer] Comment on above: 1 Occurrences starti ng 02/07/2023 until 02/08/2024 End: 02-08-2024 ECG 12 lead ECG 12 lead ECG Routine Hypertension affecting in second trimester 16 weeks gestation of Dichorionic diamniotic twin in second trimester 1 Occurrences starting 02/07/2023 until 02/08/2024 [facility] Comment on above: 1 Occurrences starti ng 02/07/2023 until 02/08/2024 End: 02-08-2024 Folate Folate Lab Routine 16 weeks gestation of H/O gastric sleeve 1 Occurrences starting 02/07/2023 until 02/08/2024 [employer] Comment on above: 1 Occurrences starti ng 02/07/2023 until 02/08/2024 End: 02-08-2024 Iron and TIBC Iron and TIBC Lab Routine 16 weeks gestation of H/O gastric sleeve 1 Occurrences starting 02/07/2023 until 02/08/2024 [facility]: 1 Occurrences starti ng 02/07/2023 until 02/08/2024 End: 02-08-2024 LDH LDH Lab Routine Hypertension affecting in second trimester 16 weeks gestation of Dichorionic diamniotic twin in second trimester 1 Occurrences starting 02/07/2023 until 02/08/2024 [facility] Comment [facility] above: 1 Occurrences starti ng 02/07/2023 until 02/08/2024 End: 02-08-2024 Natriuretic peptide B [Mass/volume] in Blood B-type natriuretic peptide Lab Routine Hypertension affecting in second trimester 16 weeks gestation of Dichorionic diamniotic twin in second trimester 1 Occurrences starting 02/07/2023 until 02/08/2024 [facility] Comment [facility] above: 1 Occurrences starti ng 02/07/2023 until 02/08/2024 Oxygen therapy [[facility] Data Set] Initiate Oxygen Therapy Protocol Respiratory Care Routine As Needed until discontinued starting 05/16/2021 [employer] Phone: Comment on above: As Needed until disc ontinued starting 05/16/2021 End: 02-08-2024 Protein creat ratio Protein creat ratio Lab Routine Hypertension affecting in second trimester 16 weeks gestation of Dichorionic diamniotic twin in second trimester 1 Occurrences starting 02/07/2023 until 02/08/2024 [facility] Comment [facility] above: 1 Occurrences starti ng 02/07/2023 until 02/08/2024 End: 02-08-2024 Protein, urine, 24 hour Protein, urine, 24 hour Lab Routine Hypertension affecting in second trimester 16 weeks gestation of Dichorionic diamniotic twin in second trimester 1 Occurrences starting 02/07/2023 until 02/08/2024 [employer] Comment on above: 1 Occurrences starti ng 02/07/2023 until 02/08/2024 Spirometry panel Incentive isiah metry Respiratory Care Routine Every 2hr while awake until discontinued starting 05/16/2021 [employer] Phone: Comment on above: Every 2hr while awak e until discontinued starting 05/16/2021 Surgical Pathology Surgical Path ology Lab Routine Release Upon Ordering for 1 Occurrences starting 05/16/2021 [facility] Work Phone: Comment on above: Release Upon Orderin g for 1 Occurrences starting 05/16/2021 End: 02-08-2024 Thiamin Vitamin B1, whole blood Thiamin Vitamin B1, whole blood Lab Routine 16 weeks gestation of H/O gastric sleeve 1 Occurrences starting 02/07/2023 until 02/08/2024 [facility] Comment on above: 1 Occurrences starti ng 02/07/2023 until 02/08/2024 End: 02-08-2024 Urate [Mass/volume] in Serum or Plasma Uric acid Lab Routine Hypertension affecting in second trimester 16 weeks gestation of Dichorionic diamniotic twin in second trimester 1 Occurrences starting 02/07/2023 until 02/08/2024 [facility] Comment on above: 1 Occurrences starti ng 02/07/2023 until 02/08/2024 End: 02-08-2024 Vitamin D 25 hydroxy Vitamin D 25 hydroxy Lab Routine 16 weeks gestation of H/O gastric sleeve 1 Occurrences starting 02/07/2023 until 02/08/2024 [facility] Comment on above: 1 Occurrences starti ng 02/07/2023 until 02/08/2024 Immunizations Immunization Date Immunization Notes Care Provider Jerry luther 11-12-2016 tuberculin skin test ; purified protein derivative solution, intradermal Tatiana Yap MD Work Phone: [facility] 08-10-2013 tetanus toxoid, redu yemi diphtheria toxoid, and acellular pertussis vaccine, adsorbed Tatiana Yap MD Work Phone: [facility] 10-03-1999 diphtheria, tetanus toxoids and acellular pertussis vaccine Tatiana Yap MD Work Phone: [facility] 10-03-1999 diphtheria, tetanus toxoids and acellular pertussis vaccine, unspecified formulation Eloise BURROUGHS Work Phone: [facility] 10-03-1999 hepatitis B vaccine, pediatric or pediatric/adolescent dosage Tatiana Yap MD Work Phone: [facility] 10-03-1999 measles, mumps and rubella virus vaccine Tatiana Yap MD Work Phone: [facility] 10-03-1999 poliovirus vaccine, inactivated Tatiana Yap MD Work Phone: [facility] 01-14-1996 diphtheria, tetanus toxoids and acellular pertussis vaccine Tatiana Yap MD Work Phone: [facility] 01-14-1996 diphtheria, tetanus toxoids and pertussis vaccine Eloise BURROUGHS Work Phone: [facility] 01-14-1996 haemophilus influenz ae type b vaccine, conjugate unspecified formulation Tatiana Yap MD Work Phone: [facility] 01-14-1996 measles, mumps and rubella virus vaccine Tatiana Yap MD Work Phone: [facility] 05-21-1995 diphtheria, tetanus toxoids and acellular pertussis vaccine Tatiana Yap MD Work Phone: [facility] 05-21-1995 DTP-Haemophilus influenzae type b conjugate vaccine Eloise BURROUGHS Work Phone: [facility] 05-21-1995 haemophilus influenz ae type b vaccine, conjugate unspecified formulation Tatiana Yap MD Work Phone: [facility] 05-21-1995 poliovirus vaccine, inactivated Tatiana Yap MD Work Phone: [facility] 05-21-1995 trivalent poliovirus vaccine, live, oral Eloise BURROUGHS Work Phone: [facility] 02-21-1995 diphtheria, tetanus toxoids and acellular pertussis vaccine Tatiana Yap MD Work Phone: [facility] 02-21-1995 DTP-Haemophilus influenzae type b conjugate vaccine Eloise BURROUGHS Work Phone: [facility] 02-21-1995 haemophilus influenz ae type b vaccine, conjugate unspecified formulation Tatiana Yap MD Work Phone: [facility] 02-21-1995 hepatitis B vaccine, pediatric or pediatric/adolescent dosage Tatiana Yap MD Work Phone: [facility] 02-21-1995 poliovirus vaccine, inactivated Tatiana Yap MD Work Phone: [facility] 02-21-1995 trivalent poliovirus vaccine, live, oral Eloise BURROUGHS Work Phone: [facility] 1994 diphtheria, tetanus toxoids and acellular pertussis vaccine Tatiana Yap MD Work Phone: [facility] 1994 DTP-Haemophilus influenzae type b conjugate vaccine Eloise BURROUGHS Work Phone: [facility] 1994 haemophilus influenz ae type b vaccine, conjugate unspecified formulation Tatiana Yap MD Work Phone: [facility] 1994 hepatitis B vaccine, pediatric or pediatric/adolescent dosage Tatiana Yap MD Work Phone: [facility] 1994 poliovirus vaccine, inactivated Tatiana Yap MD Work Phone: [facility] 1994 trivalent poliovirus vaccine, live, oral Eloise BURROUGHS Work Phone: [facility] 1994 hepatitis B vaccine, pediatric or pediatric/adolescent dosage Tatiana Yap MD Work Phone: [facility] Payers Date Payer Category Payer Medicaid [id number] 2022 Medicaid [id number] 2022 Self-pay 2019 Unknown [id number] [id number]. 7.3.113181.315 1994 Unknown [id number] 2.16.840.1.445648.3.579.2. 173 1994 Unknown [id number] 2.16.840.1.452829.3.579.2. 173 1994 Unknown [id number] 2.16.840.1.247747.3.579.2. 173 1994 Unknown [id number] 2.16.840.1.003729.3.579.2. 593 1994 Unknown [id number] 2.16.840.1.670063.3.579.2. 593 1994 Unknown [id number] 2.16.840.1.551675.3.579.2. 593 1994 Unknown [id number] 2.16.840.1.568592.3.579.2. 593 1994 Unknown [id number] 2.16.840.1.599843.3.579.2. 593 1994 Unknown [id number] 2.16.840.1.720240.3.579.2. 593 1994 Unknown [id number] 2.16.840.1.151441.3.579.2. 175 1994 Unknown [id number] 2.16.840.1.709906.3.579.2. 1286 1994 Unknown [id number] 2.16.840.1.499753.3.579.2. 128 1994 Unknown [id number] 2.16.840.1.344920.3.579.2. 128 1994 Unknown [id number] 2.16.840.1.605652.3.579.2. 128 1994 Unknown [id number] 2.16.840.1.224802.3.579.2. 128 1994 Unknown [id number] 2.16.840.1.069040.3.579.2. 1259 1994 Unknown [id number] 2.16.840.1.115231.3.579.2. 1259 1994 Unknown [id number] 2.16.840.1.491551.3.579.2. 1259 1994 Unknown [id number] 2.16.840.1.669776.3.579.2. 9 1994 Unknown [id number] 2.16.840.1.086483.3.579.2. 1258 1994 Unknown [id number] 2.16.840.1.905831.3.579.2. 1258 1994 Unknown [id number] 2.16.840.1.249943.3.579.2. 1258 1994 Unknown [id number] 2.16.840.1.323273.3.579.2. 1258 1994 Unknown [id number] 2.16.840.1.962349.3.579.2. 1258 1994 Unknown [id number] 2.16.840.1.653400.3.579.2. 1258 1994 Unknown [id number] 2.16.840.1.570704.3.579.2. 1258 1994 Unknown [id number] 2.16.840.1.289947.3.579.2. 1258 1994 Unknown [id number] 2.16.840.1.044818.3.579.2. 1259 1959 Private Health Insurance [id number] 1.2.840.796931.1.13.239.2. 7.3.995258.315 Private Health Insurance [facility] [id number] Unknown [id number] 2.16.840.1.322078.3.579.2. 531 Social History Date Type Detail Facility Start: 09-01-2020 End: 09-28-2020 Tobacco smoking status [facility] Current every day smoker [employer] Phone: Start: 09-01-2020 End: 07-03-2022 Cigarettes smoked current (pack per day) - Reported [facility] Start: 09-01-2020 End: 07-03-2022 Tobacco use and exposure Never used [employer] Phone: Start: 09-01-2020 End: 09-28-2020 Alcohol intake Current drinker of alcohol (finding) [employer] Phone: Start: 12-23-2019 Alcohol Comment weekly [employer] Phone: Start: 1995 Sex Assigned At Not on file [employer] Phone: Start: 04-22-2021 End: 05-16-2021 Exposure to SARS-CoV-2 (event) Not sure [employer] Exposure to SARS-CoV -2 (event) Yes [employer] Start: 01-19-2021 End: 07-03-2022 Tobacco smoking status IAIS Ex-smoker [employer] Start: 02-11-2008 End: 11-19-2020 History of tobacco use Current smoker [employer] Phone: Start: 05-02-2021 End: 02-26-2023 Alcohol intake Ex-drinker (finding) [employer] Phone: Start: 08-17-2018 End: 07-03-2022 Sex Assigned At [employer] Start: 1995 Sex Assigned At Female [facility] Start: 02-11-2008 End: 02-11-2020 History of tobacco use Cigarette Smoker [facility] [employer] [facility] History of tobacco use Tobacco U se Types Packs/Day Years Used Date Smoking Tobacco: Former Cigarettes Quit: 2020 Vaping/E-cigarettes Smokeless Tobacco: Former Quit: [facility]06/2020 [facility] Start: 02-05-2023 Tobacco use and exposure Former smokeless tobacco user [facility] End: 11-06-2020 History of tobacco use User of smokeless tobacco [facility] [employer] [facility] Frequency of Communication with Friends and Family More than three times a week [facility] Start: 08-17-2018 Education 12 [facility] Start: 05-18-2022 Alcohol Comment social, every other weekend [facility] Start: 10-31-2022 [facility] Within the last year , [...] of: HEIKE Meeks documented in this encounter [facility] 03-05-2023 History of Presen t illness Narrative Headache/epigastric pain/blurry vision/swelling? No Cramping/contractions? No Abnormal vaginal discharge? No Spotting or vaginal bleeding? No Loss of fluid like your water may have broken? No Recent ER visits or hospitalizations? Patient reports visit to [place] approximately two weeks ago to r/o ROM [...] you for allowing me to participate in [facility]. If there are any questions, please do not hesitate to call me. Sincerely, KAROLINE HOPSON MD documented in this encounter [facility] 02-24-2023 Miscellaneous Notes Incoming telephone call from patient with concerns of leakage of fluid. Patient called in and stated that she is Leaking clear fluid and has been. [employer] Tender asked if she had spoken to her OB provider and she said that she had, but they told her that she is basically too early to be leaking any fluid. [employer] T[employer] recommended patient present to the nearest emergency room to be evaluated. Patient verbalized understanding and had no further questions. documented in this encounter [facility] [employer] 02-24-2023 Telephone encounter Note Incoming telephone call from patient with concerns of leakage of fluid. Patient called in and stated that she is Leaking clear fluid and has been. [employer] T[employer] asked if she had spoken to her OB provider and she said that she had, but they told her that she is basically too early to be leaking any fluid. [employer] Tender recommended patient present to the nearest emergency room to be evaluated. Patient verbalized understanding and had no further questions. [facility] 02-07-2023 History of Presen t illness Narrative Headache/epigastric pain/blurry vision/swelling? Occasional headaches Cramping/contractions? No Abnormal vaginal discharge? No Spotting/vaginal bleeding? No Loss of fluid like your water may have broken? No Cats in the home? No Do you change the litter box? No Flu vaccine? No Genetic testing done this here or other office? Yes Have you been seen here at [facility] in a previous ? No Recent ER visits or hospitalizations? No Bring blood sugar log or meter with you today? (Please bring them with you for every visit at [facility]) N/A Traveled outside the country in [...] TESTS AND ULTRASOUND REPORTS: Referral records and [facility] chart were reviewed Pertinent Ultrasound [...] operators who are performing tests using either [employer] or [employer] systems and is limited to laboratories [...] repeat. Fact Sheet for Healthcare Providers: https://www.f da.gov/media/744212/download Fact Sheet for Patients: https://www.fda.gov/media/878219 /download HABITS: Patient activity no restrictions, diet [...] a but with an anticipation of excellent long term outcomes. In regards to the spontaneous processes, [...] previously recommended threshold of 160/110. Reference: PMID: 064608022021. Blood pressures do increase as progresses and [...] preeclampsia prevention as is recommended by the [place] [employer]ne[employer] Committee Opinion No. 743. [...] aspirin vs 10.3% no aspirin, p=0.45) (PMBID: [id number]). Given well-established benefits baby aspirin for the prevention of preeclampsia, I recommend initiating baby aspirin even in the setting of history of Joe-en-Y surgery. Micronutrient Dosing Recommendations: Calcium: recommend 1000-1200mg daily; if deficient, recommend 1800-86080 mg PO daily in divided doses Vitamin [...] sooner if clinically indicated Follow up in [facility] in 4 weeks for anatomy and clinic follow-up DISPOSITION: At this point the patient is in complete care of her mechanical car checker. Patient does have ultrasound and office visit [...] procedures Referring and communicating with other health urgent care physician assistant (not separately reported) Documenting clinical information in the electronic or other health record Tatiana Yap MD Maternal- Medicine [facility] [address] 1[address] [place] [address] [facility], the CDC, and other organizations representing maternal and public health professionals recommend that , , and lactating people and those considering receive the COVID-19 vaccination. Vaccination is the best method to reduce maternal and complications of SARS-CoV-2 infection. This document was created with [employer] technology. Though I make every effort to review the dictation as it is transcribed, on occasion the spoken word can be misinterpreted by the technology leading to inappropriate words, phrases, or sentences. This note is addressed to the requesting provider as a consultation for clinical guidance. Specific medical abbreviations are occasionally used and those are generally approved by the [place]?Board of?Obstetrics and?Gynecology?as well as?Maddison hodgson abbreviations. The above plan of care was based solely on the diagnoses for which a consultation was requested. ?More frequent testing may be indicated based on her other medical/obstetrical conditions. The management of other or medical conditions is beyond the scope of requested consultation and will continue to be followed by the primary mechanical car checker or primary care provider. Note to patient: [...] of the practitioner. documented in [facility] Evaluation note Encounter Date Diagnosis Assessment [...] take Sudafed and/or Mucinex for congestion. Take ones-jha-tpblw er Robitussin or Delsym for cough. Follow-up with your family physician if no improvement in 2 to 3 days. Off work tomorrow. Oct, Cough (ICD-10 - R05.9) Oct, Bronchitis (ICD-10 - J40) Acute bronchitis material was printed [employer] Other 10-19-2022 NotePatient Education Materials [facility]: [id number] History of Present illness Narrative* Payal Richardson [...] understanding [facility]: 1(155) 527-288404-07-2022 Hospital Discharge instructions* Instructions* Hannah Zavaleta RN - 05/17/2021 Discharge Instructions for Bariatric Surgery You had a Laparoscopic Sleeve Gastrectomy (82239) surgery to treat obesity. Recovery from this [...] scheduled appointment, please call the office at [phone]. Call Your Doctor If Any of the [...] sent through Care Everywhere. * Enoxaparin (Lovenox) (Mozambican) * Video: How to Give Yourself an Anticoagulant (Blood Thinner) Shot (Mozambican) documented in this [facility] [employer] Work Phone: [phone]) 388-655503-23-2022 Hospital Discharge instructions* Instructions* Kendal Wilhelm APRN - GRANTS MANAGER - 05/02/2021 Pre-operative Instructions NOTHING to [...] Day of Surgery/Procedure As a patient at [facility] you can expect quality medical and nursing care that is centered on your individual needs. Our goal is to make your surgical experience as comfortableas possible Directions to the Surgery Center The surgery Center at [facility] is located in the Emergency Room parking lot on [facility] or there is additional parking across the street. The address is [address] [place] [address]. Please check in at the Surgery Center [...] on the day of surgery please contact [phone] or [phone] If you have any other questions regarding your procedure/surgery please call your surgeon's office. documented in this [facility] Phone: 1(398) 579-559803-23-2022 History of Present illness Narrative* Eloise Chi [...] syndrome) Under care of team 05/02/2021 pcp-Dr MelgozaDqhjzc-[id number] visit april 2021 Patient was evaluated in PAT & anesthesia guidelines were applied. NPO guidelines, medication instructions and scheduled arrival time were reviewed with patient. Anesthesia contacted: no Medical or cardiac clearance ordered: no, medical clearance obtained. LAURA Garcia CNP 05/02/21 11:53 AM documented in this [facility] Work Phone: 1(333) 404-119310-25-2021 Evaluation note* Encounter Date Diagnosis Assessment Notes Treatment Notes Treatment Clinical Notes Nov, Contact with and (suspected) exposure to other viral communicable diseases (ICD-10 - Z20.828) Nov, Viral URI with cough (ICD-10 - J06.9) No COVID test completed at this time. Advised patient that will tx as viral URI. Supportive care as directed, increase fluids and rest, Tylenol/Motrin as directed, rx of Sigel and Flonase as directed, cool mist humidifier, [...] care instructions given in writting by [facility] Care At Home document [place] [employer] Other Evaluation note* Diagnosis LYNN (obstructive sleep apnea) Obstructive sleep apnea (adult) (pediatric) documented in this encounter [employer] Phone: evaluation note* Diagnosis S/P laparoscopic sleeve gastrectomy- Primary Post-op pain Other acute postoperative pain documented in this encounter [employer] Phone: evaluation noteNo assessment information available [facility] Work Phone: Evaluation noteNo InformationNort [employer] Other Evaluation note* Diagnosis Hypertension affecting in second trimester- Primary 16 weeks gestation of Dichorionic diamniotic twin in second trimester H/O gastric sleeve documented in this encounter [facility] [employer] SystemEvaluation note* Diagnosis Hypertension affecting in second trimester 16 weeks gestation of Dichorionic diamniotic twin in second trimester documented in this encounter [facility] [employer] System[employer] note* Diagnosis Hypertension affecting in second trimester- Primary Dichorionic diamniotic twin in second trimester documented in this encounter [facility] [employer] System[facility] note* Diagnosis History of sleeve gastrectomy- Primary History of induced hypertension documented in this encounter [facility] [employer] System[facility] note* Diagnosis Second trimester state, incidental Diabetes mellitus screening Screening for diabetes mellitus documented in this [facility] N[facility] - Reported* Type Description Date Medical History METABOLIC SYNDROME Medical History SYNCOPE Medical History anxiety Surgical History WISDOM TEETH Surgical History TONSILECTOMY Surgical History ENDOSCOPY AND COLONSCOPY Surgical History C section Hospitalization History see above [employer] Other Hisajqd general Narrative - Reported* Type Description Date Medical History METABOLIC SYNDROME Medical History SYNCOPE Medical History anxiety Surgical History WISDOM TEETH Surgical History TONSILECTOMY Surgical History ENDOSCOPY AND COLONSCOPY Surgical History C section Surgical History gastric sleeve Hospitalization History see above [employer] Other Hiskctz general Narrative - Reported* Type Description Date Medical History METABOLIC SYNDROME Medical History SYNCOPE Medical History anxiety Surgical History WISDOM TEETH Surgical History TONSILECTOMY Surgical History ENDOSCOPY AND COLONSCOPY Surgical History C section Surgical History gastric sleeve Surgical History cholcystectomy 09/10/2022 Hospitalization History see above [employer] Other InstructionsNot on filedocumented in this encounter [facility] filedocumented in this [facility] on filedocumented in this encounter [facility] on filedocumented in this encounter [facility] SystemInstructionsNot on filedocumented in this encounter [facility] [employer] SystemReason for visit Narrative* Auth/Cert Specialty Diagnoses / Procedures Referred By Cristal t Referred To Contact Diagnoses Morbid obesity (HCC) Obstructive sleep apnea GERD (gastroesophageal reflux disease) MORBID OBESITY, OBSTRUCTIVE SLEEP APNEA, GERD Procedures SD LAP, JAY RESTRICT PROC, LONGITUDINAL GASTRECTOMY XI ROBOTIC LAPAROSCOPIC GASTRECTOMY SLEEVE , LIVER BIOPSY, EGD- GI SCHEDULED Patricia Mars, [address] [place] [address] [employer] [address] [place] [address] Referral ID Status Reason Start Date Expiration Date Visits Re quested Visits Authorized [id number] 1 1 [employer] Phone: Summary Purpose Family History No Family [...] By Contact Referred To Contact [facility] Diagnoses LYNN (obstructive sleep apnea) Procedures Baseline Diagnostic Sleep Study Ike Moreno MD [address] [address] Specialty Diagnoses / Procedures Referred By Contac t Referred To Contact Diagnoses Hypertension affecting in second trimester 16 weeks gestation of Dichorionic diamniotic twin in second trimester Procedures ECG 12 lead Tatiana Yap MD [address] [place] [id number] Referral ID Status Reason Start Date Expiration Date V isits Requested Visits Authorized [id number] Pending Review 02/07/2023 02/07/2024 1 1 Specialty Diagnoses / Procedures Referred By Contac t Referred To Contact Maternal and Medicine Diagnoses Hypertension affecting in second trimester Dichorionic diamniotic twin in second trimester Procedures MFM with or without consult Karoline Hopson MD [address] [place] [address] [facility] Maternal Med [address] [place] [address] Referral ID Status Reason Start Date Expiration Date V isits Requested Visits Authorized [id number] Pending Review 03/05/2023 03/04/2024 1 1 Chief Complaint and Reason for Visit Chief Complaint Dysuria Additional Source Comments INFORMATION SOURCE (unrecogn ized section and content) DATE CREATED AUTHOR 07/31/[address] [facility] DATE CREATED AUTHOR AUTHOR'S ORGANIZ ATION 05/21/2021 [facility] DATE CREATED AUTHOR AUTHOR'S ORGANIZ ATION 12/03/2021 [facility] DATE CREATED AUTHOR AUTHOR'S ORGANIZ ATION 01/12/2022 [facility] DATE CREATED AUTHOR AUTHOR'S ORGANIZ ATION 02/11/2022 [facility] DATE CREATED AUTHOR AUTHOR'S ORGANIZ ATION 09/13/2022 [facility] DATE CREATED AUTHOR AUTHOR'S ORGANIZ ATION 02/09/2023 [facility] DATE CREATED AUTHOR AUTHOR'S ORGANIZ ATION 04/12/2023 [facility] DATE CREATED AUTHOR AUTHOR'S ORGANIZ ATION 06/12/2023 [facility] Reason for Visit (unrecogniz ed section and content) Status Reason Specialty Diagnoses / Procedures Referred By Contact Referred To Contact [facility] Diagnoses LYNN (obstructive sleep apnea) Procedures Baseline Diagnostic Sleep Study Ike Moreno MD [address] [facility] [address] [place] [address] Status Reason Specialty Diagnoses / Procedures Referre d By Contact Referred To Contact Diagnoses K21.9 GERD E66.9 OBESITY Procedures SD EGD TRANSORAL BIOPSY SINGLE/MULTIPLE EGD BIOPSY Patricia Mars DO [address] [facility] [address] [place] [address] [facility] Reason Comments twin HX C/S HX gastric sleeve HX PTD Reason Comments Dichorionic Diamniotic Twin Hypertension Reason Comments Routine Visit Care Teams (unrecognized sec tion and content) Property [employer] Casualty Insurance Agent Relationship Specialty Start Date End Date Stephane Martin MD [address] [place] [address] PCP - General 05/17/20 Property [employer] Casualty Insurance Agent Relationship Specialty Start Date End Date Stephane Martin MD [address] [place] [address] PCP - General 05/17/20 Team Status: Inactive Member Role Status Dates Ale Shields APRN Attending Provider Active Property [employer] Casual[employer] Insurance Agent Relationship Specialty Start Date End Date Margot Toure DO [address] [facility] [place] [address] PCP - General Family Medicine 01/03/23 Property [employer] Casualty Insurance Agent Relationship Specialty Start Date End Date Margot Toure DO [address] [place] [address] PCP - General Family Medicine 01/03/23 Property [employer] Casualty Insurance Agent Relationship Specialty Start Date End Date Margot Toure DO [address] [place] [address] PCP - General Family Medicine 01/03/23 Property [employer] Casualty Insurance Agent Relationship Specialty Start Date End Date Margot Toure DO [address] [facility] [place] [address] PCP - General Family Medicine 01/03/23 Property [employer] Casualty Insurance Agent Relationship Specialty Start Date End Date Margot Toure DO [address] [facility] [place] [address] PCP - General Family Medicine 01/03/23 Property [employer] Casualty Insurance Agent Relationship Specialty Start Date End Date Margot Toure DO [address] [facility] [place] [address] PCP - General Family Medicine 01/03/23 Property [employer] Casualty Insurance Agent Relationship Specialty Start Date End Date Margot Toure DO [address] [facility] [place] [address] PCP - General Family Medicine 07/01/22 [employer] Casual[employer] Insurance Agent Relationship Specialty Start Date End Date Margot Toure DO [address] [place] [address] PCP - General Family Medicine 07/01/22 Ordered [...] (Given - Provider: Sharmin Sam APRN - NUTRITION SERVICES MANAGER) ceFAZolin (ANCEF) 3000 mg in sterile water [...] (NoRateChange - Provider: Sharmin Sam APRN - NUTRITION SERVICES MANAGER)0856 (Anesthesia Volume Adjustment - Provider: Sharmin Sam APRN - NUTRITION SERVICES MANAGER) 1631 (Stopped - Provider: Hannah Zavaleta RN) [...] to back table, 1000 ml. for suction supervisor extrusion) sodium chloride flush 0.9 % injection 5-40 [...] BE BASED ON THE PRIMARY CLINICAL RECORDS. [employer] provides no warranty or guarantee of the accuracy or completeness of information in this document.
[2023-06-19 08:17] VITALS: BP 104/73; PULSE 96
== END 2023-06-19 08:45 | disposition home or self-care (01) ==
LOC: FBCO 07:25 → FBC 08:02
PROVIDERS: Visit Provider Obstetrics & Gynecology
DX: O30.043 Twin pregnancy, dichorionic/diamniotic, third trimester (principal)
CPT/HCPCS: 59025

== ENCOUNTER 2023-06-20 15:22 | Observation (INO) | payer MEDICAID, SELFPAY ==
[2023-06-20 15:41] VITALS: BP 133/81; PULSE 92
[2023-06-20 16:10] LABS: Bilirubin Urine NEGATIVE (NEGATIVE); Blood Urine TRACE-I (NEGATIVE); Clarity Urine CLEAR (CLEAR); Color Urine LT. YELLOW (YELLOW); Glucose Urine UA NEGATIVE (NEGATIVE); Ketones Urine NEGATIVE (NEGATIVE); Leukocyte Esterase Urine NEGATIVE (NEGATIVE); Nitrite Urine NEGATIVE (NEGATIVE); Protein Urine NEGATIVE (NEG/TRACE); Urobilinogen Urine 0.2 EU/dL (0.2-1.0)
[2023-06-20 16:24] LABS: Urine Microscopic Indicated YES
[2023-06-20 16:28] LABS: RBC Urine 0-2 #/HPF (0-2)
[2023-06-20 16:29] LABS: Bacteria Urine SMALL #/HPF (NONE SEEN); Crystals Seen? Seen #/HPF (None Seen); Mucus Urine NONE SEEN (NONE SEEN); Squamous Epithelial Cell Urine FEW #/LPF (NONE/RARE); Transitional Epi Cells Urine FEW #/LPF (NONE SEEN)
[2023-06-20 16:32] LABS: Calcium Oxalate Crystals Urine RARE; Calcium Phosphate Crystals Ur RARE; Cast Seen? NONE SEEN #/LPF (NONE SEEN); Urine Culture Indicated YES
[2023-06-20] MEDS: ACETAMINOPHEN 500 MG TABLET 1000 MG PO (17:09)
--- NOTE | 2023-06-20 18:35 | PC.NURSE ---
174- Reviewed discharge instructions with patient, placed abdominal binder on patient and educated on use. Pt. describes pain as continued pelvic shooting down right side, states has had similar sciatica pain in the past . Support given, and instructed patient to call or return if pain changes or worsens, verbalizes understanding. 1745- Pt. discharged home via wheelchair in stable condition.
== END 2023-06-20 18:17 | disposition home or self-care (01) ==
PROVIDERS: Admitting Provider Obstetrics & Gynecology; Visit Provider Obstetrics & Gynecology
DX: O26.893 Other specified pregnancy related conditions, third trimester (principal); R10.2 Pelvic and perineal pain; O34.211 Maternal care for low transverse scar from previous cesarean delivery; Z3A.35 35 weeks gestation of pregnancy; O30.003 Twin pregnancy, unspecified number of placenta and unspecified number of amniotic sacs, third trimester
CPT/HCPCS: 59025; 81001; 87086; G0378; G0379

== ENCOUNTER 2023-06-23 07:20 | Outpatient (OUT) | payer MEDICAID, SELFPAY ==
--- NOTE | 2023-06-23 19:05 | US_ITS ---
[address] [address] Patient Name: JADEN VELÁSQUEZ MRN: [facility]:[id number] date: 1995 Sex: F Assigned Patient Location: [facility] Current Patient Location: Accession/Order Number: [id number] Exam Date: 06/23/2023 19:10 Report Date: 06/24/2023 07:31 At the request of: ODILON ARNETT Procedure: US OB BPP w non-stress EXAMINATION: US OB BPP w non-stress, US OB >= 14 wk fetus add gest HISTORY: DICHORIONIC DIAMNIOTIC TWIN O30.043 COMPARISON: No relevant comparison available. TECHNIQUE: Ultrasound biophysical profile was performed in the radiology department. BREATHING MOVEMENTS: 2.0 GROSS BODY MOVEMENTS: 2.0 TONE: 2.0 QUALITATIVE AMNIOTIC FLUID VOLUME: 2.0 PRESENTATION: Baby 1: Breech. Baby 2: Transverse HEART RATE: Baby 1: 142 bpm. Baby 2: 162 bpm AMNIOTIC FLUID (LARGEST POCKET): Baby 1: 5.8 x 4.4 cm. Baby 2: 5.1 x 5.9 cm GESTATIONAL AGE: 35 weeks 4 days CONCLUSION: 1. Total biophysical profile score baby 1: 8.0. 2. Total biophysical profile score baby 2: 8.0 Electronically authenticated by: COURTNEY LUGO Date: 06/24/2023 07:31
--- NOTE | 2023-06-23 19:06 | US_ITS ---
[address] [address] Patient Name: JADEN VELÁSQUEZ MRN: [facility]:[id number] date: 1995 Sex: F Assigned Patient Location: [facility] Current Patient Location: Accession/Order Number: [id number] Exam Date: 06/23/2023 19:10 Report Date: 06/24/2023 07:31 At the request of: ODILON ARNETT Procedure: US OB >= 14 wk fetus add gest EXAMINATION: US OB BPP w non-stress, US OB >= 14 wk fetus add gest HISTORY: DICHORIONIC DIAMNIOTIC TWIN O30.043 COMPARISON: No relevant comparison available. TECHNIQUE: Ultrasound biophysical profile was performed in the radiology department. BREATHING MOVEMENTS: 2.0 GROSS BODY MOVEMENTS: 2.0 TONE: 2.0 QUALITATIVE AMNIOTIC FLUID VOLUME: 2.0 PRESENTATION: Baby 1: Breech. Baby 2: Transverse HEART RATE: Baby 1: 142 bpm. Baby 2: 162 bpm AMNIOTIC FLUID (LARGEST POCKET): Baby 1: 5.8 x 4.4 cm. Baby 2: 5.1 x 5.9 cm GESTATIONAL AGE: 35 weeks 4 days CONCLUSION: 1. Total biophysical profile score baby 1: 8.0. 2. Total biophysical profile score baby 2: 8.0 Electronically authenticated by: COURTNEY LUGO Date: 06/24/2023 07:31
[2023-06-23 20:01] VITALS: BP 104/68; PULSE 83
== END 2023-06-23 21:35 | disposition home or self-care (01) ==
LOC: US 07:20 → FBC 18:58
PROVIDERS: Visit Provider Obstetrics & Gynecology
DX: O30.043 Twin pregnancy, dichorionic/diamniotic, third trimester (principal); Z3A.35 35 weeks gestation of pregnancy
CPT/HCPCS: 76810; 76818

== ENCOUNTER 2023-06-26 06:58 | Outpatient (OUT) | payer MEDICAID, SELFPAY ==
--- OUTSIDE RECORDS SUMMARY | 2023-06-26 07:02 | XMS_ITS | CCD ---
Author Organization [facility] Care Team Providers Care Residential Gas Heat Technician Name Role Phone Neo Anderson Unavailable Unavailable Monica Neo Unavailable Unavailable Jose Maria Ortega MD, [facility] Primary Care Provider DOC OKEEFE Referring Unavailable JOSE MARIA ORTEGA, STEPHANE Primary Care Unavailtina e DOC OKEEFE Referring Unavailable JOSE MARIA ORTEGA, [facility] Primary Care Unavailabl e IKE MORENO Referring Unavailable JOSE MARIA ORTEGA, [facility] Primary Care Unavailabl e Ale Harris [...] Unavailable Cornelius LAURA Ale Kishor Attending Provider [phone] Ale Shields Unavailable PATRICIA MARS Attending Unavailable [...] NIGEL Attending Unavailable ZACARIAS, NIGEL Attending Unavailable ALBERTO, ELOISE Attending Unavailable ZACARIAS, NIGEL Attending Unavailable ZACARIAS, NIGEL Attending Unavailable KIMMY MACHUCA Attending Unavailab le YAW, MARGOT G Attending Unavailable ZACARIAS, NIGEL Attending Unavailable YAW, MARGOT G Attending Unavailable ALBERTO, ELOISE Attending Unavailable ZACARIAS, NIGEL Attending Unavailable ALBERTO, ELOISE Attending Unavailable ZACARIAS, NIGEL Attending Unavailable Allergies Allergy Classification Reported Allergen(s) Allergy Type Date of Onset Reaction(s) Facility (11 sources) Ibuprofen; Translations: [IBUPROFEN] Drug Allergy 09-19-2021 [facility] Medications Current Medications Medication Drug Class(es) Dates [...] Start: 06-06-2020 take 1 tablet by tatiana three times daily busPIRone (BUSPAR) 10 MG [...] 30 mg oral tablet (1 source) Uncompetitive U-yfntis-P-aspartate Receptor Antagonist, Sigma-1 Agonist Start: 2020 take 1 tablet by mouth every eight hours [place] DMT 30-30 MG 1 tablet Orally every [...] Iron (2 sources) Iron Active lactobacillus acidophilus [id number] unt / pectin 100 mg oral tablet [...] extended release oral tablet (2 sources) Uncompetitive M-hrgjqa-Z-asparta te Receptor Antagonist, Sigma-1 Agonist Start: 01-14-2022 [...] Interpretation Reference Range Facility TB UA (CLEAN/CATCH) DEPARTMENTAL BUYER/LISA RO IF IND.on 03-24-2023 BILIRUBIN URINE Negative NEGATIVE [facility] thcare BLOOD URINE Negative NEGATIVE [facility] Clarity (U) CLEAR CLEAR [facility] Color (U) YELLOW YELLOW [facility] GLUCOSE URINE UA Negative NEGATIVE mg/dL [facility] Interpretation and review of laboratory results Abnormal [facility] Ketones Ql (U) TRACE Abnormal NEGATIVE mg/dL [facility]althcare Leukocyte esterase Test strip Ql (U) Negative NEGATIVE [facility] NITRITE URINE Negative NEGATIVE [facility] Health care pH (U) 6.0 [pH] 5.0 - 9.0 [facility] PROTEIN URINE TRACE NEG/TRACE mg/dL [facility] Healthcare SPECIFIC GRAVITY URINE >=1.030 Abnormal 1.005 - 1.025 [facility] URINE MICROSCOPIC INDICATED NO [facility] UROBILINOGEN URINE 0.2 EU/dL 0.2 - 1.0 EU/dL [facility] e Urinalysis macro (dipstick) panel (U)on 03-19-2023 Bilirubin, UA Negative Negative - 4(70) +++ mg/dL [facility] Blood, UA Negative Negative - 50 Krzysztof/mcL [facility] Clarity, UA Clear [facility] re Color, UA Yellow [facility] Glucose, [facility]A Negative Negative - 1999(110) ++++ mg/dL [facility] Interpretation and review of laboratory results Abnormal [facility] re Ketones, UA Negative Negative - 160(16) ++++ mg/dL [facility] Leukocytes, UA Negative Negative - 500+++ Mckayla/mcL [facility] Nitrite, UA Negative Negative - Positive [facility] pH, UA 6.0 5 - 9 [facility] e Protein, UA Positive Negative - 1999(20) ++++ mg/dL [facility] Spec Grav, UA 1.030 1 - 1.03 [facility] Urobilinogen, UA 0.2 0.2 - 12 mg/dL [facility] CBC without diffon External Hematocrit Hct 33.7 [facility] Comment on above: See attached External Hemoglobin 10.9 [facility] Comment on above: See attached External MCH 29.0 [facility] Comment on above: See attached External Mchc 32.3 [facility] Comment on above: See attached External Mcv 89.6 [facility] Comment on above: See attached External Mpv 9.7 [facility] Comment on above: See attached External Platelet Count 268 [facility] Comment on above: See attached External Rbc Count 3.76 [facility] Comment on above: See attached External Rdw 13.4 [facility] Comment on above: See attached External Wbc Count 9.5 [facility] Comment on above: See attached [facility] Urine protein creatinine rat ioon 02-27-2023 Protein/Creatinine (U) [Mass ratio] 0.10 mg/g [facility] Comment on above: see attached [facility] Ultrasound - Officeon 2022 Radiology Study observation (narrative) [facility] HIV 1&2 AB/AG Screen (P24 AG )on 12-20-2022 HIV 1&2 AB/AG Non-Reactive [facility] Hepatitis B surface antigeno n 12-20-2022 Hepatitis B Surface Antigen Negative [facility] No Panel Informationon 12-20 [facility] Rubella IGG immune statuson 12-20-2022 Rubella immune IgG 1.96 [facility] Syphilis Total(Unknown Syphi lis Status)on 12-20-2022 Syphilis Non-Reactive [facility] 2022 SEE SCANNED REPORt MANUAL LY TRANSCRIBED RESULTS [facility] COVID + FLU Quick Testingon 10-12-2022 SARS-CoV-2 (COVID-19) RNA BECCA+probe Ql (Unsp spec) negtaive [employer] [facility] [employer] Other COVID + FLU Quick Testing Negative [employer] [facility] [employer] Other Basic Metabolic Profon 09-11 Anion gap [Moles/Vol] 9 mmol/L Normal 9-17 [facility] Comment on above: Performed By: #### B FIFI CBC, PT #### [employer] [address] [place], [place] [id number] Office Administration: Anthony Aguilar MD Calcium [Mass/Vol] 8.8 mg/dL Normal 8.6-10.4 [facility] Comment on above: Performed By: #### B FIFI CBC, PT #### [employer] [address] [place] [address] Office Administration: Anthony Aguilar MD Chloride [Moles/Vol] 106 mmol/L Normal 98-107 [facility] Comment on above: Performed By: #### B FIFI CBC, PT #### [employer] [address] [place] [address] Office Administration: Anthony Aguilar MD CO2 [Moles/Vol] 23 mmol/L Normal 20-31 [facility] Comment on above: Performed By: #### B FIFI, CBC, PT #### [facility] [employer] [address] [place] [address] Office Administration: Anthony Aguilar MD Creatinine [Mass/Vol] 0.7 mg/dL Normal 0.5-0.9 [facility] Comment on above: Performed By: #### B FIFI, CBC, PT #### [facility] [employer] [address] [place] [address] Office Administration: Anthony Aguilar MD GFR/1.73 sq M.predicted among [...] By: #### B FIFI, CBC, PT #### [facility] [employer] [address] [place] [address] Office Administration: Anthony Aguilar MD Glucose [Mass/Vol] 79 mg/dL Normal 70-99 [facility] Comment on above: Performed By: #### B FIFI, CBC, PT #### [facility] [address] [place] [phone] Office Administration: Anthony Aguilar MD Potassium [Moles/Vol] 4.1 mmol/L Normal 3.7-5.3 [facility] Comment on above: Performed By: #### B FIFI, CBC, PT #### [facility] [place] [facility] [address] [place] [address] Office Administration: Anthony Aguilar MD Sodium [Moles/Vol] 138 mmol/L Normal 135-144 [facility] Comment on above: Performed By: #### B MP, CBC, PT #### [facility] [employer] [address] [place] [address] Office Administration: Anthony Aguilar MD Urea nitrogen [Mass/Vol] 11 mg/dL Normal 6-20 [facility] Comment on above: Performed By: #### B MP, CBC, PT #### [facility] [employer] [address] [place] [address] Office Administration: Anthony Aguilar MD CBCon 09-11-2022 Erythrocyte distribution width (RBC) [Ratio] 13.2 % Normal 11.8-14.4 [facility] Comment on above: Performed By: #### B MP, CBC, PT #### [facility] [employer] [address] [place] [address] Office Administration: Anthony Aguilar MD Hematocrit (Bld) [Volume fraction] 41.6 % Normal 36.3-47.1 [facility] Comment on above: Performed By: #### B FIFI, CBC, PT #### [facility] [employer] [address] [place] [address] Office Administration: Anthony Aguilar MD Hemoglobin (Bld) [Mass/Vol] 13.3 g/dL Normal 11.9-15.1 [facility] Comment on above: Performed By: #### B MP, CBC, PT #### [facility] [place] [facility] [address] [place] [address] Office Administration: Anthony Aguilar MD MCH (RBC) [Entitic mass] 28.3 pg Normal 25.2-33.5 [facility] Comment on above: Performed By: #### B FIFI, CBC, PT #### [facility] [place] [facility] [address] [place] [address] Office Administration: Anthony Aguilar MD MCHC (RBC) [Mass/Vol] 32.0 g/dL Normal 28.4-34.8 [facility] Comment on above: Performed By: #### B MP, CBC, PT #### [address] [address] Office Administration: Anthony Aguilar MD MCV (RBC) [Entitic vol] 88.5 fL Normal 82.6-102.9 [facility] Comment on above: Performed By: #### B MP, CBC, PT #### [facility] [employer] [address] [place] [address] Office Administration: Anthony Aguilar MD NRBC Automated 0.0 per 100 WBC Normal 0.0 [facility] Comment on above: Performed By: #### B MP, CBC, PT #### [address] [address] Office Administration: Anthony Aguilar MD Platelet mean volume (Bld) [Entitic vol] 9.7 fL Normal 8.1-13.5 [facility] Comment on above: Performed By: #### B MP, CBC, PT #### [address] [address] Office Administration: Anthony Aguilar MD Platelets (Bld) [#/Vol] 276 10*3/uL Normal 138-453 [facility] Comment on above: Performed By: #### B MP, CBC, PT #### [address] [address] Office Administration: Anthony Aguilar MD RBC (Bld) [#/Vol] 4.70 10*6/uL Normal 3.95-5.11 [facility] Comment on above: Performed By: #### B MP, CBC, PT #### [facility] [employer] [address] [place] [address] Office Administration: Anthony Aguilar MD WBC (Bld) [#/Vol] 7.4 10*3/uL Normal 3.5-11.3 [facility] Comment on above: Performed By: #### B MP, CBC, PT #### [employer] [facility] [place], [place] [phone] Office Administration: Anthony Aguilar MD PTon 09-11-2022 INR Coag (PPP) [Relative time] 1.0 {INR} Normal [facility] Comment on above: Result Comment: Therapeutic Range: Moderate Anticoagulant Intensity: INR = 2.0-3.0 High Anticoagulant Intensity: INR = 2.5-3.5 Performed By: #### B MP, CBC, PT #### [facility] [place] [facility] [address] [place] [address] [phone] Office Administration: Anthony Aguilar MD PT Coag (PPP) [Time] 12.9 s Normal 11.7-14.9 [facility] Comment on above: Performed By: #### B MP, CBC, PT #### [employer] [address] [place] [address] [phone] Office Administration: Anthony Aguilar MD Surgical Pathologyon 023 Surgical Pathology (NOTE) Path Number: [id number] -- Diagnosis -- GALLBLADDER, CHOLECYSTECTOMY: -CHRONIC CHOLECYSTITIS WITH CHOLESTEROLOSIS AND CHOLELITHIASIS. Jameel Lawler M.D. Electronically Signed Out 09/12/2022 Clinical Information Pre-op Diagnosis: GALLSTONES Operative Findings: GALLBLADDER Operation Performed: LAPAROSCOPIC CHOLECYSTECTOMY tm Source of Specimen A: GALLBLADDER Gross Description FINA CHUCKMACKENZIE, GALLBLADDER Received in formalin is a 7.5 [...] lesions or periductal lymph nodes are identified. Blast Hole Driller sections 1c. tm Microscopic Description Microscopic examination performed. Processing Lab: [address] [phone] Interpretation Performed at [address] [phone] SURGICAL PATHOLOGY CONSULTATION Patient Name: FINA WALKER [facility] Rec: [id number] [facility] [employer] [facility] ANATOMIC PATHOLOGY [address] [place] [phone] Normal [facility] Urine Cultureon 02-08-2022 Bacteria identified Cx Nom (U) Reason for Exam Dysuria Urine ORGANISM: Escherichia coli (O:ESCCOL) [place] Count >100,000 Aerobic LISA Charge (NMIC56) ---- [...] RESISTANT TO ALL B-LACTAM DRUGS. PERFORMED BY: [place] [address] PATHOLOGIST CLAIM INSPECTOR SAMIRA WEN M.D. [facility] Comment on above: Performed By: #### C UU #### [address] VC CONSULT FOLLOWUPon 2021 VC CONSULT FOLLOWUP Patient: FINA WALKER Exam Date: 01/08/2022 : 1995 Gender:F Ordering : DR JAMEEL ABEBE M.D. Admission #: [id number] Family : Order #: [id number] CLICK HERE TO VIEW EXAM RADIOLOGY REPORT [...] Hinton M.D. on 01/08/2022 at 10:10 Normal [facility] VC EXT VENOUS RT LIMITEDon 1 03-10-2021 VC EXT VENOUS RT LIMITED Patient: FINA WALKER Exam Date: 01/08/2022 : 1995 Gender:F Ordering : DR JAMEEL ABEBE M.D. Admission #: [id number] Family : Order #: [id number] CLICK HERE TO VIEW EXAM RADIOLOGY REPORT [...] Hinton M.D. on 01/08/2022 at 10:05 Normal [facility] VC ENDOVENOUS ABL 1ST V RTon 12-31-2021 VC ENDOVENOUS ABL 1ST V RT Patient: FINA WALKER Exam Date: 12/31/2021 : 1995 Gender:F Ordering : DR JAMEEL ABEBE M.D. Admission #: [id number] Family : Order #: [id number] CLICK HERE TO VIEW EXAM RADIOLOGY REPORT [...] Abebe MD on 12/31/2021 at 11:06 Normal [facility] ED Clinical Summaryon 2021 ED Clinical Summary [facility] ? Urgent Care [address] [place] [address] Clinical Summary PERSON INFORMATION Name: VERNON WALKER Age: 26 Years Sex: FEMALE : 1995 MRN: Acct#: Visit Reason: OTTERBEIN PHYSICAL Arrival: 11/28/2021 10:39:56 Discharge: 11/28/2021 10:59:00 LOS: 000 00:20 Check In: 11/28/2021 10:39:56 Checkout: 11/28/2021 10:59:00 Address: [address] [place] [address] PCP: Provider, None PROVIDER INFORMATION VITALS INFORMATION Vital Sign Triage Latest Temperature Tympanic Temperature Temporal Artery Pulse Rate O2 Sat Respiratory Rate Blood Pressure / / MEDICAL INFORMATION Medications Given: Allergy Information: No known allergies PHYSICIAN DOCUMENTATION DISCHARGE INFORMATION: Discharge Disposition: Eloped Discharge Location: PATIENT EDUCATION INFORMATION Instructions: Follow-Up: DIAGNOSIS: Patient Understands: Comment: Normal [facility] ED Patient Summaryon 022 ED Patient Summary [facility] ? Urgent Care [address] [place] [address] PATIENT DISCHARGE INSTRUCTIONS Patient Information Name: VERNON WALKER Age: 26 Years Date of : 1995 Reason For Visit: OTTERBEIN PHYSICAL Arrival Time: 11/28/2021 10:39:56 Primary Care Physician: Provider, None Attending Physician: Nuno Bradshaw Comment: Patient Education Medication Information: The exam and treatment you received today in the [facility] Emergency Department were for an urgent problem and are not intended as complete care. It is important for you to follow up with a doctor, nurse practitioner, or physician?s event marketing assistant for ongoing care. If your symptoms [...] can reach you if necessary. [facility] Emergency Department has provided you with a complete list of medications post discharge. Please inform your delineator/provider of your visit and for further instruction [...] Disease Control and Prevention October 2013 Normal [facility] VC CONSULT FOLLOWUPon 2021 VC CONSULT FOLLOWUP Patient: FINA WALKER Exam Date: 11/28/2021 : 1995 Gender:F Ordering : DR JAMEEL ABEBE M.D. Admission #: [id number] Family : Order #: [id number] CLICK HERE TO VIEW EXAM RADIOLOGY REPORT [...] Hinton M.D. on 11/28/2021 at 10:04 Normal [facility] VC EXT VENOUS LT LIMITEDon 1 VC EXT VENOUS LT LIMITED Patient: FINA WALKER Exam Date: 11/28/2021 : 1995 Gender:F Ordering : DR JAMEEL ABEBE M.D. Admission #: [id number] Family : Order #: [id number] CLICK HERE TO VIEW EXAM RADIOLOGY REPORT [...] Hinton M.D. on 11/28/2021 at 09:45 Normal [facility] VC ENDOVENOUS ABL 1ST V LTon 11-22-2021 VC ENDOVENOUS ABL 1ST V LT Patient: FINA WALKER Exam Date: 11/22/2021 : 1995 Gender:F Ordering : DR JAMEEL ABEBE M.D. Admission #: [id number] Family : Order #: [id number] CLICK HERE TO VIEW EXAM RADIOLOGY REPORT PROCEDURE: VEIN CENTER ENDOVENOUS ABLATION FIRST VEIN LEFT GREAT SAPHENOUS VEIN COMPARISON: VC VENOUS REFLUX JOVANA LMT, 10/17/2021. INDICATIONS: Pain co-occurrent and due to varicose veins of bilateral legs I83.813 OPERATIVE REPORT: The risks and benefits of the procedure had been previously discussed, and were rediscussed at length. Informed written consent was obtained by ak and Christopher Zavala assisted. Time out procedure [...] Jameel Abebe MD on 11/22/2021 at 09:04 [facility] VC COMP CONSULTATIONon 10-17 VC COMP CONSULTATION Patient: FINA WALKER Exam Date: 10/17/2021 : 1995 Gender:F Ordering : DR JAMEEL ABEBE M.D. Admission #: [id number] Family : Order #: [id number] CLICK HERE TO VIEW EXAM RADIOLOGY REPORT [...] M.D. on 10/17/2021 at 12:46 Normal [facility] Basic Metabolic Panelon 04- Anion gap [Moles/Vol] 8 mmol/L Low 9 - 17 mmol/L [facility] Calcium [Mass/Vol] 8.6 mg/dL 8.6 - 10. 4 mg/dL [facility] Chloride [Moles/Vol] 106 mmol/L 98 - 107 mmol/L [facility] CO2 [Moles/Vol] 23 mmol/L 20 - 31 mmol/L [facility] Creatinine [Mass/Vol] 0.67 mg/dL 0.50 - 0.90 mg/dL [facility] GFR >60 >60 mL/min [facility] GFR Non- >60 >60 mL/min [facility] GFR/1.73 sq M.predicted MDRD (S/P/Bld) [Vol rate/Area] [facility] Comment on above: Average GFR for 20-2 9 years old: 116 mL/min/1.73sq m Chronic Kidney Disease: <60 mL/min/1.73sq m Kidney failure: <15 mL/min/1.73sq m eGFR calculated using average adult body mass. Additional eGFR calculator available at: http://www.Nexavis.Infakt.pl/multiple_crcl_2011.htm Glucose [Mass/Vol] 83 mg/dL 70 - 99 mg/dL [facility] [employer] Interpretation and review of laboratory results Abnormal [facility] Potassium [Moles/Vol] 3.9 mmol/L 3.7 - 5.3 mmol/L [facility] Sodium [Moles/Vol] 137 mmol/L 135 - 144 mmol/L [facility] Urea nitrogen (BldV) [Mass/Vol] 7 mg/dL 6 - 20 mg/dL [facility] CBCon 05-17-2021 Hematocrit (Bld) [Volume fraction] 34.4 % Low 36.3 - 47.1 % [facility] Hemoglobin.gastroin testinal spec 1 Ql (Stl) 11.0 g/dL Low 11.9 - 15.1 g/dL [facility] Interpretation and review of laboratory results Abnormal [facility] MCH (RBC) [Entitic mass] 27.2 pg 25.2 - 33.5 pg [facility] MCHC (RBC) [Mass/Vol] 32.0 g/dL 28.4 - 34.8 g/dL [facility] MCV (RBC) [Entitic vol] 85.1 fL 82.6 - 102.9 fL [facility] NRBC Automated 0.0 0.0 per 100 WBC [facility] Platelet distribution width (Bld) [Ratio] 14.1 % 11.8 - 14.4 % [facility] Platelet mean volume (Bld) [Entitic vol] 10.1 fL 8.1 - 13.5 fL [facility] Platelets (Bld) [#/Vol] 302 10*3/uL [facility] RBC (Bld) [#/Vol] 4.04 10*6/uL 3.95 - 5.1 1 m/uL [facility] WBC (Bld) [#/Vol] 13.7 10*3/uL High [facility] SURGICAL PATHOLOGY REPORTon 05-17-2021 Surgical [...] x 0.5 cm piece of adipose tissue. Blast Hole Driller sections 1cs. tm Microscopic Description 1 H&E reviewed. Microscopic examination performed. SURGICAL PATHOLOGY CONSULTATION Patient Name: FINA WALKER [facility] Rec: [id number] Path Number: [id number] [facility] [employer] [facility] ANATOMIC PATHOLOGY [address] [place] [address]. [place], [place] [address] [facility] Basic Metabolic Panelon Anion gap [Moles/Vol] 10 mmol/L 9 - 17 mmol/L [facility] Calcium [Mass/Vol] 8.7 mg/dL 8.6 - 10. 4 mg/dL [facility] Chloride [Moles/Vol] 105 mmol/L 98 - 107 mmol/L [facility] CO2 [Moles/Vol] 23 mmol/L 20 - 31 mmol/L [facility] Creatinine [Mass/Vol] 0.75 mg/dL 0.50 - 0.90 mg/dL [facility] GFR >60 >60 mL/min [employer] GFR Non- >60 >60 mL/min [facility] GFR/1.73 sq M.predicted MDRD (S/P/Bld) [Vol rate/Area] [facility] [employer] Comment on above: Average GFR for 20-2 9 years old: 116 mL/min/1.73sq m Chronic Kidney Disease: <60 mL/min/1.73sq m Kidney failure: <15 mL/min/1.73sq m eGFR calculated using average adult body mass. Additional eGFR calculator available at: http://www.WhoKnows/multiple_crcl_2012.htm Glucose [Mass/Vol] 132 mg/dL High 70 - 99 mg/dL [facility] [employer] Interpretation and review of laboratory results Abnormal [facility] Potassium [Moles/Vol] 3.5 mmol/L Low 3.7 - 5.3 mmol/L [facility] Sodium [Moles/Vol] 138 mmol/L 135 - 144 mmol/L [employer] Urea nitrogen (BldV) [Mass/Vol] 10 mg/dL 6 - 20 mg/dL [employer] [employer] CBC without Diffon 2 Hematocrit (Bld) [Volume fraction] 38.8 % 36.3 - 47.1 % [facility] Hemoglobin.gastroin testinal spec 1 Ql (Stl) 12.6 g/dL 11.9 - 15.1 g/dL [facility] Interpretation and review of laboratory results Abnormal [facility] MCH (RBC) [Entitic mass] 27.2 pg 25.2 - 33.5 pg [facility] MCHC (RBC) [Mass/Vol] 32.5 g/dL 28.4 - 34.8 g/dL [facility] MCV (RBC) [Entitic vol] 83.8 fL 82.6 - 102.9 fL [facility] NRBC Automated 0.0 0.0 per 100 WBC [facility] Platelet distribution width (Bld) [Ratio] 13.9 % 11.8 - 14.4 % [facility] Platelet mean volume (Bld) [Entitic vol] 9.8 fL 8.1 - 13.5 fL [facility] [facility] Platelets (Bld) [#/Vol] 340 10*3/uL [facility] RBC (Bld) [#/Vol] 4.63 10*6/uL 3.95 - 5.1 1 m/uL [facility] WBC (Bld) [#/Vol] 15.0 10*3/uL High [facility] POC Glucose Fingerstickon Glucose [Mass/Vol] 77 mg/dL 65 - 105 mg/dL [facility] POCT urine pregnancyon 05-16 Beta HCG ( test) Ql (U) Negative NEGATIVE [facility] Comment on above: Specimens with hCG l evels near the threshold of the test (25 mIU/mL) may give a negative or indeterminate result. In such cases, another test should be performed with a new specimen in 48-72 hours. If early is suspected clinically in this setting, correlation with quantitative serum b-hCG level is suggested. [facility] [id number] 05-15-2021 SARS-CoV-2 (COVID-19) RNA BECCA+probe Ql (Unsp spec) Normal [facility] Comment on above: Performed By: #### C OVID #### [facility] [employer] [address] [place] [address] Office Administration: Anthony Aguilar MD [facility] [address] [place] [address] Office Administration: Jameel Lawler MD SARS-CoV-2 (COVID-19) RNA BECCA+probe Ql (Unsp spec) Not detected Normal NOTDET [facility] Comment on above: Result Comment: The [...] this assay. Fact sheet for Healthcare Providers: https://www.fda.gov/media/027784/download Fact sheet for Patients: https://www.fda.gov/media/030103/download METHODOLOGY: RT-PCR Performed By: #### C OVID #### [address] [id number] Office Administration: Anthony Aguilar MD [facility] [address] [place] [address] [place] [address] Office Administration: Jameel Lawler MD [id number] 05-14-2021 SARS-CoV-2 (COVID-19) RNA BECCA+probe Ql (Unsp spec) .NASOPHARYNGEAL SWAB Normal [facility] Comment on above: Performed By: #### C OVID #### [address] [address] Office Administration: Anthony Aguilar MD [facility] [address] [place] [address] [place] [address] Office Administration: Jameel Lawler MD Nicotine, Bloodon 05-05-2021 5-YK-Khkooyei <2 ng/mL [facility] Cotinine <2 ng/mL [facility] Nicotine <2 ng/mL [facility] Comment on above: (NOTE) Consistent with abstinence [...] developed and its performance characteristics determined by [employer]. It has not been cleared or approved by the US Food and Drug Administration. This test was performed in a CLIA certified laboratory and is intended for clinical purposes. Performed By: [employer] [address] [place] [id number] Production Truck Driver: Yara Rodriguez MD [facility] EKG 12 LeadOrdered By: Diaz Conway on 05-03-2021 Atrial Rate 72 BPM [facility] Work Phone: P Chatom 45 degrees [employer] Phone: P-R Interval 142 ms [employer] Phone: Q-T Interval 376 ms [facility] Work Phone: QRS Duration 100 ms [facility] Work Phone: QTc Calculation (Bazett) 411 ms [employer] Phone: R Chat[place] 22 degrees [employer] Phone: T Chatom 32 degrees [facility] Work Phone: Ventricular Rate 72 BPM [employer] Work Phone: [employer] Phone: EKG 12 Leadon 05-03-2021 Normal sinus rhythm Normal ECG No previous ECGs available [facility] Diaz Elias MD - 05/03/2021 Normal sinus rhythm Normal ECG No previous ECGs available [facility] Work Phone: APTTon 05-02-2021 aPTT Coag (Bld) [Time] 25.0 s [facility] Comment on above: IV Heparin Therapy Range: 48.6-77.8 Basic Metabolic Panelon 04-11 Anion gap [Moles/Vol] 15 mmol/L 9 - 17 mmol/L [facility] Calcium [Mass/Vol] 9.8 mg/dL 8.6 - 10. 4 mg/dL [facility] Chloride [Moles/Vol] 102 mmol/L 98 - 107 mmol/L [facility] CO2 [Moles/Vol] 21 mmol/L 20 - 31 mmol/L [facility] Creatinine [Mass/Vol] 0.55 mg/dL 0.50 - 0.90 mg/dL [facility] GFR >60 >60 mL/min [facility] GFR Non- >60 >60 mL/min [facility] GFR/1.73 sq M.predicted MDRD (S/P/Bld) [Vol rate/Area] [facility] Comment on above: Average GFR for 20-2 9 years old: 116 mL/min/1.73sq m Chronic Kidney Disease: <60 mL/min/1.73sq m Kidney failure: <15 mL/min/1.73sq m eGFR calculated using average adult body mass. Additional eGFR calculator available at: http://www.Nexavis.Infakt.pl/multiple_crcl_2012.htm Glucose [Mass/Vol] 85 mg/dL 70 - 99 mg/dL [facility] [employer] Potassium [Moles/Vol] 4.5 mmol/L 3.7 - 5.3 mmol/L [facility] Sodium [Moles/Vol] 138 mmol/L 135 - 144 mmol/L [facility] Urea nitrogen (BldV) [Mass/Vol] 11 mg/dL 6 - 20 mg/dL [facility] CBCon 05-02-2021 Hematocrit (Bld) [Volume fraction] 41.0 % 36.3 - 47.1 % [facility] Hemoglobin.gastroin testinal spec 1 Ql (Stl) 12.9 g/dL 11.9 - 15.1 g/dL [facility] MCH (RBC) [Entitic mass] 26.9 pg 25.2 - 33.5 pg [facility] MCHC (RBC) [Mass/Vol] 31.5 g/dL 28.4 - 34.8 g/dL [facility] MCV (RBC) [Entitic vol] 85.6 fL 82.6 - 102.9 fL [facility] NRBC Automated 0.0 0.0 per 100 WBC [facility] [employer] Platelet distribution width (Bld) [Ratio] 13.7 % 11.8 - 14.4 % [facility] [employer] Platelet mean volume (Bld) [Entitic vol] 9.8 fL 8.1 - 13.5 fL [facility] [employer] Platelets (Bld) [#/Vol] 380 10*3/uL [facility] [employer] RBC (Bld) [#/Vol] 4.79 10*6/uL 3.95 - 5.1 1 m/uL [facility] [employer] WBC (Bld) [#/Vol] 11.2 10*3/uL [facility] No Panel Informationon 05-02 [employer] Protime-INRon 05-02-2021 INR Coag (Bld) [Relative time] 1.0 {INR} [facility] [employer] Comment on above: Therapeutic Range: Moderate Anticoagulant Intensity: INR = 2.0-3.0 High Anticoagulant Intensity: INR = 2.5-3.5 PT Coag (PPP) [Time] 10.6 s [facility] XR CHEST (2 VW)on 05-02-2021 No acute [...] No free air. IMPRESSION: No acute process. [employer] Phone: Radiology Study observation (narrative) [employer] Phone: XR CHEST (2 VW)Ordered By: Santos Florez on 05-02-2021 [employer] Phone: [id number] 12-05-2020 SARS-CoV-2 (COVID-19) RNA BECCA+probe Ql (Unsp spec) Normal [facility] Comment on above: Performed By: #### C OVID #### [facility] [employer] [address] [place] [address] Office Administration: Anthony Aguilar MD [facility] [address] [place] [address] Office Administration: Jameel Lawler MD SARS-CoV-2 (COVID-19) RNA BECCA+probe Ql (Unsp spec) Not detected Normal NOTDET [facility] Comment on above: Result Comment: The specimen is NEGATIVE for SARS-CoV-2, the novel coronavirus associated with COVID-19. A negative result does not rule out COVID-19. [employer] SARS-CoV-2 for use on the [employer] is a real-time RT-PCR test intended [...] this assay. Fact sheet for Healthcare Providers: https://www.fda.gov/media/717930/download Fact sheet for Patients: https://www.fda.gov/media/654876/download METHODOLOGY: RT-PCR Performed By: #### C OVID #### [employer] [address] [place], [place] [id number] Office Administration: Anthony Aguilar MD [facility] [address] [place] [address] [place] [address] Office Administration: Jameel Lawler MD [id number] 12-04-2020 SARS-CoV-2 (COVID-19) RNA BECCA+probe Ql (Unsp spec) .NASOPHARYNGEAL SWAB Normal [facility] Comment on above: Performed By: #### C OVID #### [employer] [address] [place], [place] [id number] Office Administration: Anthony Aguilar MD [facility] [address] [place] [address] [place] [address] Office Administration: Jameel Lawler MD Vital Signs Date Time Vital Sign Value Performing Clinician Facility 03-19-2023 11:06-0500 Body mass index (BMI) [Ratio] 36.34 kg/m2 Eloise BURROUGHS Work Phone: [facility] 03-19-2023 11:06-0500 Body weight 105.23 kg Eloise BURROUGHS Work Phone: [facility] 03-19-2023 11:06-0500 Diastolic blood pressure 78 mm[Hg] Eloise BURROUGHS Work Phone: [facility] 03-19-2023 11:06-0500 Systolic blood pressure 124 mm[Hg] Eloise BURROUGHS Work Phone: [facility] 03-05-2023 10:48-0500 Body mass index (BMI) [Ratio] 35.08 kg/m2 Karoline Hopson MD Work Phone: [facility] 03-05-2023 10:48-0500 Body weight 101.61 kg Karoline Hopson MD Work Phone: [facility] 03-05-2023 10:48-0500 Diastolic blood pressure 75 mm[Hg] Karoline Hopson MD Work Phone: [employer] 03-05-2023 10:48-0500 Heart rate 89 /min Karoline Hopson MD Work Phone: [employer] 03-05-2023 10:48-0500 Systolic blood pressure 126 mm[Hg] Karoline Hopson MD Work Phone: [employer] 02-07-2023 13:34-0500 Body height 170.2 cm Tatiana Yap MD Work Phone: [employer] 02-07-2023 13:34-0500 Body mass index (BMI) [Ratio] 34.14 kg/m2 Tatiana Yap MD Work Phone: [employer] 02-07-2023 13:34-0500 Body weight 98.88 kg Tatiana Yap MD Work Phone: [employer] 02-07-2023 13:34-0500 Diastolic blood pressure 83 mm[Hg] Tatiana Yap MD Work Phone: [employer] 02-07-2023 13:34-0500 Heart rate 76 /min Tatiana Yap MD Work Phone: [employer] 02-07-2023 13:34-0500 Systolic blood pressure 126 mm[Hg] Tatiana Yap MD Work Phone: [employer] 10-12-2022 10:10-0400 Body height 170.18 cm Lilia Daugherty Other [facility] Other 10-12-2022 10:10-0400 Body mass index (BMI) [Ratio] 32.86 kg/m2 Lilia Daugherty Other [facility] Other 10-12-2022 10:10-0400 Body temperature 99 [degF] Lilia Daugherty Other [facility] Other 10-12-2022 10:10-0400 Body weight 95.17 kg Lilia Daugherty Other [facility] Other 10-12-2022 10:10-0400 Diastolic blood pressure 74 mm[Hg] Lilia Daugherty Other [facility] Other 10-12-2022 10:10-0400 SaO2% (BldA) [Mass fraction] 98 % Lilia Daugherty Other [facility] Other 10-12-2022 10:10-0400 Systolic blood pressure 118 mm[Hg] Lilia Daugherty Other [facility] Other 05-17-2021 15:52-0400 Body temperature 98.49 [degF] Patricia Mars [employer] Work Phone: [facility] 05-17-2021 15:52-0400 Diastolic blood pressure 97 mm[Hg] Patricia Mars [employer] Work Phone: [facility] 05-17-2021 15:52-0400 Heart rate 70 /min Patricia Mars [employer] Work Phone: [facility] 05-17-2021 15:52-0400 Respiratory rate 18 /min Patricia Mars [employer] Work Phone: [facility] 05-17-2021 15:52-0400 SaO2% (BldA) [Mass fraction] 99 % Patricia Mars [employer] Work Phone: [facility] 05-17-2021 15:52-0400 Systolic blood pressure 138 mm[Hg] Patricia Mars [employer] Work Phone: [facility] 05-16-2021 06:06-0400 Body mass index (BMI) [Ratio] 43.16 kg/m2 Patricia Mars [employer] Work Phone: [facility] 05-16-2021 06:06-0400 Body weight 125 kg Patricia Mars [employer] Work Phone: [facility] 05-16-2021 05:57-0400 Body height 170.2 cm Patricia Mars DO Work Phone: [facility] 05-02-2021 10:35-0400 Body height 170.2 cm Stv[facility] 1 [facility] 05-02-2021 10:35-0400 Body mass index (BMI) [Ratio] 44.95 kg/m2 [facility] 1 [facility] 05-02-2021 10:35-0400 Body temperature 97.2 [degF] [facility] 1 [facility] 05-02-2021 10:35-0400 Body weight 130.18 kg [facility]vz 1 [facility] 05-02-2021 10:35-0400 Diastolic blood pressure 85 mm[Hg] [facility] 1 [facility] 05-02-2021 10:35-0400 Heart rate 66 /min [facility] 1 [facility] 05-02-2021 10:35-0400 Respiratory rate 18 /min [facility] 1 [facility] 05-02-2021 10:35-0400 SaO2% (BldA) [Mass fraction] 99 % [facility] 1 [facility] 05-02-2021 10:35-0400 Systolic blood pressure 122 mm[Hg] [facility] 1 [facility] 12-04-2020 17:00-0400 Body height 170.18 cm Ale Harris Other [facility] Other 12-04-2020 17:00-0400 Body mass index (BMI) [Ratio] 43.85 kg/m2 Ale Ginty Other [facility] Other 12-04-2020 17:00-0400 Body temperature 97.4 [degF] Ale Ginty Other [facility] Other 12-04-2020 17:00-0400 Body weight 127.01 kg Ale Ginty Other [facility] Other 12-04-2020 17:00-0400 SaO2% (BldA) [Mass fraction] 99 % Ale Harris Other [facility] Other Encounters Encounter Date Encounter Type Care Provider Facility Start: 06-19-2023 End: 06-19-2023 ambulatory NIGEL ZACARIAS Not Available Start: 06-11-2023 End: 06-11-2023 ambulatory ELOISE DOMINGUEZ Not Available Start: 05-28-2023 End: 05-28-2023 ambulatory NIGEL ZACARIAS Not Available Start: 05-15-2023 End: 05-15-2023 ambulatory ELOISE DOMINGUEZ Not Available Start: 05-13-2023 End: 05-14-2023 ambulatory KIMMY BLANCOZPATRICK Not Available Start: 05-01-2023 End: 05-01-2023 ambulatory NIGEL ZACARIAS Not Available Start: 04-10-2023 End: 04-10-2023 ambulatory NIGEL ZACARIAS Not Available Start: 04-09-2023 End: 04-10-[address] [facility] Start: 03-24-2023 Clinisync Result Encounter Nigel [...] Only Laila Castillo RN [facility] Comment on above: Hypertension affecti ng in second trimester (Primary Dx); Dichorionic diamniotic twin in second trimester Start: 03-05-2023 End: 03-05-2023 Office outpatient visit 15 minutes Karoline Hopson MD Work Phone: [facility] Comment on above: History of sleeve ga strectomy (Primary Dx); History of induced hypertension Start: 02-27-2023 Orders Only Sivan Martinez RN Ma tern[facility]- [facility] at [facility] Comment on above: Hypertension affecti ng in second trimester; 16 weeks gestation of ; Dichorionic diamniotic twin in second trimester Start: 02-26-2023 End: 02-26-2023 ambulatory NIGEL ZACARIAS Not Available Start: 02-24-2023 Telephone encounter Sangita Thomas RN [facility] Start: 02-07-2023 End: 02-07-2023 ambulatory TATIANA YAP [facility] Start: 02-07-2023 End: 02-07-2023 Office consultation new/estab patient 60 min Tatiana Yap MD Work Phone: [facility] Comment on above: Hypertension affecti ng in second trimester (Primary Dx); 16 weeks gestation of ; Dichorionic diamniotic twin in second trimester; H/O gastric sleeve Start: 02-05-2023 End: 02-05-2023 ambulatory NIGEL ZACARIAS Not Available Start: 02-05-2023 Chart abstracting Tatiana Yap MD Work Phone: [facility] Start: 02-04-2023 End: 02-04-2023 ambulatory MARGOT G YAW Not Available Start: 01-15-2023 End: 01-15-2023 ambulatory NIGEL ZACARIAS Not Available Start: 01-07-2023 End: 01-07-2023 ambulatory MARGOT G YAW Not Available Start: 12-20-2022 End: 12-21-2022 ambulatory NIGEL ZACARIAS Not Available Start: 10-12-2022 End: 10-12-2022 ambulatory Lilia Daugherty Other [facility] Other Start: 10-12-2022 Office outpatient vi sit 15 minutes Lilia Daugherty [facility] Start: 09-11-2022 End: 09-11-2022 ambulatory PATRICIA Ríos [facility] Start: 02-10-2022 End: 02-10-2022 ambulatory Ale Shields Other [facility] Other Start: 02-10-2022 Telephone encounter Ale DA SILVA [facility] [address] Start: 02-08-2022 End: 02-08-2022 ambulatory Ale Kishor Shields Facility:[facility] Start: 02-08-2022 End: 02-08-2022 ambulatory TRANSPORTATION PLANNING ENGINEER Ale Shields Work Phone: [facility] Work Phone: Start: 02-08-2022 End: 02-08-2022 Departed Referred TRANSPORTATION PLANNING ENGINEERLiliana Aguilera Shields Work Phone: [facility] [place] Work Phone: Start: 01-08-2022 End: 01-09-[address] JAMEEL ABEBE Facility:[facility] Start: 12-31-2021 End: 01-01-[address] JAMEEL ABEBE Facility:[facility] Start: 11-28-2021 End: 11-28-2021 ambulatory None Provider Facility:[facility] Start: 11-28-2021 End: 11-29-2021 ambulatory [...] Dx) Start: 05-14-2021 End: 05-19-2021 ambulatory CYN SARY [facility] Start: 05-02-2021 End: 05-06-2021 Subsequent hospital visit by physician [facility] Pat Rm 1 [facility] Pre-Admit Testing Start: 12-04-2020 End: 12-09-2020 ambulatory CYNBriseyda Ríos [facility] Start: 12-04-2020 Office outpatient vi sit 15 minutes Ale Latagabalfredo [facility] [place] Start: 10-20-2020 End: 10-20-2020 Subsequent hospital visit by physician Patricia Mars DO Work Phone: [facility] [place] Start: 09-06-2020 End: 09-07-2020 ambulatory IKE ANGEL Ríos [facility] Start: 09-06-2020 End: 09-06-2020 Subsequent hospital visit by physician [facility] Sleep Rm 1 [facility] Comment on above: LYNN (obstructive sle ep apnea) Start: 05-28-2017 End: 05-29-2017 Ambulatory Neo Anderson Facility:[id number] Procedures Date Procedure Procedure Detail Performing Clinician Start: 03-24-2023 [facility] UA (CLEAN/CATCH) DEPARTMENTAL BUYER/MICRO IF IND. Nigel Zacarias DO Work Phone: [...] test visual color cmprsn meths Patricia Mars [employer] Work Phone: Start: 05-02-2021 Assay of nicotine Sim Mars [employer] Work Phone: Start: 05-02-2021 Basic metabolic pane l calcium total Patricia Mars DO Work Phone: Start: 05-02-2021 Radiologic exam ches t 2 views Patricia Mars DO Work Phone: Start: 05-02-2021 Ecg routine ecg w/le ast 12 lds i&r only Patricia Mars [employer] Work Phone: Start: 06-14-2020 Microscopic observat ion [Identifier] in Cervix by Cyto stain Tatiana Yap MD Work Phone: Plan of Treatment Date Care Activity Detail Author Start: 03-05-2024 [facility] Start: 03-05-2024 Tobacco [facility]ening [facility] Start: 03-05-2024 End: 03-05-2024 US MFM with or without consult US MFM with or without consult Imaging Routine Hypertension affecting in second trimester Dichorionic diamniotic twin in second trimester Expected: 03/05/2024 (Approximate), Expires: 03/05/2024 [facility] Work Phone: Comment on above: Expected: 03/05/2024 (Approximate), Expires: 03/05/2024 Start: 02-08-2024 Adult BMI Screening Adult BMI Screen ing [facility] Start: 02-08-2024 Tobacco Screening Tobacco Screening [facility] Start: 01-04-2024 Adult BMI Screening Adult BMI Screen ing [facility] Start: 01-04-2024 Tobacco Screening Tobacco Screening [facility] Start: 08-11-2023 DTaP,Tdap and Td Vaccines (7 - Td or Tdap) DTaP,Tdap and Td Vaccines (7 - Td or Tdap) [facility] Start: 08-11-2023 DTaP/Tdap/Td vaccine (7 - Td or Tdap) DTaP/Tdap/Td vaccine (7 - Td or Tdap) [facility] Start: 08-10-2023 Influenza vaccination Influenza Vacc ine (#1) [facility] Comment on above: Postponed from 10/11 (Patient Refused) Start: 06-15-2023 Screening for malign ant neoplasm of cervix Pap Smear [facility] Start: 04-10-2023 End: 04-10-2023 Patient encounter procedure [facility] Start: 03-19-2023 End: 03-19-2024 CBC panel - Blood by Automated count CBC Lab Routine Diabetes mellitus screening Expected: 03/19/2023 (Approximate), Expires: 03/19/2024 [facility] Work Phone: Comment on above: Expected: 03/19/2023 (Approximate), Expires: 03/19/2024 Start: 03-19-2023 End: 03-19-2024 Measurement of glucose 1 hour after glucose challenge for glucose tolerance test Glucose tolerance, 1 hour Lab Routine Diabetes mellitus screening Expected: 03/19/2023 (Approximate), Expires: 03/19/2024 [facility] Comment on above: Expected: 03/19/2023 (Approximate), Expires: 03/19/2024 Start: 03-05-2023 End: 03-05-2023 Patient encounter procedure 03/05/2023 11:30 AM EST Office Visit [facility] [address] [place] [phone] Karoline Hopson MD [address] [place] [address] [facility] Start: 03-05-2023 End: 03-05-2023 Patient encounter procedure 03/05/2023 9:[address] [facility] [address] [place] [phone] [facility] Start: 02-07-2023 End: 02-07-2023 Patient encounter procedure [facility] Start: 10-11-2022 Influenza vaccination Influenza Vacc ine [facility] Start: 09-19-2022 Adult BMI Follow Up Plan Adult BMI Follow Up Plan [facility] Start: 02-08-2022 Bacteria identified in Urine by Culture Urine Culture [facility] Start: 01-08-2022 Hemoglobin A1c measurement A1C test (Diabetic or Prediabetic) [facility] Start: 10-11-2021 Influenza vaccination Flu vacc ine (Season Ended) [facility] Start: 07-14-2021 Hemoglobin A1c measurement A1C test (Diabetic or Prediabetic) [facility] Work Phone: Start: 06-18-2021 End: 06-18-2021 Patient encounter procedure 06/18/2021 Office Visit Bariatrics Deann Navarro, TRANSPORTATION PLANNING ENGINEER - ETCHER APPRENTICE [address] [place] [phone] [facility] Start: 05-24-2021 End: 05-24-2021 Patient encounter procedure 05/24/2021 Office Visit Patricia Islas DO [address] [place] [address] [facility] Invasive Bariatric Surg Start: 05-16-2021 End: 05-16-2021 Admission to same day surgery center 05/16/2021 Surgery IP Unit Patricia Mars DO [address] [place] [address] XI ROBOTIC LAPAROSCOPIC GASTRECTOMY SLEEVE , LIVER BIOPSY, EGD- GI SCHEDULED [facility] Comment on above: XI ROBOTIC LAPAROSCO PIC GASTRECTOMY SLEEVE , LIVER BIOPSY, EGD- GI SCHEDULED Start: 05-16-2021 End: 05-16-2021 Laps gstrc rstrictiv px longitudinal gastrectomy GASTRECTOMY SLEEVE LAPAROSCOPIC ROBOTIC MORBID OBESITY, OBSTRUCTIVE SLEEP APNEA, GERD 05/16/2021 7:10 AM EDT [facility] Start: 05-16-2021 Subsequent hospital visit by physician 05/16/2021 Hospital Encounter IP Unit Patricia Mars DO [address] [place] [address] [facility] Start: 05-13-2021 End: 05-13-2021 Patient encounter procedure 05/13/2021 Appointment Pre-Admission Testing [facility] PRE ADMIT Start: 05-10-2021 End: 05-10-2021 Patient encounter procedure 05/10/2021 Office Visit Patricia Islas DO [address] [place] [address] [facility] Invasive Bariatric Surg Start: 11-22-2020 End: 11-22-2020 Nursing evaluation of patient and report 11/22/2020 Nurse Only Bariatrics [facility] Min Invasive Bariatric Surg Start: 11-06-2020 End: 11-06-2020 Patient encounter procedure [facility] of [facility] Start: 11-03-2020 End: 11-03-2020 Patient encounter procedure 11/03/2020 Office Visit BariatricDeann Roca, TRANSPORTATION PLANNING ENGINEER - ETCHER APPRENTICE [address] [place] [phone] [facility] Start: 10-11-2020 Influenza vaccination Flu vaccine (# 1) [facility] Start: 09-28-2020 End: 09-28-2020 Patient encounter procedure 09/28/2020 Office Visit Bariatrics Deann Navarro, TRANSPORTATION PLANNING ENGINEER - ETCHER APPRENTICE [address] [place] [address] [facility] [facility] Start: 09-01-2015 Screening for malign ant neoplasm of cervix [facility] Start: 2009 HIV screening HIV screen [facility] Start: 2006 COVID-19 Vaccine (1) COVID-19 Vaccin e (1) [facility] Work Phone: Start: 2006 Depression Screen Depression Screen [facility] Start: 2006 Depression Screening Depression Scre [facility] Start: 2005 HPV vaccine (1 - 2-d ose series) HPV vaccine (1 - 2-dose series) [facility] Start: 2000 Pneumococcal 0-64 ye ars Vaccine (1 of 2 - PPSV23) Pneumococcal 0-64 years Vaccine (1 of 2 - PPSV23) [facility] Work Phone: Start: 09-01-1999 COVID-19 Vaccine (1) COVID-19 Vaccin e (1) [facility] Start: 09-01-1995 Varicella vaccine (1 of 2 - 2-dose childhood series) Varicella vaccine (1 of 2 - 2-dose childhood series) [facility] Start: 1994 Hepatitis C screening Hepatitis C sc reen [facility] End: 09-06-2020 Baseline Diagnostic Sleep Study Baseline Diagnostic Sleep Study Sleep Center Routine LYNN (obstructive sleep apnea) 1 Occurrences starting 09/06/2020 until 09/06/2020 [facility] [employer] Phone: Comment on above: 1 Occurrences starti ng 09/06/2020 until 09/06/2020 End: 02-08-2024 Calcium [Mass/volume] in Serum or Plasma Calcium Lab Routine 16 weeks gestation of H/O gastric sleeve 1 Occurrences starting 02/07/2023 until 02/08/2024 [facility]: 1 Occurrences starti ng 02/07/2023 until 02/08/2024 End: 02-08-2024 CBC panel - Blood by Automated count CBC without diff Lab Routine Hypertension affecting in second trimester 16 weeks gestation of Dichorionic diamniotic twin in second trimester 1 Occurrences starting 02/07/2023 until 02/08/2024 [facility] Work Phone: Comment on above: 1 Occurrences starti ng 02/07/2023 until 02/08/2024 End: 02-08-2024 Comprehensive metabolic 2000 panel - Serum or Plasma Comprehensive metabolic panel Lab Routine Hypertension affecting in second trimester 16 weeks gestation of Dichorionic diamniotic twin in second trimester 1 Occurrences starting 02/07/2023 until 02/08/2024 5 CUPS and some sugar Comment on above: 1 Occurrences starti ng 02/07/2023 until 02/08/2024 Continuous pulse oximetry Pulse oximetry, continuous Respiratory Care Routine Every 4hr until discontinued starting 05/16/2021 [employer] Phone: Comment on above: Every 4hr until disc ontinued starting 05/16/2021 End: 02-08-2024 Cyanocobalamin vitamin b-12 Vitamin B12 Lab Routine 16 weeks gestation of H/O gastric sleeve 1 Occurrences starting 02/07/2023 until 02/08/2024 [facility] Comment on above: 1 Occurrences starti ng 02/07/2023 until 02/08/2024 End: 02-08-2024 ECG 12 lead ECG 12 lead ECG Routine Hypertension affecting in second trimester 16 weeks gestation of Dichorionic diamniotic twin in second trimester 1 Occurrences starting 02/07/2023 until 02/08/2024 [facility] Comment on above: 1 Occurrences starti ng 02/07/2023 until 02/08/2024 End: 02-08-2024 Folate Folate Lab Routine 16 weeks gestation of H/O gastric sleeve 1 Occurrences starting 02/07/2023 until 02/08/2024 [facility] Comment on above: 1 Occurrences starti ng 02/07/2023 until 02/08/2024 End: 02-08-2024 Iron and TIBC Iron and TIBC Lab Routine 16 weeks gestation of H/O gastric sleeve 1 Occurrences starting 02/07/2023 until 02/08/2024 [facility] Comment on above: 1 Occurrences starti ng 02/07/2023 until 02/08/2024 End: 02-08-2024 LDH LDH Lab Routine Hypertension affecting in second trimester 16 weeks gestation of Dichorionic diamniotic twin in second trimester 1 Occurrences starting 02/07/2023 until 02/08/2024 [facility] Comment on above: 1 Occurrences starti ng 02/07/2023 until 02/08/2024 End: 02-08-2024 Natriuretic peptide B [Mass/volume] in Blood B-type natriuretic peptide Lab Routine Hypertension affecting in second trimester 16 weeks gestation of Dichorionic diamniotic twin in second trimester 1 Occurrences starting 02/07/2023 until 02/08/2024 [facility] Comment on above: 1 Occurrences starti ng 02/07/2023 until 02/08/2024 Oxygen therapy [[facility] Data Set] Initiate Oxygen Therapy Protocol Respiratory Care Routine As Needed until discontinued starting 05/16/2021 [employer] Phone: Comment on above: As Needed until disc ontinued starting 05/16/2021 End: 02-08-2024 Protein creat ratio Protein creat ratio Lab Routine Hypertension affecting in second trimester 16 weeks gestation of Dichorionic diamniotic twin in second trimester 1 Occurrences starting 02/07/2023 until 02/08/2024 5 CUPS and some sugar Comment on above: 1 Occurrences starti ng 02/07/2023 until 02/08/2024 End: 02-08-2024 Protein, urine, 24 hour Protein, urine, 24 hour Lab Routine Hypertension affecting in second trimester 16 weeks gestation of Dichorionic diamniotic twin in second trimester 1 Occurrences starting 02/07/2023 until 02/08/2024 5 CUPS and some sugar Comment on above: 1 Occurrences starti ng 02/07/2023 until 02/08/2024 Spirometry panel Incentive isiah metry Respiratory Care Routine Every 2hr while awake until discontinued starting 05/16/2021 [employer] Phone: Comment on above: Every 2hr while awak e until discontinued starting 05/16/2021 Surgical Pathology Surgical Path ology Lab Routine Release Upon Ordering for 1 Occurrences starting 05/16/2021 [facility] Work Phone: Comment on above: Release Upon Orderin g for 1 Occurrences starting 05/16/2021 End: 02-08-2024 Thiamin Vitamin B1, whole blood Thiamin Vitamin B1, whole blood Lab Routine 16 weeks gestation of H/O gastric sleeve 1 Occurrences starting 02/07/2023 until 02/08/2024 [facility] Comment on above: 1 Occurrences starti ng 02/07/2023 until 02/08/2024 End: 02-08-2024 Urate [Mass/volume] in Serum or Plasma Uric acid Lab Routine Hypertension affecting in second trimester 16 weeks gestation of Dichorionic diamniotic twin in second trimester 1 Occurrences starting 02/07/2023 until 02/08/2024 [facility] Comment on above: 1 Occurrences starti ng 02/07/2023 until 02/08/2024 End: 02-08-2024 Vitamin D 25 hydroxy Vitamin D 25 hydroxy Lab Routine 16 weeks gestation of H/O gastric sleeve 1 Occurrences starting 02/07/2023 until 02/08/2024 [facility] Comment on above: 1 Occurrences starti ng 02/07/2023 until 02/08/2024 Immunizations Immunization Date Immunization Notes Care Provider Jerry [facility] 11-12-2016 tuberculin skin test ; purified protein derivative solution, intradermal Tatiana Yap MD Work Phone: [facility] 08-10-2013 tetanus toxoid, redu yemi diphtheria toxoid, and acellular pertussis vaccine, adsorbed Tatiana Yap MD Work Phone: [facility] 10-03-1999 diphtheria, tetanus toxoids and acellular pertussis vaccine Tatiana Yap MD Work Phone: [facility] 10-03-1999 diphtheria, tetanus toxoids and acellular pertussis vaccine, unspecified formulation Eloise BURROUGHS Work Phone: [facility] 10-03-1999 hepatitis B vaccine, pediatric or pediatric/adolescent dosage Tatiana Yap MD Work Phone: [facility] 10-03-1999 measles, mumps and rubella virus vaccine Tatiana Yap MD Work Phone: [facility] 10-03-1999 poliovirus vaccine, inactivated Tatiana Yap MD Work Phone: [facility] 01-14-1996 diphtheria, tetanus toxoids and acellular pertussis vaccine Tatiana Yap MD Work Phone: [facility] 01-14-1996 diphtheria, tetanus toxoids and pertussis vaccine Eloise BURROUGHS Work Phone: [facility] 01-14-1996 haemophilus influenz ae type b vaccine, conjugate unspecified formulation Tatiana Yap MD Work Phone: [facility] 01-14-1996 measles, mumps and rubella virus vaccine Tatiana Yap MD Work Phone: [facility] 05-21-1995 diphtheria, tetanus toxoids and acellular pertussis vaccine Tatiana Yap MD Work Phone: [facility] 05-21-1995 DTP-Haemophilus influenzae type b conjugate vaccine Eloise BURROUGHS Work Phone: [facility] 05-21-1995 haemophilus influenz ae type b vaccine, conjugate unspecified formulation Tatiana Yap MD Work Phone: [facility] 05-21-1995 poliovirus vaccine, inactivated Tatiana Yap MD Work Phone: [facility] 05-21-1995 trivalent poliovirus vaccine, live, oral Eloise BURROUGHS Work Phone: [facility] 02-21-1995 diphtheria, tetanus toxoids and acellular pertussis vaccine Tatiana Yap MD Work Phone: [facility] 02-21-1995 DTP-Haemophilus influenzae type b conjugate vaccine Eloise BURROUGHS Work Phone: [facility] 02-21-1995 haemophilus influenz ae type b vaccine, conjugate unspecified formulation Tatiana Yap MD Work Phone: [facility] 02-21-1995 hepatitis B vaccine, pediatric or pediatric/adolescent dosage Tatiana Yap MD Work Phone: [facility] 02-21-1995 poliovirus vaccine, inactivated Tatiana Yap MD Work Phone: [facility] 02-21-1995 trivalent poliovirus vaccine, live, oral Eloise BURROUGHS Work Phone: [facility] 1994 diphtheria, tetanus toxoids and acellular pertussis vaccine Tatiana Yap MD Work Phone: [facility] 1994 DTP-Haemophilus influenzae type b conjugate vaccine Eloise BURROUGHS Work Phone: [facility] 1994 haemophilus influenz ae type b vaccine, conjugate unspecified formulation Tatiana Yap MD Work Phone: [facility] 1994 hepatitis B vaccine, pediatric or pediatric/adolescent dosage Tatiana Yap MD Work Phone: [facility] 1994 poliovirus vaccine, inactivated Tatiana Yap MD Work Phone: [facility] 1994 trivalent poliovirus vaccine, live, oral Eloise BURROUGHS Work Phone: [facility] 1994 hepatitis B vaccine, pediatric or pediatric/adolescent dosage Tatiana Yap MD Work Phone: [facility] Payers Date Payer Category Payer Medicaid [id number] 2022 Medicaid [id number] 2022 Self-pay 2019 Unknown [id number] [id number]. [id number] 1994 Unknown [id number] 2.16.840.1.864261.3.579.2. 173 1994 Unknown [id number] 2.16.840.1.017335.3.579.2. 173 1994 Unknown [id number] 2.16.840.1.863335.3.579.2. 173 1994 Unknown [id number] 2.16.840.1.205982.3.579.2. 593 1994 Unknown [id number] 2.16.840.1.909026.3.579.2. 593 1994 Unknown [id number] 2.16.840.1.784808.3.579.2. 593 1994 Unknown [id number] 2.16.840.1.261131.3.579.2. 593 1994 Unknown [id number] 2.16.840.1.082362.3.579.2. 593 1994 Unknown [id number] 2.16.840.1.841366.3.579.2. 593 1994 Unknown [id number] 2.16.840.1.858613.3.579.2. 175 1994 Unknown [id number] 2.16.840.1.223404.3.579.2. 1286 1994 Unknown [id number] 2.16.840.1.114836.3.579.2. 128 1994 Unknown [id number] 2.16.840.1.415559.3.579.2. 1286 1994 Unknown [id number] 2.16.840.1.783853.3.579.2. 1286 1994 Unknown [id number] 2.16.840.1.928975.3.579.2. 1286 1994 Unknown [id number] 2.16.840.1.334711.3.579.2. 1259 1994 Unknown [id number] 2.16.840.1.344800.3.579.2. 1259 1994 Unknown [id number] 2.16.840.1.347668.3.579.2. 1258 1994 Unknown [id number] 2.16.840.1.591854.3.579.2. 1258 1994 Unknown [id number] 2.16.840.1.310576.3.579.2. 1258 1994 Unknown [id number] 2.16.840.1.426718.3.579.2. 1258 1994 Unknown [id number] 2.16.840.1.967816.3.579.2. 1258 1994 Unknown [id number] 2.16.840.1.541453.3.579.2. 1258 1994 Unknown [id number] 2.16.840.1.629869.3.579.2. 1258 1994 Unknown [id number] 2.16.840.1.314235.3.579.2. 1258 1994 Unknown [id number] 2.16.840.1.731933.3.579.2. 1258 1994 Unknown [id number] 2.16.840.1.362249.3.579.2. 1258 1994 Unknown [id number] 2.16.840.1.592005.3.579.2. 1258 1994 Unknown [id number] 2.16.840.1.349574.3.579.2. 1259 1959 Private Health Insurance [id number] 1.2.840.274301.1.13.239.2. 7.3.576135.315 Private Health Insurance [facility] [id number] Unknown [id number] 2.16.840.1.192700.3.579.2. 531 Social History Date Type Detail Facility Start: 09-01-2020 End: 09-28-2020 Tobacco smoking status NYIS Current every day smoker [employer] Phone: Start: 09-01-2020 End: 05-24-2023 Cigarettes smoked current (pack per day) - Reported 5 CUPS and some sugar Start: 09-01-2020 End: 07-03-2022 Tobacco use and exposure Never used [employer] Phone: Start: 09-01-2020 End: 09-28-2020 Alcohol intake Current drinker of alcohol (finding) [employer] Phone: Start: 12-23-2019 Alcohol Comment weekly [employer] Phone: Start: 1994 Sex Assigned At Not on file [employer] Phone: Start: 04-22-2021 End: 05-16-2021 Exposure to SARS-CoV-2 (event) Not sure [facility] Exposure to SARS-CoV -2 (event) Yes [facility] Start: 01-19-2021 End: 07-03-2022 Tobacco smoking status NHIS Ex-smoker [facility] Start: 02-11-2008 End: 11-19-2020 History of tobacco use Current smoker [employer] Phone: Start: 05-02-2021 End: 02-26-2023 Alcohol intake Ex-drinker (finding) [employer] Phone: Start: 08-17-2018 End: 07-03-2022 Sex Assigned At 5 CUPS and some sugar Start: 1995 Sex Assigned At Female [facility] Start: 02-11-2008 End: 02-11-2020 History of tobacco use [facility] History of tobacco use Tobacco U se Types Packs/Day Years Used Date Smoking Tobacco: Former Cigarettes Quit: 2020 Vaping/E-cigarettes Smokeless Tobacco: Former Quit: 11/06/2020 [facility] Start: 02-05-2023 Tobacco use and exposure Former smokeless tobacco [facility] End: 11-06-2020 History of tobacco use User of smokeless tobacco [facility] [employer] Frequency of Communication with Friends and Family More than three times a week [facility] Start: 08-17-2018 Education 12 [facility] Start: 04-08-2023 Alcohol Comment social, every other weekend [facility] Start: 10-31-2022 [facility] Within the last year , have you [...] Comment caffeine: 1-2 cups per day coffee [facility] Clinical Notes 12-04-2020 to 03-19-2023 HEIKE [...] HEIKE Meeks documented in this encounter [facility] 03-05-2023 History of Presen t illness Narrative Headache/epigastric pain/blurry vision/swelling? No Cramping/contractions? No Abnormal vaginal discharge? No Spotting or vaginal bleeding? No Loss of fluid like your water may have broken? No Recent ER visits or hospitalizations? Patient reports visit to [place] approximately two weeks ago to r/o ROM [...] you for allowing me to participate in [facility]. If there are any questions, please do not hesitate to call me. Sincerely, KAROLINE HOPSON MD documented in this encounter [facility] 02-24-2023 Miscellaneous Notes Incoming telephone call from patient with concerns of leakage of fluid. Patient called in and stated that she is Leaking clear fluid and has been. Distribution Clerk asked if she had spoken to her OB provider and she said that she had, but they told her that she is basically too early to be leaking any fluid. Distribution Clerk recommended patient present to the nearest emergency room to be evaluated. Patient verbalized understanding and had no further questions. documented in this encounter [facility] 02-24-2023 Telephone encounter Note Incoming telephone call from patient with concerns of leakage of fluid. Patient called in and stated that she is Leaking clear fluid and has been. Distribution Clerk asked if she had spoken to her OB provider and she said that she had, but they told her that she is basically too early to be leaking any fluid. Distribution Clerk recommended patient present to the nearest emergency room to be evaluated. Patient verbalized understanding and had no further questions. [facility] [employer] [facility] 02-07-2023 History of Presen t illness Narrative Headache/epigastric pain/blurry vision/swelling? Occasional headaches Cramping/contractions? No Abnormal vaginal discharge? No Spotting/vaginal bleeding? No Loss of fluid like your water may have broken? No Cats in the home? No Do you change the litter box? No Flu vaccine? No Genetic testing done this here or other office? Yes Have you been seen here at [facility] in a previous ? No Recent ER visits or hospitalizations? No Bring blood sugar log or meter with you today? (Please bring them with you for every visit at [facility]) N/A Traveled outside the country in [...] pressures outside of as far back as 2016. Today, the patient is doing well. She [...] operators who are performing tests using either [employer] or [employer] systems and is limited to laboratories that [...] repeat. Fact Sheet for Healthcare Providers: https://www.f da.gov/media/133260/download Fact Sheet for Patients: https://www.fda.gov/media/009476 /download HABITS: Patient activity no restrictions, diet [...] a but with an anticipation of excellent fci outcomes. In regards to the spontaneous processes, [...] previously recommended threshold of 160/110. Reference: PMID: [id number]. Blood pressures do increase as progresses and [...] preeclampsia prevention as is recommended by the [place] Committee Opinion No. 743. [...] aspirin vs 10.3% no aspirin, p=0.45) (PMBID: [id number]). Given well-established benefits baby aspirin for the prevention of preeclampsia, I recommend initiating baby aspirin even in the setting of history of Joe-en-Y surgery. Micronutrient Dosing Recommendations: Calcium: recommend 1000-1200mg daily; if deficient, recommend 1800-89610 mg PO daily in divided doses Vitamin [...] sooner if clinically indicated Follow up in [facility] in 4 weeks for anatomy and clinic follow-up DISPOSITION: At this point the patient is in complete care of her mechanic recovery. Patient does have ultrasound and office visit [...] procedures Referring and communicating with other health residential care facility manager (not separately reported) Documenting clinical information in the electronic or other health record Tatiana Yap MD Maternal- Medicine [facility] [address] [place] [address] [facility], the CDC, and other organizations representing maternal and public health professionals recommend that , , and lactating people and those considering receive the COVID-19 vaccination. Vaccination is the best method to reduce maternal and complications of SARS-CoV-2 infection. This document was created with [employer] technology. Though I make every effort to review the dictation as it is transcribed, on occasion the spoken word can be misinterpreted by the technology leading to inappropriate words, phrases, or sentences. This note is addressed to the requesting provider as a consultation for clinical guidance. Specific medical abbreviations are occasionally used and those are generally approved by the [place]?Board of?Obstetrics and?Gynecology?as well as?Maddison hodgson abbreviations. The above plan of care was based solely on the diagnoses for which a consultation was requested. ?More frequent testing may be indicated based on her other medical/obstetrical conditions. The management of other or medical conditions is beyond the scope of requested consultation and will continue to be followed by the primary mechanic recovery or primary care provider. Note to patient: [...] of the practitioner. documented in this encounter [facility] [employer] 10-12-2022 Evaluation note Encounter Date Diagnosis Assessment [...] take Sudafed and/or Mucinex for congestion. Take jrmv-wem-mxyph er Robitussin or Delsym for cough. Follow-up with your family physician if no improvement in 2 to 3 days. Off work tomorrow. Oct, Cough (ICD-10 - R05.9) Oct, Bronchitis (ICD-10 - J40) Acute bronchitis material was printed [facility] Other 10-19-2022 NotePatient Education Materials [facility]s: [id number] History of Present illness Narrative* Payal Richardson [...] and patient voices understanding [facility] Phone: 1(248) 717-643404-07-2022 Hospital Discharge instructions* Instructions* Hannah Zavaleta RN - 05/17/2021 Discharge Instructions for Bariatric Surgery You had a Laparoscopic Sleeve Gastrectomy (41443) surgery to treat obesity. Recovery from this [...] scheduled appointment, please call the office at [phone]. Call Your Doctor If Any of the [...] sent through Care Everywhere. * Enoxaparin (Lovenox) (Swiss) * Video: How to Give Yourself an Anticoagulant (Blood Thinner) Shot (Swiss) documented in this [facility] Phone: 1(905) 384-617103-23-2022 Hospital Discharge instructions* Instructions* Kendal Wilhelm APRN [...] the Surgery Center The surgery Center at [facility] is located in the Emergency Room parking lot on [facility] or there is additional parking across the street. The address is [address] [place] [address]. Please check in at the Surgery Center [...] on the day of surgery please contact [phone] or [phone] If you have any other questions regarding your procedure/surgery please call your surgeon's office. documented in this [facility] Phone: [phone]) 453-719603-23-2022 History of Present illness Narrative* Eloise Chi [...] syndrome) Under care of team 05/02/2021 pcp-Dr MelgozaDxbxag-qxhqkwg-zeyw visit april 2021 Patient was evaluated in PAT & anesthesia guidelines were applied. NPO guidelines, medication instructions and scheduled arrival time were reviewed with patient. Anesthesia contacted: no Medical or cardiac clearance ordered: no, medical clearance obtained. LAURA Garcia CNP 05/02/21 11:53 AM [facility] Phone: [phone]) 524-729710-25-2021 Evaluation note* Encounter Date Diagnosis Assessment Notes Treatment Notes Treatment Clinical Notes Nov, Contact with and (suspected) exposure to other viral communicable diseases (ICD-10 - Z20.828) 25 Oct, 2021 Viral URI with cough (ICD-10 - J06.9) No COVID test completed at this time. Advised patient that will tx as viral URI. Supportive care as directed, increase fluids and rest, Tylenol/Motrin as directed, rx of [place] and Flonase as directed, cool mist humidifier, [...] care instructions given in writting by [facility] Care At Home document [facility] Other Evaluation note* Diagnosis LYNN (obstructive sleep apnea) Obstructive sleep apnea (adult) (pediatric) documented in this encounter [employer] Phone: evaluation note* Diagnosis S/P laparoscopic sleeve gastrectomy- Primary Post-op pain Other acute postoperative pain documented in this encounter [employer] Phone: evaluation noteNo assessment information available [facility] Work Phone: Evaluation noteNo InformationNort [employer] Other Evaluation note* Diagnosis Hypertension affecting in second trimester- Primary 16 weeks gestation of Dichorionic diamniotic twin in second trimester H/O gastric sleeve documented in this encounter [place] [facility] Diagnosis Hypertension affecting in second trimester 16 weeks gestation of Dichorionic diamniotic twin in second trimester documented [facility] Diagnosis Hypertension affecting in second trimester- Primary Dichorionic diamniotic twin in second trimester [facility] Diagnosis History of sleeve gastrectomy- Primary History of induced hypertension documented in this encounter [facility]* Diagnosis Second trimester state, incidental Diabetes mellitus screening Screening for diabetes mellitus documented [facility] - Reported* Type Description Date Medical History METABOLIC SYNDROME Medical History SYNCOPE Medical History anxiety Surgical History WISDOM TEETH Surgical History TONSILECTOMY Surgical History ENDOSCOPY AND COLONSCOPY Surgical History C section Hospitalization History see above [facility] Other Hisnjea general Narrative - Reported* Type Description Date Medical History METABOLIC SYNDROME Medical History SYNCOPE Medical History anxiety Surgical History WISDOM TEETH Surgical History TONSILECTOMY Surgical History ENDOSCOPY AND COLONSCOPY Surgical History C section Surgical History gastric sleeve Hospitalization History see above [facility] Other Hisicnf general Narrative - Reported* Type Description Date Medical History METABOLIC SYNDROME Medical History SYNCOPE Medical History anxiety Surgical History WISDOM TEETH Surgical History TONSILECTOMY Surgical History ENDOSCOPY AND COLONSCOPY Surgical History C section Surgical History gastric sleeve Surgical History cholcystectomy 09/10/2022 Hospitalization History see above [facility] Other InstructionsNot on filedocumented in this encounter [facility] filedocumented in [facility] filedocument[facility] in [facility] filedocument[facility] in [facility] System[facility] for [facility] Narrative* Auth/Cert Specialty Diagnoses / Procedures Referred By Cristal rosen Referred To Contact Diagnoses Morbid obesity (HCC) Obstructive sleep apnea GERD (gastroesophageal reflux disease) MORBID OBESITY, OBSTRUCTIVE SLEEP APNEA, GERD Procedures NM LAP, JAY RESTRICT PROC, LONGITUDINAL GASTRECTOMY XI ROBOTIC LAPAROSCOPIC GASTRECTOMY SLEEVE , LIVER BIOPSY, EGD- GI SCHEDULED Patricia Mars DO [address] [facility] [address] [place] [address] [facility] [address] [place] [address] Referral ID Status Reason Start Date Expiration Date Visits Re quested Visits Authorized [id number] 1 1 [employer] Phone: Summary Purpose Family History No [...] Procedures Referred By Contact Referred To Contact [facility] Diagnoses LYNN (obstructive sleep apnea) Procedures Baseline Diagnostic Sleep Study Ike Moreno MD [address] [address] Specialty Diagnoses / Procedures Referred By Contac t Referred To Contact Diagnoses Hypertension affecting in second trimester 16 weeks gestation of Dichorionic diamniotic twin in second trimester Procedures ECG 12 lead Tatiana Yap MD [address] [place] [address] Referral ID Status Reason Start Date Expiration Date V isits Requested Visits Authorized [id number] Pending Review 02/07/2023 02/07/2024 1 1 Specialty Diagnoses / Procedures Referred By Contac t Referred To Contact [facility] Diagnoses Hypertension affecting in second trimester Dichorionic diamniotic twin in second trimester Procedures US MFM with or without consult Karoline Hopson MD [address] [place] [address] [facility] [address] [place] [address] Referral ID Status Reason Start Date Expiration Date V isits Requested Visits Authorized [id number] Pending Review 03/05/2023 03/04/2024 1 1 Chief Complaint and Reason for Visit Chief Complaint Dysuria Additional Source Comments INFORMATION SOURCE (unrecogn ized section and content) DATE CREATED AUTHOR 07/31/2017 [facility] DATE CREATED AUTHOR AUTHOR'S ORGANIZ ATION 05/21/2021 [facility] DATE CREATED AUTHOR AUTHOR'S ORGANIZ ATION 12/03/2021 [facility] DATE CREATED AUTHOR AUTHOR'S ORGANIZ ATION 01/12/2022 [facility] DATE CREATED AUTHOR AUTHOR'S ORGANIZ ATION 02/11/2022 [facility] DATE CREATED AUTHOR AUTHOR'S ORGANIZ ATION 09/13/2022 [facility] DATE CREATED AUTHOR AUTHOR'S ORGANIZ ATION 02/09/2023 [facility] DATE CREATED AUTHOR AUTHOR'S ORGANIZ ATION 04/12/2023 [facility] DATE CREATED AUTHOR AUTHOR'S ORGANIZ ATION 06/21/2023 [facility] EPIC Reason for Visit (unrecogniz ed section and content) Status Reason Specialty Diagnoses / Procedures Referred By Contact Referred To Contact [facility] Diagnoses LYNN (obstructive sleep apnea) Procedures Baseline Diagnostic Sleep Study Ike Moreno MD [address] [facility] [address] [place] [address] Status Reason Specialty Diagnoses / Procedures Referre d By Contact Referred To Contact Diagnoses K21.9 GERD E66.9 OBESITY Procedures NM EGD TRANSORAL BIOPSY SINGLE/MULTIPLE EGD BIOPSY Patricia Mars DO [address] [facility] [address] [place] [address] [facility] Reason Comments twin HX C/S HX gastric sleeve HX PTD Reason Comments Dichorionic Diamniotic Twin Hypertension Reason Comments Routine Visit Care Teams (unrecognized sec tion and content) [employer] Relationship Specialty Start Date End Date Stephane Martin MD [address] [place] [address] PCP - General 05/17/20 [employer] Techn[employer] Relationship Specialty Start Date End Date Stephane Martin MD [address] [facility] [place] [address] PCP - General 05/17/20 Team Status: Inactive Member Role Status Sven Shields APRN Attending Provider Active [employer] Technician Relationship Specialty Start Date End Date Margot Toure DO [address] [facility] [place] [address] PCP - General Family Medicine 01/03/23 [employer]idential [employer] Heat Technician Relationship Specialty Start Date End Date Margot Toure DO [address] [facility] [place] [address] PCP - General Family Medicine 01/03/23 Residential [employer] Heat Technician Relationship Specialty Start Date End Date Margot Toure DO [address] [facility] [place] [address] PCP - General Family Medicine 01/03/23 Residential [employer] Heat Technician Relationship Specialty Start Date End Date Margot Toure DO [address] [facility] [place] [address] PCP - General Family Medicine 01/03/23 Residential Gas Heat Technician Relationship Specialty Start Date End Date Margot Toure DO [address] [facility] [place] [address] PCP - General Family Medicine 01/03/23 Residential Gas Heat Technician Relationship Specialty Start Date End Date Margot Toure DO [address] [facility] [place] [address] PCP - General Family Medicine 01/03/23 Residential [employer] Heat Technician Relationship Specialty Start Date End Date Margot Toure DO [address] [place] [address] PCP - General Family Medicine 07/01/22 Residential [employer] Heat Technician Relationship Specialty Start Date End Date Margot Toure DO [address] [place] [address] PCP - General Family Medicine 07/01/22 Ordered [...] (Given - Provider: Sharmin Sam APRN - TENTS ASSEMBLER) ceFAZolin (ANCEF) 3000 mg in sterile water [...] (NoRateChange - Provider: Sharmin Sam APRN - TENTS ASSEMBLER)0856 (Anesthesia Volume Adjustment - Provider: Sharmin Sam APRN - TENTS ASSEMBLER) 1631 (Stopped - Provider: Hannah Zavaleta RN) [...] to back table, 1000 ml. 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 [employer] [facility]. provides no warranty or guarantee of the accuracy or completeness of information in this document.
[2023-06-26 08:37] VITALS: BP 99/72; PULSE 85
== END 2023-06-26 08:40 | disposition home or self-care (01) ==
LOC: FBCO 06:58 → FBC 08:02
PROVIDERS: Visit Provider Obstetrics & Gynecology
DX: O30.043 Twin pregnancy, dichorionic/diamniotic, third trimester (principal)
CPT/HCPCS: 59025

== ENCOUNTER 2023-06-26 19:15 | Outpatient (REF) | payer MEDICAID, SELFPAY ==
--- OUTSIDE RECORDS SUMMARY | 2023-06-26 19:34 | XMS_ITS | CCD ---
Author Organization [facility] Care Team Providers Care Pattern Fitter Name Role Phone Neo Anderson Unavailable Unavailable Monica Neo Unavailable Unavailable Jose Maria Ortega MD, [facility] Primary Care Provider DOC OKEEFE Referring Unavailable JOSE MARIA ORTEGA, STEPHANE Primary Care Unavailtina e DOC OKEEFE Referring Unavailable JOSE MARIA ORTEGA, [facility] Primary Care Unavailabl e IKE MORENO Referring Unavailable JOSE MARIA ORTEGA, [facility] Primary Care Unavailabl e Ale Harris [...] JAMEEL Stern Attending Unavailable WEST, DR JAMEEL Stenr Attending Unavailable REQUEST, NONE LISTED Primary Care [...] Unavailable Cornelius LAURA Ale Kishor Attending Provider [phone] Ale Shields Unavailable PATRICIA MARS Attending Unavailable PATRICIA MARS Admitting Unavailable YAW, MARGOT Primary Care Unavailable Lilia Daugherty Unavailable Yaw DO, Margot G Primary Care Provider [phone] YAW, MARGOT G Referring Unavailable YAW, MARGOT G Primary Care Unavailable TATIANA YAP Attending Unavailable YAW, MARGOT G Referring Unavailable YAW, MARGOT G Primary Care Unavailable Yaw DO, Margot G Primary Care Provider [phone] ZACARIAS, NIGEL R Referring Unavailable YAW, MARGOT [...] sources) Ibuprofen; Translations: [IBUPROFEN] Drug Allergy 09-19-2021 [facility] Medications Current Medications Medication Drug Class(es) Dates [...] 30 mg oral tablet (1 source) Uncompetitive Y-vlclst-Y-aspartate Receptor Antagonist, Sigma-1 Agonist Start: 2020 take 1 tablet by mouth every eight hours [place] DMT 30-30 MG 1 tablet Orally every [...] Iron (2 sources) Iron Active lactobacillus acidophilus [id number] unt / pectin 100 mg oral tablet [...] extended release oral tablet (2 sources) Uncompetitive K-imvani-G-asparta te Receptor Antagonist, Sigma-1 Agonist Start: 01-14-2022 [...] Interpretation Reference Range Facility TB UA (CLEAN/CATCH) FACTORY SUPERVISOR/LISA RO IF IND.on 03-24-[address] NEGATIVE [facility]care BLOOD URINE Negative NEGATIVE [facility] Clarity (U) CLEAR CLEAR [facility] Color (U) YELLOW YELLOW [facility] GLUCOSE URINE UA Negative NEGATIVE mg/dL [facility] Interpretation and review of laboratory results Abnormal [facility] Ketones Ql (U) TRACE Abnormal NEGATIVE mg/dL [facility]care Leukocyte esterase Test strip Ql (U) Negative NEGATIVE [facility] NITRITE URINE Negative NEGATIVE [facility] Health care pH (U) 6.0 [pH] 5.0 - 9.0 [facility] PROTEIN URINE TRACE NEG/TRACE mg/dL [facility] Healthcare SPECIFIC GRAVITY URINE >=1.030 Abnormal 1.005 - 1.025 [facility] URINE MICROSCOPIC INDICATED NO [facility] UROBILINOGEN URINE 0.2 EU/dL 0.2 - 1.0 EU/dL [facility] Urinalysis macro (dipstick) panel (U)on 03-19-2023 Bilirubin, UA Negative Negative - 4(70) +++ mg/dL [facility] Blood, UA Negative Negative - 50 Krzysztof/mcL [facility] Clarity, UA Clear [facility] re Color, UA Yellow [facility] Glucose, UA Negative Negative - 1999(110) ++++ mg/dL [facility] Interpretation and review of laboratory results Abnormal [facility] re Ketones, UA Negative Negative - 160(16) ++++ mg/dL [facility] Leukocytes, UA Negative Negative - 500+++ Mckayla/mcL [facility] Nitrite, UA Negative Negative - Positive [facility] pH, UA 6.0 5 - 9 [facility] e Protein, UA Positive Negative - 1999(20) ++++ mg/dL [facility] Spec Grav, UA 1.030 1 - 1.03 [facility] Urobilinogen, UA 0.2 0.2 - 12 mg/dL [facility] e CBC without diffon External Hematocrit Hct 33.7 [facility] Comment on above: See attached External Hemoglobin 10.9 [facility] Comment on above: See attached External MCH 29.0 [facility] Comment on above: See attached External Mchc 32.3 [facility] Comment on above: See attached External Mcv 89.6 [facility] Comment on above: See attached External Mpv 9.7 [facility] Comment on above: See attached External Platelet Count 268 [facility] Comment on above: See attached External Rbc Count 3.76 [facility] Comment on above: See attached External Rdw 13.4 [facility] Comment on above: See attached External Wbc Count 9.5 [facility] Comment on above: See attached [facility] Urine protein creatinine rat ioon 02-27-2023 Protein/Creatinine (U) [Mass ratio] 0.10 mg/g [facility] Comment on above: see attached [facility] Ultrasound - Officeon 2022 Radiology Study observation (narrative) [facility] HIV 1&2 AB/AG Screen (P24 AG )on 12-20-2022 HIV 1&2 AB/AG Non-Reactive [facility] Hepatitis B surface antigeno n 12-20-2022 Hepatitis B Surface Antigen Negative [facility] No Panel Informationon 12-20 [facility] Rubella IGG immune statuson 12-20-2022 Rubella immune IgG 1.96 [facility] Syphilis Total(Unknown Syphi lis Status)on 12-20-2022 [facility]philis Non-Reactive [facility] 2022 SEE SCANNED REPORt MANUAL LY TRANSCRIBED RESULTS [facility] COVID + FLU Quick Testingon 10-12-2022 SARS-CoV-2 (COVID-19) RNA BECCA+probe Ql (Unsp spec) negtaive Dabble DB [facility] [employer] Other COVID + FLU Quick Testing Negative Dabble DB [facility] [employer] Other Basic Metabolic Profon 09-11 Anion gap [Moles/Vol] 9 mmol/L Normal 9-17 [facility] Comment on above: Performed By: #### B FIFI CBC, PT #### [facility] [address], [place] [id number] Division Head: Anthony Aguilar MD Calcium [Mass/Vol] 8.8 mg/dL Normal 8.6-10.4 [facility] Comment on above: Performed By: #### B FIFI CBC, PT #### [facility] [address] [place] [address] Division Head: Anthony Aguilar MD Chloride [Moles/Vol] 106 mmol/L Normal 98-107 [facility] Comment on above: Performed By: #### B FIFI CBC, PT #### [facility] [address] [place] [address] Division Head: Anthony Aguilar MD CO2 [Moles/Vol] 23 mmol/L Normal 20-31 [facility] Comment on above: Performed By: #### B FIFI, CBC, PT #### [facility] [place] [employer] [address] [place] [address] Division Head: Anthony Aguilar MD Creatinine [Mass/Vol] 0.7 mg/dL Normal 0.5-0.9 [facility] Comment on above: Performed By: #### B FIFI, CBC, PT #### [facility] [place] [employer] [address] [place] [address] Division Head: Anthony Aguilar MD GFR/1.73 sq M.predicted among non-blacks MDRD (S/P/Bld) [Vol rate/Area] mL/min/{1.73_m2} Normal >60 [facility] Comment on above: Result Comment: These [...] PT #### [facility] [place] [employer] [address] [place] [address] Division Head: Anthony Aguilar MD Glucose [Mass/Vol] 79 mg/dL Normal 70-99 [facility] Comment on above: Performed By: #### B FIFI, CBC, PT #### [facility] [address] [place] [address] Division Head: Anthony Aguilar MD Potassium [Moles/Vol] 4.1 mmol/L Normal 3.7-5.3 [facility] Comment on above: Performed By: #### B FIFI, CBC, PT #### [facility] [address] [place] [address] Division Head: Anthony Aguilar MD Sodium [Moles/Vol] 138 mmol/L Normal 135-144 [facility] Comment on above: Performed By: #### B MP, CBC, PT #### [facility] [place] [employer] [address] [place] [address] Division Head: Anthony Aguilar MD Urea nitrogen [Mass/Vol] 11 mg/dL Normal 6-20 [facility] Comment on above: Performed By: #### B MP, CBC, PT #### [facility] [place] [employer] [address] [place] [address] Division Head: Anthony Aguilar MD CBCon 09-11-2022 Erythrocyte distribution width (RBC) [Ratio] 13.2 % Normal 11.8-14.4 [facility] Comment on above: Performed By: #### B MP, CBC, PT #### [facility] [place] [employer] [address] [place] [address] Division Head: Anthony Aguilar MD Hematocrit (Bld) [Volume fraction] 41.6 % Normal 36.3-47.1 [facility] Comment on above: Performed By: #### B FIFI, CBC, PT #### [facility] [place] [employer] [address] [place] [address] Division Head: Anthony Aguilar MD Hemoglobin (Bld) [Mass/Vol] 13.3 g/dL Normal 11.9-15.1 [facility] Comment on above: Performed By: #### B MP, CBC, PT #### [facility] [address] [place] [address] Division Head: Anthony Aguilar MD MCH (RBC) [Entitic mass] 28.3 pg Normal 25.2-33.5 [facility] Comment on above: Performed By: #### B FIFI, CBC, PT #### [facility] [address] [place] [address] Division Head: Anthony Aguilar MD MCHC (RBC) [Mass/Vol] 32.0 g/dL Normal 28.4-34.8 [facility] Comment on above: Performed By: #### B MP, CBC, PT #### [address] [address] Division Head: Anthony Aguilar MD MCV (RBC) [Entitic vol] 88.5 fL Normal 82.6-102.9 [facility] Comment on above: Performed By: #### B MP, CBC, PT #### [facility] [place] [employer] [address] [place] [address] Division Head: Anthony Aguilar MD NRBC Automated 0.0 per 100 WBC Normal 0.0 [facility] Comment on above: Performed By: #### B MP, CBC, PT #### [address] [address] Division Head: Anthony Aguilar MD Platelet mean volume (Bld) [Entitic vol] 9.7 fL Normal 8.1-13.5 [facility] Comment on above: Performed By: #### B MP, CBC, PT #### [address] [address] Division Head: Anthony Aguilar MD Platelets (Bld) [#/Vol] 276 10*3/uL Normal 138-453 [facility] Comment on above: Performed By: #### B MP, CBC, PT #### [address] [address] Division Head: Anthony Aguilar MD RBC (Bld) [#/Vol] 4.70 10*6/uL Normal 3.95-5.11 [facility] Comment on above: Performed By: #### B MP, CBC, PT #### [facility] [place] [employer] [address] [place] [address] Division Head: Anthony Aguilar MD WBC (Bld) [#/Vol] 7.4 10*3/uL Normal 3.5-11.3 [facility] Comment on above: Performed By: #### B MP, CBC, PT #### [facility], [place] [phone] Division Head: Anthony Aguilar MD PTon 09-11-2022 INR Coag (PPP) [Relative time] 1.0 {INR} Normal [facility] Comment on above: Result Comment: Therapeutic Range: Moderate Anticoagulant Intensity: INR = 2.0-3.0 High Anticoagulant Intensity: INR = 2.5-3.5 Performed By: #### B MP, CBC, PT #### [facility] [address] [place] [address] [phone] Division Head: Anthony Aguilar MD PT Coag (PPP) [Time] 12.9 s Normal 11.7-14.9 [facility] Comment on above: Performed By: #### B MP, CBC, PT #### [facility] [address] [place] [address] [phone] Division Head: Anthony Aguilar MD Surgical Pathologyon 023 Surgical Pathology (NOTE) Path Number: [id number] -- Diagnosis -- GALLBLADDER, CHOLECYSTECTOMY: -CHRONIC CHOLECYSTITIS [...] lesions or periductal lymph nodes are identified. Rebrander sections 1c. tm Microscopic Description Microscopic examination performed. Processing Lab: [address] [address] Interpretation Performed at [address] [phone] SURGICAL PATHOLOGY CONSULTATION Patient Name: FINA WALKER [facility] Rec: [id number] [facility] [employer] ANATOMIC PATHOLOGY [address] [place] [phone] Normal [facility] Urine Cultureon 02-08-2022 Bacteria identified Cx Nom (U) Reason for Exam Dysuria Urine ORGANISM: Escherichia coli (O:ESCCOL) [place] Count >100,000 Aerobic LISA Charge (NMIC56) ---- [...] RESISTANT TO ALL B-LACTAM DRUGS. PERFORMED BY: [place] [id number] PATHOLOGIST MIXER MACHINE FEEDER SAMIRA WEN M.D. [facility] Comment on above: Performed By: #### C UU #### [address] VC CONSULT FOLLOWUPon 2021 VC CONSULT FOLLOWUP Patient: FINA WALKER Exam Date: 01/08/2022 : 1995 Gender:F Ordering : DR JAMEEL ABEBE M.D. Admission #: [id number] Family : Order #: [id number] CLICK HERE TO VIEW EXAM RADIOLOGY REPORT [...] Hinton M.D. on 01/08/2022 at 10:10 Normal [facility] VC EXT VENOUS RT LIMITEDon 1 03-10-2021 VC EXT VENOUS RT LIMITED Patient: FINA WALKER Exam Date: 01/08/2022 : 1995 Gender:F Ordering : DR JAMEEL ABEBE M.D. Admission #: [id number] Family : Order #: [id number] CLICK HERE TO VIEW EXAM RADIOLOGY REPORT [...] Hinton M.D. on 01/08/2022 at 10:05 Normal [facility] VC ENDOVENOUS ABL 1ST V RTon 12-31-2021 VC ENDOVENOUS ABL 1ST V RT Patient: FINA WALKER Exam Date: 12/31/2021 : 1995 Gender:F Ordering : DR JAMEEL ABEBE M.D. Admission #: [id number] Family : Order #: [id number] CLICK HERE TO VIEW EXAM RADIOLOGY REPORT [...] Abebe MD on 12/31/2021 at 11:06 Normal [facility] ED Clinical Summaryon [address] [facility] ? Urgent Care [address] [place] [id number] Clinical Summary PERSON INFORMATION Name: VERNON WALKER Age: 26 Years Sex: FEMALE : 1995 MRN: Acct#: Visit Reason: OTTERBEIN PHYSICAL Arrival: 11/28/2021 10:39:56 Discharge: 11/28/2021 10:59:00 LOS: 000 00:20 Check In: 11/28/2021 10:39:56 Checkout: 11/28/2021 10:59:00 Address: [address] [place] [address] PCP: Provider, None PROVIDER INFORMATION VITALS INFORMATION Vital Sign Triage Latest Temperature Tympanic Temperature Temporal Artery Pulse Rate O2 Sat Respiratory Rate Blood Pressure / / MEDICAL INFORMATION Medications Given: Allergy Information: No known allergies PHYSICIAN DOCUMENTATION DISCHARGE INFORMATION: Discharge Disposition: Eloped Discharge Location: PATIENT EDUCATION INFORMATION Instructions: Follow-Up: DIAGNOSIS: Patient Understands: Comment: Normal [facility] ED Patient Summaryon [address] [facility] ? Urgent Care [address] [place] [address] PATIENT DISCHARGE INSTRUCTIONS Patient Information Name: VERNON WALKER Age: 26 Years Date of : 1995 Reason For Visit: OTTERBEIN PHYSICAL Arrival Time: 11/28/2021 10:39:56 Primary Care Physician: Provider, None Attending Physician: Nuno Bradshaw Comment: Patient Education Medication Information: The exam and treatment you received today in the [facility] Emergency Department were for an urgent problem and are not intended as complete care. It is important for you to follow up with a doctor, nurse practitioner, or physician?s family services assistant for ongoing care. If your symptoms [...] we can reach you if necessary. [facility] Emergency Department has provided you with a complete list of medications post discharge. Please inform your stockroom attendant/provider of your visit and for further instruction [...] Disease Control and Prevention October [address] [facility] VC CONSULT FOLLOWUPon 2021 VC CONSULT FOLLOWUP Patient: FINA WALKER Exam Date: 11/28/2021 : 1995 Gender:F Ordering : DR JAMEEL ABEBE M.D. Admission #: [id number] Family : Order #: [id number] CLICK HERE TO VIEW EXAM RADIOLOGY REPORT [...] Hinton M.D. on 11/28/2021 at 10:04 Normal [facility] VC EXT VENOUS LT LIMITEDon 1 VC EXT VENOUS LT LIMITED Patient: FINA WALKER Exam Date: 11/28/2021 : 1995 Gender:F Ordering : DR JAMEEL ABEBE M.D. Admission #: [id number] Family : Order #: [id number] CLICK HERE TO VIEW EXAM RADIOLOGY REPORT [...] Hinton M.D. on 11/28/2021 at 09:45 Normal [facility] VC ENDOVENOUS ABL 1ST V LTon 11-22-2021 VC ENDOVENOUS ABL 1ST V LT Patient: FINA WALKER Exam Date: 11/22/2021 : 1995 Gender:F Ordering : DR JAMEEL ABEBE M.D. Admission #: [id number] Family : Order #: [id number] CLICK HERE TO VIEW EXAM RADIOLOGY REPORT PROCEDURE: VEIN CENTER ENDOVENOUS ABLATION FIRST VEIN LEFT GREAT SAPHENOUS VEIN COMPARISON: VC VENOUS REFLUX JOVANA LMT, 10/17/2021. INDICATIONS: Pain co-occurrent and due to varicose veins of bilateral legs I83.813 OPERATIVE REPORT: The risks and benefits of the procedure had been previously discussed, and were rediscussed at length. Informed written consent was obtained by mt and Christopher Zavala assisted. Time out procedure [...] Jameel Abebe MD on 11/22/2021 at 09:04 [facility] VC COMP CONSULTATIONon 10-17 VC COMP CONSULTATION Patient: FINA WALKER Exam Date: 10/17/2021 : 1995 Gender:F Ordering : DR JAMEEL ABEBE M.D. Admission #: [id number] Family : Order #: [id number] CLICK HERE TO VIEW EXAM RADIOLOGY REPORT [...] 10/17/2021 at 12:46 Normal [facility] Basic Metabolic Panelon 04- Anion gap [Moles/Vol] 8 mmol/L Low 9 - 17 mmol/L [facility] Calcium [Mass/Vol] 8.6 mg/dL 8.6 - 10. 4 mg/dL [facility] Chloride [Moles/Vol] 106 mmol/L 98 - 107 mmol/L [facility] CO2 [Moles/Vol] 23 mmol/L 20 - 31 mmol/L [facility] Creatinine [Mass/Vol] 0.67 mg/dL 0.50 - 0.90 mg/dL [facility] GFR >60 >60 mL/min [facility] GFR Non- >60 >60 mL/min [facility] GFR/1.73 sq M.predicted MDRD (S/P/Bld) [Vol rate/Area] [facility] Comment on above: Average GFR for 20-2 9 years old: 116 mL/min/1.73sq m Chronic Kidney Disease: <60 mL/min/1.73sq m Kidney failure: <15 mL/min/1.73sq m eGFR calculated using average adult body mass. Additional eGFR calculator available at: http://www.Anystream.Vidatronic/multiple_crcl_2011.htm Glucose [Mass/Vol] 83 mg/dL 70 - 99 mg/dL [facility] [employer] Interpretation and review of laboratory results Abnormal [facility] Potassium [Moles/Vol] 3.9 mmol/L 3.7 - 5.3 mmol/L [facility] Sodium [Moles/Vol] 137 mmol/L 135 - 144 mmol/L [facility] Urea nitrogen (BldV) [Mass/Vol] 7 mg/dL 6 - 20 mg/dL [facility] CBCon 05-17-2021 Hematocrit (Bld) [Volume fraction] 34.4 % Low 36.3 - 47.1 % [facility] Hemoglobin.gastroin testinal spec 1 Ql (Stl) 11.0 g/dL Low 11.9 - 15.1 g/dL [facility] Interpretation and review of laboratory results Abnormal [facility] MCH (RBC) [Entitic mass] 27.2 pg 25.2 - 33.5 pg [facility] MCHC (RBC) [Mass/Vol] 32.0 g/dL 28.4 - 34.8 g/dL [facility] MCV (RBC) [Entitic vol] 85.1 fL 82.6 - 102.9 fL [facility] NRBC Automated 0.0 0.0 per 100 WBC [facility] Platelet distribution width (Bld) [Ratio] 14.1 % 11.8 - 14.4 % [facility] Platelet mean volume (Bld) [Entitic vol] 10.1 fL 8.1 - 13.5 fL [facility] Platelets (Bld) [#/Vol] 302 10*3/uL [facility] RBC (Bld) [#/Vol] 4.04 10*6/uL 3.95 - 5.1 1 m/uL [facility] WBC (Bld) [#/Vol] 13.7 10*3/uL High [facility] SURGICAL PATHOLOGY REPORTon 05-17-2021 Surgical [...] x 0.5 cm piece of adipose tissue. Rebrander sections 1cs. tm Microscopic Description 1 H&E reviewed. Microscopic examination performed. SURGICAL PATHOLOGY CONSULTATION Patient Name: FINA WALKER [facility] Rec: [id number] Path Number: [id number] [facility] [employer] [facility] [facility] ANATOMIC PATHOLOGY [address] [place] [address]. [place], [place] [address] [facility] Basic Metabolic Panelon Anion gap [Moles/Vol] 10 mmol/L 9 - 17 mmol/L [facility] Calcium [Mass/Vol] 8.7 mg/dL 8.6 - 10. 4 mg/dL [facility] Chloride [Moles/Vol] 105 mmol/L 98 - 107 mmol/L [facility] CO2 [Moles/Vol] 23 mmol/L 20 - 31 mmol/L [facility] Creatinine [Mass/Vol] 0.75 mg/dL 0.50 - 0.90 mg/dL [facility] GFR >60 >60 mL/min [employer] GFR Non- >60 >60 mL/min [facility] GFR/1.73 sq M.predicted MDRD (S/P/Bld) [Vol rate/Area] [facility] [place] [employer] Comment on above: Average GFR for 20-2 9 years old: 116 mL/min/1.73sq m Chronic Kidney Disease: <60 mL/min/1.73sq m Kidney failure: <15 mL/min/1.73sq m eGFR calculated using average adult body mass. Additional eGFR calculator available at: http://www.LendLayer/multiple_crcl_2012.htm Glucose [Mass/Vol] 132 mg/dL High 70 - 99 mg/dL [facility] [employer] Interpretation and review of laboratory results Abnormal [facility] Potassium [Moles/Vol] 3.5 mmol/L Low 3.7 - 5.3 mmol/L [facility] Sodium [Moles/Vol] 138 mmol/L 135 - 144 mmol/L [employer] Urea nitrogen (BldV) [Mass/Vol] 10 mg/dL 6 - 20 mg/dL [facility] [facility] [employer] CBC without Diffon 2 Hematocrit (Bld) [Volume fraction] 38.8 % 36.3 - 47.1 % [facility] Hemoglobin.gastroin testinal spec 1 Ql (Stl) 12.6 g/dL 11.9 - 15.1 g/dL [facility] [place] [facility] Interpretation and review of laboratory results Abnormal [facility] MCH (RBC) [Entitic mass] 27.2 pg 25.2 - 33.5 pg [facility] MCHC (RBC) [Mass/Vol] 32.5 g/dL 28.4 - 34.8 g/dL [facility] MCV (RBC) [Entitic vol] 83.8 fL 82.6 - 102.9 fL [facility] NRBC Automated 0.0 0.0 per 100 WBC [facility] Platelet distribution width (Bld) [Ratio] 13.9 % 11.8 - 14.4 % [facility] Platelet mean volume (Bld) [Entitic vol] 9.8 fL 8.1 - 13.5 fL [facility] Platelets (Bld) [#/Vol] 340 10*3/uL [facility] RBC (Bld) [#/Vol] 4.63 10*6/uL 3.95 - 5.1 1 m/uL [facility] WBC (Bld) [#/Vol] 15.0 10*3/uL High [facility] POC Glucose Fingerstickon Glucose [Mass/Vol] 77 mg/dL 65 - 105 mg/dL [facility] POCT urine pregnancyon 05-16 Beta HCG ( test) Ql (U) Negative NEGATIVE [facility] Comment on above: Specimens with hCG l evels near the threshold of the test (25 mIU/mL) may give a negative or indeterminate result. In such cases, another test should be performed with a new specimen in 48-72 hours. If early is suspected clinically in this setting, correlation with quantitative serum b-hCG level is suggested. [facility] [id number] 05-15-2021 SARS-CoV-2 (COVID-19) RNA BECCA+probe Ql (Unsp spec) Normal [facility] Comment on above: Performed By: #### C OVID #### [facility] [place] [employer] [address] [place] [address] Division Head: Anthony Aguilar MD [facility] [address] [address] Division Head: Jameel Lawler MD SARS-CoV-2 (COVID-19) RNA BECCA+probe Ql (Unsp spec) Not detected Normal NOTDET [facility] Comment on above: Result Comment: The [...] this assay. Fact sheet for Healthcare Providers: https://www.fda.gov/media/592037/download Fact sheet for Patients: https://www.fda.gov/media/410387/download METHODOLOGY: RT-PCR Performed By: #### C OVID #### [address] [id number] Division Head: Anthony Aguilar MD [facility] [address] [place] [address] [place] [address] Division Head: Jameel Lawler MD [id number] 05-14-2021 SARS-CoV-2 (COVID-19) RNA BECCA+probe Ql (Unsp spec) .NASOPHARYNGEAL SWAB Normal [facility] Comment on above: Performed By: #### C OVID #### [address] [address] Division Head: Anthony Aguilar MD [facility] [address] [place] [address] [place] [address] Division Head: Jameel Lawler MD Nicotine, Bloodon 05-05-2021 5-[id number] <2 ng/mL [facility] Cotinine <2 ng/mL [facility] Nicotine <2 ng/mL [facility] Comment on above: (NOTE) Consistent with abstinence [...] developed and its performance characteristics determined by [employer]. It has not been cleared or approved by the US Food and Drug Administration. This test was performed in a CLIA certified laboratory and is intended for clinical purposes. Performed By: [employer] [address] [place] [id number] Waiter/Waitress Buffet: Yara Rodriguez MD [facility] EKG 12 LeadOrdered By: Diaz Conway on 05-03-2021 Atrial Rate 72 BPM [facility] Work Phone: P [place] 45 degrees [employer] Phone: P-R Interval 142 ms [employer] Phone: Q-T Interval 376 ms [facility] Work Phone: QRS Duration 100 ms [facility] Work Phone: QTc Calculation (Bazett) 411 ms [employer] Phone: R [place] 22 degrees [employer] Phone: T [place] 32 degrees [facility] Work Phone: Ventricular Rate 72 BPM [place] Work Phone: [employer] Phone: EKG 12 Leadon 05-03-2021 Normal sinus rhythm Normal ECG No previous ECGs available [facility] Diaz Elias MD - 05/03/2021 Normal sinus rhythm Normal ECG No previous ECGs available [facility] Work Phone: APTTon 05-02-2021 aPTT Coag (Bld) [Time] 25.0 s [facility] Comment on above: IV Heparin Therapy Range: 48.6-77.8 Basic Metabolic Panelon 04-11 Anion gap [Moles/Vol] 15 mmol/L 9 - 17 mmol/L [facility] Calcium [Mass/Vol] 9.8 mg/dL 8.6 - 10. 4 mg/dL [facility] Chloride [Moles/Vol] 102 mmol/L 98 - 107 mmol/L [facility] CO2 [Moles/Vol] 21 mmol/L 20 - 31 mmol/L [facility] Creatinine [Mass/Vol] 0.55 mg/dL 0.50 - 0.90 mg/dL [facility] GFR >60 >60 mL/min [facility] GFR Non- >60 >60 mL/min [facility] GFR/1.73 sq M.predicted MDRD (S/P/Bld) [Vol rate/Area] [facility] Comment on above: Average GFR for 20-2 9 years old: 116 mL/min/1.73sq m Chronic Kidney Disease: <60 mL/min/1.73sq m Kidney failure: <15 mL/min/1.73sq m eGFR calculated using average adult body mass. Additional eGFR calculator available at: http://www.Anystream.Vidatronic/multiple_crcl_2012.htm Glucose [Mass/Vol] 85 mg/dL 70 - 99 mg/dL [facility] [employer] Potassium [Moles/Vol] 4.5 mmol/L 3.7 - 5.3 mmol/L [facility] Sodium [Moles/Vol] 138 mmol/L 135 - 144 mmol/L [facility] Urea nitrogen (BldV) [Mass/Vol] 11 mg/dL 6 - 20 mg/dL [facility] CBCon 05-02-2021 Hematocrit (Bld) [Volume fraction] 41.0 % 36.3 - 47.1 % [facility] Hemoglobin.gastroin testinal spec 1 Ql (Stl) 12.9 g/dL 11.9 - 15.1 g/dL [facility] MCH (RBC) [Entitic mass] 26.9 pg 25.2 - 33.5 pg [facility] MCHC (RBC) [Mass/Vol] 31.5 g/dL 28.4 - 34.8 g/dL [facility] MCV (RBC) [Entitic vol] 85.6 fL 82.6 - 102.9 fL [facility] NRBC Automated 0.0 0.0 per 100 WBC [facility] [employer] Platelet distribution width (Bld) [Ratio] 13.7 % 11.8 - 14.4 % [facility] [employer] Platelet mean volume (Bld) [Entitic vol] 9.8 fL 8.1 - 13.5 fL [facility] [employer] Platelets (Bld) [#/Vol] 380 10*3/uL [facility] [employer] RBC (Bld) [#/Vol] 4.79 10*6/uL 3.95 - 5.1 1 m/uL [facility] [employer] WBC (Bld) [#/Vol] 11.2 10*3/uL [facility] No Panel Informationon 05-02 [facility] Protime-INRon 05-02-2021 INR Coag (Bld) [Relative time] 1.0 {INR} [facility] [employer] Comment on above: Therapeutic Range: Moderate Anticoagulant Intensity: INR = 2.0-3.0 High Anticoagulant Intensity: INR = 2.5-3.5 PT Coag (PPP) [Time] 10.6 s [facility] XR CHEST (2 VW)on 05-02-2021 No acute process. [facility] RIS CONSOLIDATED EXAMINATION: TWO XRAY VIEWS OF THE CHEST 05/02/2021 11:20 am COMPARISON: None. HISTORY: ORDERING SYSTEM PROVIDED HISTORY: preop, obesity TECHNOLOGIST PROVIDED HISTORY: preop, obesity FINDINGS: Heart is normal in size. Lungs are clear. No free air. [facility] RIS CONSOLIDATED Jose Juan Florez Jr. , DO - 05/02/2021 EXAMINATION: TWO XRAY VIEWS OF THE CHEST 05/02/2021 11:20 am COMPARISON: None. HISTORY: ORDERING SYSTEM PROVIDED HISTORY: preop, obesity TECHNOLOGIST PROVIDED HISTORY: preop, obesity FINDINGS: Heart is normal in size. Lungs are clear. No free air. IMPRESSION: No acute process. [employer] Phone: Radiology Study observation (narrative) [employer] Phone: XR CHEST (2 VW)Ordered By: Santos Florez on 05-02-2021 [employer] Phone: [id number] 12-05-2020 SARS-CoV-2 (COVID-19) RNA BECCA+probe Ql (Unsp spec) Normal [facility] Comment on above: Performed By: #### C OVID #### [facility] [employer] [address] [place] [address] Division Head: Anthony Aguilar MD [facility] [address] [place] [address] Division Head: Jameel Lawler MD SARS-CoV-2 (COVID-19) RNA BECCA+probe Ql (Unsp spec) Not detected Normal NOTDET [facility] Comment on above: Result Comment: The specimen is NEGATIVE for SARS-CoV-2, the novel coronavirus associated with COVID-19. A negative result does not rule out COVID-19. Lucrecia SARS-CoV-2 for use on the [employer] Pacinian0/8800 [employer] is a real-time RT-PCR test intended [...] this assay. Fact sheet for Healthcare Providers: https://www.fda.gov/media/930850/download Fact sheet for Patients: https://www.fda.gov/media/290330/download METHODOLOGY: RT-PCR Performed By: #### C OVID #### [employer] [address], [place] [id number] Division Head: Anthony Aguilar MD [facility] [address] [place] [address] [place] [address] Division Head: Jameel Lawler MD [id number] 12-04-2020 SARS-CoV-2 (COVID-19) RNA BECCA+probe Ql (Unsp spec) .NASOPHARYNGEAL SWAB Normal [facility] Comment on above: Performed By: #### C OVID #### [facility] [address], [place] [id number] Division Head: Anthony Aguilar MD [facility] [address] [place] [address] [place] [address] Division Head: Jameel Lawler MD Vital Signs Date Time Vital Sign Value Performing Clinician Facility 03-19-2023 11:06-0500 Body mass index (BMI) [Ratio] 36.34 kg/m2 Eloise BURROUGHS Work Phone: [facility] 03-19-2023 11:06-0500 Body weight 105.23 kg Eloise BURROUGHS Work Phone: [facility] 03-19-2023 11:06-0500 Diastolic blood pressure 78 mm[Hg] Eloise BURROUGHS Work Phone: [facility] 03-19-2023 11:06-0500 Systolic blood pressure 124 mm[Hg] Eloise BURROUGHS Work Phone: [facility] 03-05-2023 10:48-0500 Body mass index (BMI) [Ratio] 35.08 kg/m2 Karoline Hopson MD Work Phone: [facility] 03-05-2023 10:48-0500 Body weight 101.61 kg Karoline Hopson MD Work Phone: [facility] 03-05-2023 10:48-0500 Diastolic blood pressure 75 mm[Hg] Karoline Hopson MD Work Phone: [facility] 03-05-2023 10:48-0500 Heart rate 89 /min Karoline Hopson MD Work Phone: [facility] 03-05-2023 10:48-0500 Systolic blood pressure 126 mm[Hg] Karoline Hopson MD Work Phone: [facility] 02-07-2023 13:34-0500 Body height 170.2 cm Tatiana Yap MD Work Phone: [facility] 02-07-2023 13:34-0500 Body mass index (BMI) [Ratio] 34.14 kg/m2 Tatiana Yap MD Work Phone: [facility] 02-07-2023 13:34-0500 Body weight 98.88 kg Tatiana Yap MD Work Phone: [facility] 02-07-2023 13:34-0500 Diastolic blood pressure 83 mm[Hg] Tatiana Yap MD Work Phone: [facility] 02-07-2023 13:34-0500 Heart rate 76 /min Tatiana Yap MD Work Phone: [facility] 02-07-2023 13:34-0500 Systolic blood pressure 126 mm[Hg] Tatiana Yap MD Work Phone: [facility] 10-12-2022 10:10-0400 Body height 170.18 cm Lilia Daugherty Other [facility] Other 10-12-2022 10:10-0400 Body mass index (BMI) [Ratio] 32.86 kg/m2 Lilia Daugherty Other [facility] Other 10-12-2022 10:10-0400 Body temperature 99 [degF] Lilia Daugherty Other [facility] Other 10-12-2022 10:10-0400 Body weight 95.17 kg Lilia Daugherty Other [facility] Other 10-12-2022 10:10-0400 Diastolic blood pressure 74 mm[Hg] Lilia Daugherty Other [facility] Other 10-12-2022 10:10-0400 SaO2% (BldA) [Mass fraction] 98 % Lilia Daugherty Other [facility] Other 10-12-2022 10:10-0400 Systolic blood pressure 118 mm[Hg] Lilia Daugherty Other [facility] Other 05-17-2021 15:52-0400 Body temperature 98.49 [degF] Patricia Mars [employer] Work Phone: [facility] 05-17-2021 15:52-0400 Diastolic blood pressure 97 mm[Hg] Patricia Mars Eloquii Work Phone: [facility] 05-17-2021 15:52-0400 Heart rate 70 /min Patricia Mars Eloquii Work Phone: [facility] 05-17-2021 15:52-0400 Respiratory rate 18 /min Patricia Mars [employer]oqu[employer] Work Phone: [facility] 05-17-2021 15:52-0400 SaO2% (BldA) [Mass fraction] 99 % Patricia Mars [employer] Work Phone: [facility] 05-17-2021 15:52-0400 Systolic blood pressure 138 mm[Hg] Patricia Mars Eloquii Work Phone: [facility] 05-16-2021 06:06-0400 Body mass index (BMI) [Ratio] 43.16 kg/m2 Patricia Mars [employer] Work Phone: [facility] 05-16-2021 06:06-0400 Body weight 125 kg Patricia Mars [employer] Work Phone: [facility] 05-16-2021 05:57-0400 Body height 170.2 cm Patricia Mars DO Work Phone: [facility] 05-02-2021 10:35-0400 Body height 170.2 cm Stvz 1 [facility] 05-02-2021 10:35-0400 Body mass index (BMI) [Ratio] 44.95 kg/m2 Stvz 1 [facility] 05-02-2021 10:35-0400 Body temperature 97.2 [degF] Stvz 1 [facility] 05-02-2021 10:35-0400 Body weight 130.18 kg Stvz 1 [facility] 05-02-2021 10:35-0400 Diastolic blood pressure 85 mm[Hg] Stvz 1 [facility] 05-02-2021 10:35-0400 Heart rate 66 /min Stvz 1 [facility] 05-02-2021 10:35-0400 Respiratory rate 18 /min Stvz 1 [facility] 05-02-2021 10:35-0400 SaO2% (BldA) [Mass fraction] 99 % Stvz 1 [facility] 05-02-2021 10:35-0400 Systolic blood pressure 122 mm[Hg] Stvz 1 [facility] 12-04-2020 17:00-0400 Body height 170.18 cm Ale Harris Other [facility] Other 12-04-2020 17:00-0400 Body mass index (BMI) [Ratio] 43.85 kg/m2 Ale Ginty Other [facility] Other 12-04-2020 17:00-0400 Body temperature 97.4 [degF] Ale Ginty Other [facility] Other 12-04-2020 17:00-0400 Body weight 127.01 kg Ale Ginty Other [facility] Other 12-04-2020 17:00-0400 SaO2% (BldA) [Mass fraction] 99 % Ale Harris Other [facility] Other Encounters Encounter Date Encounter Type Care [...] Start: 04-09-2023 End: 04-10-2023 ambulatory NIGEL ARNETT [facility] Start: 03-24-2023 Clinisync Result Encounter Nigel [...] Only Laila Castillo RN [facility] Comment on above: Hypertension affecti ng in second trimester (Primary Dx); Dichorionic diamniotic twin in second trimester Start: 03-05-2023 End: 03-05-2023 Office outpatient visit 15 minutes Karoline Hopson MD Work Phone: [facility] Comment on above: History of sleeve ga strectomy (Primary Dx); History of induced hypertension Start: 02-27-2023 Orders Only Sivan Martinez RN Ma tern[facility]- [facility] at [facility] Comment on above: Hypertension affecti ng in second trimester; 16 weeks gestation of ; Dichorionic diamniotic twin in second trimester Start: 02-26-2023 End: 02-26-2023 ambulatory NIGEL ZACARIAS Not Available Start: 02-24-2023 Telephone encounter Sangita Thomas RN [facility] [place] Start: 02-07-2023 End: 02-07-2023 ambulatory TATIANA YAP [facility] Start: 02-07-2023 End: 02-07-2023 Office consultation new/estab patient 60 min Tatiana Yap MD Work Phone: [facility] [place] Comment on above: Hypertension affecti ng in second trimester (Primary Dx); 16 weeks gestation of ; Dichorionic diamniotic twin in second trimester; H/O gastric sleeve Start: 02-05-2023 End: 02-05-2023 ambulatory NIGLE ZACARIAS Not Available Start: 02-05-2023 Chart abstracting Tatiana Yap MD Work Phone: [facility] [place] Start: 02-04-2023 End: 02-04-2023 ambulatory MARGOT G YAW Not Available Start: 01-15-2023 End: 01-15-2023 ambulatory NIGEL ZACARIAS Not Available Start: 01-07-2023 End: 01-07-2023 ambulatory MARGOT G YAW Not Available Start: 12-20-2022 End: 12-21-2022 ambulatory NIGEL ZACARIAS Not Available Start: 10-12-2022 End: 10-12-2022 ambulatory Lilia Daugherty Other [facility] Other Start: 10-12-2022 Office outpatient vi sit 15 minutes Lilia Daugherty [facility] [place] Start: 09-11-2022 End: 09-11-2022 ambulatory PATRICIA Ríos [facility] Start: 02-10-2022 End: 02-10-2022 ambulatory Ale Shields Other [facility] Other Start: 02-10-2022 Telephone encounter Ale DA SILVA [facility] [address] Start: 02-08-2022 End: 02-08-2022 ambulatory Ale Kishor Shields Facility:[facility] Start: 02-08-2022 End: 02-08-2022 ambulatory UTILIZATION SPECIALIST Ale Shields Work Phone: [facility] Work Phone: Start: 02-08-2022 End: 02-08-2022 Departed Referred UTILIZATION SPECIALISTLiliana Aguilera Shields Work Phone: [facility] [place] Work Phone: Start: 01-08-2022 End: 01-09-[address] JAMEEL ABEBE Facility:[facility] Start: 12-31-2021 End: 01-01-[address] JAMEEL ABEBE Facility:[facility] Start: 11-28-2021 End: 11-28-2021 ambulatory None Provider Facility:[facility] Start: 11-28-2021 End: 11-29-[address] [...] 05-14-2021 End: 05-19-2021 ambulatory CYN SARY [facility] Start: 05-02-2021 End: 05-06-2021 Subsequent hospital visit by physician [facility] Pat Rm 1 [facility] Pre-Admit Testing Start: 12-04-2020 End: 12-09-2020 ambulatory CYNBriseyda Ríos [facility] Start: 12-04-2020 Office outpatient vi sit 15 minutes Ale Latagabalfredo [facility] [place] Start: 10-20-2020 End: 10-20-2020 Subsequent hospital visit by physician Patricia Mars DO Work Phone: [facility] [place] Start: 09-06-2020 End: 09-07-2020 ambulatory IKE ANGEL Ríos [facility] Start: 09-06-2020 End: 09-06-2020 Subsequent hospital visit by physician [facility] Sleep Rm 1 [facility] Comment on above: LYNN (obstructive sle ep apnea) Start: 05-28-2017 End: 05-29-2017 Ambulatory Neo Anderson Facility:[id number] Procedures Date Procedure Procedure Detail Performing Clinician Start: 03-24-2023 [facility] UA (CLEAN/CATCH) FACTORY SUPERVISOR/MICRO IF IND. Nigel Zacarias DO Work [...] test visual color cmprsn meths Patricia Mars [employer] Work Phone: Start: 05-02-2021 Assay of nicotine Sim Mars [employer] Work Phone: Start: 05-02-2021 Basic metabolic pane l calcium total Patricia Mars DO Work Phone: Start: 05-02-2021 Radiologic exam ches t 2 views Patricia Mars DO Work Phone: Start: 05-02-2021 Ecg routine ecg w/le ast 12 lds i&r only Patricia Mars [employer] Work Phone: Start: 06-14-2020 Microscopic observat ion [Identifier] in Cervix by Cyto stain Tatiana Yap MD Work Phone: Plan of Treatment Date Care Activity Detail Author Start: 03-05-2024 Adult BMI Screening Adult [facility] Screen ing [facility] Start: 03-05-2024 Tobacco Screening Tobacco Screening [facility] Start: 03-05-2024 End: 03-05-2024 US MFM with or without consult US MFM with or without consult Imaging Routine Hypertension affecting in second trimester Dichorionic diamniotic twin in second trimester Expected: 03/05/2024 (Approximate), Expires: 03/05/2024 [facility] Work Phone: Comment on above: Expected: 03/05/2024 (Approximate), Expires: 03/05/2024 Start: 02-08-2024 Adult BMI Screening Adult BMI Screen ing [facility] Start: 02-08-2024 Tobacco Screening Tobacco Screening [facility] Start: 01-04-2024 Adult BMI Screening Adult BMI Screen ing [facility] Start: 01-04-2024 Tobacco Screening Tobacco Screening [facility] Start: 08-11-2023 DTaP,Tdap and Td Vaccines (7 - Td or Tdap) DTaP,Tdap and Td Vaccines (7 - Td or Tdap) [facility] Start: 08-11-2023 DTaP/Tdap/Td vaccine (7 - Td or Tdap) DTaP/Tdap/Td vaccine (7 - Td or Tdap) [facility] Start: 08-10-2023 Influenza vaccination Influenza Vacc ine (#1) [facility] Comment on above: Postponed from 10/11 (Patient Refused) Start: 06-15-2023 Screening for malign ant neoplasm of cervix Pap Smear [facility] Start: 04-10-2023 End: 04-10-2023 Patient encounter procedure [facility] Start: 03-19-2023 End: 03-19-2024 CBC panel - Blood by Automated count CBC Lab Routine Diabetes mellitus screening Expected: 03/19/2023 (Approximate), Expires: 03/19/2024 [facility] Work Phone: Comment on above: Expected: 03/19/2023 (Approximate), Expires: 03/19/2024 Start: 03-19-2023 End: 03-19-2024 Measurement of glucose 1 hour after glucose challenge for glucose tolerance test Glucose tolerance, 1 hour Lab Routine Diabetes mellitus screening Expected: 03/19/2023 (Approximate), Expires: 03/19/2024 [facility] Comment on above: Expected: 03/19/2023 (Approximate), Expires: 03/19/2024 Start: 03-05-2023 End: 03-05-2023 Patient encounter procedure 03/05/2023 11:30 AM EST Office Visit [facility] at [facility] [address] [place] [phone] Karoline Hopson MD [address] [place] [address] [facility] Start: 03-05-2023 End: 03-05-2023 Patient encounter procedure 03/05/2023 9:30 AM EST Appointment [facility] [address] [place] [phone] [facility] Start: 02-07-2023 End: 02-07-2023 Patient encounter procedure [facility] [place] Start: 10-11-2022 Influenza vaccination Influenza Vacc ine [facility] Start: 09-19-2022 Adult BMI Follow Up Plan Adult BMI Follow Up Plan [facility] Start: 02-08-2022 Bacteria identified in Urine by Culture Urine Culture [facility] Start: 01-08-2022 Hemoglobin A1c measurement A1C test (Diabetic or Prediabetic) [facility] Start: 10-11-2021 Influenza vaccination Flu vacc ine (Season Ended) [facility] Start: 07-14-2021 Hemoglobin A1c measurement A1C test (Diabetic or Prediabetic) [facility] Work Phone: Start: 06-18-2021 End: 06-18-2021 Patient encounter procedure 06/18/2021 Office Visit Bariatrics Deann Navarro, UTILIZATION SPECIALIST - PORCELAIN ENAMEL INSTALLER [address] [place] [phone] [facility] Start: 05-24-2021 End: 05-24-2021 Patient encounter procedure 05/24/2021 Office Visit Patricia Islas DO [address] [facility] [address] [place] [address] [facility] Invasive Bariatric Surg Start: 05-16-2021 End: 05-16-2021 Admission to same day surgery center 05/16/2021 Surgery IP Unit Patricia Mars DO [address] [place] [address] XI ROBOTIC LAPAROSCOPIC GASTRECTOMY SLEEVE , LIVER BIOPSY, EGD- GI SCHEDULED [facility] Comment on above: XI ROBOTIC LAPAROSCO PIC GASTRECTOMY SLEEVE , LIVER BIOPSY, EGD- GI SCHEDULED Start: 05-16-2021 End: 05-16-2021 Laps gstrc rstrictiv px longitudinal gastrectomy GASTRECTOMY SLEEVE LAPAROSCOPIC ROBOTIC MORBID OBESITY, OBSTRUCTIVE SLEEP APNEA, GERD 05/16/2021 7:10 AM EDT [facility] Start: 05-16-2021 Subsequent hospital visit by physician 05/16/2021 Hospital Encounter IP Unit Patricia Mars DO [address] [place] [address] [facility] Start: 05-13-2021 End: 05-13-2021 Patient encounter procedure 05/13/2021 Appointment Pre-Admission Testing [facility] PRE ADMIT Start: 05-10-2021 End: 05-10-2021 Patient encounter procedure 05/10/2021 Office Visit Patricia Islas DO [address] [place] [address] [facility] Invasive Bariatric Surg Start: 11-22-2020 End: 11-22-2020 Nursing evaluation of patient and report 11/22/2020 Nurse Only Bariatrics [facility] Invasive Bariatric Surg Start: 11-06-2020 End: 11-06-2020 Patient encounter procedure [facility] Start: 11-03-2020 End: 11-03-2020 Patient encounter procedure 11/03/2020 Office Visit BariatricDeann Roca, UTILIZATION SPECIALIST - PORCELAIN ENAMEL INSTALLER [address] [facility] [place] [phone] [facility] Start: 10-11-2020 Influenza vaccination Flu vaccine (# 1) [facility] Start: 09-28-2020 End: 09-28-2020 Patient encounter procedure 09/28/2020 Office Visit Bariatrics Deann Navarro, UTILIZATION SPECIALIST - PORCELAIN ENAMEL INSTALLER [address] [facility] [place] [address] [facility] Start: 09-01-2015 Screening for malign ant neoplasm of cervix [facility] Start: 2009 HIV screening HIV screen [facility] Start: 2006 COVID-19 Vaccine (1) COVID-19 Vaccin e (1) [facility] Work Phone: Start: 2006 Depression Screen Depression Screen [facility] Start: 2006 Depression Screening Depression Scre [facility] Start: 2005 HPV vaccine (1 - 2-d ose series) HPV vaccine (1 - 2-dose series) [facility] Start: 2000 Pneumococcal 0-64 ye ars Vaccine (1 of 2 - PPSV23) Pneumococcal 0-64 years Vaccine (1 of 2 - PPSV23) [facility] Work Phone: Start: 09-01-1999 COVID-19 Vaccine (1) COVID-19 Vaccin e (1) [facility] Start: 09-01-1995 Varicella vaccine (1 of 2 - 2-dose childhood series) Varicella vaccine (1 of 2 - 2-dose childhood series) [facility] Start: 1994 Hepatitis C screening Hepatitis C sc reen [facility] End: 09-06-2020 Baseline Diagnostic Sleep Study Baseline Diagnostic Sleep Study Sleep Center Routine LYNN (obstructive sleep apnea) 1 Occurrences starting 09/06/2020 until 09/06/2020 [facility] [employer] Phone: Comment on above: 1 Occurrences starti ng 09/06/2020 until 09/06/2020 End: 02-08-2024 Calcium [Mass/volume] in Serum or Plasma Calcium Lab Routine 16 weeks gestation of H/O gastric sleeve 1 Occurrences starting 02/07/2023 until 02/08/2024 [facility] Comment on above: 1 Occurrences starti ng 02/07/2023 until 02/08/2024 End: 02-08-2024 CBC panel - Blood by Automated count CBC without diff Lab Routine Hypertension affecting in second trimester 16 weeks gestation of Dichorionic diamniotic twin in second trimester 1 Occurrences starting 02/07/2023 until 02/08/2024 [employer] Work Phone: Comment on above: 1 Occurrences starti ng 02/07/2023 until 02/08/2024 End: 02-08-2024 Comprehensive metabolic 2000 panel - Serum or Plasma Comprehensive metabolic panel Lab Routine Hypertension affecting in second trimester 16 weeks gestation of Dichorionic diamniotic twin in second trimester 1 Occurrences starting 02/07/2023 until 02/08/2024 [employer] Comment on above: 1 Occurrences starti ng 02/07/2023 until 02/08/2024 Continuous pulse oximetry Pulse oximetry, continuous Respiratory Care Routine Every 4hr until discontinued starting 05/16/2021 [employer] Phone: Comment on above: Every 4hr until disc ontinued starting 05/16/2021 End: 02-08-2024 Cyanocobalamin vitamin b-12 Vitamin B12 Lab Routine 16 weeks gestation of H/O gastric sleeve 1 Occurrences starting 02/07/2023 until 02/08/2024 [facility] Comment on above: 1 Occurrences starti ng 02/07/2023 until 02/08/2024 End: 02-08-2024 ECG 12 lead ECG 12 lead ECG Routine Hypertension affecting in second trimester 16 weeks gestation of Dichorionic diamniotic twin in second trimester 1 Occurrences starting 02/07/2023 until 02/08/2024 [facility] Comment on above: 1 Occurrences starti ng 02/07/2023 until 02/08/2024 End: 02-08-2024 Folate Folate Lab Routine 16 weeks gestation of H/O gastric sleeve 1 Occurrences starting 02/07/2023 until 02/08/2024 [facility] Comment on above: 1 Occurrences starti ng 02/07/2023 until 02/08/2024 End: 02-08-2024 Iron and TIBC Iron and TIBC Lab Routine 16 weeks gestation of H/O gastric sleeve 1 Occurrences starting 02/07/2023 until 02/08/2024 [facility] Comment on above: 1 Occurrences starti ng 02/07/2023 until 02/08/2024 End: 02-08-2024 LDH LDH Lab Routine Hypertension affecting in second trimester 16 weeks gestation of Dichorionic diamniotic twin in second trimester 1 Occurrences starting 02/07/2023 until 02/08/2024 [facility] Comment on above: 1 Occurrences starti ng 02/07/2023 until 02/08/2024 End: 02-08-2024 Natriuretic peptide B [Mass/volume] in Blood B-type natriuretic peptide Lab Routine Hypertension affecting in second trimester 16 weeks gestation of Dichorionic diamniotic twin in second trimester 1 Occurrences starting 02/07/2023 until 02/08/2024 [facility] Comment on above: 1 Occurrences starti ng 02/07/2023 until 02/08/2024 Oxygen therapy [[facility] Data Set] Initiate Oxygen Therapy Protocol Respiratory Care Routine As Needed until discontinued starting 05/16/2021 [facility] Phone: Comment on above: As Needed until disc ontinued starting 05/16/2021 End: 02-08-2024 Protein creat ratio Protein creat ratio Lab Routine Hypertension affecting in second trimester 16 weeks gestation of Dichorionic diamniotic twin in second trimester 1 Occurrences starting 02/07/2023 until 02/08/2024 [facility] Comment on above: 1 Occurrences starti ng 02/07/2023 until 02/08/2024 End: 02-08-2024 Protein, urine, 24 hour Protein, urine, 24 hour Lab Routine Hypertension affecting in second trimester 16 weeks gestation of Dichorionic diamniotic twin in second trimester 1 Occurrences starting 02/07/2023 until 02/08/2024 [facility] Comment on above: 1 Occurrences starti ng 02/07/2023 until 02/08/2024 Spirometry panel Incentive isiah metry Respiratory Care Routine Every 2hr while awake until discontinued starting 05/16/2021 [facility] Phone: Comment on above: Every 2hr while awak e until discontinued starting 05/16/2021 Surgical Pathology Surgical Path ology Lab Routine Release Upon Ordering for 1 Occurrences starting 05/16/2021 [facility] Work Phone: Comment on above: Release Upon Orderin g for 1 Occurrences starting 05/16/2021 End: 02-08-2024 Thiamin Vitamin B1, whole blood Thiamin Vitamin B1, whole blood Lab Routine 16 weeks gestation of H/O gastric sleeve 1 Occurrences starting 02/07/2023 until 02/08/2024 [facility] Comment on above: 1 Occurrences starti ng 02/07/2023 until 02/08/2024 End: 02-08-2024 Urate [Mass/volume] in Serum or Plasma Uric acid Lab Routine Hypertension affecting in second trimester 16 weeks gestation of Dichorionic diamniotic twin in second trimester 1 Occurrences starting 02/07/2023 until 02/08/2024 [facility] Comment on above: 1 Occurrences starti ng 02/07/2023 until 02/08/2024 End: 02-08-2024 Vitamin D 25 hydroxy Vitamin D 25 hydroxy Lab Routine 16 weeks gestation of H/O gastric sleeve 1 Occurrences starting 02/07/2023 until 02/08/2024 [facility] Comment on above: 1 Occurrences starti ng 02/07/2023 until 02/08/2024 Immunizations Immunization Date Immunization Notes Care Provider [facility] 11-12-2016 tuberculin skin test ; purified protein derivative solution, intradermal Tatiana Yap MD Work Phone: [facility] 08-10-2013 tetanus toxoid, redu yemi diphtheria toxoid, and acellular pertussis vaccine, adsorbed Tatiana Yap MD Work Phone: [facility] 10-03-1999 diphtheria, tetanus toxoids and acellular pertussis vaccine Tatiana Yap MD Work Phone: [facility] 10-03-1999 diphtheria, tetanus toxoids and acellular pertussis vaccine, unspecified formulation Eloise BURROUGHS Work Phone: [facility] 10-03-1999 hepatitis B vaccine, pediatric or pediatric/adolescent dosage Tatiana Yap MD Work Phone: [facility] 10-03-1999 measles, mumps and rubella virus vaccine Tatiana Yap MD Work Phone: [facility] 10-03-1999 poliovirus vaccine, inactivated Tatiana Yap MD Work Phone: [facility] 01-14-1996 diphtheria, tetanus toxoids and acellular pertussis vaccine Tatiana Yap MD Work Phone: [facility] 01-14-1996 diphtheria, tetanus toxoids and pertussis vaccine Eloise BURROUGHS Work Phone: [facility] 01-14-1996 haemophilus influenz ae type b vaccine, conjugate unspecified formulation Tatiana Yap MD Work Phone: [facility] 01-14-1996 measles, mumps and rubella virus vaccine Tatiana Yap MD Work Phone: [facility] 05-21-1995 diphtheria, tetanus toxoids and acellular pertussis vaccine Tatiana Yap MD Work Phone: [facility] 05-21-1995 DTP-Haemophilus influenzae type b conjugate vaccine Eloise BURROUGHS Work Phone: [facility] 05-21-1995 haemophilus influenz ae type b vaccine, conjugate unspecified formulation Tatiana Yap MD Work Phone: [facility] 05-21-1995 poliovirus vaccine, inactivated Tatiana Yap MD Work Phone: [facility] 05-21-1995 trivalent poliovirus vaccine, live, oral Eloise BURROUGHS Work Phone: [facility] 02-21-1995 diphtheria, tetanus toxoids and acellular pertussis vaccine Tatiana Yap MD Work Phone: [facility] 02-21-1995 DTP-Haemophilus influenzae type b conjugate vaccine Eloise BURROUGHS Work Phone: [facility] 02-21-1995 haemophilus influenz ae type b vaccine, conjugate unspecified formulation Tatiana Yap MD Work Phone: [facility] 02-21-1995 hepatitis B vaccine, pediatric or pediatric/adolescent dosage Tatiana Yap MD Work Phone: [facility] 02-21-1995 poliovirus vaccine, inactivated Tatiana Yap MD Work Phone: [facility] 02-21-1995 trivalent poliovirus vaccine, live, oral Eloise BURROUGHS Work Phone: [facility] 1994 diphtheria, tetanus toxoids and acellular pertussis vaccine Tatiana Yap MD Work Phone: [facility] 1994 DTP-Haemophilus influenzae type b conjugate vaccine Eloise BURROUGHS Work Phone: [facility] 1994 haemophilus influenz ae type b vaccine, conjugate unspecified formulation Tatiana Yap MD Work Phone: [facility] 1994 hepatitis B vaccine, pediatric or pediatric/adolescent dosage Tataina Yap MD Work Phone: [facility] 1994 poliovirus vaccine, inactivated Tatiana Yap MD Work Phone: [facility] 1994 trivalent poliovirus vaccine, live, oral Eloise BURROUGHS Work Phone: [facility] 1994 hepatitis B vaccine, pediatric or pediatric/adolescent dosage Tatiana Yap MD Work Phone: [facility] Payers Date Payer Category Payer Medicaid [id number] 2022 Medicaid [id number] 2022 Self-pay 2019 Unknown [id number] [id number]. 7.3.396688.315 1994 Unknown [id number] 2.16.840.1.228083.3.579.2. 173 1994 Unknown [id number] 2.16.840.1.941711.3.579.2. 173 1994 Unknown [id number] 2.16.840.1.147786.3.579.2. 173 1994 Unknown [id number] 2.16.840.1.186454.3.579.2. 593 1994 Unknown [id number] 2.16.840.1.156667.3.579.2. 593 1994 Unknown [id number] 2.16.840.1.826062.3.579.2. 593 1994 Unknown [id number] 2.16.840.1.210829.3.579.2. 593 1994 Unknown [id number] 2.16.840.1.737860.3.579.2. 593 1994 Unknown [id number] 2.16.840.1.075265.3.579.2. 593 1994 Unknown [id number] 2.16.840.1.018993.3.579.2. 175 1994 Unknown [id number] 2.16.840.1.949063.3.579.2. 1286 1994 Unknown [id number] 2.16.840.1.239153.3.579.2. 128 1994 Unknown [id number] 2.16.840.1.302443.3.579.2. 1286 1994 Unknown [id number] 2.16.840.1.834222.3.579.2. 1286 1994 Unknown [id number] 2.16.840.1.522170.3.579.2. 1286 1994 Unknown [id number] 2.16.840.1.290986.3.579.2. 1259 1994 Unknown [id number] 2.16.840.1.326796.3.579.2. 1259 1994 Unknown [id number] 2.16.840.1.498907.3.579.2. 1258 1994 Unknown [id number] 2.16.840.1.887218.3.579.2. 1258 1994 Unknown [id number] 2.16.840.1.504568.3.579.2. 1258 1994 Unknown [id number] 2.16.840.1.161795.3.579.2. 1258 1994 Unknown [id number] 2.16.840.1.828841.3.579.2. 1258 1994 Unknown [id number] 2.16.840.1.211026.3.579.2. 1258 1994 Unknown [id number] 2.16.840.1.759964.3.579.2. 1258 1994 Unknown [id number] 2.16.840.1.603312.3.579.2. 1258 1994 Unknown [id number] 2.16.840.1.866725.3.579.2. 1258 1994 Unknown [id number] 2.16.840.1.494853.3.579.2. 1258 1994 Unknown [id number] 2.16.840.1.124556.3.579.2. 1258 1994 Unknown [id number] 2.16.840.1.820230.3.579.2. 1259 1959 Private Health Insurance [id number] 1.2.840.334624.1.13.239.2. 7.3.839154.315 Private Health Insurance [facility] [id number] Unknown [id number] 2.16.840.1.880988.3.579.2. 531 Social History Date Type Detail Facility Start: 09-01-2020 End: 09-28-2020 Tobacco smoking status INIS Current every day smoker [facility] Phone: Start: 09-01-2020 End: 05-24-2023 Cigarettes smoked current (pack per day) - Reported [facility] Start: 09-01-2020 End: 07-03-2022 Tobacco use and exposure Never used [facility] Phone: Start: 09-01-2020 End: 09-28-2020 Alcohol intake Current drinker of alcohol (finding) [facility] Phone: Start: 12-23-2019 Alcohol Comment weekly [facility] Phone: Start: 1995 Sex Assigned At Not on file [facility] Phone: Start: 04-22-2021 End: 05-16-2021 Exposure to SARS-CoV-2 (event) Not sure [facility] Exposure to SARS-CoV -2 (event) Yes [facility] Start: 01-19-2021 End: 07-03-2022 Tobacco smoking status NHIS Ex-smoker [facility] Start: 02-11-2008 End: 11-19-2020 History of tobacco use Current smoker [facility] Phone: Start: 05-02-2021 End: 02-26-2023 Alcohol intake Ex-drinker (finding) [facility] Phone: Start: 08-17-2018 End: 07-03-2022 Sex Assigned At [facility] Start: 1995 Sex Assigned At Female [facility] Start: 02-11-2008 End: 02-11-2020 History of tobacco use [facility] of tobacco use Tobacco U se Types Packs/Day Years Used Date Smoking Tobacco: Former Cigarettes Quit: 2020 Vaping/E-cigarettes Smokeless Tobacco: Former Quit: 11/06/2020 [facility] Start: 02-05-2023 Tobacco use and exposure Former smokeless tobacco user [facility] End: 11-06-2020 History of tobacco use User of smokeless tobacco [facility] Frequency of Communication with Friends and Family More than three times a week [facility] Start: 08-17-2018 Education 12 [facility] Start: 04-08-2023 Alcohol Comment social, every other weekend [facility] Start: 10-31-2022 [facility] Within the last year , have you [...] Comment caffeine: 1-2 cups per day coffee [facility] Clinical Notes 12-04-2020 to 03-19-2023 HEIKE [...] of: HEIKE Meeks documented in this encounter [facility] 03-05-2023 History of Presen t illness Narrative Headache/epigastric pain/blurry vision/swelling? No Cramping/contractions? No Abnormal vaginal discharge? No Spotting or vaginal bleeding? No Loss of fluid like your water may have broken? No Recent ER visits or hospitalizations? Patient reports visit to [facility] approximately two weeks ago to r/o ROM [...] me to participate in [facility]. If there are any questions, please do not hesitate to call me. Sincerely, KAROLINE HOPSON MD documented in this encounter [facility] 02-24-2023 Miscellaneous Notes Incoming telephone call from patient with concerns of leakage of fluid. Patient called in and stated that she is Leaking clear fluid and has been. Deli Department Manager asked if she had spoken to her OB provider and she said that she had, but they told her that she is basically too early to be leaking any fluid. Deli Department Manager recommended patient present to the nearest emergency room to be evaluated. Patient verbalized understanding and had no further questions. documented in this encounter [facility] 02-24-2023 Telephone encounter Note Incoming telephone call from patient with concerns of leakage of fluid. Patient called in and stated that she is Leaking clear fluid and has been. Deli Department Manager asked if she had spoken to her OB provider and she said that she had, but they told her that she is basically too early to be leaking any fluid. Deli Department Manager recommended patient present to the nearest emergency room to be evaluated. Patient verbalized understanding and had no further questions. [facility] 02-07-2023 History of Presen t illness Narrative Headache/epigastric pain/blurry vision/swelling? Occasional headaches Cramping/contractions? No Abnormal vaginal discharge? No Spotting/vaginal bleeding? No Loss of fluid like your water may have broken? No Cats in the home? No Do you change the litter box? No Flu vaccine? No Genetic testing done this here or other office? Yes Have you been seen here at [facility] in a previous ? No Recent ER visits or hospitalizations? No Bring blood sugar log or meter with you today? (Please bring them with you for every visit at [facility]) N/A Traveled outside the country in [...] TESTS AND ULTRASOUND REPORTS: Referral records and [facility] chart were reviewed Pertinent Ultrasound [...] operators who are performing tests using either [employer] or [employer] App systems and is limited to laboratories that [...] repeat. Fact Sheet for Healthcare Providers: https://www.f da.gov/media/915716/download Fact Sheet for Patients: https://www.fda.gov/media/387609 /download HABITS: Patient activity no restrictions, diet [...] previously recommended threshold of 160/110. Reference: PMID: [id number]. Blood pressures do increase as progresses and [...] preeclampsia prevention as is recommended by the [place] [employer]ne[employer] Committee Opinion No. 743. [...] aspirin vs 10.3% no aspirin, p=0.45) (PMBID: 80158370). Given well-established benefits baby aspirin for the prevention of preeclampsia, I recommend initiating baby aspirin even in the setting of history of Joe-en-Y surgery. Micronutrient Dosing Recommendations: Calcium: recommend 1000-1200mg daily; if deficient, recommend 1800-50244 mg PO daily in divided doses Vitamin [...] sooner if clinically indicated Follow up in [facility] in 4 weeks for anatomy and clinic follow-up DISPOSITION: At this point the patient is in complete care of her lithographer helper. Patient does have ultrasound and office visit [...] procedures Referring and communicating with other health director critical care (not separately reported) Documenting clinical information in the electronic or other health record Tatiana Yap MD Maternal- Medicine [facility] [address] [place] [address] [facility], the CDC, and other organizations representing maternal and public health professionals recommend that , , and lactating people and those considering receive the COVID-19 vaccination. Vaccination is the best method to reduce maternal and complications of SARS-CoV-2 infection. This document was created with [employer] technology. Though I make every effort to review the dictation as it is transcribed, on occasion the spoken word can be misinterpreted by the technology leading to inappropriate words, phrases, or sentences. This note is addressed to the requesting provider as a consultation for clinical guidance. Specific medical abbreviations are occasionally used and those are generally approved by the [place]?Board of?Obstetrics and?Gynecology?as well as?Maddison hodgson abbreviations. The above plan of care was based solely on the diagnoses for which a consultation was requested. ?More frequent testing may be indicated based on her other medical/obstetrical conditions. The management of other or medical conditions is beyond the scope of requested consultation and will continue to be followed by the primary lithographer helper or primary care provider. Note to patient: [...] of the practitioner. documented in this encounter [facility] 10-12-2022 Evaluation note Encounter Date Diagnosis Assessment [...] take Sudafed and/or Mucinex for congestion. Take [id number] er Robitussin or Delsym for cough. Follow-up with your family physician if no improvement in 2 to 3 days. Off work tomorrow. Oct, Cough (ICD-10 - R05.9) Oct, Bronchitis (ICD-10 - J40) Acute bronchitis material was printed [facility] Other 10-19-2022 NotePatient Education Materials [id number] History of Present illness Narrative* Payal Richardson [...] and patient voices understanding [facility]: [phone]) 993-131604-07-2022 Hospital Discharge instructions* Instructions* Hannah Zavaleta RN - 05/17/2021 Discharge Instructions for Bariatric Surgery You had a Laparoscopic Sleeve Gastrectomy (39838) surgery to treat obesity. Recovery from this [...] scheduled appointment, please call the office at [phone]. Call Your Doctor If Any of the [...] sent through Care Everywhere. * Enoxaparin (Lovenox) ([place] Zealander) * Video: How to Give Yourself an Anticoagulant (Blood Thinner) Shot ([place] Zealander) documented in this [facility] Phone: [phone]) 986-479903-23-2022 Hospital Discharge instructions* Instructions* Kendal Wilhelm APRN [...] Day of Surgery/Procedure As a patient at [facility] you can expect quality medical and nursing care that is centered on your individual needs. Our goal is to make your surgical experience as comfortableas possible Directions to the Surgery Center The surgery Center at [facility] is located in the Emergency Room parking lot on [facility] or there is additional parking across the street. The address is [address] [place] [address]. Please check in at the Surgery Center [...] on the day of surgery please contact [phone] or [phone] If you have any other questions regarding your procedure/surgery please call your surgeon's office. documented in this [facility] Phone: 1(683) 548-866803-23-2022 History of Present illness Narrative* Eloise Chi [...] syndrome) Under care of team 05/02/2021 pcp-Dr MelgozaTkronj-vbvahfe-szzw visit april 2021 Patient was evaluated in PAT & anesthesia guidelines were applied. NPO guidelines, medication instructions and scheduled arrival time were reviewed with patient. Anesthesia contacted: no Medical or cardiac clearance ordered: no, medical clearance obtained. LAURA Garcia CNP 05/02/21 11:53 AM [facility]: [phone]) 253-312210-25-2021 Evaluation note* Encounter Date Diagnosis Assessment Notes [...] and rest, Tylenol/Motrin as directed, rx of [place] and Flonase as directed, cool mist humidifier, [...] Patient care instructions given in writting by [facility] At [facility] document [facility] Other Evaluation note* Diagnosis LYNN (obstructive sleep apnea) Obstructive sleep apnea (adult) (pediatric) documented in this encounter [facility] Phone: evaluation note* Diagnosis S/P laparoscopic sleeve gastrectomy- Primary Post-op pain Other acute postoperative pain documented in this encounter [facility] Phone: evaluation noteNo assessment information available [facility] Work Phone: Evaluation noteNo InformationNort Sist[employer] Other Evaluation note* Diagnosis Hypertension affecting in second trimester- Primary 16 weeks gestation of Dichorionic diamniotic twin in second trimester H/O gastric sleeve [facility] Diagnosis Hypertension affecting in second trimester 16 weeks gestation of Dichorionic diamniotic twin in second trimester [facility]* Diagnosis Hypertension affecting in second trimester- Primary Dichorionic diamniotic twin in second trimester [facility] Diagnosis History of sleeve gastrectomy- Primary History of induced hypertension [facility] Diagnosis Second trimester state, incidental Diabetes mellitus screening Screening for diabetes mellitus documented [facility] - Reported* Type Description Date Medical History METABOLIC SYNDROME Medical History SYNCOPE Medical History anxiety Surgical History WISDOM TEETH Surgical History TONSILECTOMY Surgical History ENDOSCOPY AND COLONSCOPY Surgical History C section Hospitalization History see above [facility] Other [facility] general Narrative - Reported* Type Description Date Medical History METABOLIC SYNDROME Medical History SYNCOPE Medical History anxiety Surgical History WISDOM TEETH Surgical History TONSILECTOMY Surgical History ENDOSCOPY AND COLONSCOPY Surgical History C section Surgical History gastric sleeve Hospitalization History see above [facility] Other [facility] general Narrative - Reported* Type Description Date Medical History METABOLIC SYNDROME Medical History SYNCOPE Medical History anxiety Surgical History WISDOM TEETH Surgical History TONSILECTOMY Surgical History ENDOSCOPY AND COLONSCOPY Surgical History C section Surgical History gastric sleeve Surgical History cholcystectomy 09/10/2022 Hospitalization History see above [facility] Other InstructionsNot on filedocumented in this encounter [facility] filedocumented in this encounter [facility]Not on filedocumented in this encounter [facility]ructionsNot on filedocumented in this encounter [facility]ructionsNot on filedocumented in this encounter [facility] for visit Narrative* Auth/Cert Specialty Diagnoses / Procedures Referred By Cristal rosen Referred To Contact Diagnoses Morbid obesity (HCC) Obstructive sleep apnea GERD (gastroesophageal reflux disease) MORBID OBESITY, OBSTRUCTIVE SLEEP APNEA, GERD Procedures DE LAP, JAY RESTRICT PROC, LONGITUDINAL GASTRECTOMY XI ROBOTIC LAPAROSCOPIC GASTRECTOMY SLEEVE , LIVER BIOPSY, EGD- GI SCHEDULED Patricia Mars DO [address] [facility] [address] [place] [address] [facility] [address] [place] [address] Referral ID Status Reason Start Date Expiration Date Visits Re quested Visits Authorized [id number] 1 1 [facility] Phone: Summary Purpose Family History No Family [...] Procedures Referred By Contact Referred To Contact [facility] Diagnoses LYNN (obstructive sleep apnea) Procedures Baseline Diagnostic Sleep Study Ike Moreno MD [address] [address] Specialty Diagnoses / Procedures Referred By Contac t Referred To Contact Diagnoses Hypertension affecting in second trimester 16 weeks gestation of Dichorionic diamniotic twin in second trimester Procedures ECG 12 lead Tatiana Yap MD [address] [place] [address] Referral ID Status Reason Start Date Expiration Date V isits Requested Visits Authorized [id number] Pending Review 02/07/2023 02/07/2024 1 1 Specialty Diagnoses / Procedures Referred By Contac t Referred To Contact Maternal and Medicine Diagnoses Hypertension affecting in second trimester Dichorionic diamniotic twin in second trimester Procedures US MFM with or without consult Karoline Hopson MD [address] [place] [address] [facility] [address] [place] [address] Referral ID Status Reason Start Date Expiration Date V isits Requested Visits Authorized [id number] Pending Review 03/05/2023 03/04/2024 1 1 Chief Complaint and Reason for Visit Chief Complaint Dysuria Additional Source Comments INFORMATION SOURCE (unrecogn ized section and content) DATE CREATED AUTHOR 07/31/2017 [facility] ical [facility] DATE CREATED AUTHOR AUTHOR'S ORGANIZ ATION 05/21/2021 [facility] DATE CREATED AUTHOR AUTHOR'S ORGANIZ ATION 12/03/2021 [facility] DATE CREATED AUTHOR AUTHOR'S ORGANIZ ATION 01/12/2022 [facility] DATE CREATED AUTHOR AUTHOR'S ORGANIZ ATION 02/11/[address] [facility] DATE CREATED AUTHOR AUTHOR'S ORGANIZ ATION 09/13/2022 [facility] DATE CREATED AUTHOR AUTHOR'S ORGANIZ ATION 02/09/2023 [facility] DATE CREATED AUTHOR AUTHOR'S ORGANIZ ATION 04/12/2023 [facility] DATE CREATED AUTHOR AUTHOR'S ORGANIZ ATION 06/21/2023 [facility] EPIC Reason for Visit (unrecogniz ed section and content) Status Reason Specialty Diagnoses / Procedures Referred By Contact Referred To Contact [facility] Diagnoses LYNN (obstructive sleep apnea) Procedures Baseline Diagnostic Sleep Study Ike Moreno MD [address] [facility] [address] [place] [address] Status Reason Specialty Diagnoses / Procedures Referre d By Contact Referred To Contact Diagnoses K21.9 GERD E66.9 OBESITY Procedures DE EGD TRANSORAL BIOPSY SINGLE/MULTIPLE EGD BIOPSY Patricia Mars DO [address] [facility] [address] [place] [address] [facility] Reason Comments twin HX C/S HX gastric sleeve HX PTD Reason Comments Dichorionic Diamniotic Twin Hypertension Reason Comments Routine Visit Care Teams (unrecognized sec tion and content) Pattern Fitter Relationship Specialty Start Date End Date Stephane Martin MD [address] [place] [address] PCP - General 05/17/20 Pattern Fitter Relationship Specialty Start Date End Date Stephane Martin MD [address] [place] [address] PCP - General 05/17/20 Team Status: Inactive Member Role Status Sven Shields APRN Attending Provider Active Pattern Fitter Relationship Specialty Start Date End Date Margot Toure DO [address] [place] [facility] [place] [address] PCP - General Family Medicine 01/03/23 Pattern Fitter Relationship Specialty Start Date End Date Margot Toure DO [address] [place] [facility] [place] [address] PCP - General Family Medicine 01/03/23 Pattern Fitter Relationship Specialty Start Date End Date Margot Toure DO [address] [place] [facility] [place] [address] PCP - General Family Medicine 01/03/23 Pattern Fitter Relationship Specialty Start Date End Date Margot Toure DO [address] [place] [facility] [place] [address] PCP - General Family Medicine 01/03/23 Pattern Fitter Relationship Specialty Start Date End Date Margot Toure DO [address] [place] [facility] [place] [address] PCP - General Family Medicine 01/03/23 Pattern Fitter Relationship Specialty Start Date End Date Margot Toure DO [address] [place] [facility] [place] [address] PCP - General Family Medicine 01/03/23 Pattern Fitter Relationship Specialty Start Date End Date Margot Toure DO [address] [place] [address] PCP - General Family Medicine 07/01/22 Pattern Fitter Relationship Specialty Start Date End Date Margot Toure DO [address] [place] [address] PCP - General Family Medicine 07/01/22 Ordered [...] (Given - Provider: Sharmin Sam APRN - TRADER) ceFAZolin (ANCEF) 3000 mg in sterile water [...] (NoRateChange - Provider: Sharmin Sam APRN - TRADER)0856 (Anesthesia Volume Adjustment - Provider: Sharmin Sam APRN - TRADER) 1631 (Stopped - Provider: Hannah Zavaleta RN) [...] to back table, 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 [employer] [facility]. provides no warranty or guarantee of the accuracy or completeness of information in this document.
== END 2023-06-26 19:16 | disposition home or self-care (01) ==
LOC: LAB 19:15
PROVIDERS: Visit Provider Obstetrics & Gynecology
DX: Z34.93 Encounter for supervision of normal pregnancy, unspecified, third trimester (principal)
CPT/HCPCS: 87081

== ENCOUNTER 2023-06-30 11:04 | Outpatient (OUT) | payer MEDICAID, SELFPAY ==
--- NOTE | 2023-06-30 19:07 | US_ITS ---
[address] [address] Patient Name: JADEN VELÁSQUEZ MRN: [facility]:[id number] date: 1995 Sex: F Assigned Patient Location: [facility] Current Patient Location: Accession/Order Number: [id number] Exam Date: 06/30/2023 19:15 Report Date: 07/01/2023 07:20 At the request of: ODILON ARNETT Procedure: US OB BPP w non-stress EXAMINATION: US OB BPP w non-stress, US OB >= 14 wk fetus add gest HISTORY: DICHORIONIC DIAMNIOTIC TWIN 030.043 COMPARISON: No relevant comparison available. TECHNIQUE: Ultrasound biophysical profile was performed in the radiology department. BREATHING MOVEMENTS: 2.0/2.0 GROSS BODY MOVEMENTS: 2.0/2.0 TONE: 2.0/2.0 QUALITATIVE AMNIOTIC FLUID VOLUME: 2.0 /2.0 PRESENTATION: Cephalic / transverse HEART RATE: 141 bpm / 138 bpm. AMNIOTIC FLUID VOLUME: 6.7 x 1.9 cm pocket / 7.7 x 4.3 cm pocket GESTATIONAL AGE: 36 weeks 4 days CONCLUSION: 1. Baby 1 total biophysical profile score 8.0. 2. Baby 2 total biophysical profile score 8.0 Electronically authenticated by: COURTNEY LUGO Date: 07/01/2023 07:20
--- NOTE | 2023-06-30 19:08 | US_ITS ---
[address] [address] Patient Name: JADEN VELÁSQUEZ MRN: [facility]:[id number] date: 1995 Sex: F Assigned Patient Location: [facility] Current Patient Location: Accession/Order Number: [id number] Exam Date: 06/30/2023 19:15 Report Date: 07/01/2023 07:20 At the request of: ODILON ARNETT Procedure: US OB >= 14 wk fetus add gest EXAMINATION: US OB BPP w non-stress, US OB >= 14 wk fetus add gest HISTORY: DICHORIONIC DIAMNIOTIC TWIN 030.043 COMPARISON: No relevant comparison available. TECHNIQUE: Ultrasound biophysical profile was performed in the radiology department. BREATHING MOVEMENTS: 2.0/2.0 GROSS BODY MOVEMENTS: 2.0/2.0 TONE: 2.0/2.0 QUALITATIVE AMNIOTIC FLUID VOLUME: 2.0 /2.0 PRESENTATION: Cephalic / transverse HEART RATE: 141 bpm / 138 bpm. AMNIOTIC FLUID VOLUME: 6.7 x 1.9 cm pocket / 7.7 x 4.3 cm pocket GESTATIONAL AGE: 36 weeks 4 days CONCLUSION: 1. Baby 1 total biophysical profile score 8.0. 2. Baby 2 total biophysical profile score 8.0 Electronically authenticated by: COURTNEY LUGO Date: 07/01/2023 07:20
[2023-06-30 20:19] VITALS: TEMP 36.8
[2023-06-30 20:20] VITALS: BP 121/76; PULSE 90
== END 2023-06-30 21:05 | disposition home or self-care (01) ==
LOC: US 11:04 → FBC 19:04
PROVIDERS: Visit Provider Obstetrics & Gynecology
DX: O30.043 Twin pregnancy, dichorionic/diamniotic, third trimester (principal); Z3A.36 36 weeks gestation of pregnancy
CPT/HCPCS: 59025; 76810; 76818

== ENCOUNTER 2023-07-03 06:45 | Inpatient (IN) | payer MEDICAID, SELFPAY ==
[2023-07-03] VITALS (34 sets, daily range): BP systolic 103–144; BP diastolic 63–80; PULSE 68–97; TEMP 36.6–37.2; O2SAT 94–98
--- OUTSIDE RECORDS SUMMARY | 2023-07-03 06:48 | XMS_ITS | CCD ---
Author Organization [facility] ion [facility] Care Team Providers Care Professor Of Biological Sciences Name Role Phone Neo Anderson Unavailable Unavailable Neo Anderson Unavailable Unavailable Jose Maria Santoyo MD, [facility] Primary Care Provider DOC OKEEFE Referring Unavailable JOSE MARIA SANTOYO [facility] Primary Care Unavailabl e DOC OKEEFE E Referring Unavailable JOSE MARIA SANTOYO [facility] Primary Care Unavailabl e IKE ORTIZ Referring Unavailable JOSE MARIA SANTOYO, [facility] Primary Care Unavailabl e Ale Harris Unavailable [...] Yaw DO, Margot G Primary Care Provider [phone] YAW, MARGOT G Referring Unavailable YAW, MARGOT [...] G Attending Unavailable ZACARIAS, NIGEL Attending Unavailable ALBERTO, ELOISE Attending Unavailable ZACARIAS, NIGEL Attending Unavailable ALBERTO, ELOISE Attending Unavailable ZACARIAS, NIGEL Attending Unavailable ZACARIAS, NIGEL Attending Unavailable YAW, MARGOT G Attending Unavailable Allergies Allergy Classification Reported Allergen(s) Allergy Type Date of Onset Reaction(s) Facility (11 sources) Ibuprofen; Translations: [IBUPROFEN] Drug Allergy 09-19-2021 [facility] Medications Current Medications Medication Drug [...] 30 mg oral tablet (1 source) Uncompetitive T-mkhpsj-G-aspartate Receptor Antagonist, Sigma-1 Agonist Start: 2020 take 1 tablet by mouth every eight hours [place] DMT 30-30 MG 1 tablet Orally every [...] Iron (2 sources) Iron Active lactobacillus acidophilus [id number] unt / pectin 100 mg oral tablet [...] extended release oral tablet (2 sources) Uncompetitive J-sahzub-B-asparta te Receptor Antagonist, Sigma-1 Agonist Start: 01-14-2022 [...] iron low; Translations: [Iron deficiency] Onset: 09-01-2020 1 Episodic Other gastrointestinal disorders (13 sources) History [...] Test Name Value Interpretation Reference Range Facility [facility] UA (CLEAN/CATCH) MANAGER UTILITY/LISA RO IF IND.on 03-24-2023 BILIRUBIN URINE Negative NEGATIVE [facility] BLOOD URINE Negative NEGATIVE [facility] Clarity (U) CLEAR CLEAR [facility] Color (U) YELLOW YELLOW [facility] GLUCOSE URINE UA Negative NEGATIVE mg/dL [facility] Interpretation and review of laboratory results Abnormal [facility] Ketones Ql (U) TRACE Abnormal NEGATIVE mg/dL [facility] Leukocyte esterase Test strip Ql (U) Negative NEGATIVE [facility] NITRITE URINE Negative NEGATIVE [facility] Health care pH (U) 6.0 [pH] 5.0 - 9.0 [facility] PROTEIN URINE TRACE NEG/TRACE mg/dL [facility] SPECIFIC GRAVITY URINE >=1.030 Abnormal 1.005 - 1.025 [facility] URINE MICROSCOPIC INDICATED NO [facility] UROBILINOGEN URINE 0.2 EU/dL 0.2 - 1.0 EU/dL [facility] e Urinalysis macro (dipstick) panel (U)on 03-19-2023 Bilirubin, UA Negative Negative - 4(70) +++ mg/dL [facility] Blood, UA Negative Negative - 50 Krzysztof/mcL [facility] Clarity, UA Clear [facility] Color, UA Yellow [facility] e Glucose, UA Negative Negative - 2000(110) ++++ mg/dL [facility] Interpretation and review of laboratory results Abnormal [facility] re Ketones, UA Negative Negative - 160(16) ++++ mg/dL [facility] Leukocytes, UA Negative Negative - 500+++ Mckayla/mcL [facility] Nitrite, UA Negative Negative - Positive [facility] pH, UA 6.0 5 - 9 [facility] Protein, UA Positive Negative - 1999(20) ++++ mg/dL [facility] Spec Grav, UA 1.030 1 - 1.03 [facility] Urobilinogen, UA 0.2 0.2 - 12 mg/dL [facility] Healthcar e CBC without diffon External Hematocrit Hct 33.7 [facility] Comment on above: See attached External Hemoglobin 10.9 [facility] Comment on above: See attached External MCH 29.0 [facility] Comment on above: See attached External Mchc 32.3 [facility] Comment on above: See attached External Mcv 89.6 [facility] Comment on above: See attached External Mpv 9.7 [facility] Comment on above: See attached External Platelet Count 268 [facility] Comment on above: See attached External Rbc Count 3.76 [facility] Comment on above: See attached External Rdw 13.4 [facility] Comment on above: See attached External Wbc Count 9.5 [facility] Comment on above: See attached [facility] Urine protein creatinine rat ioon 02-27-2023 Protein/Creatinine (U) [Mass ratio] 0.10 mg/g [facility] Comment on above: see attached [facility] Ultrasound - Officeon 2022 Radiology Study observation (narrative) [facility] HIV 1&2 AB/AG Screen (P24 AG )on 12-20-2022 HIV 1&2 AB/AG Non-Reactive [facility] Hepatitis B surface antigeno n 12-20-2022 Hepatitis B Surface Antigen Negative [facility] No Panel Informationon 12-20 [facility] Rubella IGG immune statuson 12-20-2022 Rubella immune IgG 1.96 [facility] Syphilis Total(Unknown Syphi lis Status)on 12-20-2022 Syphilis Non-Reactive [facility] Ultrasound - Officeon 2022 SEE SCANNED REPORt MANUAL LY TRANSCRIBED RESULTS [facility] COVID + FLU Quick Testingon 10-12-2022 SARS-CoV-2 (COVID-19) RNA BECCA+probe Ql (Unsp spec) negtaive [employer] [facility] Other COVID + FLU Quick Testing Negative [employer] [facility] Other Basic Metabolic Profon 09-11 Anion gap [Moles/Vol] 9 mmol/L Normal 9-17 [facility] Comment on above: Performed By: #### B MP, CBC, PT #### [employer] [address] [place] [phone] Manager Labor Delivery: Anthony Aguilar MD Calcium [Mass/Vol] 8.8 mg/dL Normal 8.6-10.4 [facility] Comment on above: Performed By: #### B MP, CBC, PT #### [employer] [address] [place] [phone] Manager Labor Delivery: Anthony Aguilar MD Chloride [Moles/Vol] 106 mmol/L Normal 98-107 [facility] Comment on above: Performed By: #### B MP, CBC, PT #### [employer] [address] [place] [phone] Manager Labor Delivery: Anthony Aguilar MD CO2 [Moles/Vol] 23 mmol/L Normal 20-31 [facility] Comment on above: Performed By: #### B FIFI, CBC, PT #### [facility] [address] [place] [address] 69384 Manager Labor Delivery: Anthony Aguilar MD Creatinine [Mass/Vol] 0.7 mg/dL Normal 0.5-0.9 [facility] Comment on above: Performed By: #### B FIFI, CBC, PT #### [facility] [employer] [address] [place] [address] [phone] Manager Labor Delivery: Anthony Aguilar MD GFR/1.73 sq M.predicted among non-blacks MDRD (S/P/Bld) [Vol rate/Area] mL/min/{1.73_m2} Normal >60 [facility] Comment on above: Result Comment: These results [...] By: #### B FIFI, CBC, PT #### [facility] [employer] [address] [place] [address] [phone] Manager Labor Delivery: Anthony Aguilar MD Glucose [Mass/Vol] 79 mg/dL Normal 70-99 [facility] Comment on above: Performed By: #### B MP, CBC, PT #### [facility] [employer] [address] [place] [phone] Manager Labor Delivery: Anthony Aguilar MD Potassium [Moles/Vol] 4.1 mmol/L Normal 3.7-5.3 [facility] Comment on above: Performed By: #### B FIFI, CBC, PT #### [facility] [address] [place] [address] Manager Labor Delivery: Anthony Aguilar MD Sodium [Moles/Vol] 138 mmol/L Normal 135-144 [facility] Comment on above: Performed By: #### B MP, CBC, PT #### [facility] [address] [place] [address] [phone] Manager Labor Delivery: Anthony Aguilar MD Urea nitrogen [Mass/Vol] 11 mg/dL Normal 6-20 [facility] Comment on above: Performed By: #### B MP, CBC, PT #### [facility] [address] [place] [address] 23072 Manager Labor Delivery: Anthony Aguilar MD CBCon 09-11-2022 Erythrocyte distribution width (RBC) [Ratio] 13.2 % Normal 11.8-14.4 [facility] Comment on above: Performed By: #### B MP, CBC, PT #### [facility] [employer] [address] [place] [phone] Manager Labor Delivery: Anthony Aguilar MD Hematocrit (Bld) [Volume fraction] 41.6 % Normal 36.3-47.1 [facility] Comment on above: Performed By: #### B MP, CBC, PT #### [facility] [address] [place] [address] 59984 Manager Labor Delivery: Anthony Aguilar MD Hemoglobin (Bld) [Mass/Vol] 13.3 g/dL Normal 11.9-15.1 [facility] Comment on above: Performed By: #### B MP, CBC, PT #### [facility] [address] [place] [phone] Manager Labor Delivery: Anthony Aguilar MD MCH (RBC) [Entitic mass] 28.3 pg Normal 25.2-33.5 [facility] Comment on above: Performed By: #### B MP, CBC, PT #### [facility] [employer] [address] [place] [phone] Manager Labor Delivery: Anthony Aguilar MD MCHC (RBC) [Mass/Vol] 32.0 g/dL Normal 28.4-34.8 [facility] Comment on above: Performed By: #### B MP, CBC, PT #### [address] [address] Manager Labor Delivery: Anthony Aguilar MD MCV (RBC) [Entitic vol] 88.5 fL Normal 82.6-102.9 [facility] Comment on above: Performed By: #### B MP, CBC, PT #### [address] [address] Manager Labor Delivery: Anthony Aguilar MD NRBC Automated 0.0 per 100 WBC Normal 0.0 [facility] Comment on above: Performed By: #### B MP, CBC, PT #### [address] [phone] Manager Labor Delivery: Anthony Aguilar MD Platelet mean volume (Bld) [Entitic vol] 9.7 fL Normal 8.1-13.5 [facility] Comment on above: Performed By: #### B MP, CBC, PT #### [address] [address] Manager Labor Delivery: Anthony Aguilar MD Platelets (Bld) [#/Vol] 276 10*3/uL Normal 138-453 [facility] Comment on above: Performed By: #### B MP, CBC, PT #### [address] [id number] Manager Labor Delivery: Anthony Aguilar MD RBC (Bld) [#/Vol] 4.70 10*6/uL Normal 3.95-5.11 [facility] Comment on above: Performed By: #### B MP, CBC, PT #### [address] [address] Manager Labor Delivery: Anthony Aguilar MD WBC (Bld) [#/Vol] 7.4 10*3/uL Normal 3.5-11.3 [facility] Comment on above: Performed By: #### B MP, CBC, PT #### [facility] [employer] [facility] [place], [place] [phone] Manager Labor Delivery: Anthony Aguilar MD PTon 09-11-2022 INR Coag (PPP) [Relative time] 1.0 {INR} Normal [facility] Comment on above: Result Comment: Therapeutic Range: Moderate Anticoagulant Intensity: INR = 2.0-3.0 High Anticoagulant Intensity: INR = 2.5-3.5 Performed By: #### B MP, CBC, PT #### [facility] [employer] [facility] [place], [place] [phone] Manager Labor Delivery: Anthony Aguilar MD PT Coag (PPP) [Time] 12.9 s Normal 11.7-14.9 [facility] Comment on above: Performed By: #### B MP, CBC, PT #### [facility] [employer] [address] [place] [address] [phone] Manager Labor Delivery: Anthony Aguilar MD Surgical Pathologyon 023 Surgical Pathology (NOTE) Path Number: [id number] -- Diagnosis -- GALLBLADDER, CHOLECYSTECTOMY: -CHRONIC CHOLECYSTITIS [...] lesions or periductal lymph nodes are identified. Deputy Director Of Nursing sections 1c. tm Microscopic Description Microscopic examination performed. Processing Lab: [address] [phone] Interpretation Performed at [address] [phone] SURGICAL PATHOLOGY CONSULTATION Patient Name: FINA VELÁSQUEZ [facility] Rec: [id number] [facility] [employer] ANATOMIC PATHOLOGY [address] [place] [phone] Normal [facility] Urine Cultureon 02-08-2022 Bacteria identified Cx Nom (U) Reason for Exam Dysuria Urine ORGANISM: Escherichia coli (O:ESCCOL) [place] Count >100,000 Aerobic LISA Charge (NMIC56) ---- [...] RESISTANT TO ALL B-LACTAM DRUGS. PERFORMED BY: [place] [address] PATHOLOGIST SSN/SSBN ASSISTANT NAVIGATOR SAMIRA WEN M.D. [facility] Comment on above: Performed By: #### C UU #### [address] VC CONSULT FOLLOWUPon 2021 VC CONSULT FOLLOWUP Patient: FINA VELÁSQUEZ Exam Date: 01/08/2022 : 1995 Gender:F Ordering : DR JAMEEL BURGOS M.D. Admission #: [id number] Family : Order #: [id number] CLICK HERE TO VIEW EXAM RADIOLOGY REPORT [...] Hinton M.D. on 01/08/2022 at 10:10 [facility] VC EXT VENOUS RT LIMITEDon 1 03-10-2021 VC EXT VENOUS RT LIMITED Patient: FINA VELÁSQUEZ Exam Date: 01/08/2022 : 1995 Gender:F Ordering : DR JAMEEL BURGOS M.D. Admission #: [id number] Family : Order #: [id number] CLICK HERE TO VIEW EXAM RADIOLOGY REPORT [...] M.D. on 01/08/2022 at 10:05 Normal [facility] VC ENDOVENOUS ABL 1ST V RTon 12-31-2021 VC ENDOVENOUS ABL 1ST V RT Patient: FINA VELÁSQUEZ Exam Date: 12/31/2021 : 1995 Gender:F Ordering : DR JAMEEL BURGOS M.D. Admission #: [id number] Family : Order #: [id number] CLICK HERE TO VIEW EXAM RADIOLOGY REPORT [...] Burgos MD on 12/31/2021 at 11:06 [facility] ED Clinical Summaryon 2021 ED Clinical Summary [facility] ? Urgent Care [address] [place] [address] Clinical Summary PERSON INFORMATION Name: VERNON VELÁSQUEZ Age: 26 Years Sex: FEMALE : 1995 MRN: Acct#: Visit Reason: OTTERBEIN PHYSICAL Arrival: 11/28/2021 10:39:56 Discharge: 11/28/2021 10:59:00 LOS: 000 00:20 Check In: 11/28/2021 10:39:56 Checkout: 11/28/2021 10:59:00 Address: [address] [place] [address] PCP: Provider, None PROVIDER INFORMATION VITALS INFORMATION Vital Sign Triage Latest Temperature Tympanic Temperature Temporal Artery Pulse Rate O2 Sat Respiratory Rate Blood Pressure / / MEDICAL INFORMATION Medications Given: Allergy Information: No known allergies PHYSICIAN DOCUMENTATION DISCHARGE INFORMATION: Discharge Disposition: Eloped Discharge Location: PATIENT EDUCATION INFORMATION Instructions: Follow-Up: DIAGNOSIS: Patient Understands: Comment: Normal [facility] ED Patient Summaryon 022 ED Patient Summary [facility] ? Urgent Care [address] [place] [address] PATIENT DISCHARGE INSTRUCTIONS Patient Information Name: VERNON VELÁSQUEZ Age: 26 Years Date of : 1995 Reason For Visit: OTTERBEIN PHYSICAL Arrival Time: 11/28/2021 10:39:56 Primary Care Physician: Provider, None Attending Physician: Nuno Bradshaw Comment: Patient Education Medication Information: The exam and treatment you received today in the [facility] were for an urgent problem and are not intended as complete care. It is important for you to follow up with a doctor, nurse practitioner, or physician?s administrative assistant office manager for ongoing care. If your [...] so we can reach you if necessary. [facility] Emergency Department has provided you with a complete list of medications post discharge. Please inform your rice drier operator/provider of your visit and for further [...] for Disease Control and Prevention October 2013 [facility] VC CONSULT FOLLOWUPon 2021 VC CONSULT FOLLOWUP Patient: FINA VELÁSQUEZ Exam Date: 11/28/2021 : 1995 Gender:F Ordering : DR JAMEEL BURGOS M.D. Admission #: [id number] Family : Order #: [id number] CLICK HERE TO VIEW EXAM RADIOLOGY REPORT [...] Courtney Hinton M.D. on 11/28/2021 at 10:04 [facility] VC EXT VENOUS LT LIMITEDon 1 VC EXT VENOUS LT LIMITED Patient: FINA VELÁSQUEZ Exam Date: 11/28/2021 : 1995 Gender:F Ordering : DR JAMEEL BURGOS M.D. Admission #: [id number] Family : Order #: [id number] CLICK HERE TO VIEW EXAM RADIOLOGY REPORT [...] Hinton M.D. on 11/28/2021 at 09:45 [facility] VC ENDOVENOUS ABL 1ST V LTon 11-22-2021 VC ENDOVENOUS ABL 1ST V LT Patient: FINA VELÁSQUEZAshley Exam Date: 11/22/2021 : 1995 Gender:F Ordering : DR JAMEEL BURGOS M.D. Admission #: [id number] Family : Order #: [id number] CLICK HERE TO VIEW EXAM RADIOLOGY REPORT PROCEDURE: VEIN CENTER ENDOVENOUS ABLATION FIRST VEIN LEFT GREAT SAPHENOUS VEIN COMPARISON: VC VENOUS REFLUX JOVANA LMT, 10/17/2021. INDICATIONS: Pain co-occurrent and due to varicose veins of bilateral legs I83.813 OPERATIVE REPORT: The risks and benefits of the procedure had been previously discussed, and were rediscussed at length. Informed written consent was obtained by ms and Christopher villar. Time out procedure was [...] Jameel Burgos MD on 11/22/2021 at 09:04 [facility] VC COMP CONSULTATIONon 10-17 VC COMP CONSULTATION Patient: FINA VELÁSQUEZ Exam Date: 10/17/2021 : 1995 Gender:F Ordering : DR JAMEEL BURGOS M.D. Admission #: [id number] Family : Order #: [id number] CLICK HERE TO VIEW EXAM RADIOLOGY REPORT [...] 10/17/2021 at 12:46 Normal [facility] Basic Metabolic Panelon Anion gap [Moles/Vol] 8 mmol/L Low 9 - 17 mmol/L [employer] Calcium [Mass/Vol] 8.6 mg/dL 8.6 - 10. 4 mg/dL [facility] Chloride [Moles/Vol] 106 mmol/L 98 - 107 mmol/L [facility] CO2 [Moles/Vol] 23 mmol/L 20 - 31 mmol/L [facility] Creatinine [Mass/Vol] 0.67 mg/dL 0.50 - 0.90 mg/dL [facility] GFR >60 >60 mL/min [facility] GFR Non- >60 >60 mL/min [employer] GFR/1.73 sq M.predicted MDRD (S/P/Bld) [Vol rate/Area] [facility] Comment on above: Average GFR for 20-2 9 years old: 116 mL/min/1.73sq m Chronic Kidney Disease: <60 mL/min/1.73sq m Kidney failure: <15 mL/min/1.73sq m eGFR calculated using average adult body mass. Additional eGFR calculator available at: http://www.[employer]/multiple_crcl_2011.htm Glucose [Mass/Vol] 83 mg/dL 70 - 99 mg/dL [facility] [employer] Interpretation and review of laboratory results Abnormal [facility] Potassium [Moles/Vol] 3.9 mmol/L 3.7 - 5.3 mmol/L [facility] Sodium [Moles/Vol] 137 mmol/L 135 - 144 mmol/L [facility] Urea nitrogen (BldV) [Mass/Vol] 7 mg/dL 6 - 20 mg/dL [employer] CBCon 05-17-2021 Hematocrit (Bld) [Volume fraction] 34.4 % Low 36.3 - 47.1 % [facility] Hemoglobin.gastroin testinal spec 1 Ql (Stl) 11.0 g/dL Low 11.9 - 15.1 g/dL [facility] Interpretation and review of laboratory results Abnormal [facility] MCH (RBC) [Entitic mass] 27.2 pg 25.2 - 33.5 pg [facility] MCHC (RBC) [Mass/Vol] 32.0 g/dL 28.4 - 34.8 g/dL [facility] MCV (RBC) [Entitic vol] 85.1 fL 82.6 - 102.9 fL [facility] NRBC Automated 0.0 0.0 per 100 WBC [facility] Platelet distribution width (Bld) [Ratio] 14.1 % 11.8 - 14.4 % [facility] Platelet mean volume (Bld) [Entitic vol] 10.1 fL 8.1 - 13.5 fL [facility] Platelets (Bld) [#/Vol] 302 10*3/uL [facility] RBC (Bld) [#/Vol] 4.04 10*6/uL 3.95 - 5.1 1 m/uL [facility] WBC (Bld) [#/Vol] 13.7 10*3/uL High [facility] SURGICAL PATHOLOGY REPORTon 05-17-2021 Surgical Pathology Report [...] The mucosa is arranged in the usual pink-rois rugal folds with no lesions identified. No lymph nodes are identified in either the attached adipose tissue or the separate 4.0 x 2.0 x 0.5 cm piece of adipose tissue. Deputy Director Of Nursing sections 1cs. tm Microscopic Description 1 H&E reviewed. Microscopic examination performed. SURGICAL PATHOLOGY CONSULTATION Patient Name: FINA VELÁSQUEZ [facility] Rec: [id number] Path Number: [id number] [facility] [employer] ANATOMIC PATHOLOGY [address] [place] [phone] [facility] Basic Metabolic Panelon 04-0 Anion gap [Moles/Vol] 10 mmol/L 9 - 17 mmol/L [facility] Calcium [Mass/Vol] 8.7 mg/dL 8.6 - 10. 4 mg/dL [employer] [facility] [employer] [facility] Chloride [Moles/Vol] 105 mmol/L 98 - 107 mmol/L [facility] CO2 [Moles/Vol] 23 mmol/L 20 - 31 mmol/L [facility] Creatinine [Mass/Vol] 0.75 mg/dL 0.50 - 0.90 mg/dL [facility] GFR >60 >60 mL/min [employer] [facility] GFR Non- >60 >60 mL/min [facility] GFR/1.73 sq M.predicted MDRD (S/P/Bld) [Vol rate/Area] [facility] [employer] Comment on above: Average GFR for 20-2 9 years old: 116 mL/min/1.73sq m Chronic Kidney Disease: <60 mL/min/1.73sq m Kidney failure: <15 mL/min/1.73sq m eGFR calculated using average adult body mass. Additional eGFR calculator available at: http://www.[employer]/multiple_crcl_2012.htm Glucose [Mass/Vol] 132 mg/dL High 70 - 99 mg/dL [facility] [employer] [facility] Interpretation and review of laboratory results Abnormal [employer] Potassium [Moles/Vol] 3.5 mmol/L Low 3.7 - 5.3 mmol/L [employer] Sodium [Moles/Vol] 138 mmol/L 135 - 144 mmol/L [employer] Urea nitrogen (BldV) [Mass/Vol] 10 mg/dL 6 - 20 mg/dL [facility] CBC without Diffon Hematocrit (Bld) [Volume fraction] 38.8 % 36.3 - 47.1 % [employer] Hemoglobin.gastroin testinal spec 1 Ql (Stl) 12.6 g/dL 11.9 - 15.1 g/dL [facility] Interpretation and review of laboratory results Abnormal [facility] MCH (RBC) [Entitic mass] 27.2 pg 25.2 - 33.5 pg [facility] MCHC (RBC) [Mass/Vol] 32.5 g/dL 28.4 - 34.8 g/dL [facility] MCV (RBC) [Entitic vol] 83.8 fL 82.6 - 102.9 fL [facility] NRBC Automated 0.0 0.0 per 100 WBC [facility] Platelet distribution width (Bld) [Ratio] 13.9 % 11.8 - 14.4 % [facility] Platelet mean volume (Bld) [Entitic vol] 9.8 fL 8.1 - 13.5 fL [facility] Platelets (Bld) [#/Vol] 340 10*3/uL [facility] RBC (Bld) [#/Vol] 4.63 10*6/uL 3.95 - 5.1 1 m/uL [facility] WBC (Bld) [#/Vol] 15.0 10*3/uL High [facility] POC Glucose Fingerstickon Glucose [Mass/Vol] 77 mg/dL 65 - 105 mg/dL [facility] POCT urine pregnancyon 05-16 Beta HCG ( test) Ql (U) Negative NEGATIVE [facility] Comment on above: Specimens with hCG l evels near the threshold of the test (25 mIU/mL) may give a negative or indeterminate result. In such cases, another test should be performed with a new specimen in 48-72 hours. If early is suspected clinically in this setting, correlation with quantitative serum b-hCG level is suggested. [facility] [id number] 05-15-2021 SARS-CoV-2 (COVID-19) RNA BECCA+probe Ql (Unsp spec) Normal [facility] Comment on above: Performed By: #### C OVID #### [facility] [employer] [address] [place] [address] Manager Labor Delivery: Anthony Aguilar MD [facility] [address] [place] [address] Manager Labor Delivery: Jameel Lawler MD SARS-CoV-2 (COVID-19) RNA BECCA+probe Ql (Unsp spec) Not detected Normal [facility] [facility] Comment on above: Result Comment: The specimen is NEGATIVE for SARS-CoV-2, the novel coronavirus associated with COVID-19. A negative result does not rule out COVID-19. Lucrecia SARS-CoV-2 for use on the Lucrecia [employer] Mobile0/8800 Systems is a real-time RT-PCR test intended [...] this assay. Fact sheet for Healthcare Providers: https://www.fda.gov/media/693047/download Fact sheet for Patients: https://www.fda.gov/media/042748/download METHODOLOGY: RT-PCR Performed By: #### C OVID #### [address] [id number] Manager Labor Delivery: Anthony Aguilar MD [facility] [address] [place] [address] [place] [address] Manager Labor Delivery: Jameel Lawelr MD [id number] 05-14-2021 SARS-CoV-2 (COVID-19) RNA BECCA+probe Ql (Unsp spec) .NASOPHARYNGEAL SWAB Normal [facility] Comment on above: Performed By: #### C OVID #### [address] [address] Manager Labor Delivery: Anthony Aguilar MD [facility] [address] [place] [address] [place] [address] Manager Labor Delivery: Jameel Lawler MD [facility], Blood 05-05-2021 8-VJ-Vujwydor <2 ng/mL Tr[facility] [employer] AB [facility] Cotinine <2 ng/mL [facility] Nicotine <2 ng/mL [facility] Comment on above: (NOTE) Consistent with abstinence [...] developed and its performance characteristics determined by [facility]. It has not been cleared or approved by the US Food and Drug Administration. This test was performed in a CLIA certified laboratory and is intended for clinical purposes. Performed By: [facility] [address] [place] [id number] Metal Cleaner: Yara Rodriguez MD [facility] EKG 12 LeadOrdered By: Diaz Conway on 05-03-2021 Atrial Rate 72 BPM [facility] Work Phone: P [place] 45 degrees [employer] Phone: P-R Interval 142 ms [facility] Work Phone: Q-T Interval 376 ms [facility] Work Phone: QRS Duration 100 ms [facility] Work Phone: QTc Calculation (Bazett) 411 ms [employer] Phone: R [place] 22 degrees [employer] Phone: T [place] 32 degrees [employer] Phone: Ventricular Rate 72 BPM [employer] Work Phone: [facility] Work Phone: EKG 12 Leadon 05-03-2021 Normal sinus rhythm Normal ECG No previous ECGs available [facility] Diaz Elias MD - 05/03/2021 Normal sinus rhythm Normal ECG No previous ECGs available [facility] Work Phone: APTTon 05-02-2021 aPTT Coag (Bld) [Time] 25.0 s [facility] Comment on above: IV Heparin Therapy Range: 48.6-77.8 Basic Metabolic Panelon 04-11 Anion gap [Moles/Vol] 15 mmol/L 9 - 17 mmol/L [facility] Calcium [Mass/Vol] 9.8 mg/dL 8.6 - 10. 4 mg/dL [facility] Chloride [Moles/Vol] 102 mmol/L 98 - 107 mmol/L [facility] CO2 [Moles/Vol] 21 mmol/L 20 - 31 mmol/L [facility] Creatinine [Mass/Vol] 0.55 mg/dL 0.50 - 0.90 mg/dL [facility] GFR >60 >60 mL/min [facility] GFR Non- >60 >60 mL/min [facility] GFR/1.73 sq M.predicted MDRD (S/P/Bld) [Vol rate/Area] [facility] Comment on above: Average GFR for 20-2 9 years old: 116 mL/min/1.73sq m Chronic Kidney Disease: <60 mL/min/1.73sq m Kidney failure: <15 mL/min/1.73sq m eGFR calculated using average adult body mass. Additional eGFR calculator available at: http://www.[employer]okkd [employer]YieldBuild/multiple_crcl_2012.htm Glucose [Mass/Vol] 85 mg/dL 70 - 99 mg/dL [facility] Potassium [Moles/Vol] 4.5 mmol/L 3.7 - 5.3 mmol/L [facility] Sodium [Moles/Vol] 138 mmol/L 135 - 144 mmol/L [facility] Urea nitrogen (BldV) [Mass/Vol] 11 mg/dL 6 - 20 mg/dL [facility]Con 05-02-2021 Hematocrit (Bld) [Volume fraction] 41.0 % 36.3 - 47.1 % [facility] Hemoglobin.gastroin testinal spec 1 Ql (Stl) 12.9 g/dL 11.9 - 15.1 g/dL [facility] MCH (RBC) [Entitic mass] 26.9 pg 25.2 - 33.5 pg [facility] MCHC (RBC) [Mass/Vol] 31.5 g/dL 28.4 - 34.8 g/dL [facility] MCV (RBC) [Entitic vol] 85.6 fL 82.6 - 102.9 fL [facility] [employer] [facility] NRBC Automated 0.0 0.0 per 100 WBC [facility] [employer] [facility] Platelet distribution width (Bld) [Ratio] 13.7 % 11.8 - 14.4 % [facility] Platelet mean volume (Bld) [Entitic vol] 9.8 fL 8.1 - 13.5 fL [facility] Platelets (Bld) [#/Vol] 380 10*3/uL [facility] RBC (Bld) [#/Vol] 4.79 10*6/uL 3.95 - 5.1 1 m/uL [facility] WBC (Bld) [#/Vol] 11.2 10*3/uL [facility] No Panel Informationon 05-02 [facility] Protime-INRon 05-02-2021 INR Coag (Bld) [Relative time] 1.0 {INR} [facility] Comment on above: Therapeutic Range: Moderate Anticoagulant Intensity: INR = 2.0-3.0 High Anticoagulant Intensity: INR = 2.5-3.5 PT Coag (PPP) [Time] 10.6 s [facility] [employer] XR CHEST (2 VW)on 05-02-2021 No acute process. [facility] RIS CONSOLIDATED EXAMINATION: TWO XRAY VIEWS OF THE CHEST 05/02/2021 11:20 am COMPARISON: None. HISTORY: ORDERING SYSTEM PROVIDED HISTORY: preop, obesity TECHNOLOGIST PROVIDED HISTORY: preop, obesity FINDINGS: Heart is normal in size. Lungs are clear. No free air. [facility] CONSOLIDATED Jose Juan Florez Jr. , DO - 05/02/2021 EXAMINATION: TWO XRAY VIEWS OF THE CHEST 05/02/2021 11:20 am COMPARISON: None. HISTORY: ORDERING SYSTEM PROVIDED HISTORY: preop, obesity TECHNOLOGIST PROVIDED HISTORY: preop, obesity FINDINGS: Heart is normal in size. Lungs are clear. No free air. IMPRESSION: No acute process. [employer] Phone: Radiology Study observation (narrative) [employer] Phone: XR CHEST (2 VW)Ordered By: Santos Florez on 05-02-2021 [facility] Phone: [id number] 12-05-2020 SARS-CoV-2 (COVID-19) RNA BECCA+probe Ql (Unsp spec) Normal [facility] Comment on above: Performed By: #### C OVID #### [facility] [employer] [address] [place] [address] Manager Labor Delivery: Anthony Aguilar MD [facility] [address] [address] Manager Labor Delivery: Jameel Lawler MD SARS-CoV-2 (COVID-19) RNA BECCA+probe Ql (Unsp spec) Not detected Normal NOTDET [facility] Comment on above: Result Comment: The specimen is NEGATIVE for SARS-CoV-2, the novel coronavirus associated with COVID-19. A negative result does not rule out COVID-19. Lucrecia SARS-CoV-2 for use on the Lucrecia HYLA Mobile0/8800 Systems is a real-time RT-PCR test intended [...] this assay. Fact sheet for Healthcare Providers: https://www.fda.gov/media/099084/download Fact sheet for Patients: https://www.fda.gov/media/998209/download METHODOLOGY: RT-PCR Performed By: #### C OVID #### [facility] [address] [place], [place] [id number] Manager Labor Delivery: Anthony Aguilar MD [facility] [address] [place] [address] [place] [address] Manager Labor Delivery: Jameel Lawler MD [id number] 12-04-2020 SARS-CoV-2 (COVID-19) RNA BECCA+probe Ql (Unsp spec) .NASOPHARYNGEAL SWAB Normal [facility] Comment on above: Performed By: #### C OVID #### [facility] [address] [place], [place] [id number] Manager Labor Delivery: Anthony Aguilar MD [facility] [address] [place] [address] [place] [address] Manager Labor Delivery: Jameel Lawler MD Vital Signs Date Time Vital Sign Value Performing Clinician Facility 03-19-2023 11:06-0500 Body mass index (BMI) [Ratio] 36.34 kg/m2 Eloise BURROUGHS Work Phone: [facility] 03-19-2023 11:06-0500 Body weight 105.23 kg Eloise BURROUGHS Work Phone: [facility] 03-19-2023 11:06-0500 Diastolic blood pressure 78 mm[Hg] Eloise BURROUGHS Work Phone: [facility] 03-19-2023 11:06-0500 Systolic blood pressure 124 mm[Hg] Eloise BURROUGHS Work Phone: [facility] 03-05-2023 10:48-0500 Body mass index (BMI) [Ratio] 35.08 kg/m2 Karoline Hopson MD Work Phone: [facility] 03-05-2023 10:48-0500 Body weight 101.61 kg Karoline Hopson MD Work Phone: [facility] 03-05-2023 10:48-0500 Diastolic blood pressure 75 mm[Hg] Karoline Hopson MD Work Phone: [employer] 03-05-2023 10:48-0500 Heart rate 89 /min [facility] 03-05-2023 10:48-0500 Systolic blood pressure 126 mm[Hg] Karoline Hopson [facility] 02-07-2023 13:34-0500 Body height 170.2 cm Tatiana Yap MD [facility] 02-07-2023 13:34-0500 Body mass index (BMI) [Ratio] 34.14 kg/m2 Tatiana Yap MD [facility] 02-07-2023 13:34-0500 Body weight 98.88 kg Tatiana Yap MD [facility] 02-07-2023 13:34-0500 Diastolic blood pressure 83 mm[Hg] Tatiana Yap MD [facility] 02-07-2023 13:34-0500 Heart rate 76 /min Tatiana Yap MD [facility] 02-07-2023 13:34-0500 Systolic blood pressure 126 mm[Hg] Tatiana Yap MD Work Phone: [employer] 10-12-2022 10:10-0400 Body height 170.18 cm Lilia Daugherty Other [employer] Other 10-12-2022 10:10-0400 Body mass index (BMI) [Ratio] 32.86 kg/m2 Lilia Daugherty Other [facility] Other 10-12-2022 10:10-0400 Body temperature 99 [degF] Lilia Daugherty Other [facility] Other 10-12-2022 10:10-0400 Body weight 95.17 kg Lilia Daugherty Other [facility] Other 10-12-2022 10:10-0400 Diastolic blood pressure 74 mm[Hg] Lilia Daugherty Other [facility] Other 10-12-2022 10:10-0400 SaO2% (BldA) [Mass fraction] 98 % Lilia Daugherty Other [facility] Other 10-12-2022 10:10-0400 Systolic blood pressure 118 mm[Hg] Lilia Daugherty Other [facility] Other 05-17-2021 15:52-0400 Body temperature 98.49 [degF] Patricia Curry [employer] Work Phone: [facility] 05-17-2021 15:52-0400 Diastolic blood pressure 97 mm[Hg] Patricia Curry DO Work Phone: [facility] 05-17-2021 15:52-0400 Heart rate 70 /min Patricia Curry DO Work Phone: [facility] 05-17-2021 15:52-0400 Respiratory rate 18 /min Patricia Curry DO Work Phone: [facility] 05-17-2021 15:52-0400 SaO2% (BldA) [Mass fraction] 99 % Patricia Curry DO Work Phone: [facility] 05-17-2021 15:52-0400 Systolic blood pressure 138 mm[Hg] Patricia Curry DO Work Phone: [facility] 05-16-2021 06:06-0400 Body mass index (BMI) [Ratio] 43.16 kg/m2 Patricia Curry [employer] Work Phone: [facility] 05-16-2021 06:06-0400 Body weight 125 kg Patricia Curry [employer] Phone: [facility] 05-16-2021 05:57-0400 Body height 170.2 cm Patricia Curry [employer] Work Phone: [facility] 05-02-2021 10:35-0400 Body height 170.2 cm Stv[facility] 1 [facility] 05-02-2021 10:35-0400 Body mass index (BMI) [Ratio] 44.95 kg/m2 [facility] 05-02-2021 10:35-0400 Body temperature 97.2 [degF] [facility] 1 [facility] 05-02-2021 10:35-0400 Body weight 130.18 kg [facility] 1 [facility] 05-02-2021 10:35-0400 Diastolic blood pressure 85 mm[Hg] [facility] 1 [facility] 05-02-2021 10:35-0400 Heart rate 66 /min [facility] 1 [facility] 05-02-2021 10:35-0400 Respiratory rate 18 /min [facility] 1 [facility] 05-02-2021 10:35-0400 SaO2% (BldA) [Mass fraction] 99 % [facility] 1 [facility] 05-02-2021 10:35-0400 Systolic blood pressure 122 mm[Hg] [facility] 1 [facility] 12-04-2020 17:00-0400 Body height 170.18 cm Ale Ginty Other [facility] Other 12-04-2020 17:00-0400 Body mass index (BMI) [Ratio] 43.85 kg/m2 Ale Ginty Other [facility] Other 12-04-2020 17:00-0400 Body temperature 97.4 [degF] Ale Ginty Other [facility] Other 12-04-2020 17:00-0400 Body weight 127.01 kg Ale Ginty Other [facility] Other 12-04-2020 17:00-0400 SaO2% (BldA) [Mass fraction] 99 % Ale Harris Other [facility] [employer] Other Encounters Encounter Date Encounter Type Care Provider Facility Start: 06-26-2023 End: 06-26-2023 ambulatory NIGEL ZACARIAS Not Available Start: 06-19-2023 End: 06-19-2023 ambulatory NIGEL ZACARIAS Not Available Start: 06-11-2023 End: 06-11-2023 ambulatory ELOISE ALBERTO Not Available Start: 05-28-2023 End: 05-28-2023 ambulatory NIGEL ZACARIAS Not Available Start: 05-15-2023 End: 05-15-2023 ambulatory ELOISE DOMINGUEZ Not Available Start: 05-13-2023 End: 05-14-2023 ambulatory KIMMY A SVEN Not Available Start: 05-01-2023 End: 05-01-2023 ambulatory NIGEL ZACARIAS Not Available Start: 04-10-2023 End: 04-10-2023 ambulatory NIGEL ZACARIAS Not Available Start: 04-09-2023 End: 04-10[facility] Start: 03-24-2023 Clinisync Result Encounter Nigel [...] Only Laila Castillo RN Maternal- Medicine at [facility] Comment on above: Hypertension affecti ng in second trimester (Primary Dx); Dichorionic diamniotic twin in second trimester Start: 03-05-2023 End: 03-05-2023 Office outpatient visit 15 minutes Karoline Hopson MD Work Phone: Maternal- Medicine at [facility] Comment on above: History of sleeve ga strectomy (Primary Dx); History of induced hypertension Start: 02-27-2023 Orders Only Sivan Martinez RN Ma ternal- Medicine at [facility] Comment on above: Hypertension affecti ng in second trimester; 16 weeks gestation of ; Dichorionic diamniotic twin in second trimester Start: 02-26-2023 End: 02-26-2023 ambulatory NIGEL ZACARIAS Not Available Start: 02-24-2023 Telephone encounter Sangita Thomas RN [facility] [place] Start: 02-07-2023 End: 02-07-2023 ambulatory [facility] Start: 02-07-2023 End: 02-07-2023 Office consultation new/estab patient 60 min Tatiana Yap MD Work Phone: [facility] [place] Comment on above: Hypertension affecti ng in second trimester (Primary Dx); 16 weeks gestation of ; Dichorionic diamniotic twin in second trimester; H/O gastric sleeve Start: 02-05-2023 End: 02-05-2023 ambulatory NIGEL ZACARIAS Not Available Start: 02-05-2023 Chart abstracting Tatiana Yap MD Work Phone: [facility] [place] Start: 02-04-2023 End: 02-04-2023 ambulatory MARGOT G YAW Not Available Start: 01-15-2023 End: 01-15-2023 ambulatory NIGEL ZACARIAS Not Available Start: 01-07-2023 End: 01-07-2023 ambulatory MARGOT G YAW Not Available Start: 12-20-2022 End: 12-21-2022 ambulatory NIGEL ZACARIAS Not Available Start: 10-12-2022 End: 10-12-2022 ambulatory Lilia Daugherty Other [facility] Other Start: 10-12-2022 Office outpatient vi sit 15 minutes Lilia Daugherty [facility] Start: 09-11-2022 End: 09-11-2022 ambulatory PATRICIA CURRY [facility] Start: 02-10-2022 End: 02-10-2022 ambulatory Ale Shields Other [facility] Other Start: 02-10-2022 Telephone encounter Ale Shields [facility] [address] Start: 02-08-2022 End: 02-08-2022 ambulatory Ale Shields Facility:[facility] Start: 02-08-2022 End: 02-08-2022 ambulatory 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 Work Phone: Start: 02-08-2022 End: 02-08-2022 Departed Referred LAURA Shields Work Phone: [facility] [place] Work Phone: Start: 01-08-2022 End: 01-09-[address] JAMEEL BURGOS Facility:[facility] Start: 12-31-2021 End: 01-01-[address] JAMEEL BURGOS Facility:[facility] Start: 11-28-2021 End: 11-28-2021 ambulatory None Provider Facility:[facility] Start: 11-28-2021 End: 11-29-[address] JAMEEL BURGOS Facility:[facility] Start: 11-22-2021 End: 11-23-2021 ambulatory NONE LISTED REQUEST Facility:[facility] Start: 10-17-2021 End: 10-18-[address] NONE LISTED REQUEST Facility:[facility] Start: 08-03-2021 End: 08-04-[address] JAMEEL BURGOS Facility:[facility] Start: 05-16-2021 End: 05-17-2021 Evaluation and management of inpatient Patricia Curry DO Work Phone: [facility]o/[facility] Comment on above: Post-op pain (Primar y Dx) Start: 05-14-2021 End: 05-19-2021 ambulatory CYNBriseyda [facility] Start: 05-02-2021 End: 05-06-2021 Subsequent hospital visit by physician Hollis Pat Rm 1 [facility] Pre-Admit Testing Start: 12-04-2020 End: 12-09-2020 ambulatory CYNBriseyda Ríos [facility] Start: 12-04-2020 Office outpatient vi sit 15 minutes Ale Ginty [facility] Start: 10-20-2020 End: 10-20-2020 Subsequent hospital visit by physician Patricia Curry DO Work Phone: [facility] [place] Start: 09-06-2020 End: 09-07-2020 ambulatory IKE ANGEL Ríos [facility] Start: 09-06-2020 End: 09-06-2020 Subsequent hospital visit by physician Henrietta Sleep Rm 1 [facility] Comment on above: LYNN (obstructive sle ep apnea) Start: 05-28-2017 End: 05-29-2017 Ambulatory [facility] Facility:[id number] Procedures Date Procedure Procedure Detail Performing Clinician Start: 03-24-2023 [facility]H UA (CLEAN/CATCH) MANAGER UTILITY/MICRO IF IND. Nigel Adames DO Work Phone: [...] metabolic pane l calcium total Patricia Curry [employer] Work Phone: Start: 05-16-2021 SURGICAL PATHOLOGY REPORT Patricia Curry [employer] Work Phone: Start: 05-16-2021 Basic metabolic pane l calcium total Patricia Curry [employer] Work Phone: Start: 05-16-2021 End: 05-16-2021 Laps gstrc rstrictiv px longitudinal gastrectomy Patricia Curry [employer] Work Phone: Start: 05-16-2021 Glucose blood reagen t strip Patricia Curry [employer] Work Phone: Start: 05-16-2021 Urine test visual color cmprsn meths Patricia Curry [employer] Work Phone: Start: 05-02-2021 Assay of nicotine Sim Curry [employer] Work Phone: Start: 05-02-2021 Basic metabolic pane l calcium total Patricia Curry DO Work Phone: Start: 05-02-2021 Radiologic exam ches t 2 views Patricia Curry [employer] Work Phone: Start: 05-02-2021 Ecg routine ecg w/le ast 12 lds i&r only Patricia Curry [employer] Work Phone: Start: 06-14-2020 Microscopic observat ion [Identifier] in Cervix by Cyto stain Tatiana Yap MD Work Phone: Plan of Treatment Date Care Activity Detail Author Start: 03-05-2024 Adult BMI Screening [facility] Start: 03-05-2024 Tobacco Screening [facility] Start: 03-05-2024 End: 03-05-2024 US MFM with or without consult US MFM with or without consult Imaging Routine Hypertension affecting in second trimester Dichorionic diamniotic twin in second trimester Expected: 03/05/2024 (Approximate), Expires: 03/05/2024 [facility] Work Phone: Comment on above: Expected: 03/05/2024 (Approximate), Expires: 03/05/2024 Start: 02-08-2024 Adult BMI Screening Adult BMI Screen ing [facility] Start: 02-08-2024 Tobacco Screening Tobacco Screening [facility] Start: 01-04-2024 Adult BMI Screening Adult BMI Screen ing [facility] Start: 01-04-2024 Tobacco Screening Tobacco Screening [facility] Start: 08-11-2023 DTaP,Tdap and Td Vaccines (7 - Td or Tdap) DTaP,Tdap and Td Vaccines (7 - Td or Tdap) [facility] Start: 08-11-2023 DTaP/Tdap/Td vaccine (7 - Td or Tdap) DTaP/Tdap/Td vaccine (7 - Td or Tdap) [facility] Start: 08-10-2023 Influenza vaccination Influenza Vacc ine (#1) [facility] Comment on above: Postponed from 10/11 (Patient Refused) Start: 06-15-2023 Screening for malign ant neoplasm of cervix Pap Smear [facility] Start: 04-10-2023 End: 04-10-2023 Patient encounter procedure [facility] [place] Start: 03-19-2023 End: 03-19-2024 CBC panel - Blood by Automated count CBC Lab Routine Diabetes mellitus screening Expected: 03/19/2023 (Approximate), Expires: 03/19/2024 [facility] Room 77 Work Phone: Comment on above: Expected: 03/19/2023 (Approximate), Expires: 03/19/2024 Start: 03-19-2023 End: 03-19-2024 Measurement of glucose 1 hour after glucose challenge for glucose tolerance test Glucose tolerance, 1 hour Lab Routine Diabetes mellitus screening Expected: 03/19/2023 (Approximate), Expires: 03/19/2024 [facility] Comment on above: Expected: 03/19/2023 (Approximate), Expires: 03/19/2024 Start: 03-05-2023 End: 03-05-2023 Patient encounter procedure 03/05/2023 11:30 AM EST Office Visit Maternal- Medicine at [facility] [address] [place] [phone] Karoline Hopson MD [address] [place] [address] Maternal- Medicine at [facility] Start: 03-05-2023 End: 03-05-2023 Patient encounter procedure 03/05/2023 9:30 AM EST Appointment [facility] - [facility] [address] [place] [phone] [facility] Start: 02-07-2023 End: 02-07-2023 Patient encounter procedure [facility] [place] Start: 10-11-2022 Influenza vaccination Influenza Vacc ine [facility] Start: 09-19-2022 Adult BMI Follow Up Plan Adult BMI Follow Up Plan [facility] Start: 02-08-2022 Bacteria identified in Urine by Culture Urine Culture [facility] Start: 01-08-2022 Hemoglobin A1c measurement A1C test (Diabetic or Prediabetic) [facility] Start: 10-11-2021 Influenza vaccination Flu vacc ine (Season Ended) [facility] Start: 07-14-2021 Hemoglobin A1c measurement A1C test (Diabetic or Prediabetic) [facility] Work Phone: Start: 06-18-2021 End: 06-18-2021 Patient encounter procedure 06/18/2021 Office Visit Marlis Deann Navarro, ENVIRONMENTAL HEALTH MANAGER - NEWSPAPER VENDOR [address] [facility] [facility] [address] [place] [address] [facility] [place] Start: 05-24-2021 End: 05-24-2021 Patient encounter procedure 05/24/2021 Office Visit Patricia Islas, DO [address] [facility] [address] [place] [phone] [facility] Start: 05-16-2021 End: 05-16-2021 Admission to same day surgery center 05/16/2021 Surgery IP Unit Patricia Curry DO [address] [place] [phone] XI ROBOTIC LAPAROSCOPIC GASTRECTOMY SLEEVE , LIVER BIOPSY, EGD- GI SCHEDULED [facility] Comment on above: XI ROBOTIC LAPAROSCO PIC GASTRECTOMY SLEEVE , LIVER BIOPSY, EGD- GI SCHEDULED Start: 05-16-2021 End: 05-16-2021 Laps gstrc rstrictiv px longitudinal gastrectomy GASTRECTOMY SLEEVE LAPAROSCOPIC ROBOTIC MORBID OBESITY, OBSTRUCTIVE SLEEP APNEA, GERD 05/16/2021 7:10 AM EDT [facility] Start: 05-16-2021 Subsequent hospital visit by physician 05/16/2021 Hospital Encounter IP Unit Patricia Curry DO [address] [facility] [address] [place] [phone] [facility] Start: 05-13-2021 End: 05-13-2021 Patient encounter procedure 05/13/2021 Appointment Pre-Admission Testing [facility] PRE ADMIT Start: 05-10-2021 End: 05-10-2021 Patient encounter procedure 05/10/2021 Office Visit BariatricPatricia Leary DO [address] [facility] [address] [place] [phone] [facility] Start: 11-22-2020 End: 11-22-2020 Nursing evaluation of patient and report 11/22/2020 Nurse Only Bariatrics [facility] Start: 11-06-2020 End: 11-06-2020 Patient encounter procedure [facility] Start: 11-03-2020 End: 11-03-2020 Patient encounter procedure 11/03/2020 Office Visit Bariatrics Deann Navarro, ENVIRONMENTAL HEALTH MANAGER - NEWSPAPER VENDOR [address] [facility] [address] [place] [phone] [facility] [place] Start: 10-11-2020 Influenza vaccination Flu vaccine (# 1) [facility] Start: 09-28-2020 End: 09-28-2020 Patient encounter procedure 09/28/2020 Office Visit Bariatrics Deann Navarro, ENVIRONMENTAL HEALTH MANAGER - NEWSPAPER VENDOR [id number] [facility] [address] [place] [phone] [facility] [place] Start: 09-01-2015 Screening for malign ant neoplasm of cervix [facility] Start: 2009 HIV screening HIV screen [facility] Start: 2006 COVID-19 Vaccine (1) COVID-19 Vaccin e (1) [facility] [employer] Phone: Start: 2006 Depression Screen Depression Screen [facility] Start: 2006 Depression Screening Depression Scre [facility] Start: 2005 HPV vaccine (1 - 2-d ose series) HPV vaccine (1 - 2-dose series) [facility] Start: 2000 Pneumococcal 0-64 ye ars Vaccine (1 of 2 - PPSV23) Pneumococcal 0-64 years Vaccine (1 of 2 - PPSV23) [facility] Work Phone: Start: 09-01-1999 COVID-19 Vaccine (1) COVID-19 Vaccin e (1) [facility] Start: 09-01-1995 Varicella vaccine (1 of 2 - 2-dose childhood series) Varicella vaccine (1 of 2 - 2-dose childhood series) [facility] Start: 1994 Hepatitis C screening Hepatitis C sc [facility] End: 09-06-2020 Baseline Diagnostic Sleep Study Baseline Diagnostic Sleep Study Sleep Center Routine LYNN (obstructive sleep apnea) 1 Occurrences starting 09/06/2020 until 09/06/2020 [facility] [employer] Phone: Comment on above: 1 Occurrences starti ng 09/06/2020 until 09/06/2020 End: 02-08-2024 Calcium [Mass/volume] in Serum or Plasma Calcium Lab Routine 16 weeks gestation of H/O gastric sleeve 1 Occurrences starting 02/07/2023 until 02/08/2024 27 [facility]ards Comment on above: 1 Occurrences starti ng 02/07/2023 until 02/08/2024 End: 02-08-2024 CBC panel - Blood by Automated count CBC without diff Lab Routine Hypertension affecting in second trimester 16 weeks gestation of Dichorionic diamniotic twin in second trimester 1 Occurrences starting 02/07/2023 until 02/08/2024 [employer] Work Phone: Comment on above: 1 Occurrences starti ng 02/07/2023 until 02/08/2024 End: 02-08-2024 Comprehensive metabolic 2000 panel - Serum or Plasma Comprehensive metabolic panel Lab Routine Hypertension affecting in second trimester 16 weeks gestation of Dichorionic diamniotic twin in second trimester 1 Occurrences starting 02/07/2023 until 02/08/2024 27 bards Comment on above: 1 Occurrences starti ng 02/07/2023 until 02/08/2024 Continuous pulse oximetry Pulse oximetry, continuous Respiratory Care Routine Every 4hr until discontinued starting 05/16/2021 [employer] Phone: Comment on above: Every 4hr until disc ontinued starting 05/16/2021 End: 02-08-2024 Cyanocobalamin vitamin b-12 Vitamin B12 Lab Routine 16 weeks gestation of H/O gastric sleeve 1 Occurrences starting 02/07/2023 until 02/08/2024 27 bards Comment on above: 1 Occurrences starti ng 02/07/2023 until 02/08/2024 End: 02-08-2024 ECG 12 lead ECG 12 lead ECG Routine Hypertension affecting in second trimester 16 weeks gestation of Dichorionic diamniotic twin in second trimester 1 Occurrences starting 02/07/2023 until 02/08/2024 27 bards Comment on above: 1 Occurrences starti ng 02/07/2023 until 02/08/2024 End: 02-08-2024 Folate Folate Lab Routine 16 weeks gestation of H/O gastric sleeve 1 Occurrences starting 02/07/2023 until 02/08/2024 [facility] [employer] [facility] Comment on above: 1 Occurrences starti ng 02/07/2023 until 02/08/2024 End: 02-08-2024 Iron and TIBC Iron and TIBC Lab Routine 16 weeks gestation of H/O gastric sleeve 1 Occurrences starting 02/07/2023 until 02/08/2024 [facility] Comment on above: 1 Occurrences starti ng 02/07/2023 until 02/08/2024 End: 02-08-2024 LDH LDH Lab Routine Hypertension affecting in second trimester 16 weeks gestation of Dichorionic diamniotic twin in second trimester 1 Occurrences starting 02/07/2023 until 02/08/2024 [facility] Comment on above: 1 Occurrences starti ng 02/07/2023 until 02/08/2024 End: 02-08-2024 Natriuretic peptide B [Mass/volume] in Blood B-type natriuretic peptide Lab Routine Hypertension affecting in second trimester 16 weeks gestation of Dichorionic diamniotic twin in second trimester 1 Occurrences starting 02/07/2023 until 02/08/2024 [facility] Comment on above: 1 Occurrences starti ng 02/07/2023 until 02/08/2024 Oxygen therapy [[facility] Data Set] Initiate Oxygen Therapy Protocol Respiratory Care Routine As Needed until discontinued starting 05/16/2021 [employer] Phone: Comment on above: As Needed until disc ontinued starting 05/16/2021 End: 02-08-2024 Protein creat ratio Protein creat ratio Lab Routine Hypertension affecting in second trimester 16 weeks gestation of Dichorionic diamniotic twin in second trimester 1 Occurrences starting 02/07/2023 until 02/08/2024 [facility] [employer] Comment on above: 1 Occurrences starti ng 02/07/2023 until 02/08/2024 End: 02-08-2024 Protein, urine, 24 hour Protein, urine, 24 hour Lab Routine Hypertension affecting in second trimester 16 weeks gestation of Dichorionic diamniotic twin in second trimester 1 Occurrences starting 02/07/2023 until 02/08/2024 [facility] Comment on above: 1 Occurrences starti ng 02/07/2023 until 02/08/2024 Spirometry panel Incentive isiah metry Respiratory Care Routine Every 2hr while awake until discontinued starting 05/16/2021 [employer] Phone: Comment on above: Every 2hr while awak e until discontinued starting 05/16/2021 Surgical Pathology Surgical Path ology Lab Routine Release Upon Ordering for 1 Occurrences starting 05/16/2021 [employer] Phone: Comment on above: Release Upon Orderin g for 1 Occurrences starting 05/16/2021 End: 02-08-2024 Thiamin Vitamin B1, whole blood Thiamin Vitamin B1, whole blood Lab Routine 16 weeks gestation of H/O gastric sleeve 1 Occurrences starting 02/07/2023 until 02/08/2024 27 bards Comment on above: 1 Occurrences starti ng 02/07/2023 until 02/08/2024 End: 02-08-2024 Urate [Mass/volume] in Serum or Plasma Uric acid Lab Routine Hypertension affecting in second trimester 16 weeks gestation of Dichorionic diamniotic twin in second trimester 1 Occurrences starting 02/07/2023 until 02/08/2024 27 bards Comment on above: 1 Occurrences starti ng 02/07/2023 until 02/08/2024 End: 02-08-2024 Vitamin D 25 hydroxy Vitamin D 25 hydroxy Lab Routine 16 weeks gestation of H/O gastric sleeve 1 Occurrences starting 02/07/2023 until 02/08/2024 27 bards Comment on above: 1 Occurrences starti ng 02/07/2023 until 02/08/2024 Immunizations Immunization Date Immunization Notes Care Provider [facility] 11-12-2016 tuberculin skin test ; purified protein derivative solution, intradermal Tatiana Yap MD Work Phone[facility] 08-10-2013 tetanus toxoid, redu yemi diphtheria toxoid, and acellular pertussis vaccine, adsorbed Tatiana Yap MD Work Phone: [facility] 10-03-1999 diphtheria, tetanus toxoids and acellular pertussis vaccine Tatiana Yap MD Work Phone: [facility] 10-03-1999 diphtheria, tetanus toxoids and acellular pertussis vaccine, unspecified formulation Eloise BURROUGHS Work Phone: [facility] 10-03-1999 hepatitis B vaccine, pediatric or pediatric/adolescent dosage Tatiana Yap MD Work Phone: [facility] 10-03-1999 measles, mumps and rubella virus vaccine Tatiana Yap MD Work Phone: [facility] 10-03-1999 poliovirus vaccine, inactivated Tatiana Yap MD Work Phone: [facility] 01-14-1996 diphtheria, tetanus toxoids and acellular pertussis vaccine Tatiana Yap MD Work Phone: [facility] 01-14-1996 diphtheria, tetanus toxoids and pertussis vaccine Eloise BURROUGHS Work Phone: [facility] 01-14-1996 haemophilus influenz ae type b vaccine, conjugate unspecified formulation Tatiana Yap MD Work Phone: [facility] 01-14-1996 measles, mumps and rubella virus vaccine Tatiana Yap MD Work Phone: [facility] 05-21-1995 diphtheria, tetanus toxoids and acellular pertussis vaccine Tatiana Yap MD Work Phone: [facility] 05-21-1995 DTP-Haemophilus influenzae type b conjugate vaccine Eloise BURROUGHS Work Phone: [facility] 05-21-1995 haemophilus influenz ae type b vaccine, conjugate unspecified formulation Tatiana Yap MD Work Phone: [facility] 05-21-1995 poliovirus vaccine, inactivated Tatiana Yap MD Work Phone: [facility] 05-21-1995 trivalent poliovirus vaccine, live, oral Eloise BURROUGHS Work Phone: [facility] 02-21-1995 diphtheria, tetanus toxoids and acellular pertussis vaccine Tatiana Yap MD Work Phone: [facility] 02-21-1995 DTP-Haemophilus influenzae type b conjugate vaccine Eloise BURROUGHS Work Phone: [facility] 02-21-1995 haemophilus influenz ae type b vaccine, conjugate unspecified formulation Tatiana Yap MD Work Phone: [facility] 02-21-1995 hepatitis B vaccine, pediatric or pediatric/adolescent dosage Tatiana Yap MD Work Phone: [facility] 02-21-1995 poliovirus vaccine, inactivated Tatiana Yap MD Work Phone: [facility] 02-21-1995 trivalent poliovirus vaccine, live, oral Eloise BURROUGHS Work Phone: [facility] 1994 diphtheria, tetanus toxoids and acellular pertussis vaccine Tatiana Yap MD Work Phone: [facility] 1994 DTP-Haemophilus influenzae type b conjugate vaccine Eloise BURROUGHS Work Phone: [facility] 1994 haemophilus influenz ae type b vaccine, conjugate unspecified formulation Tatiana Yap MD Work Phone: [facility] 1994 hepatitis B vaccine, pediatric or pediatric/adolescent dosage Tatiana Yap MD Work Phone: [facility] 1994 poliovirus vaccine, inactivated Tatiana Yap MD Work Phone: [facility] 1994 trivalent poliovirus vaccine, live, oral Eloise BURROUGHS Work Phone: [facility] 1994 hepatitis B vaccine, pediatric or pediatric/adolescent dosage Tatiana Yap MD Work Phone: [facility] Payers Date Payer Category Payer Medicaid [id number] 2022 Medicaid [id number] 2022 Self-pay 2019 Unknown [id number] [id number]. [id number] 1994 Unknown [id number] 2.16.840.1.579809.3.579.2. 173 1994 Unknown [id number] 2.16.840.1.807904.3.579.2. 173 1994 Unknown [id number] 2.16.840.1.809748.3.579.2. 173 1994 Unknown [id number] 2.16.840.1.664957.3.579.2. 593 1994 Unknown [id number] 2.16.840.1.520462.3.579.2. 593 1994 Unknown [id number] 2.16.840.1.481877.3.579.2. 593 1994 Unknown [id number] 2.16.840.1.788072.3.579.2. 593 1994 Unknown [id number] 2.16.840.1.804663.3.579.2. 593 1994 Unknown [id number] 2.16.840.1.817351.3.579.2. 593 1994 Unknown [id number] 2.16.840.1.876933.3.579.2. 175 1994 Unknown [id number] 2.16.840.1.682919.3.579.2. 1286 1994 Unknown [id number] 2.16.840.1.219563.3.579.2. 1286 1994 Unknown [id number] 2.16.840.1.376532.3.579.2. 128 1994 Unknown [id number] 2.16.840.1.817803.3.579.2. 1286 1994 Unknown [id number] 2.16.840.1.931347.3.579.2. 128 1994 Unknown [id number] 2.16.840.1.388380.3.579.2. 1259 1994 Unknown [id number] 2.16.840.1.773338.3.579.2. 1258 1994 Unknown [id number] 2.16.840.1.459592.3.579.2. 1258 1994 Unknown [id number] 2.16.840.1.716206.3.579.2. 1258 1994 Unknown [id number] 2.16.840.1.747850.3.579.2. 1258 1994 Unknown [id number] 2.16.840.1.049984.3.579.2. 1258 1994 Unknown [id number] 2.16.840.1.944554.3.579.2. 1258 1994 Unknown [id number] 2.16840.1.505124.3.579.2. 1258 1994 Unknown [id number] 2.16840.1.275383.3.579.2. 1258 1994 Unknown [id number] 2.16840.1.982678.3.579.2. 1258 1994 Unknown [id number] 2.16840.1.732684.3.579.2. 1258 1994 Unknown [id number] 2.16840.1.517325.3.579.2. 1258 1994 Unknown [id number] 2.16840.1.793936.3.579.2. 1258 1994 Unknown [id number] 2.16840.1.134904.3.579.2. 1258 1994 Unknown [id number] 2.16.840.1.849144.3.579.2. 9 1959 Private Health Insurance [id number] 1.2.840.758567.1.13.239.2. 7.3.091468.315 Private Health Insurance [facility] [id number] Unknown [id number] 2.16.840.1.094867.3.579.2. 531 Social History Date Type Detail Facility Start: 09-01-2020 End: 09-28-2020 Tobacco smoking status [facility] Current every day smoker [employer] Phone: Start: 09-01-2020 End: 07-03-2022 Cigarettes smoked current (pack per day) - Reported [facility] Start: 09-01-2020 End: 07-03-2022 Tobacco use and exposure Never used [employer] Phone: Start: 09-01-2020 End: 09-28-2020 Alcohol intake Current drinker of alcohol (finding) [employer] Phone: Start: 12-23-2019 Alcohol Comment weekly [employer] Phone: Start: 1994 Sex Assigned At Not on file [employer] Phone: Start: 04-22-2021 End: 05-16-2021 Exposure to SARS-CoV-2 (event) Not sure [employer] Exposure to SARS-CoV -2 (event) Yes [employer] Start: 01-19-2021 End: 07-03-2022 Tobacco smoking status [facility] Ex-smoker [employer] Start: 02-11-2008 End: 11-19-2020 History of tobacco use Current smoker [employer] Phone: Start: 05-02-2021 End: 02-26-2023 Alcohol intake Ex-drinker (finding) [employer] Phone: Start: 08-17-2018 End: 07-03-2022 [facility] 1995 Sex Assigned At [facility] Start: 02-11-2008 End: 02-11-2020 History of tobacco use [facility] History of tobacco use Tobacco U se Types Packs/Day Years Used Date Smoking Tobacco: Former Cigarettes Quit: 2020 Vaping/E-cigarettes Smokeless Tobacco: Former Quit: 11/06/2020 [employer] Start: 02-05-2023 Tobacco use and exposure Former smokeless tobacco user [facility] End: 11-06-2020 History of tobacco use User of smokeless tobacco [facility] Frequency of Communication with Friends and Family More than three times a week [facility] Start: 08-17-2018 Education 12 [facility] Start: 05-18-2022 Alcohol Comment social, every other weekend [facility] Start: 10-31-2022 [facility] Within the last year , [...] Comment caffeine: 1-2 cups per day coffee [facility] Clinical Notes 12-04-2020 to 03-19-2023 HEIKE [...] of: HEIKE Meeks documented in this encounter [facility] 03-05-2023 History of Presen t illness Narrative Headache/epigastric pain/blurry vision/swelling? No Cramping/contractions? No Abnormal vaginal discharge? No Spotting or vaginal bleeding? No Loss of fluid like your water may have broken? No Recent ER visits or hospitalizations? Patient reports visit to [place] approximately two weeks ago to r/o ROM [...] you for allowing me to participate in [facility]. If there are any questions, please do not hesitate to call me. Sincerely, KAROLINE HOPSON MD documented in this encounter [employer] [facility] 02-24-2023 Miscellaneous Notes Incoming telephone call from patient with concerns of leakage of fluid. Patient called in and stated that she is Leaking clear fluid and has been. Retirement Administrator asked if she had spoken to her OB provider and she said that she had, but they told her that she is basically too early to be leaking any fluid. Retirement Administrator recommended patient present to the nearest emergency room to be evaluated. Patient verbalized understanding and had no further questions. documented in this encounter [facility] 02-24-2023 Telephone encounter Note Incoming telephone call from patient with concerns of leakage of fluid. Patient called in and stated that she is Leaking clear fluid and has been. Retirement Administrator asked if she had spoken to her OB provider and she said that she had, but they told her that she is basically too early to be leaking any fluid. Retirement Administrator recommended patient present to the nearest emergency room to be evaluated. Patient verbalized understanding and had no further questions. [facility] 02-07-2023 History of Presen t illness Narrative Headache/epigastric pain/blurry vision/swelling? Occasional headaches Cramping/contractions? No Abnormal vaginal discharge? No Spotting/vaginal bleeding? No Loss of fluid like your water may have broken? No Cats in the home? No Do you change the litter box? No Flu vaccine? No Genetic testing done this here or other office? Yes Have you been seen here at [facility] in a previous ? No Recent ER visits or hospitalizations? No Bring blood sugar log or meter with you today? (Please bring them with you for every visit at [facility]) N/A Traveled outside the country in [...] TESTS AND ULTRASOUND REPORTS: Referral records and [facility] chart were reviewed Pertinent Ultrasound [...] - 1.00 mg/dL Final METHOD TRACEABLE TO IDDC STANDARD Glucose 01/03/2023 71 65 - 99 [...] operators who are performing tests using either [employer] or [employer] systems and is limited to laboratories that [...] repeat. Fact Sheet for Healthcare Providers: https://www.f da.gov/media/734969/download Fact Sheet for Patients: https://www.fda.gov/media/084163 /download HABITS: Patient activity no restrictions, diet no restrictions PHYSICAL EXAMINATION: BP 126/83 Pulse 76 Ht 170.2 cm (5' 7 ) Wt 98.9 kg (218 lb) LMP 10/17/2022 BMI 34.14 kg/m Well-appearing in no distress. Respirations not labored, speaking comfortably in full sentences Gravid abdomen OVERALL ASSESSMENT -Fian Velásquez is a pleasant 27 y.o. at [...] a but with an anticipation of excellent halfway outcomes. In regards to the spontaneous processes, [...] previously recommended threshold of 160/110. Reference: PMID: [id number], 2021. Blood pressures do increase as progresses [...] preeclampsia prevention as is recommended by the [place] [employer] Gyne[employer] Committee Opinion No. 743. [...] aspirin vs 10.3% no aspirin, p=0.45) (PMBID: [id number]). Given well-established benefits baby aspirin for the prevention of preeclampsia, I recommend initiating baby aspirin even in the setting of history of Joe-en-Y surgery. Micronutrient Dosing Recommendations: Calcium: recommend 1000-1200mg daily; if deficient, recommend 1800-19992 mg PO daily in divided doses Vitamin [...] sooner if clinically indicated Follow up in [facility] in 4 weeks for anatomy and clinic follow-up DISPOSITION: At this point the patient is in complete care of her seed specialist. Patient does have ultrasound and office visit [...] procedures Referring and communicating with other health health care aide (not separately reported) Documenting clinical information in the electronic or other health record Tatiana Yap MD Maternal- Medicine [facility] [address] [place] [address] [facility], the CDC, and other organizations representing maternal and public health professionals recommend that , , and lactating people and those considering receive the COVID-19 vaccination. Vaccination is the best method to reduce maternal and complications of SARS-CoV-2 infection. This document was created with [employer] technology. Though I make every effort to review the dictation as it is transcribed, on occasion the spoken word can be misinterpreted by the technology leading to inappropriate words, phrases, or sentences. This note is addressed to the requesting provider as a consultation for clinical guidance. Specific medical abbreviations are occasionally used and those are generally approved by the [place]?Board of?Obstetrics and?Gynecology?as well as?[place] s abbreviations. The above plan of care was based solely on the diagnoses for which a consultation was requested. ?More frequent testing may be indicated based on her other medical/obstetrical conditions. The management of other or medical conditions is beyond the scope of requested consultation and will continue to be followed by the primary seed specialist or primary care provider. Note to patient: [...] of the practitioner. documented in this encounter [facility] 10-12-2022 Evaluation note Encounter Date [...] take Sudafed and/or Mucinex for congestion. Take wqai-nkp-eitlo er Robitussin or Delsym for cough. Follow-up with your family physician if no improvement in 2 to 3 days. Off work tomorrow. Oct, Cough (ICD-10 - R05.9) Oct, Bronchitis (ICD-10 - J40) Acute bronchitis material was printed [employer] Other 10-19-2022 NotePatient Education Materials [id number] History of Present illness Narrative* Payal Richardson [...] voices understanding documented [facility] this [facility] Phone: 1(669) 624-142604-07-2022 Hospital Discharge instructions* Instructions* Hannah Zavaleta RN - 05/17/2021 Discharge Instructions for Bariatric Surgery You had a Laparoscopic Sleeve Gastrectomy (05761) surgery to treat obesity. Recovery from this [...] scheduled appointment, please call the office at [phone]. Call Your Doctor If Any of the [...] sent through Care Everywhere. * Enoxaparin (Lovenox) (Italian) * Video: How to Give Yourself an Anticoagulant (Blood Thinner) Shot (Italian) documented in this [facility] Phone: 1(235) 432-775403-23-2022 Hospital Discharge instructions* Instructions* Kendal Wilhelm APRN [...] Day of Surgery/Procedure As a patient at [facility] you can expect quality medical and nursing care that is centered on your individual needs. Our goal is to make your surgical experience as comfortableas possible Directions to the Surgery Center The surgery Center at [facility] is located in the Emergency Room parking lot on [facility] or there is additional parking across the street. The address is [address] [place] [address]. Please check in at the Surgery Center [...] on the day of surgery please contact [phone] or [phone] If you have any other questions regarding your procedure/surgery please call your surgeon's office. documented in this [facility]: 1(386) 900-504203-23-2022 History of Present illness Narrative* Eloise Chi [...] 1 week, no complications DM (diabetes mellitus) ([facility]) Environmental allergies GERD (gastroesophageal reflux disease) History of blood transfusion no reactions Metabolic syndrome Obesity PCOS (polycystic ovarian syndrome) Under care of team 05/02/2021 pcp-Dr [id number]-[id number] visit april 2021 Patient was evaluated in PAT & anesthesia guidelines were applied. NPO guidelines, medication instructions and scheduled arrival time were reviewed with patient. Anesthesia contacted: no Medical or cardiac clearance ordered: no, medical clearance obtained. LAURA Garcia CNP 05/02/21 11:53 AM documented in [facility] Phone: [phone]) 489-203210-25-2021 Evaluation note* Encounter Date Diagnosis Assessment Notes Treatment Notes Treatment Clinical Notes Nov, Contact with and (suspected) exposure to other viral communicable diseases (ICD-10 - Z20.828) Nov, Viral URI with cough (ICD-10 - J06.9) No COVID test completed at this time. Advised patient that will tx as viral URI. Supportive care as directed, increase fluids and rest, Tylenol/Motrin as directed, rx of [place] and Flonase as directed, cool mist humidifier, [...] Patient care instructions given in writting by ASPIRUS STANLEY [facility] document [facility] Other Evaluation note* Diagnosis LYNN (obstructive sleep apnea) Obstructive sleep apnea (adult) (pediatric) documented in this encounter [employer] Phone: evaluation note* Diagnosis S/P laparoscopic sleeve gastrectomy- Primary Post-op pain Other acute postoperative pain documented in this encounter [employer] [facility] Phone: evaluation noteNo assessment information available [facility] Work Phone: Evaluation noteNo InformationNort Krikle Other Evaluation note* Diagnosis Hypertension affecting in second trimester- Primary 16 weeks gestation of Dichorionic diamniotic twin in second trimester H/O gastric sleeve documented in this encounter [facility]* Diagnosis Hypertension affecting in second trimester 16 weeks gestation of Dichorionic diamniotic twin in second trimester [facility] Diagnosis Hypertension affecting in second trimester- Primary Dichorionic diamniotic twin in second trimester [facility] Diagnosis History of sleeve gastrectomy- Primary History of induced hypertension documented in [facility] encounter [facility]* Diagnosis Second trimester state, incidental Diabetes mellitus screening Screening for diabetes mellitus documented [facility] N[facility]ative - Reported* Type Description Date Medical History METABOLIC SYNDROME Medical History SYNCOPE Medical History anxiety Surgical History WISDOM TEETH Surgical History TONSILECTOMY Surgical History ENDOSCOPY AND COLONSCOPY Surgical History C section Hospitalization History see above [facility] Other Hisvdgv general Narrative - Reported* Type Description Date Medical History METABOLIC SYNDROME Medical History SYNCOPE Medical History anxiety Surgical History WISDOM TEETH Surgical History TONSILECTOMY Surgical History ENDOSCOPY AND COLONSCOPY Surgical History C section Surgical History gastric sleeve Hospitalization History see above [facility] Other history general Narrative - Reported* Type Description Date Medical History METABOLIC SYNDROME Medical History SYNCOPE Medical History anxiety Surgical History WISDOM TEETH Surgical History TONSILECTOMY Surgical History ENDOSCOPY AND COLONSCOPY Surgical History C section Surgical History gastric sleeve Surgical History cholcystectomy 09/10/2022 Hospitalization History see above [facility] Other InstructionsNot on filedocumented in this encounter [facility] SystemInstructionsNot on filedocumented in this encounter [facility] SystemInstructionsNot on filedocumented in this encounter [facility] SystemInstructionsNot on filedocumented in this encounter [facility] SystemInstructionsNot on filedocumented in this encounter [facility] SystemReason for visit Narrative* Auth/Cert Specialty Diagnoses / Procedures Referred By Cristal rosen Referred To Contact Diagnoses Morbid obesity (HCC) Obstructive sleep apnea GERD (gastroesophageal reflux disease) MORBID OBESITY, OBSTRUCTIVE SLEEP APNEA, GERD Procedures GA LAP, JAY RESTRICT PROC, LONGITUDINAL GASTRECTOMY XI ROBOTIC LAPAROSCOPIC GASTRECTOMY SLEEVE , LIVER BIOPSY, EGD- GI SCHEDULED Patricia Curry DO [address] [facility] [address] [place] [address] [employer] [address] [place] [address] Referral ID Status Reason Start Date Expiration Date Visits Re quested Visits Authorized [id number] 1 1 [employer] Phone: Summary Purpose Family History No Family [...] Procedures Referred By Contact Referred To Contact [facility] Diagnoses LYNN (obstructive sleep apnea) Procedures Baseline Diagnostic Sleep Study Ike Ortiz MD [address] [facility] [address] [place] [address] Specialty Diagnoses / Procedures Referred By Contac t Referred To Contact Diagnoses Hypertension affecting in second trimester 16 weeks gestation of Dichorionic diamniotic twin in second trimester Procedures ECG 12 lead Tatiana Yap MD [address] [place] [address] Referral ID Status Reason Start Date Expiration Date V isits Requested Visits Authorized [id number] Pending Review 02/07/2023 02/07/2024 1 1 Specialty Diagnoses / Procedures Referred By Contac t Referred To Contact [facility] Diagnoses Hypertension affecting in second trimester Dichorionic diamniotic twin in second trimester Procedures US M with or without consult Karoline Hopson MD [address] [place] [address] [facility] [address] [place] [address] Referral ID Status Reason Start Date Expiration Date V isits Requested Visits Authorized [id number] Pending Review 03/05/2023 03/04/2024 1 1 Chief Complaint and Reason for Visit Chief Complaint Dysuria Additional Source Comments INFORMATION SOURCE (unrecogn ized section and content) DATE CREATED AUTHOR 07/31/2017 [facility] DATE CREATED AUTHOR AUTHOR'S ORGANIZ ATION 05/21/2021 [facility] DATE CREATED AUTHOR AUTHOR'S ORGANIZ ATION 12/03/2021 [facility] DATE CREATED AUTHOR AUTHOR'S ORGANIZ ATION 01/12/2022 [facility] DATE CREATED AUTHOR AUTHOR'S ORGANIZ ATION 02/11/2022 [facility] DATE CREATED AUTHOR AUTHOR'S ORGANIZ ATION 09/13/2022 [facility] DATE CREATED AUTHOR AUTHOR'S ORGANIZ ATION 02/09/2023 [facility] DATE CREATED AUTHOR AUTHOR'S ORGANIZ ATION 04/12/2023 [facility] DATE CREATED AUTHOR AUTHOR'S ORGANIZ ATION 06/28/[address] [facility] d[facility] Specialists EPIC Reason for Visit (unrecogniz ed section and content) Status Reason Specialty Diagnoses / Procedures Referred By Contact Referred To Contact [facility] Diagnoses LYNN (obstructive sleep apnea) Procedures Baseline Diagnostic Sleep Study Ike Ortiz MD [address] [facility] [address] [place] [address] Status Reason Specialty Diagnoses / Procedures Referre d By Contact Referred To Contact Diagnoses K21.9 GERD E66.9 OBESITY Procedures GA EGD TRANSORAL BIOPSY SINGLE/MULTIPLE EGD BIOPSY Patricia Curry DO [address] [facility] [address] [place] [address] [facility] Reason Comments twin HX C/S HX gastric sleeve HX PTD Reason Comments Dichorionic Diamniotic Twin Hypertension Reason Comments Routine Visit Care Teams (unrecognized sec tion and content) Professor Of Biological Sciences Relationship Specialty Start Date End Date Stephane Martin MD [address] [place] [address] PCP - General 05/17/20 Professor Of Biological Sciences Relationship Specialty Start Date End Date Stephane Martin MD [address] [facility] [place] [address] PCP - General 05/17/20 Team Status: Inactive Member Role Status Dates Ale Shields APRN Attending Provider Active Professor Of Biological Sciences Relationship Specialty Start Date End Date Margot Toure DO [address] [place] [address] PCP - General Family Medicine 01/03/23 Professor Of Biological Sciences Relationship Specialty Start Date End Date Margot Toure DO [address] [place] [address] PCP - General Family Medicine 01/03/23 Professor Of Biological Sciences Relationship Specialty Start Date End Date Margot Toure DO [address] [place] [address] PCP - General Family Medicine 01/03/23 Professor Of Biological Sciences Relationship Specialty Start Date End Date Margot Toure DO [address] [place] [address] PCP - General Family Medicine 01/03/23 Professor Of Biological Sciences Relationship Specialty Start Date End Date Margot Toure DO [address] [place] [address] PCP - General Family Medicine 01/03/23 Professor Of Biological Sciences Relationship Specialty Start Date End Date Margot Toure DO [address] [facility] [place] [address] PCP - General Family Medicine 01/03/23 Professor Of Biological Sciences Relationship Specialty Start Date End Date Margot Toure DO [address] [place] [place] [address] PCP - General Family Medicine 07/01/22 Professor Of Biological Sciences Relationship Specialty Start Date End Date Margot Toure DO [address] [place] [address] PCP - General Family Medicine 07/01/22 Ordered [...] (Given - Provider: Sharmin Sam APRN - QUALITY CONTROL ENGINEERING TECHNICIAN) ceFAZolin (ANCEF) 3000 mg in sterile water [...] Underwood RN) 0758 (Given - Provider: Hannah Zavlaeta RN)133 (Given - Provider: Hannah Zavaleta RN)2100 [...] (NoRateChange - Provider: Sharmin Sam APRN - QUALITY CONTROL ENGINEERING TECHNICIAN)0856 (Anesthesia Volume Adjustment - Provider: Sharmin Sam APRN - QUALITY CONTROL ENGINEERING TECHNICIAN) 1631 (Stopped - Provider: Hannah Zavaleta [...] Provider: Sivan Lara RN)0942 (Given - Provider: Sivna Lara RN) HYDROmorphone (DILAUDID) injection 1 mg [...] therapy., PACU only 0916 (Given - Provider: Sivna Lara RN) ondansetron (ZOFRAN) injection 4 mg [...] to back table, 1000 ml. for suction wine fermenter) sodium chloride flush 0.9 % injection 5-40 [...] BE BASED ON THE PRIMARY CLINICAL RECORDS. [facility]. provides no warranty or guarantee of the accuracy or completeness of information in this document.
[2023-07-03] MEDS: 0.9 % SODIUM CHLORIDE 1,000 ML 1000 ML IV (07:30)
[2023-07-03 07:37] LABS: Basophils Percent Auto 0.3 % (0.2-2.0); Eosinophils Absolute Auto 0.1 10^3/uL (0.0-0.7); Eosinophils Percent Auto 0.9 % (0.9-7.0); Hematocrit 36.4 % (36.0-48.0); Hemoglobin 11.7 g/dL (12.0-16.0); Immature Granulocytes Abs Auto 0.09 10^3/uL (0.00-0.03); Lymphocytes Percent Auto 21.1 % (20.5-60.0); Mean Corpuscular HGB Conc 32.1 g/dL (29.9-35.2); Mean Corpuscular Hemoglobin 27.8 pg (26.7-34.0); Mean Corpuscular Volume 86.5 fL (81.0-99.0); Mean Platelet Volume 9.4 fL (9.5-13.5); Monocytes Absolute Auto 0.7 10^3/uL (0.3-0.8); Monocytes Percent Auto 7.8 % (1.7-12.0); Neutrophils Absolute Auto 6.5 10^3/uL (1.4-6.5); Neutrophils Percent Auto 68.9 % (43.0-75.0); Platelet Count 226 10^3/uL (150-450); Red Blood Count 4.21 10^6/uL (4.20-5.40); Red Cell Distribution Width 21.1 % (11.0-15.0); White Blood Count 9.4 10^3/uL (4.0-11.0)
[2023-07-03 07:38] LABS: Bilirubin Urine NEGATIVE (NEGATIVE); Blood Urine TRACE-I (NEGATIVE); Clarity Urine CLEAR (CLEAR); Color Urine YELLOW (YELLOW); Glucose Urine UA NEGATIVE (NEGATIVE); Ketones Urine NEGATIVE (NEGATIVE); Leukocyte Esterase Urine TRACE (NEGATIVE); Nitrite Urine NEGATIVE (NEGATIVE); Protein Urine NEGATIVE (NEG/TRACE); Urobilinogen Urine 0.2 EU/dL (0.2-1.0)
[2023-07-03 07:46] LABS: Bacteria Urine TRACE #/HPF (NONE SEEN); Cast Seen? NONE SEEN #/LPF (NONE SEEN); Crystals Seen? None Seen #/HPF (None Seen); Mucus Urine NONE SEEN (NONE SEEN); RBC Urine 0-2 #/HPF (0-2); Squamous Epithelial Cell Urine FEW #/LPF (NONE/RARE); WBC Urine 0-2 #/HPF (NONE SEEN)
[2023-07-03 08:02] LABS: Amphetamine Screen Urine NEGATIVE (NEGATIVE); Barbiturates Screen Urine NEGATIVE (NEGATIVE); Benzodiazepines Screen Urine NEGATIVE (NEGATIVE); Buprenorphine Screen Urine NEGATIVE (NEGATIVE); Cannabinoid Screen Urine NEGATIVE (NEGATIVE); Cocaine Screen Urine NEGATIVE (NEGATIVE); Methadone Screen Urine NEGATIVE (NEGATIVE); Methamphetamines Screen Urine NEGATIVE (NEGATIVE); Opiate Screen Urine NEGATIVE (NEGATIVE); Oxycodone Screen Urine NEGATIVE (NEGATIVE); Phencyclidine Screen Urine NEGATIVE (NEGATIVE); Tricyclic Antidepressant Urine NEGATIVE (NEGATIVE)
[2023-07-03] MEDS: 0.9 % SODIUM CHLORIDE 1,000 ML 125 ML IV ×2 (08:15→09:31)
[2023-07-03] MEDS: METOCLOPRAMIDE HCL 10 MG/2 ML VIAL IVP (09:28)
[2023-07-03] MEDS: CITRIC ACID/SODIUM CITRATE 30 ML SOLUTION ORACIT SHOHL'S SOLN PO (09:28)
[2023-07-03] MEDS: FAMOTIDINE/PF 20 MG/2 ML VIAL IV (09:28)
[2023-07-03] MEDS: CEFAZOLIN SODIUM/DEXTROSE,ISO 2 GM/50 ML PIGGYBACK IV ×2 (09:30→16:05)
[2023-07-03] MEDS: LACTATED RINGER'S SOLUTION 1,000 ML 50 ML IV (10:10)
[2023-07-03] MEDS: LACTATED RINGER'S SOLUTION 1,000 ML 125 ML IV (10:50)
--- NOTE | 2023-07-03 11:12 | P.ON_ITS ---
Brief Operative Note Date of procedure: 07/03/23 Pre-op diagnosis general: iup at 37wks, twin gestation, previous c/s Post-op diagnosis: same as pre-op Procedure: NAME OF PROCEDURE: [ section with bilateral salpingectomy ] PROCEDURE: Patient was taken back to the Operating Room where she was given a spinal anesthesia with Duramorph without difficulty. She was prepped and draped in the normal sterile fashion. A Pfannenstiel skin incision was then made 2?cm above the symphysis pubis and carried down to underlying rectus fascia using a Bovie. The fascia was incised in the midline and extended laterally using Whaley scissors. Two Cheng clamps were placed on the superior aspect of the fascia and dissected off the underlying rectus muscles. The same was performed on the inferior aspect as well. The muscles were then in the midline. Peritoneum was identified and entered bluntly. The peritoneum was then extended superiorly and inferiorly with good visualization of the bladder. The bladder blade was inserted. Vesicouterine peritoneum was identified, tented up, and entered with Metzenbaum scissors. A bladder flap was then created digitally. The bladder blade was reinserted. A low transverse incision was made on the patient's uterus and extended laterally digitally. The a was then delivered atraumatically after the bladder blade was removed in the cephalic position. Twin b was delivered breech presentation, The cords was clamped and cut. Cord blood was obtained. The infant was handed off to awaiting team. The patient's placenta was spontaneously delivered. The uterus was then exteriorized. The uterus was cleared of all clots and debris. The bladder blade was reinserted. The patient's uterine incision was closed using #0 Vicryl in a running lock fashion. Excellent hemostasis was assured.? The rt tube was identif ied and grasped with babock, the ligasure was used to transect and ligate the tube in its entirity, this was done on the contralateral side as well. The uterus was then returned to the patient's abdomen. The patient's abdomen was copiously irrigated using warm saline. Peritoneal gutters were cleared of all clots and debris. Again excellent hemostasis was assured. The patient's fascia was closed using #0 Vicryl in a running fashion. The patient's skin was closed using 4-0 Vicryl subcuticularly. The patient tolerated the procedure well. Sponge, lap, and needle counts were correct x2. The patient was taken to the Recovery Room in stable condition. Anesthesia: spinal Surgeon: Nigel Adames Sack Cleaning Hand: Ada Garcia Estimated blood loss (mL): 700 Pathology: other (placenta) Condition: stable Disposition: floor Urinary Catheter Management Urinary Catheter Management Urethral: Cath placed during this visit: yes Urethral indwelling: No Insertion date: 07/03/23 Insertion time: 07:35
--- NOTE | 2023-07-03 11:15 | P.OBPRC_ITS ---
Procedure Pre-op/Post-op diagnoses: Pre-Op/Post-Op Diagnoses Operation Date: 07/03/23 08:45 <No data on this case meets the specified criteria> Procedure: Procedures Operation Date: 07/03/23 08:45 Actual Procedure Side Surgeon p Repeat Section (Twins) with Bilateral Salpingectomy Bilateral Nigel Adames DO Electrical Design Technologist: Ada Garcia Estimated blood loss (mL): 700 Disposition: floor Anesthesia type: Spinal
[2023-07-03] MEDS: BUPIVACAINE HCL 0.5% PF 50 MG/10 ML VIAL INJ (11:30)
[2023-07-03] MEDS: 0.9 % SODIUM CHLORIDE 10 ML VIAL 20 ML INJ (11:30)
[2023-07-03] MEDS: BUPIVACAINE LIPOSOME/PF 266 MG/13.3 ML VIAL INJ (11:30)
[2023-07-03] MEDS: HYDROXYZINE HCL 25 MG TABLET PO (13:18)
[2023-07-03] MEDS: OXYTOCIN/0.9 % SODIUM CHLORIDE 20 UNITS/1,000 ML PLAST..BAG 125 UNIT IV (13:18)
[2023-07-03] MEDS: ACETAMINOPHEN 500 MG TABLET 1000 MG PO ×2 (16:05→23:46)
[2023-07-03] MEDS: KETOROLAC TROMETHAMINE 30 MG/ML VIAL IVP ×2 (17:53→23:27)
[2023-07-03] MEDS: ENOXAPARIN SODIUM 40 MG/0.4 ML SYRINGE SUBQ (21:20)
[2023-07-04 04:45] VITALS: BP 128/76; PULSE 79; TEMP 36.4
[2023-07-04] MEDS: KETOROLAC TROMETHAMINE 30 MG/ML VIAL IVP ×3 (05:51→17:29)
[2023-07-04 05:53] LABS: Basophils Percent Auto 0.2 % (0.2-2.0); Eosinophils Absolute Auto 0.1 10^3/uL (0.0-0.7); Eosinophils Percent Auto 0.9 % (0.9-7.0); Hematocrit 28.6 % (36.0-48.0); Hemoglobin 9.2 g/dL (12.0-16.0); Immature Granulocytes Pct Auto 0.8 % (0.0-0.5); Lymphocytes Absolute Auto 1.8 10^3/uL (1.2-3.8); Lymphocytes Percent Auto 14.4 % (20.5-60.0); Mean Corpuscular HGB Conc 32.2 g/dL (29.9-35.2); Mean Corpuscular Hemoglobin 28.3 pg (26.7-34.0); Mean Platelet Volume 9.1 fL (9.5-13.5); Monocytes Absolute Auto 1.1 10^3/uL (0.3-0.8); Monocytes Percent Auto 8.8 % (1.7-12.0); Neutrophils Absolute Auto 9.1 10^3/uL (1.4-6.5); Neutrophils Percent Auto 74.9 % (43.0-75.0); Platelet Count 172 10^3/uL (150-450); Red Blood Count 3.25 10^6/uL (4.20-5.40); Red Cell Distribution Width 20.9 % (11.0-15.0); White Blood Count 12.2 10^3/uL (4.0-11.0)
[2023-07-04 08:01] VITALS: BP 116/70; PULSE 72; TEMP 36.6
[2023-07-04] MEDS: ACETAMINOPHEN 500 MG TABLET 1000 MG PO (08:07)
[2023-07-04] MEDS: OMEPRAZOLE 20 MG CAPSULE.DR PO (08:08)
[2023-07-04] MEDS: DOCUSATE SODIUM 100 MG CAPSULE PO ×2 (08:08→20:09)
[2023-07-04] MEDS: OXYCODONE HCL 5 MG TABLET PO ×2 (08:10→18:32)
--- NOTE | 2023-07-04 11:33 | RESP.RT ---
done per nursing
--- NOTE | 2023-07-04 12:45 | P.OBPN_ITS ---
OB - PN: Subj Subjective Patient comments: no complaints, pain well controlled, tolerating diet and flatus present [place] feeding status: exclusively bottle feeding Exam Narrative Exam Narrative: VOICING NO COMPLAINTS Constitutional Vital Signs, click to edit/add: Last Vital Signs Temp 97.9 F 07/04/23 08:01 Pulse 72 07/04/23 08:01 Resp 16 07/04/23 08:19 BP 116/70 07/04/23 08:01 Pulse Ox 97 07/03/23 12:10 O2 Del Method Room Air 07/04/23 08:19 Documenting provider has reviewed patient's vital signs: yes Common normals: no apparent distress, average body habitus, oriented x3, no limitations, healthy appearing, alert and well nourished HENCT Common normals: normocephalic and head/scalp atraumatic Eye Pupil: PERRL and accommodation reflex normal Neck & C-Spine Common normals: full ROM and supple Chest Common normals: inspection of chest normal Respiratory Common normals: normal respiratory effort Cardio Common normals: regular rate and regular rhythm GI Common normals: Normal to inspection, nondistended, normoactive bowel sounds present, soft to palpation and non-tender Common normals: no CVA tenderness Back & Pelvis Common normals: no thoracic nor lumbar tenderness Extremity Common normals: normal to inspection, full ROM and no calf tenderness Neuro Common normals: CN's II-XII intact bilaterally, moves all extremities, no focal motor deficits and no sensory deficits noted Sensorium/orientation: awake, alert, oriented to person, oriented to place and oriented to time Psych Common normals: mental status grossly normal, thought process normal, cooperative, affect normal and speech normal Results Labs Labs: Short CBC 07/04/23 Range/Units 05:46 WBC 12.2 H (4.0-11.0) 10^3/uL Hgb 9.2 L (12.0-16.0) g/dL Hct 28.6 L (36.0-48.0) % Plt Count 172 (150-450) 10^3/uL Urinary Catheter Management Urinary Catheter Management Urethral: Cath placed during this visit: yes Urethral indwelling: No Insertion date: 07/03/23 Insertion time: 07:35 OB - PN: A/P Assessment and Plan (1) Twin gestation in third trimester: Assessment and Plan: DELIVERED BY SCHEDULED CS WITHOUT COMPLICATION. BABY BOYS DOING WELL. BOTTLE FEEDING. HAS INTERMITTENT HEADACHE TREATED WITH FIORINAL. Qualifiers: Multiple gestation type: monochorionic and diamniotic Qualified Code(s): O30.033 - Twin , monochorionic/diamniotic, third trimester Plan NEEDS SPORTS BRA ON 02/09 TO INHIBIT MILK PRODUCTION. Plan - day: 1 Plan: routine postop care Time Spent with Patient Time: Total time spent is greater than 50% in coordination of care (as documented) at patient's floor/unit and/or counseling patient: Total time spent with greater than 50% in coordination of care (as documented) at patient's floor/unit and/or counseling patient: less than 15 minutes
[2023-07-04] MEDS: HYDROXYZINE HCL 25 MG TABLET PO (14:11)
[2023-07-04] MEDS: BUTALB/ACETAMINOPHEN/CAFFEINE 50-325-40MG TABLET 2 TAB PO ×2 (15:14→20:08)
[2023-07-04 15:17] VITALS: BP 114/69; PULSE 85; TEMP 37.1
[2023-07-04 22:16] VITALS: BP 115/72; PULSE 68; TEMP 37.3
[2023-07-04] MEDS: ENOXAPARIN SODIUM 40 MG/0.4 ML SYRINGE SUBQ (22:18)
[2023-07-04] MEDS: LORAZEPAM 1 MG TABLET 2 MG PO (22:18)
[2023-07-05] MEDS: OXYCODONE HCL 5 MG TABLET 10 MG PO ×4 (01:32→21:41)
[2023-07-05] MEDS: SIMETHICONE 80 MG TAB.CHEW PO (06:44)
[2023-07-05 08:00] VITALS: TEMP 36.7
[2023-07-05 08:09] VITALS: BP 114/73; PULSE 70
[2023-07-05] MEDS: DOCUSATE SODIUM 100 MG CAPSULE PO ×2 (09:29→21:40)
[2023-07-05] MEDS: OMEPRAZOLE 20 MG CAPSULE.DR PO (09:29)
[2023-07-05] MEDS: ACETAMINOPHEN 1,000 MG/100 ML PREMIX 400 MG IV (12:44)
--- NOTE | 2023-07-05 13:25 | PM.OBDS ---
DS: Providers Provider Date of admission: 07/03/23 06:45 Primary care physician: Non-Staff PhysicianMD Admitting clinician: Nigel Adames Consults: 07/03/23 Consult to Anesthesiology Routine Consulting Provider: Neo Miller Reason for consultation: 07/04/23 Consult to Regional Economist Routine Reason for consult:: Other Other reason:: physician request Discharging clinician: Citlalli Rodriguez DS: Diagnosis Discharge Diagnosis (1) Twin gestation in third trimester: Assessment and plan: s/p UNCOMPLICATED PRIMART CS FORTWIN GESTATION DELIVERY AT TERM Qualifiers: Multiple gestation type: monochorionic and diamniotic Qualified Code(s): O30.033 - Twin , monochorionic/diamniotic, third trimester Plan DISCHARGE HOME, INSTRUCTIONS GIVEN, ALL QUESTIONS ANSWERED WITH STATED UNDERSTANDING OB - DS: Summary Hospital Course Hospital Course: UNCOMPLICATED Time spent discussing smoking cessation with patient: 3 to 10 minutes Peripartum Data - Procedures: Procedures Operation Date: 07/03/23 08:45 Actual Procedure Side Surgeon p Repeat Section (Twins) with Bilateral Salpingectomy Bilateral Nigel Adames DO Peripartum Data - Vaginal Delivery Procedures: Procedures Operation Date: 07/03/23 08:45 Actual Procedure Side Surgeon p Repeat Section (Twins) with Bilateral Salpingectomy Bilateral Nigel Adames DO Complications complications: none Infant Delivery method: section Gender: male Discharge plan: home Infant A Delivery method: section Gender: male Discharge plan: home B Delivery method: section Gender: male Discharge plan: home Status at Discharge Cognitive/behavioral status at discharge: WNL Overall status at discharge: patient is progressing back to baseline Time Spent with Patient Time attestation: Total time spent providing and/or coordinating discharge services: Time spent: less than 30 minutes Specific discharge activities: SEE ABOVE Exam Narrative Exam Narrative: VOICING NO COMPLAINTS Constitutional Vital Signs, click to edit/add: Last Vital Signs Temp 98.1 F 07/05/23 08:00 Pulse 70 07/05/23 08:09 Resp 16 07/05/23 08:00 BP 114/73 07/05/23 08:09 Pulse Ox 97 07/03/23 12:10 O2 Del Method Room Air 07/05/23 08:45 Documenting provider has reviewed patient's vital signs: yes Common normals: no apparent distress, average body habitus, oriented x3, no limitations, healthy appearing, alert and well nourished General appearance: cooperative, comfortable, well kempt and well developed Orientation/consciousness: Yes awake, Yes oriented to person, Yes oriented to place and Yes oriented to time HENMT Common normals: normocephalic and head/scalp atraumatic Eye Pupil: PERRL and accommodation reflex normal Neck & C-Spine Common normals: full ROM and supple Chest Common normals: inspection of chest normal Respiratory Common normals: normal respiratory effort Cardio Common normals: regular rate and regular rhythm GI Common normals: Normal to inspection, nondistended, normoactive bowel sounds present Common normals: no CVA tenderness Back & Pelvis Common normals: no thoracic nor lumbar tenderness Extremity Common normals: normal to inspection, full ROM and no calf tenderness Neuro Common normals: CN's II-XII intact bilaterally, moves all extremities, no focal motor deficits and no sensory deficits noted Psych Common normals: mental status grossly normal, thought process normal, cooperative, affect normal and speech normal Discharge Plan Discharge Disposition: Home, Self-Care Condition: Good Assessment: CLINICALLY STABLE, REQUESTING DISCHARGE, HAS GOOD SUPPORTS AT [facility] Concerns: NONE Plan of Treatment: ROUTINE POST CARE AFTER PRIMARY CS FOR TWINS Discharge Medications: Continued promethazine 25 mg tablet 25 mg PO Q6H PRN (Reason: nausea and vomiting) Qty: 30 0RF valacyclovir 500 mg tablet 500 mg PO DAILY hydroxyzine HCl 25 mg tablet 25 mg PO DAILY pantoprazole [Protonix] 40 mg tablet,delayed release (DR/EC) 40 mg PO DAILY Complete 14 mg iron- 400 mcg tablet 1 tab PO DAILY Discontinued aspirin [Adult Aspirin Regimen] 81 mg tablet,delayed release (DR/EC) 81 mg PO DAILY iron 750 mg IV drip .weekly x 2 Activity: increase activity as tolerated Activity Detail: no sex six weeks, walking only exercise, may shower, no tub bath, sports bra 02/09, call for problem or concern, no swimming, only in car for doctor appointments for 4 weeks Diet: regular diet Print Language: Jamaican Patient Instructions: (DC) Forms: Portal Instructions Follow Up Appointments: twins to see special warfare boat operator in one week, patient needs incision check with Dr. Adames in one week Discharge location: home
[2023-07-05] MEDS: ACETAMINOPHEN 500 MG TABLET 1000 MG PO (17:38)
[2023-07-05 18:00] VITALS: O2SAT 97
[2023-07-05 18:42] VITALS: BP 100/63; PULSE 65
[2023-07-05] MEDS: CYCLOBENZAPRINE HCL 10 MG TABLET PO (19:55)
[2023-07-05] MEDS: ENOXAPARIN SODIUM 40 MG/0.4 ML SYRINGE SUBQ (21:40)
[2023-07-06 00:49] VITALS: BP 117/68; PULSE 65; TEMP 36.5
[2023-07-06] MEDS: ACETAMINOPHEN 500 MG TABLET 1000 MG PO ×2 (01:18→08:00)
[2023-07-06] MEDS: CYCLOBENZAPRINE HCL 10 MG TABLET PO ×2 (05:04→12:00)
[2023-07-06] MEDS: OXYCODONE HCL 5 MG TABLET 10 MG PO (05:04)
[2023-07-06] MEDS: DOCUSATE SODIUM 100 MG CAPSULE PO (08:01)
[2023-07-06] MEDS: OMEPRAZOLE 20 MG CAPSULE.DR PO (08:01)
[2023-07-06 08:06] VITALS: BP 114/75; PULSE 75
[2023-07-06 09:04] VITALS: TEMP 36.7
--- NOTE | 2023-07-08 09:11 | SWNOTE1 ---
Pt was discharged prior to SW being able to see her. Reason for consult was physician request.
== END 2023-07-06 13:30 | disposition home or self-care (01) | DRG 539 ==
PROVIDERS: Admitting Provider Obstetrics & Gynecology; Visit Provider Obstetrics & Gynecology
PROC: 10D00Z1 Extraction of Products of Conception, Low, Open Approach (ICD-10-PCS; CPT 59514; principal; 2023-07-03 08:45)
DX: O30.003 Twin pregnancy, unspecified number of placenta and unspecified number of amniotic sacs, third trimester (principal); Z3A.37 37 weeks gestation of pregnancy; Z37.2 Twins, both liveborn; O34.219 Maternal care for unspecified type scar from previous cesarean delivery; Z30.2 Encounter for sterilization; O99.844 Bariatric surgery status complicating childbirth; O98.32 Other infections with a predominantly sexual mode of transmission complicating childbirth; A60.00 Herpesviral infection of urogenital system, unspecified; O99.62 Diseases of the digestive system complicating childbirth; K21.9 Gastro-esophageal reflux disease without esophagitis; Z87.891 Personal history of nicotine dependence
CPT/HCPCS: 36415; 51702; 59025; 64488; 76810; 76818; 80307; 81001; 85025; 86850; 86900; 86901; 88302; 88307; 94667; 94668; 96365; 96372; 96375; 96376; J0131; J0665; J0690; J1100; J1650; J1885; J2274; J2371; J2405; J2590; J2765

== ENCOUNTER 2023-12-17 10:27 | Outpatient (OUT) | payer MEDICAID, SELFPAY ==
--- NOTE | 2023-12-17 10:28 | US_ITS ---
[address] [address] Patient Name: JADEN VELÁSQUEZ MRN: [id number] date: 1995 Sex: F Assigned Patient Location: [facility] Current Patient Location: [facility] Accession/Order Number: [id number] Exam Date: 12/17/2023 10:28 Report Date: 12/17/2023 11:40 At the request of: ODILON ARNETT Procedure: US pelvis w/ transvaginal EXAMINATION: US pelvis w/ transvaginal HISTORY: POLYCYSTIC OVARIAN SYDROME COMPARISON: No relevant comparison available. FINDINGS: Transabdominal and transvaginal images The uterus is normal in size, contour and echotexture measuring 9.6 x 4.5 x 6.2 cm. Anteverted, retroflexed. No focal myometrial mass The endometrium measures 1.1 cm, normal. The right ovary is normal measuring 2.9 x 1.7 x 2.1 cm. Normal color and Doppler flow. Multiple subcentimeter follicles The left ovary is normal measuring 2.8 x 2.5 x 3.2 cm. Normal color and Doppler flow. Multiple subcentimeter follicles No free fluid US/US pelvis w/ transvaginal IMPRESSION: Multiple bilateral subcentimeter follicles suggestive but not meeting criteria for polycystic ovarian morphology Electronically authenticated by: JAMEEL BURGOS Date: 12/17/2023 11:40
== END 2023-12-17 10:28 | disposition home or self-care (01) ==
LOC: NOMS 10:27
PROVIDERS: Visit Provider Obstetrics & Gynecology
DX: E28.2 Polycystic ovarian syndrome (principal)
CPT/HCPCS: 76830; 76856

== ENCOUNTER 2024-02-18 09:40 | Outpatient (OUT) | payer MEDICAID, SELFPAY ==
--- NOTE | 2024-02-17 14:11 | VEINCLINIC_ITS ---
Vital Signs 02/18/24 09:51 Height 5 ft 7 in Weight 117.934 kg BMI 40.7 BP 132/76 BP Location Left Brachial BP Position Sitting BP Cuff Size Large Adult BP Source Automatic Cuff Respiration 6 L Pulse 84 Pulse Source Monitor Pulse Oximetry (%) 98 Oxygen Delivery Method Room Air Comment The patient's blood pressure is elevated. Varicose Veins Patient is a 28 year old female in this day as a referral from Dr. Vaz with c/o bilateral leg pain for approximately 6 months bilaterally. 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 Additionally, patient gave to twins 7 months ago. Patient is a past patient of ours most recent was 2021 when she had endovenous laser ablation bilateral great saphenous veins. Patient continue sot wear bilateral leg knee high compression stockings since treatments in 2021. Patient has a family history of varicose vein disease involving her mother. Josh Jones MD personally performed the services described in this documentation, as scribed by Christopher Zavala RN in my presence and it is both accurate and complete. Christopher Jones RN, am scribing for, and in the presence of, Dr. Josh Abebe and in the presence of the patient. thigh: bilateral (symptoms equally bilaterally), knee: bilateral, calf: bilateral, ankle: bilateral and go: bilateral aching, cramping, dull and tender 8 6 months Worsened in recent months: Yes standing and walking elevating extremities, compression stockings and exercise Reports muscle spasms of leg and limb pain History of lower extremity trauma: No Superficial thrombophlebitis: No Family history of varicose veins: yes Has patient had previous lower extremity venous surgery: Yes Patient has previously received the following treatment(s) for lower extremity varicose veins: Reports vein ablation (Bilateral GSV) Does patient have a history of : yes Does patient intend to have future pregnancies: no Has patient had lower extremity venous scan with relux testing: Yes Support hose used: Yes Problems walking or doing physical activity: Yes How does it affect you: pain affects her work performance, often has to take extra breaks to sit Do you walk much: Yes Do you stand much: Yes Review of Systems ROS Narrative Josh Jones MD personally performed the services described in this documentation, as scribed by Christopher Zavala RN in my presence and it is both accurate and complete. I, Christopher Zavala RN, am scribing for, and in the presence of, Dr. Josh Abebe and in the presence of the patient. Status of ROS 10 or more systems reviewed and unremark able except as noted in history and below Cardiovascular Reports: edema Neurological Reports: weakness in [facility] History (Updated 02/18/24 @ 10:04 by Christopher Zavala) delivery delivered ?O82 - Encounter for delivery without indication (ICD-10) Obesity ?E66.9 - Obesity, unspecified (ICD-10) Varicose veins of bilateral lower extremities with pain ?I83.813 - Varicose veins of bilateral lower extremities with pain (ICD-10) Twin gestation in third trimester ?O30.003 - Twin , unspecified number of placenta and unspecified number of amniotic sacs, third trimester (ICD-10) Anemia ?D64.9 - Anemia, unspecified (ICD-10) Anxiety ?F41.9 - Anxiety disorder, unspecified (ICD-10) Surgical History (Updated 02/18/24 @ 10:04 by Christopher Zavala) H/O gastric sleeve ?Z90.3 - Acquired absence of stomach [part of] (ICD-10) H/O tubal ligation ?Z98.51 - Tubal ligation status (ICD-10) [place] teeth removed ?K08.409 - Partial loss of teeth, unspecified cause, unspecified class (ICD- 10) Hx of tonsillectomy ?Z90.89 - Acquired absence of other organs (ICD-10) Hx of cholecystectomy ?Z90.49 - Acquired absence of other specified parts of digestive tract (ICD- 10) H/O gastric bypass ?Z98.84 - Bariatric surgery status (ICD-10) Family History (Updated 02/18/24 @ 10:05 by Christopher Zavala) Other Deep vein thrombosis Family history of cancer Family history of diabetes mellitus Pain due to varicose veins of both lower extremities Social History (Updated 02/18/24 @ 10:06 by Christopher Zavala) Within the past year, how often did you have a drink containing alcohol: 2-4 times a month Smoking status: Former smoker Non-prescribed substance use: denies use Highest level of school completed/degree received: high school graduate Meds Home Medications and Allergies Home Medications ?Medication ?Instructions ?Recorded ?Confirmed ?Type promethazine 25 mg tablet 25 mg PO Q6H PRN nausea and 12/31/22 07/03/23 Rx vomiting #30 tabs hydroxyzine HCl 25 mg tablet 25 mg PO DAILY 05/05/23 07/03/23 History pantoprazole 40 mg tablet,delayed 40 mg PO DAILY 06/05/23 07/03/23 History release (Protonix) valacyclovir 500 mg tablet 500 mg PO DAILY 07/03/23 07/03/23 History famotidine 20 mg tablet (Acid 20 mg PO DAILY 02/18/24 02/18/24 History Controller) Allergies Allergy/AdvReac Type Severity Reaction Status Date / Time No Known Drug Allergies Allergy Verified 05/05/23 15:59 Exam Narrative Exam Narrative: Josh Jones MD personally performed the services described in this documentation, as scribed by Christopher Zavala RN in my presence and it is both accurate and complete. Christopher Jones RN, am scribing for, and in the presence of, Dr. Josh Abebe and in the presence of the patient. Constitutional Documenting provider has reviewed patient's vital signs: yes Common normals: oriented x3 Nutritional appearance: overweight Cardio Peripheral pulses: posterior tibial pulses present and dorsalis pedis pulses present Extremity Common normals: normal capillary refill General: edema Right lower extremity: lower leg Right lower leg: inspection and palpation Left lower extremity: lower leg Left lower leg: inspection and palpation Neuro Common normals: oriented x3 Results Imaging Venous US: Radiologist's impression: Bilateral leg reflux u/s reveals moderate venous insufficiency to remaining right GSV, severe bilateral SSV venous insufficiency with associated dilation, mild venous insufficiency with marked dilation right AASV which is very tortuous, bilateral leg branch saphenous truncal tributary varicosities. Josh Jones MD personally performed the services described in this documentation, as scribed by Christopher Zavala RN in my presence and it is both accurate and complete. Christopher Jones RN, am scribing for, and in the presence of, Dr. Josh Abebe and in the presence of the patient. Assessment and Plan Assessment and Plan (1) Varicose veins of bilateral lower extremities with pain: Plan Patient is to continue use of bilateral leg knee high compression stockings, rest, elevation of bilateral legs/feet. Patient to return for EVLTs of bilateral SSV, right AASV and remaining portion of right GSV. Once EVLTs complete, move forward with microfoam chemical ablation bilateral leg branch saphenous varicosities. IJosh MD personally performed the services described in this documentation, as scribed by Christopher Zavala RN in my presence and it is both accurate and complete. I, Christopher Zavala RN, am scribing for, and in the presence of, Dr. Josh Abebe and in the presence of the patient.
--- NOTE | 2024-02-17 14:29 | P.DS_ITS ---
Discharge Plan Discharge Disposition: Home, Self-Care Outpatient Diagnostics: VC Endovenous Ablation 1VeinRT (Routine) Timeframe: 2 Weeks Facility: [facility] - Location: [facility] Ordered By: Josh Abebe Plan of Treatment: EVLT of bilateral SSV, right AASV, right GSV followed by microfoam chemical ablation bilateral leg branch saphenous varicosities Print Language: Tajik Discharge Date/Time: 02/18/24 12:14
--- NOTE | 2024-02-18 09:41 | VEIN_ITS ---
Patient Name: JADEN VELÁSQUEZ MR#: [id number] : 1995 Exam Date: 02/18/2024 Ordering Doctor: DR JOSH ABEBE M.D. RADIOLOGY REPORT PROCEDURE: VC EXT VENOUS REFLUX JOVANA LMTD COMPARISON: None. INDICATIONS: I83.813 Bilateral painful varicose veins TECHNIQUE: Duplex imaging of the lower extremity to assess the deep and superficial venous system for the presence of deep or superficial venous incompetence and to document the location and severity of disease. The study includes evaluation of the great saphenous vein (GSV), anterior accessory saphenous vein (AASV) and small saphenous vein (SSV). Patient scanned in reverse Trendelenburg and standing. FINDINGS: RIGHT LOWER EXTREMITY: Saphenofemoral Junction Reflux: Yes 9.5mm 2.0 sec GSV: Diam (mm) Reflux/ Time (sec) Proximal Thigh 4.6 Yes 1.2 Mid Thigh N/A Distal Thigh 5.3 Yes 4.6 Prox Calf 5.2 Yes 4.2 Mid Calf 5.8 Yes 4.6 Saphenopopliteal Junction Reflux: 5.8mm Yes 0.7 SSV: Proximal Calf 5.5 Yes 3.9 Mid Calf 4.9 Yes 4.3 AASV: Proximal Thigh 9.4 Yes 1.5 Mid Thigh 5.1 Yes 0.5 Distal Thigh Thrombi: No acute or chronic thrombus. Compressibility: Normal. Flow: Mild deep venous reflux. Preforator: Prox/med calf off gastroc vein 5.4 mm with 1.6s reflux. Dist/med lower leg 2.6 mm with 2.4s reflux. Tech Note: Tortuous/discontinuous prox right AASV. Previously treated right GSV. Incompetent varicose vein proximal medial lower leg measures 5.9 mm with 3.4s reflux. Varicose vein mid lateral lower leg measures 4.3 mm with 1.3s reflux. Varicose vein proximal posterior calf measures 4.6 mm wtih 3.0s reflux. LEFT LOWER EXTREMITY: Saphenofemoral Junction Reflux: Yes 12.3 mm 2.9 sec GSV: Diam (mm) Reflux/Time (sec) Proximal Thigh 7.4 Yes 1.2 Mid Thigh N/A Distal Thigh N/A Prox Calf N/A Mid Calf N/A Saphenopopliteal Junction Relux: 7.8 mm Yes 0.8 SSV: Proximal Calf 7.2 Yes 1.2 Mid Calf 6.1 Yes 4.6 AASV: Not present Thrombi: No acute or chronic thrombus. Compressibility: Normal. Flow: Mild to moderate deep venous reflux. County Sheriff: Mid posterior calf 4.5 mm with 0.8s reflux. Tech Note: Decompressed proximal SSV. Previously treated left GSV. Incompetent varicose vein mid medial thigh measures 7.1 mm with 2.5s reflux. Varicose vein medial knee measures 7.1 mm with 4.6s reflux. Proximal medial calf varicose vein measures 6.0 mm with 4.4s reflux. CONCLUSION: 1. Moderate venous insufficiency with mild dilation of the remaining mid to distal right great saphenous vein 2. Severe bilateral small saphenous vein venous insufficiency with dilatation saphenopopliteal junction reflux 3. Mild venous insufficiency with marked dilatation right anterior accessory saphenous vein which is very tortuous 4. Bilateral deep vein reflux 5. Bilateral incompetent varicose veins Dictated by: Josh Abebe MD on 02/18/2024 at 10:48 Approved by: Josh Abebe MD on 02/18/2024 at 10:51
--- NOTE | 2024-02-18 09:41 | VEIN_ITS ---
Patient Name: JADEN VELÁSQUEZ MR#: [id number] : 1995 Exam Date: 02/18/2024 Ordering Doctor: DR JOSH ABEBE M.D. RADIOLOGY REPORT PROCEDURE: [facility] - OFFICE VISIT INITIAL COMPARISON: None. PROGRESS NOTES: 28-year-old female previously treated in 2021 at our facility. The patient had gastric sleeve surgery with significant weight loss followed by of for terminal twins 7 months ago. The patient's symptoms developed throughout her and continued after delivery. The patient complains of leg pain swelling and varicose veins exacerbated by prolonged sitting and standing and are all partially relieved by rest, leg elevation and compression stocking use. The patient denies any signs and symptoms to suggest arterial ischemia. The patient describes a family history significant for deep vein thrombus, cancer diabetes and varicose veins. Past surgical history significant for gastric sleeve, tubal ligation, tonsillectomy, cholecystectomy and gastric bypass. Past medical history significant for , obesity, varicose veins, anemia and anxiety. The patient drinks alcohol 2-4 times per month. The patient stop smoking years ago. No substance abuse reported. No history of deep venous thrombus or pulmonary embolus. See separate history and physical for medication list. Patient has previously had intravenous laser ablation of the bilateral great saphenous veins. The patient has worn compression stockings for years. Nursing notes were reviewed. After history and physical exam I discussed at length the pathophysiology of venous hypertension and possible treatments, therapies and strategies available. We discussed at length the importance of elevating the lower extremities above the level of the heart, increased physical activity and compression stocking use. We discussed conservative therapy with compression stockings. We discussed intravenous laser ablation micro foam chemical ablation at length. Risks benefits and alternatives were discussed with the patient. Ultrasound venous reflux study performed the same day was discussed at length with the patient. The report demonstrates moderate venous insufficiency in the portions of the mid to distal right great saphenous vein, severe bilateral great saphenous vein venous insufficiency with dilatation saphenous popliteal junction reflux. Mild venous insufficiency right anterior accessory saphenous vein which is tortuous and markedly dilated. Bilateral deep vein reflux. Bilateral incompetent varicose veins. PHYSICAL EXAM: The right leg demonstrates scattered varicose veins. No hemosiderin staining. No subcutaneous edema. No active ulceration. The left leg demonstrates moderate scattered varicose veins. Mild subcutaneous edema below the knee. No hemosiderin staining. No active ulceration Both thighs, legs and feet were symmetrically warm to the touch. Good posterior tibial and dorsalis pedis pulses were present bilaterally. VEIN/VC Facility EST Comprehensive IMPRESSION: 1. Right great saphenous vein venous insufficiency. Severe bilateral small saphenous vein venous insufficiency with dilatation saphenous popliteal junction reflux. Mild right anterior accessory saphenous vein venous insufficiency with dilatation 2. Mild right and moderate left lower extremity and com varicose veins 3. Mild left lower extremity subcutaneous edema 4. No definite flow significant arterial disease 5. CEAP: C3, Ep, As, Pr PLAN: 1. Endovenous laser ablation bilateral great saphenous veins with possible treatment of the right anterior accessory saphenous vein and possible treatment of the diseased portions of the right great saphenous vein 2. Micro foam chemical ablation mid to distal right great saphenous vein and incompetent varicose veins 3. Long-term use of bilateral 20 to 30 mm knee or thigh-high compression stockings 4. Continued weight loss, leg elevation and physical activity for symptomatic relief Nurse notes, history and physical were reviewed and confirmed, see attached forms. The nurse was present throughout the physical exam and consultation Dictated by: Josh Abebe MD on 02/18/2024 at 11:11 Approved by: Josh Abebe MD on 02/18/2024 at 11:18
[2024-02-18 09:51] VITALS: BP 132/76; PULSE 84; O2SAT 98; BMI 40.7
== END 2024-02-18 12:14 | disposition home or self-care (01) ==
LOC: VC 09:40
PROVIDERS: PCP Radiology Diagnostic Radiology; Visit Provider Radiology Diagnostic Radiology
DX: I83.813 Varicose veins of bilateral lower extremities with pain (principal)
CPT/HCPCS: 93970; G0463